=== PATIENT | male | born 1950 | race Caucasian/White ===

== ENCOUNTER 2016-07-25 12:24 | Emergency (ER) | payer BC, OTHER ==
[~2016-07-25] VITALS: Ht 170.2 cm; Wt 94.0 kg
[~2016-07-25 12:24] MED LIST: CINN1CAP2 PO; CYCL10TA6 PO; GLIM2TAB2 PO; HYDR-4383 PO; LOSA100T2 PO; METF1000 PO; MULTTAB58 PO; NAPR220T40 PO; PANT1TAB48 PO; PRAV40TA2 PO
[2016-07-25 12:38] VITALS: TEMP 36.8; Ht 170.2 cm; Wt 94.0 kg
[2016-07-25] MEDS ORDERED: ATOR-24 PO (12:56)
[2016-07-25] MEDS ORDERED: GLIM4TAB2 PO (12:56)
[2016-07-25] MEDS ORDERED: IBUP-1451 PO (12:56)
[2016-07-25] MEDS ORDERED: HYZ/10015 PO (12:56)
[2016-07-25] MEDS ORDERED: MELO7.5T5 PO (12:56)
[2016-07-25] MEDS ORDERED: BACL10TA PO (12:56)
[2016-07-25] MEDS ORDERED: AMLO-114 PO (12:56)
--- NOTE | 2016-07-25 13:53 | DIAGNOSTIC IMAGING REPORT ---
LEFT HIP UNILATERAL 2 VIEWS CLINICAL HISTORY: Left hip and groin pain COMPARISON: None. DISCUSSION: No fractures are visualized. The joint space appears well-preserved for age. There are no erosive or destructive changes. There is a small metallic density within the anterior soft tissues, of uncertain etiology. IMPRESSION: No fractures or destructive lesions identified. Small metallic density within the anterior soft tissues Electronically signed by: Omid Schneider M.D. 07/25/2016 1:52 PM Dictated Date/Time: 07/25/2016 1:51 PM
--- NOTE | 2016-07-25 13:55 | DIAGNOSTIC IMAGING REPORT ---
L-SPINE MIN 4 VIEWS ROUTINE CLINICAL HISTORY: Back pain with left leg radiculopathy COMPARISON STUDY: No previous studies for comparison. FINDINGS: No acute fractures or subluxations are visualized. There are degenerative changes with prominent osteophytes at the L2-3 level. IMPRESSION: 1. No acute fractures or subluxations 2. Degenerative changes most pronounced at the L2-3 level Electronically signed by: Omid Schneider M.D. 07/25/2016 1:53 PM Dictated Date/Time: 07/25/2016 1:52 PM
[2016-07-25] MEDS ORDERED: TRAM-10 PO (14:19)
[2016-07-25 14:30] VITALS: BP 169/91; PULSE 66; O2SAT 96
[2016-07-25] MEDS ORDERED: TRAMADOL HCL 50 MG TAB PO ONE (14:45)
--- NOTE | 2016-07-25 21:02 | EMERGENCY ROOM VISIT NOTE ---
History First contact with patient: 13:07 Chief Complaint: BACK PAIN Stated Complaint: BACK/SIDE PAIN History of Present Illness The patient is a 65 year old white male who presents to the Emergency Room with complaints of pain in his left low back that radiates around to his left groin. Patient states he carried and [place] fence [place] 2 [place]. He did not have any pain at that time. Over the next few days he developed increasing pain in his low back radiating around to the left hip and left groin. He has seen his chiropractor numerous times without improvement. He is also taking oral anti-inflammatories without improvement. No loss of bowel or bladder control. No symptoms on the right. Pain is worse with activity. He states he is just looking for something to relieve the pain so he can go back to work. No trauma to the back. His accompanies him today. Review of Systems REVIEW OF SYSTEM: HEENT: No dizziness, visual problems, hearing loss, or tinnitus. There is no difficulty swallowing and no oral lesions are present. PULMONARY: No cough, shortness of breath, sputum production or hemoptysis. CARDIOVASCULAR: No chest pain, palpitations, shortness of breath or peripheral edema. GASTROINTESTINAL: No diarrhea, constipation, nausea, vomiting, or abdominal pain. GENITOURINARY: No dysuria, frequency, urgency or nocturia. NEUROLOGIC: No weakness, muscle tenderness, epilepsy or history of neurological problems. MUSCULOSKELETAL: No history of joint tenderness/swelling. No history of arthritis or arthralgias. SKIN: No rashes or lesions. PSYCHIATRIC: No history of depression or mental illness. ENDOCRINE: No history of thyroid disorders, or abnormal hair growth. Past Medical/Surgical History Medical history: Significant for diabetes, hypertension, osteoarthritis, and GERD. Previous surgeries: Right shoulder rotator cuff repair Family History Significant for diabetes, heart disease, hypertension, and cancer. Parents are . Social History Smoking Status: Never Smoker Smokeless Tobacco Use: No Alcohol Use: occasionally Drug Use: none Marital Status: Housing Status: lives with family Occupation Status: employed Current/Historical Medications Scheduled Amlodipine (Norvasc), 10 MG PO DAILY Atorvastatin (Lipitor), 40 MG PO DAILY Baclofen (Lioresal), 10 MG PO TID Cinnamon (Cinnamon), 1,000 MG PO DAILY Glimepiride (Glimepiride), 1 TAB PO DAILY Hctz/Losartan (Hyzaar 25MG/100MG), 1 TAB PO DAILY Meloxicam (Mobic), 7.5 MG PO BID17 Metformin Hcl (Glucophage), 1,000 MG PO BID Multiple Vitamin (Multivitamin), 1 TAB PO DAILY Pantoprazole (Protonix), 40 MG PO DAILY Scheduled PRN Ibuprofen Tab (Motrin), 800 MG PO Q8H PRN for Pain Tramadol (Ultram), 1-2 TAB PO Q6H PRN for Pain Allergies Coded Allergies: No Known Allergies (Unverified , 07/25/16) Physical Exam Vital Signs Date Time Temp Pulse Resp B/P Pulse Ox O2 Delivery O2 Flow Rate FiO2 07/25/16 14:30 66 18 169/91 96 Room Air 07/25/16 14:08 63 186/95 97 Room Air 07/25/16 13:59 64 16 189/101 98 Room Air 07/25/16 12:38 36.8 72 18 171/100 97 Room Air Pain Rating (0-10): 8.0 Physical Exam Gen.: Well-developed, well-nourished, elderly white male, in no acute distress. Sitting on a bed. Alert and oriented. Obvious discomfort. Skin:Warm and dry with good turgor. No rashes or lesions. No ecchymosis or erythema. The patient is not diaphoretic. No abrasions. Musculoskeletal: Low back evaluation reveals no obvious asymmetry or deformity. He has focal pain with palpation over the lumbar vertebrae from L3 through S1. Pain extends into the left SI joint and wraps around to the left greater trochanter. He points to the L1-L2 dermatomes as his area of discomfort. I cannot reproduce it by palpating the groin. Supple motion of the left hip. It causes pain at his SI joint but not in the groin. Good internal and external rotation as well as hip flexion. Neurologic: Gross sensation is intact across the left leg by soft touch. DTRs are 2+ at the knee. Medical Decision & Procedures ER Provider Diagnostic Interpretation: Radiographic imaging obtained today of the left hip and lumbar spine was reviewed by me and read by radiology. No evidence of significant arthritic change in the left hip. Patient does have considerable arthritic change and spurring present at L2/L3. Mild foraminal narrowing at L4-L5 and L5-S1. Medications Administered Medications (Trade) Dose Ordered Sig/Adalberto Route Start Time Stop Time Status Last Admin Dose Admin Tramadol HCl (Ultram Tab) 100 mg NOW ONCE PO 07/25/16 14:45 07/25/16 14:46 DC 07/25/16 14:41 100 MG Ultram 2 tablets by mouth ED Course Patient and his were educated regarding today's findings. Conservative care measures were discussed. Radiographic imaging of the hip and lumbar spine were obtained. Patient does have considerable spurring at the L2-L3 level. This would correspond with his area of discomfort on the anterior left thigh. Symptoms also seem to involve the L1 dermatome though there is no significant bony impingement there. He was reassured that I do not think this is coming from his hip. [facility] to discuss any potential interventions. Call Tuesday for an appointment. He was given 2 tablets of Ultram 50 mg while in the ED. Additional prescription was provided. He may use Tylenol every 6 hours for breakthrough pain. Return to the ED for any loss of bowel or bladder control or uncontrolled pain. He was cautioned against any heavy lifting or excessive rotating of the trunk.\ Possibility of degenerative disc disease, nerve root impingement, compression fracture, muscle strain, and spurring were considered, lung others. Impression Primary Impression: Lumbar back pain with radiculopathy affecting left lower extre... Departure Information Dispostion Home / Self-Care Condition FAIR Prescriptions Tramadol (Ultram) 50 Mg Tab 1-2 TAB PO Q6H Y for Pain, #24 TAB For Initial Treatment Prov: Agus Castellanos,P.A. 07/25/16 Referrals Justin Uribe D.O. Forms HOME CARE DOCUMENTATION FORM, TYLENOL USE, IMPORTANT VISIT INFORMATION Patient Instructions My [facility] Additional Instructions [facility] this [facility] for further management and to discuss an MRI Ultram 1-2 tablets every 6 hours as needed for severe pain Add Tylenol 650 mg every 6 hours with food for breakthrough pain Gentle stretching daily Avoid heavy lifting Return to the ED for any acute changes or loss of bowel/bladder control
== END 2016-07-25 14:46 | disposition home or self-care (01) ==
LOC: C.EDB 12:27 → C.EDA 14:46
DX: M54.16 Radiculopathy, lumbar region (principal); E11.9 Type 2 diabetes mellitus without complications; I10 Essential (primary) hypertension; K21.9 Gastro-esophageal reflux disease without esophagitis; M19.90 Unspecified osteoarthritis, unspecified site; Z98.890 Other specified postprocedural states; Z79.899 Other long term (current) drug therapy; Z83.3 Family history of diabetes mellitus; Z82.49 Family history of ischemic heart disease and other diseases of the circulatory system; Z80.9 Family history of malignant neoplasm, unspecified

== ENCOUNTER 2017-01-14 02:04 | Emergency (ER) | payer OTHER ==
[~2017-01-14] VITALS: Ht 172.7 cm; Wt 93.3 kg
[~2017-01-14 02:04] MED LIST changes: +AMLO-114 PO; +ATOR-24 PO; +BACL10TA PO; -CYCL10TA6 PO; -GLIM2TAB2 PO; +GLIM4TAB2 PO; -HYDR-4383 PO; +HYZ/10015 PO; +IBUP-1451 PO; -LOSA100T2 PO; +MELO7.5T5 PO; -NAPR220T40 PO; -PRAV40TA2 PO; +TRAM-10 PO
[2017-01-14 02:10] VITALS: Ht 172.7 cm; Wt 93.3 kg
[2017-01-14] MEDS ORDERED: SODIUM CHLORIDE 0.9% 1000ML 1,000 ML IV STA (02:27)
--- NOTE | 2017-01-14 02:29 | EMERGENCY ROOM VISIT NOTE ---
History Report prepared by Deana: Estrella Moody Under the Supervision of: Dr. Denis Moya M.D. First contact with patient: 02:12 Chief Complaint: URINARY SYMPTOMS Stated Complaint: UTI SYMPTOMS History of Present Illness The patient is a 66 year old male who presents to the Emergency Room with complaints of persistent urinary symptoms that started a couple of days ago. The patient rates his pain a 7/10 in severity. The patient states that he hurt his back a week ago and ever since he has been having bowel and urinary problems. The patient notes that he has a history of back problems and the pain he is experiencing now is normal. He reports that since the back injury 1 week ago, he has not had many bowel movements. He states that his last bowel movement was 3 hours ago but "it was not very much". He notes that he experiences burning when urinating. The patient states that he feels pressure on his pelvis. The patient denies having a history of prostate problems. The patient notes that he typically gets up 2-3 times at night to urinate. He denies having a fever, nausea, vomiting, leg weakness, or chills. He also denies any loss of sensation around rectum. Source of History: patient Onset: 1 week ago Position: other (urinary/bowel symptoms) Symptom Intensity: 7/10 Quality: burning, other (constipation) Timing: other (persistent) Associated Symptoms: No fevers, No chills, No nausea, No vomiting Note: The patient denies leg weakness. Review of Systems See HPI for pertinent positives & negatives. A total of 10 systems reviewed and were otherwise negative. Past Medical & Surgical Past history of diabetes, high blood pressure, stomach problems, and ulcers. Family History Diabetes mellitus FHx: cancer FHx: heart disease Hypertension Social History Smoking Status: Never Smoker Alcohol Use: occasionally Drug Use: none Marital Status: Housing Status: lives with family Occupation Status: employed Current/Historical Medications Scheduled Amlodipine (Norvasc), 10 MG PO DAILY Atorvastatin (Lipitor), 40 MG PO DAILY Baclofen (Lioresal), 10 MG PO TID Cinnamon (Cinnamon), 1,000 MG PO DAILY Ciprofloxacin Hcl (Cipro), 500 MG PO BID Glimepiride (Glimepiride), 4 MG PO DAILY Hctz/Losartan (Hyzaar 25MG/100MG), 1 TAB PO DAILY Meloxicam (Mobic), 7.5 MG PO BID17 Metformin Hcl (Glucophage), 1,000 MG PO BID Multiple Vitamin (Multivitamin), 1 TAB PO DAILY Pantoprazole (Protonix), 40 MG PO DAILY Scheduled PRN Ibuprofen Tab (Motrin), 800 MG PO Q8H PRN for Pain Oxycodone Immediate Rel Tab (Roxicodone Ir), 1-2 TAB PO Q4H PRN for Severe Pain Allergies Coded Allergies: No Known Allergies (Unverified , 01/14/17) Physical Exam Vital Signs Date Time Temp Pulse Resp B/P (MAP) Pulse Ox O2 Delivery O2 Flow Rate FiO2 01/14/17 06:13 81 18 154/97 98 01/14/17 04:36 36.9 84 18 180/104 97 Room Air 01/14/17 03:32 77 18 165/92 99 Room Air 01/14/17 02:10 36.4 82 18 188/85 97 Room Air Physical Exam GENERAL: Patient is uncomfortable appearing and in mild distress. HEENT: No acute trauma, normocephalic atraumatic, mucous membranes moist, no nasal congestion, no scleral icterus. NECK: No stridor, no adenopathy, no meningismus, trachea is midline. LUNGS: No dyspnea. Clear to auscultation and equal bilaterally. No wheeze, no rhonchi. HEART: Regular rate and rhythm. No murmurs, rubs, gallops appreciated. ABDOMEN: Vague tenderness to suprapubic region. BACK: No midline tenderness, no CVA tenderness EXTREMITIES: Normal motion all extremities, no cyanosis, no edema. NEUROLOGIC: Alert and oriented, no acute motor or sensory deficits, no focal weakness, cranial nerves grossly intact. SKIN: No rash, no jaundice, no diaphoresis. Bedside Ultrasound: 50-100 cc of fluid within bladder. Questionable bladder wall thickening. Large mass of posterior bladder vs enlarged prostate. Medical Decision & Procedures ER Provider Diagnostic Interpretation: CT ABDOMEN & PELVIS With Contrast: Comparison: Noncontrast CT abdomen pelvis 07/19/2009 Diffusely enlarged prostate gland, invaginating into the base of the bladder. This is new from prior. Considerations include prostatitis and benign prostatic hypertrophy. Redemonstration of calcification of a tubular structure arising off what is presumed to be the gallbladder. This may represent dystrophic calcification inside an unusual phrygian cap. There is no pericholecystic inflammatory changes. The overall appearance is stable when compared to 07/19/2009. Normal appendix visualized. No bowel obstruction. Liver, spleen, pancreas, and kidneys are unremarkable. Mild atherosclerosis. Degenerative changes of spine. Laboratory Results 01/14/17 02:40 Red Blood Count 4.47, Mean Corpuscular Volume 90.2, Mean Corpuscular Hemoglobin 31.1, Mean Corpuscular Hemoglobin Concent 34.5, Mean Platelet Volume 10.3, Neutrophils (%) (Auto) 71.1, Lymphocytes (%) (Auto) 15.1, Monocytes (%) (Auto) 11.3, Eosinophils (%) (Auto) 1.8, Basophils (%) (Auto) 0.2, Neutrophils # (Auto ) 7.94, Lymphocytes # (Auto) 1.68, Monocytes # (Auto) 1.26, Eosinophils # (Auto ) 0.20, Basophils # (Auto) 0.02 01/14/17 02:40 Test 01/14/17 02:14 01/14/17 02:40 01/14/17 02:56 Urine Color YELLOW Urine Appearance CLEAR (CLEAR) Urine pH 7.0 (4.5-7.5) Urine Specific [place] 1.024 (1.000-1.030) Urine Protein NEG (NEG) Urine Glucose (UA) 3+ (NEG) Urine Ketones NEG (NEG) Urine Occult Blood NEG (NEG) Urine Nitrite NEG (NEG) Urine Bilirubin NEG (NEG) Urine Urobilinogen NEG (NEG) Urine Leukocyte Esterase NEG (NEG) Urine WBC (Auto) 10-30 /hpf (0-5) Urine RBC (Auto) 0-4 /hpf (0-4) Urine Hyaline Casts (Auto) 0 /lpf (0-5) Urine Epithelial Cells (Auto) 0-5 /lpf (0-5) Urine Bacteria (Auto) 2+ (NEG) White Blood Count 11.16 K/uL (4.8-10.8) Red Blood Count 4.47 M/uL (4.7-6.1) Hemoglobin 13.9 g/dL (14.0-18.0) Hematocrit 40.3 % (42-52) Mean Corpuscular Volume 90.2 fL (80-100) Mean Corpuscular Hemoglobin 31.1 pg (25-34) Mean Corpuscular Hemoglobin Concent 34.5 g/dl (32-36) Platelet Count 240 K/uL (130-400) Mean Platelet Volume 10.3 fL (7.4-10.4) Neutrophils (%) (Auto) 71.1 % Lymphocytes (%) (Auto) 15.1 % Monocytes (%) (Auto) 11.3 % Eosinophils (%) (Auto) 1.8 % Basophils (%) (Auto) 0.2 % Neutrophils # (Auto) 7.94 K/uL (1.4-6.5) Lymphocytes # (Auto) 1.68 K/uL (1.2-3.4) Monocytes # (Auto) 1.26 K/uL (0.11-0.59) Eosinophils # (Auto) 0.20 K/uL (0-0.5) Basophils # (Auto) 0.02 K/uL (0-0.2) RDW Standard Deviation 40.0 fL (36.4-46.3) RDW Coefficient of Variation 12.3 % (11.5-14.5) Immature Granulocyte % (Auto) 0.5 % Immature Granulocyte # (Auto) 0.06 K/uL (0.00-0.02) Est Creatinine Clear Calc Drug Dose 73.9 ml/min Estimated GFR () 83.2 Estimated GFR (Non- 71.8 BUN/Creatinine Ratio 17.2 (10-20) Calcium Level 9.3 mg/dl (8.5-10.1) C-Reactive Protein 7.08 mg/dl (0-0.29) Bedside Hemoglobin 12.9 g/dl (14.0-18.0) Bedside Hematocrit 38 % (42-52) Bedside Sodium 134 mEq/L (135-144) Bedside Potassium 3.4 mEq/L (3.3-5.0) Bedside Chloride 93 mEq/L (101-112) Bedside Total CO2 28 mEq/l (24-31) Anion Gap 18.0 mmol/L (16-25) Bedside Blood Urea Nitrogen 19 mg/dl (7-18) Bedside Creatinine 0.9 mg/dl (0.6-1.3) Bedside Glucose (other) 227 mg/dl (70-99) Bedside Ionized Calcium ([place]) 1.21 mmol/l (1.12-1.32) Laboratory results as reviewed by me. Medications Administered Medications (Trade) Dose Ordered Sig/Adalberto Route Start Time Stop Time Status Last Admin Dose Admin Sodium Chloride 1,000 ml @ 999 mls/hr Q1H1M STAT IV 01/14/17 02:27 01/14/17 03:27 DC 01/14/17 02:27 999 MLS/HR Hydromorphone HCl (Dilaudid Inj) 1 mg NOW STAT IV 01/14/17 03:48 01/14/17 03:49 DC 01/14/17 03:53 1 MG Ceftriaxone Sodium (Rocephin Inj) 1 gm NOW STAT IV 01/14/17 03:48 01/14/17 03:49 DC 01/14/17 03:54 1 GM Hydromorphone HCl (Dilaudid Inj) 1 mg NOW STAT IV 01/14/17 04:17 01/14/17 04:18 DC 01/14/17 04:35 1 MG Ciprofloxacin (Cipro Tab) 500 mg NOW STAT PO 01/14/17 05:36 01/14/17 05:38 DC 01/14/17 06:03 500 MG Oxycodone HCl (Roxicodone Immediate Rel 5MG Home Pack) 1 homepack UD ONCE PO 01/14/17 05:45 01/14/17 05:46 DC 01/14/17 06:03 1 HOMEPACK ED Course 0212: The patient was evaluated in room B10. A complete history and physical exam was performed. 0227: Sodium Chloride 1000 ml @ 999 mls/hr IV. 0348: Rocephin Inj 1 gm IV, Dilaudid Inj 1 mg IV. 0350: I reassessed the patient. He has acute urinary retention. He is unable to urinate. Increasing palpable mass suprapubic. He is agreeable to folly. 0417: Dilaudid Inj 1 mg IV. 0536: Cipro Tab 500 mg PO. 0545:Oxycodone HCI 1 homepack PO. 0546: Reevaluated the patient. Discussed results and discharge instructions: He verbalized understanding and agreement. The patient is ready for discharge. Medical Decision 66 yr old male with feeling of pelvic pressure, constipation and urinary hesitancy/burning over last few day. Essentially in retention though after significant forcing was able to urinate just prior to arrival. Vitals stable other than hypertension (advised follow up with PCP). With unusual symptoms, mass on US and urinary symptoms felt CT imaging reasonable. CT consistent with prostatitis. I did discuss evidence of gallbladder stones and cyst which he will discuss with his pcp and then possibly gen surg. For his prostatitis he is really just unable to urinate properly and I felt dixon indicated. Given IV Rocephin during this procedure. Will place on BID Cipro 500mg for 14 days with instructions that he may require 6 weeks of treatment which he should discuss with PCP/Urology. No evidence of sepsis and he is feeling much improved. Did require IV dilaudid for pain control and clearly uncomfortable. Long discussion on risks and restrictions narcotics. Advised Colace use. Reviewed at length symptoms requiring RTED for further evaluation. Stable at time of discharge. Medication Reconcilliation Current Medication List: was personally reviewed by me Blood Pressure Screening Patient's blood pressure: Elevated blood pressure Blood pressure disposition: Elevated BP felt to be situational, Referred to PCP Impression Primary Impression: Acute bacterial prostatitis Additional Impression: Acute urinary retention Scribe Attestation The scribe's documentation has been prepared under my direction and personally reviewed by me in its entirety. I confirm that the note above accurately reflects all work, treatment, procedures, and medical decision making performed by me. Departure Information Dispostion Home / Self-Care Prescriptions Oxycodone Immediate Rel Tab (ROXICODONE IR) 5 Mg Tab 1-2 TAB PO Q4H Y for Severe Pain, #15 TAB Prov: Denis Moya M.D. 01/14/17 Ciprofloxacin Hcl (CIPRO) 500 Mg Tab 500 MG PO BID for 14 Days, #28 TAB Prov: Denis Moya M.D. 01/14/17 Referrals Apolinar Wayne D.OMomo (PCP) Elizabeth Wilkerson MD Patient Instructions My [facility], Prostatitis Bacterial Additional Instructions We will initiate a 2 week course of Cipro to treat your infection. Often times a full 6 weeks of antibiotic therapy is indicated, thus you should discuss whether to do a full course with your primary care provider or Urologist. Please follow up with Urologist in 3-5 days for Dixon removal. If unable to do so you should be seen by your primary provider and if this is not possible return to ED for repeat evaluation. You should regardless be seen by a Urologist and Primary Provider in the near future. You have received a narcotic pain medication prescription. These medications may cause drowsiness and should not be used with other sedative medications. Do not drive, drink alcohol, perform dangerous activities, nor make important decisions after taking these medications. exterminator helper termite use or inappropriate use may lead to addiction. Use of a stool softener is advised. Problem Qualifiers
[2017-01-14] MEDS ORDERED: OPTIRAY 320 IV PRN (02:45)
[2017-01-14 02:55] LABS: BASO % 0.2 %; BASO ABS # 0.02 K/uL (0-0.2); COMPLETE YES; EOS % 1.8 %; HEMATOCRIT 40.3 % (42-52); IG% 0.5 %; LYMPH % 15.1 %; LYMPH ABS # 1.68 K/uL (1.2-3.4); MEAN CELL VOLUME 90.2 fL (80-100); MEAN CORPUSCULAR HEMOGLOBIN 31.1 pg (25-34); MEAN CORPUSCULAR HGB CONC 34.5 g/dl (32-36); MEAN PLATELET VOLUME 10.3 fL (7.4-10.4); MONO % 11.3 %; NEUT % 71.1 %; PLATELET COUNT 240 K/uL (130-400); RED BLOOD COUNT 4.47 M/uL (4.7-6.1); WHITE BLOOD COUNT 11.16 K/uL (4.8-10.8)
[2017-01-14 03:07] LABS: ISTAT CREATININE 0.9 mg/dl (0.6-1.3); ISTAT HEMOGLOBIN 12.9 g/dl (14.0-18.0); ISTAT IONIZED CALCIUM 1.21 mmol/l (1.12-1.32)
[2017-01-14 03:12] LABS: BUN/CREATININE RATIO 17.2 (10-20); C-REACTIVE PROTEIN 7.08 mg/dl (0-0.29); CALCIUM 9.3 mg/dl (8.5-10.1); CREATININE 1.06 mg/dl (0.60-1.40); POTASSIUM 3.4 mmol/L (3.5-5.1)
[2017-01-14 03:33] LABS: MANUAL MICROSCOPIC REQUIRED? NO; REVIEW REQ? NO; URINE APPEARANCE CLEAR (CLEAR); URINE BILIRUBIN NEG (NEG); URINE COLOR YELLOW; URINE EPITHELIAL CELL AUTO 0-5 /lpf (0-5); URINE NITRITE NEG (NEG); URINE SPECIFIC GRAVITY 1.024 (1.000-1.030); UROBILINOGEN NEG (NEG); ZZUR CULT IF INDIC CLEAN CATCH YES
[2017-01-14] MEDS ORDERED: CEFTRIAXONE SOD INJ 1 GM ADDVIAL IV STA (03:48)
[2017-01-14] MEDS ORDERED: HYDROmorphone INJ 1 MG/ML SYR IV STA ×2 (03:48→04:17)
[2017-01-14 04:36] VITALS: TEMP 36.9
[2017-01-14] MEDS ORDERED: CIPROFLOXACIN 500 MG TAB PO STA (05:36)
[2017-01-14] MEDS ORDERED: CIPR-255 PO (05:42)
[2017-01-14] MEDS ORDERED: OXYC1TAB3 PO (05:42)
[2017-01-14] MEDS ORDERED: OXYCODONE IR HOME PACK PO ONE (05:45)
[2017-01-14 06:13] VITALS: BP 154/97; PULSE 81; O2SAT 98
--- NOTE | 2017-01-14 07:44 | DIAGNOSTIC IMAGING REPORT ---
ABD/PELVIS IV CONTRAST ONLY HISTORY: 66 years-old Male pelvic discomfort, inability to urinate/bowel. ?Prostatitis acute pelvic pain with inability to urinate. Concern for prostatitis. Initial exam. COMPARISON: CT 07/19/2009 TECHNIQUE: Multiple axial CT images of the abdomen and pelvis were obtained following the intravenous administration of 93 mL Optiray 320. A dose lowering technique was used consistent with the principals of KATE. FINDINGS: Lung bases are generally clear with only minimal bibasilar atelectasis. There is no pneumoperitoneum. Imaged inferior cardiac chambers are mildly enlarged with coronary arterial calcifications. The liver, spleen, pancreas and adrenal glands are within normal limits. Cystic structure within the gallbladder fossa is again seen, 4.0 x 3.4 cm which appears similar to slightly decreased in size from comparison study. Gallstones are noted within the region of the collapsed gallbladder fundus and mid gallbladder lumen. These findings appear similar from study 07/19/2009. No intrahepatic biliary ductal dilation or inflammatory stranding to suggest acute cholecystitis. Kidneys and ureters are within normal limits. No renal calculi or hydronephrosis. Prostate is enlarged measuring up to 5.4 cm transversely with heterogeneous appearance of the parenchyma containing coarse central prosthetic calcifications extending superiorly into the base of the urinary bladder. Findings have progressed from prior study. Small fat filled left inguinal hernia. Moderate atherosclerosis of the abdominal aorta. No bulky adenopathy. Mildly prominent 9 mm right common iliac lymph node on image 277 series 3 is nonspecific and likely reactive. There is no bowel obstruction or focal bowel wall thickening. A few scattered diverticula are noted. No evidence of acute diverticulitis. Appendix is normal. Soft tissues are unremarkable. Bones appear intact. IMPRESSION: 1. Enlarged heterogeneous appearance of the prostate containing central coarse dystrophic calcifications suggests benign prostatic hyperplasia. Superimposed prostatitis would be difficult to exclude. Correlate with laboratory analysis. 2. Abnormal appearance of the gallbladder appears stable from 07/19/2009 with gallstones seen within an the collapsed portions of the gallbladder fundus and mid body suggesting a possible phrygian cap. No CT evidence of acute cholecystitis. 3. Normal CT appearance of the appendix. The above report was generated using voice recognition software. It may contain grammatical, syntax or spelling errors. Electronically signed by: Timbo Flores M.D. 01/14/2017 7:43 AM Dictated Date/Time: 01/14/2017 7:33 AM
== END 2017-01-14 06:15 | disposition home or self-care (01) ==
LOC: C.EDB 02:05
DX: N41.0 Acute prostatitis (principal); R33.9 Retention of urine, unspecified; E11.9 Type 2 diabetes mellitus without complications; I10 Essential (primary) hypertension; Z87.19 Personal history of other diseases of the digestive system; Z79.84 Long term (current) use of oral hypoglycemic drugs; Z79.899 Other long term (current) drug therapy; Z83.3 Family history of diabetes mellitus; Z80.9 Family history of malignant neoplasm, unspecified; Z82.49 Family history of ischemic heart disease and other diseases of the circulatory system

== ENCOUNTER 2017-07-01 12:09 | Emergency (ER) | payer OTHER ==
[~2017-07-01] VITALS: Ht 170.2 cm; Wt 93.6 kg
[~2017-07-01 12:09] MED LIST changes: +CIPR-255 PO; +OXYC1TAB3 PO; +PANT1TAB3 PO; -PANT1TAB48 PO; -TRAM-10 PO
[2017-07-01 12:17] VITALS: TEMP 36.3; Ht 170.2 cm; Wt 93.6 kg
[2017-07-01] MEDS ORDERED: KETOROLAC TROMETHAMINE 60 MG/2 ML VIAL IM STA (13:20)
[2017-07-01] MEDS ORDERED: OXYC-57 PO (13:27)
[2017-07-01] MEDS ORDERED: BACL1TAB PO (13:27)
[2017-07-01] MEDS ORDERED: MELO-84 PO (13:27)
[2017-07-01] MEDS ORDERED: METH4PAK PO (13:27)
--- NOTE | 2017-07-01 13:29 | EMERGENCY ROOM VISIT NOTE ---
ED Visit Note First contact with patient: 12:31 CHIEF COMPLAINT: Low back pain radiating into the right leg 1 day HISTORY OF PRESENT ILLNESS: Patient is a 66-year-old male who presents emergency department for evaluation of low back pain radiating into his right leg that started acutely yesterday. Patient does have a history of radicular low back pain, he states that he sees a chiropractor fairly regularly for back health maintenance. He admits that he has been ill with an upper respiratory illness, and was seen by his primary care doctor yesterday for this. He has been doing a lot of coughing, and is about finished with a prednisone taper. He was placed on doxycycline yesterday. He states that he was leaning over the sink washing his hands, when he felt a sharp pain in the midline of his low back , that spread across the low back. The pain has progressively begun to radiate into the right buttock, laterally over the right hip, into the right groin and down the right thigh. There is no numbness, tingling or weakness in the leg. He has begun walking with a cane due to his symptoms. He reports a similar episode of pain about a year ago when he was installing multiple fence posts on his property. Patient has tried ice, and a massage chair. He has not taken any medication for discomfort as of yet. He also has an [id number] stim machine but he has not used it. He denies any bowel or bladder incontinence. No falls or recent direct trauma. He rates his pain as 7/10. REVIEW OF SYSTEMS: Review of systems as per HPI. All other systems reviewed were negative. 10 systems reviewed. PMH: Electronic medical records are reviewed and summarized as above/below. See Problem List. SOCIAL HISTORY: Patient lives at home with his . Employed.. PHYSICAL EXAM: Vital Signs: Reviewed Nurse's notes. CONSTITUTIONAL: Patient is an uncomfortable appearing 66-year-old male who is awake and alert and sitting on the edge of the gurney in mild distress. There is significant discomfort with position changes. CARDIOVASCULAR: Regular rate and rhythm, with normal S1 and S2, no murmur or gallop or rub is heard. No carotid bruits auscultated. No JVD. Peripheral pulses easily palpable. RESPIRATORY: Breath sounds equal and clear to auscultation without wheezes, rales, or rhonchi heard. Full and equal chest expansion without accessory muscle use or retractions. ABDOMEN: Bowel sounds are present. Abdomen is soft, nontender and nondistended. INTEGUMENTARY: No lesions or rash, normal skin turgor. LYMPH: No lymphadenopathy. SPINE: Examination of the patient's back does not demonstrate any ecchymosis, abrasions or outward signs of trauma. No erythema, increased warmth or induration. Patient has very low midline discomfort to palpation over the low lumbar spine. There is no pain over the SI joint or the sciatic notch. He has increased pain with range of motion including rotation and flexion. EXTREMITIES: Leg lengths are symmetrical. Negative logroll bilaterally. Normal strength including dorsi-flexion and plantar flexion of the great toes and ankles and flexion and extension of the knees and flexion of the hips. Negative seated bilateral straight leg raise testing. Lower extremity DTRs are equal and symmetrical bilaterally. Distal pulses are easily palpable. Sensation light touch is intact over the lower extremities bilaterally. EMERGENCY DEPARTMENT COURSE: The patient was seen and assessed as above. His old records are reviewed. He does have a history of low back pain, with radiculopathy, he had x-rays here about a year ago which showed degenerative changes at the L2-L3 region. He has suffered an acute exacerbation of his pain. He does not have any physical exam findings are consistent with acute cord compression or cauda equina syndrome. He does not have any mechanism of injury consistent with trauma and therefore it was not felt that radiographs were indicated at this time. The patient was treated with IM Toradol and Decadron here. He will be placed on a course of prednisone, was given Percocet , baclofen, and Mobic to use for pain. He was advised that if his symptoms are not improving with this regimen he should follow-up with his primary care provider for further care and evaluation. He expressed understanding of this and was agreeable. The patient rated his pain an 8/10 at discharge. MEDICAL DECISION MAKING: I do not suspect acute compression syndrome, cauda equina, diskitis, epidural abscess, hematoma or neurovascular compromise. Medication reconciliation: I attest that I have personally reviewed the patient' s current medication list. Blood pressure screening: Patient was found to have a slightly elevated blood pressure due to circumstances. I do not believe that the patient requires hypertension monitoring. Patient was reviewed in the [facility] Prescription Drug Monitoring Program, and there were no red flags noted. Problem List Medical Problems: (1) Acute bacterial prostatitis Status: Resolved (2) Acute urinary retention Status: Resolved (3) Dyslipidemia Status: Chronic (4) Gastro-Esophageal Reflux Disease Without Esophagitis Status: Chronic (5) Hypertension Nos Status: Chronic (6) Lumbar back pain with radiculopathy affecting left lower extremity Status: Resolved (7) Lumbar back pain with radiculopathy affecting left lower extremity Status: Resolved (8) Type 2 Diabetes Mellitus Without Complications Status: Chronic Current/Historical Medications Scheduled Amlodipine (Norvasc), 10 MG PO DAILY Atorvastatin (Lipitor), 40 MG PO DAILY Baclofen (Lioresal), 10 MG PO TID Cinnamon (Cinnamon), 1,000 MG PO DAILY Ciprofloxacin Hcl (Cipro), 500 MG PO BID Glimepiride (Glimepiride), 4 MG PO DAILY Hctz/Losartan (Hyzaar 25MG/100MG), 1 TAB PO DAILY Meloxicam (Mobic), 7.5 MG PO BID17 Meloxicam (Mobic), 15 MG PO DAILY Metformin Hcl (Glucophage), 1,000 MG PO BID Methylprednisolone (Medrol Dosepak), 0 PO DAILY Multiple Vitamin (Multivitamin), 1 TAB PO DAILY Pantoprazole (Protonix), 40 MG PO DAILY Scheduled PRN Baclofen (Lioresal), 10 MG PO TID PRN for Muscle Spasms Ibuprofen Tab (Motrin), 800 MG PO Q8H PRN for Pain Oxycodone Immediate Rel Tab (Roxicodone Ir), 1-2 TAB PO Q4H PRN for Severe Pain Oxycodone/Acetaminophen 5MG/325MG (Percocet 5MG/325MG), 1-2 TABS PO Q4 PRN for Pain Allergies Coded Allergies: No Known Allergies (Unverified , 01/14/17) Vital Signs Date Time Temp Pulse Resp B/P (MAP) Pulse Ox O2 Delivery O2 Flow Rate FiO2 07/01/17 14:14 89 16 147/89 99 07/01/17 12:17 36.3 84 20 159/94 98 Room Air Medications Administered Medications (Trade) Dose Ordered Sig/Adalberto Route Start Time Stop Time Status Last Admin Dose Admin Ketorolac Tromethamine (Toradol Inj) 60 mg NOW STAT IM 07/01/17 13:20 07/01/17 13:21 DC 07/01/17 14:04 60 MG Dexamethasone Sodium Phosphate (Dexamethasone Inj Pf) 10 mg NOW ONCE IM 07/01/17 13:30 07/01/17 13:31 DC 07/01/17 14:04 10 MG Departure Information Impression Primary Impression: Low back pain Prescriptions Methylprednisolone (MEDROL DOSEPAK) 4 Mg Pepito 0 PO DAILY, #1 PKT Once daily as directed. Prov: Anna Valencia PA 07/01/17 Baclofen (LIORESAL) 10 Mg Tab 10 MG PO TID Y for Muscle Spasms, #30 TAB Prov: Anna Valencia PA 07/01/17 Meloxicam (MOBIC) 15 Mg Tab 15 MG PO DAILY, #30 TAB Prov: Anna Valencia PA 07/01/17 Oxycodone/Acetaminophen 5MG/325MG (PERCOCET 5MG/325MG) Tab 1-2 TABS PO Q4 Y for Pain, #30 TAB For Initial Treatment Prov: Anna Valencia PA 07/01/17 Referrals Apolinar Wayne D.OMomo (PCP) Patient Instructions [facility] Additional Instructions Stop the remainder of your Prednisone from your physician. Medrol Dosepak: Once daily until the prescription is finished. It is best to take this earlier in the day as some patients note occasional difficulty falling asleep when taken in the late evening. Baclofen 10 mg: Take 1 pills 3 times daily as needed for muscle spasms. Avoid alcohol, operating machinery or dangerous equipment, working on ladders or roofs , DRIVING, or situations where being under the influence may be dangerous. Oxycodone/Acetaminophen (Percocet) 5/325mg: Take 1-2 pills every four hours for breakthrough pain. Avoid alcohol, operating machinery or dangerous equipment, working on ladders or roofs, DRIVING, or situations where being under the influence may be dangerous. It is recommended to use an [id number] stool softener such as Colace, 100mg twice daily while taking this medication to avoid constipation. After you have completed the Medrol Dosepak start Mobic 15 mg 1 tablet daily with food, take this regularly for at least 2 weeks. Rest and avoid heavy lifting until your symptoms resolve and then gradually return to full activity. A good rule of thumb is if it hurts your back to perform a certain activity, then it should be avoided until you are healthy again. A heating pad, warm compresses, or a hot shower may help with tight muscles and can be done several times a day as needed. Continue current medications. Return to the ER immediately for any numbness, tingling, severe pain, loss of control of your bowels or bladder, inability to walk, or as needed. Follow up with your primary care physician within 3-5 days for a recheck of your current condition.
[2017-07-01] MEDS ORDERED: DEXAMETHASONE **PF** INJ 10 MG/ML VIAL IM ONE (13:30)
[2017-07-01 14:14] VITALS: BP 147/89; PULSE 89; O2SAT 99
== END 2017-07-01 14:12 | disposition home or self-care (01) ==
LOC: C.EDB 12:10 → C.EDD 14:12
DX: M54.5 Low back pain (principal); E78.5 Hyperlipidemia, unspecified; K21.9 Gastro-esophageal reflux disease without esophagitis; I10 Essential (primary) hypertension; E11.9 Type 2 diabetes mellitus without complications; Z79.84 Long term (current) use of oral hypoglycemic drugs; Z79.899 Other long term (current) drug therapy

== ENCOUNTER 2017-07-11 09:55 | Inpatient (IN) | payer OTHER ==
[~2017-07-11] VITALS: Ht 170.2 cm; Wt 92.2 kg
[~2017-07-11 09:55] MED LIST changes: +BACL1TAB PO; +MELO-84 PO; +METH4PAK PO; +OXYC-57 PO
[2017-07-11] MEDS ORDERED: TAMS0.4C38 PO (10:16)
[2017-07-11] MEDS ORDERED: FINA5TAB PO (10:16)
[2017-07-11] MEDS ORDERED: SODIUM CHLORIDE 0.9% 1000ML 500 ML IV STA (10:26)
[2017-07-11 10:42] LABS: BASO % 0.1 %; BASO ABS # 0.01 K/uL (0-0.2); EOS % 0.5 %; EOS ABS # 0.07 K/uL (0-0.5); HEMATOCRIT 43.7 % (42-52); HEMOGLOBIN 15.6 g/dL (14.0-18.0); IG# 0.11 K/uL (0.00-0.02); LYMPH % 10.6 %; LYMPH ABS # 1.41 K/uL (1.2-3.4); MEAN CELL VOLUME 89.4 fL (80-100); MEAN CORPUSCULAR HEMOGLOBIN 31.9 pg (25-34); MEAN CORPUSCULAR HGB CONC 35.7 g/dl (32-36); MEAN PLATELET VOLUME 11.5 fL (7.4-10.4); MONO % 7.4 %; MONO ABS # 0.98 K/uL (0.11-0.59); NEUT % 80.6 %; NEUT ABS # 10.75 K/uL (1.4-6.5); PLATELET COUNT 142 K/uL (130-400); RED CELL DISTRIBUTION WIDTH CV 12.6 % (11.5-14.5); RED CELL DISTRIBUTION WIDTH SD 40.9 fL (36.4-46.3); WHITE BLOOD COUNT 13.33 K/uL (4.8-10.8)
[2017-07-11] MEDS ORDERED: OPTIRAY 320 IV PRN (10:45)
[2017-07-11 10:46] LABS: INR 1.1 (0.9-1.1); PTT PATIENT 27.9 SECONDS (21.0-31.0)
[2017-07-11 10:56] LABS: ALBUMIN 3.1 gm/dl (3.4-5.0); ALT/SGPT 78 U/L (12-78); AST/SGOT 41 U/L (15-37); BLOOD UREA NITROGEN 24 mg/dl (7-18); CALCIUM 8.4 mg/dl (8.5-10.1); CARBON DIOXIDE 21 mmol/L (21-32); CREATININE 1.61 mg/dl (0.60-1.40); GLUCOSE 536 mg/dl (70-99); POTASSIUM 4.1 mmol/L (3.5-5.1); SODIUM 132 mmol/L (136-145); TOTAL PROTEIN 6.6 gm/dl (6.4-8.2)
[2017-07-11] MEDS ORDERED: NovoLIN-R INSULIN PER UNIT CHARGE IV STA (10:58)
--- NOTE | 2017-07-11 11:03 | DIAGNOSTIC IMAGING REPORT ---
SINGLE VIEW CHEST CLINICAL HISTORY: Dyspnea. FINDINGS: An AP, portable, upright chest radiograph is obtained. No prior studies are available for comparison at the time of dictation. The examination is degraded by portable technique and patient rotation. The cardiomediastinal silhouette is unremarkable. The lungs and pleural spaces are clear. No pneumothorax is seen. The bony thorax is grossly intact. IMPRESSION: No acute cardiopulmonary abnormality. Electronically signed by: Bradley Jensen M.D. 07/11/2017 11:02 AM Dictated Date/Time: 07/11/2017 11:01 AM
[2017-07-11 11:04] LABS: ALKALINE PHOSPHATASE 115 U/L (45-117)
[2017-07-11] MEDS ORDERED: SODIUM CHLORIDE 0.9% 500ML 500 ML IV STA (11:21)
[2017-07-11] MEDS ORDERED: PIPERACILLIN/TAZOBACTAM 4.5 GM/100ML D5W IV STA (11:46)
--- NOTE | 2017-07-11 12:08 | DIAGNOSTIC IMAGING REPORT ---
CT ANGIOGRAM OF THE CHEST CLINICAL HISTORY: Dyspnea. COMPARISON STUDY: Chest x-ray dated 07/11/2017. Abdominal CT dated 07/19/2009. TECHNIQUE: Following the IV administration of 107 cc of Optiray 320, CT angiogram of the chest was performed from the upper abdomen to the thoracic inlet utilizing the pulmonary embolus protocol. Images are reviewed in the axial, sagittal, and coronal planes. 3-D MIPS images are created and assessed. IV contrast was administered without complication. A dose lowering technique was utilized adhering to the principles of ALARA. CT DOSE: 563.59 mGy.cm FINDINGS: Thyroid: Imaged portions of the thyroid gland are normal in size and attenuation. Thoracic aorta: There is mild atherosclerotic calcification of the thoracic aorta, which is normal in caliber and demonstrates standard 3-vessel arch anatomy. No dissection is seen. Pulmonary vasculature: The pulmonary trunk is normal in caliber. There is a saddle pulmonary embolus with extensive bilateral pulmonary emboli. Thrombus is seen within the left main pulmonary artery extended into the left upper and left lower lobe pulmonary arteries into segmental and subsegmental branches. Thrombus is also seen extending into the right upper, right middle, and right lower lobe pulmonary arteries into segmental and subsegmental branches. Heart: The heart is top normal in size and there is trace pericardial effusion. Reflux of contrast into the IVC and hepatic veins is nonspecific and can be seen in the setting of cardiac dysfunction. Lungs and pleural spaces: Evaluation of the lung parenchyma is degraded by respiratory motion artifact. A fat-containing Bochdalek hernia is seen at the left lung base. No airspace consolidation or pleural effusion is identified. A 5 mm pulmonary nodule seen at the left lung base image #22. A 3 mm left lower lobe nodule is seen on image #28. These have been present dating back to 2009 and are of doubtful significance. The trachea and central airways are patent. Mediastinum: There is no mediastinal lymphadenopathy. Janell: Clear. Axillae: There is no axillary lymphadenopathy. Upper abdomen: There is a small hiatal hernia. The visualized upper abdominal viscera is otherwise within normal limits. Skeletal structures: No lytic or blastic bony lesions are seen. IMPRESSION: 1. Saddle pulmonary embolus with extensive bilateral pulmonary emboli as above. 2. There is no airspace consolidation or pleural effusion. 3. Reflux of contrast into the IVC and hepatic veins is nonspecific and can be seen in the setting of cardiac dysfunction. Electronically signed by: Bradley Jensen M.D. 07/11/2017 12:06 PM Dictated Date/Time: 07/11/2017 12:01 PM
[2017-07-11] MEDS ORDERED: HEPARIN SOD (PORCINE) 1000 UNIT/ML 10 ML VIAL IV STA (12:56)
[2017-07-11] MEDS ORDERED: ICU ELECTROLYTE REPLACEMENT PROTOCOL PRN (13:30)
[2017-07-11] MEDS ORDERED: ICU PROTOCOL FOR HYPERGLYCEMIA PRN (13:30)
[2017-07-11] MEDS ORDERED: ACETAMINOPHEN 325 MG TAB PO PRN (13:30)
[2017-07-11] MEDS: HEPARIN 25,000 UNIT/500ML D5W 500 ML IV SCH (13:38)
[2017-07-11 13:40] LABS: INFLUENZA A PCR Neg for Influ A (NEG); INFLUENZA B PCR Neg for Influ B (NEG)
[2017-07-11] MEDS ORDERED: INSULIN IV INFUSION PROTOCOL SCH (14:00)
[2017-07-11] MEDS ORDERED: ASPI-320 PO (14:14)
[2017-07-11 14:19] LABS: HEP C IGG 13 YRS+OLDER_RFLX NEG (NEG)
--- NOTE | 2017-07-11 14:43 | EMERGENCY ROOM VISIT NOTE ---
History Report prepared by Deana: Garth Mckeon Under the Supervision of: Dr. Bradley Chao M.D. First contact with patient: 10:16 Chief Complaint: SHORTNESS OF BREATH Stated Complaint: SHORTNESS OF BREATH History of Present Illness The patient is a 66 year old male who presents to the Emergency Room with complaints of constant shortness of breath beginning 10 days ago. He also complains of fatigue, generalized weakness, and non-productive cough. He states that he has been having muscle spasms in his back recently. The patient's symptoms are worsened with exertion. He notes that it takes him a long time to catch his breath. He is not on supplemental oxygen at home. The patient denies chest pain, chills or fevers. He has no pulmonary history. He was seen by his PCP for his symptoms four days ago, and has not heard anything about his results (discharged on Prednisone and an antibiotic). The patient notes that he already had some Prednisone from a previous visit to urgent care. He has used an inhaler at home, but states that nothing has improved his symptoms. He notes that he has not been sleeping well at night. The patient denies recent travel, or history of blood clots. He states that he has not been eating or drinking well recently. He feels dehydrated. Source of History: patient Onset: 10 days ago Quality: other (shortness of breath) Timing: constant Modifying Factors (Relieving): other (none) Associated Symptoms: + cough (non-productive), + fatigue, + weakness ( generalized), No fevers, No chills, No chest pain Review of Systems See HPI for pertinent positives & negatives. A total of 10 systems reviewed and were otherwise negative. Past Medical & Surgical Medical Problems: (1) Barretts esophagus (2) BPH (benign prostatic hyperplasia) (3) DM type 2 (diabetes mellitus, type 2) (4) Dyslipidemia (5) Hypertension Surgical Problems: (1) H/O shoulder surgery (2) History of appendectomy (3) History of tonsillectomy and adenoidectomy Family History Diabetes mellitus FHx: cancer FHx: heart disease Hypertension Social History Smoking Status: Former Smoker Alcohol Use: occasionally Drug Use: none Marital Status: Housing Status: lives with family Occupation Status: employed Current/Historical Medications Scheduled Amlodipine (Norvasc), 10 MG PO DAILY Aspirin (Aspirin EC Low Dose), 81 MG PO DAILY Atorvastatin (Lipitor), 40 MG PO DAILY Cinnamon (Cinnamon), 1,000 MG PO DAILY Finasteride (Proscar), 5 MG PO DAILY Glimepiride (Glimepiride), 4 MG PO DAILY Hctz/Losartan (Hyzaar 25MG/100MG), 1 TAB PO DAILY Metformin Hcl (Glucophage), 1,000 MG PO BID Multiple Vitamin (Multivitamin), 1 TAB PO DAILY Pantoprazole (Protonix), 40 MG PO DAILY Tamsulosin Hcl (Flomax), 0.4 MG PO DAILY Scheduled PRN Baclofen (Lioresal), 10 MG PO TID PRN for Muscle Spasms Allergies Coded Allergies: No Known Allergies (Unverified , 07/11/17) Physical Exam Vital Signs Date Time Temp Pulse Resp B/P (MAP) Pulse Ox O2 Delivery O2 Flow Rate FiO2 07/11/17 11:00 104 18 127/110 95 Nasal Cannula 2.0 07/11/17 10:38 90 Room Air 07/11/17 10:22 107 07/11/17 10:05 110 20 147/87 91 Room Air Physical Exam GENERAL: Patient is in no acute distress. HEENT: No acute trauma, normocephalic atraumatic, mucous membranes moist, no nasal congestion, no scleral icterus. NECK: No stridor, no adenopathy, no meningismus, trachea is midline. LUNGS: No respiratory distress. Equal breath sounds bilaterally. No crackles. Scant wheezing at both bases. HEART: Tachycardic with a regular rhythm. No murmurs. ABDOMEN: Soft, nontender, bowel sounds positive, no hernias, no peritonitis. EXTREMITIES: No cyanosis or edema, full range of motion of all the joints without pain or difficulty, no signs for acute trauma. NEUROLOGIC: Oriented x 3, no acute motor or sensory deficits, no focal weakness. SKIN: No rash, no jaundice, no diaphoresis. Medical Decision & Procedures ER Provider Diagnostic Interpretation: Radiology results as stated below per my review and radiologist interpretation: CT ANGIOGRAM OF THE CHEST FINDINGS: Thyroid: Imaged portions of the thyroid gland are normal in size and attenuation. Thoracic aorta: There is mild atherosclerotic calcification of the thoracic aorta, which is normal in caliber and demonstrates standard 3-vessel arch anatomy. No dissection is seen. Pulmonary vasculature: The pulmonary trunk is normal in caliber. There is a saddle pulmonary embolus with extensive bilateral pulmonary emboli. Thrombus is seen within the left main pulmonary artery extended into the left upper and left lower lobe pulmonary arteries into segmental and subsegmental branches. Thrombus is also seen extending into the right upper, right middle, and right lower lobe pulmonary arteries into segmental and subsegmental branches. Heart: The heart is top normal in size and there is trace pericardial effusion. Reflux of contrast into the IVC and hepatic veins is nonspecific and can be seen in the setting of cardiac dysfunction. Lungs and pleural spaces: Evaluation of the lung parenchyma is degraded by respiratory motion artifact. A fat-containing Bochdalek hernia is seen at the left lung base. No airspace consolidation or pleural effusion is identified. A 5 mm pulmonary nodule seen at the left lung base image #22. A 3 mm left lower lobe nodule is seen on image #28. These have been present dating back to 2009 and are of doubtful significance. The trachea and central airways are patent. Mediastinum: There is no mediastinal lymphadenopathy. Janell: Clear. Axillae: There is no axillary lymphadenopathy. Upper abdomen: There is a small hiatal hernia. The visualized upper abdominal viscera is otherwise within normal limits. Skeletal structures: No lytic or blastic bony lesions are seen. IMPRESSION: 1. Saddle pulmonary embolus with extensive bilateral pulmonary emboli as above. 2. There is no airspace consolidation or pleural effusion. 3. Reflux of contrast into the IVC and hepatic veins is nonspecific and can be seen in the setting of cardiac dysfunction. Electronically signed by: Bradley Jensen M.D. 07/11/2017 12:06 PM SINGLE VIEW CHEST FINDINGS: An AP, portable, upright chest radiograph is obtained. No prior studies are available for comparison at the time of dictation. The examination is degraded by portable technique and patient rotation. The cardiomediastinal silhouette is unremarkable. The lungs and pleural spaces are clear. No pneumothorax is seen. The bony thorax is grossly intact. IMPRESSION: No acute cardiopulmonary abnormality. Electronically signed by: Bradley Jensen M.D. 07/11/2017 11:02 AM Laboratory Results 07/11/17 10:25 Red Blood Count 4.89, Mean Corpuscular Volume 89.4, Mean Corpuscular Hemoglobin 31.9, Mean Corpuscular Hemoglobin Concent 35.7, Mean Platelet Volume 11.5, Neutrophils (%) (Auto) 80.6, Lymphocytes (%) (Auto) 10.6, Monocytes (%) (Auto) 7.4, Eosinophils (%) (Auto) 0.5, Basophils (%) (Auto) 0.1, Neutrophils # (Auto) 10.75, Lymphocytes # (Auto) 1.41, Monocytes # (Auto) 0.98, Eosinophils # (Auto) 0.07, Basophils # (Auto) 0.01 07/11/17 10:25 Test 07/11/17 10:25 07/11/17 10:36 07/11/17 11:01 White Blood Count 13.33 K/uL (4.8-10.8) Red Blood Count 4.89 M/uL (4.7-6.1) Hemoglobin 15.6 g/dL (14.0-18.0) Hematocrit 43.7 % (42-52) Mean Corpuscular Volume 89.4 fL (80-100) Mean Corpuscular Hemoglobin 31.9 pg (25-34) Mean Corpuscular Hemoglobin Concent 35.7 g/dl (32-36) Platelet Count 142 K/uL (130-400) Mean Platelet Volume 11.5 fL (7.4-10.4) Neutrophils (%) (Auto) 80.6 % Lymphocytes (%) (Auto) 10.6 % Monocytes (%) (Auto) 7.4 % Eosinophils (%) (Auto) 0.5 % Basophils (%) (Auto) 0.1 % Neutrophils # (Auto) 10.75 K/uL (1.4-6.5) Lymphocytes # (Auto) 1.41 K/uL (1.2-3.4) Monocytes # (Auto) 0.98 K/uL (0.11-0.59) Eosinophils # (Auto) 0.07 K/uL (0-0.5) Basophils # (Auto) 0.01 K/uL (0-0.2) RDW Standard Deviation 40.9 fL (36.4-46.3) RDW Coefficient of Variation 12.6 % (11.5-14.5) Immature Granulocyte % (Auto) 0.8 % Immature Granulocyte # (Auto) 0.11 K/uL (0.00-0.02) Prothrombin Time 11.1 SECONDS (9.0-12.0) Prothromb Time International Ratio 1.1 (0.9-1.1) Activated Partial Thromboplast Time 27.9 SECONDS (21.0-31.0) Partial Thromboplastin Ratio 1.1 Anion Gap 13.0 mmol/L (3-11) Estimated GFR () 50.2 Estimated GFR (Non- 43.3 BUN/Creatinine Ratio 15.2 (10-20) Calcium Level 8.4 mg/dl (8.5-10.1) Total Bilirubin 1.0 mg/dl (0.2-1) Aspartate Amino Transf (AST/SGOT) 41 U/L (15-37) Alanine Aminotransferase (ALT/SGPT) 78 U/L (12-78) Alkaline Phosphatase 115 U/L (45-117) Troponin I 0.071 ng/ml (0-0.045) Total Protein 6.6 gm/dl (6.4-8.2) Albumin 3.1 gm/dl (3.4-5.0) Globulin 3.5 gm/dl (2.5-4.0) Albumin/Globulin Ratio 0.9 (0.9-2) Beta-Hydroxybutyric Acid 4.69 mg/dL (0.2-2.81) Thyroid Stimulating Hormone (TSH) 2.020 uIu/ml (0.300-4.500) Hepatitis B Surface Antigen NEG (NEG) Hepatitis C Antibody NEG (NEG) Lactic Acid Level 2.6 mmol/L (0.4-2.0) Influenza Type A (RT-PCR) Neg for Influ A (NEG) Influenza Type B (RT-PCR) Neg for Influ B (NEG) Laboratory results reviewed by me. Medications Administered Medications (Trade) Dose Ordered Sig/Adalberto Route Start Time Stop Time Status Last Admin Dose Admin Sodium Chloride 500 ml @ 999 mls/hr Q31M STAT IV 07/11/17 10:26 07/11/17 10:56 DC 07/11/17 10:52 999 MLS/HR Insulin Human Regular (novoLIN-R U-100 PER UNIT) 10 units NOW STAT IV 07/11/17 10:58 07/11/17 10:59 DC 07/11/17 10:58 10 UNITS Sodium Chloride 500 ml @ 999 mls/hr Q31M STAT IV 07/11/17 11:21 07/11/17 11:51 DC 07/11/17 12:01 999 MLS/HR Piperacillin Sod/ Tazobactam Sod (Zosyn Iv) 4.5 gm NOW STAT IV 07/11/17 11:46 07/11/17 11:47 DC 07/11/17 11:46 4.5 GM Heparin Sodium/ Dextrose 500 ml @ 28 mls/hr [id number] IV 07/11/17 13:00 08/10/17 12:59 07/11/17 13:38 28 MLS/HR Heparin Sodium (Porcine) (Heparin Iv Bolus) 6,000 unit NOW STAT IV 07/11/17 12:56 07/11/17 12:57 DC 07/11/17 13:35 6,000 UNIT ECG Per My Interpretation Indication: SOB/dyspnea Rate (beats per minute): 110 Rhythm: sinus tachycardia Findings: T-wave inversion (Anterior), other (No ST elevations. No PVCs. ) Comparison ECG Date: June 26, 2013 Change: T-wave changes are new. ED Course 1020: The patient was evaluated in room C3. A complete history and physical exam was performed. 1026: Ordered Sodium Chloride 500 ml @ 999 mls/hr IV. 1058: Ordered Novolin-R U-100 per unit 10 units IV. 1100: I updated the patient on his test results. 1121: Ordered Sodium Chloride 500 ml @ 999 mls/hr IV. 1146: Ordered Zosyn 4.5 gm IV. 1235: Upon reexamination the patient is resting comfortably. I discussed results and treatment plan with the patient. He verbalizes agreement and understanding. I spoke with Radha ARGUETA of the [facility] Hospitalist Service. We discussed the patient's results and findings. The patient will be evaluated by [facility] for further management. 1300: Ordered Heparin Sodium/Dextrose IV. Medical Decision The patient is a 66 year old male who presents to the ED with complaints of shortness of breath. Differential diagnoses considered include pneumonia, bronchitis, CHF, PE, anemia, electrolyte imbalance, influenza, failed outpatient treatment, cardiac ischemia and NH. There is a mild leukocytosis at 13,000, this could be consistent with infection or his steroid use recently. No concerning anemia. Renal panel testing shows some renal insufficiency with a creatinine of 1.6. Glucose was quite high at over 500. No hepatitis or coagulopathy. Blood cultures are pending. Lactic acid level was slightly elevated, this could be consistent with sepsis or just dehydration. Chest x-ray showed no pneumonia, pneumothorax or CHF. EKG showed a sinus tachycardia with some anterior T-wave inversions-these T-wave findings were new. Troponin was slightly elevated consistent with cardiac injury or strain. Chest CT showed a saddle pulmonary embolus. The patient received IV saline, IV insulin. He received IV Zosyn and then was given a heparin bolus IV and placed on a heparin drip. The patient requires a hospital stay. I spoke with the application trainer on-call. I spoke with the on-call hospitalist. I talked to the patient and his significant other about the findings. Certainly, the pulmonary embolus finding explains the dyspnea, the troponin elevation, the EKG changes. I suspect the higher blood sugar was from his steroid use. Medication Reconcilliation Current Medication List: was personally reviewed by me Blood Pressure Screening Patient's blood pressure: Elevated blood pressure Blood pressure disposition: Elevated BP felt to be situational Consults Time Called: 1235 Consulting Physician: Dr. Reynolds - Critical Care Returned Call: [phone] Discussed the patient's case. The patient will be evaluated for further management in the ICU. Additional Consults: Time Called: 1328 Consulted Physician: Radha Peterson [facility] Hospitalist Returned Call: [phone] Additional Comments: Discussed the patient's case. The patient will be evaluated for further management. Impression Primary Impression: Saddle pulmonary embolus Additional Impressions: Acute electrocardiogram changes Hyperglycemia Critical Care I have personally spent greater than 40 minutes of critical care time in the direct management of this patient. This includes bedside care, interpretation of diagnostic studies, and testing, discussion with consultants, patient, and family members, and other required patient management activities. This 40 minutes is in excess of all separately billable procedures. Scribe Attestation The scribe's documentation has been prepared under my direction and personally reviewed by me in its entirety. I confirm that the note above accurately reflects all work, treatment, procedures, and medical decision making performed by me. Departure Information Dispostion Being Evaluated By Hospitalist Referrals Apolinar Wayne D.O. (PCP) Patient Instructions My [facility] Problem Qualifiers
[2017-07-11] MEDS ORDERED: AMLODIPINE BESYLATE 5 MG TAB PO ONE (15:15)
[2017-07-11] MEDS ORDERED: LOSARTAN/HCTZ 50-12.5 EA TAB PO ONE (15:15)
[2017-07-11 15:42] VITALS: BP 177/100; PULSE 91; TEMP 36.6; BMI 32.2
[2017-07-11 15:46] VITALS: BMI 32.2
[2017-07-11] MEDS ORDERED: MODERATE STRESS LEVEL ONE (15:50)
[2017-07-11] MEDS ORDERED: INSULIN PROTOCOL GOAL RANGE ONE (15:51)
[2017-07-11 16:00] VITALS: BP 180/114; PULSE 88; TEMP 36.8; O2SAT 96
--- NOTE | 2017-07-11 16:14 | History and Physical ---
History & Physical Date & Time of Service: Jul 11, 2017 ~ 13:45 Chief Complaint: Shortness of breath Primary Care Physician: Apolinar Wayne D.O. History of Present Illness 66-year-old male who presents the ED with shortness of breath. Patient reports his symptoms began about 3 weeks ago. He also has had a dry nonproductive cough. He has been evaluated as an outpatient as well as in the ED for this complaint. Patient has been on courses of antibiotics and steroids without any improvement in his symptoms. He also was started on nebulizer and inhaler which he used fairly frequently yesterday and reports no improvement in his symptoms. Patient reports shortness of breath with minimal exertion. He also has been easily fatigued recently. Patient remains very active and works full- time. He denies chest pain and palpitations. No lightheadedness, dizziness, diaphoresis, or syncopal events. He denies fever and chills. No abdominal pain , nausea, vomiting, diarrhea. He denies any urinary symptoms. Patient denies any recent long travel. In the ED, patient was found to have a saddle pulmonary embolus with extensive bilateral pulmonary emboli. On labs, he is found to be hyperglycemic, MARIA ALEJANDRA, and mildly elevated troponin. EKG shows T-wave inversions in anterior leads. Patient is saturating well on 2 L of oxygen, is mildly tachycardic in the 100s, BP is stable. Patient was started on IV heparin. Past Medical/Surgical History Medical Problems: (1) Barretts esophagus Status: Chronic (2) BPH (benign prostatic hyperplasia) Status: Chronic (3) DM type 2 (diabetes mellitus, type 2) Status: Chronic (4) Dyslipidemia Status: Chronic (5) Hypertension Status: Chronic Surgical Problems: (1) H/O shoulder surgery Status: Chronic (2) History of appendectomy Status: Chronic (3) History of tonsillectomy and adenoidectomy Status: Chronic Family History Diabetes mellitus FATHER FH: brain cancer SISTER Stroke FATHER No family history of clotting disorders Social History Smoking Status: Former Smoker Alcohol Use: occasionally Immunizations History of Influenza Vaccine: Yes Influenza Vaccine Date: Feb 01, 2017 History of Tetanus Vaccine?: Yes Tetanus Immunization Date: Apr 21, 2010 History of Pneumococcal: Yes Pneumococcal Date: Oct 23, 2015 Allergies Coded Allergies: No Known Allergies (Unverified , 07/11/17) Home Medications Scheduled Amlodipine (Norvasc), 10 MG PO DAILY Aspirin (Aspirin EC Low Dose), 81 MG PO DAILY Atorvastatin (Lipitor), 40 MG PO DAILY Cinnamon (Cinnamon), 1,000 MG PO DAILY Finasteride (Proscar), 5 MG PO DAILY Glimepiride (Glimepiride), 4 MG PO DAILY Hctz/Losartan (Hyzaar 25MG/100MG), 1 TAB PO DAILY Metformin Hcl (Glucophage), 1,000 MG PO BID Multiple Vitamin (Multivitamin), 1 TAB PO DAILY Pantoprazole (Protonix), 40 MG PO DAILY Tamsulosin Hcl (Flomax), 0.4 MG PO DAILY Scheduled PRN Baclofen (Lioresal), 10 MG PO TID PRN for Muscle Spasms Review of Systems ROS per HPI, all other systems reviewed and negative Physical Exam Vital Signs Date Time Temp Pulse Resp B/P (MAP) Pulse Ox O2 Delivery O2 Flow Rate FiO2 07/11/17 15:42 36.6 91 16 177/100 Room Air 07/11/17 15:13 92 16 97 07/11/17 14:18 36.5 07/11/17 13:44 93 07/11/17 11:00 104 18 127/110 95 Nasal Cannula 2.0 07/11/17 10:38 90 Room Air 07/11/17 10:22 107 07/11/17 10:05 110 20 147/87 91 Room Air General Appearance: WD/WN, no apparent distress Head: normocephalic, atraumatic Eyes: normal inspection, EOMI, sclerae normal ENT: hearing grossly normal, + pertinent finding (Mucous membranes moist) Neck: supple, no JVD, trachea midline Respiratory/Chest: lungs clear, normal breath sounds, no respiratory distress, + pertinent finding (Shortness of breath with minimal exertion) Cardiovascular: regular rate, rhythm, no edema, normal peripheral pulses Abdomen/GI: normal bowel sounds, non tender, soft, no organomegaly Extremities/Musculoskelatal: normal inspection, no calf tenderness, normal capillary refill Neurologic/Psych: no motor/sensory deficits, alert, normal mood/affect, oriented x 3 Skin: normal color, warm/dry Diagnostics Laboratory Results Results Past 24 Hours Test 07/11/17 10:25 07/11/17 10:36 07/11/17 11:01 07/11/17 14:02 Range/Units White Blood Count 13.33 4.8-10.8 K/uL Red Blood Count 4.89 4.7-6.1 M/uL Hemoglobin 15.6 14.0-18.0 g/dL Hematocrit 43.7 42-52 % Mean Corpuscular Volume 89.4 80-100 fL Mean Corpuscular Hemoglobin 31.9 25-34 pg Mean Corpuscular Hemoglobin Concent 35.7 32-36 g/dl Platelet Count 142 130-400 K/uL Mean Platelet Volume 11.5 7.4-10.4 fL Neutrophils (%) (Auto) 80.6 % Lymphocytes (%) (Auto) 10.6 % Monocytes (%) (Auto) 7.4 % Eosinophils (%) (Auto) 0.5 % Basophils (%) (Auto) 0.1 % Neutrophils # (Auto) 10.75 1.4-6.5 K/uL Lymphocytes # (Auto) 1.41 1.2-3.4 K/uL Monocytes # (Auto) 0.98 0.11-0.59 K/uL Eosinophils # (Auto) 0.07 0-0.5 K/uL Basophils # (Auto) 0.01 0-0.2 K/uL RDW Standard Deviation 40.9 36.4-46.3 fL RDW Coefficient of Variation 12.6 11.5-14.5 % Immature Granulocyte % (Auto) 0.8 % Immature Granulocyte # (Auto) 0.11 0.00-0.02 K/uL Prothrombin Time 11.1 9.0-12.0 SECONDS Prothromb Time International Ratio 1.1 0.9-1.1 Activated Partial Thromboplast Time 27.9 21.0-31.0 SECONDS Partial Thromboplastin Ratio 1.1 Sodium Level 132 136-145 mmol/L Potassium Level 4.1 3.5-5.1 mmol/L Chloride Level 98 98-107 mmol/L Carbon Dioxide Level 21 21-32 mmol/L Anion Gap 13.0 3-11 mmol/L Blood Urea Nitrogen 24 7-18 mg/dl Creatinine 1.61 0.60-1.40 mg/dl Estimated GFR () 50.2 Estimated GFR (Non- 43.3 BUN/Creatinine Ratio 15.2 10-20 Random Glucose 536 70-99 mg/dl Calcium Level 8.4 8.5-10.1 mg/dl Total Bilirubin 1.0 0.2-1 mg/dl Aspartate Amino Transf (AST/SGOT) 41 15-37 U/L Alanine Aminotransferase (ALT/SGPT) 78 12-78 U/L Alkaline Phosphatase 115 45-117 U/L Troponin I 0.071 0-0.045 ng/ml Total Protein 6.6 6.4-8.2 gm/dl Albumin 3.1 3.4-5.0 gm/dl Globulin 3.5 2.5-4.0 gm/dl Albumin/Globulin Ratio 0.9 0.9-2 Beta-Hydroxybutyric Acid 4.69 0.2-2.81 mg/dL Thyroid Stimulating Hormone (TSH) 2.020 0.300-4.500 uIu/ml Hepatitis B Surface Antigen NEG NEG Hepatitis C Antibody NEG NEG Lactic Acid Level 2.6 0.4-2.0 mmol/L Influenza Type A (RT-PCR) Neg for Influ A NEG Influenza Type B (RT-PCR) Neg for Influ B NEG Bedside Glucose 139 70-99 mg/dl Test 07/11/17 14:15 Range/Units Microbiology Results 07/11/17 Blood Culture, Received Pending 07/11/17 Blood Culture, Received Pending 07/11/17 MRSA DNA Surveillance Screen, Received Pending Diagnostic Radiology CTA CHEST IMPRESSION: 1. Saddle pulmonary embolus with extensive bilateral pulmonary emboli as above. 2. There is no airspace consolidation or pleural effusion. 3. Reflux of contrast into the IVC and hepatic veins is nonspecific and can be seen in the setting of cardiac dysfunction. CXR IMPRESSION: No acute cardiopulmonary abnormality. Impression Assessment and Plan SADDLE PULMONARY EMBOLUS, BILATERAL PULMONARY EMBOLI -Admit to ICU -Patient presenting with increasing shortness of breath 3 weeks; in the ED, CTA chest showing saddle pulmonary embolus with extensive bilateral pulmonary emboli -Saturating well on 2 L of oxygen, vital signs stable -Started on heparin drip in the ED, will continue with -No clear risk factors identified; no recent travel, current non-smoker, no family history of clotting disorders -Obtain hypercoagulable workup -Check echocardiogram to evaluate for right-sided heart strain -BL SANDRA Dopplers -Case discussed with Dr. Reynolds MARIA ALEJANDRA -Likely dehydration due to hyperglycemia in combination with ARB/HCTZ use -Will hold losartan and hydrochlorothiazide, start Normosol 100 cc/hour -Consider renal vascular studies to evaluate for clot ELEVATED TROPONIN -Likely demand ischemia from acute PE/saddle pulmonary embolus -EKG shows T-wave inversions anteriorly -No reports of chest pain -Initial troponin 0 0.071, will continue to trend -Resting echocardiogram HYPERTENSION -BPs elevated in ED -Likely due to anxiety/missing medications this morning -We will give home dose of amlodipine for now -Holding losartan and HCTZ as above -Discussed with Dr. Reynolds, would like to avoid aggressive BP lowering at this time DIABETES -Blood sugars recently elevated due to use of steroids -S/P 10 units regular insulin in ED, insulin drip ordered by ICU team -Hold oral agents -Hgb A1c 9.0 12/2016 DYSLIPIDEMIA -Continue statin BPH -Continue finasteride and tamsulosin DVT PROPHYLAXIS -On heparin drip DISPOSITION -In my clinical judgment this beneficiary meets acute admission criteria, established by [facility], that includes being hospitalized through two midnights. ADDENDUM: I have seen and examined the patient and agree with the assessment and plan above. Historically, the patient reports being sedentary 2/2 a back spasm that caused him to be bedbound for a couple of days and subsequently had a bout of bronchitis which caused him malaise. He has had a recent colonoscopy , is taking no meds that increase the risk for DVT/PE, denies any recent leg injury, and denies any known hypercoagulable disorder in his family. His clot burden is extensive with a saddle PE, mobile clot extending into the R atrium, and superficial femoral DVT. He currently denies pain in his chest or legs. Per ICU staff, they will be keeping him here for now after discussion with the specialists at [facility]. The patient and his are both comfortable with that. Physical exam is unremarkable including no respiratory distress or conversational dyspnea on 2L NC, no JVD, clear lungs, no heart murmurs, rubs or gallops, no swelling or pain in calves. He did have some enlarged superficial veins on the LLE which he says was normal for him. He is hypertensive, but otherwise hemodynamically stable at this time. He will remain on a heparin drip and IVF for now in the ICU. DO Venkat Advanced Directives Existing Living Will: No Existing Power of Transformer Coil Winder: No Resuscitation Status VTE Prophylaxis Will order VTE Prophylaxis: Yes
--- NOTE | 2017-07-11 16:40 | ECHOCARDIOGRAM REPORT ---
*NOTICE TO RECEIVING CONSTITUTION PARTY AGENCY This information is strictly Confidential and protected under [place] law. [place] law prohibits you from making any further disclosure of this information unless further disclosure is expressly permitted by the written consent of the person to whom it pertains or is authorized by law. A general authorization for the release of medical or other information is not sufficient for this purpose. Hospital accepts no responsibility if the information is made available to any other person, INCLUDING THE PATIENT. Interpretation Summary * Name: JADE VALENCIA Study Date: 07/11/2017 03:31 PM BP: 147/87 mmHg * Patient Location: [facility] HR: 93 * : 1950 (M/d/yyyy) Gender: Male Height: 67 in * Age: 66 yrs Ethnicity: [place] Weight: 200 lb * Ordering Physician: Silviano Reynolds * Referring Physician: Self, Referred * Performed By: Venus Patricia RDCS * * Reason For Study: Pulmonary Embolism * BSA: 2.0 m2 * The study was technically adequate. * There is no comparison study available. * -- Conclusions -- * The right ventricle is severely dilated. * The right ventricular systolic function is severely reduced. * The right atrium is moderately dilated. 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 * There is moderate tricuspid regurgitation. * The estimated systolic pulmonary arterial pressure is 73 mmHg. * Flattened septum is consistent with RV pressure/volume overload. * Dilated inferior vena cava with reduced collapsability with sniff indicates an elevated right atrial pressure of 15 mmHg * Ejection Fraction = 50-55%. Procedure Details * A complete two-dimensional transthoracic echocardiogram was performed (2D, M-mode, Doppler and color flow Doppler). Left Ventricle * The left ventricle is normal in size. * There is mild concentric left ventricular hypertrophy. * Ejection Fraction = 50-55%. * Left ventricular systolic function is normal. * Flattened septum is consistent with RV pressure/volume overload. Right Ventricle * The right ventricle is severely dilated. * The right ventricular systolic function is severely reduced. Atria * The left atrial size is normal. * A thrombus is seen in the right atrium. 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 * The right atrium is moderately dilated. * There is no evidence of atrial septal defect, but resolution does not allow assessment for a patent foramen ovale. Mitral Valve * The mitral valve is normal. * There is no mitral valve stenosis. * Significant mitral regurgitation is absent. Tricuspid Valve * The tricuspid valve is normal. * There is no tricuspid stenosis. * There is moderate tricuspid regurgitation. * The estimated systolic pulmonary arterial pressure is 73 mmHg. Aortic Valve * The aortic valve is trileaflet. * Aortic stenosis is absent. * There is no significant aortic regurgitation. Pulmonic Valve * The pulmonary valve is not well seen, but the Doppler examination is normal without significant regurgitation or stenosis. Great Vessels * The aortic root is normal size. Pericardium/Pleural * There is no pericardial effusion. Great Vessels * Dilated inferior vena cava with reduced collapsability with sniff indicates an elevated right atrial pressure of 15 mmHg Left Ventricular Diastolic Function * Pulse wave TDI of the anterior and posterior mitral annulas demonstrates abnormal LV relaxation MMode 2D Measurements and Calculations IVSd 1.3 cm IVSs 1.4 cm LVIDd 3.7 cm LVIDs 2.6 cm LVPWd 1.3 cm LVPWs 2.0 cm IVS/LVPW 0.99 FS 29.8 % EDV(Teich) 57.6 ml ESV(Teich) 24.4 ml EF(Teich) 57.7 % EDV(cubed) 50.1 ml ESV(cubed) 17.4 ml EF(cubed) 65.3 % % IVS thick 8.8 % % LVPW thick 53.4 % LV mass(C)d 159.6 grams LV mass(C)dI 78.9 grams/m\S\2 LV mass(C)s 158.9 grams LV mass(C)sI 78.6 grams/m\S\2 SV(Teich) 33.3 ml SI(Teich) 16.5 ml/m\S\2 SV(cubed) 32.8 ml SI(cubed) 16.2 ml/m\S\2 Ao root diam 3.4 cm Ao root area 9.3 cm\S\2 ACS 1.5 cm LVAd ap4 23.3 cm\S\2 LVLd ap4 7.9 cm EDV(MOD-sp4) 59.9 ml EDV(sp4-el) 58.5 ml LVAs ap4 15.0 cm\S\2 LVLs ap4 7.0 cm ESV(MOD-sp4) 30.3 ml ESV(sp4-el) 27.5 ml EF(MOD-sp4) 49.5 % EF(sp4-el) 52.9 % LVAd ap2 25.1 cm\S\2 LVLd ap2 8.3 cm EDV(MOD-sp2) 68.7 ml EDV(sp2-el) 64.6 ml LVAs ap2 16.6 cm\S\2 LVLs ap2 7.2 cm ESV(MOD-sp2) 33.9 ml ESV(sp2-el) 32.5 ml EF(MOD-sp2) 50.7 % EF(sp2-el) 49.6 % LVLd %diff 4.6 % EDV(MOD-bp) 63.6 ml LVLs %diff 3.3 % ESV(MOD-bp) 31.8 ml EF(MOD-bp) 50.1 % SV(MOD-sp4) 29.6 ml SI(MOD-sp4) 14.7 ml/m\S\2 SV(MOD-sp2) 34.8 ml SI(MOD-sp2) 17.2 ml/m\S\2 SV(MOD-bp) 31.9 ml SI(MOD-bp) 15.8 ml/m\S\2 SV(sp4-el) 31.0 ml SI(sp4-el) 15.3 ml/m\S\2 SV(sp2-el) 32.0 ml SI(sp2-el) 15.8 ml/m\S\2 Doppler Measurements and Calculations MV E max kendall 81.2 cm/sec MV A max kendall 35.9 cm/sec MV E/A 2.3 MV dec time 0.23 sec Ao V2 max 123.3 cm/sec Ao max PG 6.1 mmHg Ao max PG (full) 3.1 mmHg LV V1 max PG 3.0 mmHg LV V1 max 86.4 cm/sec PA V2 max 63.6 cm/sec PA max PG 1.6 mmHg TR max kendall 364.7 cm/sec
[2017-07-11] MEDS ORDERED: INSULIN ASPART 100 UNITS/ML 3 ML PEN SC SCH (17:15)
[2017-07-11] MEDS ORDERED: NURSING VERBAL MED ORDER ONE (17:15)
[2017-07-11] MEDS: NORMOSOL R 1,000 ML IV SCH (17:40)
--- NOTE | 2017-07-11 17:54 | DIAGNOSTIC IMAGING REPORT ---
VENOUS DOPPLER LWR EXT BILA HISTORY: Pain. Pulmonary emboli. known PE COMPARISON STUDY: None. FINDINGS: Right leg is negative for deep venous thrombosis. The left leg shows evidence for acute deep venous thrombosis within the mid to distal femoral vein. There is also involvement of the left posterior tibial veins. IMPRESSION: 1. Acute deep venous thrombosis of the left leg extending from the left mid femoral vein inferiorly to the left posterior tibial veins. 2. Normal venous evaluation right leg. The above report was generated using voice recognition software. It may contain grammatical, syntax or spelling errors. Electronically signed by: Allen Stoner M.D. 07/11/2017 5:53 PM Dictated Date/Time: 07/11/2017 5:52 PM
--- NOTE | 2017-07-11 17:56 | DIAGNOSTIC IMAGING REPORT ---
DUPLEX PORTAL HEPATIC VEINS CLINICAL HISTORY: r/o budd chiari thrombus thrombus TECHNIQUE: Venous and arterial Doppler COMPARISON STUDY: None FINDINGS: Normal vascular flow is seen in an antegrade fashion involving all hepatic and portal venous structures. Antegrade flow is present in the hepatic arterial vessels. IMPRESSION: Normal study. Blood flow is confirmed in all major vessels in a normal antegrade direction The above report was generated using voice recognition software. It may contain grammatical, syntax or spelling errors. Electronically signed by: Allen Stoner M.D. 07/11/2017 5:54 PM Dictated Date/Time: 07/11/2017 5:53 PM
[2017-07-11 18:00] VITALS: BP 177/100; PULSE 88; TEMP 36.8; O2SAT 97
--- NOTE | 2017-07-11 18:03 | Critical Care Consultation ---
Critical Care Consultation Date of Consultation: Jul 11, 2017. Attending Physician: Laurita Gunter M.D. Reason for Consultation: Saddle pulmonary emboli History of Present Illness 66-year-old male presents with his . He states that about 2-3 weeks ago he thought that he had a "cold" mostly consistent of a dry cough. He saw his primary care doctor for the same about 4 days ago and was placed on a combination of antibiotics, prednisone, and albuterol. None of this seemed to work. During the same 2-3 week time period he had an exacerbation of his chronic low back pain and muscle spasms. 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 Yesterday he attempted some yard work for about 10 minutes but became short of breath and too fatigued to continue. He denies any chest pain or pressure or other chest symptoms throughout this time. No known fevers, nausea vomiting diarrhea, abdominal pain, or other focal pains or concerns. He did not take any Tylenol, Motrin, or other antipyretics recently. He denies any leg swelling or known prior blood clots. His only other acute concerns some mild difficulty voiding and says that may be related to his ongoing prostate issues. No other acute patient or concerns. Past Medical/Surgical History PMH: Prostatitis, HLD, GERD, HTN, lumbar back pain, DM type 2 PSH: Shoulder surgery. Family History Diabetes mellitus FATHER FH: brain cancer SISTER Stroke FATHER Social History Smoking Status: Former Smoker Alcohol Use: occasionally Housing Status: lives with family Allergies Coded Allergies: No Known Allergies (Unverified , 07/11/17) Home Medications Scheduled Amlodipine (Norvasc), 10 MG PO DAILY Aspirin (Aspirin EC Low Dose), 81 MG PO DAILY Atorvastatin (Lipitor), 40 MG PO DAILY Cinnamon (Cinnamon), 1,000 MG PO DAILY Finasteride (Proscar), 5 MG PO DAILY Glimepiride (Glimepiride), 4 MG PO DAILY Hctz/Losartan (Hyzaar 25MG/100MG), 1 TAB PO DAILY Metformin Hcl (Glucophage), 1,000 MG PO BID Multiple Vitamin (Multivitamin), 1 TAB PO DAILY Pantoprazole (Protonix), 40 MG PO DAILY Tamsulosin Hcl (Flomax), 0.4 MG PO DAILY Scheduled PRN Baclofen (Lioresal), 10 MG PO TID PRN for Muscle Spasms Current Inpatient Medications Current Inpatient Medications Medications (Trade) Dose Ordered Sig/Adalberto Route Start Time Stop Time Status Last Admin Dose Admin Ioversol (Optiray 320) 125 ml UD PRN IV 07/11/17 10:45 07/15/17 10:44 Heparin Sodium/ Dextrose 500 ml @ 28 mls/hr [id number] IV 07/11/17 13:00 08/10/17 12:59 07/11/17 13:38 28 MLS/HR Acetaminophen (Tylenol Tab) 650 mg Q4H PRN PO 07/11/17 13:30 08/10/17 13:29 Miscellaneous Information ([facility] Protocol For Hyperglycemia) 1 ea PRN PRN N/A 07/11/17 13:30 07/13/17 13:29 Miscellaneous Information ( [facility] Electrolyte Replacement Protocol) 1 ea per protocol PRN N/A 07/11/17 13:30 07/18/17 13:29 Insulin Aspart (novoLOG ASPART) SLIDING SCALE PCHS SC 07/11/17 17:15 08/10/17 18:59 Amlodipine Besylate (Norvasc Tab) 10 mg DAILY PO 07/12/17 09:00 08/11/17 08:59 Atorvastatin Calcium (Lipitor Tab) 40 mg DAILY PO 07/12/17 09:00 08/11/17 08:59 Finasteride (Proscar Tab) 5 mg DAILY PO 07/12/17 09:00 08/11/17 08:59 Multivitamins (Multivitamin Tab) 1 tab DAILY PO 07/12/17 09:00 08/11/17 08:59 Pantoprazole Sodium (Protonix Tab) 40 mg DAILY PO 07/12/17 09:00 08/11/17 08:59 Tamsulosin HCl (Flomax Cap) 0.4 mg DAILY PO 07/12/17 09:00 08/11/17 08:59 Parenteral Electrolyte Solution 1,000 ml @ 100 mls/hr Q10H IV 07/11/17 14:45 08/10/17 14:44 07/11/17 17:40 100 MLS/HR Review of Systems Constitutional: No fever, No chills Respiratory: + cough, + shortness of breath, + dyspnea on exertion, No hemoptysis Cardiovascular: No chest pain, No orthopnea, No edema Abdomen: No pain, No nausea, No vomiting, No diarrhea Genitourinary - Male: No hematuria, No dysuria, No urinary frequency, No urinary urgency Neurologic: No weakness, No numbness/tingling Endocrine: + fatigue Physical Exam Date Time Temp Pulse Resp B/P (MAP) Pulse Ox O2 Delivery O2 Flow Rate FiO2 07/11/17 16:00 36.8 88 20 180/114 (136) 96 Nasal Cannula 2.0 07/11/17 16:00 96 Nasal Cannula 2.0 07/11/17 15:42 36.6 91 16 177/100 Room Air 07/11/17 15:13 92 16 97 07/11/17 14:18 36.5 07/11/17 13:44 93 07/11/17 11:00 104 18 127/110 95 Nasal Cannula 2.0 07/11/17 10:38 90 Room Air 07/11/17 10:22 107 07/11/17 10:05 110 20 147/87 91 Room Air General Appearance: Awake, alert & oriented, comfortable in general, NAD. CV: +S1S2 regular tachycardia, no murmur. Pulm: Clear to auscultation throughout. Abdomen: +BS, soft, non-tender, non-distended. Extremities: No pedal edema or calf tenderness. Moving all extremities naturally and easily. Neuro: No gross neuro deficits. Laboratory Results Last 24 Hours Test 07/11/17 10:25 07/11/17 10:36 07/11/17 11:01 07/11/17 14:02 White Blood Count 13.33 K/uL Red Blood Count 4.89 M/uL Hemoglobin 15.6 g/dL Hematocrit 43.7 % Mean Corpuscular Volume 89.4 fL Mean Corpuscular Hemoglobin 31.9 pg Mean Corpuscular Hemoglobin Concent 35.7 g/dl Platelet Count 142 K/uL Mean Platelet Volume 11.5 fL Neutrophils (%) (Auto) 80.6 % Lymphocytes (%) (Auto) 10.6 % Monocytes (%) (Auto) 7.4 % Eosinophils (%) (Auto) 0.5 % Basophils (%) (Auto) 0.1 % Neutrophils # (Auto) 10.75 K/uL Lymphocytes # (Auto) 1.41 K/uL Monocytes # (Auto) 0.98 K/uL Eosinophils # (Auto) 0.07 K/uL Basophils # (Auto) 0.01 K/uL RDW Standard Deviation 40.9 fL RDW Coefficient of Variation 12.6 % Immature Granulocyte % (Auto) 0.8 % Immature Granulocyte # (Auto) 0.11 K/uL Prothrombin Time 11.1 SECONDS Prothromb Time International Ratio 1.1 Activated Partial Thromboplast Time 27.9 SECONDS Partial Thromboplastin Ratio 1.1 Sodium Level 132 mmol/L Potassium Level 4.1 mmol/L Chloride Level 98 mmol/L Carbon Dioxide Level 21 mmol/L Anion Gap 13.0 mmol/L Blood Urea Nitrogen 24 mg/dl Creatinine 1.61 mg/dl Estimated GFR () 50.2 Estimated GFR (Non- 43.3 BUN/Creatinine Ratio 15.2 Random Glucose 536 mg/dl Calcium Level 8.4 mg/dl Total Bilirubin 1.0 mg/dl Aspartate Amino Transf (AST/SGOT) 41 U/L Alanine Aminotransferase (ALT/SGPT) 78 U/L Alkaline Phosphatase 115 U/L Troponin I 0.071 ng/ml Total Protein 6.6 gm/dl Albumin 3.1 gm/dl Globulin 3.5 gm/dl Albumin/Globulin Ratio 0.9 Beta-Hydroxybutyric Acid 4.69 mg/dL Thyroid Stimulating Hormone (TSH) 2.020 uIu/ml Hepatitis B Surface Antigen NEG Hepatitis C Antibody NEG Lactic Acid Level 2.6 mmol/L Influenza Type A (RT-PCR) Neg for Influ A Influenza Type B (RT-PCR) Neg for Influ B Bedside Glucose 139 mg/dl Test 07/11/17 14:15 07/11/17 15:59 Bedside Glucose 140 mg/dl Assessment & Plan 66 yo male admitted on [id number] for SOB and saddle embolus on CT chest. PMH: Prostatitis, HLD, GERD, HTN, lumbar back pain, DM type 2 PSH: Shoulder surgery. SHUTDOWN COORDINATOR: CAM-ICU negative. No acute issues. Pulm: Reported cold symptoms for 2-3 weeks, worsening dry cough, and relative immobility due to back pain. Some exertional SOB with attempted yard work yesterday, but denies chest pain/pressure. See "ID" discussion below. CTA chest noted saddle PE with extensive bilateral PE as well. No consolidation or effusion seen. Room SpO2 91%, then 95% on 2L NC. Given heparin 6000 unit bolus , then started on 1400 units/hr drip. Presently hemodynamically-stable, precluding need for emergent tPA. - Exact clot source unclear, pending u/s of heart + abdomen + legs. - Anticoagulation factors workup ordered, pending results. CVS: No known underlying cardiac disease, but PMH HTN + HLD + DM2. Denies any CP. EKG sinus tachy 110, T wave inversions V2-4. Has S1Q3 but not inverted T in V3. Troponin 0.071. Kept on home amlodipine, lipitor, hctz/losartan. Some initial HTN, monitoring. - Cardiac echo pending. ID: Recent 2-3 weeks of "cold" symptoms, mostly cough. Was seen by PCM on 19Apr , placed on prednisone, an "antibiotic", and albuterol without much relief. No known fevers. On admit, afebrile, WBC 13, tachycardic, not tachypneic (so technically SIRS). Lactate 2.6. CTA chest not suggestive of infiltrate. No other suspected current infectious issue. In ED given dose of zosyn 4.5 grams. - Here, influenza negative. 23Apr BCx x 2 pending. Endo: Admit glucose 536. Given novolin 10 units x 1 then started on sliding scale. Recheck glucose 139. TSH normal. - Beta-hydroxybutyric acid level pending. - HbA1c pending. Renal/Lytes: Admit MARIA ALEJANDRA with Cr 1.61. No known underlying renal disease, though PMH of BPH vs prostatitis. On home flomax. - Hyponatremia: Admit Na 132. Given NS bolus in ED. Monitoring. GI: No known baseline issues. Denies abdominal pain or recent N/V/D. - Hepatitis panel pending. Heme: Admit Hb 15, platelets 142, INR 1.1. No acute issues. Lines: Right arm PIV. Left arm PIV. Code status: Full code. DVT prophy: On heparin for PE as above. PT/OT: Deferred. Disposition: ICU care. Critically ill. Resident Physician Supervision Note: Dr. Farah was resident physician during care of patient. I separately evaluated patient and did history and exam. I discussed the case with the resident and generally agree with the findings and plan. Had extensive discussion with the patient regarding risks and benefits of heparin versus thrombolysis versus catheter directed thrombolysis. Patient has opted for medical management without thrombolytics with joint medical decision- making. I contacted [facility] and spoke with a of interventional radiology who was also the believe that while the patient met eligibility criteria for possible thrombolysis he also exhibited signs that are likely interpreted as evidence of hemodynamic stability and a significant chronicity of the embolism. I have personally spent 60 minutes of critical care time in the direct management of this patient. This is a life/limb threatening event. This includes time spent evaluating patient, direct bedside care, chart review, placing orders, interpretation of diagnostic studies, discussion with consultants, patient, and/or family members regarding treatment decisions, as well as other required patient management activities. This time is exclusive of all separately billable procedures, and teaching time and separate from and in addition to any other critical care service time. Documented By: Silviano Reynolds DO Resident Tracking Resident Involvement: Resident Care Provided Care Provided: Adult Hospital Medicine (ICU)
[2017-07-11 20:00] VITALS: BP 178/104; PULSE 95; TEMP 36.8; O2SAT 92
[2017-07-11] MEDS: INSULIN ASPART 100 UNITS/ML 3 ML PEN SC SCH (20:38)
[2017-07-11 20:56] LABS: PTT PATIENT 130.5 SECONDS (21.0-31.0)
[2017-07-11 22:00] VITALS: BP 147/106; PULSE 88; O2SAT 95
[2017-07-11 22:35] LABS: PTT PATIENT 60.1 SECONDS (21.0-31.0)
[2017-07-12] VITALS (17 sets, daily range): BP systolic 115–156; BP diastolic 81–102; PULSE 81–98; TEMP 36.5–36.9; O2SAT 93–99; BMI 31.1
[2017-07-12] MEDS: NORMOSOL R 1,000 ML IV SCH ×3 (03:11→20:40)
[2017-07-12 05:56] LABS: BASO % 0.3 %; BASO ABS # 0.03 K/uL (0-0.2); EOS % 1.8 %; EOS ABS # 0.17 K/uL (0-0.5); HEMATOCRIT 41.1 % (42-52); HEMOGLOBIN 13.9 g/dL (14.0-18.0); IG# 0.08 K/uL (0.00-0.02); LYMPH % 33.7 %; LYMPH ABS # 3.12 K/uL (1.2-3.4); MEAN CELL VOLUME 90.3 fL (80-100); MEAN CORPUSCULAR HEMOGLOBIN 30.5 pg (25-34); MEAN CORPUSCULAR HGB CONC 33.8 g/dl (32-36); MEAN PLATELET VOLUME 11.4 fL (7.4-10.4); MONO % 9.5 %; MONO ABS # 0.88 K/uL (0.11-0.59); NEUT % 53.8 %; NEUT ABS # 4.99 K/uL (1.4-6.5); PLATELET COUNT 136 K/uL (130-400); RED CELL DISTRIBUTION WIDTH CV 12.9 % (11.5-14.5); RED CELL DISTRIBUTION WIDTH SD 42.1 fL (36.4-46.3); WHITE BLOOD COUNT 9.27 K/uL (4.8-10.8)
[2017-07-12 06:18] LABS: CALCIUM 7.9 mg/dl (8.5-10.1); CREATININE 1.17 mg/dl (0.60-1.40); POTASSIUM 3.9 mmol/L (3.5-5.1)
[2017-07-12 06:26] LABS: PHOSPHORUS 2.9 mg/dl (2.5-4.9)
[2017-07-12 06:30] LABS: PTT PATIENT 54.2 SECONDS (21.0-31.0)
[2017-07-12] MEDS: HEPARIN 25,000 UNIT/500ML D5W 500 ML IV SCH (08:16)
[2017-07-12] MEDS: TAMSULOSIN HCL 0.4 MG CAP PO SCH (08:17)
[2017-07-12] MEDS: MULTIVITAMIN TAB PO SCH (08:17)
[2017-07-12] MEDS: ATORVASTATIN 40 MG TAB PO SCH (08:17)
[2017-07-12] MEDS: FINASTERIDE 5 MG TAB PO SCH (08:18)
[2017-07-12] MEDS: PANTOprazole SOD 40 MG TAB PO SCH (08:18)
[2017-07-12] MEDS: INSULIN ASPART 100 UNITS/ML 3 ML PEN SC SCH ×4 (08:22→20:42)
[2017-07-12] MEDS ORDERED: AMLODIPINE BESYLATE 5 MG TAB PO SCH (09:00)
[2017-07-12] MEDS ORDERED: LOSARTAN/HCTZ 50-12.5 EA TAB PO SCH (09:00)
[2017-07-12] MEDS ORDERED: INSULIN GLARGINE SOLOSTAR 100 UNITS/ML 3 ML PEN SC SCH (10:30)
[2017-07-12] MEDS ORDERED: METOPROLOL TARTRATE 25 MG TAB PO ONE (10:30)
--- NOTE | 2017-07-12 10:54 | Clinical Documentation Query ---
CLINICAL DOCUMENTATION QUERY 66 year old male who presents to the Emergency Room with complaints of constant shortness of breath beginning. He has been diagnosed with saddle PE. In your clinical opinion is this patient being managed for: ( x ) Saddle PE with "acute cor pulmonale" treated with anticoagulation and cardiopulmonary support. ( ) Not Agree ( ) Other explanation of clinical findings (Please Explain. If no explanation given, this would be considered a no response.) ( ) Unable to determine ( ) Need to Discuss (Please call CDS via extension or qliq. If no interaction occurs this is considered a no response.) The medical record reflects the following clinical findings, treatment, and risk factors. Clinical Indicators:Tachycardia 100's, SOB, Saddle PE per H&P. Echo showing a severely dilated RV with severe loss of systolic function. A large mobile serpentine right atrial thrombus which prolapses RV, and elevated right atrial pressure. Treatment: IV Heparin gtt, O2, ICU hemodynamic monitoring, Risk Factors: Saddle PE Please clarify and document your clinical opinion in the progress notes and discharge summary. Terms such as "probable", "suspected", "likely", "questionable", "possible", or "still to be ruled out" are acceptable. IF IN AGREEMENT, YOU MUST DOCUMENT ABOVE DIAGNOSTIC STATEMENT IN DAILY PROGRESS NOTES AND DISCHARGE SUMMARY. This document is not part of the patient's record. Thank You, Alexandre Escobar, RN [phone]
[2017-07-12 11:26] LABS: HEPATITIS A IGM TC 51813E NON-REACTIVE (NON-REACTIVE); HEPATITIS B CORE IGM TC51854R NON-REACTIVE (NON-REACTIVE)
--- NOTE | 2017-07-12 11:55 | Critical Care Progress Note ---
Critical Care Progress Note Date of Service Jul 12, 2017. Attending Dr. Reynolds Subjective Found patient resting very comfortably in the bed. Says that his breathing feels much better overall, even more so on oxygen. He continues to have shortness of breath with any exertion. He denies any chest pain, pressure, or other chest concerns. On review of systems, the patient said that the top of his left knee felt a little bit sore but not painful. He attributed this to his lying in bed all day long yesterday and not moving much. He says he feels a little stiff. He denies any other pain, numbness or tingling throughout his entire leg. He has no other acute concerns. Objective General Appearance: Awake, alert & oriented, comfortable in general (but still gets SOB with light exertion), NAD in bed or chair. CV: +S1S2 RRR, no murmur. Pulm: Clear to auscultation throughout. Abdomen: +BS, soft, non-tender, non-distended. Extremities: No pedal edema or calf tenderness. Moving all extremities naturally and easily. The left knee does not appear erythematous, edematous, and is completely nontender circumferentially. Normal range of motion. Normal distal sensation and cap refill. Neuro: No gross neuro deficits. Assessment & Plan 66 yo male admitted on [id number] for SOB and saddle embolus on CT chest. PMH: Prostatitis, HLD, GERD, HTN, lumbar back pain, DM type 2 PSH: Shoulder surgery. FAMILY PRACTITIONER: CAM-ICU negative. Did c/o some mild left knee pain, likely some stiffness , as no evidence of infectious vs traumatic local issue. Tylenol prn available. Pulm: CTA chest and cardiac echo noted significant saddle PE, extensive bilateral pulmonary PE's, and thrombus in right atrium/ventricle. Likely acute on chronic, former related to 2-3 weeks of relative immobility during (also) acute on chronic low back pain. U/s of legs noted DVT on left and u/s of liver vasculature was normal (see full reports). SOB with mild exertion continues, but resting SOB much improved on 3L NC (96% sat). Continuing heparin drip. Remains hemodynamically stable. - Calculations last night: PESI score 118 (Class IV). Discussed case with OSH, no clear benefit to attempted thrombolysis at that time, discussed same with patient, elected to monitor/treat here. - Holding transition to coumadin for now. Consider against NOAC due to fall/ bleed risk. - Anticoagulation factors workup ordered, pending results. CVS: No known underlying cardiac disease, but PMH HTN + HLD + DM2. Continues to deny chest pain/pressure. Initial EKG okay (see report). TnI trended no higher than 0.097, likely demand ischemia. Echo noted clot as above along with severe RV dilatation and estimated PAP 73. Started here on home amlodipine and lipitor. - Will hold amlodipine (afterload issues) and start metoprolol tartrate 12.5 mg PO BID. Consider diuretics next prn. ID: Reported recent "cold" symptoms may have just been cough + SOB due to PE's. Was seen by PCM on 19Apr, placed on prednisone, an "antibiotic", and albuterol without much relief. Technically SIRS on admit but no known (or suspected) source. Remains afebrile. WBC 9. Tachycardia resolved. Influenza negative. - 23Apr BCx x 2 pending. Endo: Admit glucose 536. Given novolin 10 units x 1 then started on sliding scale. Recheck glucose 139. HbA1c 11. TSH normal. - Starting lantus 10 mg BID. Monitoring glucose. Renal/Lytes: Admit MARIA ALEJANDRA with Cr 1.61, improved to 1.17. No known underlying renal disease, though PMH of BPH vs prostatitis. On home flomax. - Hyponatremia: Admit Na 132. Now resolved. Monitoring. GI: No known baseline issues. Denies abdominal pain or recent N/V/D. Did have a very minimal AST elevation. - Hepatitis panel pending. Heme: Hb 14, platelets 136, INR 1.1. No acute issues. DVT prophy: See "pulm" above. Lines: Right arm PIV. Left arm PIV. Code status: Full code. PT/OT: Deferred. Disposition: ICU care. Critically ill. Resident Physician Supervision Note: Dr. Farah was resident physician during care of patient. I separately evaluated patient and did history and exam. I discussed the case with the resident and generally agree with the findings and plan. Hemodynamics mildly improved today, still becomes very dyspneic with prolonged conversation and ambulation to commode. Started 12.5 mg metoprolol tolerated that well will increase to 25 tonight. Had extensive discussion regarding prognosis and dietary changes given the patient's A1c is greater than 11. Will have practice architect consult. Patient remains critically ill secondary to PE and cor pulmonale I have personally spent 50 minutes of critical care time in the direct management of this patient. This is a life/limb threatening event. This includes time spent evaluating patient, direct bedside care, chart review, placing orders, interpretation of diagnostic studies, discussion with consultants, patient, and/or family members regarding treatment decisions, as well as other required patient management activities. This time is exclusive of all separately billable procedures, and teaching time and separate from and in addition to any other critical care service time. Documented By: Silviano Reynolds DO Data Medications: Current Inpatient Medications Medications (Trade) Dose Ordered Sig/Adalberto Route Start Time Stop Time Status Last Admin Dose Admin Ioversol (Optiray 320) 125 ml UD PRN IV 07/11/17 10:45 07/15/17 10:44 Heparin Sodium/ Dextrose 500 ml @ 23 mls/hr [id number] IV 07/11/17 13:00 08/10/17 12:59 07/12/17 08:16 23 MLS/HR Acetaminophen (Tylenol Tab) 650 mg Q4H PRN PO 07/11/17 13:30 08/10/17 13:29 Miscellaneous Information ( Icu Electrolyte Replacement Protocol) 1 ea per protocol PRN N/A 07/11/17 13:30 07/18/17 13:29 Amlodipine Besylate (Norvasc Tab) 10 mg DAILY PO 07/12/17 09:00 08/11/17 08:59 Future Hold 07/12/17 08:18 10 MG Atorvastatin Calcium (Lipitor Tab) 40 mg DAILY PO 07/12/17 09:00 08/11/17 08:59 07/12/17 08:17 40 MG Finasteride (Proscar Tab) 5 mg DAILY PO 07/12/17 09:00 08/11/17 08:59 07/12/17 08:18 5 MG Multivitamins (Multivitamin Tab) 1 tab DAILY PO 07/12/17 09:00 08/11/17 08:59 07/12/17 08:17 1 TAB Pantoprazole Sodium (Protonix Tab) 40 mg DAILY PO 07/12/17 09:00 08/11/17 08:59 07/12/17 08:18 40 MG Tamsulosin HCl (Flomax Cap) 0.4 mg DAILY PO 07/12/17 09:00 08/11/17 08:59 07/12/17 08:17 0.4 MG Parenteral Electrolyte Solution 1,000 ml @ 100 mls/hr Q10H IV 07/11/17 14:45 08/10/17 14:44 07/12/17 08:16 100 MLS/HR Insulin Aspart (novoLOG ASPART) SLIDING SCALE G... ACHS SC 07/11/17 21:00 08/10/17 20:59 07/12/17 08:22 10 UNITS Metoprolol Tartrate (Lopressor Tab) 12.5 mg BID PO 07/12/17 21:00 08/11/17 20:59 Insulin Glargine (Lantus Solostar Pen) 10 units BID SC 07/12/17 10:30 08/11/17 10:29 07/12/17 10:59 10 UNITS Vital Signs: Date Time Temp Pulse Resp B/P (MAP) Pulse Ox O2 Delivery O2 Flow Rate FiO2 07/12/17 10:00 83 20 155/102 (119) 95 Room Air 07/12/17 08:00 36.6 91 20 135/92 (106) 96 Nasal Cannula 2.0 07/12/17 08:00 99 Nasal Cannula 2.0 07/12/17 06:05 36.8 83 19 144/102 (116) 96 Nasal Cannula 2.0 07/12/17 04:02 Nasal Cannula 2.0 07/12/17 04:01 36.5 81 20 145/95 (112) 93 Nasal Cannula 2.0 07/12/17 02:17 36.8 84 24 156/99 (118) 96 Nasal Cannula 2.0 07/12/17 00:02 Nasal Cannula 2.0 07/12/17 00:02 36.8 84 22 143/95 (111) 93 Nasal Cannula 2.0 07/11/17 22:00 88 16 147/106 (120) 95 Nasal Cannula 2.0 07/11/17 20:00 Nasal Cannula 2.0 07/11/17 20:00 36.8 95 20 178/104 (128) 92 Nasal Cannula 2.0 07/11/17 18:00 36.8 88 20 177/100 (125) 97 Nasal Cannula 2.0 07/11/17 16:00 36.8 88 20 180/114 (136) 96 Nasal Cannula 2.0 07/11/17 16:00 96 Nasal Cannula 2.0 07/11/17 15:42 36.6 91 16 177/100 Room Air 07/11/17 15:13 92 16 97 07/11/17 14:18 36.5 07/11/17 13:44 93 Laboratory Results: Last 24 Hours Test 07/11/17 14:02 07/11/17 14:15 07/11/17 15:59 07/11/17 19:50 Bedside Glucose 139 mg/dl 140 mg/dl Activated Partial Thromboplast Time 130.5 SECONDS Partial Thromboplastin Ratio 5.0 Test 07/11/17 20:07 07/11/17 22:06 07/12/17 05:11 07/12/17 05:21 Bedside Glucose 204 mg/dl 163 mg/dl Activated Partial Thromboplast Time 60.1 SECONDS 54.2 SECONDS Partial Thromboplastin Ratio 2.3 2.1 Troponin I 0.097 ng/ml 0.066 ng/ml White Blood Count 9.27 K/uL Red Blood Count 4.55 M/uL Hemoglobin 13.9 g/dL Hematocrit 41.1 % Mean Corpuscular Volume 90.3 fL Mean Corpuscular Hemoglobin 30.5 pg Mean Corpuscular Hemoglobin Concent 33.8 g/dl Platelet Count 136 K/uL Mean Platelet Volume 11.4 fL Neutrophils (%) (Auto) 53.8 % Lymphocytes (%) (Auto) 33.7 % Monocytes (%) (Auto) 9.5 % Eosinophils (%) (Auto) 1.8 % Basophils (%) (Auto) 0.3 % Neutrophils # (Auto) 4.99 K/uL Lymphocytes # (Auto) 3.12 K/uL Monocytes # (Auto) 0.88 K/uL Eosinophils # (Auto) 0.17 K/uL Basophils # (Auto) 0.03 K/uL RDW Standard Deviation 42.1 fL RDW Coefficient of Variation 12.9 % Immature Granulocyte % (Auto) 0.9 % Immature Granulocyte # (Auto) 0.08 K/uL Sodium Level 137 mmol/L Potassium Level 3.9 mmol/L Chloride Level 104 mmol/L Carbon Dioxide Level 28 mmol/L Anion Gap 5.0 mmol/L Blood Urea Nitrogen 19 mg/dl Creatinine 1.17 mg/dl Est Creatinine Clear Calc Drug Dose 64.7 ml/min Estimated GFR () 73.8 Estimated GFR (Non- 63.7 BUN/Creatinine Ratio 16.6 Random Glucose 165 mg/dl Estimated Average Glucose 269 mg/dl Hemoglobin A1c 11.0 % Calcium Level 7.9 mg/dl Phosphorus Level 2.9 mg/dl Magnesium Level 2.1 mg/dl Test 07/12/17 11:09 Bedside Glucose 156 mg/dl Resident Tracking Resident Involvement: Resident Care Provided Care Provided: Adult Hospital Medicine (ICU)
--- NOTE | 2017-07-12 17:41 | Progress Note ---
Medicine Progress Note Date & Time of Visit: Jul 12, 2017 at 17:29. Subjective Patient complains of coughing that has been ongoing for several weeks but is non -productive. No overnight events noted. Tolerating PO without difficulty. Has been ambulating in room to the bathroom or the chair with some SMITH but overall feels less SOB compared to yesterday. No other complaints noted. Objective Last 8 Hrs Date Time Temp Pulse Resp B/P (MAP) Pulse Ox O2 Delivery O2 Flow Rate FiO2 07/12/17 14:00 86 20 126/98 (107) 95 Nasal Cannula 2.0 07/12/17 12:00 89 18 115/82 (93) 95 Nasal Cannula 2.0 07/12/17 12:00 94 Room Air 07/12/17 10:00 83 20 155/102 (119) 95 Room Air Physical Exam: GENERAL: Patient is in no acute distress. Some dyspnea while speaking full sentences HEENT: No acute trauma, normocephalic, mucous membranes moist, no nasal congestion, no scleral icterus. NECK: No stridor, trachea is midline. LUNGS: Clear to auscultation bilaterally, no wheeze, no rhonchi, breath sounds equal. HEART: Without murmurs gallops or rubs, regular rate and rhythm. ABDOMEN: Soft, nontender, bowel sounds positive EXTREMITIES: No cyanosis or edema, full range of motion of all the joints without pain or difficulty, no signs for acute trauma. NEUROLOGIC: Oriented x 3, no acute motor or sensory deficits, no focal weakness. SKIN: No rash, no jaundice, no diaphoresis. Laboratory Results: Last 24 Hours Test 07/11/17 19:50 07/11/17 20:07 07/11/17 22:06 07/12/17 05:11 Activated Partial Thromboplast Time 130.5 SECONDS 60.1 SECONDS 54.2 SECONDS Partial Thromboplastin Ratio 5.0 2.3 2.1 Bedside Glucose 204 mg/dl Troponin I 0.097 ng/ml 0.066 ng/ml White Blood Count 9.27 K/uL Red Blood Count 4.55 M/uL Hemoglobin 13.9 g/dL Hematocrit 41.1 % Mean Corpuscular Volume 90.3 fL Mean Corpuscular Hemoglobin 30.5 pg Mean Corpuscular Hemoglobin Concent 33.8 g/dl Platelet Count 136 K/uL Mean Platelet Volume 11.4 fL Neutrophils (%) (Auto) 53.8 % Lymphocytes (%) (Auto) 33.7 % Monocytes (%) (Auto) 9.5 % Eosinophils (%) (Auto) 1.8 % Basophils (%) (Auto) 0.3 % Neutrophils # (Auto) 4.99 K/uL Lymphocytes # (Auto) 3.12 K/uL Monocytes # (Auto) 0.88 K/uL Eosinophils # (Auto) 0.17 K/uL Basophils # (Auto) 0.03 K/uL RDW Standard Deviation 42.1 fL RDW Coefficient of Variation 12.9 % Immature Granulocyte % (Auto) 0.9 % Immature Granulocyte # (Auto) 0.08 K/uL Sodium Level 137 mmol/L Potassium Level 3.9 mmol/L Chloride Level 104 mmol/L Carbon Dioxide Level 28 mmol/L Anion Gap 5.0 mmol/L Blood Urea Nitrogen 19 mg/dl Creatinine 1.17 mg/dl Est Creatinine Clear Calc Drug Dose 64.7 ml/min Estimated GFR () 73.8 Estimated GFR (Non- 63.7 BUN/Creatinine Ratio 16.6 Random Glucose 165 mg/dl Estimated Average Glucose 269 mg/dl Hemoglobin A1c 11.0 % Calcium Level 7.9 mg/dl Phosphorus Level 2.9 mg/dl Magnesium Level 2.1 mg/dl Test 07/12/17 05:21 07/12/17 11:09 Bedside Glucose 163 mg/dl 156 mg/dl Assessment & Plan SADDLE PULMONARY EMBOLUS: -extensive B/L PE with extension into right atrium and resultant cor pulmonale as evidenced by TTE -remains in ICU -presented with increasing shortness of breath 3 weeks; in the ED, CTA chest showing saddle pulmonary embolus with extensive bilateral pulmonary emboli -maintaining good O2 sat on RA and occasionally 2L of oxygen, remaining VSS -started on heparin drip in the ER -possible risk factors include relative immobility but otherwise no recent travel, current non-smoker, no family history of clotting disorders -hypercoagulable workup in progress -TTE report: * -- Conclusions -- * The right ventricle is severely dilated. * The right ventricular systolic function is severely reduced. * The right atrium is moderately dilated. 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 * There is moderate tricuspid regurgitation. * The estimated systolic pulmonary arterial pressure is 73 mmHg. * Flattened septum is consistent with RV pressure/volume overload. * Dilated inferior vena cava with reduced collapsability with sniff indicates an elevated right atrial pressure of 15 mmHg * Ejection Fraction = 50-55%. -BL LE Dopplers: LLE DVT present -Appreciate Applications Development Analyst management MARIA ALEJANDRA: -likely from hypovolemia from hyperglycemia in combination with ARB/HCTZ use -Will hold losartan and hydrochlorothiazide, receiving Normosol 100 cc/hour -improving ELEVATED TROPONIN: -likely secondary to demand ischemia from acute PE/saddle pulmonary embolus -EKG shows T-wave inversions anteriorly -No reports of chest pain -troponins did not trend up significantly peaked at 0.097 and trended down -echocardiogram report as above HTN: -BPs elevated in ED -Likely due to anxiety/missing medications this morning -We will give home dose of amlodipine for now -Holding losartan and HCTZ as above -Admitting providers discussed with Applications Development Analyst, would like to avoid aggressive BP lowering at this time DM TYPE II: -BSGs were recently elevated due to use of steroids -was on insulin drip initially, now on subcutaneous insulin -continue to hold oral agents -Hgb A1c 9.0% 12/2016, repeat this admission was 11% DYSLIPIDEMIA: -continue statin BPH: -continue finasteride and tamsulosin Current Inpatient Medications: Current Inpatient Medications Medications (Trade) Dose Ordered Sig/Adalberto Route Start Time Stop Time Status Last Admin Dose Admin Ioversol (Optiray 320) 125 ml UD PRN IV 07/11/17 10:45 07/15/17 10:44 Heparin Sodium/ Dextrose 500 ml @ 23 mls/hr [id number] IV 07/11/17 13:00 08/10/17 12:59 07/12/17 08:16 23 MLS/HR Acetaminophen (Tylenol Tab) 650 mg Q4H PRN PO 07/11/17 13:30 08/10/17 13:29 Miscellaneous Information ( Icu Electrolyte Replacement Protocol) 1 ea per protocol PRN N/A 07/11/17 13:30 07/18/17 13:29 Amlodipine Besylate (Norvasc Tab) 10 mg DAILY PO 07/12/17 09:00 08/11/17 08:59 Future Hold 07/12/17 08:18 10 MG Atorvastatin Calcium (Lipitor Tab) 40 mg DAILY PO 07/12/17 09:00 08/11/17 08:59 07/12/17 08:17 40 MG Finasteride (Proscar Tab) 5 mg DAILY PO 07/12/17 09:00 08/11/17 08:59 07/12/17 08:18 5 MG Multivitamins (Multivitamin Tab) 1 tab DAILY PO 07/12/17 09:00 08/11/17 08:59 07/12/17 08:17 1 TAB Pantoprazole Sodium (Protonix Tab) 40 mg DAILY PO 07/12/17 09:00 08/11/17 08:59 07/12/17 08:18 40 MG Tamsulosin HCl (Flomax Cap) 0.4 mg DAILY PO 07/12/17 09:00 08/11/17 08:59 07/12/17 08:17 0.4 MG Parenteral Electrolyte Solution 1,000 ml @ 100 mls/hr Q10H IV 07/11/17 14:45 08/10/17 14:44 07/12/17 08:16 100 MLS/HR Insulin Aspart (novoLOG ASPART) SLIDING SCALE G... ACHS SC 07/11/17 21:00 08/10/17 20:59 07/12/17 17:00 18 UNITS Metoprolol Tartrate (Lopressor Tab) 12.5 mg BID PO 07/12/17 21:00 08/11/17 20:59 Insulin Glargine (Lantus Solostar Pen) 10 units BID SC 07/12/17 10:30 08/11/17 10:29 07/12/17 10:59 10 UNITS
[2017-07-12] MEDS: INSULIN GLARGINE SOLOSTAR 100 UNITS/ML 3 ML PEN SC SCH (20:43)
[2017-07-12] MEDS ORDERED: METOPROLOL TARTRATE 25 MG TAB PO SCH ×2 (21:00)
[2017-07-12 21:19] LABS: PTT PATIENT 50.4 SECONDS (21.0-31.0)
[2017-07-13] VITALS (14 sets, daily range): BP systolic 121–171; BP diastolic 79–104; PULSE 69–85; TEMP 36.5–36.9; O2SAT 91–97; Ht 170.2 cm; Wt 92.2 kg
[2017-07-13 04:50] LABS: BASO % 0.1 %; BASO ABS # 0.01 K/uL (0-0.2); EOS % 2.2 %; EOS ABS # 0.16 K/uL (0-0.5); HEMATOCRIT 37.5 % (42-52); HEMOGLOBIN 12.6 g/dL (14.0-18.0); IG# 0.03 K/uL (0.00-0.02); LYMPH % 38.4 %; LYMPH ABS # 2.74 K/uL (1.2-3.4); MEAN CELL VOLUME 89.9 fL (80-100); MEAN CORPUSCULAR HEMOGLOBIN 30.2 pg (25-34); MEAN CORPUSCULAR HGB CONC 33.6 g/dl (32-36); MEAN PLATELET VOLUME 10.9 fL (7.4-10.4); MONO % 8.3 %; MONO ABS # 0.59 K/uL (0.11-0.59); NEUT % 50.6 %; PLATELET COUNT 125 K/uL (130-400); RED CELL DISTRIBUTION WIDTH CV 12.7 % (11.5-14.5); WHITE BLOOD COUNT 7.13 K/uL (4.8-10.8)
[2017-07-13 05:07] LABS: CREATININE 1.14 mg/dl (0.60-1.40); POTASSIUM 3.5 mmol/L (3.5-5.1)
[2017-07-13 05:15] LABS: PHOSPHORUS 3.5 mg/dl (2.5-4.9)
[2017-07-13 05:21] LABS: PTT PATIENT 56.2 SECONDS (21.0-31.0)
[2017-07-13] MEDS: HEPARIN 25,000 UNIT/500ML D5W 500 ML IV SCH (06:00)
[2017-07-13] MEDS: MULTIVITAMIN TAB PO SCH (08:30)
[2017-07-13] MEDS: FINASTERIDE 5 MG TAB PO SCH (08:30)
[2017-07-13] MEDS: PANTOprazole SOD 40 MG TAB PO SCH (08:30)
[2017-07-13] MEDS: TAMSULOSIN HCL 0.4 MG CAP PO SCH (08:31)
[2017-07-13] MEDS: ATORVASTATIN 40 MG TAB PO SCH (08:31)
[2017-07-13] MEDS: INSULIN GLARGINE SOLOSTAR 100 UNITS/ML 3 ML PEN SC SCH ×2 (08:35→21:26)
[2017-07-13] MEDS: INSULIN ASPART 100 UNITS/ML 3 ML PEN SC SCH ×4 (08:35→21:26)
[2017-07-13] MEDS: METOPROLOL TARTRATE 50 MG TAB PO SCH ×2 (09:11→21:22)
--- NOTE | 2017-07-13 11:22 | Critical Care Progress Note ---
Critical Care Progress Note Date of Service Jul 13, 2017. Attending Dr. Reynolds Subjective Found patient sitting up in bed this morning, eating his breakfast. Says overall he feels improved. He says he has improved shortness of breath when he is walking and very rare shortness of breath at rest. He continues to deny any chest pain or discomfort. No particular acute concerns expressed this morning. He says his prior left knee pain has resolved. He thinks it was due to his crossing his legs a bit yesterday. Objective General Appearance: Awake, alert & oriented, comfortable in general (but still gets SOB with light exertion), NAD in bed or chair. CV: +S1S2 RRR, no murmur. Pulm: Clear to auscultation throughout. Nasal cannula oxygen in place. Abdomen: +BS, soft, non-tender, non-distended. Extremities: No pedal edema or calf tenderness. Moving all extremities naturally and easily. Normal distal sensation and cap refill. Neuro: No gross neuro deficits. Assessment & Plan 66 yo male admitted on [id number] for SOB and saddle embolus on CT chest. PMH: Prostatitis, HLD, GERD, HTN, lumbar back pain, DM type 2 PSH: Shoulder surgery. 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 No longer complaining of any knee pain. No known acute issues. Pulm: CTA chest and cardiac echo noted significant saddle PE, extensive bilateral pulmonary PE's, and thrombus in right atrium/ventricle. U/s of legs noted DVT on left and u/s of liver vasculature was normal (see full reports). Improved but persistent exertional SOB, remains on NC oxygen. Ongoing heparin drip. Remains hemodynamically stable. - Begin Coumadin 10 mg daily. Plan for heparin bridge for a minimum of 5 days. - Wean oxygen as tolerated. - Anticoagulation factors workup ordered, pending results. CVS: No known underlying cardiac disease, but PMH HTN + HLD + DM2. Continues to deny chest pain/pressure. Initial EKG okay (see report). TnI trended no higher than 0.097, likely demand ischemia. Echo noted clot as above along with severe RV dilatation and estimated PAP 73. Held home amlodipine (afterload issues). On home Lipitor. - Stopping IV fluids. Will increase his metoprolol tartrate to 25 mg p.o. BID ( for cor pulmonale). Consider diuretics next prn. ID: Reported recent "cold" symptoms may have just been cough + SOB due to PE's. Was seen by PCM on 19Apr, placed on prednisone, an "antibiotic", and albuterol without much relief. Technically SIRS on admit but no known (or suspected) source. Remains afebrile. WBC 7. Tachycardia resolved. Influenza negative. 23Apr BCx x 2 no growth to date. Endo: Admit glucose 536. Given novolin 10 units x 1 then started on sliding scale. HbA1c 11. TSH normal. Started Lantus here. Diabetic education ordered. - Increase Lantus to 20 mg twice daily. Renal/Lytes: Admit MARIA ALEJANDRA with Cr 1.61, improved to 1.14. No known underlying renal disease, though PMH of BPH vs prostatitis. On home flomax and Proscar. - Hyponatremia: Admit Na 132. Now resolved. Monitoring. GI: No known baseline issues. Denies abdominal pain or recent N/V/D. Did have a very minimal AST elevation. Hepatitis A/B/C negative. Heme: Hb 12, platelets 125, INR 1.1. On heparin as above. No acute issues. DVT prophy: See "pulm" above. Lines: Right arm PIV. Left arm PIV. Code status: Full code. PT/OT: Deferred. Disposition: ICU care. Stable for downgrade to telemetry. Resident Physician Supervision Note: Dr. Farah was resident physician during care of patient. I separately evaluated patient and did history and exam. I discussed the case with the resident and generally agree with the findings and plan. Increased beta-maddy today, start Coumadin. Significant improvement in symptoms. Stable for downgrade out of the ICU to telemetry status. Patient was discussed on multidisciplinary rounds Documented By: Silviano Reynolds DO Consults & Procedures Procedures: 11 July CTA chest 11 July chest x-ray 11 July venous bilateral lower extremity ultrasound 11 July liver ultrasound Data Medications: Current Inpatient Medications Medications (Trade) Dose Ordered Sig/Adalberto Route Start Time Stop Time Status Last Admin Dose Admin Ioversol (Optiray 320) 125 ml UD PRN IV 07/11/17 10:45 07/15/17 10:44 Heparin Sodium/ Dextrose 500 ml @ 23 mls/hr [id number] IV 07/11/17 13:00 08/10/17 12:59 07/13/17 06:00 23 MLS/HR Acetaminophen (Tylenol Tab) 650 mg Q4H PRN PO 07/11/17 13:30 08/10/17 13:29 Miscellaneous Information ( Icu Electrolyte Replacement Protocol) 1 ea per protocol PRN N/A 07/11/17 13:30 07/18/17 13:29 Amlodipine Besylate (Norvasc Tab) 10 mg DAILY PO 07/12/17 09:00 08/11/17 08:59 Future Hold 07/12/17 08:18 10 MG Atorvastatin Calcium (Lipitor Tab) 40 mg DAILY PO 07/12/17 09:00 08/11/17 08:59 07/13/17 08:31 40 MG Finasteride (Proscar Tab) 5 mg DAILY PO 07/12/17 09:00 08/11/17 08:59 07/13/17 08:30 5 MG Multivitamins (Multivitamin Tab) 1 tab DAILY PO 07/12/17 09:00 08/11/17 08:59 07/13/17 08:30 1 TAB Pantoprazole Sodium (Protonix Tab) 40 mg DAILY PO 07/12/17 09:00 08/11/17 08:59 07/13/17 08:30 40 MG Tamsulosin HCl (Flomax Cap) 0.4 mg DAILY PO 07/12/17 09:00 08/11/17 08:59 07/13/17 08:31 0.4 MG Insulin Aspart (novoLOG ASPART) SLIDING SCALE G... ACHS SC 07/11/17 21:00 08/10/17 20:59 07/13/17 08:35 7 UNITS Insulin Glargine (Lantus Solostar Pen) 20 units BID SC 07/12/17 21:00 08/11/17 10:29 07/13/17 08:35 20 UNITS Metoprolol Tartrate (Lopressor Tab) 50 mg BID PO 07/13/17 09:00 08/12/17 08:59 07/13/17 09:11 50 MG Warfarin Sodium (Coumadin Tab) 10 mg TODAY@1600 ONCE PO 07/13/17 16:00 07/13/17 16:01 Vital Signs: Date Time Temp Pulse Resp B/P (MAP) Pulse Ox O2 Delivery O2 Flow Rate FiO2 07/13/17 08:00 Nasal Cannula 2.0 07/13/17 08:00 36.8 82 20 150/87 (108) 96 Nasal Cannula 2.0 07/13/17 06:01 144/85 (104) 95 Nasal Cannula 2.0 07/13/17 05:01 73 142/95 (111) 96 07/13/17 04:01 36.9 75 164/104 (124) 97 Nasal Cannula 2.0 07/13/17 04:00 Nasal Cannula 2.0 07/13/17 03:01 74 149/96 (113) 96 07/13/17 02:01 69 153/102 (119) 95 07/13/17 01:01 70 150/102 (118) 96 07/13/17 00:01 36.7 70 132/99 (110) 95 Nasal Cannula 2.0 07/12/17 23:59 Nasal Cannula 2.0 07/12/17 23:01 83 134/93 (107) 94 07/12/17 21:01 83 22 144/94 (111) 95 Nasal Cannula 2.0 07/12/17 20:01 36.8 86 20 141/81 (101) 96 Nasal Cannula 2.0 07/12/17 20:00 94 Nasal Cannula 2.0 07/12/17 19:01 88 20 139/87 (104) 97 Nasal Cannula 2.0 07/12/17 18:01 98 20 126/92 (103) 97 Nasal Cannula 2.0 07/12/17 17:03 90 20 132/82 (99) 97 Nasal Cannula 2.0 07/12/17 16:00 94 Nasal Cannula 2.0 07/12/17 15:01 36.9 84 18 126/98 (107) 94 Nasal Cannula 2.0 07/12/17 14:00 86 20 126/98 (107) 95 Nasal Cannula 2.0 07/12/17 12:00 89 18 115/82 (93) 95 Nasal Cannula 2.0 07/12/17 12:00 94 Room Air Laboratory Results: Last 24 Hours Test 07/12/17 11:09 07/12/17 16:03 07/12/17 19:55 07/12/17 20:31 Bedside Glucose 156 mg/dl 274 mg/dl 96 mg/dl Activated Partial Thromboplast Time 50.4 SECONDS Partial Thromboplastin Ratio 1.9 Test 07/13/17 04:33 White Blood Count 7.13 K/uL Red Blood Count 4.17 M/uL Hemoglobin 12.6 g/dL Hematocrit 37.5 % Mean Corpuscular Volume 89.9 fL Mean Corpuscular Hemoglobin 30.2 pg Mean Corpuscular Hemoglobin Concent 33.6 g/dl Platelet Count 125 K/uL Mean Platelet Volume 10.9 fL Neutrophils (%) (Auto) 50.6 % Lymphocytes (%) (Auto) 38.4 % Monocytes (%) (Auto) 8.3 % Eosinophils (%) (Auto) 2.2 % Basophils (%) (Auto) 0.1 % Neutrophils # (Auto) 3.60 K/uL Lymphocytes # (Auto) 2.74 K/uL Monocytes # (Auto) 0.59 K/uL Eosinophils # (Auto) 0.16 K/uL Basophils # (Auto) 0.01 K/uL RDW Standard Deviation 41.0 fL RDW Coefficient of Variation 12.7 % Immature Granulocyte % (Auto) 0.4 % Immature Granulocyte # (Auto) 0.03 K/uL Activated Partial Thromboplast Time 56.2 SECONDS Partial Thromboplastin Ratio 2.2 Sodium Level 137 mmol/L Potassium Level 3.5 mmol/L Chloride Level 104 mmol/L Carbon Dioxide Level 29 mmol/L Anion Gap 4.0 mmol/L Blood Urea Nitrogen 20 mg/dl Creatinine 1.14 mg/dl Est Creatinine Clear Calc Drug Dose 66.4 ml/min Estimated GFR () 76.2 Estimated GFR (Non- 65.7 BUN/Creatinine Ratio 17.5 Random Glucose 114 mg/dl Calcium Level 8.0 mg/dl Phosphorus Level 3.5 mg/dl Magnesium Level 2.3 mg/dl Resident Tracking Resident Involvement: Resident Care Provided Care Provided: Adult Hospital Medicine (ICU)
[2017-07-13] MEDS ORDERED: WARFARIN SOD 5 MG TAB PO ONE (16:00)
--- NOTE | 2017-07-13 17:23 | Progress Note ---
Medicine Progress Note Date & Time of Visit: Jul 13, 2017 at 17:23. Subjective Patient doing better, states his SOB is improving and he feels he is able to get a slightly deeper breath. Still has a nagging cough but thinks it is less frequent. No overnight events noted. Tolerating PO without difficulty. All questions were answered. Attempted to call patients 3x and left a voicemail. Occasional back pain with coughing which he states has been ongoing. Objective Last 8 Hrs Date Time Temp Pulse Resp B/P (MAP) Pulse Ox O2 Delivery O2 Flow Rate FiO2 07/13/17 15:13 36.8 76 20 93 07/13/17 12:00 Room Air 07/13/17 12:00 36.8 76 20 121/79 (93) 93 Room Air 07/13/17 10:00 77 20 94 Room Air Physical Exam: GENERAL: Patient is in no acute distress. No dyspnea while speaking full sentences HEENT: No acute trauma, normocephalic, mucous membranes moist, no nasal congestion, no scleral icterus. NECK: No stridor, trachea is midline. LUNGS: Clear to auscultation bilaterally, no wheeze, no rhonchi, breath sounds equal. HEART: Without murmurs gallops or rubs, regular rate and rhythm. ABDOMEN: Soft, nontender, bowel sounds positive EXTREMITIES: No cyanosis or edema, full range of motion of all the joints without pain or difficulty, no signs for acute trauma. NEUROLOGIC: Oriented x 3, no acute motor or sensory deficits, no focal weakness. SKIN: No rash, no jaundice, no diaphoresis. Laboratory Results: Last 24 Hours Test 07/12/17 19:55 07/12/17 20:31 07/13/17 04:33 07/13/17 16:18 Activated Partial Thromboplast Time 50.4 SECONDS 56.2 SECONDS Partial Thromboplastin Ratio 1.9 2.2 Bedside Glucose 96 mg/dl 102 mg/dl White Blood Count 7.13 K/uL Red Blood Count 4.17 M/uL Hemoglobin 12.6 g/dL Hematocrit 37.5 % Mean Corpuscular Volume 89.9 fL Mean Corpuscular Hemoglobin 30.2 pg Mean Corpuscular Hemoglobin Concent 33.6 g/dl Platelet Count 125 K/uL Mean Platelet Volume 10.9 fL Neutrophils (%) (Auto) 50.6 % Lymphocytes (%) (Auto) 38.4 % Monocytes (%) (Auto) 8.3 % Eosinophils (%) (Auto) 2.2 % Basophils (%) (Auto) 0.1 % Neutrophils # (Auto) 3.60 K/uL Lymphocytes # (Auto) 2.74 K/uL Monocytes # (Auto) 0.59 K/uL Eosinophils # (Auto) 0.16 K/uL Basophils # (Auto) 0.01 K/uL RDW Standard Deviation 41.0 fL RDW Coefficient of Variation 12.7 % Immature Granulocyte % (Auto) 0.4 % Immature Granulocyte # (Auto) 0.03 K/uL Sodium Level 137 mmol/L Potassium Level 3.5 mmol/L Chloride Level 104 mmol/L Carbon Dioxide Level 29 mmol/L Anion Gap 4.0 mmol/L Blood Urea Nitrogen 20 mg/dl Creatinine 1.14 mg/dl Est Creatinine Clear Calc Drug Dose 66.4 ml/min Estimated GFR () 76.2 Estimated GFR (Non- 65.7 BUN/Creatinine Ratio 17.5 Random Glucose 114 mg/dl Calcium Level 8.0 mg/dl Phosphorus Level 3.5 mg/dl Magnesium Level 2.3 mg/dl Assessment & Plan SADDLE PULMONARY EMBOLUS: -extensive B/L PE with extension into right atrium and resultant acute cor pulmonale as evidenced by TTE -was in ICU, transferred to [facility] -presented with increasing shortness of breath 3 weeks; in the ED, CTA chest showing saddle pulmonary embolus with extensive bilateral pulmonary emboli -maintaining good O2 sat on RA and occasionally 2L of oxygen, remaining VSS -on heparin drip; coumadin started today, discussed with the patient why choice of coumadin vs other oral anticoagulants -possible risk factors include relative immobility but otherwise no recent travel, current non-smoker, no family history of clotting disorders -hypercoagulable workup in progress -TTE report: * -- Conclusions -- * The right ventricle is severely dilated. * The right ventricular systolic function is severely reduced. * The right atrium is moderately dilated. 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 * There is moderate tricuspid regurgitation. * The estimated systolic pulmonary arterial pressure is 73 mmHg. * Flattened septum is consistent with RV pressure/volume overload. * Dilated inferior vena cava with reduced collapsability with sniff indicates an elevated right atrial pressure of 15 mmHg * Ejection Fraction = 50-55%. -BL LE Dopplers: LLE DVT present -Appreciate [employer] Consultant management MARIA ALEJANDRA: -likely from hypovolemia from hyperglycemia in combination with ARB/HCTZ use -Will hold losartan and hydrochlorothiazide, received Normosol 100 cc/hour, now off -resolved ELEVATED TROPONIN: -likely secondary to demand ischemia from acute PE/saddle pulmonary embolus -EKG shows T-wave inversions anteriorly -No reports of chest pain -troponins did not trend up significantly peaked at 0.097 and trended down -echocardiogram report as above HTN: -BPs elevated in ED -Likely due to anxiety/missing medications this morning -We will give home dose of amlodipine for now -Holding losartan and HCTZ as above -Admitting providers discussed with [employer] Consultant, would like to avoid aggressive BP lowering at this time DM TYPE II: -BSGs were recently elevated due to use of steroids -was on insulin drip initially, now on subcutaneous insulin -continue to hold oral agents -Hgb A1c 9.0% 12/2016, repeat this admission was 11% DYSLIPIDEMIA: -continue statin BPH: -continue finasteride and tamsulosin Current Inpatient Medications: Current Inpatient Medications Medications (Trade) Dose Ordered Sig/Adalberto Route Start Time Stop Time Status Last Admin Dose Admin Ioversol (Optiray 320) 125 ml UD PRN IV 07/11/17 10:45 07/15/17 10:44 Heparin Sodium/ Dextrose 500 ml @ 23 mls/hr [id number] IV 07/11/17 13:00 08/10/17 12:59 07/13/17 06:00 23 MLS/HR Acetaminophen (Tylenol Tab) 650 mg Q4H PRN PO 07/11/17 13:30 08/10/17 13:29 Miscellaneous Information ( Icu Electrolyte Replacement Protocol) 1 ea per protocol PRN N/A 07/11/17 13:30 07/18/17 13:29 Amlodipine Besylate (Norvasc Tab) 10 mg DAILY PO 07/12/17 09:00 08/11/17 08:59 Future Hold 07/12/17 08:18 10 MG Atorvastatin Calcium (Lipitor Tab) 40 mg DAILY PO 07/12/17 09:00 08/11/17 08:59 07/13/17 08:31 40 MG Finasteride (Proscar Tab) 5 mg DAILY PO 07/12/17 09:00 08/11/17 08:59 07/13/17 08:30 5 MG Multivitamins (Multivitamin Tab) 1 tab DAILY PO 07/12/17 09:00 08/11/17 08:59 07/13/17 08:30 1 TAB Pantoprazole Sodium (Protonix Tab) 40 mg DAILY PO 07/12/17 09:00 08/11/17 08:59 07/13/17 08:30 40 MG Tamsulosin HCl (Flomax Cap) 0.4 mg DAILY PO 07/12/17 09:00 08/11/17 08:59 07/13/17 08:31 0.4 MG Insulin Aspart (novoLOG ASPART) SLIDING SCALE G... ACHS SC 07/11/17 21:00 08/10/17 20:59 07/13/17 12:11 11 UNITS Insulin Glargine (Lantus Solostar Pen) 20 units BID SC 07/12/17 21:00 08/11/17 10:29 07/13/17 08:35 20 UNITS Metoprolol Tartrate (Lopressor Tab) 50 mg BID PO 07/13/17 09:00 08/12/17 08:59 07/13/17 09:11 50 MG
[2017-07-13] MEDS ORDERED: COUGH DROP (SUGAR FREE) LOZ 24 LOZ/1 BOX LOZ ONE (23:40)
[2017-07-14] VITALS (9 sets, daily range): BP systolic 124–159; BP diastolic 74–94; PULSE 68–79; TEMP 36.4–36.6; O2SAT 95–99
[2017-07-14] MEDS: HEPARIN 25,000 UNIT/500ML D5W 500 ML IV SCH ×2 (01:36→10:20)
[2017-07-14] MEDS: ATORVASTATIN 40 MG TAB PO SCH (07:41)
[2017-07-14] MEDS: PANTOprazole SOD 40 MG TAB PO SCH (07:41)
[2017-07-14] MEDS: MULTIVITAMIN TAB PO SCH (07:41)
[2017-07-14] MEDS: FINASTERIDE 5 MG TAB PO SCH (07:42)
[2017-07-14] MEDS: TAMSULOSIN HCL 0.4 MG CAP PO SCH (07:42)
[2017-07-14] MEDS: METOPROLOL TARTRATE 50 MG TAB PO SCH ×2 (07:42→20:13)
[2017-07-14] MEDS: INSULIN ASPART 100 UNITS/ML 3 ML PEN SC SCH ×4 (07:45→21:00)
[2017-07-14] MEDS: INSULIN GLARGINE SOLOSTAR 100 UNITS/ML 3 ML PEN SC SCH ×2 (07:46→21:09)
[2017-07-14 09:22] LABS: BASO % 0.3 %; BASO ABS # 0.02 K/uL (0-0.2); EOS % 2.3 %; EOS ABS # 0.17 K/uL (0-0.5); HEMATOCRIT 39.8 % (42-52); HEMOGLOBIN 13.5 g/dL (14.0-18.0); IG# 0.03 K/uL (0.00-0.02); LYMPH % 23.4 %; LYMPH ABS # 1.76 K/uL (1.2-3.4); MEAN CELL VOLUME 90.2 fL (80-100); MEAN CORPUSCULAR HEMOGLOBIN 30.6 pg (25-34); MEAN CORPUSCULAR HGB CONC 33.9 g/dl (32-36); MEAN PLATELET VOLUME 10.8 fL (7.4-10.4); MONO % 7.7 %; MONO ABS # 0.58 K/uL (0.11-0.59); NEUT % 65.9 %; NEUT ABS # 4.95 K/uL (1.4-6.5); PLATELET COUNT 152 K/uL (130-400); RED CELL DISTRIBUTION WIDTH CV 12.9 % (11.5-14.5); RED CELL DISTRIBUTION WIDTH SD 42.2 fL (36.4-46.3); WHITE BLOOD COUNT 7.51 K/uL (4.8-10.8)
[2017-07-14 09:32] LABS: INR 1.1 (0.9-1.1); PTT PATIENT 43.9 SECONDS (21.0-31.0)
[2017-07-14] MEDS ORDERED: HEPARIN IV BOLUS 3,000 UNIT in SYRINGE 0 ML IV ONE (10:00)
[2017-07-14 10:08] LABS: CREATININE 1.14 mg/dl (0.60-1.40); PHOSPHORUS 3.5 mg/dl (2.5-4.9); POTASSIUM 3.4 mmol/L (3.5-5.1)
[2017-07-14] MEDS ORDERED: POTASSIUM CHLORIDE 10 MEQ TABCR PO STA (10:35)
[2017-07-14] MEDS ORDERED: WARFARIN SOD 5 MG TAB PO ONE (16:00)
[2017-07-14] MEDS ORDERED: WARFARIN SOD 5 MG TAB PO SCH (16:00)
--- NOTE | 2017-07-14 16:30 | DIAGNOSTIC IMAGING REPORT ---
CHEST 2 VIEWS ROUTINE CLINICAL HISTORY: Worsening cough, eval for effusion/pneumonia cough. Dyspnea. COMPARISON STUDY: 07/11/2017 FINDINGS: The bones soft tissues and hemidiaphragms are normal. The cardiomediastinal silhouette is normal. The lungs are clear. The pulmonary vasculature is normal. IMPRESSION: Negative chest. The above report was generated using voice recognition software. It may contain grammatical, syntax or spelling errors. Electronically signed by: Allen Stoner M.D. 07/14/2017 4:29 PM Dictated Date/Time: 07/14/2017 4:28 PM
[2017-07-14 16:46] LABS: PTT PATIENT 56.6 SECONDS (21.0-31.0)
--- NOTE | 2017-07-14 17:42 | Progress Note ---
Medicine Progress Note Date & Time of Visit: Jul 14, 2017 at 17:42. Subjective Patient doing ok, states he had some acute SOB last night but thinks it was from the air being on and too cold. No other complaints at this time. Family at the bedside and were updated. SOB seems to be slowly improving, less dyspneic with speaking and small amounts of activity. Objective Last 8 Hrs Date Time Temp Pulse Resp B/P (MAP) Pulse Ox O2 Delivery O2 Flow Rate FiO2 07/14/17 16:07 36.5 75 20 138/76 (96) 95 Room Air 07/14/17 16:00 95 Room Air 07/14/17 12:00 Room Air 07/14/17 11:35 36.6 76 18 128/78 (95) 96 Room Air Physical Exam: GENERAL: Patient is in no acute distress. No dyspnea while speaking full sentences HEENT: No acute trauma, normocephalic, mucous membranes moist, no nasal congestion, no scleral icterus. NECK: No stridor, trachea is midline. LUNGS: Clear to auscultation bilaterally, no wheeze, no rhonchi, breath sounds equal. HEART: Without murmurs gallops or rubs, regular rate and rhythm. ABDOMEN: Soft, nontender, bowel sounds positive EXTREMITIES: No cyanosis or edema, full range of motion of all the joints without pain or difficulty, no signs for acute trauma. NEUROLOGIC: Oriented x 3, no acute motor or sensory deficits, no focal weakness. SKIN: No rash, no jaundice, no diaphoresis. Laboratory Results: Last 24 Hours Test 07/13/17 20:40 07/14/17 06:47 07/14/17 08:59 07/14/17 11:19 Bedside Glucose 97 mg/dl 85 mg/dl 86 mg/dl White Blood Count 7.51 K/uL Red Blood Count 4.41 M/uL Hemoglobin 13.5 g/dL Hematocrit 39.8 % Mean Corpuscular Volume 90.2 fL Mean Corpuscular Hemoglobin 30.6 pg Mean Corpuscular Hemoglobin Concent 33.9 g/dl Platelet Count 152 K/uL Mean Platelet Volume 10.8 fL Neutrophils (%) (Auto) 65.9 % Lymphocytes (%) (Auto) 23.4 % Monocytes (%) (Auto) 7.7 % Eosinophils (%) (Auto) 2.3 % Basophils (%) (Auto) 0.3 % Neutrophils # (Auto) 4.95 K/uL Lymphocytes # (Auto) 1.76 K/uL Monocytes # (Auto) 0.58 K/uL Eosinophils # (Auto) 0.17 K/uL Basophils # (Auto) 0.02 K/uL RDW Standard Deviation 42.2 fL RDW Coefficient of Variation 12.9 % Immature Granulocyte % (Auto) 0.4 % Immature Granulocyte # (Auto) 0.03 K/uL Prothrombin Time 11.8 SECONDS Prothromb Time International Ratio 1.1 Activated Partial Thromboplast Time 43.9 SECONDS Partial Thromboplastin Ratio 1.7 Sodium Level 138 mmol/L Potassium Level 3.4 mmol/L Chloride Level 106 mmol/L Carbon Dioxide Level 25 mmol/L Anion Gap 7.0 mmol/L Blood Urea Nitrogen 21 mg/dl Creatinine 1.14 mg/dl Est Creatinine Clear Calc Drug Dose 67.7 ml/min Estimated GFR () 76.2 Estimated GFR (Non- 65.7 BUN/Creatinine Ratio 18.1 Random Glucose 80 mg/dl Calcium Level 9.0 mg/dl Phosphorus Level 3.5 mg/dl Magnesium Level 2.4 mg/dl Test 07/14/17 16:15 07/14/17 16:37 Activated Partial Thromboplast Time 56.6 SECONDS Partial Thromboplastin Ratio 2.2 Bedside Glucose 119 mg/dl Assessment & Plan SADDLE PULMONARY EMBOLUS: -extensive B/L PE with extension into right atrium and resultant acute cor pulmonale as evidenced by TTE -was in ICU, transferred to [facility] -presented with increasing shortness of breath 3 weeks; in the ED, CTA chest showing saddle pulmonary embolus with extensive bilateral pulmonary emboli -maintaining good O2 sat on RA and occasionally 2L of oxygen, remaining VSS -on heparin drip; coumadin started yesterday, discussed with the patient why choice of coumadin vs other oral anticoagulants -INR 1.1 today, unchanged from yesterday, will give 10 mg again today as per standard warfarin nomogram -possible risk factors include relative immobility but otherwise no recent travel, current non-smoker, no family history of clotting disorders -hypercoagulable workup labs are pending -TTE report: * -- Conclusions -- * The right ventricle is severely dilated. * The right ventricular systolic function is severely reduced. * The right atrium is moderately dilated. 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 * There is moderate tricuspid regurgitation. * The estimated systolic pulmonary arterial pressure is 73 mmHg. * Flattened septum is consistent with RV pressure/volume overload. * Dilated inferior vena cava with reduced collapsability with sniff indicates an elevated right atrial pressure of 15 mmHg * Ejection Fraction = 50-55%. -BL LE Dopplers: LLE DVT present -Appreciate Embosser Operator management MARIA ALEJANDRA: -likely from hypovolemia from hyperglycemia in combination with ARB/HCTZ use -Will hold losartan and hydrochlorothiazide, received Normosol 100 cc/hour, now off -resolved ELEVATED TROPONIN: -likely secondary to demand ischemia from acute PE/saddle pulmonary embolus -EKG shows T-wave inversions anteriorly -No reports of chest pain -troponins did not trend up significantly peaked at 0.097 and trended down -echocardiogram report as above HTN: -BPs elevated in ED -Likely due to anxiety/missing medications this morning -We will give home dose of amlodipine for now -Holding losartan and HCTZ as above -Admitting providers discussed with Embosser Operator, would like to avoid aggressive BP lowering at this time DM TYPE II: -BSGs were recently elevated due to use of steroids -was on insulin drip initially, now on subcutaneous insulin -continue to hold oral agents -Hgb A1c 9.0% 12/2016, repeat this admission was 11% DYSLIPIDEMIA: -continue statin BPH: -continue finasteride and tamsulosin Current Inpatient Medications: Current Inpatient Medications Medications (Trade) Dose Ordered Sig/Adalberto Route Start Time Stop Time Status Last Admin Dose Admin Ioversol (Optiray 320) 125 ml UD PRN IV 07/11/17 10:45 07/15/17 10:44 Heparin Sodium/ Dextrose 500 ml @ 26 mls/hr [id number] IV 07/11/17 13:00 08/10/17 12:59 07/14/17 10:20 26 MLS/HR Acetaminophen (Tylenol Tab) 650 mg Q4H PRN PO 07/11/17 13:30 08/10/17 13:29 Amlodipine Besylate (Norvasc Tab) 10 mg DAILY PO 07/12/17 09:00 08/11/17 08:59 Future Hold 07/12/17 08:18 10 MG Atorvastatin Calcium (Lipitor Tab) 40 mg DAILY PO 07/12/17 09:00 08/11/17 08:59 07/14/17 07:41 40 MG Finasteride (Proscar Tab) 5 mg DAILY PO 07/12/17 09:00 08/11/17 08:59 07/14/17 07:42 5 MG Multivitamins (Multivitamin Tab) 1 tab DAILY PO 07/12/17 09:00 08/11/17 08:59 07/14/17 07:41 1 TAB Pantoprazole Sodium (Protonix Tab) 40 mg DAILY PO 07/12/17 09:00 08/11/17 08:59 07/14/17 07:41 40 MG Tamsulosin HCl (Flomax Cap) 0.4 mg DAILY PO 07/12/17 09:00 08/11/17 08:59 07/14/17 07:42 0.4 MG Insulin Aspart (novoLOG ASPART) SLIDING SCALE G... ACHS SC 07/11/17 21:00 08/10/17 20:59 07/14/17 12:06 8 UNITS Insulin Glargine (Lantus Solostar Pen) 20 units BID SC 07/12/17 21:00 08/11/17 10:29 07/14/17 07:46 20 UNITS Metoprolol Tartrate (Lopressor Tab) 50 mg BID PO 07/13/17 09:00 08/12/17 08:59 07/14/17 07:42 50 MG
--- NOTE | 2017-07-14 22:02 | Progress Note ---
Post ICU Progress Note Date & Time Jul 14, 2017 at 22:02 Vital Signs Vital Signs Past 12 Hours Date Time Temp Pulse Resp B/P (MAP) Pulse Ox O2 Delivery O2 Flow Rate FiO2 07/14/17 20:00 96 Room Air 07/14/17 19:55 36.5 79 20 159/94 (115) 95 Room Air 07/14/17 16:07 36.5 75 20 138/76 (96) 95 Room Air 07/14/17 16:00 95 Room Air 07/14/17 12:00 Room Air 07/14/17 11:35 36.6 76 18 128/78 (95) 96 Room Air Notes Mental Status: alert / awake, participated in evaluation Nausea / Vomiting: adequately controlled Pain: adequately controlled Airway Patency, RR, SpO2: stable & adequate BP & HR: stable & adequate Denis Lam is a 66-year-old gentleman who is admitted to the ICU on July [id number] secondary to saddle PE with extensive bilateral pulmonary embolism requiring heparin infusion. Patient remained stable while in the ICU and was downgraded to telemetry status the following day. Patient did not require intubation, central venous access or arterial lines. He does continue on heparin infusion at this time as well as Coumadin bridging. Patient states he feels much better and has been able to ambulate without needing to stop to take a break. No new findings on physical exam. Patient remains afebrile heart rate of 70 without hypertension or hypotension. Consider outpatient follow up in 1 to 2 weeks with: Dr. Apolinar Wayne Repeat imaging needed: Per Hospitalist team Follow up cultures: NA Reviewed progress notes, labs, and inpatient medication list Continue current management Additional recommendations: NONE Patient remains stable at this time thus critical care will sign off. Thank you for including us in the care of this patient; please feel free to reconsult as needed. CCT: 0 minutes; Level One inpatient billing not including any billable procedures. Thank you for including us in the care of this patient. Please review Dr. Silviano Reynolds's addendum for further recommendations. Consults & Procedures Procedures: 11 July CTA chest 11 July chest x-ray 11 July venous bilateral lower extremity ultrasound 11 July liver ultrasound
[2017-07-15] VITALS (10 sets, daily range): BP systolic 128–157; BP diastolic 77–91; PULSE 62–78; TEMP 36.4–36.7; O2SAT 95–98
[2017-07-15] MEDS: HEPARIN 25,000 UNIT/500ML D5W 500 ML IV SCH ×2 (02:20→09:57)
[2017-07-15 07:57] LABS: BASO % 0.4 %; BASO ABS # 0.02 K/uL (0-0.2); EOS % 3.2 %; EOS ABS # 0.18 K/uL (0-0.5); HEMATOCRIT 39.3 % (42-52); HEMOGLOBIN 13.3 g/dL (14.0-18.0); IG# 0.03 K/uL (0.00-0.02); LYMPH % 34.3 %; LYMPH ABS # 1.94 K/uL (1.2-3.4); MEAN CORPUSCULAR HEMOGLOBIN 30.8 pg (25-34); MEAN CORPUSCULAR HGB CONC 33.8 g/dl (32-36); MEAN PLATELET VOLUME 10.6 fL (7.4-10.4); MONO % 7.6 %; MONO ABS # 0.43 K/uL (0.11-0.59); NEUT ABS # 3.06 K/uL (1.4-6.5); PLATELET COUNT 137 K/uL (130-400); RED CELL DISTRIBUTION WIDTH CV 12.8 % (11.5-14.5); RED CELL DISTRIBUTION WIDTH SD 42.9 fL (36.4-46.3); WHITE BLOOD COUNT 5.66 K/uL (4.8-10.8)
[2017-07-15] MEDS: METOPROLOL TARTRATE 50 MG TAB PO SCH ×2 (08:00→21:19)
[2017-07-15] MEDS: TAMSULOSIN HCL 0.4 MG CAP PO SCH (08:00)
[2017-07-15] MEDS: FINASTERIDE 5 MG TAB PO SCH (08:01)
[2017-07-15] MEDS: ATORVASTATIN 40 MG TAB PO SCH (08:01)
[2017-07-15] MEDS: MULTIVITAMIN TAB PO SCH (08:01)
[2017-07-15] MEDS: PANTOprazole SOD 40 MG TAB PO SCH (08:01)
[2017-07-15] MEDS: INSULIN ASPART 100 UNITS/ML 3 ML PEN SC SCH ×4 (08:15→21:00)
[2017-07-15 08:16] LABS: INR 2.2 (0.9-1.1)
[2017-07-15] MEDS: INSULIN GLARGINE SOLOSTAR 100 UNITS/ML 3 ML PEN SC SCH ×2 (08:16→21:32)
[2017-07-15 08:24] LABS: PTT PATIENT 91.4 SECONDS (21.0-31.0)
[2017-07-15 08:30] LABS: CALCIUM 8.3 mg/dl (8.5-10.1); CREATININE 1.19 mg/dl (0.60-1.40); PHOSPHORUS 3.5 mg/dl (2.5-4.9); POTASSIUM 3.8 mmol/L (3.5-5.1)
[2017-07-15 15:50] LABS: PTT PATIENT 61.4 SECONDS (21.0-31.0)
[2017-07-15] MEDS ORDERED: WARFARIN SOD 5 MG TAB PO SCH (16:00)
--- NOTE | 2017-07-15 18:04 | Progress Note ---
Medicine Progress Note Date & Time of Visit: Jul 15, 2017 at 18:04. Subjective Patient doing better overall, states he has some occasional shortness of breath but feels the cough is better today. Seems to have more difficulty breathing at night which he feels is related to the cold air. No other overnight events noted. Tolerating PO. Walked with therapy and did fairly well. No other complaints. His was at the bedside and was updated. All questions were answered. Objective Last 8 Hrs Date Time Temp Pulse Resp B/P (MAP) Pulse Ox O2 Delivery O2 Flow Rate FiO2 07/15/17 16:30 36.5 73 20 142/78 (99) 95 Room Air 07/15/17 11:45 97 Room Air 07/15/17 11:34 36.7 66 18 128/83 (98) 97 Room Air Physical Exam: GENERAL: Patient is in no acute distress. No dyspnea while speaking full sentences HEENT: No acute trauma, normocephalic, mucous membranes moist, no nasal congestion, no scleral icterus. NECK: No stridor, trachea is midline. LUNGS: Clear to auscultation bilaterally, no wheeze, no rhonchi, breath sounds equal. HEART: Without murmurs gallops or rubs, regular rate and rhythm. ABDOMEN: Soft, nontender, bowel sounds positive EXTREMITIES: No cyanosis or edema, full range of motion of all the joints without pain or difficulty, no signs for acute trauma. NEUROLOGIC: Oriented x 3, no acute motor or sensory deficits, no focal weakness. SKIN: No rash, no jaundice, no diaphoresis. Laboratory Results: Last 24 Hours Test 07/14/17 20:32 07/15/17 07:11 07/15/17 07:21 07/15/17 07:47 Bedside Glucose 85 mg/dl 69 mg/dl 68 mg/dl White Blood Count 5.66 K/uL Red Blood Count 4.32 M/uL Hemoglobin 13.3 g/dL Hematocrit 39.3 % Mean Corpuscular Volume 91.0 fL Mean Corpuscular Hemoglobin 30.8 pg Mean Corpuscular Hemoglobin Concent 33.8 g/dl Platelet Count 137 K/uL Mean Platelet Volume 10.6 fL Neutrophils (%) (Auto) 54.0 % Lymphocytes (%) (Auto) 34.3 % Monocytes (%) (Auto) 7.6 % Eosinophils (%) (Auto) 3.2 % Basophils (%) (Auto) 0.4 % Neutrophils # (Auto) 3.06 K/uL Lymphocytes # (Auto) 1.94 K/uL Monocytes # (Auto) 0.43 K/uL Eosinophils # (Auto) 0.18 K/uL Basophils # (Auto) 0.02 K/uL RDW Standard Deviation 42.9 fL RDW Coefficient of Variation 12.8 % Immature Granulocyte % (Auto) 0.5 % Immature Granulocyte # (Auto) 0.03 K/uL Prothrombin Time 22.8 SECONDS Prothromb Time International Ratio 2.2 Activated Partial Thromboplast Time 91.4 SECONDS Partial Thromboplastin Ratio 3.5 Sodium Level 139 mmol/L Potassium Level 3.8 mmol/L Chloride Level 108 mmol/L Carbon Dioxide Level 27 mmol/L Anion Gap 5.0 mmol/L Blood Urea Nitrogen 19 mg/dl Creatinine 1.19 mg/dl Est Creatinine Clear Calc Drug Dose 65.1 ml/min Estimated GFR () 72.3 Estimated GFR (Non- 62.4 BUN/Creatinine Ratio 15.6 Random Glucose 78 mg/dl Calcium Level 8.3 mg/dl Phosphorus Level 3.5 mg/dl Magnesium Level 2.4 mg/dl Test 07/15/17 07:48 07/15/17 11:03 07/15/17 15:15 07/15/17 16:34 Bedside Glucose 92 mg/dl 141 mg/dl 89 mg/dl Activated Partial Thromboplast Time 61.4 SECONDS Partial Thromboplastin Ratio 2.4 Assessment & Plan SADDLE PULMONARY EMBOLUS: -extensive B/L PE with extension into right atrium and resultant acute cor pulmonale as evidenced by TTE -was in ICU, transferred to [facility] -presented with increasing shortness of breath 3 weeks; in the ED, CTA chest showing saddle pulmonary embolus with extensive bilateral pulmonary emboli -maintaining good O2 sat on RA and occasionally 2L of oxygen, remaining VSS -on heparin drip; coumadin started yesterday, discussed with the patient why choice of coumadin vs other oral anticoagulants -INR 2.2 today, will give 5 mg today as per standard warfarin nomogram and continue heparin drip for overlap until tomorrow -possible risk factors include relative immobility but otherwise no recent travel, current non-smoker, no family history of clotting disorders -hypercoagulable workup labs are pending -TTE report: * -- Conclusions -- * The right ventricle is severely dilated. * The right ventricular systolic function is severely reduced. * The right atrium is moderately dilated. 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 * There is moderate tricuspid regurgitation. * The estimated systolic pulmonary arterial pressure is 73 mmHg. * Flattened septum is consistent with RV pressure/volume overload. * Dilated inferior vena cava with reduced collapsability with sniff indicates an elevated right atrial pressure of 15 mmHg * Ejection Fraction = 50-55%. -B/L LE Dopplers: LLE DVT present -Appreciate Sausage Inspector management MARIA ALEJANDRA: -likely from hypovolemia from hyperglycemia in combination with ARB/HCTZ use -Will hold losartan and hydrochlorothiazide, received Normosol 100 cc/hour, now off -resolved ELEVATED TROPONIN: -likely secondary to demand ischemia from acute PE/saddle pulmonary embolus -EKG shows T-wave inversions anteriorly -No reports of chest pain -troponins did not trend up significantly peaked at 0.097 and trended down -echocardiogram report as above HTN: -BPs elevated in ED -Likely due to anxiety/missing medications this morning -continue amlodipine for now -Holding losartan and HCTZ as above -Admitting providers discussed with Sausage Inspector, would like to avoid aggressive BP lowering at this time -will restart losartan DM TYPE II: -BSGs were recently elevated due to use of steroids -was on insulin drip initially, now on subcutaneous insulin -continue to hold oral agents -Hgb A1c 9.0% 12/2016, repeat this admission was 11% DYSLIPIDEMIA: -continue statin BPH: -continue finasteride and tamsulosin Current Inpatient Medications: Current Inpatient Medications Medications (Trade) Dose Ordered Sig/Adalberto Route Start Time Stop Time Status Last Admin Dose Admin Heparin Sodium/ Dextrose 500 ml @ 23 mls/hr [id number] IV 07/11/17 13:00 08/10/17 12:59 07/15/17 09:57 23 MLS/HR Acetaminophen (Tylenol Tab) 650 mg Q4H PRN PO 07/11/17 13:30 08/10/17 13:29 Amlodipine Besylate (Norvasc Tab) 10 mg DAILY PO 07/12/17 09:00 08/11/17 08:59 Future Hold 07/12/17 08:18 10 MG Atorvastatin Calcium (Lipitor Tab) 40 mg DAILY PO 07/12/17 09:00 08/11/17 08:59 07/15/17 08:01 40 MG Finasteride (Proscar Tab) 5 mg DAILY PO 07/12/17 09:00 08/11/17 08:59 07/15/17 08:01 5 MG Multivitamins (Multivitamin Tab) 1 tab DAILY PO 07/12/17 09:00 08/11/17 08:59 07/15/17 08:01 1 TAB Pantoprazole Sodium (Protonix Tab) 40 mg DAILY PO 07/12/17 09:00 08/11/17 08:59 07/15/17 08:01 40 MG Tamsulosin HCl (Flomax Cap) 0.4 mg DAILY PO 07/12/17 09:00 08/11/17 08:59 07/15/17 08:00 0.4 MG Insulin Aspart (novoLOG ASPART) SLIDING SCALE G... ACHS SC 07/11/17 21:00 08/10/17 20:59 07/15/17 17:53 7 UNITS Metoprolol Tartrate (Lopressor Tab) 50 mg BID PO 07/13/17 09:00 08/12/17 08:59 07/15/17 08:00 50 MG Warfarin Sodium (Coumadin Tab) 5 mg DAILY@16 PO 07/15/17 16:00 08/14/17 15:59 07/15/17 15:53 5 MG Insulin Glargine (Lantus Solostar Pen) 18 units BID SC 07/15/17 21:00 08/11/17 10:29
[2017-07-16 03:50] VITALS: BP 148/84; PULSE 62; TEMP 36.5; O2SAT 96
[2017-07-16 06:56] LABS: BASO % 0.4 %; BASO ABS # 0.02 K/uL (0-0.2); EOS % 3.5 %; EOS ABS # 0.19 K/uL (0-0.5); HEMATOCRIT 37.3 % (42-52); HEMOGLOBIN 12.4 g/dL (14.0-18.0); IG# 0.02 K/uL (0.00-0.02); LYMPH % 36.9 %; LYMPH ABS # 1.99 K/uL (1.2-3.4); MEAN CORPUSCULAR HEMOGLOBIN 30.2 pg (25-34); MEAN CORPUSCULAR HGB CONC 33.2 g/dl (32-36); MEAN PLATELET VOLUME 10.2 fL (7.4-10.4); MONO % 9.6 %; MONO ABS # 0.52 K/uL (0.11-0.59); NEUT % 49.2 %; NEUT ABS # 2.65 K/uL (1.4-6.5); PLATELET COUNT 147 K/uL (130-400); RED CELL DISTRIBUTION WIDTH CV 13.1 % (11.5-14.5); RED CELL DISTRIBUTION WIDTH SD 42.7 fL (36.4-46.3); WHITE BLOOD COUNT 5.39 K/uL (4.8-10.8)
[2017-07-16 07:28] LABS: INR 4.4 (0.9-1.1)
[2017-07-16 07:30] LABS: CALCIUM 8.1 mg/dl (8.5-10.1); CREATININE 1.15 mg/dl (0.60-1.40); PHOSPHORUS 3.5 mg/dl (2.5-4.9); POTASSIUM 3.8 mmol/L (3.5-5.1)
[2017-07-16] MEDS: MULTIVITAMIN TAB PO SCH (08:12)
[2017-07-16] MEDS: ATORVASTATIN 40 MG TAB PO SCH (08:12)
[2017-07-16] MEDS: PANTOprazole SOD 40 MG TAB PO SCH (08:12)
[2017-07-16] MEDS: METOPROLOL TARTRATE 50 MG TAB PO SCH ×2 (08:13→20:16)
[2017-07-16] MEDS: TAMSULOSIN HCL 0.4 MG CAP PO SCH (08:13)
[2017-07-16] MEDS: FINASTERIDE 5 MG TAB PO SCH (08:13)
[2017-07-16 08:14] VITALS: BP 141/81; PULSE 66; TEMP 36.5; O2SAT 96
[2017-07-16] MEDS: INSULIN ASPART 100 UNITS/ML 3 ML PEN SC SCH ×4 (08:16→21:27)
[2017-07-16] MEDS: INSULIN GLARGINE SOLOSTAR 100 UNITS/ML 3 ML PEN SC SCH ×2 (08:16→21:28)
[2017-07-16] MEDS: LOSARTAN POTASSIUM 25 MG TAB PO SCH (09:38)
[2017-07-16 12:38] VITALS: BP 139/66; PULSE 68; TEMP 36.8; O2SAT 96
[2017-07-16 13:29] LABS: PTT PATIENT 33.9 SECONDS (21.0-31.0)
[2017-07-16 15:26] LABS: ANTICARDIOLIPID AB IGA <11 APL (< = 11)
[2017-07-16 17:04] VITALS: BP 161/79; PULSE 74; TEMP 37; O2SAT 97
--- NOTE | 2017-07-16 17:33 | Progress Note ---
Medicine Progress Note Date & Time of Visit: Jul 16, 2017 at 17:33. Subjective Patient doing well, denies any new complaints. States he occasionally has a cough and the SOB and cough get worse at night. Otherwise denies any complaints. No events noted on tele. Tolerating PO without difficulty. Has been trying to ambulate and notices some SMITH but not as severe as a few days ago. Objective Last 8 Hrs Date Time Temp Pulse Resp B/P (MAP) Pulse Ox O2 Delivery O2 Flow Rate FiO2 07/16/17 17:04 37.0 74 18 161/79 (106) 97 07/16/17 16:00 Room Air 07/16/17 12:38 36.8 68 18 139/66 (90) 96 07/16/17 12:00 Room Air Physical Exam: GENERAL: Patient is in no acute distress. No dyspnea while speaking full sentences HEENT: No acute trauma, normocephalic, mucous membranes moist, no nasal congestion, no scleral icterus. NECK: No stridor, trachea is midline. LUNGS: Clear to auscultation bilaterally, no wheeze, no rhonchi, breath sounds equal. HEART: Without murmurs gallops or rubs, regular rate and rhythm. ABDOMEN: Soft, nontender, bowel sounds positive EXTREMITIES: No cyanosis or edema, full range of motion of all the joints without pain or difficulty, no signs for acute trauma. NEUROLOGIC: Oriented x 3, no acute motor or sensory deficits, no focal weakness. SKIN: No rash, no jaundice, no diaphoresis. Laboratory Results: Last 24 Hours Test 07/15/17 20:53 07/16/17 06:47 07/16/17 07:26 07/16/17 11:27 Bedside Glucose 138 mg/dl 86 mg/dl 240 mg/dl White Blood Count 5.39 K/uL Red Blood Count 4.10 M/uL Hemoglobin 12.4 g/dL Hematocrit 37.3 % Mean Corpuscular Volume 91.0 fL Mean Corpuscular Hemoglobin 30.2 pg Mean Corpuscular Hemoglobin Concent 33.2 g/dl Platelet Count 147 K/uL Mean Platelet Volume 10.2 fL Neutrophils (%) (Auto) 49.2 % Lymphocytes (%) (Auto) 36.9 % Monocytes (%) (Auto) 9.6 % Eosinophils (%) (Auto) 3.5 % Basophils (%) (Auto) 0.4 % Neutrophils # (Auto) 2.65 K/uL Lymphocytes # (Auto) 1.99 K/uL Monocytes # (Auto) 0.52 K/uL Eosinophils # (Auto) 0.19 K/uL Basophils # (Auto) 0.02 K/uL RDW Standard Deviation 42.7 fL RDW Coefficient of Variation 13.1 % Immature Granulocyte % (Auto) 0.4 % Immature Granulocyte # (Auto) 0.02 K/uL Prothrombin Time 45.3 SECONDS Prothromb Time International Ratio 4.4 Activated Partial Thromboplast Time 97.0 SECONDS Partial Thromboplastin Ratio 3.7 Sodium Level 141 mmol/L Potassium Level 3.8 mmol/L Chloride Level 109 mmol/L Carbon Dioxide Level 29 mmol/L Anion Gap 4.0 mmol/L Blood Urea Nitrogen 16 mg/dl Creatinine 1.15 mg/dl Est Creatinine Clear Calc Drug Dose 67.1 ml/min Estimated GFR () 75.4 Estimated GFR (Non- 65.0 BUN/Creatinine Ratio 14.2 Random Glucose 76 mg/dl Calcium Level 8.1 mg/dl Phosphorus Level 3.5 mg/dl Magnesium Level 2.3 mg/dl Test 07/16/17 13:07 07/16/17 16:10 Activated Partial Thromboplast Time 33.9 SECONDS Partial Thromboplastin Ratio 1.3 Bedside Glucose 77 mg/dl Assessment & Plan SADDLE PULMONARY EMBOLUS: -extensive B/L PE with extension into right atrium and resultant acute cor pulmonale as evidenced by TTE -was in ICU, transferred to [facility] -presented with increasing shortness of breath 3 weeks; in the ED, CTA chest showing saddle pulmonary embolus with extensive bilateral pulmonary emboli -maintaining good O2 sat on RA and occasionally 2L of oxygen, remaining VSS -on heparin drip; coumadin started yesterday, discussed with the patient why choice of coumadin vs other oral anticoagulants -INR 4.4 today, will give hold coumadin today; stopped heparin drip as overlap complete -possible risk factors include relative immobility but otherwise no recent travel, current non-smoker, no family history of clotting disorders -hypercoagulable workup labs are pending -TTE report: * -- Conclusions -- * The right ventricle is severely dilated. * The right ventricular systolic function is severely reduced. * The right atrium is moderately dilated. 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 * There is moderate tricuspid regurgitation. * The estimated systolic pulmonary arterial pressure is 73 mmHg. * Flattened septum is consistent with RV pressure/volume overload. * Dilated inferior vena cava with reduced collapsability with sniff indicates an elevated right atrial pressure of 15 mmHg * Ejection Fraction = 50-55%. -B/L LE Dopplers: LLE DVT present -Appreciate Substation Mechanic management MARIA ALEJANDRA: -likely from hypovolemia from hyperglycemia in combination with ARB/HCTZ use -initially held losartan and hydrochlorothiazide, and received IV fluids, now off -resolved ELEVATED TROPONIN: -likely secondary to demand ischemia from acute PE/saddle pulmonary embolus -EKG shows T-wave inversions anteriorly -No reports of chest pain -troponins did not trend up significantly peaked at 0.097 and trended down -echocardiogram report as above HTN: -BPs elevated in ED -Likely due to anxiety/missing medications this morning -continue amlodipine for now -initially held losartan and HCTZ as above -restarted losartan, titrate up as needed DM TYPE II: -BSGs were recently elevated due to use of steroids -was on insulin drip initially, now on subcutaneous insulin -continue to hold oral agents -Hgb A1c 9.0% 12/2016, repeat this admission was 11% DYSLIPIDEMIA: -continue statin BPH: -continue finasteride and tamsulosin Current Inpatient Medications: Current Inpatient Medications Medications (Trade) Dose Ordered Sig/Adalberto Route Start Time Stop Time Status Last Admin Dose Admin Heparin Sodium/ Dextrose 500 ml @ 23 mls/hr [id number] IV 07/11/17 13:00 08/10/17 12:59 Future Hold 07/15/17 09:57 23 MLS/HR Acetaminophen (Tylenol Tab) 650 mg Q4H PRN PO 07/11/17 13:30 08/10/17 13:29 Amlodipine Besylate (Norvasc Tab) 10 mg DAILY PO 07/12/17 09:00 08/11/17 08:59 Future Hold 07/12/17 08:18 10 MG Atorvastatin Calcium (Lipitor Tab) 40 mg DAILY PO 07/12/17 09:00 08/11/17 08:59 07/16/17 08:12 40 MG Finasteride (Proscar Tab) 5 mg DAILY PO 07/12/17 09:00 5/24/18 08:59 07/16/17 08:13 5 MG Multivitamins (Multivitamin Tab) 1 tab DAILY PO 07/12/17 09:00 08/11/17 08:59 07/16/17 08:12 1 TAB Pantoprazole Sodium (Protonix Tab) 40 mg DAILY PO 07/12/17 09:00 08/11/17 08:59 07/16/17 08:12 40 MG Tamsulosin HCl (Flomax Cap) 0.4 mg DAILY PO 07/12/17 09:00 08/11/17 08:59 07/16/17 08:13 0.4 MG Insulin Aspart (novoLOG ASPART) SLIDING SCALE G... ACHS SC 07/11/17 21:00 08/10/17 20:59 07/16/17 12:42 11 UNITS Metoprolol Tartrate (Lopressor Tab) 50 mg BID PO 07/13/17 09:00 08/12/17 08:59 07/16/17 08:13 50 MG Warfarin Sodium (Coumadin Tab) 5 mg DAILY@16 PO 07/15/17 16:00 08/14/17 15:59 Future Hold 07/15/17 15:53 5 MG Insulin Glargine (Lantus Solostar Pen) 16 units BID SC 07/16/17 21:00 08/11/17 10:29 Losartan Potassium (coZAAR TAB) 25 mg QAM PO 07/16/17 09:00 08/15/17 08:59 07/16/17 09:38 25 MG
[2017-07-16 20:01] VITALS: BP 127/78; PULSE 69; TEMP 36.6; O2SAT 93
[2017-07-16 23:30] VITALS: BP 128/73; PULSE 66; TEMP 36.4; O2SAT 95
[2017-07-17 03:30] VITALS: BP 147/78; PULSE 66; TEMP 36.4; O2SAT 94
[2017-07-17 07:11] LABS: PTT PATIENT 36.9 SECONDS (21.0-31.0)
[2017-07-17 07:19] LABS: INR 4.6 (0.9-1.1)
[2017-07-17 07:51] VITALS: BP 154/69; PULSE 88; TEMP 37; O2SAT 99
[2017-07-17] MEDS: TAMSULOSIN HCL 0.4 MG CAP PO SCH (08:02)
[2017-07-17] MEDS: ATORVASTATIN 40 MG TAB PO SCH (08:02)
[2017-07-17] MEDS: LOSARTAN POTASSIUM 25 MG TAB PO SCH (08:02)
[2017-07-17] MEDS: MULTIVITAMIN TAB PO SCH (08:02)
[2017-07-17] MEDS: METOPROLOL TARTRATE 50 MG TAB PO SCH ×2 (08:02→21:22)
[2017-07-17] MEDS: PANTOprazole SOD 40 MG TAB PO SCH (08:03)
[2017-07-17] MEDS: FINASTERIDE 5 MG TAB PO SCH (08:03)
[2017-07-17] MEDS: INSULIN GLARGINE SOLOSTAR 100 UNITS/ML 3 ML PEN SC SCH ×2 (08:09→21:26)
[2017-07-17] MEDS: INSULIN ASPART 100 UNITS/ML 3 ML PEN SC SCH ×4 (08:09→21:00)
[2017-07-17 12:26] VITALS: BP 133/87; PULSE 67; TEMP 36.8; O2SAT 99
[2017-07-17 16:11] VITALS: BP 126/77; PULSE 68; TEMP 36.6; O2SAT 96
--- NOTE | 2017-07-17 18:00 | Progress Note ---
Medicine Progress Note Date & Time of Visit: Jul 17, 2017 at 18:00. Objective Last 8 Hrs Date Time Temp Pulse Resp B/P (MAP) Pulse Ox O2 Delivery O2 Flow Rate FiO2 07/17/17 16:11 36.6 68 18 126/77 (93) 96 Room Air 07/17/17 16:00 Room Air 07/17/17 12:26 36.8 67 18 133/87 (102) 99 07/17/17 12:00 Room Air Physical Exam: GENERAL: Patient is in no acute distress. No dyspnea while speaking full sentences HEENT: No acute trauma, normocephalic, mucous membranes moist, no nasal congestion, no scleral icterus. NECK: No stridor, trachea is midline. LUNGS: Clear to auscultation bilaterally, no wheeze, no rhonchi, breath sounds equal. HEART: Without murmurs gallops or rubs, regular rate and rhythm. ABDOMEN: Soft, nontender, bowel sounds positive EXTREMITIES: No cyanosis or edema, full range of motion of all the joints without pain or difficulty, no signs for acute trauma. NEUROLOGIC: Oriented x 3, no acute motor or sensory deficits, no focal weakness. SKIN: No rash, no jaundice, no diaphoresis. Laboratory Results: Last 24 Hours Test 07/16/17 21:17 07/17/17 06:25 07/17/17 06:41 07/17/17 11:18 Bedside Glucose 214 mg/dl 102 mg/dl 106 mg/dl Prothrombin Time 47.1 SECONDS Prothromb Time International Ratio 4.6 Activated Partial Thromboplast Time 36.9 SECONDS Partial Thromboplastin Ratio 1.4 Test 07/17/17 16:42 Bedside Glucose 168 mg/dl Assessment & Plan SADDLE PULMONARY EMBOLUS: -extensive B/L PE with extension into right atrium and resultant acute cor pulmonale as evidenced by TTE -was in ICU, transferred to [facility] -presented with increasing shortness of breath 3 weeks; in the ED, CTA chest showing saddle pulmonary embolus with extensive bilateral pulmonary emboli -maintaining good O2 sat on RA and occasionally 2L of oxygen, remaining VSS -on heparin drip; coumadin started yesterday, discussed with the patient why choice of coumadin vs other oral anticoagulants -INR 4.4 today, will give hold coumadin today; stopped heparin drip as overlap complete -possible risk factors include relative immobility but otherwise no recent travel, current non-smoker, no family history of clotting disorders -hypercoagulable workup labs are pending -TTE report: * -- Conclusions -- * The right ventricle is severely dilated. * The right ventricular systolic function is severely reduced. * The right atrium is moderately dilated. 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 * There is moderate tricuspid regurgitation. * The estimated systolic pulmonary arterial pressure is 73 mmHg. * Flattened septum is consistent with RV pressure/volume overload. * Dilated inferior vena cava with reduced collapsability with sniff indicates an elevated right atrial pressure of 15 mmHg * Ejection Fraction = 50-55%. -B/L LE Dopplers: LLE DVT present -Appreciate [employer] Executive management MARIA ALEJANDRA: -likely from hypovolemia from hyperglycemia in combination with ARB/HCTZ use -initially held losartan and hydrochlorothiazide, and received IV fluids, now off -resolved ELEVATED TROPONIN: -likely secondary to demand ischemia from acute PE/saddle pulmonary embolus -EKG shows T-wave inversions anteriorly -No reports of chest pain -troponins did not trend up significantly peaked at 0.097 and trended down -echocardiogram report as above HTN: -BPs elevated in ED -Likely due to anxiety/missing medications this morning -continue amlodipine for now -initially held losartan and HCTZ as above -restarted losartan, titrate up as needed DM TYPE II: -BSGs were recently elevated due to use of steroids -was on insulin drip initially, now on subcutaneous insulin -continue to hold oral agents -Hgb A1c 9.0% 12/2016, repeat this admission was 11% DYSLIPIDEMIA: -continue statin BPH: -continue finasteride and tamsulosin Current Inpatient Medications: Current Inpatient Medications Medications (Trade) Dose Ordered Sig/Adalberto Route Start Time Stop Time Status Last Admin Dose Admin Heparin Sodium/ Dextrose 500 ml @ 23 mls/hr [id number] IV 07/11/17 13:00 08/10/17 12:59 Future Hold 07/15/17 09:57 23 MLS/HR Acetaminophen (Tylenol Tab) 650 mg Q4H PRN PO 07/11/17 13:30 08/10/17 13:29 Amlodipine Besylate (Norvasc Tab) 10 mg DAILY PO 07/12/17 09:00 08/11/17 08:59 Future Hold 07/12/17 08:18 10 MG Atorvastatin Calcium (Lipitor Tab) 40 mg DAILY PO 07/12/17 09:00 08/11/17 08:59 07/17/17 08:02 40 MG Finasteride (Proscar Tab) 5 mg DAILY PO 07/12/17 09:00 08/11/17 08:59 07/17/17 08:03 5 MG Multivitamins (Multivitamin Tab) 1 tab DAILY PO 07/12/17 09:00 08/11/17 08:59 07/17/17 08:02 1 TAB Pantoprazole Sodium (Protonix Tab) 40 mg DAILY PO 07/12/17 09:00 08/11/17 08:59 07/17/17 08:03 40 MG Tamsulosin HCl (Flomax Cap) 0.4 mg DAILY PO 07/12/17 09:00 08/11/17 08:59 07/17/17 08:02 0.4 MG Insulin Aspart (novoLOG ASPART) SLIDING SCALE G... ACHS SC 07/11/17 21:00 08/10/17 20:59 07/17/17 17:29 7 UNITS Metoprolol Tartrate (Lopressor Tab) 50 mg BID PO 07/13/17 09:00 08/12/17 08:59 07/17/17 08:02 50 MG Warfarin Sodium (Coumadin Tab) 5 mg DAILY@16 PO 07/15/17 16:00 08/14/17 15:59 Future Hold 07/15/17 15:53 5 MG Insulin Glargine (Lantus Solostar Pen) 16 units BID SC 07/16/17 21:00 08/11/17 10:29 07/17/17 08:09 16 UNITS Losartan Potassium (coZAAR TAB) 25 mg QAM PO 07/16/17 09:00 08/15/17 08:59 07/17/17 08:02 25 MG
--- NOTE | 2017-07-17 20:17 | DIAGNOSTIC IMAGING REPORT ---
SACRUM AND COCCYX 3 VIEWS CLINICAL HISTORY: Pelvic pain. FINDINGS: 3 views of the sacrum and coccyx are correlated with pelvic CT dated 01/14/2017. The skeletal structures are osteopenic. There is no radiographic evidence of sacrococcygeal fracture. Minimal sclerotic degenerative change is noted in the sacroiliac joints. No erosive change is identified. The hip joints are normal as imaged. IMPRESSION: 1. No acute bony abnormality is identified. 2. Minimal sclerotic degenerative change is noted in the sacroiliac joints as above. Electronically signed by: Bradley Jensen M.D. 07/17/2017 8:15 PM Dictated Date/Time: 07/17/2017 8:14 PM
[2017-07-17 20:21] VITALS: BP 153/85; PULSE 71; TEMP 36.7; O2SAT 93
[2017-07-17 23:35] VITALS: BP 142/88; PULSE 67; TEMP 36.8; O2SAT 96
[2017-07-18 03:30] VITALS: BP 156/83; PULSE 59; TEMP 36.4; O2SAT 96
[2017-07-18 08:05] LABS: HEMATOCRIT 40.6 % (42-52); HEMOGLOBIN 13.4 g/dL (14.0-18.0); MEAN CELL VOLUME 91.6 fL (80-100); MEAN CORPUSCULAR HEMOGLOBIN 30.2 pg (25-34); PLATELET COUNT 182 K/uL (130-400); RED CELL DISTRIBUTION WIDTH CV 13.1 % (11.5-14.5); RED CELL DISTRIBUTION WIDTH SD 43.6 fL (36.4-46.3)
[2017-07-18] MEDS: PANTOprazole SOD 40 MG TAB PO SCH (08:29)
[2017-07-18] MEDS: ATORVASTATIN 40 MG TAB PO SCH (08:29)
[2017-07-18] MEDS: FINASTERIDE 5 MG TAB PO SCH (08:29)
[2017-07-18] MEDS: MULTIVITAMIN TAB PO SCH (08:29)
[2017-07-18] MEDS: LOSARTAN POTASSIUM 25 MG TAB PO SCH (08:29)
[2017-07-18] MEDS: TAMSULOSIN HCL 0.4 MG CAP PO SCH (08:29)
[2017-07-18] MEDS: METOPROLOL TARTRATE 50 MG TAB PO SCH (08:30)
[2017-07-18] MEDS: INSULIN ASPART 100 UNITS/ML 3 ML PEN SC SCH ×2 (08:32→12:45)
[2017-07-18] MEDS: INSULIN GLARGINE SOLOSTAR 100 UNITS/ML 3 ML PEN SC SCH (08:32)
[2017-07-18 08:34] LABS: INR 2.6 (0.9-1.1)
[2017-07-18 08:34] LABS: CALCIUM 8.9 mg/dl (8.5-10.1); CREATININE 1.14 mg/dl (0.60-1.40); POTASSIUM 4.2 mmol/L (3.5-5.1)
[2017-07-18 08:40] VITALS: BP 170/71; PULSE 70; TEMP 36.8; O2SAT 97
[2017-07-18 11:57] VITALS: BP 163/94; PULSE 60; TEMP 36.7; O2SAT 96
[2017-07-18] MEDS ORDERED: NVLGIPEN SC (12:48)
[2017-07-18] MEDS ORDERED: CZR50 PO (12:48)
[2017-07-18] MEDS ORDERED: CMD/25 PO (12:48)
[2017-07-18] MEDS ORDERED: INSDGIPEN SC (12:48)
--- NOTE | 2017-07-18 13:04 | Discharge Instructions ---
Discharge Instructions Date of Service Jul 18, 2017. Admission Reason for Admission: Saddle Pulmonary Embolus Discharge Discharge Diagnosis / Problem: Pulmonary embolism-saddle; MARIA ALEJANDRA; lactic acidosis Discharge Goals Goal(s): Diagnostic testing, Therapeutic intervention Activity Recommendations Activity Limitations: as noted below Lifting Limitations: gradually increase as tolerated Exercise/Sports Limitations: gradually increase as tolerated, until after follow-up appointment Driving or Machine Use: resume 1 day after discharge Please exercise extreme caution with your daily activities as you are taking coumadin; be cautious when using heavy equipment and sharp objects . Instructions / Follow-Up Instructions / Follow-Up Please see Dr. Wayne on July 25 at 2:45 PM for hospital discharge follow up Please have your labs drawn on July 20 and results will be sent to coag clinic and Dr. Wayne Please expect to receive a call from the Coagulation clinic for scheduling an appointment. Insulin instructions: 1.) Please check your blood glucose prior to taking insulin until your blood glucose remains stable. 2.) You will receive 2 types of insulin, Lantus (long acting) and Novolog ( short acting): A. Lantus is only taken at night and lasts for 24 hours, however, when you check your blood glucose at bedtime, if your glucose level is below 120, only take 20 units of lantus insulin. If glucose level is above 120, then take 30 units of lantus. If glucose level is above 200 then take 32 units of lantus that night. B. Novolog is taken with meals, if you skip a particular meal, you skip the dose of novolog. If you check your glucose before a meal and it is 80 or less, do not take any novolog insulin at that time. 3.) Be aware of symptoms of hypoglycemia (low blood glucose): shakiness, lightheadedness, sweats, nausea, headache, dizziness, lethargy, drowsy, palpitations Current Hospital Diet Patient's current hospital diet: Diabetes Type 2 Diet Discharge Diet Recommended Diet: Diabetes Type 2 Diet Pending Studies Studies pending at discharge: yes List of pending studies: Hypercoagulable workup labs pending Laboratory Results Hemoglobin A1c Test 07/12/17 05:11 Range/Units Estimated Average Glucose 269 mg/dl Hemoglobin A1c 11.0 H 4.5-5.6 % Medical Emergencies . Who to Call and When: Medical Emergencies: If at any time you feel your situation is an emergency, please call 911 immediately. . Non-Emergent Contact Non-Emergency issues call your: Primary Care Provider Call Non-Emergent contact if: you have a fever, your pain is worsening, you have any medication questions . . "Provider Documentation" section prepared by Yuliya Grady. .
[2017-07-18 14:47] VITALS: BP 163/94; PULSE 60; TEMP 36.7; O2SAT 96
[2017-07-18] MEDS ORDERED: Labs (15:55)
[2017-07-18] MEDS ORDERED: [UNRECOGNIZED DRUG - CODE] (15:55)
[2017-07-18] MEDS ORDERED: WARFARIN SOD 2.5 MG TAB PO SCH (16:00)
[2017-07-18] MEDS ORDERED: INSUMIS14 (16:06)
[2017-07-18] MEDS ORDERED: LANC-333 TOP (16:06)
[2017-07-18] MEDS ORDERED: test strips (16:06)
== END 2017-07-18 17:09 | disposition home or self-care (01) | DRG 175 ==
LOC: C.EDB 09:57 → C.MSICU 13:43 → ENRESERV 14:00 → CANRESERV 14:00 → ENRESERV 14:02 → C.2T 07-13 15:54
PROVIDERS: ADMIT Hospitalist; ATTEND Internal Medicine
DX: I26.02 Saddle embolus of pulmonary artery with acute cor pulmonale (principal); N17.9 Acute kidney failure, unspecified; E86.1 Hypovolemia; R73.9 Hyperglycemia, unspecified; T50.2X5A Adverse effect of carbonic-anhydrase inhibitors, benzothiadiazides and other diuretics, initial encounter; I10 Essential (primary) hypertension; E11.9 Type 2 diabetes mellitus without complications; E78.5 Hyperlipidemia, unspecified; N40.0 Benign prostatic hyperplasia without lower urinary tract symptoms; Z83.3 Family history of diabetes mellitus; Z82.49 Family history of ischemic heart disease and other diseases of the circulatory system; Z79.82 Long term (current) use of aspirin; Z87.891 Personal history of nicotine dependence

== ENCOUNTER 2017-08-06 16:01 | Emergency (ER) | payer OTHER ==
[~2017-08-06] VITALS: Ht 170.2 cm; Wt 86.2 kg
[~2017-08-06 16:01] MED LIST changes: +ASPI-320 PO; -BACL1TAB PO; -CIPR-255 PO; +CMD/25 PO; +CZR50 PO; +FINA5TAB PO; -GLIM4TAB2 PO; -HYZ/10015 PO; -IBUP-1451 PO; +INSDGIPEN SC; +INSUMIS14; +LANC-333 TOP; +Labs; -MELO-84 PO; -MELO7.5T5 PO; -METF1000 PO; -METH4PAK PO; +NVLGIPEN SC; -OXYC-57 PO; -OXYC1TAB3 PO; +TAMS0.4C38 PO; +[UNRECOGNIZED DRUG - CODE]; +test strips
[2017-08-06 16:04] VITALS: TEMP 36.6; Ht 170.2 cm; Wt 86.2 kg
[2017-08-06] MEDS ORDERED: ONDANSETRON INJ 2 MG/ML 2 ML VIAL IV STA (16:18)
[2017-08-06 16:30] VITALS: O2SAT 95
[2017-08-06] MEDS ORDERED: MoRPHine SULFATE 10 MG/ML CARP/VIAL IV PRN (16:30)
[2017-08-06] MEDS ORDERED: OPTIRAY 320 IV PRN (16:30)
[2017-08-06] MEDS ORDERED: CMD25 PO ×2 (16:34→16:36)
[2017-08-06 16:47] LABS: BASO % 0.3 %; BASO ABS # 0.03 K/uL (0-0.2); EOS % 1.4 %; EOS ABS # 0.14 K/uL (0-0.5); HEMATOCRIT 39.7 % (42-52); HEMOGLOBIN 13.4 g/dL (14.0-18.0); IG# 0.06 K/uL (0.00-0.02); LYMPH % 21.8 %; LYMPH ABS # 2.14 K/uL (1.2-3.4); MEAN CORPUSCULAR HGB CONC 33.8 g/dl (32-36); MEAN PLATELET VOLUME 9.7 fL (7.4-10.4); MONO ABS # 0.78 K/uL (0.11-0.59); NEUT % 67.9 %; NEUT ABS # 6.65 K/uL (1.4-6.5); PLATELET COUNT 268 K/uL (130-400); RED CELL DISTRIBUTION WIDTH CV 12.8 % (11.5-14.5); RED CELL DISTRIBUTION WIDTH SD 41.5 fL (36.4-46.3)
--- NOTE | 2017-08-06 16:53 | EMERGENCY ROOM VISIT NOTE ---
History Report prepared by Deana: Paola Martniez Under the Supervision of: Dr. Bradley Chao M.D. First contact with patient: 16:11 Chief Complaint: SHORTNESS OF BREATH Stated Complaint: CHEST PAIN;HX OF BLOOD CLOTS History of Present Illness The patient is a 66 year old male who presents to the Emergency Room with complaints of worsening right sided chest pain starting 8 hours ago. The patient notes that he had a blood clot that came from his left leg and ended up with a blood clot in each lung. The patient states that the pain radiates down his right arm and back. He reports that the pain is worse with movement of his right arm, coughing, and deep breathing. He currently rates his pain as a 10/10 in severity. The patient complains of weakness in his right arm. He states that he feels like he has no strength and believes it may be from pain. The patient denies headaches, numbness, tingling, and pain with any previous clots. The patient notes that he has been taking his Coumadin, regular medicine, and his Insulin shots. He notes that his sugar has been good. He notes his last INR check was last week at 2.7. Source of History: patient Onset: 8 hours ago Position: chest (right) Symptom Intensity: 10/10 Timing: worsening Modifying Factors (Worsening): breathing, movement, other (cough) Associated Symptoms: + back pain, + weakness, No headache, No numbness Note: The patient complains of the pain radiating down his arm. The patient denies any tingling. Review of Systems See HPI for pertinent positives & negatives. A total of 10 systems reviewed and were otherwise negative. Past Medical & Surgical Medical Problems: (1) Acute pulmonary embolism (2) Barretts esophagus (3) BPH (benign prostatic hyperplasia) (4) DM type 2 (diabetes mellitus, type 2) (5) Dyslipidemia (6) Elevated AST (SGOT) (7) Elevated beta-hydroxybutyrate (8) Hyperglycemia due to type 2 diabetes mellitus (9) Hypertension (10) Left femoral vein DVT Surgical Problems: (1) H/O shoulder surgery (2) History of appendectomy (3) History of tonsillectomy and adenoidectomy Family History Diabetes mellitus FATHER FH: brain cancer SISTER Stroke FATHER Social History Smoking Status: Former Smoker Alcohol Use: occasionally Marital Status: Housing Status: lives with family Current/Historical Medications Scheduled Amlodipine (Norvasc), 10 MG PO DAILY Aspirin (Aspirin EC Low Dose), 81 MG PO DAILY Atorvastatin (Lipitor), 40 MG PO DAILY Cinnamon (Cinnamon), 1,000 MG PO DAILY Finasteride (Proscar), 5 MG PO DAILY Insulin Aspart (Novolog Flexpen), 5 UNITS SQ TIDM Insulin Glargine (Lantus Solostar), 28 UNITS SQ QPM Losartan Potassium (Losartan Potassium), 100 MG PO DAILY Multiple Vitamin (Multivitamin), 1 TAB PO DAILY Pantoprazole (Protonix), 40 MG PO DAILY Tamsulosin Hcl (Flomax), 0.4 MG PO DAILY Warfarin Sod (Coumadin), 2.5 MG PO 5XWK Warfarin Sod (Coumadin), 5 MG PO 2XWK Scheduled PRN Baclofen (Lioresal), 10 MG PO TID PRN for Muscle Spasms Oxycodone Ir (Roxicodone Ir), 1-2 TAB PO Q4H PRN for Pain Allergies Coded Allergies: No Known Allergies (Unverified , 07/11/17) Physical Exam Vital Signs Date Time Temp Pulse Resp B/P (MAP) Pulse Ox O2 Delivery O2 Flow Rate FiO2 08/06/17 19:38 74 16 160/91 95 08/06/17 19:05 76 16 157/94 94 Room Air 08/06/17 18:00 78 18 158/89 96 08/06/17 16:49 77 08/06/17 16:30 95 Room Air 08/06/17 16:04 36.6 87 22 138/77 93 Room Air Physical Exam GENERAL: Patient is in no acute distress. HEENT: No acute trauma, normocephalic atraumatic, mucous membranes moist, no nasal congestion, no scleral icterus. NECK: No stridor, no adenopathy, no meningismus, trachea is midline. LUNGS: Clear to auscultation bilaterally, no wheeze, no rhonchi, breath sounds equal. HEART: Subtle systolic murmur. Regular rate and rhythm. CHEST: Tenderness to the right chest wall and the pain worsens with deep breathing and movement. ABDOMEN: Soft, nontender, bowel sounds positive, no hernias, no peritonitis. EXTREMITIES: Pedal edema--left leg more so than right. Pain with movement of the right shoulder. Strong right radial pulse. No right arm edema. NEUROLOGIC: Oriented x 3, no acute motor or sensory deficits, no focal weakness. No cerebellar dysfunction or pronator drift. No speech slur. SKIN: No rash, no jaundice, no diaphoresis. Medical Decision & Procedures ER Provider Diagnostic Interpretation: Radiology results as stated below per my review and radiologist interpretation: CHEST ONE VIEW PORTABLE CLINICAL HISTORY: Atypical chest pain COMPARISON STUDY: 07/14/2017 FINDINGS: The heart is at the upper limits of normal in size. There is no failure. There is no focal pulmonary consolidation. There are no pleural effusions.[ IMPRESSION: No active disease in the chest. Electronically signed by: Omid Schneider M.D. 08/06/2017 4:49 PM Dictated Date/Time: 08/06/2017 4:48 PM ULTRASOUND R VENOUS DOPPLER UPR EXT UNIL CLINICAL HISTORY: Right upper extremity pain and swelling. COMPARISON STUDY: No previous studies for comparison. FINDINGS: No intraluminal thrombus was visualized. The internal jugular, subclavian, axillary, cephalic, brachial, basilic, radial, and ulnar veins were patent. IMPRESSION: No evidence of right upper extremity DVT. Electronically signed by: Omid Schneider M.D. 08/06/2017 6:06 PM Dictated Date/Time: 08/06/2017 6:[address] HEAD WITHOUT CONTRAST (CT) CLINICAL HISTORY: Right arm weakness. Possible stroke. Patient on Coumadin. COMPARISON STUDY: No previous studies for comparison. TECHNIQUE: Axial CT of the brain is performed from the vertex to the skull base. IV contrast was not administered for this examination. A dose lowering technique was utilized adhering to the principles of ALARA. CT DOSE: 537.48 mGy.cm FINDINGS: No intra or extra-axial mass lesions are visualized. There is no CT evidence of acute cortical infarction. There is no evidence of midline shift. There is no acute hemorrhage. No calvarial fractures are visualized. There are patchy white matter hypodensities likely on a small vessel basis. There is no evidence of pathologic ventricular dilatation. There is no evidence of acute sinusitis IMPRESSION: No acute intracranial findings Electronically signed by: Omid Schneider M.D. 08/06/2017 6:53 PM Dictated Date/Time: 08/06/2017 6:[address] ANGIOGRAM OF THE CHEST CLINICAL HISTORY: Atypical chest pain. Possible pulmonary embolism. HISTORY OF PRIOR PULMONARY EMBOLISM COMPARISON STUDY: 07/11/2017 TECHNIQUE: Following the IV administration of 115 mL of Optiray-320, CT angiogram of the thorax was performed from the thoracic inlet to the lung bases utilizing the pulmonary embolus protocol. Images are reviewed in the axial, sagittal, and coronal planes. IV contrast was administered without complication. MIP imaging was performed. A dose lowering technique was utilized adhering to the principles of ALARA. CT DOSE: 614.50 mGy.cm FINDINGS: There are multiple gallstones. No pathologically enlarged axillary mediastinal or hilar lymph nodes were visualized. There was no evidence of thoracic aortic dilatation. There is been near complete interval resolution of the previously described multiple pulmonary emboli. Only a few residual tiny filling defects are present. No definite acute emboli are visualized. There is left upper lobe partial anomalous pulmonary venous return. No pleural effusions are visualized. There is respiratory motion artifact. There are dependent atelectatic changes. IMPRESSION: 1. Near complete resolution of the previously described extensive bilateral pulmonary emboli. Small residual pulmonary artery filling defects are likely chronic 2. 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 Cholelithiasis 4. No evidence of acute parenchymal consolidation Electronically signed by: Omid Schneider M.D. 08/06/2017 6:59 PM Dictated Date/Time: 08/06/2017 6:53 PM Laboratory Results 08/06/17 16:34 Red Blood Count 4.46, Mean Corpuscular Volume 89.0, Mean Corpuscular Hemoglobin 30.0, Mean Corpuscular Hemoglobin Concent 33.8, Mean Platelet Volume 9.7, Neutrophils (%) (Auto) 67.9, Lymphocytes (%) (Auto) 21.8, Monocytes (%) (Auto) 8.0, Eosinophils (%) (Auto) 1.4, Basophils (%) (Auto) 0.3, Neutrophils # (Auto) 6.65, Lymphocytes # (Auto) 2.14, Monocytes # (Auto) 0.78, Eosinophils # (Auto) 0.14, Basophils # (Auto) 0.03 08/06/17 16:34 Test 08/06/17 16:34 White Blood Count 9.80 K/uL (4.8-10.8) Red Blood Count 4.46 M/uL (4.7-6.1) Hemoglobin 13.4 g/dL (14.0-18.0) Hematocrit 39.7 % (42-52) Mean Corpuscular Volume 89.0 fL (80-100) Mean Corpuscular Hemoglobin 30.0 pg (25-34) Mean Corpuscular Hemoglobin Concent 33.8 g/dl (32-36) Platelet Count 268 K/uL (130-400) Mean Platelet Volume 9.7 fL (7.4-10.4) Neutrophils (%) (Auto) 67.9 % Lymphocytes (%) (Auto) 21.8 % Monocytes (%) (Auto) 8.0 % Eosinophils (%) (Auto) 1.4 % Basophils (%) (Auto) 0.3 % Neutrophils # (Auto) 6.65 K/uL (1.4-6.5) Lymphocytes # (Auto) 2.14 K/uL (1.2-3.4) Monocytes # (Auto) 0.78 K/uL (0.11-0.59) Eosinophils # (Auto) 0.14 K/uL (0-0.5) Basophils # (Auto) 0.03 K/uL (0-0.2) RDW Standard Deviation 41.5 fL (36.4-46.3) RDW Coefficient of Variation 12.8 % (11.5-14.5) Immature Granulocyte % (Auto) 0.6 % Immature Granulocyte # (Auto) 0.06 K/uL (0.00-0.02) Prothrombin Time 23.9 SECONDS (9.0-12.0) Prothromb Time International Ratio 2.3 (0.9-1.1) Activated Partial Thromboplast Time 36.2 SECONDS (21.0-31.0) Partial Thromboplastin Ratio 1.4 Anion Gap 6.0 mmol/L (3-11) Est Creatinine Clear Calc Drug Dose 52.6 ml/min Estimated GFR () 58.9 Estimated GFR (Non- 50.8 BUN/Creatinine Ratio 16.3 (10-20) Calcium Level 8.0 mg/dl (8.5-10.1) Total Bilirubin 0.6 mg/dl (0.2-1) Aspartate Amino Transf (AST/SGOT) 20 U/L (15-37) Alanine Aminotransferase (ALT/SGPT) 25 U/L (12-78) Alkaline Phosphatase 99 U/L (45-117) Troponin I < 0.015 ng/ml (0-0.045) Total Protein 6.9 gm/dl (6.4-8.2) Albumin 3.1 gm/dl (3.4-5.0) Globulin 3.8 gm/dl (2.5-4.0) Albumin/Globulin Ratio 0.8 (0.9-2) Lipase 148 U/L (73-393) Laboratory results reviewed by me. Medications Administered Medications (Trade) Dose Ordered Sig/Adalberto Route Start Time Stop Time Status Last Admin Dose Admin Morphine Sulfate (MoRPHine SULFATE INJ) 4 mg Q15M PRN IV 08/06/17 16:30 08/20/17 16:29 08/06/17 18:25 4 MG Sodium Chloride 500 ml @ 999 mls/hr Q31M STAT IV 08/06/17 17:30 08/06/17 18:00 DC 08/06/17 18:25 999 MLS/HR Oxycodone HCl (Roxicodone Immediate Rel 5MG Home Pack) 1 homepack UD ONCE PO 08/06/17 19:45 08/06/17 19:46 DC 08/06/17 19:52 1 HOMEPACK ECG Per My Interpretation Indication: chest pain Rate (beats per minute): 82 Rhythm: normal sinus Findings: T-wave inversion (Anterior), other (no ST elevation, no PVCs) Comparison ECG Date: July 11, 2017 Change: Inverted T waves seem improved compared to previous. ED Course 161: The patient was evaluated in room C3. A complete history and physical exam was performed. 1618: Ordered Zofran Inj 4 mg IV. 163: Ordered Morphine Sulfate 4 mg PRN IV pain. 1729: Ordered NSS 500 ml @ 999 mls/hr IV. 3: Reevaluated the patient and he is feeling better. We had a long talk about his results. Discussed results and discharge instructions: He verbalized understanding and agreement. The patient is ready for discharge. 1944: Ordered Oxycodone HCl 1 homepack PO. Medical Decision Differential diagnoses include recurrent PE, pleurisy, pneumonia, pneumothorax, pulmonary infarct, new right upper extremity DVT, intracranial bleeding, stroke , musculoskeletal pain, [place]. There is no leukocytosis or concerning anemia. No significant electrolyte abnormality, kidney failure, pancreatitis or hepatitis. INR is elevated and consistent with his Coumadin use. Chest film does not show pneumonia, mediastinal widening or pneumothorax. Right upper extremity ultrasound does not show evidence for DVT. Brain CT shows no acute bleed or mass-effect. EKG shows a normal sinus rhythm with some T-wave inversion in the anterior leads, this EKG is improved compared to previous. Cardiac enzyme testing 1 is not consistent with acute cardiac injury. CT of the chest demonstrates marked improvement of the previous pulmonary embolus. No pneumonia. Patient received IV morphine for pain, he received IV Zofran IV saline. He does seem more comfortable. The patient is likely having pleurisy from his previous pulmonary embolus. The right arm weakness is secondary to pain, I do not find evidence for stroke. The patient was reassured. He will be discharged with oxycodone. Some heat to the chest wall was suggested, Tylenol was also suggested. He will follow with his doctor's office this week and return here for any worsening symptoms. [place] Drug Monitoring Program Search Results: patient reviewed within database Drug Monitoring Findings: Last Oxycodone Prescription was on the 01 of July. Medication Reconcilliation Current Medication List: was personally reviewed by me Blood Pressure Screening Patient's blood pressure: Elevated blood pressure Blood pressure disposition: Referred to PCP Impression Primary Impression: Right-sided chest pain Additional Impression: History of pulmonary embolism Scribe Attestation The scribe's documentation has been prepared under my direction and personally reviewed by me in its entirety. I confirm that the note above accurately reflects all work, treatment, procedures, and medical decision making performed by me. Departure Information Dispostion Home / Self-Care Prescriptions Oxycodone Ir (Roxicodone Ir) 5 Mg Tab 1-2 TAB PO Q4H Y for Pain, #10 TAB Prov: Bradley Chao M.D. 08/06/17 Referrals Apolinar Wayne D.O. (PCP) Forms HOME CARE DOCUMENTATION FORM, IMPORTANT VISIT INFORMATION Patient Instructions My [facility] Additional Instructions tylenol for pain heat to the area may help oxy ir 1-2 tab every 4 hours for pain--use a stool softner when taking these pills see your fam md this week for a recheck return if feeling worse, have fever, or if feel more short of breath clot is markedly improved compared to before Problem Qualifiers
[2017-08-06] MEDS ORDERED: INSDGIPEN SQ (17:00)
[2017-08-06 17:04] LABS: INR 2.3 (0.9-1.1); PTT PATIENT 36.2 SECONDS (21.0-31.0)
[2017-08-06] MEDS ORDERED: CZR50 PO (17:04)
[2017-08-06] MEDS ORDERED: NVLGIPEN SQ (17:08)
[2017-08-06 17:13] LABS: ALBUMIN 3.1 gm/dl (3.4-5.0); ALKALINE PHOSPHATASE 99 U/L (45-117); ALT/SGPT 25 U/L (12-78); AST/SGOT 20 U/L (15-37); BLOOD UREA NITROGEN 23 mg/dl (7-18); CARBON DIOXIDE 27 mmol/L (21-32); CREATININE 1.41 mg/dl (0.60-1.40); GLUCOSE 176 mg/dl (70-99); LIPASE 148 U/L (73-393); POTASSIUM 3.8 mmol/L (3.5-5.1); SODIUM 139 mmol/L (136-145); TOTAL PROTEIN 6.9 gm/dl (6.4-8.2)
[2017-08-06] MEDS ORDERED: SODIUM CHLORIDE 0.9% 500ML 500 ML IV STA (17:30)
--- NOTE | 2017-08-06 18:07 | DIAGNOSTIC IMAGING REPORT ---
ULTRASOUND R VENOUS DOPPLER UPR EXT UNIL CLINICAL HISTORY: Right upper extremity pain and swelling. COMPARISON STUDY: No previous studies for comparison. FINDINGS: No intraluminal thrombus was visualized. The internal jugular, subclavian, axillary, cephalic, brachial, basilic, radial, and ulnar veins were patent. IMPRESSION: No evidence of right upper extremity DVT. Electronically signed by: Omid Schneider M.D. 08/06/2017 6:06 PM Dictated Date/Time: 08/06/2017 6:05 PM
[2017-08-06] MEDS ORDERED: MoRPHine SULFATE 4 MG/ML 1 ML CARP\\VIAL ONE (18:23)
--- NOTE | 2017-08-06 18:54 | DIAGNOSTIC IMAGING REPORT ---
CT HEAD WITHOUT CONTRAST (CT) CLINICAL HISTORY: Right arm weakness. Possible stroke. Patient on Coumadin. COMPARISON STUDY: No previous studies for comparison. TECHNIQUE: Axial CT of the brain is performed from the vertex to the skull base. IV contrast was not administered for this examination. A dose lowering technique was utilized adhering to the principles of ALARA. CT DOSE: 537.48 mGy.cm FINDINGS: No intra or extra-axial mass lesions are visualized. There is no CT evidence of acute cortical infarction. There is no evidence of midline shift. There is no acute hemorrhage. No calvarial fractures are visualized. There are patchy white matter hypodensities likely on a small vessel basis. There is no evidence of pathologic ventricular dilatation. There is no evidence of acute sinusitis IMPRESSION: No acute intracranial findings Electronically signed by: Omid Schneider M.D. 08/06/2017 6:53 PM Dictated Date/Time: 08/06/2017 6:52 PM
--- NOTE | 2017-08-06 19:00 | DIAGNOSTIC IMAGING REPORT ---
CT ANGIOGRAM OF THE CHEST CLINICAL HISTORY: Atypical chest pain. Possible pulmonary embolism. HISTORY OF PRIOR PULMONARY EMBOLISM COMPARISON STUDY: 07/11/2017 TECHNIQUE: Following the IV administration of 115 mL of Optiray-320, CT angiogram of the thorax was performed from the thoracic inlet to the lung bases utilizing the pulmonary embolus protocol. Images are reviewed in the axial, sagittal, and coronal planes. IV contrast was administered without complication. MIP imaging was performed. A dose lowering technique was utilized adhering to the principles of ALARA. CT DOSE: 614.50 mGy.cm FINDINGS: There are multiple gallstones. No pathologically enlarged axillary mediastinal or hilar lymph nodes were visualized. There was no evidence of thoracic aortic dilatation. There is been near complete interval resolution of the previously described multiple pulmonary emboli. Only a few residual tiny filling defects are present. No definite acute emboli are visualized. There is left upper lobe partial anomalous pulmonary venous return. No pleural effusions are visualized. There is respiratory motion artifact. There are dependent atelectatic changes. IMPRESSION: 1. Near complete resolution of the previously described extensive bilateral pulmonary emboli. Small residual pulmonary artery filling defects are likely chronic 2. 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 Cholelithiasis 4. No evidence of acute parenchymal consolidation Electronically signed by: Omid Schneider M.D. 08/06/2017 6:59 PM Dictated Date/Time: 08/06/2017 6:53 PM
[2017-08-06 19:38] VITALS: BP 160/91; PULSE 74; O2SAT 95
[2017-08-06] MEDS ORDERED: OXYCODONE IR HOME PACK PO ONE (19:45)
[2017-08-06] MEDS ORDERED: OXYC1TAB3 PO (19:47)
== END 2017-08-06 19:55 | disposition home or self-care (01) ==
LOC: C.EDB 16:03 → C.EDC 19:55
DX: R07.9 Chest pain, unspecified (principal); Z86.711 Personal history of pulmonary embolism; E11.9 Type 2 diabetes mellitus without complications; E78.5 Hyperlipidemia, unspecified; I10 Essential (primary) hypertension; Z87.891 Personal history of nicotine dependence; Z79.82 Long term (current) use of aspirin; Z79.01 Long term (current) use of anticoagulants; Z79.4 Long term (current) use of insulin; Z79.899 Other long term (current) drug therapy

== ENCOUNTER 2018-06-18 01:34 | Observation (INO) ==
[2018-06-18 02:13] LABS: Basophils # (auto) 0.01 K/uL (0-0.2); Basophils % (auto) 0.1 %; Eosinophils # (auto) 0.21 K/uL (0-0.5); Hematocrit (blood only) 39.3 % (42-52); Hemoglobin 13.5 g/dL (14.0-18.0); Immature Granulocytes # (auto) 0.01 K/uL (0.00-0.02); Immature Granulocytes % (auto) 0.1 %; Lymphocytes # (auto) 2.38 K/uL (1.2-3.4); Lymphocytes % (auto) 34.3 %; Mean Corpuscular Hgb Conc 34.4 g/dL (32-36); Mean Corpuscular Volume 89.7 fL (80-100); Mean Platelet Volume 10.3 fL (7.4-10.4); Monocytes # (auto) 0.62 K/uL (0.11-0.59); Monocytes % (auto) 8.9 %; Neutrophils # (auto) 3.71 K/uL (1.4-6.5); Neutrophils % (auto) 53.6 %; Platelet Count 205 K/uL (130-400); RDW Standard Deviation 42.1 fL (36.4-46.3); Red Blood Count 4.38 M/uL (4.7-6.1); White Blood Count 6.94 K/uL (4.8-10.8)
[2018-06-18 02:46] LABS: Alanine Aminotransferase 27 U/L (12-78); Albumin Globulin Ratio 1.1 (0.9-2); Albumin Level 3.3 gm/dl (3.4-5.0); Alkaline Phosphatase 75 U/L (45-117); Aspartate Aminotransferase 29 U/L (15-37); BUN Creatinine Ratio 21.3 (10-20); Bilirubin,Total 0.3 mg/dl (0.2-1); Blood Urea Nitrogen 25 mg/dl (7-18); Calcium 8.4 mg/dl (8.5-10.1); Carbon Dioxide 28 mmol/L (21-32); Chloride 105 mmol/L (98-107); Creatinine Clr Calc Pharmacy 64.5 ml/min; Est GFR (African American) 74.1; Est GFR (Non-African American) 63.9; Globulin 3.1 gm/dl (2.5-4.0); Glucose 171 mg/dl (70-99); Potassium 3.5 mmol/L (3.5-5.1); Sodium 138 mmol/L (136-145); Total Protein 6.4 gm/dl (6.4-8.2); Troponin I < 0.015 ng/ml (0-0.045)
[2018-06-18] MEDS ORDERED: OPTIRAY 320 125ml IV PRN (03:24)
--- NOTE | 2018-06-18 06:39 | Ultrasound Report ---
ADDENDUM The partially occlusive thrombus about the left lower extremity has improved from 09/06/2017 and is li taurus chronic. No acute deep venous thrombi identified. Electronically signed by: Timbo Flores M.D. 06/18/2018 9:11 AM ORIGINAL REPORT US venous doppler LE LT HISTORY: 67 years-old Male left inner thigh pain, history dvt acute pain and swelling of the left lo wer leg COMPARISON: Duplex venous Doppler study 09/06/2017 TECHNIQUE: Multiple real-time sonographic images of the left lower extremity venous structures were o btained assessing grayscale appearance, color and spectral flow FINDINGS: Partially occlusive thrombus involves the proximal left popliteal vein and one of the 2 posterior tib ial veins. The remaining deep venous structures of the left lower leg. Unremarkable with normal flow, compressibility and phasicity. IMPRESSION: Partially occlusive thrombus about the left popliteal and posterior tibial veins, age-ind eterminate however likely acute. The above report was generated using voice recognition software. It may contain grammatical, syntax o r spelling errors. Electronically signed by: Timbo Flores M.D. 06/18/2018 6:38 AM
--- NOTE | 2018-06-18 07:27 | Emergency Department Note ---
Entered by Shabnam Iraheta acting as a scribe for ED Provider Note Name: Denis Lam Age: 67 M Arrives Via: EMS Informant: The patient, Patient's CC: Syncope HPI: A 67 year old male arrives for evaluation of episode of syncope starting less than 1 hour [employer]. The patient reports that he was awaken from his sleep by a sharp pain in his calf. He states that it felt like a Mikie horse. He notes that after this sharp pain he was diaphoretic and lost consciousness. He adds that he has been feeling weak for the past week. The patients reports that the patient lost consciousness for about 10 minutes. She states that when the patient woke up his speech was slurred and that she was worried he had a stroke. She notes that the patient had PEs 1 year ago and has been taking Xarelto since. She adds that the patient did not receive any medications [employer]. The patient denies chest pain, shortness of breath and headache. He denies consuming alcohol or drugs [employer]. ROS: See above HPI for pertinent positives & negatives. A total of 10 systems reviewed and were otherwise negative. Past Medical History: HTN, DM, Dyslipidemia, Barretts esophagus, BPH. Past Surgical History: Appendectomy, Adenoidectomy, Tonsillectomy, Shoulder surgery. Family History: N/A Social History: Feels safe at home. Never a smoker. Home Medications: Amlodipine 10 mg PO, Aspirin 81 mg Po, Atorvastatin 40 mg PO, Jardiance 25 mg PO, Finasteride 5 mg PO, Gabapentin 300 mg PO, Lantus Solostar U-100 Insulin 28 units SUBCUT, Losartan 100 mg PO, Metformin 1000 mg PO, Pantoprozole 40 mg PO, Tamsulosin 0.4 mg PO. Allergies Erythromycin base Physical: Vitals: BP: 132/81, Pulse: 75, Resp: 18, Temp: 97.9F, O2 Sat: 95, Delivery: Room Air Exam: GENERAL: Patient is tired appearing and in minimal distress. EYES: No scleral icterus, unremarkable pupils. ENT: Mucous membranes moist, no nasal congestion. NECK: No masses appreciated, no meningismus, trachea is midline. RESPIRATORY: No dyspnea. Clear to auscultation and equal bilaterally. No wheeze, no rhonchi. CARDIOVASCULAR: Regular rate and rhythm. No murmurs, rubs, gallops appreciated. GASTROINTESTINAL: Abdomen soft, non-tender, no peritonitis. Bowel sounds positive. No masses appreciated. BACK: No midline tenderness, no CVA tenderness EXTREMITIES: Normal motion all extremities, no cyanosis, no edema. NEUROLOGIC: Alert and oriented, no acute motor or sensory deficits, no focal weakness, cranial nerves grossly intact. SKIN: No rash, no jaundice, no diaphoresis. ED Course: 0218: Prior Medical Record, Triage/Nursing Notes, Medications, Allergies reviewed by Me. Past medical records reviewed. The patient was evaluated in room C2A, and a complete history and physical examination were performed. 0357: I reevaluated the patient at this time who was sleeping. He had no further complaints. I plan to get an US. 0532: I reevaluated the patient at this time who is agreeable to a redraw of labs. 0719: I reviewed the patient's case with Dr. Card - [facility] hospitalist. He will evaluate the patient for further management. Vital Signs: reviewed and remarkable for mild hypoxia Labs: Reviewed and remarkable for normal trop x 2 Interventions: [facility] Imaging: [facility] Radiologist interpretation reviewed by me: CT head negative, ct pe with chronic PE, US lower left ext with new clot burden EKG: NSR no ectopy no ischemia Consults: DR Britton who accepts to his service Blood pressure: Normal. No Referral necessary Disposition: Hospitalization Differentials: Etiologies such as vasovagal event, infection, anemia, hypoglycemia, hypovolemia, electrolyte abnormalities, dysrhythmias, cardiac ischemia, cardiac tamponade, valvular heart disease, structural heart disease, seizure, vascular stenosis/dissection, pulmonary embolism, intracerebral event, toxicological process, neurologic event, as well as others were entertained. Medical Decision Making: Pleasant 67 yr old male on Xarelto following PE last year arrives following 10 min syncope preceeded by left this pain. Arrives without any current discomfort. CT head done given syncope on xarelto which is negative. CT PE without acute PE though chronic PE appreciated. US left lower leg with new left clot burden. Labs unremarkable. EKG OK. Trop x 2 negative. Unlikely this was cardiac syncope. PE syncope with PE not completely ruled out given CT issues. He does have clots left leg and with leg leg pain clearly concern for dislodged clot a concern. He is on Xarelto and theoretically should be anticoagulated, though obviously concern that worsening clot left leg. He has no current neuro deficits and looks well otherwise. No clear evidence stroke though may require further neuro imaging. Stable over several hours in ED. Hospitalist aware and will evaluate further. No neck pain nor headache nor indication for further trauma work-up at this time. Impression: Syncope and Collapse Acute DVT of left lower extremity Denis Moya MD The scribe's documentation has been prepared under my direction and personally reviewed by me in its entirety. I confirm that the note above accurately reflects all work, treatment, procedures, and medical decision making performed by me. Impression & Plan Syncope and collapse, Acute deep vein thrombosis (DVT) of left lower extremity Past Med/Surg History Medical History DM type 2 (diabetes mellitus, type 2) (Chronic) Dyslipidemia (Chronic) Barretts esophagus (Chronic) Hypertension (Chronic) BPH (benign prostatic hyperplasia) (Chronic) Surgical History H/O shoulder surgery (Chronic) History of appendectomy (Chronic) History of tonsillectomy and adenoidectomy (Chronic) Social History Feels Safe at Home: Yes Smoking Status: Never smoker Results & Data Vital Signs Vital Signs - 24 hr 06/18/18 01:41 06/18/18 01:42 06/18/18 01:44 Temperature Temperature Source Sepsis Recent Fever Within 48 Hours Sepsis Action Taken by Nursing Pulse Rate - Lying 72 Pulse Rate - Sitting 74 Pulse Rate - Standing 81 Pulse Rate 68 81 Pulse Rate [Bilateral] Pulse Rate from SpO2 Sensor 68 82 Pulse Rhythm Pulse Rhythm [Bilateral] Pulse Strength Pulse Strength [Bilateral] Respiratory Rate 17 23 Respiratory Effort / Characteristics Respiratory Depth Respiratory Pattern Blood Pressure - Lying 132/81 Blood Pressure - Sitting 138/82 Blood Pressure- Standing 138/77 Blood Pressure 138/82 138/77 Blood Pressure [Right Arm] Blood Pressure Mean 100 97 Blood Pressure Mean [Right Arm] Blood Pressure Position [Right Arm] Pulse Oximetry 94 95 Oxygen Delivery Method 06/18/18 01:46 06/18/18 01:47 06/18/18 02:00 Temperature 36.6 C Temperature Source Oral Sepsis Recent Fever Within 48 Hours No Sepsis Action Taken by Nursing No Action Required Pulse Rate - Lying Pulse Rate - Sitting Pulse Rate - Standing Pulse Rate 77 75 Pulse Rate [Bilateral] 74 Pulse Rate from SpO2 Sensor 77 Pulse Rhythm Regular Pulse Rhythm [Bilateral] Regular Pulse Strength Normal Pulse Strength [Bilateral] Normal Respiratory Rate 18 18 18 Respiratory Effort / Characteristics Non-Labored Spontaneous Non-Labored Spontaneous Respiratory Depth Normal Normal Respiratory Pattern Regular Regular Blood Pressure - Lying Blood Pressure - Sitting Blood Pressure- Standing Blood Pressure 132/81 Blood Pressure [Right Arm] 138/82 Blood Pressure Mean 98 Blood Pressure Mean [Right Arm] 100 Blood Pressure Position [Right Arm] Lying Pulse Oximetry 94 95 96 Oxygen Delivery Method Room Air Room Air 06/18/18 02:01 06/18/18 02:02 06/18/18 02:16 Temperature Temperature Source Sepsis Recent Fever Within 48 Hours Sepsis Action Taken by Nursing Pulse Rate - Lying Pulse Rate - Sitting Pulse Rate - Standing Pulse Rate 74 75 74 Pulse Rate [Bilateral] Pulse Rate from SpO2 Sensor Pulse Rhythm Pulse Rhythm [Bilateral] Pulse Strength Pulse Strength [Bilateral] Respiratory Rate 16 19 13 Respiratory Effort / Characteristics Respiratory Depth Respiratory Pattern Blood Pressure - Lying Blood Pressure - Sitting Blood Pressure- Standing Blood Pressure 138/82 Blood Pressure [Right Arm] Blood Pressure Mean 100 Blood Pressure Mean [Right Arm] Blood Pressure Position [Right Arm] Pulse Oximetry Oxygen Delivery Method 06/18/18 02:31 06/18/18 02:46 06/18/18 03:14 Temperature Temperature Source Sepsis Recent Fever Within 48 Hours Sepsis Action Taken by Nursing Pulse Rate - Lying Pulse Rate - Sitting Pulse Rate - Standing Pulse Rate 74 77 84 Pulse Rate [Bilateral] Pulse Rate from SpO2 Sensor 76 Pulse Rhythm Pulse Rhythm [Bilateral] Pulse Strength Pulse Strength [Bilateral] Respiratory Rate 16 18 23 Respiratory Effort / Characteristics Respiratory Depth Respiratory Pattern Blood Pressure - Lying Blood Pressure - Sitting Blood Pressure- Standing Blood Pressure Blood Pressure [Right Arm] Blood Pressure Mean Blood Pressure Mean [Right Arm] Blood Pressure Position [Right Arm] Pulse Oximetry 94 Oxygen Delivery Method 06/18/18 03:15 06/18/18 03:16 06/18/18 03:31 Temperature Temperature Source Sepsis Recent Fever Within 48 Hours Sepsis Action Taken by Nursing Pulse Rate - Lying Pulse Rate - Sitting Pulse Rate - Standing Pulse Rate 79 78 78 Pulse Rate [Bilateral] 83 Pulse Rate from SpO2 Sensor 82 79 78 Pulse Rhythm Pulse Rhythm [Bilateral] Regular Pulse Strength Pulse Strength [Bilateral] Normal Respiratory Rate 17 18 15 Respiratory Effort / Characteristics Non-Labored Spontaneous Respiratory Depth Normal Respiratory Pattern Regular Blood Pressure - Lying Blood Pressure - Sitting Blood Pressure- Standing Blood Pressure 161/79 H Blood Pressure [Right Arm] 161/79 H Blood Pressure Mean 106 Blood Pressure Mean [Right Arm] 106 Blood Pressure Position [Right Arm] Sitting Pulse Oximetry 96 96 92 Oxygen Delivery Method Room Air 06/18/18 03:46 06/18/18 04:00 06/18/18 04:01 Temperature Temperature Source Sepsis Recent Fever Within 48 Hours Sepsis Action Taken by Nursing Pulse Rate - Lying Pulse Rate - Sitting Pulse Rate - Standing Pulse Rate 76 80 78 Pulse Rate [Bilateral] Pulse Rate from SpO2 Sensor 76 78 79 Pulse Rhythm Pulse Rhythm [Bilateral] Pulse Strength Pulse Strength [Bilateral] Respiratory Rate 17 14 13 Respiratory Effort / Characteristics Respiratory Depth Respiratory Pattern Blood Pressure - Lying Blood Pressure - Sitting Blood Pressure- Standing Blood Pressure 123/71 Blood Pressure [Right Arm] Blood Pressure Mean 88 Blood Pressure Mean [Right Arm] Blood Pressure Position [Right Arm] Pulse Oximetry 93 92 92 Oxygen Delivery Method 06/18/18 04:15 06/18/18 04:50 06/18/18 05:00 Temperature Temperature Source Sepsis Recent Fever Within 48 Hours Sepsis Action Taken by Nursing Pulse Rate - Lying Pulse Rate - Sitting Pulse Rate - Standing Pulse Rate 77 78 76 Pulse Rate [Bilateral] Pulse Rate from SpO2 Sensor 77 76 Pulse Rhythm Pulse Rhythm [Bilateral] Pulse Strength Pulse Strength [Bilateral] Respiratory Rate 14 14 Respiratory Effort / Characteristics Respiratory Depth Respiratory Pattern Blood Pressure - Lying Blood Pressure - Sitting Blood Pressure- Standing Blood Pressure Blood Pressure [Right Arm] Blood Pressure Mean Blood Pressure Mean [Right Arm] Blood Pressure Position [Right Arm] Pulse Oximetry 92 93 Oxygen Delivery Method 06/18/18 05:01 06/18/18 05:08 06/18/18 05:15 Temperature Temperature Source Sepsis Recent Fever Within 48 Hours Sepsis Action Taken by Nursing Pulse Rate - Lying Pulse Rate - Sitting Pulse Rate - Standing Pulse Rate 74 75 Pulse Rate [Bilateral] 76 Pulse Rate from SpO2 Sensor 76 76 Pulse Rhythm Pulse Rhythm [Bilateral] Regular Pulse Strength Pulse Strength [Bilateral] Normal Respiratory Rate 17 18 21 Respiratory Effort / Characteristics Non-Labored Spontaneous Respiratory Depth Normal Respiratory Pattern Regular Blood Pressure - Lying Blood Pressure - Sitting Blood Pressure- Standing Blood Pressure 137/80 Blood Pressure [Right Arm] 137/80 Blood Pressure Mean 99 Blood Pressure Mean [Right Arm] 99 Blood Pressure Position [Right Arm] Sitting Pulse Oximetry 94 93 93 Oxygen Delivery Method Room Air 06/18/18 05:30 06/18/18 05:45 06/18/18 06:00 Temperature Temperature Source Sepsis Recent Fever Within 48 Hours Sepsis Action Taken by Nursing Pulse Rate - Lying Pulse Rate - Sitting Pulse Rate - Standing Pulse Rate 74 79 69 Pulse Rate [Bilateral] Pulse Rate from SpO2 Sensor 74 79 69 Pulse Rhythm Pulse Rhythm [Bilateral] Pulse Strength Pulse Strength [Bilateral] Respiratory Rate 20 14 14 Respiratory Effort / Characteristics Respiratory Depth Respiratory Pattern Blood Pressure - Lying Blood Pressure - Sitting Blood Pressure- Standing Blood Pressure 117/73 Blood Pressure [Right Arm] Blood Pressure Mean 87 Blood Pressure Mean [Right Arm] Blood Pressure Position [Right Arm] Pulse Oximetry 94 95 92 Oxygen Delivery Method 06/18/18 06:15 06/18/18 06:30 06/18/18 06:45 Temperature Temperature Source Sepsis Recent Fever Within 48 Hours Sepsis Action Taken by Nursing Pulse Rate - Lying Pulse Rate - Sitting Pulse Rate - Standing Pulse Rate 72 74 67 Pulse Rate [Bilateral] Pulse Rate from SpO2 Sensor 72 74 68 Pulse Rhythm Pulse Rhythm [Bilateral] Pulse Strength Pulse Strength [Bilateral] Respiratory Rate 19 12 16 Respiratory Effort / Characteristics Respiratory Depth Respiratory Pattern Blood Pressure - Lying Blood Pressure - Sitting Blood Pressure- Standing Blood Pressure Blood Pressure [Right Arm] Blood Pressure Mean Blood Pressure Mean [Right Arm] Blood Pressure Position [Right Arm] Pulse Oximetry 91 92 94 Oxygen Delivery Method 06/18/18 07:00 06/18/18 07:15 06/18/18 07:30 Temperature Temperature Source Sepsis Recent Fever Within 48 Hours Sepsis Action Taken by Nursing Pulse Rate - Lying Pulse Rate - Sitting Pulse Rate - Standing Pulse Rate 68 68 66 Pulse Rate [Bilateral] 68 Pulse Rate from SpO2 Sensor 69 69 66 Pulse Rhythm Pulse Rhythm [Bilateral] Regular Pulse Strength Pulse Strength [Bilateral] Normal Respiratory Rate 10 L 15 12 Respiratory Effort / Characteristics Non-Labored Spontaneous Respiratory Depth Normal Respiratory Pattern Regular Blood Pressure - Lying Blood Pressure - Sitting Blood Pressure- Standing Blood Pressure 141/80 H Blood Pressure [Right Arm] 141/80 H Blood Pressure Mean 100 Blood Pressure Mean [Right Arm] 100 Blood Pressure Position [Right Arm] Lying Pulse Oximetry 93 93 92 Oxygen Delivery Method Room Air Home Medications Current Medication List: was personally reviewed by me Laboratory Data Attestation: I reviewed the patient's lab results. Result diagrams: 06/18/18 02:04 06/18/18 02:04 Lab Results 06/18/18 06/18/18 06/18/18 Range/Units 02:04 02:04 02:04 WBC 6.94 (4.8-10.8) K/uL RBC 4.38 L (4.7-6.1) M/uL Hgb 13.5 L (14.0-18.0) g/dL Hct 39.3 L (42-52) % MCV 89.7 (80-100) fL MCH 30.8 (25-34) pg MCHC 34.4 (32-36) g/dL RDW Std Deviation 42.1 (36.4-46.3) fL RDW Coeff of Diandra 13.0 (11.5-14.5) % Plt Count 205 (130-400) K/uL MPV 10.3 (7.4-10.4) fL Immature Gran % (Auto) 0.1 % Neut % (Auto) 53.6 % Lymph % (Auto) 34.3 % Leake % (Auto) 8.9 % Eos % (Auto) 3.0 % Baso % (Auto) 0.1 % Immature Gran # (Auto) 0.01 (0.00-0.02) K/uL Neut # (Auto) 3.71 (1.4-6.5) K/uL Lymph # (Auto) 2.38 (1.2-3.4) K/uL Leake # (Auto) 0.62 H (0.11-0.59) K/uL Eos # (Auto) 0.21 (0-0.5) K/uL Baso # (Auto) 0.01 (0-0.2) K/uL PT Cancelled INR Cancelled APTT Cancelled PTT Ratio Cancelled Sodium 138 (136-145) mmol/L Potassium 3.5 (3.5-5.1) mmol/L Chloride 105 (98-107) mmol/L Carbon Dioxide 28 (21-32) mmol/L Anion Gap 5.0 (3-11) BUN 25 H (7-18) mg/dl Creatinine 1.16 (0.6-1.4) mg/dl Est Cr Clr Drug Dosing 64.5 ml/min Est GFR ( Amer) 74.1 Est GFR (Non-Af Amer) 63.9 BUN/Creatinine Ratio 21.3 H (10-20) Glucose 171 H (70-99) mg/dl Calcium 8.4 L (8.5-10.1) mg/dl Total Bilirubin 0.3 (0.2-1) mg/dl AST 29 (15-37) U/L ALT 27 (12-78) U/L Alkaline Phosphatase 75 (45-117) U/L Troponin I < 0.015 (0-0.045) ng/ml Total Protein 6.4 (6.4-8.2) gm/dl Albumin 3.3 L (3.4-5.0) gm/dl Globulin 3.1 (2.5-4.0) gm/dl Albumin/Globulin Ratio 1.1 (0.9-2) TSH 6.020 H (0.300-4.500) uIu/ml Specimen Hemolysis 06/18/18 Range/Units 05:44 WBC (4.8-10.8) K/uL RBC (4.7-6.1) M/uL Hgb (14.0-18.0) g/dL Hct (42-52) % MCV (80-100) fL MCH (25-34) pg MCHC (32-36) g/dL RDW Std Deviation (36.4-46.3) fL RDW Coeff of Diandra (11.5-14.5) % Plt Count (130-400) K/uL MPV (7.4-10.4) fL Immature Gran % (Auto) % Neut % (Auto) % Lymph % (Auto) % Leake % (Auto) % Eos % (Auto) % Baso % (Auto) % Immature Gran # (Auto) (0.00-0.02) K/uL Neut # (Auto) (1.4-6.5) K/uL Lymph # (Auto) (1.2-3.4) K/uL Leake # (Auto) (0.11-0.59) K/uL Eos # (Auto) (0-0.5) K/uL Baso # (Auto) (0-0.2) K/uL PT INR APTT PTT Ratio Sodium (136-145) mmol/L Potassium (3.5-5.1) mmol/L Chloride (98-107) mmol/L Carbon Dioxide (21-32) mmol/L Anion Gap (3-11) BUN (7-18) mg/dl Creatinine (0.6-1.4) mg/dl Est Cr Clr Drug Dosing ml/min Est GFR ( Amer) Est GFR (Non-Af Amer) BUN/Creatinine Ratio (10-20) Glucose (70-99) mg/dl Calcium (8.5-10.1) mg/dl Total Bilirubin (0.2-1) mg/dl AST (15-37) U/L ALT (12-78) U/L Alkaline Phosphatase (45-117) U/L Troponin I < 0.015 (0-0.045) ng/ml Total Protein (6.4-8.2) gm/dl Albumin (3.4-5.0) gm/dl Globulin (2.5-4.0) gm/dl Albumin/Globulin Ratio (0.9-2) TSH (0.300-4.500) uIu/ml Specimen Hemolysis Administered Medications Ioversol (Optiray 320 125ml) 118 ml IV ONCE PRN PRN Reason: Interaction Checking Stop: 06/22/18 03:23 Last Admin: 06/18/18 03:24 Dose: 1 ml Documented by: [id number] Imaging Data Attestation: I personally reviewed and interpreted this imaging study as follows: ECG Data Attestation: I personally reviewed and interpreted this ECG as follows: Blood Pressure Blood Pressure Findings: Normal blood pressure Blood Pressure Disposition: further management by hospitalist Discharge Plan Visit Data Chief Complaint: Syncope ED Provider: Denis Moya Discharge Problem: Syncope and collapse, Acute deep vein thrombosis (DVT) of left lower extremity Patient Disposition: Being Evaluated by Hospitalist Forms Stand Alone Forms: My [facility] Prescriptions Prescriptions: No Action amlodipine 10 mg Tablet 10 mg PO DAILY RF: 0 atorvastatin 40 mg Tablet 40 mg PO DAILY RF: 0 aspirin 81 mg Tablet,Delayed Release (Dr/Ec) 81 mg PO DAILY RF: 0 finasteride 5 mg Tablet 5 mg PO DAILY RF: 0 Jardiance 25 mg Tablet 25 mg PO DAILY RF: 0 pantoprazole 40 mg Tablet,Delayed Release (Dr/Ec) 40 mg PO DAILY RF: 0 losartan 100 mg Tablet 100 mg PO DAILY RF: 0 tamsulosin 0.4 mg Capsule 0.4 mg PO DAILY RF: 0 gabapentin 300 mg Tablet Extended Release 24 Hr 300 mg PO TID RF: 0 metformin 1,000 mg Tablet Extended Release 24hr 1,000 mg PO BID RF: 0 Lantus Solostar U-100 Insulin 100 unit/mL (3 mL) Insulin Pen 28 unit SUBCUT DAILY RF: 0 Referrals Referrals: Apolinar Wayne DO [Primary Care Provider] - Discharge Problem: Acute deep vein thrombosis (DVT) of left lower extremity Qualifiers: Affected thrombotic vein of extremity: popliteal Qualified Code(s): I82.432 - Acute embolism and thrombosis of left popliteal vein The scribe's documentation has been prepared under my direction and personally reviewed by me in its entirety. I confirm that the note above accurately reflects all work, treatment, procedures, and medical decision making performed by me.
--- NOTE | 2018-06-18 07:28 | XRay Report ---
XR chest 1V portable HISTORY: 67 years-old Male syncope acute syncope COMPARISON: Chest radiograph 09/06/2017 and CTA chest 06/18/2018 TECHNIQUE: Portable AP view of the chest FINDINGS: Cardiomediastinal and hilar silhouettes are unchanged. Calcification the thoracic aortic arch. No pne umothorax, pleural effusion, focal airspace consolidation or overt pulmonary edema. Mild right hemidi aphragmatic elevation. Degenerative changes of the shoulders and spine. IMPRESSION: No acute process. The above report was generated using voice recognition software. It may contain grammatical, syntax o r spelling errors. Electronically signed by: Timbo Flores M.D. 06/18/2018 7:27 AM
--- NOTE | 2018-06-18 07:40 | CT Scan Report ---
CT head/brain wo con CLINICAL HISTORY: 67 years-old Male with Syncope, on xarelto,. Acute syncope with head trauma TECHNIQUE: Multiple axial CT images of the head were obtained without contrast. A dose lowering tech nique was utilized adhering to the principles of ALARA. COMPARISON: CT head 08/06/2017. FINDINGS: No acute intracranial hemorrhage, midline shift, intracranial mass, hydrocephalus, territorial ischem ia or abnormal extra-axial collection. Minimal hypodensities about the white matter suggestive of chr onic microvascular ischemic changes. The calvarium is intact. The paranasal sinuses, mastoid air cells, and middle ear cavities are clear . IMPRESSION: No acute intracranial abnormality or calvarial fracture. The above report was generated using voice recognition software. It may contain grammatical, syntax o r spelling errors. Electronically signed by: Timbo Flores M.D. 06/18/2018 7:39 AM
--- NOTE | 2018-06-18 07:51 | History & Physical Report ---
Date of Service June 18, 2018 Assessment & Plan (1) Syncope and collapse: Syncope: Stroke Like Symptoms Likely Vasovagal due to pain CT head: No acute intracranial abnormality or calvarial fracture. Monitor in Telemetry for arrhythmia Check ECHO, Carotid Ultrasound, MRI Brain cardiac enzymes X 2: Negative ECG shows: NSR, 1st degree AV block Fall precautions Neuro Checks UA pending Neurology Consulted PT/OT DM II Last A1C:8.3 on 06/06/18 Hold PO meds Continue ISS, Lantus Monitor BGs H/O DVT/PE No acute change Continue Xarelto Dyslipidemia Continue Statin Hedrick's esophagus Continue PPI Hypertension Continue Losartan BPH Continue home meds Ascending thoracic aorta Anuerysm Incidental finding on CT Follow up as outpatient Elevated TSH: TSH:6.0 Plan to repeat TSH, Free T4 in AM DVT Px: On Xarelto Code Status Full Code Disposition: Expect to discharge home when stable History of Present Illness Chief Complaint: Syncope Primary Care Provider: Apolinar Wayne DO Patient is a 67-year-old male with history of DM II, DVT/PE on chronic anticoagulation, dyslipidemia, Hedrick's esophagus, hypertension, BPH, former smoker and other problems presents with history of syncopal episode. Patient states he had a bad leg cramp/pain in his calf which woke him up from sleep. Patient tried to walk to see if the pain will resolve but suddenly collapsed resulting in loss of consciousness. Patient was also noted to be diaphoretic at the time. As per the family patient lost consciousness for about 2 minutes and had slurred speech which lasted for about 30 seconds after the syncopal episode. He was also noted to have bladder incontinence. He states feeling weak, has generalized body ache in stiffness in his extremities after the episode. He reports having poor sleep since 2 months duration for which he had tried melatonin which did not help. Denies any previous episodes of syncope. Patient's family noted that he fell on his back resulting in hitting his head during the episode. Denies any history of chest pain, SOB, palpitations, dizziness, pedal edema, cough, wheezing, fever, chills, headache, weakness, numbness, change in vision, double/blurry vision, vertigo, facial deformity, bowel incontinence, nausea, vomiting, abdominal pain, diarrhea, dysuria. CT head showed no acute intracranial abnormality. Allergies Allergy/AdvReac Type Severity Reaction Status Date / Time erythromycin base Allergy Unknown Unknown Verified 06/18/18 02:37 Home Medications Home Medications Medication Instructions Recorded Confirmed Type amlodipine 10 mg PO DAILY 06/18/18 06/18/18 History aspirin 81 mg PO DAILY 06/18/18 06/18/18 History atorvastatin 40 mg PO DAILY 06/18/18 06/18/18 History empagliflozin [Jardiance] 25 mg PO DAILY 06/18/18 06/18/18 History finasteride 5 mg PO DAILY 06/18/18 06/18/18 History insulin glargine [Lantus Solostar 28 unit SUBCUT DAILY 06/18/18 06/18/18 History U-100 Insulin] losartan 100 mg PO DAILY 06/18/18 06/18/18 History metformin 1,000 mg PO BID 06/18/18 06/18/18 History pantoprazole 40 mg PO DAILY 06/18/18 06/18/18 History rivaroxaban [Xarelto] 20 mg PO HS 06/18/18 06/18/18 History tamsulosin 0.4 mg PO DAILY 06/18/18 06/18/18 History Past Med/Surg History Medical History DM type 2 (diabetes mellitus, type 2) (Chronic) Dyslipidemia (Chronic) Barretts esophagus (Chronic) Hypertension (Chronic) BPH (benign prostatic hyperplasia) (Chronic) Surgical History H/O shoulder surgery (Chronic) History of appendectomy (Chronic) History of tonsillectomy and adenoidectomy (Chronic) Social History Preferred Language: Bangladeshi Communication Ability: Effective Stone Rougher Required: No Beliefs That Will Affect Care: None Current Living Situation: Spouse Other Information That Helps Us Care for You: No Feels Safe at Home: Yes Safety Concerns: Feels Safe At This Time Smoking Status: Former smoker Hx Alcohol Use: Yes Hx Substance Use: No Review of Systems All systems reviewed & are unremarkable except as noted in HPI & below Physical Exam Vital Signs (Past 24 Hours): Last Vital Signs Temp 36.6 C 06/18/18 01:47 Pulse 66 06/18/18 07:30 Resp 12 06/18/18 07:30 BP 141/80 H 06/18/18 07:00 Pulse Ox 92 06/18/18 07:30 Physical Exam: Physical Exam: Vitals signs as noted above General Appearance:Moderately built and nourished, no apparent distress Head: normocephalic, Atraumatic Eyes: normal inspection, EOMI Neck: supple, Trachea midline Respiratory/Chest: Normal breath sounds, CTA Cardiovascular: S1, S2, No murmur Abdomen/GI:Soft, Non tender, Bowel sounds present Extremities/Musculoskelatal:normal inspection, no edema Neurologic/Psych:AAOX3, grossly no focal neurological deficits Skin: normal color, warm Results & Data Laboratory Results Short CBC 06/18/18 Range/Units 02:04 WBC 6.94 (4.8-10.8) K/uL Hgb 13.5 L (14.0-18.0) g/dL Hct 39.3 L (42-52) % Plt Count 205 (130-400) K/uL BMP 06/18/18 02:04 Sodium 138 Potassium 3.5 Chloride 105 Carbon Dioxide 28 BUN 25 H Creatinine 1.16 Glucose 171 H Calcium 8.4 L Cardiac Enzymes 06/18/18 06/18/18 Range/Units 02:04 05:44 Troponin I < 0.015 < 0.015 (0-0.045) ng/ml Liver Function 06/18/18 Range/Units 02:04 Total Bilirubin 0.3 (0.2-1) mg/dl AST 29 (15-37) U/L ALT 27 (12-78) U/L Alkaline Phosphatase 75 (45-117) U/L Albumin 3.3 L (3.4-5.0) gm/dl Diagnostic Findings CT head: No acute intracranial abnormality or calvarial fracture. Venous Doppler: The partially occlusive thrombus about the left lower extremity has improved from 09/06/2017 and is likely chronic. No acute deep venous thrombi identified. CTA: 1. No evidence of acute pulmonary emboli. Nonocclusive chronic segmental pulmonary emboli are again noted bilaterally which appear unchanged from 11/16/2017. 2. Mild fusiform dilation of the ascending thoracic aorta without dissection, 3.9 x 4.0 cm. 3. No focal airspace consolidation to suggest pneumonia. 4. Coronary arterial calcifications. CXR: No acute process. ECG Additional Comments: EKG: NSR, 1st degree AV block, QTC:475
[2018-06-18 07:58] LABS: INR 1.1 (0.9-1.1); Partial Thromboplastin Time 26.9 Seconds (21.0-31.0); Prothrombin Time 10.9 Seconds (9.0-12.0)
--- NOTE | 2018-06-18 08:33 | CT Scan Report ---
CT angio chest PE protocol CT DOSE: 1041.96 mGy.cm HISTORY: 67 years-old Male with PE. Acute shortness of breath with history of chronic pulmonary emb joe TECHNIQUE: Multiple CTA images of the chest were obtained after the intravenous administration of 119 ml Optiray 320. Coronal and sagittal MIPS were obtained from the axial data set and were submitted for review. All measurements were obtained according to NASCET criteria. A dose lowering technique w as utilized adhering to the principles of ALARA. COMPARISON: CTA chest 11/16/2017. FINDINGS: CTA: Mild multichamber cardiac enlargement without pericardial effusion. Coronary arterial calcifications are noted. Mild dilation of the ascending thoracic aorta, 4.0 x 3.9 cm. No dissection. Moderate mixed plaque formation of the aorta with patency of the imaged great vessels. Pulmonary arterial tree is o pacified to level the subsegmental branches. The inferior lung bases are excluded from the field-of-v iew. Linear chronic partially occlusive pulmonary emboli noted within segmental branches of the bilat eral upper and lower lobes which appear unchanged from comparison. No acute pulmonary emboli identifi ed. CT CHEST: No dominant thyroid nodule or new adenopathy. No pneumothorax or pleural effusion. Right apical pleur al parenchymal scarring, unchanged. No overt pulmonary edema. There are no suspicious pulmonary nodul es or masses identified. Central airways appear patent. Mild nonspecific wall thickening about the distal esophagus. Soft tissues are unremarkable. The image d bones appear to be intact. Degenerative changes of the shoulders and spine. IMPRESSION: 1. No evidence of acute pulmonary emboli. Nonocclusive chronic segmental pulmonary emboli are again n oted bilaterally which appear unchanged from 11/16/2017. 2. Mild fusiform dilation of the ascending thoracic aorta without dissection, 3.9 x 4.0 cm. 3. No focal airspace consolidation to suggest pneumonia. 4. Coronary arterial calcifications. The above report was generated using voice recognition software. It may contain grammatical, syntax o r spelling errors. Electronically signed by: Timbo Flores M.D. 06/18/2018 8:31 AM
[2018-06-18] MEDS ORDERED: POTASSIUM CHLORIDE 10 MEQ TABCR PO STA (13:57)
[2018-06-18] MEDS ORDERED: LORazepam 0.5 MG/1 ML VIAL IV PRN (13:57)
[2018-06-18] MEDS ORDERED: PHARMACIST DISCHARGE MED REC CONSULT PRN (13:57)
[2018-06-18] MEDS ORDERED: POLYETHYLENE (MIRALAX) 17 GM PACK PO PRN (13:57)
[2018-06-18] MEDS ORDERED: GLUCOSE 40% GEL 15 GM TUBE PO PRN (13:57)
[2018-06-18] MEDS ORDERED: ONDANSETRON INJ 2 MG/ML 2 ML VIAL IV PRN (13:57)
[2018-06-18] MEDS ORDERED: GLUCOSE 10 TABS/TUBE PO PRN (14:30)
[2018-06-18] MEDS ORDERED: GLUCAGON FOR INJ 1 MG VIAL IM PRN (14:30)
[2018-06-18] MEDS ORDERED: DEXTROSE 50% 50 ML SYRINGE IV PRN (14:30)
[2018-06-18] MEDS ORDERED: CARBOHYDRATES FOR HYPOGLYCEMIA PO PRN (14:30)
[2018-06-18] MEDS ORDERED: LORazepam 2 MG/4 ML VIAL ONE (14:34)
[2018-06-18] MEDS: FINASTERIDE 5 MG TAB PO SCH (16:41)
[2018-06-18] MEDS: AMLODIPINE BESYLATE 5 MG TAB PO SCH (16:41)
[2018-06-18] MEDS: LOSARTAN POTASSIUM 50 MG TAB PO SCH (16:42)
[2018-06-18] MEDS: ASPIRIN 81 MG ECTAB PO SCH (16:42)
[2018-06-18] MEDS: ATORVASTATIN 40 MG TAB PO SCH (16:43)
[2018-06-18] MEDS: PANTOprazole 40 MG TAB PO SCH (16:43)
[2018-06-18] MEDS: TAMSULOSIN HCL 0.4 MG CAP PO SCH (16:44)
[2018-06-18] MEDS ORDERED: GADOBUTROL 65ML VIAL IV PRN (16:47)
[2018-06-18] MEDS: INSULIN ASPART 100 UNITS/ML 3 ML PEN SC SCH ×3 (16:48→20:14)
--- NOTE | 2018-06-18 16:57 | Magnetic Resonance Report ---
MRI OF THE BRAIN WITHOUT AND WITH IV CONTRAST CLINICAL HISTORY: Stroke like symptoms. Syncope. Fall. COMPARISON STUDY: Head CT August 06, 2017 and June 18, 2018. TECHNIQUE: Utilizing a 1.5 Anum magnet and dedicated coil, multiplanar, multiecho imaging of the br ain was performed pre and postcontrast administration. IV administration of 8.5 mL of Gadavist contr ast was uneventful. FINDINGS: There are no foci of restricted diffusion. No acute intracranial hemorrhage, midline shift or mass effect is present. Brain volume is normal for age. Ventricular system is normal. The basilar cisterns are patent. There are no extra axial collections. Flow-voids for the major intracranial vess els are present. There is no intracranial mass or pathologic enhancement. Mild to moderate white henri er T2 hyperintense foci are noted. Calvarial signal is normal. Orbits are unremarkable. Sinuses are c lear. IMPRESSION: 1. No acute intracranial findings. 2. No intracranial mass or pathologic enhancement. 3. Mild to moderate small vessel disease. Electronically signed by: Edmundo Lara M.D. 06/18/2018 4:56 PM
[2018-06-18] MEDS ORDERED: NSS + 20MEQ KCL 20 MEQ/1,000 ML BAG IV ONE (18:45)
[2018-06-18 20:14] LABS: Lyme Ab IgM w/WB Rflx Negative (Negative)
[2018-06-18] MEDS: INSULIN GLARGINE SOLOSTAR 100 UNITS/ML 3 ML PEN SQ SCH (20:14)
[2018-06-18] MEDS: RIVAROXABAN 20 MG TAB PO SCH (20:14)
[2018-06-18 20:15] LABS: Lyme Ab IgG w/WB Rflx Negative (Negative)
[2018-06-18] MEDS: ACETAMINOPHEN 325 MG TAB PO PRN (20:21)
[2018-06-18] MEDS ORDERED: PNEUMOCOCCAL POLYSACCHARIDES 25 MCG/0.5 ML VIAL/SYR IM ONE (21:15)
[2018-06-18] MEDS ORDERED: PNEUMOCOCCAL ADMINISTRATION CHARGE ONE (21:15)
[2018-06-18 22:46] LABS: Appearance Urine Clear (Clear); Bilirubin Urine Negative (Negative); Blood Urine Negative (Negative); Color Urine Yellow; Glucose Urine UA 3+ (Negative); Ketones Urine Negative (Negative); Leukocyte Esterase Urine Negative (Negative); Nitrite Urine Negative (Negative); Protein Urine Negative (Negative); Specific Gravity Urine 1.033 (1.000-1.030); Urobilinogen Urine Negative (Negative); pH Urine 7.5 (4.5-7.5)
[2018-06-19 07:15] LABS: Hemoglobin 13.5 g/dL (14.0-18.0); Mean Corpuscular Hgb Conc 33.8 g/dL (32-36); Mean Corpuscular Volume 90.3 fL (80-100); Mean Platelet Volume 10.6 fL (7.4-10.4); Platelet Count 209 K/uL (130-400); RDW Coefficient of Variation 12.9 % (11.5-14.5); RDW Standard Deviation 42.7 fL (36.4-46.3); Red Blood Count 4.43 M/uL (4.7-6.1); White Blood Count 5.63 K/uL (4.8-10.8)
[2018-06-19 07:43] LABS: BUN Creatinine Ratio 18.1 (10-20); Calcium 7.9 mg/dl (8.5-10.1); Creatinine Clr Calc Pharmacy 71.9 ml/min; Est GFR (African American) 84.5; Est GFR (Non-African American) 72.9; Magnesium 2.3 mg/dl (1.8-2.4); Potassium 3.4 mmol/L (3.5-5.1)
[2018-06-19] MEDS ORDERED: POTASSIUM CHLORIDE 10 MEQ TABCR PO STA (08:35)
[2018-06-19] MEDS: INSULIN ASPART 100 UNITS/ML 3 ML PEN SC SCH ×4 (08:45→20:25)
[2018-06-19] MEDS: PANTOprazole 40 MG TAB PO SCH (08:46)
[2018-06-19] MEDS: TAMSULOSIN HCL 0.4 MG CAP PO SCH (08:46)
[2018-06-19] MEDS: AMLODIPINE BESYLATE 5 MG TAB PO SCH (08:46)
[2018-06-19] MEDS: ASPIRIN 81 MG ECTAB PO SCH (08:47)
[2018-06-19] MEDS: ATORVASTATIN 40 MG TAB PO SCH (08:47)
[2018-06-19] MEDS: LOSARTAN POTASSIUM 50 MG TAB PO SCH (08:47)
[2018-06-19] MEDS: FINASTERIDE 5 MG TAB PO SCH (08:47)
--- NOTE | 2018-06-19 09:13 | Ultrasound Report ---
BILATERAL CAROTID DOPPLER STUDY HISTORY: Syncope COMPARISON: None. TECHNIQUE: Real-time, grayscale, and color Doppler sonography of the carotid arteries was performed. Imaging reviewed in the transverse and longitudinal planes. All measurements were calculated based on NASCET criteria. FINDINGS: Antegrade flow is seen in the bilateral vertebral arteries. The brachial pressures were not obtained. Minimal calcified plaque within the bilateral carotid bifurcations. The peak systolic velocity within the right ICA is 52 cm/s. The right systolic ratio is 1.0. The peak systolic velocity within the left ICA is 65 cm/s. The left systolic ratio is 1.1. IMPRESSION: No hemodynamically significant stenosis seen within the carotid arteries. Electronically signed by: Jefferson Hernandez M.D. 06/19/2018 9:11 AM
--- NOTE | 2018-06-19 14:01 | Hospitalist Progress Note ---
Date of Service June 19, 2018 Assessment & Plan (1) Syncope and collapse: Syncope and Collapse: Stroke Like Symptoms Likely Vasovagal due to pain DD: Arrhythmias MRI Brain:No acute intracranial findings. No intracranial mass or pathologic enhancement. Mild to moderate small vessel disease. CT head: No acute intracranial abnormality or calvarial fracture. Carotid USD: No hemodynamically significant stenosis seen within the carotid arteries. ECHO:Grade I diastolic dysfunction, EF: 60-65% cardiac enzymes X 2: Negative ECG shows: NSR, 1st degree AV block Monitor on Tele -- R/O arrhythmia Fall precautions Neuro Checks Neurology Consulted PT/OT Check CK levels given muscle pain May need ZIO patch upon discharge DM II Last A1C:8.3 on 06/06/18 Hold PO meds Continue ISS, Lantus Monitor BGs H/O DVT/PE No acute change Continue Xarelto Dyslipidemia Continue Statin Hedrick's esophagus Continue PPI Hypertension Continue Losartan BPH Continue home meds Ascending thoracic aorta Aneurysm Incidental finding on CT Follow up as outpatient Elevated TSH: TSH:6.0 Plan to repeat TSH, Free T4 in AM DVT Px: On Xarelto Code Status Full Code Disposition: Expect to discharge home when stable Subjective Patient is seen and examined at bedside Reports mild B/L LE pain States feeling tired Denies any chest pain, SOB, dizziness No other complaints Tele-- Very transient bradycardia noted today while patient is asleep Physical Exam Vital Signs (Past 24 Hours): Last Vital Signs Temp 36.5 C 06/19/18 11:21 Pulse 73 06/19/18 11:21 Resp 16 06/19/18 11:21 BP 135/81 06/19/18 11:21 Pulse Ox 95 06/19/18 11:21 Physical Exam: Physical Exam: Vitals signs as noted above General Appearance:Moderately built and nourished, no apparent distress Head: normocephalic, Atraumatic Eyes: normal inspection, EOMI Neck: supple, Trachea midline Respiratory/Chest: Normal breath sounds, CTA Cardiovascular: S1, S2, No murmur Abdomen/GI:Soft, Non tender, Bowel sounds present Extremities/Musculoskelatal:normal inspection, no edema Neurologic/Psych:AAOX3, grossly no focal neurological deficits Skin: normal color, warm Results & Data Laboratory Results Short CBC 06/19/18 Range/Units 06:46 WBC 5.63 (4.8-10.8) K/uL Hgb 13.5 L (14.0-18.0) g/dL Hct 40.0 L (42-52) % Plt Count 209 (130-400) K/uL BMP 06/19/18 06:46 Sodium 141 Potassium 3.4 L Chloride 107 Carbon Dioxide 28 BUN 19 H Creatinine 1.04 Glucose 102 H Calcium 7.9 L Urine 06/18/18 Range/Units 22:15 Urine Color Yellow Urine Appearance Clear (Clear) Urine pH 7.5 (4.5-7.5) Ur Specific [place] 1.033 H (1.000-1.030) Urine Protein Negative (Negative) Urine Glucose (UA) 3+ H (Negative)
--- NOTE | 2018-06-19 14:05 | Neurology Consultation ---
Date of Consultation June 19, 2018 Assessment & Plan (1) Syncope and collapse: 1. MRI no acute findings 2. carotid - no significant stenosis 3. EEG- no seizure focus 4. continue Xarelto as ordered 5. follow with PCP for management of HTN, DM, HLD 6. likely vasovagal syncope 7. no follow up needed with neurology unless recurrence of episode. Supervising Physician Co-Signing Physician Notes I have seen and discussed above patient with Dr Adarsh Jackson, neurology I saw Mr. Lam today,, examined him, reviewed his EEG and outstanding laboratory studies and imaging studies and discussed his case with Lis pérez PA-C. History is certainly consistent with a vaguely mediated syncopal event initiated by the pain in extreme muscle cramp in the left calf There is no evidence that this man had a primary seizure and I doubt that there were any cardiac arrhythmia involved either other than vaguely mediated bradycardia . His EEG is normal. At this point I believe he can be discharged and followed up with his primary care physician need to see him on an outpatient basis unless he has recurrent events of this type or unless unequivocal seizure-like activity emerges Adarsh Jackson MD History of Present Illness Reason for Consultation: stroke like symptoms- syncope Requesting Physician: Bridger Card MD Attending Physician: Bridger Card MD History of Present Illness Denis is a 67 year old male with PMH DM II, DVT/PE on chronic anticoagulation, HLD, Hedrick's esophagus, HTN, BPH, former smoker who presents with a syncopal episode. He was woke from sleep with a bad leg cramp/pain in his calf which he tried to walk but then suddenly collapsed and had a LOC. he was also diaphoretic.. LOC lasted 2 minutes and had slurred speech which lasted for about 30 seconds after the syncopal episode. He was also noted to have bladder incontinence. When he woke he was not confused and didn't bite his tongue. Cherry is feeling weak, and has generalized body ache in stiffness in his extremities after the episode. He has had poor sleep x 2 months duration for which he had tried melatonin which did not help. He states the only medication that has changed is his insulin. denies CP ,SOB, abdominal pain, once sided weakness, numbness tingling, N, V, vision changes, headache. He is a and gets some of his medication from the [place]. Wants a detail list of what he is to take. Allergies Allergy/AdvReac Type Severity Reaction Status Date / Time erythromycin base Allergy Unknown Unknown Verified 06/18/18 02:37 Home Medications Home Medications Medication Instructions Recorded Confirmed Type amlodipine 10 mg PO DAILY 06/18/18 06/18/18 History aspirin 81 mg PO DAILY 06/18/18 06/18/18 History atorvastatin 40 mg PO DAILY 06/18/18 06/18/18 History empagliflozin [Jardiance] 25 mg PO DAILY 06/18/18 06/18/18 History finasteride 5 mg PO DAILY 06/18/18 06/18/18 History insulin glargine [Lantus Solostar 28 unit SUBCUT DAILY 06/18/18 06/18/18 History U-100 Insulin] losartan 100 mg PO DAILY 06/18/18 06/18/18 History metformin 1,000 mg PO BID 06/18/18 06/18/18 History pantoprazole 40 mg PO DAILY 06/18/18 06/18/18 History rivaroxaban [Xarelto] 20 mg PO HS 06/18/18 06/18/18 History tamsulosin 0.4 mg PO DAILY 06/18/18 06/18/18 History Patient History Medical History DM type 2 (diabetes mellitus, type 2) (Chronic) Dyslipidemia (Chronic) Barretts esophagus (Chronic) Hypertension (Chronic) BPH (benign prostatic hyperplasia) (Chronic) Surgical History H/O shoulder surgery (Chronic) History of appendectomy (Chronic) History of tonsillectomy and adenoidectomy (Chronic) Social History Communication Ability: Effective Beliefs That Will Affect Care: None marital status: Current Living Situation: Spouse Other Information That Helps Us Care for You: No Feels Safe at Home: Yes Safety Concerns: Feels Safe At This Time Smoking Status: Former smoker Hx Alcohol Use: Yes Hx Substance Use: No Physical Exam Vital Signs (Past 24 Hours): Last Vital Signs Temp 36.5 C 06/19/18 11:21 Pulse 73 06/19/18 11:21 Resp 16 04/01/19 11:21 BP 135/81 06/19/18 11:21 Pulse Ox 95 06/19/18 11:21 Physical Exam: Constitutional: appearance over nourished Ears, Nose, Mouth and Throat: mucous membranes moist, no injection and skin normal, eyes normal Cardiovascular: normal S-1 and S-2 and regular rate and rhythm Respiratory: clear to auscultation (CTA) and no rales, ronchi or wheeze Musculoskeletal: no peripheral edema and good distal pulses Skin: no stigmata of neurocutaneous disease noted and normal and intact Eyes: extraocular muscles intact (EOMI) and pupils equal, round and reactive to light (PERRL) NEUROLOGIC EXAMINATION: Mental status: Alert and interactive Oriented to full date and location Oriented to person Speech fluent with no evidence of aphasia Cranial Nerves smile eye brow raise symmetric Reflexes: Deep tendon reflexes were symmetrical and graded 2/5. Sensory: intact to vibration Coordination: finger to nose no bi pass Gait/Stance: Posture normal. move in bed without difficulty Motor: Negative for pronator drift of out stretched arms with eyes closed. Strength: Normal - 5/5 all extremities Results & Data Laboratory Results Abnormal lab results 06/18/18 06/18/18 06/18/18 Range/Units 16:42 19:59 22:15 RBC (4.7-6.1) M/uL Hgb (14.0-18.0) g/dL Hct (42-52) % MPV (7.4-10.4) fL Potassium (3.5-5.1) mmol/L BUN (7-18) mg/dl Glucose (70-99) mg/dl POC Glucose 122 H 128 H (70-99) Calcium (8.5-10.1) mg/dl Cholesterol (0-200) mg/dl Ur Specific [place] 1.033 H (1.000-1.030) Urine Glucose (UA) 3+ H (Negative) 06/19/18 06/19/18 06/19/18 Range/Units 06:46 06:46 07:23 RBC 4.43 L (4.7-6.1) M/uL Hgb 13.5 L (14.0-18.0) g/dL Hct 40.0 L (42-52) % MPV 10.6 H (7.4-10.4) fL Potassium 3.4 L (3.5-5.1) mmol/L BUN 19 H (7-18) mg/dl Glucose 102 H (70-99) mg/dl POC Glucose 104 H (70-99) Calcium 7.9 L (8.5-10.1) mg/dl Cholesterol 219 H (0-200) mg/dl Ur Specific [place] (1.000-1.030) Urine Glucose (UA) (Negative) 06/19/18 Range/Units 11:09 RBC (4.7-6.1) M/uL Hgb (14.0-18.0) g/dL Hct (42-52) % MPV (7.4-10.4) fL Potassium (3.5-5.1) mmol/L BUN (7-18) mg/dl Glucose (70-99) mg/dl POC Glucose 159 H (70-99) Calcium (8.5-10.1) mg/dl Cholesterol (0-200) mg/dl Ur Specific [place] (1.000-1.030) Urine Glucose (UA) (Negative) Diagnostic Findings CXR-No acute process Chest CTA- No evidence of acute pulmonary emboli. Nonocclusive chronic segmental pulmonary emboli are again noted bilaterally which appear unchanged from 11/16/2017. Mild fusiform dilation of the ascending thoracic aorta without dissection, 3.9 x 4.0 cm. No focal airspace consolidation to suggest pneumonia. Coronary arterial calcifications. Venous doppler- the partially occlusive thrombus about the left lower extremity has improved from 09/06/2017 and is likely chronic. No acute deep venous thrombi identified. MRI brain- No acute intracranial findings. No intracranial mass or pathologic enhancement. . Mild to moderate small vessel disease. carotid doppler- No acute intracranial findings. No intracranial mass or pathologic enhancement. Mild to moderate small vessel disease.
[2018-06-19] MEDS: RIVAROXABAN 20 MG TAB PO SCH (20:17)
[2018-06-19] MEDS: ACETAMINOPHEN 325 MG TAB PO PRN (20:17)
[2018-06-19] MEDS: INSULIN GLARGINE SOLOSTAR 100 UNITS/ML 3 ML PEN SQ SCH (20:25)
[2018-06-20 07:42] LABS: BUN Creatinine Ratio 18.5 (10-20); Calcium 8.2 mg/dl (8.5-10.1); Creatinine Clr Calc Pharmacy 71.3 ml/min; Est GFR (African American) 82.6; Est GFR (Non-African American) 71.3; Potassium 3.7 mmol/L (3.5-5.1)
[2018-06-20] MEDS: INSULIN ASPART 100 UNITS/ML 3 ML PEN SC SCH ×2 (08:11→12:24)
[2018-06-20] MEDS: ASPIRIN 81 MG ECTAB PO SCH (08:12)
[2018-06-20] MEDS: TAMSULOSIN HCL 0.4 MG CAP PO SCH (08:12)
[2018-06-20] MEDS: LOSARTAN POTASSIUM 50 MG TAB PO SCH (08:12)
[2018-06-20] MEDS: FINASTERIDE 5 MG TAB PO SCH (08:12)
[2018-06-20] MEDS: AMLODIPINE BESYLATE 5 MG TAB PO SCH (08:13)
[2018-06-20] MEDS: PANTOprazole 40 MG TAB PO SCH (08:13)
[2018-06-20] MEDS: ATORVASTATIN 40 MG TAB PO SCH (08:13)
--- NOTE | 2018-06-20 10:47 | Hospitalist Progress Note ---
Date of Service June 20, 2018 Assessment & Plan (1) Syncope and collapse: Syncope and Collapse: Stroke Like Symptoms-- Acute CVA ruled out Likely Vasovagal due to pain DD: Arrhythmias MRI Brain:No acute intracranial findings. No intracranial mass or pathologic enhancement. Mild to moderate small vessel disease. CT head: No acute intracranial abnormality or calvarial fracture. Carotid USD: No hemodynamically significant stenosis seen within the carotid arteries. ECHO:Grade I diastolic dysfunction, EF: 60-65% cardiac enzymes X 2: Negative ECG shows: NSR, 1st degree AV block Monitor on Tele -- Transient single episode of mild bradycardia--no recurrence Fall precautions Neuro Checks Appreciate Neurology Input PT/OT Advised patient regarding ZIO as outpatient DM II Last A1C:8.3 on 06/06/18 Hold PO meds Continue ISS, Lantus Monitor BGs H/O DVT/PE No acute change Continue Xarelto Dyslipidemia Continue Statin Hedrick's esophagus Continue PPI Hypertension Continue Losartan BPH Continue home meds Ascending thoracic aorta Aneurysm Incidental finding on CT Follow up as outpatient Elevated TSH: TSH:6.0 Plan to repeat TSH, Free T4 in AM Insomnia: Advised Sleep Hygiene Melatonin if needed DVT Px: On Xarelto Code Status Full Code Disposition: Plan to discharge home today Subjective Patient is seen and examined at bedside Doing well today Leg pain much improved No new complaints Denies any chest pain, SOB, dizziness Tele--No recurrence of Bradycardia Physical Exam Vital Signs (Past 24 Hours): Last Vital Signs Temp 36.8 C 06/20/18 07:09 Pulse 64 06/20/18 07:09 Resp 18 06/20/18 07:09 BP 154/88 H 06/20/18 07:09 Pulse Ox 97 06/20/18 07:09 Physical Exam: Physical Exam: Vitals signs as noted above General Appearance:Moderately built and nourished, no apparent distress Head: normocephalic, Atraumatic Eyes: normal inspection, EOMI Neck: supple, Trachea midline Respiratory/Chest: Normal breath sounds, CTA Cardiovascular: S1, S2, No murmur Abdomen/GI:Soft, Non tender, Bowel sounds present Extremities/Musculoskelatal:normal inspection, no edema Neurologic/Psych:AAOX3, grossly no focal neurological deficits Skin: normal color, warm Results & Data Laboratory Results [facility] 06/20/18 06:59 Sodium 140 Potassium 3.7 Chloride 106 Carbon Dioxide 29 BUN 20 H Creatinine 1.06 Glucose 107 H Calcium 8.2 L Cardiac Enzymes 06/19/18 Range/Units 14:06 Total Creatine Kinase 143 (39-308) U/L
--- NOTE | 2018-06-20 10:53 | Discharge Summary ---
Date of Service June 20, 2018 Admission HPI Per Admitting Provider Patient is a 67-year-old male with history of DM II, DVT/PE on chronic anticoagulation, dyslipidemia, Hedrick's esophagus, hypertension, BPH, former smoker and other problems presents with history of syncopal episode. Patient states he had a bad leg cramp/pain in his calf which woke him up from sleep. Patient tried to walk to see if the pain will resolve but suddenly collapsed resulting in loss of consciousness. Patient was also noted to be diaphoretic at the time. As per the family patient lost consciousness for about 2 minutes and had slurred speech which lasted for about 30 seconds after the syncopal episode. He was also noted to have bladder incontinence. He states feeling weak, has generalized body ache in stiffness in his extremities after the episode. He reports having poor sleep since 2 months duration for which he had tried melatonin which did not help. Denies any previous episodes of syncope. Patient's family noted that he fell on his back resulting in hitting his head during the episode. Denies any history of chest pain, SOB, palpitations, dizziness, pedal edema, cough, wheezing, fever, chills, headache, weakness, numbness, change in vision, double/blurry vision, vertigo, facial deformity, bowel incontinence, nausea, vomiting, abdominal pain, diarrhea, dysuria. CT head showed no acute intracranial abnormality. Admission Exam Per Admitting Provider Physical Exam: Vitals signs as noted above General Appearance:Moderately built and nourished, no apparent distress Head: normocephalic, Atraumatic Eyes: normal inspection, EOMI Neck: supple, Trachea midline Respiratory/Chest: Normal breath sounds, CTA Cardiovascular: S1, S2, No murmur Abdomen/GI:Soft, Non tender, Bowel sounds present Extremities/Musculoskelatal:normal inspection, no edema Neurologic/Psych:AAOX3, grossly no focal neurological deficits Skin: normal color, warm Principal Diagnosis Discharge Information Discharge Diagnosis Syncope and Collapse Discharge Goals Decrease discomfort,Improve disease control, Improve function Discharge Activity Limitations Resume your previous activity Discharge Data Allergies Allergy/AdvReac Type Severity Reaction Status Date / Time erythromycin base Allergy Unknown Unknown Verified 06/18/18 02:37 Consultations 06/18/18 07:21 ED Decision to Admit Stat 06/18/18 13:57 Consult Case Management - Discharge Planning Routine Consult Neurology Routine Procedures Performed MRI Brain: 1. No acute intracranial findings. 2. No intracranial mass or pathologic enhancement. 3. Mild to moderate small vessel disease. Carotid Doppler: No hemodynamically significant stenosis seen within the carotid arteries. Venous Doppler: Partially occlusive thrombus about the left popliteal and posterior tibial veins, age-indeterminate however likely acute. CT head: No acute intracranial abnormality or calvarial fracture. CTA: 1. No evidence of acute pulmonary emboli. Nonocclusive chronic segmental pulmonary emboli are again noted bilaterally which appear unchanged from 11/16/2017. 2. Mild fusiform dilation of the ascending thoracic aorta without dissection, 3.9 x 4.0 cm. 3. No focal airspace consolidation to suggest pneumonia. 4. Coronary arterial calcifications. ECHO: There is normal left ventricular wall thickness The left ventricular wall motion is normal Ejection fraction = 60-65% Aortic wall sclerosis mild, without significant aortic valvular stenosis Grade 1 diastolic dysfunction (abnormal relaxation pattern). Ordered Studies 06/18/18 02:23 CT angio chest PE protocol Urgent CT head/brain wo con Urgent 06/18/18 03:57 US venous doppler LE LT Urgent 06/18/18 13:57 MR brain wo/w con Routine 06/19/18 US carotid doppler BI Routine Hospital Course (1) Syncope and collapse: Syncope and Collapse: Stroke Like Symptoms-- Acute CVA ruled out Likely Vasovagal due to pain DD: Arrhythmias MRI Brain:No acute intracranial findings. No intracranial mass or pathologic enhancement. Mild to moderate small vessel disease. CT head: No acute intracranial abnormality or calvarial fracture. Carotid USD: No hemodynamically significant stenosis seen within the carotid arteries. ECHO:Grade I diastolic dysfunction, EF: 60-65% cardiac enzymes X 2: Negative ECG shows: NSR, 1st degree AV block Monitor on Tele -- Transient single episode of mild bradycardia--no recurrence Fall precautions Neuro Checks Appreciate Neurology Input PT/OT Advised patient regarding ZIO as outpatient DM II Last A1C:8.3 on 06/06/18 Hold PO meds Continue ISS, Lantus Monitor BGs H/O DVT/PE No acute change Continue Xarelto Dyslipidemia Continue Statin Hedrick's esophagus Continue PPI Hypertension Continue Losartan BPH Continue home meds Ascending thoracic aorta Aneurysm Incidental finding on CT Follow up as outpatient Elevated TSH: TSH:6.0 Plan to repeat TSH, Free T4 in AM Insomnia: Advised Sleep Hygiene Melatonin if needed DVT Px: On Xarelto Code Status Full Code Disposition: Plan to discharge home today Total Time Total Time Spent Total Time Spent (In Minutes): 37 minutes Total Time Includes: Examination of the Patient, Discharge Planning, Medication Reconciliation, Communication With Other Providers and Other Discharge Plan Discharge Items Patient Disposition: Home - Self-Care Reason For Visit: SYNCOPE Discharge Diagnosis: Syncope and Collapse Discharge Goals: Decrease discomfort, Improve disease control and Improve function Activity: Resume your previous activity Exercise/Sports: Gradually increase as tolerated Non-emergency contact: Primary Care Provider Call non-emergency contact if: you have any medication questions, your symptoms worsen, your pain is not controlled, your pain is worsening, your pain is unusual for you, your pain is concerning for you and you have a fever Follow-up/Referrals: Apolinar Wayne, [Primary Care Provider] - Diet: Carb Consistent or DM2 and Heart Healthy Addtl Provider Instructions: Follow up with your PCP on 06/27/18 at 2:45pm Discuss with your PCP regarding possible need for ZIO patch monitor Seek immediate medical attention if your symptoms reoccur or worsen Prescriptions: Continued amlodipine 10 mg Tablet 10 mg PO DAILY RF: 0 atorvastatin 40 mg Tablet 40 mg PO DAILY RF: 0 aspirin 81 mg Tablet,Delayed Release (Dr/Ec) 81 mg PO DAILY RF: 0 finasteride 5 mg Tablet 5 mg PO DAILY RF: 0 Jardiance 25 mg Tablet 25 mg PO DAILY RF: 0 pantoprazole 40 mg Tablet,Delayed Release (Dr/Ec) 40 mg PO DAILY RF: 0 losartan 100 mg Tablet 100 mg PO DAILY RF: 0 tamsulosin 0.4 mg Capsule 0.4 mg PO DAILY RF: 0 metformin 1,000 mg Tablet Extended Release 24hr 1,000 mg PO BID RF: 0 Lantus Solostar U-100 Insulin 100 unit/mL (3 mL) Insulin Pen 28 unit SUBCUT DAILY RF: 0 Xarelto 20 mg Tablet 20 mg PO HS RF: 0 Stand-Alone Forms: [facility] Discharge Orders: Discharge Order (Routine); Ordered 06/20/18 Ordered By: Bridger Card Admission Data Admit Date/Time: 06/18/18 08:42 Attending Provider: Bridger Card Admit Provider: Bridger Card Primary Care Provider: Apolinar Wayne Other Providers: Bridger Card ; Adarsh Jackson Service: Telemetry Other Interventions: Discharge Summary Assessment (RN) Last Done: 06/20/18 14:00 Pending Studies at Discharge: No DC Date/Time DO NOT enter until pt leaves facility: 06/20/18 14:23
== END 2018-06-20 14:23 | disposition home or self-care (01) ==
LOC: ED 01:34 → 2S 01:34

== ENCOUNTER 2020-06-08 22:59 | Inpatient (IN) ==
[2020-06-08] MEDS ORDERED: OPTIRAY 320 125ml IV ONE (23:40)
--- NOTE | 2020-06-09 00:03 | Emergency Department Note ---
History of Present Illness General Chief complaint: Seizure Stated complaint: POSSIBLE SEIURE Time Seen by Provider: 06/08/20 23:18 Source: patient Mode of arrival: ambulatory Limitations: no limitations History of Present Illness Provider complaint: seizure Onset (ago): hour(s) Exacerbated By: + none Associated symptoms: + denies other symptoms This is a 69-year-old male who presents emergency room via EMS following a seizure at home. Patient was seen and evaluated here earlier today for di zziness and possible adverse reaction to recent Covid vaccination. Patient had labs performed, negative orthostatics, was hydrated, and given meclizine. Patient was well-appearing at time of discharge and went home with . says they went home, and he walked into the kitchen and said to her that he did not feel well and she helped him to go lay down in the bed at which point she describes him having a tonic-clonic seizure in front of her. states it lasted approximately a minute. No trauma. She states that his breathing was irregular and eyes were closed. She states following that minute patient seemed to be asleep and was difficult to arouse. had already called 911 by that time. On arrival here patient would open eyes to voice and answer a few simple questions. He does not recall any of the events after getting home from his first ER visit. Patient does take Xarelto daily due to history of DVT/PE. No prior history of seizures in him or any family members. No other recent trauma. Pt seen during a time of high acuity and national emergency pandemic while wearing PPE. Home Medications Medication Instructions Recorded Confirmed Type Jardiance 25 mg PO QAM 06/18/18 06/09/20 History Lantus Solostar U-100 Insulin 28 unit SUBCUT QPM 06/18/18 06/09/20 History Xarelto 20 mg PO QAM 06/18/18 06/09/20 History amlodipine 10 mg PO QAM 06/18/18 06/09/20 History aspirin 81 mg PO QAM 06/18/18 06/09/20 History atorvastatin 40 mg PO QAM 06/18/18 06/09/20 History finasteride 5 mg PO QAM 06/18/18 06/09/20 History losartan 100 mg PO QAM 06/18/18 06/09/20 History pantoprazole 40 mg PO QAM 06/18/18 06/09/20 History tamsulosin 0.4 mg PO QAM 06/18/18 06/09/20 History multivitamin 1 tab PO DAILY 08/21/19 06/09/20 History carvedilol 3.125 mg PO BID 06/09/20 06/09/20 History gabapentin 300 mg PO TID 06/09/20 06/09/20 History magnesium 250 mg PO DAILY 06/09/20 06/09/20 History metformin 1,000 mg PO BID 06/09/20 06/09/20 History mirtazapine 30 mg PO HS PRN 06/09/20 06/09/20 History Allergies Allergy/AdvReac Type Severity Reaction Status Date / Time erythromycin base Allergy Unknown PT NOT SURE Verified 06/08/20 16:28 Past Med/Surg History Medical History (Updated 06/09/20 @ 12:12 by Jana Michaels MD) Anxiety Barretts esophagus BPH (benign prostatic hyperplasia) DM type 2 (diabetes mellitus, type 2) Dyslipidemia History of agent [place] exposure History of DVT (deep vein thrombosis) L LEG 1.5 YR AGO History of pulmonary embolism BILATERAL - 1.5 YR AGO Hypertension SOB (shortness of breath) on exertion Surgical History H/O shoulder surgery R X 2 - MOST RECENT: DEC 2018 History of anesthesia reaction REMOTE HX - WITH ONE SURGERY (PT UNSURE WHAT SURGERY) - SLEPT FOR 2 DAYS AFTER, NO -RE-OCCURENCE History of appendectomy History of cataract surgery LEFT History of colonoscopy History of endoscopy History of foot surgery L History of tonsillectomy and adenoidectomy Family History Father Diabetes Sister Cancer Social History Smoking Status: Never smoker Second Hand Exposure: No; Do You Dip or Chew Tobacco: No; Hx Alcohol Use: Yes Alcohol type: beer Hx Substance Use: No Preferred Language: Wolof Communication Ability: Effective Net Application Architect Required: No Beliefs That Will Affect Care: None marital status: Current Living Situation: Family Other Information That Helps Us Care for You: No Feels Safe at Home: Yes Safety Concerns: Feels Safe At This Time Assistive Devices: None Assistive Devices Comment: Hearing Aides at home as well as glasses Review of Systems See HPI for pertinent positives & negatives. All systems reviewed & are unremarkable except as noted in HPI & below Physical Exam Vital Signs Vital Signs - 24 hr 06/08/20 23:03 06/08/20 23:10 06/08/20 23:30 Temperature 37.0 C Temperature Source Oral Pulse Rate 101 H 107 H 98 H Pulse Rate [Apical] Pulse Rate from SpO2 Sensor 101 H 98 H Pulse Rhythm Regular Pulse Rhythm [Apical] Respiratory Rate 17 20 19 Respiratory Effort / Characteristics Non-Labored Respiratory Depth Normal Respiratory Pattern Regular Blood Pressure 177/88 H 177/88 H 158/81 H Blood Pressure [Right Arm] Blood Pressure Mean 117 117 106 Blood Pressure Mean [Right Arm] Blood Pressure Position Lying Pulse Oximetry 96 93 94 Oxygen Delivery Method Nasal Cannula Oxygen Flow Rate 4 Sepsis Recent Fever Within 48 Hours No Sepsis New/Unexplained Change in Mental Status N/A Sepsis Action Taken by Nursing No Action Required 06/09/20 00:00 06/09/20 00:30 06/09/20 01:26 Temperature Temperature Source Pulse Rate 93 H 92 H Pulse Rate [Apical] 90 Pulse Rate from SpO2 Sensor 93 H Pulse Rhythm Pulse Rhythm [Apical] Regular Respiratory Rate 13 12 17 Respiratory Effort / Characteristics Respiratory Depth Normal Respiratory Pattern Blood Pressure 159/85 H 148/77 H Blood Pressure [Right Arm] 143/78 H Blood Pressure Mean 109 100 Blood Pressure Mean [Right Arm] 99 Blood Pressure Position Pulse Oximetry 96 98 Oxygen Delivery Method Nasal Cannula Oxygen Flow Rate 2 Sepsis Recent Fever Within 48 Hours Sepsis New/Unexplained Change in Mental Status Sepsis Action Taken by Nursing GENERAL: alert, somnolent appearing, well nourished, no distress, non-toxic EYE EXAM: normal conjunctiva, PERRL and EOM's grossly intact OROPHARYNX: no exudate, no erythema, lips, buccal mucosa, and tongue normal and mucous membranes are moist with dried blood noted on tongue and b/l lips NECK: supple, no nuchal rigidity, no adenopathy, non-tender LUNGS: Clear to auscultation. Normal chest wall mechanics, no w/r/r HEART: no murmurs, S1 normal and S2 normal ABDOMEN: abdomen soft, non-tender, normo-active bowel sounds, no masses, no rebound or guarding. BACK: Back is symmetrical on inspection and there is no deformity, no midline tenderness, no CVA tenderness. SKIN: no rashes and no bruising UPPER EXTREMITIES: upper extremities are grossly normal. FROM, nml pulses b/l. LOWER EXTREMITIES: No pitting edema. FROM, nml pulses b/l. NEURO EXAM: Somnolent but arousable, answers yes/no questions, cannot recall recent events after getting home from the hospital earlier, cranial nerves II- XII grossly intact, no facial droop, normal speech, no gross weakness of arms, no gross weakness of legs. Gross sensation intact. Course Course 0030: Pt and updated on results and plan. 0050: Discussed with Dr. Franz. Administered Medications Amlodipine Besylate (Amlodipine Besylate 5 Mg Tab) 10 mg PO [facility] Stop: 07/09/20 08:59 Last Admin: 06/10/20 08:47 Dose: 10 mg Documented by: [id number] Admin: 06/09/20 08:26 Dose: 10 mg Documented by: [id number] Aspirin (Aspirin 81 Mg Ectab) 81 mg PO [facility] Stop: 07/09/20 08:59 Last Admin: 06/10/20 08:47 Dose: 81 mg Documented by: [id number] Admin: 06/09/20 08:25 Dose: 81 mg Documented by: [id number] Atorvastatin Calcium (Atorvastatin 40 Mg Tab) 40 mg PO [facility] Stop: 07/09/20 08:59 Last Admin: 06/10/20 08:46 Dose: 40 mg Documented by: [id number] Admin: 06/09/20 08:27 Dose: 40 mg Documented by: [id number] Carvedilol (Carvedilol 3.125 Mg Tab) 3.125 mg PO BID [facility] Stop: 07/09/20 08:59 Last Admin: 06/10/20 20:26 Dose: 3.125 mg Documented by: [id number] Admin: 06/10/20 08:45 Dose: 3.125 mg Documented by: [id number] Admin: 06/09/20 21:09 Dose: 3.125 mg Documented by: [id number] Admin: 06/09/20 08:27 Dose: 3.125 mg Documented by: [id number] [facility]asteride ([facility] 5 Mg Tab) [facility]: 07/09/20 08:59 Last Admin: 06/10/20 08:49 Dose: 5 mg Documented by: [id number] Admin: 06/09/20 08:29 Dose: 5 mg Documented by: [id number] Gabapentin (Gabapentin 300 Mg Cap) 300 mg PO TID [facility] Stop: 07/09/20 08:59 Last Admin: 06/10/20 20:26 Dose: 300 mg Documented by: [id number] Admin: 06/10/20 14:24 Dose: 300 mg Documented by: [id number] Admin: 06/10/20 08:46 Dose: 300 mg Documented by: [id number] Admin: 06/09/20 21:09 Dose: 300 mg Documented by: [id number] Admin: 06/09/20 17:14 Dose: 300 mg Documented by: [id number] Admin: 06/09/20 08:26 Dose: 300 mg Documented by: [id number] Insulin Aspart (Insulin Aspart 100 Units/Ml 3 Ml Pen) 0 units SC ACHS [facility] Stop: 07/09/20 07:29 Last Admin: 06/10/20 20:28 Dose: 2 units Documented by: [id number] Cosigned by: [id number] Admin: 06/10/20 16:53 Dose: 6 units Documented by: [id number] Cosigned by: [id number] Admin: 06/10/20 12:23 Dose: 2 units Documented by: [id number] Cosigned by: [id number] Admin: 06/10/20 08:51 Dose: 2 units Documented by: [id number] Cosigned by: [id number] Admin: 06/09/20 21:08 Dose: 1 units Documented by: [id number] Cosigned by: [id number] Admin: 06/09/20 17:17 Dose: 2 units Documented by: [id number] Cosigned by: [id number] Admin: 06/09/20 12:42 Dose: Not Given Documented by: [id number] Cosigned by: [id number] Admin: 06/09/20 09:01 Dose: Not Given Documented by: [id number] Cosigned by: [id number] Insulin Glargine (Insulin Glargine Solostar 100 Units/Ml 3 Ml Pen) 28 units SQ QPM [facility] Stop: 07/09/20 20:59 Last Admin: 06/10/20 20:26 Dose: 28 units Documented by: [id number] Cosigned by: [id number] Admin: 06/09/20 21:08 Dose: 28 units Documented by: [id number] Cosigned by: [id number] Losartan Potassium (Losartan Potassium 50 Mg Tab) [facility] Stop: 07/09/20 08:59 Last Admin: 06/10/20 08:47 Dose: 100 mg Documented by: [id number] Admin: 06/09/20 08:28 Dose: 100 mg Documented by: [id number] Magnesium Oxide (Magnesium Oxide 400 Mg Tab) 400 mg PO DAILY [facility] Stop: 07/09/20 08:59 Last Admin: 06/10/20 08:46 Dose: 400 mg Documented by: [id number] Admin: 06/09/20 08:29 Dose: 400 mg Documented by: [id number] Multivitamins (Multivitamin Tab) 1 tab PO DAILY [facility] Stop: 07/09/20 08:59 Last Admin: 06/10/20 08:48 Dose: 1 tab Documented by: [id number] Admin: 06/09/20 08:28 Dose: 1 tab Documented by: [id number] Pantoprazole Sodium (Pantoprazole 40 Mg Tab) 40 mg PO [facility] Stop: 07/09/20 08:59 Last Admin: 06/10/20 08:46 Dose: 40 mg Documented by: [id number] Admin: 06/09/20 08:29 Dose: 40 mg Documented by: [id number] Rivaroxaban (Rivaroxaban 20 Mg Tab) 20 mg PO [facility] Stop: 07/09/20 08:59 Last Admin: 06/10/20 08:47 Dose: 20 mg Documented by: [id number] Admin: 06/09/20 08:29 Dose: 20 mg Documented by: [id number] Tamsulosin HCl (Tamsulosin Hcl 0.4 Mg Cap) 0.4 mg PO [facility] Stop: 07/09/20 08:59 Last Admin: 06/10/20 08:46 Dose: 0.4 mg Documented by: [id number] Admin: 06/09/20 08:29 Dose: 0.4 mg Documented by: [id number] Discontinued Medications Gadobutrol (Gadobutrol 65ml Vial) 8.5 ml IV ONCE ONE Stop: 06/10/20 01:52 Last Admin: 06/09/20 07:02 Dose: 8.5 ml Documented by: [id number] Levetiracetam 1,000 mg/ Sodium (Chloride) 110 mls @ 440 mls/hr IV NOW STA Stop: 06/09/20 00:46 Last Infusion: 06/09/20 01:25 Dose: 0 mls/hr Documented by: [id number] Admin: 06/09/20 00:44 Dose: 440 mls/hr Documented by: [id number] Sodium Chloride (Nss 1000ml) 1,000 mls @ 80 mls/hr IV .[id number] [facility] Stop: 06/09/20 21:00 Last Admin: 06/10/20 10:09 Dose: Not Given Documented by: [id number] Infusion: 06/09/20 21:11 Dose: 0 mls/hr Documented by: [id number] Admin: 06/09/20 04:54 Dose: 80 mls/hr Documented by: [id number] Lorazepam (Ativan) 0.5 mg in 1 mls @ 1 mls/min IV NOW STA Stop: 06/09/20 05:39 Last Admin: 06/09/20 06:02 Dose: 1 mls/min Documented by: [id number] Ioversol (Optiray 320 125ml) 125 ml IV ONCE ONE Stop: 06/08/20 23:41 Last Admin: 06/08/20 23:40 Dose: 115 ml Documented by: [id number] Ioversol (Ioversol 100ml) 94 ml IV ONCE ONE Stop: 06/09/20 15:04 Last Admin: 06/09/20 15:04 Dose: 94 ml Documented by: [id number] Potassium Chloride (Potassium Chloride Pwd 20 Meq Pack) 40 meq PO 1530 ONE Stop: 06/10/20 15:31 Last Admin: 06/10/20 15:30 Dose: 40 meq Documented by: [id number] Medical Decision Making Differential Diagnosis Differential diagnosis includes etiologies such as infection, hypoglycemia, electrolyte abnormalities, cardiac sources, intracerebral event, trauma, toxicologic, neurologic, as well as others were entertained. Medical Records Attestation: I reviewed the patient's medical records. Home Medications Current Medication List: was personally reviewed by me Laboratory Data Attestation: I reviewed the patient's lab results. Result diagrams: 06/11/20 05:52 06/11/20 05:52 Lab Results 06/08/20 06/09/20 Range/Units 23:22 00:11 POC Hgb 13.9 L (14.0-18.0) g/dl POC Hct 41 L (42-52) % POC Sodium 134 L (135-144) mmol/L POC Potassium 4.0 (3.3-5.0) mmol/L POC Chloride 102 (101-112) mmol/L POC Total CO2 23 L (24-31) mmol/L POC Anion Gap 14.0 L (16-25) mmol/L POC BUN 25 H (7-18) mg/dl POC Creatinine 0.9 (0.6-1.3) mg/dl POC Glucose 259 H (70-99) mg/dl POC Glucose (other) 205 H (70-99) mg/dl POC Ioniz Calcium [place] 1.10 L (1.12-1.32) mmol/l Imaging Data Radiologist's Impression: CT head: Comparison June 18, 2018. There is a 1.4 cm rounded area of decreased density in the medial right temporal lobe, new since previous. No hemorrhage or mass-effect is seen. This most likely represents subacute infarct. Consider MRI for further characterization. Mild periventricular white matter low-density bilaterally consistent with chronic small vessel disease. The remaining oquendo-white matter differentiation is maintained. The paranasal sinuses and mastoid air cells are normal. There is no skull fracture or scalp hematoma. Radiologist: Madi Gross MD CTA head: Mild calcification of the cavernous portion of the distal internal carotid arteries bilaterally without significant stenosis. Normal variant of small right A1 segment with the anterior cerebral arteries filling mostly from the left side. The distal vertebral and basilar arteries are mildly tortuous but widely patent. Anterior, middle, and posterior cerebral arteries appear within normal limits. No aneurysm, vascular malformation, or arterial thrombus is seen. 1.4 cm hypodensity in the medial right temporal lobe. Consider MRI for further characterization. Radiologist: Madi Gross MD CTA neck: The thoracic aorta is mildly calcified but nondilated. There is no aneurysm or dissection. Trace amount of calcified plaque in the right carotid bifurcation with no significant stenosis of the right common or internal carotid arteries. Left carotid bifurcation is widely patent. Both vertebral arteries are widely patent. No stenosis or dissection. The neck soft tissues appear unremarkable. Radiologist: Madi Gross MD ECG Data Attestation: I personally reviewed and interpreted this ECG as follows: Indication: + altered mental status Rate (beats per minute): 103 Rhythm: + sinus tachycardia ECG Intervals/blocks: + First degree AV block, + Normal QRS and + Normal QT ECG [place]: + Normal ECG ST segments: + Normal ST segments Blood Pressure Blood Pressure Findings: Elevated blood pressure Blood Pressure Disposition: further management by hospitalist MDM Narrative This is a 69-year-old male who presents emergency department after initial evaluation earlier today for dizziness now having had a seizure as witnessed by the at home. Patient immediately sent for neuroimaging as this had not been done previously. All other labs, EKG, chest x-ray prior were well- appearing, patient was well-appearing at time of discharge. Patient afebrile here, still seemingly postictal as he does not recall events leading up to and after the seizure-like activity as described by the . CT read by overnight radiologist as a subacute infarct. Patient was given 1 g of Keppra as a precaution. Patient had no recurrent episodes of seizure-like activity while in the emergency room. Case discussed with hospitalist for additional evaluation and management. No intracranial hemorrhage noted. Vital signs stable. I do not suspect occult infectious etiology. No evidence of acute electrolyte abnormality. Patient's blood glucose mildly elevated. I do not suspect DKA. An order was placed for continuous cardiac monitoring. The monitor shows a rate of _90_ with _normal sinus_ rhythm. Impression & Plan Seizure, CVA (cerebral vascular accident) Discharge Plan Visit Data Chief Complaint: Seizure Stated Complaint: POSSIBLE SEIURE ED Provider: Ivonne Jon Discharge Problem: Seizure, CVA (cerebral vascular accident) Patient Disposition: Admitted As Inpatient Discharge Instructions Interventions: ED Discharge Assessment Last Done: 06/09/20 04:11 Discharge Problem: CVA (cerebral vascular accident) Qualifiers: CVA mechanism: unspecified Qualified Code(s): I63.9 - Cerebral infarction, unspecified
[2020-06-09] MEDS ORDERED: levETIRAcetam 1,000 MG in 0.9 % SODIUM CHLORIDE 100 ML IV STA (00:32)
[2020-06-09] MEDS ORDERED: POLYETHYLENE (MIRALAX) 17 GM PACK PO PRN (04:37)
[2020-06-09] MEDS ORDERED: PHARMACIST DISCHARGE MED REC CONSULT PRN (04:37)
[2020-06-09] MEDS ORDERED: NITROGLYCERIN SL 0.4 MG/TAB TAB SL PRN (04:37)
[2020-06-09] MEDS ORDERED: ACETAMINOPHEN 325 MG TAB PO PRN (04:37)
[2020-06-09] MEDS ORDERED: ONDANSETRON INJ 2 MG/ML 2 ML VIAL IV PRN (04:37)
[2020-06-09] MEDS ORDERED: MIRTAZAPINE TAB 15 MG TAB PO PRN (04:37)
[2020-06-09] MEDS ORDERED: LORazepam 1.5 MG/3 ML VIAL IV PRN (04:37)
[2020-06-09] MEDS ORDERED: CARBOHYDRATES FOR HYPOGLYCEMIA PO PRN (04:45)
[2020-06-09] MEDS ORDERED: GLUCAGON FOR INJ 1 MG VIAL SQ PRN (04:45)
[2020-06-09] MEDS ORDERED: GLUCOSE 10 TABS/TUBE PO PRN (04:45)
[2020-06-09] MEDS ORDERED: DEXTROSE 50% 50 ML SYRINGE IV PRN (04:45)
[2020-06-09] MEDS ORDERED: GLUCOSE 40% GEL 15 GM TUBE PO PRN (04:45)
[2020-06-09] MEDS: SODIUM CHLORIDE 0.9% 1000ML 1,000 ML IV SCH (04:54)
[2020-06-09] MEDS ORDERED: LORazepam 0.5 MG/1 ML VIAL IV STA (05:38)
--- NOTE | 2020-06-09 05:48 | History and Physical Report ---
DATE OF ADMISSION: 06/09/2020 CHIEF COMPLAINT: Seizures. HISTORY OF PRESENT ILLNESS: A 69-year-old male with past medical history significant for type 2 diabetes, hyperlipidemia, pulmonary hypertension, hypertension, BPH, lumbar degenerative disk disease, history of urinary retention, history of pulmonary embolism and deep venous thrombosis, on Xarelto, primary insomnia, lives with his , was brought in because of seizures. The patient received second dose of Pfizer COVID shot last Tuesday. On 06/08/2020 morning he came to the ER because of dizziness and weakness, thought to be from COVID vaccine reaction. He was feeling fine and discharged home. Apparently did fine. Around 9:30 p.m., he had a tonic clonic seizure witnessed by his for a full 1 minute and was unresponsive, had labored breathing. When EMS came and when they shouted at him, he could open his eyes and after a much longer time mental status is , almost back to baseline, but somewhat confused as per . Received a dose of Keppra in the ER and workup showed 1.4 cm density in the medial right temporal lobe thought to be possibly subacute infarct. Currently patient is sleeping, but arousable, and is at bedside. The patient denies any headache or blurred visions or double visions. He is feeling a little lightheaded. No earache, no runny nose, no sore throat, no cough. Appetite is okay. No chest pain or shortness of breath. No nausea, no vomiting, no abdominal pain, no diarrhea or constipation, no blood in stool or black stool. Normal bladder movements. No rash. ALLERGIES: ERYTHROMYCIN, GUAIFENESIN. PAST MEDICAL HISTORY: As mentioned above. PAST SURGICAL HISTORY: Right shoulder arthroscopy, biopsy of prostate, colonoscopy, EGDs, EGD with endoscopic ultrasound, EGD with biopsy, appendectomy, right and left cataract surgery, tonsillectomy, adenoidectomy, repair of ruptured rotator cuff. MEDICATIONS: The patient is on amlodipine 10 mg p.o. daily, aspirin 81 mg p.o. a.m., atorvastatin 40 mg p.o. p.m., atorvastatin 40 mg p.o. a.m., Coreg 3.125 mg p.o. b.i.d., finasteride 5 mg p.o. a.m., gabapentin 300 mg p.o. b.i.d., Jardiance 25 mg p.o. a.m., Lantus 28 units subcutaneous p.m., losartan 100 mg p.o. a.m., magnesium 250 mg p.o. daily, metformin 1000 mg p.o. b.i.d., mirtazapine 30 mg p.o. at bedtime p.r.n., multivitamin 1 tablet p.o. daily, Protonix 40 mg p.o. a.m., Flomax 0.4 mg p.o. a.m., Xarelto 20 mg p.o. a.m. FAMILY HISTORY: Significant for sister of brain cancer. Father had diabetes, elevated cholesterol, stroke. Mother had stroke and dementia. SOCIAL HISTORY: Lives with his . Former smoker, quit in 1969, smoked half pack a day for 5 years. Alcohol occasional. No drug use. REVIEW OF SYMPTOMS: As per HPI. Rest of review of systems negative. PHYSICAL EXAMINATION: GENERAL: The patient is moderate built, not in acute distress. VITAL SIGNS: Temperature 37, pulse 90, respiratory rate 20, blood pressure 161/90, oxygen 97% on 2 liters. HEENT: Pupils equal, round, and reactive to light. Oral mucosa moist. NECK: No JVD, no neck masses. CARDIOVASCULAR: S1, S2, regular rate and rhythm, no murmur, no gallop. RESPIRATORY SYSTEM: Normal AP diameter. No accessory muscle use. No wheezing, no crackles. ABDOMEN: Soft, bowel sounds present, nontender. No distention. CENTRAL NERVOUS SYSTEM: Alert and oriented x 3. Cranial nerves II-XII grossly intact. Speech is clear, no facial droop seen. Power 5/5 in all extremities. Sensation is intact. Coordination of movements normal. Position sense intact. EXTREMITIES: No edema, no erythema. LABORATORY DATA: WBC 9.9, hemoglobin 14.2, hematocrit 43.2, platelets 220. Sodium 137, potassium 3.9, chloride 105, bicarbonate 23, BUN 28, creatinine 1.1, serum glucose 259, calcium 8.9, total bilirubin 0.6, AST 19, ALT 26, alkaline phosphatase 88. Troponin I less than 0.015. IMAGING: CT of the head, 1.4 cm rounded area of decreased density in the medial right temporal lobe, possibly subacute infarct. CT of the head and neck, unremarkable. CTA of the neck, no acute findings. EKG: Sinus tachycardia, rate of 103, no significant change was found. ASSESSMENT AND PLAN: This is a 69-year-old male who presents with seizures and also found to have CVA. 1. Seizures mostly likely secondary to right temporal lobe CVA, initially came to the ER with dizziness and weakness, thought to be from COVID vaccine reaction. At home at night he had tonic clonic seizures.received a dose of Keppra. We will place him on IV Ativan p.r.n. for breakthrough seizures and closely monitor in the tele floor. Consult neurology in a.m. for further recommendations. We will order EEG. 2. CVA. CAT scan showing subacute right temporal lobe CVA, could be causing seizures. We will do full stroke workup with MRI, echo, PT, OT, speech evaluation, neurology evaluation in a.m. Closely monitor in tele floor. The patient already on Xarelto and aspirin and high-dose statin. We will allow for permissive hypertension. 3. Diabetes. Hold his Jardiance and metformin. Continue Lantus plus insulin sliding scale. Follow HbA1c. We will hold his metformin. Follow the blood sugars. 4. History of hypertension. Continue his Coreg, losartan, amlodipine. We will monitor the blood pressure and allow for permissive hypertension for now.I f needed will hold BP meds. 5. Hyperlipidemia. Continue statin. Follow lipid profile. 6. BPH. Continue finasteride and Flomax. 7. Gastroesophageal reflux disease. Continue Protonix. 8. History of deep venous thrombosis and pulmonary embolism. Continue Xarelto. 9. Deep venous thrombosis prophylaxis, on Xarelto. DISPOSITION: Closely monitor in tele floor. Level 1 full code. PT and OT prior to discharge. Social service to help with discharge planning. [facility]ERNapoleon
--- NOTE | 2020-06-09 07:20 | CT Scan Report ---
HEAD CT NONCONTRAST CT DOSE: HISTORY: seizure TECHNIQUE: Multiaxial CT images of the head were performed without the use of intravenous contrast. A utomated exposure control was utilized for this study. A dose lowering technique was utilized adheri ng to the principles of ALARA. Comparison: 06/18/2018. Findings: The paranasal sinuses and mastoid air cells are clear. The calvarium and skull base are int act. There is 1.4 cm round hypodense focus within the medial right temporal lobe on image 11. This is new from the prior study. Ventricles and sulci are within normal limits. Mild microvascular ischemic changes are again noted. Impression: There is a new 1.4 cm round hypodense focus within the medial right temporal lobe. This could represe nt a mass. Follow-up brain MRI recommended for further evaluation. ACT 112: Negative or not required by law. Electronically signed by: Jefferson Hernandez M.D. 06/09/2020 7:18 AM
--- NOTE | 2020-06-09 07:27 | CT Scan Report ---
CT ANGIOGRAPHY OF THE NECK WITH CONTRAST CLINICAL HISTORY: Seizure. COMPARISON STUDY: Carotid ultrasound June 19, 2018. Technique: CT angiography of the carotid and vertebral arteries was obtained using ZayoraAlfred 320 IV and 3D reconstruction on an independent workstation. NASCET criteria was utilized. Automated exposure c ontrol was utilized for the study. A dose lowering technique was utilized adhering to the principles of ALARA. CT DOSE: 1257.07 mGy.cm Findings: Lung apices are clear. There is no cervical lymphadenopathy. No acute fracture or suspiciou s lesion within the cervical spine is noted. There is no significant stenosis within the bilateral co mmon carotid, cervical internal carotid or vertebral arteries. There is moderate calcified plaque at the origin of the left vertebral artery without significant stenosis. There is no dissection within t he major vessels of the neck. There is mild atherosclerotic plaque within the proximal right internal carotid artery. CTA of the head will be reported separately. A 1.6 cm hypodense lesion within the me dial right temporal lobe is better depicted on that exam. IMPRESSION: 1. No stenosis or dissection within the major vessels of the neck. 2. 1.6 cm hypodense medial right temporal lobe lesion, better depicted on the head CT and CTA of the head. Please see those reports for further description. ACT 112: Negative or not required by law. Electronically signed by: Edmundo Lara M.D. 06/09/2020 7:26 AM
--- NOTE | 2020-06-09 07:32 | CT Scan Report ---
CTA ANGIOGRAPHY OF THE HEAD CLINICAL HISTORY: Seizure. COMPARISON STUDY: MRI of the brain June 18, 2018. TECHNIQUE: Helical axial images of the head were obtained following uneventful intravenous administr ation of 115 cc of Optiray 320. Sagittal and coronal reconstructions were viewed as well as maximal i ntensity projections on an independent 3-D workstation. Automated exposure control was utilized for the study. A dose lowering technique was utilized adhering to the principles of ALARA. FINDINGS: The bilateral M1, M2, A1 and A2 segments are patent. There is no central vessel occlusion. No intracranial aneurysm or dissection is noted. There is mild plaque within the bilateral cavernous carotids without stenosis. Note is made of a 1.6 cm hypodense medial right temporal lobe lesion with suspected ring enhancement. No additional intracranial lesions are present. Ventricular system is nor mal. Basilar cisterns are patent. There are no extra-axial collections. IMPRESSION: 1. No central vessel occlusion. No intracranial aneurysm. 2. 1.6 cm medial right temporal lobe lesion with suspected ring enhancement. This favors an mass. Fol low-up MRI with and without contrast is recommended. ACT 112: Negative or not required by law. Electronically signed by: Edmundo Lara M.D. 06/09/2020 7:30 AM
--- NOTE | 2020-06-09 07:54 | Magnetic Resonance Report ---
MRI OF THE BRAIN WITHOUT AND WITH IV CONTRAST CLINICAL HISTORY: Seizure. COMPARISON STUDY: MRI of the brain June 18, 2018. Head CT and CTA of the head June 08, 2020. TECHNIQUE: Utilizing a 1.5 Anum magnet and dedicated coil, multiplanar, multiecho imaging of the br ain was performed pre and postcontrast administration. IV administration of 8.5 mL of Gadavist contr ast was uneventful. Thin cut T1 post contrast imaging was performed. FINDINGS: There are no foci of restricted diffusion to suggest acute infarct. Note is made of a ring enhancing 1.6 x 1.4 cm medial right temporal lobe lesion. This has no significant mass effect. There is no significant associated vasogenic edema. No additional intracranial lesions are identified. The postcontrast images are moderately compromised by motion artifact. Ventricular system is normal. Basa l cisterns are patent. There are no extra axial collections. White matter T2 hyperintense foci sugges t moderate small vessel disease. Calvarial signal is normal. Orbits are unremarkable. Flow-voids for the major intracranial vessels are present. IMPRESSION: 1. 1.6 x 1.4 cm ring-enhancing medial right temporal lobe lesion. This is highly suggestive of a neop lastic process and may reflect a primary neoplasm such as glioma or a solitary metastasis. Neurosurgi stephen consultation is recommended. 2. No additional intracranial lesions identified although postcontrast images are compromised by laura on artifact. ACT 112: Positive. There are findings on this exam that require communication between the performing entity and the patient following Patient Test Result Information Act ([place] Act 112) guidelines. Electronically signed by: Edmundo Lara M.D. 06/09/2020 7:52 AM
[2020-06-09] MEDS: ASPIRIN 81 MG ECTAB PO SCH (08:25)
[2020-06-09] MEDS: GABAPENTIN 300 MG CAP PO SCH ×3 (08:26→21:09)
[2020-06-09] MEDS: amLODIPine BESYLATE 5 MG TAB PO SCH (08:26)
[2020-06-09] MEDS: carvediloL 3.125 MG TAB PO SCH ×2 (08:27→21:09)
[2020-06-09] MEDS: ATORVASTATIN 40 MG TAB PO SCH (08:27)
[2020-06-09] MEDS: LOSARTAN POTASSIUM 50 MG TAB PO SCH (08:28)
[2020-06-09] MEDS: MULTIVITAMIN TAB PO SCH (08:28)
[2020-06-09] MEDS: TAMSULOSIN HCL 0.4 MG CAP PO SCH (08:29)
[2020-06-09] MEDS: PANTOprazole 40 MG TAB PO SCH (08:29)
[2020-06-09] MEDS: MAGNESIUM OXIDE 400 MG TAB PO SCH (08:29)
[2020-06-09] MEDS: RIVAROXABAN 20 MG TAB PO SCH (08:29)
[2020-06-09] MEDS: FINASTERIDE 5 MG TAB PO SCH (08:29)
--- NOTE | 2020-06-09 08:55 | Emergency Department Note ---
Impression & Plan Seizure, CVA (cerebral vascular accident) ED Provider Note NAME: JADE VALENCIA AGE: 69 SEX: M ARRIVES VIA: Ambulance INFORMANT: [Patient][, ] ED PROVIDER(S): Ivonne Jon DO CHIEF COMPLAINT: [] PLAN: Disposition: [] Condition: [Good] Outpatient prescription management: [none] Referral: [] MEDICAL DECISION MAKING: [Provider summary] Triage Nursing notes reviewed and agree them. [Additional history obtained from] [] [Prior medical records reviewed] [] Vital Signs: reviewed and remarkable for [no significant abnormalities] Differential diagnosis: [] ER treatment provided: [] Diagnostics interpreted by me: ECG: [none] Cardiac Monitoring: [none] Laboratory studies: [See below] [] Imaging studies: [See below] [] Consultation(s): [none] HPI: 69/M arrives for evaluation of []. [] ROS: See above HPI for pertinent positives & negatives. A total of [10] systems reviewed and were otherwise negative. PAST MEDICAL HISTORY:[See Below] PAST SURGICAL HISTORY:[See Below] FAMILY HISTORY:[See Below] SOCIAL HISTORY:[See Below] HOME MEDICATIONS:[See Below] ALLERGIES:[See Below] VITALS:[See Below] PHYSICAL EXAMINATION: [] ED COURSE: Times/Reassessments: [] Procedures: [none] PDMP:[reviewed and no issues] [Critical Care:] [None] Ivonne Jon DO Past Med/Surg History Medical History (Updated 06/09/20 @ 00:58 by Ivonne Jon DO) Anxiety Barretts esophagus BPH (benign prostatic hyperplasia) DM type 2 (diabetes mellitus, type 2) Dyslipidemia History of agent [place] exposure History of DVT (deep vein thrombosis) L LEG 1.5 YR AGO History of pulmonary embolism BILATERAL - 1.5 YR AGO Hypertension SOB (shortness of breath) on exertion Surgical History H/O shoulder surgery R X 2 - MOST RECENT: DEC 2018 History of anesthesia reaction REMOTE HX - WITH ONE SURGERY (PT UNSURE WHAT SURGERY) - SLEPT FOR 2 DAYS AFTER, NO -RE-OCCURENCE History of appendectomy History of cataract surgery LEFT History of colonoscopy History of endoscopy History of foot surgery L History of tonsillectomy and adenoidectomy Family History Father Diabetes Sister Cancer Social History Smoking Status: Never smoker Second Hand Exposure: No; Do You Dip or Chew Tobacco: No; Hx Alcohol Use: Yes Alcohol type: beer Hx Substance Use: No Preferred Language: Barbadian Communication Ability: Effective Certifed Refrigeration Operator Required: No Beliefs That Will Affect Care: None marital status: Current Living Situation: Family Other Information That Helps Us Care for You: No Feels Safe at Home: Yes Safety Concerns: Feels Safe At This Time Assistive Devices: Glasses and Hearing Aid - Bilateral Assistive Devices Comment: Hearing Aides at home as well as glasses Allergies Allergies Allergy/AdvReac Type Severity Reaction Status Date / Time erythromycin base Allergy Unknown PT NOT SURE Verified 06/08/20 16:28 Home Meds Home Medications Medication Instructions Recorded Confirmed Jardiance 25 mg PO QAM 06/18/18 06/09/20 Lantus Solostar U-100 Insulin 28 unit SUBCUT QPM 06/18/18 06/09/20 Xarelto 20 mg PO QAM 06/18/18 06/09/20 amlodipine 10 mg PO QAM 06/18/18 06/09/20 aspirin 81 mg PO QAM 06/18/18 06/09/20 atorvastatin 40 mg PO QAM 06/18/18 06/09/20 finasteride 5 mg PO QAM 06/18/18 06/09/20 losartan 100 mg PO QAM 06/18/18 06/09/20 pantoprazole 40 mg PO QAM 06/18/18 06/09/20 tamsulosin 0.4 mg PO QAM 06/18/18 06/09/20 multivitamin 1 tab PO DAILY 08/21/19 06/09/20 carvedilol 3.125 mg PO BID 06/09/20 06/09/20 gabapentin 300 mg PO TID 06/09/20 06/09/20 magnesium 250 mg PO DAILY 06/09/20 06/09/20 metformin 1,000 mg PO BID 06/09/20 06/09/20 mirtazapine 30 mg PO HS PRN 06/09/20 06/09/20 Results & Data (ED) Vital Signs Vital Signs - 24 hr 06/08/20 23:03 06/08/20 23:10 06/08/20 23:30 Temperature 37.0 C Temperature Source Oral Pulse Rate 101 H 107 H 98 H Pulse Rate [Apical] Pulse Rate from SpO2 Sensor 101 H 98 H Pulse Rhythm Regular Pulse Rhythm [Apical] Respiratory Rate 17 20 19 Respiratory Effort / Characteristics Non-Labored Respiratory Depth Normal Respiratory Pattern Regular Blood Pressure 177/88 H 177/88 H 158/81 H Blood Pressure [Right Arm] Blood Pressure Mean 117 117 106 Blood Pressure Mean [Right Arm] Blood Pressure Position Lying Pulse Oximetry 96 93 94 Oxygen Delivery Method Nasal Cannula Oxygen Flow Rate 4 Sepsis Recent Fever Within 48 Hours No Sepsis New/Unexplained Change in Mental Status N/A Sepsis Action Taken by Nursing No Action Required 06/09/20 00:00 06/09/20 00:30 06/09/20 01:00 Temperature Temperature Source Pulse Rate 93 H 92 H 94 H Pulse Rate [Apical] Pulse Rate from SpO2 Sensor 93 H Pulse Rhythm Pulse Rhythm [Apical] Respiratory Rate 13 12 19 Respiratory Effort / Characteristics Respiratory Depth Respiratory Pattern Blood Pressure 159/85 H 148/77 H 143/78 H Blood Pressure [Right Arm] Blood Pressure Mean 109 100 99 Blood Pressure Mean [Right Arm] Blood Pressure Position Pulse Oximetry 96 Oxygen Delivery Method Oxygen Flow Rate Sepsis Recent Fever Within 48 Hours Sepsis New/Unexplained Change in Mental Status Sepsis Action Taken by Nursing 06/09/20 01:26 06/09/20 01:30 06/09/20 02:00 Temperature Temperature Source Pulse Rate 88 90 Pulse Rate [Apical] 90 Pulse Rate from SpO2 Sensor Pulse Rhythm Pulse Rhythm [Apical] Regular Respiratory Rate 17 19 13 Respiratory Effort / Characteristics Respiratory Depth Normal Respiratory Pattern Blood Pressure 126/67 110/57 L Blood Pressure [Right Arm] 143/78 H Blood Pressure Mean 86 74 Blood Pressure Mean [Right Arm] 99 Blood Pressure Position Pulse Oximetry 98 Oxygen Delivery Method Nasal Cannula Oxygen Flow Rate 2 Sepsis Recent Fever Within 48 Hours Sepsis New/Unexplained Change in Mental Status Sepsis Action Taken by Nursing 06/09/20 02:31 Temperature Temperature Source Pulse Rate 90 Pulse Rate [Apical] Pulse Rate from SpO2 Sensor Pulse Rhythm Pulse Rhythm [Apical] Respiratory Rate 20 Respiratory Effort / Characteristics Respiratory Depth Respiratory Pattern Blood Pressure 161/90 H Blood Pressure [Right Arm] Blood Pressure Mean 113 Blood Pressure Mean [Right Arm] Blood Pressure Position Pulse Oximetry 97 Oxygen Delivery Method Oxygen Flow Rate Sepsis Recent Fever Within 48 Hours Sepsis New/Unexplained Change in Mental Status Sepsis Action Taken by Nursing Laboratory Data Lab Results 06/08/20 Range/Units 23:22 POC Glucose 259 H (70-99) mg/dl Administered Medications Amlodipine Besylate (Amlodipine Besylate 5 Mg Tab) 10 mg PO QAM [facility] Stop: 07/09/20 08:59 Last Admin: 06/09/20 08:26 Dose: 10 mg Documented by: [id number] Aspirin (Aspirin 81 Mg Ectab) 81 mg PO QAM [facility] Stop: 07/09/20 08:59 Last Admin: 06/09/20 08:25 Dose: 81 mg Documented by: [id number] Atorvastatin Calcium (Atorvastatin 40 Mg Tab) 40 mg PO QAM [facility] Stop: 07/09/20 08:59 Last Admin: 06/09/20 08:27 Dose: 40 mg Documented by: [id number] Carvedilol (Carvedilol 3.125 Mg Tab) 3.125 mg PO BID [facility] Stop: 07/09/20 08:59 Last Admin: 06/09/20 08:27 Dose: 3.125 mg Documented by: [id number] Finasteride (Finasteride 5 Mg Tab) 5 mg PO QAM [facility] Stop: 07/09/20 08:59 Last Admin: 06/09/20 08:29 Dose: 5 mg Documented by: [id number] Gabapentin (Gabapentin 300 Mg Cap) 300 mg PO TID [facility] Stop: 07/09/20 08:59 Last Admin: 06/09/20 08:26 Dose: 300 mg Documented by: [id number] Sodium Chloride (Nss 1000ml) 1,000 mls @ 80 mls/hr IV .[id number] [facility] Stop: 06/09/20 21:00 Last Admin: 06/09/20 04:54 Dose: 80 mls/hr Documented by: [id number] Losartan Potassium (Losartan Potassium 50 Mg Tab) 100 mg PO QAM [facility] Stop: 07/09/20 08:59 Last Admin: 06/09/20 08:28 Dose: 100 mg Documented by: [id number] Magnesium Oxide (Magnesium Oxide 400 Mg Tab) 400 mg PO DAILY [facility] Stop: 07/09/20 08:59 Last Admin: 06/09/20 08:29 Dose: 400 mg Documented by: [id number] Multivitamins (Multivitamin Tab) 1 tab PO DAILY [facility] Stop: 07/09/20 08:59 Last Admin: 06/09/20 08:28 Dose: 1 tab Documented by: [id number] Pantoprazole Sodium (Pantoprazole 40 Mg Tab) 40 mg PO [facility] Stop: 07/09/20 08:59 Last Admin: 06/09/20 08:29 Dose: 40 mg Documented by: [id number] Rivaroxaban (Rivaroxaban 20 Mg Tab) 20 mg PO [facility] Stop: 07/09/20 08:59 Last Admin: 06/09/20 08:29 Dose: 20 mg Documented by: [id number] Tamsulosin HCl (Tamsulosin Hcl 0.4 Mg Cap) 0.4 mg PO [facility] Stop: 07/09/20 08:59 Last Admin: 06/09/20 08:29 Dose: 0.4 mg Documented by: [id number] Discontinued Medications Levetiracetam 1,000 mg/ Sodium (Chloride) 110 mls @ 440 mls/hr IV NOW STA Stop: 06/09/20 00:46 Last Infusion: 06/09/20 01:25 Dose: 0 mls/hr Documented by: [id number] Admin: 06/09/20 00:44 Dose: 440 mls/hr Documented by: [id number] Lorazepam (Ativan) 0.5 mg in 1 mls @ 1 mls/min IV NOW STA Stop: 06/09/20 05:39 Last Admin: 06/09/20 06:02 Dose: 1 mls/min Documented by: [id number] Ioversol (Optiray 320 125ml) 125 ml IV ONCE ONE Stop: 06/08/20 23:41 Last Admin: 06/08/20 23:40 Dose: 115 ml Documented by: [id number] Discharge Plan Visit Data Chief Complaint: Seizure Stated Complaint: POSSIBLE SEIURE ED Provider: Ivonne Jon Discharge Problem: Seizure, CVA (cerebral vascular accident) Patient Disposition: Admitted As Inpatient Discharge Instructions Interventions: ED Discharge Assessment Last Done: 06/09/20 04:11 Discharge Problem: CVA (cerebral vascular accident) Qualifiers: CVA mechanism: unspecified Qualified Code(s): I63.9 - Cerebral infarction, unspecified
[2020-06-09] MEDS: INSULIN ASPART 100 UNITS/ML 3 ML PEN SC SCH ×4 (09:01→21:08)
[2020-06-09 09:07] LABS: Hemoglobin 14.3 g/dL (14.0-18.0); Immature Granulocytes # (auto) 0.04 K/uL (0.00-0.02); Immature Granulocytes % (auto) 0.4 %; Lymphocytes # (auto) 1.39 K/uL (1.2-3.4); Lymphocytes % (auto) 13.2 %; Mean Corpuscular Hemoglobin 31.4 pg (25-34); Mean Corpuscular Hgb Conc 34.9 g/dL (32-36); Mean Corpuscular Volume 90.1 fL (80-100); Mean Platelet Volume 10.6 fL (7.4-10.4); Monocytes # (auto) 0.85 K/uL (0.11-0.59); Neutrophils # (auto) 8.29 K/uL (1.4-6.5); Neutrophils % (auto) 78.4 %; Platelet Count 230 K/uL (130-400); RDW Coefficient of Variation 13.5 % (11.5-14.5); RDW Standard Deviation 44.4 fL (36.4-46.3); Red Blood Count 4.55 M/uL (4.7-6.1); White Blood Count 10.57 K/uL (4.8-10.8)
[2020-06-09 09:32] LABS: BUN Creatinine Ratio 22.4 (10-20); Calcium 8.1 mg/dl (8.5-10.1); Creatinine Clr Calc Pharmacy 65.8 ml/min; Est GFR (African American) 79.6; Est GFR (Non-African American) 68.7; Potassium 3.8 mmol/L (3.5-5.1)
[2020-06-09 09:33] LABS: Estimated Average Glucose 206 mg/dl; Hemoglobin A1C 8.8 % (4.5-5.6)
--- NOTE | 2020-06-09 10:50 | Neurology Consultation ---
Date of Consultation June 09, 2020 Assessment & Plan (1) Seizure: 1. continue Keppra 500 mg q 12 hours 2. no driving for 6 months from last seizure date, no heights, no bathing or swimming alone (2) Brain lesion: 1. would order chest/abdomen/pelvis - appears to be a met 2. Supervising Physician Co-Signing Physician Notes I have seen and discussed above patient with Dr Joe Avila History of Present Illness Reason for Consultation: CVA /seizure Requesting Physician: Jana Michaels MD Attending Physician: Jana Michaels MD History of Present Illness Denis is a 69 year old male with PMH - DM2, HLD pulmonary hypertension, HTN, BPH, lumbar DDD, urinary retention, PE and DVT, on Xarelto, primary insomnia, lives with his , presented to [facility] ED for seizure. He received second dose of Pfizer COVID shot last Tuesday. On 06/08/2020 morning he came to the ER because of dizziness and weakness, thought to be from COVID vaccine reaction. He was feeling fine and discharged home. He then had a clonic seizure witnessed by his for a full 1 minute and was unresponsive, had labored breathing. When the EMS arrived he could open his eyes and after a much longer time mental status returned close to baseline but was still confused. He was loaded with Keppra in the ER and workup showed 1.4 cm density in the medial right temporal lobe thought to be possibly subacute infarct. Allergies Allergy/AdvReac Type Severity Reaction Status Date / Time erythromycin base Allergy Unknown PT NOT SURE Verified 06/08/20 16:28 Home Medications Medication Instructions Recorded Confirmed Type Jardiance 25 mg PO QAM 06/18/18 06/09/20 History Lantus Solostar U-100 Insulin 28 unit SUBCUT QPM 06/18/18 06/09/20 History Xarelto 20 mg PO QAM 06/18/18 06/09/20 History amlodipine 10 mg PO QAM 06/18/18 06/09/20 History aspirin 81 mg PO QAM 06/18/18 06/09/20 History atorvastatin 40 mg PO QAM 06/18/18 06/09/20 History finasteride 5 mg PO QAM 06/18/18 06/09/20 History losartan 100 mg PO QAM 06/18/18 06/09/20 History pantoprazole 40 mg PO QAM 06/18/18 06/09/20 History tamsulosin 0.4 mg PO QAM 06/18/18 06/09/20 History multivitamin 1 tab PO DAILY 08/21/19 06/09/20 History carvedilol 3.125 mg PO BID 06/09/20 06/09/20 History gabapentin 300 mg PO TID 06/09/20 06/09/20 History magnesium 250 mg PO DAILY 06/09/20 06/09/20 History metformin 1,000 mg PO BID 06/09/20 06/09/20 History mirtazapine 30 mg PO HS PRN 06/09/20 06/09/20 History Patient History Medical History (Updated 06/09/20 @ 12:12 by Jana Michaels MD) Anxiety Barretts esophagus BPH (benign prostatic hyperplasia) DM type 2 (diabetes mellitus, type 2) Dyslipidemia History of agent [place] exposure History of DVT (deep vein thrombosis) L LEG 1.5 YR AGO History of pulmonary embolism BILATERAL - 1.5 YR AGO Hypertension SOB (shortness of breath) on exertion Surgical History H/O shoulder surgery R X 2 - MOST RECENT: DEC 2018 History of anesthesia reaction REMOTE HX - WITH ONE SURGERY (PT UNSURE WHAT SURGERY) - SLEPT FOR 2 DAYS AFTER, NO -RE-OCCURENCE History of appendectomy History of cataract surgery LEFT History of colonoscopy History of endoscopy History of foot surgery L History of tonsillectomy and adenoidectomy Family History Father Diabetes Sister Cancer Social History Smoking Status: Never smoker Second Hand Exposure: No; Do You Dip or Chew Tobacco: No; Hx Alcohol Use: Yes Alcohol type: beer Hx Substance Use: No Preferred Language: Romansh Communication Ability: Effective Hydrographical Technical Officer Required: No Beliefs That Will Affect Care: None marital status: Current Living Situation: Family Other Information That Helps Us Care for You: No Feels Safe at Home: Yes Safety Concerns: Feels Safe At This Time Assistive Devices: None Assistive Devices Comment: Hearing Aides at home as well as glasses Results & Data ([facility]) Vital Signs (Past 12 Hours) Vital Signs Temp Pulse Pulse Resp BP BP Pulse Ox 06/09/20 09:48 83 06/09/20 09:43 36.6 C 83 18 161/83 H 94 06/09/20 09:42 06/09/20 08:00 36.6 C 83 18 161/85 H 94 06/09/20 04:47 36.7 C 94 H 18 141/69 H 94 06/09/20 03:55 92 H 19 136/79 96 06/09/20 02:31 90 20 161/90 H 97 06/09/20 02:00 90 13 110/57 L 06/09/20 01:30 88 19 126/67 06/09/20 01:26 90 17 143/78 H 98 06/09/20 01:00 94 H 19 143/78 H 06/09/20 00:30 92 H 12 148/77 H 06/09/20 00:00 93 H 13 159/85 H 96 06/08/20 23:30 98 H 19 158/81 H 94 06/08/20 23:10 37.0 C 107 H 20 177/88 H 93 06/08/20 23:03 101 H 17 177/88 H 96 Pulse Ox 06/09/20 09:48 06/09/20 09:43 06/09/20 09:42 93 06/09/20 08:00 06/09/20 04:47 06/09/20 03:55 06/09/20 02:31 06/09/20 02:00 06/09/20 01:30 06/09/20 01:26 06/09/20 01:00 06/09/20 00:30 06/09/20 00:00 06/08/20 23:30 06/08/20 23:10 06/08/20 23:03
--- NOTE | 2020-06-09 10:57 | Hospitalist Progress Note ---
Date of Service June 09, 2020 Assessment & Plan (1) Brain lesion: (2) Seizure: Seizure episode Reported to have been witnessed by Continue Robert CT brain showing right temporal lobe lesion MRI showing 1.6 x 1.4 ring-enhancing medial right temporal lobe lesion suggestive of a neoplastic process We will appreciate neurology evaluation and recommendations Get CT chest abdomen and pelvis with contrast for malignancy work-up to look for other mass/metastasis (3) DM type 2 (diabetes mellitus, type 2): Hemoglobin A1c is 8.8 Hold home oral antidiabetic's Manage with insulin per protocol while inpatient (4) Hypertension: Continue Coreg, losartan and amlodipine Monitor blood pressure (5) History of pulmonary embolism: History of DVT and PE Continue Xarelto BPH Continue finasteride and Flomax Admission and Anticipated Discharge Date Admission Date: June 09, 2020 Subjective Patient is seen and examined this morning Patient was slightly drowsy. Per RN, this is due to arousable patient was to to be able to get MRI this morning. Patient able to answer questions appropriately. Oriented to person place and time Denied any headache, dizziness, blurred vision Denies any focal weakness Denies dysphagia Denies abdominal pain, nausea, vomiting, diarrhea Denies dysuria, frequency, urgency No fevers or chills Physical Exam Constitutional: + well hydrated; no acute distress Eyes: PERRL, conjunctivae normal, anicteric sclerae ENMT: external ear and nose normal, oropharynx normal Respiratory: normal respiratory effort, lungs clear to auscultation Cardiovascular: Rate/Rhythm: regular rate and regular rhythm S1-S2 no pedal edema Gastrointestinal (Abdomen): normal bowel sounds, soft, nontender, no hepatosplenomegaly Musculoskeletal: no cyanosis or clubbing, extremities motor strength 5/5 Neurologic: PERRL, EOMI, accommodation nl, no face palsy, no dysarthria Slightly drowsy Power is normal in all extremities. No focal deficits noted Psychiatric: Slightly drowsy but answers questions appropriately Oriented to person, place and time Results & Data Results & Data ([facility]) Vital Signs (Past 12 Hours) Vital Signs Temp Pulse Pulse Resp BP BP Pulse Ox 06/09/20 09:48 83 06/09/20 09:43 36.6 C 83 18 161/83 H 94 06/09/20 09:42 06/09/20 08:00 36.6 C 83 18 161/85 H 94 06/09/20 04:47 36.7 C 94 H 18 141/69 H 94 06/09/20 03:55 92 H 19 136/79 96 06/09/20 02:31 90 20 161/90 H 97 06/09/20 02:00 90 13 110/57 L 06/09/20 01:30 88 19 126/67 06/09/20 01:26 90 17 143/78 H 98 06/09/20 01:00 94 H 19 143/78 H 06/09/20 00:30 92 H 12 148/77 H 06/09/20 00:00 93 H 13 159/85 H 96 06/08/20 23:30 98 H 19 158/81 H 94 06/08/20 23:10 37.0 C 107 H 20 177/88 H 93 06/08/20 23:03 101 H 17 177/88 H 96 Pulse Ox 06/09/20 09:48 06/09/20 09:43 06/09/20 09:42 93 06/09/20 08:00 06/09/20 04:47 06/09/20 03:55 06/09/20 02:31 06/09/20 02:00 06/09/20 01:30 06/09/20 01:26 06/09/20 01:00 06/09/20 00:30 06/09/20 00:00 06/08/20 23:30 06/08/20 23:10 06/08/20 23:03 Laboratory Results Laboratory Results - last 24 hr 06/08/20 06/09/20 06/09/20 23:22 00:11 08:20 WBC RBC Hgb POC Hgb 13.9 L Hct POC Hct 41 L MCV MCH MCHC RDW Std Deviation RDW Coeff of Diandra Plt Count MPV Immature Gran % (Auto) Neut % (Auto) Lymph % (Auto) Swisher % (Auto) Eos % (Auto) Baso % (Auto) Neut # (Auto) Lymph # (Auto) Swisher # (Auto) Eos # (Auto) Baso # (Auto) Immature Gran # (Auto) POC Sodium 134 L Sodium POC Potassium 4.0 Potassium POC Chloride 102 Chloride Carbon Dioxide POC Total CO2 23 L Anion Gap POC Anion Gap 14.0 L POC BUN 25 H BUN Creatinine POC Creatinine 0.9 Est Cr Clr Drug Dosing Est GFR ( Amer) Est GFR (Non-Af Amer) BUN/Creatinine Ratio Glucose POC Glucose 259 H 128 H POC Glucose (other) 205 H Estimat Average Glucose Hemoglobin A1c Calcium POC Ioniz Calcium Kolton 1.10 L Triglycerides Cholesterol LDL Cholesterol, Calc VLDL Cholesterol, Calc HDL Cholesterol Cholesterol/HDL Ratio 06/09/20 06/09/20 06/09/20 08:41 08:41 08:41 WBC 10.57 RBC 4.55 L Hgb 14.3 POC Hgb Hct 41.0 L POC Hct MCV 90.1 MCH 31.4 MCHC 34.9 RDW Std Deviation 44.4 RDW Coeff of Diandra 13.5 Plt Count 230 MPV 10.6 H Immature Gran % (Auto) 0.4 Neut % (Auto) 78.4 Lymph % (Auto) 13.2 Swisher % (Auto) 8.0 Eos % (Auto) 0.0 Baso % (Auto) 0.0 Neut # (Auto) 8.29 H Lymph # (Auto) 1.39 Swisher # (Auto) 0.85 H Eos # (Auto) 0.00 Baso # (Auto) 0.00 Immature Gran # (Auto) 0.04 H POC Sodium Sodium 138 POC Potassium Potassium 3.8 POC Chloride Chloride 105 Carbon Dioxide 26 POC Total CO2 Anion Gap 7.0 POC Anion Gap POC BUN BUN 24 H Creatinine 1.08 POC Creatinine Est Cr Clr Drug Dosing 65.8 Est GFR ( Amer) 79.6 Est GFR (Non-Af Amer) 68.7 BUN/Creatinine Ratio 22.4 H Glucose 141 H POC Glucose POC Glucose (other) Estimat Average Glucose 206 Hemoglobin A1c 8.8 H Calcium 8.1 L POC Ioniz Calcium Kolton Triglycerides 100 Cholesterol 197 LDL Cholesterol, Calc 109 VLDL Cholesterol, Calc 20 HDL Cholesterol 68 Cholesterol/HDL Ratio 3 06/09/20 11:16 WBC RBC Hgb POC Hgb Hct POC Hct MCV MCH MCHC RDW Std Deviation RDW Coeff of Diandra Plt Count MPV Immature Gran % (Auto) Neut % (Auto) Lymph % (Auto) Swisher % (Auto) Eos % (Auto) Baso % (Auto) Neut # (Auto) Lymph # (Auto) Swisher # (Auto) Eos # (Auto) Baso # (Auto) Immature Gran # (Auto) POC Sodium Sodium POC Potassium Potassium POC Chloride Chloride Carbon Dioxide POC Total CO2 Anion Gap POC Anion Gap POC BUN BUN Creatinine POC Creatinine Est Cr Clr Drug Dosing Est GFR ( Amer) Est GFR (Non-Af Amer) BUN/Creatinine Ratio Glucose POC Glucose 150 H POC Glucose (other) Estimat Average Glucose Hemoglobin A1c Calcium POC Ioniz Calcium Kolton Triglycerides Cholesterol LDL Cholesterol, Calc VLDL Cholesterol, Calc HDL Cholesterol Cholesterol/HDL Ratio Diagnostic Findings MRI brain There are no foci of restricted diffusion to suggest acute infarct. Note is made of a ring enhancing 1.6 x 1.4 cm medial right temporal lobe lesion. This has no significant mass effect. There is no significant associated vasogenic edema. No additional intracranial lesions are identified. The postcontrast images are moderately compromised by motion artifact. Ventricular system is normal. Basal cisterns are patent. There are no extra axial collections. White matter T2 hyperintense foci suggest moderate small vessel disease. Calvarial signal is normal. Orbits are unremarkable. Flow-voids for the major intracranial vessels are present. IMPRESSION: 1. 1.6 x 1.4 cm ring-enhancing medial right temporal lobe lesion. This is highly suggestive of a neoplastic process and may reflect a primary neoplasm such as glioma or a solitary metastasis. Neurosurgical consultation is recommended. 2. No additional intracranial lesions identified although postcontrast images are compromised by motion artifact.
[2020-06-09 11:23] LABS: iSTAT Creatinine 0.9 mg/dl (0.6-1.3); iSTAT Hemoglobin 13.9 g/dl (14.0-18.0); iSTAT Ionized Calcium 1.1 mmol/l (1.12-1.32)
--- NOTE | 2020-06-09 12:42 | Consultation Report ---
DATE OF CONSULTATION: 06/09/2020 NEUROLOGY CONSULTATION NOTE CHIEF COMPLAINT: New-onset seizure. HISTORY OF PRESENT ILLNESS: A 69-year-old male with multiple medical comorbidities including type 2 diabetes, pulmonary hypertension, hyperlipidemia, hypertension and history of pulmonary embolism, on Xarelto, admitted from the Emergency Department yesterday for new-onset witnessed generalized tonic-clonic seizure. The patient recently received a Pfizer COVID vaccine on Tuesday. Then on 06/08 in the morning, he came to the ER because of dizziness and weakness. This was thought to be an adverse side effect from the COVID vaccine. He was discharged to home. Then around 9:30 p.m. last night, he had a witnessed generalized tonic-clonic seizure. This was witnessed by his . It lasted about 1 minute in duration. The patient was unresponsive and had labored breathing. EMS arrived and the patient was agitated, although his mentation improved. He was given Keppra in the Emergency Department and underwent imaging. CTA head and neck imaging showed a density in the right temporal lobe concerning for a possible infarct. The patient was admitted from the Emergency Department yesterday for new-onset seizure evaluation. Neurology was consulted upon admission. ALLERGIES: ERYTHROMYCIN AND GUAIFENESIN. PAST MEDICAL HISTORY: Type 2 diabetes, hyperlipidemia, pulmonary hypertension, hypertension, pulmonary embolism, deep venous thrombosis, insomnia. PAST SURGICAL HISTORY: Right shoulder arthroscopy, biopsy of prostate, colonoscopy, EGD, cataract surgery, tonsillectomy, adenoidectomy, and rotator cuff repair. HOME MEDICATIONS: Norvasc 10 mg, aspirin 81 mg, Lipitor 40 mg, Coreg 3.125 mg twice daily, gabapentin 300 mg twice daily, Jardiance 25 mg in the morning, Lantus 28 units at night, losartan 100 mg in the morning, metformin 1000 mg twice a day, Remeron 30 mg nightly, Protonix 40 mg daily, Flomax, Xarelto 20 mg daily. FAMILY HISTORY: There is a positive family history of brain cancer. Sister from brain cancer. Father had diabetes, elevated cholesterol, and a stroke. His mother had a stroke and dementia. SOCIAL HISTORY: He lives with his . He is a former smoker, quit in 1969. He smoked half a pack per day for 5 years. Occasionally drinks alcohol. He denies any illicit drug use. REVIEW OF SYSTEMS: All other review of systems was negative except as noted above in the HPI. PHYSICAL EXAMINATION: VITAL SIGNS: Blood pressure 144/72, pulse is 83, respiratory rate 16, temperature 36.8 degrees Celsius, oxygen saturation is 99% on room air. GENERAL: The patient appears normally developed and appears stated age. HEENT: Head is normocephalic and atraumatic. Normal eyelids, normal conjunctivae. NECK: Supple. LUNGS: Normal respiratory effort. CARDIOVASCULAR: Normal cardiac pulses. ABDOMEN: Nondistended. SKIN: No skin rash. PSYCHIATRIC: Normal mood. NEUROLOGIC: He is awake, alert and oriented to person, place and time. His attention is normal. His knowledge is appropriate. Comprehension is intact. Speech is clear. No visual defect on confrontation. Pupils are symmetric. Facial sensation intact. Extraocular muscles are intact. Intact hearing. Palate is symmetric. Good shoulder shrug. Tongue is midline with abrasion on the left. Gait evaluation is deferred. No tremor or myoclonic jerks. No ataxia with [id number] testing. Sensation is intact to light touch. Muscle tone is normal. Muscle strength is 5/5 throughout. Reflexes, no ankle clonus and negative Ankit sign. DIAGNOSTIC TESTING AND LABORATORY VALUES: WBC 10.57, hemoglobin 14.3, platelet count 230. INR is 1.1. Sodium 138, potassium 3.8, chloride 105, carbon dioxide 26, BUN 24, creatinine 1.08. Hemoglobin A1c 8.8. Calcium is 8.1. LDL cholesterol is 109. MRI of the brain with and without contrast; a 1.6 x 1.4 cm ring enhancing medial right temporal lobe lesion. This finding is suggestive of a neoplastic process. There is no focus of restricted diffusion to suggest acute infarct. 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 Primary malignancy is unknown at this point. Recommend CT chest, abdomen and pelvis for further evaluation. The patient will require oncology referral and neurosurgery follow up as an outpatient.. Agree with starting Keppra 500 mg twice daily and continuing. Recommend STOPPING home Remeron. [place] State Law is that he cannot drive for 6 months after having a new-onset seizure. Neurology will continue to follow. [facility]ERN[facility]ole[facility]
[2020-06-09] MEDS ORDERED: OPTIRAY 320 100ml IV ONE (15:03)
--- NOTE | 2020-06-09 15:16 | CT Scan Report ---
CT abd pelvis oral and IV con CLINICAL HISTORY: Ring enhancing intracranial mass. Suspected glioma or metastatic disease. Evaluate for primary. COMPARISON STUDY: December 2016 TECHNIQUE: The patient was scanned following administration of dilute oral contrast, and in a dynamic helical fashion during intravenous administration of 94 cc of Optiray 320 A dose lowering technique was utilized adhering to the principles of ALARA. CT DOSE: FINDINGS: Lower chest: There is a 2.5 mm left lower lobe pulmonary nodule. There are left basilar atelectatic c hanges. Liver: The contrast-enhanced liver is normal in size, contour, and attenuation. There is no intrahepa tic biliary ductal dilatation. The hepatic veins and portal veins are patent. Gallbladder: Cholelithiasis. There is fundal gallbladder wall thickening. Spleen: Normal in size and attenuation. Pancreas: Unremarkable. Adrenal glands: Unremarkable. Kidneys: There is symmetric renal cortical enhancement. The kidneys are normal in size without hydron ephrosis. Bowel: There are no transition zones to indicate bowel obstruction. There is no evidence of acute div erticulitis. The appendix appears normal. Peritoneum: There is no intraperitoneal free air or abdominal ascites. There is a tiny fat-containing umbilical hernia. A small fat-containing left inguinal hernia. Vasculature: The abdominal aorta is normal in course and caliber. Adenopathy: None. Pelvic viscera: The prostate is enlarged. Skeletal structures: No destructive osseous lesions are seen. IMPRESSION: 1. 2.5 mm left lower lobe pulmonary nodule 2. No evidence of bowel obstruction. No evidence of free air 3. Normal appendix. No evidence of acute diverticulitis 4. Persistent cholelithiasis with persistent wall thickening involving the gallbladder fundus 5. Prostatomegaly 6. No evidence of intra-abdominal or pelvic metastatic disease ACT 112: Negative or not required by law. Electronically signed by: Omid Schneider M.D. 06/09/2020 3:15 PM
--- NOTE | 2020-06-09 15:21 | CT Scan Report ---
CHEST CT WITH CONTRAST CT DOSE: 1214.44 mGy.cm HISTORY: Malignancy work up. Has brain lesion TECHNIQUE: Multiaxial CT images of the chest were performed following the intravenous administration of contrast. A dose lowering technique was utilized adhering to the principles of ALARA. COMPARISON: Chest CTA 06/18/2018. FINDINGS: No pneumothorax. No pleural effusions. Small linear density at the base of the left lower l obe consistent with subsegmental atelectasis are scarring. The central airways are patent. No focal l tova consolidations to suggest pneumonia. There are two 4 mm nodules seen within the base of the left lower lobe on images 221 and 218. These demonstrate greater than 2 year stability and are therefore c onsidered to be benign. No new or suspicious pulmonary nodules/masses identified. No suspicious lytic or blastic osseous lesions. 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 No mediastinal or hilar lymphadenopathy. The h eart is normal in size. Please refer the same day abdomen and pelvis CT for further evaluation of the abdominal structures. Normal caliber esophagus. No evidence for an aortic dissection. No axillary ly mphadenopathy. The main pulmonary arteries are patent. IMPRESSION: 1. No evidence for neoplastic or metastatic disease within the chest. 2. Subcentimeter left lower lobe pulmonary nodules demonstrate greater than 2 year stability and are therefore considered to be benign. ACT 112: Negative or not required by law. Electronically signed by: Jefferson Hernandez M.D. 06/09/2020 3:20 PM
--- NOTE | 2020-06-09 16:10 | Electrocardiogram Report ---
Test Reason : Blood Pressure : / mmHG Vent. Rate : 103 BPM Atrial Rate : 103 BPM P-R Int : 202 ms QRS Dur : 096 ms QT Int : 356 ms P-R-T Axes : 069 067 030 degrees QTc Int : 466 ms Poor data quality, interpretation may be adversely affected Sinus tachycardia with 1st degree AV block Nonspecific ST abnormality Otherwise normal ECG When compared with ECG of 08-JUN-2020 14:44, (unconfirmed) No significant change was found Confirmed by Sae Tello ([id number]) on 06/09/2020 4:09:33 PM Referred By: REFERRED SELF Confirmed By:Epi Tello
--- NOTE | 2020-06-09 16:11 | Electroencephalogram ---
EEG Procedure Note Date of Service June 09, 2020 Start / End Times Start Time: 08:00 End Time: 08:[address] 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 EEG performed for evaluation of epileptiform activity. Home Medication List Medication Instructions Recorded Confirmed Type Jardiance 25 mg PO QAM 06/18/18 06/09/20 History Lantus Solostar U-100 Insulin 28 unit SUBCUT QPM 06/18/18 06/09/20 History Xarelto 20 mg PO QAM 06/18/18 06/09/20 History amlodipine 10 mg PO QAM 06/18/18 06/09/20 History aspirin 81 mg PO QAM 06/18/18 06/09/20 History atorvastatin 40 mg PO QAM 06/18/18 06/09/20 History finasteride 5 mg PO QAM 06/18/18 06/09/20 History losartan 100 mg PO QAM 06/18/18 06/09/20 History pantoprazole 40 mg PO QAM 06/18/18 06/09/20 History tamsulosin 0.4 mg PO QAM 06/18/18 06/09/20 History multivitamin 1 tab PO DAILY 08/21/19 06/09/20 History carvedilol 3.125 mg PO BID 06/09/20 06/09/20 History gabapentin 300 mg PO TID 06/09/20 06/09/20 History magnesium 250 mg PO DAILY 06/09/20 06/09/20 History metformin 1,000 mg PO BID 06/09/20 06/09/20 History mirtazapine 30 mg PO HS PRN 06/09/20 06/09/20 History Inpatient Medication List Amlodipine Besylate (A[facility]odipine Besylate 5 Mg Tab) [facility] [place] 07/09/20 08:59 Last Admin: 06/09/20 08:26 Dose: 10 mg Documented by: [id number] Aspirin (Aspirin 81 Mg Ectab) 81 mg PO QAM [facility] Stop: 07/09/20 08:59 Last Admin: 06/09/20 08:25 Dose: 81 mg Documented by: [id number] Atorvastatin Calcium (Atorvastatin 40 Mg Tab) 40 mg PO QAM [facility] Stop: 07/09/20 08:59 Last Admin: 06/09/20 08:27 Dose: 40 mg Documented by: [id number] Carvedilol (Carvedilol 3.125 Mg Tab) 3.125 mg PO BID [facility] Stop: 07/09/20 08:59 Last Admin: 06/09/20 08:27 Dose: 3.125 mg Documented by: [id number] Finasteride (Finasteride 5 Mg Tab) 5 mg PO QAM [facility] Stop: 07/09/20 08:59 Last Admin: 06/09/20 08:29 Dose: 5 mg Documented by: [id number] Gabapentin (Gabapentin 300 Mg Cap) 300 mg PO TID [place] Stop: 07/09/20 08:59 Last Admin: 06/09/20 08:26 Dose: 300 mg Documented by: [id number] Sodium Chloride (Nss 1000ml) 1,000 mls @ 80 mls/hr IV .[id number] [facility] Stop: 06/09/20 21:00 Last Admin: 06/09/20 04:54 Dose: 80 mls/hr Documented by: [id number] Insulin Aspart (Insulin Aspart 100 Units/Ml 3 Ml Pen) 0 units SC ACHS [place] Stop: 07/09/20 07:29 Last Admin: 06/09/20 12:42 Dose: Not Given Documented by: [id number] Cosigned by: [id number] Admin: 06/09/20 09:01 Dose: Not Given Documented by: [id number] Cosigned by: [id number] Losartan Potassium (Losartan Potassium 50 Mg Tab) 100 mg PO QAM [facility] Stop: 07/09/20 08:59 Last Admin: 06/09/20 08:28 Dose: 100 mg Documented by: [id number] Magnesium Oxide (Magnesium Oxide 400 Mg Tab) 400 mg PO DAILY [facility] Stop: 07/09/20 08:59 Last Admin: 06/09/20 08:29 Dose: 400 mg Documented by: [id number] Multivitamins (Multivitamin Tab) 1 tab PO DAILY [facility] Stop: 07/09/20 08:59 Last Admin: 06/09/20 08:28 Dose: 1 tab Documented by: [id number] Pantoprazole Sodium (Pantoprazole 40 Mg Tab) 40 mg PO QAM [facility] Stop: 07/09/20 08:59 Last Admin: 06/09/20 08:29 Dose: 40 mg Documented by: [id number] Rivaroxaban (Rivaroxaban 20 Mg Tab) 20 mg PO QAM [facility] Stop: 07/09/20 08:59 Last Admin: 06/09/20 08:29 Dose: 20 mg Documented by: [id number] Tamsulosin HCl (Tamsulosin Hcl 0.4 Mg Cap) 0.4 mg PO QAM [facility] Stop: 07/09/20 08:59 Last Admin: 06/09/20 08:29 Dose: 0.4 mg Documented by: [id number] Discontinued Medications Levetiracetam 1,000 mg/ Sodium (Chloride) 110 mls @ 440 mls/hr IV NOW STA Stop: 06/09/20 00:46 Last Infusion: 06/09/20 01:25 Dose: 0 mls/hr Documented by: [id number] Admin: 06/09/20 00:44 Dose: 440 mls/hr Documented by: [id number] Lorazepam (Ativan) 0.5 mg in 1 mls @ 1 mls/min IV NOW STA Stop: 06/09/20 05:39 Last Admin: 06/09/20 06:02 Dose: 1 mls/min Documented by: [id number] Ioversol (Optiray 320 125ml) 125 ml IV ONCE ONE Stop: 06/08/20 23:41 Last Admin: 06/08/20 23:40 Dose: 115 ml Documented by: [id number] Ioversol (Ioversol 100ml) 94 ml IV ONCE ONE Stop: 06/09/20 15:04 Last Admin: 06/09/20 15:04 Dose: 94 ml Documented by: [id number] Description This is a 21 electrode EEG with a single channel dedicated to limited EKG. The electrodes were placed in accordance with the International 10-20 system. REPORT: At the onset of the EEG the patient is awake. The posterior dominant rhythm is 9 Hz. There is low amplitude beta activity in the frontal head regions with a normal anterior to posterior gradient. There is intermittent increased 3- 5 Hz theta-delta activity in the right temporal head region. No stage II sleep transients are recorded. Photic stimulation does not induce any abnormalities. IMPRESSION: This is an abnormal awake and drowsy routine EEG due to mild intermittent focal slowing in the right temporal head region suggestive of an underlying structural abnormality or neuronal dysfunction. No epileptiform discharges are seen.
[2020-06-09] MEDS: INSULIN GLARGINE SOLOSTAR 100 UNITS/ML 3 ML PEN SQ SCH (21:08)
[2020-06-10] MEDS ORDERED: GADOBUTROL 65ML VIAL IV ONE (01:51)
[2020-06-10 08:05] LABS: Basophils # (auto) 0.02 K/uL (0-0.2); Basophils % (auto) 0.2 %; Eosinophils # (auto) 0.13 K/uL (0-0.5); Eosinophils % (auto) 1.4 %; Hematocrit (blood only) 40.5 % (42-52); Hemoglobin 14.2 g/dL (14.0-18.0); Immature Granulocytes # (auto) 0.02 K/uL (0.00-0.02); Immature Granulocytes % (auto) 0.2 %; Lymphocytes # (auto) 2.07 K/uL (1.2-3.4); Lymphocytes % (auto) 21.6 %; Mean Corpuscular Hemoglobin 31.6 pg (25-34); Mean Corpuscular Hgb Conc 35.1 g/dL (32-36); Mean Platelet Volume 10.6 fL (7.4-10.4); Monocytes # (auto) 1.05 K/uL (0.11-0.59); Neutrophils # (auto) 6.28 K/uL (1.4-6.5); Neutrophils % (auto) 65.6 %; Platelet Count 236 K/uL (130-400); RDW Coefficient of Variation 13.2 % (11.5-14.5); RDW Standard Deviation 43.5 fL (36.4-46.3); White Blood Count 9.57 K/uL (4.8-10.8)
[2020-06-10 08:41] LABS: BUN Creatinine Ratio 29.1 (10-20); Calcium 8.1 mg/dl (8.5-10.1); Creatinine Clr Calc Pharmacy 75.6 ml/min; Est GFR (African American) 94.2; Est GFR (Non-African American) 81.2; Potassium 3.2 mmol/L (3.5-5.1)
[2020-06-10] MEDS: carvediloL 3.125 MG TAB PO SCH ×2 (08:45→20:26)
[2020-06-10] MEDS: MAGNESIUM OXIDE 400 MG TAB PO SCH (08:46)
[2020-06-10] MEDS: GABAPENTIN 300 MG CAP PO SCH ×3 (08:46→20:26)
[2020-06-10] MEDS: PANTOprazole 40 MG TAB PO SCH (08:46)
[2020-06-10] MEDS: TAMSULOSIN HCL 0.4 MG CAP PO SCH (08:46)
[2020-06-10] MEDS: ATORVASTATIN 40 MG TAB PO SCH (08:46)
[2020-06-10] MEDS: RIVAROXABAN 20 MG TAB PO SCH (08:47)
[2020-06-10] MEDS: LOSARTAN POTASSIUM 50 MG TAB PO SCH (08:47)
[2020-06-10] MEDS: amLODIPine BESYLATE 5 MG TAB PO SCH (08:47)
[2020-06-10] MEDS: ASPIRIN 81 MG ECTAB PO SCH (08:47)
[2020-06-10] MEDS: MULTIVITAMIN TAB PO SCH (08:48)
[2020-06-10] MEDS: FINASTERIDE 5 MG TAB PO SCH (08:49)
[2020-06-10] MEDS: INSULIN ASPART 100 UNITS/ML 3 ML PEN SC SCH ×4 (08:51→20:28)
[2020-06-10] MEDS: SODIUM CHLORIDE 0.9% 1000ML 1,000 ML IV SCH (10:09)
--- NOTE | 2020-06-10 10:28 | Hospitalist Progress Note ---
Date of Service June 10, 2020 Assessment & Plan (1) Brain lesion: (2) Seizure: Seizure episode Reported to have been witnessed by Continue Keppra CT brain showing right temporal lobe lesion MRI showing 1.6 x 1.4 ring-enhancing medial right temporal lobe lesion suggestive of a neoplastic process CT chest abdomen and pelvis with contrast for malignancy work-up did not show any new mass/mets Neurologist recommendations appreciated Patient will need to follow-up with neurosurgery and oncology. Discussed with patient's about plan. She would like for us to help with the appointment prior to discharge. Coordinator Jose Cruz working on appointments Patient advised not to drive for the next 6months until cleared by PCP/Neuro. also updated about this (3) DM type 2 (diabetes mellitus, type 2): Hemoglobin A1c is 8.8 Hold home oral antidiabetic's mentioned that patient occasionally misses his home insulin. Diabetes education provided Manage with insulin per protocol while inpatient (4) Hypertension: Continue Coreg, losartan and amlodipine Monitor blood pressure (5) History of pulmonary embolism: History of DVT and PE Continue Xarelto BPH Continue finasteride and Flomax Plan for discharge tomorrow Admission and Anticipated Discharge Date Admission Date: June 09, 2020 Subjective Patient seen and examined. Reports feeling better today. Denies any headache, dizziness. No more episodes of seizures. Denies chest pain, shortness of breath, cough Denies abdominal pain, nausea, vomiting, diarrhea constipation Reports generalized weakness but feeling better No fevers, chills Denies dysuria, frequency, urgency, hematuria Physical Exam Constitutional: + well hydrated; no acute distress Eyes: PERRL, conjunctivae normal, anicteric sclerae ENMT: external ear and nose normal, oropharynx normal Respiratory: normal respiratory effort, lungs clear to auscultation Cardiovascular: Rate/Rhythm: regular rate and regular rhythm S1-S2, no pedal edema Gastrointestinal (Abdomen): normal bowel sounds, soft, nontender, no hepatosplenomegaly Musculoskeletal: no cyanosis or clubbing, extremities motor strength 5/5 Neurologic: PERRL, EOMI, accommodation nl, no face palsy, no dysarthria Psychiatric: A+Ox3, euthymic affect Results & Data Results & Data ([facility]) Vital Signs (Past 12 Hours) Vital Signs Temp Pulse Pulse Resp BP BP Pulse Ox 06/10/20 07:30 74 06/10/20 07:09 36.8 C 72 17 153/85 H 94 06/10/20 03:28 36.7 C 64 18 144/77 H 94 06/09/20 23:48 36.7 C 75 18 125/68 95 Laboratory Results Laboratory Results - last 24 hr 06/09/20 06/09/20 06/10/20 16:20 20:36 07:12 WBC RBC Hgb Hct MCV MCH MCHC RDW Std Deviation RDW Coeff of Diandra Plt Count MPV Immature Gran % (Auto) Neut % (Auto) Lymph % (Auto) Day % (Auto) Eos % (Auto) Baso % (Auto) Neut # (Auto) Lymph # (Auto) Day # (Auto) Eos # (Auto) Baso # (Auto) Immature Gran # (Auto) Sodium Potassium Chloride Carbon Dioxide Anion Gap BUN Creatinine Est Cr Clr Drug Dosing Est GFR ( Amer) Est GFR (Non-Af Amer) BUN/Creatinine Ratio Glucose POC Glucose 150 H 161 H 72 Calcium Hepatitis C Ab Screen 06/10/20 06/10/20 06/10/20 07:40 07:40 07:40 WBC 9.57 RBC 4.50 L Hgb 14.2 Hct 40.5 L MCV 90.0 MCH 31.6 MCHC 35.1 RDW Std Deviation 43.5 RDW Coeff of Diandra 13.2 Plt Count 236 MPV 10.6 H Immature Gran % (Auto) 0.2 Neut % (Auto) 65.6 Lymph % (Auto) 21.6 Day % (Auto) 11.0 Eos % (Auto) 1.4 Baso % (Auto) 0.2 Neut # (Auto) 6.28 Lymph # (Auto) 2.07 Day # (Auto) 1.05 H Eos # (Auto) 0.13 Baso # (Auto) 0.02 Immature Gran # (Auto) 0.02 Sodium 140 Potassium 3.2 L D Chloride 107 Carbon Dioxide 27 Anion Gap 6.0 BUN 27 H Creatinine 0.94 Est Cr Clr Drug Dosing 75.6 Est GFR ( Amer) 94.2 Est GFR (Non-Af Amer) 81.2 BUN/Creatinine Ratio 29.1 H Glucose 70 POC Glucose Calcium 8.1 L Hepatitis C Ab Screen Neg 06/10/20 11:37 WBC RBC Hgb Hct MCV MCH MCHC RDW Std Deviation RDW Coeff of Diandra Plt Count MPV Immature Gran % (Auto) Neut % (Auto) Lymph % (Auto) Day % (Auto) Eos % (Auto) Baso % (Auto) Neut # (Auto) Lymph # (Auto) Day # (Auto) Eos # (Auto) Baso # (Auto) Immature Gran # (Auto) Sodium Potassium Chloride Carbon Dioxide Anion Gap BUN Creatinine Est Cr Clr Drug Dosing Est GFR ( Amer) Est GFR (Non-Af Amer) BUN/Creatinine Ratio Glucose POC Glucose 102 H Calcium Hepatitis C Ab Screen
[2020-06-10] MEDS ORDERED: POTASSIUM CHLORIDE PWD 20 MEQ PACK PO ONE (15:30)
--- NOTE | 2020-06-10 17:43 | Progress Notes ---
DATE: 06/10/2020 NEUROLOGY PROGRESS NOTE A 69-year-old male. CHIEF COMPLAINT: Seizure. SUBJECTIVE: The patient was seen and examined at bedside. He denies any new complaints or concerns. He had no acute events overnight. He is tolerating Keppra 500 mg twice daily well. He did undergo a CT chest, abdomen and pelvis yesterday. Otherwise, he is anxious and looking forward to going home. He speaks of going home tomorrow. OBJECTIVE: VITAL SIGNS: Blood pressure 128/74, pulse is 73, respiratory rate 18, temperature is 37 degrees Celsius, oxygen saturation is 95% on room air. GENERAL: The patient appears normally developed. He is in no distress. HEENT: His head is normocephalic and atraumatic. Normal eyelids, normal conjunctivae. There is an abrasion on the left side of his tongue. NECK: Supple. LUNGS: Normal respiratory effort. CARDIOVASCULAR: Normal cardiac pulses. ABDOMEN: Nondistended. SKIN: There is no skin rash or abnormal moles or nevi seen. PSYCHIATRIC: He has a normal mood and affect. NEUROLOGIC: He is awake, alert, oriented to person, place and time. His speech is clear. His comprehension is intact. He can repeat. He blinks to threat. His pupils are symmetric. His face is symmetric. Tongue is midline with an abrasion on the left side. His hearing is intact. He has no tremor or myoclonic jerks. He has no ataxia with uaredu-ea-lbwg testing. Sensation is intact to light touch. He has no ankle clonus. There is no focal weakness on muscle strength testing. DIAGNOSTIC TESTING: Routine EEG was a normal awake and drowsy EEG. MRI of the brain showed a ring-enhancing medial right temporal lobe lesion. There was no restricted diffusion. CT of the chest showed no evidence of neoplastic or metastatic disease within the chest. No mediastinal or hilar lymphadenopathy. CT of the abdomen and pelvis showed a 2.5 mm left lower lobe pulmonary nodule. No evidence of bowel obstruction, no evidence of free-air. Normal appendix. There was an enlarged prostate. No evidence of intra-abdominal or pelvic metastatic disease. ASSESSMENT AND PLAN: A pleasant 69-year-old male admitted with new-onset symptomatic seizure due to a right temporal lobe lesion suspicious for a neoplasm. CT of the chest, abdomen and pelvis showed no evidence of a primary malignancy. The patient will require neurosurgical consultation as an outpatient for consideration of possible biopsy or resection. He will also need to follow up with oncology as well and may require a PET scan as an outpatient. Otherwise, in terms of seizure prophylaxis, he will need to continue Keppra 500 mg twice daily indefinitely for now. We will plan to see the patient back in followup in 4-6 weeks.
[2020-06-10] MEDS: INSULIN GLARGINE SOLOSTAR 100 UNITS/ML 3 ML PEN SQ SCH (20:26)
[2020-06-11 06:20] LABS: Basophils # (auto) 0.02 K/uL (0-0.2); Basophils % (auto) 0.3 %; Eosinophils # (auto) 0.12 K/uL (0-0.5); Eosinophils % (auto) 1.5 %; Hematocrit (blood only) 40.1 % (42-52); Hemoglobin 13.6 g/dL (14.0-18.0); Immature Granulocytes # (auto) 0.02 K/uL (0.00-0.02); Immature Granulocytes % (auto) 0.3 %; Lymphocytes # (auto) 1.46 K/uL (1.2-3.4); Lymphocytes % (auto) 18.3 %; Mean Corpuscular Hemoglobin 30.6 pg (25-34); Mean Corpuscular Hgb Conc 33.9 g/dL (32-36); Mean Corpuscular Volume 90.1 fL (80-100); Mean Platelet Volume 10.5 fL (7.4-10.4); Monocytes # (auto) 1.02 K/uL (0.11-0.59); Monocytes % (auto) 12.8 %; Neutrophils # (auto) 5.33 K/uL (1.4-6.5); Neutrophils % (auto) 66.8 %; Platelet Count 223 K/uL (130-400); RDW Coefficient of Variation 12.9 % (11.5-14.5); RDW Standard Deviation 42.9 fL (36.4-46.3); Red Blood Count 4.45 M/uL (4.7-6.1); White Blood Count 7.97 K/uL (4.8-10.8)
[2020-06-11 06:47] LABS: BUN Creatinine Ratio 22.3 (10-20); Calcium 7.9 mg/dl (8.5-10.1); Creatinine Clr Calc Pharmacy 72.9 ml/min; Est GFR (African American) 90.7; Est GFR (Non-African American) 78.2; Magnesium 2.4 mg/dl (1.8-2.4); Phosphorus 2.5 mg/dl (2.5-4.9); Potassium 3.1 mmol/L (3.5-5.1)
[2020-06-11] MEDS: carvediloL 3.125 MG TAB PO SCH (08:21)
[2020-06-11] MEDS: PANTOprazole 40 MG TAB PO SCH (08:22)
[2020-06-11] MEDS: TAMSULOSIN HCL 0.4 MG CAP PO SCH (08:22)
[2020-06-11] MEDS: ATORVASTATIN 40 MG TAB PO SCH (08:22)
[2020-06-11] MEDS: FINASTERIDE 5 MG TAB PO SCH (08:22)
[2020-06-11] MEDS: LOSARTAN POTASSIUM 50 MG TAB PO SCH (08:22)
[2020-06-11] MEDS: GABAPENTIN 300 MG CAP PO SCH ×2 (08:22→14:01)
[2020-06-11] MEDS: MULTIVITAMIN TAB PO SCH (08:22)
[2020-06-11] MEDS: ASPIRIN 81 MG ECTAB PO SCH (08:22)
[2020-06-11] MEDS: MAGNESIUM OXIDE 400 MG TAB PO SCH (08:22)
[2020-06-11] MEDS: RIVAROXABAN 20 MG TAB PO SCH (08:22)
[2020-06-11] MEDS: amLODIPine BESYLATE 5 MG TAB PO SCH (08:23)
[2020-06-11] MEDS: INSULIN ASPART 100 UNITS/ML 3 ML PEN SC SCH ×2 (08:23→11:53)
--- NOTE | 2020-06-11 11:48 | Discharge Summary ---
Date of Service June 11, 2020 Admission HPI Per Admitting Provider A 69-year-old male with past medical history significant for type 2 diabetes, hyperlipidemia, pulmonary hypertension, hypertension, BPH, lumbar degenerative disk disease, history of urinary retention, history of pulmonary embolism and deep venous thrombosis, on Xarelto, primary insomnia, lives with his , was brought in because of seizures. The patient received second dose of Pfizer COVID shot last Tuesday. On 06/08/2020 morning he came to the ER because of dizziness and weakness, thought to be from COVID vaccine reaction. He was feeling fine and discharged home. Apparently did fine. Around 9:30 p.m., he had a tonic clonic seizure witnessed by his for a full 1 minute and was unresponsive, had labored breathing. When EMS came and when they shouted at him, he could open his eyes and after a much longer time mental status is , almost back to baseline, but somewhat confused as per . Received a dose of Keppra in the ER and workup showed 1.4 cm density in the medial right temporal lobe thought to be possibly subacute infarct. Currently patient is sleeping, but arousable, and is at bedside. The patient denies any headache or blurred visions or double visions. He is feeling a little lightheaded. No earache, no runny nose, no sore throat, no cough. Appetite is okay. No chest pain or shortness of breath. No nausea, no vomiting, no abdominal pain, no diarrhea or constipation, no blood in stool or black stool. Normal bladder movements. No rash. Admission Exam Per Admitting Provider GENERAL: The patient is moderate built, not in acute distress. VITAL SIGNS: Temperature 37, pulse 90, respiratory rate 20, blood pressure 161/90, oxygen 97% on 2 liters. HEENT: Pupils equal, round, and reactive to light. Oral mucosa moist. NECK: No JVD, no neck masses. CARDIOVASCULAR: S1, S2, regular rate and rhythm, no murmur, no gallop. RESPIRATORY SYSTEM: Normal AP diameter. No accessory muscle use. No wheezing, no crackles. ABDOMEN: Soft, bowel sounds present, nontender. No distention. CENTRAL NERVOUS SYSTEM: Alert and oriented x 3. Cranial nerves II-XII grossly intact. Speech is clear, no facial droop seen. Power 5/5 in all extremities. Sensation is intact. Coordination of movements normal. Position sense intact. EXTREMITIES: No edema, no erythema. Principal Diagnosis brain lesion Discharge Exam General: A&Ox3 HENT: NCAT, MMM, EOMI Eyes: PERRLA Neck: Supple, normal range of motion CVS: normal rate and rhythm Resp: b/l good breath sounds Abdomen: Soft, ND/NT, +BS Extremities: No c/c/e Neuro: face symmetric, strength grossly equal, no focal deficit Skin: warm and dry, no rashes/lesions/errythema MSK: normal ROM, no joint swelling/erythema Discharge Data Allergies Allergy/AdvReac Type Severity Reaction Status Date / Time erythromycin base Allergy Unknown PT NOT SURE Verified 06/08/20 16:28 Consultations 06/09/20 00:52 ED Decision to Admit Stat 06/09/20 08:00 Consult Neurology Routine Ordered Studies 06/08/20 23:34 CT angio head w con Urgent CT angio neck with con Urgent CT head/brain wo con Urgent 06/09/20 04:37 MR brain wo/w con Urgent 06/09/20 12:20 CT abd pelvis oral and IV con Urgent 06/09/20 14:02 CT chest diagnostic w con Urgent Hospital Course (1) Brain lesion: (2) Seizure: Seizure episode Reported to have been witnessed by Continue Keppra CT brain showing right temporal lobe lesion MRI showing 1.6 x 1.4 ring-enhancing medial right temporal lobe lesion suggestive of a neoplastic process CT chest abdomen and pelvis with contrast for malignancy work-up did not show any new mass/mets Patient was evaluated by neurology. Recommended to start Keppra 500 mg twice daily. Patient will follow up with neurosurgery and oncology as an outpatient. Patient is not allowed to drive for the next 6 months. On the day of discharge patient was doing okay. He did not have any new concerns. Patient did not have new complaints. Patient was discharged in stable condition. (3) DM type 2 (diabetes mellitus, type 2): Hemoglobin A1c is 8.8 (4) Hypertension: Continue Coreg, losartan and amlodipine Monitor blood pressure (5) History of pulmonary embolism: Continue Xarelto BPH Continue finasteride and Flomax Total Time Total Time Spent Total Time Spent (In Minutes): 35 Discharge Plan Discharge Items Patient Disposition: Home - Self-Care Reason For Visit: SEIZURE Discharge Diagnosis: Brain lesion Activity: Resume your previous activity Non-emergency contact: Primary Care Provider Call non-emergency contact if: your symptoms worsen Follow-up/Referrals: Apolinar Wayne DO [Primary Care Provider] - (Date & Time 06/17/2020 11:20 AM Provider Apolinar Wayne DO Department General Internal Medicine [facility] ) Diet: Regular and Carb Consistent or DM2 Addtl Attending Provider Instructions: Follow-up with your primary care physician within 1 week. Follow-up with neurosurgery and oncology. Appointments have been requested. Follow-up with neurology in 2 to 4 weeks. Start taking Keppra 500 mg twice daily. Pending Studies at Discharge: No Stand-Alone Forms: My [facility] [employer], Smoking Cessation Medications and DC Order Prescriptions: New levetiracetam [Keppra] 500 mg tablet 500 mg PO BID 28 Days Qty: 56 RF: 0 Continued multivitamin Tablet 1 tab PO DAILY RF: 0 amlodipine 10 mg Tablet 10 mg PO QAM RF: 0 atorvastatin 40 mg Tablet 40 mg PO QAM RF: 0 aspirin 81 mg Tablet,Delayed Release (Dr/Ec) 81 mg PO QAM RF: 0 finasteride 5 mg Tablet 5 mg PO QAM RF: 0 Jardiance 25 mg Tablet 25 mg PO QAM RF: 0 pantoprazole 40 mg Tablet,Delayed Release (Dr/Ec) 40 mg PO QAM RF: 0 losartan 100 mg Tablet 100 mg PO QAM RF: 0 tamsulosin 0.4 mg Capsule 0.4 mg PO QAM RF: 0 Lantus Solostar U-100 Insulin 100 unit/mL (3 mL) Insulin Pen 28 unit SUBCUT QPM RF: 0 Xarelto 20 mg Tablet 20 mg PO QAM RF: 0 mirtazapine 30 mg tablet 30 mg PO HS PRN (Reason: Sleep) RF: 0 gabapentin 300 mg capsule 300 mg PO TID RF: 0 metformin 1,000 mg Tablet 1,000 mg PO BID RF: 0 carvedilol 3.125 mg tablet 3.125 mg PO BID RF: 0 magnesium 250 mg Tablet 250 mg PO DAILY RF: 0 Discharge Orders: Discharge Order (Routine); Ordered 06/11/20 Ordered By: Terra Quiroz/Other Patient Handouts: High Blood Sugar (Hyperglycemia), Hypoglycemia (Low Blood Sugar), Managing Type 2 Diabetes, Managing Diabetes: The A1C Test Admission Data Admit Date/Time: 06/09/20 03:33 Attending Provider: Terra Clinton Admit Provider: Matias Franz Primary Care Provider: Apolinar Wayne Other Providers: Lis Reynoso ; Adarsh Jackson ; Lis Martinez ; Chaka Avila ; Matias Franz
--- NOTE | 2020-06-17 07:35 | Coding Query ---
CODING QUERY To promote full compliance with coding requirements relating to patient care, provider participation is requested in all cases of wafer cleaner uncertainty. Please assist us with the question(s) below: Coding Question(s): Patient admitted with seizures due to temporal brain lesion. Neuro C/S stated possible metatastic lesion , unknown primary . Seeking to Clarify the Discharge Summary prin diagnosis of brain lesion. After discharge patient referred to neurosurgeon for consultation.Please check below the phrase that descrxibes the brain lesion. Thanks for your help. [place] [facility] Physician's Response(s): __ Brain lesion is a possible metastatic lesion, unknown primary Brain lesion, unknown etiology Other, Please document: Principal Diagnosis: "that condition established after study, to be chiefly responsible for occasioning the admission of the patient to the hospital for care." Co-Existing Principal Diagnosis: "when two or more diagnoses equally meet the criteria for principal diagnosis as determined by the circumstances of admission, diagnostic work up, and/or therapy provided, and the Alphabetic Index, Tabular List, or another coding guideline does not provide sequencing direction, any one of the diagnoses may be sequenced first." "When the physician has documented what appears to be a current diagnosis in the body of the record, but has not included the diagnosis in the final diagnostic statement, the physician should be asked whether the diagnosis should be added." ([facility] 2 QTR90. p3-4) DUARTED
== END 2020-06-11 15:16 | disposition home or self-care (01) | DRG 55 ==
LOC: ED 22:59 → 2S 06-09 03:33 → SUATTDRO 06-09 03:33 → 2S 06-09 04:11

== ENCOUNTER 2020-07-10 14:11 | Inpatient (IN) ==
[2020-07-10] MEDS ORDERED: SODIUM CHLORIDE 0.9% 1000ML 500 ML IV ONE (15:23)
[2020-07-10 15:44] LABS: Basophils # (auto) 0.01 K/uL (0-0.2); Basophils % (auto) 0.1 %; Eosinophils # (auto) 0.16 K/uL (0-0.5); Eosinophils % (auto) 2.1 %; Hematocrit (blood only) 43.6 % (42-52); Hemoglobin 14.8 g/dL (14.0-18.0); Immature Granulocytes # (auto) 0.09 K/uL (0.00-0.02); Immature Granulocytes % (auto) 1.2 %; Lymphocytes # (auto) 1.67 K/uL (1.2-3.4); Lymphocytes % (auto) 21.5 %; Mean Corpuscular Hemoglobin 31.3 pg (25-34); Mean Corpuscular Hgb Conc 33.9 g/dL (32-36); Mean Corpuscular Volume 92.2 fL (80-100); Monocytes # (auto) 1.13 K/uL (0.11-0.59); Monocytes % (auto) 14.6 %; Neutrophils % (auto) 60.5 %; Platelet Count 161 K/uL (130-400); RDW Coefficient of Variation 13.4 % (11.5-14.5); RDW Standard Deviation 45.5 fL (36.4-46.3); Red Blood Count 4.73 M/uL (4.7-6.1); White Blood Count 7.76 K/uL (4.8-10.8)
[2020-07-10 15:48] LABS: Base Excess VBG 5.5 mEq/L; HCO3 VBG 31 mmol/L; PCO2 VBG 48 mmHg (38-50); PO2 VBG 22 mmHg; pH VBG 7.43 (7.36-7.41)
[2020-07-10 15:49] LABS: Oxygen Saturation VBG < 60.0 %
[2020-07-10 16:01] LABS: BUN Creatinine Ratio 24.8 (10-20); Blood Urea Nitrogen 25 mg/dl (7-18); Calcium 8.7 mg/dl (8.5-10.1); Carbon Dioxide 32 mmol/L (21-32); Chloride 103 mmol/L (98-107); Creatinine Clr Calc Pharmacy 64.8 ml/min; Est GFR (African American) 86.3; Est GFR (Non-African American) 74.5; Glucose 77 mg/dl (70-99); Lipase 112 U/L (73-393); Magnesium 2.3 mg/dl (1.8-2.4); Potassium 4.1 mmol/L (3.5-5.1); Sodium 137 mmol/L (136-145)
[2020-07-10 16:02] LABS: INR 1.1 (0.9-1.1); Partial Thromboplastin Ratio 1.1; Partial Thromboplastin Time 28.4 Seconds (21.0-31.0); Prothrombin Time 11.1 Seconds (9.0-12.0)
--- NOTE | 2020-07-10 16:05 | CT Scan Report ---
CT head/brain wo con CLINICAL HISTORY: Arm weakness. Difficulty with speech. Recent brain surgery. COMPARISON STUDY: 06/28/2020 TECHNIQUE: Axial CT of the brain is performed from the vertex to the skull base. IV contrast was not administered for this examination. A dose lowering technique was utilized adhering to the principles of ALARA. CT DOSE: 1084.37 mGycm FINDINGS: There are postsurgical changes of a right frontotemporal craniotomy. There are overlying skin joan . There has been resolution of the previously identified pneumocephalus. There is persistent but decr easing extra-axial fluid. There is right temporal lobe encephalomalacia consistent with prior resecti on. There is no CT evidence of acute cortical infarction. There is no hydrocephalus. There is no sign ificant midline shift. There is no evidence of acute sinusitis IMPRESSION: 1. 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 Resolution of the previously identified pneumocephalus 3. Persistent but decreasing extra-axial fluid. 4. No acute findings. ACT 112: Negative or not required by law. Electronically signed by: Omid Schneider M.D. 07/10/2020 4:04 PM
[2020-07-10 16:06] LABS: Troponin I < 0.015 ng/ml (0-0.045)
[2020-07-10 16:21] LABS: Appearance Urine Clear (Clear); Bilirubin Urine Negative (Negative); Blood Urine Negative (Negative); Color Urine Yellow; Glucose Urine UA Negative (Negative); Ketones Urine 1+ (Negative); Leukocyte Esterase Urine Negative (Negative); Nitrite Urine Negative (Negative); Protein Urine Negative (Negative); Specific Gravity Urine 1.022 (1.000-1.030); Urobilinogen Urine Negative (Negative)
--- NOTE | 2020-07-10 17:01 | Emergency Department Note ---
History of Present Illness General Chief complaint: Weakness Time Seen by Provider: 07/10/20 15:09 Source: patient, EMS and RN notes reviewed Limitations: altered mental status History of Present Illness Provider complaint: Weakness altered mental status 69-year-old male presents emergency department for weakness and altered mental status. Per EMS and nursing spoke with EMS, the patient has not been able to take any of his home medications for last 2 days. Patient is disoriented not able to answer any questions at this time. Home Medications Medication Instructions Recorded Confirmed Type Lantus Solostar U-100 Insulin 20 unit SUBCUT HS 06/18/18 07/10/20 History amlodipine 10 mg PO DAILY 06/18/18 07/10/20 History finasteride 5 mg PO QAM 06/18/18 07/10/20 History pantoprazole 40 mg PO QAM 06/18/18 07/10/20 History tamsulosin 0.4 mg PO DAILY 06/18/18 07/10/20 History multivitamin 1 tab PO DAILY 08/21/19 07/10/20 History carvedilol 3.125 mg PO DAILY 06/09/20 07/10/20 History gabapentin 300 mg PO HS 06/09/20 07/10/20 History losartan 100 mg PO DAILY 06/28/20 07/10/20 History methocarbamol 500 mg PO BID 06/28/20 07/10/20 History divalproex 750 mg PO Q8H 07/10/20 07/10/20 History insulin aspart U-100 [Novolog 0 unit SUBCUT DIRECTED 07/10/20 07/10/20 History Flexpen U-100 Insulin] levetiracetam 2,000 mg PO BID 07/10/20 07/10/20 History rivaroxaban [Xarelto] 20 mg PO DAILY 07/10/20 07/10/20 History sennosides [Mitali-arnaud] 17.2 mg PO DAILY 07/10/20 07/10/20 History Allergies Allergy/AdvReac Type Severity Reaction Status Date / Time erythromycin base Allergy Unknown PT NOT SURE Verified 07/10/20 16:48 Past Med/Surg History Medical History (Updated 07/10/20 @ 17:24 by Tyron Mathur) Anxiety Barretts esophagus BPH (benign prostatic hyperplasia) DM type 2 (diabetes mellitus, type 2) Dyslipidemia History of agent [place] exposure History of DVT (deep vein thrombosis) L LEG 1.5 YR AGO History of pulmonary embolism BILATERAL - 1.5 YR AGO Hypertension SOB (shortness of breath) on exertion Surgical History H/O shoulder surgery R X 2 - MOST RECENT: DEC 2018 History of anesthesia reaction REMOTE HX - WITH ONE SURGERY (PT UNSURE WHAT SURGERY) - SLEPT FOR 2 DAYS AFTER, NO -RE-OCCURENCE History of appendectomy History of cataract surgery LEFT History of colonoscopy History of endoscopy History of foot surgery L History of tonsillectomy and adenoidectomy Family History Father Diabetes Sister Cancer Social History Smoking Status: Never smoker Tobacco Type: Cigarettes Second Hand Exposure: No; Hx Alcohol Use: Yes Alcohol type: beer Hx Substance Use: No Preferred Language: Uzbek Communication Ability: Effective 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 Required: No Beliefs That Will Affect Care: None marital status: Current Living Situation: Family Feels Safe at Home: Yes Assistive Devices: None Review of Systems Unable to obtain due to altered mental status Physical Exam Vital Signs Vital Signs - 24 hr 07/10/20 14:21 07/10/20 14:25 07/10/20 14:30 Temperature 36.8 C Temperature Source Oral Pulse Rate 72 73 70 Pulse Rate from SpO2 Sensor 72 70 Pulse Rhythm Regular Respiratory Rate 14 16 15 Respiratory Effort / Characteristics Non-Labored Respiratory Depth Normal Respiratory Pattern Regular Blood Pressure 157/91 H 157/89 H Blood Pressure Mean 113 111 Blood Pressure Position Lying Pulse Oximetry 97 97 97 Oxygen Delivery Method Room Air Sepsis Recent Fever Within 48 Hours No Sepsis New/Unexplained Change in Mental Status N/A Sepsis Action Taken by Nursing No Action Required 07/10/20 14:53 07/10/20 15:00 07/10/20 15:30 Temperature Temperature Source Pulse Rate 67 70 Pulse Rate from SpO2 Sensor 67 Pulse Rhythm Respiratory Rate 14 12 Respiratory Effort / Characteristics Respiratory Depth Respiratory Pattern Blood Pressure Blood Pressure Mean Blood Pressure Position Pulse Oximetry 98 Oxygen Delivery Method Room Air Sepsis Recent Fever Within 48 Hours Sepsis New/Unexplained Change in Mental Status Sepsis Action Taken by Nursing 07/10/20 16:52 Temperature Temperature Source Pulse Rate 63 Pulse Rate from SpO2 Sensor Pulse Rhythm Respiratory Rate 20 Respiratory Effort / Characteristics Respiratory Depth Respiratory Pattern Blood Pressure 156/85 H Blood Pressure Mean 108 Blood Pressure Position Pulse Oximetry 97 Oxygen Delivery Method Sepsis Recent Fever Within 48 Hours Sepsis New/Unexplained Change in Mental Status Sepsis Action Taken by Nursing Physical Exam HENT: Exam performed. - Head: [place] in place over the right frontotemporal area. No surrounding erythema or discharge. - Right Ear: External ear normal. No mastoid tenderness. - Left Ear: External ear normal. No mastoid tenderness. - Mouth/Throat: The oropharynx is clear and moist. No trismus in the jaw. No dental abscesses or uvula swelling. No oropharyngeal exudate or tonsillar abscesses. EYES: Pupils are equal, round, and reactive to light. Right eye exhibits no discharge. Left eye exhibits no discharge. No scleral icterus. NECK: Normal range of motion. Neck supple. No JVD present. No spinous process tenderness present. No carotid bruit present. No rigidity. No tracheal deviation and normal range of motion present. CV: Normal rate, regular rhythm, normal heart sounds and intact distal pulses. There is no peripheral edema. Palpable radial pulses bue. PULM/CHEST: Effort normal and breath sounds normal. No respiratory distress. No stridor. He has no wheezes. He has no rales. - Chest Wall: He exhibits no tenderness. ABD: The abdomen is soft. MUSC/SKEL: Normal range of motion. There is no peripheral edema, tenderness or deformity. LYMPH: No cervical adenopathy. NEURO: He is alert and but not oriented. He has normal strength. No cranial nerve deficit or sensory deficit. Course Course 1509: The patient was evaluated in room C6. A complete history and physical exam was performed Cardiac monitoring: An order was placed for continuous cardiac monitoring. The monitor shows a rate of 70 with sinus rhythm 1631: Records were obtained by Mona tidwell from the [facility] EMR. 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 Patient was admitted to the [facility] in [place] from June 29 July 04. Patient was transferred there on June 29 for possible hygromas and possible strokelike symptoms. The patient was evaluated by neurosurgery was felt that those were normal postoperative changes. Patient was transferred from neurosurgery to the medicine service. Discharge summary states that the patient was admitted and found to have seizure-like activity during LTM. He had antiepileptic medications were adjusted to the point where he was free of seizures for gram 24 hours prior to discharge. His mental status improved to baseline. Patient was also found to have steroid-induced hyperglycemia. Vital signs stable. Labs and imaging are within normal limits. Patient remains arousable but still disoriented. Spoke with neurology on-call for [facility] Dr. Valentine who recommends we obtain ammonia, procalcitonin, prolactin, lactic acid, blood cultures and valproic acid level. He also recommends the patient have a MRI of the brain with and without contrast as well as blood cultures. I stated I did not feel that the patient should be discharged home. He states patient can be admitted to have the MRI done non emergently and have an EEG done in the morning. Discussed this with the patient's at bedside who is in agreement. 1655: Spoke with hospitalist Radha ferguson RETIREMENT ASSISTANT who states her team feels uncomfortable admitting the patient and that the patient should be transferred to [facility] for continuity of care and possible continuous video EEG. She states that she spoke with the neurologist on-call also who I spoke with Dr. Valentine who agreed with her. We will attempt to contact [facility] neurology. 1712: Spoke with Dr. Leary [facility] neurology at [place] who knows the patient well and states that the patient could be having focal seizures. The transfer center and him both state that there is a low availability of beds at [facility]. Dr. Leary states that the patient needs a routine EEG. He states that is what they would do at [facility]. He states that if the routine EEG is abnormal then he would proceed with a continuous video EEG. Given the bed shortage at [facility], he feels that if the patient could be admitted to have a routine EEG done at this facility it would be beneficial for the patient as it will be the likely prolonged transfer and the patient might not need a continuous video EEG. He states that if the patient could be admitted here and the routine EEG shows any abnormalities then the patient can be transferred down to [place] for continuous video EEG. I did discuss this with Radha ferguson RETIREMENT ASSISTANT who states they can now accept the patient. Admit to Dr. Robledo Administered Medications Discontinued Medications Sodium Chloride (Nss 1000ml) 500 mls @ 999 mls/hr IV .Q31M ONE Stop: 07/10/20 15:53 Last Infusion: 07/10/20 17:01 Dose: 0 mls/hr Documented by: [id number] Admin: 07/10/20 15:49 Dose: 999 mls/hr Documented by: [id number] Medical Decision Making Laboratory Data Result diagrams: 07/10/20 15:29 07/10/20 15:29 Lab Results 07/10/20 07/10/20 07/10/20 Range/Units 15:06 15:29 15:29 WBC 7.76 (4.8-10.8) K/uL RBC 4.73 (4.7-6.1) M/uL Hgb 14.8 (14.0-18.0) g/dL Hct 43.6 (42-52) % MCV 92.2 (80-100) fL MCH 31.3 (25-34) pg MCHC 33.9 (32-36) g/dL RDW Std Deviation 45.5 (36.4-46.3) fL RDW Coeff of Diandra 13.4 (11.5-14.5) % Plt Count 161 (130-400) K/uL MPV 10.0 (7.4-10.4) fL Immature Gran % (Auto) 1.2 % Neut % (Auto) 60.5 % Lymph % (Auto) 21.5 % [place] % (Auto) 14.6 % Eos % (Auto) 2.1 % Baso % (Auto) 0.1 % Neut # (Auto) 4.70 (1.4-6.5) K/uL Lymph # (Auto) 1.67 (1.2-3.4) K/uL [place] # (Auto) 1.13 H (0.11-0.59) K/uL Eos # (Auto) 0.16 (0-0.5) K/uL Baso # (Auto) 0.01 (0-0.2) K/uL Immature Gran # (Auto) 0.09 H (0.00-0.02) K/uL PT 11.1 (9.0-12.0) Seconds INR 1.1 (0.9-1.1) APTT 28.4 (21.0-31.0) Seconds PTT Ratio 1.1 VBG pH (7.36-7.41) VBG pCO2 (38-50) mmHg VBG pO2 mmHg VBG HCO3 mmol/L VBG O2 Saturation % VBG Base Excess mEq/L Barometric Pressure mm/Hg Sodium (136-145) mmol/L Potassium (3.5-5.1) mmol/L Chloride (98-107) mmol/L Carbon Dioxide (21-32) mmol/L Anion Gap (3-11) BUN (7-18) mg/dl Creatinine (0.6-1.4) mg/dl Est Cr Clr Drug Dosing ml/min Est GFR ( Amer) Est GFR (Non-Af Amer) BUN/Creatinine Ratio (10-20) Glucose (70-99) mg/dl POC Glucose 71 (70-99) mg/dl Calcium (8.5-10.1) mg/dl Magnesium (1.8-2.4) mg/dl Troponin I (0-0.045) ng/ml Lipase (73-393) U/L Urine Color Urine Appearance (Clear) Urine pH (4.5-7.5) Ur Specific [place] (1.000-1.030) Urine Protein (Negative) Urine Glucose (UA) (Negative) Urine Ketones (Negative) Urine Blood (Negative) Urine Nitrite (Negative) Urine Bilirubin (Negative) Urine Urobilinogen (Negative) Ur Leukocyte Esterase (Negative) COVID-19 Eval Order 07/10/20 07/10/20 07/10/20 Range/Units 15:29 15:29 15:45 WBC (4.8-10.8) K/uL RBC (4.7-6.1) M/uL Hgb (14.0-18.0) g/dL Hct (42-52) % MCV (80-100) fL MCH (25-34) pg MCHC (32-36) g/dL RDW Std Deviation (36.4-46.3) fL RDW Coeff of Diandra (11.5-14.5) % Plt Count (130-400) K/uL MPV (7.4-10.4) fL Immature Gran % (Auto) % Neut % (Auto) % Lymph % (Auto) % [place] % (Auto) % Eos % (Auto) % Baso % (Auto) % Neut # (Auto) (1.4-6.5) K/uL Lymph # (Auto) (1.2-3.4) K/uL [place] # (Auto) (0.11-0.59) K/uL Eos # (Auto) (0-0.5) K/uL Baso # (Auto) (0-0.2) K/uL Immature Gran # (Auto) (0.00-0.02) K/uL PT (9.0-12.0) Seconds INR (0.9-1.1) APTT (21.0-31.0) Seconds PTT Ratio VBG pH 7.43 H (7.36-7.41) VBG pCO2 48 (38-50) mmHg VBG pO2 22 mmHg VBG HCO3 31 mmol/L VBG O2 Saturation < 60.0 % VBG Base Excess 5.5 mEq/L Barometric Pressure 731.2 mm/Hg Sodium 137 (136-145) mmol/L Potassium 4.1 (3.5-5.1) mmol/L Chloride 103 (98-107) mmol/L Carbon Dioxide 32 (21-32) mmol/L Anion Gap 2.0 L (3-11) BUN 25 H (7-18) mg/dl Creatinine 1.01 (0.6-1.4) mg/dl Est Cr Clr Drug Dosing 64.8 ml/min Est GFR ( Amer) 86.3 Est GFR (Non-Af Amer) 74.5 BUN/Creatinine Ratio 24.8 H (10-20) Glucose 77 (70-99) mg/dl POC Glucose (70-99) mg/dl Calcium 8.7 (8.5-10.1) mg/dl Magnesium 2.3 (1.8-2.4) mg/dl Troponin I < 0.015 (0-0.045) ng/ml Lipase 112 (73-393) U/L Urine Color Yellow Urine Appearance Clear (Clear) Urine pH 7.0 (4.5-7.5) Ur Specific [place] 1.022 (1.000-1.030) Urine Protein Negative (Negative) Urine Glucose (UA) Negative (Negative) Urine Ketones 1+ H (Negative) Urine Blood Negative (Negative) Urine Nitrite Negative (Negative) Urine Bilirubin Negative (Negative) Urine Urobilinogen Negative (Negative) Ur Leukocyte Esterase Negative (Negative) COVID-19 Eval Order 07/10/20 Range/Units 16:55 WBC (4.8-10.8) K/uL RBC (4.7-6.1) M/uL Hgb (14.0-18.0) g/dL Hct (42-52) % MCV (80-100) fL MCH (25-34) pg MCHC (32-36) g/dL RDW Std Deviation (36.4-46.3) fL RDW Coeff of Diandra (11.5-14.5) % Plt Count (130-400) K/uL MPV (7.4-10.4) fL Immature Gran % (Auto) % Neut % (Auto) % Lymph % (Auto) % [place] % (Auto) % Eos % (Auto) % Baso % (Auto) % Neut # (Auto) (1.4-6.5) K/uL Lymph # (Auto) (1.2-3.4) K/uL [place] # (Auto) (0.11-0.59) K/uL Eos # (Auto) (0-0.5) K/uL Baso # (Auto) (0-0.2) K/uL Immature Gran # (Auto) (0.00-0.02) K/uL PT (9.0-12.0) Seconds INR (0.9-1.1) APTT (21.0-31.0) Seconds PTT Ratio VBG pH (7.36-7.41) VBG pCO2 (38-50) mmHg VBG pO2 mmHg VBG HCO3 mmol/L VBG O2 Saturation % VBG Base Excess mEq/L Barometric Pressure mm/Hg Sodium (136-145) mmol/L Potassium (3.5-5.1) mmol/L Chloride (98-107) mmol/L Carbon Dioxide (21-32) mmol/L Anion Gap (3-11) BUN (7-18) mg/dl Creatinine (0.6-1.4) mg/dl Est Cr Clr Drug Dosing ml/min Est GFR ( Amer) Est GFR (Non-Af Amer) BUN/Creatinine Ratio (10-20) Glucose (70-99) mg/dl POC Glucose (70-99) mg/dl Calcium (8.5-10.1) mg/dl Magnesium (1.8-2.4) mg/dl Troponin I (0-0.045) ng/ml Lipase (73-393) U/L Urine Color Urine Appearance (Clear) Urine pH (4.5-7.5) Ur Specific [place] (1.000-1.030) Urine Protein (Negative) Urine Glucose (UA) (Negative) Urine Ketones (Negative) Urine Blood (Negative) Urine Nitrite (Negative) Urine Bilirubin (Negative) Urine Urobilinogen (Negative) Ur Leukocyte Esterase (Negative) COVID-19 Eval Order CovFluRsv at [facility] Imaging Data Radiologist's Impression: Head CT 07/10/20 15:15 CT head/brain wo con CLINICAL HISTORY: Arm weakness. Difficulty with speech. Recent brain surgery. COMPARISON STUDY: 06/28/2020 TECHNIQUE: Axial CT of the brain is performed from the vertex to the skull base. IV contrast was not administered for this examination. A dose lowering technique was utilized adhering to the principles of ALARA. CT DOSE: 1084.37 mGycm FINDINGS: There are postsurgical changes of a right frontotemporal craniotomy. There are overlying skin joan. There has been resolution of the previously identified pneumocephalus. There is persistent but decreasing extra-axial fluid. 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 There is no CT evidence of acute cortical infarction. There is no hydrocephalus. There is no significant midline shift. There is no evidence of acute sinusitis IMPRESSION: 1. 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 Resolution of the previously identified pneumocephalus 3. Persistent but decreasing extra-axial fluid. 4. No acute findings. ACT 112: Negative or not required by law. Electronically signed by: Omid Schneider M.D. 07/10/2020 4:04 PM ECG Data Indication: + altered mental status Rate (beats per minute): 66 Rhythm: + normal sinus ECG Intervals/blocks: + First degree AV block, + Normal QRS and + Normal QT-c ECG ST segments: + Normal ST segments [facility] Narrative 1509: The patient was evaluated in room C6. A complete history and physical exam was performed Cardiac monitoring: An order was placed for continuous cardiac monitoring. The monitor shows a rate of 70 with sinus rhythm 1631: Vital signs stable. Labs and imaging are within normal limits. Patient remains arousable but still disoriented. Spoke with neurology on-call for [facility] who recommends we obtain ammonia, procalcitonin, prolactin, lactic acid, blood cultures and valproic acid level. He also recommends the patient have a MRI of the brain with and without contrast as well as blood cultures. I stated I did not feel that the patient should be discharged home. He states patient can be admitted to have the MRI done non emergently and have an EEG done in the morning. Discussed this with the patient's at bedside who is in agreement. 1655: Spoke with hospitalist Radha ferguson RETIREMENT ASSISTANT who states her team feels uncomfortable admitting the patient and that the patient should be transferred to [facility] for continuity of care and possible continuous video EEG. She states that she spoke with the neurologist on-call also who I spoke with Dr. Valentine who agreed with her. We will attempt to contact [facility] neurology. 171: Spoke with Dr. Leary [facility] neurology at [place] who knows the patient well and states that the patient could be having focal seizures. The transfer center and him both state that there is a low availability of beds at [facility]. Dr. Leary states that the patient needs a routine EEG. He states that is what they would do at [facility]. He states that if the routine EEG is abnormal then he would proceed with a continuous video EEG. Given the bed shortage at [facility], he feels that if the patient could be admitted to have a routine EEG done at this facility it would be beneficial for the patient as it will be the likely prolonged transfer and the patient might not need a continuous video EEG. He states that if the patient could be admitted here and the routine EEG shows any abnormalities then the patient can be transferred down to [place] for continuous video EEG. I did discuss this with Radha ferguson RETIREMENT ASSISTANT who states they can now accept the patient. Admit to Dr. Robledo Impression & Plan Acute alteration in mental status Discharge Plan Visit Data Chief Complaint: Weakness ED Provider: Tyron Mathur Discharge Problem: Acute alteration in mental status Patient Disposition: Admitted As Inpatient Forms Stand Alone Forms: My [facility] Prescriptions Prescriptions: No Action multivitamin Tablet 1 tab PO DAILY RF: 0 amlodipine 10 mg Tablet 10 mg PO DAILY RF: 0 finasteride 5 mg Tablet 5 mg PO QAM RF: 0 pantoprazole 40 mg Tablet,Delayed Release (Dr/Ec) 40 mg PO QAM RF: 0 tamsulosin 0.4 mg Capsule 0.4 mg PO DAILY RF: 0 Lantus Solostar U-100 Insulin 100 unit/mL (3 mL) Insulin Pen 20 unit SUBCUT HS RF: 0 gabapentin 300 mg capsule 300 mg PO HS RF: 0 carvedilol 3.125 mg tablet 3.125 mg PO DAILY RF: 0 losartan 50 mg Tablet 100 mg PO DAILY RF: 0 methocarbamol 500 mg Tablet 500 mg PO BID RF: 0 sennosides [Mitali-arnaud] 8.6 mg Tablet 17.2 mg PO DAILY RF: 0 divalproex 250 mg tablet,delayed release (DR/EC) 750 mg PO Q8H RF: 0 insulin aspart U-100 [Novolog Flexpen U-100 Insulin] 100 unit/mL (3 mL) insulin pen 0 unit SUBCUT DIRECTED RF: 0 levetiracetam 1,000 mg tablet 2,000 mg PO BID RF: 0 Xarelto 20 mg tablet 20 mg PO DAILY RF: 0 Referrals Referrals: Apolinar Wayne DO [Primary Care Provider] -
--- NOTE | 2020-07-10 17:54 | History & Physical Report ---
Date of Service July 10, 2020 Assessment & Plan (1) Acute metabolic encephalopathy: Increased generalized weakness, fatigue and intermittent disorientation after recent discharge from the hospital. History of seizures recently placed on Keppra and Depakote. Patient has not been tolerating oral medications including AED medication in the last 48 hours. was able to get medications in him this morning, but he has not eaten much secondary to extreme fatigue. He is oriented at this time to date and person but not to location. Initial work- up including blood work and urine revealed no evidence of acute infection as a cause for symptoms. Initial head CT also shows improvement/stability from prior head CT with no evidence of acute stroke. No significant neurologic deficits on exam. Overwhelming fatigue present and patient requires significant prompting to perform certain tasks. states for example patient has trouble switching on a light. Suspect etiology may be related to pharmacologic side effect/questionable subclinical seizure activity/other intracranial event. Continue current AED regimen as tolerated. MRI brain with and without contrast overnight. EEG in a.m. Neuro consult. Of note, patient recently discharged from [facility], however, transfer declined at this time secondary to low bed availability. Advised by neurology at [facility] to obtain routine EEG and follow-up with results. We will also hold methocarbamol which was prescribed in post-ope rative setting. (2) Weakness: (3) Fatigue: (4) Seizure: History of seizures status post brain tumor removal. Continue Depakote and Keppra per home regimen. Valproic acid level within normal range. (5) History of pulmonary embolism: Patient on chronic Xarelto, recently restarted 4 days ago. (6) DM type 2 (diabetes mellitus, type 2): Continue basal/bolus insulin while hospitalized to maintain euglycemia. (7) BPH (benign prostatic hyperplasia): Continue tamsulosin per home regimen. (8) DVT prophylaxis: SCDs/Xarelto Full code as discussed with on admission Disposition-PCU Kendra Robledo DO [facility] Hospitalist History of Present Illness Chief Complaint: Altered mental status worsening fatigue Primary Care Provider: Apolinar Wayne DO The patient is a 69-year-old man with a recent history of glioblastoma multiform removal on 06/24/2020 at [facility] who presents with new onset altered mental status and worsening fatigue for the last 2 days. He was discharged from the hospital after his surgery, became altered and presented again to [facility] ER on 06/29 where he was transferred to [facility]. During this hospitalization continuous EEG monitoring revealed intermittent seizures. Antiepileptic medications were titrated and he was ultimately discharged on 07/04 to home. This was last Tuesday. reports over the weekend and especially Tuesday the patient looked good and was ambulating and mentating at his baseline. Tuesday night however, he became more fatigued and began to stare through her on occasion. He appeared to glaze over for several seconds at a time and then proceeded to say words that were clear but demonstrated disorientation. Questionable hallucination was present. Since Tuesday night he has remained very fatigued and has slept most of the day. He has been apathetic to food. The patient denies any pain, difficulty swallowing, headache, visual issues, or other concerns. He is oriented to person and time but thinks he is in [facility] [address]. He was able to swallow his morning pills this morning but otherwise has not tolerated anything by mouth for the last 48 hours including his medications. The patient denies any nausea or vomiting or upset stomach. His Xarelto was recently started around 4 to 5 days ago, with initial CT scan of the head revealing no evidence of ramandeep hemorrhage. 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 reports he is supposed to stay on lifelong anticoagulation. Keppra is a sedating medication which is new for him and there have been some other minor medication changes. He was also given methocarbamol by his surgeon for presumed neck spasms, which states he has not had. The dosage on this has been reduced, however we discussed holding this altogether. Urinalysis appears clear. There are no respiratory symptoms, no fevers or chills reported. Lab work is not supportive of infection as a cause for the change. Allergies Allergy/AdvReac Type Severity Reaction Status Date / Time erythromycin base AdvReac Unknown nausea/vomi Verified 07/10/20 18:25 ting Home Medications Medication Instructions Recorded Confirmed Type Lantus Solostar U-100 Insulin 20 unit SUBCUT HS 06/18/18 07/10/20 History amlodipine 10 mg PO DAILY 06/18/18 07/10/20 History finasteride 5 mg PO QAM 06/18/18 07/10/20 History pantoprazole 40 mg PO QAM 06/18/18 07/10/20 History tamsulosin 0.4 mg PO DAILY 06/18/18 07/10/20 History multivitamin 1 tab PO DAILY 08/21/19 07/10/20 History carvedilol 3.125 mg PO DAILY 06/09/20 07/10/20 History gabapentin 300 mg PO HS 06/09/20 07/10/20 History losartan 100 mg PO DAILY 06/28/20 07/10/20 History methocarbamol 500 mg PO BID 06/28/20 07/10/20 History divalproex 750 mg PO Q8H 07/10/20 07/10/20 History insulin aspart U-100 [Novolog 0 unit SUBCUT DIRECTED 07/10/20 07/10/20 History Flexpen U-100 Insulin] levetiracetam 2,000 mg PO BID 07/10/20 07/10/20 History rivaroxaban [Xarelto] 20 mg PO DAILY 07/10/20 07/10/20 History sennosides [Mitali-arnaud] 17.2 mg PO DAILY 07/10/20 07/10/20 History Past Med/Surg History Medical History Anxiety Barretts esophagus BPH (benign prostatic hyperplasia) DM type 2 (diabetes mellitus, type 2) Dyslipidemia History of agent [place] exposure History of DVT (deep vein thrombosis) L LEG 1.5 YR AGO History of pulmonary embolism BILATERAL - 1.5 YR AGO Hypertension SOB (shortness of breath) on exertion Surgical History H/O shoulder surgery R X 2 - MOST RECENT: DEC 2018 History of anesthesia reaction REMOTE HX - WITH ONE SURGERY (PT UNSURE WHAT SURGERY) - SLEPT FOR 2 DAYS AFTER, NO -RE-OCCURENCE History of appendectomy History of cataract surgery LEFT History of colonoscopy History of endoscopy History of foot surgery L History of tonsillectomy and adenoidectomy S/P brain surgery Family History Father Diabetes Sister Cancer Social History Smoking Status: Never smoker Tobacco Type: Cigarettes Second Hand Exposure: No; Hx Alcohol Use: Yes Alcohol type: beer Hx Substance Use: No Preferred Language: Ivorian Communication Ability: Effective Box Finisher Required: No Beliefs That Will Affect Care: None marital status: Current Living Situation: Family Feels Safe at Home: Yes Assistive Devices: None Review of Systems Review of Systems: All systems reviewed & are unremarkable except as noted in HPI & below Physical Exam Physical Exam: CONSTITUTIONAL: WNWD, vitals as above, generally appears fatigued but is following commands and is in NAD. EYES: EOMI bilaterally-although he could demonstrate this in all planes, he required significant prompting to perform each task, PERRL, normal conjunctivae, no scleral icterus, no fundoscopic abnormality ENT: external ear and nose normal, oropharynx clear NECK: trachea midline RESPIRATORY: clear to auscultation bilaterally, no crackles, rales or wheezes, normal respiratory effort CARDIOVASCULAR: regular rate and rhythm, S1 and 2 heard without murmurs, gallops or rubs, no JVD, no peripheral edema GASTROINTESTINAL: soft, nontender, nondistended, no guarding. MUSCULOSKELETAL: strength 5/5 throughout, able to move all extremities equally, head is normocephalic and atraumatic. Tried to sit him up on side of bed but he eased himself back down on his back. Did not pursue additional trial of this. Requires minimal assistance. SKIN: warm and dry NEUROLOGIC: patellar DTRs 2+ bilat. brachioradialis reflex was 2/4 bilat, PERRL, EOMI, no facial palsy, no dysarthria. CN 2-12 grossly intact, no sensory deficit, sleepy but easily arousable and following commands, normal speech, no tremor. Timmy performed well but slowly, finger to nose assessment performed accurately but with time. Heel to funes performed accurately bilaterally. PSYCHIATRIC: alert cooperative and oriented to person, place and time. Results & Data Results & Data ([facility]) Vital Signs (Past 12 Hours) Vital Signs Temp Pulse Resp BP Pulse Ox 07/10/20 16:52 63 20 156/85 H 97 07/10/20 15:30 70 12 07/10/20 15:00 67 14 98 07/10/20 14:30 70 15 97 07/10/20 14:25 36.8 C 73 16 157/89 H 97 07/10/20 14:21 72 14 157/91 H 97 Laboratory Results Short CBC 07/10/20 Range/Units 15:29 WBC 7.76 (4.8-10.8) K/uL Hgb 14.8 (14.0-18.0) g/dL Hct 43.6 (42-52) % Plt Count 161 (130-400) K/uL BMP 07/10/20 15:29 Sodium 137 Potassium 4.1 Chloride 103 Carbon Dioxide 32 BUN 25 H Creatinine 1.01 Glucose 77 Calcium 8.7 Cardiac Enzymes 07/10/20 Range/Units 15:29 Troponin I < 0.015 (0-0.045) ng/ml Urine 07/10/20 Range/Units 15:45 Urine Color Yellow Urine Appearance Clear (Clear) Urine pH 7.0 (4.5-7.5) Ur Specific [place] 1.022 (1.000-1.030) Urine Protein Negative (Negative) Urine Glucose (UA) Negative (Negative)
[2020-07-10 18:25] LABS: Influenza A virus by PCR Negative (Neg); Influenza B virus by PCR Negative (Neg); RSV by PCR Negative (Neg); SARS CoV2 RNA(COVID-19) InHosp NEGATIVE (Negative)
[2020-07-10] MEDS ORDERED: ACETAMINOPHEN 325 MG TAB PO PRN (20:21)
[2020-07-10] MEDS ORDERED: hydrALAZINE HCL 20 MG/ML VIAL IV STA (21:03)
[2020-07-10] MEDS: levETIRAcetam 500 MG TAB PO SCH (21:28)
[2020-07-10] MEDS: DIVALPROEX DELAY RELEASE 250 MG TABEC PO SCH (21:29)
[2020-07-11] MEDS: DIVALPROEX DELAY RELEASE 250 MG TABEC PO SCH ×3 (05:09→21:53)
[2020-07-11 07:11] LABS: Hematocrit (blood only) 42.9 % (42-52); Hemoglobin 14.7 g/dL (14.0-18.0); Mean Corpuscular Hemoglobin 31.4 pg (25-34); Mean Corpuscular Hgb Conc 34.3 g/dL (32-36); Mean Corpuscular Volume 91.7 fL (80-100); Mean Platelet Volume 10.4 fL (7.4-10.4); Platelet Count 160 K/uL (130-400); RDW Coefficient of Variation 13.5 % (11.5-14.5); RDW Standard Deviation 45.2 fL (36.4-46.3); Red Blood Count 4.68 M/uL (4.7-6.1); White Blood Count 8.89 K/uL (4.8-10.8)
[2020-07-11 07:44] LABS: BUN Creatinine Ratio 21.1 (10-20); Calcium 8.4 mg/dl (8.5-10.1); Creatinine Clr Calc Pharmacy 61.6 ml/min; Est GFR (African American) 91.8; Est GFR (Non-African American) 79.2; Magnesium 2.1 mg/dl (1.8-2.4); Phosphorus 2.8 mg/dl (2.5-4.9); Potassium 3.8 mmol/L (3.5-5.1)
[2020-07-11] MEDS: levETIRAcetam 500 MG TAB PO SCH ×2 (08:40→21:53)
[2020-07-11] MEDS: SENNA 8.6 MG TAB PO SCH (08:40)
[2020-07-11] MEDS: FINASTERIDE 5 MG TAB PO SCH (08:40)
[2020-07-11] MEDS: LOSARTAN POTASSIUM 50 MG TAB PO SCH (08:40)
[2020-07-11] MEDS: amLODIPine BESYLATE 5 MG TAB PO SCH (08:40)
[2020-07-11] MEDS: PANTOprazole 40 MG TAB PO SCH (08:40)
[2020-07-11] MEDS: TAMSULOSIN HCL 0.4 MG CAP PO SCH (08:40)
[2020-07-11] MEDS: carvediloL 3.125 MG TAB PO SCH (08:40)
[2020-07-11] MEDS: MULTIVITAMIN TAB PO SCH (08:40)
[2020-07-11] MEDS ORDERED: ALPRAZolam 0.5 MG TABLET PO PRN (11:04)
--- NOTE | 2020-07-11 12:58 | Electrocardiogram Report ---
Test Reason : Blood Pressure : / mmHG Vent. Rate : 066 BPM Atrial Rate : 066 BPM P-R Int : 214 ms QRS Dur : 088 ms QT Int : 394 ms P-R-T Axes : 045 041 053 degrees QTc Int : 413 ms Sinus rhythm with 1st degree A-V block Otherwise normal ECG When compared with ECG of 28-JUN-2020 23:35, No significant change was found Confirmed by Sae Tello ([id number]) on 07/11/2020 12:57:56 PM Referred By: REFERRED SELF Confirmed By:Epi Tello
--- NOTE | 2020-07-11 13:03 | Hospitalist Progress Note ---
Date of Service July 11, 2020 Assessment & Plan (1) Acute metabolic encephalopathy: Increased generalized weakness, fatigue and intermittent disorientation after recent discharge from the hospital. History of seizures recently placed on Keppra and Depakote. EEG revealed generalized slowing, and patient has not had any significant seizure activity that is clear this admission. Still with some fatigue that is more than his normal baseline. May be related to his surgery. Continue to monitor on telemetry per neurology recommendations. Continue current AED medications. brain MRI without contrast was compromised by motion artifact but there was no evidence of acute infarction. Stable postoperative findings in the right temporal lobe were seen and bilateral extra axial fluid collections right larger than left were seen with no evidence of hydrocephalus. (2) Weakness: Still present but patient working with PT and was able to ambulate in the hallways today. (3) Fatigue: Improved but still present. (4) Seizure: History of seizures status post brain tumor removal. No seizures this admission. Continue Depakote and Keppra per home regimen. Valproic acid level within normal range. (5) History of pulmonary embolism: Patient on chronic Xarelto, recently restarted this week with no overt bleeding. (6) DM type 2 (diabetes mellitus, type 2): Continue basal/bolus insulin while hospitalized to maintain euglycemia. (7) BPH (benign prostatic hyperplasia): Continue tamsulosin per home regimen. (8) DVT prophylaxis: SCDs/Xarelto Full code as discussed with on admission Disposition-PCU I was able to contact the by phone and updated her on the plan. All questions answered to her satisfaction. Kendra Robledo DO [facility] Hospitalist Admission and Anticipated Discharge Date Admission Date: July 10, 2020 Subjective 69-year-old man with a history of glioblastoma multiforme removed 06/24 at [facility] presents with new onset altered mental status and worsening fatigue for 2 days. He received Xanax as premedication for an MRI, and is delirious. He is currently on a one-to-one and review of systems is limited. Review of Systems Review of Systems: Unobtainable due to mental health condition Physical Exam Physical Exam: CONSTITUTIONAL: WNWD, vitals as above, generally appears more awake in no acute distress EYES: EOMI bilaterally-although he could demonstrate this in all planes, he required significant prompting to perform each task, pupils are equal and round bilaterally, normal conjunctivae, no scleral icterus ENT: external ear and nose normal, MMM NECK: trachea midline RESPIRATORY: clear to auscultation bilaterally, no crackles, rales or wheezes, normal respiratory effort CARDIOVASCULAR: regular rate and rhythm, S1 and 2 heard without murmurs, gallops or rubs, no JVD, no peripheral edema GASTROINTESTINAL: soft, nontender, nondistended, no guarding. MUSCULOSKELETAL: Generalized weakness, no gross focal deficits. Able to move all extremities equally, head is normocephalic and atraumatic. SKIN: warm and dry, right-sided cranial joan in place NEUROLOGIC: No facial palsy, no dysarthria. CN 2-12 grossly intact PSYCHIATRIC: alert cooperative, delirium present Results & Data Results & Data ([facility]) Vital Signs (Past 12 Hours) Vital Signs Temp Pulse Pulse Resp BP Pulse Ox 07/11/20 11:56 36.7 C 77 18 144/83 H 98 07/11/20 08:00 69 07/11/20 06:55 36.7 C 69 18 163/79 H 95 07/11/20 04:35 36.8 C 67 16 154/88 H 98 Laboratory Results Short CBC 07/10/20 07/11/20 Range/Units 15:29 06:37 WBC 7.76 8.89 (4.8-10.8) K/uL Hgb 14.8 14.7 (14.0-18.0) g/dL Hct 43.6 42.9 (42-52) % Plt Count 161 160 (130-400) K/uL BMP 07/10/20 07/11/20 15:29 06:37 Sodium 137 134 L Potassium 4.1 3.8 Chloride 103 102 Carbon Dioxide 32 29 BUN 25 H 20 H Creatinine 1.01 0.96 Glucose 77 83 Calcium 8.7 8.4 L Cardiac Enzymes 07/10/20 Range/Units 15:29 Troponin I < 0.015 (0-0.045) ng/ml Urine 07/10/20 Range/Units 15:45 Urine Color Yellow Urine Appearance Clear (Clear) Urine pH 7.0 (4.5-7.5) Ur Specific [place] 1.022 (1.000-1.030) Urine Protein Negative (Negative) Urine Glucose (UA) Negative (Negative) Medications Administered Current Inpatient Medications Acetaminophen (Acetaminophen 325 Mg Tab) 650 mg PO Q4H PRN PRN Reason: Pain or Fever Stop: 08/09/20 20:20 Last Admin: 07/10/20 22:03 Dose: 650 mg Documented by: Alprazolam (Alprazolam 0.5 Mg Tablet) 0.5 mg PO UD PRN PRN Reason: premedication for MRI if needed Stop: 08/10/20 11:03 Amlodipine Besylate (Amlodipine Besylate 5 Mg Tab) 10 mg PO DAILY [facility] Stop: 08/10/20 08:59 Last Admin: 07/11/20 08:40 Dose: 10 mg Documented by: Carvedilol (Carvedilol 3.125 Mg Tab) 3.125 mg PO DAILY [facility] Stop: 08/10/20 08:59 Last Admin: 07/11/20 08:40 Dose: 3.125 mg Documented by: Divalproex Sodium (Divalproex Delay Release 250 Mg Tabec) 750 mg PO Q8H [facility] Stop: 08/09/20 21:59 Last Admin: 07/11/20 05:09 Dose: 750 mg Documented by: Finasteride (Finasteride 5 Mg Tab) 5 mg PO QAM [facility] Stop: 08/10/20 08:59 Last Admin: 07/11/20 08:40 Dose: 5 mg Documented by: Gabapentin (Gabapentin 300 Mg Cap) 300 mg PO HS [facility] Stop: 08/10/20 20:59 Levetiracetam (Levetiracetam 500 Mg Tab) 2,000 mg PO BID [facility] Stop: 08/09/20 21:14 Last Admin: 07/11/20 08:40 Dose: 2,000 mg Documented by: Losartan Potassium (Losartan Potassium 50 Mg Tab) 100 mg PO DAILY [facility] Stop: 08/10/20 08:59 Last Admin: 07/11/20 08:40 Dose: 100 mg Documented by: Multivitamins (Multivitamin Tab) 1 tab PO DAILY [facility] Stop: 08/10/20 08:59 Last Admin: 07/11/20 08:40 Dose: 1 tab Documented by: Pantoprazole Sodium (Pantoprazole 40 Mg Tab) 40 mg PO QAM [facility] Stop: 08/10/20 08:59 Last Admin: 07/11/20 08:40 Dose: 40 mg Documented by: Rivaroxaban (Rivaroxaban 20 Mg Tab) 20 mg PO QDD [facility] Stop: 08/10/20 16:29 Sennosides (Senna 8.6 Mg Tab) 17.2 mg PO DAILY [facility] Stop: 08/10/20 08:59 Last Admin: 07/11/20 08:40 Dose: 17.2 mg Documented by: Tamsulosin HCl (Tamsulosin Hcl 0.4 Mg Cap) 0.4 mg PO DAILY [facility] Stop: 08/10/20 08:59 Last Admin: 07/11/20 08:40 Dose: 0.4 mg Documented by:
--- NOTE | 2020-07-11 13:42 | Electroencephalogram ---
EEG Procedure Note Date of Service July 11, 2020 Start / End Times Start Time: 0 720 End Time: 0 750 Referring Physician Kendra Robledo DO History Confusion lethargy possible breakthrough seizure recent bradycardia for glioblastoma deep right temporal lobe Home Medication List Medication Instructions Recorded Confirmed Type Lantus Solostar U-100 Insulin 20 unit SUBCUT HS 06/18/18 07/10/20 History amlodipine 10 mg PO DAILY 06/18/18 07/10/20 History finasteride 5 mg PO QAM 06/18/18 07/10/20 History pantoprazole 40 mg PO QAM 06/18/18 07/10/20 History tamsulosin 0.4 mg PO DAILY 06/18/18 07/10/20 History multivitamin 1 tab PO DAILY 08/21/19 07/10/20 History carvedilol 3.125 mg PO DAILY 06/09/20 07/10/20 History gabapentin 300 mg PO HS 06/09/20 07/10/20 History losartan 100 mg PO DAILY 06/28/20 07/10/20 History methocarbamol 500 mg PO BID 06/28/20 07/10/20 History divalproex 750 mg PO Q8H 07/10/20 07/10/20 History insulin aspart U-100 [Novolog 0 unit SUBCUT DIRECTED 07/10/20 07/10/20 History Flexpen U-100 Insulin] levetiracetam 2,000 mg PO BID 07/10/20 07/10/20 History rivaroxaban [Xarelto] 20 mg PO DAILY 07/10/20 07/10/20 History sennosides [Mitali-arnaud] 17.2 mg PO DAILY 07/10/20 07/10/20 History Inpatient Medication List Acetaminophen (Acetaminophen 325 Mg Tab) 650 mg PO Q4H PRN PRN Reason: Pain or Fever Stop: 08/09/20 20:20 Last Admin: 07/10/20 22:03 Dose: 650 mg Documented by: [id number] Amlodipine Besylate (Amlodipine Besylate 5 Mg Tab) 10 mg PO DAILY [facility] Stop: 08/10/20 08:59 Last Admin: 07/11/20 08:40 Dose: 10 mg Documented by: [id number] Carvedilol (Carvedilol 3.125 Mg Tab) 3.125 mg PO DAILY [facility] Stop: 08/10/20 08:59 Last Admin: 07/11/20 08:40 Dose: 3.125 mg Documented by: [id number] Divalproex Sodium (Divalproex Delay Release 250 Mg Tabec) 750 mg PO Q8H [facility] Stop: 08/09/20 21:59 Last Admin: 07/11/20 05:09 Dose: 750 mg Documented by: [id number] Admin: 07/10/20 21:29 Dose: 750 mg Documented by: [id number] Finasteride (Finasteride 5 Mg Tab) 5 mg PO QAM [facility] Stop: 08/10/20 08:59 Last Admin: 07/11/20 08:40 Dose: 5 mg Documented by: [id number] Levetiracetam (Levetiracetam 500 Mg Tab) 2,000 mg PO BID [facility] Stop: 08/09/20 21:14 Last Admin: 07/11/20 08:40 Dose: 2,000 mg Documented by: [id number] Admin: 07/10/20 21:28 Dose: 2,000 mg Documented by: [id number] Losartan Potassium (Losartan Potassium 50 Mg Tab) 100 mg PO DAILY [facility] Stop: 08/10/20 08:59 Last Admin: 07/11/20 08:40 Dose: 100 mg Documented by: [id number] Multivitamins (Multivitamin Tab) 1 tab PO DAILY [facility] Stop: 08/10/20 08:59 Last Admin: 07/11/20 08:40 Dose: 1 tab Documented by: [id number] Pantoprazole Sodium (Pantoprazole 40 Mg Tab) 40 mg PO QAM [facility] Stop: 08/10/20 08:59 Last Admin: 07/11/20 08:40 Dose: 40 mg Documented by: [id number] Sennosides (Senna 8.6 Mg Tab) 17.2 mg PO DAILY [facility] Stop: 08/10/20 08:59 Last Admin: 07/11/20 08:40 Dose: 17.2 mg Documented by: [id number] Tamsulosin HCl (Tamsulosin Hcl 0.4 Mg Cap) 0.4 mg PO DAILY [facility] Stop: 08/10/20 08:59 Last Admin: 07/11/20 08:40 Dose: 0.4 mg Documented by: [id number] Discontinued Medications Hydralazine HCl (Hydralazine Hcl 20 Mg/Ml Vial) 10 mg IV NOW STA Stop: 07/10/20 21:04 Last Admin: 07/10/20 21:27 Dose: 10 mg Documented by: [id number] Sodium Chloride (Nss 1000ml) 500 mls @ 999 mls/hr IV .Q31M ONE Stop: 07/10/20 15:53 Last Infusion: 07/10/20 17:01 Dose: 0 mls/hr Documented by: [id number] Admin: 07/10/20 15:49 Dose: 999 mls/hr Documented by: [id number] Description This is a 21 electrode EEG with a single channel dedicated to limited EKG. The electrodes were placed in accordance with the International 10-20 systemThis EEG was done as a bedside recording with simultaneous video analysis patient movement and behavior is good technical quality with few or no muscle movement artifacts. Patient appears to be quite sedated and very few spontaneous movements are noted. Photic stimulation is performed. Drowsiness light sleep not clearly recorded although the current clinical state might correlate with a drowsy condition Under these conditions there is no normal background rhythm in the alpha range but rather a moderate amplitude upper theta range pattern seen maximum posterior head regions and of up to 30 V maximum amplitude. Central lower frequency theta intermixed with some delta activity is seen also in a symmetrical fashion without any clear-cut focality over the right hemisphere or temporal lobe. Beta activity seen bifrontally. Stimulation provokes no significant abnormal responses and also does not induce much of a driving response There is no evidence of any time during the tracing for potential epileptogenic activity for polyspike and spike-wave burst, focal sharp waves or focal spikes Interpretation Mild to moderate diffuse generalized nonfocal and highly nonspecific abnormal tracing with no normal background rhythms and excessive amounts of theta delta activity but with no associated potentially epileptogenic features Clinical Correlation This EEG reveals evidence for a mild to moderate generalized nonfocal encephalopathy without epileptic activity and may reflect any 1 of a number of toxic or metabolic encephalopathy's, conceivably postictal state but is not consistent with a nonconvulsive status epilepticus picture and does not reveal ongoing potentially epileptogenic patterns Adarsh Jackson MD
--- NOTE | 2020-07-11 13:45 | Neurology Consultation ---
Date of Consultation July 11, 2020 Assessment & Plan (1) Acute metabolic encephalopathy: 1. EEG- generalize slowing 2. continue correct reversable causes Present on Admission?: Yes (2) S/P brain surgery: 1. would check with neurosurgery if stables need removed or when they would recommend Present on Admission?: Yes (3) Seizure: 1. continue Depakote 750 mg q 8 hours 2. continue Keppra 2g q12 hours- may need to reduce Keppra - would order level if not already done 3. depakote level 98 on admission 4. unable to due continuous monitoring here- may need to go back to [place] for further evaluation 5. 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 and to have an EEG that does not show any ongoing seizure activity but only a mild generalized slowing of all background rhythms Frankly I doubt that this is ongoing seizure activity but we have no message here at [facility] to do long-term monitoring and during his last admission in [place] his Keppra dose was increased based on the findings of of his continuous EEG There are other mitigating circumstances including hyperglycemia and I am simply going to observe him another day or so hoping that he will improve when his metabolic status improves but if he continues to have this waxing and waning encephalopathy not explicable on the basis of a high ammonia level, a toxic level of Depakote or toxic Keppra level and I am going to recommend he be transferred to [facility] for ongoing continuous EEG monitoring to be sure that some of this is not due to subclinical partial seizures I will be back to look and tomorrow afternoon Adarsh Jackson MD History of Present Illness Reason for Consultation: h/o seizures, s/p glioblastoma resection, AMS Requesting Physician: Kendra Robledo DO Attending Physician: Kendra Robledo DO History of Present Illness Denis is a 69 year old man with 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 He was discharged from the hospital after his surgery, became altered and presented again to [facility] ER on 06/29 where he was transferred to [facility]. During this hospitalization continuous EEG monitoring revealed intermittent seizures. Antiepileptic medications were titrated and he was ultimately discharged on 07/04 to home. Then over the weekend he was ambulating and mentating at his baseline. Then Tuesday he became more fatigued and began having staring episodes which would last several seconds at a time and then proceeded to say words that were clear but demonstrated disorientation. He has remained very fatigued and has slept most of the day. He has been apathetic to food and 48 hours of no intake. He is on Xarelto after having a PE and DVT approximately 1.5 to 2 years ago and is to stay on for a lifelong anticoagulation. He is awake and following commands but still some what confused. denies pain, SOB, abdominal pain, N, V. Allergies Allergy/AdvReac Type Severity Reaction Status Date / Time erythromycin base AdvReac Unknown nausea/vomi Verified 07/10/20 18:25 ting Home Medications Medication Instructions Recorded Confirmed Type Lantus Solostar U-100 Insulin 20 unit SUBCUT HS 06/18/18 07/10/20 History amlodipine 10 mg PO DAILY 06/18/18 07/10/20 History finasteride 5 mg PO QAM 06/18/18 07/10/20 History pantoprazole 40 mg PO QAM 06/18/18 07/10/20 History tamsulosin 0.4 mg PO DAILY 06/18/18 07/10/20 History multivitamin 1 tab PO DAILY 08/21/19 07/10/20 History carvedilol 3.125 mg PO DAILY 06/09/20 07/10/20 History gabapentin 300 mg PO HS 06/09/20 07/10/20 History losartan 100 mg PO DAILY 06/28/20 07/10/20 History methocarbamol 500 mg PO BID 06/28/20 07/10/20 History divalproex 750 mg PO Q8H 07/10/20 07/10/20 History insulin aspart U-100 [Novolog 0 unit SUBCUT DIRECTED 07/10/20 07/10/20 History Flexpen U-100 Insulin] levetiracetam 2,000 mg PO BID 07/10/20 07/10/20 History rivaroxaban [Xarelto] 20 mg PO DAILY 07/10/20 07/10/20 History sennosides [Mitali-arnaud] 17.2 mg PO DAILY 07/10/20 07/10/20 History Patient History Medical History (Updated 07/11/20 @ 13:02 by Kendra Robledo DO) Anxiety Barretts esophagus BPH (benign prostatic hyperplasia) DM type 2 (diabetes mellitus, type 2) Dyslipidemia History of agent [place] exposure History of DVT (deep vein thrombosis) L LEG 1.5 YR AGO History of pulmonary embolism BILATERAL - 1.5 YR AGO Hypertension SOB (shortness of breath) on exertion Surgical History (Updated 07/10/20 @ 19:16 by Kendra Robledo DO) H/O shoulder surgery R X 2 - MOST RECENT: DEC 2018 History of anesthesia reaction REMOTE HX - WITH ONE SURGERY (PT UNSURE WHAT SURGERY) - SLEPT FOR 2 DAYS AFTER, NO -RE-OCCURENCE History of appendectomy History of cataract surgery LEFT History of colonoscopy History of endoscopy History of foot surgery L History of tonsillectomy and adenoidectomy S/P brain surgery Family History Father Diabetes Sister Cancer Social History Smoking Status: Never smoker Tobacco Type: Cigarettes Second Hand Exposure: No; Hx Alcohol Use: No Hx Substance Use: No Preferred Language: Uzbek Communication Ability: Impaired Smearer Required: No Beliefs That Will Affect Care: None marital status: Current Living Situation: Family Other Information That Helps Us Care for You: No Feels Safe at Home: Yes Safety Concerns: Feels Safe At This Time Assistive Devices: Walker Review of Systems Review of Systems: All systems reviewed & are unremarkable except as noted in HPI & below Physical Exam Physical Exam: Physical Exam: Constitutional: appearance over nourished, healthy, joan in place no discharge or erythema. Ears, Nose, Mouth and Throat: mucous membranes moist, no injection and skin normal, eyes normal Cardiovascular: normal S-1 and S-2 and regular rate and rhythm Respiratory: clear to auscultation (CTA) and no rales, rhonchi or wheeze Musculoskeletal: no peripheral edema and good distal pulses Skin: no stigmata of neurocutaneous disease noted and normal and intact Eyes: difficulty with eye exam left eye esotropia to midline, unable to assess gross visual black NEUROLOGIC EXAMINATION: Mental status: Alert and interactive Oriented to [facility] thinks it is 2014, but does know Biden president Oriented to person Speech clear but somewhat slurred speech Cranial Nerves Normal findings for Cranial Nerves II - XII Reflexes: Deep tendon reflexes were symmetrical and graded 2/5. down going toes Sensory: unclear if sensation is intact as he is saying yes to all questions Coordination: move all extremities purposefully Gait/Stance: Posture lying in bed, gait not assess Strength: bilateral hand glazier structural glass biceps triceps 5/5, hip flex left LE 4/5, right 5/5, plantar flex ext 5/5 Results & Data ([facility]) Vital Signs (Past 12 Hours) Vital Signs Temp Pulse Pulse Resp BP Pulse Ox 07/11/20 11:56 36.7 C 77 18 144/83 H 98 07/11/20 08:00 69 07/11/20 06:55 36.7 C 69 18 163/79 H 95 07/11/20 04:35 36.8 C 67 16 154/88 H 98 Laboratory Results Abnormal lab results 07/10/20 07/10/20 07/10/20 Range/Units 15:29 15:29 15:29 RBC (4.7-6.1) M/uL Worth # (Auto) 1.13 H (0.11-0.59) K/uL Immature Gran # (Auto) 0.09 H (0.00-0.02) K/uL VBG pH 7.43 H (7.36-7.41) Sodium (136-145) mmol/L Anion Gap 2.0 L (3-11) BUN 25 H (7-18) mg/dl BUN/Creatinine Ratio 24.8 H (10-20) POC Glucose (70-99) mg/dl Calcium (8.5-10.1) mg/dl Ammonia (11-32) umol/L Urine Ketones (Negative) 07/10/20 07/10/20 07/11/20 Range/Units 15:45 16:58 06:37 RBC 4.68 L (4.7-6.1) M/uL Worth # (Auto) (0.11-0.59) K/uL Immature Gran # (Auto) (0.00-0.02) K/uL VBG pH (7.36-7.41) Sodium (136-145) mmol/L Anion Gap (3-11) BUN (7-18) mg/dl BUN/Creatinine Ratio (10-20) POC Glucose (70-99) mg/dl Calcium (8.5-10.1) mg/dl Ammonia < 10.0 L (11-32) umol/L Urine Ketones 1+ H (Negative) 07/11/20 07/11/20 Range/Units 06:37 11:38 RBC (4.7-6.1) M/uL Worth # (Auto) (0.11-0.59) K/uL Immature Gran # (Auto) (0.00-0.02) K/uL VBG pH (7.36-7.41) Sodium 134 L (136-145) mmol/L Anion Gap (3-11) BUN 20 H (7-18) mg/dl BUN/Creatinine Ratio 21.1 H (10-20) POC Glucose 143 H (70-99) mg/dl Calcium 8.4 L (8.5-10.1) mg/dl Ammonia (11-32) umol/L Urine Ketones (Negative) Diagnostic Findings EEG-This EEG reveals evidence for a mild to moderate generalized nonfocal encephalopathy without epileptic activity and may reflect any 1 of a number of toxic or metabolic encephalopathy's, conceivably postictal state but is not consistent with a nonconvulsive status epilepticus picture and does not reveal ongoing potentially epileptogenic patterns CTA head and neck-No significant stenosis, occlusion, or aneurysm within the kaibab of [place]. No significant stenosis, occlusion, or dissection identified within the carotid or vertebral arteries. Interval right-sided postoperative changes. This is better appreciated on the same day head CT. CT head- Postsurgical changes of a right temporal lobe mass resection with right frontotemporal craniotomy Resolution of the previously identified pneumocephalus Persistent but decreasing extra-axial fluid. No acute findings.
--- NOTE | 2020-07-11 16:19 | Electrocardiogram Report ---
Test Reason : Blood Pressure : / mmHG Vent. Rate : 066 BPM Atrial Rate : 066 BPM P-R Int : 208 ms QRS Dur : 086 ms QT Int : 424 ms P-R-T Axes : 044 039 037 degrees QTc Int : 444 ms Poor data quality, interpretation may be adversely affected Normal sinus rhythm Normal ECG When compared with ECG of 10-JUL-2020 15:00, (unconfirmed) No significant change was found Confirmed by Sae Tello ([id number]) on 07/11/2020 4:18:59 PM Referred By: REFERRED SELF Confirmed By:Epi Tello
[2020-07-11] MEDS: RIVAROXABAN 20 MG TAB PO SCH (17:09)
--- NOTE | 2020-07-11 17:38 | Magnetic Resonance Report ---
MRI OF THE BRAIN WITHOUT CONTRAST CLINICAL HISTORY: new AMS, h/o GBM removal 06/24, h/o seizure COMPARISON STUDY: MRI of the brain June 09, 2020. Head CT July 10, 2020. TECHNIQUE: Utilizing a 1.5 Anum magnet and dedicated coil, multiplanar, multiecho imaging of the bra in was performed without IV contrast. FINDINGS: This exam is significantly compromised by motion artifact. There are no foci of restricted diffusion to suggest acute infarct. Postoperative findings consistent with right frontotemporal crani otomy are noted. Right temporal lobe or second cavity measures 3.4 x 1.8 cm. Evaluation for residual tumor suboptimal given lack of postcontrast imaging but no definite residual tumor is identified on t his examination. Note is made of bilateral extra axial fluid collections, right larger than left. The right-sided collection measures 9 mm in thickness. The right-sided collection is either unchanged or slightly increased since head CT of July 10, 2020. Basal cisterns are patent. Ventricular system is stable. There is no evidence for hydrocephalus. Fluid within the right frontotemporal scalp is noted . This is probably postsurgical. IMPRESSION: 1. Exam significantly compromised by motion artifact. No acute intracranial findings. No evidence for acute infarction. 2. Stable postoperative findings within the right temporal lobe. 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 Bilateral extra-axial fluid collections, right larger than left. The right collection is eit her unchanged or slightly increased since prior head CT. 3. No evidence for hydrocephalus. ACT 112: Negative or not required by law. Electronically signed by: Edmundo Lara M.D. 07/11/2020 5:37 PM
[2020-07-11] MEDS: GABAPENTIN 300 MG CAP PO SCH (21:53)
[2020-07-12] MEDS: DIVALPROEX DELAY RELEASE 250 MG TABEC PO SCH ×3 (06:00→21:08)
[2020-07-12] MEDS: TAMSULOSIN HCL 0.4 MG CAP PO SCH (08:13)
[2020-07-12] MEDS: PANTOprazole 40 MG TAB PO SCH (08:13)
[2020-07-12] MEDS: LOSARTAN POTASSIUM 50 MG TAB PO SCH (08:13)
[2020-07-12] MEDS: FINASTERIDE 5 MG TAB PO SCH (08:13)
[2020-07-12] MEDS: amLODIPine BESYLATE 5 MG TAB PO SCH (08:13)
[2020-07-12] MEDS: levETIRAcetam 500 MG TAB PO SCH ×2 (08:14→21:08)
[2020-07-12] MEDS: SENNA 8.6 MG TAB PO SCH (08:14)
[2020-07-12] MEDS: MULTIVITAMIN TAB PO SCH (08:14)
[2020-07-12] MEDS: carvediloL 3.125 MG TAB PO SCH (08:14)
--- NOTE | 2020-07-12 10:24 | Communication Note ---
Date of Service: July 12, 2020 Denis looks much better today. He still mildly confused having trouble figuring out how to make a telephone call but knows he is in [facility] is a little vague about the date is marginal recall of what led up to this hospitalization but is cooperative to a large degree, moves all extremities fairly well including his left arm which she is using the technology trainer to our telephone although it is a little clumsy he still has a left sided mild hemiparesis that 1 was expected after his surgical procedure for the deep temporal lobe glioblastoma. No seizure activity has been seen clinically and EEG showed only mild to moderate generalized slowing with surprisingly no focal slowing over the right hemisphere and with no spike discharges or any other paroxysmal abnormalities At this point his metabolic studies seem to be coming back in line. His glucose in the normal range. Depakote level despite probable noncompliance for several days was 98 but his dose is pretty generous and I do not see evidence that he has had a Keppra level come back on the chart and is on a significant amount of this as well My suggestions would be to continue to observe him repeat the Keppra level and Depakote level tomorrow realizing for well that the Keppra level may be a week or 2 coming back and if he gets back to what the family feels this is baseline or close to it probably discharge him on Tuesday and have him follow-up in [place] where most of his neurosurgical care has been rendered. He probably is due for suture removal and I suspect he does have a neurosurgical return visit or some arrangements have been made locally to have the joan removed. At this point I will probably just take a look at him tomorrow but have nothing more to offer and certainly do not feel he needs transfer to [facility] now for continuous EEG monitoring as his status has improved with just reinstitution of his medications management of his metabolic issues etc. Adarsh Jackson MD
--- NOTE | 2020-07-12 15:10 | Hospitalist Progress Note ---
Date of Service July 12, 2020 Assessment & Plan (1) Acute metabolic encephalopathy: Appears resolved as he is now oriented to baseline. He has been working with physical and Occupational Therapy with recommendations for returning home when medically stable. His energy level has improved overall. No seizure activity has been seen clinically and EEG revealed generalized slowing. No recommendation at this time for any need to transfer to [facility] for continuous EEG monitoring as a status has improved with just reinstitution of his medications. Will repeat Keppra and valproic acid levels in a.m. per neuro recommendations. (2) Weakness: Improved and patient is ambulating at baseline. (3) Fatigue: Improved and he is more cognitively aware. Initial fatigue may have been related to his brain surgery (4) Seizure: History of seizures status post brain tumor removal. No seizures during this admission. Continue Depakote and Keppra per home regimen. Valproic acid level within normal range. Repeat in a.m. along with Keppra level. (5) History of pulmonary embolism: Patient on chronic Xarelto, recently restarted with no evidence of bleeding. (6) DM type 2 (diabetes mellitus, type 2): Continue basal/bolus insulin while hospitalized to maintain euglycemia. Current glucose levels are within normal limits. (7) BPH (benign prostatic hyperplasia): Continue tamsulosin per home regimen. (8) DVT prophylaxis: SCDs/Xarelto Full code as discussed with on admission Disposition-PCU [facility]ated Discharge Date Admission Date: July 10, 2020 Subjective 69-year-old man with a history of glioblastoma multiforme removed 06/24 at [facility] presents with new onset altered mental status and worsening fatigue for 2 days. He is alert and oriented to person place and time. He is more awake cognitively but still has some difficulty following instructions. For instance performing extraocular movements is difficult although he can do it with significant prompting. No cranial nerve deficit is seen. Additionally when I asked him to lift his arms or sit up he has difficulty completing the task even though he is agreeable to do so. He has been tolerating p.o. and ambulating at baseline. Discussed the case with neurology. Review of Systems Review of Systems: All systems reviewed & are unremarkable except as noted in Subjective Physical Exam Physical Exam: CONSTITUTIONAL: WNWD, vitals as above, generally appears more awake in no acute distress EYES: EOMI bilaterally-although he could demonstrate this in all planes, he required significant prompting to perform each task, pupils are equal and round bilaterally, normal conjunctivae, no scleral icterus ENT: external ear and nose normal, MMM NECK: trachea midline RESPIRATORY: clear to auscultation bilaterally, no crackles, rales or wheezes, normal respiratory effort CARDIOVASCULAR: regular rate and rhythm, S1 and 2 heard without murmurs, gallops or rubs, no JVD, no peripheral edema GASTROINTESTINAL: soft, nontender, nondistended, no guarding. MUSCULOSKELETAL: Generalized weakness, no gross focal deficits. Able to move all extremities equally, head is normocephalic and atraumatic. SKIN: warm and dry, right-sided cranial joan in place NEUROLOGIC: No facial palsy, no dysarthria. CN 2-12 grossly intact PSYCHIATRIC: alert cooperative and oriented to person, place and time. Results & Data Results & Data ([facility]) Vital Signs (Past 12 Hours) Vital Signs Temp Pulse Pulse Pulse Resp BP Pulse Ox 07/12/20 12:00 36.7 C 76 18 129/77 94 07/12/20 10:43 63 07/12/20 06:43 36.3 C L 66 17 133/71 96 07/12/20 03:45 36.5 C 63 17 132/73 96 Medications Administered Current Inpatient Medications Acetaminophen (Acetaminophen 325 Mg Tab) 650 mg PO Q4H PRN PRN Reason: Pain or Fever Stop: 08/09/20 20:20 Last Admin: 07/10/20 22:03 Dose: 650 mg Documented by: Alprazolam (Alprazolam 0.5 Mg Tablet) 0.5 mg PO UD PRN PRN Reason: premedication for MRI if needed Stop: 08/10/20 11:03 Last Admin: 07/11/20 15:49 Dose: 0.5 mg Documented by: Amlodipine Besylate (Amlodipine Besylate 5 Mg Tab) 10 mg PO DAILY [facility] Stop: 08/10/20 08:59 Last Admin: 07/12/20 08:13 Dose: 10 mg Documented by: Carvedilol (Carvedilol 3.125 Mg Tab) 3.125 mg PO DAILY [facility] Stop: 08/10/20 08:59 Last Admin: 07/12/20 08:14 Dose: 3.125 mg Documented by: Divalproex Sodium (Divalproex Delay Release 250 Mg Tabec) 750 mg PO Q8H [facility] Stop: 08/09/20 21:59 Last Admin: 07/12/20 06:00 Dose: 750 mg Documented by: Finasteride (Finasteride 5 Mg Tab) 5 mg PO QAM [facility] Stop: 08/10/20 08:59 Last Admin: 07/12/20 08:13 Dose: 5 mg Documented by: Gabapentin (Gabapentin 300 Mg Cap) 300 mg PO HS [facility] Stop: 08/10/20 20:59 Last Admin: 07/11/20 21:53 Dose: 300 mg Documented by: Levetiracetam (Levetiracetam 500 Mg Tab) 2,000 mg PO BID [facility] Stop: 08/09/20 21:14 Last Admin: 07/12/20 08:14 Dose: 2,000 mg Documented by: Losartan Potassium (Losartan Potassium 50 Mg Tab) 100 mg PO DAILY [facility] Stop: 08/10/20 08:59 Last Admin: 07/12/20 08:13 Dose: 100 mg Documented by: Multivitamins (Multivitamin Tab) 1 tab PO DAILY [facility] Stop: 08/10/20 08:59 Last Admin: 07/12/20 08:14 Dose: 1 tab Documented by: Pantoprazole Sodium (Pantoprazole 40 Mg Tab) 40 mg PO QAM [facility] Stop: 08/10/20 08:59 Last Admin: 07/12/20 08:13 Dose: 40 mg Documented by: Rivaroxaban (Rivaroxaban 20 Mg Tab) 20 mg PO QDD [facility] Stop: 08/10/20 16:29 Last Admin: 07/11/20 17:09 Dose: 20 mg Documented by: Sennosides (Senna 8.6 Mg Tab) 17.2 mg PO DAILY [facility] Stop: 08/10/20 08:59 Last Admin: 07/12/20 08:14 Dose: 17.2 mg Documented by: Tamsulosin HCl (Tamsulosin Hcl 0.4 Mg Cap) 0.4 mg PO DAILY [facility] Stop: 08/10/20 08:59 Last Admin: 07/12/20 08:13 Dose: 0.4 mg Documented by:
[2020-07-12] MEDS: RIVAROXABAN 20 MG TAB PO SCH (15:25)
[2020-07-12] MEDS: GABAPENTIN 300 MG CAP PO SCH (21:08)
[2020-07-12] MEDS ORDERED: GLUCAGON FOR INJ 1 MG VIAL SQ PRN (22:06)
[2020-07-12] MEDS ORDERED: GLUCOSE 40% GEL 15 GM TUBE PO PRN (22:06)
[2020-07-12] MEDS ORDERED: GLUCOSE 10 TABS/TUBE PO PRN (22:06)
[2020-07-12] MEDS ORDERED: CARBOHYDRATES FOR HYPOGLYCEMIA PO PRN (22:06)
[2020-07-12] MEDS ORDERED: DEXTROSE 50% 50 ML SYRINGE IV PRN (22:06)
[2020-07-12] MEDS ORDERED: INSULIN GLARGINE SOLOSTAR 100 UNITS/ML 3 ML PEN SC SCH (22:15)
[2020-07-12] MEDS: INSULIN GLARGINE SOLOSTAR 100 UNITS/ML 3 ML PEN SC SCH (23:28)
[2020-07-12] MEDS: INSULIN ASPART 100 UNITS/ML 3 ML PEN SC SCH (23:29)
[2020-07-13] MEDS: DIVALPROEX DELAY RELEASE 250 MG TABEC PO SCH ×3 (06:24→21:05)
[2020-07-13 07:25] LABS: Hematocrit (blood only) 41.9 % (42-52); Hemoglobin 14.1 g/dL (14.0-18.0); Mean Corpuscular Hemoglobin 30.6 pg (25-34); Mean Corpuscular Hgb Conc 33.7 g/dL (32-36); Mean Corpuscular Volume 90.9 fL (80-100); Mean Platelet Volume 10.2 fL (7.4-10.4); Platelet Count 145 K/uL (130-400); Red Blood Count 4.61 M/uL (4.7-6.1); White Blood Count 5.82 K/uL (4.8-10.8)
[2020-07-13 07:54] LABS: BUN Creatinine Ratio 28.6 (10-20); Calcium 8.1 mg/dl (8.5-10.1); Est GFR (Non-African American) 80.2; Magnesium 2.2 mg/dl (1.8-2.4); Phosphorus 3.1 mg/dl (2.5-4.9); Potassium 3.5 mmol/L (3.5-5.1)
[2020-07-13] MEDS: INSULIN ASPART 100 UNITS/ML 3 ML PEN SC SCH ×4 (08:22→20:20)
[2020-07-13] MEDS: MULTIVITAMIN TAB PO SCH (08:23)
[2020-07-13] MEDS: PANTOprazole 40 MG TAB PO SCH (08:23)
[2020-07-13] MEDS: TAMSULOSIN HCL 0.4 MG CAP PO SCH (08:25)
[2020-07-13] MEDS: amLODIPine BESYLATE 5 MG TAB PO SCH (08:25)
[2020-07-13] MEDS: FINASTERIDE 5 MG TAB PO SCH (08:25)
[2020-07-13] MEDS: carvediloL 3.125 MG TAB PO SCH (08:25)
[2020-07-13] MEDS: SENNA 8.6 MG TAB PO SCH (08:26)
[2020-07-13] MEDS: levETIRAcetam 500 MG TAB PO SCH ×2 (08:26→20:06)
[2020-07-13] MEDS: LOSARTAN POTASSIUM 50 MG TAB PO SCH (08:26)
--- NOTE | 2020-07-13 10:48 | Communication Note ---
Date of Service: July 13, 2020 Mr. Lam appears even better than he was yesterday. He is little more conversant still little confused and little disinhibited and have a minor left hemiparesis and a tendency to have some eye deviation of the right. His Depakote level is now 108 which is slightly elevated, Keppra level is pending as basic electrolytes have really improved now he is back on all his medications and his anticonvulsants nothing suggestive of nonconvulsive seizure activity has been reported I would just another Depakote level tomorrow just to be certain is not trending upwards and we may have to reduce the dose. The Keppra at 2000 mg twice a day to me is quite high but again we need to check the level and if in a toxic range could probably back down to 1750 twice a day and perhaps even 1500 twice a day but these are decisions that are generally made on an outpatient basis I am not sure what discharge plans include. Neurology will make at least a chart check tomorrow when we milligrams in the afternoon for now I do not think we are adding a whole lot of value to his inpatient assessment Adarsh Jackson MD
--- NOTE | 2020-07-13 14:35 | Hospitalist Progress Note ---
Date of Service July 13, 2020 Assessment & Plan (1) Acute metabolic encephalopathy: Increased generalized weakness, fatigue and intermittent disorientation after recent discharge from the hospital. History of seizures recently placed on Keppra and Depakote. EEG revealed generalized slowing, and patient has not had any significant seizure activity that is clear this admission. Still with some fatigue that is more than his normal baseline. May be related to his surgery. Fatigue level has improved, however patient continues to demonstrate difficulties with ADLs and IADLs. May benefit from a transitional rehab program to home. Continue to monitor on telemetry per neurology recommendations. Continue current AED medications with adjustments as needed based on levels. Brain MRI without contrast was compromised by motion artifact but there was no evidence of acute infarction. Stable postoperative findings in the right temporal lobe were seen and bilateral extra axial fluid collections right larger than left were seen with no evidence of hydrocephalus. (2) Weakness: Still present but patient working with PT/OT and was able to ambulate in the hallways (3) Fatigue: Improved but still present. Possibly related to recent brain surgery and or Keppra medication which is new for him. (4) Seizure: History of seizures status post brain tumor removal. No seizures this admission. Continue Depakote and Keppra per home regimen. Valproic acid level within normal range. (5) History of pulmonary embolism: Patient on chronic Xarelto, recently restarted this week with no overt bleeding. (6) DM type 2 (diabetes mellitus, type 2): Continue basal/bolus insulin while hospitalized to maintain euglycemia. Current glucose levels are within normal limits. (7) BPH (benign prostatic hyperplasia): Continue tamsulosin per home regimen. (8) DVT prophylaxis: SCDs/Xarelto Full code as discussed with on admission Disposition-PCU I was able to contact the by phone and updated her on the plan. All questions answered to her satisfaction. Multiple calls made to primary nurse, Clinical coordinator, Case mangagement and again to to coordinate his care. 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 Continues to appear clinically improved however, there are concerns about him going home and succeeding in the home environment with 1 training and development professional. He is requiring a significant amount of assistance with activities of daily living and IADLs. He is still a little confused and disinhibited with a minor left hemiparesis. The patient, however, is saying he is ready to go. He feels the date is the , he does not recognize the month, of 2020. He knows his name and where he is. He knows he has a follow-up appointment with Dr. Wayne and another appointment at [facility] tomorrow but he does not know for what. Additionally, I spoke with his on the phone this morning who is having emotional distress about his current state. Discussed the situation with his current primary nurse who feels he would be too much to handle at home for 1 person. Discussed the case with case management regarding options. Overall decided it would be in his best interest in the interest of his family if he were to go to a rehab program as a transition to home. I did try to contact the back but got no answer. Case management awaiting contact with . Review of Systems Review of Systems: All systems reviewed & are unremarkable except as noted in Subjective Physical Exam Physical Exam: CONSTITUTIONAL: WNWD, vitals as above, generally appears more awake in no acute distress. He was awoken from sleep when I entered the room. EYES: EOMI bilaterally-although he could demonstrate this in all planes, he required significant prompting to perform each task, pupils are equal and round bilaterally, normal conjunctivae, no scleral icterus ENT: external ear and nose normal, MMM NECK: trachea midline RESPIRATORY: clear to auscultation bilaterally, no crackles, rales or wheezes, normal respiratory effort CARDIOVASCULAR: regular rate and rhythm, S1 and 2 heard without murmurs, gallops or rubs, no JVD, no peripheral edema GASTROINTESTINAL: soft, nontender, nondistended, no guarding. MUSCULOSKELETAL: Generalized weakness, no gross focal deficits. Able to move all extremities equally, head is normocephalic and atraumatic. SKIN: warm and dry, right-sided cranial joan in place NEUROLOGIC: No facial palsy, no dysarthria. CN 2-12 grossly intact. He requires significant prompting to do certain tasks such as follow my finger with his eyes and/or even sitting up from a laying down position without significant assistance. PSYCHIATRIC: alert cooperative, delirium present Results & Data Results & Data ([facility]) Vital Signs (Past 12 Hours) Vital Signs Temp Pulse Pulse Resp BP Pulse Ox 07/13/20 12:02 36.4 C L 69 17 113/70 94 07/13/20 11:05 62 07/13/20 07:20 36.8 C 65 17 130/77 94 07/13/20 04:17 36.3 C L 58 L 16 158/64 H 97 Laboratory Results Short CBC 07/13/20 Range/Units 06:56 WBC 5.82 (4.8-10.8) K/uL Hgb 14.1 (14.0-18.0) g/dL Hct 41.9 L (42-52) % Plt Count 145 (130-400) K/uL BMP 07/13/20 06:56 Sodium 137 Potassium 3.5 Chloride 104 Carbon Dioxide 28 BUN 27 H Creatinine 0.95 Glucose 101 H Calcium 8.1 L Medications Administered Current Inpatient Medications Acetaminophen (Acetaminophen 325 Mg Tab) 650 mg PO Q4H PRN PRN Reason: Pain or Fever Stop: 08/09/20 20:20 Last Admin: 07/10/20 22:03 Dose: 650 mg Documented by: Alprazolam (Alprazolam 0.5 Mg Tablet) 0.5 mg PO UD PRN PRN Reason: premedication for MRI if needed Stop: 08/10/20 11:03 Last Admin: 07/11/20 15:49 Dose: 0.5 mg Documented by: Amlodipine Besylate (Amlodipine Besylate 5 Mg Tab) 10 mg PO DAILY [facility] Stop: 08/10/20 08:59 Last Admin: 07/13/20 08:25 Dose: 10 mg Documented by: Carvedilol (Carvedilol 3.125 Mg Tab) 3.125 mg PO DAILY ALLEY Stop: 08/10/20 08:59 Last Admin: 07/13/20 08:25 Dose: 3.125 mg Documented by: Dextrose (Dextrose 50% 50 Ml Syringe) 25 - 50 ml IV UD PRN; Protocol PRN Reason: Hypoglycemia Protocol Stop: 08/11/20 22:05 Divalproex Sodium (Divalproex Delay Release 250 Mg Tabec) 750 mg PO Q8H [facility] Stop: 08/09/20 21:59 Last Admin: 07/13/20 14:09 Dose: 750 mg Documented by: Finasteride (Finasteride 5 Mg Tab) 5 mg PO QAM [facility] Stop: 08/10/20 08:59 Last Admin: 07/13/20 08:25 Dose: 5 mg Documented by: Gabapentin (Gabapentin 300 Mg Cap) 300 mg PO HS [facility] Stop: 08/10/20 20:59 Last Admin: 07/12/20 21:08 Dose: 300 mg Documented by: Glucagon (Glucagon For Inj 1 Mg Vial) 1 mg SQ UD PRN; Protocol PRN Reason: Hypoglycemia Protocol Stop: 08/11/20 22:05 Glucose (Glucose 10 Tabs/Tube) 4 - 8 tabs PO UD PRN; Protocol PRN Reason: Hypoglycemia Protocol Stop: 08/11/20 22:05 Glucose (Glucose 40% Gel 15 Gm Tube) 15 - 30 gm PO UD PRN; Protocol PRN Reason: Hypoglycemia Protocol Stop: 08/11/20 22:05 Insulin Aspart (Insulin Aspart 100 Units/Ml 3 Ml Pen) 0 units SC ACHS ALLEY Stop: 08/11/20 22:09 Last Admin: 07/13/20 12:05 Dose: Not Given Documented by: Insulin Glargine (Insulin Glargine Solostar 100 Units/Ml 3 Ml Pen) 5 units SC [facility] Stop: 08/11/20 22:14 Last Admin: 07/12/20 23:28 Dose: 5 units Documented by: Levetiracetam (Levetiracetam 500 Mg Tab) 2,000 mg PO BID ALLEY Stop: 08/09/20 21:14 Last Admin: 07/13/20 08:26 Dose: 2,000 mg Documented by: Losartan Potassium (Losartan Potassium 50 Mg Tab) 100 mg PO DAILY [facility] Stop: 08/10/20 08:59 Last Admin: 07/13/20 08:26 Dose: 100 mg Documented by: Miscellaneous (Carbohydrates For Hypoglycemia ) 15 - 30 gm PO UD PRN PRN Reason: Hypoglycemia Protocol Stop: 08/11/20 22:05 Multivitamins (Multivitamin Tab) 1 tab PO DAILY AL[facility] Stop: 08/10/20 08:59 Last Admin: 07/13/20 08:23 Dose: 1 tab Documented by: Pantoprazole Sodium (Pantoprazole 40 Mg Tab) 40 mg PO QAM AL[facility] Stop: 08/10/20 08:59 Last Admin: 07/13/20 08:23 Dose: 40 mg Documented by: Rivaroxaban (Rivaroxaban 20 Mg Tab) 20 mg PO QDD ALLEY Stop: 08/10/20 16:29 Last Admin: 07/12/20 15:25 Dose: 20 mg Documented by: Sennosides (Senna 8.6 Mg Tab) 17.2 mg PO DAILY ALLEY Stop: 08/10/20 08:59 Last Admin: 07/13/20 08:26 Dose: 17.2 mg Documented by: Tamsulosin HCl (Tamsulosin Hcl 0.4 Mg Cap) 0.4 mg PO DAILY [facility] Stop: 08/10/20 08:59 Last Admin: 07/13/20 08:25 Dose: 0.4 mg Documented by:
[2020-07-13] MEDS: RIVAROXABAN 20 MG TAB PO SCH (17:22)
[2020-07-13] MEDS: GABAPENTIN 300 MG CAP PO SCH (20:06)
[2020-07-13] MEDS: INSULIN GLARGINE SOLOSTAR 100 UNITS/ML 3 ML PEN SC SCH (20:20)
[2020-07-14] MEDS: DIVALPROEX DELAY RELEASE 250 MG TABEC PO SCH ×3 (06:02→22:23)
[2020-07-14] MEDS: MULTIVITAMIN TAB PO SCH (08:42)
[2020-07-14] MEDS: TAMSULOSIN HCL 0.4 MG CAP PO SCH (08:42)
[2020-07-14] MEDS: levETIRAcetam 500 MG TAB PO SCH ×2 (08:42→22:23)
[2020-07-14] MEDS: LOSARTAN POTASSIUM 50 MG TAB PO SCH (08:43)
[2020-07-14] MEDS: SENNA 8.6 MG TAB PO SCH (08:43)
[2020-07-14] MEDS: FINASTERIDE 5 MG TAB PO SCH (08:43)
[2020-07-14] MEDS: PANTOprazole 40 MG TAB PO SCH (08:44)
[2020-07-14] MEDS: amLODIPine BESYLATE 5 MG TAB PO SCH (08:44)
[2020-07-14] MEDS: carvediloL 3.125 MG TAB PO SCH (08:46)
[2020-07-14] MEDS: INSULIN ASPART 100 UNITS/ML 3 ML PEN SC SCH ×4 (08:49→22:29)
[2020-07-14] MEDS: RIVAROXABAN 20 MG TAB PO SCH (17:54)
--- NOTE | 2020-07-14 18:34 | Hospitalist Progress Note ---
Date of Service July 14, 2020 Assessment & Plan (1) Acute metabolic encephalopathy: completely resolved-moreso fatigue was present with some confusion mixed in. It is most likely the etiology of this was a combination of drug therapy, i.e.-Keppra, and the fact that he had just come home from the hospital where he had spent one week going in and out of seizures. He was exhausted and likely crashed when he got into his home environment. Now that he is rested, he is looking much better. (2) Weakness: Still somewhat present but patient working with PT/OT and was able to ambulate in the hallways (3) Fatigue: resolved (4) Seizure: History of seizures status post brain tumor removal. No seizures this admission. Continue Depakote and Keppra per home regimen. Valproic acid level within normal range. (5) History of pulmonary embolism: Patient on chronic Xarelto, recently restarted this week with no overt ble eding. (6) DM type 2 (diabetes mellitus, type 2): Continue basal/bolus insulin while hospitalized to maintain euglycemia. Current glucose levels are within normal limits. (7) BPH (benign prostatic hyperplasia): Continue tamsulosin per home regimen. (8) DVT prophylaxis: Xarelto Full code as discussed with on admission Disposition-PCU Coordination of care was extensive today. I received a phone call from PCP who had received a staff message from Dr. Kaur in neurosurgery regarding patient's concerns. She had messaged him stating that her was sleeping nonstop. I reached out to Dr. Kaur who suggested inpatient transfer in order to safely titrate AED medication on continuous EEG monitoring, not available at this facility. I spoke with the Neurologist production broaching machine operator and described how the patient had improved clinically,and neither of us felt the transfer was justified at this point. I then spoke with his at bedside and she said she was confused and that the message she sent was from last week, and that she was more comfortable taking him home at this point. We agreed on dc plan to home with home health and additional family support in am. 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 Continues to appear clinically improved however, there are concerns about him going home and succeeding in the home environment with 1 classification and treatment director. He is requiring a significant amount of assistance with activities of daily living and IADLs. He can appear disoriented at times-for example he was stating there were alot of "hospital" in the room. Mostly he was himself and he and his were able to laugh and communicate together. He appears to be very close to his baseline mental status. Spoke with neurosurgeon who gave approval for his staple removal. Patient's doesn't have help for tonight but will tmrw for his transition to home. Discharge planned for tomorrow. Review of Systems Review of Systems: All systems reviewed & are unremarkable except as noted in Subjective Physical Exam Physical Exam: CONSTITUTIONAL: WNWD, vitals as above, NAD EYES: normal conjunctivae, no scleral icterus ENT: external ear and nose normal, MMM NECK: trachea midline RESPIRATORY: clear to auscultation bilaterally, no crackles, rales or wheezes, normal respiratory effort CARDIOVASCULAR: regular rate and rhythm, S1 and 2 heard without murmurs, gallops or rubs, no JVD, no peripheral edema GASTROINTESTINAL: soft, nontender, nondistended, no guarding. MUSCULOSKELETAL: Generalized weakness,moving around independently, no gross focal deficits. Able to move all extremities equally, head is normocephalic and atraumatic. SKIN: warm and dry, right-sided cranial joan in place NEUROLOGIC: No facial palsy, no dysarthria. CN 2-12 grossly intact. PSYCHIATRIC: alert cooperative, oriented to person place and time. He was saying 2020 was the answer to "where are you" until prompted for another answer and then he gave the correct one. Results & Data Results & Data ([facility]) Vital Signs (Past 12 Hours) Vital Signs Temp Pulse Pulse Resp BP Pulse Ox 07/14/20 17:17 36.6 C 73 16 129/75 96 07/14/20 08:47 77 133/77 07/14/20 07:05 36.5 C 57 L 18 98/60 L 97 Medications Administered Current Inpatient Medications Acetaminophen (Acetaminophen 325 Mg Tab) 650 mg PO Q4H PRN PRN Reason: Pain or Fever Stop: 08/09/20 20:20 Last Admin: 07/10/20 22:03 Dose: 650 mg Documented by: Alprazolam (Alprazolam 0.5 Mg Tablet) 0.5 mg PO UD PRN PRN Reason: premedication for MRI if needed Stop: 08/10/20 11:03 Last Admin: 07/11/20 15:49 Dose: 0.5 mg Documented by: Amlodipine Besylate (Amlodipine Besylate 5 Mg Tab) 10 mg PO DAILY [facility] Stop: 08/10/20 08:59 Last Admin: 07/14/20 08:44 Dose: 10 mg Documented by: Carvedilol (Carvedilol 3.125 Mg Tab) 3.125 mg PO DAILY [facility] Stop: 08/10/20 08:59 Last Admin: 07/14/20 08:46 Dose: 3.125 mg Documented by: Dextrose (Dextrose 50% 50 Ml Syringe) 25 - 50 ml IV UD PRN; Protocol PRN Reason: Hypoglycemia Protocol Stop: 08/11/20 22:05 Divalproex Sodium (Divalproex Delay Release 250 Mg Tabec) 750 mg PO Q8H AL[facility] Stop: 08/09/20 21:59 Last Admin: 07/14/20 12:57 Dose: 750 mg Documented by: Finasteride (Finasteride 5 Mg Tab) 5 mg PO QAM COUNT [facility] Stop: 08/10/20 08:59 Last Admin: 07/14/20 08:43 Dose: 5 mg Documented by: Gabapentin (Gabapentin 300 Mg Cap) 300 mg PO HS COUNT [facility] Stop: 08/10/20 20:59 Last Admin: 07/13/20 20:06 Dose: 300 mg Documented by: Glucagon (Glucagon For Inj 1 Mg Vial) 1 mg SQ UD PRN; Protocol PRN Reason: Hypoglycemia Protocol Stop: 08/11/20 22:05 Glucose (Glucose 10 Tabs/Tube) 4 - 8 tabs PO UD PRN; Protocol PRN Reason: Hypoglycemia Protocol Stop: 08/11/20 22:05 Glucose (Glucose 40% Gel 15 Gm Tube) 15 - 30 gm PO UD PRN; Protocol PRN Reason: Hypoglycemia Protocol Stop: 08/11/20 22:05 Insulin Aspart (Insulin Aspart 100 Units/Ml 3 Ml Pen) 0 units SC ACHS [facility] Stop: 08/11/20 22:09 Last Admin: 07/14/20 17:56 Dose: 1 units Documented by: Insulin Glargine (Insulin Glargine Solostar 100 Units/Ml 3 Ml Pen) 5 units SC HS [facility] Stop: 08/11/20 22:14 Last Admin: 07/13/20 20:20 Dose: 5 units Documented by: Levetiracetam (Levetiracetam 500 Mg Tab) 2,000 mg PO BID [facility] Stop: 08/09/20 21:14 Last Admin: 07/14/20 08:42 Dose: 2,000 mg Documented by: Losartan Potassium (Losartan Potassium 50 Mg Tab) 100 mg PO DAILY [facility] Stop: 08/10/20 08:59 Last Admin: 07/14/20 08:43 Dose: 100 mg Documented by: Miscellaneous (Carbohydrates For Hypoglycemia ) 15 - 30 gm PO UD PRN PRN Reason: Hypoglycemia Protocol Stop: 08/11/20 22:05 Multivitamins (Multivitamin Tab) 1 tab PO DAILY [facility] Stop: 08/10/20 08:59 Last Admin: 07/14/20 08:42 Dose: 1 tab Documented by: Pantoprazole Sodium (Pantoprazole 40 Mg Tab) 40 mg PO QAM [facility] Stop: 08/10/20 08:59 Last Admin: 07/14/20 08:44 Dose: 40 mg Documented by: Rivaroxaban (Rivaroxaban 20 Mg Tab) 20 mg PO QDD [facility] Stop: 08/10/20 16:29 Last Admin: 07/14/20 17:54 Dose: 20 mg Documented by: Sennosides (Senna 8.6 Mg Tab) 17.2 mg PO DAILY [facility] Stop: 08/10/20 08:59 Last Admin: 07/14/20 08:43 Dose: 17.2 mg Documented by: Tamsulosin HCl (Tamsulosin Hcl 0.4 Mg Cap) 0.4 mg PO DAILY [facility] Stop: 08/10/20 08:59 Last Admin: 07/14/20 08:42 Dose: 0.4 mg Documented by:
[2020-07-14] MEDS: GABAPENTIN 300 MG CAP PO SCH (22:22)
[2020-07-14] MEDS: INSULIN GLARGINE SOLOSTAR 100 UNITS/ML 3 ML PEN SC SCH (22:28)
[2020-07-15] MEDS: DIVALPROEX DELAY RELEASE 250 MG TABEC PO SCH ×2 (05:21→14:09)
[2020-07-15] MEDS: FINASTERIDE 5 MG TAB PO SCH (09:24)
[2020-07-15] MEDS: amLODIPine BESYLATE 5 MG TAB PO SCH (09:24)
[2020-07-15] MEDS: carvediloL 3.125 MG TAB PO SCH (09:24)
[2020-07-15] MEDS: MULTIVITAMIN TAB PO SCH (09:24)
[2020-07-15] MEDS: levETIRAcetam 500 MG TAB PO SCH (09:24)
[2020-07-15] MEDS: LOSARTAN POTASSIUM 50 MG TAB PO SCH (09:24)
[2020-07-15] MEDS: SENNA 8.6 MG TAB PO SCH (09:25)
[2020-07-15] MEDS: PANTOprazole 40 MG TAB PO SCH (09:25)
[2020-07-15] MEDS: TAMSULOSIN HCL 0.4 MG CAP PO SCH (09:25)
[2020-07-15] MEDS: INSULIN ASPART 100 UNITS/ML 3 ML PEN SC SCH ×3 (09:28→14:18)
--- NOTE | 2020-07-15 12:45 | Discharge Summary ---
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 He was discharged from the hospital after his surgery, became altered and presented again to [facility] ER on 06/29 where he was transferred to [facility]. During this hospitalization continuous EEG monitoring revealed intermittent seizures. Antiepileptic medications were titrated and he was ultimately discharged on 07/04 to home. This was last Tuesday. reports over the weekend and especially Tuesday the patient looked good and was ambulating and mentating at his baseline. Tuesday night however, he became more fatigued and began to stare through her on occasion. He appeared to glaze over for several seconds at a time and then proceeded to say words that were clear but demonstrated disorientation. Questionable hallucination was present. Since Tuesday night he has remained very fatigued and has slept most of the day. He has been apathetic to food. The patient denies any pain, difficulty swallowing, headache, visual issues, or other concerns. He is oriented to person and time but thinks he is in [facility]. He was able to swallow his morning pills this morning but otherwise has not tolerated anything by mouth for the last 48 hours including his medications. The patient denies any nausea or vomiting or upset stomach. His Xarelto was recently started around 4 to 5 days ago, with initial CT scan of the head revealing no evidence of ramandeep hemorrhage. 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 reports he is supposed to stay on lifelong anticoagulation. Keppra is a sedating medication which is new for him and there have been some other minor medication changes. He was also given methocarbamol by his surgeon for presumed neck spasms, which states he has not had. The dosage on this has been reduced, however we dis cussed holding this altogether. Urinalysis appears clear. There are no respiratory symptoms, no fevers or chills reported. Lab work is not supportive of infection as a cause for the change. Admission Exam Per Admitting Provider CONSTITUTIONAL: WNWD, vitals as above, generally appears fatigued but is following commands and is in NAD. EYES: EOMI bilaterally-although he could demonstrate this in all planes, he required significant prompting to perform each task, PERRL, normal conjunctivae, no scleral icterus, no fundoscopic abnormality ENT: external ear and nose normal, oropharynx clear NECK: trachea midline RESPIRATORY: clear to auscultation bilaterally, no crackles, rales or wheezes, normal respiratory effort CARDIOVASCULAR: regular rate and rhythm, S1 and 2 heard without murmurs, gallops or rubs, no JVD, no peripheral edema GASTROINTESTINAL: soft, nontender, nondistended, no guarding. MUSCULOSKELETAL: strength 5/5 throughout, able to move all extremities equally, head is normocephalic and atraumatic. Tried to sit him up on side of bed but he eased himself back down on his back. Did not pursue additional trial of this. Requires minimal assistance. SKIN: warm and dry NEUROLOGIC: patellar DTRs 2+ bilat. brachioradialis reflex was 2/4 bilat, PERRL, EOMI, no facial palsy, no dysarthria. CN 2-12 grossly intact, no sensory deficit, sleepy but easily arousable and following commands, normal speech, no tremor. Timmy performed well but slowly, finger to nose assessment performed accurately but with time. Heel to funes performed accurately bilaterally. PSYCHIATRIC: alert cooperative and oriented to person, place and time. Principal Diagnosis Acute metabolic encephalopathy Weakness Fatigue Seizure History of pulmonary embolism Discharge Exam CONSTITUTIONAL: WNWD, vitals as above, NAD EYES: normal conjunctivae, no scleral icterus ENT: external ear and nose normal, MMM NECK: trachea midline RESPIRATORY: clear to auscultation bilaterally, no crackles, rales or wheezes, normal respiratory effort CARDIOVASCULAR: regular rate and rhythm, S1 and 2 heard without murmurs, gallops or rubs, no JVD, no peripheral edema GASTROINTESTINAL: soft, nontender, nondistended, no guarding. MUSCULOSKELETAL: Generalized weakness,moving around independently, no gross focal deficits. Able to move all extremities equally, head is normocephalic and atraumatic. SKIN: warm and dry, cranial joan have been removed. NEUROLOGIC: No facial palsy, no dysarthria. CN 2-12 grossly intact. PSYCHIATRIC: alert cooperative, oriented to person place and time. Discharge Data Allergies Allergy/AdvReac Type Severity Reaction Status Date / Time erythromycin base AdvReac Unknown nausea/vomi Verified 07/10/20 18:25 ting Consultations 07/10/20 16:55 ED Decision to Admit Stat 07/10/20 20:21 Consult Neurology Routine Ordered Studies Laboratory Results WBC 5.82 K/uL (4.8-10.8) 07/13/20 06:56 RBC 4.61 M/uL (4.7-6.1) L 07/13/20 06:56 Hgb 14.1 g/dL (14.0-18.0) 07/13/20 06:56 Hct 41.9 % (42-52) L 07/13/20 06:56 MCV 90.9 fL (80-100) 07/13/20 06:56 MCH 30.6 pg (25-34) 07/13/20 06:56 MCHC 33.7 g/dL (32-36) 07/13/20 06:56 RDW Std Deviation 43.0 fL (36.4-46.3) 07/13/20 06:56 RDW Coeff of Diandra 13.0 % (11.5-14.5) 07/13/20 06:56 Plt Count 145 K/uL (130-400) 07/13/20 06:56 MPV 10.2 fL (7.4-10.4) 07/13/20 06:56 Immature Gran % (Auto) 1.2 % 07/10/20 15:29 Neut % (Auto) 60.5 % 07/10/20 15:29 Lymph % (Auto) 21.5 % 07/10/20 15:29 Guadalupe % (Auto) 14.6 % 07/10/20 15:29 Eos % (Auto) 2.1 % 07/10/20 15:29 Baso % (Auto) 0.1 % 07/10/20 15:29 Neut # (Auto) 4.70 K/uL (1.4-6.5) 07/10/20 15:29 Lymph # (Auto) 1.67 K/uL (1.2-3.4) 07/10/20 15:29 Guadalupe # (Auto) 1.13 K/uL (0.11-0.59) H 07/10/20 15:29 Eos # (Auto) 0.16 K/uL (0-0.5) 07/10/20 15: Baso # (Auto) 0.01 K/uL (0-0.2) 07/10/20 15: Immature Gran # (Auto) 0.09 K/uL (0.00-0.02) H 07/10/20 15: PT 11.1 Seconds (9.0-12.0) 07/10/20 15: INR 1.1 (0.9-1.1) 07/10/20: APTT 28.4 Seconds (21.0-31.0) 07/10/20 15: PTT Ratio 1.1 07/10/20 15: VBG pH 7.43 (7.36-7.41) H 07/10/20: VBG pCO2 48 mmHg (38-50) 07/10/20 15: VBG pO2 22 mmHg 07/10/20: VBG HCO3 31 mmol/L 07/10/20: VBG O2 Saturation < 60.0 % 07/10/20 15: VBG Base Excess 5.5 mEq/L 07/10/20 15: Barometric Pressure 731.2 mm/Hg 07/10/20 15: Sodium 137 mmol/L (136-145) 07/13/20 06:56 Potassium 3.5 mmol/L (3.5-5.1) 07/13/20 06:56 Chloride 104 mmol/L (98-107) 07/13/20 06:56 Carbon Dioxide 28 mmol/L (21-32) 07/13/20 06:56 Anion Gap 5.0 (3-11) 07/13/20 06:56 BUN 27 mg/dl (7-18) H 07/13/20 06:56 Creatinine 0.95 mg/dl (0.6-1.4) 07/13/20 06:56 Est Cr Clr Drug Dosing 74.0 ml/min 07/13/20 06:56 Est GFR ( Amer) 93.0 07/13/20 06:56 Est GFR (Non-Af Amer) 80.2 07/13/20 06:56 BUN/Creatinine Ratio 28.6 (10-20) H 07/13/20 06:56 Glucose 101 mg/dl (70-99) H 07/13/20 06:56 POC Glucose 161 mg/dl (70-99) H 07/15/20 12:04 Lactate 0.9 mmol/L (0.4-2.0) 07/10/20 16:58 Calcium 8.1 mg/dl (8.5-10.1) L 07/13/20 06:56 Phosphorus 3.1 mg/dl (2.5-4.9) 07/13/20 06:56 Magnesium 2.2 mg/dl (1.8-2.4) 07/13/20 06:56 Ammonia < 10.0 umol/L (11-32) L 07/10/20 16:58 Troponin I < 0.015 ng/ml (0-0.045) 07/10/20 15:29 Lipase 112 U/L (73-393) 07/10/20 15:29 Procalcitonin < 0.05 ng/ml (0-0.5) 07/10/20 16:58 Prolactin 8.75 ng/ml 07/10/20 16:58 Urine Color Yellow 07/10/20 15:45 Urine Appearance Clear (Clear) 07/10/20 15:45 Urine pH 7.0 (4.5-7.5) 07/10/20 15:45 Ur Specific [place] 1.022 (1.000-1.030) 07/10/20 15:45 Urine Protein Negative (Negative) 07/10/20 15:45 Urine Glucose (UA) Negative (Negative) 07/10/20 15:45 Urine Ketones 1+ (Negative) H 07/10/20 15:45 Urine Blood Negative (Negative) 07/10/20 15:45 Urine Nitrite Negative (Negative) 07/10/20 15:45 Urine Bilirubin Negative (Negative) 07/10/20 15:45 Urine Urobilinogen Negative (Negative) 07/10/20 15:45 Ur Leukocyte Esterase Negative (Negative) 07/10/20 15:45 Valproic Acid 108 mcg/ml (50-100) H 07/13/20 06:56 COVID-19 Eval Order CovFluRsv at [facility] 07/10/20 16:55 SARS-CoV-2 (PCR) NEGATIVE (Negative) 07/10/20 16:55 Influenza Type A (PCR) Negative (Neg) 07/10/20 16:55 Influenza Type B (PCR) Negative (Neg) 07/10/20 16:55 RSV (RT-PCR) Negative (Neg) 07/10/20 16:[address] 07/10/20 15:15 CT head/brain wo con CLINICAL HISTORY: Arm weakness. Difficulty with speech. Recent brain surgery. COMPARISON STUDY: 06/28/2020 TECHNIQUE: Axial CT of the brain is performed from the vertex to the skull base. IV contrast was not administered for this examination. A dose lowering technique was utilized adhering to the principles of ALARA. CT DOSE: 1084.37 mGycm FINDINGS: There are postsurgical changes of a right frontotemporal craniotomy. There are overlying skin joan. There has been resolution of the previously identified pneumocephalus. There is persistent but decreasing extra-axial fluid. 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 There is no CT evidence of acute cortical infarction. There is no hydrocephalus. There is no significant midline shift. There is no evidence of acute sinusitis IMPRESSION: 1. 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 Resolution of the previously identified pneumocephalus 3. Persistent but decreasing extra-axial fluid. 4. No acute findings. ACT 112: Negative or not required by law. Electronically signed by: Omid Schneider M.D. 07/10/2020 4:04 PM Brain MRI 07/11/20 10:26 MRI OF THE BRAIN WITHOUT CONTRAST CLINICAL HISTORY: new AMS, h/o GBM removal /, h/o seizure COMPARISON STUDY: MRI of the brain June 09, 2020. Head CT July 10, 2020. TECHNIQUE: Utilizing a 1.5 Anum magnet and dedicated coil, multiplanar, multiecho imaging of the brain was performed without IV contrast. FINDINGS: This exam is significantly compromised by motion artifact. There are no foci of restricted diffusion to suggest acute infarct. Postoperative findings consistent with right frontotemporal craniotomy are noted. Right temporal lobe or second cavity measures 3.4 x 1.8 cm. Evaluation for residual tumor suboptimal given lack of postcontrast imaging but no definite residual tumor is identified on this examination. Note is made of bilateral extra axial fluid collections, right larger than left. The right-sided collection measures 9 mm in thickness. The right-sided collection is either unchanged or slightly increased since head CT of July 10, 2020. Basal cisterns are patent. Ventricular system is stable. There is no evidence for hydrocephalus. Fluid within the right frontotemporal scalp is noted. This is probably postsurgical. IMPRESSION: 1. Exam significantly compromised by motion artifact. No acute intracranial findings. No evidence for acute infarction. 2. Stable postoperative findings within the right temporal lobe. Status post right frontotemporal craniotomy. Bilateral extra-axial fluid collections, right larger than left. The right collection is either unchanged or slightly increased since prior head CT. 3. No evidence for hydrocephalus. ACT 112: Negative or not required by law. Electronically signed by: Edmundo Lara M.D. 07/11/2020 5:37 PM Hospital Course (1) Acute metabolic encephalopathy: (2) Weakness: (3) Fatigue: (4) Seizure: The patient is a 69-year-old man with a recent resection of a glioblastoma multiforme on 06/24/2020 complicated by status epilepticus for which he spent 1 week at [facility]. He was home approximately 2 days and became extremely fatigued and generally weak prompting presentation to [facility] ER. He is overall oriented and following instructions with some residual deficits from the surgery, however he is too weak to go home at this point. Therefore he was admitted to the hospitalist service and neurology was consulted. Prior to the admission a questionable transfer to [facility] was considered given the level of lethargy and possibility of adjusting his AED medications. This however would only safely be done on continuous EEG monitoring, not available at this facility. However, the transfer was denied and he subsequently underwent a routine EEG the following morning. This revealed generalized slowing with no epileptiform activity. He remained on telemetry for several days and did not have any overt evidence of seizure activity. He overall continued to improve from a mental and physical standpoint and levels of valproic acid and Keppra were drawn and monitored. Of note Keppra level is a reference lab and this was not back prior to discharge. Physical and Occupational Therapy both worked with the patient and felt he was safe to discharge home with family support and home health. Patient's was notably distraught and had a difficult time deciding on the disposition. She ultimately opted to take him home with family support and home health after couple of days of consideration. At time of discharge she was hemodynamically stable and afebrile and tolerating p.o. He was mentating and ambulating at baseline and oxygenating well on room air. A brain MRI without contrast was performed during this hospital stay revealing no evidence of hydrocephalus and stable postoperative findings in the right temporal lobe. He is status post right frontotemporal craniotomy with bilateral extra-axial fluid collections right larger than left. There is no evidence of acute infarction or other acute intracranial findings. Close primary care follow-up was recommended to ensure he is still doing well after time at home. Additionally, the multidisciplinary appointment including neurosurgery and oncology to direct the patient and family on future care plans will need to be rescheduled. Total Time Total Time Spent Total Time Spent (In Minutes): 60 Total Time Includes: Examination of the Patient, Discharge Planning, Medication Reconciliation and Communication With Other Providers Discharge Plan Discharge Items Patient Disposition: Home - Home Health Services Reason For Visit: AMS S/P BRAIN SURGERY H/O SEIZURES Discharge Diagnosis: Acute metabolic encephalopathy Weakness Fatigue Seizure History of pulmonary embolism Follow-up/Referrals: Apolinar Wayne DO [Primary Care Provider] - Stand-Alone Forms: [facility], Smoking Cessation Medications and DC Order Prescriptions: No Action multivitamin Tablet 1 tab PO DAILY RF: 0 amlodipine 10 mg Tablet 10 mg PO DAILY RF: 0 finasteride 5 mg Tablet 5 mg PO QAM RF: 0 pantoprazole 40 mg Tablet,Delayed Release (Dr/Ec) 40 mg PO QAM RF: 0 tamsulosin 0.4 mg Capsule 0.4 mg PO DAILY RF: 0 Lantus Solostar U-100 Insulin 100 unit/mL (3 mL) Insulin Pen 20 unit SUBCUT HS RF: 0 gabapentin 300 mg capsule 300 mg PO HS RF: 0 carvedilol 3.125 mg tablet 3.125 mg PO DAILY RF: 0 losartan 50 mg Tablet 100 mg PO DAILY RF: 0 methocarbamol 500 mg Tablet 500 mg PO BID RF: 0 sennosides [Mitali-arnaud] 8.6 mg Tablet 17.2 mg PO DAILY RF: 0 divalproex 250 mg tablet,delayed release (DR/EC) 750 mg PO Q8H RF: 0 insulin aspart U-100 [Novolog Flexpen U-100 Insulin] 100 unit/mL (3 mL) insulin pen 0 unit SUBCUT DIRECTED RF: 0 levetiracetam 1,000 mg tablet 2,000 mg PO BID RF: 0 Xarelto 20 mg tablet 20 mg PO DAILY RF: 0 Admission Data Admit Date/Time: 07/10/20 17:57 Attending Provider: Kendra Robledo Admit Provider: Kendra Robledo Primary Care Provider: Apolinar Wayne Other Providers: Kendra Robledo ; Chaka Avila ; [facility],Home Healthcare ; [facility] Health Attestation I certify that this patient is under my care and that I, or a physicians administrative sales assistant working with me, had a face to-face encounter that meets the home health [id number] encounter requirements with this patient. The encounter with the patient was in whole, or in part, for the following medical condition, which is the primary reason for home health care (list medical condition): Seizures I certify that, based on my findings, the following services are medically necessary home health services: My clinical findings support the need for the above services because: Caregiver Instruct Med Mgmt, Safety, Disease Process, Signs to Report Skilled Nsg Assessment Further, I certify that my clinical findings support that this patient is homebound (i.e. absences from home require considerable and taxing effort and are for medical reasons or temple services or infrequently or of short duration when for other reasons) because: Transportation Assistance/Unable to Leave Home Unassisted Certification for Home Health Services: Based on the above findings, I certify that this patient is confined to the home and needs intermittent custodial care, physical therapy and/or speech therapy or continues to need occupational therapy. The patient is under my care, and I have initiated the establishment of the plan of care. This patient will be followed by a physician who will periodically review the plan of care.
== END 2020-07-15 14:49 | disposition home health service (06) | DRG 71 ==
LOC: ED 14:11 → 2S 17:57 → 3W 07-13 14:41

== ENCOUNTER 2024-03-02 17:05 | Inpatient (IN) ==
--- NOTE | 2024-03-02 17:25 | Emergency Department Note ---
Impression & Plan Weakness, Glioblastoma of temporal lobe, Recurrent brain tumor, Fall ED Provider Note NAME: JADE VALENCIA AGE: 73 SEX: M : 1950 ARRIVES VIA: Ambulance INFORMANT: Patient ED PROVIDER(S): Jaquan Ge DO CHIEF COMPLAINT: Fall HPI: Patient is a 73-year-old male with a past medical history of a GBM and resection on 30 January just discharged yesterday from [facility]. Since being at home he has had 2 falls in the past 24 hours. He can no longer walk. Patient denies any headache or change in vision. No chest pain or shortness of breath. No belly pain. No new weakness or numbness in the arms or legs. No dysuria, urgency, or frequency. No other exacerbating or remitting factors. ADDITIONAL HISTORY OBTAINED: Per HPI Chronic Medical/Social Conditions Affecting Care: Per HPI PAST MEDICAL HISTORY:See Below PAST SURGICAL HISTORY:See Below FAMILY HISTORY:See Below SOCIAL HISTORY:See Below HOME MEDICATIONS:See Below ALLERGIES:See Below VITALS:See Below PHYSICAL EXAMINATION: GENERAL: alert, well appearing, well nourished, no distress, non-toxic HEAD: normal cephalic, contusion over the left eyebrow EYE EXAM: normal conjunctiva, PERRL and EOM's grossly intact OROPHARYNX: no exudate, no erythema, lips, buccal mucosa, and tongue normal and mucous membranes are moist NECK: supple, no nuchal rigidity, no adenopathy, non-tender CHEST: stable to compression anteriorly and posteriorly LUNGS: clear to auscultation. Normal chest wall mechanics HEART: no murmurs, S1 normal and S2 normal ABDOMEN: abdomen soft, non-tender, normo-active bowel sounds, no masses, no rebound or guarding. PELVIS: stable to compression anteriorly and posteriorly BACK: Back is symmetrical on inspection and there is no deformity, no midline tenderness, no CVA tenderness. UPPER EXTREMITIES: full active and passive range of motion of all joints without tenderness to palpation LOWER EXTREMITIES: full active and passive range of motion of all joints without tenderness to palpation NEURO EXAM: Oriented to person, place and year, cranial nerves II-XII intact, normal speech, no weakness of arms, no weakness of legs. GCS: 15. MEDICAL DECISION MAKING: Patient is a 73-year-old male who presents ER for the above-stated complaint. IV was established and blood work was obtained. Labs show no significant leukocytosis. Mild anemia at 13. BMP along with LFTs and bilirubin was unremarkable. Troponin was negative. Lipase was normal. Chest x-ray and x-ray of the pelvis was unremarkable. CT head and cervical spine was negative. Patient was complete neurologically intact on my exam. Updated at bedside. With the recurrent falls, discussed case with the hospitalist for further evaluation, management, and treatment. Consults/Care Managements Discussions: Per [facility] Triage Nursing notes reviewed. Limited review of prior medical records performed Vital Signs: reviewed and remarkable for no significant abnormalities Differential diagnosis: Differential diagnoses include major intracranial, cervical, spinal, thoracic, abdominal, pelvic and neurologic injury. Fracture, contusion, sprain, strain, laceration, abrasions included as well. ER treatment provided: See below Diagnostics interpreted by me include EKG and cardiac monitoring as listed below: -Cardiac Monitoring: An order was placed for continuous cardiac monitoring. The monitor shows a rate of 90 with sinus rhythm. -ECG: Sinus rhythm rate of 92 Normal axis No PVCs QTc 445 -Laboratory studies:Interpreted by me as stated above in MDM and shown below. Imaging studies: Xrays: As interpreted by me: Portable AP upright 1 view of the chest shows no focal Lutrate CTs show: CTs of the head were negative per radiology Procedures: None Critical Care: None Past Med/Surg History Problem List (Updated 03/02/24 @ 22:23 by Jaquan Ge DO) Fall (Acute) Weakness (Acute) Frequent headaches (Acute) Vision changes (Acute) Recurrent brain tumor (Chronic 12/06/23) H/O craniotomy 06/24/20 for right temporal GBM 01/31/24 at [facility] 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) Medical History (Updated 03/02/24 @ 22:23 by Jaquan Ge DO) Diabetes Pulmonary hypertension Steroid-induced hyperglycemia Insomnia BPH (benign prostatic hyperplasia) Degenerative disc disease Severe protein-calorie malnutrition Fatigue Acute metabolic encephalopathy DVT prophylaxis Acute alteration in mental status History of pulmonary embolism Seizure History of agent [place] exposure Anxiety Acute deep vein thrombosis (DVT) of left lower extremity Elevated beta-hydroxybutyrate Elevated AST (SGOT) Hyperglycemia due to type 2 diabetes mellitus Acute pulmonary embolism BPH (benign prostatic hyperplasia) Hypertension Barretts esophagus Dyslipidemia DM type 2 (diabetes mellitus, type 2) Surgical History (Updated 03/02/24 @ 19:50 by Sarah Leon PA-C) H/O prostate biopsy S/P brain surgery History of cataract surgery LEFT History of anesthesia reaction REMOTE HX - WITH ONE SURGERY (PT UNSURE WHAT SURGERY) - SLEPT FOR 2 DAYS AFTER, NO -RE-OCCURENCE History of endoscopy History of colonoscopy History of foot surgery L History of tonsillectomy and adenoidectomy H/O shoulder surgery R X 2 - MOST RECENT: DEC 2018 Family History Father , 72yo Diabetes Hypertension Sister Cancer Brain tumor 42yo Mother , 80yo Myocardial infarction Son No problems noted. Son No problems noted. 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 Feels Safe at Home: Yes Diet: regular caffeine: Yes (2 cups/day) during the past year weight has: decreased > 10 lbs Assistive Devices: Walker Allergies Allergies Allergy/AdvReac Type Severity Reaction Status Date / Time erythromycin base AdvReac Unknown nausea/vomi Verified 12/11/21 09:20 ting Home Meds Home Medications Medication Instructions Recorded Confirmed amlodipine 10 mg tablet 10 mg PO DAILY 06/18/18 03/02/24 finasteride 5 mg tablet 5 mg PO QAM 06/18/18 03/02/24 pantoprazole 40 mg tablet,delayed 40 mg PO QAM 06/18/18 03/02/24 release tamsulosin 0.4 mg capsule 0.4 mg PO DAILY 06/18/18 03/02/24 multivitamin 1 tab PO DAILY 08/21/19 03/02/24 rivaroxaban 20 mg tablet (Xarelto) 20 mg PO DAILY 07/10/20 03/02/24 atorvastatin 40 mg tablet 40 mg PO DAILY 07/31/20 03/02/24 carvedilol 3.125 mg tablet 3.125 mg PO BID 07/31/20 03/02/24 diclofenac sodium 1 % topical gel 2 g topical QID PRN Pain 07/31/20 03/02/24 polyethylene glycol 3350 17 17 g PO DAILY PRN constipation 07/31/20 03/02/24 gram/dose oral powder (Miralax) insulin glargine 100 unit/mL (3 16 unit subcut DAILY 08/01/20 03/02/24 mL) subcutaneous pen (Lantus Solostar U-100 Insulin) clobetasol 0.05 % topical ointment 1 applic topical DAILY PRN Itching 07/10/21 03/02/24 docusate sodium 50 mg capsule 50 mg PO BID 07/10/21 03/02/24 ergocalciferol (vitamin D2) 10 mcg 10 mcg PO DAILY 07/10/21 03/02/24 (400 unit) tablet lorazepam 0.5 mg tablet 0.5 mg buccal TID PRN Anxiety 07/10/21 03/02/24 ondansetron HCl 8 mg tablet 8 mg PO Q8H PRN Nausea 07/10/21 03/02/24 sennosides 8.6 mg tablet (Mitali-arnaud) 17.2 mg PO DAILY 07/10/21 03/02/24 sertraline 100 mg tablet (Zoloft) 100 mg PO DAILY 12/27/23 03/02/24 clotrimazole 10 mg haroldo 10 mg PO UD 03/02/24 03/02/24 divalproex 250 mg tablet,delayed 500 mg PO BID 03/02/24 03/02/24 release empagliflozin 25 mg tablet 25 mg PO DAILY 03/02/24 03/02/24 (Jardiance) gabapentin 300 mg capsule 300 mg PO TID 03/02/24 03/02/24 levetiracetam 750 mg tablet 750 mg PO BID 03/02/24 03/02/24 losartan 100 mg tablet 100 mg PO DAILY 03/02/24 03/02/24 magnesium oxide 420 mg tablet 420 mg PO DAILY 03/02/24 03/02/24 Results & Data (ED) Vital Signs Vital Signs - 24 hr 03/02/24 17:07 03/02/24 17:07 03/02/24 17:07 Temperature 36.8 C 36.8 C 36.8 C Temperature Source Oral Oral Pulse Rate 89 89 Pulse Rate [Apical] 89 Respiratory Rate 12 12 12 Blood Pressure 109/77 109/77 Blood Pressure [Right Arm] 109/77 Blood Pressure Mean 87 Blood Pressure Mean [Right Arm] 87 Blood Pressure Position Semi-fowlers Blood Pressure Position [Right Arm] Semi-fowlers Pulse Oximetry 97 97 97 Oxygen Delivery Method Room Air Room Air Room Air Oxygen Flow Rate 0 Sepsis Recent Fever Within 48 Hours No Sepsis New/Unexplained Change in Mental Status Yes Sepsis Action Taken by Nursing No Action Required 03/02/24 17:21 03/02/24 17:44 03/02/24 17:49 Temperature Temperature Source Pulse Rate 90 93 H Pulse Rate [Apical] Respiratory Rate 12 Blood Pressure Blood Pressure [Right Arm] Blood Pressure Mean Blood Pressure Mean [Right Arm] Blood Pressure Position Blood Pressure Position [Right Arm] Pulse Oximetry 97 Oxygen Delivery Method Room Air Room Air Oxygen Flow Rate Sepsis Recent Fever Within 48 Hours Sepsis New/Unexplained Change in Mental Status Sepsis Action Taken by Nursing 03/02/24 18:34 Temperature Temperature Source Pulse Rate Pulse Rate [Apical] 86 Respiratory Rate 18 Blood Pressure Blood Pressure [Right Arm] 131/80 Blood Pressure Mean Blood Pressure Mean [Right Arm] 97 Blood Pressure Position Blood Pressure Position [Right Arm] Semi-fowlers Pulse Oximetry 94 Oxygen Delivery Method Room Air Oxygen Flow Rate Sepsis Recent Fever Within 48 Hours Sepsis New/Unexplained Change in Mental Status Sepsis Action Taken by Nursing Laboratory Data 03/02/24 17:21 03/02/24 17:21 Lab Results 03/02/24 03/02/24 03/02/24 Range/Units 17:21 17:26 17:28 WBC 5.08 (4.8-10.8) K/ul RBC 4.19 L (4.70-6.10) M/uL Hgb 13.6 L (14.0-18.0) g/dl POC Hgb 13.3 L (14.0-18.0) g/dl Hct 40.0 L (42.0-52.0) % POC Hct 39 L (42-52) % MCV 95.5 (80.0-100.0) fL MCH 32.5 (25.0-34.0) pg MCHC 34.0 (32.0-36.0) g/dL RDW Std Deviation 46.6 H (36.4-46.3) fL RDW Coeff of Diandra 13.4 (11.5-14.5) % Plt Count 221 (130-400) K/uL MPV 9.0 L (9.4-12.4) fL Immature Gran % (Auto) 3.5 % Neut % (Auto) 62.8 % Lymph % (Auto) 20.5 % [place] % (Auto) 10.8 % Eos % (Auto) 1.8 % Baso % (Auto) 0.6 % Neut # (Auto) 3.19 (1.40-6.50) K/uL Lymph # (Auto) 1.04 L (1.20-3.40) K/uL [place] # (Auto) 0.55 (0.11-0.59) K/uL Eos # (Auto) 0.09 (0.00-0.50) K/uL Baso # (Auto) 0.03 (0.00-0.20) K/uL Immature Gran # (Auto) 0.18 (0.01-0.20) K/uL POC Sodium 137 (135-144) mmol/L Sodium 138 (136-145) mmol/L POC Potassium 4.2 (3.3-5.0) mmol/L Potassium 4.2 (3.5-5.1) mmol/L POC Chloride 99 L (101-112) mmol/L Chloride 100 (98-107) mmol/L Carbon Dioxide 31 (21-32) mmol/L POC Total CO2 28 (24-31) mmol/L Anion Gap 7 (3-11) POC Anion Gap 15.0 L (16-25) mmol/L POC BUN 23 H (7-18) mg/dl BUN 24 H (6-23) mg/dl Creatinine 0.86 (0.6-1.4) mg/dl POC Creatinine 0.9 (0.6-1.3) mg/dl Est Cr Clr Drug Dosing 78.7 ml/min eGFR 90.30 BUN/Creatinine Ratio 27.9 H (10-20) Glucose 233 H (70-99(Fasting)) mg/dl POC Glucose (other) 231 H (70-99) mg/dl Calcium 9.2 (8.6-10.3) mg/dl POC Ioniz Calcium [place] 1.18 (1.12-1.32) mmol/l Total Bilirubin 0.4 (0.2-1.0) mg/dl AST 15 (13-39) U/L ALT 17 (7-52) U/L Alkaline Phosphatase 88 (34-104) U/L Troponin I High Sens 6.7 (0-20) pg/ml Total Protein 6.5 (6.0-8.3) gm/dl Albumin 3.3 L (3.4-5.0) gm/dl Globulin 3.2 (2.5-4.0) gm/dl Albumin/Globulin Ratio 1.0 (0.9-2) Lipase 20 (11-82) U/L Urine Color Yellow Urine Appearance Clear (Clear) Urine pH 7.0 (4.5-7.5) Ur Specific [place] 1.044 H (1.000-1.030) Urine Protein Negative (Negative) Urine Glucose (UA) 3+ H (Negative) Urine Ketones Negative (Negative) Urine Blood Negative (Negative) Urine Nitrite Negative (Negative) Urine Bilirubin Negative (Negative) Urine Urobilinogen Negative (Negative) Ur Leukocyte Esterase Negative (Negative) Administered Medications Carvedilol (Carvedilol 3.125 Mg Tab) 3.125 mg PO BID ALLEY Stop: 04/01/24 20:59 Last Admin: 03/02/24 21:52 Dose: 3.125 mg Documented By: GIACOMO Divalproex Sodium (Divalproex Delay Release 500 Mg Tab) 500 mg PO BID ALLEY Stop: 04/01/24 20:59 Last Admin: 03/02/24 21:52 Dose: 500 mg Documented By: GIACOMO Docusate Sodium (Docusate Sodium 100 Mg Cap) 100 mg PO BID ALLEY Stop: 04/01/24 20:59 Last Admin: 03/02/24 21:52 Dose: 100 mg Documented By: GIACOMO Gabapentin (Gabapentin 300 Mg Cap) 300 mg PO TID ALLEY Stop: 04/01/24 20:59 Last Admin: 03/02/24 21:52 Dose: 300 mg Documented By: GIACOMO Insulin Aspart (Insulin Aspart Per Unit Charge) 0 units SC ACHS ALLEY Stop: 04/01/24 20:59 Last Admin: 12/13/24 21:52 Dose: 1 units Documented By: GIACOMO Co-signed By: VENU Insulin Glargine (Lantus Per Unit Charge) 7 units SQ BID ALLEY Stop: 04/01/24 20:59 Last Admin: 03/02/24 21:52 Dose: 7 units Documented By: GIACOMO Co-signed By: VENU Levetiracetam (Levetiracetam 250 Mg Tab) 750 mg PO BID ALLEY Stop: 04/01/24 20:59 Last Admin: 03/02/24 21:52 Dose: 750 mg Documented By: GIACOMO Discontinued Medications Acetaminophen (Acetaminophen 325 Mg Tab) 650 mg PO NOW STA Stop: 03/02/24 18:56 Last Admin: 03/02/24 19:02 Dose: 650 mg Documented By: CEF Sodium Chloride (Nss) 1,000 mls @ 999 mls/hr IV .Q1H1M ONE Stop: 03/02/24 18:24 Last Infusion: 03/02/24 21:47 Dose: Infused Documented By: Admin: 03/02/24 18:57 Dose: 999 mls/hr Documented By: CEF Lorazepam (Lorazepam 2 Mg/1 Ml Vial) 0.5 mg IV NOW STA Stop: 03/02/24 21:34 Last Admin: 03/02/24 21:55 Dose: 0.5 mg Documented By: GIACOMO Imaging Data Radiologist's Impression: Cervical Spine CT 03/02/24 17:24 EXAM: CT Cervical Spine Without Intravenous Contrast INDICATION: Fall. Anticoagulated. TECHNIQUE: Axial computed tomography images of the cervical spine without intravenous contrast. Sagittal and coronal reformatted images were created and reviewed. This CT exam was performed using one or more of the following dose reduction techniques: automated exposure control, adjustment of the mA and/or kV according to patient size, and/or use of iterative reconstruction technique. COMPARISON: No relevant prior studies available. FINDINGS: Limitations: None. Vertebrae: Minimal diffuse facet hypertrophic change noted. Allowing for artifact from the shoulders, no fracture or subluxation noted. Discs/spinal canal/neural foramina: No significant disc space abnormality or stenosis. Soft tissues: No significant abnormality noted. Sinuses: There is trace chronic right sphenoid sinus mucosal thickening. Lung apices: No significant abnormality noted. Other findings: There is diffuse mild to space narrowing. No stenosis. IMPRESSION: No cervical fracture. ACT 112: Negative or not required by law. Electronically signed by Rashida Maynard 03-02-2024 6:29 PM Chest X-Ray 03/02/24 17:24 EXAM: Radiograph of the Chest 1 View INDICATION: Fall. TECHNIQUE: Frontal view of the chest. COMPARISON: 06/28/2020 FINDINGS: Lungs and pleural spaces: No consolidation or pulmonary edema. No pleural effusion or pneumothorax. Heart: Shape and configuration within normal limits allowing for technique. Mediastinum: Normal contour. Bones/joints: Degenerative changes noted throughout the spine and both shoulders. No lytic or blastic lesions noted. Soft tissues: No abnormality noted. No radiopaque foreign body noted. Upper abdomen: No abnormality noted. IMPRESSION: No acute cardiopulmonary disease. ACT 112: Negative or not required by law. Electronically signed by Rashida Maynard 03-02-2024 6:[address] 03/02/24 17:24 EXAM: CT Head Without Intravenous Contrast INDICATION: Fall today. Brain surgery last month. Anticoagulated. TECHNIQUE: Axial computed tomography images of the head/brain without intravenous contrast. Sagittal and/or coronal reformats are provided. Sagittal and coronal reformatted images were created and reviewed. This CT exam was performed using one or more of the following dose reduction techniques: automated exposure control, adjustment of the mA and/or kV according to patient size, and/or use of iterative reconstruction technique. COMPARISON: 02/29/2024 FINDINGS: Limitations: None. Brain and extra-axial spaces: There is encephalomalacia of the right temporal lobe in the middle cranial fossa. There is mild adjacent dural calcification and thickening. No hemorrhage or acute infarct. Bones/joints: Right temporal craniotomy changes. Chronic small vessel periventricular white matter hypodensity noted. Soft tissues: No significant abnormality noted. Vasculature: No acute abnormality noted. Sinuses: No layering fluid in the visualized portions of the paranasal sinuses. Mastoid air cells: No mastoid effusion. Orbits: No significant abnormality noted. IMPRESSION: Chronic changes. No acute disease. ACT 112: Negative or not required by law. Electronically signed by Rashida Maynard 03-02-2024 6:16 PM Pelvis X-Ray 03/02/24 17:25 EXAM: Radiographs of the Pelvis 1 View INDICATION: Fall. TECHNIQUE: Frontal view of the pelvis. COMPARISON: No relevant prior studies available. FINDINGS: Limitations: None. Bones/joints: No fracture, erosion or dislocation. Soft tissues: No abnormality noted. No radiopaque foreign body noted. IMPRESSION: No abnormality noted. ACT 112: Negative or not required by law. Electronically signed by Rashida Maynard 03-02-2024 6:53 PM Discharge Plan Visit Data Chief Complaint: Trauma Stated Complaint: WEAKNESS, AMS, FALL, ED Provider: Jaquan Ge Discharge Problem: Weakness, Glioblastoma of temporal lobe, Recurrent brain tumor, Fall Patient Disposition: Admitted As Inpatient Discharge Instructions Interventions: ED Discharge Assessment Last Done: 03/02/24 20:07 Discharge Problem: Fall Qualifiers: Encounter type: initial encounter Qualified Code(s): W19.XXXA - Unspecified fall, initial encounter
[2024-03-02 17:39] LABS: iSTAT Creatinine 0.9 mg/dl (0.6-1.3); iSTAT Hemoglobin 13.3 g/dl (14.0-18.0); iSTAT Ionized Calcium 1.18 mmol/l (1.12-1.32); iSTAT Potassium 4.2 mmol/L (3.3-5.0)
[2024-03-02 17:52] LABS: Appearance Urine Clear (Clear); Bilirubin Urine Negative (Negative); Blood Urine Negative (Negative); Color Urine Yellow; Glucose Urine UA 3+ (Negative); Ketones Urine Negative (Negative); Leukocyte Esterase Urine Negative (Negative); Nitrite Urine Negative (Negative); Protein Urine Negative (Negative); Specific Gravity Urine 1.044 (1.000-1.030); Urobilinogen Urine Negative (Negative)
[2024-03-02 17:53] LABS: Basophils # (auto) 0.03 K/uL (0.00-0.20); Basophils % (auto) 0.6 %; Eosinophils # (auto) 0.09 K/uL (0.00-0.50); Eosinophils % (auto) 1.8 %; Hemoglobin 13.6 g/dl (14.0-18.0); Immature Granulocytes # (auto) 0.18 K/uL (0.01-0.20); Immature Granulocytes % (auto) 3.5 %; Lymphocytes # (auto) 1.04 K/uL (1.20-3.40); Lymphocytes % (auto) 20.5 %; Mean Corpuscular Hemoglobin 32.5 pg (25.0-34.0); Mean Corpuscular Volume 95.5 fL (80.0-100.0); Monocytes # (auto) 0.55 K/uL (0.11-0.59); Monocytes % (auto) 10.8 %; Neutrophils # (auto) 3.19 K/uL (1.40-6.50); Neutrophils % (auto) 62.8 %; Platelet Count 221 K/uL (130-400); RDW Coefficient of Variation 13.4 % (11.5-14.5); RDW Standard Deviation 46.6 fL (36.4-46.3); Red Blood Count 4.19 M/uL (4.70-6.10); White Blood Count 5.08 K/ul (4.8-10.8)
[2024-03-02 18:07] LABS: Albumin Level 3.3 gm/dl (3.4-5.0); BUN Creatinine Ratio 27.9 (10-20); Bilirubin,Total 0.4 mg/dl (0.2-1.0); Calcium 9.2 mg/dl (8.6-10.3); Creatinine Clr Calc Pharmacy 78.7 ml/min; Globulin 3.2 gm/dl (2.5-4.0); Potassium 4.2 mmol/L (3.5-5.1); Total Protein 6.5 gm/dl (6.0-8.3)
[2024-03-02 18:12] LABS: Troponin I High Sensitivity 6.7 pg/ml (0-20)
--- NOTE | 2024-03-02 18:17 | CT Scan Report ---
EXAM: CT Head Without Intravenous Contrast INDICATION: Fall today. Brain surgery last month. Anticoagulated. TECHNIQUE: Axial computed tomography images of the head/brain without intravenous contrast. Sagittal and/or coronal reformats are provided. Sagittal and coronal reformatted images were created and reviewed. This CT exam was performed using one or more of the following dose reduction techniques: automated exposure control, adjustment of the mA and/or kV according to patient size, and/or use of iterative reconstruction technique. COMPARISON: 02/29/2024 FINDINGS: Limitations: None. Brain and extra-axial spaces: There is encephalomalacia of the right temporal lobe in the middle cranial fossa. There is mild adjacent dural calcification and thickening. No hemorrhage or acute infarct. Bones/joints: Right temporal craniotomy changes. Chronic small vessel periventricular white matter hypodensity noted. Soft tissues: No significant abnormality noted. Vasculature: No acute abnormality noted. Sinuses: No layering fluid in the visualized portions of the paranasal sinuses. Mastoid air cells: No mastoid effusion. Orbits: No significant abnormality noted. IMPRESSION: Chronic changes. No acute disease. ACT 112: Negative or not required by law. Electronically signed by Rashida Maynard 03-02-2024 6:16 PM
--- NOTE | 2024-03-02 18:29 | CT Scan Report ---
EXAM: CT Cervical Spine Without Intravenous Contrast INDICATION: Fall. Anticoagulated. TECHNIQUE: Axial computed tomography images of the cervical spine without intravenous contrast. Sagittal and coronal reformatted images were created and reviewed. This CT exam was performed using one or more of the following dose reduction techniques: automated exposure control, adjustment of the mA and/or kV according to patient size, and/or use of iterative reconstruction technique. COMPARISON: No relevant prior studies available. FINDINGS: Limitations: None. Vertebrae: Minimal diffuse facet hypertrophic change noted. Allowing for artifact from the shoulders, no fracture or subluxation noted. Discs/spinal canal/neural foramina: No significant disc space abnormality or stenosis. Soft tissues: No significant abnormality noted. Sinuses: There is trace chronic right sphenoid sinus mucosal thickening. Lung apices: No significant abnormality noted. Other findings: There is diffuse mild to space narrowing. No stenosis. IMPRESSION: No cervical fracture. ACT 112: Negative or not required by law. Electronically signed by Rashida Maynard 03-02-2024 6:29 PM
--- NOTE | 2024-03-02 18:53 | XRay Report ---
EXAM: Radiograph of the Chest 1 View INDICATION: Fall. TECHNIQUE: Frontal view of the chest. COMPARISON: 06/28/2020 FINDINGS: Lungs and pleural spaces: No consolidation or pulmonary edema. No pleural effusion or pneumothorax. Heart: Shape and configuration within normal limits allowing for technique. Mediastinum: Normal contour. Bones/joints: Degenerative changes noted throughout the spine and both shoulders. No lytic or blastic lesions noted. Soft tissues: No abnormality noted. No radiopaque foreign body noted. Upper abdomen: No abnormality noted. IMPRESSION: No acute cardiopulmonary disease. ACT 112: Negative or not required by law. Electronically signed by Rashida Maynard 03-02-2024 6:53 PM
--- NOTE | 2024-03-02 18:53 | XRay Report ---
EXAM: Radiographs of the Pelvis 1 View INDICATION: Fall. TECHNIQUE: Frontal view of the pelvis. COMPARISON: No relevant prior studies available. FINDINGS: Limitations: None. Bones/joints: No fracture, erosion or dislocation. Soft tissues: No abnormality noted. No radiopaque foreign body noted. IMPRESSION: No abnormality noted. ACT 112: Negative or not required by law. Electronically signed by Rashida Maynard 03-02-2024 6:53 PM
[2024-03-02] MEDS: SODIUM CHLORIDE 0.9% 1,000 ML IV ONE (18:57)
--- NOTE | 2024-03-02 19:01 | History & Physical Report ---
Date of Service March 02, 2024 Assessment & Plan (1) Weakness: (2) Glioblastoma: (3) H/O craniotomy: (4) Vision changes: (5) Frequent headaches: Plan: Patient is 73 year old male with PMH glioblastoma s/p surgical resection in 2020, with recurrence glioblastoma and s/p surgery 01/31/24 at [facility], history seizure with first glioblastoma without any recurrent seizures HTN, dyslipidemia, history DVT/PE, anticoagulated on Xarelto, DM II, pulmonary hypertension, PTSD, depression, GERD, BPH presented to ER with c/o increased weakness x 5 days. Was in [facility] and ambulating with walker upon discharge 6 days ago. Since home progressive bilateral leg weakness with two falls today. CT head: no acute intracranial findings CT c-spine: no acute cervical fracture Patient with postoperative headache, visual changes, BLE weakness, recurrent f alls S/P glioblastoma of temporal lobe surgery Obtain MRI brain Neuro checks Orthostatics Fall precautions PT/OT eval Neurology consult May need to consider discussion with [facility] neurosurgery tomorrow as able CBC, BMP in am (6) DM type 2 (diabetes mellitus, type 2): Plan: Insulin dependent A1c: 8.9 Continue home lantus Novolog sliding scale per protocol (7) Hypertension: Plan: SBP's low 100's Will hold home amlodipine. Continue home carvedilol Decrease home losartan from 100mg to 25mg daily and monitor BP's (8) Dyslipidemia: Plan: Continue atorvastatin (9) History of pulmonary embolism: Plan: History DVT/PE Anticoagulated on Xarelto Continue Xarelto (10) Seizure: Plan: History seizure after 1st glioblastoma in 2020. Denies recurrent seizures Continue levetiracetam, divalproex with drug levels pending (11) BPH (benign prostatic hyperplasia): Plan: Continue tamsulosin Bladder scan DVT Prophylaxis On Xarelto Admit med tele Full Code as per discussion with pt Follows with Dr Wayne for routine care Pt was seen and care coordinated with Dr Card. See addendum I spent a total of 61 minutes reviewing notes, outpatient records, labs, medication, coordinating, documenting and providing care for this patient excluding time spent in the performance of separately billed services. History of Present Illness Chief Complaint: weakness Primary Care Provider: Apolinar Wayne DO Patient is 73 year old male with PMH glioblastoma s/p surgical resection in 2020, with recurrence glioblastoma and s/p surgery 01/31/24 at [facility], history seizure with first glioblastoma without any recurrent seizures HTN, dyslipidemia, history DVT/PE, anticoagulated on Xarelto, DM II, pulmonary hypertension, PTSD, depression, GERD, BPH presented to ER with c/o increased weakness x 5 days. Reports prior to surgery using a cane. S/P surgery for glioblastoma on 01/31/24 at [facility]. States was in hospital for 2 weeks and was deconditioned and was transferred to [facility] for 4-5 days and was walking with walker upon discharge. Reports was discharged from [facility] 6 days ago. States after the surgery has lost peripheral vision intermittently and this has continued. Since surgery also reports OROPEZA front of head describes as throbbing pain that is intermittent. States OROPEZA gets better with Tylenol. Denies diplopia. Since being home has fallen twice. This morning fell in bedroom and this afternoon fell in kitchen. States bumped his head. Denies LOC or syncope. Denies any worsening OROPEZA or vision disturbance. Patient states sometimes feels lightheaded and states today felt lightheaded prior to fall. This lightheadedness seems to have started after surgery per patient. He feels he has become progressively weak with bilateral leg weakness over past 5 days. Denies any noted confusion or altered mental status. Reports urinary urgency and sensation of incomplete bladder emptying. Per outpatient note the tentative plan to start lomustine soon. reports no plans for additional radiation. Denies fever/chills, diaphoresis, N/V/D/C, OROPEZA, syncope, neck pain, CP, SOB, palpitations, cough, sore throat, otalgia, rhinorrhea, abdominal pain, paresthesias, extremity edema, rashes, dysuria, hematuria. Allergies Allergy/AdvReac Type Severity Reaction Status Date / Time erythromycin base AdvReac Unknown nausea/vomi Verified 12/11/21 09:20 ting Home Medications Medication Instructions Recorded Confirmed Type amlodipine 10 mg tablet 10 mg PO DAILY 06/18/18 03/02/24 History finasteride 5 mg tablet 5 mg PO QAM 06/18/18 03/02/24 History pantoprazole 40 mg tablet,delayed 40 mg PO QAM 06/18/18 03/02/24 History release tamsulosin 0.4 mg capsule 0.4 mg PO DAILY 06/18/18 03/02/24 History multivitamin 1 tab PO DAILY 08/21/19 03/02/24 History rivaroxaban 20 mg tablet (Xarelto) 20 mg PO DAILY 07/10/20 03/02/24 History atorvastatin 40 mg tablet 40 mg PO DAILY 07/31/20 03/02/24 History carvedilol 3.125 mg tablet 3.125 mg PO BID 07/31/20 03/02/24 History diclofenac sodium 1 % topical gel 2 g topical QID PRN Pain 07/31/20 03/02/24 History polyethylene glycol 3350 17 17 g PO DAILY PRN constipation 07/31/20 03/02/24 History gram/dose oral powder (Miralax) insulin glargine 100 unit/mL (3 16 unit subcut DAILY 08/01/20 03/02/24 History mL) subcutaneous pen (Lantus Solostar U-100 Insulin) clobetasol 0.05 % topical ointment 1 applic topical DAILY PRN Itching 07/10/21 03/02/24 History docusate sodium 50 mg capsule 50 mg PO BID 07/10/21 03/02/24 History ergocalciferol (vitamin D2) 10 mcg 10 mcg PO DAILY 07/10/21 03/02/24 History (400 unit) tablet lorazepam 0.5 mg tablet 0.5 mg buccal TID PRN Anxiety 07/10/21 03/02/24 History ondansetron HCl 8 mg tablet 8 mg PO Q8H PRN Nausea 07/10/21 03/02/24 History sennosides 8.6 mg tablet (Mitali-arnaud) 17.2 mg PO DAILY 07/10/21 03/02/24 History sertraline 100 mg tablet (Zoloft) 100 mg PO DAILY 12/27/23 03/02/24 History clotrimazole 10 mg haroldo 10 mg PO UD 03/02/24 03/02/24 History divalproex 250 mg tablet,delayed 500 mg PO BID 03/02/24 03/02/24 History release empagliflozin 25 mg tablet 25 mg PO DAILY 03/02/24 03/02/24 History (Jardiance) gabapentin 300 mg capsule 300 mg PO TID 03/02/24 03/02/24 History levetiracetam 750 mg tablet 750 mg PO BID 03/02/24 03/02/24 History losartan 100 mg tablet 100 mg PO DAILY 03/02/24 03/02/24 History magnesium oxide 420 mg tablet 420 mg PO DAILY 03/02/24 03/02/24 History Past Med/Surg History Problem List (Updated 03/02/24 @ 19:50 by Sarah Leon PA-C) Weakness Frequent headaches (Acute) Vision changes (Acute) Recurrent brain tumor (Chronic 12/06/23) H/O craniotomy 06/24/20 for right temporal GBM 01/31/24 at [facility] 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) Medical History (Updated 03/02/24 @ 19:50 by Sarah Leon PA-C) Diabetes Pulmonary hypertension Steroid-induced hyperglycemia Insomnia BPH (benign prostatic hyperplasia) Degenerative disc disease Severe protein-calorie malnutrition Fatigue Acute metabolic encephalopathy DVT prophylaxis Acute alteration in mental status History of pulmonary embolism Seizure History of agent [place] exposure Anxiety Acute deep vein thrombosis (DVT) of left lower extremity Elevated beta-hydroxybutyrate Elevated AST (SGOT) Hyperglycemia due to type 2 diabetes mellitus Acute pulmonary embolism BPH (benign prostatic hyperplasia) Hypertension Barretts esophagus Dyslipidemia DM type 2 (diabetes mellitus, type 2) Surgical History (Updated 03/02/24 @ 19:50 by Sarah Leon PA-C) H/O prostate biopsy S/P brain surgery History of cataract surgery LEFT History of anesthesia reaction REMOTE HX - WITH ONE SURGERY (PT UNSURE WHAT SURGERY) - SLEPT FOR 2 DAYS AFTER, NO -RE-OCCURENCE History of endoscopy History of colonoscopy History of foot surgery L History of tonsillectomy and adenoidectomy H/O shoulder surgery R X 2 - MOST RECENT: DEC 2018 Family History Father , 72yo Diabetes Hypertension Sister Cancer Brain tumor 42yo Mother , 80yo Myocardial infarction Son No problems noted. Son No problems noted. 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 Feels Safe at Home: Yes Diet: regular caffeine: Yes (2 cups/day) during the past year weight has: decreased > 10 lbs Assistive Devices: Walker Review of Systems Review of Systems: All systems reviewed & are unremarkable except as noted in HPI & below Physical Exam Physical Exam: PE per Dr Card Results & Data Results & Data Vital Signs (Past 12 Hours) Vital Signs Temp Pulse Pulse Resp BP BP Pulse Ox 03/02/24 17:49 93 H 12 97 03/02/24 17:44 03/02/24 17:21 90 03/02/24 17:07 36.8 C 89 12 109/77 97 03/02/24 17:07 36.8 C 89 12 109/77 97 03/02/24 17:07 36.8 C 89 12 109/77 97 O2 Del Method O2 Flow Rate 03/02/24 17:49 Room Air 03/02/24 17:44 Room Air 03/02/24 17:21 03/02/24 17:07 Room Air 03/02/24 17:07 Room Air 03/02/24 17:07 Room Air 0 Laboratory Results Short CBC 03/02/24 Range/Units 17:21 WBC 5.08 (4.8-10.8) K/ul Hgb 13.6 L (14.0-18.0) g/dl Hct 40.0 L (42.0-52.0) % Plt Count 221 (130-400) K/uL BMP 03/02/24 17:21 Sodium 138 Potassium 4.2 Chloride 100 Carbon Dioxide 31 BUN 24 H Creatinine 0.86 Glucose 233 H Calcium 9.2 Liver Function 03/02/24 Range/Units 17:21 Total Bilirubin 0.4 (0.2-1.0) mg/dl AST 15 (13-39) U/L ALT 17 (7-52) U/L Alkaline Phosphatase 88 (34-104) U/L Albumin 3.3 L (3.4-5.0) gm/dl Urine 03/02/24 Range/Units 17:28 Urine Color Yellow Urine Appearance Clear (Clear) Urine pH 7.0 (4.5-7.5) Ur Specific [place] 1.044 H (1.000-1.030) Urine Protein Negative (Negative) Urine Glucose (UA) 3+ H (Negative) Diagnostic Findings Cervical Spine CT 03/02/24 17:24 EXAM: CT Cervical Spine Without Intravenous Contrast INDICATION: Fall. Anticoagulated. TECHNIQUE: Axial computed tomography images of the cervical spine without intravenous contrast. Sagittal and coronal reformatted images were created and reviewed. This CT exam was performed using one or more of the following dose reduction techniques: automated exposure control, adjustment of the mA and/or kV according to patient size, and/or use of iterative reconstruction technique. COMPARISON: No relevant prior studies available. FINDINGS: Limitations: None. Vertebrae: Minimal diffuse facet hypertrophic change noted. Allowing for artifact from the shoulders, no fracture or subluxation noted. Discs/spinal canal/neural foramina: No significant disc space abnormality or stenosis. Soft tissues: No significant abnormality noted. Sinuses: There is trace chronic right sphenoid sinus mucosal thickening. Lung apices: No significant abnormality noted. Other findings: There is diffuse mild to space narrowing. No stenosis. IMPRESSION: No cervical fracture. ACT 112: Negative or not required by law. Electronically signed by Rashida Maynard 03-02-2024 6:29 PM Chest X-Ray 03/02/24 17:24 EXAM: Radiograph of the Chest 1 View INDICATION: Fall. TECHNIQUE: Frontal view of the chest. COMPARISON: 06/28/2020 FINDINGS: Lungs and pleural spaces: No consolidation or pulmonary edema. No pleural effusion or pneumothorax. Heart: Shape and configuration within normal limits allowing for technique. Mediastinum: Normal contour. Bones/joints: Degenerative changes noted throughout the spine and both shoulders. No lytic or blastic lesions noted. Soft tissues: No abnormality noted. No radiopaque foreign body noted. Upper abdomen: No abnormality noted. IMPRESSION: No acute cardiopulmonary disease. ACT 112: Negative or not required by law. Electronically signed by Rashida Maynard 03-02-2024 6:[address] 03/02/24 17:24 EXAM: CT Head Without Intravenous Contrast INDICATION: Fall today. Brain surgery last month. Anticoagulated. TECHNIQUE: Axial computed tomography images of the head/brain without intravenous contrast. Sagittal and/or coronal reformats are provided. Sagittal and coronal reformatted images were created and reviewed. This CT exam was performed using one or more of the following dose reduction techniques: automated exposure control, adjustment of the mA and/or kV according to patient size, and/or use of iterative reconstruction technique. COMPARISON: 02/29/2024 FINDINGS: Limitations: None. Brain and extra-axial spaces: There is encephalomalacia of the right temporal lobe in the middle cranial fossa. There is mild adjacent dural calcification and thickening. No hemorrhage or acute infarct. Bones/joints: Right temporal craniotomy changes. Chronic small vessel periventricular white matter hypodensity noted. Soft tissues: No significant abnormality noted. Vasculature: No acute abnormality noted. Sinuses: No layering fluid in the visualized portions of the paranasal sinuses. Mastoid air cells: No mastoid effusion. Orbits: No significant abnormality noted. IMPRESSION: Chronic changes. No acute disease. ACT 112: Negative or not required by law. Electronically signed by Rashida Maynard 03-02-2024 6:16 PM Pelvis X-Ray 03/02/24 17:25 EXAM: Radiographs of the Pelvis 1 View INDICATION: Fall. TECHNIQUE: Frontal view of the pelvis. COMPARISON: No relevant prior studies available. FINDINGS: Limitations: None. Bones/joints: No fracture, erosion or dislocation. Soft tissues: No abnormality noted. No radiopaque foreign body noted. IMPRESSION: No abnormality noted. ACT 112: Negative or not required by law. Electronically signed by Rashida Maynard 03-02-2024 6:53 PM Supervising Physician Co-Signing Physician Notes Patient is a 72-year-old male with history of recurrent glioblastoma S/P resection in 2020 and January 2024 at [facility], seizures, hypertension, hyperlipidemia, BPH, GERD, PTSD, history of DVT and PE on Xarelto and other medical problems who was recently discharged from [facility] after prolonged hospitalization at [facility] presents with history of worsening generalized weakness and falls today. Patient admits to hit his left frontal region secondary to fall but denies any loss of consciousness. He has been having intermittent headaches which improves with Tylenol. He also states having left eye visual changes intermittently with loss of left peripheral vision. He denies any focal weakness. Patient's also states that he has been having trouble urinating lately. He uses a walker for ambulation currently. He states having some dizziness intermittently prior to the fall. He denies any chest pain, shortness of breath, fever, chills, nausea, vomiting, abdominal pain, diarrhea. He is planned to be started on chemotherapy in coordination with [facility] and is local oncologist Dr. Fernando Solo. Please review HPI for complete details of present ation. CT head, CT neck showed no acute process. Urinalysis within normal limits. Chest x-ray on my interpretation within normal limits. Pelvic x-ray pending. I personally reviewed blood work and imaging studies. Glucose elevated at 233. Physical Exam: Vitals signs as noted above General Appearance:Obese, no apparent distress Head: normocephalic, traumatic,+ left frontal bruise Eyes: normal inspection, pupils equal and reactive to light, EOMI movements slow,? Decreased peripheral vision on the left Neck: supple, Trachea midline Respiratory/Chest: Decreased breath sounds, CTA, No accessory muscle use Cardiovascular: S1, S2, No murmur Abdomen/GI:Soft, Non tender, Bowel sounds present Extremities/Musculoskeletal:normal inspection, no edema Neurologic/Psych:AAOX3, grossly no focal neurological deficits Skin: normal color, warm Postoperative headache, visual changes S/P glioblastoma of temporal lobe surgery Recurrent falls Ambulatory dysfunction Urinary incontinence H/O BPH CT head showed no acute process Will get MRI brain, neurochecks Neurology evaluation PT OT, fall precautions Consider discussing with [facility] neurosurgery tomorrow as able Check Keppra, valproic acid levels Will also check B12, TSH levels Orthostatics Bladder scan as needed Seizure, fall precautions Blood pressure relatively low: Will hold amlodipine, decrease losartan to 25 mg daily, continue Coreg with holding parameters Also on tamsulosin Monitor and adjust blood pressure medications as needed I personally interviewed and examined at bedside. Patient's care is coordinated with Sarah Leon PA-C. I have reviewed the advanced practitioner's documentation, and I agree with plan of care. Please refer to the documentation above for details of patient's presentation and for discussion of other issues. I spent a total [id number] coordinating, documenting, and providing care for this patient excluding time spent in the performance of separately billed services.
[2024-03-02] MEDS: ACETAMINOPHEN 325 MG TAB PO STA (19:02)
[2024-03-02] MEDS ORDERED: GLUCOSE 10 TAB/TUBE PO PRN (20:44)
[2024-03-02] MEDS ORDERED: DEXTROSE 50% 50 ML SYRINGE IV PRN (20:44)
[2024-03-02] MEDS ORDERED: GLUCOSE 40% GEL 15 GM TUBE PO PRN (20:44)
[2024-03-02] MEDS ORDERED: GLUCAGON FOR INJ 1 MG VIAL SQ PRN (20:44)
[2024-03-02] MEDS ORDERED: LORazepam 0.5 MG TAB PO PRN (20:44)
[2024-03-02] MEDS ORDERED: POLYETHYLENE (MIRALAX) 17 GM PACK PO PRN (20:44)
[2024-03-02] MEDS ORDERED: ONDANSETRON INJ 2 MG/ML 2 ML VIAL IV PRN (20:44)
[2024-03-02] MEDS: GABAPENTIN 300 MG CAP PO SCH (21:52)
[2024-03-02] MEDS: DOCUSATE SODIUM 100 MG CAP PO SCH (21:52)
[2024-03-02] MEDS: levETIRAcetam 250 MG TAB PO SCH (21:52)
[2024-03-02] MEDS: INSULIN ASPART PER UNIT CHARGE SC SCH (21:52)
[2024-03-02] MEDS: carvediloL 3.125 MG TAB PO SCH (21:52)
[2024-03-02] MEDS: LANTUS PER UNIT CHARGE SQ SCH (21:52)
[2024-03-02] MEDS: DIVALPROEX DELAY RELEASE 500 MG TAB PO SCH (21:52)
[2024-03-02] MEDS: LORazepam 2 MG/1 ML VIAL IV STA (21:55)
[2024-03-02] MEDS: GADOBUTROL 65ML VIAL IV ONE (22:29)
--- NOTE | 2024-03-03 00:55 | Magnetic Resonance Report ---
Exam(s): MRI HEAD W/WO Contrast IV Amt: 9mL Gadavist given existing IV EXAM: MR Head Without and With Intravenous Contrast CLINICAL HISTORY: Reason for exam: Visual change, headache, Post GBM surgery. TECHNIQUE: Magnetic resonance images of the head/brain without and with intravenous contrast in multiple planes. CONTRAST: Patient received 9mL Gadavist given existing IV of IV contrast COMPARISON: Prior brain MRI from December 06, 2023. FINDINGS: Brain: Status post left anterior temporal lobe resection with heterogeneous enhancement of the medial and posterior margin. No mass. No hemorrhage. No acute infarct. The flow voids at the base the brain are intact. The dural venous sinuses are patent. Ventricles: Moderate ventriculomegaly. Bones/joints: Status post right pterional craniotomy. No acute fracture. Sinuses: Unremarkable as visualized. No acute sinusitis. Mastoid air cells: Unremarkable as visualized. No mastoid effusion. Orbits: Bilateral lens replacements. IMPRESSION: No evidence of acute intracranial pathology. Status post right anterior temporal lobe tumor resection with heterogeneous enhancement of the posterior and medial margins, which may represent posttreatment effect or residual/recurrent tumor. Recommend short-term interval follow-up to evaluate for stability. Electronically signed by: Lillie Jacobson MD 03/03/24 00:54 AM
[2024-03-03 07:11] LABS: Hemoglobin 12.9 g/dl (14.0-18.0); Mean Corpuscular Hgb Conc 33.1 g/dL (32.0-36.0); Mean Corpuscular Volume 96.8 fL (80.0-100.0); Mean Platelet Volume 8.9 fL (9.4-12.4); Platelet Count 199 K/uL (130-400); RDW Coefficient of Variation 13.4 % (11.5-14.5); RDW Standard Deviation 47.3 fL (36.4-46.3); Red Blood Count 4.03 M/uL (4.70-6.10); White Blood Count 4.64 K/ul (4.8-10.8)
[2024-03-03 07:34] LABS: BUN Creatinine Ratio 25.9 (10-20); Calcium 8.4 mg/dl (8.6-10.3); Magnesium 2.1 mg/dl (1.7-2.4); Potassium 3.6 mmol/L (3.5-5.1)
[2024-03-03 07:47] LABS: Thyroid Stimulating Hormone 2.256 uIu/ml (0.300-4.500)
[2024-03-03 07:48] LABS: Estimated Average Glucose 206 mg/dl; Hemoglobin A1C 8.8 % (4.5-5.6)
[2024-03-03] MEDS: CARBOHYDRATES FOR HYPOGLYCEMIA PO PRN (08:13)
[2024-03-03] MEDS: ATORVASTATIN 40 MG TAB PO SCH (09:17)
[2024-03-03] MEDS: FINASTERIDE 5 MG TAB PO SCH (09:18)
[2024-03-03] MEDS: MAGNESIUM OXIDE 400 MG TAB PO SCH (09:19)
[2024-03-03] MEDS: LOSARTAN POTASSIUM 25 MG TAB PO SCH (09:19)
[2024-03-03] MEDS: SERTRALINE HCL 100 MG TABLET PO SCH (09:19)
[2024-03-03] MEDS: SENNA 8.6 MG TAB PO SCH (09:19)
[2024-03-03] MEDS: RIVAROXABAN 20 MG TAB PO SCH (09:19)
[2024-03-03] MEDS: TAMSULOSIN HCL 0.4 MG CAP PO SCH (09:19)
[2024-03-03] MEDS: PANTOprazole 40 MG TAB PO SCH (09:19)
--- NOTE | 2024-03-03 12:18 | Neurology Consultation ---
Date of Consultation March 03, 2024 Assessment & Plan (1) Frequent headaches: Neurology consulted due to reported frequent headaches Continue to monitor/control pain Continue to monitor mentation Valproic acid serum level subtherapeutic -consider discontinuation Recommend checking ammonia level Await serum level of Keppra Provide seizure precautions Continue to monitor frequent neurological assessments Obtain stat CT brain without contrast for any acute neurological decline Continue to monitor/control blood pressure & blood glucose Agree with continued monitoring of orthostatic vitals signs Continue to monitor telemetry closely Continue to monitor renal and hepatic function, keep euvolemic Ok from neurology perspective for VTE prophylaxis PT/OT/SLT to eval and treat Telehealth Consultation Telehealth Information Telehealth Information: I performed this visit using a real-time telehealth connection between my location and the patients location ([facility]). After connecting through interactive tele-video, patient was identified by name and date of and/or wristband check.Patient (or authorized healthcare direct sales representative) was informed that this was a telemedicine visit and it was being conducted confidentially over secure lines. My office door was closed and no one else was present in the room with me.Patient (or authorized healthcare direct sales representative) provided consent to proceed with the visit, expressed an understanding of privacy and security of the telemedicine visit, and gave permission to have a hospital direct sales representative in the room in order to assist with the visit and to conduct portions of the visit, as needed. I informed the patient (or authorized healthcare direct sales representative) that I reviewed their record and presented the opportunity for them to ask any questions regarding the visit today. The patient agreed to participate. History of Present Illness Reason for Consultation: Headache Attending Physician: Mohsen Celestin DO History of Present Illness 73yo male with hx of GBM resected in 2020 and again last month January 2024 has ongoing weakness headache and reported vision changes. He is fully anticoagulated due to hx DVT/PE with known hx of seizure prior to first resection in 2020 remains on both Keppra and valproic acid. Serum levels pending of Keppra while valproic acid level appears subtherapeutic for seizure management/prophylaxis. He has not had reported clinical seizure like activity. Unfortunately has been suffering from reported BLE weakness and falls. He has undergone MRI brain with and without contrast reveals marginal enhancement at resection site right temporal lobe. I have performed televideo consultation. He is very lethargic but will awaken and answer 1-2 questions prior to falling back to sleep. He is alert & oriented; able to answer all questions correctly when he does so and able to name objects on televideo monitor, will follow simple commands without deficit. No apparent distress or discomfort. RN at bedside during examination. Allergies Allergy/AdvReac Type Severity Reaction Status Date / Time erythromycin base AdvReac Unknown nausea/vomi Verified 12/11/21 09:20 ting Home Medications Medication Instructions Recorded Confirmed Type amlodipine 10 mg tablet 10 mg PO DAILY 06/18/18 03/02/24 History finasteride 5 mg tablet 5 mg PO QAM 06/18/18 03/02/24 History pantoprazole 40 mg tablet,delayed 40 mg PO QAM 06/18/18 03/02/24 History release tamsulosin 0.4 mg capsule 0.4 mg PO DAILY 06/18/18 03/02/24 History multivitamin 1 tab PO DAILY 08/21/19 03/02/24 History rivaroxaban 20 mg tablet (Xarelto) 20 mg PO DAILY 07/10/20 03/02/24 History atorvastatin 40 mg tablet 40 mg PO DAILY 07/31/20 03/02/24 History carvedilol 3.125 mg tablet 3.125 mg PO BID 07/31/20 03/02/24 History diclofenac sodium 1 % topical gel 2 g topical QID PRN Pain 07/31/20 03/02/24 History polyethylene glycol 3350 17 17 g PO DAILY PRN constipation 07/31/20 03/02/24 History gram/dose oral powder (Miralax) insulin glargine 100 unit/mL (3 16 unit subcut DAILY 08/01/20 03/02/24 History mL) subcutaneous pen (Lantus Solostar U-100 Insulin) clobetasol 0.05 % topical ointment 1 applic topical DAILY PRN Itching 07/10/21 03/02/24 History docusate sodium 50 mg capsule 50 mg PO BID 07/10/21 03/02/24 History ergocalciferol (vitamin D2) 10 mcg 10 mcg PO DAILY 07/10/21 03/02/24 History (400 unit) tablet lorazepam 0.5 mg tablet 0.5 mg buccal TID PRN Anxiety 07/10/21 03/02/24 History ondansetron HCl 8 mg tablet 8 mg PO Q8H PRN Nausea 07/10/21 03/02/24 History sennosides 8.6 mg tablet (Mitali-arnaud) 17.2 mg PO DAILY 07/10/21 03/02/24 History sertraline 100 mg tablet (Zoloft) 100 mg PO DAILY 12/27/23 03/02/24 History clotrimazole 10 mg haroldo 10 mg PO UD 03/02/24 03/02/24 History divalproex 250 mg tablet,delayed 500 mg PO BID 03/02/24 03/02/24 History release empagliflozin 25 mg tablet 25 mg PO DAILY 03/02/24 03/02/24 History (Jardiance) gabapentin 300 mg capsule 300 mg PO TID 03/02/24 03/02/24 History levetiracetam 750 mg tablet 750 mg PO BID 03/02/24 03/02/24 History losartan 100 mg tablet 100 mg PO DAILY 03/02/24 03/02/24 History magnesium oxide 420 mg tablet 420 mg PO DAILY 03/02/24 03/02/24 History Patient History Medical History (Updated 03/02/24 @ 22:23 by Jaquan Ge DO) Diabetes Pulmonary hypertension Steroid-induced hyperglycemia Insomnia BPH (benign prostatic hyperplasia) Degenerative disc disease Severe protein-calorie malnutrition Fatigue Acute metabolic encephalopathy DVT prophylaxis Acute alteration in mental status History of pulmonary embolism Seizure History of agent Hand exposure Anxiety Acute deep vein thrombosis (DVT) of left lower extremity Elevated beta-hydroxybutyrate Elevated AST (SGOT) Hyperglycemia due to type 2 diabetes mellitus Acute pulmonary embolism BPH (benign prostatic hyperplasia) Hypertension Barretts esophagus Dyslipidemia DM type 2 (diabetes mellitus, type 2) Surgical History (Updated 03/02/24 @ 19:50 by Sarah Leon PA-C) H/O prostate biopsy S/P brain surgery History of cataract surgery LEFT History of anesthesia reaction REMOTE HX - WITH ONE SURGERY (PT UNSURE WHAT SURGERY) - SLEPT FOR 2 DAYS AFTER, NO -RE-OCCURENCE History of endoscopy History of colonoscopy History of foot surgery L History of tonsillectomy and adenoidectomy H/O shoulder surgery R X 2 - MOST RECENT: DEC 2018 Family History Father , 72yo Diabetes Hypertension Sister Cancer Brain tumor 42yo Mother , 80yo Myocardial infarction Son No problems noted. Son No problems noted. 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 [employer] Feels Safe at Home: Yes Safety Concerns: Feels Safe At This Time Diet: regular caffeine: Yes (2 cups/day) during the past year weight has: decreased > 10 lbs Assistive Devices: Walker Physical Exam Neurological Examination: Mental Status: Sleepy/somnolent but able to be awakened Will answer 1-2 questions correctly then fall back to sleep RN at bedside reports has not complained of headache CN testing: I: Unable to accurately assess II:Unable to accurately assess III/IV/: No evidence of gaze preference, hippus, nystagmus or roving eye movements V: Facial sensation Unable to accurately assess VII: Facial movements appear without evidence of asymmetry VIII: Hearing appears grossly intact to loud voice bilaterally IX/X: Palate Unable to accurately assess XI: Shoulder shrug Unable to accurately assess XII: Tongue protrudes midline Motor exam: Moves extremities spontaneously and antigravity Sensory: Sensation is difficult to reliably assess Coordination: Deferred Reflexes: Deferred Gait: Deferred Results & Data Vital Signs (Past 12 Hours) Vital Signs Temp Pulse Pulse Resp BP Pulse Ox O2 Del Method 03/03/24 11:16 36.7 C 79 16 101/66 95 Room Air 03/03/24 07:06 36.6 C 72 18 113/73 93 Room Air 03/03/24 05:12 69 03/03/24 03:31 36.6 C 66 16 138/88 94 Room Air Laboratory Results Abnormal lab results 03/02/24 03/02/24 03/02/24 Range/Units 17:21 17:26 17:28 WBC (4.8-10.8) K/ul RBC 4.19 L (4.70-6.10) M/uL Hgb 13.6 L (14.0-18.0) g/dl POC Hgb 13.3 L (14.0-18.0) g/dl Hct 40.0 L (42.0-52.0) % POC Hct 39 L (42-52) % RDW Std Deviation 46.6 H (36.4-46.3) fL MPV 9.0 L (9.4-12.4) fL Lymph # (Auto) 1.04 L (1.20-3.40) K/uL POC Chloride 99 L (101-112) mmol/L POC Anion Gap 15.0 L (16-25) mmol/L POC BUN 23 H (7-18) mg/dl BUN 24 H (6-23) mg/dl BUN/Creatinine Ratio 27.9 H (10-20) Glucose 233 H (70-99(Fasting)) mg/dl POC Glucose (70-99) mg/dl POC Glucose (other) 231 H (70-99) mg/dl Hemoglobin A1c (4.5-5.6) % Calcium (8.6-10.3) mg/dl Albumin 3.3 L (3.4-5.0) gm/dl Vitamin B12 (180-914) pg/ml Ur Specific [place] 1.044 H (1.000-1.030) Urine Glucose (UA) 3+ H (Negative) Valproic Acid (50-100) mcg/ml 03/02/24 03/03/24 03/03/24 Range/Units 20:51 06:30 08:07 WBC 4.64 L (4.8-10.8) K/ul RBC 4.03 L (4.70-6.10) M/uL Hgb 12.9 L (14.0-18.0) g/dl POC Hgb (14.0-18.0) g/dl Hct 39.0 L (42.0-52.0) % POC Hct (42-52) % RDW Std Deviation 47.3 H (36.4-46.3) fL MPV 8.9 L (9.4-12.4) fL Lymph # (Auto) (1.20-3.40) K/uL POC Chloride (101-112) mmol/L POC Anion Gap (16-25) mmol/L POC BUN (7-18) mg/dl BUN (6-23) mg/dl BUN/Creatinine Ratio 25.9 H (10-20) Glucose (70-99(Fasting)) mg/dl POC Glucose 162 H 62 L* (70-99) mg/dl POC Glucose (other) (70-99) mg/dl Hemoglobin A1c 8.8 H (4.5-5.6) % Calcium 8.4 L (8.6-10.3) mg/dl Albumin (3.4-5.0) gm/dl Vitamin B12 929 H (180-914) pg/ml Ur Specific [place] (1.000-1.030) Urine Glucose (UA) (Negative) Valproic Acid 37 L (50-100) mcg/ml 03/03/24 Range/Units 11:54 WBC (4.8-10.8) K/ul RBC (4.70-6.10) M/uL Hgb (14.0-18.0) g/dl POC Hgb (14.0-18.0) g/dl Hct (42.0-52.0) % POC Hct (42-52) % RDW Std Deviation (36.4-46.3) fL MPV (9.4-12.4) fL Lymph # (Auto) (1.20-3.40) K/uL POC Chloride (101-112) mmol/L POC Anion Gap (16-25) mmol/L POC BUN (7-18) mg/dl BUN (6-23) mg/dl BUN/Creatinine Ratio (10-20) Glucose (70-99(Fasting)) mg/dl POC Glucose 164 H (70-99) mg/dl POC Glucose (other) (70-99) mg/dl Hemoglobin A1c (4.5-5.6) % Calcium (8.6-10.3) mg/dl Albumin (3.4-5.0) gm/dl Vitamin B12 (180-914) pg/ml Ur Specific [place] (1.000-1.030) Urine Glucose (UA) (Negative) Valproic Acid (50-100) mcg/ml Diagnostic Findings Cervical Spine CT 03/02/24 17:24 EXAM: CT Cervical Spine Without Intravenous Contrast INDICATION: Fall. Anticoagulated. TECHNIQUE: Axial computed tomography images of the cervical spine without intravenous contrast. Sagittal and coronal reformatted images were created and reviewed. This CT exam was performed using one or more of the following dose reduction techniques: automated exposure control, adjustment of the mA and/or kV according to patient size, and/or use of iterative reconstruction technique. COMPARISON: No relevant prior studies available. FINDINGS: Limitations: None. Vertebrae: Minimal diffuse facet hypertrophic change noted. Allowing for artifact from the shoulders, no fracture or subluxation noted. Discs/spinal canal/neural foramina: No significant disc space abnormality or stenosis. Soft tissues: No significant abnormality noted. Sinuses: There is trace chronic right sphenoid sinus mucosal thickening. Lung apices: No significant abnormality noted. Other findings: There is diffuse mild to space narrowing. No stenosis. IMPRESSION: No cervical fracture. ACT 112: Negative or not required by law. Electronically signed by Rashida Maynard 03-02-2024 6:29 PM Chest X-Ray 03/02/24 17:24 EXAM: Radiograph of the Chest 1 View INDICATION: Fall. TECHNIQUE: Frontal view of the chest. COMPARISON: 06/28/2020 FINDINGS: Lungs and pleural spaces: No consolidation or pulmonary edema. No pleural effusion or pneumothorax. Heart: Shape and configuration within normal limits allowing for technique. Mediastinum: Normal contour. Bones/joints: Degenerative changes noted throughout the spine and both shoulders. No lytic or blastic lesions noted. Soft tissues: No abnormality noted. No radiopaque foreign body noted. Upper abdomen: No abnormality noted. IMPRESSION: No acute cardiopulmonary disease. ACT 112: Negative or not required by law. Electronically signed by Rashida Maynard 03-02-2024 6:[address] 03/02/24 17:24 EXAM: CT Head Without Intravenous Contrast INDICATION: Fall today. Brain surgery last month. Anticoagulated. TECHNIQUE: Axial computed tomography images of the head/brain without intravenous contrast. Sagittal and/or coronal reformats are provided. Sagittal and coronal reformatted images were created and reviewed. This CT exam was performed using one or more of the following dose reduction techniques: automated exposure control, adjustment of the mA and/or kV according to patient size, and/or use of iterative reconstruction technique. COMPARISON: 02/29/2024 FINDINGS: Limitations: None. Brain and extra-axial spaces: There is encephalomalacia of the right temporal lobe in the middle cranial fossa. There is mild adjacent dural calcification and thickening. No hemorrhage or acute infarct. Bones/joints: Right temporal craniotomy changes. Chronic small vessel periventricular white matter hypodensity noted. Soft tissues: No significant abnormality noted. Vasculature: No acute abnormality noted. Sinuses: No layering fluid in the visualized portions of the paranasal sinuses. Mastoid air cells: No mastoid effusion. Orbits: No significant abnormality noted. IMPRESSION: Chronic changes. No acute disease. ACT 112: Negative or not required by law. Electronically signed by Rashida Maynard 03-02-2024 6:16 PM Pelvis X-Ray 03/02/24 17:25 EXAM: Radiographs of the Pelvis 1 View INDICATION: Fall. TECHNIQUE: Frontal view of the pelvis. COMPARISON: No relevant prior studies available. FINDINGS: Limitations: None. Bones/joints: No fracture, erosion or dislocation. Soft tissues: No abnormality noted. No radiopaque foreign body noted. IMPRESSION: No abnormality noted. ACT 112: Negative or not required by law. Electronically signed by Rashida Maynard 03-02-2024 6:53 PM Brain MRI 03/02/24 20:44 Exam(s): MRI HEAD W/WO Contrast IV Amt: 9mL Gadavist given existing IV EXAM: MR Head Without and With Intravenous Contrast CLINICAL HISTORY: Reason for exam: Visual change, headache, Post GBM surgery. TECHNIQUE: Magnetic resonance images of the head/brain without and with intravenous contrast in multiple planes. CONTRAST: Patient received 9mL Gadavist given existing IV of IV contrast COMPARISON: Prior brain MRI from December 06, 2023. FINDINGS: Brain: Status post left anterior temporal lobe resection with heterogeneous enhancement of the medial and posterior margin. No mass. No hemorrhage. No acute infarct. The flow voids at the base the brain are intact. The dural venous sinuses are patent. Ventricles: Moderate ventriculomegaly. Bones/joints: Status post right pterional craniotomy. No acute fracture. Sinuses: Unremarkable as visualized. No acute sinusitis. Mastoid air cells: Unremarkable as visualized. No mastoid effusion. Orbits: Bilateral lens replacements. IMPRESSION: No evidence of acute intracranial pathology. Status post right anterior temporal lobe tumor resection with heterogeneous enhancement of the posterior and medial margins, which may represent posttreatment effect or residual/recurrent tumor. Recommend short-term interval follow-up to evaluate for stability. Electronically signed by: Lillie Jacobson MD 03/03/24 00:54 AM Medications Administered Home Medications Medication Instructions Recorded Confirmed Last Taken amlodipine 10 mg tablet 10 mg PO DAILY 06/18/18 03/02/24 06/08/20 finasteride 5 mg tablet 5 mg PO QAM 06/18/18 03/02/24 06/08/20 pantoprazole 40 mg tablet,delayed 40 mg PO QAM 06/18/18 03/02/24 07/10/20 release tamsulosin 0.4 mg capsule 0.4 mg PO DAILY 06/18/18 03/02/24 06/08/20 multivitamin 1 tab PO DAILY 08/21/19 03/02/24 06/08/20 rivaroxaban 20 mg tablet (Xarelto) 20 mg PO DAILY 07/10/20 03/02/24 Unknown atorvastatin 40 mg tablet 40 mg PO DAILY 07/31/20 03/02/24 Unknown carvedilol 3.125 mg tablet 3.125 mg PO BID 07/31/20 03/02/24 Unknown diclofenac sodium 1 % topical gel 2 g topical QID PRN Pain 07/31/20 03/02/24 Unknown polyethylene glycol 3350 17 17 g PO DAILY PRN constipation 07/31/20 03/02/24 Unknown gram/dose oral powder (Miralax) insulin glargine 100 unit/mL (3 16 unit subcut DAILY 08/01/20 03/02/24 Unknown mL) subcutaneous pen (Lantus Solostar U-100 Insulin) clobetasol 0.05 % topical ointment 1 applic topical DAILY PRN Itching 07/10/21 03/02/24 Unknown docusate sodium 50 mg capsule 50 mg PO BID 07/10/21 03/02/24 Unknown ergocalciferol (vitamin D2) 10 mcg 10 mcg PO DAILY 07/10/21 03/02/24 Unknown (400 unit) tablet lorazepam 0.5 mg tablet 0.5 mg buccal TID PRN Anxiety 07/10/21 03/02/24 Unknown ondansetron HCl 8 mg tablet 8 mg PO Q8H PRN Nausea 07/10/21 03/02/24 Unknown sennosides 8.6 mg tablet (Mitali-arnaud) 17.2 mg PO DAILY 07/10/21 03/02/24 Unknown sertraline 100 mg tablet (Zoloft) 100 mg PO DAILY 12/27/23 03/02/24 Unknown clotrimazole 10 mg haroldo 10 mg PO UD 03/02/24 03/02/24 Unknown divalproex 250 mg tablet,delayed 500 mg PO BID 03/02/24 03/02/24 Unknown release empagliflozin 25 mg tablet 25 mg PO DAILY 03/02/24 03/02/24 Unknown (Jardiance) gabapentin 300 mg capsule 300 mg PO TID 03/02/24 03/02/24 Unknown levetiracetam 750 mg tablet 750 mg PO BID 03/02/24 03/02/24 Unknown losartan 100 mg tablet 100 mg PO DAILY 03/02/24 03/02/24 Unknown magnesium oxide 420 mg tablet 420 mg PO DAILY 03/02/24 03/02/24 Unknown Active Medications Generic Name Dose Route Start Last Admin Trade Name Freq PRN Reason Stop Dose Admin Atorvastatin Calcium 40 mg 03/03/24 09:00 03/03/24 09:17 Atorvastatin 40 Mg Tab PO 04/02/24 08:59 40 mg DAILY ALLEY Administration Carvedilol 3.125 mg 03/02/24 21:00 03/03/24 09:18 Carvedilol 3.125 Mg Tab PO 04/01/24 20:59 3.125 mg BID ALLEY Administration Divalproex Sodium 500 mg 03/02/24 21:00 03/03/24 09:18 Divalproex Delay Release 500 Mg Tab PO 04/01/24 20:59 500 mg BID ALLEY Administration Docusate Sodium 100 mg 03/02/24 21:00 03/03/24 09:18 Docusate Sodium 100 Mg Cap PO 04/01/24 20:59 100 mg BID ALLEY Administration Finasteride 5 mg 03/03/24 09:00 03/03/24 09:18 Finasteride 5 Mg Tab PO 04/02/24 08:59 5 mg QAM ALLEY Administration Gabapentin 300 mg 03/02/24 21:00 03/03/24 09:18 Gabapentin 300 Mg Cap PO 04/01/24 20:59 300 mg TID ALLEY Administration Insulin Aspart 0 units 03/02/24 21:00 03/03/24 09:56 Insulin Aspart Per Unit Charge SC 04/01/24 20:59 Not Given ACHS ALLEY Levetiracetam 750 mg 03/02/24 21:00 03/03/24 09:18 Levetiracetam 250 Mg Tab PO 04/01/24 20:59 750 mg BID ALLEY Administration Losartan Potassium 25 mg 03/03/24 09:00 03/03/24 09:19 Losartan Potassium 25 Mg Tab PO 04/02/24 08:59 25 mg DAILY ALLEY Administration Magnesium Oxide 400 mg 03/03/24 09:00 03/03/24 09:19 Magnesium Oxide 400 Mg Tab PO 04/02/24 08:59 400 mg DAILY ALLEY Administration Miscellaneous 15 - 30 gm 03/02/24 20:44 03/03/24 08:13 Carbohydrates For Hypoglycemia PO 04/01/24 20:43 15 gm UD PRN Administration Hypoglycemia Protocol Pantoprazole Sodium 40 mg 03/03/24 09:00 03/03/24 09:19 Pantoprazole 40 Mg Tab PO 04/02/24 08:59 40 mg QAM ALLEY Administration Rivaroxaban 20 mg 03/03/24 09:00 03/03/24 09:19 Rivaroxaban 20 Mg Tab PO 04/02/24 08:59 20 mg DAILY ALLEY Administration Sennosides 17.2 mg 03/03/24 09:00 03/03/24 09:19 Senna 8.6 Mg Tab PO 04/02/24 08:59 17.2 mg DAILY ALLEY Administration Sertraline HCl 100 mg 03/03/24 09:00 03/03/24 09:19 Sertraline Hcl 100 Mg Tablet PO 04/02/24 08:59 100 mg DAILY ALLEY Administration Tamsulosin HCl 0.4 mg 03/03/24 09:00 03/03/24 09:19 Tamsulosin Hcl 0.4 Mg Cap PO 04/02/24 08:59 0.4 mg DAILY ALLEY Administration
--- NOTE | 2024-03-03 13:41 | Hospitalist Progress Note ---
Date of Service March 03, 2024 Assessment & Plan (1) Orthostatic hypotension: (2) Diabetes mellitus with hypoglycemia, with long-term current use of insulin: (3) Glioblastoma of temporal lobe: (4) H/O craniotomy: Plan: X 2, most recent January 2024 (5) Vision changes: (6) Frequent headaches: Plan Patient presents with progressive weakness since being discharged from rehab center. He is status post recent surgical intervention on glioblastoma in January 2024. Patient has had significant orthostatic vital signs. This may be the etiology of his weakness and symptoms. Patient also has been having some hypoglycemic events while here in the hospital and also may be occurring at home. Give a fluid bolus Stop losartan Parameters on Coreg May need midodrine trial Decrease long-acting insulin frequency Continue to cover with short acting insulin Continue therapies Communication with neurology. Recommends discontinuing the Depakote. Levels are low probably not adding any benefits to his medical regimen at this time. He is not having any type of seizure activity. May also be giving him some of his weakness symptoms. Phone conversation with patient's . She was able to provide additional history that can explain some of the patient's symptoms. She reports that he was never on Lantus twice a day and that the doses were significantly increased while he was at [facility]. She does not feel he needs that much insulin. I suspect she may be correct. Patient was on dexamethasone for swelling postoperatively. I suspect he was requiring increased insulin at that time when he was on the steroids but now that he is off the steroids does not need near as much insulin. At this time we will completely stop the Lantus at the 's request and continue short acting insulin as needed. She also reports that he was taking some Inderal the rehab center this was for tremor. She states he was not taking it at home, however this could also be contributing to some of his orthostasis. Additionally she states that she gives the finasteride and tamsulosin at bedtime additionally she states that she gives the finasteride and tamsulosin at bedtime. He received a here in the morning that could be explaining some of his orthostasis. Will switch those medicines to the bedtime. Will stop the Depakote as discussed with neurology the was agreeable to this plan will not continue to monitor his orthostatic vitals. also states that the only time he takes lorazepam is for the MRI so we will discontinue the lorazepam since he seems to be slight drowsy at this point. 60 minutes spent in coordination care, review of records, communication with family, evaluation the bedside, communication with medical specialty. Admission and Anticipated Discharge Date Admission Date: March 02, 2024 Subjective Patient states that his vision changes have been since his surgery. It did not just start since his discharge from rehab. Also having essentially ongoing daily headaches since his surgery. Denies any chest pain or shortness of breath. Patient with some episodes of borderline hypoglycemia today. Physical Exam Physical Exam: Constitutional: Alert, nontoxic HEENT: Mucous membranes moist. Lungs: Decreased no wheezes or rales CV: S1-S2, regular Abdomen: Soft, nontender, nondistended Extremities: No significant edema Neuro: No focal deficits, generalized weakness Psych: Cooperative, normal mood Results & Data Results & Data Vital Signs (Past 12 Hours) Vital Signs Temp Pulse Pulse Resp BP Pulse Ox O2 Del Method 03/03/24 11:16 36.7 C 79 16 101/66 95 Room Air 03/03/24 09:15 Room Air 03/03/24 07:06 36.6 C 72 18 113/73 93 Room Air 03/03/24 05:12 69 03/03/24 03:31 36.6 C 66 16 138/88 94 Room Air Diagnostic Findings Reviewed imaging, laboratory and diagnostic studies. Pertinent findings as below. Orthostatic vital signs significantly positive Hemoglobin 12.9 Creatinine 0.81 Glucoses reviewed Hemoglobin A1c 8.8% TSH 2.2 B12 929 Valproic acid 37 MRI brain shows expected postoperative changes, no acute findings
[2024-03-03] MEDS: SODIUM CHLORIDE 0.9% 1,000 ML IV ONE (14:11)
--- NOTE | 2024-03-04 06:39 | Electrocardiogram Report ---
Test Reason : Blood Pressure : */* mmHG Vent. Rate : 92 BPM Atrial Rate : 92 BPM P-R Int : 166 ms QRS Dur : 78 ms QT Int : 360 ms P-R-T Axes : 67 73 68 degrees QTcB Int : 445 ms Normal sinus rhythm Possible Inferior infarct When compared with ECG of 11-Jul-2020 04:59, No significant change was found Confirmed by Marco Valencia ([id number]) on 03/04/2024 6:39:23 AM Referred By: Confirmed By: Marco Valencia
--- OUTSIDE RECORDS SUMMARY | 2024-03-04 06:59 | External Medical Summary ---
Author Name Unknown Address Unknown Organization : Laboratory Report Ordering Provider Test Date Status NEREYDA GEORGES 03/02/2024 15:56:00 Final Observation Date Value Abnormality Reference (Units ) Status Color of Urine by Auto 03/02/2024 15:56:00 Other Abnormal Light Yellow, Yellow Final Clarity, Urine 03/02/2024 15:56:00 Cloudy Abnormal Clear Final Glucose [Mass/volume] in Urine by Automated test strip 03/02/2024 15:56:00 >=1000 Abnormal Negative (mg/dL) Final Bilirubin.total [Presence] in Urine by Automated test strip 03/02/2024 15:56:00 Negative Negative Final Ketones [Mass/volume] in Urine by Automated test strip 03/02/2024 15:56:00 Negative Negative (mg/dL) Final Specific gravity, Urine 03/02/2024 15:56:00 1.010 1.003-1.030 Final Hemoglobin [Presence] in Urine by Automated test strip 03/02/2024 15:56:00 Trace-intact Abnormal Negative Final pH, Urine 03/02/2024 15:56:00 6.0 5.0, 5.5, 6.0, 6.5, 7.0, 7.5 (units) Final Protein [Mass/volume] in Urine by Automated test strip 03/02/2024 15:56:00 Negative Negative (mg/dL) Final Urobilinogen, Urine 03/02/2024 15:56:00 0.2 0.2, 1.0 (mg/dL) Final Nitrite [Presence] in Urine by Automated test strip 03/02/2024 15:56:00 Negative Negative Final Leukocyte esterase [Presence] in Urine by Automated test strip 03/02/2024 15:56:00 Negative Negative Final Performing Location
--- OUTSIDE RECORDS SUMMARY | 2024-03-04 06:59 | External Medical Summary | Summary of Care ---
Author Name Unknown Organization [facility] Address [address] [place] [address] Phone [phone] Care Team Providers Care Information Director Name Role Phone Apolinar Wayne DO Primary Care Provider [phone] Reason for Visit * Reason Onset Date Comments Patient Assistance Program 02/29/2024 12 Giulia Roque Encounter Details Date Type Department Care Team (Late st Contact Info) Description 02/29/2024 Telephone Pharmacy Hematology Oncology [facility] [place] [address] [place] [address] Tiffanie Disla, [facility] [address] [place] [address] Patient Assistance Program (12 Krys Mike.. Allergies Active Allergy Reactions Criticality Noted Date Comments Erythromycin 07/02/1998 GI upset Guaifenesin & Derivatives 03/18/1997 nucofed documented as of this encounter (statuses as of 03/01/2024) Medications BD Pen Needle Altagracia U/F 32G X 4 MM (Insulin Pen Needle) Use to inject insulin 4 times a day 200 Each 3 07/05/19 21 Active SURGICAL COMPRESSION STOCKING 20 to 30mm knee high. 2 Each 6 11/05/19 21 Active B Complex (Folic Acid) Oral TabletIndications :general health Take 1 Tablet by mouth in the morning. 04/15/19 22 Active Rivaroxaban 20 MG Oral Tablet (Xarelto)Indicati ons:blood clot prevention Take 1 Tablet by mouth every afternoon. (get from the [place]) 04/15/19 22 Active Vitamin D3 25 MCG (1000 UT) Oral CapsuleIndication s:general health Take 1 Capsule by mouth. Active Centrum Adults Oral TabletIndications :general health Take 1 Tablet by mouth. Active FreeStyle Aarti 2 SensorIndications :Type 2 diabetes mellitus with hemoglobin A1c goal of less than 7.0% (HCC) Use as directed every 14 days . 1 Each 11/29/19 Active Magnesium Oxide 420 MG Oral TabletIndications :general health Take 1 Tablet by mouth in the morning. 12/05/19 Active Gabapentin 300 MG Oral Capsule (Neurontin) TAKE BY MOUTH ONE CAPSULE IN THE MORNING AND ONE CAPSULE AT NOON AND ONE CAPSULE BEFORE BEDTIME 300 Capsule 3 02/11/2024 8:14 AM EST 03/24/19 24 025 Active Sertraline HCl 100 MG Oral Tablet (Zoloft)Indicatio ns:Current moderate episode of major depressive disorder without prior episode (HCC),PTSD (post-traumatic stress disorder) Take 1 Tablet by mouth in the morning. 100 Tablet 3 02/04/2024 2:51 PM EST 04/15/19 24 Active Diclofenac Sodium 1 % External Gel (Voltaren) APPLY TOPICALLY TO AFFECTED AREA 3 TIMES A DAY -- TO HANDS, BILATERALLY FOR ARTHRITIC PAIN 200 g 5 10/26/2023 11:48 AM EDT 04/29/19 24 025 Active Empagliflozin 25 MG Oral Tablet (Jardiance)Indica tions:Type 2 diabetes mellitus with hemoglobin A1c goal of less than 7.0% (HCC) Take 1 Tablet by mouth in the morning. (From the [place]). 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) TAKE ONE TABLET BY MOUTH TWICE A DAY WITH MORNING AND EVENING MEALS 200 Tablet 3 12/01/2023 11:00 AM EDT 05/17/19 24 025 Active Pantoprazole Sodium 40 MG Oral Tablet Delayed Release (Protonix)Indicat ions:Heartburn TAKE ONE TABLET BY MOUTH EVERY DAY 100 Tablet 3 12/12/2023 11:42 AM EDT 05/29/19 24 025 Active Finasteride 5 MG Oral Tablet (Proscar) TAKE ONE TABLET BY MOUTH EVERY DAY IN THE MORNING 100 Tablet 1 12/19/2023 1:19 PM EDT 09/12/19 24 025 Active Divalproex Sodium 250 MG Oral Tablet Delayed Release (Depakote DR) TAKE TWO TABLETS BY MOUTH EVERY MORNING AND THREE TABLETS IN THE EVENING 450 Tablet 1 09/16/2023 5:19 PM EDT 09/14/19 24 025 Active levETIRAcetam 500 MG Oral Tablet (Keppra)Indicatio ns:Glioblastoma (HCC) Take 1 Tablet by mouth in the morning and 1 Tablet before bedtime. 200 Tablet 3 02/06/2024 1:01 PM EST 11/10/19 24 Active Additional Information Patient not taking.Reported on 02/21/2024 Tamsulosin HCl 0.4 MG Oral Capsule (Flomax) TAKE ONE CAPSULE BY MOUTH EVERY DAY 100 Capsule 3 12/22/2023 6:21 PM EDT 12/21/19 24 Active Valtoco 10 MG Dose 10 MG/0.1ML Nasal Liquid (diazePAM)Indicat ions:Localization -related epilepsy, intractable (HCC) Administer 10 mg into nostril as needed (seizures lasting longer than 3 minutes). 1 Each 1 12/30/2023 2:07 PM EDT 12/26/19 24 Active LORazepam 0.5 MG Oral Tablet (Ativan)Indicatio ns:Anxiety Take 1 Tablet by mouth 3 times a day as needed for Anxiety. 60 Tablet 01/06/2024 1:06 PM EDT 12/30/19 24 Active Losartan Potassium 100 MG Oral Tablet (Cozaar) TAKE ONE TABLET BY MOUTH EVERY MORNING 100 Tablet 3 01/04/2024 2:12 PM EDT 01/02/20 24 Active Docusate Sodium 50 MG Oral Capsule (Colace)Indicatio ns:Glioblastoma (HCC) Take 1 Capsule by mouth in the morning and 1 Capsule before bedtime. 60 Capsule 3 01/06/20 24 Active Ondansetron HCl 8 MG Oral Tablet (Zofran)Indicatio ns:Glioblastoma (HCC) Take 1 tablet by mouth 30 minutes prior to lomustine and every 8 hours as needed for nausea. Do not exceed 3 tablets per 24 hours. 60 Tablet 1 01/10/2024 2:49 PM EDT 01/06/20 24 Active Atorvastatin Calcium 80 MG Oral Tablet (Lipitor)Indicati ons:Dyslipidemia, goal LDL below 100 Take 1 Tablet by mouth daily. 100 Tablet 3 01/17/2024 9:59 AM EDT 01/16/20 24 Active amLODIPine Besylate 10 MG Oral Tablet (Norvasc)Indicati ons:HTN, goal below 140/90 TAKE ONE TABLET BY MOUTH EVERY DAY 90 Tablet 3 01/25/2024 12:59 PM EST 01/23/20 24 025 Active dexAMETHasone 1 MG Oral Tablet take 1 tablet by mouth every 12 hours 60 Tablet 02/20/2024 4:13 PM EST 02/19/20 24 Active levETIRAcetam 750 MG Oral Tablet take 1 tablet by mouth every 12 hours 60 Tablet 02/20/2024 4:13 PM EST 02/19/20 24 Active Melatonin 3 MG Oral Tablet (FT Melatonin) take 2 tablet by mouth at bedtime 60 Tablet 02/19/20 24 Active Additional Information Patient not taking.Reported on 02/21/2024 OLANZapine 10 MG Oral Tablet (zyPREXA) take 1 tablet by mouth at bedtime as needed for insomnia 15 Tablet 02/20/2024 4:13 PM EST 02/19/20 24 Active Propranolol HCl 10 MG Oral Tablet (Inderal) tkae 1/2 tablet by mouth 3 times daily 45 Tablet 02/20/2024 4:13 PM EST 02/19/20 24 Active Carboxymethylcell ulose Sodium 0.5 % Ophthalmic Solution (Refresh Tears) instill 1 drop into both eyes 4 times daily as needed for dry eyes 15 mL 02/19/20 24 Active Sennosides 8.6 MG Oral Tablet (SM Senna Laxative) take 2 tablets by mouth at bedtime 60 Tablet 02/19/20 24 Active Insulin Glargine 100 UNIT/ML Subcutaneous Solution (Lantus) inject 12 units Subcutaneous every 12 hours 10 mL 02/20/2024 4:13 PM EST 02/20/20 24 Active Additional Information Patient taking differently:SubcutaneousBID (.AM/PM), 14 units twice daily, Reported on 02/21/2024 Co Q 10 100 MG Oral Capsule Take by mouth. Ac tive Multiple Vitamins Oral Tablet Take by mouth. Act jessica Clotrimazole 10 MG Mouth/Throat Danette (Mycelex Danette)Indication s:Thrush dissolve 1 Lozenge by mouth 5 times a day for 14 days. Allow tablet to slowly dissolve in your mouth 70 Danette 02/21/2024 5:57 PM EST 02/21/20 024 Active documented as of this encounter (statuses as of 03/01/2024) Active Problems Problem Noted Date Diagnosed Date PTSD (post-traumatic stress disorder) 06/11/2022 Current moderate episode of major depressive disorder without prior episode 04/15/2021 Gastro-esophageal reflux disease without esophag itis 04/15/2021 Localization-related epilepsy 11/13/2020 Encounter for antineoplastic chemotherapy 2020 Claustrophobia 08/21/2020 Glioblastoma 06/29/2020 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 Pulmonary hypertension 10/10/2018 Diabetes 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 06/27/2018 penitentiary (current) use of insulin 10/27/2017 History of pulmonary embolism 07/25/2017 History of deep venous throm bosis (DVT) of distal vein of left lower extremity 07/25/2017 History of urinary retention 07/21/2017 BPH with obstruction/lower urinary tract symptom s 01/18/2017 Lumbar degenerative disc disease 08/10/2016 HTN, goal below 140/90 05/26/2015 Overview: Per HTN Protocol #27. Dyslipidemia, goal LDL below 100 03/04/2009 Overview (03/04/2009): Per Lipid Taxonomy. Type 2 diabetes mellitus wit h hemoglobin A1c goal of less than 7.0% 01/16/2009 Overview (07/15/2015): Per Diabetes Taxonomy. 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 HTN, GOAL BELOW 130/80 04/16/200911/10 Overview (04/16/2009): Per HTN Taxonomy. Benign neoplasm of colon 08/26/2006 Overview (09/08/2006): hyperplastic polyp-repeat colonoscopy in 10 years Type 2 diabetes mellitus wit h hemoglobin A1c goal of less than 7.0% 07/14/2004 01/16/2009 Overview (07/15/2015): Per Diabetes Taxonomy. ICD-10 update of inactive term HTN, goal below 140/90 07/13/200404/16 Overview (04/16/2009): Per HTN Taxonomy. FAM HX-ISCHEM HEART DIS 08/01/199809/2017 PURE HYPERCHOLESTEROLEM 08/01/199802/18 Overview (03/04/2009): Per Lipid Taxonomy. documented as of this encounter (statuses as of 03/01/2024) Immunizations Name Administration Dates Next Due COVID-19 mRNA, LNP-s, No Pre serve, 2-Dose Series ([employer]) 03/10/2021,06/07/2020,05/17/2020 COVID-19, LNP-s, No Preserve , Chandler-sucrose, Ages 12+ (Pfizer) 11/17/2021 COVID-19, MRNA-LNP, PF, 30 M CG/0.3 mL, 12 YRS AND ABOVE, IM ([facility]) 01/17/2024,03/08/2023 Covid-19, Mrna, Lnp-s, Pf, B ivalent, 30 Mcg, IM, 12 yrs and above (Pfizer) 04/13/2022 H1N1 2009 Influenza, IM 12/10/2019,04/01/2009 Pneumococcal Conjugate Vacc, 13 Valent (Prevnar) 10/23/2015 Pneumococcal Conjugate Vacci ne, 7 Valent 09/26/2013 Pneumococcal Polysaccharide PPV23 (Pneumovax) 06/20/2018,09/13/2017,09/26/2013,08/25 Season Influenza, Quad, PF, Adjuvanted, 65+ Yrs, IM (FLUAD) 12/07/2022 Seasonal Influenza Vac., MDV , IM, 0.5 mL (Fluzone) 12/11/2015,01/04/2015,03/09/2013,12/29,03/09/2011,01/20/2010,01/28/2009 ,01/16/2008,01/24/2007,02/08/2006,01/20,02/26/2003 Seasonal Influenza Virus Vac cine, Unspecified Formulation 11/19/2017,01/31/2017,01/04/2015,12/28,03/21/2011 Seasonal Influenza, High Dos e, Trivalent, PF, IM (Fluzone HD) 12/29/2023,01/04/2018 Seasonal Influenza, PF, 6 M & above, IM , (FluLaval or Fluzone) 12/12/2018,01/04/2018,02/01/2017 Seasonal Influenza, Quadriva lent Hd (Fluzone Hd) 12/10/2021,12/05/2020 TD - Tetanus/Diptheria (ADULT) 09/19/2003 TD, Preservative Free 09/26/2013,03/21/2007 TDAP (age 10 and older)(Boostrix) 05/01/2010 TDAP, Age 7 and older, IM (Adacel) 11/17/2023, Varicella Zoster Vaccine (Adult) 11/21/2013,07/0 03/2013 Zoster Vaccine Recombinant (Shingrix) 12/10/2019 ,03/04/2019 documented as of this encounter Social History Tobacco Use Types Packs/Day Years Used Date Smoking Tobacco: Former Cigarettes 0.5 5 0 03/21/1964 - 03/21/1969 Passive Smoke Exposure: Past Smokeless Tobacco: Former Chew Comments:Current occasional chew use - 1 pouch/month Alcohol Use Standard Drinks/Week Comments Not Currently 0 (1 standard drink = 0.6 oz pur e alcohol) Very occasional PHQ-2 Answer Date Recorded PHQ Adult Total Score 2 04/15/2023 Hunger Vital Sign Answer Date Recorded Within the past 12 months, y ou worried that your food would run out before you got the money to buy more. Never true 04/15/19 Within the past 12 months, t he food you bought just didn't last and you didn't have money to get more. Never true 04/15/2023 Childcare Answer Date Recorded Do you feel overwhelmed with taking care of a child, family member or friend? No 04/15/2023 Does your family need help f inding childcare? (Household - for ages 0-17 years) Not on file 04/15/2023 Clothing Answer Date Recorded Have you been unable to get clothing when it was really needed? No 04/15/2023 Is your family able to get c lothes or diapers when needed? (Household - for ages 0-17 years) Not on file 04/15/2023 Personal Safety Answer Date Recorded Do you feel unsafe or have concerns for your saf ety? No 04/15/2023 Do you have concerns for you r family's safety? (Household - for ages 0-17 years) Not on file 04/15/2023 Utilities Answer Date Recorded Do you have trouble paying y our heating, water, or electric bill? No 04/15/2023 Is your family able to pay t he heat, water, or electric bill? (Household - for ages 0-17 years) Not on file 04/15/2023 Does your family have access to good internet? (Household - for ages 0-17 years) Not on file 04/15/2023 Employment Status Answer Date Recorded Are you unemployed or without regular income? No 04/15/2023 Does the household have a re gular source of income? (Household - for ages 0-17 years) Not on file 04/15/2023 Social Connections Answer Date Recorded How often do you feel lonely or isolated from th ose around you? Never 04/15/2023 Financial Resource Strain Answer Date R ecorded Do you have any trouble payi ng for your medications, or do you think you might in the future? No 04/15/2023 Does your family have troubl e paying for medicine? (Household - for ages 0-17 years) Not on file 04/15/2023 Transportation Needs Answer Date Record ed READ ONLY Do you have troubl e getting a ride to medical visits or work? Never True 04/15/2023 Does your family have a hard time getting a ride to doctors visits? (Household - for ages 0-17 years) Not on file 04/15/2023 Has lack of transportation k ept you from medical appointments, meetings, work, or from getting things needed for daily living? Check all that apply. (Adult - for ages 18 years and over) Not on file 04/15/2023 Do you (or your family) have trouble finding or paying for a ride (transportation)? (Household - for ages 0-17 years) Not on file 04/15/2023 Housing Stability Answer Date Recorded Do you currently live in a s helter or have no steady place to sleep at night? No 04/15/2023 READ ONLY Do you think you a re at risk of becoming homeless? No 04/15/2023 Does your family worry about paying for your home or becoming homeless? (Household - for ages 0-17 years) Not on file 0 04/15/2023 Are you homeless or worried that you might be in the future? (Adult - for ages 18 years and over) Not on file Are you (or your family) alexi eless or worried that you might be in the future? (Household - for ages 0-17 years) Not on file Food Insecurity Answer Date Recorded Do you need food for this week? No 04/15/2023 Are you able to get enough f ood for your family? (Household - for ages 0-17 years) Not on file 04/15/2023 Does your family need food t his week? (Household - for ages 0-17 years) Not on file 04/15/2023 Do you always have enough fo od for your family? (Household - for ages 0-17 years) Not on file 04/15/2023 Sex and Gender Information Value Date Recorded Sex Assigned at Male 08/07/2018 11:32 AM EDT Legal Sex Male 5:04 AM EST Gender Identity Male 08/07/2018 11:32 AM EDT Sexual Orientation Straight 08/07/2018 11 :32 AM EDT documented as of this encounter Functional Status * Are you deaf or do you have serious difficulty hearing? Answer Date of Assessment Author No 06/29/2020 5:01 AM Sa valentine Morse RN * Are you blind or do you have serious difficulty seeing, even when wearing glasses? Answer Date of Assessment Author No 06/29/2020 5:01 AM Sa valentine Morse RN * Do you have serious difficulty walking or climbing stairs? (5 years old or older) Answer Date of Assessment Author No 06/29/2020 4:00 PM Padma Briggs RN * Do you have difficulty dressing or bathing? (5 years old or older) Answer Date of Assessment Author No 06/29/2020 5:01 AM Sa valentine Morse RN * Because of a physical, mental, or emotional condition, do you have difficulty doing errands alone such as visiting a doctors office or shopping? (15 years old or older) Answer Date of Assessment Author No 06/29/2020 5:01 AM Sa valentine Morse RN documented as of this encounter Mental Status * Because of a physical, mental, or emotional condition, do you have serious difficulty concentrating, remembering, or making decisions? (5 years old or older) Answer Entry Date Author No 06/29/2020 5:01 AM Sa valentine Morse RN documented in this encounter Miscellaneous Notes * Telephone Encounter - Krys Stalye, KODY - 03/01/2024 3:48 PM EST Patient Assistance Name of Medication: GLEOSTINE 100 MG CAPSULE Was patient spoken to: : YES Type of assistance: no foundations open at this time, called patient to access first for pharmacy [facility] patient has [facility] gold and the med is covered but just high copay so we are able to apply for pace / pharmacy [facility] if patient is over income for those we than can apply for [facility]. Either way we need copies of patient income docs to send to assistance programs called patient no answer , left message to return my call. Applications mailed: : No Follow up: 2-4 days Krys Staley Medication Trimmer Sorter 03/01/24.3:45 PM * Telephone Encounter - Tiffanie Disla RPh - 02/29/2024 10:22 AM EST Hello, Patient to see Dr Solo in 1-2 weeks with tentative plan to start lomustine after visit. I see prior to patient's surgery he was working with [facility] for assistance and was also willing to payout of pocket for first fill. Can we please re-visit assistance so we have in place prior to needing to start? Please have him apply to [facility] clinical practitioner assistance. Thanks! Tiffanie Disla, PharmD Ambulatory Clinical Pharmacist | Oral Chemotherapy Clinic [facility] 02/29/2024, 10:23 AM documented in this encounter Plan of Treatment Upcoming Encounters Date Type Department Care Team (Late st Contact Info) Description 03/02/2024 3:00 PM EST Office Visit Family Practice [address] [facility] [place] [address] [place] [address] Apolinar Wayne, [address] [facility] [place] [address] 03/05/2024 3:45 PM EST Pharmacy Pharmacy Hematology Oncology [facility] [address], [place] [id number] [facility] Hem/Onc [address] [place] [address] 03/15/2024 9:15 AM EST Office Visit [facility]emat[facility]On[facility] [address] [facility] [place] [id number] Fernando Solo MD [address] [facility] [place] [address] 03/27/2024 1:40 PM EST Office Visit Family Practice [address] [place] [address] [place] [address] Apolinar Wayne, [address] [place] [address] Scheduled Procedures Name Priority Associated Diagnoses Date/Ti me COLONOSCOPY FLEXIBLE PROXIMAL DIAGNOSTIC Recall History of colonic polyps ESOPHAGOGASTRODUODENOSCOPY ( EGD), FLEXIBLE, TRANSORAL, DIAGNOSTIC Recall Hedrick's esophagus Health Maintenance Due Date Last Done Comments Adult Wellness Visit 2014 Hedrick's Esophagus Surveilance 09/27/2021 09/27/2018, 09/27/2018, 06/06/2015, Additional history exists Depression Monitoring 04/15/2024 04/15/2023 Diabetic Eye Exam 05/17/2024 05/17/2023, , 03/15/2023, Additional history exists Diabetic Foot Exam 05/18/2024 05/18/2023, 0 06/11/2022, 08/12/2021, Additional history exists HbA1c 07/30/2024 01/31/2024, 10/20, 08/09/2023, Additional history exists Colonoscopy 11/01/2024 11/02/2019, 10/19, 09/30/2016, Additional history exists Albumin/Creatinine Ratio 11/16/2024 024, 12/14/2022, 02/17/2022, Additional history exists GFR 02/14/2025 02/15/2024, 01/20, 02/14/2024, Additional history exists DTap/Tdap Vaccines (5 - Td or Tdap) 11/16/2033 11/17/2023, 09/26/2013, 05/01/2010, Additional history exists Pneumococcal Vaccine: 65+ Years Completed 06/20/2018, 09/13/2017, 10/23/2015, Additional history exists RETIRED - COLONOSCOPY-EVERY 5 YRS AGES 18-100 Discontinued 11/02/2019, 11/02/2019, 09/30/2016, Additional history exists Zoster Vaccines Completed 12/10/2019, 02/18, 11/21/2013, Additional history exists Influenza Vaccine (FLU shot) Completed 12/29/2023, 12/07/2022, 12/10/2021, Additional history exists COVID-19 Vaccine Completed 01/17/2024, , 04/13/2022, Additional history exists HPV (Gardasil) Vaccine Aged Out No lo nger eligible based on patient's age to complete this topic Hepatitis B Vaccine Aged Out No longe r eligible based on patient's age to complete this topic MENINGOCOCCAL (MENACTRA/MENVEO) Aged Out No longer eligible based on patient's age to complete this topic documented as of this encounter Medical Devices Implanted Type Area Machines Technician Device Identifier Shelf Expiration Date Model / Serial / Lot Graft Lyoplant 5.0x5.0cm 2x2 - [id number] Implanted:Qty : 1 on 06/24/2020 by Madi Kaur MD at [place] [facility] [place] Right: Head B ALICEA : AESCULAP 11/18/2024 [id number] / / [id number] Graft Lyoplant 5.0x5.0cm 2x2 - [id number] Implanted:Qty : 1 on 06/24/2020 by Madi Kaur MD [place] [facility] [place] B ALICEA : AESCULAP [id number] 11/18/2024 [id number] / [id number] / [id number] Graft Lyoplant 5.0x5.0cm 2x2 - [id number] Implanted:Qty : 1 on 06/24/2020 by Madi Kaur MD at [place] [facility] [place] Right: Head B ALICEA : AESCULAP 06/24/2020 [id number] / / [id number] Graft Lyoplant 5.0x5.0cm 2x2 - [id number] Implanted:Qty : 1 on 06/24/2020 by Madi Kaur MD at [place] [facility] [place] B ALICEA : ARIAN [id number] 11/18/2024 [id number] / [id number] / [id number] Plate Ti Lo Pro Str 2h 421.502 - [id number] Implanted:Qty : 2 on 06/24/2020 by Madi Kaur MD at [place] [facility] [place] Right: Head SYNTHES MAXILLOFACIAL 421.502 / / Plate Bx Ti [id number] 4h 421.521 - [id number] Implanted:Qty : 1 on 06/24/2020 by Madi Kaur MD at [place] [facility] [place] Right: Head SYNTHES MAXILLOFACIAL 421.521 / / Screw Ti Lo Pro Sd 4mm 400.834 - [id number] Implanted:Qty : 7 on 06/24/2020 by Madi Kaur MD at [place] [facility] [place] Right: Head SYNTHES MAXILLOFACIAL 400.834 / / documented as of this encounter Advance Directives * Full Code (Latest Code Status on File) Date Activated Date Inactivated Comments 06/29/2020 5:34 AM 07/04/2020 9:44 PM This order r eflects the patients wishes and were consensually agreed upon. Question Answer Comments Discussion of Advance Directives occurred with: Patient Does the patient have a Living Will? No Does the patient have Health Care Power of Attor lovely? No * Full Code Date Activated Date Inactivated Comments 06/24/2020 2:41 PM 06/25/2020 5:17 PM This order ref lects the patients wishes and were consensually agreed upon. Question Answer Comments Discussion of Advance Directives occurred with: Not Discussed * Full Code Date Activated Date Inactivated Comments 06/24/2020 12:24 PM 06/24/2020 2:41 PM This order re flects the patients wishes and were consensually agreed upon. Healthcare Agents on File Name Relationship Healthcare Agent Gelacherelle marcos Lam Spouse Health Care Agent Care Teams Information Director Relationship Specialty Start Date End Date Apolinar Wayne DO [address] [facility] [place] [address] PCP - General Internal Medicine 11/15/23 documented as of this encounter"
--- OUTSIDE RECORDS SUMMARY | 2024-03-04 06:59 | External Medical Summary | Summary of Care ---
Author Name Unknown Organization [facility] Address [address] [place] [address] Phone [phone] Care Team Providers Care Fund Accountant Name Role Phone Apolinar Wayne DO Primary Care Provider [phone] Reason for Visit * Reason Onset Date Comments FYI 02/28/2024 Edil Encounter Details Date Type Department Care Team (Late st Contact Info) Description 02/28/2024 Telephone [facility] [place] [address] [facility] [place] [phone] Fernando Metz MD [address] [facility] [place] [address] FYI (Edil ) Allergies Active Allergy Reactions Criticality Noted Date Comments Erythromycin 07/02/1998 GI upset Guaifenesin & Derivatives 03/18/1997 nucofed documented as of this encounter (statuses as of 03/02/2024) Medications BD Pen Needle Altagracia U/F 32G [...] by mouth every afternoon. (get from the [place]) 04/15/19 Active Vitamin D3 25 MCG (1000 UT) [...] by mouth in the morning. (From the [place]). 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 Pulmonary hypertension 10/10/2018 Diabetes 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 06/27/2018 MCC (current) use of insulin 10/27/2017 History of [...] as of this encounter (statuses as of 03/02/2024) Resolved Problems Problem Noted Date Diagnosed Date [...] as of this encounter (statuses as of 03/02/2024) Immunizations Name Administration Dates Next Due COVID-19 mRNA, LNP-s, No Pre serve, 2-Dose Series ([employer]) 03/10/2021,06/07/2020,05/17/2020 COVID-19, LNP-s, No Preserve , Chandler-sucrose, Ages 12+ ([employer]im) 11/17/2021 COVID-19, MRNA-LNP, PF, 30 M CG/0.3 mL, 12 YRS AND ABOVE, IM (PFIZER-Comirnat) 01/17/2024,03/08/2023 Covid-19, Mrna, Lnp-s, Pf, B ivalent, [...] IM (Adacel) 11/17/2023, Varicella Zoster Vaccine (Adult) 11/21/2013,070 03/2013 Zoster Vaccine Recombinant (Shingrix) 12/10/2019 ,03/04/2019 [...] money to buy more. Never true 04/15/19 24 Within the past 12 months, t he [...] encounter Miscellaneous Notes * Telephone Encounter - Amber Noe OSA - 02/29/2024 11:20 AM EST Records came through now Gave to nursing to scan into pts chart. * Telephone Encounter - Amber Noe OSA - 02/29/2024 10:49 AM EST Pt is scheduled for 03/15 at 915 and is aware Pts asked me to send a message to regarding pts issue he has been having She stated that [facility] is aware and they said to contact us Headaches front of head " per them tention headache" Issues with sight out of left eye Headaches/ eye sight have been everyday and they have started since the surgery. Even in ICU per pt and They are unsure if they are to wait until apt on 03/15 or if they should do a " scan per [facility] before they are seen on the " * Telephone Encounter - Amber Noe OSA - 02/29/2024 9:45 AM EST Faxed another request Will call 1. Dr. Richards, Surgeon Alexandra, his nurse [phone] Attempted to call as I called the reg [facility] number and no one had info on this pt [facility] [place] [place] [address] phone: [phone] Called them They said Refaxed to their new direct number that they were able to provider so that pt can get results delia To get scheduled. Waiting on answer from SP par were to add pt for the 1 to 2 wk follow up * Telephone Encounter - Jefferson Alvarado, HECTOR - 02/29/2024 9:41 AM EST Scheduling- please call patients to schedule follow up with Dr. Metz in 1- 2 weeks. I know youpreviously had requested reports from [facility], I don't see records uploaded as of today. [facility] to see if we can get records of his surgery and the pathology report from this for his follow up. MTM- KANDICEI regarding Lomustine. * Telephone Encounter - Fernando Metz MD - 02/28/2024 4:36 PM EST I spoke with Dr. Mclain, reviewed his case, he had a resection of the recurrent GBM. He was at [facility], now he is at home. They are recommending lomustine which we planned earlier. I would like to see him in the clinic in the next 1 to 2 weeks. We have to get path records from [facility] * Telephone Encounter - Jefferson Alvarado, RN - 02/28/2024 3:[address] Metz- STEPHANIE * Telephone Encounter - Milena Whitfield OSA - 02/28/2024 2:17 PM EST Minda from [facility] calling regarding patient dr. Mclain asking to touch base with dr metz, please call dr mclain back at [phone] documented in this encounter Plan of Treatment Upcoming Encounters Date Type Department Care Team (Late st Contact Info) Description 03/02/2024 3:00 PM EST Office Visit Family [address] [place] [address] Apolinar Wayne, [address] [place] [address] 03/05/2024 3:45 PM EST Pharmacy Pharmacy Hematology Oncology [facility] [address] [place] [address] [facility], [facility] Hem/Onc [address] [place] [address] 03/15/2024 9:15 AM EST Office Visit Hematology/Oncology [facility] [address] [place], [place] [address] Fernando Metz MD [address] [place] [address] 03/27/2024 1:40 PM EST Office Visit Family Practice [address], [place] 293 [place] [phone] Apolinar Wayne DO 293 [place] [address] Scheduled Procedures Name Priority Associated Diagnoses Date/Ti [...] this encounter Medical Devices Implanted Type Area Press Puller Device Identifier Shelf Expiration Date Model / Serial / Lot Graft Lyoplant 5.0x5.0cm 2x2 - [id number] Implanted:Qty : 1 on 06/24/2020 by Madi Kaur MD at [place] [facility] [place]: Head B ALICEA : AUTUMNCULAP 11/18/2024 [id number] / / [id number] Graft Lyoplant 5.0x5.0cm 2x2 - [id number] Implanted:Qty : 1 on 06/24/2020 by Madi Kaur MD at [place] [facility] B ALICEA : AUTUMNCULAP [id number] 11/18/2024 [id number] / [id number] / [id number] Graft Lyoplant 5.0x5.0cm 2x2 - [id number] Implanted:Qty : 1 on 06/24/2020 by Madi Kaur MD at [place] [facility] Right: Head B ALICEA : AESCULAP 06/24/2020 [id number] / / [id number] Graft Lyoplant 5.0x5.0cm 2x2 - [id number] Implanted:Qty : 1 on 06/24/2020 by Madi Kaur MD at [place] [facility] B ALICEA : AESCULAP [id number] 11/18/2024 [id number] / [id number] / [id number] Plate Ti Lo Pro Str 2h 421.502 - [id number] Implanted:Qty : 2 on 06/24/2020 by Madi Kaur MD at [place] [facility] [place] Right: Head SYNTHES MAXILLOFACIAL 421.502 / / Plate Bx Ti [id number] 4h 421.521 - [id number] Implanted:Qty : 1 on 06/24/2020 by Madi Kaur MD at [place] [facility] Right: Head SYNTHES MAXILLOFACIAL 421.521 / / Screw Ti Lo Pro Sd 4mm 400.834 - [id number] Implanted:Qty : 7 on 06/24/2020 by Madi Kaur MD at [place] [facility] Right: Head SYNTHES MAXILLOFACIAL 400.834 / / [...] Agents on File Name Relationship Healthcare Agent Relationshi p Communication Aimee Lam Spouse Health Care Agent Care Teams Fund Accountant Relationship Specialty Start Date End Date Apolinar Wayne DO [address] [place] [address] PCP - General Internal Medicine 11/15/23 documented as of this encounter
--- OUTSIDE RECORDS SUMMARY | 2024-03-04 06:59 | External Medical Summary ---
Author Name Unknown Address Unknown Organization : Laboratory Report Ordering Provider Test Date Status NEREYDA GEORGES 03/02/2024 15:34:56 Final Observation Date Value Abnormality Reference (Units ) Status Glucose Point of Care 03/02/2024 15:34:56 201 Above high normal 70-120 (mg/dL) Final Performing Location
--- OUTSIDE RECORDS SUMMARY | 2024-03-04 07:00 | External Medical Summary | Summary of Care ---
Author Name Unknown Organization [facility] Address [address] [place] [address] Phone [phone] Care Team Providers Care Engraver Ornamental Design Name Role Phone Apolinar Wayne DO Primary Care Provider [phone] Encounter Details Date Type Department Care Team (Late st Contact Info) Description 02/29/2024 Telephone Pharmacy Hematology Oncology [facility] [place] [address] [place] [address] Tiffanie Disla, [facility] [address] [place] [facility] [place] [address] Allergies Active Allergy Reactions Criticality Noted Date [...] Tablet by mouth in the morning. 04/15/19 Active Rivaroxaban 20 MG Oral Tablet (Xarelto)Indicati ons:blood clot prevention Take 1 Tablet by mouth every afternoon. (get from the [place]) 04/15/19 Active Vitamin D3 25 MCG (1000 [...] by mouth in the morning. (From the [place]). 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 History of [...] mRNA, LNP-s, No Pre serve, 2-Dose Series (Not[employer]) 03/10/2021,06/07/2020,05/17/2020 COVID-19, LNP-s, No Preserve , Chandler-sucrose, Ages 12+ (Notifixious) 11/17/2021 COVID-19, MRNA-LNP, PF, 30 M CG/0.3 mL, 12 YRS AND ABOVE, IM (PFIZER-Comirnaty) 01/17/2024,03/08/2023 Covid-19, Mrna, Lnp-s, Pf, B ivalent, 30 Mcg, IM, 12 yrs and above (Pfizer) 04/13/2022 H1N1 2009 Influenza, IM 12/10/2019,04/01/2009 Pneumococcal Conjugate Vacc, 13 Valent (Prevnar) 10/23/2015 Pneumococcal Conjugate Vacci ne, 7 Valent 09/26/2013 Pneumococcal Polysaccharide PPV23 (Pneumovax) 06/20/2018,09/13/2017,09/26/2013,08/25 Season Influenza, Quad, PF, Adjuvanted, 65+ Yrs, IM (FLUAD) 12/07/2022 Seasonal Influenza Vac., MDV , IM, 0.5 mL (Fluzone) 12/11/2015,01/04/2015,03/09/2013,12/29,03/09/2011,01/20/2010,01/28/2009 ,01/16/2008,01/24/2007,02/08/2006 Seasonal Influenza Virus Vac cine, Unspecified Formulation 11/19/2017,01/31/2017,01/04/2015,12/28,03/21/2011 Seasonal Influenza, High Dos e, Trivalent, PF, IM (Fluzone HD) 12/29/2023,01/04/2018 Seasonal Influenza, PF, 6 M & above, IM , (FluLaval or Fluzone) 12/12/2018,01/04/2018,02/01/2017 Seasonal Influenza, Quadriva lent Hd (Fluzone Hd) 12/10/2021,12/05/2020 TD, Preservative Free 09/26/2013,03/21/2007 TDAP (age 10 [...] encounter Miscellaneous Notes * Telephone Encounter - Tiffanie Disla, [facility] - 02/29/2024 10:22 AM EST Viktor, Patient to see Dr Solo in 1-2 weeks with tentative plan to start lomustine after visit. I see prior to patient's surgery he was working with [facility] for assistance and was also willing to payout of pocket for first fill. Can we please re-visit assistance so we have in place prior to needing to start? Please have him apply to [employer] cares director public assistance. Thanks! Tiffanie Disla, PharmD Ambulatory Clinical Pharmacist | Oral Chemotherapy Clinic [facility] 02/29/2024, 10:23 AM documented in this encounter Plan of Treatment Upcoming Encounters Date Type Department Care Team (Late st Contact Info) Description 03/02/2024 3:00 PM EST Office Visit Family Practice [address] [place] [address] [address] [place] [address] Apolinar Wayne, [address] [place] [address] 03/05/2024 3:45 PM EST Pharmacy Pharmacy Hematology Oncology [place] [address] [place] [address] [facility], [facility] Hem/Onc [facility] [place] [address] 03/15/2024 9:15 AM EST Office [facility]ology[facility] [address] [place] [phone] Fernando Solo MD 200 [place] [address] 03/27/2024 1:40 PM EST Office Visit Family [address] [place] [address] Apolinar Wayne, 293 [place] [address] Scheduled Procedures Name Priority Associated Diagnoses Date/Ti [...] this encounter Medical Devices Implanted Type Area Negative Turner Apprentice Device Identifier Shelf Expiration Date Model / Serial / Lot Graft Lyoplant 5.0x5.0cm 2x2 - [id number] Implanted:Qty : 1 on 06/24/2020 by Madi Kaur MD at [place] [facility] Right: Head B ALICEA : AESCULAP 11/18/2024 [id number] / / [id number] Graft Lyoplant 5.0x5.0cm 2x2 - [id number] Implanted:Qty : 1 on 06/24/2020 by Madi Kaur MD at OR [facility] B ALICEA : AESCULAP [id number] 11/18/2024 [id number] / [id number] / [id number] Graft Lyoplant 5.0x5.0cm 2x2 - [id number] Implanted:Qty : 1 on 06/24/2020 by Madi Kaur MD at OR [facility] Right: Head B ALICEA : AESCULAP 06/24/2020 [id number] / / [id number] Graft Lyoplant 5.0x5.0cm 2x2 - [id number] Implanted:Qty : 1 on 06/24/2020 by Madi Kaur MD at OR [facility] B ALICEA : AESCULAP [id number] 11/18/2024 [id number] / [id number] / [id number] Plate Ti Lo Pro Str 2h 421.502 - [id number] Implanted:Qty : 2 on 06/24/2020 by Madi Kaur MD at OR [facility] Right: Head SYNTHES MAXILLOFACIAL 421.502 / / Plate Bx Ti [id number] 4h 421.521 - [id number] Implanted:Qty : 1 on 06/24/2020 by Madi Kaur MD at OR [facility] Right: Head SYNTHES MAXILLOFACIAL 421.521 / / Screw Ti Lo Pro Sd 4mm 400.834 - [id number] Implanted:Qty : 7 on 06/24/2020 by Madi Kaur MD at OR [facility] Right: Head SYNTHES MAXILLOFACIAL 400.834 / / [...] Agents on File Name Relationship Healthcare Agent [facility] p Communication Aimee Lam Spouse Health Care Agent Care Teams Engraver Ornamental Design Relationship Specialty Start Date End Date Apolinar Wayne DO [address] [place] [address] PCP - General Internal Medicine 11/15/23 documented as of this encounter"
--- OUTSIDE RECORDS SUMMARY | 2024-03-04 07:00 | External Medical Summary | Summary of Care ---
Author Name Unknown Organization [facility] Address [address] [place] [address] Phone [phone] Care Team Providers Care Escalator Installer Name Role Phone Apolinar Wayne DO Primary Care Provider [phone] Reason for Visit * Reason Onset Date Comments Advice 02/29/2024 Encounter Details Date Type Department Care Team (Late st Contact Info) Description 02/29/2024 Telephone Care Coordination and Integration [address] [place], [place] [phone] Rain Yañez, HECTOR [address] [place], [place] [phone] Advice Allergies Active Allergy Reactions Criticality Noted Date Comments Erythromycin 07/02/1998 GI upset Guaifenesin & Derivatives 03/18/1997 nucofed documented as of this encounter (statuses as of 02/29/2024) Medications BD Pen Needle Altagracia U/F 32G [...] by mouth every afternoon. (get from the [place]) 04/15/19 Active Vitamin D3 25 MCG (1000 [...] by mouth in the morning. (From the [place]). 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 Pulmonary hypertension 10/10/2018 Diabetes 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 06/27/2018 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 History of [...] as of this encounter (statuses as of 02/29/2024) Resolved Problems Problem Noted Date Diagnosed Date [...] as of this encounter (statuses as of 02/29/2024) Immunizations Name Administration Dates Next Due COVID-19 mRNA, LNP-s, No Pre serve, 2-Dose Series ([employer]) 03/10/2021,06/07/2020,05/17/2020 COVID-19, LNP-s, No Preserve , Chandler-sucrose, Ages 12+ ([employer]) 11/17/2021 COVID-19, MRNA-LNP, PF, 30 M CG/0.3 [...] IM (Adacel) 11/17/2023, Varicella Zoster Vaccine (Adult) 11/21/2013,03/2013 Zoster Vaccine Recombinant (Shingrix) 12/10/2019 ,03/04/2019 documented [...] encounter Miscellaneous Notes * Telephone Encounter - Apolinar Wayne DO - 02/29/2024 2:46 PM EST Port called to [facility] ED * Telephone Encounter - Jefferson Alvarado RN - 02/29/2024 2:[address] Vinay cochran, patient going to [facility] ER, will follow up on status tomorrow and imaging/labs. * Telephone Encounter - Rain Yañez RN - 02/29/2024 2:29 PM EST notified. They will be going to [facility] ER to follow up on symptoms. She said she will have reports sent to PCP and Dr. Simental. * Telephone Encounter - Apolinar Wayne DO - 02/29/2024 2:19 PM EST Patient will need to go to ED for emergent imaging for vision loss and difficulty with balance. Had recent resection of GBM. Agree with Neurosurgery recommendations. * Telephone Encounter - Rain Yañez RN - 02/29/2024 2:08 PM EST RE: patient myG message from 02/28: "Dr. Solo. Gilbert and I have been contacted by Dr. 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 I have sent Dr. Wayne a request.to order this scan. I realize having chosen [facility] in [place] has caused some confusion as to who should be responsible for tests/followup labwork. Anyway you can he " I called and spoke to Dr. Simental ad Dr. Borrego's offices. Both spoke with patient yesterday. Dr. Borrego is passing patient along to Dr. Solo as he no longer requires radiation. And that Dr. Solo's office will coordinate and order MRIs in the future. Spoke to Minda from Dr. Simental's office; said he was unaware of many of patient's symptoms (he knew about headache), but did not know about loss of left peripheral vision until the phone call yesterday (02/27) with patient and his . Minda at his office said he "advised him to go to the ER to get an MRI. If things are really bad, to go to the ER; if they are not that bad, OK to touch base with Dr. Solo's office first and go from there" Spoke to patient's . She is unsure of what scan the doctors at [facility] want. The [facility] doctors werejust made aware of patient's c/o headache and peripheral vision loss yesterday (02/28/24). Per , son said this has been happening since he was in ICU-- and was told "nothing to worry about." Per , [facility] doctors wants MRI ordered, and monthly there after "to keep an eye on everything." Reports phone call with Dr. Simental yesterday via video. Confused- as to what was discussed besides that pathology showed "typical glioblastoma" Patient states when headache happens, pain= 6/10. States headache has been resolved with PO Tylenol. Pain is "tension headache." Pain is across forehead. States headache is once a week, but they comeon all of sudden. Stitches are from bottom of right ear up to worship. States incision is clean, dry& intact. Denies fevers, SOB. Does have a dry cough (1-2x/day), and thrush- which is resolving f rom meds prescribed by Dr. Wayne. Vision: right eye is normal. Left eye- states he has full vision with left eye but states thatwhen he is walking with the walker, he veers to the left, and uses walker like a car that is out ofalignment. Patient states vision is better than when he was in the hospital. He will be seen at Dr. Wayne's office Tuesday, 03/02 @ 1500. Recommendations? documented in this encounter Plan of Treatment Upcoming Encounters Date Type Department Care Team (Late st Contact Info) Description 02/29/2024 3:30 PM EST Pharmacy Pharmacy Hematology Oncology [facility], [place] [address] [place] [address] [facility], [facility] Hem/Onc [address] [place] [address] Glioblastoma (HCC)* 03/02/2024 3:00 PM EST Office Visit Family [address] [place] [address] Apolinar Wayne, DO [address] [place] [address] 03/05/2024 3:45 PM EST Pharmacy Pharmacy Hematology Oncology [facility], [place] [address] [place] [address] [facility], [facility] Hem/Onc [address] [place] [address] 03/15/2024 9:15 AM EST Office [facility] [address] [facility] [place] [address] Fernando Solo MD 200 [place] [address] 03/27/2024 1:40 PM EST Office Visit Family [address] [place] [address] Apolinar Wayne, 293 [place] [address] Scheduled Procedures Name Priority Associated Diagnoses Date/Ti [...] this encounter Medical Devices Implanted Type Area Fur Grader Device Identifier Shelf Expiration Date Model / Serial / Lot Graft Lyoplant 5.0x5.0cm 2x2 - [id number] Implanted:Qty : 1 on 06/24/2020 [place] Madi Kaur MD [place] [facility] [place]: Head B ALICEA : AESCULAP 11/18/2024 [id number] / / [id number] Graft Lyoplant 5.0x5.0cm 2x2 - [id number] Implanted:Qty : 1 on 06/24/2020 by Madi Kaur MD [place] [facility] B ALICEA : AESCULAP [id number] 11/18/2024 [id number] / [id number] / [id number] Graft Lyoplant 5.0x5.0cm 2x2 - [id number] Implanted:Qty : 1 on 06/24/2020 by Madi Kaur MD [place] [facility] Right: Head B ALICEA : AESCULAP 06/24/2020 [id number] / / [id number] Graft Lyoplant 5.0x5.0cm 2x2 - [id number] Implanted:Qty : 1 on 06/24/2020 by Madi Kaur MD [place] [facility] B ALICEA : AESCULAP [id number] 11/18/2024 [id number] / [id number] / [id number] Plate Ti Lo Pro Str 2h 421.502 - [id number] Implanted:Qty : 2 on 06/24/2020 by Madi Kaur MD [place] [facility] Right: Head SYNTHES MAXILLOFACIAL 421.502 / / Plate Bx Ti [id number] 4h 421.521 - [id number] Implanted:Qty : 1 on 06/24/2020 by Madi Kaur MD [place] [facility] Right: Head SYNTHES MAXILLOFACIAL 421.521 / / Screw Ti Lo Pro Sd 4mm 400.834 - [id number] Implanted:Qty : 7 on 06/24/2020 by Madi Kaur MD [place] [facility] Right: Head SYNTHES MAXILLOFACIAL 400.834 / / [...] Agents on File Name Relationship Healthcare Agent [facility] Communication Aimee Lam Spouse Health Care Agent Care Teams Escalator Installer Relationship Specialty Start Date End Date Apolinar Wayne DO [address] [place] [address] PCP - General Internal Medicine 11/15/23 documented as of this encounter
--- OUTSIDE RECORDS SUMMARY | 2024-03-04 07:00 | External Medical Summary | Summary of Care ---
Author Name Unknown Organization [facility] Address [address] [place] [address] Phone [phone] Care Team Providers Care Commissioned Security Officer Name Role Phone Apolinar Wayne DO Primary Care Provider [phone] Encounter Details Date Type Department Care Team (Late st Contact Info) Description 02/28/2024 12:30 PM EST Home Visit [facility], [facility] [address] [facility] [place] [address] Betzy Vega, RN 132 [facility] [place] [address] Allergies Active Allergy Reactions Criticality Noted Date [...] by mouth every afternoon. (get from the [place]) 04/15/19 Active Vitamin D3 25 MCG (1000 [...] by mouth in the morning. (From the [place]). 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 Never 04/15/2023 Financial Resource [...] AM EDT documented as of this encounter Last Filed Vital Signs Vital Sign Reading Time Taken Comments Blood Pressure 110/60 02/28/2024 1:00 PM EST Pulse 84 02/28/2024 1:00 PM EST Temperature 36 C (96.8 F) 02/28/2024 1:00 PM EST Respiratory Rate 18 02/28/2024 1:00 PM EST Oxygen Saturation 95% 02/28/2024 1:00 PM EST Inhaled Oxygen Concentration - - Weight - - Height - - Body Mass Index - - documented in this encounter Functional Status * Are you [...] valentine Morse RN documented in this encounter Progress Notes * Betzy Vega RN - 02/28/2024 12:29 PM EST Current Concerns: Patient seen for JOSELIN#2- s/p [facility] stay on 01/31/2024 for resection of recurrent GBM.Discharged to [facility] 02/19. Discharge home 02/24. Medical history- DM Type II, Hyperlipidemia, BPH, Pulmonary HTN, Pulmonary Embolism, left leg DVT, Hedrick's Esophagus, Anxiety, Depression present for visit- reports patient is lacking peripheral vision in left eye. States this has been intermittent since recent surgery. Pupils equal and reactive. Right side of head- incision healing- sutures dissolving. No drainage. Bilateral hand grasps equal Gait steady with walker. Does complain of fatigue. Sat at table for approximately 25 minutes and requested to go sit in recliner. + weakness Denies pain at present time. VS wnl Lungs clear bilaterally Sob with moderate exertion No LE edema noted Voiding without difficulty Bowels wnl Appetite fair to good Taking fluids well does pill packs- Epic reflects current medication regimen. Continues with Clotrimazole lozenges- thrush resolving. Physical Exam: Physical Exam Constitutional: Appearance: Normal appearance. Cardiovascular: Rate and Rhythm: Normal rate and regular rhythm. Pulses: Normal pulses. Pulmonary: Effort: Pulmonary effort is normal. Breath sounds: Normal breath sounds. Abdominal: General: Bowel sounds are normal. Palpations: Abdomen is soft. Musculoskeletal: General: Normal range of motion. Skin: General: Skin is warm and dry. Capillary Refill: Capillary refill takes 2 to 3 seconds. Coloration: Skin is pale. Neurological: General: No focal deficit present. Mental Status: He is alert and oriented to person, place, and time. Psychiatric: Mood and Affect: Mood normal. Behavior: Behavior normal. Review of Systems: Review of Systems Constitutional: Positive for fatigue. Respiratory: Negative. Cardiovascular: Negative. Gastrointestinal: Negative. Genitourinary: Negative. Musculoskeletal: Positive for gait problem. Skin: Negative. Neurological: Positive for weakness. Hematological: Negative. Psychiatric/Behavioral: Negative. Care Plan Goal Progress: Patient will remain free of falls. (Progressing) Start: 02/29/24 Expected End: 06/28/24 GS - Patient/caregiver will verbalize ways to manage fatigue during cancer treatment. (Progressing) Start: 12/13/23 Patient will achieve & maintain fluid & electrolyte balance. (Progressing) Start: 12/13/23 Expected End: 03/12/24 Orders Placed: No orders of the defined types were placed in this encounter. Medications Given: Care Gaps: Care Gaps Care gaps closed this contact: Education (02/29/24 1720) Type of education: Clinical/disease (02/29/24 1720) documented in this encounter Plan of Treatment Upcoming Encounters Date Type Department Care Team (Late st Contact Info) Description 03/02/2024 3:00 PM EST Office Visit Family Practice 65 [facility] [address] [place] [phone] Apolinar Wayne, [address] [place] [address] 03/05/2024 3:45 PM EST Pharmacy Pharmacy Hematology Oncology [facility] [address] [place] [address] [facility], [facility] Hem/Onc [address] [place] [address] 03/15/2024 9:15 AM EST Office Visit Hematology/Oncology [facility] [address] [place] [address] Fernando Solo MD [address] [place] [address] 03/27/2024 1:40 PM EST Office Visit Family Practice 65 [facility] [address] [place] [phone] Apolinar Wayne DO [address] [place] [address] Scheduled Procedures Name Priority Associated Diagnoses Date/Ti [...] this encounter Medical Devices Implanted Type Area Rn Case Mgr Device Identifier Shelf Expiration Date Model / Serial / Lot Graft Lyoplant 5.0x5.0cm 2x2 - [id number] Implanted:Qty : 1 on 06/24/2020 by Madi Kaur MD at OR [facility] Right: Head B ALICEA : AESCULAP 11/18/2024 [id number] / / [id number] Graft Lyoplant 5.0x5.0cm 2x2 - [id number] Implanted:Qty : 1 on 06/24/2020 by Madi Kaur MD at OR [facility] B ALICEA : AESCULAP [id number] 11/18/2024 [id number] / [id number] / [id number] Graft Lyoplant 5.0x5.0cm 2x2 - [id number] Implanted:Qty : 1 on 06/24/2020 by Madi Kaur MD at OR [facility] Right: Head B ALICEA : AESCULAP 06/24/2020 [id number] / / [id number] Graft Lyoplant 5.0x5.0cm 2x2 - [id number] Implanted:Qty : 1 on 06/24/2020 by Madi Kaur MD at OR [facility] B ALICEA : AESCULAP [id number] 11/18/2024 [id number] / [id number] / [id number] Plate Ti Lo Pro Str 2h 421.502 - [id number] Implanted:Qty : 2 on 06/24/2020 by Madi Kaur MD at OR [facility] Right: Head SYNTHES MAXILLOFACIAL 421.502 / / Plate Bx Ti [id number] 4h 421.521 - [id number] Implanted:Qty : 1 on 06/24/2020 by Madi Kaur MD at OR [facility] Right: Head SYNTHES MAXILLOFACIAL 421.521 / / Screw Ti Lo Pro Sd 4mm 400.834 - [id number] Implanted:Qty : 7 on 06/24/2020 by Madi Kaur MD at OR [facility] Right: Head SYNTHES MAXILLOFACIAL 400.834 / / [...] Agents on File Name Relationship Healthcare Agent [facility] Communication Aimee Lam Spouse Health Care Agent Care Teams Commissioned Security Officer Relationship Specialty Start Date End Date Apolinar Wayne DO [address] [place] [address] PCP - General Internal Medicine 11/15/23 documented as of this encounter
--- OUTSIDE RECORDS SUMMARY | 2024-03-04 07:00 | External Medical Summary | Summary of Care ---
Author Name Unknown Organization [facility] Address [address] [place] [address] Phone [phone] Care Team Providers Care Petroleum Geology Faculty Member Name Role Phone Apolinar Wayne DO Primary Care Provider [phone] Reason for Visit * Reason Onset Date Comments Advice 02/29/2024 Encounter Details Date Type Department Care Team (Late st Contact Info) Description 02/29/2024 Telephone Care Coordination and Integration [address] [place], [place] [id number] Rain Yañez, HECTOR [address] [place], [place] [phone] Advice Allergies Active Allergy Reactions Criticality Noted [...] by mouth every afternoon. (get from the [place]) 04/15/19 Active Vitamin D3 25 MCG (1000 [...] by mouth in the morning. (From the [place]). 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 Simental's office called back; patient does not have follow up with Dr. Simental scheduled at this time. And that Dr. Simental also advised patient to got to ER. Told her patient was en route to ER at [facility] and that I told the patient to have images/report sent to his office as well as PCP. Minda's direct #: [phone]. * Telephone Encounter - Apolinar Wayne DO - 02/29/2024 2:46 PM EST Port called to [facility] ED * Telephone Encounter - Jefferson Alvarado RN - 02/29/2024 2:[address] Vinay cochran, patient going to [facility] ER, will follow up on status tomorrow and imaging/labs. * Telephone Encounter - Rain Yañez RN - 02/29/2024 2:29 PM EST notified. They will be going to [facility] ER to follow up on symptoms. [...] RE: patient myG message from 02/28: "Dr. Patel. Hunt and I have been contacted by Dr. 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 I have sent Dr. Wayne a request.to order this scan. I realize having chosen [facility] in [place] has caused some confusion as to who [...] unsure of what scan the doctors at [facility] want. The [facility] doctors werejust made aware of patient's c/o headache and peripheral vision loss yesterday (02/28/24). Per , son said this has been happening since he was in ICU-- and was told "nothing to worry about." Per , [facility] doctors wants MRI ordered, and monthly there [...] from bottom of right ear up to religion. States incision is clean, dry& intact. Denies [...] PM EST Office Visit Family Practice 65 [facility] [address] [place] [phone] Apolinar Wayne, [address] [place] [address] 03/05/2024 3:45 PM EST Pharmacy Pharmacy Hematology Oncology [facility] [address] [place] [address] [facility], [facility] Hem/Onc [address] [place] [address] 03/15/2024 9:15 AM EST Office Visit Hematology/Oncology [facility] [place] [address] [facility] [place] [phone] Fernando Solo MD 200 [facility] [place] [address] 03/27/2024 1:40 PM EST Office Visit Family [facility] [address] [facility] [address] [facility] [place] [phone] Apolinar Wayne, 293 [place] [address] Scheduled Procedures Name Priority Associated Diagnoses Date/Ti [...] this encounter Medical Devices Implanted Type Area Plywood Factory Worker Device Identifier Shelf Expiration Date Model / Serial / Lot Graft Lyoplant 5.0x5.0cm 2x2 - [id number] Implanted:Qty : 1 on 06/24/2020 by Madi Kaur MD at OR [facility] Right: Head B ALICEA : AESCULAP 11/18/2024 [id number] / / [id number] Graft Lyoplant 5.0x5.0cm 2x2 - [id number] Implanted:Qty : 1 on 06/24/2020 by Madi Kaur MD at OR [facility] B ALICEA : AESCULAP [id number] 11/18/2024 [id number] / [id number] / [id number] Graft Lyoplant 5.0x5.0cm 2x2 - [id number] Implanted:Qty : 1 on 06/24/2020 by Madi Kaur MD at OR [facility] Right: Head B ALCIEA : AESCULAP 06/24/2020 [id number] / / [id number] Graft Lyoplant 5.0x5.0cm 2x2 - [id number] Implanted:Qty : 1 on 06/24/2020 by Madi Kaur MD at OR [facility] B ALICEA : AESCULAP [id number] 11/18/2024 [id number] / [id number] / [id number] Plate Ti Lo Pro Str 2h 421.502 - [id number] Implanted:Qty : 2 on 06/24/2020 by Madi Kaur MD at OR [facility] Right: Head SYNTHES MAXILLOFACIAL 421.502 / / Plate Bx Ti [id number] 4h 421.521 - [id number] Implanted:Qty : 1 on 06/24/2020 by Madi Kaur MD at OR [facility] Right: Head SYNTHES MAXILLOFACIAL 421.521 / / Screw Ti Lo Pro Sd 4mm 400.834 - [id number] Implanted:Qty : 7 on 06/24/2020 by Madi Kaur MD at [facility] Right: Head SYNTHES MAXILLOFACIAL 400.834 / / [...] Agents on File Name Relationship Healthcare Agent [facility] Communication Aimee Lam Spouse Health Care Agent Care Teams Petroleum Geology Faculty Member Relationship Specialty Start Date End Date Apolinar Wayne DO [address] [place] [address] PCP - General Internal Medicine 11/15/23 documented as of this encounter
--- OUTSIDE RECORDS SUMMARY | 2024-03-04 07:00 | External Medical Summary | Summary of Care ---
Author Name Unknown Organization [facility] Address [address] [place] [address] Phone [phone] Care Team Providers Care Assistant Community Manager Name Role Phone Apolinar Wayne DO Primary Care Provider [phone] Encounter Details Date Type Department Care Team (Late st Contact Info) Description 02/29/2024 Telephone Pharmacy Hematology Oncology [facility] [place] [address] [place] [address] Tiffanie Disla, [facility] [address] [place] [facility] [place] [address] Allergies Active Allergy Reactions Criticality Noted [...] by mouth every afternoon. (get from the [place]) 04/15/19 Active Vitamin D3 25 MCG (1000 [...] by mouth in the morning. (From the [place]). 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 I see prior to patient's surgery he was working with [facility] for assistance and was also willing to payout of pocket for first fill. Can we please re-visit assistance so we have in place prior to needing to start? Please have him apply to [employer] search engine optimizer assistance. Thanks! Tiffanie Disla, PharmD Ambulatory Clinical Pharmacist | Oral Chemotherapy Clinic [facility] 02/29/2024, 10:23 AM documented in this encounter Plan of Treatment Upcoming Encounters Date Type Department Care Team (Late st Contact Info) Description 03/02/2024 3:00 PM EST Office Visit Family Practice [address] [place] [address] [address] [place] [address] Apolinar Wayne, [address] [place] [address] 03/05/2024 3:45 PM EST Pharmacy Pharmacy Hematology Oncology [place] [address] [place] [address] [facility], [facility] Hem/Onc [facility] [place] [address] 03/15/2024 9:15 AM EST Office Visit Hematology[facility]Oncology [facility] [address] [facility] [place] [address] Fernando Solo MD 200 [place] [address] 03/27/2024 1:40 PM EST Office Visit Family [address] [place] [address] Apolinar Wayne, 293 [place] [address] Scheduled Procedures Name Priority Associated Diagnoses Date/Ti [...] this encounter Medical Devices Implanted Type Area Nursing Informatics Clinical Analyst Device Identifier Shelf Expiration Date Model / Serial / Lot Graft Lyoplant 5.0x5.0cm 2x2 - [id number] Implanted:Qty : 1 on 06/24/2020 by Madi Kaur MD at OR [facility] Right: Head B ALICEA : AESCULAP 11/18/2024 [id number] / / [id number] Graft Lyoplant 5.0x5.0cm 2x2 - [id number] Implanted:Qty : 1 on 06/24/2020 by Madi Kaur MD at OR [facility] B ALICEA : AESCULAP [id number] 11/18/2024 [id number] / [id number] / [id number] Graft Lyoplant 5.0x5.0cm 2x2 - [id number] Implanted:Qty : 1 on 06/24/2020 by Madi Kaur MD at OR [facility] Right: Head B ALICEA : AESCULAP 06/24/2020 [id number] / / [id number] Graft Lyoplant 5.0x5.0cm 2x2 - [id number] Implanted:Qty : 1 on 06/24/2020 by Madi Kaur MD at OR [facility] B ALICEA : AESCULAP [id number] 11/18/2024 [id number] / [id number] / [id number] Plate Ti Lo Pro Str 2h 421.502 - [id number] Implanted:Qty : 2 on 06/24/2020 by Madi Kaur MD at OR [facility] Right: Head SYNTHES MAXILLOFACIAL 421.502 / / Plate Bx Ti [id number] 4h 421.521 - [id number] Implanted:Qty : 1 on 06/24/2020 by Madi Kaur MD at OR [facility] Right: Head SYNTHES MAXILLOFACIAL 421.521 / / Screw Ti Lo Pro Sd 4mm 400.834 - [id number] Implanted:Qty : 7 on 06/24/2020 by Madi Kaur MD at OR [facility] Right: Head SYNTHES MAXILLOFACIAL 400.834 / / [...] Agents on File Name Relationship Healthcare Agent [facility] p Communication Aimee Lam Spouse Health Care Agent Care Teams Assistant Community Manager Relationship Specialty Start Date End Date Apolinar Wanye DO [address] [place] [address] PCP - General Internal Medicine 11/15/23 documented as of this encounter"
--- OUTSIDE RECORDS SUMMARY | 2024-03-04 07:01 | External Medical Summary | Summary of Care ---
Author Name Unknown Organization [facility] Address [address] [place] [address] Phone [phone] Care Team Providers Care Auto Appraiser Name Role Phone Apolinar Wayne DO Primary Care Provider [phone] Reason for Visit * Reason Onset Date Comments Advice 02/29/2024 Encounter Details Date Type Department Care Team (Late st Contact Info) Description 02/29/2024 Telephone Care Coordination and Integration [address] [place], [place] [phone] Rain Yañez, HECTOR [address] [place], [place] [phone] Advice Allergies Active Allergy Reactions Criticality Noted [...] by mouth every afternoon. (get from the [place]) 04/15/19 Active Vitamin D3 25 MCG (1000 [...] by mouth in the morning. (From the [place]). 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 They will be going to [facility] ER to follow up on symptoms. She [...] been contacted by Dr. 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 I have sent Dr. Wayne a request.to order this scan. I realize having chosen [facility] in [place] has caused some confusion as to who [...] unsure of what scan the doctors at [facility] want. The [facility] doctors werejust made aware of patient's c/o headache and peripheral vision loss yesterday (02/28/24). Per , son said this has been happening since he was in ICU-- and was told "nothing to worry about." Per , [facility] doctors wants MRI ordered, and [...] from bottom of right ear up to alevism. States incision is clean, dry& intact. Denies [...] 3:30 PM EST Pharmacy Pharmacy Hematology Oncology [facility] [address] [place] [address] [facility], [facility] Hem/Onc [address] [place] [address] Glioblastoma (HCC)* 03/02/2024 3:00 PM EST Office Visit Family Practice 65 [facility] [place] [address] [place] [address] Apolinar Wayne, [address] [place] [address] 03/05/2024 3:45 PM EST Pharmacy Pharmacy Hematology Oncology [facility] [address] [place] [address] [facility], [facility] Hem[facility]Onc [address] [place] [address] 03/15/2024 9:15 AM EST Office Visit Hematology/Oncology [facility] [address] [place] [address] Fernando Solo MD [address] [place] [address] 03/27/2024 1:40 PM EST Office Visit Family Practice 65 [facility] [address] [place] [address] Apolinar Wayne DO [address] [place] [address] Scheduled Procedures Name Priority Associated Diagnoses Date/Ti [...] this encounter Medical Devices Implanted Type Area Guide Excursion Device Identifier Shelf Expiration Date Model / Serial / Lot Graft Lyoplant 5.0x5.0cm 2x2 - [id number] Implanted:Qty : 1 on 06/24/2020 by Madi Kaur MD at OR [facility] Right: Head B ALICEA : AESCULAP 11/18/2024 [id number] / / [id number] Graft Lyoplant 5.0x5.0cm 2x2 - [id number] Implanted:Qty : 1 on 06/24/2020 by Madi Kaur MD at OR [facility] B ALICEA : AESCULAP [id number] 11/18/2024 [id number] / [id number] / [id number] Graft Lyoplant 5.0x5.0cm 2x2 - [id number] Implanted:Qty : 1 on 06/24/2020 by Madi Kaur MD at OR [facility] Right: Head B [employer]ICEA : AESCULAP 06/24/2020 [id number] / / [id number] Graft Lyoplant 5.0x5.0cm 2x2 - [id number] Implanted:Qty : 1 on 06/24/2020 by Madi Kaur MD at OR [facility] B ALICEA : AESCULAP [id number] 11/18/2024 [id number] / [id number] / [id number] Plate Ti Lo Pro Str 2h 421.502 - [id number] Implanted:Qty : 2 on 06/24/2020 by Madi Kaur MD at OR [facility] Right: Head SYNTHES MAXILLOFACIAL 421.502 / / Plate Bx Ti [id number] 4h 421.521 - [id number] Implanted:Qty : 1 on 06/24/2020 by Madi Kaur MD at OR [facility] Right: Head SYNTHES MAXILLOFACIAL 421.521 / / Screw Ti Lo Pro Sd 4mm 400.834 - [id number] Implanted:Qty : 7 on 06/24/2020 by Madi Kaur MD at OR [facility] Right: Head SYNTHES MAXILLOFACIAL 400.834 [...] Lam Spouse Health Care Agent Care Teams Auto Appraiser Relationship Specialty Start Date End Date Apolinar Wayne DO [address] [place] [address] PCP - General Internal Medicine 11/15/23 documented as of this encounter
--- OUTSIDE RECORDS SUMMARY | 2024-03-04 07:01 | External Medical Summary | Summary of Care ---
Author Name Unknown Organization [facility] Address [address] [place] [address] Phone [phone] Care Team Providers Care Physicist Cryogenics Name Role Phone Apolinar Wayne DO Primary Care Provider Reason for Visit * Reason Onset Date Comments Advice 02/29/2024 Encounter Details Date Type Department Care Team (Late st Contact Info) Description 02/29/2024 Telephone Care Coordination and Integration [address] [place], [place] [phone] Rain Yañez, HECTOR [address] [place], [place] [phone] Advice Allergies Active Allergy Reactions Criticality Noted [...] by mouth every afternoon. (get from the [place]) 04/15/19 Active Vitamin D3 25 MCG (1000 UT) Oral CapsuleIndication s:general health Take 1 Capsule by mouth. Active Centrum Adults Oral TabletIndications :general health Take 1 Tablet by mouth. Active FreeStyle Aarit 2 SensorIndications :Type 2 diabetes mellitus with [...] by mouth in the morning. (From the [place]). 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 Vinay cochran, patient going to [facility] ER, will follow up on status tomorrow and imaging/labs. * Telephone Encounter - Rain Yañez RN - 02/29/2024 2:29 PM EST notified. They will be going to [facility] ER to follow up on symptoms. [...] been contacted by Dr. 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 I have sent Dr. Wayne a request.to order this scan. I realize having chosen [facility] in [place] has caused some confusion as to who [...] from bottom of right ear up to scientology. States incision is clean, dry& intact. Denies [...] 3:30 PM EST Pharmacy Pharmacy Hematology Oncology [facility] [address] [place] [address] [facility] [facility] Hem/Onc [address] [place] [address] Glioblastoma (HCC)* 03/02/2024 3:00 PM EST Office Visit Family Practice [address] [place] [address] [address] [place] [address] Apolinar Wayne, 293 [place] [address] 03/05/2024 3:45 PM EST Pharmacy Pharmacy Hematology Oncology [facility] [address] [place] [address] [facility] [address] [place] [address] 03/15/2024 9:15 AM EST Office Visit Hematology/Oncology [facility] [address] [facility] [place] [phone] Fernando Solo MD [address] [facility] [place] [address] 03/27/2024 1:40 PM EST Office Visit Family Practice [address] [place] [address] [address] [place] [address] Apolinar Wayne, 293 [place] [address] Scheduled Procedures Name Priority Associated Diagnoses Date/Ti la COLONOSCOPY FLEXIBLE PROXIMAL DIAGNOSTIC Recall History of [...] this encounter Medical Devices Implanted Type Area Oracle Webcenter Consultant Device Identifier Shelf Expiration Date Model / Serial / Lot Graft Lyoplant 5.0x5.0cm 2x2 - [id number] Implanted:Qty : 1 on 06/24/2020 by Madi Kaur MD at [place] [facility] Right: Head B ALICEA : AESCULAP 11/18/2024 [id number] / / [id number] Graft Lyoplant 5.0x5.0cm 2x2 - [id number] Implanted:Qty : 1 on 06/24/2020 by Madi Kaur MD at OR [facility] B ALICEA : AESCULAP [id number] 11/18/2024 [id number] / [id number] / [id number] Graft Lyoplant 5.0x5.0cm 2x2 - [id number] Implanted:Qty : 1 on 06/24/2020 by Madi Kaur MD at OR [facility] Right: Head B ALICEA : AESCULAP 06/24/2020 [id number] / / [id number] Graft Lyoplant 5.0x5.0cm 2x2 - [id number] Implanted:Qty : 1 on 06/24/2020 by Madi Kaur MD at OR [facility] B ALICEA : AESCULAP [id number] 11/18/2024 [id number] / [id number] / [id number] Plate Ti Lo Pro Str 2h 421.502 - [id number] Implanted:Qty : 2 on 06/24/2020 by Madi Kaur MD at OR [facility] Right: Head SYNTHES MAXILLOFACIAL 421.502 / / Plate Bx Ti [id number] 4h 421.521 - [id number] Implanted:Qty : 1 on 06/24/2020 by Madi Kaur MD at OR [facility] Right: Head SYNTHES MAXILLOFACIAL 421.521 / / Screw Ti Lo Pro Sd 4mm 400.834 - [id number] Implanted:Qty : 7 on 06/24/2020 by Madi Kaur MD at OR [facility] Right: Head SYNTHES MAXILLOFACIAL 400.834 / / [...] Agents on File Name Relationship Healthcare Agent [facility] Communication Aimee Lam Spouse Health Care Agent Care Teams Physicist Cryogenics Relationship Specialty Start Date End Date Apolinar Wayne DO [address] [place] [address] PCP - General Internal Medicine 11/15/23 documented as of this encounter
--- OUTSIDE RECORDS SUMMARY | 2024-03-04 07:01 | External Medical Summary | Summary of Care ---
Author Name Unknown Organization [facility] Address [address] [place] [address] Phone [phone] Care Team Providers Care Glass Ribbon Machine Operator Name Role Phone Apolinar Wayne DO Primary Care Provider [phone] Reason for Visit * Reason Onset Date Comments Advice 02/29/2024 Encounter Details Date Type Department Care Team (Late st Contact Info) Description 02/29/2024 Telephone Care Coordination and Integration [address], [place] [phone] Rain Yañez, HECTOR [address], [place] [phone] Advice Allergies Active Allergy Reactions Criticality Noted [...] by mouth every afternoon. (get from the [place]) 04/15/19 Active Vitamin D3 25 MCG (1000 [...] by mouth in the morning. (From the [place]). 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 * Telephone Encounter - Rain Yañezth, RN - 02/29/2024 2:08 PM EST RE: patient myG message from 02/28: "Dr. Solo. Gilbert and I have been contacted by Dr. 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 I have sent Dr. Wayne a request.to order this scan. I realize having chosen [facility] in [place] has caused some confusion as to who [...] unsure of what scan the doctors at [facility] want. The [facility] doctors werejust made aware of patient's c/o headache and peripheral vision loss yesterday (02/28/24). Per , son said this has been happening since he was in ICU-- and was told "nothing to worry about." Per , [facility] doctors wants MRI ordered, and monthly there [...] from bottom of right ear up to zoroastrianism. States incision is clean, dry& intact. Denies [...] 3:30 PM EST Pharmacy Pharmacy Hematology Oncology [facility], [address] [address] [facility], [facility] Hem/Onc [address] [place] [address] Glioblastoma (HCC)* 03/02/2024 3:00 PM EST Office Visit Family Practice [address] [place] [address] [address] [place] [address] Apolinar Wayne, 293 [place] [address] 03/05/2024 3:45 PM EST Pharmacy Pharmacy Hematology Oncology [address] [address] [facility], [facility] Hem/Onc [address] [place] [address] 03/15/2024 9:15 AM EST Office Visit Hematology/Oncology [facility] 200 [place] [address] Fernando Solo MD [address] [place] [facility] [place] [address] 03/27/2024 1:40 PM EST Office Visit Family Practice [address], [place] 293 [place] [phone] Apolinar Wayne, 293 [facility] [place] [address] Scheduled Procedures Name Priority Associated Diagnoses Date/Ti [...] this encounter Medical Devices Implanted Type Area Web User Experience Strategist Device Identifier Shelf Expiration Date Model / Serial / Lot Graft Lyoplant 5.0x5.0cm 2x2 - [id number] Implanted:Qty : 1 on 06/24/2020 by Madi Kaur MD at [place] [facility] [place] Right: Head B ALICEA : AESCULAP 11/18/2024 [id number] / / [id number] Graft Lyoplant 5.0x5.0cm 2x2 - [id number] Implanted:Qty : 1 on 06/24/2020 by Madi Kaur MD at OR [facility] [place] B ALICEA : AESCULAP [id number] 11/18/2024 [id number] / [id number] / [id number] Graft Lyoplant 5.0x5.0cm 2x2 - [id number] Implanted:Qty : 1 on 06/24/2020 by Mdai Kaur MD at OR [facility] [place] Right: Head B ALICEA : AESCULAP 06/24/2020 [id number] / / [id number] Graft Lyoplant 5.0x5.0cm 2x2 - [id number] Implanted:Qty : 1 on 06/24/2020 by Madi Kaur MD at OR [facility] [place] B ALICEA : AESCULAP [id number] 11/18/2024 [id number] / [id number] / [id number] Plate Ti Lo Pro Str 2h 421.502 - [id number] Implanted:Qty : 2 on 06/24/2020 by Madi Kaur MD at OR [facility] [place] Right: Head SYNTHES MAXILLOFACIAL 421.502 / / Plate Bx Ti [id number] 4h 421.521 - [id number] Implanted:Qty : 1 on 06/24/2020 by Madi Kaur MD at OR [facility] [place] Right: Head SYNTHES MAXILLOFACIAL 421.521 / / Screw Ti Lo Pro Sd 4mm 400.834 - [id number] Implanted:Qty : 7 on 06/24/2020 by Madi Kaur MD at OR [facility] [place] Right: Head SYNTHES MAXILLOFACIAL 400.834 / / [...] Agents on File Name Relationship Healthcare Agent [facility] Communication Aimee Lam Spouse Health Care Agent Care Teams Glass Ribbon Machine Operator Relationship Specialty Start Date End Date Apolinar Wayne DO [address] [place] [place] [address] PCP - General Internal Medicine 11/15/23 documented as of this encounter
--- OUTSIDE RECORDS SUMMARY | 2024-03-04 07:01 | External Medical Summary | Summary of Care ---
Author Name Unknown Organization [facility] Address [address] [place] [address] Phone [phone] Care Team Providers Care Senior It Architect Name Role Phone Apolinar Wayne DO Primary Care Provider [phone] Reason for Visit * Reason Onset Date Comments Advice 02/29/2024 Encounter Details Date Type Department Care Team (Late st Contact Info) Description 02/29/2024 Telephone Care Coordination and Integration [address] [place], [place] [phone] Rain Yañez, HECTOR [address] [place], [place] [phone] Advice Allergies Active Allergy Reactions Criticality Noted [...] with nephropathy 06/27/2018 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 06/27/2018 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 I have sent Dr. Wayne a request.to order this scan. I realize having chosen [facility] in [place] has caused some confusion as to who [...] from bottom of right ear up to baptist. States incision is clean, dry& intact. Denies [...] 3:30 PM EST Pharmacy Pharmacy Hematology Oncology [facility], [address] [address] [facility] Hem/Onc [address] [place] [address] Glioblastoma (HCC)* 03/02/2024 3:00 PM EST Office Visit Family Practice [address] [place] [address] [address] [place] [address] Apolinar Wayne, [address] [place] [address] 03/05/2024 3:45 PM EST Pharmacy Pharmacy Hematology Oncology [address] [address] [facility], [facility] Hem/Onc [address] [place] [address] 03/15/2024 9:15 AM EST Office Visit Hematology/Oncology [facility] 200 [place] [phone] Fernando Solo MD [address] [facility] [place] [address] 03/27/2024 1:40 PM EST Office Visit Family Practice [address], [place] 293 [facility] [place] [phone] Apolinar Wayne, 293 [place] [address] Scheduled Procedures Name Priority Associated Diagnoses Date/Ti [...] this encounter Medical Devices Implanted Type Area Grief Counselor Device Identifier Shelf Expiration Date Model / Serial / Lot Graft Lyoplant 5.0x5.0cm 2x2 - [id number] Implanted:Qty : 1 on 06/24/2020 by Madi Kaur MD at [place] [facility] [place] Right: Head B ALICEA : AESCULAP 11/18/2024 [id number] / / [id number] Graft Lyoplant 5.0x5.0cm 2x2 - [id number] Implanted:Qty : 1 on 06/24/2020 by Madi Kaur MD at OR [facility] [place] B ALICEA : AESCULAP [id number] 11/18/2024 [id number] / [id number] / [id number] Graft Lyoplant 5.0x5.0cm 2x2 - [id number] Implanted:Qty : 1 on 06/24/2020 by Madi Kaur MD at OR [facility] [place] Right: Head B ALICEA : AESCULAP 06/24/2020 [id number] / / [id number] Graft Lyoplant 5.0x5.0cm 2x2 - [id number] Implanted:Qty : 1 on 06/24/2020 by Madi Kaur MD at OR [facility] [place] [facility] B ALICEA : AESCULAP [id number] 11/18/2024 [id number] / [id number] / [id number] Plate Ti Lo Pro Str 2h 421.502 - [id number] Implanted:Qty : 2 on 06/24/2020 by Madi Kaur MD at OR [facility] [place] Right: Head SYNTHES MAXILLOFACIAL 421.502 / / Plate Bx Ti [id number] 4h 421.521 - [id number] Implanted:Qty : 1 on 06/24/2020 by Madi Kaur MD at OR [facility] [place] [facility] Right: Head SYNTHES MAXILLOFACIAL 421.521 / / Screw Ti Lo Pro Sd 4mm 400.834 - [id number] Implanted:Qty : 7 on 06/24/2020 by Madi Kaur MD at OR [facility] [place] Right: Head SYNTHES MAXILLOFACIAL 400.834 / / [...] Agents on File Name Relationship [facility] Aimee Lam Spouse Health Care Agent Care Teams Senior It Architect Relationship Specialty Start Date End Date Apolinar Wayne DO [address] [place] [address] PCP - General Internal Medicine 11/15/23 documented as of this encounter
--- OUTSIDE RECORDS SUMMARY | 2024-03-04 07:01 | External Medical Summary | Summary of Care ---
Author Name Unknown Organization [facility] Address [address] [place] [address] Phone [phone] Care Team Providers Care Manager Analysis Name Role Phone Apolinar Wayne DO Primary Care Provider [phone] Reason for Visit * Reason Onset Date Comments Advice 02/29/2024 Encounter Details Date Type Department Care Team (Late st Contact Info) Description 02/29/2024 Telephone Care Coordination and Integration [address] [place], [place] [phone] Rain Yañez, HECTOR [address] [place], [place] [phone] Advice Allergies Active Allergy Reactions Criticality Noted [...] by mouth every afternoon. (get from the [place]) 04/15/19 Active Vitamin D3 25 MCG (1000 [...] by mouth in the morning. (From the [place]). 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 I have sent Dr. Wayne a request.to order this scan. I realize having chosen [facility] in [place] has caused some confusion as to who [...] unsure of what scan the doctors at [facility] want. The [facility] doctors werejust made aware of patient's c/o headache and peripheral vision loss yesterday (02/28/24). Per , son said this has been happening since he was in ICU-- and was told "nothing to worry about." Per , [facility] doctors wants MRI ordered, and monthly [...] from bottom of right ear up to mormonism. States incision is clean, dry& intact. Denies [...] 3:30 PM EST Pharmacy Pharmacy Hematology Oncology [facility], [address] [address] [facility], [facility] Hem/Onc [address] [place] [address] Glioblastoma (HCC)* 03/02/2024 3:00 PM EST Office Visit Family Practice [address] [place] [address] 293 [place] [address] Apolinar Wayne, [address] [place] [address] 03/05/2024 3:45 PM EST Pharmacy Pharmacy Hematology Oncology [address] [address] [facility], [facility] Hem/Onc [address] [place] [address] 03/15/2024 9:15 AM EST Office Visit Hematology/Oncology [facility] 200 [place] [phone] Fernando Solo MD [address] [place] [facility] [place] [address] 03/27/2024 1:40 PM EST Office Visit Family Practice [address], [place] 293 [facility] [phone] Apolinar Wayne, 293 [facility] [place] [address] Scheduled Procedures Name Priority Associated Diagnoses Date/Ti [...] this encounter Medical Devices Implanted Type Area Senior Writer Device Identifier Shelf Expiration Date Model / Serial / Lot Graft Lyoplant 5.0x5.0cm 2x2 - [id number] Implanted:Qty : 1 on 06/24/2020 by Madi Kaur MD [place] [facility] [place] Head B ALICEA : AESCULAP 11/18/2024 [id number] / / [id number] Graft Lyoplant 5.0x5.0cm 2x2 - [id number] Implanted:Qty : 1 on 06/24/2020 by Madi Kaur MD at [place] [facility] [place] B ALICEA : AESCULAP [id number] 11/18/2024 [id number] / [id number] / [id number] Graft Lyoplant 5.0x5.0cm 2x2 - [id number] Implanted:Qty : 1 on 06/24/2020 by Madi Kaur MD at [place] [facility] [place] Right: Head B ALICEA : AESCULAP 06/24/2020 [id number] / / [id number] Graft Lyoplant 5.0x5.0cm 2x2 - [id number] Implanted:Qty : 1 on 06/24/2020 by Madi Kaur MD at [place] [facility] [place] B ALICEA : AESCULAP [id number] 11/18/2024 [id number] / [id number] / [id number] Plate Ti Lo Pro Str 2h 421.502 - [id number] Implanted:Qty : 2 on 06/24/2020 by Madi Kaur MD at [place] [facility] [place] Right: Head SYNTHES MAXILLOFACIAL 421.502 / / Plate Bx Ti [id number] 4h 421.521 - [id number] Implanted:Qty : 1 on 06/24/2020 by Madi Kaur MD at [place] [facility] [place] Right: Head SYNTHES MAXILLOFACIAL 421.521 / / Screw Ti Lo Pro Sd 4mm 400.834 - [id number] Implanted:Qty : 7 on 06/24/2020 by Madi [...] Agents on File Name [facility] Healthcare [facility] Aimee Lam Spouse Health Care Agent Care Teams Manager Analysis Relationship Specialty Start Date End Date Apolinar Wayne DO [address] [facility] [place] [address] PCP - General Internal Medicine 11/15/23 documented as of this encounter
--- OUTSIDE RECORDS SUMMARY | 2024-03-04 07:02 | External Medical Summary | Summary of Care ---
Author Name Unknown Organization [facility] Address [address] [place] [address] Phone [phone] Care Team Providers Care Herbologist Name Role Phone Apolinar Wayne DO Primary Care Provider Reason for Visit * Reason Onset Date Comments FYI 02/28/2024 Edil Encounter Details Date Type Department Care Team (Late st Contact Info) Description 02/28/2024 Telephone Hematology/Oncology [facility] [place] [address] [facility] [place] [phone] Fernando Metz MD [address] [facility] [place] [address] FYI (Edil ) Allergies Active Allergy Reactions [...] by mouth every afternoon. (get from the OR) 04/15/19 Active Vitamin D3 25 MCG (1000 [...] by mouth in the morning. (From the OR). 90 Tablet 3 05/05/19 24 Active Carvedilol [...] 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 06/27/2018 halfway (current) use of insulin 10/27/2017 History of [...] mRNA, LNP-s, No Pre serve, 2-Dose Series ([employer]) 03/10/2021,06/07/2020,05/17/2020 COVID-19, LNP-s, No Preserve , Chandler-sucrose, Ages 12+ ([employer]) 11/17/2021 COVID-19, MRNA-LNP, PF, 30 M CG/0.3 [...] he has been having She stated that [facility] is aware and they said to contact [...] they should do a " scan per [facility] before they are seen on the " * Telephone Encounter - Amber Noe OSA - 02/29/2024 9:45 AM EST Faxed another request Will call 1. Dr. Richards, Surgeon Alexandra, his nurse [phone] Attempted to call as I called the reg [facility] number and no one had info on this pt [facility] [place] [address] phone: [phone] Called them They said Refaxed to their [...] I know youpreviously had requested reports from [facility], I don't see records uploaded as of today. [facility] to see if we can [...] We have to get path records from [facility] * Telephone Encounter - Jefferson Alvarado, RN - 02/28/2024 3:[address] Metz- STEPHANIE * Telephone Encounter - Milena Whitfield OSA - 02/28/2024 2:17 PM EST Minda from [facility] calling regarding patient dr. Mclain asking to touch base with dr metz, please call dr mclain back at [phone] documented in this encounter Plan of Treatment Upcoming Encounters Date Type Department Care Team (Late st Contact Info) Description 02/29/2024 3:30 PM EST Pharmacy Pharmacy Hematology Oncology [facility] [address] [place] [address] [facility], [facility] Hem/Onc [address] [place] [address] Glioblastoma (HCC)* 03/02/2024 3:00 PM EST Office Visit Family Practice [address] [facility], [place] [address] [place] [phone] Apolinar Wayne, [address] [place] [address] 03/05/2024 3:45 PM EST Pharmacy Pharmacy Hematology Oncology [facility] [address] [place] [address] [facility], [facility] Hem/Onc [address] [place] [address] 03/15/2024 9:15 AM EST Office [facility] [address] [facility] [place] [phone] Fernando Metz MD [address] [facility] [place] [place] [address] 03/27/2024 1:40 PM EST Office Visit Family Practice [address] [facility], [place] [address] [place] [phone] Apolinar Wayne DO [address] [place] [address] Scheduled Procedures Name Priority Associated Diagnoses Date/Ti [...] this encounter Medical Devices Implanted Type Area Dielectric Machine Operator Device Identifier Shelf Expiration Date Model / Serial / Lot Graft Lyoplant 5.0x5.0cm 2x2 - [id number] Implanted:Qty : 1 on 06/24/2020 by Madi Kaur MD at [facility] Right: Head B ALICEA : ARIAN 11/18/2024 [id number] / / [id number] Graft Lyoplant 5.0x5.0cm 2x2 - [id number] Implanted:Qty : 1 on 06/24/2020 by Madi Kaur MD at [facility] Lara ALICEA : AUTUMNCULACleo [id number] 11/18/2024 [id number] / [id number] / [id number] Graft Lyoplant 5.0x5.0cm 2x2 - [id number] Implanted:Qty : 1 on 06/24/2020 by Madi Kaur MD at OR [facility] Right: Head B ALICEA : AESCULAP 06/24/2020 [id number] / / [id number] Graft Lyoplant 5.0x5.0cm 2x2 - [id number] Implanted:Qty : 1 on 06/24/2020 by Madi Kaur MD at [facility] B ALICEA : AESCULAP [id number] 11/18/2024 [id number] / [id number] / [id number] Plate Ti Lo Pro Str 2h 421.502 - [id number] Implanted:Qty : 2 on 06/24/2020 by Madi Kaur MD at OR [facility] Right: Head SYNTHES MAXILLOFACIAL 421.502 / / Plate Bx Ti [id number] 4h 421.521 - [id number] Implanted:Qty : 1 on 06/24/2020 by Madi Kaur MD at OR [facility] Right: Head SYNTHES MAXILLOFACIAL 421.521 / / Screw Ti Lo Pro Sd 4mm 400.834 - [id number] Implanted:Qty : 7 on 06/24/2020 by Madi Kaur MD at OR [facility] Right: Head SYNTHES MAXILLOFACIAL 400.834 / / [...] Agents on File Name Relationship Healthcare Agent [facility] Shira Lam Spouse Health Care Agent Care Teams Herbologist Relationship Specialty Start Date End Date Apolinar Wayne DO [address] [place] [place] [address] PCP - General Internal Medicine 11/15/23 documented as of this encounter
[2024-03-04] MEDS ORDERED: LANTUS PER UNIT CHARGE SQ SCH (09:00)
--- NOTE | 2024-03-04 12:52 | Hospitalist Progress Note ---
Date of Service March 04, 2024 Assessment & Plan (1) Orthostatic hypotension: (2) Diabetes mellitus with hypoglycemia, with long-term current use of insulin: (3) Glioblastoma of temporal lobe: (4) H/O craniotomy: Plan: X 2, most recent January 2024 (5) Vision changes: (6) Frequent headaches: Plan Patient presented with fall and weakness at home most likely due to orthostasis and hypoglycemia. Orthostatic vital signs have improved, continue to monitor on current antihypertensive medications Hypoglycemia has improved. Patient prior to his most recent surgery had been on 14 units of Lantus in the morning with breakfast. Will restart 8 units of Lantus tomorrow morning with breakfast and observe patient's response. Reviewed therapy notes, recommending home health Case management for home health Phone conversation with patient's . Updated her to the plan and anticipate discharge tomorrow. She is agreeable. Admission and Anticipated Discharge Date Admission Date: March 02, 2024 Subjective No acute events overnight. Patient denies any chest pain or shortness of breath. No lightheadedness or dizziness with getting up into the chair. Physical Exam Physical Exam: Constitutional: Alert, sitting in chair HEENT: Mucous membranes moist. Lungs: Clear to auscultation, decreased, no wheezes rales or rhonchi CV: S1-S2, regular Abdomen: Soft, nontender, nondistended Extremities: No significant edema Neuro: Some generalized weakness, some impaired cognition from his glioblastoma and surgeries Psych: Cooperative, normal mood Results & Data Results & Data Vital Signs (Past 12 Hours) Vital Signs Temp Pulse Resp BP Pulse Ox O2 Del Method 03/04/24 07:50 36.3 C L 75 18 167/78 H 95 Room Air Diagnostic Findings Glucoses reviewed, no recurrent hypoglycemia
[2024-03-04 14:44] VITALS: RESP 16
[2024-03-04] MEDS: TAMSULOSIN HCL 0.4 MG CAP PO SCH (20:57)
[2024-03-04] MEDS: FINASTERIDE 5 MG TAB PO SCH (20:59)
[2024-03-05 06:06] VITALS: BP 111/70; PULSE 65; TEMP 97.9; O2SAT 95
[2024-03-05] MEDS: LANTUS PER UNIT CHARGE SQ SCH (09:21)
--- NOTE | 2024-03-05 12:01 | Discharge Summary ---
Discharge Summary Date of Service March 05, 2024 Principal Dx & Hospital Course #1 = Principal Diagnosis (1) Orthostatic hypotension: (2) Diabetes mellitus with hypoglycemia, with long-term current use of insulin: (3) Glioblastoma of temporal lobe: (4) H/O craniotomy: X 2, most recent January 2024 (5) Vision changes: (6) Frequent headaches: Plan Patient is a 73-year-old gentleman with known glioblastoma. Had a second resection a couple weeks ago at [facility]. Subsequently he had a rehab stay at [facility] and just recently discharged to home. Presented to the emergency room after he had fallen a couple times and was weak and difficult to care for at home. Patient states he has been having some visual issues ever since his surgery. Also some headaches and dizziness. Evaluation in the emergency room Was negative for acute findings but was referred for further evaluation. Patient was observed in the hospital. He was evaluated by the neurology. His Depakote level was on the lower side and probably not providing him any therapeutic advantage. Neurology recommended discontinuing the Depakote and continuing the Keppra. No other neurological interventions recommended. There is no significant arrhythmias. Subsequent monitoring revealed some some hypotension and he was quite orthostatic upon testing. He was also having some episodes of hypoglycemia. These 2 things certainly can explain his weakness and falling at home. His losartan and amlodipine was discontinued. He was given some additional IV fluid resuscitation. His Jardiance was held as that can cause orthostatic hypotension and his Flomax and Proscar were transition to evening dosing. His Lantus was held and he was given only short acting insulin as needed based on his glucometer reading. With these interventions his blood pressure improved. And his hypoglycemia resolved. In further conversation with his she reported that during his postoperative stay and rehab stay his insulin dose had been significantly increased as well as some additional blood pressure medications were added to his regimen per her report. This certainly makes sense. Patient was also on dexamethasone and this would have caused him to have hyperglycemia and would have triggered an increase in his insulin. However it does not seem as though the insulin dose was decreased after the dexamethasone was discontinued. also reported that the neurosurgeon was considering discontinuing Depakote and continuing him on the Keppra at their next follow-up visit. Patient was started on a lower dose of Lantus. Sugars remained fairly well-controlled and he was certainly not having hypoglycemic events. His blood pressures had improved. His orthostatic vital signs had improved and and his standing systolic blood pressure remained greater than 100. He was asymptomatic with no lightheadedness or dizziness with changes in positions. He was evaluated by physical therapies they felt as though he could return home with home health care. Patient will be discharged with these changes in his medications with an improved blood pressures and glycemic control. He will follow-up with his outpatient providers as scheduled. Notes For Next Care Provider Continue to monitor glucose and make adjustments in diabetes management as needed Monitor blood pressure. As patient continues to recover may need some additional blood pressure medication. Continue with home health care Follow-up with his neurosurgeon/oncologist for his glioblastoma as scheduled Medication Changes From Visit Amlodipine, losartan discontinued Lantus dose decreased Proscar and Flomax changed to evening dosing Depakote discontinued Admission HPI Per Admitting Provider Patient is 73 year old male with PMH glioblastoma s/p surgical resection in 2020, with recurrence glioblastoma and s/p surgery 01/31/24 at 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 Reports prior to surgery using a cane. S/P surgery for glioblastoma on 01/31/24 at [facility]. States was in hospital for 2 weeks and was deconditioned and was transferred to [facility] for 4-5 days and was walking with walker upon discharge. Reports was discharged from [facility] 6 days ago. States after the surgery has lost peripheral vision intermittently and this has continued. Since surgery also reports OROPEZA front of head describes as throbbing pain that is intermittent. States OROPEZA gets better with Tylenol. Denies diplopia. Since being home has fallen twice. This morning fell in bedroom and this afternoon fell in kitchen. States bumped his head. Denies LOC or syncope. Denies any worsening OROPEZA or vision disturbance. Patient states sometimes feels lightheaded and states today felt lightheaded prior to fall. This lightheadedness seems to have started after surgery per patient. He feels he has become progressively weak with bilateral leg weakness over past 5 days. Denies any noted confusion or altered mental status. Reports urinary urgency and sensation of incomplete bladder emptying. Per outpatient note the tentative plan to start lomustine soon. reports no plans for additional radiation. Denies fever/chills, diaphoresis, N/V/D/C, OROPEZA, syncope, neck pain, CP, SOB, palpitat ions, cough, sore throat, otalgia, rhinorrhea, abdominal pain, paresthesias, extremity edema, rashes, dysuria, hematuria. Admission Exam Per Admitting Provider See H&P Discharge Exam Constitutional: Alert, nontoxic HEENT: Mucous membranes moist. Lungs: Clear to auscultation, decreased, no wheezes rales or rhonchi CV: S1-S2, regular Abdomen: Soft, nontender, nondistended Extremities: No significant edema Neuro: At his baseline functioning Psych: Cooperative, normal mood Updated Medication List Medication Instructions Recorded Confirmed Type amlodipine 10 mg tablet 10 mg PO DAILY 06/18/18 03/02/24 History finasteride 5 mg tablet 5 mg PO QAM 06/18/18 03/02/24 History pantoprazole 40 mg tablet,delayed 40 mg PO QAM 06/18/18 03/02/24 History release tamsulosin 0.4 mg capsule 0.4 mg PO DAILY 06/18/18 03/02/24 History multivitamin 1 tab PO DAILY 08/21/19 03/02/24 History rivaroxaban 20 mg tablet (Xarelto) 20 mg PO DAILY 07/10/20 03/02/24 History atorvastatin 40 mg tablet 40 mg PO DAILY 07/31/20 03/02/24 History carvedilol 3.125 mg tablet 3.125 mg PO BID 07/31/20 03/02/24 History diclofenac sodium 1 % topical gel 2 g topical QID PRN Pain 07/31/20 03/02/24 History polyethylene glycol 3350 17 17 g PO DAILY PRN constipation 07/31/20 03/02/24 History gram/dose oral powder (Miralax) clobetasol 0.05 % topical ointment 1 applic topical DAILY PRN Itching 07/10/21 03/02/24 History docusate sodium 50 mg capsule 50 mg PO BID 07/10/21 03/02/24 History ergocalciferol (vitamin D2) 10 mcg 10 mcg PO DAILY 07/10/21 03/02/24 History (400 unit) tablet lorazepam 0.5 mg tablet 0.5 mg buccal TID PRN Anxiety 07/10/21 03/02/24 History ondansetron HCl 8 mg tablet 8 mg PO Q8H PRN Nausea 07/10/21 03/02/24 History sennosides 8.6 mg tablet (Mitali-arnaud) 17.2 mg PO DAILY 07/10/21 03/02/24 History sertraline 100 mg tablet (Zoloft) 100 mg PO DAILY 12/27/23 03/02/24 History clotrimazole 10 mg haroldo 10 mg PO UD 03/02/24 03/02/24 History divalproex 250 mg tablet,delayed 500 mg PO BID 03/02/24 03/02/24 History release empagliflozin 25 mg tablet 25 mg PO DAILY 03/02/24 03/02/24 History (Jardiance) gabapentin 300 mg capsule 300 mg PO TID 03/02/24 03/02/24 History levetiracetam 750 mg tablet 750 mg PO BID 03/02/24 03/02/24 History losartan 100 mg tablet 100 mg PO DAILY 03/02/24 03/02/24 History magnesium oxide 420 mg tablet 420 mg PO DAILY 03/02/24 03/02/24 History insulin glargine 100 unit/mL (3 10 unit (0.1 mL) subcut DAILY #15 03/05/24 Rx mL) subcutaneous pen mL Hospital Stay Data Consultations 03/02/24 18:46 ED Decision to Admit Stat 03/02/24 20:44 Consult Neurology Routine Diagnostic Imagining Performed 03/02/24 17:24 CT cervical spine wo con Stat CT head/brain wo con Stat 03/02/24 20:44 MRI Brain [MR brain wo/w con] Routine Reviewed imaging, laboratory and diagnostic studies. Pertinent findings as below. MRI of the brain showed expected postoperative changes CBC stable Base metabolic profile stable Glucose ranging from 97-216 Ammonia level less than 10 Keppra level pending Valproic acid level 37 Pending Results Patient Have Any Pending Studies at Discharge: No Discharge Instructions Given to Patient (Per Discharging Provider) Follow-up with your neurosurgeon as previously arranged Continue with therapies at home Discuss with your PCP/application integration specialist management of your diabetes in addition to the long-acting insulin Home Health Attestation I certify that this patient is under my care and that I, or a physicians assistant child care teacher working with me, had a face to-face encounter that meets the home health [id number] encounter requirements with this patient. The encounter with the patient was in whole, or in part, for the following medical condition, which is the primary reason for home health care (list medical condition): I certify that, based on my findings, the following services are medically necessary home health services: My clinical findings support the need for the above services because: Further, I certify that my clinical findings support that this patient is homebound (i.e. absences from home require considerable and taxing effort and are for medical reasons or yazdanism services or infrequently or of short duration when for other reasons) because: Certification for Home Health Services: Based on the above findings, I certify that this patient is confined to the home and needs intermittent [facility] care, physical therapy and/or speech therapy or continues to need occupational therapy. The patient is under my care, and I have initiated the establishment of the plan of care. This patient will be followed by a physician who will periodically review the plan of care. Total Time Total Time Spent Total Time Spent (In Minutes): 38
[2024-03-05] MEDS: ACETAMINOPHEN 325 MG TAB PO PRN (13:42)
== END 2024-03-05 16:42 | disposition home health service (06) | DRG 312 ==
LOC: ED 17:05 → 2N 18:59 → SUATTDRO 18:59 → 2N 20:07 → 3N 03-03 15:12

== ENCOUNTER 2024-04-10 13:26 | Inpatient (IN) ==
--- NOTE | 2024-04-10 14:27 | XRay Report ---
XR pelvis 1-2V routine CLINICAL HISTORY: fall COMPARISON: Pelvis radiograph March 02, 2024. FINDINGS: Sacroiliac joints and symphysis pubis are intact. There are no fractures within the pelvis or hips. There is mild bilateral hip osteoarthritis. There are no osseous lesions. IMPRESSION: No fractures within the pelvis or hips. ACT 112: Negative or not required by law. Electronically signed by: Edmundo Lara M.D. 04/10/2024 2:26 PM
--- NOTE | 2024-04-10 14:27 | XRay Report ---
XR chest 1V portable CLINICAL HISTORY: trauma TECHNIQUE: Single frontal radiograph of the chest was obtained. Comparison: Comparison is made to chest radiograph 03/02/2024 FINDINGS: No lines and tubes are seen. Calcified aortic knob is seen. The lungs are clear. No evidence of pleur al effusion or pneumothorax. IMPRESSION: No acute chest disease. ACT 112: Negative or not required by law. Electronically signed by: Genaro Borjas M.D. 04/10/2024 2:26 PM
--- NOTE | 2024-04-10 14:42 | CT Scan Report ---
CT cervical spine wo con CLINICAL HISTORY: Fall, blood thinners, confusion. COMPARISON: 03/02/2024 TECHNIQUE: Multiple axial CT images of the cervical spine were obtained without contrast. A dose low ering technique was utilized adhering to the principles of ALARA. FINDINGS: There are mild diffuse degenerative changes. There is mild motion artifact. No fracture or subluxation. IMPRESSION: No cervical spine fracture seen. ACT 112: Negative or not required by law. The above report was generated using voice recognition software. It may contain grammatical, syntax o r spelling errors. Electronically signed by: Reji iDng M.D. 04/10/2024 2:41 PM
--- NOTE | 2024-04-10 14:47 | CT Scan Report ---
CT head/brain wo con CLINICAL HISTORY: Fall, blood thinners, confusion Technique: Contiguous axial CT images of the head were acquired from the base of the skull to the willard sadiq without intravenous contrast administration. Images were viewed in brain, [facility] and bone [facility]. Automated dose lowering techniques and/or adjustment according to patient size were utilized for this exam. Comparison: Comparison is made to CT head 03/02/2024 Findings: Areas of decreased attenuation are present in the periventricular and subcortical white matter bilate rally consistent with small vessel ischemic disease. Generalized cerebral volume loss with commensura te enlargement of the ventricles, sulci, and cisterns is also present. Right temporal encephalomalaci a is again seen. There is ex vacuo dilation of the right lateral ventricle. These are unchanged from prior exam. Imaged portions of the paranasal sinuses and mastoid air cells are clear. The orbits appear normal. Right craniotomy changes are seen. Impression: No acute abnormality and in particular no evidence of intracranial hemorrhage. Postcraniotomy changes are again seen as above. ACT 112: Negative or not required by law. Electronically signed by: Genaro Borjas M.D. 04/10/2024 2:46 PM
[2024-04-10 15:25] LABS: Basophils # (auto) 0.03 K/uL (0.00-0.20); Basophils % (auto) 0.5 %; Eosinophils # (auto) 0.25 K/uL (0.00-0.50); Eosinophils % (auto) 3.8 %; Hematocrit (blood only) 40.4 % (42.0-52.0); Hemoglobin 13.6 g/dl (14.0-18.0); Immature Granulocytes # (auto) 0.03 K/uL (0.01-0.20); Immature Granulocytes % (auto) 0.5 %; Lymphocytes # (auto) 1.38 K/uL (1.20-3.40); Lymphocytes % (auto) 20.8 %; Mean Corpuscular Hemoglobin 31.2 pg (25.0-34.0); Mean Corpuscular Hgb Conc 33.7 g/dL (32.0-36.0); Mean Corpuscular Volume 92.7 fL (80.0-100.0); Mean Platelet Volume 9.4 fL (9.4-12.4); Monocytes # (auto) 0.57 K/uL (0.11-0.59); Monocytes % (auto) 8.6 %; Neutrophils # (auto) 4.37 K/uL (1.40-6.50); Neutrophils % (auto) 65.8 %; Platelet Count 225 K/uL (130-400); RDW Coefficient of Variation 13.3 % (11.5-14.5); RDW Standard Deviation 45.4 fL (36.4-46.3); Red Blood Count 4.36 M/uL (4.70-6.10); White Blood Count 6.63 K/ul (4.8-10.8)
[2024-04-10 15:46] LABS: Albumin Level 3.8 gm/dl (3.4-5.0); BUN Creatinine Ratio 22.5 (10-20); Bilirubin Direct 0.1 mg/dl (0-0.2); Bilirubin,Total 0.7 mg/dl (0.2-1.0); Calcium 9.5 mg/dl (8.6-10.3); Creatinine Clr Calc Pharmacy 79.8 ml/min; Potassium 4.1 mmol/L (3.5-5.1); Total Protein 6.9 gm/dl (6.0-8.3)
--- NOTE | 2024-04-10 16:03 | History & Physical Report ---
Date of Service April 10, 2024 Assessment & Plan (1) Recurrent falls: (2) Recurrent brain tumor: (3) Weakness: (4) Diabetes mellitus with hypoglycemia, with long-term current use of insulin: (5) H/O craniotomy: (6) BPH (benign prostatic hyperplasia): Plan This is a 73yo M with a PMH of right temporal lobe GBM resection at [facility] [place] 07/14/2020, resection of recurrent GBM at [facility] on 01/31/2024, DM type II, Hyperlipidemia, BPH, Pulmonary HTN, history of PE, left leg DVT, Hedrick's Esophagus, anxiety and depression who presents with frequent falls. Frequent falls Weakness Ambulatory dysfunction Frequent falls since surgery for recurrent GBM in January 2024 Brain MRI from 03/02/24 - "no evidence of acute intracranial pathology. Status post right anterior temporal lobe tumor resection with heterogeneous enhancement of the posterior and medial margins, which may represent posttreatment effect or residual/recurrent tumor." CT head, cervical spine CT, CXR and pelvis XR without acute traumatic findings CT Lumbar spine ordered given recent fall with subsequent pain Routine neuro consult for further recs, ? repeat brain MRI Keppra level PT/OT eval, likely to need rehab DM type 2 (diabetes mellitus, type 2) A1c: 8.8 in Feb 2024 Insulin dependent Basal bolus insulin while in-patient per protocol BSG ACHS Hypertension BP elevated this evening Losartan and amlodipine were discontinued on previous admission due to + orthostatics and hypotension Consider resuming 1 agent if BP remains elevated Dyslipidemia Continue atorvastatin History of pulmonary embolism History DVT/PE Historically anticoagulated on Xarelto but held 04/03/24 by PCP due to recurrent falls Continue holding Seizure History seizure after 1st glioblastoma in 2020. Denies recurrent seizures Continue levetiracetam Levels pending BPH Continue tamsulosin DVT Ppx: SCDs Code status: FULL PCP: Tone Dispo: admitted to med/surg Patient seen in collaboration with Dr. Morgan. Please see addendum. I spent a total of 75 minutes coordinating, documenting, and providing care for this patient excluding time spent in the performance of separately billed services. History of Present Illness Chief Complaint: frequent falls Primary Care Provider: Apolinar Wayne, DO This is a 73yo M with a PMH of right temporal lobe GBM resection at [facility] on 07/14/2020, resection of recurrent GBM at [facility] on 01/31/2024, DM type II, Hyperlipidemia, BPH, Pulmonary HTN, history of PE, left leg DVT, Hedrick's Esophagus, anxiety and depression who presents with frequent falls. Since undergoing surgery for recurrent GBM in January and returning home from rehab, patient has had multiple falls. Was admitted to our service in February for multiple falls as well as visual changes and neuro recommended discontinuing Depakote. Brain MRI done on 03/02/24 revealed "no evidence of acute intracranial pathology. Status post right anterior temporal lobe tumor resection with heterogeneous enhancement of the posterior and medial margins, which may represent posttreatment effect or residual/recurrent tumor. Recommend short- term interval follow-up to evaluate for stability." Hypotension was noted during admission with + orthostatics and intermittent hypoglycemia, which were felt to be main contributors to weakness and falls. Losartan and amlodipine were discontinued and lantus dose was decreased. PT/OT evaluated and patient returned home with home health. Over the past week, patient has had 6-7 falls at home and ambulating with his walker. A few days ago, he fell shutting the door outside and fell onto his backside, hurting his right lower back. States he has had some intermittent radicular pain down each leg since then. Was trying to get out of bed today and required help due to this back pain and once standing, lost his balance with rolling walker and fell backwards, hitting the back of his head on the TV stand. No LOC. Was directed by Dr. Wayne to HOLD his Xarelto at 04/03/24 appointment due to weakness and recurrent falls, so has not taken since then. Endorsing intermittent weakness in legs that is no different than last hospitalization but feels like he can't get his strength back post surgery in January. Notes this intermittent weakness L>R, similar to before. No F/C, CP, SOB, N/V, abd pain, dysuria, diarrhea or constipation. Denies any other recent medication changes. ambulates with a cane and does not feel she can adequately care for him at home right now. Allergies Allergy/AdvReac Type Severity Reaction Status Date / Time erythromycin base AdvReac Unknown nausea/vomi Verified 12/11/21 09:20 ting Home Medications Medication Instructions Recorded Confirmed Type pantoprazole 40 mg tablet,delayed 40 mg PO QAM 06/18/18 04/10/24 History release multivitamin 1 tab PO DAILY 08/21/19 04/10/24 History carvedilol 3.125 mg tablet 3.125 mg PO BID 07/31/20 04/10/24 History diclofenac sodium 1 % topical gel 2 g topical QID PRN Pain 07/31/20 04/10/24 History polyethylene glycol 3350 17 17 g PO DAILY PRN constipation 07/31/20 04/10/24 History gram/dose oral powder (Miralax) ergocalciferol (vitamin D2) 10 mcg 10 mcg PO DAILY 07/10/21 04/10/24 History (400 unit) tablet sertraline 100 mg tablet (Zoloft) 100 mg PO DAILY 12/27/23 04/10/24 History gabapentin 300 mg capsule 300 mg PO TID 03/02/24 04/10/24 History levetiracetam 750 mg tablet 750 mg PO BID 03/02/24 04/10/24 History magnesium oxide 420 mg tablet 420 mg PO HS 03/02/24 04/10/24 History finasteride 5 mg tablet 5 mg PO HS #0 tabs 03/05/24 04/10/24 Rx tamsulosin 0.4 mg capsule 0.4 mg PO HS #0 caps 03/05/24 04/10/24 Rx atorvastatin 80 mg tablet 80 mg PO DAILY 04/10/24 04/10/24 History docusate sodium 100 mg tablet 100 mg PO BID PRN Constipation 04/10/24 04/10/24 History insulin glargine 100 unit/mL (3 12 unit subcut DAILY 04/10/24 04/10/24 History mL) subcutaneous pen lomustine 40 mg capsule See Rx Instructions .Route .COMPLEX 04/10/24 04/10/24 History lorazepam 0.5 mg tablet 0.5 mg PO TID PRN Anxiety 04/10/24 04/10/24 History 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 01/31/24 at [facility] 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) Medical History (Updated 04/10/24 @ 20:25 by Liliana Solo MD) Diabetes Pulmonary hypertension Steroid-induced hyperglycemia Insomnia BPH (benign prostatic hyperplasia) Degenerative disc disease Severe protein-calorie malnutrition Fatigue Acute metabolic encephalopathy DVT prophylaxis Acute alteration in mental status History of pulmonary embolism Seizure History of agent [place] exposure Anxiety Acute deep vein thrombosis (DVT) of left lower extremity Elevated beta-hydroxybutyrate Elevated AST (SGOT) Hyperglycemia due to type 2 diabetes mellitus Acute pulmonary embolism BPH (benign prostatic hyperplasia) Barretts esophagus DM type 2 (diabetes mellitus, type 2) Surgical History (Updated 04/01/24 @ 00:06 by Mercedes Wilkins) H/O prostate biopsy S/P brain surgery History of cataract surgery LEFT History of anesthesia reaction REMOTE HX - WITH ONE SURGERY (PT UNSURE WHAT SURGERY) - SLEPT FOR 2 DAYS AFTER, NO -RE-OCCURENCE History of endoscopy History of colonoscopy History of foot surgery L History of tonsillectomy and adenoidectomy H/O shoulder surgery R X 2 - MOST RECENT: DEC 2018 Family History Father , 72yo Diabetes Hypertension Sister Cancer Brain tumor 42yo Mother , 80yo Myocardial infarction Son No problems noted. Son No problems noted. 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 Physical Exam Physical Exam: General Appearance: WD/WN, vitals as above, NAD, sitting up in bed, pleasant, conversing easily, appears chronically ill Head: normocephalic, well-healed craniotomy scar Eyes: normal inspection, PERRL, conjunctivae normal, anicteric sclerae ENT: external ear and nose normal, oropharynx normal Neck: normal visual inspection, trachea midline, no thyromegaly Respiratory: normal respiratory effort, lungs clear to auscultation, no wheeze, rales, rhonchi. No accessory muscle use Cardiovascular: regular rate, rhythm, normal peripheral pulses, no BLE edema. Vessels: no JVD Chest: normal inspection of chest Abdomen/GI: normal bowel sounds, soft, nontender, no hepatosplenomegaly Extremities/Musculoskeletal: TTP R paraspinous lumbar region, no deformity. No cyanosis or clubbing, extremities motor strength 5/5 Neurologic: PERRL, EOMI, accommodation nl, no face palsy, no dysarthria, CN's II-XI intact bilaterally and moves all extremities Psychiatric: A+Ox3, euthymic affect Skin: no rashes, normal color, warm/dry Results & Data Results & Data Vital Signs (Past 12 Hours) Vital Signs Temp Pulse Resp BP Pulse Ox O2 Del Method 04/10/24 13:06 37 C 69 18 157/78 H 97 Room Air Laboratory Results Short CBC 04/10/24 Range/Units 15:15 WBC 6.63 (4.8-10.8) K/ul Hgb 13.6 L (14.0-18.0) g/dl Hct 40.4 L (42.0-52.0) % Plt Count 225 (130-400) K/uL BMP 04/10/24 15:15 Sodium 139 Potassium 4.1 Chloride 101 Carbon Dioxide 31 BUN 18 Creatinine 0.80 Glucose 162 H Calcium 9.5 Liver Function 04/10/24 Range/Units 15:15 Total Bilirubin 0.7 (0.2-1.0) mg/dl Direct Bilirubin 0.1 (0-0.2) mg/dl AST 18 (13-39) U/L ALT 12 (7-52) U/L Alkaline Phosphatase 120 H (34-104) U/L Albumin 3.8 (3.4-5.0) gm/dl Urine 04/10/24 Range/Units 19:25 Urine Color Yellow Urine Appearance Clear (Clear) Urine pH 6.0 (4.5-7.5) Ur Specific [place] 1.025 (1.000-1.030) Urine Protein Trace H (Negative) Urine Glucose (UA) Negative (Negative) Diagnostic Findings Cervical Spine CT 04/10/24 14:07 CT cervical spine wo con CLINICAL HISTORY: Fall, blood thinners, confusion. COMPARISON: 03/02/2024 TECHNIQUE: Multiple axial CT images of the cervical spine were obtained without contrast. A dose lowering technique was utilized adhering to the principles of ALARA. FINDINGS: There are mild diffuse degenerative changes. There is mild motion artifact. No fracture or subluxation. IMPRESSION: No cervical spine fracture seen. ACT 112: Negative or not required by law. The above report was generated using voice recognition software. It may contain grammatical, syntax or spelling errors. Electronically signed by: Reji Ding M.D. 04/10/2024 2:41 PM Chest X-Ray 04/10/24 14:07 XR chest 1V portable CLINICAL HISTORY: trauma TECHNIQUE: Single frontal radiograph of the chest was obtained. Comparison: Comparison is made to chest radiograph 03/02/2024 FINDINGS: No lines and tubes are seen. Calcified aortic knob is seen. The lungs are clear. No evidence of pleural effusion or pneumothorax. IMPRESSION: No acute chest disease. ACT 112: Negative or not required by law. Electronically signed by: Genaro Borjas M.D. 04/10/2024 2:[address] 04/10/24 14:07 CT head/brain wo con CLINICAL HISTORY: Fall, blood thinners, confusion Technique: Contiguous axial CT images of the head were acquired from the base of the skull to the vertex without intravenous contrast administration. Images were viewed in brain, subdural and bone windows. Automated dose lowering techniques and/or adjustment according to patient size were utilized for this exam. Comparison: Comparison is made to CT head 03/02/2024 Findings: Areas of decreased attenuation are present in the periventricular and subcortical white matter bilaterally consistent with small vessel ischemic disease. Generalized cerebral volume loss with commensurate enlargement of the ventricles, sulci, and cisterns is also present. Right temporal encephalomalacia is again seen. There is ex vacuo dilation of the right lateral ventricle. These are unchanged from prior exam. Imaged portions of the paranasal sinuses and mastoid air cells are clear. The orbits appear normal. Right craniotomy changes are seen. Impression: No acute abnormality and in particular no evidence of intracranial hemorrhage. Postcraniotomy changes are again seen as above. ACT 112: Negative or not required by law. Electronically signed by: Genaro Borjas M.D. 04/10/2024 2:46 PM Pelvis X-Ray 04/10/24 14:07 XR pelvis 1-2V routine CLINICAL HISTORY: fall COMPARISON: Pelvis radiograph March 02, 2024. FINDINGS: Sacroiliac joints and symphysis pubis are intact. There are no fractures within the pelvis or hips. There is mild bilateral hip osteoarthritis. There are no osseous lesions. IMPRESSION: No fractures within the pelvis or hips. ACT 112: Negative or not required by law. Electronically signed by: Edmudno Lara M.D. 04/10/2024 2:26 PM Code Status & VTE Plan VTE Prophylaxis Plan VTE Prophylaxis will be ordered: Yes Supervising Physician Co-Signing Physician Notes Pt seen and examined by me, care coordinated w/ Roxy Gross PA-C, pls refer to her note above for further detail 73 yo M with right temporal lobe GBM resection at [facility] [place] 07[place]14[place]2020, resection of recurrent GBM at [facility] on 01/31/2024, DM type II, Hyperlipidemia, BPH, Pulmonary HTN, history of PE, left leg DVT, Hedrick's Esophagus, anxiety and depression who presents with frequent falls. Since undergoing surgery for recurrent GBM in January and returning home from rehab, patient has had multiple falls. Was admitted to our service in February for multiple falls as well as visual changes and neuro recommended discontinuing Depakote. Brain MRI done on 03/02/24 revealed "no evidence of acute intracranial pathology. Over the past week, patient has had 6-7 falls at home and ambulating with his walker. Was directed by Dr. Wayne to HOLD his Xarelto at 04/03/24 appointment due to weakness and recurrent falls, so has not taken since then. Endorsing intermittent weakness in legs that is no different than last hospitalization but feels like he can't get his strength back post surgery in January. Currently laying in bed in NAD. He is awake, alert, able to provide hx, answers appropriately. Speech fluent. Lungs CTAB, heart sounds regular. Abdomen soft, nontender. Pt moves extremities. Will obtain UA. Will obtain CT lumbar spine. Neuro consult. PT/OT. MD Eddie
--- NOTE | 2024-04-10 16:36 | Emergency Department Note ---
Impression & Plan Concussion without loss of consciousness, Weakness, Recurrent falls, Adult failure to thrive ED Provider Note NAME: JADE VALENCIA AGE: 73 SEX: M : 1950 ARRIVES VIA: Ambulance INFORMANT: Patient, ED PROVIDER(S): Liliana Solo MD CHIEF COMPLAINT: [Falls HPI: This is a 73-year-old male presenting after a fall. Patient notes that today he was walking when he turned and lost control of his walker. He fell backwards hit the back of his head against a TV stand. He did not lose consciousness. Has not been on blood thinners for the past 10 days but he was on Xarelto previous to this. He has had approximately 9 falls in the past 8 days. He does have home occupational health was concerned about him and sent him here as well. No fevers, chills, nausea or vomiting. He reported one of the previous falls he had some right hip pain which is since resolving. ROS: See above HPI for pertinent positives & negatives. A total of 10 systems reviewed and were otherwise negative. PAST MEDICAL HISTORY: See Below PAST SURGICAL HISTORY: See Below FAMILY HISTORY: See Below SOCIAL HISTORY: See Below HOME MEDICATIONS: See Below ALLERGIES: See Below VITALS: See Below PHYSICAL EXAMINATION: General: resting comfortably in no acute distress Head: Normocephalic and atraumatic Eyes: Normal inspection, extraocular muscles intact Ear, nose, throat: Normal external exam Neck: Normal range of motion Respiratory: lungs clear to auscultation bilaterally Cardiovascular: Regular rate/rhythm, no murmur GI: soft, nontender, no guarding or rebound Extremities: nontender, moves all extremities Neuro: The patient awake and alert, appropriately conversive, no focal deficits, symmetric faces Skin: Warm, dry, and intact MEDICAL DECISION MAKING: This is a 73-year-old male presenting after a fall. Patient had numerous falls in the past few days. Concern patient safety at home. You likely require SNF or further rehab resources. Will do screening trauma workup including CT of the head, C-spine, chest x-ray and pelvic x-ray. He has no current pain in his chest or hip. He is able to move all extremities. -CT head and C-spine are currently negative. -Chest Xray independently interpreted by me showing no pneumothorax, focal opacity, or pleural effusions. -X-ray of the pelvis as Independently interpreted by me does not reveal osseous fracture or dislocation -I was advised by the ease business process manager that the patient's outpatient showcase trimmer was concerned about the patient and may be require SNF. In addition there is no safe discharge plan for the patient at this time to go home as he has been falling numerous times in the past few days. Will require admission for further PT and other inpatient assessment. Differential diagnosis: Intracranial hemorrhage, hip fracture, cervical spine fracture, deconditioning Diagnostics interpreted by me: ECG: None Cardiac Monitoring: An order was placed for continuous cardiac monitoring. The monitor shows a rate of 67 with sinus rhythm. 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) Medical History (Updated 04/10/24 @ 20:25 by Liliana Solo MD) Diabetes Pulmonary hypertension Steroid-induced hyperglycemia Insomnia BPH (benign prostatic hyperplasia) Degenerative disc disease Severe protein-calorie malnutrition Fatigue Acute metabolic encephalopathy DVT prophylaxis Acute alteration in mental status History of pulmonary embolism Seizure History of agent [place] exposure Anxiety Acute deep vein thrombosis (DVT) of left lower extremity Elevated beta-hydroxybutyrate Elevated AST (SGOT) Hyperglycemia due to type 2 diabetes mellitus Acute pulmonary embolism BPH (benign prostatic hyperplasia) Barretts esophagus DM type 2 (diabetes mellitus, type 2) Surgical History (Updated 04/01/24 @ 00:06 by Mercedes Wilkins) H/O prostate biopsy S/P brain surgery History of cataract surgery LEFT History of anesthesia reaction REMOTE HX - WITH ONE SURGERY (PT UNSURE WHAT SURGERY) - SLEPT FOR 2 DAYS AFTER, NO -RE-OCCURENCE History of endoscopy History of colonoscopy History of foot surgery L History of tonsillectomy and adenoidectomy H/O shoulder surgery R X 2 - MOST RECENT: DEC 2018 Family History Father , 72yo Diabetes Hypertension Sister Cancer Brain tumor 42yo Mother , 80yo Myocardial infarction Son No problems noted. Son No problems noted. 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125 mg tablet 3.125 mg PO BID 07/31/20 04/10/24 diclofenac sodium 1 % topical gel 2 g topical QID PRN Pain 07/31/20 04/10/24 polyethylene glycol 3350 17 17 g PO DAILY PRN constipation 07/31/20 04/10/24 gram/dose oral powder (Miralax) ergocalciferol (vitamin D2) 10 mcg 10 mcg PO DAILY 07/10/21 04/10/24 (400 unit) tablet sertraline 100 mg tablet (Zoloft) 100 mg PO DAILY 12/27/23 04/10/24 gabapentin 300 mg capsule 300 mg PO TID 03/02/24 04/10/24 levetiracetam 750 mg tablet 750 mg PO BID 03/02/24 04/10/24 magnesium oxide 420 mg tablet 420 mg PO HS 03/02/24 04/10/24 atorvastatin 80 mg tablet 80 mg PO DAILY 04/10/24 04/10/24 docusate sodium 100 mg tablet 100 mg PO BID PRN Constipation 04/10/24 04/10/24 insulin glargine 100 unit/mL (3 12 unit subcut DAILY 04/10/24 04/10/24 mL) subcutaneous pen lomustine 40 mg capsule See Rx Instructions .Route .COMPLEX 04/10/24 04/10/24 lorazepam 0.5 mg tablet 0.5 mg PO TID PRN Anxiety 04/10/24 04/10/24 Previous Rx's Medication Instructions Recorded finasteride 5 mg tablet 5 mg PO HS #0 tabs 03/05/24 tamsulosin 0.4 mg capsule 0.4 mg PO HS #0 caps 03/05/24 Results & Data (ED) Vital Signs Vital Signs - 24 hr 04/10/24 13:06 04/10/24 15:18 Temperature 37 C Temperature Source Oral Pulse Rate 69 Pulse Rate [Apical] 70 Respiratory Rate 18 18 Respiratory Effort / Characteristics Non-Labored Spontaneous Non-Labored Spontaneous Respiratory Depth Normal Respiratory Pattern Regular Blood Pressure 157/78 H Blood Pressure [Right Arm] 155/75 H Blood Pressure Mean 104 Blood Pressure Mean [Right Arm] 101 Blood Pressure Position Right Lateral Blood Pressure Position [Right Arm] Lying Pulse Oximetry 97 97 Oxygen Delivery Method Room Air Room Air Sepsis Recent Fever Within 48 Hours No Sepsis New/Unexplained Change in Mental Status N/A Sepsis Action Taken by Nursing No Action Required Laboratory Data 04/10/24 15:15 04/10/24 15:15 Lab Results 04/10/24 Range/Units 15:15 WBC 6.63 (4.8-10.8) K/ul RBC 4.36 L (4.70-6.10) M/uL Hgb 13.6 L (14.0-18.0) g/dl Hct 40.4 L (42.0-52.0) % MCV 92.7 (80.0-100.0) fL MCH 31.2 (25.0-34.0) pg MCHC 33.7 (32.0-36.0) g/dL RDW Std Deviation 45.4 (36.4-46.3) fL RDW Coeff of Diandra 13.3 (11.5-14.5) % Plt Count 225 (130-400) K/uL MPV 9.4 (9.4-12.4) fL Immature Gran % (Auto) 0.5 % Neut % (Auto) 65.8 % Lymph % (Auto) 20.8 % Rains % (Auto) 8.6 % Eos % (Auto) 3.8 % Baso % (Auto) 0.5 % Neut # (Auto) 4.37 (1.40-6.50) K/uL Lymph # (Auto) 1.38 (1.20-3.40) K/uL Rains # (Auto) 0.57 (0.11-0.59) K/uL Eos # (Auto) 0.25 (0.00-0.50) K/uL Baso # (Auto) 0.03 (0.00-0.20) K/uL Immature Gran # (Auto) 0.03 (0.01-0.20) K/uL Sodium 139 (136-145) mmol/L Potassium 4.1 (3.5-5.1) mmol/L Chloride 101 (98-107) mmol/L Carbon Dioxide 31 (21-32) mmol/L Anion Gap 7 (3-11) BUN 18 (6-23) mg/dl Creatinine 0.80 (0.6-1.4) mg/dl Est Cr Clr Drug Dosing 79.8 ml/min eGFR 92.29 BUN/Creatinine Ratio 22.5 H (10-20) Glucose 162 H (70-99(Fasting)) mg/dl Calcium 9.5 (8.6-10.3) mg/dl Total Bilirubin 0.7 (0.2-1.0) mg/dl Direct Bilirubin 0.1 (0-0.2) mg/dl AST 18 (13-39) U/L ALT 12 (7-52) U/L Alkaline Phosphatase 120 H (34-104) U/L Total Protein 6.9 (6.0-8.3) gm/dl Albumin 3.8 (3.4-5.0) gm/dl Lipase 19 (11-82) U/L Imaging Data Radiologist's Impression: Cervical Spine CT 04/10/24 14:07 CT cervical spine wo con CLINICAL HISTORY: Fall, blood thinners, confusion. COMPARISON: 03/02/2024 TECHNIQUE: Multiple axial CT images of the cervical spine were obtained without contrast. A dose lowering technique was utilized adhering to the principles of ALARA. FINDINGS: There are mild diffuse degenerative changes. There is mild motion artifact. No fracture or subluxation. IMPRESSION: No cervical spine fracture seen. ACT 112: Negative or not required by law. The above report was generated using voice recognition software. It may contain grammatical, syntax or spelling errors. Electronically signed by: Reji Ding M.D. 04/10/2024 2:41 PM Chest X-Ray 04/10/24 14:07 XR chest 1V portable CLINICAL HISTORY: trauma TECHNIQUE: Single frontal radiograph of the chest was obtained. Comparison: Comparison is made to chest radiograph 03/02/2024 FINDINGS: No lines and tubes are seen. Calcified aortic knob is seen. The lungs are clear. No evidence of pleural effusion or pneumothorax. IMPRESSION: No acute chest disease. ACT 112: Negative or not required by law. Electronically signed by: Genaro Borjas M.D. 04/10/2024 2:[address] 04/10/24 14:07 CT head/brain wo con CLINICAL HISTORY: Fall, blood thinners, confusion Technique: Contiguous axial CT images of the head were acquired from the base of the skull to the vertex without intravenous contrast administration. Images were viewed in brain, subdural and bone windows. Automated dose lowering techniques and/or adjustment according to patient size were utilized for this exam. Comparison: Comparison is made to CT head 03/02/2024 Findings: Areas of decreased attenuation are present in the periventricular and subcortical white matter bilaterally consistent with small vessel ischemic disease. Generalized cerebral volume loss with commensurate enlargement of the ventricles, sulci, and cisterns is also present. Right temporal encephalomalacia is again seen. There is ex vacuo dilation of the right lateral ventricle. These are unchanged from prior exam. Imaged portions of the paranasal sinuses and mastoid air cells are clear. The orbits appear normal. Right craniotomy changes are seen. Impression: No acute abnormality and in particular no evidence of intracranial hemorrhage. Postcraniotomy changes are again seen as above. ACT 112: Negative or not required by law. Electronically signed by: Genaro Borjas M.D. 04/10/2024 2:46 PM Pelvis X-Ray 04/10/24 14:07 XR pelvis 1-2V routine CLINICAL HISTORY: fall COMPARISON: Pelvis radiograph March 02, 2024. FINDINGS: Sacroiliac joints and symphysis pubis are intact. There are no fractures within the pelvis or hips. There is mild bilateral hip osteoarthritis. There are no osseous lesions. IMPRESSION: No fractures within the pelvis or hips. ACT 112: Negative or not required by law. Electronically signed by: Edmundo Lara M.D. 04/10/2024 2:26 PM Discharge Plan Visit Data Chief Complaint: Fall Stated Complaint: INJURY ALERT, FALL ED Provider: Liliana Solo Discharge Problem: Concussion without loss of consciousness, Weakness, Recurrent falls, Adult failure to thrive Patient Disposition: Admitted As Inpatient Discharge Instructions Interventions: ED Discharge Assessment Last Done: 04/10/24 17:38
[2024-04-10] MEDS ORDERED: ONDANSETRON INJ 2 MG/ML 2 ML VIAL IV PRN (18:11)
--- OUTSIDE RECORDS SUMMARY | 2024-04-10 19:06 | External Medical Summary | Summary of Care ---
Author Name Unknown Organization [facility] Address [address] [place] [address] Phone [phone] Care Team Providers Care Tooling Mechanic Name Role Phone Apolinar Wayne DO Primary Care Provider [phone] Reason for Visit * Reason Onset Date Comments Information 04/05/202404/05, 04/06 Encounter Details Date Type Department Care Team (Late st Contact Info) Description 04/05/2024 Telephone Family Practice [address], [place] [address] [place] [address] Apolinar Wayne DO [address] [place] [address] Information (04/05, 04/06 ) Allergies Active Allergy Reactions Criticality Noted Date Comments Erythromycin 07/02/1998 GI upset Guaifenesin & Derivatives 03/18/1997 nucofed documented as of this encounter (statuses as of 04/06/2024) Medications BD Pen Needle Altagracia U/F 32G X 4 MM (Insulin Pen Needle) Use to inject insulin 4 times a day 200 Each 3 07/05/19 21 Active SURGICAL COMPRESSION STOCKING 20 to 30mm knee high. 2 Each 6 11/05/19 21 Active B Complex (Folic Acid) Oral TabletIndications :general health Take 1 Tablet by mouth in the morning. 04/15/19 22 Active Vitamin D3 25 MCG (1000 UT) Oral CapsuleIndication s:general health Take 1 Capsule by mouth every evening. Active FreeStyle Aarti 2 SensorIndications :Type 2 diabetes mellitus with hemoglobin A1c goal of less than 7.0% ([facility]) Use as directed every 14 days . 1 Each 11/29/19 22 Active Magnesium Oxide 420 MG Oral TabletIndications :general health Take 1 Tablet by mouth every evening. 12/05/19 22 Active Gabapentin 300 MG Oral Capsule (Neurontin) TAKE BY MOUTH ONE CAPSULE IN THE MORNING AND ONE CAPSULE AT NOON AND ONE CAPSULE BEFORE BEDTIME 300 Capsule 3 4 8:14 AM EST 03/24/19 24 025 Active Sertraline HCl 100 MG Oral Tablet (Zoloft)Indicatio ns:Current moderate episode of major depressive disorder without prior episode ([facility]),PTSD (post-traumatic stress disorder) Take 1 Tablet by mouth in the morning. 100 Tablet 3 4 2:51 PM EST 04/15/19 24 Active Diclofenac Sodium 1 % External Gel (Voltaren) APPLY TOPICALLY TO AFFECTED AREA 3 TIMES A DAY -- TO HANDS, BILATERALLY FOR ARTHRITIC PAIN 200 g 5 4 11:48 AM EDT 04/29/19 24 025 Active Pantoprazole Sodium 40 MG Oral Tablet Delayed Release (Protonix)Indicat ions:Heartburn TAKE ONE TABLET BY MOUTH EVERY DAY 100 Tablet 3 5 9:33 AM EST 05/29/19 24 025 Active Valtoco 10 MG Dose 10 MG/0.1ML Nasal Liquid (diazePAM)Indicat ions:Localization -related epilepsy, intractable (HCC) Administer 10 mg into nostril as needed (seizures lasting longer than 3 minutes). 1 Each 1 4 2:07 PM EDT 12/26/19 24 Active Ondansetron HCl 8 MG Oral Tablet (Zofran)Indicatio ns:Glioblastoma (HCC) Take 1 tablet by mouth 30 minutes prior to lomustine and every 8 hours as needed for nausea. Do not exceed 3 tablets per 24 hours. 60 Tablet 1 4 2:49 PM EDT 01/06/20 24 Active Atorvastatin Calcium 80 MG Oral Tablet (Lipitor)Indicati ons:Dyslipidemia, goal LDL below 100 Take 1 Tablet by mouth daily. 100 Tablet 3 4 9:59 AM EDT 01/16/20 24 Active levETIRAcetam 750 MG Oral Tablet take 1 tablet by mouth every 12 hours 60 Tablet 4 4:13 PM EST 02/19/20 24 Active Insulin Glargine 100 UNIT/ML Subcutaneous Solution (Lantus) inject 12 units Subcutaneous every 12 hours 10 mL 4 4:13 PM EST 02/20/20 24 Active Multiple Vitamins Oral Tablet Take 1 Tablet by mouth in the morning. Active LORazepam 0.5 MG Oral Tablet (Ativan)Indicatio ns:Anxiety Take 1 Tablet by mouth 3 times a day as needed for Anxiety. 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 200 Tablet 3 04/02/19 25 Active Tamsulosin HCl 0.4 MG Oral Capsule (Flomax) Take 1 Capsule by mouth in the morning. 100 Capsule 3 04/02/19 25 Active Glucerna Shake Oral Liquid Take by mouth 2 times a day. Active Docusate Sodium 50 MG Oral Capsule (Colace)Indicatio ns:Glioblastoma (HCC) Take 1 Capsule by mouth in the morning and 1 Capsule before bedtime. 60 Capsule 3 04/04/19 25 Active Ondansetron HCl 8 MG Oral Tablet (Zofran)Indicatio ns:Glioblastoma (HCC) Take 1 tablet by mouth 30 minutes prior to lomustine and every 8 hours as needed for nausea. Do not exceed 3 tablets per 24 hours. 60 Tablet 1 04/04/19 25 Active Lomustine 40 MG Oral Capsule (Ceenu)Indication s:Glioblastoma (HCC) Take 4 Capsules by mouth every 6 weeks. Take on an empty stomach 4 Capsule 5 3:20 PM EST 04/04/19 Active Rivaroxaban 20 MG Oral Tablet (Xarelto)Indicati ons:blood clot prevention Take 1 Tablet by mouth every afternoon[facility] 04/15/19 22 025 Discontin ued(Medic ation/Dos e Changed) Rivaroxaban 20 MG Oral Tablet (Xarelto)Indicati ons:History of deep venous thrombosis (DVT) of distal vein of left lower extremity,History of pulmonary embolism Take 1 Tablet by mouth daily with dinner. 30 Tablet 04/02/19 25 025 Discontin ued(Medic ation/Dos e Changed) documented as of this encounter (statuses as of 04/06/2024) Active Problems Problem Noted Date Diagnosed Date Type 2 diabetes mellitus wit h hemoglobin A1c goal of less than 8.0% 03/27/2024 Tremor 03/27/2024 PTSD (post-traumatic stress disorder) 06/11/2022 Current moderate episode of major depressive disorder without prior episode 04/15/2021 Gastro-esophageal reflux disease without esophag itis 04/15/2021 Localization-related epilepsy 11/13/2020 Encounter for antineoplastic chemotherapy 2020 Claustrophobia 08/21/2020 Glioblastoma 06/29/2020 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 Pulmonary hypertension 10/10/2018 Diabetes 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 06/27/2018 assisted (current) use of insulin 10/27/2017 History of [...] 100 03/04/2009 Overview (03/04/2009): Per Lipid Taxonomy. documented as of this encounter (statuses as of 04/06/2024) Resolved Problems Problem Noted Date Diagnosed Date [...] 130/80 04/16/200911/10 Overview (04/16/2009): Per HTN Taxonomy. Type 2 diabetes mellitus wit h hemoglobin A1c goal of less than 7.0% 01/16/2009 03/27/2024 Overview (07/15/2015): Per Diabetes Taxonomy. ICD-10 update of inactive term Benign neoplasm of colon 08/26/2006 Overview (09/08/2006): [...] as of this encounter (statuses as of 04/06/2024) Immunizations Name Administration Dates Next Due COVID-19 mRNA, LNP-s, No Pre serve, 2-Dose Series ([facility]) 03/10/2021,06/07/2020,05/17/2020 COVID-19, LNP-s, No Preserve , Chandler-sucrose, [...] Valent 09/26/2013 Pneumococcal Polysaccharide PPV23 (Pneumovax) 06/20/2018,09/13/2017,09/26/2013,08/25 RSV Vac., Recomb, Adjuvant, PF,0.5 Ml (Arexvy) 03/27/2024 Season Influenza, Quad, PF, Adjuvanted, 65+ Yrs, [...] Answer Date Recorded PHQ Adult Total Score 12 03/06/2024 Hunger Vital Sign Answer Date Recorded Within the past 12 months, y ou worried that your food would run out before you got the money to buy more. Never true 03/06/20 24 Within the past 12 months, t he food you bought just didn't last and you didn't have money to get more. Never true 03/06/2024 Childcare Answer Date Recorded Do you feel overwhelmed with taking care of a child, family member or friend? No 03/06/2024 Does your family need help f inding childcare? (Household - for ages 0-17 years) Not on file 03/06/2024 Clothing Answer Date Recorded Have you been unable to get clothing when it was really needed? No 03/06/2024 Is your family able to get c lothes or diapers when needed? (Household - for ages 0-17 years) Not on file 03/06/2024 Personal Safety Answer Date Recorded Do you feel unsafe or have concerns for your saf ety? No 03/06/2024 Do you have concerns for you r family's safety? (Household - for ages 0-17 years) Not on file 03/06/2024 Utilities Answer Date Recorded Do you have trouble paying y our heating, water, or electric bill? No 03/06/2024 Is your family able to pay t he heat, water, or electric bill? (Household - for ages 0-17 years) Not on file 03/06/2024 Does your family have access to good internet? (Household - for ages 0-17 years) Not on file 03/06/2024 Employment Status Answer Date Recorded Are you unemployed or without regular income? No 03/06/2024 Does the household have a re lar source of income? (Household - for ages 0-17 years) Not on file 03/06/2024 Social Connections Answer Date Recorded How often do you feel lonely or isolated from th ose around you? Rarely 03/06/2024 Financial Resource Strain Answer Date R ecorded Do you have any trouble payi ng for your medications, or do you think you might in the future? No 03/06/2024 Does your family have troubl e paying for medicine? (Household - for ages 0-17 years) Not on file 03/06/2024 Transportation Needs Answer Date Record ed READ ONLY Do you have troubl e getting a ride to medical visits or work? Never True 03/06/2024 Does your family have a hard time getting a ride to doctors visits? (Household - for ages 0-17 years) Not on file 03/06/2024 Has lack of transportation k ept you from medical appointments, meetings, work, or from getting things needed for daily living? Check all that apply. No 03/06/2024 Do you (or your family) have trouble finding or paying for a ride (transportation)? (Household - for ages 0-17 years) Not on file 03/06/2024 Housing Stability Answer Date Recorded Do you currently live in a s helter or have no steady place to sleep at night? No 03/06/2024 READ ONLY Do you think you a re at risk of becoming homeless? No 03/06/2024 Does your family worry about paying for your home or becoming homeless? (Household - for ages 0-17 years) Not on file 1 05/07/2023 Are you homeless or worried that you might be in the future? No 03/06/2024 Are you (or your family) alexi eless or worried that you might be in the future? (Household - for ages 0-17 years) Not on file Food Insecurity Answer Date Recorded Do you need food for this week? No 03/06/2024 Are you able to get enough f ood for your family? (Household - for ages 0-17 years) Not on file 03/06/2024 Does your family need food t his week? (Household - for ages 0-17 years) Not on file 03/06/2024 Do you always have enough fo od for your family? (Household - for ages 0-17 years) Not on file 03/06/2024 Sex and Gender Information Value Date Recorded [...] Telephone Encounter - Rain Yañez RN - 04/06/2024 1:49 PM EST Left VM with medial records from [facility] to get recent PT, OT, ST records to submit to [facility] for short term inpatient rehab stay. Gave [address] [place] phone #. I know PT was just today at 11am. If they call back, please have the records faxed to [place] office and place a copy on my desk for me tosubmit on Tuesday. TY * Telephone Encounter - Rain Yañez RN - 04/05/2024 5:53 PM EST Also, said the three children have been talked to and have been asked to help more with caringfor Gilbert-- Aimee said "my heart is crushed with their responses they are not able to help more than they are." * Telephone Encounter - Rain Yañez RN - 04/05/2024 5:22 PM EST Spoke to and patient at length. Since [facility], [facility] will be best to start there. and patient are refusing to have him at the NH home a [place]-- had a friend who was there and did not get good care- per patient. PT from [facility] is going out to the home tomorrow at 11a told Aimee and Gilbert to be upfront and honest with the physical therapist that he wants to go back for an inpatient rehab stay, but not at [facility]. and patient do not want respite stay- they want inpatient rehab for more intensive PT/OT. Outpatient PT and OT are at the home for 30 mins 2 times a week. Gilbert is unsure if he can do 3 hours of PT/OT/ST every day, advised him that will be what is expected when/if he is admitted. When discussing insurance authorizations, and if it got denied- patient said that the [facility] should be picking up the tab of whatever [employer] does not cover. She said that happened for a long time, and then all of a sudden, nothing. She is going to contact the NH rep in [place] tomorrow to discuss this. She wanted advice on what facilities to look at- they are not interested in looking very far from their home. I told them both I would work on this tomorrow morning- to get recent PT/OT/ST evals from [facility] homehealth- as 1730 on a afternoon I cannot do much. I also discussed about bed availability and the upcoming holiday as limiting factors. They verbalized understanding. I will be following up tomorrow. Any other ideas/recs? * Telephone Encounter - Sadie Madera LPN - 04/05/2024 4:43 PM EST Dany with speech therapy calling, Dany is with Onur and spouse. warehouse worker consult has been placed. Family is [facility] at local [facility]. Patient has had physical therapy 1/3 cancellations from patient and spouse for following 3 appts. Only had one evaluation done. Can we work together to have patient placed for respite care? Willing to go some place for under < 30 days. Thank you * Telephone Encounter - Tamiko Santos RT (R) - 04/05/2024 4:39 PM EST Dany from [facility] Speech Therapy calling regarding Denis. documented in this encounter Plan of Treatment Upcoming Encounters Date Type Department Care Team (Late st Contact Info) Description 04/09/2024 12:30 PM EST Home Visit erwiner at [facility] [address] [place] [address] Betzy Vega, HECTOR [address] [place] [address] 04/11/2024 3:45 PM EST Pharmacy Pharmacy Hematology Oncology [facility] [address] [place] [address] [facility], [facility] Hem/Onc [address] [place] [address] 04/16/2024 7:10 AM EST Laboratory Lab Mobile Phlebotomy [facility] [address] [place] [address] M[facility], Gml Mobile Home Draw [address] [facility] [place] [address] 04/17/2024 2:20 PM EST Office Visit Family [address] 293 [facility], [place] [address] Apolinar Wayne, 293 [facility] [address] 04/19/2024 10:30 AM EST Imaging Radiology [address] [place] [address] 04/23/2024 7:10 AM EST Laboratory Lab Mobile Phlebotomy [facility] [address] [place] [address] Mvmg, Gml Mobile Home Draw [address] [place], [place] [address] 04/26/2024 9:00 AM EST Office Visit Hematology/Oncology [facility] [place] [address] [place] [id number] Fernando Solo MD [address] [place], [place] [address] 04/27/2024 3:00 PM EST Office Visit Family Practice [address] [place] [address] [place] [address] Apolinar Wayne, [address] [facility] [address] 04/30/2024 7:10 AM EST Laboratory Lab Mobile Phlebotomy [facility] [address] [place] [address] Mvmg, Gml Mobile Home Draw [address] [place] [address] 05/07/2024 7:10 AM EST Laboratory Lab Mobile Phlebotomy [facility] [address] [place] [address] Mvmg, Gml Mobile Home Draw [address] [place] [address] 05/14/2024 7:10 AM EST Laboratory Lab Mobile Phlebotomy [facility] [address] [place] [address] Mvmg, Gml Mobile Home Draw [address] [place] [address] 05/21/2024 7:10 AM EST Laboratory Lab Mobile Phlebotomy [facility] [address] [facility] [place] [address] Mvmg, Gml Mobile Home Draw [address] [place] [address] 05/21/2024 2:30 PM EST Office Visit Urology Garima Meyers [address] [facility] [address] [place] [address] Michelle Rodriguez PA-C [address] [place] [address] 05/28/2024 7:10 AM EDT Laboratory Lab Mobile Phlebotomy [facility] [address] [facility], [place] [address] Mvmg, Gml Mobile Home Draw [address] [place] [address] 06/04/2024 7:10 AM EDT Laboratory Lab Mobile Phlebotomy [facility] [address] [place] [address] Mvmg, Gml Mobile Home Draw [address] [place], [place] [address] 06/11/2024 7:10 AM EDT Laboratory Lab Mobile Phlebotomy [facility] [address] [place], [place] [address] Mvmg, Gml Mobile Home Draw [address] [place], [place] [address] 06/18/2024 7:10 AM EDT Laboratory Lab Mobile Phlebotomy [facility] [address] [place], [place] [address] Mvmg, Gml Mobile Home Draw [address] [place], [place] [address] Scheduled Procedures Name Priority Associated Diagnoses Date/Ti me COLONOSCOPY FLEXIBLE PROXIMAL DIAGNOSTIC Recall History of colonic polyps ESOPHAGOGASTRODUODENOSCOPY ( EGD), FLEXIBLE, TRANSORAL, DIAGNOSTIC Recall Hedrick's esophagus Health Maintenance Due Date Last Done Comments Adult Wellness Visit 2014 Hedrick's Esophagus Surveilance 09/27/2021 09/27/2018, 09/27/2018, 06/06/2015, Additional history exists Diabetic Eye Exam 05/17/2024 05/17/2023, , 03/15/2023, Additional history exists Diabetic Foot Exam 05/18/2024 05/18/2023, 0 06/11/2022, 08/12/2021, Additional history exists HbA1c 07/30/2024 01/31/2024, 10/20, 08/09/2023, Additional history exists Colonoscopy 11/01/2024 11/02/2019, 10/19, 09/30/2016, Additional history exists Albumin/Creatinine Ratio 11/16/2024 024, 12/14/2022, 02/17/2022, Additional history exists Depression Monitoring 03/06/2025 03/06/2024 GFR 03/20/2025 03/20/2024, 02/18, 02/15/2024, Additional history exists DTap/Tdap Vaccines (5 - Td or Tdap) 11/16/2033 11/17/2023, 09/26/2013, 05/01/2010, Additional history exists Pneumococcal Vaccine: 50+ Years Completed 06/20/2018, 09/13/2017, 10/23/2015, Additional history [...] this encounter Medical Devices Implanted Type Area Lap Winding Machine Operator Device Identifier Shelf Expiration Date Model / Serial / Lot Graft Lyoplant 5.0x5.0cm 2x2 - [id number] Implanted:Qty : 1 on 06/24/2020 by Madi Kaur MD at [facility] Right: Head B [employer]ICE[employer] : AESCULACleo 11/18/2024 [id number] / / [id number] Graft Lyoplant 5.0x5.0cm 2x2 - [id number] Implanted:Qty : 1 on 06/24/2020 by Madi Kaur MD at [facility] B [employer] : AESCULAP [id number] 11/18/2024 [id number] / [id number] / [id number] Graft Lyoplant 5.0x5.0cm 2x2 - [id number] Implanted:Qty : 1 on 06/24/2020 by Madi Kaur MD at [facility] Right: Head B [employer] : AESCULAP 06/24/2020 [id number] / / [id number] Graft Lyoplant 5.0x5.0cm 2x2 - [id number] Implanted:Qty : 1 on 06/24/2020 by Madi Kaur MD at [facility] B [employer] : KEESHIVANI [id number] 11/18/2024 [id number] / [id number] / [id number] Plate Ti Lo Pro Str 2h 421.502 - [id number] Implanted:Qty : 2 on 06/24/2020 by Madi Kaur MD at [facility] Right: Head SYNTHES MAXILLOFACIAL 421.502 / / Plate Bx Ti [id number] 4h 421.521 - [id number] Implanted:Qty : 1 on 06/24/2020 by Madi Kaur MD at [facility] Right: Head SY[employer]ES [employer]IAL 421.521 / / Screw Ti Lo Pro Sd 4mm 400.834 - [id number] Implanted:Qty : 7 on 06/24/2020 by Madi Kaur MD at [facility] Right: Head SY[employer]ES [employer] 400.834 / / [...] Agents on File Name Relationship Healthcare Agent [facility] cleo Shira Lam Spouse Health Care Agent Care Teams Tooling Mechanic Relationship Specialty Start Date End Date Apolinar Wayne DO [address] [facility] [place] [address] PCP - General Internal Medicine 11/15/23 documented as of this encounter
--- OUTSIDE RECORDS SUMMARY | 2024-04-10 19:06 | External Medical Summary | Summary of Care ---
Author Name Unknown Organization [facility] Address [address] [place] [address] Phone [phone] Care Team Providers Care Student Officer Name Role Phone Apolinar Wayne DO Primary Care Provider [phone] Reason for Visit * Reason Onset Date Comments Information 04/05/2024 Encounter Details Date Type Department Care Team (Late st Contact Info) Description 04/05/2024 Telephone Family Practice 65 [facility], [place] [address] [place] [address] Apolinar Wayne DO [address] [place] [address] Information Allergies Active Allergy Reactions Criticality Noted Date [...] hemoglobin A1c goal of less than 7.0% ([facility]) Use as directed every 14 [...] of major depressive disorder without prior episode ([facility]),PTSD (post-traumatic stress disorder) Take 1 [...] 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 06/27/2018 roasterman (current) use of insulin 10/27/2017 History of [...] mRNA, LNP-s, No Pre serve, 2-Dose Series (GPNX) 03/10/2021,06/07/2020,05/17/2020 COVID-19, LNP-s, No Preserve , Chandler-sucrose, Ages 12+ (Pfizer) 11/17/2021 COVID-19, MRNA-LNP, PF, 30 M CG/0.3 mL, 12 YRS AND ABOVE, IM ([facility]) 01/17/2024,03/08/2023 Covid-19, Mrna, Lnp-s, Pf, B ivalent, 30 Mcg, IM, 12 yrs and above (GPNX) 04/13/2022 H1N1 2009 Influenza, IM 12/10/2019,04/01/2009 Pneumococcal [...] 03/06/2024 Does the household have a re gular [...] are refusing to have him at the [place] home a [place]-- had a friend who was there and did not get good care- per patient. PT from [facility] home health is going out to the home tomorrow [...] be picking up the tab of whatever [facility] does not cover. She said that happened for a long time, and then all of a sudden, nothing. [facility] [place] [facility] to discuss this. She wanted advice on what facilities to look at- they are not interested in looking very far from their home. I told them both I would work on this tomorrow morning- to get recent PT/OT/ST evals from [facility]- as 1730 on a afternoon I cannot do much. I also discussed about bed availability and the upcoming [place] holiday as limiting factors. They verbalized understanding. I will be following up tomorrow. Any other ideas/recs? * Telephone Encounter - Sadie Madera LPN - 04/05/2024 4:43 PM EST Dany with speech therapy calling, Dany is with Onur and spouse. transportation maintenance worker consult has been placed. Family is requesting respite care at local half-way. Patient has had physical therapy 1/3 cancellations from patient and spouse for following 3 appts. Only had one evaluation done. Can we work together to have patient placed for respite care? Willing to go some place for under < 30 days. Thank you * Telephone Encounter - Tamiko Santos RT (R) - 04/05/2024 4:39 PM EST Dany from [facility] Speech Therapy calling regarding Denis. documented in this encounter Plan of Treatment Upcoming Encounters Date Type Department Care Team (Late st Contact Info) Description 04/09/2024 12:30 PM EST Home Visit [facility] at [facility] 132 [facility] [place] [address] Betzy Vega RN [address] [facility] [place] [address] 04/11/2024 3:45 PM EST Pharmacy Pharmacy Hematology Oncology [facility] [address] [place] [address] [facility], [facility] Hem/Onc [address] [place] [address] 04/16/2024 7:10 AM EST Laboratory Lab Mobile Phlebotomy [facility] [address] [facility] Danelle [address] [place], [place] [address] Mv, [facility] Mobile Home Draw [email or web address] [place], [place] [address] 04/17/2024 2:20 PM EST Office Visit Family Practice 65 [facility] 293 [place] [address] Apolinar Wayne, DO 293 [place] [address] 04/19/2024 10:30 AM EST Imaging Radiology [address], [place] [address] [place] [phone] 04/23/2024 7:10 AM EST Laboratory Lab Mobile Phlebotomy [facility] [address] [email or web address] [address] Mvmg, Gml Mobile Home Draw [email or web address] [place], [place] [address] 04/26/2024 9:00 AM EST Office Visit Hematology/Oncology [facility] [address] [facility], [place] [phone] Fernando Solo MD 200 [place] [address] 04/27/2024 3:00 PM EST Office Visit Family Practice 65 [facility] 293 [place] [address] Apolinar Wayne, DO 293 [place] [address] 04/30/2024 7:10 AM EST Laboratory Lab Mobile Phlebotomy [facility] [address] [email or web address] [address] Mvmg, Gml Mobile Home Draw [address] [email or web address] [address] 05/07/2024 7:10 AM EST Laboratory Lab Mobile Phlebotomy [facility] [address] [email or web address] [address] Mvmg, Gml Mobile Home Draw [address] [place] [address] 05/14/2024 7:10 AM EST Laboratory Lab Mobile Phlebotomy [facility] [email or web address] [place], [place] [address] Mvmg, Gml Mobile Home Draw [address] [facility] [place], [place] [address] 05/21/2024 7:10 AM EST Laboratory Lab Mobile Phlebotomy [facility] [email or web address] [place], [place] [address] Mvmg, Gml Mobile Home Draw [email or web address] [place], [place] [address] 05/21/2024 2:30 PM EST Office Visit Urology Garima Meyers [address] [place] [address] Michelle Rodriguez PA-C [address] [place] [address] 05/28/2024 7:10 AM EDT Laboratory Lab Mobile Phlebotomy [facility] [email or web address] [place], [place] [address] Mvmg, Gml Mobile Home Draw [address] [place], [place] [address] 06/04/2024 7:10 AM EDT Laboratory Lab Mobile Phlebotomy [facility] [email or web address] [place], [place] [address] Mvmg, Gml Mobile Home Draw [address] [facility] [place], [place] [address] 06/11/2024 7:10 AM EDT Laboratory Lab Mobile Phlebotomy [facility] [address] [email or web address] [address] Mvmg, Gml Mobile Home Draw [address] [place] [address] 06/18/2024 7:10 AM EDT Laboratory Lab Mobile Phlebotomy [facility] [email or web address] [place], [place] [address] Mvmg, Gml Mobile Home Draw [address] [place], [place] [address] Scheduled Procedures Name Priority Associated Diagnoses Date/Ti [...] this encounter Medical Devices Implanted Type Area Calender Feeder Device Identifier Shelf Expiration Date Model / Serial / Lot Graft Lyoplant 5.0x5.0cm 2x2 - [id number] Implanted:Qty : 1 on 06/24/2020 by Madi Kaur MD at [place] [facility] Right: Head B ALICEA : AESCULAP 11/18/2024 [id number] / / [id number] Graft Lyoplant 5.0x5.0cm 2x2 - [id number] Implanted:Qty : 1 on 06/24/2020 by Madi Kaur MD at OR [facility] B ALICEA : AESCULAP [id number] 11/18/2024 [id number] / [id number] / [id number] Graft Lyoplant 5.0x5.0cm 2x2 - [id number] Implanted:Qty : 1 on 06/24/2020 by Madi Kaur MD at OR [facility] Right: Head B ALICEA : AESCULAP 06/24/2020 [id number] / / [id number] Graft Lyoplant 5.0x5.0cm 2x2 - [id number] Implanted:Qty : 1 on 06/24/2020 by Madi Kaur MD at OR [facility] B ALICEA : AESCULAP [id number] 11/18/2024 [id number] / [id number] / [id number] Plate Ti Lo Pro Str 2h 421.502 - [id number] Implanted:Qty : 2 on 06/24/2020 by Madi Kaur MD at OR [facility] Right: Head SYNTHES MAXILLOFACIAL 421.502 / / Plate Bx Ti [id number] 4h 421.521 - [id number] Implanted:Qty : 1 on 06/24/2020 by Maid Kaur MD at OR [facility] Right: Head SYNTHES MAXILLOFACIAL 421.521 / / Screw Ti Lo Pro Sd 4mm 400.834 - [id number] Implanted:Qty : 7 on 06/24/2020 by Madi Kaur MD at [place] [facility] Right: Head SYNTHES MAXILLOFACIAL 400.834 / [...] Agents on File Name Relationship Healthcare Agent [facility] Communication Aimee Lam Spouse Health Care Agent Care Teams Student Officer Relationship Specialty Start Date End Date Apolinar Wayne DO [address] [place] [address] PCP - General Internal Medicine 11/15/23 documented as of this encounter
--- OUTSIDE RECORDS SUMMARY | 2024-04-10 19:06 | External Medical Summary | Summary of Care ---
Author Name Unknown Organization [facility] Address [address] [place] [address] Phone [phone] Care Team Providers Care Incident Analyst Name Role Phone Apolinar Wayne DO Primary Care Provider [phone] Reason for Visit * Reason Onset Date Comments Information 04/05/2024 Encounter Details Date Type Department Care Team (Late st Contact Info) Description 04/05/2024 Telephone Family Practice [address] [facility], [place] [address] [place] [address] Apolinar Wayne DO [address] [place] [address] Information Allergies Active Allergy Reactions Criticality Noted Date Comments Erythromycin 07/02/1998 GI upset Guaifenesin & Derivatives 03/18/1997 nucofed documented as of this encounter (statuses as of 04/05/2024) Medications BD Pen Needle Altagracia U/F 32G [...] every afternoon. (get from the [place]) 04/15/19 22 Active Vitamin D3 25 MCG (1000 UT) Oral CapsuleIndication s:general health Take 1 Capsule by mouth every evening. Active FreeStyle Aarti 2 SensorIndications :Type 2 diabetes mellitus with hemoglobin A1c goal of less than 7.0% ([facility]) Use as directed every 14 days . [...] Active Sertraline HCl 100 MG Oral Tablet (Zoloft)Garfieldo ns:Current moderate episode of major depressive disorder [...] BY MOUTH EVERY DAY 100 Tablet 3 03/22/2024 9:33 AM EST 05/29/19 24 025 Active Valtoco 10 MG Dose 10 MG/0.1ML Nasal Liquid (diazePAM)Indicat ions:Localization -related epilepsy, intractable (HCC) Administer 10 mg into nostril as needed (seizures lasting longer than 3 minutes). 1 Each 1 12/30/2023 2:07 PM EDT 12/26/19 24 Active Ondansetron HCl 8 MG Oral Tablet (Zofran)Garfieldo ns:Glioblastoma (HCC) Take 1 tablet by mouth [...] 01/17/2024 9:59 AM EDT 01/16/20 24 Active levETIRAcetam 750 MG Oral Tablet take 1 tablet by mouth every 12 hours 60 Tablet 02/20/2024 4:13 PM EST 02/19/20 24 Active Insulin Glargine 100 UNIT/ML Subcutaneous Solution (Lantus) inject 12 units Subcutaneous every 12 hours 10 mL 02/20/2024 4:13 PM EST 02/20/20 24 Active Multiple Vitamins Oral Tablet Take 1 Tablet by mouth in the morning. Active LORazepam 0.5 MG Oral Tablet (Ativan)Indicatio ns:Anxiety Take 1 Tablet by mouth 3 times a day as needed for Anxiety. 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 200 Tablet 3 04/02/19 25 Active Tamsulosin HCl 0.4 MG Oral Capsule (Flomax) Take 1 Capsule by mouth in the morning. 100 Capsule 3 04/02/19 25 Active Rivaroxaban 20 MG Oral Tablet (Xarelto)Indicati ons:History of deep venous thrombosis (DVT) of distal vein of left lower extremity,History of pulmonary embolism Take 1 Tablet by mouth daily with dinner. 30 Tablet 04/02/19 25 Active Glucerna Shake Oral Liquid [...] per 24 hours. 60 Tablet 1 04/04/19 Active Lomustine 40 MG Oral Capsule (Ceenu)Indication s:Glioblastoma (HCC) Take 4 Capsules by mouth every 6 weeks. 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 10/27/2017 History of [...] as of this encounter (statuses as of 04/05/2024) Resolved Problems Problem Noted Date Diagnosed Date [...] as of this encounter (statuses as of 04/05/2024) Immunizations Name Administration Dates Next Due COVID-19 mRNA, LNP-s, No Pre serve, 2-Dose Series (Ooolala) 03/10/2021,06/07/2020,05/17/2020 COVID-19, LNP-s, No Preserve , Chandler-sucrose, [...] of Assessment Author No 06/29/2020 4:00 PM EDPadma Delvalle RN * Do you have difficulty dressing [...] are refusing to have [place] at [place]-- had a friend who was there and did not get good care- per patient. PT from [facility] home health is going out to the [...] be picking up the tab of whatever [facility] does not cover. She said that happened for a long time, and then all of a sudden, nothing. She is going to contact the [place] rep in [place] tomorrow to discuss this. She wanted advice on what facilities to look at- they are not interested in looking very far from their home. I told them both I would work on this tomorrow morning- to get recent PT/OT/ST evals [facility] a afternoon I cannot do much. I also discussed about bed availability and the upcoming holiday as limiting factors. They verbalized understanding. I will be following up tomorrow. Any other ideas/recs? * Telephone Encounter - Sadie Madera LPN - 04/05/2024 4:43 PM EST Dany with speech therapy calling, Dany is with Onur and spouse. certified social workers in health care consult has been placed. [place] care [place] [facility]. Patient has had physical therapy 1/3 cancellations from patient and spouse for following 3 appts. Only had one evaluation done. Can we work together to have patient placed for respite care? Willing to go some place for under < 30 days. Thank you * Telephone Encounter - Tamiko Santos RT (R) - 04/05/2024 4:39 PM EST Dany from [facility] Speech Therapy calling regarding Denis. documented in this encounter Plan of Treatment Upcoming Encounters Date Type Department Care Team (Late st Contact Info) Description 04/09/2024 12:30 PM EST Home Visit [facility] at [facility] 132 [facility] [place] [address] Betzy Vega, HECTOR 132 [facility] [place] [address] 04/11/2024 3:45 PM EST Pharmacy Pharmacy Hematology Oncology [facility] [address] [place] [address] [facility], [facility] Hem/Onc [address] [place] [address] 04/16/2024 7:10 AM EST Laboratory Lab Mobile Phlebotomy [facility] [address] [facility] [place] [address] Mvmg, Gml Mobile Home Draw [address] [place] [address] 04/17/2024 2:20 PM EST Office Visit Family Practice 65 [facility], [place] [address] [place] [address] Apolinar Wayne, DO 293 [place] [address] 04/19/2024 10:30 AM EST Imaging Radiology [address] [place] [address] 04/23/2024 7:10 AM EST Laboratory Lab Mobile Phlebotomy [facility] [address] [place], [place] [address] Mvmg, Gml Mobile Home Draw [address] [facility] [place], [place] [address] 04/26/2024 9:00 AM EST Office Visit Hematology/Oncology [facility] 200 [facility], [place] [phone] Fernando Solo MD 200 [facility], [place] [address] 04/27/2024 3:00 PM EST Office Visit Family Practice [address] [place] [address] 293 [place] [address] Apolinar Wayne, DO 293 [place] [address] 04/30/2024 7:10 AM EST Laboratory Lab Mobile Phlebotomy [facility] [address] [facility] [place], [place] [address] Mvmg, Gml Mobile Home Draw [address] [facility] [place], [place] [address] 05/07/2024 7:10 AM EST Laboratory Lab Mobile Phlebotomy [facility] [address] [place], [place] [address] Mvmg, Gml Mobile Home Draw [address] [facility] [place], [place] [address] 05/14/2024 7:10 AM EST Laboratory Lab Mobile Phlebotomy [facility] [address] [place] [place], [place] [address] Mvmg, Gml Mobile Home Draw [address] [place], [place] [address] 05/21/2024 7:10 AM EST Laboratory Lab Mobile Phlebotomy [facility] [address] [place] [address] Mvmg, Gml Mobile Home Draw [address] [place] [address] 05/21/2024 2:30 PM EST Office Visit UrologGarima Garcia [address] [place] [address] Michelle Rodriguez PA-C [address] [place] [address] 05/28/2024 7:10 AM EDT Laboratory Lab Mobile Phlebotomy [facility] [address] [place], [place] [address] Mvmg, Gml Mobile Home Draw [address] [place], [place] [address] 06/04/2024 7:10 AM EDT Laboratory Lab Mobile Phlebotomy [facility] [address] [place], [place] [address] Mvmg, Gml Mobile Home Draw [address] [place] [address] 06/11/2024 7:10 AM EDT Laboratory Lab Mobile Phlebotomy [facility] [address] [place], [place] [address] Mvmg, Gml Mobile Home Draw [address] [place], [place] [address] 06/18/2024 7:10 AM EDT Laboratory Lab Mobile Phlebotomy [facility] [address] [place] [address] Mvmg, Gml Mobile Home Draw [address] [place] [address] Scheduled Procedures Name Priority Associated Diagnoses Date/Ti [...] this encounter Medical Devices Implanted Type Area Composing Room Machinist Device Identifier Shelf Expiration Date Model / Serial / Lot Graft Lyoplant 5.0x5.0cm 2x2 - [id number] Implanted:Qty : 1 on 06/24/2020 by Madi Kaur MD at [place] [facility] Right: Head B ALICEA : AESCULAP 11/18/2024 [id number] / / [id number] Graft Lyoplant 5.0x5.0cm 2x2 - [id number] Implanted:Qty : 1 on 06/24/2020 by Madi Kaur MD at [place] [facility] B ALICEA : AESCULAP [id number] 11/18/2024 [id number] / [id number] / [id number] Graft Lyoplant 5.0x5.0cm 2x2 - [id number] Implanted:Qty : 1 on 06/24/2020 by Madi Kaur MD at [place] [facility] Right: Head B ALICEA : AESCULAP 06/24/2020 [id number] / / [id number] Graft Lyoplant 5.0x5.0cm 2x2 - [id number] Implanted:Qty : 1 on 06/24/2020 by Madi Kaur MD at [place] [facility] B ALICEA : AESCULAP [id number] 11/18/2024 [id number] / [id number] / [id number] Plate Ti Lo Pro Str 2h 421.502 - [id number] Implanted:Qty : 2 on 06/24/2020 by Madi Kaur MD at [place] [facility] Right: Head SYNTHES MAXILLOFACIAL 421.502 / / Plate Bx Ti [id number] 4h 421.521 - [id number] Implanted:Qty : 1 on 06/24/2020 by Madi Kaur MD at [place] [facility] Right: Head SYNTHES MAXILLOFACIAL 421.521 / / Screw Ti Lo Pro Sd 4mm 400.834 - [id number] Implanted:Qty : 7 on 06/24/2020 by Madi Kaur MD at [place] [facility] Right: Head SYNTHES MAXILLOFACIAL [...] on File Name Relationship Healthcare Agent [facility] Communication Aimee Lam Spouse Health Care Agent [phone] (Home) Care Teams Incident Analyst Relationship Specialty Start Date End Date Apolinar Wayne DO [address] [place] [address] PCP - General Internal Medicine 11/15/23 documented as of this encounter
--- OUTSIDE RECORDS SUMMARY | 2024-04-10 19:06 | External Medical Summary | Summary of Care ---
Author Name Unknown Organization [facility] Address [address] [place] [address] Phone [phone] Care Team Providers Care Clinical Mental Health Counselor Name Role Phone Apolinar Wayne DO Primary Care Provider [phone] Reason for Visit * Reason Onset Date Comments Information 04/05/202404/05, 04/06 Encounter Details Date Type Department Care Team (Late st Contact Info) Description 04/05/2024 Telephone Family Practice [address], [place] [address] [place] [address] Apolinar Wayne DO [address] [place] [address] Information (04/05, 04/06 ) Allergies Active Allergy Reactions Criticality Noted Date Comments Erythromycin 07/02/1998 GI upset Guaifenesin & Derivatives 03/18/1997 nucofed documented as of this encounter (statuses as of 04/09/2024) Medications BD Pen Needle Altagracia U/F 32G [...] hemoglobin A1c goal of less than 7.0% ([facility]) Use as directed every 14 [...] of major depressive disorder without prior episode ([facility]),PTSD (post-traumatic stress disorder) Take 1 [...] as of this encounter (statuses as of 04/09/2024) Active Problems Problem Noted Date Diagnosed Date [...] 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 06/27/2018 alf (current) use of insulin 10/27/2017 History of [...] as of this encounter (statuses as of 04/09/2024) Resolved Problems Problem Noted Date Diagnosed Date [...] as of this encounter (statuses as of 04/09/2024) Immunizations Name Administration Dates Next Due COVID-19 mRNA, LNP-s, No Pre serve, 2-Dose Series ([facility]) 03/10/2021,06/07/2020,05/17/2020 COVID-19, LNP-s, No Preserve , Chandler-sucrose, [...] EST Left VM with medial records from [facility] to get recent PT, OT, ST records to submit to [facility] for short term inpatient rehab stay. Gave [address] [place] phone #. I know PT was just today at 11am. If they call back, please have the records faxed to [place] office and place a copy on my [...] are refusing to have him at the [place] home [place]-- had a friend who was there and did not get good care- per patient. PT from [facility] is going out to the home tomorrow [...] picking up the tab of whatever [facility] does not cover. She said that happened for a long time, and then all of a sudden, nothing. She is going to contact the [place] rep in [place] tomorrow to discuss this. She wanted advice on what facilities to look at- they are not interested in looking very far from their home. I told them both I would work on this tomorrow morning- to get recent PT/OT/ST evals from [facility] homehealth- as 1730 on a afternoon I cannot do much. I also discussed about bed availability and the upcoming holiday as limiting factors. They verbalized understanding. I will be following up tomorrow. Any other ideas/recs? * Telephone Encounter - Sadie Madera LPN - 04/05/2024 4:43 PM EST Dany with speech therapy calling, Dany is with [place] and spouse. rollway worker consult has been placed. Family is requesting respite care at local intermediate. Patient has had physical therapy 1/3 cancellations from patient and spouse for following 3 appts. Only had one evaluation done. Can we work together to have patient placed for respite care? Willing to go some place for under < 30 days. Thank you * Telephone Encounter - Tamiok Santos RT (R) - 04/05/2024 4:39 PM EST Dany from [facility] Speech Therapy calling regarding Denis. documented in this encounter Plan of Treatment Upcoming Encounters Date Type Department Care Team (Late st Contact Info) Description 04/11/2024 3:45 PM EST Pharmacy Pharmacy Hematology Oncology [address] [place] [address] [facility] Hem/Onc [address] [place] [place] [address] 04/16/2024 7:10 AM EST Laboratory Lab Mobile Phlebotomy [facility] [address] [employer] [place], [place] [address] Mvmg, Gml Mobile Home Draw [address] [facility] [place], [place] [address] 04/17/2024 2:20 PM EST Office Visit [address] 293 [facility], [place] [phone] Apolinar Wayne, 293 [facility], [place] [address] 04/19/2024 10:30 AM EST Imaging Radiology [address] [facility] [place] [address] 04/23/2024 7:10 AM EST Laboratory Lab Mobile Phlebotomy [facility] [address] [facility], [place] [address] Mvmg, Gml Mobile Home Draw 25[address] [facility], [place] [address] 04/26/2024 9:00 AM EST Office Visit Hematology/Oncology [facility] [address] [place], [place] [phone] Fernando Solo MD 200 [facility] [address] [address] [place], [place] [address] 04/27/2024 3:00 PM EST Office Visit [address] 293 [facility], [place] [phone] Apolinar Wayne, 293 [facility], [place] [address] 04/30/2024 7:10 AM EST Laboratory Lab Mobile Phlebotomy [facility] [address] [employer] [place] [address] Mvmg, Gml Mobile Home Draw [address] [place] [address] 05/07/2024 7:10 AM EST Laboratory Lab Mobile Phlebotomy [facility] [address] [place] [address] Mvmg, Gml Mobile Home Draw [address] [employer] [place] [address] 05/14/2024 7:10 AM EST Laboratory Lab Mobile Phlebotomy [facility] [address] [employer] [place] [address] Mvmg, Gml Mobile Home Draw [address] [place] [address] 05/21/2024 7:10 AM EST Laboratory Lab Mobile Phlebotomy [facility] [address] [place] [address] Mvmg, Gml Mobile Home Draw [address] [place] [address] 05/21/2024 2:30 PM EST Office Visit Urology Garima Meyers [address] [place] [address] Michelle Rodriguez PA-C [address] [place] [address] 05/28/2024 7:10 AM EDT Laboratory Lab Mobile Phlebotomy [facility] [address] [place] [address] Mvmg, Gml Mobile Home Draw [address] [place] [address] 06/04/2024 7:10 AM EDT Laboratory Lab Mobile Phlebotomy [facility] [address] [facility] [place] [address] Mvmg, Gml Mobile Home Draw [address] [facility] [place] [address] 06/11/2024 7:10 AM EDT Laboratory Lab Mobile Phlebotomy [facility] [address] [place] [address] Mvmg, Gml Mobile Home Draw [address] [facility] [place] [address] 06/18/2024 7:10 AM EDT Laboratory Lab Mobile Phlebotomy [facility] [address] [facility] [place] [address] Mvmg, Gml Mobile Home Draw [address] [facility] [place] [address] Scheduled Procedures Name Priority Associated Diagnoses Date/Ti [...] this encounter Medical Devices Implanted Type Area Scene And Lighting Design Lecturer Device Identifier Shelf Expiration Date Model / Serial / Lot Graft Lyoplant 5.0x5.0cm 2x2 - [id number] Implanted:Qty : 1 on 06/24/2020 by Madi Kaur MD at [place] [facility] Right: Head B ALICEA : AESCULAP 11/18/2024 [id number] / / [id number] Graft Lyoplant 5.0x5.0cm 2x2 - [id number] Implanted:Qty : 1 on 06/24/2020 by Madi Kaur MD at [place] [facility] B ALICEA : AESCULAP [id number] 11/18/2024 [id number] / [id number] / [id number] Graft Lyoplant 5.0x5.0cm 2x2 - [id number] Implanted:Qty : 1 on 06/24/2020 by Madi Kaur MD at [place] [facility] Right: Head B ALICEA : AESCULAP 06/24/2020 [id number] / / [id number] Graft Lyoplant 5.0x5.0cm 2x2 - [id number] Implanted:Qty : 1 on 06/24/2020 by Madi Kaur MD at [place] [facility] B ALICEA : AESCULAP [id number] 11/18/2024 [id number] / [id number] / [id number] Plate Ti Lo Pro Str 2h 421.502 - [id number] Implanted:Qty : 2 on 06/24/2020 by Madi Kaur MD at [place] [facility] Right: Head SYNTHES MAXILLOFACIAL 421.502 / / Plate Bx Ti [id number] 421.521 - [id number] Implanted:Qty : 1 on 06/24/2020 by Madi Kaur MD at [place] [facility] Right: Head SYNTHES MAXILLOFACIAL 421.521 / / Screw Ti Lo Pro Sd 4mm 400.834 - [id number] Implanted:Qty : 7 on 06/24/2020 by Madi Kaur MD at [place] [facility] Right: Head SYNTHES MAXILLOFACIAL [...] Agents on File Name Relationship Healthcare Agent [facility] Communication Aimee Lam Spouse Health Care Agent Care Teams Clinical Mental Health Counselor Relationship Specialty Start Date End Date Apolinar Wayne DO [address] [place] [address] PCP - General Internal Medicine 11/15/23 documented as of this encounter
--- OUTSIDE RECORDS SUMMARY | 2024-04-10 19:06 | External Medical Summary | Summary of Care ---
Author Name Unknown Organization [facility] Address [address] [place] [address] Phone [phone] Care Team Providers Care Brake Press Operator Name Role Phone Apolinar Wayne DO Primary Care Provider [phone] Encounter Details Date Type Department Care Team (Late st Contact Info) Description 04/02/2024 12:30 PM EST Home Visit [facility], [facility] 132 [facility] [place] [address] Betzy Vega, RN [address] [facility] [place] [address] Allergies Active Allergy Reactions Criticality Noted Date [...] by mouth every afternoon. (get from the PR) 04/15/19 Active Vitamin D3 25 MCG (1000 UT) Oral CapsuleIndication s:general health Take 1 Capsule by mouth every evening. Active FreeStyle Aarti 2 SensorIndications :Type 2 diabetes mellitus with hemoglobin A1c goal of less than 7.0% ([facility]) Use as directed every 14 days . 1 Each 11/29/19 Active Magnesium Oxide 420 MG Oral TabletIndications :general health Take 1 Tablet by mouth every evening. 12/05/19 Active Gabapentin 300 MG Oral Capsule (Neurontin) TAKE BY MOUTH ONE CAPSULE IN THE MORNING AND ONE CAPSULE AT NOON AND ONE CAPSULE BEFORE BEDTIME 300 Capsule 3 4 8:14 AM EST 03/24/19 24 025 Active Sertraline HCl 100 MG Oral Tablet (Zoloft)Dktio ns:Current moderate episode of major depressive disorder [...] MORNING AND EVENING MEALS 200 Tablet 3 4 11:53 AM EST 05/17/19 24 025 Discontin ued(Refil l) Tamsulosin HCl 0.4 MG Oral Capsule (Flomax) TAKE ONE CAPSULE BY MOUTH EVERY DAY 100 Capsule 3 5 3:36 PM EST 12/21/19 24 025 Discontin ued(Refil l) documented as of this encounter (statuses as [...] 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 06/27/2018 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 10/27/2017 History of [...] mRNA, LNP-s, No Pre serve, 2-Dose Series (Psydex) 03/10/2021,06/07/2020,05/17/2020 COVID-19, LNP-s, No Preserve , Chandler-sucrose, Ages 12+ (Pfizer) 11/17/2021 COVID-19, MRNA-LNP, PF, 30 M CG/0.3 mL, 12 YRS AND ABOVE, IM (Xcalia-Comirnaty) 01/17/2024,03/08/2023 Covid-19, Mrna, Lnp-s, Pf, B ivalent, 30 Mcg, IM, 12 yrs and above (Psydex) 04/13/2022 H1N1 2009 Influenza, IM 12/10/2019,04/01/2009 Pneumococcal [...] Sign Reading Time Taken Comments Blood Pressure 124/82 04/02/2024 11:34 AM EST Pulse 60 04/02/2024 11:34 AM EST Temperature 35.6 C (96.1 F) 04/02/2024 11:[address] Respiratory Rate 18 04/02/2024 11:34 AM EST Oxygen Saturation 96% 04/02/2024 11:34 AM EST Inhaled Oxygen Concentration - - Weight [...] in this encounter Progress Notes * Betzy eVga RN - 04/02/2024 11:19 AM EST Current Concerns: Patient seen for follow up- JOSELIN# 4 s/p [facility] 03/02/24- Orthostatic BP, hypoglycemia, Glioblastoma- status postresection([facility] ) BP cuff ordered. Not set up d/t [facility] unable to contact patient . Reached out to Lis Graham- made aware would like to get BP for monitoring. encouraged to answer phone in order to have delivered. reports 3 falls this past weekend. One of which patient hit head. Loss of balance while in shower. Encouraged to go to ER. Patient declined. Complaining of left shoulder discomfort. Raised area left shoulder. Dr. Wayne nurse made aware- Sadie Madera Likely will have imaging tomorrow versus time of day to get mobile xray today in home. Medication bottle review- refills sent to [facility]. Patient is alert and oriented. reports fatigue VS wnl Blood sugars ranging under 200- 7 day average-183 Lungs clear bilaterally Sob with moderate exertion No LE edema noted Voiding without difficulty Bowels wnl- needed PRN medication- effective Appetite good Taking fluids well. Physical Exam: Physical Exam Constitutional: Appearance: Normal appearance. Cardiovascular: Rate and Rhythm: Normal rate and regular rhythm. Pulses: Normal pulses. Pulmonary: Effort: Pulmonary effort is normal. Breath sounds: Normal breath sounds. Abdominal: General: Bowel sounds are normal. Palpations: Abdomen is soft. Musculoskeletal: General: Normal range of motion. Skin: General: Skin is warm and dry. Capillary Refill: Capillary refill takes 2 to 3 seconds. Neurological: General: No focal deficit present. Mental Status: He is alert and oriented to person, place, and time. Psychiatric: Mood and Affect: Mood normal. Behavior: Behavior normal. Review of Systems: Review of Systems Constitutional: Negative. HENT: Negative. Respiratory: Positive for shortness of breath. Cardiovascular: Negative. Gastrointestinal: Negative. Genitourinary: Negative. Musculoskeletal: Positive for gait problem. Skin: Negative. Hematological: Negative. Psychiatric/Behavioral: Negative. Care Plan Goal Progress: Patient will remain free of falls. (Progressing) Start: 02/29/24 Expected End: 06/28/24 Patient will achieve & maintain fluid & electrolyte balance. (Progressing) Start: 12/13/23 Expected End: 08/03/24 Orders Placed: No orders of the defined types were placed in this encounter. Medications Given: Care Gaps: Care Gaps Care gaps closed this contact: Education (04/02/24 585) Type of education: Clinical/disease (04/02/241705) documented in this encounter Plan of Treatment Upcoming Encounters Date Type Department Care Team (Late st Contact Info) Description 04/09/2024 12:30 PM EST Home Visit [facility] [address] [place] [address] Betzy Vega, HCETOR [address] [place] [address] 04/11/2024 3:45 PM EST Pharmacy Pharmacy Hematology [facility] [address] [place] [address] [facility] Hem/Onc [address] [place] [address] 04/16/2024 7:10 AM EST Laboratory Lab Mobile Phlebotomy [facility] [address] [place] [address] Mvmg, Gml Mobile Home Draw [address] [facility] [place] [address] 04/17/2024 2:20 PM EST Office Visit Family [address] 293 [facility], [place] [address] Apolinar Wayne, 293 [place] [address] 04/19/2024 10:30 AM EST Imaging Radiology [address] [place] [address] 04/23/2024 7:10 AM EST Laboratory Lab Mobile Phlebotomy [facility] [address] [place] [address] Mvmg, Gml Mobile Home Draw [address] [place], [place] [address] 04/26/2024 9:00 AM EST Office Visit Hematology/Oncology [facility] [place] [address] [place] [phone] Fernando Solo MD [address] [place], [place] [address] 04/27/2024 3:00 PM EST Office Visit Family Practice [address], [place] [address] [place] [address] Apolinar Wayne, 293 [place] [address] 04/30/2024 7:10 AM EST Laboratory Lab Mobile Phlebotomy [facility] [address] [place] [address] Mvmg, Gml Mobile Home Draw [address] [address] 05/07/2024 7:10 AM EST Laboratory Lab Mobile Phlebotomy [facility] [address] [place] [address] Mvmg, Gml Mobile Home Draw [address] [place] [address] 05/14/2024 7:10 AM EST Laboratory Lab Mobile Phlebotomy [facility] [address] [place] [address] Mvmg, Gml Mobile Home Draw [address] [place] [address] 05/21/2024 7:10 AM EST Laboratory Lab Mobile Phlebotomy [facility] [address] [facility] [place] [address] Mvmg, Gml Mobile Home Draw [address] [place] [address] 05/21/2024 2:30 PM EST Office Visit Urology Garima Meyers [address] [facility] [address] [place] [address] Michelle Rodriguez PA-C [address] [place] [address] 05/28/2024 7:10 AM EDT Laboratory Lab Mobile Phlebotomy [facility] [address] [facility], [place] [address] Mvmg, Gml Mobile Home Draw [address] [place] [address] 06/04/2024 7:10 AM EDT Laboratory Lab Mobile Phlebotomy [facility] [address] [place] [address] Mvmg, Gml Mobile Home Draw [address] [place], [place] [address] 06/11/2024 7:10 AM EDT Laboratory Lab Mobile Phlebotomy [facility] [address] [place], [place] [address] Mvmg, Gml Mobile Home Draw [address] [place], [place] [address] 06/18/2024 7:10 AM EDT Laboratory Lab Mobile Phlebotomy [facility] [address] [place], [place] [address] Mvmg, Gml Mobile Home Draw [address] [place], [place] [address] Scheduled Procedures Name Priority Associated Diagnoses Date/Ti [...] this encounter Medical Devices Implanted Type Area Tinsel Machine Operator Device Identifier Shelf Expiration Date Model / Serial / Lot Graft Lyoplant 5.0x5.0cm 2x2 - [id number] Implanted:Qty : 1 on 06/24/2020 by Madi Kaur MD at [place] [facility] Right: Head B ALICEA : AESCULACleo 11/18/2024 [id number] / / [id number] Graft Lyoplant 5.0x5.0cm 2x2 - [id number] Implanted:Qty : 1 on 06/24/2020 by Madi Kaur MD at [place] [facility] B ALICEA : AESCULAP [id number] 11/18/2024 [id number] / [id number] / [id number] Graft Lyoplant 5.0x5.0cm 2x2 - [id number] Implanted:Qty : 1 on 06/24/2020 by Madi Kaur MD at [place] [facility] Right: Head B ALICEA : AESCULAP 06/24/2020 [id number] / / [id number] Graft Lyoplant 5.0x5.0cm 2x2 - [id number] Implanted:Qty : 1 on 06/24/2020 by Madi Kaur MD at [place] [facility] B ALICEA : KEESHIVANI [id number] 11/18/2024 [id number] / [id number] / [id number] Plate Ti Lo Pro Str 2h 421.502 - [id number] Implanted:Qty : 2 on 06/24/2020 by Madi Kaur MD at [place] [facility] Right: Head SYNTHES MAXILLOFACIAL 421.502 / / Plate Bx Ti [id number] 4h 421.521 - [id number] Implanted:Qty : 1 on 06/24/2020 by Madi Kaur MD at [place] [facility] Right: Head SYNTHES MAXILLOFACIAL 421.521 / / Screw Ti Lo Pro Sd 4mm 400.834 - [id number] Implanted:Qty : 7 on 06/24/2020 by Madi Kaur MD at [place] [facility] Right: Head SYNTHES MAXILLOFACIAL 400.834 / / [...] File Name Relationship Healthcare Agent [facility] cleo Shira Lam Spouse Health Care Agent Care Teams Brake Press Operator Relationship Specialty Start Date End Date Apolinar Wayne DO [address] [place] [address] PCP - General Internal Medicine 11/15/23 documented as of this encounter
--- OUTSIDE RECORDS SUMMARY | 2024-04-10 19:06 | External Medical Summary | Summary of Care ---
Author Name Unknown Organization [facility] Address [address] [place] [address] Phone [phone] Care Team Providers Care Bull Wheel Worker Name Role Phone Apolinar Wayne DO Primary Care Provider [phone] Reason for Visit * Reason Onset Date Comments Information 04/05/202404/05, 04/06 Encounter Details Date Type Department Care Team (Late st Contact Info) Description 04/05/2024 Telephone Family Practice [address], [place] [address] [place] [address] Apolinar Wayne DO 293 [place] [address] Information (04/05, 04/06 ) Allergies [...] hemoglobin A1c goal of less than 7.0% ([facility]) Use as directed every 14 days . [...] of major depressive disorder without prior episode ([facility]),PTSD (post-traumatic stress disorder) Take 1 Tablet by [...] 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 06/27/2018 half-way (current) use of insulin 10/27/2017 History of [...] mRNA, LNP-s, No Pre serve, 2-Dose Series ([employer]) 03/10/2021,06/07/2020,05/17/2020 COVID-19, LNP-s, No Preserve , Chandler-sucrose, [...] EST Left VM with medial records from [facility] to get recent PT, OT, ST records to submit to [facility] for short term inpatient rehab stay. Gave [facility] [place] phone #. I know PT was just today at 11am. If they call back, please have the records faxed to [place] office and place a copy on my [...] are refusing to have him at the [place] home a [place]-- had a friend who was there and did not get good care- per patient. PT from [facility] is going out to the home tomorrow [...] be picking up the tab of whatever [facility] does not cover. She said that happened for a long time, and then all of a sudden, nothing. She is going to contact the [place] rep in [place] tomorrow to discuss this. She wanted advice on what facilities to look at- they are not interested in looking very far from their home. I told them both I would work on this tomorrow morning- to get recent PT/OT/ST evals from [facility] homehealth- as 1730 on a afternoon I cannot do much. I also discussed about bed availability and the upcoming holiday as limiting factors. They verbalized understanding. I will be following up tomorrow. Any other ideas/recs? * Telephone Encounter - Sadie Madera LPN - 04/05/2024 4:43 PM EST Dany with speech therapy calling, Dany is with Onur and spouse. 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 Family is requesting respite care at local detention. Patient has had physical therapy 1/3 cancellations from patient and spouse for following 3 appts. Only had one evaluation done. Can we work together to have patient placed for respite care? Willing to go some place for under < 30 days. Thank you * Telephone Encounter - Tamiko Santos RT (R) - 04/05/2024 4:39 PM EST Dany from [facility] Speech Therapy calling regarding Denis. documented in this encounter Plan of Treatment Upcoming Encounters Date Type Department Care Team (Late st Contact Info) Description 04/09/2024 12:30 PM EST Home Visit erwiner at [facility] [address] [place] [address] Betzy Vega, HECTOR [address] [place] [address] 04/11/2024 3:45 PM EST Pharmacy Pharmacy Hematology Oncology [facility] [address] [place] [address] [facility], [facility] Hem/Onc [address] [place] [address] 04/16/2024 7:10 AM EST Laboratory Lab Mobile Phlebotomy [facility] [address] [employer] [address] [place] [address] Mvmg, Gml Mobile Home Draw [address] [facility] [place] [address] 04/17/2024 2:20 PM EST Office Visit Family [address] 293 [facility], [place] [address] Apolinar Wayne, 293 [place] [address] 04/19/2024 10:30 AM EST Imaging Radiology [address] [place] [address] 04/23/2024 7:10 AM EST Laboratory Lab Mobile Phlebotomy [facility] [address] [employer] [place] [address] Mvmg, Gml Mobile Home Draw [address] [employer] [place], [place] [address] 04/26/2024 9:00 AM EST Office Visit Hematology/Oncology [facility] [place] [address] [place] [phone] Fernando Solo MD [address] [place], [place] [address] 04/27/2024 3:00 PM EST Office Visit Family Practice [address], [place] [address] [place] [address] Apolinar Wayne, 293 [place] [address] 04/30/2024 7:10 AM EST Laboratory Lab Mobile Phlebotomy [facility] [address] [employer] [place] [address] Mvmg, Gml Mobile Home Draw [address] [employer] [place] [address] 05/07/2024 7:10 AM EST Laboratory Lab Mobile Phlebotomy [facility] [address] [employer] [place] [address] Mvmg, Gml Mobile Home Draw [address] [employer] [employer] [place] [address] 05/14/2024 7:10 AM EST Laboratory Lab Mobile Phlebotomy M[facility] [address] [employer] [place] [address] Mvmg, Gml Mobile Home Draw [address]20 [facility] [place] [address] 05/21/2024 7:10 AM EST Laboratory Lab Mobile Phlebotomy M[facility] [address] [place] [address] Mvmg, Gml Mobile Home Draw [address] [facility] [place] [address] 05/21/2024 2:30 PM EST Office Visit Urology Garima Meyers [address] [facility] [address] [place] [address] Michelle Rodriguez PA-C 27 [place] [address] 05/28/2024 7:10 AM EDT Laboratory Lab Mobile Phlebotomy [facility] [address] [facility], [place] [address] Mvmg, Gml Mobile Home Draw [address]20 [facility] [place] [address] 06/04/2024 7:10 AM EDT Laboratory Lab Mobile Phlebotomy [facility] [address] [place] [address] Mvmg, Gml Mobile Home Draw [address] [place], [place] [address] 06/11/2024 7:10 AM EDT Laboratory Lab Mobile Phlebotomy [facility] [address] [place], [place] [address] Mvmg, Gml Mobile Home Draw [address] [place], [place] [address] 06/18/2024 7:10 AM EDT Laboratory Lab Mobile Phlebotomy [facility] [address] [place], [place] [address] Mvmg, Gml Mobile Home Draw [address] [place], [place] [address] Scheduled Procedures Name Priority Associated Diagnoses Date/Ti [...] this encounter Medical Devices Implanted Type Area Scheduler Device Identifier Shelf Expiration Date Model / Serial / Lot Graft Lyoplant 5.0x5.0cm 2x2 - [id number] Implanted:Qty : 1 on 06/24/2020 by Madi Kaur [place] [facility] [place]: Head B ALICEA : AESCULACleo 11/18/2024 [id number] / / [id number] Graft Lyoplant 5.0x5.0cm 2x2 - [id number] Implanted:Qty : 1 on 06/24/2020 by Madi Kaur MD at [place] [facility] B ALICEA : AESCULAP [id number] 11/18/2024 [id number] / [id number] / [id number] Graft Lyoplant 5.0x5.0cm 2x2 - [id number] Implanted:Qty : 1 on 06/24/2020 by Madi Kaur MD at [place] [facility] [place] Right: Head B ALICEA : AESCULAP 06/24/2020 [id number] / / [id number] Graft Lyoplant 5.0x5.0cm 2x2 - [id number] Implanted:Qty : 1 on 06/24/2020 by Madi Kaur MD at [place] [facility] [place] B ALICEA : KEESHIVANI [id number] 11/18/2024 [id number] / [id number] / [id number] Plate Ti Lo Pro Str 2h 421.502 - [id number] Implanted:Qty : 2 on 06/24/2020 by Madi Kaur MD at [place] [facility] Right: Head SYNTHES MAXILLOFACIAL 421.502 / / Plate Bx Ti [id number] 4h 421.521 - [id number] Implanted:Qty : 1 on 06/24/2020 by Madi Kaur MD at [place] [facility] [place] Right: Head SYNTHES MAXILLOFACIAL 421.521 / / Screw Ti Lo Pro Sd 4mm 400.834 - [id number] Implanted:Qty : 7 on 06/24/2020 by Madi Kaur MD at [place] [facility] Right: Head SYNTHES MAXILLOFACIAL [...] Agents on File Name Relationship Healthcare Agent [facility] cleo Shira Lam Spouse Health Care Agent Care Teams Bull Wheel Worker Relationship Specialty Start Date End Date Apolinra Wayne DO [address] [facility] [place] [address] PCP - General Internal Medicine 11/15/23 documented as of this encounter
--- OUTSIDE RECORDS SUMMARY | 2024-04-10 19:06 | External Medical Summary | Summary of Care ---
Author Name Unknown Organization [facility] Address [address] [place] [address] Phone [phone] Care Team Providers Care Condenser Tester Name Role Phone Apolinar Wayne DO Primary Care Provider [phone] Encounter Details Date Type Department Care Team (Late st Contact Info) Description 04/09/2024 Population Health External Data Unspecified Department Allergies Active Allergy Reactions Criticality Noted Date [...] hemoglobin A1c goal of less than 7.0% ([facility]) Use as directed every 14 days . [...] 4 Capsule 04/05/2024 3:20 PM EST 04/04/19 25 Active documented as of this encounter (statuses [...] 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 06/27/2018 [facility] (current) use of insulin 10/27/2017 History of [...] mRNA, LNP-s, No Pre serve, 2-Dose Series ([employer]) 03/10/2021,06/07/2020,05/17/2020 COVID-19, LNP-s, No Preserve , Chandler-sucrose, [...] of Assessment Author No 06/29/2020 5:01 AM EDT Sa valentine Onofre RN * Are you blind or do [...] valentine Morse RN documented in this encounter Plan of Treatment Upcoming Encounters Date Type Department Care Team (Late st Contact Info) Description 04/11/2024 3:45 PM EST Pharmacy Pharmacy Hematology Oncology [facility] [address] [place] [address] [facility], [facility] Hem/Onc [address] [place] [address] 04/16/2024 7:10 AM EST Laboratory Lab Mobile Phlebotomy [facility] [address] [place] [address] Mvmg, Gml Mobile Home Draw [address] [place] [address] 04/17/2024 2:20 PM EST Office Visit Family Practice [address], [place] [address] [place] [address] Apolinar Wayne, DO [address] [place] [address] 04/19/2024 10:30 AM EST Imaging Radiology [address] [place] [phone] 04/23/2024 7:10 AM EST Laboratory Lab Mobile Phlebotomy [facility] [address] [place], [place] [address] Mvmg, Gml Mobile Home Draw [address] [place], [place] [address] 04/26/2024 9:00 AM EST Office Visit Hematology/Oncology [facility] 200 [facility] [place], [place] [phone] Fernando Solo MD 200 [facility], [place] [address] 04/27/2024 3:00 PM EST Office Visit Family Practice [address] [place] [address] 293 [place] [address] Apolinar Wayne DO 293 [facility] [place], [place] [address] 04/30/2024 7:10 AM EST Laboratory Lab Mobile Phlebotomy [facility] [address] [place], [place] [address] Mvmg, Gml Mobile Home Draw [address] [place], [place] [address] 05/07/2024 7:10 AM EST Laboratory Lab Mobile Phlebotomy [facility] [address] [place], [place] [address] Mvmg, Gml Mobile Home Draw [address] [place], [place] [address] 05/14/2024 7:10 AM EST Laboratory Lab Mobile Phlebotomy [facility] [address] [place], [place] [address] Mvmg, Gml Mobile Home Draw [address] [place], [place] [address] 05/21/2024 7:10 AM EST Laboratory Lab Mobile Phlebotomy [facility] [address] [place], [place] [address] Mvmg, Gml Mobile Home Draw [address] [place], [place] [address] 05/21/2024 2:30 PM EST Office Visit Urology Garima Meyers [address] [place] [address] Michelle Rodriguez PA-C [address] [place] [address] 05/28/2024 7:10 AM EDT Laboratory Lab Mobile Phlebotomy [facility] [address] [place] [address] Mvmg, Gml Mobile Home Draw [address] [place], [place] [address] 06/04/2024 7:10 AM EDT Laboratory Lab Mobile Phlebotomy [facility] [address] [place] [address] Mvmg, Gml Mobile Home Draw [address] [place], [place] [address] 06/11/2024 7:10 AM EDT Laboratory Lab Mobile Phlebotomy [facility] [address] [place], [place] [address] Mvmg, Gml Mobile Home Draw [address] [place], [place] [address] 06/18/2024 7:10 AM EDT Laboratory Lab Mobile Phlebotomy [facility] [address] [place], [place] [address] Mvmg, Gml Mobile Home Draw [address] [place], [place] [address] Scheduled Procedures Name Priority Associated Diagnoses Date/Ti [...] this encounter Medical Devices Implanted Type Area Systems Testing Laboratory Technician Device Identifier Shelf Expiration Date Model / Serial / Lot Graft Lyoplant 5.0x5.0cm 2x2 - [id number] Implanted:Qty : 1 on 06/24/2020 [place] [facility] [place] Head B ALICEA : AESCULAP 11/18/2024 [id number] / / [id number] Graft Lyoplant 5.0x5.0cm 2x2 - [id number] Implanted:Qty : 1 on 06/24/2020 by Madi Kaur [place] [facility] ALICEA : AESCULAP [id number] 11/18/2024 [id number] / [id number] / [id number] Graft Lyoplant 5.0x5.0cm 2x2 - [id number] Implanted:Qty : 1 on 06/24/2020 by Madi Kaur [place] [facility]: Head B ALICEA : AESCULAP 06/24/2020 [id number] / / [id number] Graft Lyoplant 5.0x5.0cm 2x2 - [id number] Implanted:Qty : 1 on 06/24/2020 by Madi Kaur [place] [facility] ALICEA : AESCULAP [id number] 11/18/2024 [id number] / [id number] / [id number] Plate Ti Lo Pro Str 2h 421.502 - [id number] Implanted:Qty : 2 on 06/24/2020 by Madi Kaur [place] [facility] [place]: Head SYNTHES MAXILLOFACIAL 421.502 / / Plate Bx Ti [id number] 4h 421.521 - [id number] Implanted:Qty : 1 on 06/24/2020 by Madi Kaur [place] [facility] [place]: Head SYNTHES MAXILLOFACIAL 421.521 / / Screw Ti Lo Pro Sd 4mm 400.834 - [id number] Implanted:Qty : 7 on 06/24/2020 by Madi Kaur [place] [facility]: Head SYNTHES MAXILLOF[employer]IAL 400.834 / / [...] Lam Spouse Health Care Agent Care Teams Condenser Tester Relationship Specialty Start Date End Date Apolinar Wayne DO [address] [place] [address] PCP - General Internal Medicine 11/15/23 documented as of this encounter
--- OUTSIDE RECORDS SUMMARY | 2024-04-10 19:06 | External Medical Summary | Summary of Care ---
Author Name Unknown Organization [facility] Address [address] [place] [address] Phone [phone] Care Team Providers Care Water Filterer Helper Name Role Phone Apolinar Wayne DO Primary Care Provider [phone] Reason for Visit * Reason Onset Date Comments Information 04/05/2024 Encounter Details Date Type Department Care Team (Late st Contact Info) Description 04/05/2024 Telephone Family Practice 65 [facility] [place] [address] [place] [address] Apolinar Wayne DO 293 [place] [address] Information Allergies Active Allergy Reactions [...] hemoglobin A1c goal of less than 7.0% ([facility]) Use as directed every 14 days . 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 10/27/2017 History [...] mRNA, LNP-s, No Pre serve, 2-Dose Series ([employer]) 03/10/2021,06/07/2020,05/17/2020 COVID-19, LNP-s, No Preserve , Chandler-sucrose, Ages 12+ ([employer]) 11/17/2021 COVID-19, MRNA-LNP, PF, 30 M CG/0.3 mL, 12 YRS AND ABOVE, IM ([facility]) 01/17/2024,03/08/2023 Covid-19, Mrna, Lnp-s, Pf, B ivalent, 30 Mcg, IM, 12 yrs and above ([employer]) 04/13/2022 H1N1 2009 Influenza, IM 12/10/2019,04/01/2009 Pneumococcal [...] EST Left VM with medial records from [facility] to get recent PT, OT, ST records to submit to [facility] for short term inpatient rehab stay. Gave [facility] [place] phone #. I know PT was just today at 11am. If they call back, please have the records faxed to [place] office and place a copy on my [...] are refusing to have him at the [place] home a [place]-- had a friend who was there and did not get good care- per patient. PT from [facility] is going out to the home [...] picking up the tab of whatever [facility] does not cover. She said that happened for a long time, and then all of a sudden, nothing. She is going to contact the [place] rep in [place] tomorrow to discuss this. She wanted advice on what facilities to look at- they are not interested in looking very far from their home. I told them both I would work on this tomorrow morning- to get recent PT/OT/ST evals from [facility] homehealth- as 1730 on a afternoon I cannot do much. I also discussed about bed availability and the upcoming [facility] holiday as limiting factors. They verbalized understanding. I will be following up tomorrow. Any other ideas/recs? * Telephone Encounter - Sadie Madera LPN - 04/05/2024 4:43 PM EST Dany with speech therapy calling, Dany is with Onur and spouse. skip pit worker consult has been placed. Family is requesting respite care at local fpc. Patient has had physical therapy 1/3 cancellations [...] Description 04/09/2024 12:30 PM EST Home Visit [facility], [address] [place] [address] Betzy Vega RN [address] [place] [address] 04/11/2024 3:45 PM EST Pharmacy Pharmacy Hematology Oncology [facility] [address] [place] [address] [address] [facility] Hem/Onc [address] [place] [address] 04/16/2024 7:10 AM EST Laboratory Lab Mobile Phlebotomy [facility] [address] [employer] [place] [address] Mvmg, Gml Mobile Home Draw 2520 [facility] [place] [address] 04/17/2024 2:20 PM EST Office Visit Family Practice [address] [place] [address] [facility] [address] Apolinar [facility] DO 293 [facility] [address] 04/19/2024 10:30 AM EST Imaging Radiology [address] [place] [address] 04/23/2024 7:10 AM EST Laboratory Lab Mobile Phlebotomy M[facility] [address] [place] [address] Mvmg, Gml Mobile Home Draw 2520 [facility] [place], [place] [address] 04/26/2024 9:00 AM EST Office Visit Hematology/Oncology [facility] de[facility] [place] [address] [place] [phone] Fernando Sloo MD [address] [place] [address] 04/27/2024 3:00 PM EST Office Visit Family [address] 293 [facility], [place] [address] Apolinar Wayne, DO 293 [place] [address] 04/30/2024 7:10 AM EST Laboratory Lab Mobile Phlebotomy M[facility] [address] [place] [address] Mvmg, Gml Mobile Home Draw [address] [place] [address] 05/07/2024 7:10 AM EST Laboratory Lab Mobile Phlebotomy M[facility] [address] [place] [address] Mvmg, Gml Mobile Home Draw 2520 [place] [address] 05/14/2024 7:10 AM EST Laboratory Lab Mobile Phlebotomy M[facility] [address] [place] [address] Mvmg, Gml Mobile Home Draw [address] [place] [address] 05/21/2024 7:10 AM EST Laboratory Lab Mobile Phlebotomy MVM[facility] [address] [place] [address] Mvmg, Gml Mobile Home Draw 2520 [place] [address] 05/21/2024 2:30 PM EST Office Visit Urology Garima Meyers [address] [facility] [address] [place] [address] Michelle Rodriguez PA-C [address] [place] [address] 05/28/2024 7:10 AM EDT Laboratory Lab Mobile Phlebotomy M[facility] [address] [facility], [place] [address] Mvmg, Gml Mobile Home Draw 2520 [facility], [place] [address] 06/04/2024 7:10 AM EDT Laboratory Lab Mobile Phlebotomy M[facility] [address] [place] [address] Mvmg, Gml Mobile Home Draw [address] [place], [place] [address] 06/11/2024 7:10 AM EDT Laboratory Lab Mobile Phlebotomy M[facility] [address] [place], [place] [address] Mvmg, Gml Mobile Home Draw [address] [place], [place] [address] 06/18/2024 7:10 AM EDT Laboratory Lab Mobile Phlebotomy M[facility] [address] [place], [place] [address] Mvmg, Gml Mobile Home Draw [address] [facility] [address] [place], [place] [address] Scheduled Procedures Name Priority Associated Diagnoses Date/Ti [...] this encounter Medical Devices Implanted Type Area Ingot Header Device Identifier Shelf Expiration Date Model / Serial / Lot Graft Lyoplant 5.0x5.0cm 2x2 - [id number] Implanted:Qty : 1 on 06/24/2020 by Madi Kaur MD at [place] [facility] [place] Right: Head B ALICEA : AESCULAP 11/18/2024 [id number] / / [id number] Graft Lyoplant 5.0x5.0cm 2x2 - [id number] Implanted:Qty : 1 on 06/24/2020 by Madi Kaur MD at [place] [facility] [place] B ALICEA : AESCULAP [id number] 11/18/2024 [id number] / [id number] / [id number] Graft Lyoplant 5.0x5.0cm 2x2 - [id number] Implanted:Qty : 1 on 06/24/2020 by Madi Kaur MD at [place] [facility] [place] Right: Head B ALICEA : AESCULAP 06/24/2020 [id number] / / [id number] Graft Lyoplant 5.0x5.0cm 2x2 - [id number] Implanted:Qty : 1 on 06/24/2020 by Madi Kaur MD at [place] [facility] [place] B ALICEA : ARIAN [id number] 11/18/2024 [id number] / [id number] / [id number] Plate Ti Lo Pro Str 2h 421.502 - [id number] Implanted:Qty : 2 on 06/24/2020 by Madi Kaur MD at [place] [facility] [place] Right: Head SYNTHES MAXILLOFACIAL 421.502 / / Plate Bx Ti [id number] 4h 421.521 - [id number] Implanted:Qty : 1 on 06/24/2020 by Madi Kaur MD at [place] [facility] [place] Right: Head SYNTHES MAXILLOFACIAL 421.521 / / Screw Ti Lo Pro Sd 4mm 400.834 - [id number] Implanted:Qty : 7 on 06/24/2020 by Madi Kaur MD at [place] [facility] [place] Right: Head SYNTHES [...] Agents on File Name Relationship Healthcare Agent Branden marcos Lam Spouse Health Care Agent Care Teams Water Filterer Helper Relationship Specialty Start Date End Date Apolinar Wayne DO [address] [place] [address] PCP - General Internal Medicine 11/15/23 documented as of this encounter
--- OUTSIDE RECORDS SUMMARY | 2024-04-10 19:07 | External Medical Summary | Summary of Care ---
Author Name Unknown Organization [facility] Address [address] [place] [address] Phone [phone] Care Team Providers Care Varnish Supervisor Name Role Phone Apolinar Wayne DO Primary Care Provider [phone] Reason for Visit * Reason Comments Medication Management * Evaluate & Treat - Unlimited Visits (Within 3 days (urgent)) - Authorized Specialty Diagnoses / Procedures Referred By Andrez t Referred To Contact Pharmacist / Pharmacy Diagnoses Glioblastoma (HCC) Carli Tao, [facility] [address] [place] [address] Phone: tel: fax: Referral ID Status Reason Start Date Expiration Date Visits Requested Visits Authorized [id number] Authorized Specialty Services Required 04/04/2024 99 99 Encounter Details Date Type Department Care Team (Late st Contact Info) Description 04/04/2024 3:45 PM EST Pharmacy Pharmacy Hematology Oncology [facility] [address] [place] [address] [facility], [facility] Hem/Onc [address] [place], [place] [id number] Glioblastoma (HCC)* Allergies Active Allergy Reactions Criticality Noted Date Comments Erythromycin 07/02/1998 GI upset Guaifenesin & Derivatives 03/18/1997 nucofed documented as of this encounter (statuses as of 04/04/2024) Medications BD Pen Needle Altagracia U/F 32G [...] by mouth every afternoon. (get from the [place]) 04/15/19 22 Active Vitamin D3 25 MCG (1000 UT) Oral CapsuleIndication s:general health Take 1 Capsule by mouth every evening. Active FreeStyle Aarti 2 SensorIndications :Type 2 diabetes mellitus with hemoglobin A1c goal of less than 7.0% ([facility]) Use as directed every 14 days [...] of major depressive disorder without prior episode ([facility]),PTSD (post-traumatic stress disorder) Take 1 Tablet by [...] 02/20/20 24 Active Additional Information Patient taking differently:Subcutaneous,10 units daily, Reported on 04/03/2024 Multiple Vitamins Oral Tablet Take 1 Tablet [...] Take on an empty stomach 4 Capsule 04/04/19 25 Active documented as of this encounter (statuses as of 04/04/2024) Active Problems Problem Noted Date Diagnosed Date [...] 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 FAM HX-ISCHEM HEART DIS 08/01/1998 050 09/2017 PURE HYPERCHOLESTEROLEM 08/01/199802/18 Overview (03/04/2009): Per Lipid Taxonomy. documented as of this encounter (statuses as of 04/04/2024) Immunizations Name Administration Dates Next Due COVID-19 mRNA, LNP-s, No Pre serve, 2-Dose Series (Cyrba) 03/10/2021,06/07/2020,05/17/2020 COVID-19, LNP-s, No Preserve , Chandler-sucrose, [...] of Assessment Author No 06/29/2020 4:00 PM KEMART Padma Wilcox RN * Do you have [...] documented in this encounter Progress Notes * Sharon Perez, [facility] - 04/04/2024 8:02 AM EST MEDICATION THERAPY MANAGEMENT LOMUSTINE TREATMENT PROGRESS NOTE Denis Lam [id number] Patient Phone Numbers : Aimee Communication: Spoke to: Treatment: Medication: Lomustine (Gleostine, CCNU) Indication/Staging/Diagnosis Code: Glioblastoma, WHO Grade IV, IDH WT, MGMT methyldated, C71.9 Dose Basis: 90 mg/m2 - 90 mg/m2 * 2.01 m2 (04/03/24) = 180 mg Dose: 160 mg (capped) PO once every 6 weeks Administration: empty stomach at bedtime Start Date: TBD Primary Paint Formulator/Oncologist: Dr. Ashu Solo Supportive Care Meds: Ondansetron Docusate Prophylactic Meds: PJP ppx for ALC < 0.5 Relevant Chronic Medications: Category Medications Pertinent Notes Antihypertensives Amlodipine 10 mg PO daily Carvedilol 3.125 mg PO BID Losartan 100 mg PO daily Antidiabetic Empagliflozin 25 mg PO daily Anticoagulation Rivaroxaban 20 mg PO daily Cycle Dates C1 TBD C2 TBD Treatment History: Resection 06/24/20 TMZ+RT 08/21-10/02/20 Temodar x 33 cycles 11/17/20-11/30/23 Assessment and plan: Per review of notes, patient proceeding with surgery on 01/30 @ [facility] Lomustine start is on HOLD due to surgery 02/29/24: Per message received patient is now home. Plan to see Dr Solo in 1-2 weeks and tentativeplan to start lomustine. Per review of referral, [facility] was sending pharmacy sloan application to patient prior to his surgery. Noted patient was willing to pay out of pocket for first copay. Sent follow uptelephone encounter to start process of assistance, requested patient apply to [facility] adolescent coordinator free drug 03/07: spoke to Aimee about [facility] PAP. She will fill out patient portion and fax along with income documents directly to [facility]. Shad Staley will also call aimee to see if they would qualify for pharmacy sloan Confirmed with [facility] that rx sent on 01/05 was not dispensed since treatment was placed on hold till after surgery 03/15/24: Per discussion with Dr. Solo, continue to HOLD/delay CCNU start due to decline in performance status. Pt to have repeat brain scan in 1 month - if pt has disease progression will consider starting CCNU 03/19/24: received message from provider/nurse that patient wishes to start lomustine 03/30/23: pt approved for pharmacy sloan, and will have $185 copay after that which was agreeable to Baseline labs 03/20 within parameters to start treamtent TT-ed Dr. Solo to sign beacon plan. Orders released to pharmacy Spoke to , Aimee to provide education Antiemetics 30 - 60 min prior to lomustine Admin/dosing of lomustine Weekly labs -GML referral placed Plan for 04/09/24Tuesday start Aimee had additional questions regarding treatment efficacy and next line option. Advised to discuss at next OV with Dr. Solo Follow up: 1 week Sharon Perez, PharmD, BCOP Ambulatory Clinical Pharmacist | Oral Chemotherapy [facility] 04/04/2024, 11:12 AM Monitoring Parameters: Estimated CrCl Serum creatinine: 0.8 mg/dL 03/20/24 1614 Estimated creatinine clearance: 82.4 mL/min Hepatitis panel Complete 02/02/21 Not immune to hepatitis B virus Suggested lab monitoring CBCd weekly and CMP prior to each cycle Treatment Parameters Please refer to PI Pertinent Labs: documented in this encounter Plan of Treatment Upcoming Encounters Date Type Department Care Team (Late st Contact Info) Description 04/09/2024 12:30 PM EST Home Visit [facility] [address] [place] [address] Betzy Vega, HECTOR [address] [place] [address] 04/11/2024 3:45 PM EST Pharmacy Pharmacy Hematology Oncology [facility] [place] [address] [place] [address] [facility], [facility] Hem/Onc [address] [place] [address] 04/17/2024 2:20 PM EST Office Visit Family Practice [address] [place] [address] [address] [place] [address] Apolinar Wayne, DO [address] [place] [address] 04/19/2024 10:30 AM EST Imaging Radiology [address] [facility] [place] [address] 04/26/2024 9:00 AM EST Office Visit Hematology/Oncology [facility] [address] [place] [address] Fernando Solo MD [address] [place] [address] 04/27/2024 3:00 PM EST Office Visit [facility] [address] [place] [address] Apolinar Wayne, DO [address] [place] [address] 05/21/2024 2:30 PM EST Office Visit Urology Garima Meyers [address] [place] [address] Michelle Rodriguez PA-C [address] [place] [address] Scheduled Procedures Name Priority Associated Diagnoses Date/Ti me COLONOSCOPY FLEXIBLE PROXIMAL DIAGNOSTIC Recall History of colonic polyps ESOPHAGOGASTRODUODENOSCOPY ( EGD), FLEXIBLE, TRANSORAL, DIAGNOSTIC Recall Hedrick's esophagus Scheduled Referrals Name Type Priority Associated Diagnoses Orde r Schedule PHARMACIST MEDS THERAPY MGMT REFERRAL OP Referral Within 3 days (urgent) Glioblastoma (HCC) Ordered: 04/04/2024 Health Maintenance Due Date Last Done Comments [...] this encounter Medical Devices Implanted Type Area Corrugated Sheet Material Sheeter Device Identifier Shelf Expiration Date Model / Serial / Lot Graft Lyoplant 5.0x5.0cm 2x2 - [id number] Implanted:Qty : 1 on 06/24/2020 by Madi Kaur MD [place] [facility] Right: Head B ALICEA : AESCULAP 11/18/2024 [id number] / / [id number] Graft Lyoplant 5.0x5.0cm 2x2 - [id number] Implanted:Qty : 1 on 06/24/2020 by Madi Kaur MD [place] [facility] B ALICEA : AESCULAP [id number] 11/18/2024 [id number] / [id number] / [id number] Graft Lyoplant 5.0x5.0cm 2x2 - [id number] Implanted:Qty : 1 on 06/24/2020 by Madi Kaur MD [place] [facility] Right: Head B [employer]ICEA : AESCULAP 06/24/2020 [id number] / / [id number] Graft Lyoplant 5.0x5.0cm 2x2 - [id number] Implanted:Qty : 1 on 06/24/2020 by Madi Kaur MD [place] [facility] B ALICEA : AESCULAP [id number] 11/18/2024 [id number] / [id number] / [id number] Plate Ti Lo Pro Str 2h 421.502 - [id number] Implanted:Qty : 2 on 06/24/2020 by Madi Kaur MD at [place] [facility] Right: Head SYNTHES MAXILLOFACIAL 421.502 / / Plate Bx Ti [id number] 4h 421.521 - [id number] Implanted:Qty : 1 on 06/24/2020 by Madi Kaur MD at [place] [facility] Right: Head SYNTHES MAXILLOFACIAL 421.521 / / Screw Ti Lo Pro Sd 4mm 400.834 - [id number] Implanted:Qty : 7 on 06/24/2020 by Madi Kaur MD at [facility] Right: Head SYNTHES MAXILLOFACIAL 400.834 / / documented as of this encounter Visit Diagnoses Diagnosis Glioblastoma (HCC)- Primary Malignant neoplasm of brain, unspecified site documented in this encounter Advance Directives * Full Code [...] Lam Spouse Health Care Agent Care Teams Varnish Supervisor Relationship Specialty Start Date End Date Apolinar Wayne DO [address] [place] [address] PCP - General Internal Medicine 11/15/23 documented as of this encounter"
--- OUTSIDE RECORDS SUMMARY | 2024-04-10 19:07 | External Medical Summary | Summary of Care ---
Author Name Unknown Organization [facility] Address [address] [place] [address] Phone [phone] Care Team Providers Care Construction Millwright Name Role Phone Apolinar Wayne DO Primary Care Provider [phone] Reason for Visit * Reason Onset Date Comments Test Results 04/05/202404/05 Encounter Details Date Type Department Care Team (Late st Contact Info) Description 04/05/2024 Telephone Family Practice [address] [place] [address] [place] [address] Apolinar Wayne DO [address] [place] [address] Test Results (04/05) Allergies Active Allergy Reactions Criticality Noted Date [...] by mouth every afternoon. (get from the [place]) 04/15/19 Active Vitamin D3 25 MCG (1000 UT) Oral CapsuleIndication s:general health Take 1 Capsule by mouth every evening. Active FreeStyle Aarit 2 SensorIndications :Type 2 diabetes mellitus with hemoglobin A1c goal of less than 7.0% ([facility]) Use as directed every 14 days . 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 Wayne. Acknowledged understanding. States his pain is better. He is using heat with relief. * Telephone Encounter - Nelsy Almanzar LPN - 04/05/2024 2:18 PM EST ----- Message from Apolinar Wayne DO sent at 04/04/2024 8:12 PM EST ----- No fracture or dislocation on x-rays of shoulder. 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 [place] [address] 04/11/2024 3:45 PM EST Pharmacy Pharmacy Hematology Oncology [facility] [address] [place] [address] [facility] Hem/Onc [address] [place] [address] 04/16/2024 7:10 AM EST Laboratory Lab Mobile Phlebotomy [facility] [address] [facility] [place] [address] Mv, [facility] Mobile Home Draw [address] [place] [address] 04/17/2024 2:20 PM EST Office Visit Family Practice [address] [facility], [place] [address] [place] [facility] [place] [address] Apolinar Wayne, DO 293 [facility], [place] [address] 04/19/2024 10:30 AM EST Imaging Radiology [address] [place], [place] [address] 04/23/2024 7:10 AM EST Laboratory Lab Mobile Phlebotomy [facility] [address] [place], [place] [address] M[facility], Gml Mobile Home Draw [address] [facility] [place], [place] [address] 04/26/2024 9:00 AM EST Office Visit Hematology/Oncology [facility] [address] [facility], [place] [address] Fernando Solo MD [address] [facility], [place] [address] 04/27/2024 3:00 PM EST Office Visit Family Practice [address] [place] [address] [address] [place] [address] Apolinar Wayne, DO 293 [facility], [place] [address] 04/30/2024 7:10 AM EST Laboratory Lab Mobile Phlebotomy [facility] [address] [place], [place] [address] Mv[facility], Gml Mobile Home Draw [address] [place] [place] [address] 05/07/2024 7:10 AM EST Laboratory Lab Mobile Phlebotomy [facility] [address] [place], [place] [address] M[facility], Gml Mobile Home Draw [address] [place], [place] [address] 05/14/2024 7:10 AM EST Laboratory Lab Mobile Phlebotomy [facility] [address] [place], [place] [address] Mv[facility], Gml Mobile Home Draw [address] [place], [place] [address] 05/21/2024 7:10 AM EST Laboratory Lab Mobile Phlebotomy [facility] [address] [place], [place] [address] M[facility], Gml Mobile Home Draw [address] [place], [place] [address] 05/21/2024 2:30 PM EST Office Visit Urology Garima Meyers [address] [place] [address] Michelle Rodriguez PA-C [address] [place] [address] 05/28/2024 7:10 AM EDT Laboratory Lab Mobile Phlebotomy [facility] [address] [place], [place] [address] Mv[facility], Gml Mobile Home Draw [address] [place], [place] [address] 06/04/2024 7:10 AM EDT Laboratory Lab Mobile Phlebotomy [facility] [address] [place], [place] [address] Mvmg, Gml Mobile Home Draw [address] [place], [place] [address] 06/11/2024 7:10 AM EDT Laboratory Lab Mobile Phlebotomy [facility] [address] [place], [place] [address] Mvmg, Gml Mobile Home Draw [address] [place] [address] 06/18/2024 7:10 AM EDT Laboratory Lab Mobile Phlebotomy [facility] [address] [place], [place] [address] Mvmg, Gml Mobile Home Draw [address] [place], [place] [address] Scheduled Procedures Name Priority Associated Diagnoses Date/Ti [...] this encounter Medical Devices Implanted Type Area Pilot Control Operator Helper Device Identifier Shelf Expiration Date Model / Serial / Lot Graft Lyoplant 5.0x5.0cm 2x2 - [id number] Implanted:Qty : 1 on 06/24/2020 by Madi Kaur MD at OR [place] Right: Head B ALICEA : AESCULAP 11/18/2024 [id number] / / [id number] Graft Lyoplant 5.0x5.0cm 2x2 - [id number] Implanted:Qty : 1 on 06/24/2020 by Madi Kaur MD at OR [place] B ALICEA : AESCULAP [id number] 11/18/2024 [id number] / [id number] / [id number] Graft Lyoplant 5.0x5.0cm 2x2 - [id number] Implanted:Qty : 1 on 06/24/2020 by Madi Kaur MD at OR [place] Right: Head B ALICEA : AESCULAP 06/24/2020 [id number] / / [id number] Graft Lyoplant 5.0x5.0cm 2x2 - [id number] Implanted:Qty : 1 on 06/24/2020 by Madi Kaur MD at OR [place] B ALICEA : AESCULAP [id number] 11/18/2024 [id number] / [id number] / [id number] Plate Ti Lo Pro Str 2h 421.502 - [id number] Implanted:Qty : 2 on 06/24/2020 by Madi Kaur MD at OR [place] Right: Head SYNTHES MAXILLOFACIAL 421.502 / / Plate Bx Ti [id number] 4h 421.521 - [id number] Implanted:Qty : 1 on 06/24/2020 by Madi Kaur MD at OR [place] Right: Head SYNTHES MAXILLOFACIAL 421.521 / / Screw Ti Lo Pro Sd 4mm 400.834 - [id number] Implanted:Qty : 7 on 06/24/2020 by Madi [...] Agents on File Name Relationship Healthcare Agent [facility] Communication Aimee Lam Spouse Health Care Agent Care Teams Construction Millwright Relationship Specialty Start Date End Date Apolinar Wayne DO [address] [place] [address] PCP - General Internal Medicine 11/15/23 documented as of this encounter
--- OUTSIDE RECORDS SUMMARY | 2024-04-10 19:07 | External Medical Summary | Summary of Care ---
Author Name Unknown Organization [facility] Address [address] [place] [address] Phone [phone] Care Team Providers Care Raise Drill Operator Name Role Phone Apolinar Wayne DO Primary Care Provider [phone] Reason for Visit * Reason Comments Follow Up Encounter Details Date Type Department Care Team (Latest Contact Info) Description 04/03/2024 3:40 PM EST Office Visit Family Practice [address] [facility], [place] [address] [place] [id number] Apolinar Wayne DO [address] [place] [address] Glioblastoma (HCC)*; Gait abnormality; Falls frequently; Acute pain of left shoulder; Localization-related epilepsy (HCC); Type 2 diabetes mellitus with hemoglobin A1c goal of less than 8.0% (HCC); Dyslipidemia, goal LDL below 100; Gastro-esophageal reflux disease without esophagitis; BPH with obstruction/lower urinary tract symptoms; Current moderate episode of major depressive disorder without prior episode (HCC); History of pulmonary embolism; HTN, goal below 140/90; PTSD (post-traumatic stress disorder); Tremor; Degeneration of intervertebral disc of lumbar region with discogenic back pain Allergies Active Allergy Reactions Criticality Noted Date Comments Erythromycin 07/02/1998 GI upset Guaifenesin & Derivatives 03/18/1997 nucofed documented as of this encounter (statuses as of 04/03/2024) Medications BD Pen Needle Altagracia U/F 32G [...] by mouth every afternoon. (get from the [place]) 04/15/19 22 Active Vitamin D3 25 MCG (1000 UT) Oral CapsuleIndication s:general health Take 1 Capsule by mouth every evening. Active FreeStyle Aarti 2 SensorIndications :Type 2 diabetes mellitus with hemoglobin A1c goal of less than 7.0% ([facility]) Use as directed every 14 [...] of major depressive disorder without prior episode ([facility]),PTSD (post-traumatic stress disorder) Take 1 [...] 3 03/22/2024 9:33 AM EST 05/29/19 24 07/04/ 025 Active Valtoco 10 MG Dose 10 [...] by mouth 2 times a day. Active documented as of this encounter (statuses as of 04/03/2024) Active Problems Problem Noted Date Diagnosed Date [...] 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 06/27/2018 ferry terminal agent (current) use of insulin 10/27/2017 History of [...] as of this encounter (statuses as of 04/03/2024) Resolved Problems Problem Noted Date Diagnosed Date [...] as of this encounter (statuses as of 04/03/2024) Immunizations Name Administration Dates Next Due COVID-19 mRNA, LNP-s, No Pre serve, 2-Dose Series (Munchkin) 03/10/2021,06/07/2020,05/17/2020 COVID-19, LNP-s, No Preserve , Chandler-sucrose, Ages 12+ (Munchkin) 11/17/2021 COVID-19, MRNA-LNP, PF, 30 M CG/0.3 [...] Smoke Exposure: Past Smokeless Tobacco: Former Chew Tobacco Cessation:Counseling Given: Yes Comments:Current occasional chew use - 1 pouch/month [...] Sign Reading Time Taken Comments Blood Pressure 144/82 04/03/2024 4:14 PM EST Pulse 85 04/03/2024 4:14 PM EST Temperature 35.6 C (96 F) 04/03/2024 4:14 PM EST Respiratory Rate 14 04/03/2024 4:14 PM EST Oxygen Saturation 98% 04/03/2024 4:14 PM EST Inhaled Oxygen Concentration - - Weight 86.9 kg (191 lb 9.6 oz) 04/03/2024 4:14 P M EST Height 167.6 cm (5' 6") 04/03/2024 4:14 PM EST Body Mass Index 30.93 04/03/2024 4:14 PM EST documented in this encounter Functional Status * [...] documented in this encounter Progress Notes * CarlyleApolinar segovia Everardo, - 04/03/2024 4:30 PM EST SUBJECTIVE: Denis Lam is a 73 year old male. Chief Complaint Patient presents with Follow Up HPI: Patient is a 73 year old male with a history of right temporal lobe GBM resection at [facility] on 07/14/2020, resection of recurrent GBM at [facility] on 01/31/2024, DM type II, Hyperlipidemia,BPH, Pulmonary HTN, Pulmonary Embolism, left leg DVT, Hedrick's Esophagus, Anxiety, and Depression that is seen for left shoulder pain post fall. The patient fell 9 days ago off of shower chair 5 days ago. He struck his head and left shoulder. He cannot lift his left arm above his head. He has fallen 6 times since returning home post surgery in 01/2024. Balance is poor post surgery. No chest painor shortness of breath are present. Left eye vision loss is unchanged. He continues to follow with Medical Oncology and Neurosurgery. The patient hopes to start chemotherapy in the near future. MRI of the brain is scheduled on 04/19/2024 at [facility]. Patient is at the visit with his . Patient Active Problem List Diagnosis Dyslipidemia, goal LDL below 100 HTN, goal below 140/90 Lumbar degenerative disc disease BPH with obstruction/lower urinary tract symptoms History of urinary retention History of pulmonary embolism History of deep venous thrombosis (DVT) of distal vein of left lower extremity ferry terminal agent (current) use of insulin (HCC) Diabetes mellitus with nephropathy (HCC) 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 Pulmonary hypertension (HCC) DM type 2 causing eye disease (HCC) Glioblastoma (HCC) Claustrophobia Localization-related epilepsy (HCC) Encounter for antineoplastic chemotherapy Current moderate episode of major depressive disorder without prior episode (HCC) Gastro-esophageal reflux disease without esophagitis PTSD (post-traumatic stress disorder) Type 2 diabetes mellitus with hemoglobin A1c goal of less than 8.0% (HCC) Tremor Current Outpatient Medications Medication Sig Dispense Refill B Complex (Folic Acid) Oral Tablet Take 1 Tablet by mouth in the morning. Vitamin D3 25 MCG (1000 UT) Oral Capsule Take 1 Capsule by mouth every evening. FreeStyle Aarti 2 Sensor Use as directed every 14 days . 1 Each 0 Magnesium Oxide 420 MG Oral Tablet Take 1 Tablet by mouth every evening. Gabapentin 300 MG Oral Capsule (Neurontin) TAKE BY MOUTH ONE CAPSULE IN THE MORNING AND ONE CAPSULEAT NOON AND ONE CAPSULE BEFORE BEDTIME 300 Capsule 3 Sertraline HCl 100 MG Oral Tablet (Zoloft) Take 1 Tablet by mouth in the morning. 100 Tablet 3 Diclofenac Sodium 1 % External Gel (Voltaren) APPLY TOPICALLY TO AFFECTED AREA 3 TIMES A DAY -- TO HANDS, BILATERALLY FOR ARTHRITIC PAIN 200 g 5 Pantoprazole Sodium 40 MG Oral Tablet Delayed Release (Protonix) TAKE ONE TABLET BY MOUTH EVERY QOH780 Tablet 3 Valtoco 10 MG Dose 10 MG/0.1ML Nasal Liquid (diazePAM) Administer 10 mg into nostril as needed (seizures lasting longer than 3 minutes). 1 Each 1 Ondansetron HCl 8 MG Oral Tablet (Zofran) Take 1 tablet by mouth 30 minutes prior to lomustine and every 8 hours as needed for nausea. Do not exceed 3 tablets per 24 hours. 60 Tablet 1 Atorvastatin Calcium 80 MG Oral Tablet (Lipitor) Take 1 Tablet by mouth daily. 100 Tablet 3 levETIRAcetam 750 MG Oral Tablet take 1 tablet by mouth every 12 hours 60 Tablet 0 Insulin Glargine 100 UNIT/ML Subcutaneous Solution (Lantus) inject 12 units Subcutaneous every 12 hours (Patient taking differently: Inject under the skin. 10 units daily) 10 mL 0 Multiple Vitamins Oral Tablet Take 1 Tablet by mouth in the morning. LORazepam 0.5 MG Oral Tablet (Ativan) Take 1 Tablet by mouth 3 times a day as needed for Anxiety. 60 Tablet 0 Finasteride 5 MG Oral Tablet (Proscar) TAKE ONE TABLET BY MOUTH EVERY DAY IN THE MORNING 100 Tablet1 Carvedilol 3.125 MG Oral Tablet (Coreg) Take 1 Tablet by mouth 2 times a day with morning and evening meals. 200 Tablet 3 Tamsulosin HCl 0.4 MG Oral Capsule (Flomax) Take 1 Capsule by mouth in the morning. 100 Capsule 3 Rivaroxaban 20 MG Oral Tablet (Xarelto) Take 1 Tablet by mouth daily with dinner. 30 Tablet 0 Glucerna Shake Oral Liquid Take by mouth 2 times a day. BD Pen Needle Altagracia U/F 32G X 4 MM (Insulin Pen Needle) Use to inject insulin 4 times a day 200 Each3 SURGICAL COMPRESSION STOCKING 20 to 30mm knee high. 2 Each 6 Rivaroxaban 20 MG Oral Tablet (Xarelto) Take 1 Tablet by mouth every afternoon. (get from the [place]) No current facility-administered medications for this visit. The patient's medication list was reviewed and updated as needed. Past Medical History: Diagnosis Date Hedrick esophagus 12/13/2011 repeat EGD in 3 yrs/repeat EUS in 3-6 months Benign neoplasm of colon 08/26/2006 hyperplastic polyp-repeat colonoscopy in 10 years Dyslipidemia, goal LDL below 100 03/04/2009 HTN, goal below 140/90 05/26/2015 Per HTN Protocol #27. Lumbar degenerative disc disease 08/10/2016 Pulmonary hypertension (HCC) 10/10/2018 Shingles 09/2012 right T-8 Steroid-induced hyperglycemia Type 2 diabetes mellitus with hemoglobin A1c goal of less than 8.0% (HCC) 03/27/2024 Past Surgical History: Procedure Laterality Date ARTHROSCOPY SHOULDER,SURGICAL 11/2005 Dr. Bryant-right shoulder BIOPSY OF PROSTATE 12/2004 No malignancy COLONOSCOPY 08/26/2006 Single polyp hyperplastic-repeat in 10years COLONOSCOPY, DIAGNOSTIC (RECTUM) 09/30/2016 adenomatous polyp, repeat 3 yrs/COLONOSCOPY FLEXIBLE PROXIMAL DIAGNOSTIC performed by Luana Callahan DO at ENDOSCOPY [facility] COLONOSCOPY, DIAGNOSTIC (RECTUM) 11/02/2019 internal hemorrhoids/biopsies show adenomatous polyps/recall 5 years/COLONOSCOPY FLEXIBLE PROXIMAL DIAGNOSTIC performed by Luana Callahan DO at ENDOSCOPY [facility] EGD, FLEXIBLE, DIAGNOSTIC 12/13/2011 Hedrick's-repeat EGD 3 yrs/repeat EUS 3-6 monthsUPPER GI ENDOSCOPY DIAGNOSTIC performed by Luana Diaz DO at ENDOSCOPY [facility] EGD, FLEXIBLE, DIAGNOSTIC 06/06/2015 sm HH, Barretts, repeat 3 yrs/ESOPHAGOGASTRODUODENOSCOPY (EGD), FLEXIBLE, TRANSORAL, DIAGNOSTIC performed by Luana Callahan DO at ENDOSCOPY [facility] EGD, FLEXIBLE, DIAGNOSTIC 09/27/2018 mild inflammation on bx, repeat 3 yrs/ESOPHAGOGASTRODUODENOSCOPY (EGD), FLEXIBLE, TRANSORAL, DIAGNOSTIC performed by Luana Callahan DO at ENDOSCOPY [facility] EGD, FLEXIBLE, W/BIOPSY 12/11/2009 done bxs done barretts esophagus EGD, W/ENDOSCOPIC US 12/11/2009 done no cyst identified,multiple small stones and sludge in gallbladder pancreas without masses of ductal dilatation barretts esophagus with a small nodule bxs done EGD, W/ENDOSCOPIC US 04/03/2012 UPPER GI ENDOSCOPY ENDOSCOPIC ULTRASOUND performed by Luana Callahan DO at OR [facility] MICROSURGERY ADD-ON Right 06/24/2020 MICROSURGICAL SURGERY REQUIRING MICROSCOPE LISTED SEPARATELY performed by Madi Kaur, [facility] OR [facility] REMOVAL OF APPENDIX REMOVE CATARACT, INSERT LENS PROSTH Left 08/22/2019 REMOVE CATARACT, INSERT LENS PROSTH Right 09/05/2019 REMOVE SUPRATENTORIAL BRAIN TUMOR Right 06/24/2020 CRANIOTOMY BONE FLAP EXCISION BRAIN TUMOR SUPRATENTORIAL performed by Madi Kaur MD at OR [facility] REMOVE TONSILS & ADENOIDS, UNDER 12 T & A, age<12 REPAIR RUPTURED ROTATOR CUFF, CHRON 06/27/2013 right - Dr. Bryant STEREOTACTIC CRANIAL INTRADURAL NAVIGATION Right 06/24/2020 STEREOTACTIC CRANIAL INTRADURAL NAVIGATION performed by Madi Kaur MD at OR [facility] Review of patient's allergies indicates: Allergen Reactions Erythromycin GI upset Guaifenesin & Derivatives nucofed Review of Systems Constitutional: Positive for fatigue. Negative for appetite change, chills, fever and unexpected weight change. Eyes: Left eye vision loss post surgery is unchanged Respiratory: Negative for cough, shortness of breath and wheezing. Gastrointestinal: Negative for abdominal pain, blood in stool, constipation, diarrhea, nausea and vomiting. Genitourinary: Positive for frequency. Negative for dysuria and hematuria. Musculoskeletal: Positive for back pain and gait problem. Neurological: Positive for weakness. Negative for dizziness, syncope and headaches. Psychiatric/Behavioral: Negative for confusion, decreased concentration and sleep disturbance. OBJECTIVE: BP 144/82 (BP Site: Right Arm, BP Position: Sitting, BP Cuff Size: Large) | Pulse 85 | Temp 96 F (35.6 C) (Tympanic) | Resp 14 | Ht 5' 6" (1.676 m) | Wt 191 lb 9.6 oz (86.9 kg) | SpO2 98% | BMI 30.93 kg/m | BSA 2.01 m Physical Exam Vitals and nursing note reviewed. Constitutional: General: He is not in acute distress. Appearance: Normal appearance. He is not toxic-appearing. HENT: Head: Normocephalic and atraumatic. Cardiovascular: Rate and Rhythm: Normal rate and regular rhythm. Heart sounds: No murmur heard. No gallop. Pulmonary: Effort: Pulmonary effort is normal. Breath sounds: Normal breath sounds. No wheezing or rales. Abdominal: General: Bowel sounds are normal. There is no distension. Palpations: Abdomen is soft. Tenderness: There is no abdominal tenderness. Musculoskeletal: Right lower leg: No edema. Left lower leg: No edema. Neurological: Mental Status: He is alert. Motor: Weakness present. Gait: Gait abnormal. Psychiatric: Mood and Affect: Mood normal. Behavior: Behavior normal. PLAN AND ASSESSMENT: Glioblastoma (HCC) (Primary) Continue to follow with Medical Oncology Future Chemotherapy per Medical Oncology MRI scheduled 04/19/2024 Gait abnormality Stop Rivaroxaban due to gait abnormality and frequent falls. Falls frequently Continue PT Acute pain of left shoulder - XR SHOULDER, 2 OR MORE VIEWS No fracture present on x-rays Localization-related epilepsy (HCC) Continue Levetiracetam Type 2 diabetes mellitus with hemoglobin A1c goal of less than 8.0% (HCC) Continue Lantus per [facility] Dyslipidemia, goal LDL below 100 Continue Atorvastatin Gastro-esophageal reflux disease without esophagitis Continue Pantoprazole BPH with obstruction/lower urinary tract symptoms Continue Tamsulosin Current moderate episode of major depressive disorder without prior episode (HCC) Continue Sertraline History of pulmonary embolism Hold RIvaroxaban due to gait abnormality and falls. HTN, goal below 140/90 Continue Carvedilol PTSD (post-traumatic stress disorder) Tremor Degeneration of intervertebral disc of lumbar region with discogenic back pain Follow Up: Return in about 2 weeks (around 04/17/2024), or if symptoms worsen or fail to improve. Apolinar Wayne DO 4:31 PM 04/03/2024 documented in this encounter Nursing Notes * Nelsy Almanzar LPN - 04/03/2024 4:09 PM EST Patient here for routine follow up visit. Reports 3 falls since Tuesday. Fell out of tub/shower on Tuesday - now has pain in left shoulder. documented in this encounter Plan of Treatment Upcoming Encounters Date Type Department Care Team (Late st Contact Info) Description 04/04/2024 10:40 AM EST Office Visit Family Practice [address] [place] [address] [address] [place] [address] Apolinar Wayne, [address] [facility] [place] [address] 04/04/2024 3:45 PM EST Pharmacy Pharmacy Hematology Oncology [facility], [place] [address] [place] [address] [facility] Clinic Hem/Onc [facility] [place] [address] 04/09/2024 12:30 PM EST Home Visit [facility] [address] [place] [address] Betzy Vega RN [address] [place] [address] 04/13/2024 3:45 PM EST Pharmacy Pharmacy Hematology Oncology [facility], [place] [address] [place] [address] [facility] Clinic Hem/Onc [facility] [place] [address] 04/17/2024 2:20 PM EST Office Visit Family Practice [address] [place] [address] [address] [facility], [place] [address] Apolinar Wayne, 293 [facility], [place] [address] 04/19/2024 10:30 AM EST Imaging Radiology [address], [place] [address] [facility] [place] [address] 04/26/2024 9:00 AM EST Office Visit Hematology/Oncology Nasrin Mclaughlin [place] [address] [facility] [place], [place] [id number] Fernando Solo MD [address] [facility] [place] [address] 04/27/2024 3:00 PM EST Office Visit Family Practice [address], [place] [address] [place], [place] [address] Apolinar Wayne, 293 [facility], [place] [address] 05/21/2024 2:30 PM EST Office Visit Urology Garima Meyers [address] [place] [address] Michelle Rodriguez PA-C [address] [place] [address] Pending Results Name Type Priority Associated Diagnoses Date /Time XR SHOULDER, 2 OR MORE VIEWS Medical Imaging STAT Acute pain of left shoulder 04/03/2024 4:35 PM EST Scheduled Procedures Name Priority Associated Diagnoses Date/Ti [...] this encounter Medical Devices Implanted Type Area Die Maker Electronic Device Identifier Shelf Expiration Date Model / Serial / Lot Graft Lyoplant 5.0x5.0cm 2x2 - [id number] Implanted:Qty : 1 on 06/24/2020 by Madi Kaur MD at OR [facility] Right: Head B ALICEA : AESCULAP 11/18/2024 [id number] / / [id number] Graft Lyoplant 5.0x5.0cm 2x2 - [id number] Implanted:Qty : 1 on 06/24/2020 by Madi Kaur MD at OR [facility] B ALICEA : AESCULAP [id number] 11/18/2024 [id number] / [id number] / [id number] Graft Lyoplant 5.0x5.0cm 2x2 - [id number] Implanted:Qty : 1 on 06/24/2020 by Madi Kaur MD at OR [facility] Right: Head B ALICEA : AESCULAP 06/24/2020 [id number] / / [id number] Graft Lyoplant 5.0x5.0cm 2x2 - [id number] Implanted:Qty : 1 on 06/24/2020 by Madi Kaur MD at OR [facility] B ALICEA : AESCULAP [id number] 11/18/2024 [id number] / [id number] / [id number] Plate Ti Lo Pro Str 2h 421.502 - [id number] Implanted:Qty : 2 on 06/24/2020 by Madi Kaur MD at OR [facility] Right: Head SYNTHES MAXILLOFACIAL 421.502 / / Plate Bx Ti [id number] 4h 421.521 - [id number] Implanted:Qty : 1 on 06/24/2020 by Madi Kaur MD at OR [facility] Right: Head SYNTHES MAXILLOFACIAL 421.521 / / Screw Ti Lo Pro Sd 4mm 400.834 - [id number] Implanted:Qty : 7 on 06/24/2020 by Madi Kaur MD at OR [facility] Right: Head SYNTHES MAXILLOFACIAL 400.834 / / documented as of this encounter Visit Diagnoses Diagnosis Glioblastoma (HCC)- Primary Malignant neoplasm of brain, unspecified site Gait abnormality Abnormality of gait Falls frequently Personal history of fall Acute pain of left shoulder Localization-related epilepsy (HCC) Localization-related (focal) (partial) epilepsy and epileptic syndromes with simple partial seizures, without mention of intractable epilepsy Type 2 diabetes mellitus with hemoglobin A1c goal of less than 8.0% ([facility]) Dyslipidemia, goal LDL below 100 Other and unspecified hyperlipidemia Gastro-esophageal reflux disease without esophagitis Esophageal reflux BPH with obstruction/lower urinary tract symptoms Hypertrophy of prostate with urinary obstruction and other lower urinary tract symptoms ([facility]) Current moderate episode of major depressive disorder without prior episode ([facility]) History of pulmonary embolism Personal history of pulmonary embolism HTN, goal below 140/90 Unspecified essential hypertension PTSD (post-traumatic stress disorder) Posttraumatic stress disorder Tremor Abnormal involuntary movements Degeneration of intervertebral disc of lumbar region with discogenic back pain documented in this encounter Advance Directives * [...] Agents on File Name Relationship Healthcare Agent [facility] Communication Aimee Lam Spouse Health Care Agent Care Teams Raise Drill Operator Relationship Specialty Start Date End Date Apolinar Wayne DO [address] [place] [address] PCP - General Internal Medicine 11/15/23 documented as of this encounter
--- OUTSIDE RECORDS SUMMARY | 2024-04-10 19:07 | External Medical Summary | Summary of Care ---
Author Name Unknown Organization [facility] Address [address] [place] [address] Phone [phone] Care Team Providers Care Machine Set Up Name Role Phone Apolinar Wayne DO Primary Care Provider [phone] Encounter Details Date Type Department Care Team (Late st Contact Info) Description 04/03/2024 Population Health External Data Unspecified Department Allergies [...] [facility] 04/15/19 22 Active Vitamin D3 25 MCG (1000 UT) Oral CapsuleIndication s:general health Take 1 Capsule by mouth every evening. Active FreeStyle Aarti 2 SensorIndications :Type 2 diabetes mellitus with hemoglobin A1c goal of less than 7.0% ([facility]) Use as directed every 14 days . [...] 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 06/27/2018 residential (current) use of insulin 10/27/2017 History of [...] mRNA, LNP-s, No Pre serve, 2-Dose Series ([facility]) 03/10/2021,06/07/2020,05/17/2020 COVID-19, LNP-s, No Preserve , Chandler-sucrose, Ages 12+ (Pfizer) 11/17/2021 COVID-19, MRNA-LNP, PF, 30 M CG/0.3 mL, 12 YRS AND ABOVE, IM (PFIZER-Comirnaty) 01/17/2024,03/08/2023 Covid-19, Mrna, Lnp-s, Pf, B ivalent, 30 Mcg, IM, 12 yrs and above ([facility]) 04/13/2022 H1N1 2009 Influenza, IM 12/10/2019,04/01/2009 Pneumococcal [...] Answer Date Recorded PHQ Adult Total Score 03/06/2024 Hunger Vital Sign Answer Date Recorded [...] 3:45 PM EST Pharmacy Pharmacy Hematology Oncology [address] [address] [facility], [facility] Hem/Onc [address] [place] [id number] Glioblastoma (HCC)* 04/09/2024 12:30 PM EST Home Visit [facility] [address] [place] [address] Betzy Vega, HECTOR [address] [place] [address] 04/13/2024 3:45 PM EST Pharmacy Pharmacy Hematology Oncology [address] [address] [facility], [facility] Hem/Onc [address] [place] [address] 04/17/2024 2:20 PM EST Office Visit Family Practice [facility] 293 [facility], [place] [address] Apolinar Wayne, DO [address] [place] [address] 04/19/2024 10:30 AM EST Imaging Radiology [address] [place] [phone] 04/26/2024 9:00 AM EST Office Visit Hematology/Oncology [facility] [address] [facility] [place], [place] [phone] Fernando Solo MD [address] [facility] [place] [address] 04/27/2024 3:00 PM EST Office Visit Family Practice [address] [place] [address] 293 [facility], [place] [address] Apolinar Wayne, DO [address] [place], [place] [address] 05/21/2024 2:30 PM EST Office Visit Urology Garima Meyers [address] [place] [address] Michelle Rodriguez PA-C [address] [place] [address] Scheduled Procedures Name Priority Associated Diagnoses Date/Ti [...] this encounter Medical Devices Implanted Type Area Concrete Mixer Operator Device Identifier Shelf Expiration Date Model / Serial / Lot Graft Lyoplant 5.0x5.0cm 2x2 - [id number] Implanted:Qty : 1 on 06/24/2020 by Madi Kaur MD at OR [facility] [place] Right: Head B ALICEA : AESCULAP 11/18/2024 [id number] / / [id number] Graft Lyoplant 5.0x5.0cm 2x2 - [id number] Implanted:Qty : 1 on 06/24/2020 by Madi Kaur MD at OR [facility] [place] B ALICEA : AESCULAP [id number] 11/18/2024 [id number] / [id number] / [id number] Graft Lyoplant 5.0x5.0cm 2x2 - [id number] Implanted:Qty : 1 on 06/24/2020 by Madi Kaur MD at OR [facility] [place] Right: Head B ALICEA : AESCULAP 06/24/2020 [id number] / / [id number] Graft Lyoplant 5.0x5.0cm 2x2 - [id number] Implanted:Qty : 1 on 06/24/2020 by Madi Kaur MD at OR [facility] [place] B ALICEA : AESCULAP [id number] 11/18/2024 [id number] / [id number] / [id number] Plate Ti Lo Pro Str 2h 421.502 - [id number] Implanted:Qty : 2 on 06/24/2020 by Madi Kaur MD at OR [facility] [place] Right: Head SYNTHES MAXILLOFACIAL 421.502 / / Plate Bx Ti [id number] 4h 421.521 - [id number] Implanted:Qty : 1 on 06/24/2020 by Madi Kaur MD at OR [facility] [place] Right: Head SYNTHES MAXILLOFACIAL 421.521 / / Screw Ti Lo Pro Sd 4mm 400.834 - [id number] Implanted:Qty : 7 on 06/24/2020 by Madi Kaur MD at OR [facility] [place] Right: Head SYNTHES [...] Agents on File Name Relationship Healthcare Agent [employer] Communication Aimee Lam Spouse Health Care Agent Care Teams Machine Set Up Relationship Specialty Start Date End Date Apolinar Wayne DO [address] [place] [address] PCP - General Internal Medicine 11/15/23 documented as of this encounter
--- OUTSIDE RECORDS SUMMARY | 2024-04-10 19:07 | External Medical Summary | Summary of Care ---
Author Name Unknown Organization [facility] Address [address] [place] [address] Phone [phone] Care Team Providers Care Radio Equipment Installer Name Role Phone Apolinar Wayne DO Primary Care Provider [phone] Reason for Referral * Ancillary Services (Within 10 days (routine)) - Authorized Specialty Diagnoses / Procedures Referred By Andrez nicolas Referred To Contact Immunopathologist Diagnoses Glioblastoma (HCC) Gait abnormality Falls frequently Localization-related epilepsy (HCC) Apolinar Wayne DO [address] [place] [address] Phone: tel: fax: Referral ID Status Reason Start Date Expiration Date Visits Requested Visits Authorized [id number] Authorized Ancillary Services Required 04/05/2024 999 999 Question Answer Referral Priority Within 10 days (routine) Where should this appointment be scheduled? [facility] Reason for Visit * Reason Onset Date Comments Other 04/05/2024 Home Health upda te/ Social work request Encounter Details Date Type Department Care Team (Late st Contact Info) Description 04/05/2024 Telephone Family Practice [address] [facility] [place] [address] [place] [address] Apolinar Wayne DO [address] [place] [address] Other (Home Health update/ Social work req... Allergies Active Allergy Reactions Criticality Noted Date [...] 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 06/27/2018 retirement (current) use of insulin 10/27/2017 History of [...] mRNA, LNP-s, No Pre serve, 2-Dose Series ([place]) 03/10/2021,06/07/2020,05/17/2020 COVID-19, LNP-s, No Preserve , Chandler-sucrose, Ages 12+ (Pfizer) 11/17/2021 COVID-19, MRNA-LNP, PF, 30 M CG/0.3 mL, 12 YRS AND ABOVE, IM (PFIZER-Comirnaty) 01/17/2024,03/08/2023 Covid-19, Mrna, Lnp-s, Pf, B ivalent, 30 Mcg, IM, 12 yrs and above (Pfizer) 04/13/2022 H1N1 2008 Influenza, IM 12/10/2019,04/01/2009 Pneumococcal Conjugate Vacc, 13 [...] No 03/06/2024 Does the household have a [facility] source of income? (Household - for ages [...] Encounter - Apolinar Wayne DO - 04/05/2024 1:22 PM EST Social Service referral placed * Telephone Encounter - Sadie Madera LPN - 04/05/2024 12:34 PM EST Advised ok to move forward with social services. Thank you * Telephone Encounter - Crissy Alvarez OSA - 04/05/2024 11:03 AM EST Dany, a speech therapist with [facility] is calling with an update on Denis. She states that the patient's spouse has cancelled several visits across all disciplines and he has had several falls. Home Health is requesting a referral/order for a social work consult for more assistance. Dany can be reached at [phone] or . documented in this encounter Plan of Treatment Upcoming Encounters Date Type Department Care Team (Late st Contact Info) Description 04/09/2024 12:30 PM EST Home Visit [facility] at [address] [place] [address] Betzy Vega RN [address] [place] [address] 04/11/2024 3:45 PM EST Pharmacy Pharmacy Hematology Oncology [facility] [address] [place] [address] [facility] Hem[facility]c [address] [place] [address] 04/16/2024 7:10 AM EST Laboratory Lab Mobile Phlebotomy [facility] [address] [facility] [place] [address] [facility] [facility] [place] [address] 04/17/2024 2:20 PM EST Office Visit Family [address] [facility] [address] [facility]olinar [facility] 293 [facility] [address] 04/19/2024 10:30 AM EST Imaging Radiology [address] [phone] 04/23/2024 7:10 AM EST Laboratory Lab [facility] [address] [facility] [place] [address] [facility], [facility] [address] [facility] [place] [address] 04/26/2024 9:00 AM EST Office Visit Hematology/Oncology [facility] [place] [address] [place] [phone] Fernando Solo MD [address] [place] [address] 04/27/2024 3:00 PM EST Office Visit [address] [facility] [phone] Apolinar Wayne, DO [address] [place] [address] 04/30/2024 7:10 AM EST Laboratory Lab Mobile Phlebotomy [facility] [address] [employer] [place] [address] M[facility], [facility] Home Draw [address] [place] [address] 05/07/2024 7:10 AM EST Laboratory Lab Mobile Phlebotomy [facility] [address] [employer] [place] [address] Mv[facility], G[facility] Home Draw [address] [place] [address] 05/14/2024 7:10 AM EST Laboratory Lab Mobile Phlebotomy [facility] [address] [employer] [place] [address] Mv[facility], Gml Mobile Home Draw [address] [place] [address] 05/21/2024 7:10 AM EST Laboratory Lab Mobile Phlebotomy [facility] [address] [employer] [facility] [address] M[facility], [facility] Draw [address] [place] [address] 05/21/2024 2:30 PM EST Office Visit Urology Garima Meyers [address] [place] [address] Michelle Rodriguez PA-C [address] [place] [address] 05/28/2024 7:10 AM EDT Laboratory Lab Mobile Phlebotomy [facility] [address] [employer] [facility] [address] Mv[facility], Gml Mobile Home Draw [address] [facility], [place] [address] 06/04/2024 7:10 AM EDT Laboratory Lab Mobile Phlebotomy [facility] [address] [employer] [place] [address] Mv[facility], Gml [facility] Home Draw [address] [place] [address] 06/11/2024 7:10 AM EDT Laboratory Lab Mobile Phlebotomy [facility] [address], [place] [address] Mv[facility], Gml [facility] Home Draw [address], [place] [address] 06/18/2024 7:10 AM EDT Laboratory Lab Mobile Phlebotomy [facility] [address] [place] [address] Mv[facility], Gml Mobile Home Draw [address] [facility] [place] [address] Scheduled Procedures Name Priority Associated Diagnoses Date/Ti me COLONOSCOPY FLEXIBLE PROXIMAL DIAGNOSTIC Recall History of colonic polyps ESOPHAGOGASTRODUODENOSCOPY ( EGD), FLEXIBLE, TRANSORAL, DIAGNOSTIC Recall Hedrick's esophagus Scheduled Referrals Name Type Priority Associated Diagnoses Orde r Schedule SOCIAL SERVICE REFERRAL OP Referral Within 10 days (routine) Glioblastoma (HCC) Gait abnormality Falls frequently Localization-related epilepsy (HCC) Ordered: 04/05/2024 Health Maintenance Due Date Last Done Comments [...] this encounter Medical Devices Implanted Type Area Sandwich Peddler Device Identifier Shelf Expiration Date Model / Serial / Lot Graft Lyoplant 5.0x5.0cm 2x2 - [id number] Implanted:Qty : 1 on 06/24/2020 by Madi Kaur [place] [facility] [place] Head B ALICEA : ARIAN 11/18/2024 [id number] / / [id number] Graft Lyoplant 5.0x5.0cm 2x2 - [id number] Implanted:Qty : 1 on 06/24/2020 by Madi Kaur MD [place] [facility] [place] Lara ALICEA : ARIAN [id number] 11/18/2024 [id number] / [id number] / [id number] Graft Lyoplant 5.0x5.0cm 2x2 - [id number] Implanted:Qty : 1 on 06/24/2020 by Madi Kaur MD [place] [facility] [place]: Head B ALICEA : AUTUMNCULACleo 06/24/2020 [id number] / / [id number] Graft Lyoplant 5.0x5.0cm 2x2 - [id number] Implanted:Qty : 1 on 06/24/2020 by Madi Kaur MD [place] [facility] [place] B ALICEA : KEESHIVANI [id number] 11/18/2024 [id number] / [id number] / [id number] Plate Ti Lo Pro Str 2h 421.502 - [id number] Implanted:Qty : 2 on 06/24/2020 by Madi Kaur MD [place] [facility] [place]: Head SYNTHES MAXILLOFACIAL 421.502 / / Plate Bx Ti [id number] 4h 421.521 - [id number] Implanted:Qty : 1 on 06/24/2020 by Madi Kaur MD [place] [facility] [place]: Head SYNTHES MAXILLOFACIAL 421.521 / / Screw Ti Lo Pro Sd 4mm 400.834 - [id number] Implanted:Qty : 7 on 06/24/2020 by Madi Kaur MD [place] [facility] [place]: Head SYNTHES MAXILLOFACIAL 400.834 / / documented as of this encounter Visit Diagnoses Diagnosis Glioblastoma (HCC)- Primary Malignant neoplasm of brain, unspecified site Gait abnormality Abnormality of gait Falls frequently Personal history of fall Localization-related epilepsy (HCC) Localization-related (focal) (partial) epilepsy and epileptic syndromes with simple partial seizures, without mention of intractable epilepsy documented in this encounter Advance Directives * [...] Lam Spouse Health Care Agent Care Teams Radio Equipment Installer Relationship Specialty Start Date End Date Apolinar Wayne DO [address] [place] [address] PCP - General Internal Medicine 11/15/23 documented as of this encounter
--- OUTSIDE RECORDS SUMMARY | 2024-04-10 19:07 | External Medical Summary | Summary of Care ---
Author Name Unknown Organization [facility] Address [address] [place] [address] Phone [phone] Care Team Providers Care Cement Paver Name Role Phone Apolinar Wayne DO Primary Care Provider [phone] Reason for Visit * Reason Onset Date Comments Patient Assistance Program 01/03/2024 17 Giulia Roque Encounter Details Date Type Department Care Team (Late st Contact Info) Description 01/03/2024 Telephone Hematology/Oncology Nasrin c[place] [address] [place] [address] Fernando Solo MD [address] [place] [address] Patient Assistance Program (17 Krys Bermudez... Allergies Active Allergy Reactions Criticality Noted Date Comments Erythromycin 07/02/1998 GI upset Guaifenesin & Derivatives 03/18/1997 nucofed documented as of this encounter (statuses as of 04/03/2024) Medications BD Pen Needle Altagracia U/F 32G X 4 MM (Insulin Pen Needle) Use to inject insulin 4 times a day 200 Each 3 021 Active SURGICAL COMPRESSION STOCKING 20 to 30mm knee high. 2 Each 6 Active B Complex (Folic Acid) Oral TabletIndication s:general health Take 1 Tablet by mouth in the morning. Active Rivaroxaban 20 MG Oral Tablet (Xarelto)Indicat ions:blood clot prevention Take 1 Tablet by mouth every afternoon[facility] Active Vitamin D3 25 MCG (1000 UT) Oral CapsuleIndicatio ns:general health Take 1 Capsule by mouth every evening. Active FreeStyle Aarti 2 SensorIndication s:Type 2 diabetes mellitus with hemoglobin A1c goal of less than 7.0% ([facility]) Use as directed every 14 days . 1 Each Active Magnesium Oxide 420 MG Oral TabletIndication s:general health Take 1 Tablet by mouth every evening. Active Gabapentin 300 MG Oral Capsule (Neurontin) TAKE BY MOUTH ONE CAPSULE IN THE MORNING AND ONE CAPSULE AT NOON AND ONE CAPSULE BEFORE BEDTIME 300 Capsule 3 02/11/20 24 8:14 AM EST 024 2024 Active Sertraline HCl 100 MG Oral Tablet (Zoloft)Indicati ons:Current moderate episode of major depressive disorder without prior episode (HCC),PTSD (post-traumatic stress disorder) Take 1 Tablet by mouth in the morning. 100 Tablet 3 02/04/20 24 2:51 PM EST Active Diclofenac Sodium 1 % External Gel (Voltaren) APPLY TOPICALLY TO AFFECTED AREA 3 TIMES A DAY -- TO HANDS, BILATERALLY FOR ARTHRITIC PAIN 200 g 5 10/26/19 24 11:48 AM EDT 024 2024 Active Pantoprazole Sodium 40 MG Oral Tablet Delayed Release (Protonix)Indica tions:Heartburn TAKE ONE TABLET BY MOUTH EVERY DAY 100 Tablet 3 03/22/19 25 9:33 AM EST 024 2024 Active Valtoco 10 MG Dose 10 MG/0.1ML Nasal Liquid (diazePAM)Indica tions: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 1 Each 1 12/30/19 24 2:07 PM EDT 10/07/2 024 Active Centrum Adults Oral TabletIndication s:general health Take 1 Tablet by mouth. 2023 Discontinued(M edication List Clean Up) Insulin Glargine Solostar 100 UNIT/ML Subcutaneous Solution Pen-injectorIndi cations:Type 2 diabetes mellitus with hemoglobin A1c goal of less than 7.0% (HCC) Inject 13 Units under the skin in the morning. 15 mL 3 023 2023 Discontinued Atorvastatin Calcium 80 MG Oral Tablet (Lipitor)Indicat ions:Dyslipidemi a, goal LDL below 100 Take 1 Tablet by mouth daily. 100 Tablet 3 10/14/19 24 7:43 AM EDT 023 2023 Discontinued(R efill) amLODIPine Besylate 10 MG Oral Tablet (Norvasc)Indicat ions:HTN, goal below 140/90 TAKE ONE TABLET BY MOUTH EVERY DAY 90 Tablet 3 10/31/19 24 9:16 AM EDT 023 2023 Discontinued(R efill) Empagliflozin 25 MG Oral Tablet (Jardiance)Indic ations:Type 2 diabetes mellitus with hemoglobin A1c goal of less than 7.0% (HCC) Take 1 Tablet by mouth in the morning. (From the SD). 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) TAKE ONE TABLET BY MOUTH TWICE A DAY WITH MORNING AND EVENING MEALS 200 Tablet 3 03/10/20 24 11:53 AM EST 024 2024 Discontinued(R efill) Finasteride 5 MG Oral Tablet (Proscar) TAKE ONE TABLET BY MOUTH EVERY DAY IN THE MORNING 100 Tablet 1 12/19/19 24 1:19 PM EDT 024 2024 Discontinued(R efill) Divalproex Sodium 250 MG Oral Tablet Delayed Release (Depakote DR) TAKE TWO TABLETS BY MOUTH EVERY MORNING AND THREE TABLETS IN THE EVENING 450 Tablet 1 09/16/19 24 5:19 PM EDT 024 2023 Discontinued(M edication List Clean Up) levETIRAcetam 500 MG Oral Tablet (Keppra)Indicati ons:Glioblastoma (HCC) Take 1 Tablet by mouth in the morning and 1 Tablet before bedtime. 200 Tablet 3 02/06/20 24 1:01 PM EST 024 2023 Discontinued(M edication List Clean Up) Adacel 5-2-15.5 LF-MCG/0.5 Intramuscular Suspension (Tetanus-Diphth- Acell Pertussis)Indica tions:Need for tetanus, diphtheria, and acellular pertussis (Tdap) vaccine Inject 0.5 mL into a large muscle once for 1 dose. 0.5 mL 11/17/19 12:44 PM EDT 024 2023 Discontinued Tamsulosin HCl 0.4 MG Oral Capsule (Flomax) TAKE ONE CAPSULE BY MOUTH EVERY DAY 100 Capsule 3 03/31/19 25 3:36 PM EST 024 2024 Discontinued(R efill) Ondansetron HCl 8 MG Oral Tablet (Zofran)Indicati ons:Glioblastoma (HCC) TAKE ONE TABLET BY MOUTH 30 MINUTES PRIOR TO TEMOZOLOMIDE AND EVERY 8 HOURS NEEDED FOR NAUSEA DO NOT EXCEED 3 TABLETS IN 24 HOURS 60 Tablet 3 12/24/19 24 2:19 PM EDT 024 2023 Discontinued(R efill) LORazepam 0.5 MG Oral Tablet (Ativan)Indicati ons:Anxiety Take 1 Tablet by mouth 3 times a day as needed for Anxiety. 60 Tablet 01/06/20 24 1:06 PM EDT 024 2023 Discontinued(R efill) Losartan Potassium 100 MG Oral Tablet (Cozaar) TAKE ONE TABLET BY MOUTH EVERY MORNING 100 Tablet 3 01/04/20 24 2:12 PM EDT 024 2023 Discontinued(M edication List Clean Up) documented as of this encounter (statuses as [...] 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 06/27/2018 supervisor intermediates (current) use of insulin 10/27/2017 History of [...] mRNA, LNP-s, No Pre serve, 2-Dose Series (Digital Royalty) 03/10/2021,06/07/2020,05/17/2020 COVID-19, LNP-s, No Preserve , Chandler-sucrose, Ages 12+ (Pfizer) 11/17/2021 COVID-19, MRNA-LNP, PF, 30 M CG/0.3 mL, 12 YRS AND ABOVE, IM (PFIZER-Comirnaty) 03/08/2023 Covid-19, Mrna, Lnp-s, Pf, B ivalent, 30 Mcg, IM, 12 yrs and above (Digital Royalty) 04/13/2022 H1N1 2009 Influenza, IM 12/10/2019,04/01/2009 Pneumococcal [...] Miscellaneous Notes * Telephone Encounter - Krys Staley OSA - 01/23/2024 9:30 AM EST Patient Assistance Name of Medication: Mya Was patient spoken to: : YES Type of assistance: spoke with patients stated to hold off he is not taking medication has surgery January 30 at [facility]. She will call if they need assistance for medication. No follow up needed from [facility] at this time. Applications mailed: : YES 01/05/2024 Follow up: none Krys Staley Medication Freelance Art Director 01/23/2024.9:31 AM' * Telephone Encounter - Krys Staley OSA - 01/05/2024 1:39 PM EDT Patient Assistance Name of Medication: Mya Was patient spoken to: : YES Type of assistance: no grants open at this time, [facility] does not cover medication, patient might be within the income for pharmacy [facility] but they want patient to start medication right away and will pay copay. I will mail pharmacy [facility] application and they will send in for next fill. Patient will pay copay please contact patient for medication to be filled. Applications mailed: : YES 01/05/2024 Follow up: 1 month Krys Staley Medication Freelance Art Director 01/05/2024.1:39 PM * Telephone Encounter - Veronika Rudd OSA - 01/03/2024 6:49 AM EDT Images from the original note were not included. GSP Patient Assistance Request: Medication name: Gleostine Insurance? medicare d Co-pay amount: [phone] Action needed: new funding inquiry Target ship date (if applicable): New start IF HEM/ONC: Confirm this encounter is routed to [facility]: Yes All other department requests should be flagged in referral. Confirm encounter department selected is for prescribing physician: Yes If URGENT: Send TEAMS message to appropriate math and sciences department chair (see "Patient Assistance Guide" - ROUTING POOLS:GS on shared drive): [ ] Urgent message sent to: N/A Thank you, KODY Flores [facility] 01/03/2024,6:49 AM documented in this encounter Plan of Treatment Upcoming Encounters Date Type Department Care Team (Late st Contact Info) Description 04/04/2024 10:40 AM EST Office Visit Family Practice [facility] [address] [place] [address] Apolinar Wayne, [address] [place] [address] 04/04/2024 3:45 PM EST Pharmacy Pharmacy Hematology Oncology [facility] [address] [place] [address] [facility] Hem/Onc [address] [place] [address] 04/09/2024 12:30 PM EST Home Visit Barbara at [address] [place] [address] Betzy Vega RN [address] [place] [address] 04/13/2024 3:45 PM EST Pharmacy Pharmacy Hematology Oncology [facility] [address] [place] [address] [facility], [facility] Hem/Onc [address] [place] [address] 04/17/2024 2:20 PM EST Office Visit Family Practice [address] [place] [address] [address] [place] [address] Apolinar Wayne, DO [address] [place] [address] 04/19/2024 10:30 AM EST Imaging Radiology [address] [place] [address] 04/26/2024 9:00 AM EST Office Visit Hematology/Oncology [facility] [address] [place] [phone] Fernando Solo MD [address] [place] [address] 04/27/2024 3:00 PM EST Office Visit Family Practice [facility] [address] [place] [address] Apolinar Wayne, DO 293 [place] [address] 05/21/2024 2:30 PM EST Office Visit Urology Garima Meyers [address] [place] [address] Michelle Rodriguez PA-C [address] [place] [address] Scheduled Procedures Name Priority Associated Diagnoses Date/Ti [...] this encounter Medical Devices Implanted Type Area Noodle Press Operator Device Identifier Shelf Expiration Date Model / Serial / Lot Graft Lyoplant 5.0x5.0cm 2x2 - [id number] Implanted:Qty : 1 on 06/24/2020 by Madi Kaur MD at OR [facility] Right: Head B ALICEA : AESCULAP 11/18/2024 [id number] / / [id number] Graft Lyoplant 5.0x5.0cm 2x2 - [id number] Implanted:Qty : 1 on 06/24/2020 by Madi Kaur MD at OR [facility] B ALICEA : AESCULAP [id number] 11/18/2024 [id number] / [id number] / [id number] Graft Lyoplant 5.0x5.0cm 2x2 - [id number] Implanted:Qty : 1 on 06/24/2020 by Madi Kaur MD at OR [facility] Right: Head B ALICEA : AESCULAP 06/24/2020 [id number] / / [id number] Graft Lyoplant 5.0x5.0cm 2x2 - [id number] Implanted:Qty : 1 on 06/24/2020 by Madi Kaur MD at OR [facility] B ALICEA : AESCULAP [id number] 11/18/2024 [id number] / [id number] / [id number] Plate Ti Lo Pro Str 2h 421.502 - [id number] Implanted:Qty : 2 on 06/24/2020 by Madi Kaur MD at OR [facility] Right: Head SYNTHES MAXILLOFACIAL 421.502 / / Plate Bx Ti [id number] 421.521 - [id number] Implanted:Qty : 1 on 06/24/2020 by Madi Kaur MD at OR [facility] Right: Head SYNTHES MAXILLOFACIAL 421.521 / / Screw Ti Lo Pro Sd 4mm 400.834 - [id number] Implanted:Qty : 7 on 06/24/2020 by Madi Kaur MD at [facility] Right: Head SYNTHES MAXILLOFACIAL 400.834 / / documented as of this encounter Additional Health Concerns Infection Onset Date Last Indicated Resolved Time Respiratory Rule-Out 02/21/2024 02/21/2024 024 1:31 AM EST documented as of this encounter Advance Directives [...] Agents on File Name Relationship Healthcare Agent [facility] Communication Aimee Lam Spouse Health Care Agent Care Teams Cement Paver Relationship Specialty Start Date End Date Apolinar Wayne DO [address] [place] [address] PCP - General Internal Medicine 11/15/23 documented as of this encounter
--- OUTSIDE RECORDS SUMMARY | 2024-04-10 19:07 | External Medical Summary | Summary of Care ---
Author Name Unknown Organization [facility] Address [address] [place] [address] Phone [phone] Care Team Providers Care Service Tech Name Role Phone Apolinar Wayne DO Primary Care Provider [phone] Reason for Referral * Evaluate & Treat - Unlimited Visits (Within 3 days (urgent)) - Authorized Specialty Diagnoses / Procedures Referred By Andrez nicolas Referred To Contact Pharmacist / Pharmacy Diagnoses Glioblastoma (HCC) Carli Tao, [facility] [address] [place] [address] Phone: tel: fax: Referral ID Status Reason Start Date Expiration Date Visits Requested Visits Authorized [id number] Authorized Specialty Services Required 04/04/2024 99 99 Question Answer Referral Priority Within 3 days (urgent) Where should this appointment be scheduled? [facility] Referring Provider Role: Specialist Specialty: Heme/Onc Reason for Referral: Oral Chemo Has consent been obtained for new oral chemo agent(s)? Yes Comments ORAL CHEMOTHERAPY MTDM MONITORING REFERRAL This patient is being referred to the Oral Chemotherapy Clinic for medication co-management. The planned duration of treatment is: Until disease progression/toxicity Please start oral chemotherapy: Once therapy has arrived from specialty pharmacy Oral Chemotherapy Monitoring will continue until one of the following discharge criteria has been met. The provider will be informed if any of these occur. 1. Disease progression. 2. Patient non-compliance 3. Compliance and tolerating treatment well without major toxicities with routine provider follow up. 4. Completion of therapy. Additional Comments: n/a By my signature, I understand that my patient will have their medication therapy managed by the [facility] Medication Therapy Disease Management Clinic ([facility]) per established policies, procedures, and protocols. I also certify that this referral may serve as an initiation of service for the management of drug therapy in the above noted patient. [facility] providers will be responsible for scheduling patient visits, obtaining appropriate laboratory studies, and adjusting medication management therapy per patient's need, in addition to those roles spelled out in the clinic policy, procedures, and drug management protocols. I understand that the service provided by the [facility] Clinic is voluntary and have informed patient that they can refuse the service at their discretion. I am aware that the [facility] Clinic will provide me with a copy of the patient encounter via my [facility] Recordset. I authorize the [facility] Clinic to carry out these activities on my behalf. I consider this program to be a necessary part of the patient's medical care. Encounter Details Date Type Department Care Team (Late st Contact Info) Description 04/04/2024 Orders Only Hematology/Oncology Nasrin Mcl[place] [address] [place] [address] Fernando Solo MD [address] [place] [address] Glioblastoma (HCC)* Allergies Active Allergy Reactions Criticality [...] by mouth every afternoon. (get from the [facility]) 04/15/19 Active Vitamin D3 25 MCG (1000 UT) Oral CapsuleIndication s:general health Take 1 Capsule by mouth every evening. Active FreeStyle Aarti 2 SensorIndications :Type 2 diabetes mellitus with hemoglobin A1c goal of less than 7.0% ([facility]) Use as directed every 14 days [...] 10 mL 02/20/2024 4:13 PM EST 02/20/20 Active Additional Information Patient taking differently:Subcutaneous,10 units [...] 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 06/27/2018 longterm (current) use of insulin 10/27/2017 History of [...] mRNA, LNP-s, No Pre serve, 2-Dose Series (Hit the Mark) 03/10/2021,06/07/2020,05/17/2020 COVID-19, LNP-s, No Preserve , Chandler-sucrose, [...] 3:45 PM EST Pharmacy Pharmacy Hematology Oncology [address] [address] [facility] Hem/Onc [facility] [place] [address] Glioblastoma (HCC)* 04/09/2024 12:30 PM EST [facility] [address] [facility] [place] [address] Betzy Vega, HECTOR [address] [facility] [place] [address] 04/13/2024 3:45 PM EST Pharmacy Pharmacy Hematology Oncology [facility] [address] [place] [address] [facility] Hem/Onc [address] [place] [address] 04/17/2024 2:20 PM EST Office Visit Family Practice [facility] 293 [place] [phone] Apolinar Wayne, [address] [place] [address] 04/19/2024 10:30 AM EST Imaging Radiology [address], [place] [address] [facility] [address] 04/26/2024 9:00 AM EST [facility] [address] [place], [place] [phone] Fernando Solo MD [address] [place], [place] [address] 04/27/2024 3:00 PM EST Office Visit Family Practice [facility] [address] [place] [phone] Apolinar Wayne, DO [address] [place] [address] 05/21/2024 2:30 PM EST Office Visit Urology Garima Meyers [address] [place] [address] Michelle Rodriguez PA-C [address] [place] [address] Scheduled Orders Name Type Priority Associated Diagnoses Orde r Schedule CBC WITH WBC DIFFERENTIAL Lab STAT Glioblastoma (HCC) Other, Please specify in Comments field for 12 Occurrences starting 04/04/2024 until 04/04/2025 COMPREHENSIVE METABOLIC PANEL Lab STAT Glioblastoma (HCC) Every Month for 12 Occurrences starting 04/04/2024 until 04/04/2025 Scheduled Procedures Name Priority Associated Diagnoses Date/Ti [...] this encounter Medical Devices Implanted Type Area Inclusion Special Educator Device Identifier Shelf Expiration Date Model / Serial / Lot Graft Lyoplant 5.0x5.0cm 2x2 - [id number] Implanted:Qty : 1 on 06/24/2020 by Madi Kaur MD at OR [facility] Right: Head B ALICEA : AESCULAP 11/18/2024 [id number] / / [id number] Graft Lyoplant 5.0x5.0cm 2x2 - [id number] Implanted:Qty : 1 on 06/24/2020 by Madi Kaur MD at OR [facility] B ALICEA : AESCULAP [id number] 11/18/2024 [id number] / [id number] / [id number] Graft Lyoplant 5.0x5.0cm 2x2 - [id number] Implanted:Qty : 1 on 06/24/2020 by Madi Kaur MD at OR [facility] Right: Head B ALICEA : AESCULAP 06/24/2020 [id number] / / [id number] Graft Lyoplant 5.0x5.0cm 2x2 - [id number] Implanted:Qty : 1 on 06/24/2020 by Madi Kaur MD at OR [facility] B ALICEA : ARIAN [id number] 11/18/2024 [id number] / [id number] / [id number] Plate Ti Lo Pro Str 2h 421.502 - [id number] Implanted:Qty : 2 on 06/24/2020 by Madi Kaur MD at OR [facility] Right: Head SYNTHES MAXILLOFACIAL 421.502 / / Plate Bx Ti [id number] 421.521 - [id number] Implanted:Qty : 1 on 06/24/2020 by Madi Kaur MD at OR [facility] Right: Head SYNTHES MAXILLOFACIAL 421.521 / / Screw Ti Lo Pro Sd 4mm 400.834 - [id number] Implanted:Qty : 7 on 06/24/2020 by Madi Kaur MD at OR [facility] Right: Head SYNTHES MAXILLOFACIAL 400.834 / / documented as of this encounter Visit Diagnoses Diagnosis Glioblastoma (HCC)- Primary Malignant neoplasm of brain, unspecified site Glioblastoma (HCC)- Primary Malignant neoplasm of brain, [...] Agents on File Name Relationship [facility] Communication Aimee Lam Spouse Health Care Agent Care Teams Service Tech Relationship Specialty Start Date End Date Apolinar Wayne DO [address] [place] [address] PCP - General Internal Medicine 11/15/23 documented as of this encounter
--- OUTSIDE RECORDS SUMMARY | 2024-04-10 19:07 | External Medical Summary | Summary of Care ---
Author Name Unknown Organization [facility] Address [address] [place] [address] Phone [phone] Care Team Providers Care Director Credit Risk Name Role Phone Apolinar Wayne DO Primary Care Provider [phone] Reason for Referral * Ancillary Services (Within 10 days (routine)) - Authorized Specialty Diagnoses / Procedures Referred By Contac t Referred To Contact Billboard Mechanic Diagnoses Glioblastoma (HCC) Fernando Solo MD [address] [place] [address] Phone: tel: fax: Referral ID Status Reason Start Date Expiration Date Visits Requested Visits Authorized [id number] Authorized Ancillary Services Required 04/04/2024 999 999 Question Answer Referral Priority Within 10 days (routine) Where should this appointment be scheduled? Barbara Comments Is Patient homebound? Yes All sections of this form must be filled out completely. Forms with missing or illegible information will be returned for completion. This form should not be modified in any way. Forms that have been modified will be returned. This form may not be submitted by a home health agency. It must be complete and submitted by the ordering provider. One full business day lead time is required and service will be scheduled based on the next service day for the [facility] Home Phlebotomy does not service every geographical location on a daily basis. Contact [facility] Client Services at to find out service days for a specific location. Medical Laboratory [address] [place] [id number] Henry Mendiola M.D. Director and Cop Winder Patient Name: Denis Lam : 1950 Sex: male Address [address] [facility] [place] [address] Provider: @REF@? Apolinar Wayne, DO? Diagnosis: No diagnosis found. Tests Requested CBCd - weekly starting April 16, 2024 CMP - weekly starting April 16, 2024 Encounter Details Date Type Department Care Team (Late st Contact Info) Description 04/04/2024 Orders Only Hematology/Oncology [facility] [place] [address] [place] [phone] Fernando Solo MD [address] [place] [address] Glioblastoma (HCC)* Allergies Active Allergy Reactions Criticality [...] hemoglobin A1c goal of less than 7.0% ([facility]) Use as directed every 14 days [...] 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 06/27/2018 rn long term care (current) use of insulin 10/27/2017 History of [...] mRNA, LNP-s, No Pre serve, 2-Dose Series (Torqeedo) 03/10/2021,06/07/2020,05/17/2020 COVID-19, LNP-s, No Preserve , Chandler-sucrose, Ages 12+ (Pfizer) 11/17/2021 COVID-19, MRNA-LNP, PF, 30 M CG/0.3 mL, 12 YRS AND ABOVE, IM ([facility]) 01/17/2024,03/08/2023 Covid-19, Mrna, Lnp-s, Pf, B ivalent, [...] 3:45 PM EST Pharmacy Pharmacy Hematology Oncology [place] [address] [place] [address] [facility] Hem/Onc [address] [place] [address] Glioblastoma (HCC)* 04/09/2024 12:30 PM EST Home Visit [facility] [place] [address] Betzy Vega RN [address] [place] [address] 04/11/2024 3:45 PM EST Pharmacy Pharmacy Hematology Oncology [facility] [address] [place] [address] [facility], [facility] Hem/Onc [address] [place] [address] 04/17/2024 2:20 PM EST Office Visit Family Practice [address] [place] [address] [address] [place] [address] Apolinar Wayne, DO [address] [place] [address] 04/19/2024 10:30 AM EST Imaging Radiology [address] [place] [phone] 04/26/2024 9:00 AM EST Office Visit Hematology/Oncology [facility] [address] [facility] [place] [address] Fernando Solo MD [address] [place] [address] 04/27/2024 3:00 PM EST Office Visit [address] [place] [address] Apolinar Wayne, DO [address] [place] [address] 05/21/2024 2:30 PM EST Office Visit Urology Garima Meyers [address] [place] [address] Michelle Rodriguez PA-C [address] [place] [address] Scheduled Procedures Name Priority Associated Diagnoses Date/Ti me COLONOSCOPY FLEXIBLE PROXIMAL DIAGNOSTIC Recall History of colonic polyps ESOPHAGOGASTRODUODENOSCOPY ( EGD), FLEXIBLE, TRANSORAL, DIAGNOSTIC Recall Hedrick's esophagus Scheduled Referrals Name Type Priority Associated Diagnoses Orde r Schedule HOME PHLEBOTOMY REFERRAL OP Referral Within 10 days (routine) Glioblastoma ([facility]) Ordered: 04/04/2024 Health Maintenance Due Date Last [...] this encounter Medical Devices Implanted Type Area Healthcare Customer Service Device Identifier Shelf Expiration Date Model / Serial / Lot Graft Lyoplant 5.0x5.0cm 2x2 - [id number] Implanted:Qty : 1 on 06/24/2020 by Madi Kaur MD at [place] [facility] Right: Head B ALICEA : AESCULAP 11/18/2024 [id number] / / [id number] Graft Lyoplant 5.0x5.0cm 2x2 - [id number] Implanted:Qty : 1 on 06/24/2020 by Madi Kaur MD at [place] [facility] B ALICEA : AESCULAP [id number] 11/18/2024 [id number] / [id number] / [id number] Graft Lyoplant 5.0x5.0cm 2x2 - [id number] Implanted:Qty : 1 on 06/24/2020 by Madi Kaur MD at [place] [facility] Right: Head B ALICEA : AESCULAP 06/24/2020 [id number] / / [id number] Graft Lyoplant 5.0x5.0cm 2x2 - [id number] Implanted:Qty : 1 on 06/24/2020 by Madi Kaur MD at [place] [facility] B ALICEA : AESCULAP [id number] 11/18/2024 [id number] / [id number] / [id number] Plate Ti Lo Pro Str 2h 421.502 - [id number] Implanted:Qty : 2 on 06/24/2020 by Madi Kaur MD at OR [facility] Right: Head SYNTHES MAXILLOFACIAL 421.502 / / Plate Bx Ti [id number] 4h 421.521 - [id number] Implanted:Qty : 1 on 06/24/2020 by Madi Kaur MD at OR [facility] Right: Head SYNTHES MAXILLOFACIAL 421.521 / / Screw Ti Lo Pro Sd 4mm 400.834 - [id number] Implanted:Qty : 7 on 06/24/2020 by Madi Kaur MD at [facility] Right: Head SYNTHES MAXILLOFACIAL 400.834 [...] Healthcare Agent [facility] Shira Lam Spouse Health Care Agent Care Teams Director Credit Risk Relationship Specialty Start Date End Date Apolinar Wayne DO [address] [place] [address] PCP - General Internal Medicine 11/15/23 documented as of this encounter
--- OUTSIDE RECORDS SUMMARY | 2024-04-10 19:08 | External Medical Summary | Summary of Care ---
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 04/15/19 Active Vitamin D3 25 MCG (1000 UT) Oral CapsuleIndication s:general health Take 1 Capsule by mouth every evening. Active FreeStyle Aarti 2 SensorIndications :Type 2 diabetes mellitus with hemoglobin A1c goal of less than 7.0% ([facility]) Use as directed every 14 days . [...] 4 4:13 PM EST 02/20/20 24 Active Additional Information Patient taking differently:Subcutaneous,10 units daily, Reported on 04/02/2024 Multiple Vitamins Oral Tablet Take 1 Tablet [...] morning. 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 insulin 10/27/2017 History [...] as of this encounter (statuses as of 04/02/2024) Resolved Problems Problem Noted Date Diagnosed Date [...] as of this encounter (statuses as of 04/02/2024) Immunizations Name Administration Dates Next Due COVID-19 mRNA, LNP-s, No Pre serve, 2-Dose Series (Keduo) 03/10/2021,06/07/2020,05/17/2020 COVID-19, LNP-s, No Preserve , Chandler-sucrose, Ages 12+ (Keduo) 11/17/2021 COVID-19, MRNA-LNP, PF, 30 M CG/0.3 mL, 12 YRS AND ABOVE, IM (AmideBio-Comirnat) 01/17/2024,03/08/2023 Covid-19, Mrna, Lnp-s, Pf, B ivalent, [...] IM (Adacel) 11/17/2023, Varicella Zoster Vaccine (Adult) 11/21/2013,07/03/2013 Zoster Vaccine Recombinant (Shingrix) 12/10/2019 ,03/04/2019 documented [...] lonely or isolated from ose around you? Rarely 03/06/2024 Financial Resource [...] encounter Miscellaneous Notes * Telephone Encounter - José Manuel aWyne DO - 04/02/2024 2:03 PM ESTSigned Prescriptions: Disp Refills Carvedilol 3.125 MG Oral Tablet (Coreg) 200 Ta*3 Sig: Take 1 Tablet by mouth 2 times a day with morning and evening meals.Authorizing Provider: JOSÉ MANUEL WAYNE Tamsulosin HCl 0.4 MG Oral Capsule (Flomax)100 Ca*3 Sig: Take 1 Capsule by mouth in the morning.Authorizing Provider: JOSÉ MANUEL WAYNE * Telephone Encounter - Betzy Vega RN - 04/02/2024 12:[address] Wayne- Medication bottle review- Two scripts pended. Also,needs Xarelto filled but is listed as historical.Will need added. Is out of all three meds after today. Please approve. Pharmacy selected. Thanks! Radha documented in this encounter Plan of Treatment Upcoming Encounters Date Type Department Care Team (Late st Contact Info) Description 04/03/2024 9:30 AM EST Scheduled Telephone Care Coordination and Integration [address] [place] [address] Mary Jane Valdez, Community Health Fast Food Restaurant Manager [address] [place] [address] 04/03/2024 3:40 PM EST Office Visit Family Practice [address] [place] [phone] José Manuel Wayne DO [address] [place] [address] 04/04/2024 10:40 AM EST Office Visit Family Practice [address] [place] [address] [address] [place] [phone] José Manuel Wayne, [address] [place] [address] 04/04/2024 3:45 PM EST Pharmacy Pharmacy Hematology Oncology [facility] [address] [place] [address] [facility] Hem/Onc [address] [place] [address] 04/09/2024 12:30 PM EST [facility] Visit [facility] [address] [place] [address] Betzy Vega, RN [address] [place] [address] 04/13/2024 3:45 PM EST Pharmacy Pharmacy Hematology Oncology [facility] [address] [place] [address] [facility] Hem/Onc [address] [place] [address] 04/19/2024 10:30 AM EST Imaging Radiology [address] [place] [phone] 04/26/2024 9:00 AM EST Office Visit Hematology/Oncology [facility] 200 [facility] [place] [phone] Fernando Solo MD [address] [place] [address] 04/27/2024 3:00 PM EST Office Visit Family Practice [address] [facility] [address] [place] [address] José Manuel Wayne, [address] [place] [address] 05/21/2024 2:30 PM EST Office Visit Urology Garima Meyers [address] [place] [address] Michelle Rodriguez PA-C [address] [place] [address] Scheduled Procedures Name Priority Associated Diagnoses Date/Ti [...] this encounter Medical Devices Implanted Type Area Supervisor Pipe Manufacture Device Identifier Shelf Expiration Date Model / Serial / Lot Graft Lyoplant 5.0x5.0cm 2x2 - [id number] Implanted:Qty : 1 on 06/24/2020 by Madi Kaur MD at [place] [facility] Right: Head B ALICEA : AESCULAP 11/18/2024 [id number] / / [id number] Graft Lyoplant 5.0x5.0cm 2x2 - [id number] Implanted:Qty : 1 on 06/24/2020 by Madi Kaur MD at OR [facility] B ALICEA : AESCULAP [id number] 11/18/2024 [id number] / [id number] / [id number] Graft Lyoplant 5.0x5.0cm 2x2 - [id number] Implanted:Qty : 1 on 06/24/2020 by Madi Kaur MD at OR [facility] Right: Head B ALICEA : AESCULAP 06/24/2020 [id number] / / [id number] Graft Lyoplant 5.0x5.0cm 2x2 - [id number] Implanted:Qty : 1 on 06/24/2020 by Madi Kaur MD at OR [facility] B ALICEA : AESCULAP [id number] 11/18/2024 [id number] / [id number] / [id number] Plate Ti Lo Pro Str 2h 421.502 - [id number] Implanted:Qty : 2 on 06/24/2020 by Madi Kaur MD at OR [facility] Right: Head SYNTHES MAXILLOFACIAL 421.502 / / Plate Bx Ti [id number] 4h 421.521 - [id number] Implanted:Qty : 1 on 06/24/2020 by Madi Kaur MD at OR [facility] Right: Head SYNTHES MAXILLOFACIAL 421.521 / / Screw Ti Lo Pro Sd 4mm 400.834 - [id number] Implanted:Qty : 7 on 06/24/2020 by Madi Kaur MD at OR [facility] Right: Head SYNTHES MAXILLOFACIAL 400.834 / / documented as of this encounter Visit Diagnoses Diagnosis 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 [address] PCP - General Internal Medicine 11/15/23 documented as of this encounter
--- OUTSIDE RECORDS SUMMARY | 2024-04-10 19:08 | External Medical Summary | Summary of Care ---
Author Name Unknown Organization [facility] Address [address] [place] [address] Phone [phone] Care Team Providers Care Counseling Specialist Name Role Phone Apolinar Wayne DO Primary Care Provider [phone] Reason for Visit * Reason Onset Date Comments Information 04/02/2024 Encounter Details Date Type Department Care Team (Late st Contact Info) Description 04/02/2024 Telephone Family Practice 65 [facility] [place] [address] [place] [address] Apolinar Wayne DO [address] [place] [address] Information (/) Allergies Active Allergy Reactions Criticality Noted Date [...] goal of less than 7.0% ([facility]) Use as directed every 14 days . 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/27/2017 History of [...] mRNA, LNP-s, No Pre serve, 2-Dose Series ([employer]) 03/10/2021,06/07/2020,05/17/2020 COVID-19, LNP-s, No Preserve , Chandler-sucrose, Ages 12+ (Pfizer) 11/17/2021 COVID-19, MRNA-LNP, PF, 30 M CG/0.3 mL, 12 YRS AND ABOVE, IM ([employer]-Comirnaty) 01/17/2024,03/08/2023 Covid-19, Mrna, Lnp-s, Pf, B ivalent, 30 Mcg, IM, 12 yrs and above ([employer]) 04/13/2022 H1N1 2009 Influenza, IM 12/10/2019,04/01/2009 Pneumococcal [...] encounter Miscellaneous Notes * Telephone Encounter - Sadie Madera LPN - 04/02/2024 1:48 PM EST See my g, patient is scheduled tomorrow with Dr Wayne. * Telephone Encounter - Sadie Madera LPN - 04/02/2024 9:54 AM EST Called home number, not able to leave a message. Called cell phone and left message. Sent my [employer] message. Patient had a fall, called the office and was advised to go to ER. Patient did not go to er. Would patient like to be seen here at office? If so, please schedule. Thank you documented in this encounter Plan of Treatment Upcoming Encounters Date Type Department Care Team (Late st Contact Info) Description 04/03/2024 9:30 AM EST Scheduled Telephone Care Coordination and Integration [address] [place] [address] Mary Jane Valdez, Community Health Video Game Programmer [address] [place] [address] 04/03/2024 3:40 PM EST Office Visit [address] [place] [phone] Apolinar Wayne, DO [address] [place] [address] 04/04/2024 10:40 AM EST Office Visit [address] [place] [phone] Apolinar Wayne, DO [address] [place] [address] 04/04/2024 3:45 PM EST Pharmacy Pharmacy Hematology Oncology [address] [address] [facility] Hem[facility]Onc [facility] [place][note 2] [place] [address] 04/09/2024 12:30 PM EST Home Visit [facility] 132 [facility] [place] [address] Betzy Vega RN 132 [facility] [address] 04/13/2024 3:45 PM EST Pharmacy Pharmacy Hematology Oncology [place] [address] [place] [address] [facility] Hem/Onc [address] [place] [address] 04/19/2024 10:30 AM EST Imaging Radiology [address], [place] [address] [phone] 04/26/2024 9:00 AM EST Office Visit Hematology/Oncology [facility] [place] [facility] [place] [phone] Fernando Solo MD [address] [facility] [place] [address] 04/27/2024 3:00 PM EST Office Visit Family Practice 65 [facility] [place] 293 Fifi Zamora [place] [address] Apolinar Wayne, [address] [facility] [address] 05/21/2024 2:30 PM EST Office Visit Urology Garima Meyers [address] [place] [address] Michelle Rodriguez PA-C [address] [place] [address] Scheduled Procedures Name Priority Associated Diagnoses Date/Ti [...] this encounter Medical Devices Implanted Type Area Square Shear Operator Device Identifier Shelf Expiration Date Model / Serial / Lot Graft Lyoplant 5.0x5.0cm 2x2 - [id number] Implanted:Qty : 1 on 06/24/2020 by Madi Kaur MD at OR [facility] Right: Head B ALICEA : AESCULAP 11/18/2024 [id number] / / [id number] Graft Lyoplant 5.0x5.0cm 2x2 - [id number] Implanted:Qty : 1 on 06/24/2020 by Madi Kaur MD at OR [facility] B ALICEA : AESCULAP [id number] 11/18/2024 [id number] / [id number] / [id number] Graft Lyoplant 5.0x5.0cm 2x2 - [id number] Implanted:Qty : 1 on 06/24/2020 by Madi Kaur MD at OR [facility] Right: Head B ALICEA : AESCULAP 06/24/2020 [id number] / / [id number] Graft Lyoplant 5.0x5.0cm 2x2 - [id number] Implanted:Qty : 1 on 06/24/2020 by Madi Kaur MD at OR [facility] B ALICEA : AESCULAP [id number] 11/18/2024 [id number] / [id number] / [id number] Plate Ti Lo Pro Str 2h 421.502 - [id number] Implanted:Qty : 2 on 06/24/2020 by Madi Kaur MD at OR [facility] Right: Head SYNTHES MAXILLOFACIAL 421.502 / / Plate Bx Ti [id number] 4h 421.521 - [id number] Implanted:Qty : 1 on 06/24/2020 by Madi Kaur MD at OR [facility] Right: Head SYNTHES MAXILLOFACIAL 421.521 / / Screw Ti Lo Pro Sd 4mm 400.834 - [id number] Implanted:Qty : 7 on 06/24/2020 by Madi Kaur MD at OR [facility] Right: Head SYNTHES MAXILLOFACIAL 400.834 / / [...] Agents on File Name Relationship [facility] Communication Aimee Lam Spouse Health Care Agent Care Teams Counseling Specialist Relationship Specialty Start Date End Date Apolinar Wayne DO [address] [place] [address] PCP - General Internal Medicine 11/15/23 documented as of this encounter
--- OUTSIDE RECORDS SUMMARY | 2024-04-10 19:08 | External Medical Summary | Summary of Care ---
Author Name Unknown Organization [facility] Address [address] [place] [address] Phone [phone] Care Team Providers Care Admitting Clerk Name Role Phone Apolinar Wayne DO Primary Care Provider [phone] Reason for Visit * Reason Onset Date Comments Information 04/02/2024 Encounter Details Date Type Department Care Team (Late st Contact Info) Description 04/02/2024 Telephone Family Practice 65 [facility], [place] [address] [place] [address] Apolinar Wayne DO [address] [place] [address] Information (/) Allergies Active Allergy [...] by mouth every afternoon. (get from the [place]) 04/15/19 Active Vitamin D3 25 MCG (1000 UT) Oral CapsuleIndication s:general health Take 1 Capsule by mouth every evening. 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/2017 History of [...] mRNA, LNP-s, No Pre serve, 2-Dose Series (Leadformance) 03/10/2021,06/07/2020,05/17/2020 COVID-19, LNP-s, No Preserve , Chandler-sucrose, Ages 12+ (Pfizer) 11/17/2021 COVID-19, MRNA-LNP, PF, 30 M CG/0.3 mL, 12 YRS AND ABOVE, IM ([employer]-Comirnaty) 01/17/2024,03/08/2023 Covid-19, Mrna, Lnp-s, Pf, B ivalent, 30 Mcg, IM, 12 yrs and above (Leadformance) 04/13/2022 H1N1 2009 Influenza, IM 12/10/2019,04/01/2009 Pneumococcal [...] Author No 06/29/2020 5:01 AM Sa valentine oMrse RN documented in this encounter Miscellaneous Notes * Telephone Encounter - Sadie Madera LPN - 04/02/2024 1:48 PM EST See my g, patient is scheduled tomorrow with Dr Wayne. * Telephone Encounter - Sadie Madera LPN - 04/02/2024 9:54 AM EST Called home number, not able to leave a message. Called cell phone and left message. Sent my [employer] message. Patient had a fall, called the [...] Telephone Care Coordination and Integration [address] [place] [address] Mary Jane Valdez, Community Health Machine Zipper Trimmer [address] [place] [address] 04/03/2024 3:40 PM EST Office Visit [address] [place] [phone] Apolinar Wayne, DO [address] [place] [address] 04/04/2024 10:40 AM EST Office Visit [address] [place] [phone] Apolinar Wayne, DO [address] [place] [address] 04/04/2024 3:45 PM EST Pharmacy Pharmacy Hematology Oncology [address] [address] [facility], [facility] Hem/Onc [facility] [place] [address] 04/09/2024 12:30 PM EST Home Visit [facility] 132 [facility] [place] [address] Betzy Vega RN 132 [facility] [address] 04/13/2024 3:45 PM EST Pharmacy Pharmacy Hematology Oncology [place] [address] [place] [address] [facility], [facility] Hem/Onc [address] [place] [address] 04/19/2024 10:30 AM EST Imaging Radiology [address], [place] [address] [place] [phone] 04/26/2024 9:00 AM EST Office Visit Hematology/Oncology Nasrin Mclaughlin [place] 200 [facility] [place] [phone] Fernando Solo MD 200 [facility] [place] [address] 04/27/2024 3:00 PM EST Office Visit Family Practice 65 [facility] [place] 293 Fifi Zamora [place] [phone] Apolinar Wayne, 293 [facility] [address] 05/21/2024 2:30 PM EST Office Visit Urology Garima Meyers [address] [place] [address] Michelle Rodriguez PA-C 27 [place] [address] Scheduled Procedures Name Priority Associated Diagnoses Date/Ti [...] this encounter Medical Devices Implanted Type Area Medtronics Technician Device Identifier Shelf Expiration Date Model / Serial / Lot Graft Lyoplant 5.0x5.0cm 2x2 - [id number] Implanted:Qty : 1 on 06/24/2020 by Madi Kaur [place] [facility] [place] [facility] [place] Head B ALICEA : AESCULAP 11/18/2024 [id number] / / [id number] Graft Lyoplant 5.0x5.0cm 2x2 - [id number] Implanted:Qty : 1 on 06/24/2020 by Madi Kaur [place] [facility] [place] [facility] [place] ALICEA : AESCULAP [id number] 11/18/2024 [id number] / [id number] / [id number] Graft Lyoplant 5.0x5.0cm 2x2 - [id number] Implanted:Qty : 1 on 06/24/2020 by Madi Kaur MD [place] [facility] [place] [facility] [place] Head B ALICEA : AESCULAP 06/24/2020 [id number] / / [id number] Graft Lyoplant 5.0x5.0cm 2x2 - [id number] Implanted:Qty : 1 on 06/24/2020 by Madi Kaur MD [place] [facility] [place] [facility] [place] B ALICEA : AESCULAP [id number] 11/18/2024 [id number] / [id number] / [id number] Plate Ti Lo Pro Str 2h 421.502 - [id number] Implanted:Qty : 2 on 06/24/2020 by Madi Kaur [place] [facility] [place] [facility] [place] Head SYNTHES MAXILLOFACIAL 421.502 / / Plate Bx Ti [id number] 4h 421.521 - [id number] Implanted:Qty : 1 on 06/24/2020 by Madi Kaur [place] [facility] [place] Head SYNTHES MAXILLOFACIAL 421.521 / / Screw Ti Lo Pro Sd 4mm 400.834 - [id number] Implanted:Qty : 7 on 06/24/2020 by Madi Kaur MD [place] [facility] [place] [facility] [place] Head SYNTHES MAXILLOFACIAL [...] Agents on File Name Relationship [facility] Communication Aimee Lam Spouse Health Care Agent Care Teams Admitting Clerk Relationship Specialty Start Date End Date Apolinar Wayne DO [address] [place] [address] PCP - General Internal Medicine 11/15/23 documented as of this encounter
--- OUTSIDE RECORDS SUMMARY | 2024-04-10 19:08 | External Medical Summary | Summary of Care ---
Author Name Unknown Organization [facility] Address [address] [place] [address] Phone [phone] Care Team Providers Care Ekg Tech Name Role Phone Apolinar Wayne DO Primary Care Provider [phone] Reason for Visit * Reason Onset Date Comments Home Health 03/30/2024 Encounter Details Date Type Department Care Team (Late st Contact Info) Description 03/30/2024 Telephone Family Practice [address], [place] [address] [place] [address] Apolinar Wayne DO [address] [place] [address] Home Health Allergies Active Allergy Reactions Criticality Noted Date Comments Erythromycin 07/02/1998 GI upset Guaifenesin & Derivatives 03/18/1997 nucofed documented as of this encounter (statuses as of 03/30/2024) Medications BD Pen Needle Altagracia U/F 32G [...] A1c goal of less than 7.0% ([facility]) Use as directed every 14 days . 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) TAKE ONE TABLET BY MOUTH TWICE A DAY WITH MORNING AND EVENING MEALS 200 Tablet 3 03/10/2024 11:53 AM EST 05/17/19 24 025 Active Pantoprazole Sodium 40 MG Oral Tablet Delayed Release (Protonix)Indicat ions:Heartburn TAKE ONE TABLET BY MOUTH EVERY DAY 100 Tablet 3 03/22/2024 9:33 AM EST 05/29/19 24 025 Active Tamsulosin HCl 0.4 MG Oral Capsule (Flomax) TAKE ONE CAPSULE BY MOUTH EVERY DAY 100 Capsule 3 12/22/2023 6:21 PM EDT 10/02/20 24 Active Valtoco 10 MG Dose 10 [...] 03/27/2024 2:09 PM EST 03/26/19 25 Active documented as of this encounter (statuses as of 03/30/2024) Active Problems Problem Noted Date Diagnosed Date [...] 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 06/27/2018 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 History of [...] as of this encounter (statuses as of 03/30/2024) Resolved Problems Problem Noted Date Diagnosed Date [...] as of this encounter (statuses as of 03/30/2024) Immunizations Name Administration Dates Next Due COVID-19 mRNA, LNP-s, No Pre serve, 2-Dose Series (mBlox) 03/10/2021,06/07/2020,05/17/2020 COVID-19, LNP-s, No Preserve , Chandler-sucrose, Ages 12+ (Pfizer) 11/17/2021 COVID-19, MRNA-LNP, PF, 30 M CG/0.3 mL, 12 YRS AND ABOVE, IM (PFIZER-Comirnaty) 01/17/2024,03/08/2023 Covid-19, Mrna, Lnp-s, Pf, B ivalent, 30 Mcg, IM, 12 yrs and above (mBlox) 04/13/2022 H1N1 2009 Influenza, IM 12/10/2019,04/01/2009 Pneumococcal [...] Assessment Author No 06/29/2020 5:01 AM EDT Onofre, Sa rah J, RN * Do you have serious difficulty [...] Telephone Encounter - Sadie Madera LPN - 03/30/2024 10:48 AM EST See prior note, patient did have a fall last night and is being sent to ER currently * Telephone Encounter - Crissy Lassiter OSA - 03/30/2024 10:40 AM EST Dany luna speech therapist from [facility] home health called. She wanted to report that patient had a fall.Patient couldn't remember the date. Patient did state he made his pcp aware. Dany will continue with speech therapy one time a week for the next three weeks focusing on Executive functioning. While speaking with Dany she was looking in patient's notes and saw that a METAL DRILLING MACHINE OPERATOR had contacted the clinic about patient having a fall on 03/22/24. documented in this encounter Plan of Treatment Upcoming Encounters Date Type Department Care Team (Late st Contact Info) Description 04/02/2024 12:30 PM EST Home Visit [facility], [facility] 132 [facility] [place] [address] Betzy Vega, HECTOR 132 [facility] [place] [address] 04/03/2024 9:30 AM EST Scheduled Telephone Care Coordination and Integration [address] [place] [address] Mary Jane Valdez, Community Health Linderman Operator [address] [place] [address] 04/03/2024 3:40 PM EST Office Visit Family Practice [address] [place] [address] [address] [place] [address] Apolinar Wayne, 293 [place] [address] 04/04/2024 3:45 PM EST Pharmacy Pharmacy Hematology Oncology [facility] [address] [place] [address] [facility], [facility] Hem/Onc [address] [place] [address] 04/13/2024 3:45 PM EST Pharmacy Pharmacy Hematology Oncology [facility] [address] [place] [address] [facility], [facility] Hem/Onc [address] [place] [address] 04/19/2024 10:30 AM EST Imaging Radiology [address] 132 [facility] [place] [address] 04/26/2024 9:00 AM EST Office Visit Hematology/Oncology [facility] 200 [address] [place] [phone] Fernando Solo MD [address] [place] [address] 04/27/2024 3:00 PM EST Office Visit Family Practice [address], [place] 293 [facility] [place] [address] Apolinar Wayne DO 293 [facility] [address] 05/21/2024 2:30 PM EST Office Visit Urology Garima Meyers [address] [place] [address] Michelle Rodriguez PA-C [address] [place] [address] Scheduled Procedures Name Priority Associated Diagnoses Date/Ti [...] this encounter Medical Devices Implanted Type Area Pressroom Foreman Device Identifier Shelf Expiration Date Model / Serial / Lot Graft Lyoplant 5.0x5.0cm 2x2 - [id number] Implanted:Qty : 1 on 06/24/2020 by Madi Kuar MD at [place] [facility] [place] Right: Head B ALICEA : AESCULAP 11/18/2024 [id number] / / [id number] Graft Lyoplant 5.0x5.0cm 2x2 - [id number] Implanted:Qty : 1 on 06/24/2020 by Madi Kaur MD at [place] [facility] [place] B ALICEA : AESCULAP [id number] 11/18/2024 [id number] / [id number] / [id number] Graft Lyoplant 5.0x5.0cm 2x2 - [id number] Implanted:Qty : 1 on 06/24/2020 by Madi Kaur MD at [place] [facility] [place] Right: Head B ALICEA : AESCULAP 06/24/2020 [id number] / / [id number] Graft Lyoplant 5.0x5.0cm 2x2 - [id number] Implanted:Qty : 1 on 06/24/2020 by Madi Kaur MD at [place] [facility] [place] B ALICEA : ARIAN [id number] 11/18/2024 [id number] / [id number] / [id number] Plate Ti Lo Pro Str 2h 421.502 - [id number] Implanted:Qty : 2 on 06/24/2020 by Madi Kaur MD at [place] [facility] [place] Right: Head SYNTHES MAXILLOFACIAL 421.502 / / Plate Bx Ti [id number] 4h 421.521 - [id number] Implanted:Qty : 1 on 06/24/2020 by Madi Kaur MD at [place] [facility] [place] Right: Head SYNTHES MAXILLOFACIAL 421.521 / / Screw Ti Lo Pro Sd 4mm 400.834 - [id number] Implanted:Qty : 7 on 06/24/2020 by Madi Kaur MD at [place] [facility] [place] Right: Head SYNTHES MAXILLOFACIAL [...] Lam Spouse Health Care Agent Care Teams Ekg Tech Relationship Specialty Start Date End Date Apolinar Wayne DO [address] [place] [address] PCP - General Internal Medicine 11/15/23 documented as of this encounter
--- OUTSIDE RECORDS SUMMARY | 2024-04-10 19:08 | External Medical Summary | Summary of Care ---
Author Name Unknown Organization [facility] Address [address] [place] [address] Phone [phone] Care Team Providers Care Band Lining Bander Name Role Phone Apolinar Wayne DO Primary Care Provider [phone] Reason for Visit * Reason Onset Date Comments Medication Refill 04/02/2024 Encounter Details Date Type Department Care Team (Late st Contact Info) Description 04/02/2024 Refill Family Practice [address], [place] [address] [place] [phone] Apolinar Wayne DO [address] [place] [address] History of deep venous thrombosis (DVT) of distal vein of left lower extremity*; Current moderate episode of major depressive disorder without prior episode (HCC); PTSD (post-traumatic stress disorder); 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 [...] of major depressive disorder without prior episode ([facility]),PTSD (post-traumatic stress disorder) Take 1 Tablet by [...] Nasal Liquid (diazePAM)Indicat ions:Localization -related epilepsy, intractable ([facility]) Administer 10 mg into nostril as needed [...] with dinner. 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/2017 History [...] mRNA, LNP-s, No Pre serve, 2-Dose Series ([employer]) 03/10/2021,06/07/2020,05/17/2020 COVID-19, LNP-s, No Preserve , Chandler-sucrose, Ages 12+ (Pfizer) 11/17/2021 COVID-19, MRNA-LNP, PF, 30 M CG/0.3 mL, 12 YRS AND ABOVE, IM ([facility]) 01/17/2024,03/08/2023 Covid-19, Mrna, Lnp-s, Pf, B ivalent, [...] of Assessment Author No 06/29/2020 4:00 PM Giulia Briggs RN * Do you have difficulty [...] encounter Miscellaneous Notes * Telephone Encounter - Adilia Akbar RPh - 04/02/2024 2:44 PM ESTPending Prescriptions: Disp Refills Rivaroxaban 20 MG Oral Tablet (Xarelto) 30 Tab*0 Sig: Take 1 Tablet by mouth every evening. * Telephone Encounter - Adilia Akbar [facility] - 04/02/2024 2:33 PM EST Patient Phone Numbers Email requested refills of sertraline and carvedilol to [facility], however patient should currently have plenty at home from mail order. Called patient and spoke to . She reports she cannot find the carvedilol or xarelto bottles anywhere. Did find the sertraline. Carvedilol already sent by pcp to [facility]. Also pended Xarelto [facility]. [facility]. Pended to PCP Adilia Ventura, Pharm D, BCACP Clinical Pharmacist [address] [place] [address] - Medication Therapy [facility] 04/02/2024, 2:43 PM Ph. [phone] documented in this encounter Plan of Treatment Upcoming Encounters Date Type Department Care Team (Late st Contact Info) Description 04/03/2024 9:30 AM EST Scheduled Telephone Care Coordination and Integration [address] [place] [address] Mary Jane Valdez, Community Health Drawbench Operator [address] [place] [address] 04/03/2024 3:40 PM EST Office Visit Family Practice [address] [place] [phone] Apolinar Wayne, [address] [place] [address] 04/04/2024 10:40 AM EST Office Visit Family Practice [address] [place] [address] [address] [place] [phone] Apolinar Wayne, [address] [place] [address] 04/04/2024 3:45 PM EST Pharmacy Pharmacy Hematology Oncology [facility], [place] [address] [place] [address] [facility], [facility] Hem/Onc [address] [place] [address] 04/09/2024 12:30 PM EST Home Visit [facility] 132 [place] [address] Betzy Vega, HECTOR 132 [facility] [place] [address] 04/13/2024 3:45 PM EST Pharmacy Pharmacy Hematology Oncology [facility], [place] [address] [place] [address] [facility], [facility] Hem/Onc [address] [place] [address] 04/19/2024 10:30 AM EST Imaging Radiology [address] 132 [place] [phone] 04/26/2024 9:00 AM EST Office Visit Hematology/Oncology [facility] 200 [facility] [place] [phone] Fernando Solo MD 200 [place] [address] 04/27/2024 3:00 PM EST Office Visit Family Practice 65 [facility], [place] 293 [place] [phone] Apolinar Wayne DO 293 [facility] [place] [place] [address] 05/21/2024 2:30 PM EST Office Visit Urology Garima Meyers [address] [facility] [address] [place] [address] Michelle Rodriguez PA-C [address] [place] [address] Scheduled Procedures Name Priority Associated Diagnoses Date/Ti [...] 08/12/2021, Additional history exists HbA1c 07/30/2024 01/31/2024, 0811/2023, 08/09/2023, Additional history exists Colonoscopy 11/01/2024 11/02/2019, [...] this encounter Medical Devices Implanted Type Area Oil Well Driller Device Identifier Shelf Expiration Date Model / Serial / Lot Graft Lyoplant 5.0x5.0cm 2x2 - [id number] Implanted:Qty : 1 on 06/24/2020 by Madi Kaur MD [place] [facility] [place]: Head B ALICEA : AESCULAP 11/18/2024 [id number] / / [id number] Graft Lyoplant 5.0x5.0cm 2x2 - [id number] Implanted:Qty : 1 on 06/24/2020 by Madi Kaur MD [place] [facility] [place] B ALICEA : AESCULAP [id number] 11/18/2024 [id number] / [id number] / [id number] Graft Lyoplant 5.0x5.0cm 2x2 - [id number] Implanted:Qty : 1 on 06/24/2020 by Madi Kaur MD [place] [facility] [place]: Head B ALICEA : AESCULAP 06/24/2020 [id number] / / [id number] Graft Lyoplant 5.0x5.0cm 2x2 - [id number] Implanted:Qty : 1 on 06/24/2020 by Madi Kaur MD [place] [facility] [place] B ALICEA : AESCULAP [id number] 11/18/2024 [id number] / [id number] / [id number] Plate Ti Lo Pro Str 2h 421.502 - [id number] Implanted:Qty : 2 on 06/24/2020 by Madi Kaur MD at [place] [facility] [place]: Head SYNTHES MAXILLOFACIAL 421.502 / / Plate Bx Ti [id number] 4h 421.521 - [id number] Implanted:Qty : 1 on 06/24/2020 by Madi Kaur MD at [place] [facility] [place]: Head SYNTHES MAXILLOFACIAL 421.521 / / Screw Ti Lo Pro Sd 4mm 400.834 - [id number] Implanted:Qty : 7 on 06/24/2020 by Madi Kaur MD at [place] [facility] [place]: Head SYNTHES MAXILLOFACIAL 400.834 / / documented as of this encounter Visit Diagnoses Diagnosis History of deep venous thrombosis (DVT) of distal vein of left lower extremity- Primary Current moderate episode of major depressive disorder without prior episode (HCC) PTSD (post-traumatic stress disorder) Posttraumatic stress disorder 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
--- OUTSIDE RECORDS SUMMARY | 2024-04-10 19:08 | External Medical Summary | Summary of Care ---
Author Name Unknown Organization [facility] Address [address] [place] [address] Phone [phone] Care Team Providers Care Dtp Operator Name Role Phone Apolinar Wayne DO Primary Care Provider [phone] Encounter Details Date Type Department Care Team (Late st Contact Info) Description 04/03/2024 9:30 AM EST Scheduled Telephone Care Coordination and Integration [address] [place] [address] Mary Jane Valdez, [facility] Portable Sawyer [address], [place] [id number] Allergies Active Allergy Reactions Criticality Noted Date [...] by mouth every afternoon. (get from the [place]) 04/15/19 Active Vitamin D3 25 MCG (1000 [...] 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 06/27/2018 prison (current) use of insulin 10/27/2017 History of [...] mRNA, LNP-s, No Pre serve, 2-Dose Series ([employer]) 03/10/2021,06/07/2020,05/17/2020 COVID-19, LNP-s, No Preserve , Chandler-sucrose, [...] documented in this encounter Progress Notes * Mary Jane Valdez, [facility]yer - 04/03/2024 10:41 AM EST Telemedicine visit: No [facility] (PADMA) document ation: CHW outbound call to patient per Rain Borges RNCM O documented in this encounter Plan of Treatment Upcoming Encounters Date Type Department Care Team (Late st Contact Info) Description 04/03/2024 3:40 PM EST Office Visit Family Practice 65 [facility] 293 [facility] [place] [address] Apolinar Wayne DO 293 [facility], [place] [address] 04/04/2024 10:40 AM EST Office Visit Family Practice 65 [facility] 293 [facility] [place] [address] Apolinar Wayne, DO 293 [place] [address] 04/04/2024 3:45 PM EST Pharmacy Pharmacy Hematology Oncology [facility], [place] [address] [place] [address] [facility], [facility] Hem/Onc [address] [place] [address] 04/09/2024 12:30 PM EST Home Visit [facility] at [facility] 132 [place] [address] Betzy Vega RN 132 [facility] [address] 04/13/2024 3:45 PM EST Pharmacy Pharmacy Hematology Oncology [place] [address] [place] [address] [facility], [facility] Hem/Onc [address] [place] [address] 04/19/2024 10:30 AM EST Imaging Radiology [address] 132 [facility] [address] 04/26/2024 9:00 AM EST Office Visit Hematology/Oncology [facility] [address] [facility] [place] [phone] Fernando Solo MD 200 [facility] [place], [place] [address] 04/27/2024 3:00 PM EST Office Visit Family Practice [address] [place] [address] 293 [facility] [place] [address] Apolinar Wayne, 293 [place] [address] 05/21/2024 2:30 PM EST Office Visit Urology Garima Meyers [address] [place] [address] Michelle Rodriguez PA-C [address] [place] [address] Scheduled Procedures Name Priority Associated Diagnoses Date/Ti [...] this encounter Medical Devices Implanted Type Area Handbag Framer Device Identifier Shelf Expiration Date Model / Serial / Lot Graft Lyoplant 5.0x5.0cm 2x2 - [id number] Implanted:Qty : 1 on 06/24/2020 [place]da[place] [facility] [place] Head B ALICEA : AESCULAP 11/18/2024 [id number] / / [id number] Graft Lyoplant 5.0x5.0cm 2x2 - [id number] Implanted:Qty : 1 on 06/24/2020 by Madi Kaur [place] [facility] [place] ALICEA : AESCULAP [id number] 11/18/2024 [id number] / [id number] / [id number] Graft Lyoplant 5.0x5.0cm 2x2 - [id number] Implanted:Qty : 1 on 06/24/2020 by Madi Kaur [place] [facility] [place] Head B ALICEA : AESCULAP 06/24/2020 [id number] / / [id number] Graft Lyoplant 5.0x5.0cm 2x2 - [id number] Implanted:Qty : 1 on 06/24/2020 by Madi Kaur [place] [facility] [place] B ALICEA : AESCULAP [id number] 11/18/2024 [id number] / [id number] / [id number] Plate Ti Lo Pro Str 2h 421.502 - [id number] Implanted:Qty : 2 on 06/24/2020 by Madi [place]aur [place] [facility] [place]: Head SY[employer]ES MAXILLOF[employer]IAL 421.502 / / Plate Bx Ti [id number] 4h 421.521 - [id number] Implanted:Qty : 1 on 06/24/2020 by Madi Kaur [place] [facility] [place] Head [employer]ES MAXILL[employer]IAL 421.521 / / Screw Ti Lo Pro Sd 4mm 400.834 - [id number] Implanted:Qty : 7 on 06/24/2020 by Madi [place] [facility] [place] Head [employer] MAXILL[employer]IAL 400.834 / / [...] Agents on File Name Relationship [facility] Communication Aimee Lam Spouse Health Care Agent Care Teams Dtp Operator Relationship Specialty Start Date End Date Apolinar Wayne DO 293 [place] [address] PCP - General Internal Medicine 11/15/23 documented as of this encounter
--- OUTSIDE RECORDS SUMMARY | 2024-04-10 19:08 | External Medical Summary | Summary of Care ---
Author Name Unknown Organization [facility] Address [address] [place] [address] Phone [phone] Care Team Providers Care Metal Numerical Control Programmer Name Role Phone Apolinar Wayne DO Primary Care Provider [phone] Reason for Visit * Reason Onset Date Comments Advice 03/29/2024 Dr Fernando Solo Encounter Details Date Type Department Care Team (Late st Contact Info) Description 03/29/2024 Telephone Hematology/Oncology [facility] [place] [address] [place] [address] Fernando Solo MD [address] [place] [address] Advice (Dr Fernando Solo) Allergies Active Allergy Reactions Criticality Noted Date [...] goal of less than 7.0% ([facility]) Use as directed every 14 days [...] 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 06/27/2018 snf (current) use of insulin 10/27/2017 History of [...] mRNA, LNP-s, No Pre serve, 2-Dose Series ([employer]) 03/10/2021,06/07/2020,05/17/2020 COVID-19, LNP-s, No Preserve , Chandler-sucrose, Ages 12+ (Pfizer) 11/17/2021 COVID-19, MRNA-LNP, PF, 30 M CG/0.3 mL, 12 YRS AND ABOVE, IM (PFIZER-Comirnaty) 01/17/2024,03/08/2023 Covid-19, Mrna, Lnp-s, Pf, B ivalent, 30 Mcg, IM, 12 yrs and above ([employer]) 04/13/2022 H1N1 2009 Influenza, IM 12/10/2019,04/01/2009 Pneumococcal [...] Telephone Encounter - Jefferson Alvarado RN - 03/30/2024 9:17 AM EST Pt approved for assistance. Specialty pharmacy to follow up and contact patient/. * Telephone Encounter - Jefferson Alvarado RN - 03/29/2024 3:40 PM EST Per patient , she completed the assistance forms today and was to fax them back to KODY Hamm who spoke with her. * Telephone Encounter - Jefferson Alvarado RN - 03/29/2024 9:56 AM EST Called Minda back, no answer, LMOM with return # to discuss. I did advise in my return call thatwe are currently waiting for patients to complete assistance forms for Lomustine and our assistance team is working with her currently to having these submitted. MTM- It looks like per the referral patient was ok with paying the co-payment for the medication per note from 01/05/24 "Patient will pay copay please contact patient for medication to be filled. " Can this medication be released to pharmacy and filled/coordinated? * Telephone Encounter - Abimael Austin OSA - 03/29/2024 9:09 AM EST Incoming call from [facility]; Dr Hi Simental calling in to speak to the provider about the Plan of Care for patient. HECTOR Perla mentioned the patient's has been calling in for updates. Please Advise documented in this encounter Plan of Treatment Upcoming Encounters Date Type Department Care Team (Late st Contact Info) Description 04/02/2024 12:30 PM EST Home Visit [facility] [address] Betzy Vega RN 132 [place] [address] 04/03/2024 9:30 AM EST Scheduled Telephone Care Coordination and Integration [address] [place] [address] Mary Jane Valdez, Community Health Manifest/Order Organizer Print Orders [address] [place] [address] 04/03/2024 3:40 PM EST Office Visit Family Practice 65 [facility] [place] [address] [place] [address] Apolinar Wayne, [address] [place] [address] 04/04/2024 3:45 PM EST Pharmacy Pharmacy Hematology Oncology [facility] [address] [place] [address] [facility], [facility] Hem/Onc [address] [place] [address] 04/13/2024 3:45 PM EST Pharmacy Pharmacy Hematology Oncology [facility] [address] [place] [address] [facility], [facility] Hem/Onc [address] [place] [address] 04/19/2024 10:30 AM EST Imaging Radiology [address] 132 [place] [address] 04/26/2024 9:00 AM EST Office Visit Hematology/Oncology [facility] 200 [facility] [place] [address] Fernando Solo MD 200 [place] [address] 04/27/2024 3:00 PM EST Office Visit Family Practice 65 [facility] [address] [place] [address] Apolinar Wayne, [address] [place] [address] 05/21/2024 2:30 PM EST Office Visit Urology Garima Meyers [address] [place] [address] Michelle Rodriguez PA-C [address] [place] [address] Scheduled Procedures Name Priority Associated Diagnoses Date/Ti [...] 08/12/2021, Additional history exists HbA1c 07/30/2024 01/31/2024, 08/11/2023, 08/09/2023, Additional history exists Colonoscopy 11/01/2024 11/02/2019, [...] this encounter Medical Devices Implanted Type Area Straightener Hand Device Identifier Shelf Expiration Date Model / Serial / Lot Graft Lyoplant 5.0x5.0cm 2x2 - [id number] Implanted:Qty : 1 on 06/24/2020 by Madi Kaur MD [place] [facility] [place] Head B ALICEA : AESCULAP 11/18/2024 [id number] / / [id number] Graft Lyoplant 5.0x5.0cm 2x2 - [id number] Implanted:Qty : 1 on 06/24/2020 by Madi Kaur MD [place] [facility] [place] B ALICEA : AESCULAP [id number] 11/18/2024 [id number] / [id number] / [id number] Graft Lyoplant 5.0x5.0cm 2x2 - [id number] Implanted:Qty : 1 on 06/24/2020 by Madi Kaur MD [place] [facility] [place]: Head B ALICEA : AESCULAP 06/24/2020 [id number] / / [id number] Graft Lyoplant 5.0x5.0cm 2x2 - [id number] Implanted:Qty : 1 on 06/24/2020 by Madi Kaur MD [place] [facility] [place] B ALICEA : AESCULAP [id number] 11/18/2024 [id number] / [id number] / [id number] Plate Ti Lo Pro Str 2h 421.502 - [id number] Implanted:Qty : 2 on 06/24/2020 by Madi Kaur MD [place] [facility] [place] Right: Head [employer]ES MAXILLOFACIAL 421.502 / / Plate Bx Ti [id number] 4h 421.521 - [id number] Implanted:Qty : 1 on 06/24/2020 by Madi Kaur MD [place] [facility] [place] Right: Head [employer]ES MAXILLOF[employer]IAL 421.521 / / Screw Ti Lo Pro Sd 4mm 400.834 - [id number] Implanted:Qty : 7 on 06/24/2020 by Madi [...] Agents on File Name Relationship Healthcare Agent [facility] Communication Aimee Lam Spouse Health Care Agent Care Teams Metal Numerical Control Programmer Relationship Specialty Start Date End Date Apolinar Wayne DO [address] [place] [address] PCP - General Internal Medicine 11/15/23 documented as of this encounter
--- OUTSIDE RECORDS SUMMARY | 2024-04-10 19:08 | External Medical Summary | Summary of Care ---
Author Name Unknown Organization [facility] Address [address] [place] [address] Phone [phone] Care Team Providers Care Marketing Technologist Name Role Phone Apolinar Wayne DO Primary Care Provider [phone] Reason for Visit * Reason Onset Date Comments [facility]: Maintenance 03/22/2024 Encounter Details Date Type Department Care Team (Late st Contact Info) Description 03/22/2024 Telephone [facility], [facility] [address] [facility] [place] [id number] Lis Graham, CUSTOMER SUPPORT ANALYST [address] [facility] [place] [address] [facility]: Maintenance Allergies Active Allergy Reactions Criticality Noted Date [...] hemoglobin A1c goal of less than 7.0% ([facility]) Use as directed every 14 [...] Each 1 12/30/19 24 2:07 PM EDT Active Ondansetron HCl 8 MG Oral Tablet (Zofran)Indicati ons:Glioblastoma (HCC) Take 1 tablet by mouth 30 minutes prior to lomustine and every 8 hours as needed for nausea. Do not exceed 3 tablets per 24 hours. 60 Tablet 1 01/10/20 24 2:49 PM EDT 024 Active Atorvastatin Calcium 80 MG Oral Tablet (Lipitor)Indicat ions:Dyslipidemi a, goal LDL below 100 Take 1 Tablet by mouth daily. 100 Tablet 3 01/17/20 24 9:59 AM EDT 024 Active levETIRAcetam 750 MG Oral Tablet take 1 tablet by mouth every 12 hours 60 Tablet 02/20/20 24 4:13 PM EST 024 Active Insulin Glargine 100 UNIT/ML Subcutaneous Solution (Lantus) inject 12 units Subcutaneous every 12 hours 10 mL 02/20/20 4:13 PM EST Active Additional Information Patient taking differently:Subcutaneous,10 units daily, Reported on 04/03/2024 Multiple Vitamins Oral Tablet Take 1 Tablet by mouth in the morning. Active LORazepam 0.5 MG Oral Tablet (Ativan)Indicati ons:Anxiety Take 1 Tablet by mouth 3 times a day as needed for Anxiety. 60 Tablet 03/22/19 25 2:47 PM EST 024 Active Carvedilol 3.125 MG Oral Tablet (Coreg)Indicatio ns:Type [...] 1:19 PM EDT 024 2024 Discontinued(R efill) Tamsulosin HCl 0.4 MG Oral Capsule (Flomax) TAKE ONE CAPSULE BY MOUTH EVERY DAY 100 Capsule 3 03/31/19 25 3:36 PM EST 024 2024 Discontinued(R efill) Co Q 10 100 MG Oral Capsule Take 1 Capsule by mouth every evening. 2024 Discontinued documented as of this encounter (statuses as [...] mRNA, LNP-s, No Pre serve, 2-Dose Series ([employer]) 03/10/2021,06/07/2020,05/17/2020 COVID-19, LNP-s, No Preserve , Chandler-sucrose, Ages 12+ (Pfizer) 11/17/2021 COVID-19, MRNA-LNP, PF, 30 M CG/0.3 mL, 12 YRS AND ABOVE, IM (PFIZER-Comirnaty) 01/17/2024,03/08/2023 Covid-19, Mrna, Lnp-s, Pf, B ivalent, 30 Mcg, IM, 12 yrs and above ([employer]) 04/13/2022 H1N1 2009 Influenza, IM 12/10/2019,04/01/2009 Pneumococcal [...] encounter Miscellaneous Notes * Telephone Encounter - Lis Graham LPN - 04/03/2024 5:32 PM EST TT from [facility], pt rteaffirmed he is still interested in [facility]. In appt text to [facility] team to re try set up. * Telephone Encounter - Lis Graham LPN - 03/22/2024 6:09 PM EST Received update from all contacts have been UTC a min of 3 times and have not reached pt LM requesting return call documented in this encounter Plan of Treatment Upcoming Encounters Date Type Department Care Team (Late st Contact Info) Description 04/04/2024 10:40 AM EST Office Visit Family Practice [address] [place] [address] 293 [place] [address] Apolinar Wayne, 293 [place] [address] 04/04/2024 3:45 PM EST Pharmacy Pharmacy Hematology Oncology [facility], [place] [address] [place] [address] [facility], [facility] Hem/Onc [facility] [place] [address] 04/09/2024 12:30 PM EST Home Visit [facility] [address] [facility] [place] [address] Betzy Vega, HECTOR [facility] [place] [address] 04/13/2024 3:45 PM EST Pharmacy Pharmacy Hematology Oncology [facility], [place] [address] [place] [address] [facility], [facility] Hem/Onc [facility] [place] [address] 04/17/2024 2:20 PM EST Office Visit Family Practice [address] [place] [address] 293 [facility], [place] [address] Apolinar Wayne, 293 [facility], [place] [address] 04/19/2024 10:30 AM EST Imaging Radiology [address], [place] [address] [place] [address] 04/26/2024 9:00 AM EST Office Visit Hematology/Oncology [facility] [place] [address] [place], [place] [phone] Fernando Solo MD 200 [facility] [place] [address] 04/27/2024 3:00 PM EST Office Visit Family Practice 65 [facility] [place] [address] [place], [place] [address] Apolinar Wayne, 293 [facility], [place] [address] 05/21/2024 2:30 PM EST Office Visit Urology Garima Meyers [address] [place] [address] Michelle Rodriguez PA-C [address] [place] [address] Scheduled Procedures Name Priority Associated Diagnoses Date/Ti [...] this encounter Medical Devices Implanted Type Area Seal Extrusion Operator Device Identifier Shelf Expiration Date Model / Serial / Lot Graft Lyoplant 5.0x5.0cm 2x2 - [id number] Implanted:Qty : 1 on 06/24/2020 [place] [facility] [place] Head B [employer]ICEA : AESCULAP 11/18/2024 [id number] / / [id number] Graft Lyoplant 5.0x5.0cm 2x2 - [id number] Implanted:Qty : 1 on 06/24/2020 by Madi Kaur [place] [facility] [place] [employer]ICE[employer] : AESCULAP [id number] 11/18/2024 [id number] / [id number] / [id number] Graft Lyoplant 5.0x5.0cm 2x2 - [id number] Implanted:Qty : 1 on 06/24/2020 by Madi Kaur [place] [facility] [place] Head B [employer] : AESCULAP 06/24/2020 [id number] / / [id number] Graft Lyoplant 5.0x5.0cm 2x2 - [id number] Implanted:Qty : 1 on 06/24/2020 by Madi Kaur [place] [facility] [place] [employer]ICE[employer] : AESCULAP [id number] 11/18/2024 [id number] / [id number] / [id number] Plate Ti Lo Pro Str 2h 421.502 - [id number] Implanted:Qty : 2 on 06/24/2020 by Madi Kaur [place] [facility] [place]: Head [employer] 421.502 / / Plate Bx Ti [id number] 4h 421.521 - [id number] Implanted:Qty : 1 on 06/24/2020 by Madi Kaur [place] [facility] [place] Head [employer] 421.521 / / Screw Ti Lo Pro Sd 4mm 400.834 - [id number] Implanted:Qty : 7 on 06/24/2020 by Madi Kaur [place] [facility] [place] Head [employer] 400.834 [...] Lam Spouse Health Care Agent Care Teams Marketing Technologist Relationship Specialty Start Date End Date Apolinar Wayne DO 293 [place] [address] PCP - General Internal Medicine 11/15/23 documented as of this encounter
--- OUTSIDE RECORDS SUMMARY | 2024-04-10 19:09 | External Medical Summary | Summary of Care ---
Author Name Unknown Organization [facility] Address [address] [place] [address] Phone [phone] Care Team Providers Care Health Sciences Program Coordinator Name Role Phone Apolinar Wayne DO Primary Care Provider [phone] Reason for Visit * Reason Onset Date Comments Patient Assistance Program 02/29/2024 8 Chr istine B [facility] Encounter Details Date Type Department Care Team (Late st Contact Info) Description 02/29/2024 Telephone Pharmacy Hematology Oncology [facility] [address] [place] [address] Tiffanie Disla, [facility] [address] [place] [address] Patient Assistance Program (8 Krys B ... 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) TAKE ONE TABLET BY MOUTH TWICE A DAY WITH MORNING AND EVENING MEALS 200 Tablet 3 03/10/20 24 11:53 AM EST 024 2024 Active Pantoprazole Sodium 40 MG Oral Tablet Delayed Release (Protonix)Indica tions:Heartburn TAKE ONE TABLET BY MOUTH EVERY DAY 100 Tablet 3 03/22/19 25 9:33 AM EST 024 2024 Active Tamsulosin HCl 0.4 MG Oral Capsule (Flomax) TAKE ONE CAPSULE BY MOUTH EVERY DAY 100 Capsule 3 12/22/19 24 6:21 PM EDT 024 Active Valtoco 10 MG Dose 10 MG/0.1ML Nasal Liquid (diazePAM)Indica tions: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 1 Each 1 12/30/19 24 2:07 PM EDT 024 Active Ondansetron HCl 8 MG Oral Tablet [...] 60 Tablet 02/20/20 24 4:13 PM EST Active Insulin Glargine 100 UNIT/ML Subcutaneous Solution (Lantus) inject 12 units Subcutaneous every 12 hours 10 mL 02/20/20 24 4:13 PM EST 024 Active Multiple Vitamins Oral Tablet Take 1 Tablet by mouth in the morning. Active Centrum Adults Oral TabletIndication s:general health Take 1 Tablet by mouth. 2023 Discontinued(M edication List Clean Up) Empagliflozin 25 MG Oral Tablet (Jardiance)Indic ations:Type 2 diabetes mellitus with hemoglobin A1c goal of less than 7.0% ([facility]) Take 1 Tablet by mouth in the morning. (From the MD). 90 Tablet 3 024 2023 Discontinued(M edication List Clean Up) Finasteride 5 MG Oral Tablet (Proscar) TAKE ONE TABLET BY MOUTH EVERY DAY IN THE MORNING 100 Tablet 1 12/19/19 24 1:19 PM EDT 2 024 2024 Discontinued(R efill) Divalproex Sodium 250 MG Oral Tablet Delayed Release (Depakote DR) TAKE TWO TABLETS BY MOUTH EVERY MORNING AND THREE TABLETS IN THE EVENING 450 Tablet 1 09/16/19 24 5:19 PM EDT 2023 Discontinued(M edication List Clean Up) levETIRAcetam 500 MG Oral Tablet (Keppra)Indicati ons:Glioblastoma (HCC) Take 1 Tablet by mouth in the morning and 1 Tablet before bedtime. 200 Tablet 3 02/06/20 24 1:01 PM EST 2023 Discontinued(M edication List Clean Up) LORazepam 0.5 MG Oral Tablet (Ativan)Indicati ons:Anxiety Take 1 Tablet by mouth 3 times a day as needed for Anxiety. 60 Tablet 01/06/20 1:06 PM EDT 024 2023 Discontinued(R efill) Losartan Potassium 100 MG Oral Tablet (Cozaar) TAKE ONE TABLET BY MOUTH EVERY MORNING 100 Tablet 3 01/04/20 24 2:12 PM EDT 2023 Discontinued(M edication List Clean Up) Docusate Sodium 50 MG Oral Capsule (Colace)Indicati ons:Glioblastoma (HCC) Take 1 Capsule by mouth in the morning and 1 Capsule before bedtime. 60 Capsule 3 024 2023 Discontinued(M edication List Clean Up) amLODIPine Besylate 10 MG Oral Tablet (Norvasc)Indicat ions:HTN, goal below 140/90 TAKE ONE TABLET BY MOUTH EVERY DAY 90 Tablet 3 01/25/20 24 12:59 PM EST 2023 Discontinued(M edication List Clean Up) dexAMETHasone 1 MG Oral Tablet take 1 tablet by mouth every 12 hours 60 Tablet 02/20/20 24 4:13 PM EST 2023 Discontinued(M edication List Clean Up) Melatonin 3 MG Oral Tablet (FT Melatonin) take 2 tablet by mouth at bedtime 60 Tablet 024 2023 Discontinued(M edication List Clean Up) OLANZapine 10 MG Oral Tablet (zyPREXA) take 1 tablet by mouth at bedtime as needed for insomnia 15 Tablet 02/20/20 24 4:13 PM EST 20/ 2024 Discontinued(M edication List Clean Up) Propranolol HCl 10 MG Oral Tablet (Inderal) tkae 1/2 tablet by mouth 3 times daily 45 Tablet 02/20/20 24 4:13 PM EST 2023 Discontinued(M edication List Clean Up) Carboxymethylcel lulose Sodium 0.5 % Ophthalmic Solution (Refresh Tears) instill 1 drop into both eyes 4 times daily as needed for dry eyes 15 mL 2023 Discontinued(M edication List Clean Up) Sennosides 8.6 MG Oral Tablet (SM Senna Laxative) take 2 tablets by mouth at bedtime 60 Tablet 2023 Discontinued(M edication List Clean Up) Co Q 10 100 MG Oral Capsule Take 1 Capsule by mouth every evening. 2024 Discontinued Clotrimazole 10 MG Mouth/Throat Danette (Mycelex Danette)Indicatio ns:Thrush dissolve 1 Lozenge by mouth 5 times a day for 14 days. 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 (Household - for ages [...] Telephone Encounter - Krys Staley OSA - 03/28/2024 1:36 PM EST Received another message asking to reach out to patients called # [phone] spoke with patients she stated that she received application and will complete and send back with documents once received I will send for review. Krys Staley Medication Referral Rn 03/28/2024.1:37 PM * Telephone Encounter - Krys Staley OSA - 03/28/2024 12:03 PM EST Patient Assistance Name of Medication: GLEOSTINE 100 MG CAPSULE Was patient spoken to: : YES Type of assistance: NO FOUNDATIONS OPEN AT THIS TIME , RECEIVED MESSAGE THAT PATIENT IS UNABLE TO FIND APPLICATION THAT WAS EMAILED TO HER TWICE - also mailed application again today. Called patient and no answer unable to leave message. Unable to apply for any assistance unless I have patients income documents. Applications mailed: : YES Follow up: 2-4 days .Krys Staley Medication Referral Rn 03/28/2024.12:09 PM * Telephone Encounter - Krys Staley OSA - 03/20/2024 10:54 AM EST Patient Assistance Name of Medication: GLEOSTINE 100 MG CAPSULE Was patient spoken to: : YES Type of assistance: no foundations open at this time , spoke with patient and emailed her pharmacy [facility] application again she will email back with income documents. Applications mailed: : YES Follow up: 2-4 days Krys Staley Medication Referral Rn 03/20/24.10:50 AM * Telephone Encounter - Krys Staley OSA - 03/13/2024 1:36 PM EST Patient Assistance Name of Medication: GLEOSTINE 100 MG CAPSULE Was patient spoken to: : NO Type of assistance: received information from [facility] that patient would be taking gleostine, called patients to advise and follow up on pharmacy [facility] shwetha and income docs no answer left message. Applications mailed: : No Follow up: 1 week Krys Staley Medication Referral Rn 03/13/2024.1:36 PM * Telephone Encounter - Krys Stalye OSA - 03/09/2024 2:34 PM EST Patient Assistance Name of Medication: GLEOSTINE 100 MG CAPSULE Was patient spoken to: : NO Type of assistance: called patient to follow up on pharmacy assistance shwetha and income docs. She stated she has not had the time and wanted to confirm patient would be starting this drug because she was not sure. Sent message to confirm once I hear back I will call patient and let her know. Unable to go forward with assistance without income docs. Applications mailed: : No Follow up: 2-4 days Krys Staley Medication Referral Rn 03/09/2024.2:38 PM * Telephone Encounter - Krys Staley OSA - 03/07/2024 11:08 AM EST Patient Assistance Name of Medication: GLEOSTINE 100 MG CAPSULE Was patient spoken to: : NO Type of assistance: no foundations open at this time,pace does not cover drug, spoke with patients she stated they should be within the income for Pharmacy [facility], emailed application to [email or web address] she will send back with income documents once received will send for review. Applications mailed: : No Follow up: 2-4 days Krys Staley Medication Referral Rn 03/07/2024.11:09 AM * Telephone Encounter - Krys Staley OSA - 03/05/2024 8:32 AM EST Patient Assistance Name of Medication: GLEOSTINE 100 MG CAPSULE Was patient spoken to: : NO Type of assistance: no foundations open at this time,pace does not cover drug, can apply for [facility] if patient is within income due to was not denied or excluded patienthas Medicare. - Called second attempt need patients income documents no answer unable to leave a message. call. Applications mailed: : No Follow up: 2-4 days Krys Staley Medication Referral Rn 03/05/24.8:32 AM * Telephone Encounter - Krys Staley OSA - 03/01/2024 3:48 PM EST Patient Assistance [...] for those we than can apply for [employer]. Either way we need copies of patient income docs to send to assistance programs called patient no answer , left message to return my call. Applications mailed: : No Follow up: 2-4 days Krys Staley Medication Referral Rn 03/01/24.3:45 PM * Telephone Encounter - Tiffanie Disla [facility] - 02/29/2024 10:22 AM EST Hello, Patient to see Dr Solo in 1-2 weeks with tentative plan to start lomustine after visit. I see prior to patient's surgery he was working with [facility] for assistance and was also willing to payout of pocket for first fill. Can we please re-visit assistance so we have in place prior to needing to start? Please have him apply to [employer] [facility] cyber intel planner assistance. Thanks! Tiffanie Disla, PharmD Ambulatory Clinical Pharmacist | Oral Chemotherapy Clinic [facility] 02/29/2024, 10:23 AM documented in this encounter Plan of Treatment Upcoming Encounters Date Type Department Care Team (Late st Contact Info) Description 04/02/2024 12:30 PM EST Home Visit [facility] 132 [facility] [place] [address] Betzy Vega, RN 132 [facility] [place] [address] 04/03/2024 9:30 AM EST Scheduled Telephone Care Coordination and Integration [address] [facility] [id number] Mary Jane Valdez, Community Health Efficiency Analyst [address] [facility] [address] 04/03/2024 3:40 PM EST Office Visit Family Practice 65 [facility] [place] [address] [place] [phone] Apolinar Wayne, 293 [place] [address] 04/13/2024 3:45 PM EST Pharmacy Pharmacy Hematology Oncology [facility] [employer] [address] [place] [address] [facility] Hem/Onc [address] [place] [address] 04/19/2024 10:30 AM EST Imaging Radiology [address] 132 [facility] [place] [address] 04/26/2024 9:00 AM EST Office Visit Hematology/Oncology [facility] 200 [place] [phone] Fernando Solo MD 200 [facility] [address] 04/27/2024 3:00 PM EST Office Visit Family Practice 65 [facility] [address] [place] [address] Apolinar Wayne, [address] [place] [address] 05/21/2024 2:30 PM EST Office Visit Urology Garima Meyers [address] [place] [address] Michelle Rodriguez PA-C [address] [place] [address] Scheduled Procedures Name Priority Associated Diagnoses Date/Ti [...] this encounter Medical Devices Implanted Type Area Mechanic Welder Device Identifier Shelf Expiration Date Model / Serial / Lot Graft Lyoplant 5.0x5.0cm 2x2 - [id number] Implanted:Qty : 1 on 06/24/2020 by Madi Kaur MD at OR [facility] Right: Head B ALICEA : AESCULAP 11/18/2024 [id number] / / [id number] Graft Lyoplant 5.0x5.0cm 2x2 - [id number] Implanted:Qty : 1 on 06/24/2020 by Madi Kaur MD at OR [facility] B ALICEA : AESCULAP [id number] 11/18/2024 [id number] / [id number] / [id number] Graft Lyoplant 5.0x5.0cm 2x2 - [id number] Implanted:Qty : 1 on 06/24/2020 by Madi Kaur MD at OR [facility] Right: Head B ALICEA : AESCULAP 06/24/2020 [id number] / / [id number] Graft Lyoplant 5.0x5.0cm 2x2 - [id number] Implanted:Qty : 1 on 06/24/2020 by Madi Kaur MD at OR [facility] B ALICEA : AESCULAP [id number] 11/18/2024 [id number] / [id number] / [id number] Plate Ti Lo Pro Str 2h 421.502 - [id number] Implanted:Qty : 2 on 06/24/2020 by Madi Kaur MD at OR [facility] Right: Head SYNTHES MAXILLOFACIAL 421.502 / / Plate Bx Ti [id number] 4h 421.521 - [id number] Implanted:Qty : 1 on 06/24/2020 by Madi Kaur MD at OR [facility] Right: Head SYNTHES MAXILLOFACIAL 421.521 / / Screw Ti Lo Pro Sd 4mm 400.834 - [id number] Implanted:Qty : 7 on 06/24/2020 by Madi Kaur MD at OR [facility] Right: Head SYNTHES MAXILLOFACIAL 400.834 / / [...] Lam Spouse Health Care Agent Care Teams Health Sciences Program Coordinator Relationship Specialty Start Date End Date Apolinar Wayne DO [address] [place] [address] PCP - General Internal Medicine 11/15/23 documented as of this encounter"
--- OUTSIDE RECORDS SUMMARY | 2024-04-10 19:09 | External Medical Summary | Summary of Care ---
Author Name Unknown Organization [facility] Address [address] [place] [address] Phone [phone] Care Team Providers Care Lure Maker Name Role Phone Apolinar Wayne DO Primary Care Provider [phone] Reason for Visit * Reason Onset Date Comments Fall 03/29/2024 Encounter Details Date Type Department Care Team (Late st Contact Info) Description 03/29/2024 Telephone Family Practice [address], [place] [address] [place] [address] Apolinar Wayne DO [address] [place], [place] [phone] Fall Allergies Active Allergy Reactions Criticality Noted Date Comments Erythromycin 07/02/1998 GI upset Guaifenesin & Derivatives 03/18/1997 nucofed documented as of this encounter (statuses as of 03/29/2024) Medications BD Pen Needle Altagracia U/F 32G [...] by mouth every afternoon. (get from the [place]) 04/15/19 22 Active Vitamin D3 25 MCG (1000 UT) Oral CapsuleIndication s:general health Take 1 Capsule by mouth every evening. Active FreeStyle Aarti 2 SensorIndications :Type 2 diabetes mellitus with hemoglobin A1c goal of less than 7.0% ([facility]) Use as directed every 14 days . 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 06/27/2018 senior care (current) use of insulin 10/27/2017 History [...] as of this encounter (statuses as of 03/29/2024) Resolved Problems Problem Noted Date Diagnosed Date [...] as of this encounter (statuses as of 03/29/2024) Immunizations Name Administration Dates Next Due COVID-19 mRNA, LNP-s, No Pre serve, 2-Dose Series ([employer]) 03/10/2021,06/07/2020,05/17/2020 COVID-19, LNP-s, No Preserve , Chandler-sucrose, Ages 12+ (Pfizer) 11/17/2021 COVID-19, MRNA-LNP, PF, 30 M CG/0.3 mL, 12 YRS AND ABOVE, IM (PFIZER-Comirnaty) 01/17/2024,03/08/2023 Covid-19, Mrna, Lnp-s, Pf, B ivalent, 30 Mcg, IM, 12 yrs and above ([employer]) 04/13/2022 H1N1 2009 Influenza, IM 12/10/2019,04/01/2009 Pneumococcal [...] Telephone Encounter - Apolinar Wayne DO - 03/29/2024 4:03 PM EST Agree with ED evaluation to assess for head trauma since patient is on Rivarixaban * Telephone Encounter - Sadie Madera LPN - 03/29/2024 3:50 PM EST Called , states when getting a bath sitting on seat. Was in bath due to incontinence of bm. States fell off chair, states is painful. Advised spouse he needs to go to ER. EMS called. Thank you * Telephone Encounter - Peggy Bynum OSA - 03/29/2024 3:15 PM EST Patient fell last evening and in can't use his left shoulder. Patient given appt 03/30/2024 See call details documented in this encounter Plan of Treatment Upcoming Encounters Date Type Department Care Team (Late st Contact Info) Description 04/02/2024 12:30 PM EST [facility] Visit [facility] 132 [facility] [place] [address] Betzy Vega, RN 132 [facility] [place] [address] 04/03/2024 9:30 AM EST Scheduled Telephone Care Coordination and Integration [address] [place] [address] Mary Jane Valdez, Community Health Adult Family Home Program Manager [address] [place] [address] 04/03/2024 3:40 PM EST Office Visit Family Practice 65 [facility] [address] [place] [address] Apolinar Wayne, [address] [place] [address] 04/04/2024 3:45 PM EST Pharmacy Pharmacy Hematology Oncology [facility] [address] [place] [address] [facility] Hem/Onc [address] [place] [address] 04/13/2024 3:45 PM EST Pharmacy Pharmacy Hematology Oncology [facility] [address] [place] [address] [facility], [facility] Hem/Onc [address] [place] [address] 04/19/2024 10:30 AM EST Imaging Radiology [address], [place] [address] [place] [address] 04/26/2024 9:00 AM EST Office Visit Hematology/Oncology [facility] [place] 200 [facility] [place] [phone] Fernando Solo MD [address] [place] [address] 04/27/2024 3:00 PM EST Office Visit Family Practice [address], [place] [address] [place] [address] Apolinar Wayne DO 293 [facility] [address] 05/21/2024 2:30 PM EST Office Visit Urology Garima Meyers [address] [place] [address] Michelle Rodriguez PA-C [address] [place] [address] Scheduled Procedures Name Priority Associated Diagnoses [...] this encounter Medical Devices Implanted Type Area Alum Plant Operator Device Identifier Shelf Expiration Date Model / Serial / Lot Graft Lyoplant 5.0x5.0cm 2x2 - [id number] Implanted:Qty : 1 on 06/24/2020 by Madi Kaur [place] [facility] [place] Head B ALICEA : ARIAN 11/18/2024 [id number] / / [id number] Graft Lyoplant 5.0x5.0cm 2x2 - [id number] Implanted:Qty : 1 on 06/24/2020 by Madi Kaur MD [place] [facility] Lara ALICEA : AUTUMNCUSHIVANI [id number] 11/18/2024 [id number] / [id number] / [id number] Graft Lyoplant 5.0x5.0cm 2x2 - [id number] Implanted:Qty : 1 on 06/24/2020 by Madi Kaur MD [place] [facility] [place]: Head B ALICEA : AUTUMNCULACleo 06/24/2020 [id number] / / [id number] Graft Lyoplant 5.0x5.0cm 2x2 - [id number] Implanted:Qty : 1 on 06/24/2020 by Madi Kaur MD [place] [facility] B ALICEA : ARIAN [id number] 11/18/2024 [id number] / [id number] / [id number] Plate Ti Lo Pro Str 2h 421.502 - [id number] Implanted:Qty : 2 on 06/24/2020 by Madi Kaur MD [place] [facility] [place]: Head SYNTHES MAXILLOFACIAL 421.502 / / Plate Bx Ti [id number] 4h 421.521 - [id number] Implanted:Qty : 1 on 06/24/2020 by Madi Kaur MD [place] [facility] [place]: Head SYNTHES MAXILLOFACIAL 421.521 / / Screw Ti Lo Pro Sd 4mm 400.834 - [id number] Implanted:Qty : 7 on 06/24/2020 by Madi Kaur MD [place] [facility] [place]: Head SYNTHES MAXILLOFACIAL 400.834 / / [...] Agents on File Name Relationship Healthcare Agent [facility] Communication Aimee Lam Spouse Health Care Agent Care Teams Lure Maker Relationship Specialty Start Date End Date Apolinar Wayne DO [address] [place] [address] PCP - General Internal Medicine 11/15/23 documented as of this encounter
--- OUTSIDE RECORDS SUMMARY | 2024-04-10 19:09 | External Medical Summary | Summary of Care ---
Author Name Unknown Organization [facility] Address [address] [place] [address] Phone [phone] Care Team Providers Care Stone Paver Name Role Phone Apolinar Wayne DO Primary Care Provider [phone] Reason for Visit * Reason Onset Date Comments Patient Assistance Program 02/29/2024 8 Chr istine B Mya [facility] Encounter Details Date Type Department Care Team (Late st Contact Info) Description 02/29/2024 Telephone Pharmacy Hematology Oncology [facility] [address] [place] [address] Tiffanie Disla, [facility] [address] [place] [address] Patient Assistance Program (8 Krys Bermudez ... Allergies Active Allergy Reactions Criticality Noted [...] than 7.0% (FORMERLY [facility]) Use as directed every 14 days [...] than 7.0% ([facility]ERLY [facility]) Take 1 Tablet by mouth in the morning. (From the OR). 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 (Household - for [...] to reach out to patients called # [phone] spoke with patients she stated that she received application and will complete and send back with documents once received I will send for review. Krys Staley Medication Pr Specialist 03/28/2024.1:37 PM * Telephone Encounter - Krys [...] Follow up: 2-4 days .Krys Staley Medication Pr Specialist 03/28/2024.12:09 PM * Telephone Encounter - Krys [...] Follow up: 2-4 days Krys Staley Medication Pr Specialist 03/20/24.10:50 AM * Telephone Encounter - Krys Staley OSA - 03/13/2024 1:36 PM EST Patient Assistance Name of Medication: GLEOSTINE 100 MG CAPSULE Was patient spoken to: : NO Type of assistance: received information from [facility] that patient would be taking gleostine, called patients to advise and follow up on pharmacy sloan shwetha and income docs no answer left message. Applications mailed: : No Follow up: 1 week Krys Staley Medication Pr Specialist 03/13/2024.1:36 PM * Telephone Encounter - Krys Staley OSA - 03/09/2024 2:34 PM EST Patient [...] Follow up: 2-4 days Krys Staley Medication Pr Specialist 03/09/2024.2:38 PM * Telephone Encounter - Krys Staley OSA - 03/07/2024 11:08 AM EST Patient Assistance Name of Medication: GLEOSTINE 100 MG CAPSULE Was patient spoken to: : NO Type of assistance: no foundations open at this time,pace does not cover drug, spoke with patients she stated they should be within the income for Pharmacy sloan, emailed application to [email or web address] she will send back with income documents once received will send for review. Applications mailed: : No Follow up: 2-4 days Krys Staley Medication Pr Specialist 03/07/2024.11:09 AM * Telephone Encounter - Krys [...] Follow up: 2-4 days Krys Staley Medication Pr Specialist 03/05/24.8:32 AM * Telephone Encounter - Krys [...] Follow up: 2-4 days Krys Staley Medication Pr Specialist 03/01/24.3:45 PM * Telephone Encounter - Tiffanie Disla [facility] - 02/29/2024 10:22 AM EST Hello, Patient to see Dr Solo in 1-2 weeks with tentative plan to start lomustine after visit. I see prior to patient's surgery he was working with [facility] for assistance and was also willing to payout of pocket for first fill. Can we please re-visit assistance so we have in place prior to needing to start? Please have him apply to [employer] quality assurance technician assistance. Thanks! Tiffanie Disla, PharmD Ambulatory Clinical Pharmacist | Oral Chemotherapy Clinic [facility] 02/29/2024, 10:23 AM documented in this encounter Plan of Treatment Upcoming Encounters Date Type Department Care Team (Late st Contact Info) Description 04/02/2024 12:30 PM EST [facility] Visit [facility] [address] [facility] [place] [address] Betzy Vega, RN 132 [facility] [place] [address] 04/03/2024 9:30 AM EST Scheduled Telephone Care Coordination and Integration [address] [facility] [place] [address] Mary Jane Valdez, Community Health Technology Sales Representative [address] [facility] [address] 04/03/2024 3:40 PM EST Office Visit Family Practice 65 [facility], [place] [address] [facility] [place] [address] Apolinar Wayne, 293 [place] [address] 04/04/2024 3:45 PM EST Pharmacy Pharmacy Hematology Oncology [facility], [place] [address] [facility] [place] [address] [facility], [facility] Hem/Onc [address] [place] [facility] [place] [address] 04/13/2024 3:45 PM EST Pharmacy Pharmacy Hematology Oncology [facility], [place] [address] [place] [address] [facility], [facility] Hem/Onc [address] [place] [address] 04/19/2024 10:30 AM EST Imaging Radiology [address] 132 [facility] [place] [address] 04/26/2024 9:00 AM EST Office Visit Hematology/Oncology [facility] [address] [facility] [place] [address] Fernando Solo MD [address] [facility] [place] [address] 04/27/2024 3:00 PM EST Office Visit Family Practice 65 [facility] [address] [place] [address] Apolinar Wayne, 293 [place] [address] 05/21/2024 2:30 PM EST Office Visit Urology Garima Meyers [address] [place] [address] Michelle Rodriguez PA-C [address] [place] [address] [...] this encounter Medical Devices Implanted Type Area Electrogalvanizing Machine Operator Device Identifier Shelf Expiration Date Model / Serial / Lot Graft Lyoplant 5.0x5.0cm 2x2 - [id number] Implanted:Qty : 1 on 06/24/2020 by Madi Kaur MD at [place] [facility] Right: Head B ALICEA : AESCULAP 11/18/2024 [id number] / / [id number] Graft Lyoplant 5.0x5.0cm 2x2 - [id number] Implanted:Qty : 1 on 06/24/2020 by Madi Kaur MD at [place] [facility] B ALICEA : AESCULAP [id number] 11/18/2024 [id number] / [id number] / [id number] Graft Lyoplant 5.0x5.0cm 2x2 - [id number] Implanted:Qty : 1 on 06/24/2020 by Madi Kaur MD at [place] [facility] Right: Head B ALICEA : AESCULAP 06/24/2020 [id number] / / [id number] Graft Lyoplant 5.0x5.0cm 2x2 - [id number] Implanted:Qty : 1 on 06/24/2020 by Madi Kaur MD at [place] [facility] B ALICEA : AESCULAP [id number] 11/18/2024 [id number] / [id number] / [id number] Plate Ti Lo Pro Str 2h 421.502 - [id number] Implanted:Qty : 2 on 06/24/2020 by Madi Kaur MD at [place] [facility] Right: Head SYNTHES MAXILLOFACIAL 421.502 / / Plate Bx Ti [id number] 4h 421.521 - [id number] Implanted:Qty : 1 on 06/24/2020 by Madi Kaur MD at [place] [facility] Right: Head SYNTHES MAXILLOFACIAL 421.521 / / Screw Ti Lo Pro Sd 4mm 400.834 - [id number] Implanted:Qty : 7 on 06/24/2020 by Madi Kaur MD at [facility] Right: Head SYNTHES MAXILLOFACIAL 400.834 / [...] Agents on File Name Relationship Healthcare Agent [facility] Shira Lam Spouse Health Care Agent Care Teams Stone Paver Relationship Specialty Start Date End Date Apolinar Wayne DO [address] [place] [address] PCP - General Internal Medicine 11/15/23 documented as of this encounter"
--- OUTSIDE RECORDS SUMMARY | 2024-04-10 19:09 | External Medical Summary | Summary of Care ---
Author Name Unknown Organization [facility] Address [address] [place] [address] Phone [phone] Care Team Providers Care Buttonhole Facer Name Role Phone Apolinar Wayne DO Primary Care Provider [phone] Reason for Visit * Reason Onset Date Comments Patient Assistance Program 02/29/2024 8 Chr istine B Mya [facility] Encounter Details Date Type Department Care Team (Late st Contact Info) Description 02/29/2024 Telephone Pharmacy Hematology Oncology [facility] [address] [place] [address] Tiffanie Disla, [facility] [address] [place] [address] Patient Assistance Program (8 Krys [...] A1c goal of less than 7.0% ([facility]) Use as directed every [...] A1c goal of less than 7.0% ([facility]) Take 1 Tablet by mouth in the morning. (From the [place]). 90 Tablet 3 024 2023 Discontinued(M edication [...] mRNA, LNP-s, No Pre serve, 2-Dose Series ([email or web address]) 03/10/2021,06/07/2020,05/17/2020 COVID-19, LNP-s, No Preserve , Chandler-sucrose, [...] No 03/06/2024 Does the household have a [facility] source of income? (Household - for ages [...] Author No 06/29/2020 5:01 AM Sa valentine Mosre RN * Because of a physical, mental, [...] Telephone Encounter - Krys Staley OSA - 03/30/2024 6:57 AM EST Patient Assistance Name of Medication: GLEOSTINE 100 MG CAPSULE Was patient spoken to: : YES Type of assistance: [employer] Card ID:[id number] Group: [id number] BIN: [id number] PCN: [id number] Name of [facility] Received patients income docs and pharmacy sloan shwetha patient is over the income - dany became open in [place] and gave patient $1800- patient copay is $1985.00 for the year - patient would owe $185.00for fill. Spoke with patients she agreed that they can afford the remaining copay of $185 please send prescription and fill medication. Applications mailed: : NO Follow up: MAR 2025 Krys Staley Medication Sound Effects Technician 03/30/24.6:52 AM * Telephone Encounter - Krys Staley OSA - 03/28/2024 1:36 PM EST Received another message asking to reach out to patients called # [phone] spoke with patients she stated that she received application and will complete and send back with documents once received I will send for review. Krys Staley Medication Sound Effects Technician 03/28/2024.1:37 PM * Telephone Encounter - Krys [...] Follow up: 2-4 days .Krys Staley Medication Sound Effects Technician 03/28/2024.12:09 PM * Telephone Encounter - Krys [...] Follow up: 2-4 days Krys Staley Medication Sound Effects Technician 03/20/24.10:50 AM * Telephone Encounter - Krys Staley OSA - 03/13/2024 1:36 PM EST Patient Assistance Name of Medication: GLEOSTINE 100 MG CAPSULE Was patient spoken to: : NO Type of assistance: received information from [facility] that patient would be taking gleostine, called patients to advise and follow up on pharmacy sloan shwetha and income docs no answer left message. Applications mailed: : No Follow up: 1 week Krys Staley Medication Sound Effects Technician 03/13/2024.1:36 PM * Telephone Encounter - Krys [...] Follow up: 2-4 days Krys Staley Medication Sound Effects Technician 03/09/2024.2:38 PM * Telephone Encounter - Krys Staley OSA - 03/07/2024 11:08 AM EST Patient Assistance Name of Medication: GLEOSTINE 100 MG CAPSULE Was patient spoken to: : NO Type of assistance: no foundations open at this time,pace does not cover drug, spoke with patients she stated they should be within the income for Pharmacy sloan, emailed application to [email or web address] she will send back with income documents once received will send for review. Applications mailed: : No Follow up: 2-4 days Krys Staley Medication Sound Effects Technician 03/07/2024.11:09 AM * Telephone Encounter - Krys Staley OSA - 03/05/2024 8:32 AM EST Patient Assistance Name of Medication: GLEOSTINE 100 MG CAPSULE Was patient spoken to: : NO Type of assistance: no foundations open at this time,pace does not cover drug, can apply for pharmacy sloan or [facility] if patient is within income due to was not denied or excluded patienthas Medicare. - Called second attempt need patients income documents no answer unable to leave a message. call. Applications mailed: : No Follow up: 2-4 days Krys Staley Medication Sound Effects Technician 03/05/24.8:32 AM * Telephone Encounter - Krys [...] for those we than can apply for [facility]. Either way we need copies of patient income docs to send to assistance programs called patient no answer , left message to return my call. Applications mailed: : No Follow up: 2-4 days Krys Staley Medication Sound Effects Technician 03/01/24.3:45 PM * Telephone Encounter - Tiffanie Disla RPh - 02/29/2024 10:22 AM EST Deelo, Patient to see Dr Sool in 1-2 weeks with tentative plan to start lomustine after visit. I see prior to patient's surgery he was working with [facility] for assistance and was also willing to payout of pocket for first fill. Can we please re-visit assistance so we have in place prior to needing to start? Please have him apply to [employer] [facility] training associate assistance. Thanks! Tiffanie Disla, PharmD Ambulatory Clinical Pharmacist | Oral Chemotherapy Clinic [facility] 02/29/2024, 10:23 AM documented in this encounter Plan of Treatment Upcoming Encounters Date Type Department Care Team (Late st Contact Info) Description 04/02/2024 12:30 PM EST [facility] Visit [facility] 132 [facility] [place] [address] Betzy Vega, RN [address] [place] [address] 04/03/2024 9:30 AM EST Scheduled Telephone Care Coordination and Integration [address] [place] [address] Mary Jane Valdez, Community Health Hopper Operator [address] [place] [address] 04/03/2024 3:40 PM EST Office Visit Family Practice 65 [facility] [address] [place] [address] Apolinar Wayne, [address] [place] [address] 04/04/2024 3:45 PM EST Pharmacy Pharmacy Hematology Oncology [facility] [address] [place] [address] [facility], [facility] Hem/Onc [address] [place] [address] 04/13/2024 3:45 PM EST Pharmacy Pharmacy Hematology Oncology [facility] [address] [place] [address] [facility], [facility] Hem/Onc [address] [place] [address] 04/19/2024 10:30 AM EST Imaging Radiology [address], [place] [address] [place] [address] 04/26/2024 9:00 AM EST Office Visit Hematology/Oncology [facility] [address] [place] [address] Fernando Solo MD 200 [facility] [place] [address] 04/27/2024 3:00 PM EST Office Visit Family Practice [address], [place] [address] [place] [address] Apolinar Wayne DO 293 [place] [address] 05/21/2024 2:30 PM EST Office Visit Urology Garima Meyers [address] [place] [address] Michelle Rodriguez [...] this encounter Medical Devices Implanted Type Area Accounting Bookkeeper Device Identifier Shelf Expiration Date Model / Serial / Lot Graft Lyoplant 5.0x5.0cm 2x2 - [id number] Implanted:Qty : 1 on 06/24/2020 by Madi Kaur MD at [place] [facility] Right: Head B ALICEA : AUTUMNCULACleo 11/18/2024 [id number] / / [id number] Graft Lyoplant 5.0x5.0cm 2x2 - [id number] Implanted:Qty : 1 on 06/24/2020 by Madi Kaur MD at OR [facility] B ALICEA : AESCULACleo [id number] 11/18/2024 [id number] / [id number] / [id number] Graft Lyoplant 5.0x5.0cm 2x2 - [id number] Implanted:Qty : 1 on 06/24/2020 by Madi Kaur MD at [place] [facility] Right: Head B ALICEA : AESCULAP 06/24/2020 [id number] / / [id number] Graft Lyoplant 5.0x5.0cm 2x2 - [id number] Implanted:Qty : 1 on 06/24/2020 by Madi Kaur MD at OR [facility] B ALICEA : ARIAN [id number] 11/18/2024 [id number] / [id number] / [id number] Plate Ti Lo Pro Str 2h 421.502 - [id number] Implanted:Qty : 2 on 06/24/2020 by Madi Kaur MD at [place] [facility] Right: Head SYNTHES MAXILLOFACIAL 421.502 / / Plate Bx Ti [id number] 4h 421.521 - [id number] Implanted:Qty : 1 on 06/24/2020 by Madi Kaur MD at [place] [facility] Right: Head SYNTHES MAXILLOFACIAL 421.521 / / Screw Ti Lo Pro Sd 4mm 400.834 - [id number] Implanted:Qty : 7 on 06/24/2020 by Madi Kaur MD at [place] [facility] Right: Head SYNTHES MAXILLOFACIAL 400.834 / / [...] Agents on File Name Relationship Healthcare Agent [facility] Communication Aimee Lam Spouse Health Care Agent Care Teams Buttonhole Facer Relationship Specialty Start Date End Date Apolinar Wayne DO [address] [place] [address] PCP - General Internal Medicine 11/15/23 documented as of this encounter"
--- OUTSIDE RECORDS SUMMARY | 2024-04-10 19:09 | External Medical Summary | Summary of Care ---
Author Name Unknown Organization [facility] Address [address] [place] [address] Phone [phone] Care Team Providers Care Battery Charger Tester Name Role Phone Apolinar Wayne DO Primary Care Provider [phone] Reason for Visit * Reason Onset Date Comments Advice 03/29/2024 Dr Fernando Solo Encounter Details Date Type Department Care Team (Late st Contact Info) Description 03/29/2024 Telephone Hematology/Oncology [facility] [place] [address] [place] [address] Feranndo Solo MD [address] [place] [address] Advice (Dr Fernando Solo) Allergies Active Allergy [...] by mouth every afternoon. (get from the [place]) 04/15/19 Active Vitamin D3 25 MCG (1000 UT) Oral CapsuleIndication s:general health Take 1 Capsule by mouth every evening. Active FreeStyle Aarti 2 SensorIndications :Type 2 diabetes mellitus with hemoglobin A1c goal of less than 7.0% ([facility]) Use as directed every 14 [...] mRNA, LNP-s, No Pre serve, 2-Dose Series (TapMe) 03/10/2021,06/07/2020,05/17/2020 COVID-19, LNP-s, No Preserve , Chandler-sucrose, Ages 12+ (Pfizer) 11/17/2021 COVID-19, MRNA-LNP, PF, 30 M CG/0.3 mL, 12 YRS AND ABOVE, IM (PFIZER-Comirnaty) 01/17/2024,03/08/2023 Covid-19, Mrna, Lnp-s, Pf, B ivalent, 30 Mcg, IM, 12 yrs and above (TapMe) 04/13/2022 H1N1 2009 Influenza, IM 12/10/2019,04/01/2009 Pneumococcal [...] 9:09 AM EST Incoming call from [facility]; Dr Hi Simental calling in to speak to the provider about the Plan of Care for patient. HECTOR Perla mentioned the patient's has been calling in for updates. Please Advise documented in this encounter Plan of Treatment Upcoming Encounters Date Type Department Care Team (Late st Contact Info) Description 04/02/2024 12:30 PM EST Home Visit [facility] [place], [facility] [address] [facility] [address] Betzy Vega RN 132 [facility] [address] 04/03/2024 9:30 AM EST Scheduled Telephone Care Coordination and Integration [address] [place] [address] Mary Jane Valdez, Community Health Slabbing Machine Operator [address] [place] [address] 04/03/2024 3:40 PM EST Office Visit Family Practice [address] [place] [address] [address] [place] [address] Apolinar Wayne, [address] [place] [address] 04/04/2024 3:45 PM EST Pharmacy Pharmacy Hematology Oncology [facility] [address] [place] [address] [facility], [facility] Hem/Onc [address] [place] [address] 04/13/2024 3:45 PM EST Pharmacy Pharmacy Hematology Oncology [facility] [address] [place] [address] [facility], [facility] Hem/Onc [address] [place] [address] 04/19/2024 10:30 AM EST Imaging Radiology [address] [place] [address] 04/26/2024 9:00 AM EST Office Visit Hematology/Oncology [facility] 200 [facility] [place] [address] Fernando Solo MD [address] [place] [address] 04/27/2024 3:00 PM EST Office Visit Family Practice [address] [place] [address] 293 [facility] [place] [address] Apolinar Wayne DO [address] [place] [address] 05/21/2024 2:30 PM EST Office Visit Urology Garima Meyers [address] [place] [address] Michelle Rodriguez PA-C [address] [place] [address] Scheduled Procedures Name Priority Associated Diagnoses Date/Ti [...] this encounter Medical Devices Implanted Type Area Client Portfolio Manager Device Identifier Shelf Expiration Date Model / Serial / Lot Graft Lyoplant 5.0x5.0cm 2x2 - [id number] Implanted:Qty : 1 on 06/24/2020 by Madi Kaur MD at [facility] Right: Head B ALICEA : AESCULAP 11/18/2024 [id number] / / [id number] Graft Lyoplant 5.0x5.0cm 2x2 - [id number] Implanted:Qty : 1 on 06/24/2020 by Madi Kaur MD [place] [facility] B ALICEA : AESCULAP [id number] 11/18/2024 [id number] / [id number] / [id number] Graft Lyoplant 5.0x5.0cm 2x2 - [id number] Implanted:Qty : 1 on 06/24/2020 by Madi Kaur MD [place] [facility] [place]: Head B ALICEA : AESCULAP 06/24/2020 [id number] / / [id number] Graft Lyoplant 5.0x5.0cm 2x2 - [id number] Implanted:Qty : 1 on 06/24/2020 by Madi Kaur MD at [place] [facility] B ALICEA : AESCULAP [id number] 11/18/2024 [id number] / [id number] / [id number] Plate Ti Lo Pro Str 2h 421.502 - [id number] Implanted:Qty : 2 on 06/24/2020 by Madi Kaur MD at [place] [facility] Right: Head SYNTHES MAXILLOFACIAL 421.502 / / Plate Bx Ti [id number] 4h 421.521 - [id number] Implanted:Qty : 1 on 06/24/2020 by Madi Kaur MD at [place] [facility] Right: Head SYNTHES MAXILLOFACIAL 421.521 / / Screw Ti Lo Pro Sd 4mm 400.834 - [id number] Implanted:Qty : 7 on 06/24/2020 by Madi Kaur MD at [place] [facility] Right: Head SYNTHES MAXILLOFACIAL 400.834 / / [...] Agents on File Name Relationship Healthcare Agent [facility] Communication Aimee Lam Spouse Health Care Agent Care Teams Battery Charger Tester Relationship Specialty Start Date End Date Apolinar Wayne DO 293 [place] [address] PCP - General Internal Medicine 11/15/23 documented as of this encounter
--- OUTSIDE RECORDS SUMMARY | 2024-04-10 19:09 | External Medical Summary | Summary of Care ---
Author Name Unknown Organization [facility] Address [address] [place] [address] Phone [phone] Care Team Providers Care Engineer Operations And Maintenance Name Role Phone Apolinar Wayne DO Primary Care Provider [phone] Reason for Visit * Reason Onset Date Comments [facility]: Engagement 03/29/2024 Encounter Details Date Type Department Care Team (Late st Contact Info) Description 03/29/2024 Telephone [facility], [facility] [address] [facility] [place] [phone] Lis Graham, MILL STENCILER [address] [facility] [phone] [facility]: Engagement Allergies Active Allergy Reactions Criticality Noted Date [...] 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 06/27/2018 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 10/27/2017 History [...] mRNA, LNP-s, No Pre serve, 2-Dose Series ([email or web address]) 03/10/2021,06/07/2020,05/17/2020 COVID-19, LNP-s, No Preserve , Chandler-sucrose, Ages 12+ ([email or web address]) 11/17/2021 COVID-19, MRNA-LNP, PF, 30 M CG/0.3 mL, 12 YRS AND ABOVE, IM (PFIZER-Comirnaty) 01/17/2024,03/08/2023 Covid-19, Mrna, Lnp-s, Pf, B ivalent, 30 Mcg, IM, 12 yrs and above ([email or web address]) 04/13/2022 H1N1 2009 Influenza, IM 12/10/2019,04/01/2009 Pneumococcal [...] Telephone Encounter - Lis Graham LPN - 03/29/2024 1:47 PM EST Npoted pt [facility] for CH, CHM not set up, Next HV flagged to asses documented in this encounter Plan of Treatment Upcoming Encounters Date Type Department Care Team (Late st Contact Info) Description 04/02/2024 12:30 PM EST Home Visit [facility] [address] [place] [address] Betzy Vega, HECTOR [address] [place] [address] 04/03/2024 9:30 AM EST Scheduled Telephone Care Coordination and Integration [address] [place] [address] Mary Jane Valdez, Community Health Underwriting Assistant [address] [place] [address] 04/03/2024 3:40 PM EST Office Visit Family Practice 65 [facility] 293 [place] [address] Apolinar Wayne, 293 [facility] [address] 04/04/2024 3:45 PM EST Pharmacy Pharmacy Hematology Oncology [facility], [place] [address] [place] [address] [facility] Hem[facility]Onc [address] [place] [address] 04/13/2024 3:45 PM EST Pharmacy Pharmacy Hematology Oncology [place] [address] [place] [address] [facility] Hem[facility]Onc [facility] [place] [address] 04/19/2024 10:30 AM EST Imaging Radiology [address] 132 [place] [address] 04/26/2024 9:00 AM EST Office Visit Hematology/Oncology [facility] 200 [place] [address] Fernando Solo MD 200 [place] [address] 04/27/2024 3:00 PM EST Office Visit Family Practice 65 [facility] 293 [facility], [place] [address] Apolinar Wayne DO 293 [facility] [address] 05/21/2024 2:30 PM EST Office Visit Urology Garima Meyers [address] [facility] 270 [place] [address] Michelle Rodriguez PA-C [address] [place] [address] Scheduled Procedures Name Priority Associated Diagnoses Date/Ti [...] this encounter Medical Devices Implanted Type Area Salt Manager Device Identifier Shelf Expiration Date Model / Serial / Lot Graft Lyoplant 5.0x5.0cm 2x2 - [id number] Implanted:Qty : 1 on 06/24/2020 by Madi Kaur MD at [place] [facility] [place] Right: Head B ALICEA : AESCULAP 11/18/2024 [id number] / / [id number] Graft Lyoplant 5.0x5.0cm 2x2 - [id number] Implanted:Qty : 1 on 06/24/2020 by Madi Kaur MD at [place] [facility] [place] B ALICEA : AESCULAP [id number] 11/18/2024 [id number] / [id number] / [id number] Graft Lyoplant 5.0x5.0cm 2x2 - [id number] Implanted:Qty : 1 on 06/24/2020 by Madi Kaur MD at [place] [facility] [place] Right: Head B ALICEA : AESCULAP 06/24/2020 [id number] / / [id number] Graft Lyoplant 5.0x5.0cm 2x2 - [id number] Implanted:Qty : 1 on 06/24/2020 by Madi Kaur MD at [place] [facility] [place] B ALICEA : AESCULAP [id number] 11/18/2024 [id number] / [id number] / [id number] Plate Ti Lo Pro Str 2h 421.502 - [id number] Implanted:Qty : 2 on 06/24/2020 by Madi Kaur MD at [place] [facility] [place] Right: Head SYNTHES MAXILLOFACIAL 421.502 / / Plate Bx Ti [id number] 4h 421.521 - [id number] Implanted:Qty : 1 on 06/24/2020 by Madi Kaur MD at [place] [facility] [place] Right: Head SYNTHES MAXILLOFACIAL 421.521 / / Screw Ti Lo Pro Sd 4mm 400.834 - [id number] Implanted:Qty : 7 on 06/24/2020 by Madi [...] Agents on File Name Relationship Healthcare Agent Gelamo marcos Lam Spouse Health Care Agent Care Teams Engineer Operations And Maintenance Relationship Specialty Start Date End Date Apolinar Wayne DO [address] [place] [address] PCP - General Internal Medicine 11/15/23 documented as of this encounter
--- OUTSIDE RECORDS SUMMARY | 2024-04-10 19:09 | External Medical Summary | Summary of Care ---
Author Name Unknown Organization [facility] Address [address] [place] [address] Phone [phone] Care Team Providers Care Human Service Technician Name Role Phone Apolinar Wayne DO Primary Care Provider [phone] Encounter Details Date Type Department Care Team (Late st Contact Info) Description 03/23/2024 Telephone Family Practice [address], [place] [address] [place] [address] Apolinar Wayne DO [address] [place] [address] Allergies Active Allergy Reactions Criticality Noted Date [...] by mouth every afternoon. (get from the [place]) 04/15/19 Active Vitamin D3 25 MCG (1000 UT) Oral CapsuleIndication s:general health Take 1 Capsule by mouth every evening. Active FreeStyle Aarti 2 SensorIndications :Type 2 diabetes mellitus with hemoglobin A1c goal of less than 7.0% ([facility]) Use as directed every 14 days [...] depressive disorder without prior episode ([facility]),PTSD (post-traumatic stress disorder) Take 1 Tablet [...] 03/22/2024 2:47 PM EST 03/12/20 24 Active documented as of this encounter (statuses [...] mRNA, LNP-s, No Pre serve, 2-Dose Series (Cavium) 03/10/2021,06/07/2020,05/17/2020 COVID-19, LNP-s, No Preserve , Chandler-sucrose, Ages 12+ (Pfizer) 11/17/2021 COVID-19, MRNA-LNP, PF, 30 M CG/0.3 mL, 12 YRS AND ABOVE, IM ([employer]-Comirnat) 01/17/2024,03/08/2023 Covid-19, Mrna, Lnp-s, Pf, B ivalent, 30 Mcg, IM, 12 yrs and above (Cavium) 04/13/2022 H1N1 2009 Influenza, IM 12/10/2019,04/01/2009 Pneumococcal [...] No 03/06/2024 Does the household have a [facility] source of income? (Household - for [...] Encounter - Apolinar Wayne DO - 03/29/2024 2:39 PM EST Noted * Telephone Encounter - Sharonda Noe OSA - 03/23/2024 1:39 PM EST Called pt back, Let his and him know that there were sooner appts available in [place] if they were willing to travel. Denis said he was not will to go to [place]. I did let them know that he was placed into fast pass for [facility] and [facility] and they will receive a text if a sooner appt becomes avail. * Telephone Encounter - Sadie Madera LPN - 03/23/2024 1:22 PM EST Please call and offer [place] for sooner appt. Thank you * Telephone Encounter - Sharonda Noe OSA - 03/23/2024 1:19 PM EST Called Urology scheduling services to see if his appt could be moved up. Spoke to Yamilet. She stated that there is no sooner appts at [facility] or [facility]. If the patient would be willing to travel to [place], she would be able to get him seen sooner. * Telephone Encounter - Sadie Madera LPN - 03/23/2024 12:58 PM EST Spoke to Aimee, please move up urology appt. Thank you * Telephone Encounter - Sadie Madera LPN - 03/23/2024 12:57 PM EST ----- Message from Apolinar Wayne DO sent at 03/23/2024 12:04 PM EST ----- No urinary retention, and no hydronephrosis. See if urology appointment can be moved up. documented in this encounter Plan of Treatment Upcoming Encounters Date Type Department Care Team (Late st Contact Info) Description 04/02/2024 12:30 PM EST Home Visit [facility] 132 [facility] [place] [address] Betzy Vega, HECTOR 132 [facility] [place] [address] 04/03/2024 9:30 AM EST Scheduled Telephone Care Coordination and Integration [address] [place] [address] Mary Jane Valdez, Community Health Iap Displays Analyst [address] [place] [address] 04/03/2024 3:40 PM EST Office Visit Family Practice [address] [place] [address] 293 [place] [address] Apolinar Wayne DO [address] [place] [address] 04/04/2024 3:45 PM EST Pharmacy Pharmacy Hematology Oncology [facility], [place] [address] [place] [address] [facility] Hem/Onc [address] [place] [address] 04/13/2024 3:45 PM EST Pharmacy Pharmacy Hematology Oncology [facility], [place] [address] [place] [address] [facility] Hem/Onc [address] [place] [address] 04/19/2024 10:30 AM EST Imaging Radiology [address], [place] 132 [facility] [place] [address] 04/26/2024 9:00 AM EST Office Visit Hematology/Oncology [facility] 200 [facility] [place] [address] Fernando Solo MD 200 [facility] [place] [address] 04/27/2024 3:00 PM EST Office Visit Family Practice 65 [facility] 293 [place] [address] Apolinar Wayne DO [address] [place] [address] 05/21/2024 2:30 PM EST Office Visit Urology Garima Meyers [address] 270 [place] [address] Michelle Rodriguez PA-C 27 [place] [address] [...] this encounter Medical Devices Implanted Type Area Glove Machine Operator Device Identifier Shelf Expiration Date Model / Serial / Lot Graft Lyoplant 5.0x5.0cm 2x2 - [id number] Implanted:Qty : 1 on 06/24/2020 by Madi Kaur MD [place] [facility] [place]: Head B ALICEA : AESCULAP 11/18/2024 [id number] / / [id number] Graft Lyoplant 5.0x5.0cm 2x2 - [id number] Implanted:Qty : 1 on 06/24/2020 by Madi Kaur MD [place] [facility] [place] B ALICEA : AESCULAP [id number] 11/18/2024 [id number] / [id number] / [id number] Graft Lyoplant 5.0x5.0cm 2x2 - [id number] Implanted:Qty : 1 on 06/24/2020 by Madi Kuar MD [place] [facility] [place]: Head B ALICEA : AESCULAP 06/24/2020 [id number] / / [id number] Graft Lyoplant 5.0x5.0cm 2x2 - [id number] Implanted:Qty : 1 on 06/24/2020 by aMdi Kaur MD [place] [facility] [place] B ALICEA : AESCULAP [id number] 11/18/2024 [id number] / [id number] / [id number] Plate Ti Lo Pro Str 2h 421.502 - [id number] Implanted:Qty : 2 on 06/24/2020 by Madi Kaur MD [place] [facility] [place]: Head SYNTHES MAXILLOFACIAL 421.502 / / Plate Bx Ti [id number] 4h 421.521 - [id number] Implanted:Qty : 1 on 06/24/2020 by Madi Kaur MD [place] [facility] [place]: Head SYNTHES MAXILLOFACIAL 421.521 / / Screw Ti Lo Pro Sd 4mm 400.834 - [id number] Implanted:Qty : 7 on 06/24/2020 by Madi Kaur MD [place] [facility] [place]: Head SYNTHES MAXILLOFACIAL 400.834 / / [...] Agents on File Name Relationship Healthcare Agent [facility] Communication Aimee Lam Spouse Health Care Agent Care Teams Human Service Technician Relationship Specialty Start Date End Date Apolinar Wayne DO [address] [place] [address] PCP - General Internal Medicine 11/15/23 documented as of this encounter
--- OUTSIDE RECORDS SUMMARY | 2024-04-10 19:09 | External Medical Summary | Summary of Care ---
Author Name Unknown Organization [facility] Address [address] [place] [address] Phone [phone] Care Team Providers Care State Federal Relations Deputy Director Name Role Phone Apolinar Wayne DO Primary Care Provider [phone] Reason for Visit * Reason Comments Dosage Adjustment In Person (Anticoag Cl inic) Diabetes Follow-Up Encounter Details Date Type Department Care Team (Late st Contact Info) Description 03/27/2024 2:20 PM EST Office Visit Family Practice 65 [facility] 293 [place] [phone] College, Pharmacist [address] [address] Diabetes mellitus with nephropathy (HCC)* Allergies Active Allergy Reactions Criticality Noted [...] nephropathy 06/27/2018 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 06/27/2018 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 Never true 12/17/20 24 Within the past 12 months, t [...] of Assessment Author No 06/29/2020 5:01 AM KEMART Sa valentine Onofre RN * Are you [...] documented in this encounter Progress Notes * Adilia Akbar, [facility] - 03/27/2024 3:33 PM EST Medication Therapy Disease Management Clinic - Diabetes Management Progress Note Denis Lam, identified by name and date of , is a 73 year old male being seen for diabetes management/education. Patient presents for return diabetic visit. DIABETES: Current diabetic medications: Lantus 10 units daily (decreased in hospital) HOLD Jardiance 25 mg daily Medication Injection Site: Abdomen Lifestyle: Diet: variable Glucose Review/SMBG: Readings obtained from patient device Hypoglycemia: Does your blood sugar go below 70 mg/dL? No Hyperglycemia symptoms present: none Recent Labs Units 01/31/24 0745 11/17/23 1315 08/09/23 1214 HEMOGLOBIN A1C - [facility] % -- 8.4* 8.2* HEMOGLOBIN, [facility] % 8.9* -- -- Recent Labs Units 03/20/24 1614 02/29/24 0000 02/15/24 0613 ESTIMATED GLOMERULAR FILTRATION RATE - [facility] mL/min >90 91.61 89 CREATININE - [facility] mg/dL 0.8 0.82 0.9 HYPERTENSION: Patient on ACEi/ARB: no, losartan stopped on last hospitalization due to hypotension BP Readings from Last 3 Encounters: 03/27/24 118/74 03/20/24 120/84 03/09/24 90/50 Blood pressure at goal: yes HYPERLIPIDEMIA: Recent Labs Units 11/17/23 1315 12/14/22 1509 LDL CHOLESTEROL (CALCULATED) - [facility] mg/dL 99 113 Does patient have clinical ASCVD? No, is patient LDL less than 70mg/dL? No: deferred per PCP HEALTH MAINTENANCE REVIEW: Health Maintenance Due Topic Date Due Adult Wellness Visit Never done Hedrick's Esophagus Surveilance 09/27/2021 ASSESSMENT & PLAN: ICD-10-CM 1. Diabetes mellitus with nephropathy (HCC) E11.21 BG Readings - Blood sugars controlled. Patient only has 1 day of sensor readings. Advised that I'llfollow up again in 1-2 weeks Medications - Reviewed current regimen, patient is adherent to regimen. Continue holding jardiance per PCP, will continue Lantus at current dose for now as well. Diet, Exercise, Lifestyle - No significant lifestyle changes since last visit. Discussed with patient maintaining protein intake especially. Patient is agreeable to SMBG with Libre2 CGM. Patient aware to contact clinic if any hypoglycemia before next visit. MEDICATION CHANGES: yes, see below; preferred pharmacy: [facility] ([facility]) Diabetic Medications: Increase Lantus 12 units daily Continue to HOLD jardiance pending start of chemo HEALTH MAINTENANCE INTERVENTIONS: Labs: Ordered & Scheduled: BMP/CMP Immunizations: Up to Date Foot Exam: Up to Date Eye Exam: Up to Date Annual Wellness Visit: N/A FOLLOW UP: 03/29/2024 I spent a total of 20-29 minutes (exact time 25 mins) on the date of service in preparation, delivery, and documentation of the care provided to Denis Lam excluding any time spent in the performance of separately billed services. Adilia Ventura, Pharm D, BCACP Clinical Pharmacist [address] - Medication Therapy [facility] 03/27/2024, 3:33 PM Ph. [phone] documented in this encounter Plan of Treatment Upcoming Encounters Date Type Department Care Team (Late st Contact Info) Description 04/02/2024 12:30 PM EST [facility] Visit [facility], [facility] 132 [facility] [place] [address] Betzy Vega, RN 132 [facility] [place] [address] 04/03/2024 9:30 AM EST Scheduled Telephone Care Coordination and Integration [address] [place] [address] Mary Jane Valdez, Community Health Carriage Feeder [address] [place] [address] 04/03/2024 3:40 PM EST Office Visit Family Practice 65 [facility] 293 [place] [address] Apolinar Wayne, 293 [place] [address] 04/04/2024 3:45 PM EST Pharmacy Pharmacy Hematology Oncology [facility] [address] [place] [address] [facility] Hem[facility]Onc [address] [place] [address] 04/13/2024 3:45 PM EST Pharmacy Pharmacy Hematology Oncology [facility] [address] [place] [address] [facility] Hem/Onc [address] [place] [address] 04/19/2024 10:30 AM EST Imaging Radiology [address], [place] [address] [place] [address] 04/26/2024 9:00 AM EST Office Visit Hematology/Oncology [facility] [place] [address] [facility] [place] [address] Fernando Solo MD 200 [facility] [place] [address] 04/27/2024 3:00 PM EST Office Visit Family Practice [address], [place] [address] [place] [address] Apolinar Wayne DO 293 [facility] [place] [address] 05/21/2024 2:30 PM EST Office Visit Urology [...] this encounter Medical Devices Implanted Type Area Prevention Coordinator Device Identifier Shelf Expiration Date Model / Serial / Lot Graft Lyoplant 5.0x5.0cm 2x2 - [id number] Implanted:Qty : 1 on 06/24/2020 by Madi Kaur MD at [place] [facility] [place] Right: Head B ALICEA : AUTUMNCULACleo 11/18/2024 [id number] / / [id number] Graft Lyoplant 5.0x5.0cm 2x2 - [id number] Implanted:Qty : 1 on 06/24/2020 by Madi Kaur MD at [place] [facility] [place] B ALICEA : AESCULACleo [id number] 11/18/2024 [id number] / [id number] / [id number] Graft Lyoplant 5.0x5.0cm 2x2 - [id number] Implanted:Qty : 1 on 06/24/2020 by Madi Kaur MD at [place] [facility] [place] Right: Head B ALICEA : AESCULAP 06/24/2020 [id number] / / [id number] Graft Lyoplant 5.0x5.0cm 2x2 - [id number] Implanted:Qty : 1 on 06/24/2020 by Madi Kaur MD at [place] [facility] [place] B ALICEA : KEELAP [id number] 11/18/2024 [id number] / [id number] / [id number] Plate Ti Lo Pro Str 2h 421.502 - [id number] Implanted:Qty : 2 on 06/24/2020 by Madi Kaur MD at [place] [facility] [place] Right: Head SYNTHES MAXILLOFACIAL 421.502 / / Plate Bx Ti [id number] 4h 421.521 - [id number] Implanted:Qty : 1 on 06/24/2020 by Madi Kaur MD at [place] [facility] [place] Right: Head SYNTHES MAXILLOFACIAL 421.521 / / Screw Ti Lo Pro Sd 4mm 400.834 - [id number] Implanted:Qty : 7 on 06/24/2020 by Madi Kaur MD at [place] [facility] [place] Right: Head SYNTHES MAXILLOFACIAL 400.834 / / documented as of this encounter Visit Diagnoses Diagnosis Diabetes mellitus with nephropathy (HCC)- Primary Type II or unspecified type diabetes mellitus with renal manifestations, not stated as uncontrolled documented in this encounter Advance Directives * [...] Agents on File Name Relationship Healthcare Agent [facility] p Communication Aimee Lam Spouse Health Care Agent Care Teams State Federal Relations Deputy Director Relationship Specialty Start Date End Date Apolinar Wayne DO [address] [place] [address] PCP - General Internal Medicine 11/15/23 documented as of this encounter
--- OUTSIDE RECORDS SUMMARY | 2024-04-10 19:10 | External Medical Summary | Summary of Care ---
Author Name Unknown Organization [facility] Address [address] [place] [address] Phone [phone] Care Team Providers Care Voice Studies Director Name Role Phone Apolinar Wayne DO Primary Care Provider [phone] Reason for Visit * Reason Onset Date Comments Patient Assistance Program 02/29/2024 8 Chr istine B Mya [facility] Encounter Details Date Type Department Care Team (Late st Contact Info) Description 02/29/2024 Telephone Pharmacy Hematology Oncology [facility] [address] [place] [address] Tiffanie Disla, [facility] [address] [place] [address] Patient Assistance Program (8 Krys [...] A1c goal of less than 7.0% ([facility]) Use as directed every 14 [...] A1c goal of less than 7.0% ([facility]) Take 1 Tablet by mouth in the morning. (From the [place]). 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 (Household - for [...] Follow up: 2-4 days .Krys Staley Medication Fire Patrol 03/28/2024.12:09 PM * Telephone Encounter - Krys [...] Follow up: 2-4 days Krys Staley Medication [employer] [facility] 03/20/24.10:50 AM * Telephone Encounter - Krys Staley OSA - 03/13/2024 1:36 PM EST Patient Assistance Name of Medication: GLEOSTINE 100 MG CAPSULE Was patient spoken to: : NO Type of assistance: received information from [facility] that patient would be taking gleostine, called patients to advise and follow up on pharmacy [facility] shwetha and income docs no answer left message. Applications mailed: : No Follow up: 1 week Krys Staley Medication Fire [employer] 03/13/2024.1:36 PM * Telephone Encounter - Krys [...] Follow up: 2-4 days Krys Staley Medication Fire [employer] 03/09/2024.2:38 PM * Telephone Encounter - Krys Staley OSA - 03/07/2024 11:08 AM EST Patient Assistance Name of Medication: GLEOSTINE 100 MG CAPSULE Was patient spoken to: : NO Type of assistance: no foundations open at this time,pace does not cover drug, spoke with patients she stated they should be within the income for Pharmacy sloan, emailed application to [email or web address] she will send back with income documents once received will send for review. Applications mailed: : No Follow up: 2-4 days Krys Staley Medication Fire [employer] 03/07/2024.11:09 AM * Telephone Encounter - Krys Staley OSA - 03/05/2024 8:32 AM EST Patient Assistance Name of Medication: GLEOSTINE 100 MG CAPSULE Was patient spoken to: : NO Type of assistance: no foundations open at this time,pace does not cover drug, can apply for pharmacy [facility] or [facility] if patient is within income due to was not denied or excluded patienthas Medicare. - Called second attempt need patients income documents no answer unable to leave a message. call. Applications mailed: : No Follow up: 2-4 days Krys Staley Medication Fire [employer] 03/05/24.8:32 AM * Telephone Encounter - Krys [...] : No Follow up: 2-4 days Krys Staely Medication Fire [facility] 03/01/24.3:45 PM * Telephone Encounter - Tiffanie Disla [facility] - 02/29/2024 10:22 AM EST Deelo, Patient to see Dr Solo in 1-2 weeks with tentative plan to start lomustine after visit. I see prior to patient's surgery he was working with [facility] for assistance and was also willing to payout of pocket for first fill. Can we please re-visit assistance so we have in place prior to needing to start? Please have him apply to [facility] infectious diseases physician assistance. Thanks! Tiffanie Disla, PharmD Ambulatory Clinical Pharmacist | Oral Chemotherapy [facility] 02/29/2024, 10:23 AM documented in this encounter Plan of Treatment Upcoming Encounters Date Type Department Care Team (Late st Contact Info) Description 04/02/2024 12:30 PM EST Home Visit [facility] [address] [place] [address] Betzy Vega, HECTOR [address] [place] [address] 04/03/2024 9:30 AM EST Scheduled Telephone Care Coordination and Integration [address] [place] [address] Mary Jane Valdez, Community Health Registered Nurse Obstetrics [address] [place] [address] 04/03/2024 3:40 PM EST Office Visit Family Practice [address], [place] [address] [place] [address] Apolinar Wayne, [address] [place] [address] 04/13/2024 3:45 PM EST Pharmacy Pharmacy Hematology Oncology [facility] [address] [place] [address] [facility] Hem/Onc [address] [place] [address] 04/19/2024 10:30 AM EST Imaging Radiology [address], [place] [address] [facility] [place] [address] 04/26/2024 9:00 AM EST Office Visit Hematology/Oncology Nasrin Mclaughlin [place] 200 [facility] [address] [place], [place] [phone] Fernando Solo MD 200 [facility] [place] [address] 04/27/2024 3:00 PM EST Office Visit Family Practice [address], [place] [address] [place], [place] [address] Apolinar Wayne, [address] [place], [place] [address] 05/21/2024 2:30 PM EST Office Visit Urology Garima Meyers [address] [place] [address] Michelle Rodriguez PA-C [address] [place] [address] Scheduled Procedures Name Priority Associated Diagnoses Date/Ti [...] this encounter Medical Devices Implanted Type Area Monumental Stonemason Device Identifier Shelf Expiration Date Model / Serial / Lot Graft Lyoplant 5.0x5.0cm 2x2 - [id number] Implanted:Qty : 1 on 06/24/2020 [place] [facility] [place] Head B ALICEA : AESCULAP 11/18/2024 [id number] / / [id number] Graft Lyoplant 5.0x5.0cm 2x2 - [id number] Implanted:Qty : 1 on 06/24/2020 by Madi Kaur [place] [facility] [place] B ALICEA : AESCULAP [id number] 11/18/2024 [id number] / [id number] / [id number] Graft Lyoplant 5.0x5.0cm 2x2 - [id number] Implanted:Qty : 1 on 06/24/2020 by Madi [place]aur [place] [facility] [place]: Head B ALICEA : AESCULAP 06/24/2020 [id number] / / [id number] Graft Lyoplant 5.0x5.0cm 2x2 - [id number] Implanted:Qty : 1 on 06/24/2020 by Madi Kaur [place] [facility] [place] B ALICEA : AESCULAP [id number] 11/18/2024 [id number] / [id number] / [id number] Plate Ti Lo Pro Str 2h 421.502 - [id number] Implanted:Qty : 2 on 06/24/2020 by Madi [place]aur [place] [facility] [place]: Head SYNTHES MAXILLOFACIAL 421.502 / / Plate Bx Ti [id number] 4h 421.521 - [id number] Implanted:Qty : 1 on 06/24/2020 by Madi Kaur [place] [facility] [place]: Head SYNTHES MAXILLOFACIAL 421.521 / / Screw Ti Lo Pro Sd 4mm 400.834 - [id number] Implanted:Qty : 7 on 06/24/2020 by Madi Kaur [place] [facility] [place]: Head SYNTHES MAXILLOFACIAL 400.834 / / [...] Lam Spouse Health Care Agent Care Teams Voice Studies Director Relationship Specialty Start Date End Date Apolinar Wayne DO [address] [facility] [place] [address] PCP - General Internal Medicine 11/15/23 documented as of this encounter"
--- OUTSIDE RECORDS SUMMARY | 2024-04-10 19:10 | External Medical Summary | Summary of Care ---
Author Name Unknown Organization [facility] Address [address] [place] [address] Phone [phone] Care Team Providers Care Risk Assessment Analyst Name Role Phone Apolinar Wayne DO Primary Care Provider [phone] Reason for Visit * Reason Onset Date Comments FYI 03/23/2024 Encounter Details Date Type Department Care Team (Late st Contact Info) Description 03/23/2024 Telephone Family Practice [address] [place] [address] [place] [address] Apolinar Wayne DO [address] [place], [place] [phone] FYI Allergies Active Allergy Reactions Criticality Noted Date Comments Erythromycin 07/02/1998 GI upset Guaifenesin & Derivatives 03/18/1997 nucofed documented as of this encounter (statuses as of 03/23/2024) Medications BD Pen Needle Altagracia U/F 32G [...] hemoglobin A1c goal of less than 7.0% ([facility]) Use as directed every [...] 9:33 AM EST 05/29/19 24 025 Active Finasteride 5 MG Oral Tablet (Proscar) TAKE ONE TABLET BY MOUTH EVERY DAY IN THE MORNING 100 Tablet 1 12/19/2023 1:19 PM EDT 06/24/20 24 025 Active Additional Information Patient taking differently: QHS, Reported on 03/20/2024 Tamsulosin HCl 0.4 MG Oral Capsule (Flomax) [...] EST 02/20/20 Active Additional Information Patient taking differently:SubcutaneousDaily(AM), 10 units daily, Reported on 03/20/2024 Co Q 10 100 MG Oral Capsule Take 1 Capsule by mouth every evening. Active Multiple Vitamins Oral Tablet Take 1 Tablet by mouth in the morning. Active LORazepam 0.5 MG Oral Tablet (Ativan)Indicatio ns:Anxiety Take 1 Tablet by mouth 3 times a day as needed for Anxiety. 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 Pulmonary hypertension 10/10/2018 Diabetes 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 06/27/2018 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 * Telephone Encounter - Jewell Locke LPN - 03/23/2024 12:11 PM EST Bre from [facility] calling in reporting a fall. States pt fell last evening when trying to clean up spilled milk. Denies any pain/injury. Did not hit his head. FYI. documented in this encounter Plan of Treatment Upcoming Encounters Date Type Department Care Team (Late st Contact Info) Description 03/27/2024 12:00 PM EST Scheduled Telephone Care Coordination and Integration [address] [place] [address] Mary Jane Valdez, Community Health Manager [place] [address] [place] [address] 03/27/2024 1:40 PM EST Office Visit Family Practice [address] [place] [address] [address] [place] [address] Apolinar Wayne, [address] [place] [address] 04/02/2024 12:30 PM EST [facility] Visit [facility], [facility] [place] [address] Betzy Vega, HECTOR 132 [place] [address] 04/03/2024 9:30 AM EST Scheduled Telephone Care Coordination and Integration [address] [place] [address] Mary Jane Valdez, Community Health Manager [place] [address] [place] [address] 04/03/2024 3:40 PM EST Office Visit Family Practice [address] [place] [address] [address] [place] [address] Apolinar Wayne, [address] [place] [address] 04/13/2024 3:45 PM EST Pharmacy Pharmacy Hematology Oncology [facility] [address] [place] [address] [facility] Hem/Onc [address] [place] [address] 04/19/2024 10:30 AM EST Imaging Radiology [address] 132 [facility] [place] [address] 04/26/2024 9:00 AM EST Office Visit [facility]ematology/[facility] [address] [place] [phone] Fernando Solo MD [address] [place] [address] 05/21/2024 2:30 PM EST Office Visit Urology Garima Meyers [address] [place] [address] Michelle Rodriguez PA-C [address] [place] [address] Scheduled Procedures Name Priority Associated Diagnoses Date/Ti [...] this encounter Medical Devices Implanted Type Area Packer And Carry Out Device Identifier Shelf Expiration Date Model / Serial / Lot Graft Lyoplant 5.0x5.0cm 2x2 - [id number] Implanted:Qty : 1 on 06/24/2020 by Madi Kaur MD [place] [facility] [place] Right: Head B ALICEA : AESCULAP 11/18/2024 [id number] / / [id number] Graft Lyoplant 5.0x5.0cm 2x2 - [id number] Implanted:Qty : 1 on 06/24/2020 by Madi Kaur MD at [place] [facility] [place] B ALICEA : AESCULAP [id number] 11/18/2024 [id number] / [id number] / [id number] Graft Lyoplant 5.0x5.0cm 2x2 - [id number] Implanted:Qty : 1 on 06/24/2020 by Madi Kaur MD [place] [facility] [place] Right: Head B ALICEA : AESCULAP 06/24/2020 [id number] / / [id number] Graft Lyoplant 5.0x5.0cm 2x2 - [id number] Implanted:Qty : 1 on 06/24/2020 by Madi Kaur MD at [place] [facility] [place] B ALICEA : AESCULAP [id number] 11/18/2024 [id number] / [id number] / [id number] Plate Ti Lo Pro Str 2h 421.502 - [id number] Implanted:Qty : 2 on 06/24/2020 by Madi Kaur MD at [place] [facility] [place] Right: Head SYNTHES MAXILLOFACIAL 421.502 / / Plate Bx Ti [id number] 4h 421.521 - [id number] Implanted:Qty : 1 on 06/24/2020 by Madi Kaur MD at [place] [facility] [place] Right: Head SYNTHES MAXILLOFACIAL 421.521 / / Screw Ti Lo Pro Sd 4mm 400.834 - [id number] Implanted:Qty : 7 on 06/24/2020 by Madi Kaur MD at [place] [facility] [place] Right: Head SYNTHES [...] Agents on File Name Relationship Healthcare Agent [facility] Communication Aimee Lam Spouse Health Care Agent Care Teams Risk Assessment Analyst Relationship Specialty Start Date End Date Apolinar Wayne DO [address] [place] [address] PCP - General Internal Medicine 11/15/23 documented as of this encounter
--- OUTSIDE RECORDS SUMMARY | 2024-04-10 19:10 | External Medical Summary | Summary of Care ---
Author Name Unknown Organization [facility] Address [address] [place] [address] Phone [phone] Care Team Providers Care Brake Repairer Bus Name Role Phone Apolinar Wayne DO Primary Care Provider [phone] Reason for Visit * Reason Onset Date Comments [facility]: Maintenance 03/26/2024 Encounter Details Date Type Department Care Team (Late st Contact Info) Description 03/26/2024 Telephone [facility], [address] [address] [facility], Nurse [address] [address] [facility]: Maintenance Allergies Active Allergy Reactions Criticality Noted Date Comments Erythromycin 07/02/1998 GI upset Guaifenesin & Derivatives 03/18/1997 nucofed documented as of this encounter (statuses as of 03/26/2024) Medications BD Pen Needle Altagracia U/F 32G [...] by mouth every afternoon. (get from the [place]) 04/15/19 Active Vitamin D3 25 MCG (1000 [...] 02/20/20 24 Active Additional Information Patient taking differently:SubcutaneousDaily(AM), 10 [...] DAY IN THE MORNING 100 Tablet 1 03/26/19 25 026 Active documented as of this encounter (statuses as of 03/26/2024) Active Problems Problem Noted Date Diagnosed Date PTSD (post-traumatic stress disorder) 06/11/2022 Current moderate episode of major depressive disorder without prior episode 04/15/2021 Gastro-esophageal reflux disease without esophag itis 04/15/2021 Localization-related epilepsy 11/13/2020 Encounter for antineoplastic chemotherapy 2020 Claustrophobia 08/21/2020 Glioblastoma 06/29/2020 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 Pulmonary hypertension 10/10/2018 Diabetes 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 06/27/2018 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 10/27/2017 History of [...] as of this encounter (statuses as of 03/26/2024) Resolved Problems Problem Noted Date Diagnosed Date [...] as of this encounter (statuses as of 03/26/2024) Immunizations Name Administration Dates Next Due COVID-19 mRNA, LNP-s, No Pre serve, 2-Dose Series ([facility]) 03/10/2021,06/07/2020,05/17/2020 COVID-19, LNP-s, No Preserve , Chandler-sucrose, Ages 12+ ([facility]) 11/17/2021 COVID-19, MRNA-LNP, PF, 30 M CG/0.3 mL, 12 YRS AND ABOVE, IM (PFIZER-Comirnaty) 01/17/2024,03/08/2023 Covid-19, Mrna, Lnp-s, Pf, B ivalent, 30 Mcg, IM, 12 yrs and above ([facility]) 04/13/2022 H1N1 2009 Influenza, IM 12/10/2019,04/01/2009 Pneumococcal [...] Assessment Author No 06/29/2020 5:01 AM Sa valnetine Morse RN documented as of this encounter Mental Status * Because of a physical, mental, or emotional condition, do you have serious difficulty concentrating, remembering, or making decisions? (5 years old or older) Answer Entry Date Author No 06/29/2020 5:01 AM Sa valentine Morse RN documented in this encounter Miscellaneous Notes * Telephone Encounter - Kay Hood RN - 03/26/2024 3:36 PM EST Phone call from patients / Aimee stating her has a HV tomorrow with Betzy and he is scheduled for a office visit with his PCP. Informed HV with Betzy RNCM is next Sunday 04/02 at 12:30PM. Kay Hood RN [facility] Registered Nurse Navigator Triage documented in this encounter Plan of Treatment Upcoming Encounters Date Type Department Care Team (Late st Contact Info) Description 03/27/2024 12:00 PM EST Scheduled Telephone Care Coordination and Integration [address] [place] [address] Mary Jane Valdez, Community Health Procedures Rn [address] [place] [address] 03/27/2024 1:40 PM EST Office Visit Family Practice [address], [place] [address] [place] [address] Apolinar Wayne, DO [address] [place] [address] 04/02/2024 12:30 PM EST Home Visit [facility], [facility] [address] [facility] [place] [address] Betzy Vega, RN 132 [place] [address] 04/03/2024 9:30 AM EST Scheduled Telephone Care Coordination and Integration [address] [place] [address] Mary Jane Valdez, Community Health Procedures Rn [address] [place] [address] 04/03/2024 3:40 PM EST Office Visit Family Practice [address] [place] [address] [address] [place] [address] Apolinar Wayne, [address] [place] [address] 04/13/2024 3:45 PM EST Pharmacy Pharmacy Hematology Oncology [facility] [address] [place] [address] [facility] Hem/Onc [address] [place] [address] 04/19/2024 10:30 AM EST Imaging Radiology [address] [facility] [place] [address] 04/26/2024 9:00 AM EST Office Visit Hematology/Oncology [facility] [address] [place] [phone] Fernando Solo MD 200 [facility] [place], [place] [address] 05/21/2024 2:30 PM EST Office Visit Urology Garima Meyers [address] [place] [address] Michelle Rodriguez PA-C [address] [place] [address] Scheduled Procedures Name Priority Associated Diagnoses Date/Ti [...] encounter Medical Devices Implanted Type Area Supervisor Painting Department Device Identifier Shelf Expiration Date Model / Serial / Lot Graft Lyoplant 5.0x5.0cm 2x2 - [id number] Implanted:Qty : 1 on 06/24/2020 by Madi Kaur MD at [place] [facility] [place] Right: Head B ALICEA : AESCULAP 11/18/2024 [id number] / / [id number] Graft Lyoplant 5.0x5.0cm 2x2 - [id number] Implanted:Qty : 1 on 06/24/2020 by Madi Kaur MD at [place] [facility] [place] B ALICEA : AESCULAP [id number] 11/18/2024 [id number] / [id number] / [id number] Graft Lyoplant 5.0x5.0cm 2x2 - [id number] Implanted:Qty : 1 on 06/24/2020 by Madi Kaur MD at [place] [facility] [place] Right: Head B ALICEA : AESCULAP 06/24/2020 [id number] / / [id number] Graft Lyoplant 5.0x5.0cm 2x2 - [id number] Implanted:Qty : 1 on 06/24/2020 by Madi Kaur MD at [place] [facility] [place] B ALICEA : AESCULAP [id number] 11/18/2024 [id number] / [id number] / [id number] Plate Ti Lo Pro Str 2h 421.502 - [id number] Implanted:Qty : 2 on 06/24/2020 by Madi Kaur MD at [place] [facility] [place] Right: Head SYNTHES MAXILLOFACIAL 421.502 / / Plate Bx Ti [id number] 4h 421.521 - [id number] Implanted:Qty : 1 on 06/24/2020 by Madi Kaur MD at [place] [facility] [place] Right: Head SYNTHES MAXILLOFACIAL 421.521 / / Screw Ti Lo Pro Sd 4mm 400.834 - [id number] Implanted:Qty : 7 on 06/24/2020 by Madi [...] Communication Aimee Lam Spouse Health Care Agent [phone] (Home) Care Teams Brake Repairer Bus Relationship Specialty Start Date End Date Apolinar Wayne DO [address] [place] [address] PCP - General Internal Medicine 11/15/23 documented as of this encounter
--- OUTSIDE RECORDS SUMMARY | 2024-04-10 19:10 | External Medical Summary | Summary of Care ---
Author Name Unknown Organization [facility] Address [address] [place] [address] Phone [phone] Care Team Providers Care Medical Intern Name Role Phone José Manuel Wayne DO Primary Care Provider [phone] Reason for Visit * Reason Comments Medication Refill Encounter Details Date Type Department Care Team (Late st Contact Info) Description 03/24/2024 Refill Family Practice [address], [place] [address] [place] [address] José Manuel Wayne DO [address] [place], [place] [id number] Allergies Active Allergy Reactions Criticality Noted Date [...] 4 11:53 AM EST 05/17/19 24 025 Active Pantoprazole Sodium 40 MG Oral Tablet Delayed Release (Protonix)Indicat ions:Heartburn TAKE ONE TABLET BY MOUTH EVERY DAY 100 Tablet 3 5 9:33 AM EST 05/29/19 24 025 Active Tamsulosin HCl 0.4 MG Oral Capsule (Flomax) TAKE ONE CAPSULE BY MOUTH EVERY DAY 100 Capsule 3 4 6:21 PM EDT 12/21/19 24 Active Valtoco [...] 100 Tablet 1 03/26/19 25 026 Active Finasteride 5 MG Oral Tablet (Proscar) TAKE ONE TABLET BY MOUTH EVERY DAY IN THE MORNING 100 Tablet 1 4 1:19 PM EDT 09/12/19 24 025 Discontin ued(Refil l) documented as [...] 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 06/27/2018 FPC (current) use of insulin 10/27/2017 History of [...] mRNA, LNP-s, No Pre serve, 2-Dose Series (Zostel) 03/10/2021,06/07/2020,05/17/2020 COVID-19, LNP-s, No Preserve , Chadnler-sucrose, Ages 12+ (Pfizer) 11/17/2021 COVID-19, MRNA-LNP, PF, 30 M CG/0.3 mL, 12 YRS AND ABOVE, IM (PFIZER-Comirnaty) 01/17/2024,03/08/2023 Covid-19, Mrna, Lnp-s, Pf, B ivalent, 30 Mcg, IM, 12 yrs and above (Zostel) 04/13/2022 H1N1 2009 Influenza, IM 12/10/2019,04/01/2009 Pneumococcal [...] encounter Miscellaneous Notes * Telephone Encounter - Kimber Mcneill RPh - 03/26/2024 11:01 AM ESTSigned Prescriptions: Disp Refills Finasteride 5 MG Oral Tablet (Proscar) 100 Ta*1 Sig: TAKE ONE TABLET BY MOUTH EVERY DAY IN THE MORNINGAuthorizing Provider: JOSÉ MANUEL WAYNE User: KIMBER MCNEILL documented in this encounter Plan of Treatment Upcoming Encounters Date Type Department Care Team (Late st Contact Info) Description 03/27/2024 12:00 PM EST Scheduled Telephone Care Coordination and Integration [address] [place] [address] Mary Jane Valdez, Community Health Log Check Scaler [address] [place] [address] 03/27/2024 1:40 PM EST Office Visit Family Practice [facility] 293 [place] [address] José Manuel Wayne, DO [address] [place] [address] 04/02/2024 12:30 PM EST [facility] [address] Betzy Vega, HECTOR [address] [place] [address] 04/03/2024 9:30 AM EST Scheduled Telephone Care Coordination and Integration [address] [place] [address] Mary Jane Valdez, Community Health Log Check Scaler [address] [place] [address] 04/03/2024 3:40 PM EST Office Visit Family Practice [address] [place] [address] 293 [place] [address] José Manuel Wayne, DO [address] [place] [address] 04/13/2024 3:45 PM EST Pharmacy Pharmacy Hematology Oncology [facility] [address] [place] [address] [facility], [facility] Hem/Onc [address] [place] [address] 04/19/2024 10:30 AM EST Imaging Radiology [address] 132 [facility] [address] 04/26/2024 9:00 AM EST Office Visit Hematology/Oncology [facility] 200 [place] [address] Fernando Solo MD [address] [place] [address] 05/21/2024 2:30 PM EST Office Visit Urology [facility] Urias [address] [place] [address] [place] [address] Michelle Rodriguez PA-C [address] [place] [address] Scheduled Procedures Name Priority Associated Diagnoses [...] this encounter Medical Devices Implanted Type Area Bike Assembler Device Identifier Shelf Expiration Date Model / Serial / Lot Graft Lyoplant 5.0x5.0cm 2x2 - [id number] Implanted:Qty : 1 on 06/24/2020 [place] [facility] [place] B ALICEA : AUTUMNCULAP 11/18/2024 [id number] / / [id number] Graft Lyoplant 5.0x5.0cm 2x2 - [id number] Implanted:Qty : 1 on 06/24/2020 by Madi Kaur [place] [facility] [place] ALICEA : AUTUMNCULAP [id number] 11/18/2024 [id number] / [id number] / [id number] Graft Lyoplant 5.0x5.0cm 2x2 - [id number] Implanted:Qty : 1 on 06/24/2020 by Madi [place]aur [place] [facility] [place] Head B ALICEA : AESCULAP 06/24/2020 [id number] / / [id number] Graft Lyoplant 5.0x5.0cm 2x2 - [id number] Implanted:Qty : 1 on 06/24/2020 by Madi Kaur [place] [facility] [place] B ALICEA : AESCULAP [id number] 11/18/2024 [id number] / [id number] / [id number] Plate Ti Lo Pro Str 2h 421.502 - [id number] Implanted:Qty : 2 on 06/24/2020 by Madi [place]aur [place] [facility] [place]: Head SYNTHES MAXILLOFACIAL 421.502 / / Plate Bx Ti [id number] 4h 421.521 - [id number] Implanted:Qty : 1 on 06/24/2020 by Madi Kaur [place] [facility] [place] Head SYNTHES MAXILLOFACIAL 421.521 / / Screw Ti Lo Pro Sd 4mm 400.834 - [id number] Implanted:Qty : 7 on 06/24/2020 by Madi [place]aur [place] [facility] [place] Head SYNTHES MAXILLOFACIAL 400.834 / / [...] Lam Spouse Health Care Agent Care Teams Medical Intern Relationship Specialty Start Date End Date José Manuel Wayne DO [address] [place] [address] PCP - General Internal Medicine 11/15/23 documented as of this encounter
--- OUTSIDE RECORDS SUMMARY | 2024-04-10 19:10 | External Medical Summary | Summary of Care ---
Author Name Unknown Organization [facility] Address [address] [place] [address] Phone [phone] Care Team Providers Care Drawing Press Operator Name Role Phone Apolinar Wayne DO Primary Care Provider [phone] Encounter Details Date Type Department Care Team (Late st Contact Info) Description 03/22/2024 Population Health External Data Unspecified Department Allergies Active Allergy Reactions Criticality Noted Date Comments Erythromycin 07/02/1998 GI upset Guaifenesin & Derivatives 03/18/1997 nucofed documented as of this encounter (statuses as of 03/27/2024) Medications BD Pen Needle Altagracia U/F 32G [...] 60 Tablet 02/20/2024 4:13 PM EST 02/19/20 Active Insulin Glargine 100 UNIT/ML Subcutaneous Solution [...] 60 Tablet 03/22/2024 2:47 PM EST 03/12/20 Active documented as of this encounter (statuses as of 03/27/2024) Active Problems Problem Noted Date Diagnosed Date [...] as of this encounter (statuses as of 03/27/2024) Resolved Problems Problem Noted Date Diagnosed Date [...] as of this encounter (statuses as of 03/27/2024) Immunizations Name Administration Dates Next Due COVID-19 mRNA, LNP-s, No Pre serve, 2-Dose Series (Graphenea) 03/10/2021,06/07/2020,05/17/2020 COVID-19, LNP-s, No Preserve , Chandler-sucrose, Ages 12+ (Pfizer) 11/17/2021 COVID-19, MRNA-LNP, PF, 30 M CG/0.3 mL, 12 YRS AND ABOVE, IM (PFIZER-Comirnaty) 01/17/2024,03/08/2023 Covid-19, Mrna, Lnp-s, Pf, B ivalent, 30 Mcg, IM, 12 yrs and above (Graphenea) 04/13/2022 H1N1 2009 Influenza, IM 12/10/2019,04/01/2009 Pneumococcal [...] Telephone Care Coordination and Integration [address] [place] [address] Mary Jane Valdez, Community Health Sr. Merchandise Planner [address] [place] [address] 03/27/2024 1:40 PM EST Office Visit Family Practice [address] [place] [phone] Apolinar Wayne DO [address] [place] [address] 03/27/2024 2:20 PM EST Office Visit Family Practice [address] [place] [address] 293 [place] [address] College, Pharmacist [address] [place] [address] 04/02/2024 12:30 PM EST Home Visit [facility] 132 [facility] [place] [address] Betzy Vega, HECTOR [address] [facility] [place] [address] 04/03/2024 9:30 AM EST Scheduled Telephone Care Coordination and Integration [address] [place] [address] Mary Jane Valdez, Community Health Sr. Merchandise Planner [address] [place] [address] 04/03/2024 3:40 PM EST Office Visit Family Practice [address], [place] [address] [place] [address] Apolinar Wayne DO [address] [place] [address] 04/13/2024 3:45 PM EST Pharmacy Pharmacy Hematology Oncology [facility] [address] [place] [address] [facility], [facility] Hem/Onc [address] [place] [address] 04/19/2024 10:30 AM EST Imaging Radiology [address] 132 [facility] [place] [address] 04/26/2024 9:00 AM EST Office Visit Hematology/Oncology [facility] 200 [facility] [address] Fernando Solo MD [address] [place] [address] 05/21/2024 2:30 PM EST Office Visit Urology Garima Meyers [address] [place] [address] [place] [address] Michelle Rodriguez PA-C [address] [place] [address] Scheduled Procedures Name Priority Associated Diagnoses Date/Ti ak COLONOSCOPY FLEXIBLE PROXIMAL DIAGNOSTIC Recall History of [...] encounter Medical Devices Implanted Type Area Salt Refiner Device Identifier Shelf Expiration Date Model / Serial / Lot Graft Lyoplant 5.0x5.0cm 2x2 - [id number] Implanted:Qty : 1 on 06/24/2020 by Madi Kaur MD at OR [facility] [place] Right: Head B ALICEA : AESCULAP 11/18/2024 [id number] / / [id number] Graft Lyoplant 5.0x5.0cm 2x2 - [id number] Implanted:Qty : 1 on 06/24/2020 by Madi Kaur MD at OR [facility] [place] [place] B ALICEA : AESCULAP [id number] 11/18/2024 [id number] / [id number] / [id number] Graft Lyoplant 5.0x5.0cm 2x2 - [id number] Implanted:Qty : 1 on 06/24/2020 by Madi Kaur MD at OR [facility] [place] [place] Right: Head B ALICEA : AESCULAP 06/24/2020 [id number] / / [id number] Graft Lyoplant 5.0x5.0cm 2x2 - [id number] Implanted:Qty : 1 on 06/24/2020 by Madi Kaur MD at OR [facility] [place] [place] B ALICEA : AESCULAP [id number] 11/18/2024 [id number] / [id number] / [id number] Plate Ti Lo Pro Str 2h 421.502 - [id number] Implanted:Qty : 2 on 06/24/2020 by Madi Kaur MD at OR [facility] [place] [place] Right: Head SYNTHES MAXILLOFACIAL 421.502 / / Plate Bx Ti [id number] 4h 421.521 - [id number] Implanted:Qty : 1 on 06/24/2020 by Madi Kaur MD at OR [facility] [place] [place] Right: Head SYNTHES MAXILLOFACIAL 421.521 / / Screw Ti Lo Pro Sd 4mm 400.834 - [id number] Implanted:Qty : 7 on 06/24/2020 by Madi Kaur MD at OR [facility] [place] [place] Right: Head SYNTHES MAXILLOFACIAL 400.834 / [...] Agents on File Name Relationship Healthcare Agent [facility] Communication Aimee Lam Spouse Health Care Agent [phone] (Home) Care Teams Drawing Press Operator Relationship Specialty Start Date End Date Apolinar Wayne DO 293 [place] [address] PCP - General Internal Medicine 11/15/23 documented as of this encounter
--- OUTSIDE RECORDS SUMMARY | 2024-04-10 19:10 | External Medical Summary | Summary of Care ---
Author Name Unknown Organization [facility] Address [address] [place] [address] Phone [phone] Care Team Providers Care Food Safety Field Specialist Name Role Phone Apolinar Wayne DO Primary Care Provider [phone] Reason for Visit * Reason Onset Date Comments Patient Assistance Program 02/29/2024 31 Giulia Roque Encounter Details Date Type Department Care Team (Late st Contact Info) Description 02/29/2024 Telephone Pharmacy Hematology Oncology [facility], [place] [address] [place] [address] Tiffanie Disla, [facility] [address] [place] [address] Patient Assistance Program (31 Krys Bermudez... Allergies Active Allergy Reactions Criticality [...] taking differently:SubcutaneousDaily(AM), 10 units daily, Reported on 03/09/2024 Co Q 10 100 MG Oral Capsule Take 1 Capsule by mouth every evening. Active Multiple Vitamins Oral Tablet Take 1 Tablet by mouth in the morning. Active Centrum Adults Oral TabletIndications :general health Take 1 Tablet by mouth. 024 Discontinu ed(Medicat ion List Clean Up) Empagliflozin 25 MG Oral Tablet (Jardiance)Indica tions:Type 2 diabetes mellitus with hemoglobin A1c goal of less than 7.0% ([facility]) Take 1 Tablet by mouth in the morning. (From the [place]). 90 Tablet 3 05/05/19 24 024 Discontinu ed(Medicat ion List Clean Up) Finasteride 5 MG Oral Tablet (Proscar) TAKE ONE TABLET BY MOUTH EVERY DAY IN THE MORNING 100 Tablet 1 4 1:19 PM EDT 09/12/19 24 025 Discontinu ed(Refill) Divalproex Sodium 250 MG Oral Tablet Delayed Release (Depakote DR) TAKE TWO TABLETS BY MOUTH EVERY MORNING AND THREE TABLETS IN THE EVENING 450 Tablet 1 4 5:19 PM EDT 09/14/19 24 024 Discontinu ed(Medicat ion List Clean Up) levETIRAcetam 500 MG Oral Tablet (Keppra)Indicatio ns:Glioblastoma (HCC) Take 1 Tablet by mouth in the morning and 1 Tablet before bedtime. 200 Tablet 3 4 1:01 PM EST 11/10/19 24 024 Discontinu ed(Medicat ion List Clean Up) LORazepam 0.5 MG Oral Tablet (Ativan)Dktio ns:Anxiety Take 1 Tablet by mouth 3 times a day as needed for Anxiety. 60 Tablet 4 1:06 PM EDT 12/30/19 24 024 Discontinu ed(Refill) Losartan Potassium 100 MG Oral Tablet (Cozaar) TAKE ONE TABLET BY MOUTH EVERY MORNING 100 Tablet 3 4 2:12 PM EDT 01/02/20 24 024 Discontinu ed(Medicat ion List Clean Up) Docusate Sodium 50 MG Oral Capsule (Colace)Dktio ns:Glioblastoma (HCC) Take 1 Capsule by mouth in the morning and 1 Capsule before bedtime. 60 Capsule 3 01/06/20 24 024 Discontinu ed(Medicat ion List Clean Up) amLODIPine Besylate 10 MG Oral Tablet (Norvasc)Indicati ons:HTN, goal below 140/90 TAKE ONE TABLET BY MOUTH EVERY DAY 90 Tablet 3 4 12:59 PM EST 01/23/20 24 024 Discontinu ed(Medicat ion List Clean Up) dexAMETHasone 1 MG Oral Tablet take 1 tablet by mouth every 12 hours 60 Tablet 4 4:13 PM EST 02/19/20 24 024 Discontinu ed(Medicat ion List Clean Up) Melatonin 3 MG Oral Tablet (FT Melatonin) take 2 tablet by mouth at bedtime 60 Tablet 02/19/20 24 024 Discontinu ed(Medicat ion List Clean Up) OLANZapine 10 MG Oral Tablet (zyPREXA) take 1 tablet by mouth at bedtime as needed for insomnia 15 Tablet 4 4:13 PM EST 02/19/20 24 024 Discontinu ed(Medicat ion List Clean Up) Propranolol HCl 10 MG Oral Tablet (Inderal) tkae 1/2 tablet by mouth 3 times daily 45 Tablet 4 4:13 PM EST 02/19/20 24 024 Discontinu ed(Medicat ion List Clean Up) Carboxymethylcell ulose Sodium 0.5 % Ophthalmic Solution (Refresh Tears) instill 1 drop into both eyes 4 times daily as needed for dry eyes 15 mL 02/19/20 24 024 Discontinu ed(Medicat ion List Clean Up) Sennosides 8.6 MG Oral Tablet (SM Senna Laxative) take 2 tablets by mouth at bedtime 60 Tablet 02/19/20 24 024 Discontinu ed(Medicat ion List Clean Up) Clotrimazole 10 MG Mouth/Throat Danette (Mycelex Danette)Indication s:Thrush dissolve 1 Lozenge by mouth 5 times a day for 14 days. Allow tablet to slowly dissolve in your mouth 70 Danette 4 5:57 PM EST 02/21/20 24 024 documented as of this encounter (statuses as [...] mRNA, LNP-s, No Pre serve, 2-Dose Series ([employer]) 03/10/2021,06/07/2020,05/17/2020 COVID-19, LNP-s, No Preserve , Chandler-sucrose, [...] Follow up: 2-4 days Krys Staley Medication Library Circulation Department Chief 03/20/24.10:50 AM * Telephone Encounter - Krys Staley OSA - 03/13/2024 1:36 PM EST Patient Assistance Name of Medication: GLEOSTINE 100 MG CAPSULE Was patient spoken to: : NO Type of assistance: received information from [facility] that patient would be taking gleostine, called patients to advise and follow up on pharmacy [facility] shwetha and income docs no answer left message. Applications mailed: : No Follow up: 1 week Krys Staley Medication Library Circulation Department Chief 03/13/2024.1:36 PM * Telephone Encounter - Krys [...] Follow up: 2-4 days Krys Staley Medication Library Circulation Department Chief 03/09/2024.2:38 PM * Telephone Encounter - Krys Staley OSA - 03/07/2024 11:08 AM EST Patient Assistance Name of Medication: GLEOSTINE 100 MG CAPSULE Was patient spoken to: : NO Type of assistance: no foundations open at this time,pace does not cover drug, spoke with patients she stated they should be within the income for Pharmacy [facility], emailed application to [email or web address] she will send back with income documents once received will send for review. Applications mailed: : No Follow up: 2-4 days Krys Staley Medication Library Circulation Department Chief 03/07/2024.11:09 AM * Telephone Encounter - Krys Staley OSA - 03/05/2024 8:32 AM EST Patient Assistance Name of Medication: GLEOSTINE 100 MG CAPSULE Was patient spoken to: : NO Type of assistance: no foundations open at this time,pace does not cover drug, can apply for pharmacy [facility] or [facility] if patient is within income due to was not denied or excluded patienthas Medicare. - Called second attempt need patients income documents no answer unable to leave a message. call. Applications mailed: : No Follow up: 2-4 days Krys Staley Medication Library Circulation Department Chief 03/05/24.8:32 AM * Telephone Encounter - Krys [...] for those we than can apply for [facility]. Either way we need copies of patient income docs to send to assistance programs called patient no answer , left message to return my call. Applications mailed: : No Follow up: 2-4 days Krys Staley Medication Library Circulation Department Chief 03/01/24.3:45 PM * Telephone Encounter - Tiffanie Disla RPh - 02/29/2024 10:22 AM EST Deelo, Patient to see Dr Solo in 1-2 weeks with tentative plan to start lomustine after visit. I see prior to patient's surgery he was working with [facility] for assistance and was also willing to payout of pocket for first fill. Can we please re-visit assistance so we have in place prior to needing to start? 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 Thanks! Tiffanie Disla, PharmD Ambulatory Clinical Pharmacist | Oral Chemotherapy Clinic [facility] 02/29/2024, 10:23 AM documented in this encounter Plan of Treatment Upcoming Encounters Date Type Department Care Team (Late st Contact Info) Description 03/27/2024 1:40 PM EST Office Visit Family Practice [address] [place] [address] [place] [address] Apolinar Wayne, 293 [facility] [address] 03/27/2024 2:20 PM EST Office Visit Family Practice 65 [facility] 293 [place] [address] College, Pharmacist [address] [place] [address] 293 [place] [address] 04/02/2024 12:30 PM EST [facility] 132 [facility] [place] [address] Betzy Vega, HECTOR 132 [place] [address] 04/03/2024 9:30 AM EST Scheduled Telephone Care Coordination and Integration [address] [place] [address] Mary Jane Valdez, Community Health Roving Marker [address] [place] [address] 04/03/2024 3:40 PM EST Office Visit Family Practice 65 [facility] [address] [place] [address] Apolinar Wayne, 293 [place] [address] 04/13/2024 3:45 PM EST Pharmacy Pharmacy Hematology Oncology [facility] [address] [place] [address] [facility], [facility] Hem/Onc [address] [place] [address] 04/19/2024 10:30 AM EST Imaging Radiology [address] 132 [facility] [place] [address] 04/26/2024 9:00 AM EST Office Visit Hematology/Oncology [facility] [address] [place] [address] Fernando Solo MD 200 [facility] [place] [address] 05/21/2024 2:30 PM EST Office Visit Urology Garima Meyers [address] [place] [address] Michelle Rodriguez PA-C [address] [place] [phone] Scheduled Procedures Name Priority Associated Diagnoses Date/Ti [...] this encounter Medical Devices Implanted Type Area Book Jacket Cover Machine Operator Device Identifier Shelf Expiration Date Model / Serial / Lot Graft Lyoplant 5.0x5.0cm 2x2 - [id number] Implanted:Qty : 1 on 06/24/2020 [place] Madi Kaur [place] [facility] [place] Head B ALICEA : AESCULAP 11/18/2024 [id number] / / [id number] Graft Lyoplant 5.0x5.0cm 2x2 - [id number] Implanted:Qty : 1 on 06/24/2020 by Madi Kaur MD [place] [facility] [place] B ALICEA : AESCULAP [id number] 11/18/2024 [id number] / [id number] / [id number] Graft Lyoplant 5.0x5.0cm 2x2 - [id number] Implanted:Qty : 1 on 06/24/2020 by Madi Kaur MD [place] [facility] [place]: Head B ALICEA : AESCULAP 06/24/2020 [id number] / / [id number] Graft Lyoplant 5.0x5.0cm 2x2 - [id number] Implanted:Qty : 1 on 06/24/2020 by Madi Kaur MD [place] [facility] [place] B ALICEA : AESCULAP [id number] 11/18/2024 [id number] / [id number] / [id number] Plate Ti Lo Pro Str 2h 421.502 - [id number] Implanted:Qty : 2 on 06/24/2020 by Madi Kaur MD [place] [facility] [place]: Head SYNTHES MAXILLOFACIAL 421.502 / / Plate Bx Ti [id number] 4h 421.521 - [id number] Implanted:Qty : 1 on 06/24/2020 by Madi Kaur MD [place] [facility] [place]: Head SYNTHES MAXILLOFACIAL 421.521 / / Screw Ti Lo Pro Sd 4mm 400.834 - [id number] Implanted:Qty : 7 on 06/24/2020 by Madi Kaur MD [place] [facility] [place]: Head SYNTHES MAXILLOFACIAL 400.834 [...] Agents on File Name Relationship Healthcare Agent [facility] Communication Aimee Lam Spouse Health Care Agent Care Teams Food Safety Field Specialist Relationship Specialty Start Date End Date Apolinar Wayne DO [address] [place] [address] PCP - General Internal Medicine 11/15/23 documented as of this encounter"
--- OUTSIDE RECORDS SUMMARY | 2024-04-10 19:10 | External Medical Summary | Summary of Care ---
Author Name Unknown Organization [facility] Address [address] [place] [address] Phone [phone] Care Team Providers Care Family Support Worker Name Role Phone Apolinar Wayne DO Primary Care Provider [phone] Reason for Visit * Reason Onset Date Comments Follow Up Immunization RSV Vaccine 03/27/2024 Encounter Details Date Type Department Care Team (Latest Contact Info) Description 03/27/2024 1:40 PM EST Office Visit Family Practice [address] [facility] [address] [place] [address] Apolinar Wayne DO [address] [place] [address] Glioblastoma (HCC)*; Localization-related epilepsy (HCC); Diabetes mellitus with nephropathy (HCC); Pulmonary hypertension (HCC); Current moderate episode of major depressive disorder without prior episode (HCC); PTSD (post-traumatic stress disorder); HTN, goal below 140/90; Dyslipidemia, goal LDL below 100; BPH with obstruction/lower urinary tract symptoms; Gastro-esophageal reflux disease without esophagitis; History of deep venous thrombosis (DVT) of distal vein of left lower extremity; History of pulmonary embolism; Degeneration of intervertebral disc of lumbar region with discogenic back pain; 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; Type 2 diabetes mellitus with hemoglobin A1c goal of less than 8.0% (HCC); Urinary frequency; Tremor; Need for RSV vaccination Allergies Active Allergy Reactions Criticality Noted Date Comments Erythromycin 07/02/1998 GI upset Guaifenesin & Derivatives 03/18/1997 nucofed documented as of this encounter (statuses as of 03/28/2024) Medications BD Pen Needle Altagracia U/F 32G X 4 MM (Insulin Pen Needle) Use to inject insulin 4 times a day 200 Each 3 Active SURGICAL COMPRESSION STOCKING 20 to 30mm [...] 300 Capsule 3 4 8:14 AM EST 024 2024 Active Sertraline HCl 100 MG Oral Tablet (Zoloft)Indicati ons:Current moderate episode of major depressive disorder without prior episode ([facility]),PTSD (post-traumatic stress disorder) Take 1 Tablet by mouth in the morning. 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 1 Each 1 4 2:07 PM EDT 024 Active Ondansetron HCl 8 MG Oral Tablet (Zofran)Indicati ons:Glioblastoma (HCC) Take 1 tablet by mouth 30 minutes prior to lomustine and every 8 hours as needed for nausea. Do not exceed 3 tablets per 24 hours. 60 Tablet 1 4 2:49 PM EDT 024 Active Atorvastatin Calcium 80 MG Oral Tablet (Lipitor)Indicat ions:Dyslipidemi a, goal LDL below 100 Take 1 Tablet by mouth daily. 100 Tablet 3 4 9:59 AM EDT Active levETIRAcetam 750 MG Oral Tablet take 1 tablet by mouth every 12 hours 60 Tablet 4 4:13 PM EST Active Insulin Glargine 100 UNIT/ML Subcutaneous Solution (Lantus) inject 12 units Subcutaneous every 12 hours 10 mL 4 4:13 PM EST Active Multiple Vitamins Oral Tablet Take 1 Tablet by mouth in the morning. Active LORazepam 0.5 MG Oral Tablet (Ativan)Indicati ons:Anxiety Take 1 Tablet by mouth 3 times a day as needed for Anxiety. 60 Tablet 5 2:47 PM EST 024 Active Finasteride 5 MG Oral Tablet (Proscar) TAKE ONE TABLET BY MOUTH EVERY DAY IN THE MORNING 100 Tablet 1 5 2:09 PM EST 025 Active Arexvy 120 MCG/0.5ML Intramuscular Suspension Reconstituted (RSV PreF3 Vac Recomb Adjuvanted)Indic ations:Need for RSV vaccination Inject 0.5 mL into a large muscle once for 1 dose. 1 Each 5 4:20 PM EST 025 2024 Active Co Q 10 100 MG Oral Capsule [...] with nephropathy 06/27/2018 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 06/27/2018 intermediate (current) use of insulin 10/27/2017 History of [...] mRNA, LNP-s, No Pre serve, 2-Dose Series (Rifiniti) 03/10/2021,06/07/2020,05/17/2020 COVID-19, LNP-s, No Preserve , Chandler-sucrose, Ages 12+ (Pfizer) 11/17/2021 COVID-19, MRNA-LNP, PF, 30 M CG/0.3 mL, 12 YRS AND ABOVE, IM ([employer]-Comirnat) 01/17/2024,03/08/2023 Covid-19, Mrna, Lnp-s, Pf, B ivalent, 30 Mcg, IM, 12 yrs and above (Rifiniti) 04/13/2022 H1N1 2009 Influenza, IM 12/10/2019,04/01/2009 Pneumococcal [...] Sign Reading Time Taken Comments Blood Pressure 118/74 03/27/2024 2:42 PM EST Pulse 74 03/27/2024 2:42 PM EST Temperature 36.4 C (97.6 F) 03/27/2024 2:42 PM ES T Respiratory Rate - - Oxygen Saturation 99% 03/27/2024 2:42 PM EST Inhaled Oxygen Concentration - - Weight 88.5 kg (195 lb) 03/27/2024 2:42 PM EST Height 167.6 cm (5' 6") 03/27/2024 2:42 PM EST Body Mass Index 31.47 03/27/2024 2:42 PM EST documented in this encounter Functional [...] valentine Morse RN documented in this encounter Patient Instructions * Patient Instructions* Sadie Madera LPN - 03/27/2024 3:00 PM EST Possible side effects of RSV vaccine, (Respiratory Syncytial Virus), are usually mild and can include: Soreness, swelling or redness at injection site Low grade fever Body aches or joint pain Headache Nausea or diarrhea You may use a fever/pain reducing medication for these symptoms. LET YOUR DOCTOR KNOW IMMEDIATELY IF YOU HAVE DIFFICULTY BREATHING OR SWALLOWING, EXPERIENCE ITCHINGOF FEET OR HANDS, HAVE SWELLING OF EYES, FACE OR INSIDE OF NOSE. documented in this encounter Progress Notes * Apolinar Wayne DO - 03/28/2024 7:52 AM EST SUBJECTIVE: Denis Lam is a 73 year old male. Chief Complaint Patient presents with Follow Up Immunization RSV Vaccine HPI: Patient is a 73 year old male with a history of right temporal lobe GBM [place] [facility] [place], resection of recurrent GBM at [facility] on 01/31/2024, DM type II, Hyperlipidemia,BPH, Pulmonary HTN, Pulmonary Embolism, left leg DVT, Hedrick's Esophagus, Anxiety, and Depression that is seen for follow up. No chest pain or shortness of breath are present. Left eye vision loss is unchanged. Urinary frequency is improving. No urinary retention present on Zulma; US. He ambulates with a cane. He continues to follow with Medical Oncology and Neurosurgery. The patient hopes to start chemotherapy in the near future. MRI of the brain is scheduled on 04/19/2024 at [facility]. Patient is at the visit with his . Patient Active Problem List Diagnosis Dyslipidemia, goal LDL below 100 HTN, goal below 140/90 Lumbar degenerative disc disease BPH with obstruction/lower urinary tract symptoms History of urinary retention History of pulmonary embolism History of deep venous thrombosis (DVT) of distal vein of left lower extremity intermediate (current) use of insulin (HCC) Diabetes mellitus [...] 1 Tablet by mouth in the morning. Rivaroxaban 20 MG Oral Tablet (Xarelto) Take 1 Tablet by mouth every afternoon. (get from the NH) Vitamin D3 25 MCG (1000 UT) Oral Capsule Take 1 Capsule by mouth every evening. Magnesium Oxide 420 MG Oral Tablet Take 1 Tablet by mouth every evening. Gabapentin 300 MG Oral Capsule (Neurontin) TAKE BY MOUTH ONE CAPSULE IN THE MORNING AND ONE CAPSULEAT NOON AND ONE CAPSULE BEFORE BEDTIME 300 Capsule 3 Sertraline HCl 100 MG Oral Tablet (Zoloft) Take 1 Tablet by mouth in the morning. 100 Tablet 3 Carvedilol 3.125 MG Oral Tablet (Coreg) TAKE ONE TABLET BY MOUTH TWICE A DAY WITH MORNING AND EVENING MEALS 200 Tablet 3 Pantoprazole Sodium 40 MG Oral Tablet Delayed Release (Protonix) TAKE ONE TABLET BY MOUTH EVERY GUX369 Tablet 3 Tamsulosin HCl 0.4 MG Oral Capsule (Flomax) TAKE ONE CAPSULE BY MOUTH EVERY DAY 100 Capsule 3 Ondansetron HCl 8 MG Oral Tablet (Zofran) [...] units Subcutaneous every 12 hours 10 mL 0 Multiple Vitamins Oral Tablet Take 1 Tablet by mouth in the morning. LORazepam 0.5 MG Oral Tablet (Ativan) Take 1 Tablet by mouth 3 times a day as needed for Anxiety. 60 Tablet 0 Finasteride 5 MG Oral Tablet (Proscar) TAKE ONE TABLET BY MOUTH EVERY DAY IN THE MORNING 100 Tablet1 Arexvy 120 MCG/0.5ML Intramuscular Suspension Reconstituted (RSV PreF3 Vac Recomb Adjuvanted) Inject 0.5 mL into a large muscle once for 1 dose. 1 Each 0 BD Pen Needle Altagracia U/F 32G X 4 MM (Insulin Pen Needle) Use to inject insulin 4 times a day 200 Each3 SURGICAL COMPRESSION STOCKING 20 to 30mm knee high. 2 Each 6 FreeStyle Aarti 2 Sensor Use as directed every 14 days . 1 Each 0 Diclofenac Sodium 1 % External Gel (Voltaren) APPLY TOPICALLY TO AFFECTED AREA 3 TIMES A DAY -- TO HANDS, BILATERALLY FOR ARTHRITIC PAIN 200 g 5 Valtoco 10 MG Dose 10 MG/0.1ML Nasal Liquid (diazePAM) Administer 10 mg into nostril as needed (seizures lasting longer than 3 minutes). 1 Each 1 No current facility-administered medications for this visit. [...] performed by Luana Callahan DO at ENDOSCOPY [facility] COLONOSCOPY, DIAGNOSTIC (RECTUM) 11/02/2019 internal hemorrhoids/biopsies show adenomatous polyps/recall 5 years/COLONOSCOPY FLEXIBLE PROXIMAL DIAGNOSTIC performed by Luana Callahan DO at ENDOSCOPY [facility] EGD, FLEXIBLE, DIAGNOSTIC 12/13/2011 Hedrick's-repeat EGD 3 yrs/repeat EUS 3-6 monthsUPPER GI ENDOSCOPY DIAGNOSTIC performed by Luana Diaz DO at ENDOSCOPY [facility] EGD, FLEXIBLE, DIAGNOSTIC 06/06/2015 sm HH, Barretts, repeat 3 yrs/ESOPHAGOGASTRODUODENOSCOPY (EGD), FLEXIBLE, TRANSORAL, DIAGNOSTIC performed by Luana Callahan DO at ENDOSCOPY [facility] EGD, FLEXIBLE, DIAGNOSTIC 09/27/2018 mild inflammation on bx, repeat 3 yrs/ESOPHAGOGASTRODUODENOSCOPY (EGD), FLEXIBLE, TRANSORAL, DIAGNOSTIC performed by Luana Callahan DO at ENDOSCOPY [facility] EGD, FLEXIBLE, W/BIOPSY 12/11/2009 done bxs done barretts esophagus EGD, W/ENDOSCOPIC US 12/11/2009 done no cyst identified,multiple small stones and sludge in gallbladder pancreas without masses of ductal dilatation barretts esophagus with a small nodule bxs done EGD, W/ENDOSCOPIC US 04/03/2012 UPPER GI ENDOSCOPY ENDOSCOPIC ULTRASOUND performed by Luana Callahan DO at OR [facility] MICROSURGERY ADD-ON Right 06/24/2020 MICROSURGICAL SURGERY REQUIRING MICROSCOPE LISTED SEPARATELY performed by Inés [employer] [place] [facility] REMOVAL OF APPENDIX REMOVE CATARACT, INSERT LENS PROSTH Left 08/22/2019 REMOVE CATARACT, INSERT LENS PROSTH Right 09/05/2019 REMOVE SUPRATENTORIAL BRAIN TUMOR Right 06/24/2020 CRANIOTOMY BONE FLAP EXCISION BRAIN TUMOR SUPRATENTORIAL performed by Madi Kaur MD at [place] [facility] REMOVE TONSILS & ADENOIDS, UNDER 12 T & A, age<12 REPAIR RUPTURED ROTATOR CUFF, CHRON 06/27/2013 right - Dr. Bryant STEREOTACTIC CRANIAL INTRADURAL NAVIGATION Right 06/24/2020 STEREOTACTIC CRANIAL INTRADURAL NAVIGATION performed by Madi Kaur MD at [place] [facility] Review of patient's allergies indicates: Allergen Reactions Erythromycin GI upset Guaifenesin & Derivatives nucofed Review of Systems Constitutional: Positive for fatigue. Negative for appetite change, chills, fever and unexpected weight change. HENT: Negative for congestion, sore throat and trouble swallowing. Respiratory: Negative for cough, shortness of breath and wheezing. Cardiovascular: Negative for chest pain, palpitations and leg swelling. Gastrointestinal: Negative for abdominal pain, blood in stool, constipation, diarrhea, nausea and vomiting. Genitourinary: Positive for difficulty urinating and frequency. Negative for hematuria. Musculoskeletal: Positive for back pain and gait problem. Neurological: Negative for dizziness, syncope and headaches. Psychiatric/Behavioral: Negative for confusion, decreased concentration and sleep disturbance. OBJECTIVE: BP 118/74 | Pulse 74 | Temp 97.6 F (36.4 C) | Ht 5' 6" (1.676 m) | Wt 195 lb (88.5 kg) | SpO2 99% | BMI 31.47 kg/m | BSA 2.03 m Physical Exam Vitals and nursing note reviewed. Constitutional: General: He is not in acute distress. Appearance: Normal appearance. He is not toxic-appearing. HENT: Head: Normocephalic and atraumatic. Cardiovascular: Rate and Rhythm: Normal rate and regular rhythm. Heart sounds: Normal heart sounds. No murmur heard. No gallop. Pulmonary: Effort: Pulmonary effort is normal. Breath sounds: Normal breath sounds. No wheezing, rhonchi or rales. Abdominal: General: Bowel sounds are normal. There is no distension. Palpations: Abdomen is soft. Tenderness: There is no abdominal tenderness. Musculoskeletal: Right lower leg: No edema. Left lower leg: No edema. Neurological: Mental Status: He is alert. Motor: Weakness present. Gait: Gait abnormal. Psychiatric: Mood and Affect: Mood normal. Behavior: Behavior normal. Thought Content: Thought content normal. PLAN AND ASSESSMENT: Glioblastoma (HCC) (Primary) Continue to follow with Medical Oncology MRI scheduled 04/19/2024 Localization-related epilepsy (HCC) Continue Levetiracetam Diabetes mellitus with nephropathy (HCC) Continue Gabapentin Pulmonary hypertension (HCC) Current moderate episode of major depressive disorder without prior episode (HCC) Continue Sertraline PTSD (post-traumatic stress disorder) Continue Sertraline HTN, goal below 140/90 Continue Carvedilol Dyslipidemia, goal LDL below 100 Continue Atorvastatin BPH with obstruction/lower urinary tract symptoms Continue Tamsulosin Gastro-esophageal reflux disease without esophagitis Continue Pantoprazole History of deep venous thrombosis (DVT) of distal vein of left lower extremity Continue Rivaroxaban History of pulmonary embolism Degeneration of intervertebral disc of lumbar region with discogenic back pain 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 Continue Lorazepam as needed Type 2 diabetes mellitus with hemoglobin A1c goal of less than 8.0% (HCC) Continue Lantis per MTM Urinary frequency Improving Tremor Bilateral upper extremity Need for RSV vaccination - RSV VAC., RECOMB, ADJUVANT, PF,0.5 ML (AREXVY) - Arexvy 120 MCG/0.5ML Intramuscular Suspension Reconstituted (RSV PreF3 Vac Recomb Adjuvanted); Inject 0.5 mL into a large muscle once for 1 dose. Follow Up: Return in about 1 month (around 04/27/2024), or if symptoms worsen or fail to improve. Apolinar Wayne DO 7:53 AM 03/28/2024 documented in this encounter Nursing Notes * Sadie Madera LPN - 03/27/2024 2:42 PM EST Patient presents for follow up, voices no complaints. Little depressed today. Had visit with [facility]. documented in this encounter Plan of Treatment Upcoming Encounters Date Type Department Care Team (Late st Contact Info) Description 04/02/2024 12:30 PM EST Home Visit [facility] [address] [facility] [place] [address] Betzy Vega RN [address] [facility] [place] [address] 04/03/2024 9:30 AM EST Scheduled Telephone Care Coordination and Integration [address] [place] [address] Mary Jane Valdez, [facility] [employer] [address] [place] [address] 04/03/2024 3:40 PM EST Office Visit Family Practice [address] [place] [address], [place] [address] [place] [address] Apolinar Wayne DO [address] [place] [address] 04/13/2024 3:45 PM EST Pharmacy Pharmacy Hematology Oncology [facility] [address] [place] [address] [facility] Hem[facility]Onc [address] [place] [address] 04/19/2024 10:30 AM EST Imaging Radiology [address] [facility] [place] [address] 04/26/2024 9:00 AM EST Office Visit Hematology/Oncology [facility] [address] [place] [phone] Fernando Solo MD [address] [place] [address] 04/27/2024 3:00 PM EST Office Visit Family Practice [address] [facility] [address] [place] [address] Apolinar Wayne, [address] [place] [address] 05/21/2024 2:30 PM EST Office Visit Urology Gariam Meyers [address] [facility] [address] [place] [address] [address] Michelle Rodriguez PA-C [address] [place] [address] Scheduled Procedures Name Priority Associated Diagnoses Date/Ti [...] this encounter Medical Devices Implanted Type Area Fitting Room Maintenance Mechanic Device Identifier Shelf Expiration Date Model / Serial / Lot Graft Lyoplant 5.0x5.0cm 2x2 - [id number] Implanted:Qty : 1 on 06/24/2020 by Madi Kaur MD [place] [facility] Right: Head B ALICEA : AESCULAP 11/18/2024 [id number] / / [id number] Graft Lyoplant 5.0x5.0cm 2x2 - [id number] Implanted:Qty : 1 on 06/24/2020 by Madi Kaur MD at [place] [facility] B ALICEA : AESCULAP [id number] 11/18/2024 [id number] / [id number] / [id number] Graft Lyoplant 5.0x5.0cm 2x2 - [id number] Implanted:Qty : 1 on 06/24/2020 by Madi Kaur MD at [place] [facility] Right: Head B [employer]ICEA : AESCULAP 06/24/2020 [id number] / / [id number] Graft Lyoplant 5.0x5.0cm 2x2 - [id number] Implanted:Qty : 1 on 06/24/2020 by Madi Kaur MD at [place] [facility] B [employer]ICEA : AESCULAP [id number] 11/18/2024 [id number] / [id number] / [id number] Plate Ti Lo Pro Str 2h 421.502 - [id number] Implanted:Qty : 2 on 06/24/2020 by Madi Kaur MD at [place] [facility] Right: Head SYNTHES MAXILLOFACIAL 421.502 / / Plate Bx Ti [id number] 4h 421.521 - [id number] Implanted:Qty : 1 on 06/24/2020 by Madi Kaur MD at [place] [facility] Right: Head SYNTHES MAXILLOFACIAL 421.521 / / Screw Ti Lo Pro Sd 4mm 400.834 - [id number] Implanted:Qty : 7 on 06/24/2020 by Madi Kaur MD at [place] [facility] Right: Head SYNTHES MAXILLOFACIAL 400.834 / / documented as of this encounter Visit Diagnoses Diagnosis Glioblastoma (HCC)- Primary Malignant neoplasm of brain, unspecified site Localization-related epilepsy (HCC) Localization-related (focal) (partial) epilepsy and epileptic syndromes with simple partial seizures, without mention of intractable epilepsy Diabetes mellitus with nephropathy (HCC) Type II or unspecified type diabetes mellitus with renal manifestations, not stated as uncontrolled Pulmonary hypertension (HCC) Other chronic pulmonary heart diseases Current moderate episode of major depressive disorder without prior episode (HCC) PTSD (post-traumatic stress disorder) Posttraumatic stress disorder HTN, goal below 140/90 Unspecified essential hypertension Dyslipidemia, goal LDL below 100 Other and unspecified hyperlipidemia BPH with obstruction/lower urinary tract symptoms Hypertrophy of prostate with urinary obstruction and other lower urinary tract symptoms (LUTS) Gastro-esophageal reflux disease without esophagitis Esophageal reflux History of deep venous thrombosis (DVT) of distal vein of left lower extremity History of pulmonary embolism Personal history of pulmonary embolism Degeneration of intervertebral disc of lumbar region with discogenic back pain 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 Persistent disorder of initiating or maintaining sleep Type 2 diabetes mellitus with hemoglobin A1c goal of less than 8.0% (HCC) Urinary frequency Tremor Abnormal involuntary movements Need for RSV vaccination Need for prophylactic vaccination and inoculation against respiratory syncytial virus documented in this encounter Advance Directives * [...] Agents on File Name Relationship Healthcare Agent [facility] p Communication Aimee Lam Spouse Health Care Agent Care Teams Family Support Worker Relationship Specialty Start Date End Date Apolinar Wayne DO [address] [place] [address] PCP - General Internal Medicine 11/15/23 documented as of this encounter
--- OUTSIDE RECORDS SUMMARY | 2024-04-10 19:10 | External Medical Summary | Summary of Care ---
Author Name Unknown Organization [facility] Address [address] [place] [address] Phone [phone] Care Team Providers Care Shipfitter Helper Name Role Phone Apolinar Wayne DO Primary Care Provider [phone] Reason for Visit * Reason Onset Date Comments Appointment 03/26/2024 Encounter Details Date Type Department Care Team (Late st Contact Info) Description 03/26/2024 Telephone Family Practice [address] [facility], [place] [address] [place] [address] Apolinar Wayne DO [address] [place], [place] [id number] Appointment Allergies Active Allergy Reactions Criticality Noted Date [...] by mouth every afternoon. (get from the [place]) 04/15/19 22 Active Vitamin D3 25 MCG (1000 UT) Oral CapsuleIndication s:general health Take 1 Capsule by mouth every evening. Active FreeStyle Aarti 2 SensorIndications :Type 2 diabetes mellitus with hemoglobin A1c goal of less than 7.0% ([facility]) Use as directed every 14 [...] mRNA, LNP-s, No Pre serve, 2-Dose Series (Stylenda) 03/10/2021,06/07/2020,05/17/2020 COVID-19, LNP-s, No Preserve , Chandler-sucrose, Ages 12+ (Pfizer) 11/17/2021 COVID-19, MRNA-LNP, PF, 30 M CG/0.3 mL, 12 YRS AND ABOVE, IM (PFIZER-Comirnaty) 01/17/2024,03/08/2023 Covid-19, Mrna, Lnp-s, Pf, B ivalent, 30 Mcg, IM, 12 yrs and above (Stylenda) 04/13/2022 H1N1 2009 Influenza, IM 12/10/2019,04/01/2009 Pneumococcal [...] Telephone Encounter - Apolinar Wayne DO - 03/26/2024 11:48 AM EST Noted. * Telephone Encounter - Jewell Locke LPN - 03/26/2024 11:47 AM EST STEPHANIE * Telephone Encounter - Sharonda Noe OSA - 03/26/2024 9:02 AM EST Amie from [facility] Home Health calling to let Dr. Wayne that she was finally able to confirm a visit for this week with the patient. She stated she was having trouble for varius reasons to actually get in to evaluate. documented in this encounter Plan of Treatment Upcoming Encounters Date Type Department Care Team (Late st Contact Info) Description 03/27/2024 12:00 PM EST Scheduled Telephone Care Coordination and Integration [address] [place] [address] Mary Jane Valdez, Community Health Attendance Secretary [address] [place] [address] 03/27/2024 1:40 PM EST Office Visit Family [address] [place] [address] Apolinar Wayne, DO [address] [place] [address] 04/02/2024 12:30 PM EST Home Visit [facility], [facility] [address] [place] [address] Betzy Vega RN 132 [facility] [place] [address] 04/03/2024 9:30 AM EST Scheduled Telephone Care Coordination and Integration [address] [place] [address] Mary Jane Valdez, Community Health Attendance Secretary [address] [place] [address] 04/03/2024 3:40 PM EST Office Visit Family Practice [address] [place] [address] [address] [place] [address] Apolinar Wayne, DO [address] [place] [address] 04/13/2024 3:45 PM EST Pharmacy Pharmacy Hematology Oncology [facility] [address] [place] [address] [facility], [facility] Hem/Onc [address] [place] [address] 04/19/2024 10:30 AM EST Imaging Radiology [address] [place] [address] 04/26/2024 9:00 AM EST Office Visit Hematology/Oncology [facility] [address] [facility] [place] [phone] Fernadno Solo MD 200 [facility] [place] [address] 05/21/2024 2:30 PM EST Office Visit Urology Garima Meyers [address] [place] [address] Michelle Rodriguez PA-C [address] [place] [address] Scheduled Procedures Name Priority Associated Diagnoses Date/Ti [...] this encounter Medical Devices Implanted Type Area Satellite Tv Technician Device Identifier Shelf Expiration Date Model / Serial / Lot Graft Lyoplant 5.0x5.0cm 2x2 - [id number] Implanted:Qty : 1 on 06/24/2020 by Madi Kaur MD at OR [facility] Right: Head B ALICEA : AUTUMNCULACleo 11/18/2024 [id number] / / [id number] Graft Lyoplant 5.0x5.0cm 2x2 - [id number] Implanted:Qty : 1 on 06/24/2020 by Madi Kaur MD at OR [facility] B ALICEA : ARIAN [id number] 11/18/2024 [id number] / [id number] / [id number] Graft Lyoplant 5.0x5.0cm 2x2 - [id number] Implanted:Qty : 1 on 06/24/2020 by Madi Kaur MD at OR [facility] Right: Head B ALICEA : AESCULAP 06/24/2020 [id number] / / [id number] Graft Lyoplant 5.0x5.0cm 2x2 - [id number] Implanted:Qty : 1 on 06/24/2020 by Madi Kaur MD at OR [facility] B ALICEA : ARIAN [id number] 11/18/2024 [id number] / [id number] / [id number] Plate Ti Lo Pro Str 2h 421.502 - [id number] Implanted:Qty : 2 on 06/24/2020 by Madi Kaur MD at OR [facility] Right: Head SYNTHES MAXILLOFACIAL 421.502 / / Plate Bx Ti [id number] 4h 421.521 - [id number] Implanted:Qty : 1 on 06/24/2020 by Madi Kaur MD at OR [facility] Right: Head SYNTHES MAXILLOFACIAL 421.521 / / Screw Ti Lo Pro Sd 4mm 400.834 - [id number] Implanted:Qty : 7 on 06/24/2020 by Madi Kaur MD at OR [facility] Right: Head SYNTHES MAXILLOFACIAL 400.834 / / [...] Lam Spouse Health Care Agent Care Teams Shipfitter Helper Relationship Specialty Start Date End Date Apolinar Wayne DO [address] [place] [address] PCP - General Internal Medicine 11/15/23 documented as of this encounter
--- OUTSIDE RECORDS SUMMARY | 2024-04-10 19:11 | External Medical Summary | Summary of Care ---
Author Name Unknown Organization [facility] Address [address] [place] [address] Phone [phone] Care Team Providers Care Powdered Sugar Supervisor Name Role Phone Apolinar Wayne DO Primary Care Provider [phone] Reason for Visit * Reason Onset Date Comments [facility]: Maintenance 03/22/2024 Encounter Details Date Type Department Care Team (Late st Contact Info) Description 03/22/2024 Telephone [facility], [facility] [address] [facility] [place] [phone] Lis Graham, HAIR WORKER [address] [facility] [place] [phone] [facility]: Maintenance Allergies Active Allergy Reactions Criticality Noted Date Comments Erythromycin 07/02/1998 GI upset Guaifenesin & Derivatives 03/18/1997 nucofed documented as of this encounter (statuses as of 03/22/2024) Medications BD Pen Needle Altagracia U/F 32G [...] A1c goal of less than 7.0% ([facility]) Use as directed every 14 days [...] 1:19 PM EDT 09/12/19 24 025 Active Additional Information Patient taking [...] as of this encounter (statuses as of 03/22/2024) Active Problems Problem Noted Date Diagnosed Date [...] as of this encounter (statuses as of 03/22/2024) Resolved Problems Problem Noted Date Diagnosed Date [...] as of this encounter (statuses as of 03/22/2024) Immunizations Name Administration Dates Next Due COVID-19 mRNA, LNP-s, No Pre serve, 2-Dose Series ([employer] 03/10/2021,06/07/2020,05/17/2020 COVID-19, LNP-s, No Preserve , Chandler-sucrose, [...] Telephone Care Coordination and Integration [address] [place] [address] Mary Jane Valdez, Community Health Fixture Relamper [address] [place] [address] 03/27/2024 1:40 PM EST Office Visit Family Practice [address], [place] [address] [place] [address] Apolinar Wayne, DO [address] [place] [address] 04/02/2024 12:30 PM EST Home Visit [facility], [facility] [address] [facility] [place] [address] Betzy Vega, RN 132 [facility] [place] [address] 04/03/2024 9:30 AM EST Scheduled Telephone Care Coordination and Integration [address] [place] [address] Mary Jane Valdez, Community Health Fixture Relamper [address] [place] [address] 04/03/2024 3:40 PM EST Office Visit Family Practice [address] [place] [address] [address] [place] [address] Apolinar Wayne, [address] [place] [address] 04/13/2024 3:45 PM EST Pharmacy Pharmacy Hematology Oncology [facility] [address] [place] [address] [facility], [facility] Hem/Onc [address] [place] [address] 04/19/2024 10:30 AM EST Imaging Radiology [address] [facility] Noah [facility] [place] [address] 04/26/2024 9:00 AM EST Office Visit Hematology/Oncology [facility] 200 [facility] [place] [address] Fernando Solo MD [address] [facility] [place] [address] 05/21/2024 2:30 PM EST Office Visit Urology Garima Meyers [address] [facility] [address] [place] [address] Michelle Rodriguez PA-C [address] [place] [address] Scheduled Procedures Name Priority Associated Diagnoses Date/Ti [...] this encounter Medical Devices Implanted Type Area Executive Communications Manager Device Identifier Shelf Expiration Date Model / Serial / Lot Graft Lyoplant 5.0x5.0cm 2x2 - [id number] Implanted:Qty : 1 on 06/24/2020 by Madi Kaur MD at OR [facility] Right: Head B ALICEA : AESCULAP 11/18/2024 [id number] / / [id number] Graft Lyoplant 5.0x5.0cm 2x2 - [id number] Implanted:Qty : 1 on 06/24/2020 by Madi Kaur MD at OR [facility] B ALICEA : AESCULAP [id number] 11/18/2024 [id number] / [id number] / [id number] Graft Lyoplant 5.0x5.0cm 2x2 - [id number] Implanted:Qty : 1 on 06/24/2020 by Madi Kaur MD at OR [facility] Right: Head B ALICEA : AESCULAP 06/24/2020 [id number] / / [id number] Graft Lyoplant 5.0x5.0cm 2x2 - [id number] Implanted:Qty : 1 on 06/24/2020 by Madi Kaur MD at OR [facility] B ALICEA : AESCULAP [id number] 11/18/2024 [id number] / [id number] / [id number] Plate Ti Lo Pro Str 2h 421.502 - [id number] Implanted:Qty : 2 on 06/24/2020 by Madi Kaur MD at OR [facility] Right: Head SYNTHES MAXILLOFACIAL 421.502 / / Plate Bx Ti [id number] 4h 421.521 - [id number] Implanted:Qty : 1 on 06/24/2020 by Madi Kaur MD at OR [facility] Right: Head SYNTHES MAXILLOFACIAL 421.521 / / Screw Ti Lo Pro Sd 4mm 400.834 - [id number] Implanted:Qty : 7 on 06/24/2020 by Madi Kaur MD at OR [facility] Right: Head SYNTHES MAXILLOFACIAL 400.834 [...] Agents on File Name Relationship Healthcare Agent [facility] Shira Lam Spouse Health Care Agent Care Teams Powdered Sugar Supervisor Relationship Specialty Start Date End Date Apolinar Wayne DO [address] [place] [address] PCP - General Internal Medicine 11/15/23 documented as of this encounter
--- OUTSIDE RECORDS SUMMARY | 2024-04-10 19:11 | External Medical Summary ---
Author Name Unknown Address Unknown Organization [id number]:[facility] - [address] [facility] [address] Laboratory Report Ordering Provider Test Date Status NEREYDA GEORGES 03/20/2024 16:11:12 Final Observation Date Value Abnormality Reference (Units) Status Bacteria identified in Specimen by Culture 03/20/2024 16:11:12 No significant growth Final Test: Culture, Urine, Quanti tative
Specimen Source: Urine, Clean Catch
Specimen Type: Urine
Specimen Date: 03/20/2024 1611
Result Date: 03/21/2024 1907
Result Status: Final result
Resulting Lab: [facility]
[address]
[facility] [address]

CULTURE

No significant growth

null Performing Location [facility] - [address] [facility] [address]
--- OUTSIDE RECORDS SUMMARY | 2024-04-10 19:11 | External Medical Summary ---
Author Name Unknown Address Unknown Organization [id number]:[facility] - [address] [facility] [place] [address] Laboratory Report Ordering Provider Test Date Status NEERYDA GEORGES 03/20/2024 16:14:29 Final Observation Date Value Abnormality Reference (Units ) Status SYNC LEUKOCYTES IN BLOOD BY AUTOMATED COUNT 03/20/2024 16:14:29 7.38 4.00-10.80 (K/uL) Final Segs 03/20/2024 16:14:29 65.6 40.0-75.0 (%) Final Lymphs % 03/20/2024 16:14:29 20.1 18.0-42.0 (%) Final Monos 03/20/2024 16:14:29 10.7 1.0-11.0 (%) Final Eosinophils 03/20/2024 16:14:29 2.6 0.0-6.0 (%) Final Basos 03/20/2024 16:14:29 0.5 0.0-2.0 (%) Final Immature Granulocyte, Percent 03/20/2024 16:14:29 0.5 0.0-2.0 (%) Final Absolute Segs 03/20/2024 16:14:29 4.84 1.80-7.70 (K/uL) Final Lymphs, absolute 03/20/2024 16:14:29 1.48 1.00-4.80 (K/ul) Final Monos, Abs 03/20/2024 16:14:29 0.79 0.00-1.10 (K/uL) Final Eos, Abs 03/20/2024 16:14:29 0.19 0.00-0.70 (K/uL) Final Basos, Abs 03/20/2024 16:14:29 0.04 0.00-0.20 (K/uL) Final Immature Granulocytes, Number 03/20/2024 16:14:29 0.04 0.00-0.20 (K/uL) Final Performing Location [facility] - [address] [facility] [address]
--- OUTSIDE RECORDS SUMMARY | 2024-04-10 19:11 | External Medical Summary | Summary of Care ---
Author Name Unknown Organization [facility] Address [address] [place] [address] Phone [phone] Care Team Providers Care Box Loader Name Role Phone Apolinar Wayne DO Primary Care Provider [phone] Reason for Visit * Reason Comments Hospital Follow-Up Pt was admitted to he hospital - states that he is doing better, is walking. Memory is coming back slowly. Does have some questions or concerns. Encounter Details Date Type Department Care Team (Latest Contact Info) Description 03/20/2024 2:20 PM EST Office Visit Family Practice [address] [facility], [place] [address] [place] [address] Apolinar Wayne DO [address] [place] [address] Glioblastoma (HCC)*; Type 2 diabetes mellitus with hemoglobin A1c goal of less than 7.0% ([facility]); HTN, goal below 140/90; Dyslipidemia, goal LDL below 100; Localization-related epilepsy (HCC); Degeneration of intervertebral disc of lumbar region with discogenic back pain; BPH with obstruction/lower urinary tract symptoms; History of deep venous thrombosis (DVT) of distal vein of left lower extremity; 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 ([facility]); 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; History of urinary retention; Decreased urine output; Current moderate episode of major depressive disorder without prior episode (HCC); Gastro-esophageal reflux disease without esophagitis; Tremor; Urinary frequency Allergies Active Allergy Reactions Criticality Noted Date [...] hemoglobin A1c goal of less than 7.0% ([facility]) Use as directed every 14 [...] 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 06/27/2018 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 10/27/2017 History [...] mRNA, LNP-s, No Pre serve, 2-Dose Series ([employer]) 03/10/2021,06/07/2020,05/17/2020 COVID-19, LNP-s, No Preserve , Chandler-sucrose, [...] Sign Reading Time Taken Comments Blood Pressure 120/84 03/20/2024 2:52 PM EST Pulse 89 03/20/2024 2:52 PM EST Temperature 36.4 C (97.6 F) 03/20/2024 2:52 PM ES T Respiratory Rate 14 03/20/2024 2:52 PM EST Oxygen Saturation 97% 03/20/2024 2:52 PM EST Inhaled Oxygen Concentration - - Weight 87.9 kg (193 lb 12.8 oz) 03/20/2024 2:52 PM EST Height 167.6 cm (5' 6") 03/20/2024 2:52 PM EST Body Mass Index 31.28 03/20/2024 2:52 PM EST documented in this encounter Functional [...] in this encounter Progress Notes * Apolinar Wayne, DO - 03/22/2024 2:48 PM EST SUBJECTIVE: Denis Lam is a 73 year old male. Chief Complaint Patient presents with Hospital Follow-Up Pt was admitted to the hospital - states that he is doing better, is walking. Memory is coming backslowly. Does have some questions or concerns. HPI: Patient is a 73 year old male with a history of right temporal lobe GBM resection at [facility] on 07/14/2020, resection of recurrent GBM at [facility] on 01/31/2024, DM Type II, Hyperlipidemia,BPH. Pulmonary HTN, Pulmonary Embolism, left leg DVT, Hedrick's Esophagus, Anxiety, and Depression that is seen for hospital follow up. The patient was admitted to [facility] 03/02/2024- 03/05/2024 due to multiple falls due to Orthostatic Hypotension and Hypoglycemia. Medications were adjusted. Amlodipine, and Losartan were stopped. Lantus dose was decreased. Dizziness has resolved. No chest pain or shortness of breath are present. Patient is having difficulty emptying his bladder and is urinating frequently since hospitalization at [facility]. He continues to follow with Medical Oncology and Neurosurgery. The patient is at the visit with his . 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 2 Each 6 B Complex (Folic Acid) Oral Tablet Take 1 Tablet by mouth in the morning. Rivaroxaban 20 MG Oral Tablet (Xarelto) Take 1 Tablet by mouth every afternoon[facility] Vitamin D3 25 MCG (1000 UT) Oral [...] BILATERALLY FOR ARTHRITIC PAIN 200 g 5 Carvedilol 3.125 MG Oral Tablet (Coreg) TAKE ONE TABLET BY MOUTH TWICE A DAY WITH MORNING AND EVENING MEALS 200 Tablet 3 Pantoprazole Sodium 40 MG Oral Tablet Delayed Release (Protonix) TAKE ONE TABLET BY MOUTH EVERY [id number] Tablet 3 Finasteride 5 MG Oral Tablet (Proscar) TAKE ONE TABLET BY MOUTH EVERY DAY IN THE MORNING (Patient taking differently: every night at bedtime.) 100 Tablet 1 Tamsulosin HCl 0.4 MG Oral Capsule (Flomax) TAKE ONE CAPSULE BY MOUTH EVERY DAY 100 Capsule 3 Valtoco 10 MG Dose 10 MG/0.1ML [...] hours (Patient taking differently: Inject under the skin daily. 10 units daily) 10 mL 0 Co Q 10 100 MG Oral Capsule Take 1 Capsule by mouth every evening. Multiple Vitamins Oral Tablet Take 1 Tablet by mouth in the morning. LORazepam 0.5 MG Oral Tablet (Ativan) Take 1 Tablet by mouth 3 times a day as needed for Anxiety. 60 Tablet 0 No current facility-administered medications for this visit. The patient's medication list was reviewed and updated as needed. Past Medical History: Diagnosis Date Hedrick esophagus 12/13/2011 repeat EGD in 3 yrs/repeat EUS in 3-6 months Benign neoplasm of colon 08/26/2006 hyperplastic polyp-repeat colonoscopy in 10 years DM type 2, goal A1c below 7 01/16/2009 Dyslipidemia, goal LDL below 100 03/04/2009 HTN, goal below 130/80 04/16/2009 Lumbar degenerative disc disease 08/10/2016 Pulmonary hypertension (HCC) 10/10/2018 Shingles 09/2012 right T-8 Steroid-induced hyperglycemia Past Surgical History: Procedure Laterality Date ARTHROSCOPY SHOULDER,SURGICAL 11/2005 Dr. Bryant-right shoulder BIOPSY OF PROSTATE 12/2004 No malignancy COLONOSCOPY 08/26/2006 Single polyp hyperplastic-repeat in 10years COLONOSCOPY, DIAGNOSTIC (RECTUM) 09/30/2016 adenomatous polyp, repeat 3 yrs/COLONOSCOPY FLEXIBLE PROXIMAL DIAGNOSTIC performed by Luana Callahan DO at ENDOSCOPY [facility] COLONOSCOPY, DIAGNOSTIC (RECTUM) 11/02/2019 internal hemorrhoids/biopsies show adenomatous polyps/recall 5 years/COLONOSCOPY FLEXIBLE PROXIMAL DIAGNOSTIC performed by Luana Callahan DO at ENDOSCOPY [facility] EGD, FLEXIBLE, DIAGNOSTIC 12/13/2011 Hedrick's-repeat EGD 3 yrs/repeat EUS 3-6 monthsUPPER GI ENDOSCOPY DIAGNOSTIC performed by Luana Diaz DO at ENDOSCOPY [facility] EGD, FLEXIBLE, DIAGNOSTIC 06/06/2015 sm HH, Barretts, repeat 3 yrs/ESOPHAGOGASTRODUODENOSCOPY (EGD), FLEXIBLE, TRANSORAL, DIAGNOSTIC performed by Luana Callahan DO at ENDOSCOPY [facility] EGD, FLEXIBLE, DIAGNOSTIC 09/27/2018 mild inflammation on bx, repeat 3 yrs/ESOPHAGOGASTRODUODENOSCOPY (EGD), FLEXIBLE, TRANSORAL, DIAGNOSTIC performed by Luana Callahan DO at ENDOSCOPY [facility] EGD, FLEXIBLE, W/BIOPSY 12/11/2009 done bxs done barretts esophagus EGD, W/ENDOSCOPIC US 12/11/2009 done no cyst identified,multiple small stones and sludge in gallbladder pancreas without masses of ductal dilatation barretts esophagus with a small nodule bxs done EGD, W/ENDOSCOPIC US 04/03/2012 UPPER GI ENDOSCOPY ENDOSCOPIC ULTRASOUND performed by Luana Callahan DO at OR [facility] MICROSURGERY ADD-ON Right 06/24/2020 MICROSURGICAL SURGERY REQUIRING MICROSCOPE LISTED SEPARATELY performed by Madi Kaur, [facility] OR [facility] REMOVAL OF APPENDIX REMOVE CATARACT, INSERT LENS PROSTH Left 08/22/2019 REMOVE CATARACT, INSERT LENS PROSTH Right 09/05/2019 REMOVE SUPRATENTORIAL BRAIN TUMOR Right 06/24/2020 CRANIOTOMY BONE FLAP EXCISION BRAIN TUMOR SUPRATENTORIAL performed by Madi Kaur MD at OR [facility] REMOVE TONSILS & ADENOIDS, UNDER 12 T & A, age<12 REPAIR RUPTURED ROTATOR CUFF, CHRON 06/27/2013 right - Dr. Bryant STEREOTACTIC CRANIAL INTRADURAL NAVIGATION Right 06/24/2020 STEREOTACTIC CRANIAL INTRADURAL NAVIGATION performed by Madi Kaur MD at OR [facility] Review of patient's allergies indicates: Allergen Reactions Erythromycin GI upset Guaifenesin & Derivatives nucofed Review of Systems Constitutional: Positive for fatigue. Negative for appetite change and unexpected weight change. HENT: Negative for congestion, sore throat and trouble swallowing. Respiratory: Negative for cough, shortness of breath and wheezing. Cardiovascular: Negative for chest pain, palpitations and leg swelling. Gastrointestinal: Negative for abdominal pain, blood in stool, constipation, diarrhea, nausea and vomiting. Genitourinary: Positive for difficulty urinating and frequency. Negative for dysuria and hematuria. Musculoskeletal: Positive for back pain and gait problem. Neurological: Negative for dizziness, syncope and headaches. Psychiatric/Behavioral: Negative for confusion, decreased concentration and sleep disturbance. OBJECTIVE: BP 120/84 (BP Site: Left Arm, BP Position: Sitting, BP Cuff Size: Regular) | Pulse 89 | Temp 97.6 F (36.4 C) | Resp 14 | Ht 5' 6" (1.676 m) | Wt 193 lb 12.8 oz (87.9 kg) | SpO2 97% | BMI 31.28 kg/m | BSA 2.02 m Physical Exam Vitals and nursing note reviewed. Constitutional: General: He is not in acute distress. Appearance: He is not toxic-appearing. HENT: Head: Normocephalic [...] edema. Neurological: Mental Status: He is alert. Mental status is at baseline. Motor: Weakness present. Gait: Gait abnormal. Psychiatric: Mood and Affect: Mood normal. Behavior: Behavior normal. Results for orders placed or performed in visit on 03/20/24 CULTURE, URINE, QUANTITATIVE Specimen: Urine, Clean Catch Result Value Ref Range Culture Growth No significant growth URINALYSIS, REFLEX TO CULTURE (CUP ONLY) Result Value Ref Range Urinalysis, Reflex to Culture Specimen Specimen collected and received URINALYSIS, REFLEX TO CULTURE Result Value Ref Range Color, Urine Dark Yellow Colorless, Light Yellow, Yellow, Dark Yellow Clarity, Urine Cloudy (A) Clear Glucose, Urine 50 (A) Negative mg/dL Bilirubin, Urine Negative Negative Ketone, Urine Negative Negative mg/dL Specific [place], Urine 1.028 1.003 - 1.030 Blood, Urine Large (A) Negative pH, Urine 7.0 5.0 - 7.5 Units Protein, Urine >300 (A) Negative mg/dL Urobilinogen, Urine 2.0 (A) Normal mg/dL Nitrite, Urine Negative Negative Esterase, Urine Large (A) Negative RBC, Urine 50+ (A) 0 - 2 /HPF WBC, Urine 50+ (A) 0 - 2 /HPF Bacteria, Urine 0-25 0 - 25 /HPF Calcium Oxalate Crystal, Urine 10-19 (A) None /HPF Renal Epithelial Cells, Urine 5-9 (A) None /HPF WBC Clumps, Urine Present (A) None /HPF Culture, Urine COMPREHENSIVE METABOLIC PANEL Result Value Ref Range BUN 19 6 - 20 mg/dL CREATININE 0.8 0.6 - 1.2 mg/dL EGFR >90 >=60 mL/min SODIUM 137 135 - 146 mmol/L POTASSIUM 4.2 3.5 - 5.1 mmol/L CHLORIDE 101 98 - 107 mmol/L CO2 24 22 - 32 mmol/L ANION GAP 12 7 - 15 mmol/L GLUCOSE 198 (H) 70 - 120 mg/dL Albumin 3.6 (L) 3.8 - 5.0 g/dL AST 16 10 - 50 U/L Alkaline Phosphatase 142 (H) 35 - 130 U/L Bilirubin, Total 0.5 <=1.2 mg/dL CALCIUM 8.9 8.4 - 10.2 mg/dL Protein 6.0 6.0 - 8.3 g/dL ALT 15 10 - 50 U/L TSH WITH FREE T4 IF INDICATED Result Value Ref Range TSH 1.37 0.27 - 4.20 uIU/mL CBC Result Value Ref Range WBC 7.38 4.00 - 10.80 K/uL RBC 4.08 4.50 - 5.25 M/uL HGB 12.9 (L) 14.0 - 16.8 g/dL HCT 39.1 (L) 40.0 - 48.4 % MCV 95.8 82.0 - 99.5 fL MCH 31.6 27.0 - 34.0 pg MCHC 33.0 32.0 - 36.0 g/dL RDW 13.3 11.5 - 15.5 % PLT 225 140 - 400 K/uL MPV 10.8 6.6 - 11.1 fL nRBCs 0 <=0 /100 WBCs DIFFERENTIAL, AUTOMATED Result Value Ref Range WBC 7.38 4.00 - 10.80 K/uL Neutrophils % 65.6 40.0 - 75.0 % Lymphocytes % 20.1 18.0 - 42.0 % Monocytes % 10.7 1.0 - 11.0 % Eosinophils % 2.6 0.0 - 6.0 % Basophils % 0.5 0.0 - 2.0 % Immature Granulocytes % 0.5 0.0 - 2.0 % Absolute Neutrophils 4.84 1.80 - 7.70 K/uL Absolute Lymphocytes 1.48 1.00 - 4.80 K/ul Absolute Monocytes 0.79 0.00 - 1.10 K/uL Absolute Eosinophils 0.19 0.00 - 0.70 K/uL Absolute Basophils 0.04 0.00 - 0.20 K/uL Absolute Immature Granulocytes 0.04 0.00 - 0.20 K/uL *Note: Due to a large number of results and/or encounters for the requested time period, some results have not been displayed. A complete set of results can be found in Results Review. PLAN AND ASSESSMENT: Glioblastoma (HCC) (Primary) Continue to follow with medical Oncology for possible start of Chemotherapy Type 2 diabetes mellitus with hemoglobin A1c goal of less than 7.0% (HCC) Continue Lantus HTN, goal below 140/90 - COMPREHENSIVE METABOLIC PANEL; Future; Expected date: 03/20/2024 - TSH WITH FREE T4 IF INDICATED; Future; Expected date: 03/20/2024 - CBC WITH WBC DIFFERENTIAL; Future; Expected date: 03/20/2024 - COMPREHENSIVE METABOLIC PANEL - TSH WITH FREE T4 IF INDICATED - CBC WITH WBC DIFFERENTIAL Continue Carvedilol Dyslipidemia, goal LDL below 100 Continue Atorvastatin Localization-related epilepsy (HCC) Continue Levetiracetam 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 Continue FInasteride and Tamsulosin History of deep venous thrombosis (DVT) of distal vein of left lower extremity Continue Rivaroxaban [facility] (current) use of insulin (HCC) 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 History of urinary retention - URINALYSIS, REFLEX TO CULTURE (NOT FOR NEUTROPENIC PATIENTS); Future; Expected date: 03/20/2024 - URINALYSIS, REFLEX TO CULTURE (NOT FOR NEUTROPENIC PATIENTS) Decreased urine output - US RENAL; Future; Expected date: 03/20/2024 - URINALYSIS, REFLEX TO CULTURE (NOT FOR NEUTROPENIC PATIENTS); Future; Expected date: 03/20/2024 - URINALYSIS, REFLEX TO CULTURE (NOT FOR NEUTROPENIC PATIENTS) Current moderate episode of major depressive disorder without prior episode (HCC) Continue Sertraline Gastro-esophageal reflux disease without esophagitis Continue Pantoprazole Tremor Urinary frequency - CULTURE, URINE, QUANTITATIVE Follow Up: Return in about 2 weeks (around 04/03/2024), or if symptoms worsen or fail to improve. Apolinra Wayne DO 2:53 PM 03/22/2024 * Sadie Madera LPN - 03/20/2024 4:13 PM EST LAB DRAWN AND SENT TO [facility]. documented in this encounter Nursing Notes * Linda Castellanos CCMA - 03/20/2024 2:51 PM EST Chief Complaint Patient presents with Hospital Follow-Up Pt was admitted to the hospital - states that he is doing better, is walking. Memory is coming backslowly. Does have some questions or concerns. documented in this encounter Miscellaneous Notes * Result Encounter Note - Nelsy Almanzar LPN - 03/22/2024 8:29 AM EST MyG sent to patient. documented in this encounter Plan of Treatment Upcoming Encounters Date Type Department Care Team (Late st Contact Info) Description 03/27/2024 12:00 PM EST Scheduled Telephone Care Coordination and Integration [address] [facility] [place] [address] Mary Jane Valdez, [facility] [employer] [address] [place] [address] 03/27/2024 1:40 PM EST Office Visit Family Practice [address] [place] [address] [address] [place] [address] Apolianr Wayne, [address] [place] [address] 04/02/2024 12:30 PM EST Home Visit [facility] [address] [facility] [place] [address] Betzy Vega, HECTOR [address] [facility] [place] [address] 04/03/2024 9:30 AM EST Scheduled Telephone Care Coordination and Integration [address] [place] [address] Mary Jane Valdez, [facility] [employer] [address] [place] [address] 04/03/2024 3:40 PM EST Office Visit Family Practice [address] [place] [address], [place] [address] [place] [address] Apolinar Wayne DO [address] [place] [address] 04/13/2024 3:45 PM EST Pharmacy Pharmacy Hematology Oncology [facility] [address] [place] [address] [facility], [facility] Hem/Onc [address] [place] [address] 04/19/2024 10:30 AM EST Imaging Radiology [address] [facility] [place] [address] 04/26/2024 9:00 AM EST Office Visit Hematology/Oncology [facility] [address] [facility] [place] [id number] Fernando Solo MD [address] [facility] [place] [address] 05/21/2024 2:30 PM EST Office Visit Urology Garima Meyers [address] [place] [address] Michelle Rodriguez PA-C [address] [place] [address] Scheduled Procedures Name Priority Associated Diagnoses Date/Ti [...] this encounter Medical Devices Implanted Type Area Behavioral [employer] Instructor Device Identifier Shelf Expiration Date Model / Serial / Lot Graft Lyoplant 5.0x5.0cm 2x2 - [id number] Implanted:Qty : 1 on 06/24/2020 by Madi Kaur MD at OR [facility] Right: Head B ALICEA : AESCULAP 11/18/2024 [id number] / / [id number] Graft Lyoplant 5.0x5.0cm 2x2 - [id number] Implanted:Qty : 1 on 06/24/2020 by Madi Kaur MD at OR [facility] B ALICEA : AESCULAP [id number] 11/18/2024 [id number] / [id number] / [id number] Graft Lyoplant 5.0x5.0cm 2x2 - [id number] Implanted:Qty : 1 on 06/24/2020 by Madi Kaur MD at OR [facility] Right: Head B [employer]ICEA : AESCULAP 06/24/2020 [id number] / / [id number] Graft Lyoplant 5.0x5.0cm 2x2 - [id number] Implanted:Qty : 1 on 06/24/2020 by Madi Kaur MD at OR [facility] B ALICEA : AESCULAP [id number] 11/18/2024 [id number] / [id number] / [id number] Plate Ti Lo Pro Str 2h 421.502 - [id number] Implanted:Qty : 2 on 06/24/2020 by Madi Kaur MD at OR [facility] Right: Head SYNTHES MAXILLOFACIAL 421.502 / / Plate Bx Ti [id number] 4h 421.521 - [id number] Implanted:Qty : 1 on 06/24/2020 by Madi Kaur MD at OR [facility] Right: Head [employer]ES MAXILLOF[employer]IAL 421.521 / / Screw Ti Lo Pro Sd 4mm 400.834 - [id number] Implanted:Qty : 7 on 06/24/2020 by Madi Kaur MD at OR [facility] Right: Head [employer]ES [employer]ILL[employer] 400.834 / / documented as of this encounter Procedures Procedure Name Priority Date/Time Associated Diagnosis Comments DIFFERENTIAL, AUTOMATED Routine 03/20/2024 4:14 PM EST HTN, goal below 140/90 TSH WITH FREE T4 IF INDICATED Routine 03/20/2024 4:14 PM EST HTN, goal below 140/90 COMPREHENSIVE METABOLIC PANEL Routine 03/20/2024 4:14 PM EST HTN, goal below 140/90 CBC Routine 03/20/2024 4:14 PM EST HTN, goal below 140/90 CBC Routine 03/20/2024 4:14 PM EST HTN, goal below 140/90 URINALYSIS, REFLEX TO CULTURE Routine 03/20/2024 4:11 PM EST History of urinary retention Decreased urine output URINALYSIS, REFLEX TO CULTURE (CUP ONLY) Routine 03/20/2024 4:11 PM EST History of urinary retention Decreased urine output URINALYSIS, REFLEX TO CULTURE (NOT FOR NEUTROPENIC PATIENTS) Routine 03/20/2024 4:11 PM EST History of urinary retention Decreased urine output CULTURE, URINE, QUANTITATIVE Routine 03/20/2024 4:11 PM EST Urinary frequency documented in this encounter Results * US RENAL (03/22/2024 2:42 PM EST) Anatomical Region Laterality Modality Abdomen, Body Ultrasound 03/22/2024 3:12 PM EST Impressions 03/22/2024 3:10 PM EST IMPRESSION 1. No hydronephrosis. 2. Postvoid residual urinary bladder volume of 20.4 cc. (Please note that prevoid urinary bladder volume was only minimally greater at 20.9 cc). Narrative 03/22/2024 3:10 PM EST EXAM US RENAL-03/22/2024 2:42 pm HISTORY urinary retention TECHNIQUE Real time sonographic imaging. COMPARISON CT abdomen pelvis 06/09/2020. FINDINGS RIGHT KIDNEY: 10.8 cm x 4.1 cm x 4.9 cm. Normal size and echogenicity. No mass, shadowing calculi, or hydronephrosis. LEFT KIDNEY: 11.0 cm x 4.3 cm x 4.0 cm. Normal size and echogenicity. No mass, shadowing calculi, or hydronephrosis. BLADDER: Prevoid urinary bladder volume of 20.9 cc. Postvoid residual urinary bladder volume of 20.4 cc. No focal urinary bladder lesion is identified. AORTA: Visualized portions are normal in caliber. Procedure Note Celestino Riley MD - 03/22/2024 EXAM US RENAL-03/22/2024 2:42 pm HISTORY urinary retention TECHNIQUE Real time sonographic imaging. COMPARISON CT abdomen pelvis 06/09/2020. FINDINGS RIGHT KIDNEY: 10.8 cm x 4.1 cm x 4.9 cm. Normal size and echogenicity.No mass, shadowing calculi, or hydronephrosis. LEFT KIDNEY: 11.0 cm x 4.3 cm x 4.0 cm. Normal size and echogenicity. [place], shadowing calculi, or hydronephrosis. BLADDER: Prevoid urinary bladder volume of 20.9 cc. Postvoid residualurinary bladder volume of 20.4 cc. No focal urinary bladder lesion isidentified. AORTA: Visualized portions are normal in caliber. IMPRESSION IMPRESSION 1. No hydronephrosis. 2. Postvoid residual urinary bladder volume of 20.4 cc. (Please note thatprevoid urinary bladder volume was only minimally greater at 20.9 cc). Apolinar Wayne [facility] ULTRASOUND Final Result * DIFFERENTIAL, AUTOMATED (03/20/2024 4:14 PM EST) WBC 7.38 4.00 - 10.80 K/uL 03/20/2024 10:58 PM EST [facility] Neutrophils % 65.6 40.0 - 75.0 % 03/20/2024 10:58 PM EST [facility] Lymphocytes % 20.1 18.0 - 42.0 % 03/20/2024 10:58 PM EST [facility] Monocytes % 10.7 1.0 - 11.0 % 03/20/2024 10:58 PM EST [facility] Eosinophils % 2.6 0.0 - 6.0 % 03/20/2024 10:58 PM EST [facility] Basophils % 0.5 0.0 - 2.0 % 03/20/2024 10:58 PM EST [facility] Immature Granulocytes % 0.5 0.0 - 2.0 % 03/20/2024 10:58 PM EST [facility] Absolute Neutrophils 4.84 1.80 - 7.70 K/uL 03/20/2024 10:58 PM EST [facility] Absolute Lymphocytes 1.48 1.00 - 4.80 K/ul 03/20/2024 10:58 PM EST [facility] Absolute Monocytes 0.79 0.00 - 1.10 K/uL 03/20/2024 10:58 PM EST [facility] Absolute Eosinophils 0.19 0.00 - 0.70 K/uL 03/20/2024 10:58 PM EST [facility] Absolute Basophils 0.04 0.00 - 0.20 K/uL 03/20/2024 10:58 PM EST [facility] Absolute Immature Granulocytes 0.04 0.00 - 0.20 K/uL 03/20/2024 10:58 PM EST [facility] Blood Venous blood specimen / Unknown Venipuncture / Unknown 03/20/2024 4:14 PM EST 03/20/2024 4:14 PM EST us Apolinar Wayne DO LAB BLOOD ORDERABLES Final Res ult Performing Organization Address City/State/[facility] Co de Phone Number [facility] [address] [place] [address] * (ABNORMAL) CBC (03/20/2024 4:14 PM EST) WBC 7.38 4.00 - 10.80 K/uL 03/20/2024 10:58 PM EST [facility] RBC 4.08 4.50 - 5.25 M/uL 03/20/2024 10:58 PM EST [facility] HGB 12.9(L) 14.0 - 16.8 g/dL 03/20/2024 10:58 PM EST [facility] HCT 39.1(L) 40.0 - 48.4 % 03/20/2024 10:58 PM EST [facility] MCV 95.8 82.0 - 99.5 fL 03/20/2024 10:58 PM EST [facility] MCH 31.6 27.0 - 34.0 pg 03/20/2024 10:58 PM EST LABORATORY GM MCHC 33.0 32.0 - 36.0 g/dL 03/20/2024 10:58 PM EST [facility] RDW 13.3 11.5 - 15.5 % 03/20/2024 10:58 PM EST LABORATORY [facility] PLT 225 140 - 400 K/uL 03/20/2024 10:58 PM EST LABORATORY [facility] MPV 10.8 6.6 - 11.1 fL 03/20/2024 10:58 PM EST LABORATORY [facility] nRBCs 0 <=0 /100 WBCs 03/20/2024 10:58 PM EST LABORATORY [facility] Blood Venous blood specimen / Unknown Venipuncture / Unknown 03/20/2024 4:14 PM EST 03/20/2024 4:14 PM EST Apolinar Wayne DO LAB BLOOD ORDERABLES Final Res ult Performing Organization Address City/[facility] Co de Phone Number [facility] [address] [place] [address] * TSH WITH FREE T4 IF INDICATED (03/20/2024 4:14 PM EST) TSH 1.37 0.27 - 4.20 uIU/mL 03/20/2024 11:30 PM EST LAB[facility]ATORY [facility] Blood Venous blood specimen / Unknown Venipuncture / Unknown 03/20/2024 4:14 PM EST 03/20/2024 4:14 PM EST Apolinar Wayne DO LAB BLOOD ORDERABLES Final Res ult LABORATORY [facility] [address] [place] [address] * (ABNORMAL) COMPREHENSIVE METABOLIC PANEL (03/20/2024 4:14 PM EST) BUN 19 6 - 20 mg/dL 03/20/2024 11:00 PM EST LAB[facility]ATORY [facility] CREATININE 0.8 0.6 - 1.2 mg/dL 03/20/2024 11:00 PM EST LABORATORY GM EGFR >90 >=60 mL/min 03/20/2024 11:00 PM EST LAB[facility]ATORY [facility] Comment:eGFR is calculated b ased on the CKD-EPI 2020 equation. SODIUM 137 135 - 146 mmol/L 03/20/2024 11:00 PM EST LAB[facility]ORY [facility] POTASSIUM 4.2 3.5 - 5.1 mmol/L 03/20/2024 11:00 PM EST LAB[facility] CHLORIDE 101 98 - 107 mmol/L 03/20/2024 11:00 PM EST LAB[facility] CO2 24 22 - 32 mmol/L 03/20/2024 11:00 PM EST [facility] ANION GAP 12 7 - 15 mmol/L 03/20/2024 11:00 PM EST LAB[facility] GLUCOSE 198(H) 70 - 120 mg/dL 03/20/2024 11:00 PM EST LAB[facility]ORY [facility] Albumin 3.6(L) 3.8 - 5.0 g/dL 03/20/2024 11:00 PM EST LAB[facility]ORY [facility] AST 16 10 - 50 U/L 03/20/2024 11:00 PM EST LAB[facility]ORY [facility] Alkaline Phosphatase 142(H) 35 - 130 U/L 03/20/2024 11:00 PM EST LAB[facility] Bilirubin, Total 0.5 <=1.2 mg/dL 03/20/2024 11:00 PM EST [facility] CALCIUM 8.9 8.4 - 10.2 mg/dL 03/20/2024 11:00 PM EST [facility] Protein 6.0 6.0 - 8.3 g/dL 03/20/2024 11:00 PM EST [facility] ALT 15 10 - 50 U/L 03/20/2024 11:00 PM EST [facility] Blood Venous blood specimen / Unknown Venipuncture / Unknown 03/20/2024 4:14 PM EST 03/20/2024 4:14 PM EST us Apolinar Wayne DO LAB BLOOD ORDERABLES Final Res ult LAB[facility]ORY [facility] [address] [place] [address] * (ABNORMAL) URINALYSIS, REFLEX TO CULTURE (03/20/2024 4:11 PM EST) Color, Urine Dark Yellow Colorless, Light Yellow, Yellow, Dark Yellow 03/20/2024 11:50 PM EST [facility] Clarity, Urine Cloudy(A) Clear 03/20/2024 11:50 PM EST [facility] Glucose, Urine 50(A) Negative mg/dL 03/20/2024 11:50 PM EST LAB[facility] Bilirubin, Urine Negative Negative 03/20/2024 11:50 PM EST [facility] Ketone, Urine Negative Negative mg/dL 03/20/2024 11:50 PM EST LAB[facility]ORY [facility] Specific [place], Urine 1.028 1.003 - 1.030 03/20/2024 11:50 PM EST LAB[facility] Blood, Urine Large(A) Negative 03/20/2024 11:50 PM EST LAB[facility] pH, Urine 7.0 5.0 - 7.5 Units 03/20/2024 11:50 PM EST [facility] Protein, Urine >300(A) Negative mg/dL 03/20/2024 11:50 PM EST LABORATORY [facility] Urobilinogen, Urine 2.0(A) Normal mg/dL 03/20/2024 11:50 PM EST [facility] Nitrite, Urine Negative Negative 03/20/2024 11:50 PM EST [facility] Esterase, Urine Large(A) Negative 03/20/2024 11:50 PM EST LABORATORY GM RBC, Urine 50+(A) 0 - 2 /HPF 03/20/2024 11:50 PM EST [facility] WBC, Urine 50+(A) 0 - 2 /HPF 03/20/2024 11:50 PM EST LAB[facility] Bacteria, Urine 0-25 0 - 25 /HPF 03/20/2024 11:50 PM EST [facility] Calcium Oxalate Crystal, Urine 10-19(A) None /HPF 03/20/2024 11:50 PM EST LAB[facility] Renal Epithelial Cells, Urine 5-9(A) None /HPF 03/20/2024 11:50 PM EST LAB[facility] WBC Clumps, Urine Present(A) None /HPF 03/20/2024 11:50 PM EST [facility] Culture, Urine 03/20/2024 11:50 PM EST LAB[facility]ORY [facility] Comment:Quantitative urine c ulture to be performed Urine Urine specimen obtained by clean catch procedure / Unknown Non-blood Collection / Unknown 03/20/2024 4:11 PM EST 03/20/2024 4:11 PM EST Apolinar Wayne DO LAB URINE ORDERABLES Final Res ult Performing Organization Address City/[facility]/ZIP Co de Phone Number LABORATORY [facility] [address] [place] [address] * URINALYSIS, REFLEX TO CULTURE (CUP ONLY) (03/20/2024 4:11 PM EST) Urinalysis, Reflex to Culture Specimen Specimen collected and received 03/20/2024 6:01 PM EST LABORATORY [facility] Urine Urine specimen obtained by clean catch procedure / Unknown Non-blood Collection / Unknown 03/20/2024 4:11 PM EST 03/20/2024 4:11 PM EST Apolinar Wayne DO LAB URINE ORDERABLES Final Res ult Performing Organization Address [facility] Co de Phone Number LABORATORY [facility] [address] [place] [address] * CULTURE, URINE, QUANTITATIVE (03/20/2024 4:11 PM EST) Culture Growth No significant growth 03/21/2024 7:07 PM EST LABORATORY [facility] Urine Urine specimen obtained by clean catch procedure / Unknown Non-blood Collection / Unknown 03/20/2024 4:11 PM EST 03/20/2024 4:11 PM EST Apolinar Wayne DO LAB MICRO - GENERAL ORDERABLES Final Result Performing Organization Address [facility] Co de Phone Number LABORATORY [facility] [address] [place] [address] documented in this encounter Visit Diagnoses Diagnosis Glioblastoma (HCC)- Primary Malignant neoplasm of brain, unspecified site Type 2 diabetes mellitus with hemoglobin A1c goal of less than 7.0% (HCC) HTN, goal below 140/90 Unspecified essential hypertension Dyslipidemia, goal LDL below 100 Other and unspecified hyperlipidemia Localization-related epilepsy (HCC) Localization-related (focal) (partial) epilepsy and epileptic syndromes with simple partial seizures, without mention of intractable epilepsy 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 Hypertrophy of prostate with urinary obstruction and other lower urinary tract symptoms (LUTS) History of deep venous thrombosis (DVT) of distal vein of left lower extremity 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) 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 Persistent disorder of initiating or maintaining sleep History of urinary retention Personal history of other disorder of urinary system Decreased urine output Current moderate episode of major depressive disorder without prior episode (HCC) Gastro-esophageal reflux disease without esophagitis Esophageal reflux Tremor Abnormal involuntary movements Urinary frequency Decreased urine output documented in this encounter Advance Directives * [...] Agents on File Name Relationship Healthcare Agent [facility] Communication Aimee Lam Spouse Health Care Agent Care Teams Box Loader Relationship Specialty Start Date End Date Apolinar Wayne DO [address] [place] [address] PCP - General Internal Medicine 11/15/23 documented as of this encounter
--- OUTSIDE RECORDS SUMMARY | 2024-04-10 19:11 | External Medical Summary | Summary of Care ---
Author Name Unknown Organization [facility] Address [address] [place] [address] Phone [phone] Care Team Providers Care Special Events Driver Name Role Phone Apolinar Wayne DO Primary Care Provider [phone] Reason for Visit * Reason Onset Date Comments Patient Assistance Program 02/29/2024 31 Giulia Roque Encounter Details Date Type Department Care Team (Late st Contact Info) Description 02/29/2024 Telephone Pharmacy Hematology Oncology [facility] [place] [address] [place] [address] Tiffanie Disla, [facility] [address] [place] [address] Patient Assistance Program (31 Krys Bermudez... Allergies Active Allergy Reactions Criticality Noted Date Comments Erythromycin 07/02/1998 GI upset Guaifenesin & Derivatives 03/18/1997 nucofed documented as of this encounter (statuses as of 03/20/2024) Medications BD Pen Needle Altagracia U/F 32G X 4 MM (Insulin Pen Needle) Use to inject insulin 4 times a day 200 Each 3 07/05/19 21 Active SURGICAL COMPRESSION STOCKING 20 to 30mm knee high. 2 Each 6 11/05/19 Active B Complex (Folic Acid) Oral TabletIndications [...] of less than 7.0% ([facility]) Use as directed every 14 days . [...] BY MOUTH EVERY DAY 100 Tablet 3 4 11:42 AM EDT 05/29/19 24 025 Active Finasteride 5 MG Oral Tablet (Proscar) TAKE ONE TABLET BY MOUTH EVERY DAY IN THE MORNING 100 Tablet 1 4 1:19 PM EDT 09/12/19 24 025 Active Additional Information Patient taking differently: QHS, Reported on 03/09/2024 Tamsulosin HCl 0.4 MG Oral Capsule (Flomax) [...] Oral Tablet Take by mouth. Act jessica Empagliflozin 25 MG Oral Tablet (Jardiance)Indica tions:Type 2 diabetes mellitus with hemoglobin A1c goal of less than 7.0% ([facility]) Take 1 Tablet by mouth in the morning. (From the AR). 90 Tablet 3 05/05/19 24 024 Discontinu ed(Medicat ion List Clean Up) Divalproex Sodium 250 MG Oral Tablet Delayed [...] Clean Up) LORazepam 0.5 MG Oral Tablet (Ativan)Indicatio ns:Anxiety [...] Up) Docusate Sodium 50 MG Oral Capsule (Colace)Indicatio [...] as of this encounter (statuses as of 03/20/2024) Active Problems Problem Noted Date Diagnosed Date PTSD (post-traumatic stress disorder) 06/11/2022 Current moderate episode of major depressive disorder without prior episode 04/15/2021 Gastro-esophageal reflux disease without esophag itis 04/15/2021 Localization-related epilepsy 11/13/2020 Encounter for antineoplastic chemotherapy 2020 Claustrophobia 08/21/2020 Glioblastoma 06/29/2020 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 Pulmonary hypertension 10/10/2018 Diabetes 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 06/27/2018 terminal 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 insulin 10/27/2017 History of [...] as of this encounter (statuses as of 03/20/2024) Resolved Problems Problem Noted Date Diagnosed Date [...] as of this encounter (statuses as of 03/20/2024) Immunizations Name Administration Dates Next Due COVID-19 mRNA, LNP-s, No Pre serve, 2-Dose Series ([employer]) 03/10/2021,06/07/2020,05/17/2020 COVID-19, LNP-s, No Preserve , Chandler-sucrose, Ages 12+ (Pfizer) 11/17/2021 COVID-19, MRNA-LNP, PF, 30 M CG/0.3 mL, 12 YRS AND ABOVE, IM (MediBeacon-Comirnaty) 01/17/2024,03/08/2023 Covid-19, Mrna, Lnp-s, Pf, B ivalent, 30 Mcg, IM, 12 yrs and above ([employer]Web) 04/13/2022 H1N1 2009 Influenza, IM 12/10/2019,04/01/2009 Pneumococcal [...] again she will email back with income [employer]. Applications mailed: : YES Follow up: 2-4 days Krys Staley Medication Youth Development Specialist 03/20/24.10:50 AM * Telephone Encounter - Krys Staley OSA - 03/13/2024 1:36 PM EST Patient Assistance Name of Medication: GLEOSTINE 100 MG CAPSULE Was patient spoken to: : NO Type of assistance: received information from [facility] that patient would be taking gleostine, called patients to advise and follow up on pharmacy [facility] shwetha and income docs no answer left message. Applications mailed: : No Follow up: 1 week Krys Staley Medication Youth Development Specialist 03/13/2024.1:36 PM * Telephone Encounter - [...] Follow up: 2-4 days Krys Staley Medication Youth Development Specialist 03/09/2024.2:38 PM * Telephone Encounter - Krys Staley OSA - 03/07/2024 11:08 AM EST Patient Assistance Name of Medication: GLEOSTINE 100 MG CAPSULE Was patient spoken to: : NO Type of assistance: no foundations open at this time,pace does not cover drug, spoke with patients she stated they should be within the income for Pharmacy [facility], emailed application to [email or web address] she will send back with income documents once received will send for review. Applications mailed: : No Follow up: 2-4 days Krys Staley Medication Youth Development Specialist 03/07/2024.11:09 AM * Telephone Encounter - Krys Staley OSA - 03/05/2024 8:32 AM EST Patient Assistance Name of Medication: GLEOSTINE 100 MG CAPSULE Was patient spoken to: : NO Type of assistance: no foundations open at this time,pace does not cover drug, can apply for pharmacy [facility] or [facility] if patient is within income due to was not denied or excluded patienthas Medicare. - Called second attempt need patients income documents no answer unable to leave a message. call. Applications mailed: : No Follow up: 2-4 days Krys Staley Medication Youth Development Specialist 03/05/24.8:32 AM * Telephone Encounter - [...] for those we than can apply for [facility]. Either way we need copies of patient income docs to send to assistance programs called patient no answer , left message to return my call. Applications mailed: : No Follow up: 2-4 days Krys Staley Medication Youth Development Specialist 03/01/24.3:45 PM * Telephone Encounter - Tiffanie Disla RPh - 02/29/2024 10:22 AM EST Hello, Patient to see Dr Solo in 1-2 weeks with tentative plan to start lomustine after visit. I see prior to patient's surgery he was working with [facility] for assistance and was also willing to payout of pocket for first fill. Can we please re-visit assistance so we have in place prior to needing to start? Please have him apply to [employer] [facility] assistance. Thanks! Celina MatiasD Ambulatory Clinical Pharmacist | Oral Chemotherapy Clinic [facility] [address] 02/29/2024, 10:23 AM documented in this encounter Plan of Treatment Upcoming Encounters Date Type Department Care Team (Late st Contact Info) Description 03/20/2024 2:00 PM EST Pharmacy Family Practice [address] [facility] [address] [facility] [address] [facility], Pharmacist [address] [address] 03/20/2024 2:15 PM EST Scheduled Telephone Care Coordination and Integration [address] [place] [address] Mary Jane Valdez, Community Health Application Support Administrator [address] [place] [address] 03/20/2024 2:20 PM EST Office Visit Family Practice [address] [place] [address] [address] [place] [address] Apolinar Wayne, DO [address] [place] [address] 03/27/2024 12:00 PM EST Scheduled Telephone Care Coordination and Integration [address] [place] [address] Mary Jane Valdez, Community Health Application Support Administrator [address] [place] [address] 03/27/2024 1:40 PM EST Office Visit Family Practice [address] [place] [address] [address] [place] [address] Apolinar Wayne, DO [address] [place] [address] 04/02/2024 12:30 PM EST [facility] [address] [place] [address] Betzy Vega RN [address] [place] [address] 04/03/2024 9:30 AM EST Scheduled Telephone Care Coordination and Integration [address] [place] [address] Mary Jane Valdez, Community Health Application Support Administrator [address] [place] [address] 04/13/2024 3:45 PM EST Pharmacy Pharmacy Hematology Oncology [facility] [address] [place] [address] [facility] Hem/Onc [address] [place] [address] 05/21/2024 2:30 PM EST Office Visit Urology Garima Meyers [address] [place] [address] [place] [address] Michelle Rodriguez PA-C [address] [place] [address] Scheduled Procedures Name Priority Associated Diagnoses Date/Ti [...] 024, 12/14/2022, 02/17/2022, Additional history exists GFR 02/28/2025 02/29/2024, 01/20, 02/14/2024, Additional history exists Depression Monitoring 03/06/2025 03/06/2024 DTap/Tdap Vaccines (5 - Td or Tdap) [...] this encounter Medical Devices Implanted Type Area Fashion Editor Device Identifier Shelf Expiration Date Model / Serial / Lot Graft Lyoplant 5.0x5.0cm 2x2 - [id number] Implanted:Qty : 1 on 06/24/2020 by Madi Kaur MD at OR [facility] Right: Head B ALICEA : AUTUMNCULAP 11/18/2024 [id number] / / [id number] Graft Lyoplant 5.0x5.0cm 2x2 - [id number] Implanted:Qty : 1 on 06/24/2020 by Madi Kaur MD at OR [facility] B ALICEA : AUTUMNCULAP [id number] 11/18/2024 [id number] / [id number] / [id number] Graft Lyoplant 5.0x5.0cm 2x2 - [id number] Implanted:Qty : 1 on 06/24/2020 by Madi Kaur MD at OR [facility] Right: Head B ALICEA : AESCULAP 06/24/2020 [id number] / / [id number] Graft Lyoplant 5.0x5.0cm 2x2 - [id number] Implanted:Qty : 1 on 06/24/2020 by Madi Kaur MD at OR [facility] B ALICEA : AESCULAP [id number] 11/18/2024 [id number] / [id number] / [id number] Plate Ti Lo Pro Str 2h 421.502 - [id number] Implanted:Qty : 2 on 06/24/2020 by Madi Kaur MD at OR [facility] Right: Head SYNTHES MAXILLOFACIAL 421.502 / / Plate Bx Ti [id number] 4h 421.521 - [id number] Implanted:Qty : 1 on 06/24/2020 by Madi Kaur MD at OR [facility] Right: Head SYNTHES MAXILLOFACIAL 421.521 / / Screw Ti Lo Pro Sd 4mm 400.834 - [id number] Implanted:Qty : 7 on 06/24/2020 by Madi [...] Lam Spouse Health Care Agent Care Teams Special Events Driver Relationship Specialty Start Date End Date Apolinar Wayne DO [address] [facility] [place] [address] PCP - General Internal Medicine 11/15/23 documented as of this encounter"
--- OUTSIDE RECORDS SUMMARY | 2024-04-10 19:11 | External Medical Summary ---
Author Name Unknown Address Unknown Organization K01:LABORATORY [facility] [place] - [address] [facility] [place] [address] Laboratory Report Ordering Provider Test Date Status NEREYDA GEORGES 03/20/2024 16:14:29 Final Observation Date Value Abnormality Reference (Units ) Status BUN 03/20/2024 16:14:29 19 6-20 (mg/dL) Final Creatinine 03/20/2024 16:14:29 0.8 0.6-1.2 (mg/dL) Final Glomerular filtration rate/1.73 sq M.predicted [Volume Rate/Area] in Serum, Plasma or Blood by Creatinine-based formula (CKD-EPI) 03/20/2024 16:14:29 >90 >=60 (mL/min) Final eGFR is calculated based on the CKD-EPI 2020 equation. Sodium 03/20/2024 16:14:29 137 135-146 (m mol/L) Final Potassium 03/20/2024 16:14:29 4.2 3.5-5.1 (m mol/L) Final Cl 03/20/2024 16:14:29 101 98-107 (mm ol/L) Final CO2 03/20/2024 16:14:29 24 22-32 (mmo l/L) Final Anion gap 03/20/2024 16:14:29 12 7-15 (mmol /L) Final Glucose 03/20/2024 16:14:29 198 Above high normal 70 -120 (mg/dL) Final Albumin 03/20/2024 16:14:29 3.6 Below low normal 3.8 -5.0 (g/dL) Final AST (Aspartate aminotransferase) 03/20/2024 16:14:29 16 10-50 (U/L) Fin al Alk Phos 03/20/2024 16:14:29 142 Above high normal 35 -130 (U/L) Final Bilirubin, Total 03/20/2024 16:14:29 0.5 <=1 .2 (mg/dL) Final Calcium 03/20/2024 16:14:29 8.9 8.4-10.2 ( mg/dL) Final Protein 03/20/2024 16:14:29 6.0 6.0-8.3 (g /dL) Final ALT (Alanine aminotransferase) 03/20/2024 16:14:29 15 10-50 (U/L) Sami ugalde Performing Location LABORATORY [facility] - [address] [facility] [address]
--- OUTSIDE RECORDS SUMMARY | 2024-04-10 19:11 | External Medical Summary ---
Author Name Unknown Address Unknown Organization K01:LABORATORY [facility] [place] - [address] [place] [address] Laboratory Report Ordering Provider Test Date Status NEREYDA GEORGES 03/20/2024 16:14:29 Final Observation Date Value Abnormality Reference (Units ) Status WBC, Total 03/20/2024 16:14:29 7.38 4.00-10.80 (K/uL) Final RBC 03/20/2024 16:14:29 4.08 4.50-5.25 (M/uL) Final Hemoglobin 03/20/2024 16:14:29 12.9 Below low normal 14.0-16.8 (g/dL) Final HCT 03/20/2024 16:14:29 39.1 Below low normal 40.0-48.4 (%) Final MCV 03/20/2024 16:14:29 95.8 82.0-99.5 (fL) Final MCH 03/20/2024 16:14:29 31.6 27.0-34.0 (pg) Final MCHC 03/20/2024 16:14:29 33.0 32.0-36.0 (g/dL) Final RDW 03/20/2024 16:14:29 13.3 11.5-15.5 (%) Final Platelets 03/20/2024 16:14:29 225 140-400 (K/uL) Final MPV 03/20/2024 16:14:29 10.8 6.6-11.1 (fL) Final Nucleated erythrocytes/100 leukocytes [Ratio] in Blood by Automated count 03/20/2024 16:14:29 0 <=0 (/100 WBCs) Final Performing Location LABORATORY [facility] - [address] [place] [address]
--- OUTSIDE RECORDS SUMMARY | 2024-04-10 19:11 | External Medical Summary | Summary of Care ---
Author Name Unknown Organization [facility] Address [address] [place] [address] Phone [phone] Care Team Providers Care Dip Stand Loader Name Role Phone Apolinar Wayne DO Primary Care Provider [phone] Encounter Details Date Type Department Care Team (Late st Contact Info) Description 03/19/2024 Telephone Pharmacy Hematology Oncology [facility], [place] [address] [place] [address] Tiffanie Disla, [facility] [address] [place] [facility] [place] [address] Allergies Active Allergy Reactions Criticality Noted Date Comments Erythromycin 07/02/1998 GI upset Guaifenesin & Derivatives 03/18/1997 nucofed documented as of this encounter (statuses as of 03/19/2024) Medications BD Pen Needle Altagracia U/F 32G [...] A1c goal of less than 7.0% ([facility]) Use as directed every 14 days . [...] Tablet 3 01/17/2024 9:59 AM EDT 01/16/20 Active levETIRAcetam 750 MG Oral Tablet take [...] Oral Tablet Take by mouth. Act jessica LORazepam 0.5 MG Oral Tablet (Ativan)Indicatio ns:Anxiety Take 1 Tablet by mouth 3 times a day as needed for Anxiety. 60 Tablet 03/12/20 24 Active documented as of this encounter (statuses as of 03/19/2024) Active Problems Problem Noted Date Diagnosed Date [...] as of this encounter (statuses as of 03/19/2024) Resolved Problems Problem Noted Date Diagnosed Date [...] as of this encounter (statuses as of 03/19/2024) Immunizations Name Administration Dates Next Due COVID-19 mRNA, LNP-s, No Pre serve, 2-Dose Series ([employer]) 03/10/2021,06/07/2020,05/17/2020 COVID-19, LNP-s, No Preserve , Chandler-sucrose, Ages 12+ (Pfizer) 11/17/2021 COVID-19, MRNA-LNP, PF, 30 M CG/0.3 mL, 12 YRS AND ABOVE, IM (CELtrak-Comirnaty) 01/17/2024,03/08/2023 Covid-19, Mrna, Lnp-s, Pf, B ivalent, 30 Mcg, IM, 12 yrs and above ([employer]) 04/13/2022 H1N1 2009 Influenza, IM 12/10/2019,04/01/2009 Pneumococcal [...] Author No 06/29/2020 5:01 AM Sa valentine Mores RN documented in this encounter Miscellaneous Notes * Telephone Encounter - Krys Staley OSA - 03/19/2024 10:38 AM EST Patient Assistance Name of Medication: GLEOSTINE 100 MG CAPSULE Was patient spoken to: : NO Type of assistance: received information from [facility] that patient would be taking gleostine, called patients to advise and follow up on pharmacy sloan shwetha and income docs no answer left message. Applications mailed: : No Follow up: 1 week Krys Staley Medication Upkeep Worker 03/13/2024.1:36 PM Close * Telephone Encounter - Tiffanie Disla RPh - 03/19/2024 10:00 AM EST Message received from provider/nurse that patient wishes to start lomustine. Please follow up with patient and regarding assistance Tiffanie Disla PharmD Ambulatory Clinical Pharmacist | Oral Chemotherapy Clinic [facility] 03/19/2024, 10:03 AM documented in this encounter Plan of Treatment Upcoming Encounters Date Type Department Care Team (Late st Contact Info) Description 03/19/2024 3:40 PM EST Pharmacy Family Practice [address] [facility] [address] [place] [address] College, Pharmacist [address] [place] [address] 03/19/2024 4:00 PM EST Office Visit Family Practice [address] [facility] [address] [place] [address] Apolinar Wayne, [address] [place] [address] 03/20/2024 2:15 PM EST Scheduled Telephone Care Coordination and Integration [address] [place] [address] Mary Jane Valdez, Community Health Race Relations Professor [address] [place] [address] 03/27/2024 12:00 PM EST Scheduled Telephone Care Coordination and Integration [address] [place] [address] Mary Jane Valdez, Community Health Race Relations Professor [address] [place] [address] 03/27/2024 1:40 PM EST Office Visit Family Practice 65 [facility] [address] [place] [address] Apolinar Wayne, 293 [facility] [place] [address] 04/02/2024 12:30 PM EST Home Visit [facility], [facility] [address] [facility] [place] [address] Betzy Vega, RN [address] [place] [address] 04/03/2024 9:30 AM EST Scheduled Telephone Care Coordination and Integration [address] [place] [address] Mary Jane Valdez, Community Health Race Relations Professor [address] [place] [address] 04/13/2024 3:45 PM EST Pharmacy Pharmacy Hematology Oncology [facility] [address] [place] [address] [facility], [facility] Hem/Onc [address] [place] [address] 05/21/2024 2:30 PM EST Office Visit Urology Garima Meyers [address] [place] [address] Michelle Rodriguez PA-C [address] [place] [address] Scheduled Procedures Name Priority Associated Diagnoses Date/Ti [...] this encounter Medical Devices Implanted Type Area Director Channel Device Identifier Shelf Expiration Date Model / Serial / Lot Graft Lyoplant 5.0x5.0cm 2x2 - [id number] Implanted:Qty : 1 on 06/24/2020 by Madi Kaur MD at OR [facility] Right: Head B ALICEA : AESCULAP 11/18/2024 [id number] / / [id number] Graft Lyoplant 5.0x5.0cm 2x2 - [id number] Implanted:Qty : 1 on 06/24/2020 by Madi Kaur MD at OR [facility] B ALICEA : AESCULAP [id number] 11/18/2024 [id number] / [id number] / [id number] Graft Lyoplant 5.0x5.0cm 2x2 - [id number] Implanted:Qty : 1 on 06/24/2020 by Madi Kaur MD at OR [facility] Right: Head B ALICEA : AESCULAP 06/24/2020 [id number] / / [id number] Graft Lyoplant 5.0x5.0cm 2x2 - [id number] Implanted:Qty : 1 on 06/24/2020 by Madi Kaur MD at OR [facility] B ALICEA : AESCULAP [id number] 11/18/2024 [id number] / [id number] / [id number] Plate Ti Lo Pro Str 2h 421.502 - [id number] Implanted:Qty : 2 on 06/24/2020 by Madi Kaur MD at OR [facility] Right: Head SYNTHES MAXILLOFACIAL 421.502 / / Plate Bx Ti [id number] 4h 421.521 - [id number] Implanted:Qty : 1 on 06/24/2020 by Madi Kaur MD at OR [facility] Right: Head SYNTHES MAXILLOFACIAL 421.521 / / Screw Ti Lo Pro Sd 4mm 400.834 - [id number] Implanted:Qty : 7 on 06/24/2020 by Madi Kaur MD at OR [facility] Right: Head SYNTHES MAXILLOFACIAL 400.834 [...] Lam Spouse Health Care Agent Care Teams Dip Stand Loader Relationship Specialty Start Date End Date Apolinar Wayne DO [address] [place] [address] PCP - General Internal Medicine 11/15/23 documented as of this encounter"
--- OUTSIDE RECORDS SUMMARY | 2024-04-10 19:11 | External Medical Summary | Summary of Care ---
Author Name Unknown Organization [facility] Address [address] [place] [address] Phone [phone] Care Team Providers Care Composition Floor Setter Name Role Phone Apolinar Wayne DO Primary Care Provider [phone] Reason for Visit * Reason Onset Date Comments FYI 03/20/2024 Encounter Details Date Type Department Care Team (Late st Contact Info) Description 03/20/2024 Telephone Family Practice [address], [place] [address] [place] [address] Apolinar Wayne DO [address] [place], [place] [id number] FYI Allergies Active Allergy Reactions Criticality Noted [...] hemoglobin A1c goal of less than 7.0% ([facility]) Use as directed every 14 [...] 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 06/27/2018 long-term (current) use of insulin 10/27/2017 History of [...] mRNA, LNP-s, No Pre serve, 2-Dose Series ([employer]) 03/10/2021,06/07/2020,05/17/2020 COVID-19, LNP-s, No Preserve , Chandler-sucrose, Ages 12+ (Pfizer) 11/17/2021 COVID-19, MRNA-LNP, PF, 30 M CG/0.3 mL, 12 YRS AND ABOVE, IM (PFIZER-Comirnaty) 01/17/2024,03/08/2023 Covid-19, Mrna, Lnp-s, Pf, B ivalent, 30 Mcg, IM, 12 yrs and above ([employer]) 04/13/2022 H1N1 2009 Influenza, IM 12/10/2019,04/01/2009 Pneumococcal [...] Telephone Encounter - Apolinar Wayne DO - 03/20/2024 4:24 PM EST Patient can have PT evaluation next week. * Telephone Encounter - Sadie Madera LPN - 03/20/2024 4:21 PM EST Fyi, acceptable? * Telephone Encounter - Kendra Kramer OSA - 03/20/2024 3:43 PM EST Enrico SALINAS from [facility] called He states he went to patient house to do evaluation and refused it for today She asked if he can come out next week. He will call and set up appt for early next week Any questions Enrico [phone] documented in this encounter Plan of Treatment Upcoming Encounters Date Type Department Care Team (Late st Contact Info) Description 03/22/2024 2:00 PM EST Imaging Radiology [facility] [place] [address] [place] [address] 03/27/2024 12:00 PM EST Scheduled Telephone Care Coordination and Integration [address] [place] [address] Mary Jane Valdez, Community Health Daily Sales Audit Clerk [address] [place] [address] 03/27/2024 1:40 PM EST Office Visit Family Practice [address] [place] [address] [address] [place] [address] Apolinar Wayne, [address] [place] [address] 04/02/2024 12:30 PM EST Home Visit [facility] [address] [place] [address] Betzy Vega RN [address] [place] [address] 04/03/2024 9:30 AM EST Scheduled Telephone Care Coordination and Integration [address] [place] [address] Mary Jane Valdez, Community Health Daily Sales Audit Clerk [address] [place] [address] 04/03/2024 3:40 PM EST Office Visit Family Practice [address] [place] [address] [address] [place] [address] Apolinar Wayne, [address] [place] [address] 04/13/2024 3:45 PM EST Pharmacy Pharmacy Hematology Oncology [facility] [address] [place] [address] [facility] Hem/Onc [address] [place] [address] 04/19/2024 10:30 AM EST Imaging Radiology [facility]st [facility] [address] [place] [address] 04/26/2024 9:00 AM EST Office Visit Hematology/Oncology [facility] [address] [place] [address] Fernando Solo MD [address] [place] [address] 05/21/2024 2:30 PM EST Office Visit Urology Garima Meyers [address] [place] [address] Michelle Rodriguez PA-C [address] [place] [address] Scheduled Procedures Name Priority Associated Diagnoses Date/Ti [...] this encounter Medical Devices Implanted Type Area Casting And Pasting Supervisor Device Identifier Shelf Expiration Date Model / Serial / Lot Graft Lyoplant 5.0x5.0cm 2x2 - [id number] Implanted:Qty : 1 on 06/24/2020 by Madi Kaur MD at OR [facility] Right: Head Lara ALICEA : ARIAN 11/18/2024 [id number] / / [id number] Graft Lyoplant 5.0x5.0cm 2x2 - [id number] Implanted:Qty : 1 on 06/24/2020 by Madi Kaur MD at OR [facility] Lara ALICEA : ARIAN [id number] 11/18/2024 [id number] / [id number] / [id number] Graft Lyoplant 5.0x5.0cm 2x2 - [id number] Implanted:Qty : 1 on 06/24/2020 by Madi Kaur MD at OR [facility] Right: Head B ALICEA : AESCULAP 06/24/2020 [id number] / / [id number] Graft Lyoplant 5.0x5.0cm 2x2 - [id number] Implanted:Qty : 1 on 06/24/2020 by Madi Kaur MD at OR [facility] [place] B ALICEA : AESCULAP [id number] 11/18/2024 [id number] / [id number] / [id number] Plate Ti Lo Pro Str 2h 421.502 - [id number] Implanted:Qty : 2 on 06/24/2020 by Madi Kaur MD at OR [facility] Right: Head SYNTHES MAXILLOFACIAL 421.502 / / Plate Bx Ti [id number] 4h 421.521 - [id number] Implanted:Qty : 1 on 06/24/2020 by Madi Kaur MD at OR [facility] [place] Right: Head SYNTHES MAXILLOFACIAL 421.521 / / Screw Ti Lo Pro Sd 4mm 400.834 - [id number] Implanted:Qty : 7 on 06/24/2020 by Madi Kaur MD at OR [facility] Right: Head SYNTHES MAXILLOFACIAL [...] Agents on File Name Relationship Healthcare Agent Gelaga marcos Communication Aimee Lam Spouse Health Care Agent Care Teams Composition Floor Setter Relationship Specialty Start Date End Date Apolinar Wayne DO [address] [facility] [place] [address] PCP - General Internal Medicine 11/15/23 documented as of this encounter
--- OUTSIDE RECORDS SUMMARY | 2024-04-10 19:11 | External Medical Summary ---
Author Name Unknown Address Unknown Organization K01:LABORATORY [facility] [place] - [address] [place] [address] Laboratory Report Ordering Provider Test Date Status NEREYDA GEORGES 03/20/2024 16:14:29 Final Observation Date Value Abnormality Reference (Units ) Status TSH 03/20/2024 16:14:29 1.37 0.27-4.20 (uIU/mL) Final Performing Location LABORATORY C - [address] [place] [address]
--- OUTSIDE RECORDS SUMMARY | 2024-04-10 19:11 | External Medical Summary ---
Author Name Unknown Address Unknown Organization K01:LABORATORY [facility] - [address] [facility] [place] [address] Laboratory Report Ordering Provider Test Date Status NEREYDA GEORGES 03/20/2024 16:11:12 Final Observation Date Value Abnormality Reference (Units ) Status Color of Urine by Auto 03/20/2024 16:11:12 Dark Yellow Colorless, Light Yellow, Yellow, Dark Yellow Final Clarity, Urine 03/20/2024 16:11:12 Cloudy Abnormal Clear Final Glucose [Mass/volume] in Urine by Automated test strip 03/20/2024 16:11:12 50 Abnormal Negative (mg/dL) Final Bilirubin.total [Presence] in Urine by Automated test strip 03/20/2024 16:11:12 Negative Negative Final Ketones [Mass/volume] in Urine by Automated test strip 03/20/2024 16:11:12 Negative Negative (mg/dL) Final Specific gravity, Urine 03/20/2024 16:11:12 1.028 1.003-1.030 Final Hemoglobin [Presence] in Urine by Automated test strip 03/20/2024 16:11:12 Large Abnormal Negative Final pH, Urine 03/20/2024 16:11:12 7.0 5.0-7.5 (Units) Final Protein [Mass/volume] in Urine by Automated test strip 03/20/2024 16:11:12 >300 Abnormal Negative (mg/dL) Final Urobilinogen [Mass/volume] in Urine by Automated test strip 03/20/2024 16:11:12 2.0 Abnormal Normal (mg/dL) Final Nitrite [Presence] in Urine by Automated test strip 03/20/2024 16:11:12 Negative Negative Final Leukocyte esterase [Presence] in Urine by Automated test strip 03/20/2024 16:11:12 Large Abnormal Negative Final RBC, Urine 03/20/2024 16:11:12 50+ Abnormal 0-2 (/HPF) Final WBC, Urine 03/20/2024 16:11:12 50+ Abnormal 0-2 (/HPF) Final Bacteria [#/area] in Urine sediment by Microscopy high power field 03/20/2024 16:11:12 0-25 0-25 (/HPF) Final Calcium oxalate crystals [#/area] in Urine sediment by Microscopy high power field 03/20/2024 16:11:12 10-19 Abnormal None (/HPF) Final Epithelial cells.renal [#/area] in Urine sediment by Microscopy high power field 03/20/2024 16:11:12 5-9 Abnormal None (/HPF) Final Leukocyte clumps [#/area] in Urine sediment by Microscopy high power field 03/20/2024 16:11:12 Present Abnormal None (/HPF) Final [facility] 03/20/2024 16:11:12 Final Quantitative urine culture t o be performed Performing Location LABORATORY [facility] - [address] [facility] [address]
--- OUTSIDE RECORDS SUMMARY | 2024-04-10 19:11 | External Medical Summary | Summary of Care ---
Author Name Unknown Organization [facility] Address [address] [place] [address] Phone [phone] Care Team Providers Care Clinical Ob Name Role Phone Apolinar Wayne DO Primary Care Provider [phone] Reason for Visit * Reason Comments Dosage Adjustment In Person (Anticoag Cl inic) Diabetes Follow-Up Encounter Details Date Type Department Care Team (Late st Contact Info) Description 03/20/2024 3:00 PM EST Office Visit Family Practice [address] [phone] College, Pharmacist [address] [address] Type 2 diabetes mellitus with hemoglobin A1c goal of less than 7.0% ([facility])*; DM type 2 causing eye disease ([facility]) Allergies Active Allergy Reactions Criticality Noted Date [...] 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 06/27/2018 [facility] (current) use of insulin 10/27/2017 History of [...] mRNA, LNP-s, No Pre serve, 2-Dose Series ([employer]) 03/10/2021,06/07/2020,05/17/2020 COVID-19, LNP-s, No Preserve , Chandler-sucrose, [...] this encounter Progress Notes * Adilia Akbar, [facility] - 03/22/2024 7:55 AM EST Medication Therapy Disease Management Clinic - Diabetes Management Progress Note Denis Lam, identified by name and date of , is a 73 year old male being seen for diabetes management/education. Patient presents for return diabetic visit. DIABETES: Current diabetic medications: Lantus 10 units daily (decreased in hospital) HOLD Jardiance 25 mg daily Medication Injection Site: Abdomen Lifestyle: Diet: patient and report it is increasing since 2nd hospitalization. Patient is having 1 protein shake daily Glucose Review/SMBG: Readings obtained from patient device Hypoglycemia: Does your blood sugar go below 70 mg/dL? No Hyperglycemia symptoms present: none Recent Labs Units 01/31/24 0745 11/17/23 1315 08/09/23 1214 HEMOGLOBIN A1C - [facility] % -- 8.4* 8.2* HEMOGLOBIN, [id number] % 8.9* -- -- Recent Labs Units 03/20/24 1614 02/29/24 0000 02/15/24 0613 ESTIMATED GLOMERULAR FILTRATION RATE - [facility] mL/min >90 91.61 89 CREATININE - [facility] mg/dL 0.8 0.82 0.9 HYPERTENSION: Patient on ACEi/ARB: no, losartan stopped on last hospitalization due to hypotension BP Readings from Last 3 Encounters: 03/20/24 120/84 03/09/24 90/50 03/02/24 104/64 Blood pressure at goal: yes HYPERLIPIDEMIA: Recent Labs Units 11/17/23 1315 12/14/22 1509 LDL CHOLESTEROL (CALCULATED) - [facility] mg/dL 99 113 Does patient have clinical ASCVD? No, is patient LDL less than 70mg/dL? No: deferred per PCP HEALTH MAINTENANCE REVIEW: Health Maintenance Due Topic Date Due Adult Wellness Visit Never done Hedrick's Esophagus Surveilance 09/27/2021 ASSESSMENT & PLAN: ICD-10-CM 1. Type 2 diabetes mellitus with hemoglobin A1c goal of less than 7.0% ([facility]) E11.9 2. DM type 2 causing eye disease ([facility]) E11.39 BG Readings - Blood sugars controlled. Patient [...] any hypoglycemia before next visit. MEDICATION CHANGES: no change Diabetic Medications: Lantus 10 units daily HEALTH MAINTENANCE INTERVENTIONS: Labs: Ordered & Scheduled: BMP/CMP Immunizations: Up to Date Foot Exam: Up to Date Eye Exam: Up to Date Annual Wellness Visit: N/A FOLLOW UP: 03/27/2024 I spent a total of 20-29 minutes (exact time 25 mins) on the date of service in preparation, delivery, and documentation of the care provided to Denis Lam excluding any time spent in the performance of separately billed services. Adilia Shirley RP Clinical Pharmacist - Lang Path Therapist Medication Therapy Management Clinic 03/20/2025, 3:55 PM documented in this encounter Plan of Treatment Upcoming Encounters Date Type Department Care Team (Late st Contact Info) Description 03/22/2024 2:00 PM EST Imaging Radiology [facility] [address] [facility] [place] [address] 03/27/2024 12:00 PM EST Scheduled Telephone Care Coordination and Integration [address] [place] [address] Mary Jane Valdez, Community Health Confidential Investigator [address] [place] [address] 03/27/2024 1:40 PM EST Office Visit Family Practice [address] [place] [address] [address] [place] [address] Apolinar Wayne, [address] [place] [address] 04/02/2024 12:30 PM EST Home Visit [facility] [address] [facility] [place] [address] Betzy Vega RN [address] [place] [address] 04/03/2024 9:30 AM EST Scheduled Telephone Care Coordination and Integration [address] [place] [address] Mary Jane Valdez, Community Health Confidential Investigator [address] [place] [address] 04/03/2024 3:40 PM EST Office Visit Family Practice [address] [place] [address] [address] [place] [address] Apolinar Wayne, [address] [place] [address] 04/13/2024 3:45 PM EST Pharmacy Pharmacy Hematology Oncology [facility] [address] [place] [address] [facility] Hem/Onc [address] [place] [address] 04/19/2024 10:30 AM EST Imaging Radiology [address] [place] [address] 04/26/2024 9:00 AM EST Office Visit Hematology/Oncology [facility] [address] [place] [phone] Fernando Solo MD [address] [place] [address] 05/21/2024 2:30 PM EST Office Visit Urology Garima Meyers [address] [place] [address] Michelle Rodriguez PA-C [address] [place] [address] Scheduled Procedures Name Priority Associated Diagnoses Date/Ti [...] this encounter Medical Devices Implanted Type Area Algorithm Developer Device Identifier Shelf Expiration Date Model / Serial / Lot Graft Lyoplant 5.0x5.0cm 2x2 - [id number] Implanted:Qty : 1 on 06/24/2020 by Madi Kaur MD at OR [facility] Right: Head B ALICEA : AESCULAP 11/18/2024 [id number] / / [id number] Graft Lyoplant 5.0x5.0cm 2x2 - [id number] Implanted:Qty : 1 on 06/24/2020 by Madi Kaur MD at OR [facility] B ALICEA : AESCULAP [id number] 11/18/2024 [id number] / [id number] / [id number] Graft Lyoplant 5.0x5.0cm 2x2 - [id number] Implanted:Qty : 1 on 06/24/2020 by Madi Kaur MD at OR [facility] Right: Head B ALICEA : AESCULAP 06/24/2020 [id number] / / [id number] Graft Lyoplant 5.0x5.0cm 2x2 - [id number] Implanted:Qty : 1 on 06/24/2020 by Madi Kaur MD at OR [facility] B ALICEA : AESCULAP [id number] 11/18/2024 [id number] / [id number] / [id number] Plate Ti Lo Pro Str 2h 421.502 - [id number] Implanted:Qty : 2 on 06/24/2020 by Madi Kaur MD at OR [facility] Right: Head SYNTHES MAXILLOFACIAL 421.502 / / Plate Bx Ti [id number] 4h 421.521 - [id number] Implanted:Qty : 1 on 06/24/2020 by Madi Kaur MD at OR [facility] Right: Head SYNTHES MAXILLOFACIAL 421.521 / / Screw Ti Lo Pro Sd 4mm 400.834 - [id number] Implanted:Qty : 7 on 06/24/2020 by Madi Kaur MD at OR [facility] Right: Head SYNTHES MAXILLOFACIAL 400.834 / / documented as of this encounter Visit Diagnoses Diagnosis Type 2 diabetes mellitus with hemoglobin A1c goal of less than 7.0% (H[facility])- Primary DM type 2 causing eye disease ([facility]) Type II or unspecified type diabetes mellitus with ophthalmic manifestations, not stated as uncontrolled documented in [...] on File Name Relationship Healthcare Agent [employer] p Communication Aimee Lam Spouse Health Care Agent Care Teams Clinical Ob Relationship Specialty Start Date End Date Apolinar Wayne DO [address] [place] [address] PCP - General Internal Medicine 11/15/23 documented as of this encounter
--- OUTSIDE RECORDS SUMMARY | 2024-04-10 19:11 | External Medical Summary | Summary of Care ---
Author Name Unknown Organization [facility] Address [address] [place] [address] Phone [phone] Care Team Providers Care Equal Opportunity Specialist Name Role Phone Apolinar Wayne DO Primary Care Provider [phone] Reason for Visit * Reason Comments Dosage Adjustment In Person (Anticoag Cl inic) Follow Up Encounter Details Date Type Department Care Team (Late st Contact Info) Description 03/20/2024 2:00 PM [facility] Pharmacy Family Practice 65 [facility] [address] [place] [phone] College, Pharmacist [address] [address] Medication management* Allergies Active Allergy Reactions Criticality Noted Date [...] goal of less than 7.0% ([facility]) Use as directed every 14 days . [...] for Anxiety. 60 Tablet 03/12/20 24 Active Centrum Adults Oral TabletIndications :general health Take 1 Tablet by mouth. 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 - 03/20/2024 2:43 PM EST Medication Therapy Disease Management Clinic - Medication Reconciliation Encounter Type: discussed with patient and spouse Med Bottles Available for Review: yes Med Rec Reason: Transition of Care Date of Admission: 03/02/24 Date of Discharge: 03/05/24 Reason for Admission: fall/orthostatic hypotension Medication changes during admission/on discharge: Added: none Modified: tamsulosin and finasterde to bedtime, levetiracetam (500mg to 750mg), lantus from 16 to 10 units Discontinued: amlodipine, losartan, and jardiance (hypotension), divalproex (level subtherapeutic) Does the patient currently have all of their medications in their home? Yes Enrolled in Medicare Prescription Payment Plan for current year? Unsure [x] Preferred pharmacy reviewed/updated [x] Problem list reviewed [x] Allergies reviewed and updated if needed [x] Drug interaction check completed [x] HEDIS list addressed Immunizations indicated: Up to date Medication Organization/Adherence: Has home care nurse or caregiver: No, but assisting Patient uses a pill box/blister packs? Yes, refill(s) completed by self and spouse When you are at home, how often do you miss doses of medications? Never How difficult is it for you to pay for your medications? Not difficult at all How often do you experience adverse effects from your medications? Less than once a week Labs/Vitals/Risk Scores: The 10-year ASCVD risk score (Nely ROBLERO, et al., 2019) is: 28.9% Values used to calculate the score: Age: 73 years Sex: Male Is Non- : No Diabetic: Yes Tobacco smoker: No Systolic Blood Pressure: 90 mmHg Is BP treated: Yes HDL Cholesterol: 46 mg/dL Total Cholesterol: 183 mg/dL BP Readings from Last 3 Encounters: 03/09/24 90/50 03/02/24 104/64 02/28/24 110/60 Recent Labs Units 01/31/24 0745 11/17/23 1315 08/09/23 1214 H[facility] -- 8.4* 8.2* HEMOGLOBIN, D4S-NFEYMLQ LAB % 8.9* -- -- Recent Labs Units 02/29/24 0000 02/15/24 0613 01/23/24 1637 ESTIMATED GLOMERULAR FILTRATION RATE - IRINAER 91.61 89 88 Serum creatinine: 0.82 mg/dL 02/29/24 0000 Estimated creatinine clearance: 80.7 mL/min Assessment: Medication discrepancies identified: none - patient's meds match what was prescribed on discharge. Does have significant back stock of a number of medications. - Still has all the bottles from RENAL NURSE, however has them from current meds. Advised tokeep them separate and NOT restart them. They acknowledged. - OTC meds not with bottles brought in Dose/frequency of medications appropriate for current renal function? yes Other medication problems identified: none Plan: Immunizations facilitated: None Patient education provided: - reason why he doesn't need addition hypertension meds at the moment - lack of likely benefit a coq10, can stop to get rid of another pill. Referral pended for follow up management of: N/A Medication recommendations: - continue current prescribed meds, BP and sugar currently at goal. - stop CoQ10, lack of likely benefit I spent a total of 30-39 minutes (exact time 30 mins) on the date of service in preparation, delivery, and documentation of the care provided to Denis Lam excluding any time spent in the performance of separately billed services or time spent by another provider/QHP. Adilia Shirley [facility] Clinical Pharmacist - Hadoop Administrator Medication Therapy Management Clinic 03/20/2024, 2:43 PM documented in this encounter Plan of Treatment Upcoming Encounters Date Type Department Care Team (Late st Contact Info) Description 03/22/2024 2:00 PM EST Imaging Radiology [facility] [address] [place] [address] 03/27/2024 12:00 PM EST Scheduled Telephone Care Coordination and Integration [address] [place] [address] Mary Jane Valdez, Community Health Buyer Intern [address] [place] [address] 03/27/2024 1:40 PM EST Office Visit Family Practice [address] [place] [address] [address] [place] [address] Apolinar Wayne, [address] [place] [address] 04/02/2024 12:30 PM EST Home Visit isinger at [facility] 132 [facility] [place] [address] Betzy Vega, HECTOR 132 [place] [address] 04/03/2024 9:30 AM EST Scheduled Telephone Care Coordination and Integration [address] [facility] [place] [address] Mary Jane Valdez, Community Health Buyer Intern [address] [place] [address] 04/03/2024 3:40 PM EST Office Visit Family Practice [address] [place] [address] [place], [place] [address] Apolinar Wayne DO 293 [place] [address] 04/13/2024 3:45 PM EST Pharmacy Pharmacy Hematology Oncology [facility] [address] [place] [address] [facility] Hem/Onc [address] [place] [address] 04/19/2024 10:30 AM EST Imaging Radiology [address] 132 [facility] [place] [address] 04/26/2024 9:00 AM EST Office Visit Hematology/Oncology [facility] [address] [place], [place] [phone] Fernando Solo MD [address] [place] [address] 05/21/2024 2:30 PM EST Office Visit Urology Garima Meyers [address] [place] [address] Michelle Rodriguez PA-C [address] [place] [address] Scheduled Procedures Name Priority Associated Diagnoses Date/Ti [...] this encounter Medical Devices Implanted Type Area Cartography Professor Device Identifier Shelf Expiration Date Model / Serial / Lot Graft Lyoplant 5.0x5.0cm 2x2 - [id number] Implanted:Qty : 1 on 06/24/2020 by Madi Kaur MD at OR [facility] Right: Head B ALICEA : AESCULAP 11/18/2024 [id number] / / [id number] Graft Lyoplant 5.0x5.0cm 2x2 - [id number] Implanted:Qty : 1 on 06/24/2020 by Madi Kaur MD at OR [facility] B ALICEA : AESCULAP [id number] 11/18/2024 [id number] / [id number] / [id number] Graft Lyoplant 5.0x5.0cm 2x2 - [id number] Implanted:Qty : 1 on 06/24/2020 by Madi Kaur MD at OR [facility] Right: Head B ALICEA : AESCULAP 06/24/2020 [id number] / / [id number] Graft Lyoplant 5.0x5.0cm 2x2 - [id number] Implanted:Qty : 1 on 06/24/2020 by Madi Kaur MD at OR [facility] B ALICEA : AESCULAP [id number] 11/18/2024 [id number] / [id number] / [id number] Plate Ti Lo Pro Str 2h 421.502 - [id number] Implanted:Qty : 2 on 06/24/2020 by Madi Kaur MD at OR [facility] Right: Head SYNTHES MAXILLOFACIAL 421.502 / / Plate Bx Ti [id number] 4h 421.521 - [id number] Implanted:Qty : 1 on 06/24/2020 by Madi Kaur MD at OR [facility] Right: Head SYNTHES MAXILLOFACIAL 421.521 / / Screw Ti Lo Pro Sd 4mm 400.834 - [id number] Implanted:Qty : 7 on 06/24/2020 by Madi Kaur MD at OR [facility] Right: Head SYNTHES MAXILLOFACIAL 400.834 / / documented as of this encounter Visit Diagnoses Diagnosis Medication management- Primary Encounter for long-term (current) use of other medications documented in this encounter Advance Directives * [...] Lam Spouse Health Care Agent Care Teams Equal Opportunity Specialist Relationship Specialty Start Date End Date Apolinar Wayne DO [address] [place] [address] PCP - General Internal Medicine 11/15/23 documented as of this encounter
--- OUTSIDE RECORDS SUMMARY | 2024-04-10 19:12 | External Medical Summary | Summary of Care ---
Author Name Unknown Organization [facility] Address [address] [place] [address] Phone [phone] Care Team Providers Care Dry House Operator Name Role Phone Apolinar Wayne DO Primary Care Provider [phone] Reason for Visit * Reason Onset Date Comments Appointment 03/19/2024 Encounter Details Date Type Department Care Team (Late st Contact Info) Description 03/19/2024 Telephone [facility] [place] [address] [place] [address] Osmani Onofre, KODY [address] [place] [address] Appointment Allergies Active Allergy Reactions Criticality Noted [...] Tablet by mouth in the morning. 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 ADMISSIONS RECRUITER explained pt does not have any [facility] appts this date. Aimee explained she must have been confused with. documented in this encounter Plan of Treatment Upcoming Encounters Date Type Department Care Team (Late st Contact Info) Description 03/19/2024 3:40 PM EST Pharmacy Family Practice 65 [facility] 293 [place] [address] College, Pharmacist [address] [place] [address] 03/19/2024 4:00 PM EST Office Visit Family Practice 65 [facility] 293 [place] [address] Apolinar Wayne, DO 293 [place] [address] 03/20/2024 2:15 PM EST Scheduled Telephone Care Coordination and Integration [address] [place] [address] Mary Jane Valdez, Community Health Sand Analyst [facility] [place] [address] 03/27/2024 12:00 PM EST Scheduled Telephone Care Coordination and Integration [address] [place] [address] Mary Jane Valdez, Community Health Sand Analyst [address] [place] [address] 03/27/2024 1:40 PM EST Office Visit Family Practice [address] [place] [address] [address] [place] [address] Apolinar Wayne, [address] [place] [address] 04/02/2024 12:30 PM EST [facility] 132 [place] [address] Betzy Vega, HECTOR 132 [place] [address] 04/03/2024 9:30 AM EST Scheduled Telephone Care Coordination and Integration [address] [place] [address] Mary Jane Valdez, Community Health Sand Analyst [address] [place] [address] 04/13/2024 3:45 PM EST Pharmacy Pharmacy Hematology Oncology [facility] [address] [place] [address] [facility], [facility] Hem/Onc [address] [place] [address] 05/21/2024 2:30 PM EST Office Visit Urology Garima Meyers [address] [place] [address] Michelle Rodriguez PA-C [address] [place] [address] Scheduled Procedures Name Priority Associated Diagnoses Date/Ti [...] this encounter Medical Devices Implanted Type Area Swinging Cut Off Saw Operator Device Identifier Shelf Expiration Date Model / Serial / Lot Graft Lyoplant 5.0x5.0cm 2x2 - [id number] Implanted:Qty : 1 on 06/24/2020 by Madi Kaur MD at OR [facility] Right: Head B ALICEA : AESCULAP 11/18/2024 [id number] / / [id number] Graft Lyoplant 5.0x5.0cm 2x2 - [id number] Implanted:Qty : 1 on 06/24/2020 by Madi Kaur MD at OR [facility] B ALICEA : AESCULAP [id number] 11/18/2024 [id number] / [id number] / [id number] Graft Lyoplant 5.0x5.0cm 2x2 - [id number] Implanted:Qty : 1 on 06/24/2020 by Madi Kaur MD at OR [facility] Right: Head B ALICEA : AESCULAP 06/24/2020 [id number] / / [id number] Graft Lyoplant 5.0x5.0cm 2x2 - [id number] Implanted:Qty : 1 on 06/24/2020 by Madi Kaur MD at OR [facility] B ALICEA : AESCULAP [id number] 11/18/2024 [id number] / [id number] / [id number] Plate Ti Lo Pro Str 2h 421.502 - [id number] Implanted:Qty : 2 on 06/24/2020 by Madi Kaur MD at OR [facility] Right: Head SYNTHES MAXILLOFACIAL 421.502 / / Plate Bx Ti [id number] 4h 421.521 - [id number] Implanted:Qty : 1 on 06/24/2020 by Madi Kaur MD at OR [facility] Right: Head SYNTHES MAXILLOFACIAL 421.521 / / Screw Ti Lo Pro Sd 4mm 400.834 - [id number] Implanted:Qty : 7 on 06/24/2020 by Madi [...] Agents on File Name Relationship Healthcare Agent [facility] p Communication Aimee Lam Spouse Health Care Agent Care Teams Dry House Operator Relationship Specialty Start Date End Date Apolinar Wayne DO [address] [place] [address] PCP - General Internal Medicine 11/15/23 documented as of this encounter
--- OUTSIDE RECORDS SUMMARY | 2024-04-10 19:12 | External Medical Summary | Summary of Care ---
Author Name Unknown Organization [facility] Address [address] [place] [address] Phone [phone] Care Team Providers Care Shuttle Fitting Supervisor Name Role Phone Apolinar Wayne DO Primary Care Provider [phone] Reason for Visit * Reason Comments Medication Management Encounter Details Date Type Department Care Team (Late st Contact Info) Description 03/16/2024 3:45 PM [facility] Pharmacy Pharmacy Hematology Oncology [facility] [address] [place], [place] [id number] [facility] Hem/Onc [address] [place], [place] [id number] Glioblastoma (HCC)* Allergies Active Allergy Reactions Criticality Noted Date Comments Erythromycin 07/02/1998 GI upset Guaifenesin & Derivatives 03/18/1997 nucofed documented as of this encounter (statuses as of 03/15/2024) Medications BD Pen Needle Altagracia U/F 32G [...] goal of less than 7.0% ([facility]) Use as directed every 14 days . [...] as of this encounter (statuses as of 03/15/2024) Active Problems Problem Noted Date Diagnosed Date [...] as of this encounter (statuses as of 03/15/2024) Resolved Problems Problem Noted Date Diagnosed Date [...] as of this encounter (statuses as of 03/15/2024) Immunizations Name Administration Dates Next Due COVID-19 mRNA, LNP-s, No Pre serve, 2-Dose Series (Book[employer]) 03/10/2021,06/07/2020,05/17/2020 COVID-19, LNP-s, No Preserve , Chandler-sucrose, [...] documented in this encounter Progress Notes * Zarina Arita, [facility] - 03/15/2024 12:47 PM EST MEDICATION THERAPY MANAGEMENT LOMUSTINE TREATMENT PROGRESS NOTE Denis Ana Lam [id number] Patient Phone Numbers : Aimee Communication: Spoke to MD/PA/STENCIL MAKER Treatment: Medication: Lomustine (Gleostine, CCNU) Indication/Staging/Diagnosis Code: Glioblastoma, WHO Grade IV, IDH WT, MGMT methyldated, C71.9 Dose Basis: 90 mg/m2 - 90 mg/m2 * 2.12 m2 (12/19/23) = 190.8 mg (rounded to 190 mg) Dose: 160 mg (capped) PO once every 6 weeks Administration: empty stomach at bedtime Start Date: TBD Primary Sausage Canner/Oncologist: Dr. Ashu Solo Supportive Care Meds: Ondansetron [...] patient proceeding with surgery on 01/30 @ [facility] Lomustine start is on HOLD due to [...] requested patient apply to [employer] enterprise software developer free drug 03/07: spoke to Aimee about [employer] PAP. She will fill out patient portion and fax along with income documents directly to next source caresMomo Staley will also call aimee to see [...] has disease progression will consider starting CCNU Follow up: 1 month Zarina Arita, PharmD, BCOP Clinical Pharmacist, [facility] Oral Chemotherapy [facility] 03/15/2024, 12:50 PM Monitoring Parameters: Estimated CrCl Serum creatinine: 0.82 mg/dL 02/29/24 0000 Estimated creatinine clearance: 80.7 mL/min Hepatitis panel Complete 02/02/21 Not immune to hepatitis B virus Suggested lab monitoring CBCd weekly and CMP prior to each cycle Treatment Parameters Please refer to PI Pertinent Labs: Time Spent on Encounter: 6 - 10 minutes Encounter Group: Neuro-Oncology Encounter Interventions Item Category: Oral Chemotherapy Lomustine Problem/Rationale: Indication: Needs additional medication therapy - Untreated condition Pharmacist Intervention(s): Clarification with Provider and Medication held Magnitude of Intervention: Monitoring with no interventions (Level 0) documented in this encounter Plan of Treatment Upcoming Encounters Date Type Department Care Team (Late st Contact Info) Description 03/16/2024 3:40 PM EST Office Visit Family Practice [address] [place] [address] [address] [place] [address] Apolinar Wayne, DO [address] [place] [address] 03/20/2024 2:15 PM EST Scheduled Telephone Care Coordination and Integration [address] [place] [address] Mary Jane Valdez, Community Health Funeral Director/Embalmer [address] [place] [address] 03/27/2024 12:00 PM EST Scheduled Telephone Care Coordination and Integration [address] [place] [address] Mary Jane Valdez, Community Health Funeral Director/Embalmer [address] [place] [address] 03/27/2024 1:40 PM EST Office Visit Family Practice [address] [place] [address] [address] [place] [address] Apolinar Wayne, DO [address] [place] [address] 04/02/2024 12:30 PM EST Home Visit [facility] 132 [facility] [place] [address] Betzy Vega RN 132 [facility] [place] [address] 04/03/2024 9:30 AM EST Scheduled Telephone Care Coordination and Integration [address] [place] [address] Mary Jane Valdez, Community Health Funeral Director/Embalmer [address] [place] [address] 04/13/2024 3:45 PM EST Pharmacy Pharmacy Hematology Oncology [facility] [place] [address] [place] [address] [facility] Hem/Onc [address] [facility] [place] [address] 05/21/2024 2:30 PM EST Office Visit Urology Garima Meyers [address] [place] [address] Michelle Rodriguez PA-C [address] [place] [address] Scheduled Procedures Name Priority Associated Diagnoses Date/Ti [...] this encounter Medical Devices Implanted Type Area Bakery Clerk Device Identifier Shelf Expiration Date Model / Serial / Lot Graft Lyoplant 5.0x5.0cm 2x2 - [id number] Implanted:Qty : 1 on 06/24/2020 by Madi Kaur MD [place] [facility] Right: Head B ALICEA : AUTUMNCULACleo 11/18/2024 [id number] / / [id number] Graft Lyoplant 5.0x5.0cm 2x2 - [id number] Implanted:Qty : 1 on 06/24/2020 by Madi Kaur MD [place] [facility] B ALICEA : AESCULAP [id number] 11/18/2024 [id number] / [id number] / [id number] Graft Lyoplant 5.0x5.0cm 2x2 - [id number] Implanted:Qty : 1 on 06/24/2020 by Madi Kaur MD at [place] [facility] Right: Head B ALICEA : AESCULAP 06/24/2020 [id number] / / [id number] Graft Lyoplant 5.0x5.0cm 2x2 - [id number] Implanted:Qty : 1 on 06/24/2020 by Madi Kaur MD at [place] [facility] B ALICEA : ARIAN [id number] 11/18/2024 [id number] / [id number] / [id number] Plate Ti Lo Pro Str 2h 421.502 - [id number] Implanted:Qty : 2 on 06/24/2020 by Madi Kaur MD [place] [facility] Right: Head SYNTHES MAXILLOFACIAL 421.502 / / Plate Bx Ti [id number] 4h 421.521 - [id number] Implanted:Qty : 1 on 06/24/2020 by Madi Kaur MD [place] [facility] Right: Head SYNTHES MAXILLOFACIAL 421.521 / / Screw Ti Lo Pro Sd 4mm 400.834 - [id number] Implanted:Qty : 7 on 06/24/2020 by Madi Kaur MD at [place] [facility] Right: Head SYNTHES MAXILLOFACIAL 400.834 / / [...] on File Name Relationship Healthcare Agent Branden cleo Lam Spouse Health Care Agent Care Teams Shuttle Fitting Supervisor Relationship Specialty Start Date End Date Apolinar Wayne DO [address] [place] [address] PCP - General Internal Medicine 11/15/23 documented as of this encounter
--- OUTSIDE RECORDS SUMMARY | 2024-04-10 19:12 | External Medical Summary | Summary of Care ---
Author Name Unknown Organization [facility] Address [address] [place] [address] Phone [phone] Care Team Providers Care Warehouse Laborer Name Role Phone Apolinar Wayne DO Primary Care Provider [phone] Encounter Details Date Type Department Care Team (Late st Contact Info) Description 03/15/2024 1:55 PM EST Scheduled Telephone Care Coordination and Integration [address] [place] [address] Mary Jane Valdez, Community Health Assembly Room Supervisor [address], [place] [id number] Allergies Active Allergy Reactions Criticality Noted Date [...] hemoglobin A1c goal of less than 7.0% ([facility]) Use as directed every 14 [...] Each 1 12/30/2023 2:07 PM EDT 12/26/19 Active Ondansetron HCl 8 MG Oral Tablet [...] as needed for Anxiety. 60 Tablet 03/12/20 Active documented as of this encounter [...] 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 06/27/2018 [facility]DC (current) use of insulin 10/27/2017 History of [...] mRNA, LNP-s, No Pre serve, 2-Dose Series (StartSpanish) 03/10/2021,06/07/2020,05/17/2020 COVID-19, LNP-s, No Preserve , Chandler-sucrose, Ages 12+ (Pfizer) 11/17/2021 COVID-19, MRNA-LNP, PF, 30 M CG/0.3 mL, 12 YRS AND ABOVE, IM ([employer]-Comirnaty) 01/17/2024,03/08/2023 Covid-19, Mrna, Lnp-s, Pf, B ivalent, 30 Mcg, IM, 12 yrs and above (StartSpanish) 04/13/2022 H1N1 2009 Influenza, IM 12/10/2019,04/01/2009 Pneumococcal [...] Notes * Mary Jane Valdez, Community Health Assembly Room Supervisor - 03/15/2024 2:08 PM EST Telemedicine visit: No Community Health Assembly Room Supervisor (PADMA) documentation: CHW outbound call per Rain GRADY Unable to leave a message Phone rang then rang busy Mary Jane Valdez [facility] Community Health Worker Call or Text- [phone] documented in this encounter Plan of Treatment Upcoming Encounters Date Type Department Care Team (Late st Contact Info) Description 03/16/2024 3:40 PM EST Office Visit Family Practice [address] [place] [address] [place] [address] Apolinar Wayne, DO [address] [place] [address] 03/16/2024 3:45 PM EST Pharmacy Pharmacy Hematology Oncology [facility] [address] [place] [address] [facility] Hem/Onc [address] [place] [address] Glioblastoma (HCC)* 03/20/2024 2:15 PM EST Scheduled Telephone Care Coordination and Integration [address] [place] [address] Mary Jane Valdez, Community Health Assembly Room Supervisor [address] [place] [address] 03/27/2024 12:00 PM EST Scheduled Telephone Care Coordination and Integration [address] [place] [address] Mary Jane Valdez, Community Health Assembly Room Supervisor [address] [place] [address] 03/27/2024 1:40 PM EST Office Visit Family Practice [address] [place] [address] [address] [place] [address] Apolinar Wayne DO [address] [place] [address] 04/02/2024 12:30 PM EST Home Visit [facility] [address] [place] [address] Betzy Vega, HECTOR [address] [place] [address] 04/03/2024 9:30 AM EST Scheduled Telephone Care Coordination and Integration [address] [place] [address] Mary Jane Valdez, Community Health Assembly Room Supervisor [address] [place] [address] 04/13/2024 3:45 PM EST Pharmacy Pharmacy Hematology Oncology [facility] [address] [place] [address] [facility] Hem/Onc [address] [place] [address] 05/21/2024 2:30 PM EST Office Visit Urology Garima Meyers [address] [place] [address] [place] [address] Michelle Rodriguez PA-C [address] [place] [address] Scheduled Procedures Name Priority Associated Diagnoses Date/Ti [...] this encounter Medical Devices Implanted Type Area Cellophane Wrapping Examiner Device Identifier Shelf Expiration Date Model / Serial / Lot Graft Lyoplant 5.0x5.0cm 2x2 - [id number] Implanted:Qty : 1 on 06/24/2020 by Madi Kaur MD at OR [facility] Right: Head B ALICEA : AESCULAP 11/18/2024 [id number] / / [id number] Graft Lyoplant 5.0x5.0cm 2x2 - [id number] Implanted:Qty : 1 on 06/24/2020 by Madi Kaur MD at OR [facility] B ALICEA : AESCULAP [id number] 11/18/2024 [id number] / [id number] / [id number] Graft Lyoplant 5.0x5.0cm 2x2 - [id number] Implanted:Qty : 1 on 06/24/2020 by Madi Kaur MD at OR [facility] Right: Head B [employer]ICEA : AESCULAP 06/24/2020 [id number] / / [id number] Graft Lyoplant 5.0x5.0cm 2x2 - [id number] Implanted:Qty : 1 on 06/24/2020 by Madi Kaur MD at OR [facility] B ALICEA : AESCULAP [id number] 11/18/2024 [id number] / [id number] / [id number] Plate Ti Lo Pro Str 2h 421.502 - [id number] Implanted:Qty : 2 on 06/24/2020 by Madi Kaur MD at OR [facility] Right: Head [employer] 421.502 / / Plate Bx Ti [id number] 4h 421.521 - [id number] Implanted:Qty : 1 on 06/24/2020 by Madi Kaur MD at OR [facility] Right: Head [employer] 421.521 / / Screw Ti Lo Pro Sd 4mm 400.834 - [id number] Implanted:Qty : 7 on 06/24/2020 by Madi [...] Agents on File Name Relationship Healthcare Agent [facility] p Communication Aimee Lam Spouse Health Care Agent Care Teams Warehouse Laborer Relationship Specialty Start Date End Date Apolinar Wayne DO [address] [place] [address] PCP - General Internal Medicine 11/15/23 documented as of this encounter
--- OUTSIDE RECORDS SUMMARY | 2024-04-10 19:12 | External Medical Summary | Summary of Care ---
Author Name Unknown Organization [facility] Address [address] [place] [address] Phone [phone] Care Team Providers Care Training Coordinator Name Role Phone Apolinar Wayne DO Primary Care Provider [phone] Reason for Referral * Precert (Within 10 days (routine)) - Authorized Specialty Diagnoses / Procedures Referred By Contac t Referred To Contact Radiology Diagnoses Glioblastoma (HCC) Procedures MRI BRAIN W WO CONTRAST Fernando Solo MD [address] [facility] [place] [address] Phone: tel: fax: Referral ID Status Reason Start Date Expiration Date V isits Requested Visits Authorized [id number] Authorized 03/15/2024 999 999 Reason for Visit * Reason Comments Follow Up Encounter Details Date Type Department Care Team (Late st Contact Info) Description 03/15/2024 9:15 AM EST Telemedicine Hematology/Oncology [facility] [address] [place] [phone] Fernando Solo MD [address] [facility] [place] [address] Glioblastoma (HCC)* Allergies Active Allergy Reactions Criticality [...] goal of less than 7.0% ([facility]) Use as directed every 14 days . 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 I was in a hospital or clinic location. After connecting through televideo,patient was verified with two unique identifiers. Patient (or authorized legal digital media representative) was then informed that this was a Telemedicine visit and being conducted confidentially over secure lines. Methods to assure confidentiality were taken. Patient acknowledged consent and understanding of pr ivacy and security of the Telemedicine visit. The patient agreed to participate. === Hematology/Oncology Outpatient Clinic note [facility] [address] [place] [address] Name: Denis Lam Date: 02/02/2021 CHIEF COMPLAINT: Denis Lam is a 73 year old male patient here today for f/u visit. Date of consultation with me :08/08/2020 DIAGNOSIS: -glioblastoma multiforme involving the right temporal lesion. S/P resection -seizure disorder - , IDH wt, MGMT minimally methylated, EGFR neg, He was managed by neuro-oncologist Dr. Love at [facility], now she is living, he would like to transfer the care with us. Earlier I saw him in 2020. BRAIN, RIGHT TEMPORAL LESION, EXCISION at [facility]: ( 01/31/2024 ) BIPHASIC POORLY DIFFERENTIATED MALIGNANT NEOPLASM, FAVOR RECURRENT GLIOBLASTOMA WITH GLIOSARCOMATOUS DIFFERENTIATION ( - NEGATIVE for MGMT promoter methylation by PCR - IDH-WILDTYPE Next-Generation Sequencing (GlioSeq panel) TERT promoter mutation C228T PTEN mutation p.G132D and copy number LOSS NF1 mutation p.W426* TP53 mutation p.G279E at low allelic frequency 1p region (partial deletion), 6q region, and RB1 copy number LOSSES CDKN2A/CDKN2B homozygous copy number LOSS CURRENT TREATMENT: We talked about treatment options that can be considered in the form of starting lomustine versus observation and focusing on the quality of the life. Overall declining performed status noted, could not come to the office for the visit and so this was a video visit. - planning for lomustine at 90 mg/m every 6 weekly. He would like to continue that treatment PREVIOUS TREATMENT: 08/21/2020-10/02/2020 -Combined the temozolomide (75 mg/m daily for 6 weeks) and radiation treatment ([facility]). He completed TMZ and XRT 10/02/2020. -temozolomide maintenance ( 5 days every 4 weekly) started on 11/17/2020, it was stopped in November 2023 when noticed to have disease progression. SRS at [facility] in July 2021, - no additional radiation treatment is recommended at this time. He is wearing Optune device since mid-November 2020. DIAGNOSTIC WORKUP: He had seizure episode for the 1st time in his life, he was seen at [facility] in05/2020, further workup showed a right temporal lobe mass, S/P resection at [facility]. Workup as follows: Brain MRI (06/09/2020: -1.6 x 1.4 cm ring enhancing right temporal lobe lesion. No significant the mass effect. No significant when seen in neck edema. CT chest, abdomen and pelvis (06/09/2020) 1. 2.5 mm left lower lobe pulmonary nodule 2. No evidence of bowel obstruction. No evidence of free air 3. Normal appendix. No evidence of acute diverticulitis 4. Persistent cholelithiasis with persistent wall thickening involving the gallbladder fundus 5. Prostatomegaly 6. No evidence of intra-abdominal or pelvic metastatic disease S/P resection of the right temporal mass (06/24/2020: -glioblastoma, IDH wild-type, WHO grade 4. -EGFR amplification --> not detected. - MGMT gene promoter methylation --> detected. (3.33 %) Brain MRI done on 07/08/2020: -no acute findings, no infarction, stable postoperative findings in the right temporal lobe noted. OTHER IMPORTANT HISTORY: -seizure disorder, he presented with a seizure at the time of the diagnosis with GBM. He is on Keppra and Depakote. -anxiety/depression, he is on Zoloft -BPH, on finasteride -Hyperlipidemia -GERD. -history of DVT and pulmonary embolism about 2 years back, he is on Xarelto. MRI 01/05/2021 IMPRESSION: Post treatment changes in the right temporal lobe associated with the patient's right sided temporal glioblastoma. FLAIR hyperintensity and enhancement about the margins of the treatment site appearssimilar, with a small progressive focus of enhancement at the anterior and medial edge of the temporal lobe adjacent to the surgical tract. This may reflect progressive post treatment changes, but rhonda se follow-up is suggested to exclude a small focus of progressive tumor. HISTORY OF PRESENT ILLNESS: I spoke with him via video visit, his was also there with him. He was sitting comfortably, he says that he gets headache perhaps once a day mainly in the frontal region, he takes Tylenol for the symptomatic treatment. Currently he is not on steroid therapy. No fever. No definite weakness of the extremities, ambulating slowly with the help of the walker and sometimes with a cane. He needs significant assistance of coming to the clinic and that is why we made it to the video visit. No nausea no vomiting, eating well, no new CBCD, no new abdominal symptoms. Recently he had a resection of the right temporal mass in mid- January 2024, final pathology showed recurrent GBM. On 03/02/2024, he was seen at [facility] ER for orthostatic hypotension, he had afall, reviewed blood workup during that time, it was unremarkable, He was discharged on 03/05/2024. 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 repeat EGD in 3 yrs/repeat EUS in 3-6 months Benign neoplasm of colon 08/26/06 hyperplastic polyp-repeat colonoscopy in 10 years DM type 2, goal A1c below 7 01/16/2009 Dyslipidemia, goal LDL below 100 03/04/2009 HTN, goal below 130/80 04/16/2009 Lumbar degenerative disc disease 08/10/2016 Pulmonary hypertension (HCC) 10/10/2018 Shingles 09/2012 right T-8 Social History Socioeconomic History Marital status: Spouse name: Not on file Number of children: Not on file Years of education: Not on file Highest education level: Not on file Occupational History Not on file Tobacco Use Smoking status: Former Current packs/day: 0.00 Average packs/day: 0.5 packs/day for 5.0 years (2.5 ttl pk-yrs) Types: Cigarettes Start date: 03/21/1964 Quit date: 03/21/1969 Years since quittin.0 Passive exposure: Past Smokeless tobacco: Former Types: Chew Tobacco comments: Current occasional chew use - 1 pouch/month Vaping Use Vaping status: Never Used Substance and Sexual Activity Alcohol use: Not Currently Comment: Very occasional Drug use: No Sexual activity: Yes Partners: Female Other Topics Concern Not on file Social History Narrative Not on file Social Needs Financial Resource Strain: Low Risk (03/06/2024) Financial Resource Strain Do you have any trouble paying for your medications, or do you think you might in the future? (Adult - for ages 18 years and over): No Does your family have trouble paying for medicine? (Household - for ages 0-17 years): Not on file Food Insecurity: No Food Insecurity (03/06/2024) Food Insecurity Do you need food for this week? (Adult - for ages 18 years and over): No Are you able to get enough food for your family? (Household - for ages 0-17 years): Not on file Does your family need food this week? (Household - for ages 0-17 years): Not on file Do you always have enough food for your family? (Household - for ages 0-17 years): Not on file Transportation Needs: No Transportation Needs (03/06/2024) Transportation Needs Do you have trouble getting a ride to medical visits or work? (Adult - for ages 18 years and over):Never True Does your family have a hard time getting a ride to doctors visits? (Household - for ages 0-17 years): Not on file Has lack of transportation kept you from medical appointments, meetings, work, or from getting things needed for daily living? Check all that apply. (Adult - for ages 18 years and over): No Do you (or your family) have trouble finding or paying for a ride (transportation)? (Household - for ages 0-17 years): Not on file Social Connections: Socially Integrated (03/06/2024) Social Connections How often do you feel lonely or isolated from those around you? (Adult - for ages 18 years and over): Rarely Housing Stability: Low Risk (03/06/2024) Housing Stability Do you currently live in a intermediate or have no steady place to sleep at night? (Adult - for ages 18 years and over): No Do you think you are at risk of becoming homeless? (Adult - for ages 18 years and over): No Does your family worry about paying for your home or becoming homeless? (Household - for ages 0-17 years): Not on file Are you homeless or worried that you might be in the future? (Adult - for ages 18 years and over): No Are you (or your family) homeless or worried that you might be in the future? (Household - for ages0-17 years): Not on file Past Surgical History: Procedure Laterality Date ARTHROSCOPY SHOULDER,SURGICAL 11/2005 Dr. Bryant-right shoulder BIOPSY OF PROSTATE 12/2004 No malignancy COLONOSCOPY 08/26/2006 Single polyp hyperplastic-repeat in 10years COLONOSCOPY, DIAGNOSTIC (RECTUM) 09/30/2016 adenomatous polyp, repeat 3 yrs/COLONOSCOPY FLEXIBLE PROXIMAL DIAGNOSTIC performed by Luana Callahan DO at ENDOSCOPY [facility] COLONOSCOPY, DIAGNOSTIC (RECTUM) 11/02/2019 internal hemorrhoids/biopsies show adenomatous polyps/recall 5 years/COLONOSCOPY FLEXIBLE PROXIMAL DIAGNOSTIC performed by Luana Callahan DO at ENDOSCOPY [facility] EGD, FLEXIBLE, DIAGNOSTIC 12/13/2011 Hedrick's-repeat EGD 3 yrs/repeat EUS 3-6 monthsUPPER GI ENDOSCOPY DIAGNOSTIC performed by Luana Diaz DO at ENDOSCOPY [facility] EGD, FLEXIBLE, DIAGNOSTIC 06/06/2015 sm HH, Barretts, repeat 3 yrs/ESOPHAGOGASTRODUODENOSCOPY (EGD), FLEXIBLE, TRANSORAL, DIAGNOSTIC performed by Luana Callahan DO at ENDOSCOPY [facility] EGD, FLEXIBLE, DIAGNOSTIC 09/27/2018 mild inflammation on bx, repeat 3 yrs/ESOPHAGOGASTRODUODENOSCOPY (EGD), FLEXIBLE, TRANSORAL, DIAGNOSTIC performed by Luana Callahan DO at ENDOSCOPY [facility] EGD, FLEXIBLE, W/BIOPSY 12/11/2009 done bxs done barretts esophagus EGD, W/ENDOSCOPIC US 12/11/2009 done no cyst identified,multiple small stones and sludge in gallbladder pancreas without masses of ductal dilatation barretts esophagus with a small nodule bxs done EGD, W/ENDOSCOPIC US 04/03/2012 UPPER GI ENDOSCOPY ENDOSCOPIC ULTRASOUND performed by Luana Callahan DO at OR [facility] MICROSURGERY ADD-ON Right 06/24/2020 MICROSURGICAL SURGERY REQUIRING MICROSCOPE LISTED SEPARATELY performed by Madi Kaur, [facility] OR [facility] REMOVAL OF APPENDIX REMOVE CATARACT, INSERT LENS PROSTH Left 08/22/2019 REMOVE CATARACT, INSERT LENS PROSTH Right 09/05/2019 REMOVE SUPRATENTORIAL BRAIN TUMOR Right 06/24/2020 CRANIOTOMY BONE FLAP EXCISION BRAIN TUMOR SUPRATENTORIAL performed by Madi Kaur MD at OR [facility] REMOVE TONSILS & ADENOIDS, UNDER 12 T & A, age<12 REPAIR RUPTURED ROTATOR CUFF, CHRON 06/27/2013 right - Dr. Bryant STEREOTACTIC CRANIAL INTRADURAL NAVIGATION Right 06/24/2020 STEREOTACTIC CRANIAL INTRADURAL NAVIGATION performed by Madi Kaur MD at OR [facility] Family History Problem Relation Name Age of Onset Diabetes Father s/p leg amputation due to complications diabetes- Cancer Sister age 43 brain cancer Endocrine Disorder Father elevated chol Stroke Father due to prolonged complications post CVA Stroke Mother Neurological Disorder Mother dementia Review of patient's allergies indicates: Allergen Reactions Erythromycin GI upset Guaifenesin & Derivatives nucofed Current Outpatient Medications Medication Sig Dispense Refill [...] UT) Oral Capsule Take 1 Capsule by mouth. Centrum Adults Oral Tablet Take 1 Tablet by mouth. FreeStyle Aarti 2 Sensor Use as directed every 14 days . 1 Each 0 Magnesium Oxide 420 MG Oral Tablet Take 1 Tablet by mouth in the morning. Gabapentin 300 MG Oral Capsule (Neurontin) TAKE [...] (Protonix) TAKE ONE TABLET BY MOUTH EVERY [id number] Tablet 3 Finasteride 5 MG Oral Tablet [...] 100 MG Oral Capsule Take by mouth. Multiple Vitamins Oral Tablet Take by mouth. LORazepam 0.5 MG Oral Tablet (Ativan) Take 1 Tablet by mouth 3 times a day as needed for Anxiety. 60 Tablet 0 No current facility-administered medications for this visit. REVIEW OF SYSTEMS: Performance Status: Normal - ECOG 1 See HPI, otherwise negative. OBJECTIVE: There were no vitals taken for this visit. LABS: Blood workup done on 12/20/2023: -BUN/Creat: 20/0.9, Calcium 9.5, normal LFT -WBC 5500, Hemoglobin and hematocrit -15/46, Platelet count 398125. I reviewed blood workup done at [facility] when he was admitted in mid-February 2024 Blood workup done on 03/03/2024: -WBC 4060, Hemoglobin and hematocrit -12.9/39, Platelet count [id number] -BUN/Creat: 21/0.81. Normal LFT. Brain MRI done on 05/31/2023: -overall stable postoperative and posttreatment changes in the right temporal lobe. Mild irregular enhancement which is unchanged compared to the February 2023 MRI. Brain MRI 09/05/2023: -stable postsurgical changes in the right jain, no evidence of recurrent disease noted Brain MRI on 12/06/2023: Postsurgical changes of right craniotomy for resection of a right temporal lobe tumor. Increased enhancement involving the right temporal lobe, measuring up to 3.5 cm, with increased adjacent T2/FLAIR hyperintense signal. Findings are concerning for tumor recurrence. Brain MRI with and without contrast on 03/02/2024 at [facility]: - No evidence of acute intracranial pathology. - Status post right anterior temporal lobe tumor resection with heterogeneous enhancement of the posterior and medial margins, which may represent posttreatment effect or residual/recurrent tumor IMPRESSION: Glioblastoma, recurrent. 73-year-old male, A case of GBM, S/P resection of the right temporal mass on 06/24/2020, - EGFR amplification --> not detected -MGMT gene promoter methylation --> detected (3.33%). -he presented with new episode of seizure at that time the diagnosis. Recovered well from recent surgery, no focal neurological symptoms. Earlier received combined chemotherapy temozolomide and radiation treatment and then received everymonthly temozolomid since 2020, recent the imaging studies done in November 2023 showed progression of the decision the left temporal region and so temozolomide has been discontinued Earlier he was followed by Dr. Love at [facility], now she is living so hewould like to transfer the care with the, before that his case was discussed over there, they have suggested lomustine treatment. He was then seen at [facility] Neurosurgery Department, he had a resection of the right temporal mass earlier in July and January 2024, I reviewed the histopathological findings. About months later, he had an accidental fall, he was seen at [facility] ER, he was admitted over there, he had a brain MRI which was not showing any new increasing sites of disease, there was no vasogenic edema, not on steroid therapy. He was there for few days and then he was discharged. At present he has tough time coming to the clinic so this was a video visit. He is ambulating with the help of the walker but otherwise mild headache, responds well with the steroid therapy, not on steroid therapy, no seizure, no infections, no trouble swallowing, no focal weakness. No speech disturbances, he is having speech therapy as well as physical therapy at home. Reviewed brain MRI findings to them. We talked about treatment options that can be considered in the form of considering for lomustine versus observation. Once again talked to them about treatment with lomustine, side effect profile, mainly bone marrow suppression which could be prolonged. We also talked about starting at a lower dose. At the end of the video visit, his and I asked him specifically what he would like to do and he suggested not to start lomustine at this time and have another brain MRI in about 1 month from now. I am planning for brain MRI at [facility]. I am planning to see him after the brain MRI is done in last week of March 2024. Dr. Fernando Solo Hem/Onc (This note was completed using the dictation program Fluency Direct. As such, there may be misspellings word substitutions, or other variations that should not change the essence of the clinical content of this encounter note. If there is need for further clarification, please direct questions to the provider listed above.) documented in this encounter Plan of Treatment Upcoming Encounters Date Type Department Care Team (Late st Contact Info) Description 03/16/2024 3:40 PM EST Office Visit Family Practice [address] [facility] [address] [place] [address] Apolinar Wayne, [address] [place] [address] 03/16/2024 3:45 PM EST Pharmacy Pharmacy Hematology Oncology [facility] [address] [place] [address] [facility], [facility] Hem/Onc [address] [place] [address] Glioblastoma (HCC)* 03/20/2024 2:15 PM EST Scheduled Telephone Care Coordination and Integration [address] [place] [address] Mary Jane Valdez, Community Health Analysis Director [address] [place] [address] 03/27/2024 12:00 PM EST Scheduled Telephone Care Coordination and Integration [address] [place] [address] Mary Jane Valdez, Community Health Analysis Director [address] [place] [address] 03/27/2024 1:40 PM EST Office Visit Family Practice [address] [place] [address] [place] [address] Apolinar Wayne, [address] [place] [address] 04/02/2024 12:30 PM EST Home Visit [facility] at [facility] [address] [place] [address] Betzy Vega, HECTOR [address] [place] [address] 04/03/2024 9:30 AM EST Scheduled Telephone Care Coordination and Integration [address] [place] [address] Mary Jane Valdez, Community Health Analysis Director [address] [place] [address] 04/13/2024 3:45 PM EST Pharmacy Pharmacy Hematology Oncology [facility] [address] [place] [address] [facility], [facility] Hem/Onc [address] [place] [address] 05/21/2024 2:30 PM EST Office Visit Urology Garima Meyers [address] [place] [address] Michelle Rodriguez PA-C [address] [place] [address] Scheduled Orders Name Type Priority Associated Diagnoses Orde r Schedule MRI BRAIN W WO CONTRAST Medical Imaging Routine Glioblastoma (HCC) Ordered: 03/15/2024 Scheduled Procedures Name Priority Associated Diagnoses Date/Ti [...] this encounter Medical Devices Implanted Type Area Warehouse Guard Device Identifier Shelf Expiration Date Model / Serial / Lot Graft Lyoplant 5.0x5.0cm 2x2 - [id number] Implanted:Qty : 1 on 06/24/2020 by Madi Kaur MD at OR [facility] Right: Head B ALICEA : AESCULAP 11/18/2024 [id number] / / [id number] Graft Lyoplant 5.0x5.0cm 2x2 - [id number] Implanted:Qty : 1 on 06/24/2020 by Madi Kaur MD at OR [facility] B ALICEA : AESCULAP [id number] 11/18/2024 [id number] / [id number] / [id number] Graft Lyoplant 5.0x5.0cm 2x2 - [id number] Implanted:Qty : 1 on 06/24/2020 by Madi Kaur MD at OR [facility] Right: Head B [employer]ICE[employer] : AESC[employer]AP 06/24/2020 [id number] / / [id number] Graft Lyoplant 5.0x5.0cm 2x2 - [id number] Implanted:Qty : 1 on 06/24/2020 by Madi Kaur MD at OR [facility] B ALICEA : AESCULAP [id number] 11/18/2024 [id number] / [id number] / [id number] Plate Ti Lo Pro Str 2h 421.502 - [id number] Implanted:Qty : 2 on 06/24/2020 by Madi Kaur MD at OR [facility] Right: Head SYNTHES MAXILLOFACIAL 421.502 / / Plate Bx Ti [id number] 4h 421.521 - [id number] Implanted:Qty : 1 on 06/24/2020 by Madi Kaur MD at OR [facility] Right: Head SYNTHES MAXILLOFACIAL 421.521 / / Screw Ti Lo Pro Sd 4mm 400.834 - [id number] Implanted:Qty : 7 on 06/24/2020 by Madi Kaur MD at OR [facility] Right: Head SYN[employer]ES MAXILLOF[employer]IAL 400.834 / / [...] Name Relationship Healthcare Agent [facility] Shira Lam Spouse Health Care Agent Care Teams Training Coordinator Relationship Specialty Start Date End Date Apolinar Wayne DO [address] [place] [address] PCP - General Internal Medicine 11/15/23 documented as of this encounter
--- OUTSIDE RECORDS SUMMARY | 2024-04-10 19:12 | External Medical Summary | Summary of Care ---
Author Name Unknown Organization [facility] Address [address] [place] [address] Phone [phone] Care Team Providers Care Steward/Stewardess Third Name Role Phone Apolinar Wayne DO Primary Care Provider [phone] Encounter Details Date Type Department Care Team (Late st Contact Info) Description 03/19/2024 Telephone Pharmacy Hematology Oncology [facility] [place] [address] [place] [address] Tiffanie Disla, [facility] [address] [place] [facility] [place] [address] Allergies Active Allergy Reactions Criticality Noted [...] mRNA, LNP-s, No Pre serve, 2-Dose Series (MySQUAR) 03/10/2021,06/07/2020,05/17/2020 COVID-19, LNP-s, No Preserve , Chandler-sucrose, Ages 12+ (Pfizer) 11/17/2021 COVID-19, MRNA-LNP, PF, 30 M CG/0.3 mL, 12 YRS AND ABOVE, IM (Cantimer-Comirnaty) 01/17/2024,03/08/2023 Covid-19, Mrna, Lnp-s, Pf, B ivalent, 30 Mcg, IM, 12 yrs and above (MySQUAR) 04/13/2022 H1N1 2009 Influenza, IM 12/10/2019,04/01/2009 Pneumococcal [...] Miscellaneous Notes * Telephone Encounter - Tiffanie Disla RPh - 03/19/2024 10:00 AM EST Message received from provider/nurse that patient wishes to start lomustine. Please follow up with patient and regarding assistance Tiffanie Disla PharmD Ambulatory Clinical Pharmacist | Oral Chemotherapy Clinic [facility] [address] 03/19/2024, 10:03 AM documented in this encounter Plan of Treatment Upcoming Encounters Date Type Department Care Team (Late st Contact Info) Description 03/19/2024 3:40 PM EST Pharmacy Family Practice 65 [facility] 293 [place] [address] College, Pharmacist [address], [place] [address] 03/19/2024 4:00 PM EST Office Visit Family Practice [facility] 293 [place] [address] Apolinar Wayne, DO 293 [facility], [place] [address] 03/20/2024 2:15 PM EST Scheduled Telephone Care Coordination and Integration [address] [place] [address] Mary Jane Valdez, Community Health Visual Manager [address] [place] [address] 03/27/2024 12:00 PM EST Scheduled Telephone Care Coordination and Integration [address] [place] [address] Mary Jane Valdez, Community Health Visual Manager [address] [place] [address] 03/27/2024 1:40 PM EST Office Visit Family Practice [address] [place] [address] 293 [place] [address] Apolinar Wayne, 293 [place] [address] 04/02/2024 12:30 PM EST Home Visit [facility] 132 [place] [place] [address] Betzy Vega, HECTOR 132 [facility] [place] [address] 04/03/2024 9:30 AM EST Scheduled Telephone Care Coordination and Integration [address] [place] [address] Mary Jane Valdez, Community Health Visual Manager [address] [place] [address] 04/13/2024 3:45 PM EST Pharmacy Pharmacy Hematology Oncology [facility] [address] [place] [address] [facility] Clinic Hem/Onc [address] [place] [address] 05/21/2024 2:30 PM EST Office Visit Urology Garima Meyers [address] [place] [address] Michelle Rodriguez PA-C [address] [place] [address] Scheduled Procedures Name Priority Associated Diagnoses Date/Ti [...] this encounter Medical Devices Implanted Type Area Cook Frozen Dessert Device Identifier Shelf Expiration Date Model / Serial / Lot Graft Lyoplant 5.0x5.0cm 2x2 - [id number] Implanted:Qty : 1 on 06/24/2020 by Madi Kaur MD at OR [facility] Right: Head B ALICEA : AESCULAP 11/18/2024 [id number] / / [id number] Graft Lyoplant 5.0x5.0cm 2x2 - [id number] Implanted:Qty : 1 on 06/24/2020 by Madi Kaur MD at OR [facility] B ALICEA : AESCULAP [id number] 11/18/2024 [id number] / [id number] / [id number] Graft Lyoplant 5.0x5.0cm 2x2 - [id number] Implanted:Qty : 1 on 06/24/2020 by Madi Kaur MD at OR [facility] Right: Head B ALICEA : AESCULAP 06/24/2020 [id number] / / [id number] Graft Lyoplant 5.0x5.0cm 2x2 - [id number] Implanted:Qty : 1 on 06/24/2020 by Madi Kaur MD at OR [facility] B ALICEA : AESCULAP [id number] 11/18/2024 [id number] / [id number] / [id number] Plate Ti Lo Pro Str 2h 421.502 - [id number] Implanted:Qty : 2 on 06/24/2020 by Madi Kaur MD at OR [facility] Right: Head SYNTHES MAXILLOFACIAL 421.502 / / Plate Bx Ti [id number] 4h 421.521 - [id number] Implanted:Qty : 1 on 06/24/2020 by Madi Kaur MD at OR [facility] Right: Head SYNTHES MAXILLOFACIAL 421.521 / / Screw Ti Lo Pro Sd 4mm 400.834 - [id number] Implanted:Qty : 7 on 06/24/2020 by Madi Kaur MD at OR [facility] Right: Head SYNTHES MAXILLOFACIAL [...] File Name Relationship Healthcare Agent [facility] p Communication Aimee Lam Spouse Health Care Agent Care Teams Steward/Stewardess Third Relationship Specialty Start Date End Date Apolinar Wayne DO [address] [place] [address] PCP - General Internal Medicine 11/15/23 documented as of this encounter"
--- OUTSIDE RECORDS SUMMARY | 2024-04-10 19:12 | External Medical Summary | Summary of Care ---
Author Name Unknown Organization [facility] Address [address] [place] [address] Phone [phone] Care Team Providers Care Naphthalene Operator Helper Name Role Phone Apolinar Wayne DO Primary Care Provider [phone] Reason for Visit * Reason Onset Date Comments Advice 03/15/2024 Encounter Details Date Type Department Care Team (Late st Contact Info) Description 03/15/2024 Telephone [facility] [place] [address] [place] [phone] Fernando Solo MD [address] [facility] [place] [address] Advice Allergies Active Allergy Reactions Criticality Noted [...] with nephropathy 06/27/2018 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 06/27/2018 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 * Telephone Encounter - Jewell Flores OSA - 03/15/2024 11:39 AM EST Minda from Dr. Simental Oral Oncology Office calling to speak with either the nurses or Dr. Solo regarding patients appt today. Patient had contacted them and stated Dr. Solo was refusing to prescribe chemo medication and since Dr. Solo and Dr. Simental have been in contact about this, they would like to get more info on this. If the office note is available, that could be faxed over as well. . Please advise. Thank you documented in this encounter Plan of Treatment Upcoming Encounters Date Type Department Care Team (Late st Contact Info) Description 03/16/2024 3:40 PM EST Office Visit Family [facility] 65 [facility] 293 [place] [address] Apolinar Wayne, DO 293 [place] [address] 03/16/2024 3:45 PM EST Pharmacy Pharmacy Hematology Oncology [facility] [address] [place] [address] [facility] [place] Hem/Onc [address] [place] [address] Glioblastoma (HCC)* 03/20/2024 2:15 PM EST Scheduled Telephone Care Coordination and Integration [address] [place] [address] Mary Jane Valdez, Community Health Gymnastics Coach Or Instructor [address] [place] [address] 03/27/2024 12:00 PM EST Scheduled Telephone Care Coordination and Integration [address] [place] [address] Mary Jane Valdez, Community Health Gymnastics Coach Or Instructor [address] [place] [address] 03/27/2024 1:40 PM EST Office Visit Family Practice 65 [facility] [address] [place] [address] Apolinar Wayne, [address] [place] [address] 04/02/2024 12:30 PM EST Home Visit [facility], [facility] [address] [place] [address] Betzy Vega, HECTOR [address] [place] [address] 04/03/2024 9:30 AM EST Scheduled Telephone Care Coordination and Integration [address] [place] [address] Mary Jane Valdez, Community Health Gymnastics Coach Or Instructor [address] [place] [address] 04/13/2024 3:45 PM EST Pharmacy Pharmacy Hematology Oncology [facility] [address] [place] [address] [facility] [place], [facility] Hem/Onc [address] [place] [address] 05/21/2024 2:30 PM EST Office Visit Urology Garima Meyers [address] [place] [address] Michelle Rodriguez PA-C [address] [place] [address] Scheduled Procedures Name Priority Associated Diagnoses Date/Ti [...] this encounter Medical Devices Implanted Type Area Pit Inspector Device Identifier Shelf Expiration Date Model / Serial / Lot Graft Lyoplant 5.0x5.0cm 2x2 - [id number] Implanted:Qty : 1 on 06/24/2020 [place] Mad[place] [facility] [place]: Head B ALICEA : AUTUMNCULACleo 11/18/2024 [id number] / / [id number] Graft Lyoplant 5.0x5.0cm 2x2 - [id number] Implanted:Qty : 1 on 06/24/2020 by Madi Kaur [place] [facility] B ALICEA : AESCULACleo [id number] 11/18/2024 [id number] / [id number] / [id number] Graft Lyoplant 5.0x5.0cm 2x2 - [id number] Implanted:Qty : 1 on 06/24/2020 by Madi Kaur [place] [facility] Right: Head B ALICEA : AESCULAP 06/24/2020 [id number] / / [id number] Graft Lyoplant 5.0x5.0cm 2x2 - [id number] Implanted:Qty : 1 on 06/24/2020 by Madi Kaur MD [place] [facility] B ALICEA : AUTUMNCULAP [id number] 11/18/2024 [id number] / [id number] / [id number] Plate Ti Lo Pro Str 2h 421.502 - [id number] Implanted:Qty : 2 on 06/24/2020 by Madi Kaur MD [place] [facility] Right: Head SYNTHES MAXILLOFACIAL 421.502 / / Plate Bx Ti [id number] 4h 421.521 - [id number] Implanted:Qty : 1 on 06/24/2020 by Madi Kaur MD [place] [facility] Right: Head SYNTHES MAXILLOFACIAL 421.521 / / Screw Ti Lo Pro Sd 4mm 400.834 - [id number] Implanted:Qty : 7 on 06/24/2020 by Madi Kaur MD [place] [facility] Right: Head SYNTHES MAXILLOFACIAL 400.834 / / [...] Agents on File Name Relationship Healthcare Agent [facility] cleo Communication Aimee Lam Spouse Health Care Agent Care Teams Naphthalene Operator Helper Relationship Specialty Start Date End Date Apolinar Wayne DO [address] [place] [address] PCP - General Internal Medicine 11/15/23 documented as of this encounter
--- OUTSIDE RECORDS SUMMARY | 2024-04-10 19:12 | External Medical Summary | Summary of Care ---
Author Name Unknown Organization [facility] Address [address] [place] [address] Phone [phone] Care Team Providers Care Adding Machine Servicer Name Role Phone Apolinar Wayne DO Primary Care Provider [phone] Encounter Details Date Type Department Care Team (Late st Contact Info) Description 03/15/2024 1:55 PM EST Scheduled Telephone Care Coordination and Integration [address] [place] [address] Mary Jane Valdez, Community Health Accounting Machine Servicer [address] [place], [place] [address] Allergies Active Allergy Reactions Criticality Noted Date [...] mRNA, LNP-s, No Pre serve, 2-Dose Series (Forsitec) 03/10/2021,06/07/2020,05/17/2020 COVID-19, LNP-s, No Preserve , Chandler-sucrose, Ages 12+ (Pfizer) 11/17/2021 COVID-19, MRNA-LNP, PF, 30 M CG/0.3 mL, 12 YRS AND ABOVE, IM (COTA-Comirnaty) 01/17/2024,03/08/2023 Covid-19, Mrna, Lnp-s, Pf, B ivalent, 30 Mcg, IM, 12 yrs and above (Forsitec) 04/13/2022 H1N1 2009 Influenza, IM 12/10/2019,04/01/2009 Pneumococcal [...] Assessment Author No 06/29/2020 5:01 AM Sa valenitne Morse RN * Are you blind or [...] Notes * Mary Jane Valdez, Community Health Accounting Machine Servicer - 03/15/2024 2:08 PM EST Telemedicine visit: No Community Health Accounting Machine Servicer (PADMA) documentation: CH[facility] outbound call per Rain GRADY Unable to leave a message Phone rang then rang busy Mary Jane Valdez [facility] Community Health Worker Call or Text- [phone] Electronically signed by Mary Jane Valdez, Community Health Accounting Machine Servicer at 03/15/2024 2:14 PM EST documented in this encounter Plan of Treatment Upcoming Encounters Date Type Department Care Team (Late st Contact Info) Description 03/16/2024 3:40 PM EST Office Visit Family Practice [address] [place] [address] [place] [address] Apolinar Wayne, DO [address] [place] [address] 03/16/2024 3:45 PM EST Pharmacy Pharmacy Hematology Oncology [facility] [address] [place] [address] [facility], [facility] Hem/Onc [address] [place] [address] Glioblastoma (HCC)* 03/20/2024 2:15 PM EST Scheduled Telephone Care Coordination and Integration [address] [place] [address] Mary Jane Valdez, Community Health Accounting Machine Servicer [address] [place] [address] 03/27/2024 12:00 PM EST Scheduled Telephone Care Coordination and Integration [address] [place] [address] Mary Jane Valdez, Community Health Accounting Machine Servicer [address] [place] [address] 03/27/2024 1:40 PM EST Office Visit Family Practice [address] [place] [address] [address] [place] [address] Apolinar Wayne DO 293 [place] [address] 04/02/2024 12:30 PM EST Home Visit [facility] [address] [place] [address] Betzy Vega, HECTOR 132 [place] [address] 04/03/2024 9:30 AM EST Scheduled Telephone Care Coordination and Integration [address] [place] [address] Mary Jane Valdez, Community Health Accounting Machine Servicer [address] [place] [address] 04/13/2024 3:45 PM EST Pharmacy Pharmacy Hematology Oncology [facility] [address] [place] [address] [facility], [facility] Hem/Onc [address] [place] [address] 05/21/2024 2:30 PM EST Office Visit Urology Garima Meyers [address] [place] [address] Michelle Rodriguez PA-C [address] [place] [address] Scheduled Procedures Name Priority Associated Diagnoses Date/Ti [...] this encounter Medical Devices Implanted Type Area Inside Sales Administrator Device Identifier Shelf Expiration Date Model / Serial / Lot Graft Lyoplant 5.0x5.0cm 2x2 - [id number] Implanted:Qty : 1 on 06/24/2020 by Madi Kaur MD at OR [facility] [place] Right: Head B ALICEA : AESCULAP 11/18/2024 [id number] / / [id number] Graft Lyoplant 5.0x5.0cm 2x2 - [id number] Implanted:Qty : 1 on 06/24/2020 by Madi Kaur MD at OR [facility] [place] B ALICEA : AESCULAP [id number] 11/18/2024 [id number] / [id number] / [id number] Graft Lyoplant 5.0x5.0cm 2x2 - [id number] Implanted:Qty : 1 on 06/24/2020 by Madi Kaur MD at OR [facility] [place] Right: Head B ALICEA : AESCULAP 06/24/2020 [id number] / / [id number] Graft Lyoplant 5.0x5.0cm 2x2 - [id number] Implanted:Qty : 1 on 06/24/2020 by Madi Kaur MD at OR [facility] [place] B ALICEA : AESCULAP [id number] 11/18/2024 [id number] / [id number] / [id number] Plate Ti Lo Pro Str 2h 421.502 - [id number] Implanted:Qty : 2 on 06/24/2020 by Madi Kaur MD at OR [facility] [place] Right: Head SYNTHES MAXILLOFACIAL 421.502 / / Plate Bx Ti [id number] 4h 421.521 - [id number] Implanted:Qty : 1 on 06/24/2020 by Madi Kaur MD at OR [facility] [place] Right: Head SYNTHES MAXILLOFACIAL 421.521 / / Screw Ti Lo Pro Sd 4mm 400.834 - [id number] Implanted:Qty : 7 on 06/24/2020 by Madi [...] Agents on File Name Relationship Healthcare Agent [facility] p Communication Aimee Lam Spouse Health Care Agent Care Teams Adding Machine Servicer Relationship Specialty Start Date End Date Apolinar Wayne DO [address] [place] [address] PCP - General Internal Medicine 11/15/23 documented as of this encounter
--- OUTSIDE RECORDS SUMMARY | 2024-04-10 19:12 | External Medical Summary | Summary of Care ---
Author Name Unknown Organization [facility] Address [address] [place] [address] Phone [phone] Care Team Providers Care Drywall Installer Name Role Phone Apolinar Wayne DO Primary Care Provider [phone] Reason for Visit * Reason Onset Date Comments Advice 03/15/2024 Encounter Details Date Type Department Care Team (Late st Contact Info) Description 03/15/2024 Telephone Hematology/Oncology [facility] [place] [address] [place] [phone] Fernando Solo MD 200 [facility] [place] [address] Advice Allergies Active Allergy Reactions Criticality Noted [...] 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 06/27/2018 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 Simental office @ [phone] * Telephone Encounter - Jefferson Alvarado RN [...] 3:40 PM EST Office Visit Family Practice [address] [place] [address] 293 [place] [address] Apolinar Wayne, [address] [place] [address] 03/16/2024 3:45 PM EST Pharmacy Pharmacy Hematology Oncology [facility] [address] [place] [address] [facility] [place], [facility] Hem/Onc [address] [place] [address] Glioblastoma (HCC)* 03/20/2024 2:15 PM EST Scheduled Telephone Care Coordination and Integration [address] [place] [address] Mary Jane Valdez, Community Health Control System Manager [facility] [place] [address] 03/27/2024 12:00 PM EST Scheduled Telephone Care Coordination and Integration [address] [place] [address] Mary Jane Valdez, Community Health Control System Manager [address] [place] [address] 03/27/2024 1:40 PM EST Office Visit Family Practice [address] [place] [address] 293 [place] [address] Apolinar Wayne, [address] [place] [address] 04/02/2024 12:30 PM EST Home Visit [facility] [address] [place] [address] Betzy Vega, RN [address] [place] [address] 04/03/2024 9:30 AM EST Scheduled Telephone Care Coordination and Integration [address] [place] [address] Mary Jane Valdez, Community Health Control System Manager [address] [place] [address] 04/13/2024 3:45 PM EST Pharmacy Pharmacy Hematology Oncology [facility] [address] [place] [address] [facility] [place], [facility] Hem/Onc [address] [place] [address] 05/21/2024 2:30 PM EST Office Visit Urology Garima Meyers [address] [place] [address] Michelle Rodriguez PA-C [address] [place] [address] Scheduled Procedures Name Priority Associated Diagnoses Date/Ti [...] 08/12/2021, Additional history exists HbA1c 07/30/2024 01/31/2024, 08/2 11/2023, 08/09/2023, Additional history exists Colonoscopy 11/01/2024 11/02/2019, [...] this encounter Medical Devices Implanted Type Area Centrifugal Casting Machine Tender Device Identifier Shelf Expiration Date Model / Serial / Lot Graft Lyoplant 5.0x5.0cm 2x2 - [id number] Implanted:Qty : 1 on 06/24/2020 by Madi Kaur MD at [facility] Right: Head B ALICEA : AESCULAP 11/18/2024 [id number] / / [id number] Graft Lyoplant 5.0x5.0cm 2x2 - [id number] Implanted:Qty : 1 on 06/24/2020 by Madi Kaur MD at [place] [facility] B ALICEA : AESCULAP [id number] 11/18/2024 [id number] / [id number] / [id number] Graft Lyoplant 5.0x5.0cm 2x2 - [id number] Implanted:Qty : 1 on 06/24/2020 by Madi Kaur MD at OR [facility] Right: Head B ALICEA : AESCULAP 06/24/2020 [id number] / / [id number] Graft Lyoplant 5.0x5.0cm 2x2 - [id number] Implanted:Qty : 1 on 06/24/2020 by Madi Kaur MD at OR [facility] B ALICEA : AESCULAP [id number] 11/18/2024 [id number] / [id number] / [id number] Plate Ti Lo Pro Str 2h 421.502 - [id number] Implanted:Qty : 2 on 06/24/2020 by Madi Kaur MD at OR [facility] Right: Head SYNTHES MAXILLOFACIAL 421.502 / / Plate Bx Ti [id number] 4h 421.521 - [id number] Implanted:Qty : 1 on 06/24/2020 by Madi Kaur MD at OR [facility] Right: Head SYNTHES MAXILLOFACIAL 421.521 / / Screw Ti Lo Pro Sd 4mm 400.834 - [id number] Implanted:Qty : 7 on 06/24/2020 by Madi Kaur MD at OR [facility] Right: Head SYNTHES MAXILLOFACIAL 400.834 / / [...] Care Agent [phone] [id number] (Home) Care Teams Drywall Installer Relationship Specialty Start Date End Date Apolinar Wayne DO [address] [place] [address] PCP - General Internal Medicine 11/15/23 documented as of this encounter
--- OUTSIDE RECORDS SUMMARY | 2024-04-10 19:13 | External Medical Summary | Summary of Care ---
Author Name Unknown Organization [facility] Address [address] [place] [address] Phone [phone] Care Team Providers Care Associate Dean Of Women Name Role Phone Apolinar Wayne DO Primary Care Provider [phone] Reason for Visit * Reason Onset Date Comments Patient Assistance Program 02/29/2024 24 Giulia Roque Encounter Details Date Type Department Care Team (Late st Contact Info) Description 02/29/2024 Telephone Pharmacy Hematology Oncology [facility] [place], [place] [address] [place] [address] Tiffanie Disla, [facility] [address] [place] [address] Patient Assistance Program (24 Krys Bermudez... Allergies Active Allergy Reactions Criticality Noted Date Comments Erythromycin 07/02/1998 GI upset Guaifenesin & Derivatives 03/18/1997 nucofed documented as of this encounter (statuses as of 03/13/2024) Medications BD Pen Needle Altagracia U/F 32G [...] the [place]). 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 Pulmonary hypertension 10/10/2018 Diabetes 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 06/27/2018 senior living (current) use of insulin 10/27/2017 History of [...] as of this encounter (statuses as of 03/13/2024) Resolved Problems Problem Noted Date Diagnosed Date [...] as of this encounter (statuses as of 03/13/2024) Immunizations Name Administration Dates Next Due COVID-19 mRNA, LNP-s, No Pre serve, 2-Dose Series (Gameyola) 03/10/2021,06/07/2020,05/17/2020 COVID-19, LNP-s, No Preserve , Chandler-sucrose, Ages 12+ (Pfizer) 11/17/2021 COVID-19, MRNA-LNP, PF, 30 M CG/0.3 mL, 12 YRS AND ABOVE, IM ([email or web address]) 01/17/2024,03/08/2023 Covid-19, Mrna, Lnp-s, Pf, B ivalent, 30 Mcg, IM, 12 yrs and above (Gameyola) 04/13/2022 H1N1 2009 Influenza, IM 12/10/2019,04/01/2009 Pneumococcal [...] Follow up: 1 week Krys Staley Medication Medical Coding Instructor 03/13/2024.1:36 PM * Telephone Encounter - Krys [...] Follow up: 2-4 days Krys Staley Medication Medical Coding Instructor 03/09/2024.2:38 PM * Telephone Encounter - Krys Staley OSA - 03/07/2024 11:08 AM EST Patient Assistance Name of Medication: GLEOSTINE 100 MG CAPSULE Was patient spoken to: : NO Type of assistance: no foundations open at this time,pace does not cover drug, spoke with patients she stated they should be within the income for Pharmacy sloan, emailed application to [email or web address] she will send back with income documents once received will send for review. Applications mailed: : No Follow up: 2-4 days Krys Staley Medication Medical Coding Instructor 03/07/2024.11:09 AM * Telephone Encounter - Krys [...] Follow up: 2-4 days Krys Staley Medication Medical Coding Instructor 03/05/24.8:32 AM * Telephone Encounter - Krys [...] Follow up: 2-4 days Krys Staley Medication Medical Coding Instructor 03/01/24.3:45 PM * Telephone Encounter - Tiffanie Disla [facility] - 02/29/2024 10:22 AM EST Hello, Patient to see Dr Solo in 1-2 weeks with tentative plan to start lomustine after visit. I see prior to patient's surgery he was working with [facility] for assistance and was also willing to payout of pocket for first fill. Can we please re-visit assistance so we have in place prior to needing to start? 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 Thanks! Tiffanie Disla, PharmD Ambulatory Clinical Pharmacist | Oral Chemotherapy Clinic [facility] 02/29/2024, 10:23 AM Electronically signed by Tiffanie Disla [facility] at 02/29/2024 10:24 AM EST documented in this encounter Plan of Treatment Upcoming Encounters Date Type Department Care Team (Late st Contact Info) Description 03/13/2024 3:30 PM EST Scheduled Telephone Care Coordination and Integration [address] [place] [address] Mary Jane Valdez, Community Health Registered Nurse [address] [place] [address] 03/15/2024 9:15 AM EST Office Visit Hematology/Oncology [facility] [address] [facility] [place] [phone] Fernando Solo MD 200 [facility] [place] [address] 03/16/2024 3:40 PM EST Office Visit Family Practice [address] [place] [address] [address] [place] [address] Apolinar Wayne DO 293 [facility] [place] [address] 03/16/2024 3:45 PM EST Pharmacy Pharmacy Hematology Oncology [facility] [address] [place] [address] [facility] Hem/Onc [address] [place] [address] 03/20/2024 2:15 PM EST Scheduled Telephone Care Coordination and Integration [address] [place] [address] Mary Jane Valdez, Community Health Registered Nurse [address] [place] [address] 03/27/2024 12:00 PM EST Scheduled Telephone Care Coordination and Integration [address] [place] [address] Mary Jane Valdez, Pending Sale To [facility] Registered Nurse [address] [place] [address] 03/27/2024 1:40 PM EST Office Visit Family Practice [address] [place] [address] [address] [place] [address] Apolinar Wayne, [address] [place] [address] 04/03/2024 9:30 AM EST Scheduled Telephone Care Coordination and Integration [address] [place] [address] Mary Jane Valdez, Pending Sale To [facility] Registered Nurse [address] [place] [address] 05/21/2024 2:30 PM EST Office Visit Urology Garima Meyers [address] [place] [address] Michelle Rodriguez PA-C [address] [place] [address] Scheduled Procedures Name Priority Associated Diagnoses Date/Ti [...] this encounter Medical Devices Implanted Type Area Gasoline Tractor Operator Device Identifier Shelf Expiration Date Model / Serial / Lot Graft Lyoplant 5.0x5.0cm 2x2 - [id number] Implanted:Qty : 1 on 06/24/2020 by Madi Kaur MD at [place] [facility] Right: Head B ALICEA : AESCULAP 11/18/2024 [id number] / / [id number] Graft Lyoplant 5.0x5.0cm 2x2 - [id number] Implanted:Qty : 1 on 06/24/2020 by Madi Kaur MD at [place] [facility] B ALICEA : AESCULAP [id number] 11/18/2024 [id number] / [id number] / [id number] Graft Lyoplant 5.0x5.0cm 2x2 - [id number] Implanted:Qty : 1 on 06/24/2020 by Madi Kaur MD at [place] [facility] Right: Head B ALICEA : AESCULAP 06/24/2020 [id number] / / [id number] Graft Lyoplant 5.0x5.0cm 2x2 - [id number] Implanted:Qty : 1 on 06/24/2020 by Madi Kaur MD at [place] [facility] [place] B ALICEA : AESCULAP [id number] 11/18/2024 [id number] / [id number] / [id number] Plate Ti Lo Pro Str 2h 421.502 - [id number] Implanted:Qty : 2 on 06/24/2020 by Madi Kaur MD at [place] [facility] Right: Head SYNTHES MAXILLOFACIAL 421.502 / / Plate Bx Ti [id number] 4h 421.521 - [id number] Implanted:Qty : 1 on 06/24/2020 by Madi Kaur MD at [place] [facility] Right: Head SYNTHES MAXILLOFACIAL 421.521 / / Screw Ti Lo Pro Sd 4mm 400.834 - [id number] Implanted:Qty : 7 on 06/24/2020 by Madi [...] Agents on File Name Relationship Healthcare Agent [facility] Communication Aimee Lam Spouse Health Care Agent Care Teams Associate Dean Of Women Relationship Specialty Start Date End Date Apolinar Wayne DO [address] [place] [address] PCP - General Internal Medicine 11/15/23 documented as of this encounter"
--- OUTSIDE RECORDS SUMMARY | 2024-04-10 19:13 | External Medical Summary | Summary of Care ---
Author Name Unknown Organization [facility] Address [address] [place] [address] Phone [phone] Care Team Providers Care Thread Clipper Name Role Phone Apolinar Wayne DO Primary Care Provider [phone] Reason for Visit * Reason Onset Date Comments Advice 03/06/2024 Encounter Details Date Type Department Care Team (Late st Contact Info) Description 03/06/2024 Telephone Family Practice [address] [facility] [place] [address] [place] [address] Apolinar Wayne DO [address] [place], [place] [id number] Advice Allergies Active Allergy Reactions Criticality Noted Date Comments Erythromycin 07/02/1998 GI upset Guaifenesin & Derivatives 03/18/1997 nucofed documented as of this encounter (statuses as of 03/12/2024) Medications BD Pen Needle Altagracia U/F 32G [...] by mouth every afternoon. (get from the [facility]) 04/15/19 22 Active Vitamin D3 25 MCG [...] Capsule 3 4 6:21 PM EDT 12/21/19 Active Valtoco 10 MG Dose 10 MG/0.1ML Nasal Liquid (diazePAM)Indicat ions:Localization -related epilepsy, intractable (HCC) Administer 10 mg into nostril as needed (seizures lasting longer than 3 minutes). 1 Each 1 4 2:07 PM EDT 12/26/19 Active LORazepam 0.5 MG Oral Tablet (Ativan)Indicatio ns:Anxiety Take 1 Tablet by mouth 3 times a day as needed for Anxiety. 60 Tablet 4 1:06 PM EDT 12/30/19 Active Additional Information Patient taking differently:0.5 mg Oral TID PRN, Anxiety,JUST FOR MRI, Reported on 03/09/2024 Ondansetron HCl 8 MG Oral Tablet (Zofran)Indicatio [...] 60 Tablet 4 4:13 PM EST 02/19/20 Active Insulin Glargine [...] by mouth in the morning. (From the [place]). 90 Tablet 3 05/05/19 24 024 Discontin ued(Medic ation List Clean Up) Divalproex Sodium 250 MG Oral Tablet Delayed Release (Depakote DR) TAKE TWO TABLETS BY MOUTH EVERY MORNING AND THREE TABLETS IN THE EVENING 450 Tablet 1 4 5:19 PM EDT 09/14/19 24 024 Discontin ued(Medic ation List Clean Up) levETIRAcetam 500 MG Oral Tablet (Keppra)Indicatio ns:Glioblastoma (HCC) Take 1 Tablet by mouth in the morning and 1 Tablet before bedtime. 200 Tablet 3 4 1:01 PM EST 11/10/19 24 024 Discontin ued(Medic ation List Clean Up) Losartan Potassium 100 MG Oral Tablet (Cozaar) TAKE ONE TABLET BY MOUTH EVERY MORNING 100 Tablet 3 4 2:12 PM EDT 01/02/20 24 024 Discontin ued(Medic ation List Clean Up) Docusate Sodium 50 MG Oral Capsule (Colace)Indicatio ns:Glioblastoma (HCC) Take 1 Capsule by mouth in the morning and 1 Capsule before bedtime. 60 Capsule 3 01/06/20 24 024 Discontin ued(Medic ation List Clean Up) amLODIPine Besylate 10 MG Oral Tablet (Norvasc)Indicati ons:HTN, goal below 140/90 TAKE ONE TABLET BY MOUTH EVERY DAY 90 Tablet 3 4 12:59 PM EST 01/23/20 24 024 Discontin ued(Medic ation List Clean Up) dexAMETHasone 1 MG Oral Tablet take 1 tablet by mouth every 12 hours 60 Tablet 4 4:13 PM EST 02/19/20 24 024 Discontin ued(Medic ation List Clean Up) Melatonin 3 MG Oral Tablet (FT Melatonin) take 2 tablet by mouth at bedtime 60 Tablet 02/19/20 24 024 Discontin ued(Medic ation List Clean Up) OLANZapine 10 MG Oral Tablet (zyPREXA) take 1 tablet by mouth at bedtime as needed for insomnia 15 Tablet 4 4:13 PM EST 02/19/20 24 024 Discontin ued(Medic ation List Clean Up) Propranolol HCl 10 MG Oral Tablet (Inderal) tkae 1/2 tablet by mouth 3 times daily 45 Tablet 4 4:13 PM EST 02/19/20 24 024 Discontin ued(Medic ation List Clean Up) Carboxymethylcell ulose Sodium 0.5 % Ophthalmic Solution (Refresh Tears) instill 1 drop into both eyes 4 times daily as needed for dry eyes 15 mL 02/19/20 24 024 Discontin ued(Medic ation List Clean Up) Sennosides 8.6 MG Oral Tablet (SM Senna Laxative) take 2 tablets by mouth at bedtime 60 Tablet 02/19/20 24 024 Discontin ued(Medic ation List Clean Up) documented as of this encounter (statuses as of 03/12/2024) Active Problems Problem Noted Date Diagnosed Date PTSD (post-traumatic stress disorder) 06/11/2022 Current moderate episode of major depressive disorder without prior episode 04/15/2021 Gastro-esophageal reflux disease without esophag itis 04/15/2021 Localization-related epilepsy 11/13/2020 Encounter for antineoplastic chemotherapy 2020 Claustrophobia 08/21/2020 Glioblastoma 06/29/2020 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 Pulmonary hypertension 10/10/2018 Diabetes 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 06/27/2018 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 01/17/2024,03/08/2023 Covid-19, Mrna, Lnp-s, Pf, B ivalent, 30 Mcg, IM, 12 yrs and above (Augment) 04/13/2022 H1N1 2009 Influenza, IM 12/10/2019,04/01/2009 Pneumococcal [...] Miscellaneous Notes * Telephone Encounter - Adilia Akbar, [facility] - 03/08/2024 10:00 AM EST I reached out to patient's on 03/06, but no answer. Will try again today. * Telephone Encounter - Apolinar Wayne DO - 03/06/2024 7:32 PM EST No UTI on urine testing at the office and while hospitalized. Need to see if glucose is up. May need to decrease Empagliflozin. Need med rec done to see what he is currently taking post hospitalization. Recommend pads for urinary frequency. * Telephone Encounter - Rain Yañez RN - 03/06/2024 12:40 PM EST Completed JOSELIN call/ hospital discharge follow up. Secured JOSELIN appt on 03/16. Patient was unable to come any sooner (first available was 03/13) and the also only wants to see Dr. Wayne. Concerns of urinary frequency and urgency and multiple incontinent episodes, even using briefs and pads. states when he does go, it is very small amounts. Denies fevers and hematuria. UA from [facility] on 03/02: [facility] home health has been referred by [facility] -- I spoke with them and they will fast track the referral as the is extremely overwhelmed with caring for the patient. Also encouraged her [facility]. Adilia, pharm D will be completing the med rec later this afternoon as there have been multiple changes from [facility] and [facility] [I.e. increasing lantus, and adding multiple sleep aids] States Ga came on 02/27- but has no follow up scheduled? Also, neurosurgery follow up had to be rescheduled due to patient being hospitalized. is working on getting that coordinated. Dr. Wayne- additional recommendations? Send [facility] for urine sample? [facility]- please update me with the schedule of visits and call the , as she is confused to your level of involvement. Thank you. documented in this encounter Plan of Treatment Upcoming Encounters Date Type Department Care Team (Late st Contact Info) Description 03/12/2024 3:45 PM EST Pharmacy Pharmacy Hematology Oncology [facility] [address] [place] [address] [facility] Hem/Onc [address] [place] [address] 03/13/2024 3:30 PM EST Scheduled Telephone Care Coordination and Integration [address] [place] [address] Mary Jane Valdez, Community Health Press Operator Printing [address] [place] [address] 03/15/2024 9:15 AM EST Office Visit Hematology/Oncology [facility] [address] [place] [phone] Fernando Solo MD [address] [place] [address] 03/16/2024 3:40 PM EST Office Visit Family Practice [address] [place] [address] [address] [place] [address] Apolinar Wayne, [address] [place] [address] 03/20/2024 2:15 PM EST Scheduled Telephone Care Coordination and Integration [address] [place] [address] Mary Jane Valdez, Community Health [employer] [address] [place] [address] 03/27/2024 12:00 PM EST Scheduled Telephone Care Coordination and Integration [address] [place] [address] Mary Jane Valdez, Community Health Press Operator Printing [address] [place] [address] 03/27/2024 1:40 PM EST Office Visit Family Practice [address], [place] [address] [place] [phone] Apolinar Wayne, 293 [facility] [address] 04/03/2024 9:30 AM EST Scheduled Telephone Care Coordination and Integration [address] [place] [address] Mary Jane Valdez, Community Health Press Operator Printing [address] [place] [address] Scheduled Procedures Name Priority Associated Diagnoses Date/Ti [...] this encounter Medical Devices Implanted Type Area [employer] Device Identifier Shelf Expiration Date Model / Serial / Lot Graft Lyoplant 5.0x5.0cm 2x2 - [id number] Implanted:Qty : 1 on 06/24/2020 [place] [facility] [place] Head B ALICEA : AESCULAP 11/18/2024 [id number] / / [id number] Graft Lyoplant 5.0x5.0cm 2x2 - [id number] Implanted:Qty : 1 on 06/24/2020 by Madi Kaur MD [place] [facility] B ALICEA : AESCULAP [id number] 11/18/2024 [id number] / [id number] / [id number] Graft Lyoplant 5.0x5.0cm 2x2 - [id number] Implanted:Qty : 1 on 06/24/2020 by Madi Kaur [place] [facility] [place]: Head B ALICEA : AESCULAP 06/24/2020 [id number] / / [id number] Graft Lyoplant 5.0x5.0cm 2x2 - [id number] Implanted:Qty : 1 on 06/24/2020 by Madi Kaur MD [place] [facility] B ALICEA : ARIAN [id number] 11/18/2024 [id number] / [id number] / [id number] Plate Ti Lo Pro Str 2h 421.502 - [id number] Implanted:Qty : 2 on 06/24/2020 by Madi Kaur MD [place] [facility] [place]: Head SYNTHES MAXILLOFACIAL 421.502 / / Plate Bx Ti [id number] 4h 421.521 - [id number] Implanted:Qty : 1 on 06/24/2020 by Madi Kaur MD [place] [facility] [place]: Head SYNTHES MAXILLOFACIAL 421.521 / / Screw Ti Lo Pro Sd 4mm 400.834 - [id number] Implanted:Qty : 7 on 06/24/2020 by Madi [...] Lam Spouse Health Care Agent Care Teams Thread Clipper Relationship Specialty Start Date End Date Apolinar Wayne DO [address] [place] [address] PCP - General Internal Medicine 11/15/23 documented as of this encounter
--- OUTSIDE RECORDS SUMMARY | 2024-04-10 19:13 | External Medical Summary | Summary of Care ---
Author Name Unknown Organization [facility] Address [address] [place] [address] Phone [phone] Care Team Providers Care Banquet Pilot Name Role Phone Apolinar Wayne DO Primary Care Provider [phone] Reason for Visit * Reason Comments Dosage Adjustment Via Phone (anticoag Cl inic) Encounter Details Date Type Department Care Team (Late st Contact Info) Description 03/08/2024 10:40 AM EST Telemedicine Family Practice 65 [facility] [address] [place] [phone] College, Pharmacist [address] [id number] Glioblastoma ([facility])* Allergies Active Allergy Reactions Criticality Noted Date Comments Erythromycin 07/02/1998 GI upset Guaifenesin & Derivatives 03/18/1997 nucofed documented as of this encounter (statuses as of 03/11/2024) Medications BD Pen Needle Altagracia U/F 32G [...] goal of less than 7.0% ([facility]) Use as directed every 14 [...] 01/06/2024 1:06 PM EDT 12/30/19 24 Active Additional Information Patient taking differently:0.5 mg [...] Oral Tablet Take by mouth. 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 Pulmonary hypertension 10/10/2018 Diabetes 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 06/27/2018 skilled nursing (current) use of insulin 10/27/2017 History of [...] as of this encounter (statuses as of 03/11/2024) Resolved Problems Problem Noted Date Diagnosed Date [...] as of this encounter (statuses as of 03/11/2024) Immunizations Name Administration Dates Next Due COVID-19 mRNA, LNP-s, No Pre serve, 2-Dose Series ([employer]) 03/10/2021,06/07/2020,05/17/2020 COVID-19, LNP-s, No Preserve , Chandler-sucrose, Ages 12+ (Pfizer) 11/17/2021 COVID-19, MRNA-LNP, PF, 30 M CG/0.3 mL, 12 YRS AND ABOVE, IM (PFIZER-Comirnaty) 01/17/2024,03/08/2023 Covid-19, Mrna, Lnp-s, Pf, B ivalent, 30 Mcg, IM, 12 yrs and above ([employer]) 04/13/2022 H1N1 2009 Influenza, IM 12/10/2019,04/01/2009 Pneumococcal [...] in this encounter Progress Notes * Adilia Akbar RPh - 03/08/2024 10:47 AM EST 10:00 am - Called patient - Aimee asked to call back at 12:30. 12:32 pm - called, busy signal. Called again at 1 pm and sent Bloodhound message. Will try again tomorrow Adilia Shirley RPh Clinical Pharmacist - Electrician Apprentice [facility] 03/08/2024, 10:47 AM documented in this encounter Plan of Treatment Upcoming Encounters Date Type Department Care Team (Late st Contact Info) Description 03/12/2024 3:45 PM EST Pharmacy Pharmacy Hematology Oncology [facility] [address] [place] [address] [facility], [facility] Hem/Onc [address] [place] [address] 03/13/2024 3:30 PM EST Scheduled Telephone Care Coordination and Integration [address] [place] [address] Mary Jane Valdez, Community Health Beauty Sales Consultant [address] [place] [address] 03/15/2024 9:15 AM EST Office Visit Hematology/Oncology [facility] 200 [facility] [place] [address] Fernando Solo MD 200 [place] [address] 03/16/2024 3:40 PM EST Office Visit Family Practice [address] [place] [address] [address] [place] [address] Apolinar Wayne, [address] [place] [address] 03/20/2024 2:15 PM EST Scheduled Telephone Care Coordination and Integration [address] [place] [address] Mary Jane Valdez, Community Health Beauty Sales Consultant [address] [place] [address] 03/27/2024 12:00 PM EST Scheduled Telephone Care Coordination and Integration [address] [place] [address] Mary Jane Valdez, Community Health Beauty Sales Consultant [address] [place] [address] 03/27/2024 1:40 PM EST Office Visit Family Practice [address] [place] [address] [address] [place] [address] Apolinar Wayne, [address] [place] [address] 04/03/2024 9:30 AM EST Scheduled Telephone Care Coordination and Integration [address] [place] [address] Mary Jane Valdez, Community Health Beauty Sales Consultant [address] [place] [address] Scheduled Procedures Name Priority Associated Diagnoses Date/Ti [...] this encounter Medical Devices Implanted Type Area National Flatbed Truck Driver Device Identifier Shelf Expiration Date Model / Serial / Lot Graft Lyoplant 5.0x5.0cm 2x2 - [id number] Implanted:Qty : 1 on 06/24/2020 by Madi Kaur MD at OR [facility] Right: Head B ALICEA : AESCULAP 11/18/2024 [id number] / / [id number] Graft Lyoplant 5.0x5.0cm 2x2 - [id number] Implanted:Qty : 1 on 06/24/2020 by Madi Kaur MD at OR [facility] B ALICEA : AESCULAP [id number] 11/18/2024 [id number] / [id number] / [id number] Graft Lyoplant 5.0x5.0cm 2x2 - [id number] Implanted:Qty : 1 on 06/24/2020 by Madi Kaur MD at OR [facility] Right: Head B ALICEA : AESCULAP 06/24/2020 [id number] / / [id number] Graft Lyoplant 5.0x5.0cm 2x2 - [id number] Implanted:Qty : 1 on 06/24/2020 by Madi Kaur MD at OR [facility] B ALICEA : AESCULAP [id number] 11/18/2024 [id number] / [id number] / [id number] Plate Ti Lo Pro Str 2h 421.502 - [id number] Implanted:Qty : 2 on 06/24/2020 by Madi Kaur MD at OR [facility] Right: Head SYNTHES MAXILLOFACIAL 421.502 / / Plate Bx Ti [id number] 4h 421.521 - [id number] Implanted:Qty : 1 on 06/24/2020 by Madi Kaur MD at OR [facility] Right: Head SYNTHES MAXILLOFACIAL 421.521 / / Screw Ti Lo Pro Sd 4mm 400.834 - [id number] Implanted:Qty : 7 on 06/24/2020 by Madi Kaur MD at OR [facility] Right: Head SYNTHES MAXILLOFACIAL 400.834 / / [...] Agents on File Name Relationship Healthcare Agent [facility] Communication Aimee Lam Spouse Health Care Agent Care Teams Banquet Pilot Relationship Specialty Start Date End Date Apolinar Wayne DO [address] [place] [address] PCP - General Internal Medicine 11/15/23 documented as of this encounter
--- OUTSIDE RECORDS SUMMARY | 2024-04-10 19:13 | External Medical Summary | Summary of Care ---
Author Name Unknown Organization [facility] Address [address] [place] [address] Phone [phone] Care Team Providers Care Charge Account Identification Clerk Name Role Phone José Manuel Wayne DO Primary Care Provider [phone] Reason for Visit * Reason Comments Medication Refill Encounter Details Date Type Department Care Team (Late st Contact Info) Description 03/09/2024 Refill Family Practice [address] [place] [address] [place] [address] José Manuel Wayne DO [address] [place], [place] [phone] Anxiety Allergies Active Allergy Reactions Criticality Noted Date [...] by mouth every afternoon. (get from the [place]) 04/15/19 Active Vitamin D3 25 MCG (1000 [...] for Anxiety. 60 Tablet 03/12/20 24 Active LORazepam 0.5 MG Oral Tablet (Ativan)Indicatio ns:Anxiety Take 1 Tablet by mouth 3 times a day as needed for Anxiety. 60 Tablet 4 1:06 PM EDT 12/30/19 024 Discontin ued(Refil l) documented as of this [...] mRNA, LNP-s, No Pre serve, 2-Dose Series ([employer]) 03/10/2021,06/07/2020,05/17/2020 COVID-19, LNP-s, No Preserve , Chandler-sucrose, Ages 12+ (Pfizer) 11/17/2021 COVID-19, MRNA-LNP, PF, 30 M CG/0.3 mL, 12 YRS AND ABOVE, IM ([employer]-Comirnaty) 01/17/2024,03/08/2023 Covid-19, Mrna, Lnp-s, Pf, B ivalent, 30 Mcg, IM, 12 yrs and above ([employer]) 04/13/2022 H1N1 2009 Influenza, IM 12/10/2019,04/01/2009 Pneumococcal [...] documented in this encounter Miscellaneous Notes * Addendum Note - José Manuel Wayne DO - 03/12/2024 5:14 PM ESTAddended by: JOSÉ MANUEL WAYNE on: 03/12/2024 05:14 PM Modules accepted: Orders * Telephone Encounter - José Manuel Wayne DO - 03/12/2024 5:12 PM EST I have reviewed the patients controlled substance dispensing history in the Prescription Drug Monitoring Program in compliance with the [facility] regulations before prescribing a controlled substance. Last Tox Screen Results: No results found. However, due to the size of the patient record, not all encounters were searched.Please check Results Review for a complete set of results. Due 02/03 * Telephone Encounter - Johanne Collier, [facility] - 03/12/2024 5:10 PM EST No prescriptions requested or ordered in this encounter * Telephone Encounter - Sia Ambrocio [facility] - 03/10/2024 10:23 PM EST Pending Prescriptions: Disp Refills LORazepam 0.5 MG Oral Tablet (Ativan) 60 Tab*0 Sig: Take 1 Tablet by mouth 3 times a day as needed for Anxiety. * Telephone Encounter - Sia Ambrocio [facility] - 03/10/2024 10:22 PM EST I have reviewed the patients controlled substance dispensing history in the Prescription Drug Monitoring Program in compliance with the [facility] regulations before prescribing a controlled substance. PDMP checked on 03/10/2024. Pending Prescriptions: Disp Refills LORazepam 0.5 MG Oral Tablet (Ativan) 60 Tab*0 Sig: Take 1 Tablet by mouth 3 times a day as needed for Anxiety. Last Visit: 03/02/2024 (in office), 03/08/2024 (telemedicine) Next Visit: 03/16/2024 Date medication was last filled: 01/05 Date medication is due for refill: 02/05 Pharmacy: [facility] Is this request for a controlled substance? Yes and Urine Drug Screen Not completed Toxicology results: No results found. However, due to the size of the patient record, not all encounters were searched.Please check Results Review for a complete set of results. Please approve if appropriate. Thanks, Sia Ambrocio, PharmD Clinical Pharmacist [facility] [phone] 03/10/2024,10:22 PM documented in this encounter Plan of Treatment Upcoming Encounters Date Type Department Care Team (Late st Contact Info) Description 03/13/2024 3:30 PM EST Scheduled Telephone Care Coordination and Integration [address] [place] [address] Mary Jane Valdez, Community Health Petal Cutter [facility] [place] [address] 03/15/2024 9:15 AM EST Office Visit Hematology/Oncology [facility] [address] [place] [phone] Fernando Solo MD [address] [place] [address] 03/16/2024 3:40 PM EST Office Visit Family Practice [address] [place] [address] [address] [place] [address] José Manuel Wayne DO [address] [place] [address] 03/16/2024 3:45 PM EST Pharmacy Pharmacy Hematology Oncology [facility] [address] [place] [address] [facility], [facility] Hem/Onc [address] [place] [address] 03/20/2024 2:15 PM EST Scheduled Telephone Care Coordination and Integration [address] [place] [address] Mary Jane Valdez, Community Health Petal Cutter [address] [place] [address] 03/27/2024 12:00 PM EST Scheduled Telephone Care Coordination and Integration [address] [place] [address] Mary Jane Valdez, Community Health Petal Cutter [address] [place] [address] 03/27/2024 1:40 PM EST Office Visit Family Practice 65 [facility] [place] [address] [place] [address] José Manuel Wayne, [address] [place] [address] 04/03/2024 9:30 AM EST Scheduled Telephone Care Coordination and Integration [address] [place] [address] Mary Jane Valdez, Community Health Petal Cutter [address] [place] [address] 05/21/2024 2:30 PM EST Office Visit Urology Garima Meyers [address] [place] [address] Michelle Rodriguez PA-C [address] [place] [address] Scheduled Procedures Name Priority Associated Diagnoses Date/Ti [...] this encounter Medical Devices Implanted Type Area Inserting Press Operator Device Identifier Shelf Expiration Date Model / Serial / Lot Graft Lyoplant 5.0x5.0cm 2x2 - [id number] Implanted:Qty : 1 on 06/24/2020 by Madi Kaur MD at [place] [facility] [place] Right: Head B ALICEA : AESCULAP 11/18/2024 [id number] / / [id number] Graft Lyoplant 5.0x5.0cm 2x2 - [id number] Implanted:Qty : 1 on 06/24/2020 by Madi Kaur MD at OR [facility] [facility] B ALICEA : AESCULAP [id number] 11/18/2024 [id number] / [id number] / [id number] Graft Lyoplant 5.0x5.0cm 2x2 - [id number] Implanted:Qty : 1 on 06/24/2020 by Madi Kaur MD at OR [facility] Right: Head B ALICEA : AESCULAP 06/24/2020 [id number] / / [id number] Graft Lyoplant 5.0x5.0cm 2x2 - [id number] Implanted:Qty : 1 on 06/24/2020 by Madi Kaur MD at OR [facility] [place] B ALICEA : AESCULAP [id number] 11/18/2024 [id number] / [id number] / [id number] Plate Ti Lo Pro Str 2h 421.502 - [id number] Implanted:Qty : 2 on 06/24/2020 by Madi Kaur MD at OR [facility] [place] [place] Right: Head SYNTHES MAXILLOFACIAL 421.502 / / Plate Bx Ti [id number] 4h 421.521 - [id number] Implanted:Qty : 1 on 06/24/2020 by Madi Kaur MD at OR [facility] [place] Right: Head SYNTHES MAXILLOFACIAL 421.521 / / Screw Ti Lo Pro Sd 4mm 400.834 - [id number] Implanted:Qty : 7 on 06/24/2020 by Madi Kaur MD at OR [facility] Right: Head SYNTHES MAXILLOFACIAL 400.834 / / documented as of this encounter Visit Diagnoses Diagnosis Anxiety Anxiety state, unspecified documented in this encounter Advance Directives * [...] Lam Spouse Health Care Agent Care Teams Charge Account Identification Clerk Relationship Specialty Start Date End Date José Manuel Wayne DO [address] [place] [address] PCP - General Internal Medicine 11/15/23 documented as of this encounter
--- OUTSIDE RECORDS SUMMARY | 2024-04-10 19:13 | External Medical Summary | Summary of Care ---
Author Name Unknown Organization [facility] Address [address] [place] [address] Phone [phone] Care Team Providers Care Health Care Administrator Name Role Phone Apolinar Wayne DO Primary Care Provider [phone] Reason for Referral * Evaluate & Treat - Unlimited Visits (Within 10 days (routine)) - Authorized Specialty Diagnoses / Procedures Referred By Andrez nicolas Referred To Contact Pole Classifier Diagnoses HTN, goal below 140/90 Betzy Vega, HECTOR [address] [place] [address] Phone: tel: fax: Referral ID Status Reason Start Date Expiration Date Visits Requested Visits Authorized [id number] Authorized Specialty Services Required 4 [phone] Question Answer Referral Priority Within 10 days (routine) Where should this appointment be scheduled? External Program Type [facility] Current Health Device(s) Requested Pulse Ox, BP Cuff Alarm Settings Standard per protocol Comments Current Health Monitor Ordering Form: Method of Delivery: Vendor Supplied Enrollment Diagnosis: Primary Cardiac Condition (Non-CHF) Patient Requires Use of Felix: Yes Encounter Details Date Type Department Care Team (Late st Contact Info) Description 03/09/2024 2:30 PM EST Home Visit [facility], [facility] [address] [place] [address] Betzy Vega, HECTOR [address] [place] [address] HTN, goal below 140/90* Allergies Active Allergy Reactions Criticality Noted Date Comments Erythromycin 07/02/1998 GI upset Guaifenesin & Derivatives 03/18/1997 nucofed documented as of this encounter (statuses as of 03/09/2024) Medications BD Pen Needle Altagracia U/F 32G [...] goal of less than 7.0% ([facility]) Use as directed every 14 days . [...] AND EVENING MEALS 200 Tablet 3 4 11:00 AM EDT 05/17/19 24 025 Active [...] 4 2:07 PM EDT 12/26/19 24 Active LORazepam 0.5 MG Oral Tablet (Ativan)Indicatio ns:Anxiety Take 1 Tablet by mouth 3 times a day as needed for Anxiety. 60 Tablet 4 1:06 PM EDT 12/30/19 24 Active Additional [...] 10 mL 4 4:13 PM EST 02/20/20 Active Additional Information [...] morning. (From the [place]). 90 Tablet 3 05/05/19 24 024 Discontin [...] as of this encounter (statuses as of 03/09/2024) Active Problems Problem Noted Date Diagnosed Date [...] as of this encounter (statuses as of 03/09/2024) Resolved Problems Problem Noted Date Diagnosed Date [...] as of this encounter (statuses as of 03/09/2024) Immunizations Name Administration Dates Next Due COVID-19 mRNA, LNP-s, No Pre serve, 2-Dose Series ([employer]) 03/10/2021,06/07/2020,05/17/2020 COVID-19, LNP-s, No Preserve , Chandler-sucrose, [...] Sign Reading Time Taken Comments Blood Pressure 90/50 03/09/2024 1:17 PM EST Pulse - - Temperature 35.7 C (96.3 F) 03/09/2024 1:17 PM ES T Respiratory Rate - - Oxygen Saturation - - Inhaled Oxygen Concentration - - Weight - [...] Progress Notes * Betzy Vega RN - 03/09/2024 12:47 PM EST Current Concerns: Patient seen for JOSELIN#1- s/p [facility] 03/02/24- Orthostatic BP, hypoglycemia, Glioblastoma- status postresection([facility] ) Discharged home- 03/05/24 Has not been checking blood sugars regularly- reports the blood sugars have been sporadic. Encouraged to routinely take blood sugars with Aarti- new sensor placed last evening Medication review- bottle out Medications stopped Amlodipine, Clobetasol, Docusate sodium, Divalproex, Clotrimazole, Jardiance, Losartan. Medication changes- Zofran(only to be used during chemo)- Lorazepam- only to be used with MRI Not taking previous- Propanolol, Zyprexa- stopped. Discussion with - BP meds added back to patient on discharge per d/t PCP wanting patient to have. BP today- 90/54- Medications discontinued- All discontinued meds placed in box to be stored in a different place from current medications. Current Health BP cuff and spo2 monitor order placed. Epic reflects current medication regimen. TT to Dr. Wayne to make aware. is overwhelmed- currently has [facility] HH services PT/OT.ST- CARDIOVASCULAR PHYSICIAN ASSISTANT to be added to assist with bathing patient. Encouraged to contact [facility] to inquire about getting help in the home. Voices understanding. VS wnl Lungs clear bilaterally No sob noted but patient reports he intermittently gets short of breath when sitting in recliner. Spo2-98% RA No LE edema noted Voiding without difficulty- incontinence noted- wears briefs(new since surgery) Bowels wnl Appetite varies- does drink glucerna( reports [facility] more) Taking fluids Physical Exam: Physical Exam Constitutional: Appearance: Normal [...] of Systems: Review of Systems Constitutional: Negative. Respiratory: Positive for shortness of breath. Cardiovascular: Negative. Gastrointestinal: Negative. Genitourinary: Urinary incontinence noted Musculoskeletal: Positive for gait problem. Skin: Negative. Hematological: Negative. Psychiatric/Behavioral: Negative. Care Plan Goal Progress: Patient will remain free of falls. (Not Progressing) Start: 02/29/24 Expected End: 06/28/24 Goal Note Fall precipitated last utilization- BP discontinued at [facility]- added back to medications. Hypotensive 03/09- to discontinue meds. Educated with hypotension adds to risk of falls. Voices understanding. Patient will achieve & maintain fluid & electrolyte balance. (Progressing) Start: 12/13/23 Expected End: 12/23/24 Orders Placed: Plan Remote Patient Monitoring Referral Medications Given: Care Gaps: Care Gaps Care gaps closed this contact: Education (03/09/241725) Type of education: Clinical/disease (03/09/241725) documented in this encounter Plan of Treatment Upcoming Encounters Date Type Department Care Team (Late st Contact Info) Description 03/12/2024 3:45 PM EST Pharmacy Pharmacy Hematology Oncology [facility] [address] [place] [address] [facility], [facility] Hem/Onc [address] [place] [address] 03/13/2024 3:30 PM EST Scheduled Telephone Care Coordination and Integration [address] [place] [address] Mary Jane Valdez, Community Health Meal Cooker [address] [place] [address] 03/15/2024 9:15 AM EST Office Visit Hematology/Oncology [facility] [address] [place] [phone] Fernando Solo MD [address] [place] [address] 03/16/2024 3:40 PM EST Office Visit Family Practice [address] [place] [address] [address] [place] [address] Apolinar Wayne DO [address] [place] [address] 03/20/2024 2:15 PM EST Scheduled Telephone Care Coordination and Integration [facility] [place] [address] Mary Jane Valdze, Community Health Meal Cooker [address] [place] [address] 03/27/2024 12:00 PM EST Scheduled Telephone Care Coordination and Integration [address] [place] [address] Mary Jane Valdez, Community Health Meal Cooker [address] [place] [address] 03/27/2024 1:40 PM EST Office Visit Family Practice [address] [place] [address] [place] [address] Apolinar Wayne, [address] [place] [address] 04/03/2024 9:30 AM EST Scheduled Telephone Care Coordination and Integration [address] [place] [address] Mary Jane Valdez, Community Health Meal Cooker [address] [place] [address] Scheduled Procedures Name Priority Associated Diagnoses Date/Ti me COLONOSCOPY FLEXIBLE PROXIMAL DIAGNOSTIC Recall History of colonic polyps ESOPHAGOGASTRODUODENOSCOPY ( EGD), FLEXIBLE, TRANSORAL, DIAGNOSTIC Recall Hedrick's esophagus Scheduled Referrals Name Type Priority Associated Diagnoses Orde r Schedule REMOTE PATIENT MONITORING REFERRAL Referral Within 10 days (routine) HTN, goal below 140/90 Ordered: 03/09/2024 Health Maintenance Due Date Last Done Comments [...] this encounter Medical Devices Implanted Type Area Gin Operator Device Identifier Shelf Expiration Date Model / Serial / Lot Graft Lyoplant 5.0x5.0cm 2x2 - [id number] Implanted:Qty : 1 on 06/24/2020 [place] Madi [place] [facility] [place]: Head B [employer]ICE[employer] : AESCULAP 11/18/2024 [id number] / / [id number] Graft Lyoplant 5.0x5.0cm 2x2 - [id number] Implanted:Qty : 1 on 06/24/2020 by Madi Kaur MD [place] [facility] [place] B [employer]ICE[employer] : AESCULAP [id number] 11/18/2024 [id number] / [id number] / [id number] Graft Lyoplant 5.0x5.0cm 2x2 - [id number] Implanted:Qty : 1 on 06/24/2020 by Madi Kaur MD [place] [facility] [place]: Head B [employer] : AESCULAP 06/24/2020 [id number] / / [id number] Graft Lyoplant 5.0x5.0cm 2x2 - [id number] Implanted:Qty : 1 on 06/24/2020 by Madi Kaur MD [place] [facility] [place] B [employer]ICE[employer] : AESCULAP [id number] 11/18/2024 [id number] / [id number] / [id number] Plate Ti Lo Pro Str 2h 421.502 - [id number] Implanted:Qty : 2 on 06/24/2020 by Madi Kaur [place] [facility] [place]: Head SYNTHES MAXILLOFACIAL 421.502 / / Plate Bx Ti [id number] 4h 421.521 - [id number] Implanted:Qty : 1 on 06/24/2020 by Madi Kaur MD [place] [facility] [place]: Head SYNTHES MAXILLOFACIAL 421.521 / / Screw Ti Lo Pro Sd 4mm 400.834 - [id number] Implanted:Qty : 7 on 06/24/2020 by Madi Kaur MD [place] [facility] [place]: Head SYNTHES MAXILLOFACIAL 400.834 / / documented as of this encounter Visit Diagnoses Diagnosis HTN, goal below 140/90- Primary Unspecified essential hypertension documented in this encounter Advance Directives * [...] Spouse Health Care Agent Care Teams Health Care Administrator Relationship Specialty Start Date End Date Apolinar Wayne DO [address] [place] [address] PCP - General Internal Medicine 11/15/23 documented as of this encounter
--- OUTSIDE RECORDS SUMMARY | 2024-04-10 19:13 | External Medical Summary | Summary of Care ---
Author Name Unknown Organization [facility] Address [address] [place] [address] Phone [phone] Care Team Providers Care Gunite Mixer Name Role Phone Apolinar Wayne DO Primary Care Provider [phone] Reason for Visit * Reason Onset Date Comments Advice 03/15/2024 Encounter Details Date Type Department Care Team (Late st Contact Info) Description 03/15/2024 Telephone Hematology/Oncology [facility] [place] Mather [place] [address] [place] [phone] Fernando Solo MD 200 [facility] [place] [place] [address] Advice Allergies Active Allergy Reactions Criticality Noted [...] A1c goal of less than 7.0% ([facility]) Use as directed every 14 [...] nephropathy 06/27/2018 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 06/27/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 10/27/2017 History of [...] mRNA, LNP-s, No Pre serve, 2-Dose Series ([employer]) 03/10/2021,06/07/2020,05/17/2020 COVID-19, LNP-s, No Preserve , [...] 03/16/2024 3:40 PM EST Office Visit Family [facility] 65 [facility] [address] [place] [address] Apolinar Wayne, DO [address] [place] [address] 03/16/2024 3:45 PM EST Pharmacy Pharmacy Hematology Oncology [facility] [address] [place] [address] [facility] [place] Hem/Onc [address] [place] [address] 03/20/2024 2:15 PM EST Scheduled Telephone Care Coordination and Integration [address] [place] [address] Mary Jane Valdez, Community Health Dress Operator [address] [place] [address] 03/27/2024 12:00 PM EST Scheduled Telephone Care Coordination and Integration [address] [place] [address] Mary Jane Valdez, Community Health Dress Operator [address] [place] [address] 03/27/2024 1:40 PM EST Office Visit Family Practice 65 [facility] [address] [place] [address] Apolinar Wayne, DO [address] [place] [address] 04/02/2024 12:30 PM EST Home Visit [facility], [facility] 132 [facility] [place] [address] Betzy Vega, HECTOR 132 [facility] [place] [address] 04/03/2024 9:30 AM EST Scheduled Telephone Care Coordination and Integration [facility] [place] [address] Mary Jane Valdez, Community Health Dress Operator [address] [place] [address] 05/21/2024 2:30 PM EST Office Visit Urology Garima Meyers [address] [place] [address] Michelle Rodriguez PA-C [address] [place] [address] Scheduled Procedures Name Priority Associated Diagnoses Date/Ti [...] this encounter Medical Devices Implanted Type Area Fisher Quahog Device Identifier Shelf Expiration Date Model / Serial / Lot Graft Lyoplant 5.0x5.0cm 2x2 - [id number] Implanted:Qty : 1 on 06/24/2020 by Madi Kaur MD at [place] [facility] [place] Right: Head B ALICEA : AESCULAP 11/18/2024 [id number] / / [id number] Graft Lyoplant 5.0x5.0cm 2x2 - [id number] Implanted:Qty : 1 on 06/24/2020 by Madi Kaur MD at OR [facility] B ALICEA : AESCULAP [id number] 11/18/2024 [id number] / [id number] / [id number] Graft Lyoplant 5.0x5.0cm 2x2 - [id number] Implanted:Qty : 1 on 06/24/2020 by Madi Kaur MD at OR [facility] Right: Head B ALICEA : AESCULAP 06/24/2020 [id number] / / [id number] Graft Lyoplant 5.0x5.0cm 2x2 - [id number] Implanted:Qty : 1 on 06/24/2020 by Madi Kaur MD at OR [facility] B ALICEA : AESCULAP [id number] 11/18/2024 [id number] / [id number] / [id number] Plate Ti Lo Pro Str 2h 421.502 - [id number] Implanted:Qty : 2 on 06/24/2020 by Madi Kaur MD at OR [facility] Right: Head SYNTHES MAXILLOFACIAL 421.502 / / Plate Bx Ti [id number] 4h 421.521 - [id number] Implanted:Qty : 1 on 06/24/2020 by Madi Kaur MD at OR [facility] Right: Head SYNTHES MAXILLOFACIAL 421.521 / / Screw Ti Lo Pro Sd 4mm 400.834 - [id number] Implanted:Qty : 7 on 06/24/2020 by Madi [...] Lam Spouse Health Care Agent Care Teams Gunite Mixer Relationship Specialty Start Date End Date Apolinar Wayne DO 293 [place] [address] PCP - General Internal Medicine 11/15/23 documented as of this encounter
--- OUTSIDE RECORDS SUMMARY | 2024-04-10 19:13 | External Medical Summary | Summary of Care ---
Author Name Unknown Organization [facility] Address [address] [place] [address] Phone [phone] Care Team Providers Care Monotype Mechanic Name Role Phone Apolinar Wayne DO Primary Care Provider [phone] Reason for Visit * Reason Comments Dosage Adjustment Via Phone (anticoag Cl inic) Follow Up Encounter Details Date Type Department Care Team (Late st Contact Info) Description 03/09/2024 1:00 PM EST Telemedicine Family Practice 65 [facility] [address] [place] [phone] College, Pharmacist [address] [address] Medication management* Allergies Active Allergy Reactions Criticality [...] by mouth every afternoon. (get from the CT) 04/15/19 Active Vitamin D3 25 MCG (1000 UT) Oral CapsuleIndication s:general health Take 1 Capsule by mouth. Active Centrum Adults Oral TabletIndications :general health Take 1 Tablet by mouth. Active FreeStyle Aarti 2 SensorIndications :Type 2 diabetes mellitus with hemoglobin A1c goal of less than 7.0% ([facility]) Use as directed every 14 days . [...] 4 1:06 PM EDT 12/30/19 24 024 Discontin ued(Refil l) documented as of [...] mRNA, LNP-s, No Pre serve, 2-Dose Series ([employer]P) 03/10/2021,06/07/2020,05/17/2020 COVID-19, LNP-s, No Preserve , Chandler-sucrose, Ages 12+ (Pfizer) 11/17/2021 COVID-19, MRNA-LNP, PF, 30 M CG/0.3 mL, 12 YRS AND ABOVE, IM ([employer]-Comirnaty) 01/17/2024,03/08/2023 Covid-19, Mrna, Lnp-s, Pf, B ivalent, 30 Mcg, IM, 12 yrs and above (AG&P) 04/13/2022 H1N1 2009 Influenza, IM 12/10/2019,04/01/2009 Pneumococcal [...] Akbar, [facility] - 03/09/2024 1:09 PM EST Medication Therapy Disease Management Clinic - Medication Reconciliation Encounter Type: discussed with patient's and [facility] Betzy yousif Med Bottles Available for Review: no - however G@H reviewed in the home Med Rec Reason: Fall Patient reports a recent fall. Fell at home in kitchen. Patient is taking medications in the following classes which could increase patient's risk of falls: Alpha blockers - tamsulosin Antiepileptics - levetiracetam, depakote Benzodiazepines - lorazepam Antihypertensives (only if hypotensive) - carvedilol, amlodipine, losartan Antihyperglycemics (only if hypoglycemic) - lantus, jardiance Other sedating medication - gabapentin Is vitamin D level within goal: unknown Has patient reported hypotension? yes Has patient reported hypoglycemia? no Did patient hit head? yes Is patient on any anticoagulant or antiplatelet medications?yes Has the patient used marijuana recently? no What other interventions for fall prevention are being utilized? none Transition of Care Date of Admission: 03/02/24 Date of Discharge: 03/05/24 Reason for Admission: fall/orthostatic hypotension Medication changes during admission/on discharge: Added: none Modified: tamsulosin and finasterde to bedtime, levetiracetam (500mg to 750mg), lantus from 16 to 10 units Discontinued: amlodipine, losartan, and jardiance (hypotension), divalproex (level subtherapeutic) Does the patient currently have all of their medications in their home? Yes [x] Preferred pharmacy reviewed/updated [x] Problem list reviewed [x] Allergies reviewed and updated if needed [x] Drug interaction check completed [x] HEDIS list addressed Immunizations indicated: Up to date Medication Organization/Adherence: Has home care nurse or caregiver: Yes Patient uses a pill box/blister packs? Yes, refill(s) completed by spouse When you are at home, how often do you miss doses of medications? Less than once a week How difficult is it for you to pay for your medications? Somewhat difficult How often do you experience adverse effects from your medications? Less than once a week Adverse Effect: hypotension Possible Med(s): amlodipine, carvedilol, losartan, jardiance Labs/Vitals/Risk Scores: The 10-year ASCVD risk score [...] - [facility] % -- 8.4* 8.2* HEMOGLOBIN, F5B-EOBNCJY LAB % 8.9* -- -- Recent Labs Units 02/29/24 0000 02/15/24 0613 01/23/24 1637 ESTIMATED GLOMERULAR FILTRATION RATE - [facility] 91.61 89 88 Serum creatinine: 0.82 mg/dL 02/29/24 0000 Estimated creatinine clearance: 80.7 mL/min Assessment: Medication discrepancies identified: - upon speaking with patient's , she restarted his losartan, amlodipine, jardiance, and divalproex because she was concerned with him being off of them as PCP had started them. - hadn't stopped divalproex due to concern for seizure or increased KEppra to 750mg yet Dose/frequency of medications appropriate for current renal function? yes Other medication problems identified: continued hypotension, elevated A1c at hospital Plan: Immunizations facilitated: None Patient education provided: to follow hospital discharge orders to prevent falls. Referral pended for follow up management of: N/A Medication recommendations: stop jardiance (having urinary frequency), amlodipine and losartan (to prevent hypotension), and stop divalproex per hospital I spent a total of 30-39 minutes (exact time 35 mins) on the date of service in preparation, delivery, and documentation of the care provided to Denis Lam excluding any time spent in the performance of separately billed services or time spent by another provider/QHP. Adilia Shirley [facility] Clinical Pharmacist - Line Crewman Medication Therapy Management Clinic 03/12/2024, 9:21 PM documented in this encounter Plan of Treatment Upcoming Encounters Date Type Department Care Team (Late st Contact Info) Description 03/13/2024 3:30 PM EST Scheduled Telephone Care Coordination and Integration [address] [place] [address] Mary Jane Valdez, Community Health [employer] [address] [place] [address] 03/15/2024 9:15 AM EST Office [facility] [address] [place] [phone] Fernando Solo MD 200 [place] [address] 03/16/2024 3:40 PM EST Office Visit Family Practice [address] [place] [address] 293 [facility] [phone] Apolinar Wayne, DO [address] [place] [address] 03/16/2024 3:45 PM EST Pharmacy Pharmacy Hematology Oncology [facility] [address] [place] [address] [facility] Hem/Onc [address] [place] [address] 03/20/2024 2:15 PM EST Scheduled Telephone Care Coordination and Integration [address] [place] [address] Mary Jane Valdez, Community Health [employer] [facility] [place] [address] 03/27/2024 12:00 PM EST Scheduled Telephone Care Coordination and Integration [address] [place] [address] Mary Jane Valdez, Community Health [employer] [facility] [place] [address] 03/27/2024 1:40 PM EST Office Visit Family Practice [address] [place] [address] [address] [place] [address] Apolinar Wayne, DO [address] [place] [address] 04/03/2024 9:30 AM EST Scheduled Telephone Care Coordination and Integration [address] [place] [address] Mary Jane Valdez, Community Health [employer] [address] [place] [address] 05/21/2024 2:30 PM EST Office Visit Urology Garima Meyers [address] [place] [address] Michelle Rodriguez PA-C [address] [place] [address] Scheduled Procedures Name Priority Associated Diagnoses Date/Ti [...] this encounter Medical Devices Implanted Type Area Silo Operator Device Identifier Shelf Expiration Date Model / Serial / Lot Graft Lyoplant 5.0x5.0cm 2x2 - [id number] Implanted:Qty : 1 on 06/24/2020 [place] [facility] [place]: Head B ALICEA : AESCULAP 11/18/2024 [id number] / / [id number] Graft Lyoplant 5.0x5.0cm 2x2 - [id number] Implanted:Qty : 1 on 06/24/2020 by Madi Kaur MD [place] [facility] B ALICEA : AESCULAP [id number] 11/18/2024 [id number] / [id number] / [id number] Graft Lyoplant 5.0x5.0cm 2x2 - [id number] Implanted:Qty : 1 on 06/24/2020 by Madi Kaur MD [place] [facility] Right: Head B ALICEA : AESCULAP 06/24/2020 [id number] / / [id number] Graft Lyoplant 5.0x5.0cm 2x2 - [id number] Implanted:Qty : 1 on 06/24/2020 by Madi Kaur MD [place] [facility] B ALICEA : AESCULAP [id number] 11/18/2024 [id number] / [id number] / [id number] Plate Ti Lo Pro Str 2h 421.502 - [id number] Implanted:Qty : 2 on 06/24/2020 by Madi Kaur MD [place] [facility] Right: Head SYNTHES MAXILLOFACIAL 421.502 / / Plate Bx Ti [id number] 4h 421.521 - [id number] Implanted:Qty : 1 on 06/24/2020 by Madi Kaur MD [place] [facility] Right: Head SYNTHES MAXILLOFACIAL 421.521 / / Screw Ti Lo Pro Sd 4mm 400.834 - [id number] Implanted:Qty : 7 on 06/24/2020 by Madi Kuar MD at [facility] [...] Agents on File Name Relationship Healthcare Agent [facility] Shira Lam Spouse Health Care Agent Care Teams Monotype Mechanic Relationship Specialty Start Date End Date Apolinar Wayne DO [address] [place] [address] PCP - General Internal Medicine 11/15/23 documented as of this encounter
--- OUTSIDE RECORDS SUMMARY | 2024-04-10 19:13 | External Medical Summary | Summary of Care ---
Author Name Unknown Organization [facility] Address [address] [place] [address] Phone [phone] Care Team Providers Care Ceramics Instructor Name Role Phone José Manuel Wayne DO Primary Care Provider [phone] Reason for Visit * Reason Comments Medication Refill Encounter Details Date Type Department Care Team (Late st Contact Info) Description 03/09/2024 Refill Family Practice [address] [place] [address] [place] [address] José Manuel Wayne DO [address] [place], [place] [phone] Anxiety Allergies Active Allergy Reactions Criticality Noted [...] by mouth every afternoon. (get from the [place]) 04/15/19 Active Vitamin D3 25 MCG (1000 [...] 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 06/27/2018 intermission coordinator (current) use of insulin 10/27/2017 History of [...] mRNA, LNP-s, No Pre serve, 2-Dose Series ([employer]) 03/10/2021,06/07/2020,05/17/2020 COVID-19, LNP-s, No Preserve , Chandler-sucrose, Ages 12+ (Pfizer) 11/17/2021 COVID-19, MRNA-LNP, PF, 30 M CG/0.3 mL, 12 YRS AND ABOVE, IM ([employer]-Comirnaty) 01/17/2024,03/08/2023 Covid-19, Mrna, Lnp-s, Pf, B ivalent, 30 Mcg, IM, 12 yrs and above ([employer]) 04/13/2022 H1N1 2009 Influenza, IM 12/10/2019,04/01/2009 Pneumococcal [...] Drug Monitoring Program in compliance with the [facility] regulations before prescribing a controlled substance. Last Tox Screen Results: No results found. However, due to the size of the patient record, not all encounters were searched.Please check Results Review for a complete set of results. Due 02/03 * Telephone Encounter - Johanne Collier, [facility] - 03/12/2024 5:10 PM EST No prescriptions requested or ordered in this encounter * Telephone Encounter - Sia Ambrocio [facility] - 03/10/2024 10:23 PM EST Pending Prescriptions: Disp Refills LORazepam 0.5 MG Oral Tablet (Ativan) 60 Tab*0 Sig: Take 1 Tablet by mouth 3 times a day as needed for Anxiety. * Telephone Encounter - Sia Ambrocio [facility] - 03/10/2024 10:22 PM EST I have reviewed the patients controlled substance dispensing history in the Prescription Drug Monitoring Program in compliance with the [facility] regulations before prescribing a controlled substance. PDMP checked on 03/10/2024. Pending Prescriptions: Disp Refills LORazepam 0.5 MG Oral Tablet (Ativan) 60 Tab*0 Sig: Take 1 Tablet by mouth 3 times a day as needed for Anxiety. Last Visit: 03/02/2024 (in office), 03/08/2024 (telemedicine) Next Visit: 03/16/2024 Date medication was last filled: 01/05 Date medication is due for refill: 02/05 Pharmacy: [facility] Is this request for a controlled substance? Yes and Urine Drug Screen Not completed Toxicology results: No results found. However, due to the size of the patient record, not all encounters were searched.Please check Results Review for a complete set of results. Please approve if appropriate. Thanks, Sia Ambrocio, PharmD Clinical Pharmacist [facility] ([facility]) [phone] 03/10/2024,10:22 PM documented in this encounter Plan of Treatment Upcoming Encounters Date Type Department Care Team (Late st Contact Info) Description 03/13/2024 3:30 PM EST Scheduled Telephone Care Coordination and Integration [address] [place] [address] Mary Jane Valdez, Community Health Pillowcase Turner [facility] [place] [address] 03/15/2024 9:15 AM EST Office Visit Hematology/Oncology [facility] [address] [place] [phone] Fernando Solo MD [address] [place] [address] 03/16/2024 3:40 PM EST Office Visit Family Practice [address] [place] [address] [address] [place] [address] José Manuel Wayne DO [address] [place] [address] 03/16/2024 3:45 PM EST Pharmacy Pharmacy Hematology Oncology [facility] [address] [place] [address] [facility], [facility] Hem/Onc [address] [place] [address] 03/20/2024 2:15 PM EST Scheduled Telephone Care Coordination and Integration [address] [place] [address] Mary Jane Valdez, Community Health Pillowcase Turner [address] [place] [address] 03/27/2024 12:00 PM EST Scheduled Telephone Care Coordination and Integration [address] [place] [address] Mary Jane Valdez, Community Health [employer] Turner [address] [place] [address] 03/27/2024 1:40 PM EST Office Visit Family Practice 65 [facility] [place] [address] [place] [address] José Manuel Wayne, [address] [place] [address] 04/03/2024 9:30 AM EST Scheduled Telephone Care Coordination and Integration [address] [place] [address] Mary Jane Valdez, Community Health [employer] [address] [place] [address] 05/21/2024 2:30 PM EST Office Visit Urology Garima Meyers [address] [place] [address] Michelle Rodriguez PA-C [address] [place] [address] Scheduled Procedures Name Priority Associated Diagnoses Date/Ti [...] this encounter Medical Devices Implanted Type Area Sales Review Clerk Device Identifier Shelf Expiration Date Model / Serial / Lot Graft Lyoplant 5.0x5.0cm 2x2 - [id number] Implanted:Qty : 1 on 06/24/2020 by Madi Kaur MD [place] [facility] Right: Head B ALICEA : AESCULAP 11/18/2024 [id number] / / [id number] Graft Lyoplant 5.0x5.0cm 2x2 - [id number] Implanted:Qty : 1 on 06/24/2020 by Madi Kaur MD at [place] [facility] B ALICEA : AESCULAP [id number] 11/18/2024 [id number] / [id number] / [id number] Graft Lyoplant 5.0x5.0cm 2x2 - [id number] Implanted:Qty : 1 on 06/24/2020 by Madi Kaur MD at [place] [facility] Right: Head B ALICEA : AESCULAP 06/24/2020 [id number] / / [id number] Graft Lyoplant 5.0x5.0cm 2x2 - [id number] Implanted:Qty : 1 on 06/24/2020 by Madi Kaur MD at [place] [facility] B ALICEA : AESCULAP [id number] 11/18/2024 [id number] / [id number] / [id number] Plate Ti Lo Pro Str 2h 421.502 - [id number] Implanted:Qty : 2 on 06/24/2020 by Madi Kaur MD at [place] [facility] Right: Head SYNTHES MAXILLOFACIAL 421.502 / / Plate Bx Ti [id number] 4h 421.521 - [id number] Implanted:Qty : 1 on 06/24/2020 by Madi Kaur MD at [place] [facility] Right: Head SYNTHES MAXILLOFACIAL 421.521 / / Screw Ti Lo Pro Sd 4mm 400.834 - [id number] Implanted:Qty : 7 on 06/24/2020 by Madi [...] Lam Spouse Health Care Agent Care Teams Ceramics Instructor Relationship Specialty Start Date End Date José Manuel Wayne DO [address] [place] [address] PCP - General Internal Medicine 11/15/23 documented as of this encounter
--- OUTSIDE RECORDS SUMMARY | 2024-04-10 19:14 | External Medical Summary | Summary of Care ---
Author Name Unknown Organization [facility] Address [address] [place] [address] Phone [phone] Care Team Providers Care Claim Clerk Name Role Phone Apolinar Wayne DO Primary Care Provider [phone] Reason for Visit * Reason Onset Date Comments Order Request 03/07/2024 Home Health Encounter Details Date Type Department Care Team (Late st Contact Info) Description 03/07/2024 Telephone Family Practice [address], [place] [address] [place] [phone] Apolinar Wayne DO [address] [place], [place] [id number] Order Request (Home Health) Allergies Active Allergy Reactions Criticality Noted Date Comments Erythromycin 07/02/1998 GI upset Guaifenesin & Derivatives 03/18/1997 nucofed documented as of this encounter (statuses as of 03/07/2024) Medications BD Pen Needle Altagracia U/F 32G [...] every afternoon. (get from the [place]) 04/15/19 22 Active Vitamin D3 25 MCG [...] by mouth in the morning. (From the [place]). 90 Tablet 3 05/05/19 24 Active Carvedilol [...] Active Additional Information Patient not taking.Reported on 03/02/2024 Tamsulosin HCl 0.4 MG Oral Capsule (Flomax) [...] 02/20/2024 4:13 PM EST 02/19/20 24 Active Additional Information Patient not taking.Reported on 03/02/2024 Propranolol HCl 10 MG Oral Tablet (Inderal) tkae 1/2 tablet by mouth 3 times daily 45 Tablet 02/20/2024 4:13 PM EST 02/19/20 24 Active Additional Information Patient not taking.Reported on 03/02/2024 Carboxymethylcell ulose Sodium 0.5 % Ophthalmic Solution [...] EST 02/20/20 Active Additional Information Patient taking differently:SubcutaneousBID (.AM/PM), 14 units twice daily, Reported on 03/02/2024 Co Q 10 100 MG Oral Capsule Take by mouth. Ac tive Multiple Vitamins Oral Tablet Take by mouth. Act jessica documented as of this encounter (statuses as of 03/07/2024) Active Problems Problem Noted Date Diagnosed Date [...] as of this encounter (statuses as of 03/07/2024) Resolved Problems Problem Noted Date Diagnosed Date [...] as of this encounter (statuses as of 03/07/2024) Immunizations Name Administration Dates Next Due COVID-19 mRNA, LNP-s, No Pre serve, 2-Dose Series (Downtyme) 03/10/2021,06/07/2020,05/17/2020 COVID-19, LNP-s, No Preserve , Chandler-sucrose, Ages 12+ (Pfizer) 11/17/2021 COVID-19, MRNA-LNP, PF, 30 M CG/0.3 mL, 12 YRS AND ABOVE, IM ([employer]) 01/17/2024,03/08/2023 Covid-19, Mrna, Lnp-s, Pf, B ivalent, [...] Telephone Encounter - Sadie Madera LPN - 03/07/2024 2:57 PM EST Called [facility] agency that Dr Wayne will sign start of care for tomorrow. Thank you * Telephone Encounter - Cheyenne Coleman OSA - 03/07/2024 9:36 AM EST [facility] has been trying to see for past two days They havent been able to do because of appointments Wants order for plan of care to start tomorrow 03/08/2024 Questions documented in this encounter Plan of Treatment Upcoming Encounters Date Type Department Care Team (Late st Contact Info) Description 03/07/2024 3:30 PM EST Pharmacy Pharmacy Hematology Oncology [facility], [place] [address] [place] [address] [facility], [facility] Hem/Onc [address] [place] [id number] Glioblastoma (HCC)* 03/12/2024 3:45 PM EST Pharmacy Pharmacy Hematology Oncology [facility], [address] [address] [facility], [facility] Hem/Onc [address] [place] [address] 03/15/2024 9:15 AM EST Office Visit Hematology/Oncology [facility] [address] [place] [phone] Fernando Solo MD [address] [place] [address] 03/16/2024 3:40 PM EST Office Visit Family Practice [address] [place] [address] [address] [place] [phone] Apolinar Wayne, [address] [place] [address] 03/27/2024 1:40 PM EST Office Visit Family Practice [address] [place] [address] [address] [place] [phone] Apolinar Wayne, [address] [place] [address] Scheduled Procedures Name Priority Associated Diagnoses Date/Ti [...] this encounter Medical Devices Implanted Type Area Motor Tester Device Identifier Shelf Expiration Date Model / Serial / Lot Graft Lyoplant 5.0x5.0cm 2x2 - [id number] Implanted:Qty : 1 on 06/24/2020 by Madi Kaur MD at OR [facility] Right: Head B ALICEA : AESCULAP 11/18/2024 [id number] / / [id number] Graft Lyoplant 5.0x5.0cm 2x2 - [id number] Implanted:Qty : 1 on 06/24/2020 by Madi Kaur MD at OR [facility] B ALICEA : AESCULAP [id number] 11/18/2024 [id number] / [id number] / [id number] Graft Lyoplant 5.0x5.0cm 2x2 - [id number] Implanted:Qty : 1 on 06/24/2020 by Madi Kaur MD at OR [facility] Right: Head B ALICEA : AESCULAP 06/24/2020 [id number] / / [id number] Graft Lyoplant 5.0x5.0cm 2x2 - [id number] Implanted:Qty : 1 on 06/24/2020 by Madi Kaur MD at OR [facility] B ALICEA : AESCULAP [id number] 11/18/2024 [id number] / [id number] / [id number] Plate Ti Lo Pro Str 2h 421.502 - [id number] Implanted:Qty : 2 on 06/24/2020 by Madi Kaur MD at OR [facility] Right: Head SYNTHES MAXILLOFACIAL 421.502 / / Plate Bx Ti [id number] 4h 421.521 - [id number] Implanted:Qty : 1 on 06/24/2020 by Madi Kaur MD at OR [facility] Right: Head SYNTHES MAXILLOFACIAL 421.521 / / Screw Ti Lo Pro Sd 4mm 400.834 - [id number] Implanted:Qty : 7 on 06/24/2020 by Madi Kaur MD at OR [facility] Right: Head SYNTHES MAXILLOFACIAL 400.834 [...] File Name Relationship Healthcare Agent [facility] Communication Aimee Lam Spouse Health Care Agent Care Teams Claim Clerk Relationship Specialty Start Date End Date Apolinar Wayne DO [address] [place] [address] PCP - General Internal Medicine 11/15/23 documented as of this encounter
--- OUTSIDE RECORDS SUMMARY | 2024-04-10 19:14 | External Medical Summary | Summary of Care ---
Author Name Unknown Organization [facility] Address [address] [place] [address] Phone [phone] Care Team Providers Care Bowstring Maker Name Role Phone Apolinar Wayne DO Primary Care Provider [phone] Reason for Visit * Reason Onset Date Comments Patient Assistance Program 02/29/2024 17 Giulia Roque Encounter Details Date Type Department Care Team (Late st Contact Info) Description 02/29/2024 Telephone Pharmacy Hematology Oncology [facility] [place] [address] [place] [address] Tiffanie Disla, [facility] [address] [place] [address] Patient Assistance Program (17 Krys Mike.. Allergies Active Allergy Reactions Criticality [...] goal of less than 7.0% ([facility]) Use as directed every 14 [...] 1:19 PM EDT 09/12/19 24 025 Active levETIRAcetam 500 MG Oral Tablet (Keppra)Indicatio ns:Glioblastoma (HCC) Take 1 Tablet by mouth in the morning and 1 Tablet before bedtime. 200 Tablet 3 4 1:01 PM EST 11/10/19 24 Active Additional [...] 4 1:06 PM EDT 12/30/19 24 Active Losartan Potassium 100 MG Oral Tablet (Cozaar) TAKE ONE TABLET BY MOUTH EVERY MORNING 100 Tablet 3 4 2:12 PM EDT 01/02/20 24 Active Ondansetron HCl 8 MG Oral [...] 4 9:59 AM EDT 01/16/20 24 Active dexAMETHasone 1 MG Oral Tablet take 1 tablet by mouth every 12 hours 60 Tablet 4 4:13 PM EST 02/19/20 24 Active levETIRAcetam 750 MG Oral Tablet take 1 tablet by mouth every 12 hours 60 Tablet 4 4:13 PM EST 02/19/20 Active Melatonin 3 MG Oral Tablet (FT Melatonin) take 2 tablet by mouth at bedtime 60 Tablet 02/19/20 Active Additional Information Patient not taking.Reported on 02/21/2024 Sennosides 8.6 MG Oral Tablet (SM Senna Laxative) take 2 tablets by mouth at bedtime 60 Tablet 02/19/20 Active Insulin Glargine 100 UNIT/ML Subcutaneous [...] [facility] 90 Tablet 3 05/05/19 24 024 Discontinu [...] mRNA, LNP-s, No Pre serve, 2-Dose Series (flaveit) 03/10/2021,06/07/2020,05/17/2020 COVID-19, LNP-s, No Preserve , Chandler-sucrose, Ages 12+ (Pfizer) 11/17/2021 COVID-19, MRNA-LNP, PF, 30 M CG/0.3 mL, 12 YRS AND ABOVE, IM ([employer]) 01/17/2024,03/08/2023 Covid-19, Mrna, Lnp-s, Pf, B ivalent, 30 Mcg, IM, 12 yrs and above (flaveit) 04/13/2022 H1N1 2009 Influenza, IM 12/10/2019,04/01/2009 Pneumococcal [...] income for Pharmacy sloan, emailed application to [email or web address] she will send back with income documents once received will send for review. Applications mailed: : No Follow up: 2-4 days Krys Staley [employer]ication [employer] 03/07/2024.11:09 AM * Telephone Encounter - Krys Staley OSA - 03/05/2024 8:32 AM EST Patient Assistance Name of Medication: GLEOSTINE 100 MG CAPSULE Was patient spoken to: : NO Type of assistance: no foundations open at this time,pace does not cover drug, can apply for pharmacy [facility] or [facility] if patient is within income due to was not denied or excluded patienthas Medicare. - Called second attempt need patients income documents no answer unable to leave a message. call. Applications mailed: : No Follow up: 2-4 days Krys Staley [employer]ication [employer] 03/05/24.8:32 AM * Telephone Encounter - Krys [...] for those we than can apply for [facility]. Either way we need copies of patient income docs to send to assistance programs called patient no answer , left message to return my call. Applications mailed: : No Follow up: 2-4 days Krys Staley [employer] 03/01/24.3:45 PM * Telephone Encounter - Tiffanie Disla RPh - 02/29/2024 10:22 AM EST Hello, Patient to see Dr Solo in 1-2 weeks with tentative plan to start lomustine after visit. I see prior to patient's surgery he was working with [facility] for assistance and was also willing to payout of pocket for first fill. Can we please re-visit assistance so we have in place prior to needing to start? Please have him apply to [facility] [employer] rehabilitation program coordinator assistance. Thanks! Tiffanie Disla, PharmD Ambulatory Clinical Pharmacist | Oral Chemotherapy Clinic [facility] 02/29/2024, 10:23 AM documented in this encounter Plan of Treatment Upcoming Encounters Date Type Department Care Team (Late st Contact Info) Description 03/09/2024 2:30 PM EST Home Visit [facility] [address] [facility] [place] [address] Betzy Vega, RN [address] [place] [address] Arrived 03/12/2024 3:45 PM EST Pharmacy Pharmacy Hematology Oncology [facility] [address] [place] [address] [facility], [facility] Hem/Onc [address] [place] [address] 03/15/2024 9:15 AM EST Office Visit Hematology/Oncology [facility] [address] [facility] [place] [address] Fernando Solo MD [address] [facility] [place] [address] 03/16/2024 3:40 PM EST Office Visit [facility] [address] [facility] [address] [place] [phone] Apolinar Wayne, DO 293 [place] [address] 03/27/2024 1:40 PM EST Office Visit [facility] [address] [facility] [address] [place] [phone] Apolinar Wayne, DO [address] [place] [address] Scheduled Procedures Name Priority Associated Diagnoses Date/Ti [...] this encounter Medical Devices Implanted Type Area Gallery Manager Device Identifier Shelf Expiration Date Model / Serial / Lot Graft Lyoplant 5.0x5.0cm 2x2 - [id number] Implanted:Qty : 1 on 06/24/2020 by Madi [place] [facility] [place]: Head B ALICEA : AUTUMNCULACleo 11/18/2024 [id number] / / [id number] Graft Lyoplant 5.0x5.0cm 2x2 - [id number] Implanted:Qty : 1 on 06/24/2020 by Madi Kaur MD [place] [facility] B ALICEA : AESCULAP [id number] 11/18/2024 [id number] / [id number] / [id number] Graft Lyoplant 5.0x5.0cm 2x2 - [id number] Implanted:Qty : 1 on 06/24/2020 by Madi Kaur MD [place] [facility] [place]: Head B ALICEA : AESCULAP 06/24/2020 [id number] / / [id number] Graft Lyoplant 5.0x5.0cm 2x2 - [id number] Implanted:Qty : 1 on 06/24/2020 by Madi Kaur MD [place] [facility] B ALICEA : AESCULAP [id number] 11/18/2024 [id number] / [id number] / [id number] Plate Ti Lo Pro Str 2h 421.502 - [id number] Implanted:Qty : 2 on 06/24/2020 by Madi Kaur MD [place] [facility] Right: Head SYNTHES MAXILLOFACIAL 421.502 / / Plate Bx Ti [id number] 4h 421.521 - [id number] Implanted:Qty : 1 on 06/24/2020 by Madi Kaur MD [place] [facility] [place]: Head SYNTHES MAXILLOFACIAL 421.521 / / Screw Ti Lo Pro Sd 4mm 400.834 - [id number] Implanted:Qty : 7 on 06/24/2020 by Madi [...] Agents on File Name Relationship Healthcare Agent [facility] Shira Lam Spouse Health Care Agent Care Teams Bowstring Maker Relationship Specialty Start Date End Date Apolinar Wayne DO [address] [place] [address] PCP - General Internal Medicine 11/15/23 documented as of this encounter"
--- OUTSIDE RECORDS SUMMARY | 2024-04-10 19:14 | External Medical Summary | Summary of Care ---
Author Name Unknown Organization [facility] Address [address] [place] [address] Phone [phone] Care Team Providers Care Attendant Arcade Name Role Phone Apolinar Wayne DO Primary Care Provider [phone] Reason for Visit * Reason Onset Date Comments Patient Assistance Program 02/29/2024 17 Giulia Roque Encounter Details Date Type Department Care Team (Late st Contact Info) Description 02/29/2024 Telephone Pharmacy Hematology Oncology [facility] [place] [address] [place] [address] Tiffanie Disla, [facility] [address] [place] [address] Patient Assistance Program (17 Krys Mike.. Allergies [...] by mouth every afternoon. (get from the [place]) 04/15/19 22 Active Vitamin D3 25 MCG [...] by mouth in the morning. (From the [place]). 90 Tablet 3 05/05/19 24 Active Carvedilol [...] 1 4 5:19 PM EDT 09/14/19 24 025 Active [...] 4 2:12 PM EDT 01/02/20 24 Active Docusate [...] 4 9:59 AM EDT 01/16/20 24 Active amLODIPine Besylate 10 MG Oral Tablet (Norvasc)Indicati ons:HTN, goal below 140/90 TAKE ONE TABLET BY MOUTH EVERY DAY 90 Tablet 3 4 12:59 PM EST 01/23/20 24 025 Active dexAMETHasone 1 MG Oral Tablet take 1 tablet by mouth every 12 hours 60 Tablet 4 4:13 PM EST 02/19/20 24 Active levETIRAcetam 750 MG Oral Tablet take 1 tablet by mouth every 12 hours 60 Tablet 4 4:13 PM EST 02/19/20 24 Active Melatonin 3 MG Oral Tablet (FT Melatonin) take 2 tablet by mouth at bedtime 60 Tablet 02/19/20 24 Active Additional Information Patient not taking.Reported on 02/21/2024 OLANZapine 10 MG Oral Tablet (zyPREXA) take 1 tablet by mouth at bedtime as needed for insomnia 15 Tablet 4 4:13 PM EST 02/19/20 24 Active Additional Information Patient not taking.Reported on 03/02/2024 Propranolol HCl 10 MG Oral Tablet (Inderal) tkae 1/2 tablet by mouth 3 times daily 45 Tablet 4 4:13 PM EST 02/19/20 24 Active Additional [...] 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 06/27/2018 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 10/27/2017 History [...] mRNA, LNP-s, No Pre serve, 2-Dose Series (lifeIO) 03/10/2021,06/07/2020,05/17/2020 COVID-19, LNP-s, No Preserve , Chandler-sucrose, Ages 12+ (Pfizer) 11/17/2021 COVID-19, MRNA-LNP, PF, 30 M CG/0.3 mL, 12 YRS AND ABOVE, IM ([facility] 01/17/2024,03/08/2023 Covid-19, Mrna, Lnp-s, Pf, B ivalent, 30 Mcg, IM, 12 yrs and above (lifeIO) 04/13/2022 H1N1 2009 Influenza, IM 12/10/2019,04/01/2009 Pneumococcal [...] income for Pharmacy sloan, emailed application to [email or web address] she will send back with income documents once received will send for review. Applications mailed: : No Follow up: 2-4 days Krys Staley Medication [place] [facility]ister 03/07/2024.11:09 AM * Telephone Encounter - Krys [...] Follow up: 2-4 days Krys Staley Medication [place] 03/05/24.8:32 AM * Telephone Encounter - Krys [...] Follow up: 2-4 days Krys Staley Medication [place] 03/01/24.3:45 PM * Telephone Encounter - Tiffanie Disla RPh - 02/29/2024 10:22 AM EST Hello, Patient to see Dr Solo in 1-2 weeks with tentative plan to start lomustine after visit. I see prior to patient's surgery he was working with [facility] for assistance and was also willing to payout of pocket for first fill. Can we please re-visit assistance so we have in place prior to needing to start? Please have him apply to [employer] anthropologist physical assistance. Thanks! Tiffanie Disla, PharmD Ambulatory Clinical Pharmacist | Oral Chemotherapy Clinic [facility] 02/29/2024, 10:23 AM documented in this encounter Plan of Treatment Upcoming Encounters Date Type Department Care Team (Late st Contact Info) Description 03/07/2024 3:30 PM EST Pharmacy Pharmacy Hematology Oncology [place] [address] [place] [address] [facility], [facility] Hem/Onc [address] [place] [address] Glioblastoma (HCC)* 03/12/2024 3:45 PM EST Pharmacy Pharmacy Hematology Oncology [place] [address] [place] [address] [facility], [facility] Hem/Onc [address] [place] [address] 03/15/2024 9:15 AM EST Office Visit Hematology/Oncology [facility] [address] [place] [phone] Fernando Solo MD [address] [place] [address] 03/16/2024 3:40 PM EST Office Visit [facility] [address] [facility] [address] [place] [address] Apolinar Wayne, DO [address] [place] [address] 03/27/2024 1:40 PM EST Office Visit [facility] [address] [facility] [address] [place] [place] [phone] Apolinar Wayne, [address] [place] [address] Scheduled Procedures Name Priority Associated Diagnoses Date/Ti [...] this encounter Medical Devices Implanted Type Area Machine Shop Lead Man Device Identifier Shelf Expiration Date Model / Serial / Lot Graft Lyoplant 5.0x5.0cm 2x2 - [id number] Implanted:Qty : 1 on 06/24/2020 by Madi Kaur MD at [place] [facility] Right: Head B ALICEA : KEELACleo 11/18/2024 [id number] / / [id number] Graft Lyoplant 5.0x5.0cm 2x2 - [id number] Implanted:Qty : 1 on 06/24/2020 by Madi Kaur MD at [place] [facility] B ALICEA : ARIAN [id number] 11/18/2024 [id number] / [id number] / [id number] Graft Lyoplant 5.0x5.0cm 2x2 - [id number] Implanted:Qty : 1 on 06/24/2020 by Madi Kaur MD at OR [facility] Right: Head B ALICEA : AESCULAP 06/24/2020 [id number] / / [id number] Graft Lyoplant 5.0x5.0cm 2x2 - [id number] Implanted:Qty : 1 on 06/24/2020 by Madi Kaur MD at [place] [facility] B ALICEA : ARIAN [id number] 11/18/2024 [id number] / [id number] / [id number] Plate Ti Lo Pro Str 2h 421.502 - [id number] Implanted:Qty : 2 on 06/24/2020 by Madi Kaur MD at [place] [facility] Right: Head SYNTHES MAXILLOFACIAL 421.502 / / Plate Bx Ti [id number] 4h 421.521 - [id number] Implanted:Qty : 1 on 06/24/2020 by Madi Kaur MD at [place] [facility] Right: Head SYNTHES MAXILLOFACIAL 421.521 / / Screw Ti Lo Pro Sd 4mm 400.834 - [id number] Implanted:Qty : 7 on 06/24/2020 by Madi Kaur MD at [place] [facility] Right: Head SYNTHES MAXILLOFACIAL 400.834 / / [...] Lam Spouse Health Care Agent Care Teams Attendant Arcade Relationship Specialty Start Date End Date Apolinar Wayne DO [address] [place] [address] PCP - General Internal Medicine 11/15/23 documented as of this encounter"
--- OUTSIDE RECORDS SUMMARY | 2024-04-10 19:14 | External Medical Summary | Summary of Care ---
Author Name Unknown Organization [facility] Address [address] [place] [address] Phone [phone] Care Team Providers Care Claims Assistant Name Role Phone Apolinar Wayne DO Primary Care Provider [phone] Reason for Visit * Reason Onset Date Comments Home Monitoring Orders Only 03/09/2024 Encounter Details Date Type Department Care Team (Late st Contact Info) Description 03/09/2024 Home Monitoring Family Practice [address], [place] [address] [place] [phone] Apolinar Wayne DO [address] [place], [place] [phone] Pulmonary hypertension (HCC)* Allergies Active Allergy Reactions Criticality Noted [...] 01/17/2024 9:59 AM EDT 01/16/20 24 Active dexAMETHasone [...] mRNA, LNP-s, No Pre serve, 2-Dose Series ([employer]) 03/10/2021,06/07/2020,05/17/2020 COVID-19, LNP-s, No Preserve , Chandler-sucrose, Ages 12+ (Pfizer) 11/17/2021 COVID-19, MRNA-LNP, PF, 30 M CG/0.3 mL, 12 YRS AND ABOVE, IM ([facility] 01/17/2024,03/08/2023 Covid-19, Mrna, Lnp-s, Pf, B ivalent, [...] documented in this encounter Progress Notes * Teetee Poe OSA - 03/09/2024 2:48 PM EST Patient has been successfully enrolled to the [id number] at [employer] program and will be provided with the [employer] Wearable device to facilitate their participation in remote monitoring: BP O2 Patient has been oriented to remote patient monitoring by their Head Neck Surgeon. The case making machine operator has also provided the patient with instruction and education regarding the program. Current health to assist with initial device set-up. Delivery Method: Vendor supplied Patient understands that this monitoring should not be used as a replacement for emergency and/or urgent care. If patient experiences any urgent symptoms, they are aware to call their digital program manager for additional instructions. In emergency situations, they will either call 911 or report directly to the ED for further evaluation. documented in this encounter Plan of Treatment Upcoming Encounters Date Type Department Care Team (Late st Contact Info) Description 03/12/2024 3:45 PM EST Pharmacy Pharmacy Hematology Oncology [facility] [address] [place] [address] [facility], [facility] Hem/Onc [address] [place] [address] 03/15/2024 9:15 AM EST Office Visit Hematology/Oncology [facility] [address] [facility] [place] [address] Fernando Solo MD 200 [place] [address] 03/16/2024 3:40 PM EST Office Visit Family Practice [address] [place] [address] [address] [place] [phone] Apolinar Wayne, DO [address] [place] [address] 03/27/2024 1:40 PM EST Office Visit Family Practice [address] [place] [address] [address] [place] [phone] Apolinar Wayne, DO [address] [place] [address] Scheduled Procedures Name Priority Associated Diagnoses Date/Ti [...] this encounter Medical Devices Implanted Type Area Studio Assistant Device Identifier Shelf Expiration Date Model / Serial / Lot Graft Lyoplant 5.0x5.0cm 2x2 - [id number] Implanted:Qty : 1 on 06/24/2020 by Madi Kaur MD [place] [facility] [place]: Head B ALICEA : AESCULAP 11/18/2024 [id number] / / [id number] Graft Lyoplant 5.0x5.0cm 2x2 - [id number] Implanted:Qty : 1 on 06/24/2020 by Madi Kaur MD [place] [facility] B ALICEA : AESCULAP [id number] 11/18/2024 [id number] / [id number] / [id number] Graft Lyoplant 5.0x5.0cm 2x2 - [id number] Implanted:Qty : 1 on 06/24/2020 by Madi Kaur MD [place] [facility] Right: Head B ALICEA : AESCULAP 06/24/2020 [id number] / / [id number] Graft Lyoplant 5.0x5.0cm 2x2 - [id number] Implanted:Qty : 1 on 06/24/2020 by Madi Kaur MD [place] [facility] B ALICEA : AESCULAP [id number] 11/18/2024 [id number] / [id number] / [id number] Plate Ti Lo Pro Str 2h 421.502 - [id number] Implanted:Qty : 2 on 06/24/2020 by Madi Kaur MD at [place] [facility] Right: Head SYNTHES MAXILLOFACIAL 421.502 / / Plate Bx Ti [id number] 4h 421.521 - [id number] Implanted:Qty : 1 on 06/24/2020 by Madi Kaur MD [place] [facility] [place] Right: Head SYNTHES MAXILLOFACIAL 421.521 / / Screw Ti Lo Pro Sd 4mm 400.834 - [id number] Implanted:Qty : 7 on 06/24/2020 by Madi Kaur MD at [place] [facility] Right: Head SYNTHES MAXILLOFACIAL 400.834 / / documented as of this encounter Visit Diagnoses Diagnosis Pulmonary hypertension (HCC)- Primary Other chronic pulmonary heart diseases documented in this encounter Advance Directives * [...] Relationship Healthcare Agent [facility] Communication Aimee Lam Spouse Health Care Agent [phone] (Home) Care Teams Claims Assistant Relationship Specialty Start Date End Date Apolinar Wayne DO [address] [place] [address] PCP - General Internal Medicine 11/15/23 documented as of this encounter
--- OUTSIDE RECORDS SUMMARY | 2024-04-10 19:14 | External Medical Summary | Summary of Care ---
Author Name Unknown Organization [facility] Address [address] [place] [address] Phone [phone] Care Team Providers Care Trimming Assembler Name Role Phone Apolinar Wayen DO Primary Care Provider [phone] Reason for Visit * Reason Onset Date Comments Patient Assistance Program 02/29/2024 20 Giulia Roque Encounter Details Date Type Department Care Team (Late st Contact Info) Description 02/29/2024 Telephone Pharmacy Hematology Oncology [facility] [place] [address] [place] [address] Tiffanie Disla, [facility] [address] [place] [address] Patient Assistance Program (20 Krys B... Allergies Active Allergy Reactions Criticality Noted Date [...] goal of less than 7.0% ([facility]) Use as directed every 14 days . 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 10/27/2017 History of [...] mRNA, LNP-s, No Pre serve, 2-Dose Series (NoWait) 03/10/2021,06/07/2020,05/17/2020 COVID-19, LNP-s, No Preserve , Chandler-sucrose, Ages 12+ (Pfizer) 11/17/2021 COVID-19, MRNA-LNP, PF, 30 M CG/0.3 mL, 12 YRS AND ABOVE, IM ([employer]xOne-Comirnaty) 01/17/2024,03/08/2023 Covid-19, Mrna, Lnp-s, Pf, B ivalent, 30 Mcg, IM, 12 yrs and above (NoWait) 04/13/2022 H1N1 2009 Influenza, IM 12/10/2019,04/01/2009 Pneumococcal [...] Follow up: 2-4 days Krys Staley Medication Staff Command And Control Officer 03/09/2024.2:38 PM * Telephone Encounter - Krys Staley OSA - 03/07/2024 11:08 AM EST Patient Assistance Name of Medication: GLEOSTINE 100 MG CAPSULE Was patient spoken to: : NO Type of assistance: no foundations open at this time,pace does not cover drug, spoke with patients she stated they should be within the [email or web address] for Pharmacy sloan, emailed application to [email or web address] she will send back with income documents once received will send for review. Applications mailed: : No Follow up: 2-4 days Krys Staley Medication Staff Command And Control Officer 03/07/2024.11:09 AM * Telephone Encounter - Krys [...] Follow up: 2-4 days Krys Staley Medication Staff Command And Control Officer 03/05/24.8:32 AM * Telephone Encounter - Krys [...] Follow up: 2-4 days Krys Staley Medication Staff Command And Control Officer 03/01/24.3:45 PM * Telephone Encounter - Tiffanie Disla [facility] - 02/29/2024 10:22 AM EST Viktor, Patient to see Dr Solo in 1-2 weeks with tentative plan to start lomustine after visit. I see prior to patient's surgery he was working with [facility] for assistance and was also willing to payout of pocket for first fill. Can we please re-visit assistance so we have in place prior to needing to start? Please have him apply to [employer] barrel charrer assistance. Thanks! Tiffanie Disla, PharmD Ambulatory Clinical Pharmacist | Oral Chemotherapy Clinic [facility] 02/29/2024, 10:23 AM documented in this encounter Plan of Treatment Upcoming Encounters Date Type Department Care Team (Late st Contact Info) Description 03/12/2024 3:45 PM EST Pharmacy Pharmacy Hematology Oncology [facility] [address] [place] [address] [facility], [facility] Hem/Onc [address] [place] [address] 03/15/2024 9:15 AM EST Office Visit Hematology/Oncology [facility] [address] [place] [phone] Fernando Solo MD 200 [facility] [place] [address] 03/16/2024 3:40 PM EST Office Visit Family Practice [address] [place] [address] [address] [place] [phone] Apolinar Wayne, [address] [place] [address] 03/27/2024 1:40 PM EST Office Visit Family Practice [address] [facility] [address] [place] [address] Apolinar Wayne, [address] [place] [address] Scheduled Procedures Name Priority Associated Diagnoses Date/Ti [...] encounter Medical Devices Implanted Type Area Supervisor Wrapping Room Device Identifier Shelf Expiration Date Model / Serial / Lot Graft Lyoplant 5.0x5.0cm 2x2 - [id number] Implanted:Qty : 1 on 06/24/2020 by Madi Kaur MD at OR [facility] Right: Head B ALICEA : AESCULAP 11/18/2024 [id number] / / [id number] Graft Lyoplant 5.0x5.0cm 2x2 - [id number] Implanted:Qty : 1 on 06/24/2020 by Madi Kaur MD at OR [facility] B ALICEA : AESCULAP [id number] 11/18/2024 [id number] / [id number] / [id number] Graft Lyoplant 5.0x5.0cm 2x2 - [id number] Implanted:Qty : 1 on 06/24/2020 by Madi Kaur MD at OR [facility] Right: Head B ALICEA : AESCULAP 06/24/2020 [id number] / / [id number] Graft Lyoplant 5.0x5.0cm 2x2 - [id number] Implanted:Qty : 1 on 06/24/2020 by Madi Kaur MD at OR [facility] B ALICEA : AESCULAP [id number] 11/18/2024 [id number] / [id number] / [id number] Plate Ti Lo Pro Str 2h 421.502 - [id number] Implanted:Qty : 2 on 06/24/2020 by Madi Kaur MD at OR [facility] Right: Head SYNTHES MAXILLOFACIAL 421.502 / / Plate Bx Ti [id number] 4h 421.521 - [id number] Implanted:Qty : 1 on 06/24/2020 by Madi Kaur MD at OR [facility] Right: Head SYNTHES MAXILLOFACIAL 421.521 / / Screw Ti Lo Pro Sd 4mm 400.834 - [id number] Implanted:Qty : 7 on 06/24/2020 by Madi [...] Agents on File Name Relationship Healthcare Agent [facility] Communication Aimee Lam Spouse Health Care Agent Care Teams Trimming Assembler Relationship Specialty Start Date End Date Apolinar Wayne DO [address] [place] [address] PCP - General Internal Medicine 11/15/23 documented as of this encounter"
--- OUTSIDE RECORDS SUMMARY | 2024-04-10 19:14 | External Medical Summary | Summary of Care ---
Author Name Unknown Organization [facility] Address [address] [place] [address] Phone [phone] Care Team Providers Care Cash Checker Name Role Phone Apolinar Wayne DO Primary Care Provider [phone] Reason for Visit * Reason Onset Date Comments Follow Up 03/07/2024 Encounter Details Date Type Department Care Team (Late st Contact Info) Description 03/07/2024 Telephone [facility], [facility] [address] [facility] [place] [address] Betzy Vega, RN 132 [facility] [place] [address] Follow Up Allergies Active Allergy Reactions Criticality Noted Date [...] with nephropathy 06/27/2018 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 06/27/2018 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 No answer. Call just ended. Unable to leave message. Will send to scheduling to arrange for JOSELIN. documented in this encounter Plan of Treatment Upcoming Encounters Date Type Department Care Team (Late st Contact Info) Description 03/07/2024 3:30 PM EST Pharmacy Pharmacy Hematology Oncology [place] [address] [place] [address] [facility] Hem[facility]Onc [address] [place] [address] Glioblastoma (HCC)* 03/12/2024 3:45 PM EST Pharmacy Pharmacy Hematology Oncology [facility] [address] [place] [address] [facility], [facility] Hem[facility]Onc [address] [place] [address] 03/15/2024 9:15 AM EST Office Visit Hematology/Oncology [facility] [address] [facility] [place] [phone] Fernando Solo MD 200 [place] [address] 03/16/2024 3:40 PM EST Office Visit Family Practice [address] [place] [address] [address] [place] [phone] Apolinar Wayne, DO [address] [place] [address] 03/27/2024 1:40 PM EST Office Visit Family Practice [address] [place] [address] [address] [place] [phone] Apolinar Wayne, DO [address] [place] [address] Scheduled Procedures Name Priority Associated Diagnoses Date/Ti al COLONOSCOPY FLEXIBLE PROXIMAL DIAGNOSTIC Recall History of [...] this encounter Medical Devices Implanted Type Area Suction Plate Roller Hand Device Identifier Shelf Expiration Date Model / Serial / Lot Graft Lyoplant 5.0x5.0cm 2x2 - [id number] Implanted:Qty : 1 on 06/24/2020 by Madi Kaur MD at OR [facility] Right: Head B ALICEA : AESCULAP 11/18/2024 [id number] / / [id number] Graft Lyoplant 5.0x5.0cm 2x2 - [id number] Implanted:Qty : 1 on 06/24/2020 by Madi Kaur MD at OR [facility] B ALICEA : AESCULAP [id number] 11/18/2024 [id number] / [id number] / [id number] Graft Lyoplant 5.0x5.0cm 2x2 - [id number] Implanted:Qty : 1 on 06/24/2020 by Madi Kaur MD at OR [facility] Right: Head B ALICEA : AESCULAP 06/24/2020 [id number] / / [id number] Graft Lyoplant 5.0x5.0cm 2x2 - [id number] Implanted:Qty : 1 on 06/24/2020 by Madi Kaur MD at OR [facility] B ALICEA : AESCULAP [id number] 11/18/2024 [id number] / [id number] / [id number] Plate Ti Lo Pro Str 2h 421.502 - [id number] Implanted:Qty : 2 on 06/24/2020 by Madi Kaur MD at OR [facility] Right: Head SYNTHES MAXILLOFACIAL 421.502 / / Plate Bx Ti [id number] 4h 421.521 - [id number] Implanted:Qty : 1 on 06/24/2020 by Madi Kaur MD at OR [facility] Right: Head SYNTHES MAXILLOFACIAL 421.521 / / Screw Ti Lo Pro Sd 4mm 400.834 - [id number] Implanted:Qty : 7 on 06/24/2020 by Madi Kaur MD at OR [facility] Right: Head SYNTHES MAXILLOFACIAL [...] Agents on File Name Relationship Healthcare Agent [facility] p Communication Aimee Lam Spouse Health Care Agent [phone] (Home) Care Teams Cash Checker Relationship Specialty Start Date End Date Apolinar Wayne DO 293 [facility] [place] [address] PCP - General Internal Medicine 11/15/23 documented as of this encounter
--- OUTSIDE RECORDS SUMMARY | 2024-04-10 19:14 | External Medical Summary | Summary of Care ---
Author Name Unknown Organization [facility] Address [address] [place] [address] Phone [phone] Care Team Providers Care Master Coastal Waters Name Role Phone Apolinar Wayne DO Primary Care Provider [phone] Encounter Details Date Type Department Care Team (Late st Contact Info) Description 03/06/2024 Telephone Family Practice [address], [place] [address] [place] [address] Apolinar Wayne DO [address] [place], [place] [phone] Allergies Active Allergy Reactions Criticality Noted Date Comments Erythromycin 07/02/1998 GI upset Guaifenesin & Derivatives 03/18/1997 nucofed documented as of this encounter (statuses as of 03/08/2024) Medications BD Pen Needle Altagracia U/F 32G [...] as of this encounter (statuses as of 03/08/2024) Active Problems Problem Noted Date Diagnosed Date PTSD (post-traumatic stress disorder) 06/11/2022 Current moderate episode of major depressive disorder without prior episode 04/15/2021 Gastro-esophageal reflux disease without esophag itis 04/15/2021 Localization-related epilepsy 11/13/2020 Encounter for antineoplastic chemotherapy 2020 Claustrophobia 08/21/2020 Glioblastoma 06/29/2020 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 Pulmonary hypertension 10/10/2018 Diabetes 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 06/27/2018 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 10/27/2017 History of [...] as of this encounter (statuses as of 03/08/2024) Resolved Problems Problem Noted Date Diagnosed Date [...] as of this encounter (statuses as of 03/08/2024) Immunizations Name Administration Dates Next Due COVID-19 mRNA, LNP-s, No Pre serve, 2-Dose Series ([employer]) 03/10/2021,06/07/2020,05/17/2020 COVID-19, LNP-s, No Preserve , Chandler-sucrose, Ages 12+ (Pfizer) 11/17/2021 COVID-19, MRNA-LNP, PF, 30 M CG/0.3 mL, 12 YRS AND ABOVE, IM ([facility]) 01/17/2024,03/08/2023 Covid-19, Mrna, Lnp-s, Pf, B ivalent, [...] Miscellaneous Notes * Telephone Encounter - Sadie Leroy RN - 03/06/2024 10:52 AM EST Yamilet from [facility] stopped in office-states when discharged from [facility] they didn't ordered for [facility]. If still interested in [facility] a new referral would need to be placed. documented in this encounter Plan of Treatment Upcoming Encounters Date Type Department Care Team (Late st Contact Info) Description 03/09/2024 2:30 PM EST Home Visit Barbara at [facility] [address] [place] [address] Betzy Vega RN [address] [place] [address] 03/12/2024 3:45 PM EST Pharmacy Pharmacy Hematology Oncology [facility] [address] [place] [address] [facility], [facility] Hem/Onc [address] [place] [address] 03/15/2024 9:15 AM EST Office Visit Hematology/Oncology [facility] 200 [facility] [place] [address] Fernando Solo MD 200 [facility] [place] [address] 03/16/2024 3:40 PM EST Office Visit Family Practice [address] [place] [address] [address] [place] [phone] Apolinar Wayne, DO [address] [place] [address] 03/27/2024 1:40 PM EST Office Visit Family Practice [address] [place] [address] [address] [place] [phone] Apolinar Wayne, [address] [place] [address] Scheduled Procedures Name Priority Associated Diagnoses Date/Ti [...] encounter Medical Devices Implanted Type Area Director Biologics Device Identifier Shelf Expiration Date Model / Serial / Lot Graft Lyoplant 5.0x5.0cm 2x2 - [id number] Implanted:Qty : 1 on 06/24/2020 by Madi Kaur MD at OR [facility] [place] [place] Right: Head B ALICEA : AESCULAP 11/18/2024 [id number] / / [id number] Graft Lyoplant 5.0x5.0cm 2x2 - [id number] Implanted:Qty : 1 on 06/24/2020 by Madi Kaur MD at OR [facility] [place] B ALICEA : AESCULAP [id number] 11/18/2024 [id number] / [id number] / [id number] Graft Lyoplant 5.0x5.0cm 2x2 - [id number] Implanted:Qty : 1 on 06/24/2020 by Madi Kaur MD at OR [facility] [place] Right: Head B ALICEA : AESCULAP 06/24/2020 [id number] / / [id number] Graft Lyoplant 5.0x5.0cm 2x2 - [id number] Implanted:Qty : 1 on 06/24/2020 by Madi Kaur MD at OR [facility] [place] B ALICEA : AESCULAP [id number] 11/18/2024 [id number] / [id number] / [id number] Plate Ti Lo Pro Str 2h 421.502 - [id number] Implanted:Qty : 2 on 06/24/2020 by Madi Kaur MD at OR [facility] [place] Right: Head SYNTHES MAXILLOFACIAL 421.502 / / Plate Bx Ti [id number] 4h 421.521 - [id number] Implanted:Qty : 1 on 06/24/2020 by Madi Kaur MD at OR [facility] [place] Right: Head SYNTHES MAXILLOFACIAL 421.521 / / Screw Ti Lo Pro Sd 4mm 400.834 - [id number] Implanted:Qty : 7 on 06/24/2020 by Madi [...] Lam Spouse Health Care Agent Care Teams Master [place] Relationship Specialty Start Date End Date Apolinar Wayne DO [address] [place] [address] PCP - General Internal Medicine 11/15/23 documented as of this encounter
--- OUTSIDE RECORDS SUMMARY | 2024-04-10 19:14 | External Medical Summary | Summary of Care ---
Author Name Unknown Organization [facility] Address [address] [place] [address] Phone [phone] Care Team Providers Care Instrumentation And Control Technician Name Role Phone Apolinar Wayne DO Primary Care Provider Reason for Visit * Reason Onset Date Comments [facility]: Maintenance 03/08/2024 Encounter Details Date Type Department Care Team (Late st Contact Info) Description 03/08/2024 Telephone [facility], [place] [address] [place] [address] [phone] Niecy Ramirezrie, KODY [address] [place] [address] [facility]: Maintenance Allergies Active Allergy [...] by mouth in the morning. (From the [place]). 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 Called and spoke to pt. Confirmed tomorrow 03/09 works for the pt. documented in this encounter Plan of Treatment Upcoming Encounters Date Type Department Care Team (Late st Contact Info) Description 03/08/2024 10:40 AM EST Telemedicine Family Practice 65 [facility] 293 [place] [address] College, Pharmacist [address] [place] [address] 03/09/2024 2:30 PM EST Home Visit [facility], [facility] [address] [place] [address] Betzy Vega, RN 132 [facility] [place] [address] 03/12/2024 3:45 PM EST Pharmacy Pharmacy Hematology Oncology [facility] [address] [place] [address] [facility], [facility] Hem/Onc [address] [place] [address] 03/15/2024 9:15 AM EST Office Visit Hematology[facility]On[facility] 200 [facility] [place] [address] Fernando Solo MD 200 [facility] [place] [address] 03/16/2024 3:40 PM EST Office Visit Family Practice [address] [place] [address] 293 [place] [address] Apolinar Wayne, DO 293 [facility] [place] [address] 03/27/2024 1:40 PM EST Office Visit Family Practice [address] [place] [address] 293 [place] [address] Apolinar Wayne, DO 293 [facility] [place] [address] Scheduled Procedures Name Priority Associated Diagnoses Date/Ti [...] this encounter Medical Devices Implanted Type Area Granulator Machine Operator Device Identifier Shelf Expiration Date Model / Serial / Lot Graft Lyoplant 5.0x5.0cm 2x2 - [id number] Implanted:Qty : 1 on 06/24/2020 by Madi Kaur MD [place] [facility] [place]: Head B ALICEA : AESCULAP 11/18/2024 [id number] / / [id number] Graft Lyoplant 5.0x5.0cm 2x2 - [id number] Implanted:Qty : 1 on 06/24/2020 by Madi Kaur MD [place] [facility] [place] B ALICEA : AESCULAP [id number] 11/18/2024 [id number] / [id number] / [id number] Graft Lyoplant 5.0x5.0cm 2x2 - [id number] Implanted:Qty : 1 on 06/24/2020 by Madi Kaur MD [place] [facility] [place]: Head B ALICEA : AESCULAP 06/24/2020 [id number] / / [id number] Graft Lyoplant 5.0x5.0cm 2x2 - [id number] Implanted:Qty : 1 on 06/24/2020 by Madi Kaur MD [place] [facility] [place] B ALICEA : AESCULAP [id number] 11/18/2024 [id number] / [id number] / [id number] Plate Ti Lo Pro Str 2h 421.502 - [id number] Implanted:Qty : 2 on 06/24/2020 by Madi Kaur MD [place] [facility] [place] Right: Head SYNTHES MAXILLOFACIAL 421.502 / / Plate Bx Ti [id number] 4h 421.521 - [id number] Implanted:Qty : 1 on 06/24/2020 by Madi Kaur MD at [place] [facility] [place] Right: Head SYNTHES MAXILLOFACIAL 421.521 / / Screw Ti Lo Pro Sd 4mm 400.834 - [id number] Implanted:Qty : 7 on 06/24/2020 by Madi [...] Lam Spouse Health Care Agent Care Teams Instrumentation And Control Technician Relationship Specialty Start Date End Date Apolinar Wayne DO [address] [place] [address] PCP - General Internal Medicine 11/15/23 documented as of this encounter
[2024-04-10] MEDS ORDERED: GLUCAGON FOR INJ 1 MG VIAL SQ PRN (19:15)
[2024-04-10] MEDS ORDERED: CARBOHYDRATES FOR HYPOGLYCEMIA PO PRN (19:15)
[2024-04-10] MEDS ORDERED: DEXTROSE 50% 50 ML SYRINGE IV PRN (19:15)
[2024-04-10] MEDS ORDERED: GLUCOSE 40% GEL 15 GM TUBE PO PRN (19:15)
[2024-04-10] MEDS ORDERED: GLUCOSE 10 TAB/TUBE PO PRN (19:15)
--- OUTSIDE RECORDS SUMMARY | 2024-04-10 19:15 | External Medical Summary | Summary of Care ---
Author Name Unknown Organization [facility] Address [address] [place] [address] Phone [phone] Care Team Providers Care Steam Brush Operator Name Role Phone Apolinar Wayne DO Primary Care Provider [phone] Reason for Visit * Reason Onset Date Comments Emergency Department Follow-Up 03/01/2024 1 05/02 Encounter Details Date Type Department Care Team (Late st Contact Info) Description 03/01/2024 Telephone Family Practice [address] [place] [address] [place] [address] Apolinar Wayne DO [address] [place], [place] [phone] Emergency Department Follow-Up (03/01) Allergies Active Allergy Reactions Criticality Noted Date [...] by mouth every afternoon. (get from the [place]) 04/15/19 22 Active Vitamin D3 25 MCG [...] by mouth in the morning. (From the [place]). 90 Tablet 3 05/05/19 24 Active Carvedilol [...] mRNA, LNP-s, No Pre serve, 2-Dose Series (Yakimbi) 03/10/2021,06/07/2020,05/17/2020 COVID-19, LNP-s, No Preserve , Chandler-sucrose, [...] Telephone Encounter - Apolinar Wayne DO - 03/02/2024 4:49 PM EST See visit notes * Telephone Encounter - Nelsy Almanzar LPN - 03/01/2024 2:26 PM EST The patient was contacted in regards to their recent: Emergency Department visit Did patient call the office before going to ER: Yes When was patient seen: 02/29/24 Which ED: [facility] What were they seen for: vision changes, headaches, difficulty walking What did ED think was wrong (dx): vision changes, frequent headaches What testing did they have done: lab work and MRI Any new medications prescribed: no When did the ED recommend they follow up: nothing specified in notes Is Ed record available: Yes How is patient feeling today: tired - did not get home from ED until late Patient concerns today: reports he has been more incontinent of bladder at night. Has urgency to go during the day, voiding small amounts. Scheduled to see Dr. Wayne tomorrow at 3:00 p.m. documented in this encounter Plan of Treatment Upcoming Encounters Date Type Department Care Team (Late st Contact Info) Description 03/05/2024 3:45 PM EST Pharmacy Pharmacy Hematology Oncology [facility] [address] [place] [address] [facility] Clinic Hem/Onc [address] [place] [address] 03/15/2024 9:15 AM EST Office Visit Hematology/Oncology [facility] [place] [address] [place] [phone] Fernando Solo MD 200 [facility] [place] [address] 03/27/2024 1:40 PM EST Office Visit Family Practice [address] [place] [address] [address] [place] [address] Apolinar Wayne DO [address] [place] [address] Scheduled Procedures Name Priority Associated Diagnoses Date/Ti [...] 02/28/2025 02/29/2024, 01/20, 02/14/2024, Additional history exists DTap/Tdap Vaccines [...] this encounter Medical Devices Implanted Type Area Purchaser [employer]otive Parts Device Identifier Shelf Expiration Date Model / Serial / Lot Graft Lyoplant 5.0x5.0cm 2x2 - [id number] Implanted:Qty : 1 on 06/24/2020 by Madi Kaur MD at [place] [facility] Right: Head B ALICEA : AESCULAP 11/18/2024 [id number] / / [id number] Graft Lyoplant 5.0x5.0cm 2x2 - [id number] Implanted:Qty : 1 on 06/24/2020 by Madi Kaur MD at OR [facility] B ALICEA : AESCULAP [id number] 11/18/2024 [id number] / [id number] / [id number] Graft Lyoplant 5.0x5.0cm 2x2 - [id number] Implanted:Qty : 1 on 06/24/2020 by Madi Kaur MD at OR [facility] Right: Head B ALICEA : AESCULAP 06/24/2020 [id number] / / [id number] Graft Lyoplant 5.0x5.0cm 2x2 - [id number] Implanted:Qty : 1 on 06/24/2020 by Madi Kaur MD at OR [facility] B ALICEA : AESCULAP [id number] 11/18/2024 [id number] / [id number] / [id number] Plate Ti Lo Pro Str 2h 421.502 - [id number] Implanted:Qty : 2 on 06/24/2020 by Madi Kaur MD at OR [facility] Right: Head SYNTHES MAXILLOFACIAL 421.502 / / Plate Bx Ti [id number] 4h 421.521 - [id number] Implanted:Qty : 1 on 06/24/2020 by Madi Kaur MD at OR [facility] Right: Head SYNTHES MAXILLOFACIAL 421.521 / / Screw Ti Lo Pro Sd 4mm 400.834 - [id number] Implanted:Qty : 7 on 06/24/2020 by Madi Kaur MD at [facility] Right: Head SYNTHES MAXILLOFACIAL 400.834 / / [...] Name Relationship Healthcare Agent [facility] Communication Aimee Lam Spouse Health Care Agent Care Teams Steam Brush Operator Relationship Specialty Start Date End Date Apolinar Wayne DO [address] [place] [address] PCP - General Internal Medicine 11/15/23 documented as of this encounter
--- OUTSIDE RECORDS SUMMARY | 2024-04-10 19:15 | External Medical Summary | Summary of Care ---
Author Name Unknown Organization [facility] Address [address] [place] [address] Phone [phone] Care Team Providers Care Emt/Dispatcher Name Role Phone Apolinar Wayne DO Primary Care Provider [phone] Reason for Visit * Reason Onset Date Comments Patient Assistance Program 02/29/2024 16 Giulia Roque Encounter Details Date Type Department Care Team (Late st Contact Info) Description 02/29/2024 Telephone Pharmacy Hematology Oncology [facility], [place] [address] [place] [address] Tiffanie Disla, [facility] [address] [place] [address] Patient Assistance Program (16 Krys Mike.. Allergies Active Allergy Reactions Criticality Noted Date Comments Erythromycin 07/02/1998 GI upset Guaifenesin & Derivatives 03/18/1997 nucofed documented as of this encounter (statuses as of 03/05/2024) Medications BD Pen Needle Altagracia U/F 32G [...] by mouth every afternoon. (get from the [place]) 04/15/19 22 Active Vitamin D3 25 MCG [...] morning. (From the [place]). 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 Pulmonary hypertension 10/10/2018 Diabetes 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 06/27/2018 [facility] (current) use of insulin 10/27/2017 History of [...] as of this encounter (statuses as of 03/05/2024) Resolved Problems Problem Noted Date Diagnosed Date [...] as of this encounter (statuses as of 03/05/2024) Immunizations Name Administration Dates Next Due COVID-19 mRNA, LNP-s, No Pre serve, 2-Dose Series ([employer]SiFlow [employer]) 03/10/2021,06/07/2020,05/17/2020 COVID-19, LNP-s, No Preserve , Chandler-sucrose, Ages 12+ (Pfizer) 11/17/2021 COVID-19, MRNA-LNP, PF, 30 M CG/0.3 mL, 12 YRS AND ABOVE, IM ([facility]) 01/17/2024,03/08/2023 Covid-19, Mrna, Lnp-s, Pf, B ivalent, 30 Mcg, IM, 12 yrs and above ([employer]SiFlow [employer]) 04/13/2022 H1N1 2009 Influenza, IM 12/10/2019,04/01/2009 Pneumococcal [...] drug, can apply for pharmacy [facility] or [facility] cares if patient is within income due to was not denied or excluded patienthas Medicare. - Called second attempt need patients income documents no answer unable to leave a message. call. Applications mailed: : No Follow up: 2-4 days Krys Staley Medication Watch Adjuster 03/05/24.8:32 AM * Telephone Encounter - Krys [...] for those we than can apply for [facility] Either way we need copies of patient income docs to send to assistance programs called patient no answer , left message to return my call. Applications mailed: : No Follow up: 2-4 days Krys Staley Medication Watch Adjuster 03/01/24.3:45 PM * Telephone Encounter - Tiffanie Disla [facility] - 02/29/2024 10:22 AM EST Viktor, Patient to see Dr Solo in 1-2 weeks with tentative plan to start lomustine after visit. I see prior to patient's surgery he was working with [facility] for assistance and was also willing to payout of pocket for first fill. Can we please re-visit assistance so we have in place prior to needing to start? Please have him apply to [facility] gate attendant assistance. Thanks! Tiffanie Disla, PharmD Ambulatory Clinical Pharmacist | Oral Chemotherapy Clinic [facility] 02/29/2024, 10:23 AM documented in this encounter Plan of Treatment Upcoming Encounters Date Type Department Care Team (Late st Contact Info) Description 03/05/2024 3:45 PM EST Pharmacy Pharmacy Hematology Oncology [facility] [address] [place] [address] [facility], [facility] Clinic Hem/Onc [address] [place] [address] 03/15/2024 9:15 AM EST Office Visit Hematology/Oncology [facility] 200 [facility] [address] Fernando Solo MD 200 [place] [address] 03/27/2024 1:40 PM EST Office Visit Family Practice 65 [facility] [address] [place] [address] Apolinar Wayne DO 293 [place] [address] Scheduled Procedures Name Priority Associated Diagnoses Date/Ti [...] this encounter Medical Devices Implanted Type Area Travel Administrator Device Identifier Shelf Expiration Date Model / Serial / Lot Graft Lyoplant 5.0x5.0cm 2x2 - [id number] Implanted:Qty : 1 on 06/24/2020 by Madi Kaur MD at [facility] Right: Head B ALICEA : AESCULAP 11/18/2024 [id number] / / [id number] Graft Lyoplant 5.0x5.0cm 2x2 - [id number] Implanted:Qty : 1 on 06/24/2020 by Madi Kaur MD [place] [facility] B ALICEA : AESCULAP [id number] 11/18/2024 [id number] / [id number] / [id number] Graft Lyoplant 5.0x5.0cm 2x2 - [id number] Implanted:Qty : 1 on 06/24/2020 by Madi Kaur MD [place] [facility] [place]: Head B ALICEA : AESCULAP 06/24/2020 [id number] / / [id number] Graft Lyoplant 5.0x5.0cm 2x2 - [id number] Implanted:Qty : 1 on 06/24/2020 by Madi Kaur MD [place] [facility] B ALICEA : AESCULAP [id number] 11/18/2024 [id number] / [id number] / [id number] Plate Ti Lo Pro Str 2h 421.502 - [id number] Implanted:Qty : 2 on 06/24/2020 by Madi Kaur MD at [place] [facility] Right: Head SYNTHES MAXILLOFACIAL 421.502 / / Plate Bx Ti [id number] 4h 421.521 - [id number] Implanted:Qty : 1 on 06/24/2020 by Madi Kaur MD [place] [facility] Right: Head SYNTHES MAXILLOFACIAL 421.521 / / Screw Ti Lo Pro Sd 4mm 400.834 - [id number] Implanted:Qty : 7 on 06/24/2020 by Madi Kaur MD at [place] [facility] Right: Head SYNTHES MAXILLOFACIAL 400.834 / / [...] Agents on File Name Relationship Healthcare Agent [facility] Communication Aimee Lam Spouse Health Care Agent Care Teams Emt/Dispatcher Relationship Specialty Start Date End Date Apolinar Wayne DO [address] [facility] [place] [address] PCP - General Internal Medicine 11/15/23 documented as of this encounter"
--- OUTSIDE RECORDS SUMMARY | 2024-04-10 19:15 | External Medical Summary | Summary of Care ---
Author Name Unknown Organization [facility] Address [address] [place] [address] Phone [phone] Care Team Providers Care Stock Sorter Name Role Phone Apolinar Wayne DO Primary Care Provider [phone] Encounter Details Date Type Department Care Team (Late st Contact Info) Description 02/29/2024 Result Scan Unspecified Department <No scans attached> Allergies Active Allergy Reactions Criticality Noted Date [...] by mouth in the morning. (From the [place]). 90 Tablet 3 05/05/19 24 Active Carvedilol [...] 1:19 PM EDT 06/24/20 24 025 Active Divalproex Sodium 250 MG [...] mRNA, LNP-s, No Pre serve, 2-Dose Series (picsell) 03/10/2021,06/07/2020,05/17/2020 COVID-19, LNP-s, No Preserve , Chandler-sucrose, Ages 12+ (Pfizer) 11/17/2021 COVID-19, MRNA-LNP, PF, 30 M CG/0.3 mL, 12 YRS AND ABOVE, IM ([facility] 01/17/2024,03/08/2023 Covid-19, Mrna, Lnp-s, Pf, [...] 3:45 PM EST Pharmacy Pharmacy Hematology Oncology [place] [address] [place] [address] [facility], [facility] Clinic Hem/Onc [address] [place] [address] 03/15/2024 9:15 AM EST Office Visit Hematology/Oncology [employer] [address] [place] [address] Fernando Solo MD [address] [place] [address] 03/27/2024 1:40 PM EST Office Visit Family Practice [address] [place] 293 [place] [address] Apolinar Wayne DO 293 [facility], [place] [address] Scheduled Procedures Name Priority Associated Diagnoses Date/Ti [...] this encounter Medical Devices Implanted Type Area Data Entry Associate Device Identifier Shelf Expiration Date Model / Serial / Lot Graft Lyoplant 5.0x5.0cm 2x2 - [id number] Implanted:Qty : 1 on 06/24/2020 by Madi Kaur [place] [facility] [place]: Head B ALICEA : AUTUMNCULAP 11/18/2024 [id number] / / [id number] Graft Lyoplant 5.0x5.0cm 2x2 - [id number] Implanted:Qty : 1 on 06/24/2020 by Maid Kaur MD [place] [facility] B ALICEA : AESCULAP [id number] 11/18/2024 [id number] / [id number] / [id number] Graft Lyoplant 5.0x5.0cm 2x2 - [id number] Implanted:Qty : 1 on 06/24/2020 by Madi Kaur MD [place] [facility] [place]: Head B ALICEA : AESCULAP 06/24/2020 [id number] / / [id number] Graft Lyoplant 5.0x5.0cm 2x2 - [id number] Implanted:Qty : 1 on 06/24/2020 by Madi Kaur MD [place] [facility] B ALICEA : AESCULAP [id number] 11/18/2024 [id number] / [id number] / [id number] Plate Ti Lo Pro Str 2h 421.502 - [id number] Implanted:Qty : 2 on 06/24/2020 by Madi Kaur MD [place] [facility] Right: Head SYNTHES MAXILLOFACIAL 421.502 / / Plate Bx Ti [id number] 4h 421.521 - [id number] Implanted:Qty : 1 on 06/24/2020 by Madi Kaur MD [place] [facility] Right: Head SYNTHES MAXILLOFACIAL 421.521 / / Screw Ti Lo Pro Sd 4mm 400.834 - [id number] Implanted:Qty : 7 on 06/24/2020 by Madi Kuar MD [place] [facility] Right: Head SYNTHES MAXILLOFACIAL 400.834 / / documented as of this encounter Procedures Procedure Name Priority Date/Time Associated Diagnosis Comments RADIOLOGY SCANNED RESULT 02/29/2024 documented in this encounter Results * RADIOLOGY SCANNED RESULT (02/29/2024) 02/29/2024 us No Physician Data Unknown DIAGNOSTIC RADIOLOGY S ERVICES Final Result documented in this encounter Advance Directives * [...] File Name Relationship Healthcare Agent [facility] Communication Aimee Lam Spouse Health Care Agent [phone] (Home) Care Teams Stock Sorter Relationship Specialty Start Date End Date Apolinar Wayne DO [address] [place] [address] PCP - General Internal Medicine 11/15/23 documented as of this encounter
--- OUTSIDE RECORDS SUMMARY | 2024-04-10 19:15 | External Medical Summary | Summary of Care ---
Author Name Unknown Organization [facility] Address [address] [place] [address] Phone [phone] Care Team Providers Care Car Repairman Name Role Phone Apolinar Wayne DO Primary Care Provider [phone] Encounter Details Date Type Department Care Team (Late st Contact Info) Description 03/06/2024 Population Health External Data Unspecified Department Allergies Active Allergy Reactions Criticality Noted Date Comments Erythromycin 07/02/1998 GI upset Guaifenesin & Derivatives 03/18/1997 nucofed documented as of this encounter (statuses as of 03/06/2024) Medications BD Pen Needle Altagracia U/F 32G [...] as of this encounter (statuses as of 03/06/2024) Active Problems Problem Noted Date Diagnosed Date [...] as of this encounter (statuses as of 03/06/2024) Resolved Problems Problem Noted Date Diagnosed Date [...] as of this encounter (statuses as of 03/06/2024) Immunizations Name Administration Dates Next Due COVID-19 mRNA, LNP-s, No Pre serve, 2-Dose Series ([email or web address]) 03/10/2021,06/07/2020,05/17/2020 COVID-19, LNP-s, No Preserve , Chandler-sucrose, Ages 12+ (Pfizer) 11/17/2021 COVID-19, MRNA-LNP, PF, 30 M CG/0.3 mL, 12 YRS AND ABOVE, IM ([facility]) 01/17/2024,03/08/2023 Covid-19, Mrna, Lnp-s, Pf, [...] 3:30 PM EST Pharmacy Pharmacy Hematology Oncology [address] [address] [facility], [facility] Hem/Onc [address] [place] [address] 03/15/2024 9:15 AM EST Office Visit Hematology/Oncology [facility] [place] [address] [place] [address] Fernando Solo MD 200 [place] [address] 03/27/2024 1:40 PM EST Office Visit Family Practice [address] [place] [address] [place] [address] Apolinar Wayne DO [address] [place] [address] Scheduled Procedures Name Priority Associated Diagnoses Date/Ti [...] this encounter Medical Devices Implanted Type Area Heel Shaver Device Identifier Shelf Expiration Date Model / Serial / Lot Graft Lyoplant 5.0x5.0cm 2x2 - [id number] Implanted:Qty : 1 on 06/24/2020 by Madi Kaur MD at [place] [facility] Right: Head B ALICEA : AESCULAP 11/18/2024 [id number] / / [id number] Graft Lyoplant 5.0x5.0cm 2x2 - [id number] Implanted:Qty : 1 on 06/24/2020 by Madi Kaur MD at OR [facility] B ALICEA : AESCULAP [id number] 11/18/2024 [id number] / [id number] / [id number] Graft Lyoplant 5.0x5.0cm 2x2 - [id number] Implanted:Qty : 1 on 06/24/2020 by Madi Kaur MD at OR [facility] Right: Head B ALICEA : AESCULAP 06/24/2020 [id number] / / [id number] Graft Lyoplant 5.0x5.0cm 2x2 - [id number] Implanted:Qty : 1 on 06/24/2020 by Madi Kaur MD at OR [facility] B ALICEA : AESCULAP [id number] 11/18/2024 [id number] / [id number] / [id number] Plate Ti Lo Pro Str 2h 421.502 - [id number] Implanted:Qty : 2 on 06/24/2020 by Madi Kaur MD at OR [facility] Right: Head SYNTHES MAXILLOFACIAL 421.502 / / Plate Bx Ti [id number] 4h 421.521 - [id number] Implanted:Qty : 1 on 06/24/2020 by Madi Kaur MD at OR [facility] Right: Head SYNTHES MAXILLOFACIAL 421.521 / / Screw Ti Lo Pro Sd 4mm 400.834 - [id number] Implanted:Qty : 7 on 06/24/2020 by Madi Kaur MD at [place] [facility] Right: Head SYNTHES MAXILLOFACIAL 400.834 / / [...] Agents on File Name Relationship Healthcare Agent [facility] Communication Aimee Lam Spouse Health Care Agent Care Teams Car Repairman Relationship Specialty Start Date End Date Apolinar Wayne DO [address] [place] [address] PCP - General Internal Medicine 11/15/23 documented as of this encounter
--- OUTSIDE RECORDS SUMMARY | 2024-04-10 19:15 | External Medical Summary | Summary of Care ---
Author Name Unknown Organization [facility] Address [address] [place] [address] Phone [phone] Care Team Providers Care Director Of Housing Name Role Phone Apolinar Wayne DO Primary Care Provider [phone] Reason for Visit * Reason Comments Medication Management Encounter Details Date Type Department Care Team (Late st Contact Info) Description 03/07/2024 3:30 PM [facility] Pharmacy Pharmacy Hematology Oncology [facility] [address], [place] [id number] [facility], [facility] Hem/Onc [address] [place], [place] [id number] Glioblastoma (HCC)* Allergies Active Allergy Reactions Criticality [...] hours 10 mL 02/20/2024 4:13 PM EST 12/02/20 24 Active Additional Information Patient taking differently:SubcutaneousBID [...] mRNA, LNP-s, No Pre serve, 2-Dose Series ([employer]) 03/10/2021,06/07/2020,05/17/2020 COVID-19, LNP-s, No Preserve , Chandler-sucrose, Ages 12+ (Pfizer) 11/17/2021 COVID-19, MRNA-LNP, PF, 30 M CG/0.3 mL, 12 YRS AND ABOVE, IM ([facility]) 01/17/2024,03/08/2023 Covid-19, Mrna, Lnp-s, Pf, B ivalent, [...] documented in this encounter Progress Notes * Ana Sharontalia Weinberg, [facility] - 03/07/2024 8:28 AM EST MEDICATION THERAPY MANAGEMENT LOMUSTINE TREATMENT PROGRESS NOTE Denis Lam [id number] Patient Phone Numbers : Aimee Communication: Spoke to: Treatment: Medication: Lomustine (Gleostine, CCNU) Indication/Staging/Diagnosis Code: Glioblastoma, WHO Grade IV, IDH WT, MGMT methyldated, C71.9 Dose Basis: 90 mg/m2 - 90 mg/m2 * 2.12 m2 (12/19/23) = 190.8 mg (rounded to 190 mg) Dose: 160 mg (capped) PO once every 6 weeks Administration: empty stomach at bedtime Start Date: TBD Primary Hand Riveter/Oncologist: Dr. Ashu Solo Supportive Care Meds: Ondansetron [...] patient proceeding with surgery on 01/30 @ [facility] Lomustine start is on HOLD due [...] requested patient apply to [facility] process design engineer free drug 03/07: spoke to Aimee about [facility] PAP. She will fill out patient portion and fax along with income documents directly to [facility] caresMomo Staley will also call aimee to see if they would qualify for pharmacy sloan Confirmed with P that rx sent on 01/05 was not dispensed since treatment was placed on hold till after surgery Follow up: 03/12 Sharon Perez, PharmD, BCOP Ambulatory Clinical Pharmacist | Oral Chemotherapy Clinic [facility] 03/07/2024, 9:18 AM Monitoring Parameters: Estimated CrCl Serum creatinine: 0.82 [...] 3:45 PM EST Pharmacy Pharmacy Hematology Oncology [facility] [place] [address] [place] [address] [facility], [facility] Hem/Onc [address] [place] [address] 03/15/2024 9:15 AM EST [facility] [address] [facility] [place] [place] [address] Fernando Solo MD [address] [facility] [place] [address] 03/16/2024 3:40 PM EST Office Visit Family Practice [address] [place] [address] [address] [place] [address] Apolinar Wayne, [address] [place] [address] 03/27/2024 1:40 PM EST Office Visit Family Practice [address] [place] [address] [address] [place] [address] Apolinar Wayne, [address] [place] [address] Scheduled Procedures Name Priority Associated Diagnoses Date/Ti ma COLONOSCOPY FLEXIBLE PROXIMAL DIAGNOSTIC Recall History of [...] this encounter Medical Devices Implanted Type Area Chair Inspector And Leveler Device Identifier Shelf Expiration Date Model / Serial / Lot Graft Lyoplant 5.0x5.0cm 2x2 - [id number] Implanted:Qty : 1 on 06/24/2020 by Madi Kaur MD at [facility] Right: Head B ALICEA : AESCULAP 11/18/2024 [id number] / / [id number] Graft Lyoplant 5.0x5.0cm 2x2 - [id number] Implanted:Qty : 1 on 06/24/2020 by Madi Kaur MD at [facility] B ALICEA : AESCULAP [id number] 11/18/2024 [id number] / [id number] / [id number] Graft Lyoplant 5.0x5.0cm 2x2 - [id number] Implanted:Qty : 1 on 06/24/2020 by Madi Kaur MD at [facility] Right: Head B ALICEA : AESCULAP 06/24/2020 [id number] / / [id number] Graft Lyoplant 5.0x5.0cm 2x2 - [id number] Implanted:Qty : 1 on 06/24/2020 by Madi Kaur MD at [facility] B ALICEA : AESCULAP [id number] 11/18/2024 [id number] / [id number] / [id number] Plate Ti Lo Pro Str 2h 421.502 - [id number] Implanted:Qty : 2 on 06/24/2020 by Madi Kaur MD at [facility] Right: Head SYNTHES MAXILLOFACIAL 421.502 / / Plate Bx Ti [id number] 4h 421.521 - [id number] Implanted:Qty : 1 on 06/24/2020 by Madi Kaur MD at [facility] Right: Head SYNTHES MAXILLOFACIAL 421.521 / / Screw Ti Lo Pro Sd 4mm 400.834 - [id number] Implanted:Qty : 7 on 06/24/2020 by Madi [...] Spouse Health Care Agent Care Teams Director Of Housing Relationship Specialty Start Date End Date Apolinar Wayne DO [address] [place] [address] PCP - General Internal Medicine 11/15/23 documented as of this encounter"
--- OUTSIDE RECORDS SUMMARY | 2024-04-10 19:15 | External Medical Summary | Summary of Care ---
Author Name Unknown Organization [facility] Address [address] [place] [address] Phone [phone] Care Team Providers Care Tank Carpenter Name Role Phone Apolinar Wayne DO Primary Care Provider [phone] Reason for Visit * Reason Onset Date Comments FYI 02/28/2024 Edil Encounter Details Date Type Department Care Team (Late st Contact Info) Description 02/28/2024 Telephone [facility] [place] [address] [facility] [place] [phone] Fernando Metz MD [address] [facility] [place] [address] FYI (Edil ) Allergies Active Allergy Reactions Criticality Noted Date Comments Erythromycin 07/02/1998 GI upset Guaifenesin & Derivatives 03/18/1997 nucofed documented as of this encounter (statuses as of 03/04/2024) Medications BD Pen Needle Altagracia U/F 32G [...] by mouth in the morning. (From the MS). 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 Pulmonary hypertension 10/10/2018 Diabetes 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 06/27/2018 USP (current) use of insulin 10/27/2017 History of [...] as of this encounter (statuses as of 03/04/2024) Resolved Problems Problem Noted Date Diagnosed Date [...] as of this encounter (statuses as of 03/04/2024) Immunizations Name Administration Dates Next Due COVID-19 mRNA, LNP-s, No Pre serve, 2-Dose Series ([employer]) 03/10/2021,06/07/2020,05/17/2020 COVID-19, LNP-s, No Preserve , [...] encounter Miscellaneous Notes * Telephone Encounter - Fernando Metz MD - 03/04/2024 6:22 PM EST Currently admitted at [facility] for orthostatic hypotension, hypoglycemia. (admitted on 03/02/2024). Likely to go home soon. Will keep appointment with me on 03/15/2024. * Telephone Encounter - Amber Noe OSA [...] he has been having She stated that [facility] is aware and they said [...] they should do a " scan per [facility] before they are seen on the " * Telephone Encounter - Amber Noe OSA - 02/29/2024 9:45 AM EST Faxed another request Will call 1. Dr. Richards, Surgeon Alexandra, his nurse [phone] Attempted to call as I called the reg [facility] number and no one had info on this pt [facility] Neurosurgery [facility] [address], [place] [address] phone: [phone] Called them They said Refaxed to their new direct number that they were able to provider so that pt can get results delia To get scheduled. Waiting on answer from SP par were to add pt for the 1 to 2 wk follow up * Telephone Encounter - Jefferson Alvarado RN - 02/29/2024 9:41 AM EST Scheduling- please call patients to schedule follow up with Dr. Metz in 1- 2 weeks. I know youpreviously had requested reports from [facility], I don't see records uploaded as of today. Can we [facility] to see if we can get records of his surgery and the pathology report from this for his follow up. ANDREW BROWN regarding Lomustine. * Telephone Encounter - Fernando [...] We have to get path records from [facility] * Telephone Encounter - Jefferson Alvarado RN - 02/28/2024 3:[address] Vinay BROWN * Telephone Encounter - Milena Whitfield OSA - 02/28/2024 2:17 PM EST Minda from [facility] calling regarding patient dr. Mclain asking to touch base with dr metz, please call dr mclain back at [phone] documented in this encounter Plan of Treatment Upcoming Encounters Date Type Department Care Team (Late st Contact Info) Description 03/05/2024 3:45 PM EST Pharmacy Pharmacy Hematology Oncology [address] [address] [facility], [facility] Hem/Onc [address] [place] [address] 03/15/2024 9:15 AM EST Office Visit Hematology/On[facility] [address] [facility] [place] [address] Fernando Metz MD [address] [facility] [place] [address] 03/27/2024 1:40 PM EST Office Visit Family Practice [address] [facility] [place] [address] [place] [address] Apolinar Wayne, [address] [place] [address] Scheduled Procedures Name Priority Associated Diagnoses Date/Ti [...] this encounter Medical Devices Implanted Type Area Forest Nursery Supervisor Device Identifier Shelf Expiration Date Model / Serial / Lot Graft Lyoplant 5.0x5.0cm 2x2 - [id number] Implanted:Qty : 1 on 06/24/2020 by Madi Kaur MD at [place] [facility] Right: Head B ALICEA : AESCULACleo 11/18/2024 [id number] / / [id number] Graft Lyoplant 5.0x5.0cm 2x2 - [id number] Implanted:Qty : 1 on 06/24/2020 by Madi Kaur MD at [facility] B ALICEA : AESCULAP [id number] 11/18/2024 [id number] / [id number] / [id number] Graft Lyoplant 5.0x5.0cm 2x2 - [id number] Implanted:Qty : 1 on 06/24/2020 by Madi Kaur MD at [facility] Right: Head B ALICEA : AESCULAP 06/24/2020 [id number] / / [id number] Graft Lyoplant 5.0x5.0cm 2x2 - [id number] Implanted:Qty : 1 on 06/24/2020 by Madi Kaur MD at [facility] B ALICEA : KEESHIVANI [id number] 11/18/2024 [id number] / [id number] / [id number] Plate Ti Lo Pro Str 2h 421.502 - [id number] Implanted:Qty : 2 on 06/24/2020 by Madi Kaur MD at [facility] Right: Head SYNTHES MAXILLOFACIAL 421.502 / / Plate Bx Ti [id number] 421.521 - [id number] Implanted:Qty : 1 on 06/24/2020 by Madi Kaur MD at [facility] Right: Head SYNTHES MAXILLOFACIAL 421.521 / / Screw Ti Lo Pro Sd 4mm 400.834 - [id number] Implanted:Qty : 7 on 06/24/2020 by Madi [...] Name Relationship Healthcare Agent [facility] cleo Shira Lam Spouse Health Care Agent Care Teams Tank Carpenter Relationship Specialty Start Date End Date Apolinar Wayne DO [address] [facility] [place] [address] PCP - General Internal Medicine 11/15/23 documented as of this encounter
--- OUTSIDE RECORDS SUMMARY | 2024-04-10 19:15 | External Medical Summary | Summary of Care ---
Author Name Unknown Organization [facility] Address [address] [place] [address] Phone [phone] Care Team Providers Care Knitted Cloth Examiner Name Role Phone Apolinar Wayne DO Primary Care Provider [phone] Reason for Visit * Reason Comments Acute Encounter Details Date Type Department Care Team (Late st Contact Info) Description 03/02/2024 3:00 PM EST Office Visit Family Practice [address] [facility], [place] [address] [place] [phone] Apolinar Wayne DO [address] [place] [address] Weakness of both lower extremities*; Fall, initial encounter; Glioblastoma (HCC); Lethargy; Type 2 diabetes mellitus with hemoglobin A1c goal of less than 7.0% (HCC); Localization-related epilepsy (HCC); HTN, goal below 140/90; BPH with obstruction/lower urinary tract symptoms; History of pulmonary embolism; Diabetes mellitus with nephropathy (HCC); Current moderate episode of major depressive disorder without prior episode (HCC); Gastro-esophageal reflux disease without esophagitis Allergies Active Allergy Reactions Criticality Noted Date [...] every afternoon. (get from the [place]) 04/15/19 22 Active Vitamin D3 25 MCG (1000 UT) Oral CapsuleIndication s:general health Take 1 Capsule by mouth. Active Centrum Adults Oral TabletIndications :general health Take 1 Tablet by mouth. Active FreeStyle Aarti 2 SensorIndications :Type 2 diabetes mellitus with hemoglobin A1c goal of less than 7.0% ([facility]) Use as directed every [...] by mouth in the morning. (From the [place]). 90 Tablet 3 05/05/19 24 Active Carvedilol [...] mRNA, LNP-s, No Pre serve, 2-Dose Series (Popbasic) 03/10/2021,06/07/2020,05/17/2020 COVID-19, LNP-s, No Preserve , Chandler-sucrose, Ages 12+ (Pfizer) 11/17/2021 COVID-19, MRNA-LNP, PF, 30 M CG/0.3 mL, 12 YRS AND ABOVE, IM (DaisyBill-Comirnat) 01/17/2024,03/08/2023 Covid-19, Mrna, Lnp-s, Pf, B ivalent, 30 Mcg, IM, 12 yrs and above (Popbasic) 04/13/2022 H1N1 2009 Influenza, IM 12/10/2019,04/01/2009 Pneumococcal [...] Sign Reading Time Taken Comments Blood Pressure 104/64 03/02/2024 3:12 PM EST Pulse 95 03/02/2024 3:12 PM EST Temperature 36.1 C (97 F) 03/02/2024 3:12 PM EST Respiratory Rate 14 03/02/2024 3:12 PM EST Oxygen Saturation 98% 03/02/2024 3:12 PM EST Inhaled Oxygen Concentration - - Weight 87.5 kg (193 lb) 03/02/2024 3:12 PM EST Height - - Body Mass Index 31.15 02/21/2024 3:00 PM EST documented in this encounter Functional [...] this encounter Progress Notes * Apolinar Wayne, - 03/04/2024 11:42 AM EST SUBJECTIVE: eDnis Lam is a 73 year old male. Chief Complaint Patient presents with Acute HPI: Patient is a 73 year old male with a history of right temporal lobe GBM resection at [facility] on 07/14/2020, DM Type II, Hyperlipidemia, BPH, Pulmonary HTN, Pulmonary Embolism, left leg DVT, Hedrick's Esophagus, Anxiety, and Depression that seen for weakness. The patient has weakness lethargy, and multiple falls today. The patient's was unable to get the patient off of the floor without assistancetoday. He is somnolent at visit. No chest pain or shortness of breath. The patient was admitted to [facility] on 01/31/2024 for resection of recurrent GBM. 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 (get from the [place]) Vitamin D3 25 MCG (1000 UT) Oral Capsule Take 1 Capsule by mouth. Centrum Adults Oral Tablet Take 1 Tablet by mouth. Gabapentin 300 MG Oral Capsule (Neurontin) TAKE BY MOUTH ONE CAPSULE IN THE MORNING AND ONE CAPSULEAT NOON AND ONE CAPSULE BEFORE BEDTIME 300 Capsule 3 Sertraline HCl 100 MG Oral Tablet (Zoloft) Take 1 Tablet by mouth in the morning. 100 Tablet 3 Empagliflozin 25 MG Oral Tablet (Jardiance) Take 1 Tablet by mouth in the morning. (From the [place]). 90 Tablet 3 Carvedilol 3.125 MG Oral Tablet (Coreg) TAKE ONE TABLET BY MOUTH TWICE A DAY WITH MORNING AND EVENING MEALS 200 Tablet 3 Pantoprazole Sodium 40 MG Oral Tablet Delayed Release (Protonix) TAKE ONE TABLET BY MOUTH EVERY VHE643 Tablet 3 Finasteride 5 MG Oral Tablet (Proscar) TAKE ONE TABLET BY MOUTH EVERY DAY IN THE MORNING 100 Tablet1 Divalproex Sodium 250 MG Oral Tablet Delayed Release (Depakote DR) TAKE TWO TABLETS BY MOUTH EVERY MORNING AND THREE TABLETS IN THE EVENING 450 Tablet 1 Tamsulosin HCl 0.4 MG Oral Capsule (Flomax) TAKE ONE CAPSULE BY MOUTH EVERY DAY 100 Capsule 3 Valtoco 10 MG Dose 10 MG/0.1ML Nasal Liquid (diazePAM) Administer 10 mg into nostril as needed (seizures lasting longer than 3 minutes). 1 Each 1 LORazepam 0.5 MG Oral Tablet (Ativan) Take 1 Tablet by mouth 3 times a day as needed for Anxiety. 60 Tablet 0 Losartan Potassium 100 MG Oral Tablet (Cozaar) TAKE ONE TABLET BY MOUTH EVERY MORNING 100 Tablet 3 Docusate Sodium 50 MG Oral Capsule (Colace) Take 1 Capsule by mouth in the morning and 1 Capsule before bedtime. 60 Capsule 3 Atorvastatin Calcium 80 MG Oral Tablet (Lipitor) Take 1 Tablet by mouth daily. 100 Tablet 3 amLODIPine Besylate 10 MG Oral Tablet (Norvasc) TAKE ONE TABLET BY MOUTH EVERY DAY 90 Tablet 3 dexAMETHasone 1 MG Oral Tablet take 1 tablet by mouth every 12 hours 60 Tablet 0 levETIRAcetam 750 MG Oral Tablet take 1 tablet by mouth every 12 hours 60 Tablet 0 Sennosides 8.6 MG Oral Tablet (SM Senna Laxative) take 2 tablets by mouth at bedtime 60 Tablet 0 Insulin Glargine 100 UNIT/ML Subcutaneous Solution (Lantus) inject 12 units Subcutaneous every 12 hours (Patient taking differently: Inject under the skin 2 times a day. 14 units twice daily) 10 mL 0 BD Pen Needle Altagracia U/F 32G X 4 MM (Insulin Pen Needle) Use to inject insulin 4 times a day 200 Each3 SURGICAL COMPRESSION STOCKING 20 to 30mm knee high. 2 Each 6 FreeStyle Aarti 2 Sensor Use as directed every 14 days . 1 Each 0 Magnesium Oxide 420 MG Oral Tablet Take 1 Tablet by mouth in the morning. Diclofenac Sodium 1 % External Gel (Voltaren) APPLY TOPICALLY TO AFFECTED AREA 3 TIMES A DAY -- TO HANDS, BILATERALLY FOR ARTHRITIC PAIN 200 g 5 levETIRAcetam 500 MG Oral Tablet (Keppra) Take 1 Tablet by mouth in the morning and 1 Tablet beforebedtime. (Patient not taking: Reported on 03/02/2024) 200 Tablet 3 Ondansetron HCl 8 MG Oral Tablet (Zofran) Take 1 tablet by mouth 30 minutes prior to lomustine and every 8 hours as needed for nausea. Do not exceed 3 tablets per 24 hours. 60 Tablet 1 Melatonin 3 MG Oral Tablet (FT Melatonin) take 2 tablet by mouth at bedtime (Patient not taking: Reported on 02/21/2024) 60 Tablet 0 OLANZapine 10 MG Oral Tablet (zyPREXA) take 1 tablet by mouth at bedtime as needed for insomnia (Patient not taking: Reported on 03/02/2024) 15 Tablet 0 Propranolol HCl 10 MG Oral Tablet (Inderal) tkae 1/2 tablet by mouth 3 times daily (Patient not taking: Reported on 03/02/2024) 45 Tablet 0 Carboxymethylcellulose Sodium 0.5 % Ophthalmic Solution (Refresh Tears) instill 1 drop into both eyes 4 times daily as needed for dry eyes 15 mL 0 Co Q 10 100 MG Oral Capsule Take by mouth. Multiple Vitamins Oral Tablet Take by mouth. Clotrimazole 10 MG Mouth/Throat Danette (Mycelex Danette) dissolve 1 Lozenge by mouth 5 times a day for 14 days. Allow tablet to slowly dissolve in your mouth 70 Danette 0 No current facility-administered medications for this [...] performed by Luana Callahan DO at ENDOSCOPY [facility] COLONOSCOPY, DIAGNOSTIC (RECTUM) 11/02/2019 internal hemorrhoids/biopsies show adenomatous polyps/recall 5 years/COLONOSCOPY FLEXIBLE PROXIMAL DIAGNOSTIC performed by Luana Callahan DO at ENDOSCOPY [facility] EGD, FLEXIBLE, DIAGNOSTIC 12/13/2011 Hedrick's-repeat EGD 3 yrs/repeat EUS 3-6 monthsUPPER GI ENDOSCOPY DIAGNOSTIC performed by Luana Diaz DO at ENDOSCOPY [facility] EGD, FLEXIBLE, DIAGNOSTIC 06/06/2015 sm HH, Barretts, repeat 3 yrs/ESOPHAGOGASTRODUODENOSCOPY (EGD), FLEXIBLE, TRANSORAL, DIAGNOSTIC performed by Luana Callahan DO at ENDOSCOPY [facility] EGD, FLEXIBLE, DIAGNOSTIC 09/27/2018 mild inflammation on bx, repeat 3 yrs/ESOPHAGOGASTRODUODENOSCOPY (EGD), FLEXIBLE, TRANSORAL, DIAGNOSTIC performed by Luana Callahan DO at ENDOSCOPY [facility] EGD, FLEXIBLE, W/BIOPSY 12/11/2009 done bxs done barretts esophagus EGD, W/ENDOSCOPIC US 12/11/2009 done no cyst identified,multiple small stones and sludge in gallbladder pancreas without masses of ductal dilatation barretts esophagus with a small nodule bxs done EGD, W/ENDOSCOPIC US 04/03/2012 UPPER GI ENDOSCOPY ENDOSCOPIC ULTRASOUND performed by Luana Callahan DO at OR [facility] MICROSURGERY ADD-ON Right 06/24/2020 MICROSURGICAL SURGERY REQUIRING MICROSCOPE LISTED SEPARATELY performed by Inés Cummins OR [facility] REMOVAL OF APPENDIX REMOVE CATARACT, INSERT LENS PROSTH Left 08/22/2019 REMOVE CATARACT, INSERT LENS PROSTH Right 09/05/2019 REMOVE SUPRATENTORIAL BRAIN TUMOR Right 06/24/2020 CRANIOTOMY BONE FLAP EXCISION BRAIN TUMOR SUPRATENTORIAL performed by Madi Kaur MD at OR [facility] REMOVE TONSILS & ADENOIDS, UNDER 12 T & A, age<12 REPAIR RUPTURED ROTATOR CUFF, CHRON 06/27/2013 right - Dr. Bryant STEREOTACTIC CRANIAL INTRADURAL NAVIGATION Right 06/24/2020 STEREOTACTIC CRANIAL INTRADURAL NAVIGATION performed by Madi Kaur MD at OR [facility] Review of patient's allergies indicates: Allergen Reactions Erythromycin GI upset Guaifenesin & Derivatives nucofed Review of Systems Constitutional: Positive for activity change and fatigue. Negative for chills and fever. HENT: Negative for congestion, sore throat and trouble swallowing. Respiratory: Negative for cough, shortness of breath and wheezing. Cardiovascular: Negative for chest pain, palpitations and leg swelling. Gastrointestinal: Negative for abdominal pain, blood in stool, constipation, diarrhea, nausea and vomiting. Genitourinary: Negative for dysuria, frequency and hematuria. Musculoskeletal: Positive for back pain and gait problem. Neurological: Positive for dizziness, weakness and light-headedness. Negative for syncope and headaches. Psychiatric/Behavioral: Positive for decreased concentration. Negative for confusion and sleep disturbance. OBJECTIVE: BP 104/64 | Pulse 95 | Temp 97 F (36.1 C) | Resp 14 | Wt 193 lb (87.5 kg) | SpO2 98% | BMI 31.15 kg/m | BSA 2.02 m Physical Exam Vitals and nursing note reviewed. Constitutional: General: He is not in acute distress. Appearance: He is ill-appearing. HENT: Head: Normocephalic and atraumatic. Cardiovascular: Rate and Rhythm: Regular rhythm. Tachycardia present. Heart sounds: Normal heart sounds. No murmur heard. No gallop. Pulmonary: Effort: Pulmonary effort is normal. Breath sounds: Normal breath sounds. No wheezing, rhonchi or rales. Abdominal: General: Bowel sounds are normal. There is no distension. Palpations: Abdomen is soft. Tenderness: There is no abdominal tenderness. Musculoskeletal: Right lower leg: No edema. Left lower leg: No edema. Neurological: Mental Status: He is lethargic. Motor: Weakness present. Gait: Gait abnormal. PLAN AND ASSESSMENT: Weakness of both lower extremities (Primary) Patient is unable to walk and weight bear. Change in Mentation Patient sent to [facility] emergently by ambulance Report called to ED Fall, initial encounter Glioblastoma (HCC) Lethargy - URINALYSIS, POINT OF CARE (ENTER/EDIT) Type 2 diabetes mellitus with hemoglobin A1c goal of less than 7.0% ([facility]) - GLUCOSE METER, POINT OF CARE Localization-related epilepsy (HCC) HTN, goal below 140/90 - EKG; Future; Expected date: 03/02/2024 - EKG BPH with obstruction/lower urinary tract symptoms History of pulmonary embolism Diabetes mellitus with nephropathy (HCC) Current moderate episode of major depressive disorder without prior episode (HCC) Gastro-esophageal reflux disease without esophagitis Other orders - URINALYSIS, POINT OF CARE Apolinar Wayne DO 11:47 AM 03/04/2024 documented in this encounter Plan of Treatment Upcoming Encounters Date Type Department Care Team (Late st Contact Info) Description 03/05/2024 3:45 PM EST Pharmacy Pharmacy Hematology Oncology [facility] [address] [place] [address] [facility] Hem/Onc [address] [place] [address] 03/15/2024 9:15 AM EST Office Visit Hematology/Oncology [facility] [address] [facility] [place] [phone] Fernando Solo MD [address] [facility] [place] [address] 03/27/2024 1:40 PM EST Office Visit Family Practice [address] [place] [address] [address] [place] [address] Apolinar Wayne DO 293 [place] [address] Scheduled Orders Name Type Priority Associated Diagnoses Orde r Schedule URINALYSIS, POINT OF CARE (ENTER/EDIT) Point of Care Testing Routine Lethargy Ordered: 03/02/2024 EKG EKG Routine HTN, goal below 140/90 Expected: 03/02/2024 (Approximate), Expires: 04/02/2025 Scheduled Procedures Name Priority Associated Diagnoses Date/Ti [...] this encounter Medical Devices Implanted Type Area Pharmacy Technician Inpatient Device Identifier Shelf Expiration Date Model / Serial / Lot Graft Lyoplant 5.0x5.0cm 2x2 - [id number] Implanted:Qty : 1 on 06/24/2020 by Madi Kaur MD at OR [facility] Right: Head B ALICEA : AUTUMNCULAP 11/18/2024 [id number] / / [id number] Graft Lyoplant 5.0x5.0cm 2x2 - [id number] Implanted:Qty : 1 on 06/24/2020 by Madi Kaur MD at OR [facility] B ALICEA : AESCULAP [id number] 11/18/2024 [id number] / [id number] / [id number] Graft Lyoplant 5.0x5.0cm 2x2 - [id number] Implanted:Qty : 1 on 06/24/2020 by Madi Kaur MD at OR [facility] Right: Head B ALICEA : AESCULAP 06/24/2020 [id number] / / [id number] Graft Lyoplant 5.0x5.0cm 2x2 - [id number] Implanted:Qty : 1 on 06/24/2020 by Madi Kaur MD at OR [facility] B ALICEA : AESCULAP [id number] 11/18/2024 [id number] / [id number] / [id number] Plate Ti Lo Pro Str 2h 421.502 - [id number] Implanted:Qty : 2 on 06/24/2020 by Madi Kaur MD at OR [facility] Right: Head SYNTHES MAXILLOFACIAL 421.502 / / Plate Bx Ti [id number] 4h 421.521 - [id number] Implanted:Qty : 1 on 06/24/2020 by Madi Kaur MD at OR [facility] Right: Head SYNTHES MAXILLOFACIAL 421.521 / / Screw Ti Lo Pro Sd 4mm 400.834 - [id number] Implanted:Qty : 7 on 06/24/2020 by Madi Kaur MD at OR [facility] Right: Head SYNTHES MAXILLOFACIAL 400.834 / / documented as of this encounter Procedures Procedure Name Priority Date/Time Associated Diagnosis Comments URINALYSIS, POINT OF CARE BRUNO 03/02/2024 3:56 PM EST GLUCOSE METER, POINT OF CARE Routine 03/02/2024 3:34 PM EST Type 2 diabetes mellitus with hemoglobin A1c goal of less than 7.0% (HCC) documented in this encounter Results * (ABNORMAL) URINALYSIS, POINT OF CARE (03/02/2024 3:56 PM EST) Color, Urine Other(A) Light Yellow, Yellow 03/02/2024 3:59 PM EST [place] [address] Clarity, Urine Cloudy(A) Clear 03/02/2024 3:59 PM EST [place] [address] Glucose, Urine >=1000(A) Negative mg/dL 03/02/2024 3:59 PM EST [place] [address] Bilirubin, Urine Negative Negative 03/02/2024 3:59 PM EST [address] Ketone, Urine Negative Negative mg/dL 03/02/2024 3:59 PM EST [address] [address] Specific [place], Urine 1.010 1.003 - 1.030 03/02/2024 3:59 PM EST [facility] Blood, Urine Trace-intact (A) Negative 03/02/2024 3:59 PM EST [place] [address] pH, Urine 6.0 5.0, 5.5, 6.0, 6.5, 7.0, 7.5 units 03/02/2024 3:59 PM EST [place] [address] Protein, Urine Negative Negative mg/dL 03/02/2024 3:59 PM EST [place] [address] Urobilinogen, Urine 0.2 0.2, 1.0 mg/dL 03/02/2024 3:59 PM EST [place] [address] Nitrite, Urine Negative Negative 03/02/2024 3:59 PM EST [place] [address] Esterase, Urine Negative Negative 03/02/2024 3:59 PM EST [place] [address] Urine 03/02/2024 3:56 PM EST 03/02/2024 3:59 PM EST Apolinar Wayne DO LAB POINT OF CARE TE ST DOCKED DEVICE UNSOLICITED RESULTS Final Result [place] [address] [address] [place] [address], [facility] * (ABNORMAL) GLUCOSE METER, POINT OF CARE (03/02/2024 3:34 PM EST) [facility] GLUCOSE - POCT 201(H) 70 - 120 mg/dL 03/02/2024 3:37 PM EST [place] [address] Blood 03/02/2024 3:34 PM EST 03/02/2024 3:37 PM EST Apolinar Wayne DO LAB POINT OF CARE TE ST DOCKED DEVICE UNSOLICITED RESULTS Final Result Performing Organization Address City/[facility]/ZIP Co de Phone Number [place] [address] [address] [place] [address] documented in this encounter Visit Diagnoses Diagnosis Weakness of both lower extremities- Primary Fall, initial encounter Glioblastoma (HCC) Malignant neoplasm of brain, unspecified site Lethargy Other malaise and fatigue Type 2 diabetes mellitus with hemoglobin A1c goal of less than 7.0% (HCC) Localization-related epilepsy (HCC) Localization-related (focal) (partial) epilepsy and epileptic syndromes with simple partial seizures, without mention of intractable epilepsy HTN, goal below 140/90 Unspecified essential hypertension BPH with obstruction/lower urinary tract symptoms Hypertrophy of prostate with urinary obstruction and other lower urinary tract symptoms (LUTS) History of pulmonary embolism Personal history of pulmonary embolism Diabetes mellitus with nephropathy (HCC) Type II or unspecified type diabetes mellitus with renal manifestations, not stated as uncontrolled Current moderate episode of major depressive disorder without prior episode (HCC) Gastro-esophageal reflux disease without esophagitis Esophageal reflux documented in this encounter Advance Directives * [...] Communication Aimee Lam Spouse Health Care Agent [phone] (Home) Care Teams Knitted Cloth Examiner Relationship Specialty Start Date End Date Apolinar Wayne DO [address] [place] [address] PCP - General Internal Medicine 11/15/23 documented as of this encounter"
[2024-04-10] MEDS ORDERED: POLYETHYLENE (MIRALAX) 17 GM PACK PO PRN (19:16)
[2024-04-10] MEDS ORDERED: LORazepam 0.5 MG TAB PO PRN (19:16)
[2024-04-10] MEDS ORDERED: DICLOFENAC SOD 1% GEL 100 GM TUBE EXT PRN (19:16)
--- OUTSIDE RECORDS SUMMARY | 2024-04-10 19:16 | External Medical Summary | Summary of Care ---
Author Name Unknown Organization [facility] Address [address] [place] [address] Phone [phone] Care Team Providers Care Air Analysis Technician Name Role Phone Apolinar Wayne DO Primary Care Provider Encounter Details Date Type Department Care Team (Late st Contact Info) Description 03/02/2024 Orders Only Family Practice [address] [place] [address] [place] [address] Apolinar Wayne DO [address] [place], [place] [phone] Allergies Active Allergy Reactions Criticality Noted Date [...] 1 Tablet by mouth in the morning. 01/26/20 22 Active Rivaroxaban 20 MG Oral Tablet (Xarelto)Indicati ons:blood clot prevention Take 1 Tablet by mouth every afternoon. 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 [place] [address] 03/15/2024 9:15 AM EST Office Visit Hematology/Oncology [facility] [place] [address] [place], [place] [phone] Fernando Solo MD 200 [facility] [address] [place] [address] 03/27/2024 1:40 PM EST Office Visit Family Practice [address] [place] [address] [place] [address] Apolinar Wayne DO 293 [facility], [place] [address] Scheduled Procedures Name Priority Associated Diagnoses Date/Ti [...] this encounter Medical Devices Implanted Type Area Pouncing Machine Operator Device Identifier Shelf Expiration Date Model / Serial / Lot Graft Lyoplant 5.0x5.0cm 2x2 - [id number] Implanted:Qty : 1 on 06/24/2020 by Madi Kaur MD at OR [facility] Right: Head B ALICEA : ARIAN 11/18/2024 [id number] / / [id number] Graft Lyoplant 5.0x5.0cm 2x2 - [id number] Implanted:Qty : 1 on 06/24/2020 by aMdi Kaur MD at OR [facility] B ALICEA : ARIAN [id number] 11/18/2024 [id number] / [id number] / [id number] Graft Lyoplant 5.0x5.0cm 2x2 - [id number] Implanted:Qty : 1 on 06/24/2020 by Madi Kaur MD at OR [facility] [place] Right: Head B ALICEA : [id number] 06/24/2020 [id number] / / [id number] Graft Lyoplant 5.0x5.0cm 2x2 - [id number] Implanted:Qty : 1 on 06/24/2020 by Madi Kaur MD at OR [facility] [place] B ALICEA : WILFREDOCleo [id number] 11/18/2024 [id number] / [id number] / [id number] Plate Ti Lo Pro Str 2h 421.502 - [id number] Implanted:Qty : 2 on 06/24/2020 by Madi Kaur MD at OR [facility] [place] Right: Head SYNTHES MAXILLOFACIAL 421.502 / / Plate Bx Ti [id number] 421.521 - [id number] Implanted:Qty : 1 on 06/24/2020 by Madi Kaur MD at OR [facility] Right: Head SYNTHES MAXILLOFACIAL 421.521 / / Screw Ti Lo Pro Sd 4mm 400.834 - [id number] Implanted:Qty : 7 on 06/24/2020 by Madi Kaur MD at OR [facility] Right: Head SYNTHES MAXILLOFACIAL 400.834 / / documented as of this encounter Procedures Procedure Name Priority Date/Time Associated Diagnosis Comments CHEMISTRY-OUTSIDE Routine 02/29/2024 documented in this encounter Results * (ABNORMAL) CHEMISTRY-OUTSIDE (02/29/2024) Not all results display below - see scan for full detail OUTSIDE LAB (SEE SCANNED REPORT) Comment:"SCAN INCLUDES [facility] ED LABS" - CBC/DIFF, PLT, CMP CREATININE 0.82 0.6 - 1.4 MG/DL OUTSIDE LAB (SEE SCANNED REPORT) EGFR 91.61 NO RANGE OUTSIDE LA B (SEE SCANNED REPORT) POTASSIUM 3.9 3.5 - 5.1 MMOL/L OUTSIDE LAB (SEE SCANNED REPORT) GLUCOSE 124(A) 70 - 99 MG/DL OUTSIDE LAB (SEE SCANNED REPORT) HOURS FASTING OUTSID E LAB (SEE SCANNED REPORT) TRIGLYCERIDES-OUT SIDE LAB OUTSIDE LAB (SEE SCANNED REPORT) CHOLESTEROL-OUTSI DE LAB OUTSIDE LAB (SEE SCANNED REPORT) HDL-OUTSIDE LAB OUTS SILVERIO LAB (SEE SCANNED REPORT) CHOL/HDL RATIO-OUTSIDE LAB OUTSIDE LA B (SEE SCANNED REPORT) LDL (CALCULATED)-OUTS SILVERIO LAB OUTSIDE LAB (SEE SCANNED REPORT) LDL (DIRECT MEASURE)-OUTSIDE LAB OUTSIDE LAB (SEE SCANNED REPORT) HEMOGLOBIN, [id number] LAB OUTSIDE LAB (SEE SCANNED REPORT) PHOSPHORUS-OUTSID E LAB OUTSIDE LAB (SEE SCANNED REPORT) PTH-OUTSIDE LAB OUTS SILVERIO LAB (SEE SCANNED REPORT) MICROALBUMIN RATIO-OUTSIDE LAB OUTSIDE LA B (SEE SCANNED REPORT) PROTEIN, UA-OUTSIDE LAB OUTSIDE LAB (SEE SCANNED REPORT) HGB 12.7(A) 14.0 - 18.0 G/DL OUTSIDE LAB (SEE SCANNED REPORT) 02/29/2024 us History Per Patient LABORATORY Final Result OUTSIDE LAB (SEE SCANNED REPORT) documented in this encounter Advance Directives * [...] Care Agent [phone] (Home) Care Teams Air Analysis Technician Relationship Specialty Start Date End Date Apolinar Wayne DO [address] [facility] [place] [address] PCP - General Internal Medicine 11/15/23 documented as of this encounter
--- OUTSIDE RECORDS SUMMARY | 2024-04-10 19:16 | External Medical Summary | Summary of Care ---
Author Name Unknown Organization [facility] Address [address] [place] [address] Phone [phone] Care Team Providers Care Drapery Inspector Name Role Phone Apolinar Wayne DO Primary Care Provider [phone] Reason for Visit * Reason Onset Date Comments Patient Assistance Program 02/29/2024 12 Giulia Roque Encounter Details Date Type Department Care Team (Late st Contact Info) Description 02/29/2024 Telephone Pharmacy Hematology Oncology [facility], [place] [address] [place] [address] Tiffanie Disla, [facility] [address] [place] [address] Patient Assistance Program (12 Krys Mike.. Allergies [...] mRNA, LNP-s, No Pre serve, 2-Dose Series (EcoStart) 03/10/2021,06/07/2020,05/17/2020 COVID-19, LNP-s, No Preserve , Chandler-sucrose, Ages 12+ (Pfizer) 11/17/2021 COVID-19, MRNA-LNP, PF, 30 M CG/0.3 mL, 12 YRS AND ABOVE, IM ([facility]) 01/17/2024,03/08/2023 Covid-19, Mrna, Lnp-s, Pf, B ivalent, [...] Miscellaneous Notes * Telephone Encounter - Krys Staley, KODY - 03/01/2024 3:48 PM EST Patient [...] for those we than can [facility] Either way we need copies of patient income docs to send to assistance programs called patient no answer , left message to return my call. Applications mailed: : No Follow up: 2-4 days Krys Staley Medication Fiberglass Fabricator 03/01/24.3:45 PM * Telephone Encounter - Tiffanie Disla RPh - 02/29/2024 10:22 AM EST Hello, Patient to see Dr Solo in 1-2 weeks with tentative plan to start lomustine after visit. I see prior to patient's surgery he was working with [facility] for assistance and was also willing to payout of pocket for first fill. Can we please re-visit assistance so we have in place prior to needing to start? Please have him apply to [facility] wealth management manager assistance. Thanks! Tiffanie Disla, PharmD Ambulatory Clinical Pharmacist | Oral Chemotherapy Clinic [facility] 02/29/2024, 10:23 AM documented in this encounter Plan of Treatment Upcoming Encounters Date Type Department Care Team (Late st Contact Info) Description 03/05/2024 3:45 PM EST Pharmacy Pharmacy Hematology Oncology [facility], [place] [address] [place] [address] [facility] Hem/Onc [address] [place] [facility] [place] [address] 03/15/2024 9:15 AM EST Office Visit Hematology/Oncology [facility] [address] [place] [phone] Fernando Solo MD [address] [place] [address] 03/27/2024 1:40 PM EST Office Visit Family Practice [address], [place] [address] [place] [phone] Apolinar Wayne, [address] [place] [address] Scheduled Procedures Name Priority Associated Diagnoses Date/Ti [...] this encounter Medical Devices Implanted Type Area Lead Cytogenetic Technologist Device Identifier Shelf Expiration Date Model / Serial / Lot Graft Lyoplant 5.0x5.0cm 2x2 - [id number] Implanted:Qty : 1 on 06/24/2020 by Madi Kaur MD at [place] [facility] [place] Right: Head B ALICEA : AESCULAP 11/18/2024 [id number] / / [id number] Graft Lyoplant 5.0x5.0cm 2x2 - [id number] Implanted:Qty : 1 on 06/24/2020 by Madi Kaur MD at [place] [facility] [place] B ALICEA : AESCULAP [id number] 11/18/2024 [id number] / [id number] / [id number] Graft Lyoplant 5.0x5.0cm 2x2 - [id number] Implanted:Qty : 1 on 06/24/2020 by Madi Kaur MD at [place] [facility] [place] Right: Head B ALICEA : AESCULAP 06/24/2020 [id number] / / [id number] Graft Lyoplant 5.0x5.0cm 2x2 - [id number] Implanted:Qty : 1 on 06/24/2020 by Madi Kaur MD at [place] [facility] [place] B ALICEA : AESCULAP [id number] 11/18/2024 [id number] / [id number] / [id number] Plate Ti Lo Pro Str 2h 421.502 - [id number] Implanted:Qty : 2 on 06/24/2020 by Madi Kaur MD at [place] [facility] [place] Right: Head SYNTHES MAXILLOFACIAL 421.502 / / Plate Bx Ti [id number] 4h 421.521 - [id number] Implanted:Qty : 1 on 06/24/2020 by Madi Kaur MD at [place] [facility] [place] Right: Head SYNTHES MAXILLOFACIAL 421.521 / / Screw Ti Lo Pro Sd 4mm 400.834 - [id number] Implanted:Qty : 7 on 06/24/2020 by Madi Kaur MD at [place] [facility] [place] Right: Head SYNTHES [...] Agents on File Name Relationship Healthcare Agent [facility] Communication Aimee Lam Spouse Health Care Agent Care Teams Drapery Inspector Relationship Specialty Start Date End Date Apolinar Wayne DO [address] [facility] [place] [address] PCP - General Internal Medicine 11/15/23 documented as of this encounter"
[2024-04-10] MEDS ORDERED: DOCUSATE SODIUM 100 MG CAP PO PRN (19:31)
[2024-04-10 19:39] LABS: Appearance Urine Clear (Clear); Bacteria Urine Automated None Seen (None Seen); Bilirubin Urine Negative (Negative); Blood Urine Negative (Negative); Cast Urine Automated 0-2 /lpf (0-2); Color Urine Yellow; Epithelial Cell Urine Auto 0-2 /hpf (0-2); Glucose Urine UA Negative (Negative); Ketones Urine Trace (Negative); Leukocyte Esterase Urine 3+ (Negative); Nitrite Urine Negative (Negative); Protein Urine Trace (Negative); RBC Urine Automated 0-2 /hpf (0-2); Specific Gravity Urine 1.025 (1.000-1.030); Urobilinogen Urine Negative (Negative); WBC Urine Automated >50 /hpf (0-5)
[2024-04-10] MEDS ORDERED: LANTUS PER UNIT CHARGE SQ SCH (21:00)
--- NOTE | 2024-04-10 21:30 | CT Scan Report ---
Exam(s): CT L SPINE EXAM: CT Lumbar Spine Without Intravenous Contrast CLINICAL HISTORY: Reason for exam: lower back pain, R sided. TECHNIQUE: Axial computed tomography images of the lumbar spine without intravenous contrast. CTDI is 39.4 mGy and DLP is 1209.99 mGy-cm. Automated exposure control was utilized for the study. A dose lowering technique was utilized adhering to the principles of ALARA. COMPARISON: No relevant prior studies available. FINDINGS: Vertebrae: There is generalized decreased bony mineralization suggestive of underlying osteopenia/osteoporosis. There are scattered marginal osteophytes throughout the lumbar spine. No fracture or destructive osseous abnormalities are noted. Discs/spinal canal/neural foramina: There is a central L4-5 disc protrusion and mild to moderate associated spinal stenosis. There is a left paracentral disc bulge/protrusion at L5-S1. There is mild L4-5 and L5-S1 degenerative disc space narrowing. Intervertebral disc spaces are otherwise preserved. Soft tissues: There are scattered aortoiliac atherosclerotic calcifications. No retroperitoneal or paravertebral inflammatory changes are noted. IMPRESSION: 1. No acute osseous abnormalities are noted. 2. L4-5 posterior disc protrusion and mild to moderate spinal stenosis. 3. L5-S1 left paracentral disc bulge/protrusion. 4. Mild multilevel degenerative changes as described. Electronically signed by: Chava Philippe MD 04/10/24 21:29 PM
[2024-04-10] MEDS: FINASTERIDE 5 MG TAB PO SCH (21:31)
[2024-04-10] MEDS: LANTUS PER UNIT CHARGE SQ SCH (21:31)
[2024-04-10] MEDS: INSULIN ASPART PER UNIT CHARGE SC SCH (21:31)
[2024-04-10] MEDS: GABAPENTIN 300 MG CAP PO SCH (21:31)
[2024-04-10] MEDS: carvediloL 3.125 MG TAB PO SCH (21:31)
[2024-04-10] MEDS: TAMSULOSIN HCL 0.4 MG CAP PO SCH (21:32)
[2024-04-10] MEDS: levETIRAcetam 250 MG TAB PO SCH (21:38)
[2024-04-11 08:37] LABS: Hemoglobin 12.4 g/dl (14.0-18.0); Mean Corpuscular Hemoglobin 30.3 pg (25.0-34.0); Mean Corpuscular Hgb Conc 33.5 g/dL (32.0-36.0); Mean Corpuscular Volume 90.5 fL (80.0-100.0); Mean Platelet Volume 9.7 fL (9.4-12.4); Platelet Count 200 K/uL (130-400); RDW Coefficient of Variation 13.2 % (11.5-14.5); RDW Standard Deviation 44.2 fL (36.4-46.3); Red Blood Count 4.09 M/uL (4.70-6.10)
[2024-04-11] MEDS: CHOLECALCIFEROL 10 MCG (400 UNITS) TAB PO SCH (08:40)
[2024-04-11] MEDS: PANTOprazole 40 MG TAB PO SCH (08:40)
[2024-04-11] MEDS: MULTIVITAMIN TAB PO SCH (08:40)
[2024-04-11] MEDS: SERTRALINE HCL 100 MG TABLET PO SCH (08:40)
[2024-04-11] MEDS: ATORVASTATIN 40 MG TAB PO SCH (08:40)
[2024-04-11 08:58] LABS: BUN Creatinine Ratio 27.5 (10-20); Calcium 9.1 mg/dl (8.6-10.3); Creatinine Clr Calc Pharmacy 92.5 ml/min; Potassium 3.6 mmol/L (3.5-5.1)
--- NOTE | 2024-04-11 13:53 | Neurology Consultation ---
Date of Consultation April 11, 2024 Assessment & Plan (1) Adult failure to thrive: Recommend MRI brain with and without contrast Continue frequent neurological assessments Obtain stat CT brain without contrast for any acute neurological decline Continue to monitor orthostatic vital signs Continue to monitor/control blood pressure & blood glucose Continue to monitor telemetry closely Continue to monitor renal and hepatic function, keep euvolemic Ok from neurology perspective for VTE prophylaxis PT/OT/SLT to eval and treat Telehealth Consultation Telehealth Information Telehealth Information: I performed this visit using a real-time telehealth connection between my location and the patients location ([facility]). After connecting through interactive tele-video, patient was identified by name and date of and/or wristband check.Patient (or authorized healthcare media sales representative) was informed that this was a telemedicine visit and it was being conducted confidentially over secure lines. My office door was closed and no one else was present in the room with me.Patient (or authorized healthcare media sales representative) provided consent to proceed with the visit, expressed an un derstanding of privacy and security of the telemedicine visit, and gave permission to have a hospital media sales representative in the room in order to assist with the visit and to conduct portions of the visit, as needed. I informed the patient (or authorized healthcare media sales representative) that I reviewed their record and presented the opportunity for them to ask any questions regarding the visit today. The patient agreed to participate. History of Present Illness Reason for Consultation: Recurrent GBM, weakness & falls Requesting Physician: Dr. Spain Attending Physician: Zenobia Spain MD History of Present Illness 73yo male with hx of GBM underwent resection in 2020 and again recently in January 2024. Unfortunately having ongoing weakness and recurrent falls admitted again following another fall. He states he uses a walker at home and the walker went to the right and he went to the left. No report of head trauma or seizure. He was previously anticoagulated but has been on hold due to recurrent falls. He has suffered hypotension and orthostatic hypotension in the past. He has undergone CT brain without contrast revealed no overt evidence of acute hemorrhage. He reports he has started PO chemo again yesterday. unfortunately reports multiple falls this week. Unfortunately it appears utilizes cane and is having difficulty providing adequate care for him. He states his Son and Grandson help out as well. I have performed televideo consultation. He is alert & oriented; able to answer all questions appropriately, name objects on televideo monitor, repeat phrases and perform complex/embedded commands without deficit. Neurological exam is non lateralizing/nonfocal in terms of motor strength and coordination in BUE but notable weakness in BLE. Unable to accurately assess coordination in BLE. Allergies Allergy/AdvReac Type Severity Reaction Status Date / Time erythromycin base AdvReac Unknown nausea/vomi Verified 12/11/21 09:20 ting Home Medications Medication Instructions Recorded Confirmed Type pantoprazole 40 mg tablet,delayed 40 mg PO QAM 06/18/18 04/10/24 History release multivitamin 1 tab PO DAILY 08/21/19 04/10/24 History carvedilol 3.125 mg tablet 3.125 mg PO BID 07/31/20 04/10/24 History diclofenac sodium 1 % topical gel 2 g topical QID PRN Pain 07/31/20 04/10/24 History polyethylene glycol 3350 17 17 g PO DAILY PRN constipation 07/31/20 04/10/24 History gram/dose oral powder (Miralax) ergocalciferol (vitamin D2) 10 mcg 10 mcg PO DAILY 07/10/21 04/10/24 History (400 unit) tablet sertraline 100 mg tablet (Zoloft) 100 mg PO DAILY 12/27/23 04/10/24 History gabapentin 300 mg capsule 300 mg PO TID 03/02/24 04/10/24 History levetiracetam 750 mg tablet 750 mg PO BID 03/02/24 04/10/24 History magnesium oxide 420 mg tablet 420 mg PO HS 03/02/24 04/10/24 History finasteride 5 mg tablet 5 mg PO HS #0 tabs 03/05/24 04/10/24 Rx tamsulosin 0.4 mg capsule 0.4 mg PO HS #0 caps 03/05/24 04/10/24 Rx atorvastatin 80 mg tablet 80 mg PO DAILY 04/10/24 04/10/24 History docusate sodium 100 mg tablet 100 mg PO BID PRN Constipation 04/10/24 04/10/24 History insulin glargine 100 unit/mL (3 12 unit subcut DAILY 04/10/24 04/10/24 History mL) subcutaneous pen lomustine 40 mg capsule See Rx Instructions .Route .COMPLEX 04/10/24 04/10/24 History lorazepam 0.5 mg tablet 0.5 mg PO TID PRN Anxiety 04/10/24 04/10/24 History Patient History Medical History (Updated 04/10/24 @ 20:25 by Liliana Solo MD) Diabetes Pulmonary hypertension Steroid-induced hyperglycemia Insomnia BPH (benign prostatic hyperplasia) Degenerative disc disease Severe protein-calorie malnutrition Fatigue Acute metabolic encephalopathy DVT prophylaxis Acute alteration in mental status History of pulmonary embolism Seizure History of agent [place] exposure Anxiety Acute deep vein thrombosis (DVT) of left lower extremity Elevated beta-hydroxybutyrate Elevated AST (SGOT) Hyperglycemia due to type 2 diabetes mellitus Acute pulmonary embolism BPH (benign prostatic hyperplasia) Barretts esophagus DM type 2 (diabetes mellitus, type 2) Surgical History (Updated 04/01/24 @ 00:06 by Mercedes Wilkins) H/O prostate biopsy S/P brain surgery History of cataract surgery LEFT History of anesthesia reaction REMOTE HX - WITH ONE SURGERY (PT UNSURE WHAT SURGERY) - SLEPT FOR 2 DAYS AFTER, NO -RE-OCCURENCE History of endoscopy History of colonoscopy History of foot surgery L History of tonsillectomy and adenoidectomy H/O shoulder surgery R X 2 - MOST RECENT: DEC 2018 Family History Father , 72yo Diabetes Hypertension Sister Cancer Brain tumor 42yo Mother , 80yo Myocardial infarction Son No problems noted. Son No problems noted. 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 Oriented to person, place, and time. Fluency naming repetition and comprehension appear grossly intact. Affect remains appropriate. CN testing: I: Deferred II:Reports no changes in visual acuity III/IV/: No evidence of gaze preference, hippus, nystagmus or roving eye movements V: Facial sensation reportedly grossly intact to light touch bilaterally VII: Facial movements appear without evidence of asymmetry VIII: Hearing appears grossly intact to loud voice bilaterally IX/X: Palate is unable to be accurately visualized XI: Shoulder shrug appears symmetric/ grossly intact bilaterally XII: Tongue protrudes midline without evidence of biting Motor exam: Strength appears grossly intact/symmetric in all extremities There appears to be decreased motor strength BLE Sensory: Sensation is reportedly grossly intact throughout Coordination: Finger to nose testing appears grossly intact. Coordination testing deferred BLE Reflexes: Deferred Gait: Deferred Results & Data Vital Signs (Past 12 Hours) Vital Signs Temp Pulse Resp BP O2 Del Method 04/11/24 08:21 36.5 C 66 15 125/77 Room Air Laboratory Results Abnormal lab results 04/10/24 04/10/24 04/10/24 Range/Units 15:15 19:25 21:04 RBC 4.36 L (4.70-6.10) M/uL Hgb 13.6 L (14.0-18.0) g/dl Hct 40.4 L (42.0-52.0) % BUN/Creatinine Ratio 22.5 H (10-20) Glucose 162 H (70-99(Fasting)) mg/dl POC Glucose 145 H (70-99) mg/dl Alkaline Phosphatase 120 H (34-104) U/L Urine Protein Trace H (Negative) Urine Ketones Trace H (Negative) Ur Leukocyte Esterase 3+ H (Negative) Urine WBC (Auto) >50 H (0-5) /hpf 04/11/24 04/11/24 04/11/24 Range/Units 07:40 08:00 11:36 RBC 4.09 L (4.70-6.10) M/uL Hgb 12.4 L (14.0-18.0) g/dl Hct 37.0 L (42.0-52.0) % BUN/Creatinine Ratio 27.5 H (10-20) Glucose 123 H (70-99(Fasting)) mg/dl POC Glucose 128 H 149 H (70-99) mg/dl Alkaline Phosphatase (34-104) U/L Urine Protein (Negative) Urine Ketones (Negative) Ur Leukocyte Esterase (Negative) Urine WBC (Auto) (0-5) /hpf Diagnostic Findings Cervical Spine CT 04/10/24 14:07 CT cervical spine wo con CLINICAL HISTORY: Fall, blood thinners, confusion. COMPARISON: 03/02/2024 TECHNIQUE: Multiple axial CT images of the cervical spine were obtained without contrast. A dose lowering technique was utilized adhering to the principles of ALARA. FINDINGS: There are mild diffuse degenerative changes. There is mild motion artifact. No fracture or subluxation. IMPRESSION: No cervical spine fracture seen. ACT 112: Negative or not required by law. The above report was generated using voice recognition software. It may contain grammatical, syntax or spelling errors. Electronically signed by: Reji Ding M.D. 04/10/2024 2:41 PM Chest X-Ray 04/10/24 14:07 XR chest 1V portable CLINICAL HISTORY: trauma TECHNIQUE: Single frontal radiograph of the chest was obtained. Comparison: Comparison is made to chest radiograph 03/02/2024 FINDINGS: No lines and tubes are seen. Calcified aortic knob is seen. The lungs are clear. No evidence of pleural effusion or pneumothorax. IMPRESSION: No acute chest disease. ACT 112: Negative or not required by law. Electronically signed by: Genaro Borjas M.D. 04/10/2024 2:[address] 04/10/24 14:07 CT head/brain wo con CLINICAL HISTORY: Fall, blood thinners, confusion Technique: Contiguous axial CT images of the head were acquired from the base of the skull to the vertex without intravenous contrast administration. Images were viewed in brain, subdural and bone windows. Automated dose lowering techniques and/or adjustment according to patient size were utilized for this exam. Comparison: Comparison is made to CT head 03/02/2024 Findings: Areas of decreased attenuation are present in the periventricular and subcortical white matter bilaterally consistent with small vessel ischemic disease. Generalized cerebral volume loss with commensurate enlargement of the ventricles, sulci, and cisterns is also present. Right temporal encephalomalacia is again seen. There is ex vacuo dilation of the right lateral ventricle. These are unchanged from prior exam. Imaged portions of the paranasal sinuses and mastoid air cells are clear. The orbits appear normal. Right craniotomy changes are seen. Impression: No acute abnormality and in particular no evidence of intracranial hemorrhage. Postcraniotomy changes are again seen as above. ACT 112: Negative or not required by law. Electronically signed by: Genaro Borjas M.D. 04/10/2024 2:46 PM Pelvis X-Ray 04/10/24 14:07 XR pelvis 1-2V routine CLINICAL HISTORY: fall COMPARISON: Pelvis radiograph March 02, 2024. FINDINGS: Sacroiliac joints and symphysis pubis are intact. There are no fractures within the pelvis or hips. There is mild bilateral hip osteoarthritis. There are no osseous lesions. IMPRESSION: No fractures within the pelvis or hips. ACT 112: Negative or not required by law. Electronically signed by: Edmundo Lara M.D. 04/10/2024 2:[address] 04/10/24 17:27 Exam(s): CT L SPINE EXAM: CT Lumbar Spine Without Intravenous Contrast CLINICAL HISTORY: Reason for exam: lower back pain, R sided. TECHNIQUE: Axial computed tomography images of the lumbar spine without intravenous contrast. CTDI is 39.4 mGy and DLP is 1209.99 mGy-cm. Automated exposure control was utilized for the study. A dose lowering technique was utilized adhering to the principles of ALARA. COMPARISON: No relevant prior studies available. FINDINGS: Vertebrae: There is generalized decreased bony mineralization suggestive of underlying osteopenia/osteoporosis. There are scattered marginal osteophytes throughout the lumbar spine. No fracture or destructive osseous abnormalities are noted. Discs/spinal canal/neural foramina: There is a central L4-5 disc protrusion and mild to moderate associated spinal stenosis. There is a left paracentral disc bulge/protrusion at L5-S1. There is mild L4-5 and L5-S1 degenerative disc space narrowing. Intervertebral disc spaces are otherwise preserved. Soft tissues: There are scattered aortoiliac atherosclerotic calcifications. No retroperitoneal or paravertebral inflammatory changes are noted. IMPRESSION: 1. No acute osseous abnormalities are noted. 2. L4-5 posterior disc protrusion and mild to moderate spinal stenosis. 3. L5-S1 left paracentral disc bulge/protrusion. 4. Mild multilevel degenerative changes as described. Electronically signed by: Chava Philippe MD 04/10/24 21:29 PM Medications Administered Home Medications Medication Instructions Recorded Confirmed Last Taken pantoprazole 40 mg tablet,delayed 40 mg PO QAM 06/18/18 04/10/24 07/10/20 release multivitamin 1 tab PO DAILY 08/21/19 04/10/24 06/08/20 carvedilol 3.125 mg tablet 3.125 mg PO BID 07/31/20 04/10/24 Unknown diclofenac sodium 1 % topical gel 2 g topical QID PRN Pain 07/31/20 04/10/24 Unknown polyethylene glycol 3350 17 17 g PO DAILY PRN constipation 07/31/20 04/10/24 Unknown gram/dose oral powder (Miralax) ergocalciferol (vitamin D2) 10 mcg 10 mcg PO DAILY 07/10/21 04/10/24 Unknown (400 unit) tablet sertraline 100 mg tablet (Zoloft) 100 mg PO DAILY 12/27/23 04/10/24 Unknown gabapentin 300 mg capsule 300 mg PO TID 03/02/24 04/10/24 Unknown levetiracetam 750 mg tablet 750 mg PO BID 03/02/24 04/10/24 Unknown magnesium oxide 420 mg tablet 420 mg PO HS 03/02/24 04/10/24 Unknown finasteride 5 mg tablet 5 mg PO HS #0 tabs 03/05/24 04/10/24 06/08/20 tamsulosin 0.4 mg capsule 0.4 mg PO HS #0 caps 03/05/24 04/10/24 06/08/20 atorvastatin 80 mg tablet 80 mg PO DAILY 04/10/24 04/10/24 Unknown docusate sodium 100 mg tablet 100 mg PO BID PRN Constipation 04/10/24 04/10/24 Unknown insulin glargine 100 unit/mL (3 12 unit subcut DAILY 04/10/24 04/10/24 Unknown mL) subcutaneous pen lomustine 40 mg capsule See Rx Instructions .Route .COMPLEX 04/10/24 04/10/24 Unknown lorazepam 0.5 mg tablet 0.5 mg PO TID PRN Anxiety 04/10/24 04/10/24 Unknown Active Medications Generic Name Dose Route Start Last Admin Trade Name Freq PRN Reason Stop Dose Admin Atorvastatin Calcium 80 mg 04/11/24 09:00 04/11/24 08:40 Atorvastatin 40 Mg Tab PO 05/11/24 08:59 80 mg DAILY ALLEY Administration Carvedilol 3.125 mg 04/10/24 21:00 04/11/24 08:41 Carvedilol 3.125 Mg Tab PO 05/10/24 20:59 3.125 mg BID ALLEY Administration Finasteride 5 mg 04/10/24 21:00 04/10/24 21:31 Finasteride 5 Mg Tab PO 05/10/24 20:59 5 mg HS ALLEY Administration Gabapentin 300 mg 04/10/24 21:00 04/11/24 12:55 Gabapentin 300 Mg Cap PO 05/10/24 20:59 300 mg TID ALLEY Administration Insulin Aspart 0 units 04/10/24 21:00 04/11/24 12:54 Insulin Aspart Per Unit Charge SC 05/10/24 20:59 4 units ACHS ALLEY Administration Insulin Glargine 5 units 04/10/24 21:00 04/11/24 08:38 Lantus Per Unit Charge SQ 05/10/24 20:59 5 units BID ALLEY Administration Levetiracetam 750 mg 04/10/24 21:00 04/11/24 08:39 Levetiracetam 250 Mg Tab PO 05/10/24 20:59 750 mg BID ALLEY Administration Multivitamins 1 tab 04/11/24 09:00 04/11/24 08:40 Multivitamin Tab PO 05/11/24 08:59 1 tab DAILY ALLEY Administration Pantoprazole Sodium 40 mg 04/11/24 09:00 04/11/24 08:40 Pantoprazole 40 Mg Tab PO 05/11/24 08:59 40 mg QAM ALLEY Administration Sertraline HCl 100 mg 04/11/24 09:00 04/11/24 08:40 Sertraline Hcl 100 Mg Tablet PO 05/11/24 08:59 100 mg DAILY ALLEY Administration Tamsulosin HCl 0.4 mg 04/10/24 21:00 04/10/24 21:32 Tamsulosin Hcl 0.4 Mg Cap PO 05/10/24 20:59 0.4 mg HS ALLEY Administration Vitamin D 10 mcg 04/11/24 09:00 04/11/24 08:40 Cholecalciferol 10 Mcg (400 Units) Tab PO 05/11/24 08:59 10 mcg DAILY ALLEY Administration
--- NOTE | 2024-04-11 17:27 | Hospitalist Progress Note ---
Date of Service April 11, 2024 Assessment & Plan (1) Recurrent falls: (2) Recurrent brain tumor: (3) Weakness: (4) Diabetes mellitus with hypoglycemia, with long-term current use of insulin: (5) H/O craniotomy: (6) BPH (benign prostatic hyperplasia): Plan 73yo M with a PMH of right temporal lobe GBM resection at [facility] on 07/14/2020, resection of recurrent GBM at [facility] on 01/31/2024, DM type II, Hyperlipidemia, BPH, Pulmonary HTN, history of PE, left leg DVT, Hedrick's Esophagus, anxiety and depression who presents with frequent falls. He is being managed for the following: Frequent falls Weakness Ambulatory dysfunction Recurrent GBM, ho Frequent falls since surgery for recurrent GBM in January 2024 Brain MRI from 03/02/24 - "no evidence of acute intracranial pathology. Status post right anterior temporal lobe tumor resection with heterogeneous enhancement of the posterior and medial margins, which may represent posttreatment effect or residual/recurrent tumor." CT head, cervical spine CT, CXR and pelvis XR without acute traumatic findings CT L spine w/ L4-5 and L5-S1 dis protrusion w/ mild to mod spinal stenosis. Neuro evaled, recs is mri brain w/wo con Keppra level pending PT/OT eval, likely to need rehab f/u mri brain Palliative care consult. DM type 2 (diabetes mellitus, type 2) A1c: 8.8 in Feb 2024 Insulin dependent Basal bolus insulin while in-patient per protocol BSG ACHS Hypertension BP elevated this evening Losartan and amlodipine were discontinued on previous admission due to + orthostatics and hypotension Consider resuming 1 agent if BP remains elevated BP now better Dyslipidemia: Continue atorvastatin History of pulmonary embolism History DVT/PE Historically anticoagulated on Xarelto but held 04/03/24 by PCP due to recurrent falls . Continue holding Seizure History seizure after 1st glioblastoma in 2020. Denies recurrent seizures Continue levetiracetam Levels pending BPH Continue tamsulosin DVT Ppx: SCDs Code status: FULL PCP: Tone Dispo: admitted to med/surg Admission and Anticipated Discharge Date Admission Date: April 10, 2024 Subjective patient was seen and examined at bedside. patient was lying in bed, on room air, NAD, resting comfortably. Patient denies headache, nausea, vomiting. Patient reports eating okay and moving bowels okay. Physical Exam Physical Exam: General Appearance: WD/WN, vitals as above, NAD, pleasant, conversing easily, appears chronically ill Head: normocephalic, well-healed craniotomy scar Eyes: normal inspection, PERRL, conjunctivae normal, anicteric sclerae ENT: external ear and nose normal, oropharynx normal Neck: normal visual inspection, trachea midline, no thyromegaly Respiratory: normal respiratory effort, lungs clear to auscultation, no wheeze, rales, rhonchi. No accessory muscle use Cardiovascular: regular rate, rhythm, normal peripheral pulses, no BLE edema. Vessels: no JVD Chest: normal inspection of chest Abdomen/GI: normal bowel sounds, soft, nontender, no hepatosplenomegaly Extremities/Musculoskeletal: TTP R paraspinous lumbar region, no deformity. No cyanosis or clubbing, extremities motor strength 5/5 Neurologic: PERRL, EOMI, accommodation nl, no face palsy, no dysarthria, CN's II-XI intact bilaterally and moves all extremities Psychiatric: A+Ox3, euthymic affect Skin: no rashes, normal color, warm/dry Results & Data Results & Data Vital Signs (Past 12 Hours) Vital Signs Temp Pulse Resp BP Pulse Ox O2 Del Method 04/11/24 15:24 36.7 C 73 16 113/75 96 Room Air 04/11/24 08:21 36.5 C 66 15 125/77 Room Air
--- NOTE | 2024-04-11 19:14 | Palliative Care Consultation ---
Date of Consultation April 11, 2024 Assessment & Plan (1) Recurrent falls: (2) Adult failure to thrive: (3) Weakness generalized: (4) Palliative care by specialist: Introduced Palliative Medicine and explained our role in patient's care. Patient and/or family were receptive to palliative services for goals of care discussions. Reviewed we are different from hospice, a home health nurse visiting service. (5) Discussion about advance care planning held with family member: I had a 30min telephonic ACP with Mrs Lam, she told me she is going to speak with her sons about a time for meeting on Tuesday in person at [facility]. She is leaning towards hospice but admits sons may have some worries. Pt is more than she can manage at home and she cannot physically meet his care needs. She feels Onur s dealing with denial and not accepting his decline. She feels rehab is not likely to help and he generally refuses PT/OT and has also refused the home therapy in a fairly consistent way. He has not made signif recovery and has in general been in a state of decline. She ask if we can find out the overall prognosis of his cancer and we agreed I would reach out to Dr Solo to ask what he feels overall prognosis is, but feels overall Onur does not have a lot of time. When he falls at home, she has to call their sons to come pick him up etc. We had a brief discussion about hospice. She is unsure if they can manage Onur at home, sons would need to part of it. (6) Glioblastoma of temporal lobe: (7) H/O craniotomy: (8) Recurrent brain tumor: Plan As above. Thank you for allowing us to participate in the ongoing care of this patient. Please page with any additional concerns. Hever Avila DNP Director, Palliative Medicine History of Present Illness Reason for Consultation: [facility],?hospice Attending Physician: Zenobia Spain MD History of Present Illness [facility] to see pt due to 6 missed appt with them inc falls at home, about 9 in the past 10 days Allergies Allergy/AdvReac Type Severity Reaction Status Date / Time erythromycin base AdvReac Unknown nausea/vomi Verified 12/11/21 09:20 ting Home Medications Medication Instructions Recorded Confirmed Type pantoprazole 40 mg tablet,delayed 40 mg PO QAM 06/18/18 04/10/24 History release multivitamin 1 tab PO DAILY 08/21/19 04/10/24 History carvedilol 3.125 mg tablet 3.125 mg PO BID 07/31/20 04/10/24 History diclofenac sodium 1 % topical gel 2 g topical QID PRN Pain 07/31/20 04/10/24 History polyethylene glycol 3350 17 17 g PO DAILY PRN constipation 07/31/20 04/10/24 History gram/dose oral powder (Miralax) ergocalciferol (vitamin D2) 10 mcg 10 mcg PO DAILY 07/10/21 04/10/24 History (400 unit) tablet sertraline 100 mg tablet (Zoloft) 100 mg PO DAILY 12/27/23 04/10/24 History gabapentin 300 mg capsule 300 mg PO TID 03/02/24 04/10/24 History levetiracetam 750 mg tablet 750 mg PO BID 03/02/24 04/10/24 History magnesium oxide 420 mg tablet 420 mg PO HS 03/02/24 04/10/24 History finasteride 5 mg tablet 5 mg PO HS #0 tabs 03/05/24 04/10/24 Rx tamsulosin 0.4 mg capsule 0.4 mg PO HS #0 caps 03/05/24 04/10/24 Rx atorvastatin 80 mg tablet 80 mg PO DAILY 04/10/24 04/10/24 History docusate sodium 100 mg tablet 100 mg PO BID PRN Constipation 04/10/24 04/10/24 History insulin glargine 100 unit/mL (3 12 unit subcut DAILY 04/10/24 04/10/24 History mL) subcutaneous pen lomustine 40 mg capsule See Rx Instructions .Route .COMPLEX 04/10/24 04/10/24 History lorazepam 0.5 mg tablet 0.5 mg PO TID PRN Anxiety 04/10/24 04/10/24 History Patient History Medical History (Updated 04/11/24 @ 19:18 by Kay Avila DNP) Diabetes Pulmonary hypertension Steroid-induced hyperglycemia Insomnia BPH (benign prostatic hyperplasia) Degenerative disc disease Severe protein-calorie malnutrition Fatigue Acute metabolic encephalopathy DVT prophylaxis Acute alteration in mental status History of pulmonary embolism Seizure History of agent Power exposure Anxiety Acute deep vein thrombosis (DVT) of left lower extremity Elevated beta-hydroxybutyrate Elevated AST (SGOT) Hyperglycemia due to type 2 diabetes mellitus Acute pulmonary embolism BPH (benign prostatic hyperplasia) Barretts esophagus DM type 2 (diabetes mellitus, type 2) Surgical History (Updated 04/01/24 @ 00:06 by Mercedes Wilkins) H/O prostate biopsy S/P brain surgery History of cataract surgery LEFT History of anesthesia reaction REMOTE HX - WITH ONE SURGERY (PT UNSURE WHAT SURGERY) - SLEPT FOR 2 DAYS AFTER, NO -RE-OCCURENCE History of endoscopy History of colonoscopy History of foot surgery L History of tonsillectomy and adenoidectomy H/O shoulder surgery R X 2 - MOST RECENT: DEC 2018 Family History Father , 72yo Diabetes Hypertension Sister Cancer Brain tumor 42yo Mother , 80yo Myocardial infarction Son No problems noted. Son No problems noted. 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 Feels Safe at Home: Yes Safety Concerns: Feels Safe At This Time Diet: regular caffeine: Yes (2 cups/day) during the past year weight has: decreased > 10 lbs Assistive Devices: Cane, Mechanical Lift, Scooter/Electric Scooter, Walker and Wheelchair Physical Exam Physical Exam: chronically ill male fatigued, lethargic, intermittently falls asleep cannot focus to sustain prolonged discussion alert to self, place, year resp effort WAL, no use of accessory muscles S1S2 abd softly distended gen weakness unable to follow commands or focus consistently skin pale, sl diaphoretic Results & Data Vital Signs (Past 12 Hours) Vital Signs Temp Pulse Resp BP Pulse Ox O2 Del Method 04/11/24 15:24 36.7 C 73 16 113/75 96 Room Air 04/11/24 08:21 36.5 C 66 15 125/77 Room Air Laboratory Results 04/11/24 04/11/24 04/11/24 Range/Units 16:46 11:36 08:00 WBC 5.10 (4.8-10.8) K/ul RBC 4.09 L (4.70-6.10) M/uL Hgb 12.4 L (14.0-18.0) g/dl Hct 37.0 L (42.0-52.0) % MCV 90.5 (80.0-100.0) fL MCH 30.3 (25.0-34.0) pg MCHC 33.5 (32.0-36.0) g/dL RDW Std Deviation 44.2 (36.4-46.3) fL RDW Coeff of Diandra 13.2 (11.5-14.5) % Plt Count 200 (130-400) K/uL MPV 9.7 (9.4-12.4) fL Immature Gran % (Auto) % Neut % (Auto) % Lymph % (Auto) % Falls % (Auto) % Eos % (Auto) % Baso % (Auto) % Neut # (Auto) (1.40-6.50) K/uL Lymph # (Auto) (1.20-3.40) K/uL Falls # (Auto) (0.11-0.59) K/uL Eos # (Auto) (0.00-0.50) K/uL Baso # (Auto) (0.00-0.20) K/uL Immature Gran # (Auto) (0.01-0.20) K/uL Sodium 137 (136-145) mmol/L Potassium 3.6 (3.5-5.1) mmol/L Chloride 102 (98-107) mmol/L Carbon Dioxide 29 (21-32) mmol/L Anion Gap 6 (3-11) BUN 19 (6-23) mg/dl Creatinine 0.69 (0.6-1.4) mg/dl Est Cr Clr Drug Dosing 92.5 ml/min eGFR 96.51 BUN/Creatinine Ratio 27.5 H (10-20) Glucose 123 H (70-99(Fasting)) mg/dl POC Glucose 133 H 149 H (70-99) mg/dl Calcium 9.1 (8.6-10.3) mg/dl Total Bilirubin (0.2-1.0) mg/dl Direct Bilirubin (0-0.2) mg/dl AST (13-39) U/L ALT (7-52) U/L Alkaline Phosphatase (34-104) U/L Total Protein (6.0-8.3) gm/dl Albumin (3.4-5.0) gm/dl Lipase (11-82) U/L Urine Color Urine Appearance (Clear) Urine pH (4.5-7.5) Ur Specific Sturgeon (1.000-1.030) Urine Protein (Negative) Urine Glucose (UA) (Negative) Urine Ketones (Negative) Urine Blood (Negative) Urine Nitrite (Negative) Urine Bilirubin (Negative) Urine Urobilinogen (Negative) Ur Leukocyte Esterase (Negative) Urine WBC (Auto) (0-5) /hpf Urine RBC (Auto) (0-2) /hpf U Hyaline Cast (Auto) (0-2) /lpf U Epithel Cells (Auto) (0-2) /hpf Urine Bacteria (Auto) (None Seen) Levetiracetam 04/11/24 04/10/24 04/10/24 Range/Units 07:40 21:05 21:04 WBC (4.8-10.8) K/ul RBC (4.70-6.10) M/uL Hgb (14.0-18.0) g/dl Hct (42.0-52.0) % MCV (80.0-100.0) fL MCH (25.0-34.0) pg MCHC (32.0-36.0) g/dL RDW Std Deviation (36.4-46.3) fL RDW Coeff of Diandra (11.5-14.5) % Plt Count (130-400) K/uL MPV (9.4-12.4) fL Immature Gran % (Auto) % Neut % (Auto) % Lymph % (Auto) % Falls % (Auto) % Eos % (Auto) % Baso % (Auto) % Neut # (Auto) (1.40-6.50) K/uL Lymph # (Auto) (1.20-3.40) K/uL Falls # (Auto) (0.11-0.59) K/uL Eos # (Auto) (0.00-0.50) K/uL Baso # (Auto) (0.00-0.20) K/uL Immature Gran # (Auto) (0.01-0.20) K/uL Sodium (136-145) mmol/L Potassium (3.5-5.1) mmol/L Chloride (98-107) mmol/L Carbon Dioxide (21-32) mmol/L Anion Gap (3-11) BUN (6-23) mg/dl Creatinine (0.6-1.4) mg/dl Est Cr Clr Drug Dosing ml/min eGFR BUN/Creatinine Ratio (10-20) Glucose (70-99(Fasting)) mg/dl POC Glucose 128 H 145 H (70-99) mg/dl Calcium (8.6-10.3) mg/dl Total Bilirubin (0.2-1.0) mg/dl Direct Bilirubin (0-0.2) mg/dl AST (13-39) U/L ALT (7-52) U/L Alkaline Phosphatase (34-104) U/L Total Protein (6.0-8.3) gm/dl Albumin (3.4-5.0) gm/dl Lipase (11-82) U/L Urine Color Urine Appearance (Clear) Urine pH (4.5-7.5) Ur Specific Sturgeon (1.000-1.030) Urine Protein (Negative) Urine Glucose (UA) (Negative) Urine Ketones (Negative) Urine Blood (Negative) Urine Nitrite (Negative) Urine Bilirubin (Negative) Urine Urobilinogen (Negative) Ur Leukocyte Esterase (Negative) Urine WBC (Auto) (0-5) /hpf Urine RBC (Auto) (0-2) /hpf U Hyaline Cast (Auto) (0-2) /lpf U Epithel Cells (Auto) (0-2) /hpf Urine Bacteria (Auto) (None Seen) Levetiracetam Pending 04/10/24 04/10/24 Range/Units 19:25 15:15 WBC 6.63 (4.8-10.8) K/ul RBC 4.36 L (4.70-6.10) M/uL Hgb 13.6 L (14.0-18.0) g/dl Hct 40.4 L (42.0-52.0) % MCV 92.7 (80.0-100.0) fL MCH 31.2 (25.0-34.0) pg MCHC 33.7 (32.0-36.0) g/dL RDW Std Deviation 45.4 (36.4-46.3) fL RDW Coeff of Diandra 13.3 (11.5-14.5) % Plt Count 225 (130-400) K/uL MPV 9.4 (9.4-12.4) fL Immature Gran % (Auto) 0.5 % Neut % (Auto) 65.8 % Lymph % (Auto) 20.8 % Falls % (Auto) 8.6 % Eos % (Auto) 3.8 % Baso % (Auto) 0.5 % Neut # (Auto) 4.37 (1.40-6.50) K/uL Lymph # (Auto) 1.38 (1.20-3.40) K/uL Falls # (Auto) 0.57 (0.11-0.59) K/uL Eos # (Auto) 0.25 (0.00-0.50) K/uL Baso # (Auto) 0.03 (0.00-0.20) K/uL Immature Gran # (Auto) 0.03 (0.01-0.20) K/uL Sodium 139 (136-145) mmol/L Potassium 4.1 (3.5-5.1) mmol/L Chloride 101 (98-107) mmol/L Carbon Dioxide 31 (21-32) mmol/L Anion Gap 7 (3-11) BUN 18 (6-23) mg/dl Creatinine 0.80 (0.6-1.4) mg/dl Est Cr Clr Drug Dosing 79.8 ml/min eGFR 92.29 BUN/Creatinine Ratio 22.5 H (10-20) Glucose 162 H (70-99(Fasting)) mg/dl POC Glucose (70-99) mg/dl Calcium 9.5 (8.6-10.3) mg/dl Total Bilirubin 0.7 (0.2-1.0) mg/dl Direct Bilirubin 0.1 (0-0.2) mg/dl AST 18 (13-39) U/L ALT 12 (7-52) U/L Alkaline Phosphatase 120 H (34-104) U/L Total Protein 6.9 (6.0-8.3) gm/dl Albumin 3.8 (3.4-5.0) gm/dl Lipase 19 (11-82) U/L Urine Color Yellow Urine Appearance Clear (Clear) Urine pH 6.0 (4.5-7.5) Ur Specific Sturgeon 1.025 (1.000-1.030) Urine Protein Trace H (Negative) Urine Glucose (UA) Negative (Negative) Urine Ketones Trace H (Negative) Urine Blood Negative (Negative) Urine Nitrite Negative (Negative) Urine Bilirubin Negative (Negative) Urine Urobilinogen Negative (Negative) Ur Leukocyte Esterase 3+ H (Negative) Urine WBC (Auto) >50 H (0-5) /hpf Urine RBC (Auto) 0-2 (0-2) /hpf U Hyaline Cast (Auto) 0-2 (0-2) /lpf U Epithel Cells (Auto) 0-2 (0-2) /hpf Urine Bacteria (Auto) None Seen (None Seen) Levetiracetam Diagnostic Findings Cervical Spine CT 04/10/24 14:07 CT cervical spine wo con CLINICAL HISTORY: Fall, blood thinners, confusion. COMPARISON: 03/02/2024 TECHNIQUE: Multiple axial CT images of the cervical spine were obtained without contrast. A dose lowering technique was utilized adhering to the principles of ALARA. FINDINGS: There are mild diffuse degenerative changes. There is mild motion artifact. No fracture or subluxation. IMPRESSION: No cervical spine fracture seen. ACT 112: Negative or not required by law. The above report was generated using voice recognition software. It may contain grammatical, syntax or spelling errors. Electronically signed by: Reji Ding M.D. 04/10/2024 2:41 PM Chest X-Ray 04/10/24 14:07 XR chest 1V portable CLINICAL HISTORY: trauma TECHNIQUE: Single frontal radiograph of the chest was obtained. Comparison: Comparison is made to chest radiograph 03/02/2024 FINDINGS: No lines and tubes are seen. Calcified aortic knob is seen. The lungs are clear. No evidence of pleural effusion or pneumothorax. IMPRESSION: No acute chest disease. ACT 112: Negative or not required by law. Electronically signed by: Genaro Borjas M.D. 04/10/2024 2:[address] 04/10/24 14:07 CT head/brain wo con CLINICAL HISTORY: Fall, blood thinners, confusion Technique: Contiguous axial CT images of the head were acquired from the base of the skull to the vertex without intravenous contrast administration. Images were viewed in brain, subdural and bone windows. Automated dose lowering techniques and/or adjustment according to patient size were utilized for this exam. Comparison: Comparison is made to CT head 03/02/2024 Findings: Areas of decreased attenuation are present in the periventricular and s ubcortical white matter bilaterally consistent with small vessel ischemic disease. Generalized cerebral volume loss with commensurate enlargement of the ventricles, sulci, and cisterns is also present. Right temporal encephalomalacia is again seen. There is ex vacuo dilation of the right lateral ventricle. These are unchanged from prior exam. Imaged portions of the paranasal sinuses and mastoid air cells are clear. The orbits appear normal. Right craniotomy changes are seen. Impression: No acute abnormality and in particular no evidence of intracranial hemorrhage. Postcraniotomy changes are again seen as above. ACT 112: Negative or not required by law. Electronically signed by: Genaro Borjas M.D. 04/10/2024 2:46 PM Pelvis X-Ray 04/10/24 14:07 XR pelvis 1-2V routine CLINICAL HISTORY: fall COMPARISON: Pelvis radiograph March 02, 2024. FINDINGS: Sacroiliac joints and symphysis pubis are intact. There are no fractures within the pelvis or hips. There is mild bilateral hip osteoarthritis. There are no osseous lesions. IMPRESSION: No fractures within the pelvis or hips. ACT 112: Negative or not required by law. Electronically signed by: Edmundo Lara M.D. 04/10/2024 2:[address] 04/10/24 17:27 Exam(s): CT L SPINE EXAM: CT Lumbar Spine Without Intravenous Contrast CLINICAL HISTORY: Reason for exam: lower back pain, R sided. TECHNIQUE: Axial computed tomography images of the lumbar spine without intravenous contrast. CTDI is 39.4 mGy and DLP is 1209.99 mGy-cm. Automated exposure control was utilized for the study. A dose lowering technique was utilized adhering to the principles of ALARA. COMPARISON: No relevant prior studies available. FINDINGS: Vertebrae: There is generalized decreased bony mineralization suggestive of underlying osteopenia/osteoporosis. There are scattered marginal osteophytes throughout the lumbar spine. No fracture or destructive osseous abnormalities are noted. Discs/spinal canal/neural foramina: There is a central L4-5 disc protrusion and mild to moderate associated spinal stenosis. There is a left paracentral disc bulge/protrusion at L5-S1. There is mild L4-5 and L5-S1 degenerative disc space narrowing. Intervertebral disc spaces are otherwise preserved. Soft tissues: There are scattered aortoiliac atherosclerotic calcifications. No retroperitoneal or paravertebral inflammatory changes are noted. IMPRESSION: 1. No acute osseous abnormalities are noted. 2. L4-5 posterior disc protrusion and mild to moderate spinal stenosis. 3. L5-S1 left paracentral disc bulge/protrusion. 4. Mild multilevel degenerative changes as described. Electronically signed by: Chava Philippe MD 04/10/24 21:29 PM PG Care Time/CCT Total # of Minutes Spent Total Time Spent with Patient: Total time spent is greater than 50% in coordination of care (as documented) at patient's floor/unit and/or counseling patient: I spent 100 minutes overall addressing this case: 20 min in medical data review/discussion with referring provider(s) and/or preparation for the visit 20 min in direct interaction with the patient/exam 30 min in Advance Care Planning/Goals of Care discussions as detailed above in note (must be >16min) 10 min in subsequent review and synthesis of assessment and plan 20 min communicating with other providers regarding the patient's case: primary tea, OSH onc, nursing [place] [address] IN/OBS CONSULT LVL 5,80M (25 - SIGNIFICANT, SEPARATELY IDENTIFIABLE ) Patient Type New Diagnoses Recurrent falls R29.6 Adult failure to thrive R62.7 Weakness generalized R53.1 Palliative care by specialist Z51.5 Discussion about advance care planning held with family member Z71.0 Glioblastoma of temporal lobe C71.2 H/O craniotomy Z98.890 Recurrent brain tumor D49.6
[2024-04-11] MEDS: LORazepam 1 MG TAB PO ONE (20:01)
[2024-04-11] MEDS: GADOBUTROL 65ML VIAL IV ONE (21:57)
--- NOTE | 2024-04-11 23:33 | Magnetic Resonance Report ---
Exam(s): MRI HEAD W/WO Contrast IV Amt: 8.3mL Gadavist given existing IV EXAM: MR Head Without and With Intravenous Contrast CLINICAL HISTORY: Reason for exam: recurrent gbm. TECHNIQUE: Magnetic resonance images of the head/brain without and with intravenous contrast in multiple planes. CONTRAST: Patient received 8.3mL Gadavist given existing IV of IV contrast COMPARISON: Prior brain MRI from March 02, 2024. FINDINGS: Brain: Status post resection of the anterior right temporal lobe. There is enhancing soft tissue at the posterior medial margin of the right temporal lobe measuring 33.0 x 16.3 x 10.7 mm concerning for residual or recurrent tumor. No hemorrhage. No acute infarct. The flow voids at the base the brain are intact. The dural venous sinuses are patent. Ventricles: Mild to moderate ventriculomegaly. Bones/joints: Status post right craniotomy. No acute fracture. Sinuses: Chronic right sphenoid sinusitis. No acute sinusitis. Mastoid air cells: Unremarkable as visualized. No mastoid effusion. Orbits: Bilateral lens replacements. IMPRESSION: Interval increase of enhancing soft tissue in the medial right temporal lobe concerning for residual/recurrent tumor. Electronically signed by: Lillie Jacobson MD 04/11/24 23:32 PM
[2024-04-12 08:22] LABS: Hematocrit (blood only) 37.4 % (42.0-52.0); Hemoglobin 12.7 g/dl (14.0-18.0); Mean Corpuscular Hemoglobin 30.9 pg (25.0-34.0); Mean Platelet Volume 9.3 fL (9.4-12.4); Platelet Count 184 K/uL (130-400); RDW Coefficient of Variation 13.2 % (11.5-14.5); RDW Standard Deviation 43.6 fL (36.4-46.3); Red Blood Count 4.11 M/uL (4.70-6.10); White Blood Count 4.79 K/ul (4.8-10.8)
[2024-04-12 08:41] LABS: BUN Creatinine Ratio 26.2 (10-20); Calcium 9.3 mg/dl (8.6-10.3); Creatinine Clr Calc Pharmacy 98.2 ml/min; Potassium 3.7 mmol/L (3.5-5.1)
[2024-04-12] MEDS: ADVANCED PROBIOTIC 625 MG CAPSULE PO SCH (10:09)
[2024-04-12] MEDS: AMPICILLIN 2,000 MG in SODIUM CHLOR 0.9% MINI-B 100 ML IV SCH (11:11)
--- NOTE | 2024-04-12 15:52 | Hospitalist Progress Note ---
Date of Service April 12, 2024 Assessment & Plan (1) Recurrent falls: (2) Recurrent brain tumor: (3) Weakness: (4) Diabetes mellitus with hypoglycemia, with long-term current use of insulin: (5) H/O craniotomy: (6) BPH (benign prostatic hyperplasia): Plan 73yo M with a PMH of right temporal lobe GBM resection at [facility] on 07/14/2020, resection of recurrent GBM at [facility] on 01/31/2024, DM type II, Hyperlipidemia, BPH, Pulmonary HTN, history of PE, left leg DVT, Hedrick's Esophagus, anxiety and depression who presents with frequent falls. He is being managed for the following: Frequent falls Weakness Ambulatory dysfunction Recurrent GBM, ho Frequent falls since surgery for recurrent GBM in January 2024 Brain MRI from 03/02/24 - "no evidence of acute intracranial pathology. Status post right anterior temporal lobe tumor resection with heterogeneous enhancement of the posterior and medial margins, which may represent posttreatment effect or residual/recurrent tumor." CT head, cervical spine CT, CXR and pelvis XR without acute traumatic findings CT L spine w/ L4-5 and L5-S1 dis protrusion w/ mild to mod spinal stenosis. Neuro evaled, recs is mri brain w/wo con MRI brain with interval increase of enhancing soft tissue in the medial right temporal lobe concerning for residual/recurrent tumor. Discussed with Dr. Solo 04/12, preferably stop lomustine but if family insists can continue once acute infection resolved with close f/u w/ OP oncology. Keppra level pending PT/OT eval, likely to need rehab Palliative care consult, family wants to take him to rehab, continue current mx. UTI: Ucx reviewed, c/w ampicillin 04/12. DM type 2 (diabetes mellitus, type 2) A1c: 8.8 in Feb 2024 Insulin dependent Basal bolus insulin while in-patient per protocol BSG ACHS Hypertension BP elevated this evening Losartan and amlodipine were discontinued on previous admission due to + orthostatics and hypotension Consider resuming 1 agent if BP remains elevated BP now better Dyslipidemia: Continue atorvastatin History of pulmonary embolism History DVT/PE Historically anticoagulated on Xarelto but held 04/03/24 by PCP due to recurrent falls . Continue holding Seizure History seizure after 1st glioblastoma in 2020. Denies recurrent seizures Continue levetiracetam Levels pending BPH Continue tamsulosin DVT Ppx: SCDs Code status: FULL PCP: Tone Dispo: admitted to med/surg Admission and Anticipated Discharge Date Admission Date: April 10, 2024 Subjective Patient was seen and examined at bedside. patient was lying in bed, on room air, NAD, resting comfortably. Sleeping, woke up to exam. Patient denies headache, nausea, vomiting. Patient reports eating okay and moving bowels 2-3 d ago, will add bowel regimen Physical Exam Physical Exam: General Appearance: WD/WN, vitals as above, NAD, pleasant, conversing easily, appears chronically ill Head: normocephalic, well-healed craniotomy scar Eyes: normal inspection, PERRL, conjunctivae normal, anicteric sclerae ENT: external ear and nose normal, oropharynx normal Neck: normal visual inspection, trachea midline, no thyromegaly Respiratory: normal respiratory effort, lungs clear to auscultation, no wheeze, rales, rhonchi. No accessory muscle use Cardiovascular: regular rate, rhythm, normal peripheral pulses, no BLE edema. Vessels: no JVD Chest: normal inspection of chest Abdomen/GI: normal bowel sounds, soft, nontender, no hepatosplenomegaly Extremities/Musculoskeletal: TTP R paraspinous lumbar region, no deformity. No cyanosis or clubbing, extremities motor strength 5/5 Neurologic: PERRL, EOMI, accommodation nl, no face palsy, no dysarthria, CN's II-XI intact bilaterally and moves all extremities Psychiatric: A+Ox3, euthymic affect Skin: no rashes, normal color, warm/dry Results & Data Results & Data Vital Signs (Past 12 Hours) Vital Signs Temp Pulse Resp BP Pulse Ox O2 Del Method 04/12/24 08:08 36.2 C L 66 17 173/94 H 95 Room Air
[2024-04-12] MEDS: POLYETHYLENE (MIRALAX) 17 GM PACK PO ONE (16:37)
[2024-04-12] MEDS: DOCUSATE SODIUM 100 MG CAP PO SCH (16:37)
--- NOTE | 2024-04-12 18:03 | Palliative Care Progress Note ---
Date of Service April 12, 2024 Assessment & Plan (1) Weakness generalized: (2) Recurrent falls: (3) Discussion about advance care planning held with family member: Plan: An 80min face to face ACP meeting was held with pt, , son and dtr in law from 1pm to 220pm in his room, at his bedside. Clinical events to date discussed. Family members shared their perspectives. Son notes specifically that pt has looked this ill before and bounced back, 3 years ago, and he believes pt can do it again with the help of acute rehab at [facility], and [facility] only. They do not want SNF in any capacity and son notes that cannot care or meet pt needs at home anymore, physically is limited and ultimately this adds to pt not having the right support and care. 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 He feels pt has a lot of resilience to be tapped into that can help him get better. Son is not prepared to discuss any other options or outcomes. I specifically advised them about the [facility]'s Concurrent Care benefit and encouraged they reach out to the VA team to determine if Concurrent Care is available to them in this region, as [place]. was not as vocal today as she had been with me last night during our phone call and today she states "I agree, I think you need to give him more rehab and get him stronger, he can get better, he just needs the right help." We agreed to a PT eval and will send referral to [facility]. I reached out to Dr Kat at [facility] and provided a brief update, we will send over records once a PT eval is on the record. I reviewed the 04/11/24 MRI with son - advised of progression, discussed with Dr Solo/onc who does not feel this is residual disease kaia since it has increased since brain MRI of Feb 2024. Measurements of the area of concern in right temp lobe have increased substantially. Son was thankful and appreciative to review these results but asked that for now, this is not discussed with pt as his mental status has only started to improve today and he feels news this heavy needs more emotional preparation. (4) Palliative care by specialist: Plan: Introduced Palliative Medicine and explained our role in patient's care. Patient and/or family were receptive to palliative services for goals of care discussions. Reviewed we are different from hospice, a home health nurse visiting service. (5) Glioblastoma of temporal lobe: (6) H/O craniotomy: (7) Recurrent brain tumor: (8) Vision loss, left eye: Plan: This may be surgery residual as it began post op and has not improved. The visual discrepancy and depth perception alter his ability to function in that he cannot sense if he grasping/holding things right, did he reach for it/is the size it appears to be accurate etc. This leads to confusion and frustration, along with headaches and fatigue worsening. Discussed this can be from the neuro deficit post op and how the nerves of the eye may have been impacted by surgery and tumor. Suggest we patch left eye and allow him use of dominant right eye which is not having issues. They are in agreement. Nursing notified and order written. Plan Patch the left eye and consider an opth eval while inpatient if possible. Family dynamics noted, son and do not have identical perceptions of the issues and their goals seem different when they are not together in same meeting. Patient has not been able to say much of what he wants other than he does not want a senior living, is willing to try rehab and wants t make his f amily happy. They have not been able to contemplate his mortality though son is now aware of the MRI showing progression and may be better able to face a discussion about mortality and shifting goals after some time to process emotionally. ACP meeting in details as documented above Patient will need ongoing Pall med follow up in OP clinic, we will schedule this closer to in. I updated Dr Kat at [facility]. Thank you for allowing us to participate in the ongoing care of this patient. Please page with any additional concerns. Hever Avila DNP Director, Palliative Medicine Admission and Anticipated Discharge Date Admission Date: April 10, 2024 Subjective Onur is more awake and alert this morning. Reclining in bed, ate nearly 100% of lunch but only about 25% breakfast Family coming this afternoon for a meeting Onur remains firm he does not want to go to a senior living He shares he was a [place] Vent with 3 active tours of duty and active Agent [place] exposure, he is 100% service [facility] with the [facility] He would prefer a VA facility over SNF but top of preference list is [facility] where he has had rehab and done well before. He denies any acute pain Still has issues with left eye - this is unchanged since surgery - everything thru left eye seems larger and interferes with motor function like grasping etc - has depth perception trouble. when left eye is closed and he uses only the right eye, things are fine, motor function is fine Review of Systems Review of Systems: All systems reviewed & are unremarkable except as noted in Subjective Physical Exam Physical Exam: chronically ill male fatigued, but more alert today bitemp wasting, healed surgical scars resp effort WAL, no use of accessory muscles S1S2 abd softly distended gen weakness, leans to the left even after repositioning able to follow commands consistently skin pale, sl diaphoretic AAOx3 Results & Data Vital Signs (Past 12 Hours) Vital Signs Temp Pulse Resp BP Pulse Ox O2 Del Method 04/12/24 15:55 36.6 C 70 17 149/81 H 95 Room Air 04/12/24 08:08 36.2 C L 66 17 173/94 H 95 Room Air Laboratory Results 04/12/24 04/12/24 04/12/24 Range/Units 16:56 11:41 08:03 WBC 4.79 L (4.8-10.8) K/ul RBC 4.11 L (4.70-6.10) M/uL Hgb 12.7 L (14.0-18.0) g/dl Hct 37.4 L (42.0-52.0) % MCV 91.0 (80.0-100.0) fL MCH 30.9 (25.0-34.0) pg MCHC 34.0 (32.0-36.0) g/dL RDW Std Deviation 43.6 (36.4-46.3) fL RDW Coeff of Diandra 13.2 (11.5-14.5) % Plt Count 184 (130-400) K/uL MPV 9.3 L (9.4-12.4) fL Immature Gran % (Auto) % Neut % (Auto) % Lymph % (Auto) % [place] % (Auto) % Eos % (Auto) % Baso % (Auto) % Neut # (Auto) (1.40-6.50) K/uL Lymph # (Auto) (1.20-3.40) K/uL [place] # (Auto) (0.11-0.59) K/uL Eos # (Auto) (0.00-0.50) K/uL Baso # (Auto) (0.00-0.20) K/uL Immature Gran # (Auto) (0.01-0.20) K/uL Sodium 139 (136-145) mmol/L Potassium 3.7 (3.5-5.1) mmol/L Chloride 105 (98-107) mmol/L Carbon Dioxide 29 (21-32) mmol/L Anion Gap 5 (3-11) BUN 17 (6-23) mg/dl Creatinine 0.65 (0.6-1.4) mg/dl Est Cr Clr Drug Dosing 98.2 ml/min eGFR 98.26 BUN/Creatinine Ratio 26.2 H (10-20) Glucose 141 H (70-99(Fasting)) mg/dl POC Glucose 139 H 139 H (70-99) mg/dl Calcium 9.3 (8.6-10.3) mg/dl Total Bilirubin (0.2-1.0) mg/dl Direct Bilirubin (0-0.2) mg/dl AST (13-39) U/L ALT (7-52) U/L Alkaline Phosphatase (34-104) U/L Total Protein (6.0-8.3) gm/dl Albumin (3.4-5.0) gm/dl Lipase (11-82) U/L Urine Color Urine Appearance (Clear) Urine pH (4.5-7.5) Ur Specific [place] (1.000-1.030) Urine Protein (Negative) Urine Glucose (UA) (Negative) Urine Ketones (Negative) Urine Blood (Negative) Urine Nitrite (Negative) Urine Bilirubin (Negative) Urine Urobilinogen (Negative) Ur Leukocyte Esterase (Negative) Urine WBC (Auto) (0-5) /hpf Urine RBC (Auto) (0-2) /hpf U Hyaline Cast (Auto) (0-2) /lpf U Epithel Cells (Auto) (0-2) /hpf Urine Bacteria (Auto) (None Seen) Levetiracetam 04/12/24 04/11/24 04/11/24 Range/Units 07:48 22:02 16:46 WBC (4.8-10.8) K/ul RBC (4.70-6.10) M/uL Hgb (14.0-18.0) g/dl Hct (42.0-52.0) % MCV (80.0-100.0) fL MCH (25.0-34.0) pg MCHC (32.0-36.0) g/dL RDW Std Deviation (36.4-46.3) fL RDW Coeff of Diandra (11.5-14.5) % Plt Count (130-400) K/uL MPV (9.4-12.4) fL Immature Gran % (Auto) % Neut % (Auto) % Lymph % (Auto) % [place] % (Auto) % Eos % (Auto) % Baso % (Auto) % Neut # (Auto) (1.40-6.50) K/uL Lymph # (Auto) (1.20-3.40) K/uL [place] # (Auto) (0.11-0.59) K/uL Eos # (Auto) (0.00-0.50) K/uL Baso # (Auto) (0.00-0.20) K/uL Immature Gran # (Auto) (0.01-0.20) K/uL Sodium (136-145) mmol/L Potassium (3.5-5.1) mmol/L Chloride (98-107) mmol/L Carbon Dioxide (21-32) mmol/L Anion Gap (3-11) BUN (6-23) mg/dl Creatinine (0.6-1.4) mg/dl Est Cr Clr Drug Dosing ml/min eGFR BUN/Creatinine Ratio (10-20) Glucose (70-99(Fasting)) mg/dl POC Glucose 159 H 118 H 133 H (70-99) mg/dl Calcium (8.6-10.3) mg/dl Total Bilirubin (0.2-1.0) mg/dl Direct Bilirubin (0-0.2) mg/dl AST (13-39) U/L ALT (7-52) U/L Alkaline Phosphatase (34-104) U/L Total Protein (6.0-8.3) gm/dl Albumin (3.4-5.0) gm/dl Lipase (11-82) U/L Urine Color Urine Appearance (Clear) Urine pH (4.5-7.5) Ur Specific [place] (1.000-1.030) Urine Protein (Negative) Urine Glucose (UA) (Negative) Urine Ketones (Negative) Urine Blood (Negative) Urine Nitrite (Negative) Urine Bilirubin (Negative) Urine Urobilinogen (Negative) Ur Leukocyte Esterase (Negative) Urine WBC (Auto) (0-5) /hpf Urine RBC (Auto) (0-2) /hpf U Hyaline Cast (Auto) (0-2) /lpf U Epithel Cells (Auto) (0-2) /hpf Urine Bacteria (Auto) (None Seen) Levetiracetam 04/11/24 04/11/24 04/11/24 Range/Units 11:36 08:00 07:40 WBC 5.10 (4.8-10.8) K/ul RBC 4.09 L (4.70-6.10) M/uL Hgb 12.4 L (14.0-18.0) g/dl Hct 37.0 L (42.0-52.0) % MCV 90.5 (80.0-100.0) fL MCH 30.3 (25.0-34.0) pg MCHC 33.5 (32.0-36.0) g/dL RDW Std Deviation 44.2 (36.4-46.3) fL RDW Coeff of Diandra 13.2 (11.5-14.5) % Plt Count 200 (130-400) K/uL MPV 9.7 (9.4-12.4) fL Immature Gran % (Auto) % Neut % (Auto) % Lymph % (Auto) % [place] % (Auto) % Eos % (Auto) % Baso % (Auto) % Neut # (Auto) (1.40-6.50) K/uL Lymph # (Auto) (1.20-3.40) K/uL [place] # (Auto) (0.11-0.59) K/uL Eos # (Auto) (0.00-0.50) K/uL Baso # (Auto) (0.00-0.20) K/uL Immature Gran # (Auto) (0.01-0.20) K/uL Sodium 137 (136-145) mmol/L Potassium 3.6 (3.5-5.1) mmol/L Chloride 102 (98-107) mmol/L Carbon Dioxide 29 (21-32) mmol/L Anion Gap 6 (3-11) BUN 19 (6-23) mg/dl Creatinine 0.69 (0.6-1.4) mg/dl Est Cr Clr Drug Dosing 92.5 ml/min eGFR 96.51 BUN/Creatinine Ratio 27.5 H (10-20) Glucose 123 H (70-99(Fasting)) mg/dl POC Glucose 149 H 128 H (70-99) mg/dl Calcium 9.1 (8.6-10.3) mg/dl Total Bilirubin (0.2-1.0) mg/dl Direct Bilirubin (0-0.2) mg/dl AST (13-39) U/L ALT (7-52) U/L Alkaline Phosphatase (34-104) U/L Total Protein (6.0-8.3) gm/dl Albumin (3.4-5.0) gm/dl Lipase (11-82) U/L Urine Color Urine Appearance (Clear) Urine pH (4.5-7.5) Ur Specific [place] (1.000-1.030) Urine Protein (Negative) Urine Glucose (UA) (Negative) Urine Ketones (Negative) Urine Blood (Negative) Urine Nitrite (Negative) Urine Bilirubin (Negative) Urine Urobilinogen (Negative) Ur Leukocyte Esterase (Negative) Urine WBC (Auto) (0-5) /hpf Urine RBC (Auto) (0-2) /hpf U Hyaline Cast (Auto) (0-2) /lpf U Epithel Cells (Auto) (0-2) /hpf Urine Bacteria (Auto) (None Seen) Levetiracetam 04/10/24 04/10/24 04/10/24 Range/Units 21:05 21:04 19:25 WBC (4.8-10.8) K/ul RBC (4.70-6.10) M/uL Hgb (14.0-18.0) g/dl Hct (42.0-52.0) % MCV (80.0-100.0) fL MCH (25.0-34.0) pg MCHC (32.0-36.0) g/dL RDW Std Deviation (36.4-46.3) fL RDW Coeff of Diandra (11.5-14.5) % Plt Count (130-400) K/uL MPV (9.4-12.4) fL Immature Gran % (Auto) % Neut % (Auto) % Lymph % (Auto) % [place] % (Auto) % Eos % (Auto) % Baso % (Auto) % Neut # (Auto) (1.40-6.50) K/uL Lymph # (Auto) (1.20-3.40) K/uL [place] # (Auto) (0.11-0.59) K/uL Eos # (Auto) (0.00-0.50) K/uL Baso # (Auto) (0.00-0.20) K/uL Immature Gran # (Auto) (0.01-0.20) K/uL Sodium (136-145) mmol/L Potassium (3.5-5.1) mmol/L Chloride (98-107) mmol/L Carbon Dioxide (21-32) mmol/L Anion Gap (3-11) BUN (6-23) mg/dl Creatinine (0.6-1.4) mg/dl Est Cr Clr Drug Dosing ml/min eGFR BUN/Creatinine Ratio (10-20) Glucose (70-99(Fasting)) mg/dl POC Glucose 145 H (70-99) mg/dl Calcium (8.6-10.3) mg/dl Total Bilirubin (0.2-1.0) mg/dl Direct Bilirubin (0-0.2) mg/dl AST (13-39) U/L ALT (7-52) U/L Alkaline Phosphatase (34-104) U/L Total Protein (6.0-8.3) gm/dl Albumin (3.4-5.0) gm/dl Lipase (11-82) U/L Urine Color Yellow Urine Appearance Clear (Clear) Urine pH 6.0 (4.5-7.5) Ur Specific [place] 1.025 (1.000-1.030) Urine Protein Trace H (Negative) Urine Glucose (UA) Negative (Negative) Urine Ketones Trace H (Negative) Urine Blood Negative (Negative) Urine Nitrite Negative (Negative) Urine Bilirubin Negative (Negative) Urine Urobilinogen Negative (Negative) Ur Leukocyte Esterase 3+ H (Negative) Urine WBC (Auto) >50 H (0-5) /hpf Urine RBC (Auto) 0-2 (0-2) /hpf U Hyaline Cast (Auto) 0-2 (0-2) /lpf U Epithel Cells (Auto) 0-2 (0-2) /hpf Urine Bacteria (Auto) None Seen (None Seen) Levetiracetam Pending 04/10/24 Range/Units 15:15 WBC 6.63 (4.8-10.8) K/ul RBC 4.36 L (4.70-6.10) M/uL Hgb 13.6 L (14.0-18.0) g/dl Hct 40.4 L (42.0-52.0) % MCV 92.7 (80.0-100.0) fL MCH 31.2 (25.0-34.0) pg MCHC 33.7 (32.0-36.0) g/dL RDW Std Deviation 45.4 (36.4-46.3) fL RDW Coeff of Diandra 13.3 (11.5-14.5) % Plt Count 225 (130-400) K/uL MPV 9.4 (9.4-12.4) fL Immature Gran % (Auto) 0.5 % Neut % (Auto) 65.8 % Lymph % (Auto) 20.8 % [place] % (Auto) 8.6 % Eos % (Auto) 3.8 % Baso % (Auto) 0.5 % Neut # (Auto) 4.37 (1.40-6.50) K/uL Lymph # (Auto) 1.38 (1.20-3.40) K/uL [place] # (Auto) 0.57 (0.11-0.59) K/uL Eos # (Auto) 0.25 (0.00-0.50) K/uL Baso # (Auto) 0.03 (0.00-0.20) K/uL Immature Gran # (Auto) 0.03 (0.01-0.20) K/uL Sodium 139 (136-145) mmol/L Potassium 4.1 (3.5-5.1) mmol/L Chloride 101 (98-107) mmol/L Carbon Dioxide 31 (21-32) mmol/L Anion Gap 7 (3-11) BUN 18 (6-23) mg/dl Creatinine 0.80 (0.6-1.4) mg/dl Est Cr Clr Drug Dosing 79.8 ml/min eGFR 92.29 BUN/Creatinine Ratio 22.5 H (10-20) Glucose 162 H (70-99(Fasting)) mg/dl POC Glucose (70-99) mg/dl Calcium 9.5 (8.6-10.3) mg/dl Total Bilirubin 0.7 (0.2-1.0) mg/dl Direct Bilirubin 0.1 (0-0.2) mg/dl AST 18 (13-39) U/L ALT 12 (7-52) U/L Alkaline Phosphatase 120 H (34-104) U/L Total Protein 6.9 (6.0-8.3) gm/dl Albumin 3.8 (3.4-5.0) gm/dl Lipase 19 (11-82) U/L Urine Color Urine Appearance (Clear) Urine pH (4.5-7.5) Ur Specific [place] (1.000-1.030) Urine Protein (Negative) Urine Glucose (UA) (Negative) Urine Ketones (Negative) Urine Blood (Negative) Urine Nitrite (Negative) Urine Bilirubin (Negative) Urine Urobilinogen (Negative) Ur Leukocyte Esterase (Negative) Urine WBC (Auto) (0-5) /hpf Urine RBC (Auto) (0-2) /hpf U Hyaline Cast (Auto) (0-2) /lpf U Epithel Cells (Auto) (0-2) /hpf Urine Bacteria (Auto) (None Seen) Levetiracetam Diagnostic Findings Cervical Spine CT 04/10/24 14:07 CT cervical spine wo con CLINICAL HISTORY: Fall, blood thinners, confusion. COMPARISON: 03/02/2024 TECHNIQUE: Multiple axial CT images of the cervical spine were obtained without contrast. A dose lowering technique was utilized adhering to the principles of ALARA. FINDINGS: There are mild diffuse degenerative changes. There is mild motion artifact. No fracture or subluxation. IMPRESSION: No cervical spine fracture seen. ACT 112: Negative or not required by law. The above report was generated using voice recognition software. It may contain grammatical, syntax or spelling errors. Electronically signed by: Reji Ding M.D. 04/10/2024 2:41 PM Chest X-Ray 04/10/24 14:07 XR chest 1V portable CLINICAL HISTORY: trauma TECHNIQUE: Single frontal radiograph of the chest was obtained. Comparison: Comparison is made to chest radiograph 03/02/2024 FINDINGS: No lines and tubes are seen. Calcified aortic knob is seen. The lungs are clear. No evidence of pleural effusion or pneumothorax. IMPRESSION: No acute chest disease. ACT 112: Negative or not required by law. Electronically signed by: Genaro Borjas M.D. 04/10/2024 2:[address] 04/10/24 14:07 CT head/brain wo con CLINICAL HISTORY: Fall, blood thinners, confusion Technique: Contiguous axial CT images of the head were acquired from the base of the skull to the vertex without intravenous contrast administration. Images were viewed in brain, subdural and bone windows. Automated dose lowering techniques and/or adjustment according to patient size were utilized for this exam. Comparison: Comparison is made to CT head 03/02/2024 Findings: Areas of decreased attenuation are present in the periventricular and subcortical white matter bilaterally consistent with small vessel ischemic disease. Generalized cerebral volume loss with commensurate enlargement of the ventricles, sulci, and cisterns is also present. Right temporal encephalomalacia is again seen. There is ex vacuo dilation of the right lateral ventricle. These are unchanged from prior exam. Imaged portions of the paranasal sinuses and mastoid air cells are clear. The orbits appear normal. Right craniotomy changes are seen. Impression: No acute abnormality and in particular no evidence of intracranial hemorrhage. Postcraniotomy changes are again seen as above. ACT 112: Negative or not required by law. Electronically signed by: Genaro Borjas M.D. 04/10/2024 2:46 PM Pelvis X-Ray 04/10/24 14:07 XR pelvis 1-2V routine CLINICAL HISTORY: fall COMPARISON: Pelvis radiograph March 02, 2024. FINDINGS: Sacroiliac joints and symphysis pubis are intact. There are no fractures within the pelvis or hips. There is mild bilateral hip osteoarthritis. There are no osseous lesions. IMPRESSION: No fractures within the pelvis or hips. ACT 112: Negative or not required by law. Electronically signed by: Edmundo Lara M.D. 04/10/2024 2:[address] 04/10/24 17:27 Exam(s): CT L SPINE EXAM: CT Lumbar Spine Without Intravenous Contrast CLINICAL HISTORY: Reason for exam: lower back pain, R sided. TECHNIQUE: Axial computed tomography images of the lumbar spine without intravenous contrast. CTDI is 39.4 mGy and DLP is 1209.99 mGy-cm. Automated exposure control was utilized for the study. A dose lowering technique was utilized adhering to the principles of ALARA. COMPARISON: No relevant prior studies available. FINDINGS: Vertebrae: There is generalized decreased bony mineralization suggestive of underlying osteopenia/osteoporosis. There are scattered marginal osteophytes throughout the lumbar spine. No fracture or destructive osseous abnormalities are noted. Discs/spinal canal/neural foramina: There is a central L4-5 disc protrusion and mild to moderate associated spinal stenosis. There is a left paracentral disc bulge/protrusion at L5-S1. There is mild L4-5 and L5-S1 degenerative disc space narrowing. Intervertebral disc spaces are otherwise preserved. Soft tissues: There are scattered aortoiliac atherosclerotic calcifications. No retroperitoneal or paravertebral inflammatory changes are noted. IMPRESSION: 1. No acute osseous abnormalities are noted. 2. L4-5 posterior disc protrusion and mild to moderate spinal stenosis. 3. L5-S1 left paracentral disc bulge/protrusion. 4. Mild multilevel degenerative changes as described. Electronically signed by: Chava Philippe MD 04/10/24 21:29 PM Brain MRI 04/11/24 17:24 Exam(s): MRI HEAD W/WO Contrast IV Amt: 8.3mL Gadavist given existing IV EXAM: MR Head Without and With Intravenous Contrast CLINICAL HISTORY: Reason for exam: recurrent gbm. TECHNIQUE: Magnetic resonance images of the head/brain without and with intravenous contrast in multiple planes. CONTRAST: Patient received 8.3mL Gadavist given existing IV of IV contrast COMPARISON: Prior brain MRI from March 02, 2024. FINDINGS: Brain: Status post resection of the anterior right temporal lobe. There is enhancing soft tissue at the posterior medial margin of the right temporal lobe measuring 33.0 x 16.3 x 10.7 mm concerning for residual or recurrent tumor. No hemorrhage. No acute infarct. The flow voids at the base the brain are intact. The dural venous sinuses are patent. Ventricles: Mild to moderate ventriculomegaly. Bones/joints: Status post right craniotomy. No acute fracture. Sinuses: Chronic right sphenoid sinusitis. No acute sinusitis. Mastoid air cells: Unremarkable as visualized. No mastoid effusion. Orbits: Bilateral lens replacements. IMPRESSION: Interval increase of enhancing soft tissue in the medial right temporal lobe concerning for residual/recurrent tumor. Electronically signed by: Lillie Jacobson MD 04/11/24 23:32 PM PG Care Time/CCT Total # of Minutes Spent Total Time Spent with Patient: Total time spent is greater than 50% in coordination of care (as documented) at patient's floor/unit and/or counseling patient: I spent 150 minutes overall addressing this case: 15 min in medical data review/discussion with referring provider(s) and/or preparation for the visit incl review of MRI with OSH onc 15 min in direct interaction with the patient/exam 80 min in Advance Care Planning/Goals of Care discussions as detailed above in note (must be >16min) 15 min in subsequent review and synthesis of assessment and plan 25 min communicating with other providers regarding the patient's case: OSH onc, primary team, nursing, care mgt, [facility]/Dr. Kat. Advanced Care Planning 53291 Advanced Care Planning 30 Min 29481 Advanced Care Planning Additional 30 Min [place] [address] SUB INP/OBS CARE 3/50MIN (25 - SIGNIFICANT, SEPARATELY IDENTIFIABLE ) Patient Type Established Medical Decision Making High Complexity Diagnoses Weakness generalized R53.1 Recurrent falls R29.6 Discussion about advance care planning held with family member Z71.0 Palliative care by specialist Z51.5 Glioblastoma of temporal lobe C71.2 H/O craniotomy Z98.890 Recurrent brain tumor D49.6 Vision loss, left eye H54.62 Additional Codes Advanced Care Planning - 99252 Advanced Care Planning 30 Min: 25276 Advanced Care Planning 30 Min ([id number]) Advanced Care Planning - 96096 Advanced Care Planning Additional 30 Min: 33659 Advanced Care Planning Additional 30 Min ([id number])
[2024-04-13 08:47] LABS: Hemoglobin 12.1 g/dl (14.0-18.0); Mean Corpuscular Hemoglobin 31.3 pg (25.0-34.0); Mean Corpuscular Hgb Conc 34.6 g/dL (32.0-36.0); Mean Corpuscular Volume 90.4 fL (80.0-100.0); Mean Platelet Volume 10.2 fL (9.4-12.4); Platelet Count 183 K/uL (130-400); RDW Coefficient of Variation 13.2 % (11.5-14.5); RDW Standard Deviation 42.9 fL (36.4-46.3); Red Blood Count 3.87 M/uL (4.70-6.10)
[2024-04-13 09:13] LABS: BUN Creatinine Ratio 30.3 (10-20); Calcium 8.8 mg/dl (8.6-10.3); Creatinine Clr Calc Pharmacy 96.7 ml/min; Potassium 3.5 mmol/L (3.5-5.1)
--- NOTE | 2024-04-13 14:43 | Hospitalist Progress Note ---
Date of Service April 13, 2024 Assessment & Plan (1) Recurrent falls: (2) Recurrent brain tumor: (3) Weakness: (4) Diabetes mellitus with hypoglycemia, with long-term current use of insulin: (5) H/O craniotomy: (6) BPH (benign prostatic hyperplasia): Plan 73yo M with a PMH of right temporal lobe GBM resection at [facility] on 07/14/2020, resection of recurrent GBM at [facility] on 01/31/2024, DM type II, Hyperlipidemia, BPH, Pulmonary HTN, history of PE, left leg DVT, Hedrick's Esophagus, anxiety and depression who presents with frequent falls. He is being managed for the following: Frequent falls Weakness Ambulatory dysfunction Recurrent GBM, ho Frequent falls since surgery for recurrent GBM in January 2024 Brain MRI from 03/02/24 - "no evidence of acute intracranial pathology. Status post right anterior temporal lobe tumor resection with heterogeneous enhancement of the posterior and medial margins, which may represent posttreatment effect or residual/recurrent tumor." CT head, cervical spine CT, CXR and pelvis XR without acute traumatic findings CT L spine w/ L4-5 and L5-S1 dis protrusion w/ mild to mod spinal stenosis. Neuro evaled, recs is mri brain w/wo con MRI brain with interval increase of enhancing soft tissue in the medial right temporal lobe concerning for residual/recurrent tumor. Discussed with Dr. Solo 04/12, preferably stop lomustine but if family insists can continue once acute infection resolved with close f/u w/ OP oncology. Keppra level pending PT/OT eval, likely to need rehab Palliative care consult, family wants to take him to rehab, continue current mx. UTI: Ucx reviewed, c/w ampicillin 04/12. DM type 2 (diabetes mellitus, type 2) A1c: 8.8 in Feb 2024 Insulin dependent Basal bolus insulin while in-patient per protocol [facility] Hypertension BP elevated this evening Losartan and amlodipine were discontinued on previous admission due to + orthostatics and hypotension Consider resuming 1 agent if BP remains elevated BP now better Dyslipidemia: Continue atorvastatin History of pulmonary embolism History DVT/PE Historically anticoagulated on Xarelto but held 04/03/24 by PCP due to recurrent falls . Continue holding Seizure History seizure after 1st glioblastoma in 2020. Denies recurrent seizures Continue levetiracetam Levels pending Diminished vision left eye: It has been there since GBM resection in Jan 2024 per pt, no increase in vision loss, non painful eye. f/u w/ ophthalmology upon dc. BPH Continue tamsulosin DVT Ppx: SCDs Code status: FULL PCP: Tone Dispo: admitted to med/surg Pt's Aimee was given a phone call, updated on MRI finding, poor prognosis, UTI and its treatment, possibly holding lomustine on dc until she f/u oncology as OP. She voiced understanding and is aware of the poor prognosis. Admission and Anticipated Discharge Date Admission Date: April 10, 2024 Subjective Patient was seen and examined at bedside. patient was lying in bed, on room air, NAD, resting comfortably. Sleeping, woke up to exam. Patient denies headache, nausea, vomiting. Patient reports eating okay and m oving bowels today Pt denies lt eye pain, reports similar/stable level of diminished vision x left eye since his GBM resection in Jan 2024. Physical Exam Physical Exam: General Appearance: WD/WN, vitals as above, NAD, pleasant, conversing easily, appears chronically ill Head: normocephalic, well-healed craniotomy scar Eyes: normal inspection, PERRL, conjunctivae normal, anicteric sclerae . diminished vision left eye, no ophthalmoplegia. ENT: external ear and nose normal, oropharynx normal Neck: normal visual inspection, trachea midline, no thyromegaly Respiratory: normal respiratory effort, lungs clear to auscultation, no wheeze, rales, rhonchi. No accessory muscle use Cardiovascular: regular rate, rhythm, normal peripheral pulses, no BLE edema. Vessels: no JVD Chest: normal inspection of chest Abdomen/GI: normal bowel sounds, soft, nontender, no hepatosplenomegaly Extremities/Musculoskeletal: TTP R paraspinous lumbar region, no deformity. No cyanosis or clubbing, extremities motor strength 5/5 Neurologic: PERRL, EOMI, accommodation nl, no face palsy, no dysarthria, CN's II-XI intact bilaterally and moves all extremities Psychiatric: A+Ox3, euthymic affect Skin: no rashes, normal color, warm/dry Results & Data Results & Data Vital Signs (Past 12 Hours) Vital Signs Temp Pulse Resp BP Pulse Ox O2 Del Method 04/13/24 09:01 36.5 C 76 18 167/92 H 92 Room Air 04/13/24 08:00 37.0 C 75 16 168/107 H 94 Room Air
[2024-04-14 06:57] LABS: BUN Creatinine Ratio 32.3 (10-20); Calcium 8.8 mg/dl (8.6-10.3); Creatinine Clr Calc Pharmacy 98.2 ml/min; Magnesium 1.8 mg/dl (1.7-2.4); Potassium 3.7 mmol/L (3.5-5.1)
[2024-04-14] MEDS: POLYETHYLENE (MIRALAX) 17 GM PACK PO PRN (09:19)
[2024-04-14] MEDS: ACETAMINOPHEN 325 MG TAB PO PRN (09:19)
[2024-04-14] MEDS: SOD PHOSPHATE/SOD BIPHOSPHATE ENEMA 132 ML BTL PR PRN (12:56)
--- NOTE | 2024-04-14 16:31 | Hospitalist Progress Note ---
Date of Service April 14, 2024 Assessment & Plan (1) Recurrent falls: (2) Recurrent brain tumor: (3) Weakness: (4) Diabetes mellitus with hypoglycemia, with long-term current use of insulin: (5) H/O craniotomy: (6) BPH (benign prostatic hyperplasia): Plan 73yo M with a PMH of right temporal lobe GBM resection at [facility] on 07/14/2020, resection of recurrent GBM at [facility] on 01/31/2024, DM type II, Hyperlipidemia, BPH, Pulmonary HTN, history of PE, left leg DVT, Hedrick's Esophagus, anxiety and depression who presents with frequent falls. He is being managed for the following: Frequent falls Weakness Ambulatory dysfunction Recurrent GBM, ho Frequent falls since surgery for recurrent GBM in January 2024 Brain MRI from 03/02/24 - "no evidence of acute intracranial pathology. Status post right anterior temporal lobe tumor resection with heterogeneous enhancement of the posterior and medial margins, which may represent posttreatment effect or residual/recurrent tumor." CT head, cervical spine CT, CXR and pelvis XR without acute traumatic findings CT L spine w/ L4-5 and L5-S1 dis protrusion w/ mild to mod spinal stenosis. Neuro evaled, recs is mri brain w/wo con MRI brain with interval increase of enhancing soft tissue in the medial right temporal lobe concerning for residual/recurrent tumor. Discussed with Dr. Solo 04/12, preferably stop lomustine but if family insists can continue once acute infection resolved with close f/u w/ OP oncology. Keppra level wnl PT/OT eval, likely to need rehab Palliative care consult, wants to take him to home w/ hospice, continue current mx. wants full code until pt is discharged on hospice. UTI: Ucx reviewed, c/w ampicillin 04/12. DM type 2 (diabetes mellitus, type 2) A1c: 8.8 in Feb 2024 Insulin dependent Basal bolus insulin while in-patient per protocol [facility] Hypertension BP elevated this evening Losartan and amlodipine were discontinued on previous admission due to + orthostatics and hypotension Consider resuming 1 agent if BP remains elevated --- resume amlod at 5 mg daily. BP now better Dyslipidemia: Continue atorvastatin History of pulmonary embolism History DVT/PE Historically anticoagulated on Xarelto but held 04/03/24 by PCP due to recurrent falls . Continue holding Seizure History seizure after 1st glioblastoma in 2020. Denies recurrent seizures Continue levetiracetam Levels pending Diminished vision left eye: It has been there since GBM resection in Jan 2024 per pt, no increase in vision loss, non painful eye. f/u w/ ophthalmology upon dc. BPH Continue tamsulosin DVT Ppx: SCDs Code status: FULL PCP: Tone Dispo: admitted to med/surg Pt's Giorgi was given a phone call 04/13, updated on MRI finding, poor prognosis, UTI and its treatment, possibly holding lomustine on dc until she f/u oncology as OP. She voiced understanding and is aware of the poor prognosis. Pt's Giorgi was reached out via phone 04/14, she states they have decided to take him home w/ hospice. CM consulted to help w/ dc plan. Admission and Anticipated Discharge Date Admission Date: April 10, 2024 Subjective Patient was seen and examined at bedside. Patient was lying in bed, on room air, NAD, resting comfortably. Patient denies headache, nausea, vomiting. Patient reports eating okay and moving bowels today Pt denies lt eye pain, reports similar/stable level of diminished vision x left eye since his GBM resection in Jan 2024. D/w patient regarding his MRI brain finding and my d/w w/ his OP oncologist. He is aware of recurrent GBM and poor prognosis. Pt stated he will discuss hospice w/ his . f/u with his giorgi over the phone later in the day, she states they have discussed and they both are agreeable to home w/hospice. She wants to take him to home w/ hospice tomorrow if possible, i consulted case management to help with this. We discussed about his code status which is full code now, and explained to her what hospice entails. She stated she would like to keep it full code until pt is discharged on hospice. Physical Exam Physical Exam: General Appearance: WD/WN, vitals as above, NAD, pleasant, conversing easily, appears chronically ill Head: normocephalic, well-healed craniotomy scar Eyes: normal inspection, PERRL, conjunctivae normal, anicteric sclerae . diminished vision left eye, no ophthalmoplegia. ENT: external ear and nose normal, oropharynx normal Neck: normal visual inspection, trachea midline, no thyromegaly Respiratory: normal respiratory effort, lungs clear to auscultation, no wheeze, rales, rhonchi. No accessory muscle use Cardiovascular: regular rate, rhythm, normal peripheral pulses, no BLE edema. Vessels: no JVD Chest: normal inspection of chest Abdomen/GI: normal bowel sounds, soft, nontender, no hepatosplenomegaly Extremities/Musculoskeletal: TTP R paraspinous lumbar region, no deformity. No cyanosis or clubbing, extremities motor strength 5/5 Neurologic: PERRL, EOMI, accommodation nl, no face palsy, no dysarthria, CN's II-XI intact bilaterally and moves all extremities Psychiatric: A+Ox3, euthymic affect Skin: no rashes, normal color, warm/dry Results & Data Results & Data Vital Signs (Past 12 Hours) Vital Signs Temp Pulse Resp BP Pulse Ox O2 Del Method 04/14/24 10:00 Room Air 04/14/24 08:14 36.7 C 74 18 174/82 H 94 Room Air 04/14/24 06:31 162/91 H
[2024-04-14] MEDS: amLODIPine BESYLATE 5 MG TAB PO ONE (17:39)
[2024-04-15 08:14] LABS: BUN Creatinine Ratio 29.2 (10-20); Creatinine Clr Calc Pharmacy 98.2 ml/min; Magnesium 1.9 mg/dl (1.7-2.4); Potassium 3.5 mmol/L (3.5-5.1)
[2024-04-15] MEDS: amLODIPine BESYLATE 5 MG TAB PO SCH (08:46)
--- NOTE | 2024-04-15 16:24 | Hospitalist Progress Note ---
Date of Service April 15, 2024 Assessment & Plan (1) Recurrent falls: (2) Recurrent brain tumor: (3) Weakness: (4) Diabetes mellitus with hypoglycemia, with long-term current use of insulin: (5) H/O craniotomy: (6) BPH (benign prostatic hyperplasia): Plan 73yo M with a PMH of right temporal lobe GBM resection at [facility] on 07/14/2020, resection of recurrent GBM at [facility] on 01/31/2024, DM type II, Hyperlipidemia, BPH, Pulmonary HTN, history of PE, left leg DVT, Hedrick's Esophagus, anxiety and depression who presents with frequent falls. He is being managed for the following: Frequent falls Weakness Ambulatory dysfunction Recurrent GBM, ho Frequent falls since surgery for recurrent GBM in January 2024 Brain MRI from 03/02/24 - "no evidence of acute intracranial pathology. Status post right anterior temporal lobe tumor resection with heterogeneous enhancement of the posterior and medial margins, which may represent posttreatment effect or residual/recurrent tumor." CT head, cervical spine CT, CXR and pelvis XR without acute traumatic findings CT L spine w/ L4-5 and L5-S1 dis protrusion w/ mild to mod spinal stenosis. Neuro evaled, recs is mri brain w/wo con MRI brain with interval increase of enhancing soft tissue in the medial right temporal lobe concerning for residual/recurrent tumor. Discussed with Dr. Solo 04/12, preferably stop lomustine but if family insists can continue once acute infection resolved with close f/u w/ OP oncology. Keppra level wnl PT/OT eval, likely to need rehab Palliative care consult, wants to take him to home w/ hospice, continue current mx. wants full code until pt is discharged on hospice. UTI: Ucx reviewed, c/w ampicillin 04/12. DM type 2 (diabetes mellitus, type 2) A1c: 8.8 in Feb 2024 Insulin dependent Basal bolus insulin while in-patient per protocol [facility] Hypertension BP elevated this evening Losartan and amlodipine were discontinued on previous admission due to + orthostatics and hypotension Consider resuming 1 agent if BP remains elevated --- resumed amlod at 5 mg daily 04/14, continue. BP now better Dyslipidemia: Continue atorvastatin History of pulmonary embolism History DVT/PE Historically anticoagulated on Xarelto but held 04/03/24 by PCP due to recurrent falls . Continue holding Seizure History seizure after 1st glioblastoma in 2020. Denies recurrent seizures Continue levetiracetam Levels pending Diminished vision left eye: It has been there since GBM resection in Jan 2024 per pt, no increase in vision loss, non painful eye. f/u w/ ophthalmology upon dc. BPH Continue tamsulosin DVT Ppx: SCDs Code status: FULL PCP: Tone Dispo: admitted to med/surg Pt's Aimee was given a phone call 04/13, updated on MRI finding, poor prognosis, UTI and its treatment, possibly holding lomustine on dc until she f/u oncology as OP. She voiced understanding and is aware of the poor prognosis. Pt's Aimee was reached out via phone 04/14, she states they have decided to take him home w/ hospice. CM consulted to help w/ dc plan. Admission and Anticipated Discharge Date Admission Date: April 10, 2024 Subjective Patient was seen and examined at bedside. Patient was lying in bed, on room air, NAD, resting comfortably. Is wide awake today. Patient denies headache, nausea, vomiting. Patient reports eating okay and moving bowels today Of note, Pt denies lt eye pain, reports similar/stable level of diminished vision x left eye since his GBM resection in Jan 2024. Pt states he had chat w/ his regarding discharge on hospice, he is open to the plan and is planning to further discuss with her later today. Physical Exam Physical Exam: General Appearance: WD/WN, vitals as above, NAD, pleasant, conversing easily, appears chronically ill Head: normocephalic, well-healed craniotomy scar Eyes: normal inspection, PERRL, conjunctivae normal, anicteric sclerae . diminished vision left eye, no ophthalmoplegia. ENT: external ear and nose normal, oropharynx normal Neck: normal visual inspection, trachea midline, no thyromegaly Respiratory: normal respiratory effort, lungs clear to auscultation, no wheeze, rales, rhonchi. No accessory muscle use Cardiovascular: regular rate, rhythm, normal peripheral pulses, no BLE edema. Vessels: no JVD Chest: normal inspection of chest Abdomen/GI: normal bowel sounds, soft, nontender, no hepatosplenomegaly Extremities/Musculoskeletal: TTP R paraspinous lumbar region, no deformity. No cyanosis or clubbing, extremities motor strength 5/5 Neurologic: PERRL, EOMI, accommodation nl, no face palsy, no dysarthria, CN's II-XI intact bilaterally and moves all extremities Psychiatric: A+Ox3, euthymic affect Skin: no rashes, normal color, warm/dry Results & Data Results & Data Vital Signs (Past 12 Hours) Vital Signs Temp Pulse Resp BP Pulse Ox O2 Del Method 04/15/24 15:23 36.3 C L 73 14 153/84 H 94 Room Air 04/15/24 08:45 Room Air 04/15/24 07:42 36.3 C L 69 18 163/75 H 96 Room Air
[2024-04-16 07:31] LABS: BUN Creatinine Ratio 18.9 (10-20); Calcium 8.8 mg/dl (8.6-10.3); Creatinine Clr Calc Pharmacy 86.3 ml/min; Magnesium 1.9 mg/dl (1.7-2.4); Potassium 3.4 mmol/L (3.5-5.1)
[2024-04-16] MEDS: POTASSIUM CHLORIDE CRTAB 20 MEQ TABCR PO STA (10:03)
--- NOTE | 2024-04-16 16:37 | Hospitalist Progress Note ---
Date of Service April 16, 2024 Assessment & Plan (1) Recurrent falls: (2) Recurrent brain tumor: (3) Weakness: (4) Diabetes mellitus with hypoglycemia, with long-term current use of insulin: (5) H/O craniotomy: (6) BPH (benign prostatic hyperplasia): Plan 73yo M with a PMH of right temporal lobe GBM resection [place] [facility] [place], resection of recurrent GBM at [facility] on 01/31/2024, DM type II, Hyperlipidemia, BPH, Pulmonary HTN, history of PE, left leg DVT, Hedrick's Esophagus, anxiety and depression who presents with frequent falls. He is being managed for the following: Frequent falls Weakness Ambulatory dysfunction Recurrent GBM, ho Frequent falls since surgery for recurrent GBM in January 2024 Brain MRI from 03/02/24 - "no evidence of acute intracranial pathology. Status post right anterior temporal lobe tumor resection with heterogeneous enhancement of the posterior and medial margins, which may represent posttreatment effect or residual/recurrent tumor." CT head, cervical spine CT, CXR and pelvis XR without acute traumatic findings CT L spine w/ L4-5 and L5-S1 dis protrusion w/ mild to mod spinal stenosis. Neuro evaled, recs is mri brain w/wo con MRI brain with interval increase of enhancing soft tissue in the medial right temporal lobe concerning for residual/recurrent tumor. Discussed with Dr. Solo 04/12, preferably stop lomustine but if family insists can continue once acute infection resolved with close f/u w/ OP oncology. Keppra level wnl PT/OT eval, likely to need rehab Palliative care consult, wants to take him to home w/ hospice, continue current mx. wants full code until pt is discharged on hospice. UTI: Ucx reviewed, c/w ampicillin 04/12. DM type 2 (diabetes mellitus, type 2) A1c: 8.8 in Feb 2024 Insulin dependent Basal bolus insulin while in-patient per protocol [facility] Hypertension BP elevated this evening Losartan and amlodipine were discontinued on previous admission due to + orthostatics and hypotension Consider resuming 1 agent if BP remains elevated --- resumed amlod at 5 mg daily 04/14, continue. BP now better Dyslipidemia: Continue atorvastatin History of pulmonary embolism History DVT/PE Historically anticoagulated on Xarelto but held 04/03/24 by PCP due to recurrent falls . Continue holding Seizure History seizure after 1st glioblastoma in 2020. Denies recurrent seizures Continue levetiracetam Levels pending Diminished vision left eye: It has been there since GBM resection in Jan 2024 per pt, no increase in vision loss, non painful eye. f/u w/ ophthalmology upon dc. BPH Continue tamsulosin DVT Ppx: SCDs Code status: FULL PCP: Tone Dispo: admitted to med/surg , CM assisting w/ dc plan , home w/ hospice. Pt's Aimee was given a phone call 04/13, updated on MRI finding, poor prognosis, UTI and its treatment, possibly holding lomustine on dc until she f/u oncology as OP. She voiced understanding and is aware of the poor prognosis. Pt's Aimee was reached out via phone 04/14, she states they have decided to take him home w/ hospice. CM consulted to help w/ dc plan. Admission and Anticipated Discharge Date Admission Date: April 10, 2024 Subjective Patient was seen and examined at bedside. Patient was lying in bed, on room air, NAD, resting comfortably. is more sleepy today. Patient denies headache, nausea, vomiting. Of note, Pt denies lt eye pain, reports similar/stable level of diminished vision x left eye since his GBM resection in Jan 2024. Physical Exam Physical Exam: General Appearance: WD/WN, vitals as above, NAD, pleasant, conversing easily, appears chronically ill Head: normocephalic, well-healed craniotomy scar Eyes: normal inspection, PERRL, conjunctivae normal, anicteric sclerae . diminished vision left eye, no ophthalmoplegia. ENT: external ear and nose normal, oropharynx normal Neck: normal visual inspection, trachea midline, no thyromegaly Respiratory: normal respiratory effort, lungs clear to auscultation, no wheeze, rales, rhonchi. No accessory muscle use Cardiovascular: regular rate, rhythm, normal peripheral pulses, no BLE edema. Vessels: no JVD Chest: normal inspection of chest Abdomen/GI: normal bowel sounds, soft, nontender, no hepatosplenomegaly Extremities/Musculoskeletal: TTP R paraspinous lumbar region, no deformity. No cyanosis or clubbing, extremities motor strength 5/5 Neurologic: PERRL, EOMI, accommodation nl, no face palsy, no dysarthria, CN's II-XI intact bilaterally and moves all extremities Psychiatric: A+Ox3, euthymic affect Skin: no rashes, normal color, warm/dry Results & Data Results & Data Vital Signs (Past 12 Hours) Vital Signs Temp Pulse Resp BP Pulse Ox O2 Del Method 04/16/24 16:06 36.3 C L 74 18 143/73 H 96 Room Air 04/16/24 07:21 36.4 C L 69 18 176/74 H 96 Room Air 04/16/24 07:10 Room Air
[2024-04-17 07:10] VITALS: RESP 16
[2024-04-17 07:58] LABS: BUN Creatinine Ratio 20.5 (10-20); Calcium 9.1 mg/dl (8.6-10.3); Creatinine Clr Calc Pharmacy 87.4 ml/min; Potassium 3.6 mmol/L (3.5-5.1)
--- NOTE | 2024-04-17 12:14 | Discharge Summary ---
Date of Service April 17, 2024 Admission HPI Per Admitting Provider This is a 73yo M with a PMH of right temporal lobe GBM resection at [facility] on 07/14/2020, resection of recurrent GBM at [facility] on 01/31/2024, DM type II, Hyperlipidemia, BPH, Pulmonary HTN, history of PE, left leg DVT, Hedrick's Esophagus, anxiety and depression who presents with frequent falls. Since undergoing surgery for recurrent GBM in January and returning home from rehab, patient has had multiple falls. Was admitted to our service in February for multiple falls as well as visual changes and neuro recommended discontinuing Depakote. Brain MRI done on 03/02/24 revealed "no evidence of acute intracranial pathology. Status post right anterior temporal lobe tumor resection with heterogeneous enhancement of the posterior and medial margins, which may represent posttreatment effect or residual/recurrent tumor. Recommend short- term interval follow-up to evaluate for stability." Hypotension was noted during admission with + orthostatics and intermittent hypoglycemia, which were felt to be main contributors to weakness and falls. Losartan and amlodipine were discontinued and lantus dose was decreased. PT/OT evaluated and patient returned home with home health. Over the past week, patient has had 6-7 falls at home and ambulating with his walker. A few days ago, he fell shutting the door outside and fell onto his backside, hurting his right lower back. States he has had some intermittent radicular pain down each leg since then. Was trying to get out of bed today and required help due to this back pain and once standing, lost his balance with rolling walker and fell backwards, hitting the back of his head on the TV stand. No LOC. Was directed by Dr. Wayne to HOLD his Xarelto at 04/03/24 appointment due to weakness and recurrent falls, so has not taken since then. Endorsing intermittent weakness in legs that is no different than last hospitalization but feels like he can't get his strength back post surgery in January. Notes this intermittent weakness L>R, similar to before. No F/C, CP, SOB, N/V, abd pain, dysuria, diarrhea or constipation. Denies any other recent medication changes. ambulates with a cane and does not feel she can adequately care for him at home right now. Admission Exam Per Admitting Provider General Appearance: WD/WN, vitals as above, NAD, sitting up in bed, pleasant, conversing easily, appears chronically ill Head: normocephalic, well-healed craniotomy scar Eyes: normal inspection, PERRL, conjunctivae normal, anicteric sclerae ENT: external ear and nose normal, oropharynx normal Neck: normal visual inspection, trachea midline, no thyromegaly Respiratory: normal respiratory effort, lungs clear to auscultation, no wheeze, rales, rhonchi. No accessory muscle use Cardiovascular: regular rate, rhythm, normal peripheral pulses, no BLE edema. Vessels: no JVD Chest: normal inspection of chest Abdomen/GI: normal bowel sounds, soft, nontender, no hepatosplenomegaly Extremities/Musculoskeletal: TTP R paraspinous lumbar region, no deformity. No cyanosis or clubbing, extremities motor strength 5/5 Neurologic: PERRL, EOMI, accommodation nl, no face palsy, no dysarthria, CN's II-XI intact bilaterally and moves all extremities Psychiatric: A+Ox3, euthymic affect Skin: no rashes, normal color, warm/dry Principal Diagnosis Frequent falls Weakness Ambulatory dysfunction Recurrent GBM, ho UTI, completed atb rx Discharge Exam General Appearance: WD/WN, vitals as above, NAD, pleasant, conversing easily, appears chronically ill Head: normocephalic, well-healed craniotomy scar Eyes: normal inspection, PERRL, conjunctivae normal, anicteric sclerae . diminished vision left eye, no ophthalmoplegia. ENT: external ear and nose normal, oropharynx normal Neck: normal visual inspection, trachea midline, no thyromegaly Respiratory: normal respiratory effort, lungs clear to auscultation, no wheeze, rales, rhonchi. No accessory muscle use Cardiovascular: regular rate, rhythm, normal peripheral pulses, no BLE edema. Vessels: no JVD Chest: normal inspection of chest Abdomen/GI: normal bowel sounds, soft, nontender, no hepatosplenomegaly Extremities/Musculoskeletal: TTP R paraspinous lumbar region, no deformity. No cyanosis or clubbing, extremities motor strength 5/5 Neurologic: PERRL, EOMI, accommodation nl, no face palsy, no dysarthria, CN's II-XI intact bilaterally and moves all extremities Psychiatric: A+Ox3, euthymic affect Skin: no rashes, normal color, warm/dry Discharge Data Allergies Allergy/AdvReac Type Severity Reaction Status Date / Time erythromycin base AdvReac Unknown nausea/vomi Verified 12/11/21 09:20 ting Consultations 04/10/24 20:32 Consult Neurology Routine 04/11/24 09:54 Consult Palliative Care Routine Ordered Studies 04/10/24 14:07 CT cervical spine wo con Stat CT head/brain wo con Stat 04/10/24 17:27 CT lumbar spine wo con Routine 04/11/24 17:24 MRI Brain [MR brain wo/w con] Routine Hospital Course (1) Recurrent falls: (2) Recurrent brain tumor: (3) Weakness: (4) Diabetes mellitus with hypoglycemia, with long-term current use of insulin: (5) H/O craniotomy: (6) BPH (benign prostatic hyperplasia): Plan 73yo M with a PMH of right temporal lobe GBM resection at [facility] on 07/14/2020, resection of recurrent GBM at [facility] on 01/31/2024, DM type II, Hyperlipidemia, BPH, Pulmonary HTN, history of PE, left leg DVT, Hedrick's Esophagus, anxiety and depression who presents with frequent falls. He was managed for the following: Frequent falls Weakness Ambulatory dysfunction Recurrent GBM, ho Frequent falls since surgery for recurrent GBM in January 2024 Brain MRI from 03/02/24 - "no evidence of acute intracranial pathology. Status post right anterior temporal lobe tumor resection with heterogeneous enhancement of the posterior and medial margins, which may represent posttreatment effect or residual/recurrent tumor." CT head, cervical spine CT, CXR and pelvis XR without acute traumatic findings CT L spine w/ L4-5 and L5-S1 dis protrusion w/ mild to mod spinal stenosis. Neuro evaled, recs is mri brain w/wo con MRI brain with interval increase of enhancing soft tissue in the medial right temporal lobe concerning for residual/recurrent tumor. Discussed with Dr. Solo 04/12, preferably stop lomustine but if family insists can continue once acute infection resolved with close f/u w/ OP oncology. Keppra level wnl Palliative care consult, wants to take him to home w/ hospice, continue current mx. wants full code until pt is discharged on hospice. Pt and his were made aware to hold lomustine until they hold further discussion with their cancer doctor as outpatient. UTI: Ucx reviewed, c/w ampicillin 04/12. completed Rx. DM type 2 (diabetes mellitus, type 2) A1c: 8.8 in Feb 2024 Insulin dependent Basal bolus insulin while in-patient per protocol [facility] Hypertension BP elevated this evening Losartan and amlodipine were discontinued on previous admission due to + orthostatics and hypotension Consider resuming 1 agent if BP remains elevated --- resumed amlod at 5 mg daily 04/14, continue. BP now better Dyslipidemia: Continue atorvastatin History of pulmonary embolism History DVT/PE Historically anticoagulated on Xarelto but held 04/03/24 by PCP due to recurrent falls . Continue holding Seizure History seizure after 1st glioblastoma in 2020. Denies recurrent seizures Continue levetiracetam Diminished vision left eye: It has been there since GBM resection in Jan 2024 per pt, no increase in vision loss, non painful eye. f/u w/ ophthalmology upon dc. BPH Continue tamsulosin DVT Ppx: SCDs Code status: FULL PCP: Tone Dispo: admitted to med/surg , CM assisting w/ dc plan , home w/ hospice. Pt's Aimee was given a phone call 04/13, updated on MRI finding, poor prognosis, UTI and its treatment, possibly holding lomustine on dc until she f/u oncology as OP. She voiced understanding and is aware of the poor prognosis. Pt's Aimee was reached out via phone 04/14, she states they have decided to take him home w/ hospice. CM consulted to help w/ dc plan. Patient is being discharged home with hospice, amlodipine has been added, patient completed course for UTI. Home Health Attestation I certify that this patient is under my care and that I, or a physicians child life assistant working with me, had a face to-face encounter that meets the home health [id number] encounter requirements with this patient. The encounter with the patient was in whole, or in part, for the following medical condition, which is the primary reason for home health care (list medical condition): I certify that, based on my findings, the following services are medically necessary home health services: My clinical findings support the need for the above services because: Further, I certify that my clinical findings support that this patient is homebound (i.e. absences from home require considerable and taxing effort and are for medical reasons or scientologist services or infrequently or of short duration when for other reasons) because: Certification for Home Health Services: Based on the above findings, I certify that this patient is confined to the home and needs intermittent [facility] care, physical therapy and/or speech therapy or continues to need occupational therapy. The patient is under my care, and I have initiated the establishment of the plan of care. This patient will be followed by a physician who will periodically review the plan of care. Total Time Total Time Spent Total Time Spent (In Minutes): 35 Discharge Plan Discharge Items Patient Disposition: Hospice - Home Reason For Visit: FREQUENT FALLS Discharge Diagnosis: Frequent falls Weakness Ambulatory dysfunction Recurrent GBM, ho UTI, completed atb rx Activity: Resume your previous activity Non-emergency contact: Primary Care Provider Call non-emergency contact if: you have any medication questions and your symptoms worsen Follow-up/Referrals: Apolinar Wayne DO [Primary Care Provider] - (Date & Time 04/17/2024 2:20 PM Provider: Apolinar Wayne DO [facility] [address], [place] ) Diet: Carb Consistent or DM2 Addtl Attending Provider Instructions: You are being discharged to home with hospice. Hospice providers will take over care of your medications and overall health once you are discharged. You completed the course of antibiotic treatment for UTI while in hospital. Since your blood pressure were on the higher side, amlodipine has been restarted. Pending Studies at Discharge: No Stand-Alone Forms: My [facility] Medications and DC Order Prescriptions: New amlodipine [Norvasc] 5 mg Tablet 5 mg PO QAM Qty: 30 0RF Continued diclofenac sodium 1 % gel 2 g topical QID PRN (Reason: Pain) Rx Instructions: apply to single elbow, wrist or hand; for hand includes palm/fingers/back of hand polyethylene glycol 3350 [Miralax] 17 gram/dose powder 17 g PO DAILY PRN (Reason: constipation ) sertraline [Zoloft] 100 mg tablet 100 mg PO DAILY ergocalciferol (vitamin D2) 10 mcg (400 unit) tablet 10 mcg PO DAILY multivitamin Tablet 1 tab PO DAILY pantoprazole 40 mg Tablet,Delayed Release (Dr/Ec) 40 mg PO QAM carvedilol 3.125 mg tablet 3.125 mg PO BID atorvastatin 80 mg tablet 80 mg PO DAILY lorazepam 0.5 mg tablet 0.5 mg PO TID PRN (Reason: Anxiety) docusate sodium 100 mg Tablet 100 mg PO BID PRN (Reason: Constipation) insulin glargine 100 unit/mL (3 mL) insulin pen 12 unit SUBCUT DAILY magnesium oxide 420 mg Tablet 420 mg PO HS gabapentin 300 mg capsule 300 mg PO TID levetiracetam 750 mg tablet 750 mg PO BID tamsulosin 0.4 mg Capsule 0.4 mg PO HS Qty: 0 0RF finasteride 5 mg Tablet 5 mg PO HS Qty: 0 0RF Held lomustine 40 mg Capsule See Rx Instructions .ROUTE .COMPLEX Hold Instructions: Resume on 04/26/24. Hold until further discussion with your cancer doctor as outpatient. Rx Instructions: Take 4 Capsules by mouth every 6 weeks. Take on an empty stomach Discharge Orders: Discharge Order (Routine); Ordered 04/17/24 Ordered By: Zenobia Spain Admission Data Admit Date/Time: 04/10/24 16:03 Attending Provider: Zenobia Spain Admit Provider: Nazario Morgan Primary Care Provider: Apolinar Wayne Other Providers: Inocencio Miller; Nupur Echeverria; Kay Avila; [facility]
[2024-04-17 14:29] VITALS: BP 141/87; TEMP 97.5; O2SAT 95
[2024-04-17 14:33] VITALS: PULSE 77
--- NOTE | 2024-04-18 09:45 | Coding Query ---
CODING QUERY To promote full compliance with coding requirements relating to patient care, provider participation is requested in all cases of optical instrument repairer uncertainty. Please assist us with the question(s) below: Coding Question(s): Pt admitted with repeat falls; history of Glioblastoma- last resected 02/11. Pt went home with hospice. Please document, if known or suspected, the cause of the repeat falls. Thank you! [place] [facility] Physician's Response(s): fall likely iso advancing recurrent glioblastoma Principal Diagnosis: "that condition established after study, to be chiefly responsible for occasioning the admission of the patient to the hospital for care." Co-Existing Principal Diagnosis: "when two or more diagnoses equally meet the criteria for principal diagnosis as determined by the circumstances of admission, diagnostic work up, and/or therapy provided, and the Alphabetic Index, Tabular List, or another coding guideline does not provide sequencing direction, any one of the diagnoses may be sequenced first." "When the physician has documented what appears to be a current diagnosis in the body of the record, but has not included the diagnosis in the final diagnostic statement, the physician should be asked whether the diagnosis should be added." (Source Coding Clinic 2 QTR90. p3-4) ANT
== END 2024-04-17 16:15 | disposition hospice, home (50) | DRG 55 ==
LOC: ED 13:26 → 3W 16:03 → SUATTDRO 16:03 → 3W 17:38

== ENCOUNTER 2024-04-27 16:09 | Inpatient (IN) ==
--- NOTE | 2024-04-27 16:28 | Emergency Department Note ---
Impression & Plan Generalized weakness, Ambulatory dysfunction, Thrombocytopenia ED Provider Note HISTORY OF PRESENT ILLNESS: Patient is a 73-year-old male presenting with concern for dehydration. Patient reports that he had friends and family visiting today and they were concerned that he might be dehydrated. Patient reports he has not been eating well since his discharge from the hospital 7 days ago. However, he states that he has been drinking lots of fluids. He denies any abdominal pain, nausea or vomiting. Denies any recent fevers. Denies any chest pain or shortness of breath. Reports feeling slightly weak over the last 24 hours. Denies any known sick contact exposures. Patient's presents later and reports that the patient has had significant deconditioning recently and she is unable to care for him at home. They are interested in getting him placed at a skilled nursing. ROS: as above PHYSICAL EXAM: Constitutional: Patient appears in no acute distress. HENT: Head: Normocephalic and atraumatic. Eyes: EOMI, PERRL Mouth/Throat: Mucous membranes dry. Neck: Trachea midline. Neck supple. Cardiovascular: Tachycardic with regular rhythm. No murmurs, rubs or gallops. Intact distal pulses. Pulmonary/Chest: No respiratory distress. Breath sounds clear and equal bilaterally. No wheezes or rales. Abdominal: Abdomen soft, no tenderness, rebound or guarding. Musculoskeletal: No edema, tenderness or deformity noted. Skin: Warm and dry. No rash, erythema, pallor or cyanosis Psychiatric: Appropriate mood and affect for situation. Neurological: Alert and keenly responsive. CN II-XII grossly intact, moving all extremities equally and fully. MDM: - Vitals signs showed hypertension - History obtained via patient. History as above. - Chronic conditions affecting care: right temporal lobe GBM; DM-2; HLD; BPH; HTN; DVT/PE hx; Hedrick's esophagus; anxiety/depression - Differential diagnoses include, but are not limited to: CVA; intracranial hemorrhage; ACS; pneumonia; UTI; electrolyte abnormality; dehydration; viral syndrome - Order placed for continuous cardiac monitoring. At this time, monitor showed rate of 80 bpm with normal sinus rhythm, per my interpretation. - External medical records reviewed. Discharge summary dated 04/17/2024 was reviewed. Patient was admitted at that time for frequent falls and weakness. Per the documentation, palliative care was consulted and wanted him to be at home with hospice. - EKG interpreted by myself showed normal sinus rhythm. Rate 78 bpm. QT 424. No acute ischemic changes. - Laboratory workup interpreted by myself showed normal WBC; thrombocytopenia (plt 128); normal PT/INR; stable electrolytes; normal troponin; normal TSH; normal lactate - Viral respiratory panel negative - CXR negative for pneumonia, per my interpretation - CT head wo contrast negative for acute pathology. - UA ordered - Given that is primary retail delivery driver and she is unable to care for the patient at home, will admit for placement and further evaluation. - Discussion was had with caser about patient's case and need for admission - Hospitalist, Dr. Luke, consulted for admission - [facility] ASSESSMENT AND PLAN: Diagnosis: generalized weakness; ambulatory dysfunction; thrombocytopenia Plan: admit Past Med/Surg History Problem List (Updated 04/27/24 @ 21:05 by Barbara Ruiz MD) Thrombocytopenia (Acute) Ambulatory dysfunction (Acute) Generalized weakness (Acute) Vision loss, left eye Discussion about advance care planning held with family member Palliative care by specialist Weakness generalized Adult failure to thrive (Acute) Recurrent falls (Acute) Concussion without loss of consciousness (Acute) Diabetes mellitus with hypoglycemia, with long-term current use of insulin Orthostatic hypotension Fall (Acute) Weakness (Acute) Recurrent brain tumor (Chronic 12/06/23) H/O craniotomy 06/24/20 for right temporal GBM 01/31/24 at [facility] 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) Medical History (Updated 04/27/24 @ 21:05 by Barbara Ruiz MD) Diabetes Pulmonary hypertension Steroid-induced hyperglycemia Insomnia BPH (benign prostatic hyperplasia) Degenerative disc disease Severe protein-calorie malnutrition Fatigue Acute metabolic encephalopathy DVT prophylaxis Acute alteration in mental status History of pulmonary embolism Seizure 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 Anxiety Acute deep vein thrombosis (DVT) of left lower extremity Elevated beta-hydroxybutyrate Elevated AST (SGOT) Hyperglycemia due to type 2 diabetes mellitus Acute pulmonary embolism BPH (benign prostatic hyperplasia) Barretts esophagus DM type 2 (diabetes mellitus, type 2) Surgical History (Updated 04/01/24 @ 00:06 by Mercedes Wilkins) H/O prostate biopsy S/P brain surgery History of cataract surgery LEFT History of anesthesia reaction REMOTE HX - WITH ONE SURGERY (PT UNSURE WHAT SURGERY) - SLEPT FOR 2 DAYS AFTER, NO -RE-OCCURENCE History of endoscopy History of colonoscopy History of foot surgery L History of tonsillectomy and adenoidectomy H/O shoulder surgery R X 2 - MOST RECENT: DEC 2018 Family History Father , 72yo Diabetes Hypertension Sister Cancer Brain tumor 42yo Mother , 80yo Myocardial infarction Son No problems noted. Son No problems noted. 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 [employer] Feels Safe at Home: Yes Diet: regular caffeine: Yes (2 cups/day) during the past year weight has: decreased > 10 lbs Assistive Devices: Cane, Mechanical Lift, Scooter/Electric Scooter, Walker and Wheelchair Allergies Allergies Allergy/AdvReac Type Severity Reaction Status Date / Time erythromycin base AdvReac Unknown nausea/vomi Verified 12/11/21 09:20 ting Home Meds Home Medications Medication Instructions Recorded Confirmed pantoprazole 40 mg tablet,delayed 40 mg PO QAM 06/18/18 04/10/24 release multivitamin 1 tab PO DAILY 08/21/19 04/10/24 carvedilol 3.125 mg tablet 3.125 mg PO BID 07/31/20 04/10/24 diclofenac sodium 1 % topical gel 2 g topical QID PRN Pain 07/31/20 04/10/24 polyethylene glycol 3350 17 17 g PO DAILY PRN constipation 07/31/20 04/10/24 gram/dose oral powder (Miralax) ergocalciferol (vitamin D2) 10 mcg 10 mcg PO DAILY 07/10/21 04/10/24 (400 unit) tablet sertraline 100 mg tablet (Zoloft) 100 mg PO DAILY 12/27/23 04/10/24 gabapentin 300 mg capsule 300 mg PO TID 03/02/24 04/10/24 levetiracetam 750 mg tablet 750 mg PO BID 03/02/24 04/10/24 magnesium oxide 420 mg tablet 420 mg PO HS 03/02/24 04/10/24 atorvastatin 80 mg tablet 80 mg PO DAILY 04/10/24 04/10/24 docusate sodium 100 mg tablet 100 mg PO BID PRN Constipation 04/10/24 04/10/24 insulin glargine 100 unit/mL (3 12 unit subcut DAILY 04/10/24 04/10/24 mL) subcutaneous pen lomustine 40 mg capsule See Rx Instructions .Route .COMPLEX 04/10/24 04/10/24 lorazepam 0.5 mg tablet 0.5 mg PO TID PRN Anxiety 04/10/24 04/10/24 Previous Rx's Medication Instructions Recorded finasteride 5 mg tablet 5 mg PO HS #0 tabs 03/05/24 tamsulosin 0.4 mg capsule 0.4 mg PO HS #0 caps 03/05/24 amlodipine 5 mg tablet (Norvasc) 5 mg PO QAM #30 tabs 04/17/24 Results & Data (ED) Vital Signs Vital Signs - 24 hr 04/27/24 15:54 04/27/24 15:54 04/27/24 15:54 Temperature 36.7 C Temperature Source Oral Pulse Rate 87 Pulse Rate [Right Brachial] 87 Pulse Rhythm Regular Pulse Rhythm [Right Brachial] Regular Pulse Strength Normal Pulse Strength [Right Brachial] Normal Respiratory Rate 20 20 Respiratory Effort / Characteristics Non-Labored Non-Labored Respiratory Depth Normal Normal Respiratory Pattern Regular Regular Blood Pressure 140/91 Blood Pressure [Right Arm] 140/91 Blood Pressure Mean 107 Blood Pressure Mean [Right Arm] 107 Blood Pressure Position Lying Blood Pressure Position [Right Arm] Lying Pulse Oximetry 94 94 94 Oxygen Delivery Method Room Air Room Air Room Air Sepsis Recent Fever Within 48 Hours No Sepsis New/Unexplained Change in Mental Status N/A Sepsis Action Taken by Nursing No Action Required 04/27/24 16:00 04/27/24 16:26 04/27/24 18:00 Temperature Temperature Source Pulse Rate Pulse Rate [Right Brachial] 87 72 Pulse Rhythm Pulse Rhythm [Right Brachial] Regular Regular Pulse Strength Pulse Strength [Right Brachial] Normal Normal Respiratory Rate 20 18 Respiratory Effort / Characteristics Non-Labored Non-Labored Respiratory Depth Normal Normal Respiratory Pattern Regular Blood Pressure Blood Pressure [Right Arm] 140/91 162/95 H Blood Pressure Mean Blood Pressure Mean [Right Arm] 107 117 Blood Pressure Position Blood Pressure Position [Right Arm] Lying Lying Pulse Oximetry 94 94 98 Oxygen Delivery Method Room Air Room Air Room Air Sepsis Recent Fever Within 48 Hours Sepsis New/Unexplained Change in Mental Status Sepsis Action Taken by Nursing 04/27/24 20:00 04/27/24 20:32 Temperature Temperature Source Pulse Rate 79 Pulse Rate [Right Brachial] 80 Pulse Rhythm Pulse Rhythm [Right Brachial] Pulse Strength Pulse Strength [Right Brachial] Respiratory Rate 16 Respiratory Effort / Characteristics Non-Labored Spontaneous Respiratory Depth Normal Respiratory Pattern Blood Pressure Blood Pressure [Right Arm] 155/91 H Blood Pressure Mean Blood Pressure Mean [Right Arm] 112 Blood Pressure Position Blood Pressure Position [Right Arm] Pulse Oximetry 96 Oxygen Delivery Method Room Air Sepsis Recent Fever Within 48 Hours Sepsis New/Unexplained Change in Mental Status Sepsis Action Taken by Nursing Laboratory Data 04/27/24 18:33 04/27/24 16:30 Lab Results 04/27/24 04/27/24 Range/Units 16:30 18:33 WBC Cancelled 6.21 RBC Cancelled 4.52 L Hgb Cancelled 14.0 Hct Cancelled 41.3 L MCV Cancelled 91.4 MCH Cancelled 31.0 MCHC Cancelled 33.9 RDW Std Deviation Cancelled 45.9 RDW Coeff of Diandra Cancelled 13.9 Plt Count Cancelled 128 L MPV Cancelled 9.9 Immature Gran % (Auto) Cancelled 0.5 Neut % (Auto) Cancelled 65.3 Lymph % (Auto) Cancelled 19.3 Rooks % (Auto) Cancelled 11.9 Eos % (Auto) Cancelled 2.7 Baso % (Auto) Cancelled 0.3 Neut # (Auto) Cancelled 4.05 Lymph # (Auto) Cancelled 1.20 Rooks # (Auto) Cancelled 0.74 H Eos # (Auto) Cancelled 0.17 Baso # (Auto) Cancelled 0.02 Immature Gran # (Auto) Cancelled 0.03 Absolute Nucleated RBC Cancelled Nucleated RBC % (auto) Cancelled Neutrophils % (Manual) Cancelled Band Neutrophils % Cancelled Lymphocytes % (Manual) Cancelled Prolymphocyte % Cancelled Reactive Lymphs % (Man) Cancelled Monocytes % (Manual) Cancelled Eosinophils % (Manual) Cancelled Basophils % (Manual) Cancelled Metamyelocytes % (Man) Cancelled Myelocytes % (Man) Cancelled Promyelocytes % (Man) Cancelled Blast Cells % (Manual) Cancelled Plasma Cell % (Manual) Cancelled Other Cells % Cancelled Nucleated RBC % Cancelled Neutrophils # (Manual) Cancelled Band Neutrophils # Cancelled Total Absolute Neuts Cancelled Lymphocytes # (Manual) Cancelled Prolymphocyte # Cancelled Reactive Lymphs # Cancelled Total Abs Lymphocytes Cancelled Monocytes # (Manual) Cancelled Eosinophils # (Manual) Cancelled Basophils # (Manual) Cancelled Metamyelocytes # (Man) Cancelled Myelocytes # (Manual) Cancelled Promyelocytes # (Man) Cancelled Blast Cells # (Man) Cancelled Plasma Cell # (Manual) Cancelled Other Cells # Cancelled Nucleated RBCs # (Man) Cancelled Hypersegmented Neuts Cancelled Hyposegmented Neuts Cancelled Hypogranular Neuts Cancelled Large Granular Lymphs Cancelled # Lrg Granular Lymphs Cancelled Hairy Cells Cancelled Smudge Cells Cancelled Toxic Granulation Cancelled Toxic Vacuolation Cancelled Dohle Bodies Cancelled Kiera Rods Cancelled Platelet Estimate Cancelled Hypogranular Platelets Cancelled Giant Platelets Cancelled Platelet Satelliting Cancelled RBC Morphology Cancelled Polychromasia Cancelled Hypochromasia Cancelled Poikilocytosis Cancelled Basophilic Stippling Cancelled Anisocytosis Cancelled Microcytosis Cancelled Macrocytosis Cancelled Spherocytes Cancelled Pappenheimer Bodies Cancelled Sickle Cells Cancelled Target Cells Cancelled Tear Drop Cells Cancelled Ovalocytes Cancelled Stomatocytes Cancelled [place] Bodies Cancelled Echinocytes Cancelled Acanthocytes (Spur) Cancelled Rouleaux Cancelled RBC Agglutinates Cancelled Schistocytes Cancelled Sezary Cell Cancelled PT Cancelled 11.9 INR Cancelled 1.1 Sodium 143 (136-145) mmol/L Potassium 3.8 (3.5-5.1) mmol/L Chloride 106 (98-107) mmol/L Carbon Dioxide 26 (21-32) mmol/L Anion Gap 11 (3-11) BUN 28 H (6-23) mg/dl Creatinine 0.67 (0.6-1.4) mg/dl Est Cr Clr Drug Dosing 105.0 ml/min eGFR 97.37 BUN/Creatinine Ratio 41.8 H (10-20) Glucose 141 H (70-99(Fasting)) mg/dl Lactate 1.2 (0.4-2.0) mmol/L Calcium 9.5 (8.6-10.3) mg/dl Magnesium 2.0 (1.7-2.4) mg/dl Total Bilirubin 0.7 (0.2-1.0) mg/dl AST 20 (13-39) U/L ALT 10 (7-52) U/L Alkaline Phosphatase 111 H (34-104) U/L Troponin I High Sens 8.3 (0-20) pg/ml Total Protein 7.2 (6.0-8.3) gm/dl Albumin 3.7 (3.4-5.0) gm/dl Globulin 3.5 (2.5-4.0) gm/dl Albumin/Globulin Ratio 1.1 (0.9-2) TSH 0.916 (0.300-4.500) uIu/ml Adenovirus (PCR) Not Detected (NotDetected) B. pertussis DNA (PCR) Not Detected (NotDetected) B.parapertussis DNA PCR Not Detected (NotDetected) C. pneumoniae DNA (PCR) Not Detected (NotDetected) Coronavirus OC43 (PCR) Not Detected (NotDetected) Coronavirus HKU1 (PCR) Not Detected (NotDetected) Coronavirus 229E (PCR) Not Detected (NotDetected) SARS-CoV-2 (PCR) Not Detected (NotDetected) Coronavirus NL63 (PCR) Not Detected (NotDetected) Human Metapneumovir PCR Not Detected (NotDetected) Influenza Type A (PCR) Not Detected (NotDetected) Influenza Type B (PCR) Not Detected (NotDetected) M. pneumoniae (PCR) Not Detected (NotDetected) Parainfluenza 1 (PCR) Not Detected (NotDetected) Parainfluenza 2 (PCR) Not Detected (NotDetected) Parainfluenza 3 (PCR) Not Detected (NotDetected) Parainfluenza 4 (PCR) Not Detected (NotDetected) RSV (PCR) Not Detected (NotDetected) Entero/Rhino (PCR) Not Detected (NotDetected) Blood Parasites ID Cancelled Administered Medications Discontinued Medications Sodium Chloride (Nss) 1,000 mls @ 999 mls/hr IV .[id number] ONE Stop: 04/27/24 17:26 Last Infusion: 04/27/24 17:58 Dose: Infused Documented By: Admin: 04/27/24 16:47 Dose: 999 mls/hr Documented By: TOMI Imaging Data Radiologist's Impression: Chest X-Ray 04/27/24 16:26 EXAM: X-ray chest one-view portable CLINICAL HISTORY: Weakness PRIORS: 04/10/2024 TECHNIQUE: Upright AP portable chest FINDINGS: The chest is well-expanded. No airspace consolidation, effusion or congestive changes. Heart size is normal. No pneumothorax. Trachea is patent. Osseous structures demonstrate no acute abnormality. No radiopaque foreign body. IMPRESSION: No plain film evidence of an acute cardiopulmonary process. Electronically signed by Denia Dick 04-27-2024 5:[address] 04/27/24 18:19 EXAMINATION: Head CT without CLINICAL HISTORY: Weakness PRIORS: Head CT 04/10/2024 TECHNIQUE: Contiguous axial images were obtained through the head without the use of intravenous contrast. Sagittal and coronal reformations are supplied. FINDINGS: Moderate parenchymal volume loss noted. Postsurgical change of the right temporal lobe and bone, unchanged. Mckeon-white differentiation is preserved. No edema or midline shift. Small vessel occlusive disease noted. No intra-axial or extra-axial hemorrhage. Ventricles are normal in size and configuration. Brainstem and cerebellum have a normal appearance. Calvarium unremarkable. Paranasal sinuses and mastoid air cells are well-pneumatized. Globes are intact. No retrobulbar abnormality. IMPRESSION: No CT evidence of an acute intracranial abnormality. Electronically signed by Denia Dick 04-27-2024 7:46 PM Discharge Plan Visit Data Chief Complaint: Dehydration Stated Complaint: DEHYDRATION ED Provider: Barbara Ruiz Discharge Problem: Generalized weakness, Ambulatory dysfunction, Thrombocytopenia Forms Stand Alone Forms: [facility] Prescriptions Prescriptions: No Action diclofenac sodium 1 % gel 2 g topical QID PRN (Reason: Pain) Rx Instructions: apply to single elbow, wrist or hand; for hand includes palm/fingers/back of hand polyethylene glycol 3350 [Miralax] 17 gram/dose powder 17 g PO DAILY PRN (Reason: constipation ) sertraline [Zoloft] 100 mg tablet 100 mg PO DAILY ergocalciferol (vitamin D2) 10 mcg (400 unit) tablet 10 mcg PO DAILY multivitamin Tablet 1 tab PO DAILY pantoprazole 40 mg Tablet,Delayed Release (Dr/Ec) 40 mg PO QAM carvedilol 3.125 mg tablet 3.125 mg PO BID atorvastatin 80 mg tablet 80 mg PO DAILY lomustine 40 mg Capsule See Rx Instructions .ROUTE .COMPLEX Hold Instructions: Resume on 04/26/24. Hold until further discussion with your cancer doctor as outpatient. Rx Instructions: Take 4 Capsules by mouth every 6 weeks. Take on an empty stomach lorazepam 0.5 mg tablet 0.5 mg PO TID PRN (Reason: Anxiety) docusate sodium 100 mg Tablet 100 mg PO BID PRN (Reason: Constipation) insulin glargine 100 unit/mL (3 mL) insulin pen 12 unit SUBCUT DAILY amlodipine [Norvasc] 5 mg Tablet 5 mg PO QAM Qty: 30 0RF magnesium oxide 420 mg Tablet 420 mg PO HS gabapentin 300 mg capsule 300 mg PO TID levetiracetam 750 mg tablet 750 mg PO BID tamsulosin 0.4 mg Capsule 0.4 mg PO HS Qty: 0 0RF finasteride 5 mg Tablet 5 mg PO HS Qty: 0 0RF Referrals Referrals: Apolinar Wayne DO [Primary Care Provider] -
[2024-04-27] MEDS: SODIUM CHLORIDE 0.9% 1,000 ML IV ONE (16:47)
[2024-04-27 17:10] LABS: Albumin Globulin Ratio 1.1 (0.9-2); Albumin Level 3.7 gm/dl (3.4-5.0); BUN Creatinine Ratio 41.8 (10-20); Bilirubin,Total 0.7 mg/dl (0.2-1.0); Calcium 9.5 mg/dl (8.6-10.3); Globulin 3.5 gm/dl (2.5-4.0); Potassium 3.8 mmol/L (3.5-5.1); Total Protein 7.2 gm/dl (6.0-8.3)
[2024-04-27 17:16] LABS: Troponin I High Sensitivity 8.3 pg/ml (0-20)
[2024-04-27 17:25] LABS: Thyroid Stimulating Hormone 0.916 uIu/ml (0.300-4.500)
--- NOTE | 2024-04-27 17:36 | XRay Report ---
EXAM: X-ray chest one-view portable CLINICAL HISTORY: Weakness PRIORS: 04/10/2024 TECHNIQUE: Upright AP portable chest FINDINGS: The chest is well-expanded. No airspace consolidation, effusion or congestive changes. Heart size is normal. No pneumothorax. Trachea is patent. Osseous structures demonstrate no acute abnormality. No radiopaque foreign body. IMPRESSION: No plain film evidence of an acute cardiopulmonary process. Electronically signed by Denia Dick 04-27-2024 5:36 PM
[2024-04-27 18:06] LABS: Adenovirus PCR Not Detected (NotDetected); Bordetella parapertussis PCR Not Detected (NotDetected); Bordetella pertussis PCR Not Detected (NotDetected); Chlamydia pneumoniae PCR Not Detected (NotDetected); Coronavirus 229E PCR Not Detected (NotDetected); Coronavirus CoV-2 (COVID19)PCR Not Detected (NotDetected); Coronavirus HKU1 PCR Not Detected (NotDetected); Coronavirus NL63 PCR Not Detected (NotDetected); Coronavirus OC43PCR Not Detected (NotDetected); Human Metapneumovirus PCR Not Detected (NotDetected); Influenza A PCR Not Detected (NotDetected); Influenza B PCR Not Detected (NotDetected); Mycoplasma pneumoniae PCR Not Detected (NotDetected); Parainfluenza Virus 1 PCR Not Detected (NotDetected); Parainfluenza Virus 2 PCR Not Detected (NotDetected); Parainfluenza Virus 3 PCR Not Detected (NotDetected); Parainfluenza Virus 4 PCR Not Detected (NotDetected); Respiratory Syncytial VirusPCR Not Detected (NotDetected); Rhinovirus/Enterovirus PCR Not Detected (NotDetected)
[2024-04-27 18:55] LABS: Basophils # (auto) 0.02 K/uL (0.00-0.20); Basophils % (auto) 0.3 %; Eosinophils # (auto) 0.17 K/uL (0.00-0.50); Eosinophils % (auto) 2.7 %; Hematocrit (blood only) 41.3 % (42.0-52.0); Immature Granulocytes # (auto) 0.03 K/uL (0.01-0.20); Immature Granulocytes % (auto) 0.5 %; Lymphocytes % (auto) 19.3 %; Mean Corpuscular Hgb Conc 33.9 g/dL (32.0-36.0); Mean Corpuscular Volume 91.4 fL (80.0-100.0); Mean Platelet Volume 9.9 fL (9.4-12.4); Monocytes # (auto) 0.74 K/uL (0.11-0.59); Monocytes % (auto) 11.9 %; Neutrophils # (auto) 4.05 K/uL (1.40-6.50); Neutrophils % (auto) 65.3 %; Platelet Count 128 K/uL (130-400); RDW Coefficient of Variation 13.9 % (11.5-14.5); RDW Standard Deviation 45.9 fL (36.4-46.3); Red Blood Count 4.52 M/uL (4.70-6.10); White Blood Count 6.21 K/ul (4.8-10.8)
[2024-04-27 19:17] LABS: INR 1.1 (0.9-1.1); Prothrombin Time 11.9 Seconds (9.0-12.0)
--- NOTE | 2024-04-27 19:47 | CT Scan Report ---
EXAMINATION: Head CT without CLINICAL HISTORY: Weakness PRIORS: Head CT 04/10/2024 TECHNIQUE: Contiguous axial images were obtained through the head without the use of intravenous contrast. Sagittal and coronal reformations are supplied. FINDINGS: Moderate parenchymal volume loss noted. Postsurgical change of the right temporal lobe and bone, unchanged. Mckeon-white differentiation is preserved. No edema or midline shift. Small vessel occlusive disease noted. No intra-axial or extra-axial hemorrhage. Ventricles are normal in size and configuration. Brainstem and cerebellum have a normal appearance. Calvarium unremarkable. Paranasal sinuses and mastoid air cells are well-pneumatized. Globes are intact. No retrobulbar abnormality. IMPRESSION: No CT evidence of an acute intracranial abnormality. Electronically signed by Denia Dick 04-27-2024 7:46 PM
--- NOTE | 2024-04-27 21:45 | History & Physical Report ---
Date of Service April 27, 2024 Assessment & Plan (1) Generalized weakness: (2) Ambulatory dysfunction: (3) Glioblastoma of temporal lobe: (4) H/O craniotomy: (5) DM type 2 (diabetes mellitus, type 2): (6) History of pulmonary embolism: (7) History of seizure: Plan: Assessment and Plan per Dr Luke. See addendum. History of Present Illness Chief Complaint: weakness Primary Care Provider: Apolinar Wayne DO Patient is 73-year-old male with PMH glioblastoma s/p surgical resection in 2020, with recurrence glioblastoma and s/p surgery 01/31/24 at [facility], history seizure with first glioblastoma without any recurrent seizures, HTN, dyslipidemia, history DVT/PE, anticoagulated on Xarelto, DM II, pulmonary hypertension, PTSD, depression, GERD, BPH presented to ER with weakness. Per inpatient chart review history of [facility] hospitalization 03/02/2024-03/05/2024 for weakness, OROPEZA and recurrent [facility] hospitalization 04/11/24-04/17/24 for weakness and frequent falls and there was initial consideration about trying rehab. Discussion with palliative services took place. Ultimately decision was made for patient to go home with hospice services. Patient states since being home he has had continued weakness and is not able to get out of bed. He states he continues with daily OROPEZA's and takes Tylenol with moderate relief. Patient reports not eating and is attempting fluids through a straw but reports choking and coughs and sometimes near vomiting. Denies diarrhea, abdominal pain, CP, SOB, fever/chills, urinary symptoms. Per review of outpatient case monitor note from 04/27/24 it seems there has been some varying opinions between patient, patient's and patient's son about patients prognosis and goals. Per outpatient CM note today patient's wants PT to come to the house, however PT is not covered by [facility]. has attempted reaching out to [facility] or possible alternative therapies and states hospice services did not know about this. Family has decided today they want to see if patient can have PT and rehab so brought patient to the hospital. When I evaluated patient in the ER his and son were not at bedside as they had just stepped out. Patient states that his goal is to be able to walk. He states that his family have stated that they want more aggressive treatments for him and he reports they have made statements that they are not ready for him to . Patient reports that he is aware his family are trying to get him to be evaluated at [facility]. He states he told his today that he does not want any more procedures or surgeries. He does state that he is trying to do what his family wishes. I had discussion with him that he is in charge of his body and his medical decision making as well and he voices understanding but states it is hard to see his family like this and he is trying to do things to make them happy. He states he has enjoyed that his family has been visiting him at home this past week. Patient states that he has not been on prior prescribed medications since being on hospice. Allergies Allergy/AdvReac Type Severity Reaction Status Date / Time erythromycin base AdvReac Unknown nausea/vomi Verified 12/11/21 09:20 ting Home Medications Medication Instructions Recorded Confirmed Type pantoprazole 40 mg tablet,delayed 40 mg PO QAM 06/18/18 04/27/24 History release multivitamin 1 tab PO DAILY 08/21/19 04/27/24 History carvedilol 3.125 mg tablet 3.125 mg PO BID 07/31/20 04/27/24 History diclofenac sodium 1 % topical gel 2 g topical QID PRN Pain 07/31/20 04/27/24 History polyethylene glycol 3350 17 17 g PO DAILY PRN constipation 07/31/20 04/27/24 History gram/dose oral powder (Miralax) ergocalciferol (vitamin D2) 10 mcg 10 mcg PO DAILY 07/10/21 04/27/24 History (400 unit) tablet sertraline 100 mg tablet (Zoloft) 100 mg PO DAILY 12/27/23 04/27/24 History gabapentin 300 mg capsule 300 mg PO TID 03/02/24 04/27/24 History levetiracetam 750 mg tablet 750 mg PO BID 03/02/24 04/27/24 History magnesium oxide 420 mg tablet 420 mg PO HS 03/02/24 04/27/24 History finasteride 5 mg tablet 5 mg PO HS #0 tabs 03/05/24 04/27/24 Rx tamsulosin 0.4 mg capsule 0.4 mg PO HS #0 caps 03/05/24 04/27/24 Rx atorvastatin 80 mg tablet 80 mg PO DAILY 04/10/24 04/27/24 History docusate sodium 100 mg tablet 100 mg PO BID PRN Constipation 04/10/24 04/27/24 History insulin glargine 100 unit/mL (3 12 unit subcut DAILY 04/10/24 04/27/24 History mL) subcutaneous pen lomustine 40 mg capsule See Rx Instructions .Route .COMPLEX 04/10/24 04/10/24 History lorazepam 0.5 mg tablet 0.5 mg PO TID PRN Anxiety 04/10/24 04/27/24 History amlodipine 5 mg tablet (Norvasc) 5 mg PO QAM #30 tabs 04/17/24 04/27/24 Rx Past Med/Surg History Problem List (Updated 04/27/24 @ 22:29 by Sarah Leon PA-C) History of seizure Thrombocytopenia (Acute) Ambulatory dysfunction (Acute) Generalized weakness (Acute) Vision loss, left eye Discussion about advance care planning held with family member Palliative care by specialist Weakness generalized Adult failure to thrive (Acute) Recurrent falls (Acute) Concussion without loss of consciousness (Acute) Diabetes mellitus with hypoglycemia, with long-term current use of insulin Orthostatic hypotension Fall (Acute) Weakness (Acute) Recurrent brain tumor (Chronic 12/06/23) H/O craniotomy 06/24/20 for right temporal GBM 01/31/24 at [facility] 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) Medical History Diabetes Pulmonary hypertension Steroid-induced hyperglycemia Insomnia BPH (benign prostatic hyperplasia) Degenerative disc disease Severe protein-calorie malnutrition Fatigue Acute metabolic encephalopathy DVT prophylaxis Acute alteration in mental status History of pulmonary embolism Seizure History of agent [place] exposure Anxiety Acute deep vein thrombosis (DVT) of left lower extremity Elevated beta-hydroxybutyrate Elevated AST (SGOT) Hyperglycemia due to type 2 diabetes mellitus Acute pulmonary embolism BPH (benign prostatic hyperplasia) Barretts esophagus DM type 2 (diabetes mellitus, type 2) Surgical History H/O prostate biopsy S/P brain surgery History of cataract surgery LEFT History of anesthesia reaction REMOTE HX - WITH ONE SURGERY (PT UNSURE WHAT SURGERY) - SLEPT FOR 2 DAYS AFTER, NO -RE-OCCURENCE History of endoscopy History of colonoscopy History of foot surgery L History of tonsillectomy and adenoidectomy H/O shoulder surgery R X 2 - MOST RECENT: DEC 2018 Family History Father , 72yo Diabetes Hypertension Sister Cancer Brain tumor 42yo Mother , 80yo Myocardial infarction Son No problems noted. Son No problems noted. 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 [email or web address] Feels Safe at Home: Yes Safety Concerns: Feels Safe At This Time Diet: regular caffeine: Yes (2 cups/day) during the past year weight has: decreased > 10 lbs Assistive Devices: Scooter/Electric Scooter and Walker Review of Systems Review of Systems: All systems reviewed & are unremarkable except as noted in HPI & below Physical Exam Physical Exam: General: no acute distress, +chronic ill appearing, WDWN Head: normocephalic, atraumatic Eyes: conjunctiva non-injected, anicteric ENT: normal inspection external ears, nose, mucous membranes moist Neck: supple, trachea midline Lungs: clear, no respiratory distress, no wheezing/rhonchi/rales noted CV: RRR, no murmur, no pretibial edema Abd: normal BS, soft, non-tender Ext: no cyanosis, no calf tenderness Neuro: A&O x 3, normal affect, +diffuse weakness. able to actively raise bilateral arms to approximately 90 degrees and hold for 8 seconds. able to actively flex and extend hips and knees but unable to keep legs raised off bed Skin: warm, dry Results & Data Results & Data Vital Signs (Past 12 Hours) Vital Signs Temp Pulse Pulse Resp BP BP Pulse Ox 04/27/24 20:32 79 04/27/24 20:00 80 16 155/91 H 96 04/27/24 18:00 72 18 162/95 H 98 04/27/24 16:26 94 04/27/24 16:00 87 20 140/91 94 04/27/24 15:54 94 04/27/24 15:54 87 20 140/91 94 04/27/24 15:54 36.7 C 87 20 140/91 94 O2 Del Method 04/27/24 20:32 04/27/24 20:00 Room Air 04/27/24 18:00 Room Air 04/27/24 16:26 Room Air 04/27/24 16:00 Room Air 04/27/24 15:54 Room Air 04/27/24 15:54 Room Air 04/27/24 15:54 Room Air Laboratory Results Short CBC 04/27/24 04/27/24 Range/Units 16:30 18:33 WBC Cancelled 6.21 Hgb Cancelled 14.0 Hct Cancelled 41.3 L Plt Count Cancelled 128 L BMP 04/27/24 16:30 Sodium 143 Potassium 3.8 Chloride 106 Carbon Dioxide 26 BUN 28 H Creatinine 0.67 Glucose 141 H Calcium 9.5 Liver Function 04/27/24 Range/Units 16:30 Total Bilirubin 0.7 (0.2-1.0) mg/dl AST 20 (13-39) U/L ALT 10 (7-52) U/L Alkaline Phosphatase 111 H (34-104) U/L Albumin 3.7 (3.4-5.0) gm/dl Diagnostic Findings Chest X-Ray 04/27/24 16:26 EXAM: X-ray chest one-view portable CLINICAL HISTORY: Weakness PRIORS: 04/10/2024 TECHNIQUE: Upright AP portable chest FINDINGS: The chest is well-expanded. No airspace consolidation, effusion or congestive changes. Heart size is normal. No pneumothorax. Trachea is patent. Osseous structures demonstrate no acute abnormality. No radiopaque foreign body. IMPRESSION: No plain film evidence of an acute cardiopulmonary process. Electronically signed by Denia Dick 04-27-2024 5:[address] 04/27/24 18:19 EXAMINATION: Head CT without CLINICAL HISTORY: Weakness PRIORS: Head CT 04/10/2024 TECHNIQUE: Contiguous axial images were obtained through the head without the use of intravenous contrast. Sagittal and coronal reformations are supplied. FINDINGS: Moderate parenchymal volume loss noted. Postsurgical change of the right temporal lobe and bone, unchanged. Mckeon-white differentiation is preserved. No edema or midline shift. Small vessel occlusive disease noted. No intra-axial or extra-axial hemorrhage. Ventricles are normal in size and configuration. Brainstem and cerebellum have a normal appearance. Calvarium unremarkable. Paranasal sinuses and mastoid air cells are well-pneumatized. Globes are intact. No retrobulbar abnormality. IMPRESSION: No CT evidence of an acute intracranial abnormality. Electronically signed by Denia Dick 04-27-2024 7:46 PM Supervising Physician Co-Signing Physician Notes IM ATTENDING : Patient seen and examined. History obtained from patient, family, and records. Concur with salient points upon review of preceding documentation by Ms. Sarah Leon PA-C. In addition, patient and family unclear about goals of home hospice upon enrollment following discharge from hospital. Patient and family not ready for hospice at this time. Patient would like to get stronger to be able to make a trip to [facility] next week to seek opinion of another neuro-oncologist. I take responsibility for plan of care below. FINAL ASSESSMENT AND PLAN as follows : Weakness, deconditioning History recurrent glioblastoma status post surgery/chemoradiation, progressive disease Clinical dehydration contributory Aspiration concerns Seizure disorder secondary to brain tumor, stable on regimen Hypertension, slightly elevated Hyperlipidemia on statin Rx Pulmonary hypertension as per records GERD on PPI DM2, insulin requiring, suboptimal control as of recent hemoglobin A1c of 8.8 last February 2024 Chronic anemia, hemoglobin better than baseline likely secondary to hemoconcentration BPH status post surgery History of PE/DVT, off Xarelto due to fall risk. New onset thrombocytopenia Past tobacco abuse OBS Admit to medical IVF Aspiration precautions, STATEMENT DISTRIBUTION CLERK evaluation PT OT eval DVT prophylaxis. SCDs re: thrombocytopenia Full code Patient requesting updates providers. Ms. Aimee Lam, contact #[phone]. I spent a total of 30 minutes coordinating, documenting, and providing care for this patientexcludingtime spent by another provider/QHP. Text document was generated using [employer] voice recognition software. It may contain grammatical or spelling errors. Kindly contact undersigned for clarification of any documentation item in question.
[2024-04-27] MEDS ORDERED: POLYETHYLENE (MIRALAX) 17 GM PACK PO PRN (23:00)
[2024-04-27] MEDS ORDERED: DICLOFENAC SOD 1% GEL 100 GM TUBE EXT PRN (23:00)
[2024-04-27] MEDS ORDERED: oxyCODONE HCL IR 5 MG TAB (IMMEDIATE RELEASE) PO PRN (23:00)
[2024-04-27] MEDS ORDERED: PROMETHAZINE 6.25 MG/50.25 ML BAG IV PRN (23:00)
[2024-04-27] MEDS ORDERED: LORazepam 0.5 MG TAB PO PRN (23:00)
--- OUTSIDE RECORDS SUMMARY | 2024-04-27 23:13 | External Medical Summary | Summary of Care ---
Author Name Unknown Organization [facility] Address [address] [place] [address] Phone [phone] Care Team Providers Care Supervisor Plating And Point Assembly Name Role Phone Apolinar Wayne DO Primary Care Provider [phone] Reason for Visit * Reason Onset Date Comments Other 04/19/202404/19 Encounter Details Date Type Department Care Team (Late st Contact Info) Description 04/19/2024 Telephone Family Practice [address] [place] [address] Apolinar Wayne DO [address] [place] [address] Other (04/19) Allergies Active Allergy Reactions Criticality Noted Date Comments Erythromycin 07/02/1998 GI upset Guaifenesin & Derivatives 03/18/1997 nucofed documented as of this encounter (statuses as of 04/19/2024) Medications BD Pen Needle Altagracia U/F 32G [...] of major depressive disorder without prior episode ([facility]),PTSD (post-traumatic stress disorder) Take 1 Tablet [...] 12/30/2023 2:07 PM EDT 12/26/19 24 Active Atorvastatin Calcium 80 MG Oral [...] as of this encounter (statuses as of 04/19/2024) Active Problems Problem Noted Date Diagnosed Date [...] nephropathy 06/27/2018 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 06/27/2018 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 (Household - for ages [...] 03/06/2024 Transportation Needs Answer Date Record ed Do you have trouble getting a ride to medical visits or work? (Adult - for ages 18 years and over) Not on file 03/06/2024 Does your family have a hard [...] place to sleep at night? No 03/06/2024 Do you think you are at risk of becoming homeless? (Adult - for ages 18 years and over) Not on file 03/06/2024 Does your family worry about paying [...] Telephone Encounter - Rain Yañez RN - 04/19/2024 1:05 PM EST Follow up with [facility] regarding son, Ulysses's, request for PT for patient while he is on hospice. CM called [facility] and spoke to loss prevention manager-- per their records: torpedo worker was there today. RN and aide were at the home yesterday; care program resident to be at house later today. PT is not covered by [facility] per management there; if they want to pursue that via another home health agency, it would be all out of pocket. In addition, it would border along the lines of seeking aggressive therapy and would potentially get patient let go from hospice services. Called Ulysses--advised what [facility] said; stated out of pocket expenses are not a concern. He said "I think my dad would do better with outside motivation than with family." He said his dad does seem to want to get out of bed. Discussed increased risk of falls, especially with most recent history prior to hospital admission. In addition, we know now that it is the tumor that could/is causing more of the balance issues. Ulysses verbalized understanding. Seems defeated, and frustrated, but said he will be contacting [facility] and get an idea of what next steps will be. Advised him to notify us if plan of care changes. I told Ulysses as much as he and I think physical therapy a little bit every day is not an aggressive therapy, but in the world of hospice it is. He said they felt like they were not made fully aware that hospice was withdrawing all of this type of support. He said his dad does not like the word hospice. Ulysses said he does not expect his dad to get up and run circles, but that he is wasting away justlaying in the bed. I told Ulysses that if his dad is changing his mind and does not want hospice anymore, he can call and speak to Demian and even if he does not want to do chemo, but just wants to be athome- that is OK too- we just need to know what his choices are. Ulysses verbalized understanding and will update our office if/when POC changes. * Telephone Encounter - Sadie Madera LPN - 04/19/2024 12:04 PM EST Rain. Can you call son Ulysses regarding PT and hospice. Thank you * Telephone Encounter - Sadie Madera LPN - 04/19/2024 12:00 PM EST Called, left message for Ulysses to return call. Thank you * Telephone Encounter - Rabia Cole OSA - 04/19/2024 11:48 AM EST Patient's son, Ulysses,called asking to speak to sadie regarding pt,and physical therapy. He can be reached @ [phone]. documented in this encounter Plan of Treatment Upcoming Encounters Date Type Department Care Team (Late st Contact Info) Description 04/26/2024 9:00 AM EST Office Visit Hematology/Oncology [facility] [address] [place] [phone] Fernando Solo MD [address] [address] 04/27/2024 2:30 PM EST Office Visit Family Practice [address] [place] [address] [facility] [id number] College, Pharmacist [address] [facility] [address] [place] [address] 04/27/2024 3:00 PM EST [facility] [address] [facility] [phone] Apolinar Wayne, [address] [place] [address] 05/21/2024 2:30 PM EST Office Visit Urology Garima Meyers [address] [address] Michelle Rodriguez PA-C [address] [address] Scheduled Procedures Name Priority Associated Diagnoses Date/Ti [...] this encounter Medical Devices Implanted Type Area Housing Manager Device Identifier Shelf Expiration Date Model / Serial / Lot Graft Lyoplant 5.0x5.0cm 2x2 - [id number] Implanted:Qty : 1 on 06/24/2020 by Madi Kaur MD at [place] [facility] [place] Right: Head B [employer]ICEA : AESCULAP 11/18/2024 [id number] / / [id number] Graft Lyoplant 5.0x5.0cm 2x2 - [id number] Implanted:Qty : 1 on 06/24/2020 by Madi Kaur MD at OR [facility] [place] B ALICEA : AESCULAP [id number] 11/18/2024 [id number] / [id number] / [id number] Graft Lyoplant 5.0x5.0cm 2x2 - [id number] Implanted:Qty : 1 on 06/24/2020 by Madi Kaur MD at OR [facility] [place] Right: Head B [employer]ICE[employer] : AESCULAP 06/24/2020 [id number] / / [id number] Graft Lyoplant 5.0x5.0cm 2x2 - [id number] Implanted:Qty : 1 on 06/24/2020 by Madi Kaur MD at OR [facility] [place] B [employer]ICEA : AESCULAP [id number] 11/18/2024 [id number] / [id number] / [id number] Plate Ti Lo Pro Str 2h 421.502 - [id number] Implanted:Qty : 2 on 06/24/2020 by Madi Kaur MD at OR [facility] [place] Right: Head SYNTHES MAXILLOFACIAL 421.502 / / Plate Bx Ti [id number] 4h 421.521 - [id number] Implanted:Qty : 1 on 06/24/2020 by Madi Kaur MD at OR [facility] [place] Right: Head SYNTHES MAXILLOFACIAL 421.521 / / Screw Ti Lo Pro Sd 4mm 400.834 - [id number] Implanted:Qty : 7 on 06/24/2020 by Madi Kaur MD at OR [facility] [place] Right: Head SYNTHES [...] Lam Spouse Health Care Agent Care Teams Supervisor Plating And Point Assembly Relationship Specialty Start Date End Date Apolinar Wayne DO [address] [place] [place] [address] PCP - General Internal Medicine 11/15/23 documented as of this encounter
--- OUTSIDE RECORDS SUMMARY | 2024-04-27 23:13 | External Medical Summary | Summary of Care ---
Author Name Unknown Organization [facility] Address [address] [place] [address] Phone [phone] Care Team Providers Care Acute Care Assistant Name Role Phone Apolinar Wayne DO Primary Care Provider [phone] Encounter Details Date Type Department Care Team (Late st Contact Info) Description 04/20/2024 Population Health External Data Unspecified Department Allergies Active Allergy Reactions Criticality Noted Date Comments Erythromycin 07/02/1998 GI upset Guaifenesin & Derivatives 03/18/1997 nucofed documented as of this encounter (statuses as of 04/20/2024) Medications BD Pen Needle Altagracia U/F 32G [...] goal of less than 7.0% ([facility]) Use as directed every 14 [...] as of this encounter (statuses as of 04/20/2024) Active Problems Problem Noted Date Diagnosed Date [...] 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 06/27/2018 custodial (current) use of insulin 10/27/2017 History of [...] as of this encounter (statuses as of 04/20/2024) Resolved Problems Problem Noted Date Diagnosed Date [...] HTN Taxonomy. FAM HX-ISCHEM HEART DIS 08/01/1998 0509/2017 PURE HYPERCHOLESTEROLEM 08/01/199802/18 Overview (03/04/2009): Per Lipid Taxonomy. documented as of this encounter (statuses as of 04/20/2024) Immunizations Name Administration Dates Next Due COVID-19 mRNA, LNP-s, No Pre serve, 2-Dose Series (Site Lock) 03/10/2021,06/07/2020,05/17/2020 COVID-19, LNP-s, No Preserve , Chandler-sucrose, Ages 12+ (Pfizer) 11/17/2021 COVID-19, MRNA-LNP, PF, 30 M CG/0.3 mL, 12 YRS AND ABOVE, IM (PFIZER-Comirnat) 01/17/2024,03/08/2023 Covid-19, Mrna, Lnp-s, Pf, B ivalent, 30 Mcg, IM, 12 yrs and above (Site Lock) 04/13/2022 H1N1 2009 Influenza, IM 12/10/2019,04/01/2009 Pneumococcal [...] 04/26/2024 9:00 AM EST Office Visit Hematology/Oncology [facility] 200 [facility] [place] [phone] Fernando Solo MD 200 [place] [address] 04/27/2024 2:30 PM EST Office Visit Family Practice [address] [facility] 293 [place] [phone] College, Pharmacist [address] [address] 04/27/2024 3:00 PM EST Office Visit Family Practice [facility] [address] [facility] [place] [phone] Apolinar Wayne, 293 [place] [address] 05/21/2024 2:30 PM EST Office Visit Urology Garima Meyers [address] [address] Michelle Rodriguez PA-C [address] [address] Scheduled Procedures Name Priority Associated Diagnoses Date/Ti [...] this encounter Medical Devices Implanted Type Area Able Seaman Device Identifier Shelf Expiration Date Model / Serial / Lot Graft Lyoplant 5.0x5.0cm 2x2 - [id number] Implanted:Qty : 1 on 06/24/2020 by Madi Kaur MD [place] [facility] [place]: Head B ALICEA : AESCULAP 11/18/2024 [id number] / / [id number] Graft Lyoplant 5.0x5.0cm 2x2 - [id number] Implanted:Qty : 1 on 06/24/2020 by Madi Kaur MD at [place] [facility] [place] B ALICEA : AESCULAP [id number] 11/18/2024 [id number] / [id number] / [id number] Graft Lyoplant 5.0x5.0cm 2x2 - [id number] Implanted:Qty : 1 on 06/24/2020 by Madi Kaur MD at [place] [facility] [place]: Head B ALICEA : AESCULAP 06/24/2020 [id number] / / [id number] Graft Lyoplant 5.0x5.0cm 2x2 - [id number] Implanted:Qty : 1 on 06/24/2020 by Madi Kaur MD at [place] [facility] [place] B ALICEA : AESCULAP [id number] 11/18/2024 [id number] / [id number] / [id number] Plate Ti Lo Pro Str 2h 421.502 - [id number] Implanted:Qty : 2 on 06/24/2020 by Madi Kaur MD at [place] [facility] [place]: Head SYNTHES MAXILLOFACIAL 421.502 / / Plate Bx Ti [id number] 4h 421.521 - [id number] Implanted:Qty : 1 on 06/24/2020 by Madi Kaur MD at [place] [facility] [place] Right: Head SYNTHES MAXILLOFACIAL 421.521 / / Screw Ti Lo Pro Sd 4mm 400.834 - [id number] Implanted:Qty : 7 on 06/24/2020 by Madi Kaur MD at [place] [facility] [place] Right: Head SYNTHES MAXILLOFACIAL [...] Agents on File Name Relationship Healthcare Agent [facility] p Communication Aimee Lam Spouse Health Care Agent Care Teams Acute Care Assistant Relationship Specialty Start Date End Date Apolinar Wayne DO [address] [place] [facility] [place] [address] PCP - General Internal Medicine 11/15/23 documented as of this encounter
--- OUTSIDE RECORDS SUMMARY | 2024-04-27 23:13 | External Medical Summary | Summary of Care ---
Author Name Unknown Organization [facility] Address [address] [place] [address] Phone [phone] Care Team Providers Care Sports Bookmaker Name Role Phone Apolinar Wayne DO Primary Care Provider [phone] Reason for Visit * Reason Onset Date Comments Other 04/19/202404/19 Encounter Details Date Type Department Care Team (Late st Contact Info) Description 04/19/2024 Telephone Family Practice [address], [place] [address] [place] [address] Apolinar Wayne DO 293 [place] [address] Other (04/19) Allergies Active Allergy [...] of major depressive disorder without prior episode ([facility]),PTSD (post-traumatic stress disorder) Take 1 Tablet [...] 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 06/27/2018 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 (Household - for ages [...] 04/19/2024 1:05 PM EST Follow up with [facility] regarding son, Ulysses's, request for PT for patient while he is on hospice. CM called [facility] and spoke to facility maintenance manager-- per their records: wind up worker was there today. RN and aide were at the home yesterday; home inspector to be at house later today. PT is not covered by [facility] per management there; if they want to pursue that via another home health agency, it would be all out of pocket. In addition, it would border along the lines of seeking aggressive therapy and would potentially get patient let go from hospice services. Called Ulysses--advised what [facility] said; stated out of pocket expenses are [...] frustrated, but said he will be contacting [facility] and get an idea of what next [...] physical therapy. He can be reached @ [phone]. documented in this encounter Plan of Treatment Upcoming Encounters Date Type Department Care Team (Late st Contact Info) Description 04/26/2024 9:00 AM EST Office Visit Hematology/Oncology [facility] [address] [place] [address] [phone] Fernando Solo MD [address] [address] 04/27/2024 2:30 PM EST Office Visit Family Practice [address], [place] 293 [place] [phone] College, Pharmacist [address] [facility] 293 [facility] [address] 04/27/2024 3:00 PM EST Office Visit [facility] [address] [place] [phone] Apolinar Wayne, 293 [facility] [place] [address] 05/21/2024 2:30 PM EST Office Visit Urology Garima Meyers [address] [address] Michelle Rodriguez PA-C [address] [address] Scheduled Procedures Name Priority Associated Diagnoses Date/Ti [...] this encounter Medical Devices Implanted Type Area Cell Tender Helper Device Identifier Shelf Expiration Date Model / Serial / Lot Graft Lyoplant 5.0x5.0cm 2x2 - [id number] Implanted:Qty : 1 on 06/24/2020 by Madi Kaur MD at OR [facility] [place] Right: Head B ALICEA : AESCULAP 11/18/2024 [id number] / / [id number] Graft Lyoplant 5.0x5.0cm 2x2 - [id number] Implanted:Qty : 1 on 06/24/2020 by Madi Kaur MD at OR [facility] [place] B ALICEA : AESCULAP [id number] 11/18/2024 [id number] / [id number] / [id number] Graft Lyoplant 5.0x5.0cm 2x2 - [id number] Implanted:Qty : 1 on 06/24/2020 by Madi Kaur MD at OR [facility] [place] Right: Head B ALICEA : AESCULAP 06/24/2020 [id number] / / [id number] Graft Lyoplant 5.0x5.0cm 2x2 - [id number] Implanted:Qty : 1 on 06/24/2020 by Madi Kaur MD at OR [facility] [place] B ALICEA : AESCULAP [id number] 11/18/2024 [id number] / [id number] / [id number] Plate Ti Lo Pro Str 2h 421.502 - [id number] Implanted:Qty : 2 on 06/24/2020 by Madi Kaur MD at OR [facility] [place] Right: Head SYNTHES MAXILLOFACIAL 421.502 / / Plate Bx Ti [id number] 4h 421.521 - [id number] Implanted:Qty : 1 on 06/24/2020 by Madi Kaur MD at OR [facility] [place] Right: Head SYNTHES MAXILLOFACIAL 421.521 / / Screw Ti Lo Pro Sd 4mm 400.834 - [id number] Implanted:Qty : 7 on 06/24/2020 by Madi [...] Agents on File Name Relationship Healthcare Agent [facility] Communication Aimee Lam Spouse Health Care Agent Care Teams Sports Bookmaker Relationship Specialty Start Date End Date Apolinar Wayne DO [address] [place] [address] PCP - General Internal Medicine 11/15/23 documented as of this encounter
--- OUTSIDE RECORDS SUMMARY | 2024-04-27 23:13 | External Medical Summary | Summary of Care ---
Author Name Unknown Organization [facility] Address [address] [place] [address] Phone [phone] Care Team Providers Care Crew Lead Name Role Phone Apolinar Wayne DO Primary Care Provider [phone] Reason for Visit * Reason Onset Date Comments Other 04/19/202404/19 Encounter Details Date Type Department Care Team (Late st Contact Info) Description 04/19/2024 Telephone Family Practice [address], [place] [address] [place] [address] Apolinar Wayne DO [address] [place] [address] Other (04/19) Allergies Active Allergy [...] goal of less than 7.0% ([facility]) Use as directed every 14 days [...] depressive disorder without prior episode ([facility]),PTSD (post-traumatic stress disorder) Take 1 Tablet [...] 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 06/27/2018 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 (Household - for [...] 04/19/2024 1:05 PM EST Follow up with [facility] regarding son, Ulysses's, request for PT for patient while he is on hospice. CM called [facility] and spoke to store deli manager-- per their records: marriage and family social worker was there today. RN and aide were at the home yesterday; field assistant to be at house later today. PT is not covered by [facility] per management there; if they want to pursue that via another home health agency, it would be all out of pocket. In addition, it would border along the lines of seeking aggressive therapy and would potentially get patient let go from hospice services. Called Ulysses--advised what [facility] said; stated out of pocket expenses [...] frustrated, but said he will be contacting [facility] and get an idea of what [...] physical therapy. He can be reached @ [phone]. documented in this encounter Plan of Treatment Upcoming Encounters Date Type Department Care Team (Late st Contact Info) Description 04/26/2024 9:00 AM EST Office Visit Hematology/Oncology [facility] [address] [place] [phone] Fernando Solo MD [address] [address] 04/27/2024 2:30 PM EST Office Visit Family Practice [address], [place] 293 [place] [address] College, Pharmacist [address] [facility] 293 [place] [address] 04/27/2024 3:00 PM EST [facility] [address] [place] [phone] Apolinar Wayne, 293 [place] [address] 05/21/2024 2:30 PM EST Office Visit Urology Garima Meyers [address] [address] Michelle Rodriguez PA-C [address] [address] Scheduled Procedures Name Priority Associated Diagnoses Date/Ti [...] this encounter Medical Devices Implanted Type Area Clinical Research Manager Device Identifier Shelf Expiration Date Model / Serial / Lot Graft Lyoplant 5.0x5.0cm 2x2 - [id number] Implanted:Qty : 1 on 06/24/2020 by Madi Kaur MD at [place] [facility] [place] Right: Head B ALICEA : AESCULAP 11/18/2024 [id number] / / [id number] Graft Lyoplant 5.0x5.0cm 2x2 - [id number] Implanted:Qty : 1 on 06/24/2020 by Madi Kaur MD at [place] [facility] [place] B ALICEA : AESCULAP [id number] 11/18/2024 [id number] / [id number] / [id number] Graft Lyoplant 5.0x5.0cm 2x2 - [id number] Implanted:Qty : 1 on 06/24/2020 by Madi Kaur MD at [place] [facility] [place] Right: Head B ALICEA : AESCULAP 06/24/2020 [id number] / / [id number] Graft Lyoplant 5.0x5.0cm 2x2 - [id number] Implanted:Qty : 1 on 06/24/2020 by Madi Kaur MD at [place] [facility] [place] B ALICEA : AESCULAP [id number] 11/18/2024 [id number] / [id number] / [id number] Plate Ti Lo Pro Str 2h 421.502 - [id number] Implanted:Qty : 2 on 06/24/2020 by Madi Kaur MD at [place] [facility] [place] Right: Head SYNTHES MAXILLOFACIAL 421.502 / / Plate Bx Ti [id number] 4h 421.521 - [id number] Implanted:Qty : 1 on 06/24/2020 by Madi Kaur MD at [place] [facility] [place] Right: Head SYNTHES MAXILLOFACIAL 421.521 / / Screw Ti Lo Pro Sd 4mm 400.834 - [id number] Implanted:Qty : 7 on 06/24/2020 by Madi Kaur MD at [place] [facility] [place] Right: Head SYNTHES [...] Agents on File Name Relationship Healthcare Agent [facility] Communication Aimee Lam Spouse Health Care Agent Care Teams Crew Lead Relationship Specialty Start Date End Date Apolinar Wayne DO [address] [place] [place] [address] PCP - General Internal Medicine 11/15/23 documented as of this encounter
--- OUTSIDE RECORDS SUMMARY | 2024-04-27 23:13 | External Medical Summary | Summary of Care ---
Author Name Unknown Organization [facility] Address [address] [place] [address] Phone [phone] Care Team Providers Care Heating Mechanic Name Role Phone Apolinar Wayne DO Primary Care Provider [phone] Reason for Visit * Reason Onset Date Comments Other 04/19/202404/19 Encounter Details Date Type Department Care Team (Late st Contact Info) Description 04/19/2024 Telephone Family Practice [address], [place] [address] [place] [address] Apolinar Wayne DO [address] [place] [address] Other (04/19) Allergies Active Allergy [...] goal of less than 7.0% ([facility]) Use as directed every 14 [...] depressive disorder without prior episode ([facility]),PTSD (post-traumatic stress disorder) Take 1 Tablet [...] 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 06/27/2018 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 (Household - for [...] 04/19/2024 1:05 PM EST Follow up with [facility] regarding son, Ulysses's, request for PT for patient while he is on hospice. CM called [facility] and spoke to personalized living manager-- per their records: scrap yard worker was there today. RN and aide were at the home yesterday; surgery attendant to be at house later today. PT is not covered by [facility] per management there; if they want to pursue that via another home health agency, it would be all out of pocket. In addition, it would border along the lines of seeking aggressive therapy and would potentially get patient let go from hospice services. Called Ulysses--advised what [facility] said; stated out of pocket expenses [...] frustrated, but said he will be contacting [facility] and get an idea of what [...] physical therapy. He can be reached @ [phone]. documented in this encounter Plan of Treatment Upcoming Encounters Date Type Department Care Team (Late st Contact Info) Description 04/26/2024 9:00 AM EST Office Visit Hematology/Oncology [facility] [address] [place] [address] [address] [phone] Fernando Solo MD [address] [address] 04/27/2024 2:30 PM EST Office Visit Family Practice [address] [place] 293 [place] [address] College, Pharmacist [address] [facility] 293 [facility] [place] [place] [address] 04/27/2024 3:00 PM EST [facility] [address] [place] [phone] Apolinar Wayne, 293 [facility] [place] [address] 05/21/2024 2:30 PM EST Office Visit Urology Garima Meyers [address] [address] Michelle Rodriguez PA-C [address] [address] Scheduled Procedures Name Priority Associated Diagnoses Date/Ti [...] this encounter Medical Devices Implanted Type Area Latex Ribbon Machine Operator Device Identifier Shelf Expiration Date Model / Serial / Lot Graft Lyoplant 5.0x5.0cm 2x2 - [id number] Implanted:Qty : 1 on 06/24/2020 by Madi Kaur MD [place] [facility] [place]: Head B ALICEA : AESCULAP 11/18/2024 [id number] / / [id number] Graft Lyoplant 5.0x5.0cm 2x2 - [id number] Implanted:Qty : 1 on 06/24/2020 by Madi Kaur MD [place] [facility] [place] B ALICEA : AESCULAP [id number] 11/18/2024 [id number] / [id number] / [id number] Graft Lyoplant 5.0x5.0cm 2x2 - [id number] Implanted:Qty : 1 on 06/24/2020 by Madi Kaur MD [place] [facility] [place]: Head B ALICEA : AESCULAP 06/24/2020 [id number] / / [id number] Graft Lyoplant 5.0x5.0cm 2x2 - [id number] Implanted:Qty : 1 on 06/24/2020 by Madi Kaur MD [place] [facility] [place] B ALICEA : AESCULAP [id number] 11/18/2024 [id number] / [id number] / [id number] Plate Ti Lo Pro Str 2h 421.502 - [id number] Implanted:Qty : 2 on 06/24/2020 by Madi Kaur MD [place] [facility] [place]: Head SYNTHES MAXILLOFACIAL 421.502 / / Plate Bx Ti [id number] 4h 421.521 - [id number] Implanted:Qty : 1 on 06/24/2020 by Madi Kaur MD [place] [facility] [place]: Head SYNTHES MAXILLOFACIAL 421.521 / / Screw Ti Lo Pro Sd 4mm 400.834 - [id number] Implanted:Qty : 7 on 06/24/2020 by Madi Kaur MD [place] [facility] [place]: Head SYNTHES MAXILLOFACIAL 400.834 / / [...] Agents on File Name Relationship Healthcare Agent [facility] Communication Aimee Lam Spouse Health Care Agent Care Teams Heating Mechanic Relationship Specialty Start Date End Date Apolinar Wayne DO [address] [place] [facility] [place] [address] PCP - General Internal Medicine 11/15/23 documented as of this encounter
--- OUTSIDE RECORDS SUMMARY | 2024-04-27 23:13 | External Medical Summary | Summary of Care ---
Author Name Unknown Organization [facility] Address [address] [place] [address] Phone [phone] Care Team Providers Care Cook Pie Name Role Phone Apolinar Wayne DO Primary Care Provider [phone] Reason for Visit * Reason Onset Date Comments FYI 04/23/2024 Encounter Details Date Type Department Care Team (Late st Contact Info) Description 04/23/2024 Telephone Family Practice [address] [place] [address] [place] [address] Apolinar Wayne DO [address] [place], [place] [id number] FYI Allergies Active Allergy Reactions Criticality Noted Date Comments Erythromycin 07/02/1998 GI upset Guaifenesin & Derivatives 03/18/1997 nucofed documented as of this encounter (statuses as of 04/26/2024) Medications BD Pen Needle Altagracia U/F 32G X 4 MM (Insulin Pen Needle) Use to inject insulin 4 times a day 200 Each 3 021 Active SURGICAL COMPRESSION STOCKING 20 to 30mm knee high. 2 Each 6 021 Active B Complex (Folic Acid) Oral TabletIndications :general health Take 1 Tablet by mouth in the morning. Active Vitamin D3 25 MCG (1000 UT) Oral CapsuleIndication s:general health Take 1 Capsule by mouth every evening. Active FreeStyle Aarti 2 SensorIndications :Type 2 diabetes mellitus with hemoglobin A1c goal of less than 7.0% ([facility]) Use as directed every 14 days . 1 Each Active Magnesium Oxide 420 MG Oral TabletIndications :general health Take 1 Tablet by mouth every evening. Active Gabapentin 300 MG Oral Capsule (Neurontin) TAKE BY MOUTH ONE CAPSULE IN THE MORNING AND ONE CAPSULE AT NOON AND ONE CAPSULE BEFORE BEDTIME 300 Capsule 3 02/11/20 24 8:14 AM EST 2024 Active Sertraline HCl 100 MG Oral Tablet (Zoloft)Indicatio ns:Current moderate episode of major depressive disorder without prior episode ([facility]),PTSD (post-traumatic stress disorder) Take 1 [...] 1 12/30/19 24 2:07 PM EDT Active Atorvastatin Calcium 80 MG Oral Tablet [...] 03/22/19 25 2:47 PM EST 024 Active Finasteride 5 MG Oral Tablet (Proscar) TAKE ONE TABLET BY MOUTH EVERY DAY IN THE MORNING 100 Tablet 1 03/27/19 25 2:09 PM EST 025 Active Carvedilol 3.125 MG Oral Tablet (Coreg)Indication s: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 200 Tablet 3 025 Active Tamsulosin HCl 0.4 MG Oral Capsule (Flomax) Take 1 Capsule by mouth in the morning. 100 Capsule 3 025 Active Glucerna Shake Oral Liquid Take by mouth 2 times a day. Active Ondansetron 4 MG Oral Tablet Disintegrating (Zofran) Place 1 Tablet on tongue every 8 hours as needed for Nausea. dissolve on tongue. 20 Tablet 025 2024 Discontinued documented as of this encounter (statuses as of 04/26/2024) Active Problems Problem Noted Date Diagnosed Date [...] as of this encounter (statuses as of 04/26/2024) Resolved Problems Problem Noted Date Diagnosed Date [...] as of this encounter (statuses as of 04/26/2024) Immunizations Name Administration Dates Next Due COVID-19 mRNA, LNP-s, No Pre serve, 2-Dose Series ([facility]) 03/10/2021,06/07/2020,05/17/2020 COVID-19, LNP-s, No Preserve , Chandler-sucrose, Ages 12+ (Pfizer) 11/17/2021 COVID-19, MRNA-LNP, PF, 30 M CG/0.3 mL, 12 YRS AND ABOVE, IM (PFIZER-Comirnaty) 01/17/2024,03/08/2023 Covid-19, Mrna, Lnp-s, Pf, B ivalent, 30 Mcg, IM, 12 yrs and above ([facility]) 04/13/2022 H1N1 2009 Influenza, IM 12/10/2019,04/01/2009 Pneumococcal [...] No 03/06/2024 Does the household have a [facility] source of income? (Household - for [...] ages 0-17 years) Not on file 03/06/2024 Food Insecurity Answer Date Recorded Within the past 12 months, y ou worried that your food would run out before you got the money to buy more. Never true 03/06/20 24 Within the past 12 months, t he food you bought just didn't last and you didn't have money to get more. Never true 03/06/2024 Do you need food for this week? No 03/06/2024 Sex and Gender Information Value Date [...] Telephone Encounter - Sadie Madera LPN - 04/26/2024 1:19 PM EST Called son and Aimee, Please sign will send email * Telephone Encounter - Rain Yañez RN - 04/23/2024 3:11 PM EST [facility] Aimee; left voicemail. * Telephone Encounter - Apolinar Wayne DO - 04/23/2024 3:05 PM EST Start Zofran ODT 4 mg three times a day as needed for Nausea * Telephone Encounter - Rain Yañez RN - 04/23/2024 2:46 PM EST CM call to Ulysses, son. [facility] will be coming to house on . Looking for more personal home care aides. Gilbert is vomiting x 24 hours. Hospice nurse concerned it may be GI bug. Drinking water this morning; and some pudding. Ulysses states hospice nurse cannot do IV fluids in the outpatient setting. No plans at this time to pursue physical therapy. documented in this encounter Plan of Treatment Scheduled Procedures Name Priority Associated Diagnoses Date/Ti [...] this encounter Medical Devices Implanted Type Area Certified Flex Endoscope Reprocessor Device Identifier Shelf Expiration Date Model / Serial / Lot Graft Lyoplant 5.0x5.0cm 2x2 - [id number] Implanted:Qty : 1 on 06/24/2020 by Madi Kaur MD [place] [facility] [place]: Head B ALICEA : AUTUMNCULAP 11/18/2024 [id number] / / [id number] Graft Lyoplant 5.0x5.0cm 2x2 - [id number] Implanted:Qty : 1 on 06/24/2020 by Madi Kaur MD [place] [facility] [place] B ALICEA : AUTUMNCULAP [id number] 11/18/2024 [id number] / [id number] / [id number] Graft Lyoplant 5.0x5.0cm 2x2 - [id number] Implanted:Qty : 1 on 06/24/2020 by Madi Kaur MD at [place] [facility] [place] Right: Head B ALICEA : AESCULAP 06/24/2020 [id number] / / [id number] Graft Lyoplant 5.0x5.0cm 2x2 - [id number] Implanted:Qty : 1 on 06/24/2020 by Madi Kaur MD at [place] [facility] [place] B ALICEA : AESCULAP [id number] 11/18/2024 [id number] / [id number] / [id number] Plate Ti Lo Pro Str 2h 421.502 - [id number] Implanted:Qty : 2 on 06/24/2020 by Madi Kaur MD at [place] [facility] [place] Right: Head SYNTHES MAXILLOFACIAL 421.502 / / Plate Bx Ti [id number] 4h 421.521 - [id number] Implanted:Qty : 1 on 06/24/2020 by Madi Kaur MD at [place] [facility] [place] Right: Head SYNTHES MAXILLOFACIAL 421.521 / / Screw Ti Lo Pro Sd 4mm 400.834 - [id number] Implanted:Qty : 7 on 06/24/2020 by Madi [...] Name Relationship Healthcare Agent [facility] p Communication Aimee Lam Spouse Health Care Agent Care Teams Cook Pie Relationship Specialty Start Date End Date Apolinar Wayne DO [address] [place] [address] PCP - General Internal Medicine 11/15/23 documented as of this encounter
--- OUTSIDE RECORDS SUMMARY | 2024-04-27 23:13 | External Medical Summary | Summary of Care ---
Author Name Unknown Organization [facility] Address [address] [place] [address] Phone [phone] Care Team Providers Care Production Supv Name Role Phone Apolinar Wayne DO Primary Care Provider [phone] Reason for Visit * Reason Onset Date Comments FYI 04/23/2024 Encounter Details Date Type Department Care Team (Late st Contact Info) Description 04/23/2024 Telephone Family Practice [address], [place] [address] [place] [address] Apolinar Wayne DO [address] [place], [place] [id number] FYI Allergies Active Allergy Reactions Criticality Noted [...] hemoglobin A1c goal of less than 7.0% ([facility]) Use as directed every 14 [...] of major depressive disorder without prior episode ([facility]),PTSD (post-traumatic stress disorder) Take 1 [...] mRNA, LNP-s, No Pre serve, 2-Dose Series ([email or web address]) 03/10/2021,06/07/2020,05/17/2020 COVID-19, LNP-s, No Preserve , Chandler-sucrose, Ages 12+ (Pfizer) 11/17/2021 COVID-19, MRNA-LNP, PF, 30 M CG/0.3 mL, 12 YRS AND ABOVE, IM (PFIZER-Comirnaty) 01/17/2024,03/08/2023 Covid-19, Mrna, Lnp-s, Pf, B ivalent, 30 Mcg, IM, 12 yrs and above ([email or web address]) 04/13/2022 H1N1 2009 Influenza, IM 12/10/2019,04/01/2009 Pneumococcal [...] Does the household have a [facility] source of income? (Household - for [...] Yañez RN - 04/23/2024 3:11 PM EST [facility] Aimee; left voicemail. * Telephone Encounter - Apolinar Wayne DO - 04/23/2024 3:05 PM EST Start Zofran ODT 4 mg three times a day as needed for Nausea * Telephone Encounter - Rain Yañez RN - 04/23/2024 2:46 PM EST CM call to Ulysses, son. [facility] will be coming [...] this encounter Medical Devices Implanted Type Area Rope Laying Machine Operator Device Identifier Shelf Expiration Date Model / Serial / Lot Graft Lyoplant 5.0x5.0cm 2x2 - [id number] Implanted:Qty : 1 on 06/24/2020 by Madi Kaur MD at [place] [facility] [place] Right: Head B ALICEA : AUTUMNCULAP 11/18/2024 [id number] / / [id number] Graft Lyoplant 5.0x5.0cm 2x2 - [id number] Implanted:Qty : 1 on 06/24/2020 by Madi Kaur MD at [place] [facility] [place] B ALICEA : AUTUMNCULAP [id number] 11/18/2024 [id number] / [id number] / [id number] Graft Lyoplant 5.0x5.0cm 2x2 - [id number] Implanted:Qty : 1 on 06/24/2020 by Madi Kaur MD at OR [facility] [place] Right: Head B ALICEA : AESCULAP 06/24/2020 [id number] / / [id number] Graft Lyoplant 5.0x5.0cm 2x2 - [id number] Implanted:Qty : 1 on 06/24/2020 by Madi Kaur MD at OR [facility] [place] B ALICEA : AESCULAP [id number] 11/18/2024 [id number] / [id number] / [id number] Plate Ti Lo Pro Str 2h 421.502 - [id number] Implanted:Qty : 2 on 06/24/2020 by Madi Kaur MD at [place] [facility] [place] Right: Head SYNTHES MAXILLOFACIAL 421.502 / / Plate Bx Ti [id number] 4h 421.521 - [id number] Implanted:Qty : 1 on 06/24/2020 by Madi Kuar MD at [place] [facility] [place] Right: Head SYNTHES MAXILLOFACIAL 421.521 / / Screw Ti Lo Pro Sd 4mm 400.834 - [id number] Implanted:Qty : 7 on 06/24/2020 by Madi [...] Agents on File Name Relationship Healthcare Agent [facility] p Communication Aimee Lam Spouse Health Care Agent Care Teams Production Supv Relationship Specialty Start Date End Date Apolinar Wayne DO [address] [place] [address] PCP - General Internal Medicine 11/15/23 documented as of this encounter
--- OUTSIDE RECORDS SUMMARY | 2024-04-27 23:14 | External Medical Summary | Summary of Care ---
Author Name Unknown Organization [facility] Address [address] [place] [address] Phone [phone] Care Team Providers Care Core Maker Helper Name Role Phone Apolinar Wayne DO Primary Care Provider [phone] Reason for Visit * Reason Onset Date Comments Advice 04/11/2024 Order Request 04/11/2024 Encounter Details Date Type Department Care Team (Late st Contact Info) Description 04/11/2024 Telephone [facility] [place] [address] [place] [address] Services, [facility] [address] [place] [address] Advice; Order Request Allergies Active Allergy Reactions Criticality Noted Date Comments Erythromycin 07/02/1998 GI upset Guaifenesin & Derivatives 03/18/1997 nucofed documented as of this encounter (statuses as of 04/12/2024) Medications BD Pen Needle Altagracia U/F 32G X 4 MM (Insulin Pen Needle) Use to inject insulin 4 times a day 200 Each 3 07/05/19 21 Active SURGICAL COMPRESSION STOCKING 20 to 30mm knee high. 2 Each 6 11/05/19 21 Active B Complex (Folic Acid) Oral TabletIndications :general health Take 1 Tablet by mouth in the morning. 04/15/19 Active Vitamin D3 25 MCG (1000 UT) Oral CapsuleIndication s:general health Take 1 Capsule by mouth every evening. 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 10/27/2017 History of [...] as of this encounter (statuses as of 04/12/2024) Resolved Problems Problem Noted Date Diagnosed Date [...] as of this encounter (statuses as of 04/12/2024) Immunizations Name Administration Dates Next Due COVID-19 mRNA, LNP-s, No Pre serve, 2-Dose Series (Strap) 03/10/2021,06/07/2020,05/17/2020 COVID-19, LNP-s, No Preserve , Chandler-sucrose, Ages 12+ (Pfizer) 11/17/2021 COVID-19, MRNA-LNP, PF, 30 M CG/0.3 mL, 12 YRS AND ABOVE, IM (PFIZER-Comirnaty) 01/17/2024,03/08/2023 Covid-19, Mrna, Lnp-s, Pf, B ivalent, 30 Mcg, IM, 12 yrs and above (Strap) 04/13/2022 H1N1 2009 Influenza, IM 12/10/2019,04/01/2009 Pneumococcal [...] encounter Miscellaneous Notes * Telephone Encounter - [place] PA-C - 04/12/2024 9:08 AM EST This should go through oncology. It appears he is scheduled with Dr. Solo in the future. I am surethey are having someone manage Dr. Love's previous established patients. * Telephone Encounter - Ofe Thomas OSA - 04/11/2024 10:54 AM EST [facility] Phone Call Form- Requested Information from caller: Who is calling (not pt) name: Aimee relationship: Provider patient is established with: [facility] What is the concern or issue they are having: pt needs someone to call her - he wears an optune and needs a new prescription before the end of month so they can continue to cover this device- inthe past it was Dr. Oleary that did it Any additional details to add: no Phone number for nurse to call back: [phone] Are forms needed? no Medication Refill? no Verify Pharmacy information is correct. documented in this encounter Plan of Treatment Upcoming Encounters Date Type Department Care Team (Late st Contact Info) Description 04/16/2024 7:10 AM EST Laboratory Lab Mobile Phlebotomy [facility] [address] [facility] [place] [address] [facility], [facility] Draw [address] [facility] [place] [address] 04/17/2024 2:20 PM EST Office Visit Family Practice [address] [place] [address] [address] [place] [address] Apolinar Wayne, [address] [place] [address] 04/17/2024 3:30 PM EST Pharmacy Pharmacy Hematology Oncology [facility] [address] [place] [address] [facility], [facility] Clinic Hem/Onc [facility] [place] [address] 04/19/2024 10:30 AM EST Imaging Radiology [address] [facility] [place] [address] 04/23/2024 7:10 AM EST Laboratory Lab Mobile Phlebotomy [facility] [address] [facility] [place] [address] M[facility], Gml [facility] Home Draw [address] [facility] [place] [address] 04/26/2024 9:00 AM EST Office Visit Hematology/Oncology [facility] [address] [facility] [place] [address] Fernando Solo MD [address] [facility] [place] [address] 04/27/2024 3:00 PM EST Office Visit Family Practice [address] [facility], [place] [address] [facility] [place] [address] Apolinar Wayne DO [address] [place] [address] 04/30/2024 7:10 AM EST Laboratory Lab Mobile Phlebotomy [facility] [address] [place], [place] [address] Mv[facility], Gml Mobile Home Draw [address] [place] [address] 05/07/2024 7:10 AM EST Laboratory Lab Mobile Phlebotomy [facility] [address] [place] [address] M[facility], Gml Mobile Home Draw [address] [place] [address] 05/14/2024 7:10 AM EST Laboratory Lab Mobile Phlebotomy [facility] [address] [place] [address] M[facility], Gml Mobile Home Draw [address] [facility] [place] [address] 05/21/2024 7:10 AM EST Laboratory Lab Mobile Phlebotomy [facility] [address] [place] [address] Mv[facility], Gml Mobile Home Draw [address] [place] [address] 05/21/2024 2:30 PM EST Office Visit Urology Garima Meyers [address] [place] [address] Michelle Rodriguez PA-C [address] [place] [address] 05/28/2024 7:10 AM EDT Laboratory Lab Mobile Phlebotomy [facility] [address] [place] [address] Mv[facility], Gml Mobile Home Draw [address] [place] [address] 06/04/2024 7:10 AM EDT Laboratory Lab Mobile Phlebotomy [facility] [address] [facility] [place] [address] Mvmg, Gml Mobile Home Draw [address] [place] [address] 06/11/2024 7:10 AM EDT Laboratory Lab Mobile Phlebotomy [facility] [address] [place] [address] Mvmg, Gml [facility] Home Draw [address] [place] [address] 06/18/2024 7:10 AM EDT Laboratory Lab Mobile Phlebotomy [facility] [address] [facility] [place] [address] Mvmg, Gml Mobile Home Draw [address] [facility] [place] [address] Scheduled Procedures Name Priority Associated Diagnoses Date/Ti [...] this encounter Medical Devices Implanted Type Area Operations Specialist Device Identifier Shelf Expiration Date Model / Serial / Lot Graft Lyoplant 5.0x5.0cm 2x2 - [id number] Implanted:Qty : 1 on 06/24/2020 [place] Mad[place] Kaur [place] [facility] [place] Head B ALICEA : AESCULAP 11/18/2024 [id number] / / [id number] Graft Lyoplant 5.0x5.0cm 2x2 - [id number] Implanted:Qty : 1 on 06/24/2020 by Madi Kaur MD [place] [facility] [place] [facility] [place] ALICEA : AESCULAP [id number] 11/18/2024 [id number] / [id number] / [id number] Graft Lyoplant 5.0x5.0cm 2x2 - [id number] Implanted:Qty : 1 on 06/24/2020 by Madi Kaur [place] [facility] [place] [facility] [place]: Head B ALICEA : AESCULAP 06/24/2020 [id number] / / [id number] Graft Lyoplant 5.0x5.0cm 2x2 - [id number] Implanted:Qty : 1 on 06/24/2020 by Madi Kaur MD [place] [facility] [place] [facility] [place] ALICEA : AESCULAP [id number] 11/18/2024 [id number] / [id number] / [id number] Plate Ti Lo Pro Str 2h 421.502 - [id number] Implanted:Qty : 2 on 06/24/2020 by Madi Kaur [place] [facility] [facility] [place]: Head SYNTHES MAXILLOFACIAL 421.502 / / Plate Bx Ti [id number] 4h 421.521 - [id number] Implanted:Qty : 1 on 06/24/2020 by Madi Kaur [place] [facility] [place]: Head SYNTHES MAXILLOFACIAL 421.521 / / Screw Ti Lo Pro Sd 4mm 400.834 - [id number] Implanted:Qty : 7 on 06/24/2020 by Madi Kaur [place] [facility] [place]: Head [...] on File Name Relationship Healthcare Agent [facility] p Communication Aimee Lam Spouse Health Care Agent Care Teams Core Maker Helper Relationship Specialty Start Date End Date Apolinar Wayne DO [address] [place] [address] PCP - General Internal Medicine 11/15/23 documented as of this encounter
--- OUTSIDE RECORDS SUMMARY | 2024-04-27 23:14 | External Medical Summary | Summary of Care ---
Author Name Unknown Organization [facility] Address [address] [place] [address] Phone [phone] Care Team Providers Care Terminal Gauger Supervisor Name Role Phone Apolinar Wayne DO Primary Care Provider [phone] Reason for Visit * Reason Onset Date Comments FYI 04/10/2024 Encounter Details Date Type Department Care Team (Late st Contact Info) Description 04/10/2024 Telephone Family Practice [address] [place] [address] [place] [address] Apolinar Wayne DO [address] [place], [place] [phone] FYI Allergies Active Allergy Reactions Criticality Noted Date Comments Erythromycin 07/02/1998 GI upset Guaifenesin & Derivatives 03/18/1997 nucofed documented as of this encounter (statuses as of 04/13/2024) Medications BD Pen Needle Altagracia U/F 32G [...] depressive disorder without prior episode ([facility]),PTSD (post-traumatic stress disorder) Take 1 Tablet by [...] as of this encounter (statuses as of 04/13/2024) Active Problems Problem Noted Date Diagnosed Date [...] as of this encounter (statuses as of 04/13/2024) Resolved Problems Problem Noted Date Diagnosed Date [...] as of this encounter (statuses as of 04/13/2024) Immunizations Name Administration Dates Next Due COVID-19 mRNA, LNP-s, No Pre serve, 2-Dose Series ([employer]) 03/10/2021,06/07/2020,05/17/2020 COVID-19, LNP-s, No Preserve , Chandler-sucrose, Ages 12+ (Pfizer) 11/17/2021 COVID-19, MRNA-LNP, PF, 30 M CG/0.3 mL, 12 YRS AND ABOVE, IM ([facility]) 01/17/2024,03/08/2023 Covid-19, Mrna, Lnp-s, Pf, B ivalent, [...] Telephone Encounter - Rain Yañez RN - 04/13/2024 5:05 PM EST Spoke to Aimee, patient's at length. Dr. 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 She is very upset, and did notify her sons. She was unable to tell me if Gilbert is fully aware of the MRI report and ultimately poor prognosis. Aimee wanted to go and corn picker Gilbert right away at the hospital. I advised against this and said itwould only lead to more falls and potential worsening his condition. Stated he will most likely remain admitted through the weekend at the very least. I asked Aimee if she is open to hospice at home, she said she was. She gave me permission to call IP CM at [facility] and update them. CM did this and Salina at [facility] states she will pass it along to weekend CM, as it is end of day on Tuesday. Dr. Spain called and spoke with me. He said he has not directly told patient about the MRI report and poor prognosis, and said joel was there yesterday and he is aware. I said per the notes, it is clear that the and son are aware, but not the patient. Discussed with PCP, and agree that Dr. Spain needs to document that patient is fully aware of his diagnosis, prognosis, and test results to make a fully informed decision about next steps in plan of care. Dr. Spain made aware of our request and said "he would try" on round tomorrow. I then spoke to Ulysses, Denis's son, at request of his . He said his mom texted and said "tumor is back I am going to corn picker dad." He then called her and said she was very emotional and ask what has changed with being able to care for him at home? I told Ulysses I advised she not go and corn picker patient at the hospital, and he was appreciative. I explained that it is important that Gilbert make hisfully informed decision and that he needs to know the MRI results and updated poorer prognosis. Ulysses was not sure if his father was fully aware of everything. He said he will contact his dad and let know of all the findings and poor prognosis and give him the options of 1. Continue to fight and continue chemo and go to OP rehab, 2. Home on hospice, 3. Just go home. Encouraged that hospice is the most comfortable way for Denis to be at home and it aligns with what Denis wants-- to be at home. Per Ulysses, his dad has said from the beginning, he wants to at home. I gave Ulysses my direct phone # so he could call with questions. I do believe that Ulysses will be straight forward and practical to get Denis set up with hospice at home. Ulysses was concerned about next phone calls to make, etc. And I said as soon as Denis says hospice at home is what he wants, let the inpatient telehealth case manager do the hard work of figuring out what company to use, availability, insurance authorizations, etc. And advised to keep Denis at [facility] as he is safe and cared for- with a lot less risk of falls, accidents, additional injuries. He verbalized understanding. PCP and clinic staff updated. CM to follow up on Tuesday. * Telephone Encounter - Rain Yañez RN - 04/11/2024 10:41 AM EST Patient is currently admitted; DUSTIN Duval CM left me a VM yesterday and said (ER MD) Dr. Solo was made aware of all the concerns with patient staying at home that were from [facility]. This CM will continue to follow. Not many notes available this AM on plan of care in [facility]. * Telephone Encounter - Fernando Solo MD - 04/11/2024 8:59 AM EST This is for ER physician Dr. Liliana Solo. He is admitted at [facility]. * Telephone Encounter - Jefferson Alvarado RN - 04/11/2024 8:[address] Solo- did you receive a call from [facility]? Pt is admitted. MTM- fyi patient currently admitted. * Telephone Encounter - Rain Yañez RN - 04/10/2024 3:11 PM EST I spoke to Zelalem Nichols, OT and clinical harvesting supervisor at [facility] Direct phone #: [phone] He remains concerned pt is at increased risk for falls if he continues to be care for at home by the ; I updated Zelalem that patient is currently at [facility] ER due to a fall and hitting his head. Zelalem states a couple of his employees mentioned Aimee not being able to care for patient properlyat home. This CM called and spoke to VITA Duval at [facility] ER again. Updated her with OT's concerns and that hehas been in the home and his staff who has been in the home has concerns. Told her I have been working in the OP setting to try and get him placed, but if we can get him placed while he is at [facility], it would be best and potentially prevent further falls and pt decline. She asked if hospice had been broached, advised her he took his first dose of oral chemo last night, so he is actively still in treatment. Mukund states his imaging from the ER today looks good, and will relay additional information to Dr. Solo in the ER and see if he wants to admit patient for placement. * Telephone Encounter - Rain Yañez RN - 04/10/2024 2:48 PM EST Zelalem unavailable when I called back; I left my direct line when I left a message for him. * Telephone Encounter - Peggy Bynum OSA - 04/10/2024 2:35 PM EST Zeallem from would like to speak to nurse about recent fall. documented in this encounter Plan of Treatment Upcoming Encounters Date Type Department Care Team (Late st Contact Info) Description 04/16/2024 7:10 AM EST Laboratory Lab Mobile Phlebotomy [facility] [address] [place] [address] M[facility], Gml Mobile Home Draw [address] [facility] [place] [address] 04/17/2024 2:20 PM EST Office Visit Family Practice 65 [facility] 293 [facility], [place] [phone] Apolinar Wayne DO 293 [facility], [place] [address] 04/17/2024 3:30 PM EST Pharmacy Pharmacy Hematology Oncology [facility] [address] [place] [address] [facility] Hem/Onc [address] [place] [address] 04/19/2024 10:30 AM EST Imaging Radiology [facility]st [facility] [address] [place] [phone] 04/23/2024 7:10 AM EST Laboratory Lab Mobile Phlebotomy [facility] [address] [place] [address] Mv[facility], Gml Mobile Home Draw [address] [facility] [place], [place] [address] 04/26/2024 9:00 AM EST Office Visit Hematology/Oncology [facility] [place] [address] [place] [phone] Fernando Solo MD [address] [place] [address] 04/27/2024 2:30 PM EST Office Visit Family Practice 65 [facility] 293 [facility], [place] [phone] College, Pharmacist [address] [place] [address], [place] [address] 04/27/2024 3:00 PM EST Office Visit Family Practice [address] [place] [address] [place] [address] Apolinar Wayne, [address] [place] [address] 04/30/2024 7:10 AM EST Laboratory Lab Mobile Phlebotomy [facility] [address] [facility] [place] [address] Mvmg, Gml Mobile Home Draw [address] [facility] [place] [address] 05/07/2024 7:10 AM EST Laboratory Lab Mobile Phlebotomy [facility] [address] [facility] [place] [address] Mvmg, Gml Mobile Home Draw [address] [place] [address] 05/14/2024 7:10 AM EST Laboratory Lab Mobile Phlebotomy [facility] [address] [facility] [place] [address] Mvmg, Gml Mobile Home Draw [address] [place] [address] 05/21/2024 7:10 AM EST Laboratory Lab Mobile Phlebotomy [facility] [address] [facility] [place] [address] Mvmg, Gml Mobile Home Draw [address] [place] [address] 05/21/2024 2:30 PM EST Office Visit Urology Garima Meyers [address] [place] [address] Michelle Rodriguez PA-C [address] [place] [address] 05/28/2024 7:10 AM EDT Laboratory Lab Mobile Phlebotomy [facility] [address] [facility] [place] [address] Mvmg, Gml Mobile Home Draw [address] [place] [address] 06/04/2024 7:10 AM EDT Laboratory Lab Mobile Phlebotomy [facility] [address] [place], [place] [address] Mvmg, Gml Mobile Home Draw [address] [place] [address] 06/11/2024 7:10 AM EDT Laboratory Lab Mobile Phlebotomy [facility] [address] [place] [address] Mvmg, Gml Mobile Home Draw [address] [place] [address] 06/18/2024 7:10 AM EDT Laboratory Lab Mobile Phlebotomy [facility] [address] [place] [address] Mvmg, Gml Mobile Home Draw [address] [place], [place] [address] Scheduled Procedures Name Priority Associated Diagnoses Date/Ti [...] this encounter Medical Devices Implanted Type Area Fire Lieutenant Marine Device Identifier Shelf Expiration Date Model / Serial / Lot Graft Lyoplant 5.0x5.0cm 2x2 - [id number] Implanted:Qty : 1 on 06/24/2020 by Madi Kaur MD at [place] [facility] [place] Right: Head B ALICEA : ARIAN 11/18/2024 [id number] / / [id number] Graft Lyoplant 5.0x5.0cm 2x2 - [id number] Implanted:Qty : 1 on 06/24/2020 by Madi Kaur MD at [place] [facility] [place] B ALICEA : AUTUMNCUSHIVANI [id number] 11/18/2024 [id number] / [id number] / [id number] Graft Lyoplant 5.0x5.0cm 2x2 - [id number] Implanted:Qty : 1 on 06/24/2020 by Madi Kaur MD at [place] [facility] [place] Right: Head B ALICEA : AUTUMNCULACleo 06/24/2020 [id number] / / [id number] Graft Lyoplant 5.0x5.0cm 2x2 - [id number] Implanted:Qty : 1 on 06/24/2020 by Madi Kaur MD at OR [facility] B ALICEA : AESCULAP [id number] 11/18/2024 [id number] / [id number] / [id number] Plate Ti Lo Pro Str 2h 421.502 - [id number] Implanted:Qty : 2 on 06/24/2020 by Madi Kaur MD at [place] [facility] [place] Right: Head SYNTHES MAXILLOFACIAL 421.502 / / Plate Bx Ti [id number] 4h 421.521 - [id number] Implanted:Qty : 1 on 06/24/2020 by Madi Kaur MD at [place] [facility] [place] Right: Head SYNTHES MAXILLOFACIAL 421.521 / / Screw Ti Lo Pro Sd 4mm 400.834 - [id number] Implanted:Qty : 7 on 06/24/2020 by Madi [...] Lam Spouse Health Care Agent Care Teams Terminal Gauger Supervisor Relationship Specialty Start Date End Date Apolinar Wayne DO [address] [place] [address] PCP - General Internal Medicine 11/15/23 documented as of this encounter
--- OUTSIDE RECORDS SUMMARY | 2024-04-27 23:14 | External Medical Summary | Summary of Care ---
Author Name Unknown Organization [facility] Address [address] [place] [address] Phone [phone] Care Team Providers Care Metal Sprayer Protective Coating Name Role Phone Apolinar Wayne DO Primary Care Provider [phone] Encounter Details Date Type Department Care Team (Late st Contact Info) Description 04/13/2024 Population Health External Data Unspecified Department Allergies [...] goal of less than 7.0% ([facility]) Use as directed every 14 [...] mRNA, LNP-s, No Pre serve, 2-Dose Series ([employer]) 03/10/2021,06/07/2020,05/17/2020 COVID-19, LNP-s, No Preserve , Chandler-sucrose, [...] AM EST Laboratory Lab Mobile Phlebotomy [facility] [address] [place] [address] Mvmg, [facility] Mobile Home Draw [address] [place] [address] 04/17/2024 2:20 PM EST Office Visit Family Practice [address], [place] [address] [place] [address] Apolinar Wayne, [address] [place] [address] 04/17/2024 3:30 PM EST Pharmacy Pharmacy Hematology Oncology [address] [address] [facility] Hem/Onc [facility] [place] [address] 04/19/2024 10:30 AM EST Imaging Radiology [address] [place] [phone] 04/23/2024 7:10 AM EST Laboratory Lab Mobile Phlebotomy [facility] [address] [employer] [place], [place] [address] Mvmg, Gml Mobile Home Draw 2520 [facility] [place], [place] [address] 04/26/2024 9:00 AM EST Office Visit Hematology/Oncology [facility] 200 [facility] [place], [place] [phone] Fernando Solo MD 200 [place] [address] 04/27/2024 2:30 PM EST Office Visit Family Practice 65 [facility] 293 [place] [address] College, Pharmacist [address] [place] [address], [place] [address] 04/27/2024 3:00 PM EST Office Visit Family Practice [address] [place] [address] 293 [place] [address] Apolinar Wayne, DO 293 [place] [address] 04/30/2024 7:10 AM EST Laboratory Lab Mobile Phlebotomy [facility] [address] [facility] [place], [place] [address] Mvmg, Gml Mobile Home Draw 2520 [facility] [place], [place] [address] 05/07/2024 7:10 AM EST Laboratory Lab Mobile Phlebotomy [facility] [address] [facility] [place], [place] [address] Mvmg, Gml Mobile Home Draw [address] [employer] [place], [place] [address] 05/14/2024 7:10 AM EST Laboratory Lab Mobile Phlebotomy [facility] [address] [employer] [place], [place] [address] Mvmg, Gml Mobile Home Draw [address] [employer] [place], [place] [address] 05/21/2024 7:10 AM EST Laboratory Lab Mobile Phlebotomy [facility] [address] [employer] [place], [place] [address] Mvmg, Gml Mobile Home Draw [address] [employer] [place], [place] [address] 05/21/2024 2:30 PM EST Office Visit Urology Garima Meyers [address] [place] [address] Michelle Rodriguez PA-C [address] [place] [address] 05/28/2024 7:10 AM EDT Laboratory Lab Mobile Phlebotomy [facility] [address] [employer] [place], [place] [address] Mvmg, Gml Mobile Home Draw [address] [employer] [place], [place] [address] 06/04/2024 7:10 AM EDT Laboratory Lab Mobile Phlebotomy [facility] [address] [employer] [place], [place] [address] Mvmg, Gml Mobile Home Draw [address] [employer] [place], [place] [address] 06/11/2024 7:10 AM EDT Laboratory Lab Mobile Phlebotomy [facility] [address] [employer] [place], [place] [address] Mvmg, Gml Mobile Home Draw [address] [place] [address] 06/18/2024 7:10 AM EDT Laboratory Lab Mobile Phlebotomy [facility] [address] [employer] [place], [place] [address] Mvmg, Gml Mobile Home Draw [address] [employer] [place], [place] [address] Scheduled Procedures Name Priority Associated Diagnoses Date/Ti [...] this encounter Medical Devices Implanted Type Area [employer] French Teacher Device Identifier Shelf Expiration Date Model / Serial / Lot Graft Lyoplant 5.0x5.0cm 2x2 - [id number] Implanted:Qty : 1 on 06/24/2020 by Madi Kaur MD at OR [facility] Right: Head B ALICEA : AESCULAP 11/18/2024 [id number] / / [id number] Graft Lyoplant 5.0x5.0cm 2x2 - [id number] Implanted:Qty : 1 on 06/24/2020 by Madi Kaur MD at OR [facility] B ALICEA : AESCULAP [id number] 11/18/2024 [id number] / [id number] / [id number] Graft Lyoplant 5.0x5.0cm 2x2 - [id number] Implanted:Qty : 1 on 06/24/2020 by Madi Kaur MD at OR [facility] Right: Head B ALICEA : AESCULAP 06/24/2020 [id number] / / [id number] Graft Lyoplant 5.0x5.0cm 2x2 - [id number] Implanted:Qty : 1 on 06/24/2020 by Madi Kaur MD at OR [facility] B ALICEA : AESCULAP [id number] 11/18/2024 [id number] / [id number] / [id number] Plate Ti Lo Pro Str 2h 421.502 - [id number] Implanted:Qty : 2 on 06/24/2020 by Madi Kaur MD at OR [facility] [place] Right: Head SYNTHES MAXILLOFACIAL 421.502 / / Plate Bx Ti [id number] 4h 421.521 - [id number] Implanted:Qty : 1 on 06/24/2020 by Madi Kaur MD at OR [facility] Right: Head SYNTHES MAXILLOFACIAL 421.521 / / Screw Ti Lo Pro Sd 4mm 400.834 - [id number] Implanted:Qty : 7 on 06/24/2020 by Madi Kaur MD at [facility] Right: Head SYNTHES MAXILLOFACIAL 400.834 [...] Agents on File Name Relationship Healthcare Agent [facility] Communication Aimee Lam Spouse Health Care Agent Care Teams Metal Sprayer Protective Coating Relationship Specialty Start Date End Date Apolinar Wayne DO [address] [place] [address] PCP - General Internal Medicine 11/15/23 documented as of this encounter
--- OUTSIDE RECORDS SUMMARY | 2024-04-27 23:14 | External Medical Summary | Summary of Care ---
Author Name Unknown Organization [facility] Address [address] [place] [address] Phone [phone] Care Team Providers Care Vp Clinical Name Role Phone Apolinar Wayne DO Primary Care Provider Reason for Visit * Reason Onset Date Comments [facility]: Maintenance 04/17/2024 Encounter Details Date Type Department Care Team (Late st Contact Info) Description 04/17/2024 Telephone [facility], [facility] [address] [facility] [address] Aimee James, LIMITED RADIOLOGY TECHNICIAN [address] [place] [address] [facility]: Maintenance Allergies Active Allergy [...] mouth every evening. Active FreeStyle Aarit 2 SensorIndication s:Type 2 diabetes mellitus with hemoglobin A1c goal of less than 7.0% ([facility]) Use as directed every 14 days . 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 1 Each 1 4 2:07 PM EDT 024 Active Atorvastatin Calcium 80 [...] hours 10 mL 4 4:13 PM EST 024 Active Multiple Vitamins [...] 1 5 2:09 PM EST 025 Active Carvedilol 3.125 MG Oral Tablet (Coreg)Indicatio [...] mouth 2 times a day. Active Ondansetron HCl 8 MG Oral Tablet (Zofran)Indicati ons:Glioblastoma (HCC) Take 1 tablet by mouth 30 minutes prior to lomustine and every 8 hours as needed for nausea. Do not exceed 3 tablets per 24 hours. 60 Tablet 1 4 2:49 PM EDT 024 2024 Discontinued Docusate Sodium 50 MG Oral Capsule (Colace)Indicati ons:Glioblastoma (HCC) Take 1 Capsule by mouth in the morning and 1 Capsule before bedtime. 60 Capsule 3 025 2024 Discontinued Ondansetron HCl 8 MG Oral Tablet (Zofran)Indicati ons:Glioblastoma (HCC) Take 1 tablet by mouth 30 minutes prior to lomustine and every 8 hours as needed for nausea. Do not exceed 3 tablets per 24 hours. 60 Tablet 1 025 2024 Discontinued Lomustine 40 MG Oral Capsule (Ceenu)Indicatio ns:Glioblastoma (HCC) Take 4 Capsules by mouth every 6 weeks. Take on an empty stomach 4 Capsule 3:20 PM EST 025 2024 Discontinued documented as of this [...] mRNA, LNP-s, No Pre serve, 2-Dose Series ([employer]) 03/10/2021,06/07/2020,05/17/2020 COVID-19, LNP-s, No Preserve , Chandler-sucrose, Ages 12+ ([employer]) 11/17/2021 COVID-19, MRNA-LNP, PF, 30 M CG/0.3 [...] 5:01 AM Sa valentine Mosre RN * Do you have serious difficulty [...] Telephone Encounter - Lis Graham LPN - 04/19/2024 10:52 AM EST RPM DC task sent * Telephone Encounter - Aimee James LPN - 04/17/2024 1:02 PM EST Patient was discharged from [facility] today with [facility] Will forward to care team as FYI in regards to closing EOC documented in this encounter Plan of Treatment Upcoming Encounters Date Type Department Care Team (Late st Contact Info) Description 04/26/2024 9:00 AM EST Office Visit Hematology/Oncology [facility] 200 [facility] [place] [phone] Fernando [facility] MD 200 [facility] [address] 04/27/2024 2:30 PM EST Office Visit Family Practice 65 [facility] 293 [place] [phone] College, Pharmacist [address] [address] 04/27/2024 3:00 PM EST Office Visit Family Practice 65 [facility] 293 [place] [phone] Apolinar Wayne, 293 [place] [address] 05/21/2024 2:30 PM EST Office Visit Urology Garima Meyers [address] [place] [address] Michelle Rodriguez PA-C [address] [place] [address] [...] this encounter Medical Devices Implanted Type Area Spike Maker Device Identifier Shelf Expiration Date Model / Serial / Lot Graft Lyoplant 5.0x5.0cm 2x2 - [id number] Implanted:Qty : 1 on 06/24/2020 by Madi Kaur MD at [place] [facility] [place] Right: Head B ALICEA : AESCULAP 11/18/2024 [id number] / / [id number] Graft Lyoplant 5.0x5.0cm 2x2 - [id number] Implanted:Qty : 1 on 06/24/2020 by Madi Kaur MD at OR [facility] [place] B ALICEA : AESCULAP [id number] 11/18/2024 [id number] / [id number] / [id number] Graft Lyoplant 5.0x5.0cm 2x2 - [id number] Implanted:Qty : 1 on 06/24/2020 by Madi Kaur MD at [place] [facility] [place] Right: Head B ALICEA : AESCULAP 06/24/2020 [id number] / / [id number] Graft Lyoplant 5.0x5.0cm 2x2 - [id number] Implanted:Qty : 1 on 06/24/2020 by Madi Kaur MD at OR [facility] [place] B ALICEA : AESCULAP [id number] 11/18/2024 [id number] / [id number] / [id number] Plate Ti Lo Pro Str 2h 421.502 - [id number] Implanted:Qty : 2 on 06/24/2020 by Madi Kaur MD at OR [facility] [place] Right: Head SYNTHES MAXILLOFACIAL 421.502 / / Plate Bx Ti [id number] 4h 421.521 - [id number] Implanted:Qty : 1 on 06/24/2020 by Madi Kaur MD at OR [facility] [place] Right: Head SYNTHES MAXILLOFACIAL 421.521 / / Screw Ti Lo Pro Sd 4mm 400.834 - [id number] Implanted:Qty : 7 on 06/24/2020 by Madi Kaur MD at OR [facility] [place] Right: Head SYNTHES MAXILLOFACIAL [...] Lam Spouse Health Care Agent Care Teams Vp Clinical Relationship Specialty Start Date End Date Apolinar Wayne DO [address] [facility] [place] [address] PCP - General Internal Medicine 11/15/23 documented as of this encounter
--- OUTSIDE RECORDS SUMMARY | 2024-04-27 23:14 | External Medical Summary | Summary of Care ---
Author Name Unknown Organization [facility] Address [address] [place] [address] Phone [phone] Care Team Providers Care Integration Software Developer Name Role Phone Apolinar Wayne DO Primary Care Provider [phone] Reason for Visit * Reason Onset Date Comments Information 04/05/202404/05, 04/06 Encounter Details Date Type Department Care Team (Late st Contact Info) Description 04/05/2024 Telephone Family Practice [address], [place] [address] [place] [address] Apolinar Wayne DO [address] [place] [address] Information (04/05, 04/06 ) Allergies [...] depressive disorder without prior episode ([facility]),PTSD (post-traumatic stress disorder) Take 1 Tablet by [...] mRNA, LNP-s, No Pre serve, 2-Dose Series ([employer]) 03/10/2021,06/07/2020,05/17/2020 COVID-19, LNP-s, No Preserve , Chandler-sucrose, [...] encounter Miscellaneous Notes * Telephone Encounter - Crissy Lassiter OSA - 04/13/2024 3:18 PM EST Unsure if records were received and if this was addressed this past Tuesday? It's still in the front office basket. * Telephone Encounter - Rain Yañez RN - 04/09/2024 3:19 PM EST Spoke to today; patient has had 6 falls in the last 8 days- but has not hit his head. She saidit is usually he is walking with his walker, and "his legs just give out." Aimee is very back and forth, between inpatient rehab, respite stay, and in home care givers. I am awaiting the PT/OT records before I can submit to [facility] for approvals. * Telephone Encounter - Rain Yañez RN - 04/06/2024 1:49 PM EST Left with medial records from [facility] to get recent PT, OT, ST records to submit to [facility] for short term inpatient rehab stay. Gave [address] [place] phone #. I know PT was just today at 11am. If they call back, please have the records faxed to [place] office and place a copy on my [...] are refusing to have him at the [place]-- had a friend who was there and did not get good care- per patient. PT from [facility] home health is going out to the [...] it got denied- patient said that the PR should be picking up the tab of whatever [facility] does not cover. She said that happened for a long time, and then all of a sudden, nothing. She is going to contact the PR rep in [place] tomorrow to discuss this. She wanted advice on what facilities to look at- they are not interested in looking very far from their home. I told them both I would work on this tomorrow morning- to get recent PT/OT/ST evals [facility] on a afternoon I cannot do much. I also discussed about bed availability and the upcoming holiday as limiting factors. They verbalized understanding. I will be following up tomorrow. Any other ideas/recs? * Telephone Encounter - Sadie Madera LPN - 04/05/2024 4:43 PM EST Dany with speech therapy calling, Dany is with Onur and spouse. photofinishing laboratory worker consult has been placed. Family is requesting resp[facility] care at local [facility]. Patient has had physical therapy 1/3 cancellations from patient and spouse for following 3 appts. Only had one evaluation done. Can we work together to have patient placed for respite care? Willing to go some place for under < 30 days. Thank you * Telephone Encounter - Tamiko Santos, RT (R) - 04/05/2024 4:39 PM EST Dany from [facility] Speech Therapy calling regarding Denis. documented in this encounter Plan of Treatment Upcoming Encounters Date Type Department Care Team (Late st Contact Info) Description 04/16/2024 7:10 AM EST Laboratory Lab Mobile Phlebotomy [facility] [address] [facility] [place] [address] Mvmg, Gml Mobile Home Draw [address] [place] [address] 04/17/2024 2:20 PM EST Office Visit Family Practice [address], [place] [address] [place] [address] Apolinar Wayne, [address] [place] [address] 04/17/2024 3:30 PM EST Pharmacy Pharmacy Hematology Oncology [facility] [place] [address] [place] [address] [facility] Hem/Onc [address] [place] [address] 04/19/2024 10:30 AM EST Imaging Radiology [address] [place] [phone] 04/23/2024 7:10 AM EST Laboratory Lab Mobile Phlebotomy [facility] [address] [facility] [place], [place] [address] Mvmg, Gml Mobile Home Draw 2520 [facility], [place] [address] 04/26/2024 9:00 AM EST Office Visit Hematology/Oncology [facility] 200 [facility] [place], [place] [phone] Fernando Solo MD 200 [place] [address] 04/27/2024 2:30 PM EST Office Visit Family Practice [address] [place] [address] 293 [place] [phone] [place], Pharmacist [address] [place] [address] 04/27/2024 3:00 PM EST Office Visit Family Practice [address] [place] [address] 293 [place] [address] Apolinar Wayne, 293 [place] [address] 04/30/2024 7:10 AM EST Laboratory Lab Mobile Phlebotomy [facility] [address] [place] [address] Mvmg, Gml Mobile Home Draw [address] [place] [address] 05/07/2024 7:10 AM EST Laboratory Lab Mobile Phlebotomy [facility] [address] [place] [address] Mvmg, Gml Mobile Home Draw [address] [place] [address] 05/14/2024 7:10 AM EST Laboratory Lab Mobile Phlebotomy [facility] [address] [facility] [place], [place] [address] Mvmg, Gml Mobile Home Draw [address] [facility] [place], [place] [address] 05/21/2024 7:10 AM EST Laboratory Lab Mobile Phlebotomy [facility] [address] [place], [place] [address] Mvmg, Gml Mobile Home Draw [address] [place], [place] [address] 05/21/2024 2:30 PM EST Office Visit Garima Crum [address] [place] [address] [place] [address] Michelle Rodriguez PA-C [address] [place] [address] 05/28/2024 7:10 AM EDT Laboratory Lab Mobile Phlebotomy [facility] [address] [place], [place] [address] Mvmg, Gml Mobile Home Draw [address] [place], [place] [address] 06/04/2024 7:10 AM EDT Laboratory Lab Mobile Phlebotomy [facility] [address] [place] [address] Mvmg, Gml Mobile Home Draw [address] [place] [address] 06/11/2024 7:10 AM EDT Laboratory Lab Mobile Phlebotomy [facility] [address] [place] [address] Mvmg, Gml Mobile Home Draw [address] [address] 06/18/2024 7:10 AM EDT Laboratory Lab Mobile Phlebotomy [facility] [address] [address] Mvmg, Gml Mobile Home Draw [address] [place] [address] Scheduled Procedures Name Priority Associated Diagnoses Date/Ti [...] this encounter Medical Devices Implanted Type Area Collection Clerk Device Identifier Shelf Expiration Date Model / Serial / Lot Graft Lyoplant 5.0x5.0cm 2x2 - [id number] Implanted:Qty : 1 on 06/24/2020 by Madi Kaur [place] [facility] [place]: Head B ALICEA : AESCULAP 11/18/2024 [id number] / / [id number] Graft Lyoplant 5.0x5.0cm 2x2 - [id number] Implanted:Qty : 1 on 06/24/2020 by Madi Kaur MD [place] [facility] B ALICEA : AESCULAP [id number] 11/18/2024 [id number] / [id number] / [id number] Graft Lyoplant 5.0x5.0cm 2x2 - [id number] Implanted:Qty : 1 on 06/24/2020 by Madi Kaur MD [place] [facility] [place]: Head B ALICEA : AESCULAP 06/24/2020 [id number] / / [id number] Graft Lyoplant 5.0x5.0cm 2x2 - [id number] Implanted:Qty : 1 on 06/24/2020 by Madi Kaur MD [place] [facility] B ALICEA : AESCULAP [id number] 11/18/2024 [id number] / [id number] / [id number] Plate Ti Lo Pro Str 2h 421.502 - [id number] Implanted:Qty : 2 on 06/24/2020 by Madi Kaur MD [place] [facility] [place]: Head SYNTHES MAXILLOFACIAL 421.502 / / Plate Bx Ti [id number] 4h 421.521 - [id number] Implanted:Qty : 1 on 06/24/2020 by Madi Kaur MD [place] [facility] [place]: Head SYNTHES MAXILLOFACIAL 421.521 / / Screw Ti Lo Pro Sd 4mm 400.834 - [id number] Implanted:Qty : 7 on 06/24/2020 by Madi Kaur MD [place] [facility] [place]: Head SYNTHES MAXILLOFACIAL 400.834 / / [...] Lam Spouse Health Care Agent Care Teams Integration Software Developer Relationship Specialty Start Date End Date Apolinar Wayne DO [address] [place] [address] PCP - General Internal Medicine 11/15/23 documented as of this encounter
--- OUTSIDE RECORDS SUMMARY | 2024-04-27 23:14 | External Medical Summary | Summary of Care ---
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 Pt currently admitted. * Telephone Encounter - Crissy Lassiter OSA [...] PT/OT records before I can submit to [facility] for approvals. * Telephone Encounter - Rain Yañez RN - 04/06/2024 1:49 PM EST Left with [facility] records from [facility] to get recent PT, OT, ST records to submit to [facility] for short term inpatient rehab stay. Gave [address] [place] phone #. I know PT was just today at 11am. If they call back, please have the records faxed to [place] office and place a copy on my [...] are refusing to have him at the [place] home [place]-- had a friend who was there and [...] be picking up the tab of whatever [facility] does not cover. She said that happened for a long time, and then all of a sudden, nothing. She is going to contact the [facility] rep in [place] tomorrow to discuss this. She wanted advice on what facilities to look at- they are not interested in looking very far from their home. I told them both I would work on this tomorrow morning- to get recent PT/OT/ST evals from [facility]- as 1730 on a afternoon I cannot do much. I also discussed about bed availability and the upcoming holiday as limiting factors. They verbalized understanding. I will be following up tomorrow. Any other ideas/recs? * Telephone Encounter - Sadie Madera LPN - 04/05/2024 4:43 PM EST Dany with speech therapy calling, Dany is with Onur and spouse. livestock farmworker consult has been placed. [facility]. Patient has had physical therapy 1/3 cancellations [...] EST Laboratory Lab Mobile Phlebotomy [facility] 2520 [place] [address] Mvmg, Gml Mobile Home Draw [address] [employer] [place] [address] 04/17/2024 2:20 PM EST Office Visit Family Practice 65 [facility] [place] [address] [place] [address] Apolinar Wayne, [address] [place] [address] 04/17/2024 3:30 PM EST Pharmacy Pharmacy Hematology Oncology [facility] [address] [place] [address] [facility] Hem/Onc [address] [place] [address] 04/19/2024 10:30 AM EST Imaging Radiology [facility] 1st [facility] [place] [address] [place] [phone] 04/23/2024 7:10 AM EST Laboratory Lab Mobile Phlebotomy [facility] [address] [place] [address] Mvmg, Gml Mobile Home Draw 2520 [facility] [place] [address] 04/26/2024 9:00 AM EST Office Visit Hematology/Oncology [facility] 200 [facility] [place] [phone] Fernando Solo MD 200 [facility] [address] 04/27/2024 2:30 PM EST Office Visit Family Practice [address] [place] [address] 293 [place] [address] College, Pharmacist [address] [place] [address] 04/27/2024 3:00 PM EST Office Visit Family Practice [address] [place] [address], [place] [address] Apolinar Wayne, 293 [place] [address] 04/30/2024 7:10 AM EST Laboratory Lab Mobile Phlebotomy [facility] [address] [place] [address] Mvmg, Gml Mobile Home Draw 2520 [facility] [place] [address] 05/07/2024 7:10 AM EST Laboratory Lab Mobile Phlebotomy [facility] [address] [place] [address] Mvmg, Gml Mobile Home Draw 25[address] [facility] [place] [address] 05/14/2024 7:10 AM EST Laboratory Lab Mobile Phlebotomy [facility] [address] [facility] [place], [place] [address] Mvmg, Gml Mobile Home Draw [address] [facility] [place], [place] [address] 05/21/2024 7:10 AM EST Laboratory Lab Mobile Phlebotomy [facility] [address] [facility] [place], [place] [address] Mvmg, Gml Mobile Home Draw 25[address] [facility] [place], [place] [address] 05/21/2024 2:30 PM EST Office Visit UrologGarima Garcia [address] [facility] [address] [place] [address] Michelle Rodriguez PA-C [address] [place] [address] 05/28/2024 7:10 AM EDT Laboratory Lab Mobile Phlebotomy [facility] [address] [place], [place] [address] Mvmg, Gml Mobile Home Draw 2520 [facility] [place], [place] [address] 06/04/2024 7:10 AM EDT Laboratory Lab Mobile Phlebotomy [facility] [address] [facility] [place], [place] [address] Mvmg, Gml Mobile Home Draw [address] [employer] [place], [place] [address] 06/11/2024 7:10 AM EDT Laboratory Lab Mobile Phlebotomy [facility] [address] [facility] [place], [place] [address] Mvmg, Gml Mobile Home Draw 25[address] [facility] [place], [place] [address] 06/18/2024 7:10 AM EDT Laboratory Lab Mobile Phlebotomy [facility] [address] [facility] [place], [place] [address] Mvmg, Gml Mobile Home Draw 25[address] [facility] [place], [place] [address] Scheduled Procedures Name Priority Associated Diagnoses Date/Ti [...] this encounter Medical Devices Implanted Type Area Barrel Planer Device Identifier Shelf Expiration Date Model / Serial / Lot Graft Lyoplant 5.0x5.0cm 2x2 - [id number] Implanted:Qty : 1 on 06/24/2020 by Madi Kaur MD at [place] [facility] Right: Head B ALICEA : AESCULAP 11/18/2024 [id number] / / [id number] Graft Lyoplant 5.0x5.0cm 2x2 - [id number] Implanted:Qty : 1 on 06/24/2020 by Madi Kaur MD at OR [facility] B ALICEA : AESCULAP [id number] 11/18/2024 [id number] / [id number] / [id number] Graft Lyoplant 5.0x5.0cm 2x2 - [id number] Implanted:Qty : 1 on 06/24/2020 by Madi Kaur MD at [place] [facility] Right: Head B ALICEA : AESCULAP 06/24/2020 [id number] / / [id number] Graft Lyoplant 5.0x5.0cm 2x2 - [id number] Implanted:Qty : 1 on 06/24/2020 by Madi Kaur MD at OR [facility] B ALICEA : AESCULAP [id number] 11/18/2024 [id number] / [id number] / [id number] Plate Ti Lo Pro Str 2h 421.502 - [id number] Implanted:Qty : 2 on 06/24/2020 by Madi Kaur MD at [place] [facility] Right: Head SYNTHES MAXILLOFACIAL 421.502 / / Plate Bx Ti [id number] 4h 421.521 - [id number] Implanted:Qty : 1 on 06/24/2020 by Madi Kaur MD at [place] [facility] Right: Head SYNTHES MAXILLOFACIAL 421.521 / / Screw Ti Lo Pro Sd 4mm 400.834 - [id number] Implanted:Qty : 7 on 06/24/2020 by Madi Kaur MD at [place] [facility] Right: Head SYNTHES MAXILLOFACIAL 400.834 [...] on File Name Relationship Healthcare Agent [facility] Communication Aimee Lam Spouse Health Care Agent Care Teams Joinery Factory Worker Relationship Specialty Start Date End Date Apolinar Wayne DO 293 [place] [address] PCP - General Internal Medicine 11/15/23 documented as of this encounter
--- OUTSIDE RECORDS SUMMARY | 2024-04-27 23:14 | External Medical Summary | Summary of Care ---
Author Name Unknown Organization [facility] Address [address] [place] [address] Phone [phone] Care Team Providers Care Newspaper Delivery Driver Name Role Phone Apolinar Wayne DO Primary Care Provider [phone] Reason for Visit * Reason Onset Date Comments Other 04/19/202404/19 Encounter Details Date Type Department Care Team (Late st Contact Info) Description 04/19/2024 Telephone Family Practice [address], [place] [address] [place] [address] Apolinar Wayne DO [address] [place] [address] Other (04/19) Allergies Active Allergy [...] major depressive disorder without prior episode (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 (Household - for ages [...] 04/19/2024 1:05 PM EST Follow up with [facility] regarding son, Ulysses's, request for PT for patient while he is on hospice. CM called [facility] and spoke to consulting solution manager-- per their records: furnace worker was there today. RN and aide were at the home yesterday; power line installer to be at house later today. PT is not covered by [facility] per management there; if they want to pursue that via another home health agency, it would be all out of pocket. In addition, it would border along the lines of seeking aggressive therapy and would potentially get patient let go from hospice services. Called Ulysses--advised what [facility] said; stated out of pocket expenses are [...] frustrated, but said he will be contacting [facility] and get an idea of what next [...] physical therapy. He can be reached @ [phone]. documented in this encounter Plan of Treatment Upcoming Encounters Date Type Department Care Team (Late st Contact Info) Description 04/26/2024 9:00 AM EST Office Visit Hematology/Oncology [facility] [address] [place] [phone] Fernando Solo MD [address] [place] [address] 04/27/2024 2:30 PM EST Office Visit Family Practice [address], [place] 293 [place] [address] College, Pharmacist [address] [facility] 293 [place] [address] 04/27/2024 3:00 PM EST [facility] 293 [place] [address] Apolinar Wayne, 293 [place] [address] 05/21/2024 2:30 PM EST Office Visit Urology Garima Meyers [address] [place] [address] [place] [address] Michelle Rodriguez PA-C [address] [place] [address] Scheduled Procedures Name Priority Associated Diagnoses Date/Ti [...] this encounter Medical Devices Implanted Type Area Microbiology Coordinator Device Identifier Shelf Expiration Date Model / Serial / Lot Graft Lyoplant 5.0x5.0cm 2x2 - [id number] Implanted:Qty : 1 on 06/24/2020 by Madi Kaur MD [place] [facility] [place]: Head B ALICEA : AESCULAP 11/18/2024 [id number] / / [id number] Graft Lyoplant 5.0x5.0cm 2x2 - [id number] Implanted:Qty : 1 on 06/24/2020 by Madi Kaur MD [place] [facility] B ALICEA : AESCULAP [id number] 11/18/2024 [id number] / [id number] / [id number] Graft Lyoplant 5.0x5.0cm 2x2 - [id number] Implanted:Qty : 1 on 06/24/2020 by Madi Kaur MD [place] [facility] [place]: Head B ALICEA : AESCULAP 06/24/2020 [id number] / / [id number] Graft Lyoplant 5.0x5.0cm 2x2 - [id number] Implanted:Qty : 1 on 06/24/2020 by Madi Kaur MD [place] [facility] B ALICEA : AESCULAP [id number] 11/18/2024 [id number] / [id number] / [id number] Plate Ti Lo Pro Str 2h 421.502 - [id number] Implanted:Qty : 2 on 06/24/2020 by Madi Kaur MD [place] [facility] Right: Head SYNTHES MAXILLOFACIAL 421.502 / / Plate Bx Ti [id number] 4h 421.521 - [id number] Implanted:Qty : 1 on 06/24/2020 by Madi Kaur MD [place] [facility] Right: Head SYNTHES MAXILLOFACIAL 421.521 / / Screw Ti Lo Pro Sd 4mm 400.834 - [id number] Implanted:Qty : 7 on 06/24/2020 by Madi Kaur MD at [place] [facility] Right: Head SYNTHES MAXILLOFACIAL 400.834 / / [...] Agents on File Name Relationship Healthcare Agent [facility] Communication Aimee Lam Spouse Health Care Agent Care Teams Newspaper Delivery Driver Relationship Specialty Start Date End Date Apolinar Wayne DO [address] [place] [place] [address] PCP - General Internal Medicine 11/15/23 documented as of this encounter
--- OUTSIDE RECORDS SUMMARY | 2024-04-27 23:14 | External Medical Summary | Summary of Care ---
Author Name Unknown Organization [facility] Address [address] [place] [address] Phone [phone] Care Team Providers Care Psych Np Name Role Phone Apolinar Wayne DO Primary Care Provider [phone] Reason for Visit * Reason Onset Date Comments FYI 04/10/2024 Encounter Details Date Type Department Care Team (Late st Contact Info) Description 04/10/2024 Telephone Family Practice [address], [place] [address] [place] [address] Apolinar Wayne DO [address] [place], [place] [id number] FYI Allergies Active Allergy Reactions Criticality Noted [...] goal of less than 7.0% ([facility]) Use as directed every 14 days [...] depressive disorder without prior episode ([facility]),PTSD (post-traumatic stress disorder) Take 1 Tablet [...] mRNA, LNP-s, No Pre serve, 2-Dose Series (ProNerve) 03/10/2021,06/07/2020,05/17/2020 COVID-19, LNP-s, No Preserve , Chandler-sucrose, Ages 12+ (Pfizer) 11/17/2021 COVID-19, MRNA-LNP, PF, 30 M CG/0.3 mL, 12 YRS AND ABOVE, IM ([facility]) 01/17/2024,03/08/2023 Covid-19, Mrna, Lnp-s, Pf, B ivalent, [...] 10:41 AM EST Patient is currently admitted; Mukund, DUSTIN CM left me a VM yesterday and said (ER ) Dr. Solo was made aware of all the concerns with patient staying at home that were from [facility]. This CM will continue to follow. Not many notes available this AM on plan of care in [facility]. * Telephone Encounter - Fernando Solo MD - 04/11/2024 8:59 AM EST This is for ER physician Dr. Liliana Solo. He is admitted at [facility]. * Telephone Encounter - Jefferson Alvarado RN - 04/11/2024 8:[address] Solo- did you receive a call from [facility]? Pt is admitted. MTM- fyi patient currently admitted. * Telephone Encounter - Rain Yañez RN - 04/10/2024 3:11 PM EST I spoke to Zelalem Nichols, OT and clinical supervisor steno pool at [facility] Direct phone #: [phone] He remains concerned pt is at increased risk for falls if he continues to be care for at home by the ; I updated Zelalem that patient is currently at [facility] ER due to a fall and hitting his head. Zelalem states a couple of his employees mentioned Aimee not being able to care for patient properlyat home. This CM called and spoke to VITA Duval at [facility] ER again. Updated her with OT's concerns and that hehas been in the home and his staff who has been in the home has concerns. Told her I have been working in the OP setting to try and get him placed, but if we can get him placed while he is at [facility], it would be best and potentially prevent [...] Bynum OSA - 04/10/2024 2:35 PM EST Zelalem from would like to speak to nurse about recent fall. documented in this encounter Plan of Treatment Upcoming Encounters Date Type Department Care Team (Late st Contact Info) Description 04/16/2024 7:10 AM EST Laboratory Lab Mobile Phlebotomy [facility] [address] [place] [address] Mvmg, l Mobile Home Draw [address] [employer] [facility], [place] [address] 04/17/2024 2:20 PM EST Office Visit Family Practice [address], [place] [address] [place] [address] Apolinar Wayne, 293 [place] [address] 04/17/2024 3:30 PM EST Pharmacy Pharmacy Hematology Oncology [place] [address] [place] [address] [facility] Hem/Onc [address] [place] [address] 04/19/2024 10:30 AM EST Imaging Radiology [address], [place] [address] [place] [phone] 04/23/2024 7:10 AM EST Laboratory Lab Mobile Phlebotomy [facility] [address] [place], [place] [address] Mvmg, Gml Mobile Home Draw [address] [place], [place] [address] 04/26/2024 9:00 AM EST Office Visit Hematology/Oncology [facility] [address] [facility] [address] [place], [place] [address] Fernando Solo MD 200 [facility] [place], [place] [address] 04/27/2024 3:00 PM EST Office Visit Family Practice [address] [place] [address] 293 [facility] [place] [address] Apolinar Wayne DO 293 [facility], [place] [address] 04/30/2024 7:10 AM EST Laboratory Lab Mobile Phlebotomy [facility] [address] [place], [place] [address] Mvmg, Gml Mobile Home Draw [address] [facility] [place], [place] [address] 05/07/2024 7:10 AM EST Laboratory Lab Mobile Phlebotomy [facility] [address] [place], [place] [address] Mvmg, Gml Mobile Home Draw [address] [facility] [place], [place] [address] 05/14/2024 7:10 AM EST Laboratory Lab Mobile Phlebotomy [facility] [address] [place], [place] [address] Mvmg, Gml Mobile Home Draw [address] [facility] [place], [place] [address] 05/21/2024 7:10 AM EST Laboratory Lab Mobile Phlebotomy [facility] [address] [place], [place] [address] Mvmg, Gml Mobile Home Draw [address] [place] [place] [address] 05/21/2024 2:30 PM EST Office Visit Urology Gar[place] Meyers [address] [place] [address] Michelle Rodriguez PA-C [address] [place] [address] 05/28/2024 7:10 AM EDT Laboratory Lab Mobile Phlebotomy [facility] [address] [place], [place] [address] Mvmg, Gml Mobile Home Draw [address] [place], [place] [address] 06/04/2024 7:10 AM EDT Laboratory Lab Mobile Phlebotomy [facility] [address] [place], [place] [address] Mvmg, Gml Mobile Home Draw [address] [place], [place] [address] 06/11/2024 7:10 AM EDT Laboratory Lab Mobile Phlebotomy [facility] [address] [place] [place] [address] Mvmg, Gml Mobile Home Draw [address] [place] [address] 06/18/2024 7:10 AM EDT Laboratory Lab Mobile Phlebotomy [facility] [address] [place], [place] [address] Mvmg, Gml Mobile Home Draw [address] [place], [place] [address] Scheduled Procedures Name Priority Associated Diagnoses Date/Ti [...] this encounter Medical Devices Implanted Type Area Psychiatric Lpn Device Identifier Shelf Expiration Date Model / Serial / Lot Graft Lyoplant 5.0x5.0cm 2x2 - [id number] Implanted:Qty : 1 [place] 06/24/2020 [place] [facility] [place] Head B ALICEA : AESCULAP 11/18/2024 [id number] / / [id number] Graft Lyoplant 5.0x5.0cm 2x2 - [id number] Implanted:Qty : 1 on 06/24/2020 [place] Mad[place]aur [place] [facility] [place] ALICEA : AESCULAP [id number] 11/18/2024 [id number] / [id number] / [id number] Graft Lyoplant 5.0x5.0cm 2x2 - [id number] Implanted:Qty : 1 on 06/24/2020 [place] Mad[place] [facility] [place] Head B ALICEA : AESCULAP 06/24/2020 [id number] / / [id number] Graft Lyoplant 5.0x5.0cm 2x2 - [id number] Implanted:Qty : 1 on 06/24/2020 [place] Mad[place]aur [place] [facility] [place] B ALICEA : AESCULAP [id number] 11/18/2024 [id number] / [id number] / [id number] Plate Ti Lo Pro Str 2h 421.502 - [id number] Implanted:Qty : 2 on 06/24/2020 [place] Mad[place] [facility] [place]: Head [employer] 421.502 / / Plate Bx Ti [id number] 4h 421.521 - [id number] Implanted:Qty : 1 on 06/24/2020 [place] Mad[place] [facility] [place] Head [employer] 421.521 / / Screw Ti Lo Pro Sd 4mm 400.834 - [id number] Implanted:Qty : 7 on 06/24/2020 by Madi [...] Agents on File Name Relationship Healthcare Agent [facility] Communication Aimee Lam Spouse Health Care Agent Care Teams Psych Np Relationship Specialty Start Date End Date Apolinar Wayne DO 293 [place] [address] PCP - General Internal Medicine 11/15/23 documented as of this encounter
[2024-04-27] MEDS ORDERED: DOCUSATE SODIUM 100 MG CAP PO PRN (23:15)
--- OUTSIDE RECORDS SUMMARY | 2024-04-27 23:15 | External Medical Summary | Summary of Care ---
Author Name Unknown Organization [facility] Address [address] [place] [address] Phone [phone] Care Team Providers Care Stretcher Leveler Operator Name Role Phone Apolinar Wayne DO Primary Care Provider [phone] Reason for Visit * Reason Onset Date Comments FYI 04/10/2024 Encounter Details Date Type Department Care Team (Late st Contact Info) Description 04/10/2024 Telephone Family Practice [address], [place] [address] [place] [address] Apolinar Wayne DO [address] [place], [place] [phone] FYI Allergies Active Allergy Reactions Criticality Noted Date Comments Erythromycin 07/02/1998 GI upset Guaifenesin & Derivatives 03/18/1997 nucofed documented as of this encounter (statuses as of 04/11/2024) Medications BD Pen Needle Altagracia U/F 32G [...] A1c goal of less than 7.0% ([facility]) Use as directed every 14 days [...] major depressive disorder without prior episode ([facility]),PTSD (post-traumatic stress disorder) Take 1 Tablet [...] as of this encounter (statuses as of 04/11/2024) Active Problems Problem Noted Date Diagnosed Date [...] 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 06/27/2018 [facility] (current) use of insulin 10/27/2017 History of [...] as of this encounter (statuses as of 04/11/2024) Resolved Problems Problem Noted Date Diagnosed Date [...] as of this encounter (statuses as of 04/11/2024) Immunizations Name Administration Dates Next Due COVID-19 mRNA, LNP-s, No Pre serve, 2-Dose Series (Figma) 03/10/2021,06/07/2020,05/17/2020 COVID-19, LNP-s, No Preserve , Chandler-sucrose, Ages 12+ (Pfizer) 11/17/2021 COVID-19, MRNA-LNP, PF, 30 M CG/0.3 mL, 12 YRS AND ABOVE, IM ([facility]) 01/17/2024,03/08/2023 Covid-19, Mrna, Lnp-s, Pf, B [...] patient staying at home that were from [facility]. This CM will continue to follow. Not many notes available this AM on plan of care in [facility]. * Telephone Encounter - Fernando Solo MD - 04/11/2024 8:59 AM EST This is for ER physician Dr. Liliana Solo. He is admitted at [facility]. * Telephone Encounter - Jefferson Alvarado RN - 04/11/2024 8:[address] Solo- did you receive a call from [facility]? Pt is admitted. MTM- fyi patient currently admitted. * Telephone Encounter - Rain Yañez RN - 04/10/2024 3:11 PM EST I spoke to Zelalem Nichols, OT and clinical slitting and shipping supervisor at [facility] Direct phone #: [phone] He remains concerned pt is at increased risk for falls if he continues to be care for at home by the ; I updated Zelalem that patient is currently at [facility] ER due to a fall and hitting his head. Zelalem states a couple of his employees mentioned Aimee not being able to care for patient properlyat home. This CM called and spoke to VITA Duval at [facility] ER again. Updated her with OT's concerns and that hehas been in the home and his staff who has been in the home has concerns. Told her I have been working in the OP setting to try and get him placed, but if we can get him placed while he is at [facility], it would be best and potentially prevent [...] [facility] [address] [place] [address] [facility] Hem/Onc [address] [place] [address] Glioblastoma (HCC)* 04/16/2024 7:10 AM EST Laboratory Lab Mobile Phlebotomy [facility] [address] [employer] [place], [place] [address] Mvmg, l Mobile Home Draw [address] [employer] [place], [place] [address] 04/17/2024 2:20 PM EST Office Visit Family Practice [address] [facility], [place] 293 [facility] [place] [address] Apolinar Wayne DO 293 [facility] [place] [address] 04/17/2024 3:30 PM EST Pharmacy Pharmacy Hematology Oncology [facility] [address] [facility], [place] [address] [facility] Hem/Onc [address] [facility], [place] [address] 04/19/2024 10:30 AM EST Imaging Radiology [address] [place] [phone] 04/23/2024 7:10 AM EST Laboratory Lab Mobile Phlebotomy [facility] [address] [place] [address] Mvmg, Gml Mobile Home Draw [address] [place] [address] 04/26/2024 9:00 AM EST Office Visit Hematology/Oncology [facility] [place] 200 [facility] [place] [phone] Fernando Solo MD 200 [facility] [address] 04/27/2024 3:00 PM EST Office Visit Family Practice [address] [place] [address] 293 [facility], [place] [address] Apolinar Wayne DO 293 [facility], [place] [address] 04/30/2024 7:10 AM EST Laboratory Lab Mobile Phlebotomy [facility] [address] [place] [address] Mvmg, Gml Mobile Home Draw [address] [place], [place] [address] 05/07/2024 7:10 AM EST Laboratory Lab Mobile Phlebotomy [facility] [address] [place] [address] Mvmg, Gml Mobile Home Draw [address] [place] [address] 05/14/2024 7:10 AM EST Laboratory Lab Mobile Phlebotomy [facility] [address] [place], [place] [address] Mvmg, Gml Mobile Home Draw [address] [employer] [place], [place] [address] 05/21/2024 7:10 AM EST Laboratory Lab Mobile Phlebotomy [facility] [address] [place], [place] [address] Mvmg, Gml Mobile Home Draw [address] [employer] [place], [place] [address] 05/21/2024 2:30 PM EST Office Visit Urology Garima Meyers [address] [place] [address] Michelle Rodriguez PA-C [address] [place] [address] 05/28/2024 7:10 AM EDT Laboratory Lab Mobile Phlebotomy [facility] [address] [place], [place] [address] Mvmg, Gml Mobile Home Draw [address] [employer] [place], [place] [address] 06/04/2024 7:10 AM EDT Laboratory Lab Mobile Phlebotomy [facility] [address] [employer] [place], [place] [address] Mvmg, Gml Mobile Home Draw [address] [employer] [place], [place] [address] 06/11/2024 7:10 AM EDT Laboratory Lab Mobile Phlebotomy [facility] [address] [place], [place] [address] Mvmg, Gml Mobile Home Draw [address] [place] [address] 06/18/2024 7:10 AM EDT Laboratory Lab Mobile Phlebotomy [facility] [address] [place], [place] [address] Mvmg, Gml Mobile Home Draw [address] [employer] [place], [place] [address] Scheduled Procedures Name Priority Associated Diagnoses Date/Ti [...] this encounter Medical Devices Implanted Type Area Physician Assistant Primary Care Device Identifier Shelf Expiration Date Model / Serial / Lot Graft Lyoplant 5.0x5.0cm 2x2 - [id number] Implanted:Qty : 1 on 06/24/2020 [place] [facility] [place] B ALICEA : AESCULAP 11/18/2024 [id number] / / [id number] Graft Lyoplant 5.0x5.0cm 2x2 - [id number] Implanted:Qty : 1 on 06/24/2020 by Madi Kaur [place] [facility] [place] ALICEA : AESCULAP [id number] 11/18/2024 [id number] / [id number] / [id number] Graft Lyoplant 5.0x5.0cm 2x2 - [id number] Implanted:Qty : 1 on 06/24/2020 by Madi [place] [facility] [place] Head B ALICEA : AESCULAP 06/24/2020 [id number] / / [id number] Graft Lyoplant 5.0x5.0cm 2x2 - [id number] Implanted:Qty : 1 on 06/24/2020 by Madi Kaur [place] [facility] [place] B ALICEA : AESCULAP [id number] 11/18/2024 [id number] / [id number] / [id number] Plate Ti Lo Pro Str 2h 421.502 - [id number] Implanted:Qty : 2 on 06/24/2020 by Madi [place] [facility] [place] Head [employer]ES [employer] 421.502 / / Plate Bx Ti [id number] 4h 421.521 - [id number] Implanted:Qty : 1 on 06/24/2020 by Madi [place] [facility] [place] Head [employer] 421.521 / / Screw Ti Lo Pro Sd 4mm 400.834 - [id number] Implanted:Qty : 7 on 06/24/2020 by Madi Kaur MD at OR [facility] Right: Head [employer] 400.834 / / [...] Agents on File Name Relationship Healthcare Agent [facility] Communication Aimee Lam Spouse Health Care Agent Care Teams Stretcher Leveler Operator Relationship Specialty Start Date End Date Apolinar Wayne DO 293 [facility] [place] [address] PCP - General Internal Medicine 11/15/23 documented as of this encounter
--- OUTSIDE RECORDS SUMMARY | 2024-04-27 23:15 | External Medical Summary | Summary of Care ---
Author Name Unknown Organization [facility] Address [address] [place] [address] Phone [phone] Care Team Providers Care Conveyor System Operator Name Role Phone Apolinar Wayne DO Primary Care Provider [phone] Encounter Details Date Type Department Care Team (Late st Contact Info) Description 04/10/2024 Telephone Family Practice [address], [place] [address] [place] [address] Apolinar Wayne DO 293 [place] [address] Allergies Active Allergy Reactions Criticality [...] A1c goal of less than 7.0% ([facility]) Use as directed every 14 days [...] major depressive disorder without prior episode ([facility]),PTSD (post-traumatic stress disorder) Take 1 Tablet [...] mRNA, LNP-s, No Pre serve, 2-Dose Series (Get Together) 03/10/2021,06/07/2020,05/17/2020 COVID-19, LNP-s, No Preserve , Chandler-sucrose, [...] Telephone Encounter - Apolinar Wayne DO - 04/11/2024 3:40 PM EST Agree with ED evaluation Patient admitted to [facility] * Telephone Encounter - Sadie Madera LPN - 04/10/2024 12:18 PM EST Patient fell, unsure what caused fall. Did hit back of his head pretty hard per . Called ems. Patient is able to talk and did not loose consciousness documented in this encounter Plan of Treatment Upcoming Encounters Date Type Department Care Team (Late st Contact Info) Description 04/11/2024 3:45 PM EST Pharmacy Pharmacy Hematology Oncology [facility], [place] [address] [place] [address] [facility] [place] Hem/Onc [facility] [place] [address] Glioblastoma (HCC)* 04/16/2024 7:10 AM EST Laboratory Lab Mobile Phlebotomy [facility] [address] [place] [address] Mvmg, Gml Mobile Home Draw [address] [place] [address] 04/17/2024 2:20 PM EST Office Visit Family Practice 65 [facility] 293 [place] [address] Apolinar Wayne, 293 [facility], [place] [address] 04/17/2024 3:30 PM EST Pharmacy Pharmacy Hematology Oncology [place] [address] [place] [address] [facility] Hem/Onc [facility] [place] [address] 04/19/2024 10:30 AM EST Imaging Radiology [address] [place] [phone] 04/23/2024 7:10 AM EST Laboratory Lab Mobile Phlebotomy M[facility] [address] [place] [address] Mvmg, Gml Mobile Home Draw [address] [place] [address] 04/26/2024 9:00 AM EST Office Visit Hematology/Oncology [facility] [place] [address] [place] [phone] Fernando Solo MD 200 [place] [address] 04/27/2024 3:00 PM EST Office Visit Family Practice 65 [facility], [place] 293 [place] [address] Apolinar Wayne, 293 [place] [address] 04/30/2024 7:10 AM EST Laboratory Lab Mobile Phlebotomy M[facility] [address] [place] [address] Mvmg, Gml Mobile Home Draw [address] [place] [address] 05/07/2024 7:10 AM EST Laboratory Lab Mobile Phlebotomy MVM[facility] [address] [place] [address] Mvmg, Gml Mobile Home Draw [email or web address] [address] 05/14/2024 7:10 AM EST Laboratory Lab Mobile Phlebotomy M[facility] [address] [place] [address] Mvmg, Gml Mobile Home Draw [email or web address] [address] 05/21/2024 7:10 AM EST Laboratory Lab Mobile Phlebotomy M[facility] [address] [place] [address] Mvmg, Gml Mobile Home Draw [email or web address] [address] 05/21/2024 2:30 PM EST Office Visit Urology Garima Meyers [address] [place] [address] Michelle Rodriguez PA-C [address] [place] [address] 05/28/2024 7:10 AM EDT Laboratory Lab Mobile Phlebotomy M[facility] [address] [place] [address] Mvmg, Gml Mobile Home Draw [address] [place] [address] 06/04/2024 7:10 AM EDT Laboratory Lab Mobile Phlebotomy M[facility] [address] [place] [address] Mvmg, Gml Mobile Home Draw [address] [place] [address] 06/11/2024 7:10 AM EDT Laboratory Lab Mobile Phlebotomy MVM[facility] [address] [place] [address] Mvmg, Gml Mobile Home Draw [address] [place] [address] 06/18/2024 7:10 AM EDT Laboratory Lab Mobile Phlebotomy M[facility] [address] [place] [address] Mvmg, Gml Mobile Home Draw [address] [place] [address] Scheduled Procedures Name Priority Associated Diagnoses Date/Ti [...] this encounter Medical Devices Implanted Type Area Visual Education Director Device Identifier Shelf Expiration Date Model / Serial / Lot Graft Lyoplant 5.0x5.0cm 2x2 - [id number] Implanted:Qty : 1 on 06/24/2020 by Madi Kaur MD at [place] [facility] [place] Right: Head B ALICEA : AESCULAP 11/18/2024 [id number] / / [id number] Graft Lyoplant 5.0x5.0cm 2x2 - [id number] Implanted:Qty : 1 on 06/24/2020 by Madi Kaur MD at [place] [facility] [place] B ALICEA : AESCULAP [id number] 11/18/2024 [id number] / [id number] / [id number] Graft Lyoplant 5.0x5.0cm 2x2 - [id number] Implanted:Qty : 1 on 06/24/2020 by Madi Kaur MD at [place] [facility] [place] Right: Head B ALICEA : AESCULAP 06/24/2020 [id number] / / [id number] Graft Lyoplant 5.0x5.0cm 2x2 - [id number] Implanted:Qty : 1 on 06/24/2020 by Madi Kaur MD at [place] [facility] [place] B ALICEA : AESCULAP [id number] 11/18/2024 [id number] / [id number] / [id number] Plate Ti Lo Pro Str 2h 421.502 - [id number] Implanted:Qty : 2 on 06/24/2020 by Madi Kaur MD at [place] [facility] [place] Right: Head SYNTHES MAXILLOF[employer]IAL 421.502 / / Plate Bx Ti [id number] 4h 421.521 - [id number] Implanted:Qty : 1 on 06/24/2020 by Madi Kaur MD at [place] [facility] [place] Right: Head SYNTHES MAXILLOFACIAL 421.521 / / Screw Ti Lo Pro Sd 4mm 400.834 - [id number] Implanted:Qty : 7 on 06/24/2020 by Madi Kaur MD at [place] [facility] [place] Right: Head SYNTHES [...] Lam Spouse Health Care Agent Care Teams Conveyor System Operator Relationship Specialty Start Date End Date Apolinar Wayne DO [address] [place] [place] [address] PCP - General Internal Medicine 11/15/23 documented as of this encounter
--- OUTSIDE RECORDS SUMMARY | 2024-04-27 23:15 | External Medical Summary | Summary of Care ---
Author Name Unknown Organization [facility] Address [address] [place] [address] Phone [phone] Care Team Providers Care Armature Connector Name Role Phone Apolinar Wayne DO Primary Care Provider [phone] Reason for Visit * Reason Comments Medication Management Encounter Details Date Type Department Care Team (Late st Contact Info) Description 04/11/2024 3:45 PM [facility] Pharmacy Pharmacy Hematology Oncology [facility] [address], [place] [id number] [facility], [facility] Hem/Onc [address], [place] [phone] Glioblastoma (HCC)* Allergies Active Allergy Reactions Criticality [...] mRNA, LNP-s, No Pre serve, 2-Dose Series (nanoMR) 03/10/2021,06/07/2020,05/17/2020 COVID-19, LNP-s, No Preserve , Chandler-sucrose, Ages 12+ (Pfizer) 11/17/2021 COVID-19, MRNA-LNP, PF, 30 M CG/0.3 mL, 12 YRS AND ABOVE, IM ([facility]) 01/17/2024,03/08/2023 Covid-19, Mrna, Lnp-s, Pf, B ivalent, [...] this encounter Progress Notes * Sharon Perez, [facility] - 04/11/2024 9:59 AM EST MEDICATION THERAPY MANAGEMENT LOMUSTINE TREATMENT PROGRESS NOTE Denis Lam [id number] Patient Phone Numbers : Aimee Communication: Chart review Treatment: Medication: Lomustine (Gleostine, CCNU) Indication/Staging/Diagnosis Code: Glioblastoma, WHO Grade IV, IDH WT, MGMT methyldated, C71.9 Dose Basis: 90 mg/m2 - 90 mg/m2 * 2.01 m2 (04/03/24) = 180 mg Dose: 160 mg (capped) PO once every 6 weeks Administration: empty stomach at bedtime Start Date: TBD Primary Content Publisher/Oncologist: Dr. Ashu Solo Supportive Care Meds: Ondansetron Docusate Prophylactic Meds: PJP ppx for ALC < 0.5 Relevant Chronic Medications: Category Medications Pertinent Notes Antihypertensives Amlodipine 10 mg PO daily Carvedilol 3.125 mg PO BID Losartan 100 mg PO daily Antidiabetic Empagliflozin 25 mg PO daily Anticoagulation Rivaroxaban 20 mg PO daily Cycle Dates C1 04/09 C2 TBD Treatment History: Resection 06/24/20 TMZ+RT 08/21-10/02/20 Temodar x 33 cycles 11/17/20-11/30/23 Assessment and plan: Per 04/10 TE, Pt took first dose of lomustine on 04/09. Now admitted at [facility] after fall Will f/u after discharge Follow up: 04/16 GML; 04/17 MT Sharon Perez, PharmD, BCOP Ambulatory Clinical Pharmacist | Oral Chemotherapy Clinic [facility] 04/11/2024, 10:01 AM Monitoring Parameters: Estimated CrCl Serum creatinine: [...] EST Laboratory Lab Mobile Phlebotomy [facility] [address] [place] [address] Mvmg, Gml Mobile Home Draw [address] [place] [address] 04/17/2024 2:20 PM EST Office Visit Family Practice [address], [place] 293 [facility] [place] [phone] Apolinar Wayne DO 293 [facility], [place] [address] 04/17/2024 3:30 PM EST Pharmacy Pharmacy Hematology Oncology [facility] [place] [address] [facility], [place] [address] [facility], [facility] Hem/Onc [address] [place] [address] 04/19/2024 10:30 AM EST Imaging Radiology [address] [place] [phone] 04/23/2024 7:10 AM EST Laboratory Lab Mobile Phlebotomy [facility] [address] [place] [address] Mvmg, Gml Mobile Home Draw [address] [place] [address] 04/26/2024 9:00 AM EST Office Visit Hematology/Oncology [facility] 200 [facility] [place] [address] Fernando Solo MD 200 [facility] [place], [place] [address] 04/27/2024 3:00 PM EST Office Visit Family Practice [address] [place] [address] 293 [facility] [place] [address] Apolinar Wayne DO 293 [place] [address] 04/30/2024 7:10 AM EST Laboratory Lab Mobile Phlebotomy [facility] [address] [place], [place] [address] Mvmg, Gml Mobile Home Draw [address] [place] [address] 05/07/2024 7:10 AM EST Laboratory Lab Mobile Phlebotomy [facility] [address] [place] [address] Mvmg, Gml Mobile Home Draw [address] [place] [address] 05/14/2024 7:10 AM EST Laboratory Lab Mobile Phlebotomy [facility] [address] [employer] [place], [place] [address] Mvmg, Gml Mobile Home Draw [address] [place], [place] [address] 05/21/2024 7:10 AM EST Laboratory Lab Mobile Phlebotomy [facility] [address] [place], [place] [address] Mvmg, Gml Mobile Home Draw [address] [place], [place] [address] 05/21/2024 2:30 PM EST Office Visit Urology Garima Meyers [address] [place] [address] Michelle Rodriguez PA-C [address] [place] [address] 05/28/2024 7:10 AM EDT Laboratory Lab Mobile Phlebotomy [facility] [address] [place], [place] [address] Mvmg, Gml Mobile Home Draw [address] [place], [place] [address] 06/04/2024 7:10 AM EDT Laboratory Lab Mobile Phlebotomy [facility] [address] [place], [place] [address] Mvmg, Gml Mobile Home Draw [address] [place], [place] [address] 06/11/2024 7:10 AM EDT Laboratory Lab Mobile Phlebotomy [facility] [address] [place] [address] Mvmg, Gml Mobile Home Draw [address] [place] [address] 06/18/2024 7:10 AM EDT Laboratory Lab Mobile Phlebotomy [facility] [address] [place], [place] [address] Mvmg, Gml Mobile Home Draw [address] [place] [address] Scheduled Procedures Name Priority Associated Diagnoses Date/Ti [...] this encounter Medical Devices Implanted Type Area Posting Clerk Device Identifier Shelf Expiration Date Model / Serial / Lot Graft Lyoplant 5.0x5.0cm 2x2 - [id number] Implanted:Qty : 1 on 06/24/2020 by Madi Kaur MD at [place] [facility] Right: Head B ALICEA : AESCULAP 11/18/2024 [id number] / / [id number] Graft Lyoplant 5.0x5.0cm 2x2 - [id number] Implanted:Qty : 1 on 06/24/2020 by Madi Kaur MD at OR [facility] B ALICEA : AESCULAP [id number] 11/18/2024 [id number] / [id number] / [id number] Graft Lyoplant 5.0x5.0cm 2x2 - [id number] Implanted:Qty : 1 on 06/24/2020 by Madi Kaur MD at OR [facility] Right: Head B ALICEA : AESCULAP 06/24/2020 [id number] / / [id number] Graft Lyoplant 5.0x5.0cm 2x2 - [id number] Implanted:Qty : 1 on 06/24/2020 by Madi Kaur MD at OR [facility] B ALICEA : AESCULAP [id number] 11/18/2024 [id number] / [id number] / [id number] Plate Ti Lo Pro Str 2h 421.502 - [id number] Implanted:Qty : 2 on 06/24/2020 by Madi Kaur MD at OR [facility] Right: Head SYNTHES MAXILLOFACIAL 421.502 / / Plate Bx Ti [id number] 4h 421.521 - [id number] Implanted:Qty : 1 on 06/24/2020 by Madi Kaur MD at OR [facility] Right: Head SYNTHES MAXILLOFACIAL 421.521 / / Screw Ti Lo Pro Sd 4mm 400.834 - [id number] Implanted:Qty : 7 on 06/24/2020 by Madi [...] Agents on File Name Relationship [facility] Aimee Lam Spouse Health Care Agent Care Teams Armature Connector Relationship Specialty Start Date End Date Apolinar Wayne DO 293 [place] [address] PCP - General Internal Medicine 11/15/23 documented as of this encounter"
--- OUTSIDE RECORDS SUMMARY | 2024-04-27 23:15 | External Medical Summary | Summary of Care ---
Author Name Unknown Organization [facility] Address [address] [place] [address] Phone [phone] Care Team Providers Care Conservation Specialist Name Role Phone Apolinar Wayne DO Primary Care Provider [phone] Encounter Details Date Type Department Care Team (Late st Contact Info) Description 04/10/2024 Telephone Family Practice [address], [place] [address] [place] [address] Apolinar Wayne DO [address] [place] [address] Allergies Active Allergy Reactions Criticality [...] of less than 7.0% ([facility]) Use as directed every 14 days [...] disorder without prior episode ([facility]),PTSD (post-traumatic stress disorder) Take 1 Tablet [...] 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 06/27/2018 nursing home (current) use of insulin 10/27/2017 History of [...] mRNA, LNP-s, No Pre serve, 2-Dose Series (SentiOne) 03/10/2021,06/07/2020,05/17/2020 COVID-19, LNP-s, No Preserve , Chandler-sucrose, [...] Hematology Oncology [facility] [address] [place] [address] [facility], [facility] Hem/Onc [address] [place] [address] Glioblastoma (HCC)* 04/16/2024 7:10 AM EST Laboratory Lab Mobile Phlebotomy [facility] [address] [facility] [place], [place] [address] Mvmg, Gml Mobile Home Draw [address] [facility] [place] [address] 04/17/2024 2:20 PM EST Office Visit Family Practice 65 [facility] 293 [facility], [place] [phone] Apolinar Wayne, DO 293 [facility] [place] [address] 04/17/2024 3:30 PM EST Pharmacy Pharmacy Hematology Oncology [facility] [address] [place] [address] [facility] Hem/Onc [facility] [place] [address] 04/19/2024 10:30 AM EST Imaging Radiology [facility] 1st [facility] [address] [place] [phone] 04/23/2024 7:10 AM EST Laboratory Lab Mobile Phlebotomy [facility] [address] [place], [place] [address] Mvmg, Gml Mobile Home Draw 25[address] [facility] [place], [place] [address] 04/26/2024 9:00 AM EST Office Visit Hematology/Oncology [facility] [address] [place] [address] [place], [place] [phone] Fernando Solo MD [address] [place], [place] [address] 04/27/2024 3:00 PM EST Office Visit Family Practice 65 [facility] 293 [facility], [place] [phone] Apolinar Wayne, DO 293 [facility], [place] [address] 04/30/2024 7:10 AM EST Laboratory Lab Mobile Phlebotomy [facility] [address] [employer] [place], [place] [address] Mvmg, Gml Mobile Home Draw [address] [employer] [place], [place] [address] 05/07/2024 7:10 AM EST Laboratory Lab Mobile Phlebotomy [facility] [address] [employer] [place], [place] [address] Mvmg, Gml Mobile Home Draw [address] [place] [address] 05/14/2024 7:10 AM EST Laboratory Lab Mobile Phlebotomy [facility] [address] [place], [place] [address] Mvmg, Gml Mobile Home Draw [address] [employer] [place], [place] [address] 05/21/2024 7:10 AM EST Laboratory Lab Mobile Phlebotomy [facility] [address] [employer] [place], [place] [address] Mvmg, Gml Mobile Home Draw [address] [employer] [facility], [place] [address] 05/21/2024 2:30 PM EST Office Visit UrologGarima Garcia [address] [place] [address] [place] [address] Michelle Rodriguez PA-C 27 [place] [address] 05/28/2024 7:10 AM EDT Laboratory Lab Mobile Phlebotomy [facility] [address] [employer] [place], [place] [address] Mvmg, Gml Mobile Home Draw [address] [employer] [facility], [place] [address] 06/04/2024 7:10 AM EDT Laboratory Lab Mobile Phlebotomy [facility] [address] [employer] [place], [place] [address] Mvmg, Gml Mobile Home Draw [address] [employer] [place] [address] 06/11/2024 7:10 AM EDT Laboratory Lab Mobile Phlebotomy [facility] [address] [employer] [place] [address] Mvmg, Gml Mobile Home Draw [address] [employer] [place] [address] 06/18/2024 7:10 AM EDT Laboratory Lab Mobile Phlebotomy [facility] [address] [place] [address] Mvmg, Gml Mobile Home Draw [address] [employer] [place] [address] Scheduled Procedures Name Priority Associated Diagnoses Date/Ti [...] encounter Medical Devices Implanted Type Area Director Of Strategic Sourcing Device Identifier Shelf Expiration Date Model / Serial / Lot Graft Lyoplant 5.0x5.0cm 2x2 - [id number] Implanted:Qty : 1 on 06/24/2020 [place] [facility] [place]: Head B ALICEA : AUTUMNCULACleo 11/18/2024 [id number] / / [id number] Graft Lyoplant 5.0x5.0cm 2x2 - [id number] Implanted:Qty : 1 on 06/24/2020 by Madi Kaur [place] [facility] [place] ALICEA : ARIAN [id number] 11/18/2024 [id number] / [id number] / [id number] Graft Lyoplant 5.0x5.0cm 2x2 - [id number] Implanted:Qty : 1 on 06/24/2020 by Madi Kaur [place] [facility] [place]: Head B ALICEA : AESCULAP 06/24/2020 [id number] / / [id number] Graft Lyoplant 5.0x5.0cm 2x2 - [id number] Implanted:Qty : 1 on 06/24/2020 by Madi Kaur [place] [facility] B ALICEA : AUTUMNCUSHIVANI [id number] 11/18/2024 [id number] / [id number] / [id number] Plate Ti Lo Pro Str 2h 421.502 - [id number] Implanted:Qty : 2 on 06/24/2020 by Madi [place]aur [place] [facility] [place]: Head SYNTHES MAXILLOFACIAL 421.502 / / Plate Bx Ti [id number] 4h 421.521 - [id number] Implanted:Qty : 1 on 06/24/2020 by Mad[place] [facility] [place]: Head SYNTHES MAXILLOFACIAL 421.521 / / Screw Ti Lo Pro Sd 4mm 400.834 - [id number] Implanted:Qty : 7 on 06/24/2020 by Madi [...] Lam Spouse Health Care Agent Care Teams Conservation Specialist Relationship Specialty Start Date End Date Apolinar Wayne DO [address] [place] [address] PCP - General Internal Medicine 11/15/23 documented as of this encounter
--- OUTSIDE RECORDS SUMMARY | 2024-04-27 23:15 | External Medical Summary | Summary of Care ---
Author Name Unknown Organization [facility] Address [address] [place] [address] Phone [phone] Care Team Providers Care Senior Benefits Analyst Name Role Phone Apolinar Wayne DO Primary Care Provider [phone] Reason for Visit * Reason Onset Date Comments Information 04/05/202404/05, 04/06 Encounter Details Date Type Department Care Team (Late st Contact Info) Description 04/05/2024 Telephone Family Practice [address], [place] 293 [place] [address] Apolinar Wayne DO 293 [place] [address] Information (04/05, 04/06 ) Allergies [...] A1c goal of less than 7.0% ([facility]) Use as directed every 14 [...] major depressive disorder without prior episode ([facility]),PTSD (post-traumatic stress disorder) Take 1 [...] mRNA, LNP-s, No Pre serve, 2-Dose Series (Squee) 03/10/2021,06/07/2020,05/17/2020 COVID-19, LNP-s, No Preserve , Chandler-sucrose, [...] PT/OT records before I can submit to [facility] for approvals. * Telephone Encounter - Rain Yañez RN - 04/06/2024 1:49 PM EST Left with medial records from [facility] to get recent PT, OT, ST records to submit to [facility] for short term inpatient rehab stay. Gave [address] [place] phone #. I know PT was just today at 11am. If they call back, please have the records faxed to [place] office and place a copy on my [...] [facility] [place]-- had a friend who was there and did not get good care- per patient. PT from [facility] home health is going out to [...] it got denied- patient said that the [facility] should be picking up the tab of whatever [facility] does not cover. She said that happened for a long time, and then all of a sudden, nothing. She is going to contact the [facility] rep in [place] tomorrow to discuss this. She wanted advice on what facilities to look at- they are not interested in looking very far from their home. I told them both I would work on this tomorrow morning- to get recent PT/OT/ST evals from [facility] homehealth- as 1730 on a afternoon I cannot do much. I also discussed about bed availability and the upcoming hol as limiting factors. They verbalized understanding. I will be following up tomorrow. Any other ideas/recs? * Telephone Encounter - Sadie Madera LPN - 04/05/2024 4:43 PM EST Dany with speech therapy calling, Dany is with On[facility] and spouse. tare worker consult has been placed. Family is requesting respite care at local halfway. Patient has had physical therapy 1/3 cancellations from patient and spouse for following 3 appts. Only had one evaluation done. Can we work together to have patient placed for respite care? Willing to go some place for under < 30 days. Thank you * Telephone Encounter - Tamiko Santos RT (R) - 04/05/2024 4:39 PM EST Dany from [facility] Speech Therapy calling regarding Denis. documented in this encounter Plan of Treatment Upcoming Encounters Date Type Department Care Team (Late st Contact Info) Description 04/11/2024 3:45 PM EST Pharmacy Pharmacy Hematology Oncology [facility] [address] [place] [address] [facility]Onc [address] [place] [address] 04/16/2024 7:10 AM EST Laboratory Lab Mobile Phlebotomy [facility] [address] [place] [address] Mvmg, Gml Mobile Home Draw [address] [place] [address] 04/17/2024 2:20 PM EST Office Visit Family Practice [address] [place] [address] 293 [facility] [place] [address] Apolinar Wayne, 293 [place] [address] 04/19/2024 10:30 AM EST Imaging Radiology [address] [place] [address] 04/23/2024 7:10 AM EST Laboratory Lab Mobile Phlebotomy [facility] [address] [place] [address] Mvmg, Gml Mobile Home Draw [address] [employer] [place] [address] 04/26/2024 9:00 AM EST Office Visit Hematology/Oncology [facility] [address] [place], [place] [address] Fernando Solo MD 200 [place] [address] 04/27/2024 3:00 PM EST Office Visit Family Practice [address], [place] 293 [facility] [place] [address] Apolinar Wayne DO 293 [place] [address] 04/30/2024 7:10 AM EST Laboratory Lab Mobile Phlebotomy [facility] [address] [facility], [place] [address] Mvmg, Gml Mobile Home Draw [address] [facility] [place], [place] [address] 05/07/2024 7:10 AM EST Laboratory Lab Mobile Phlebotomy M[facility] [address] [facility], [place] [address] Mvmg, Gml Mobile Home Draw [address]20 [facility] [place] [address] 05/14/2024 7:10 AM EST Laboratory Lab Mobile Phlebotomy M[facility] [address] [facility], [place] [address] Mvmg, Gml Mobile Home Draw [address] [facility] [place], [place] [address] 05/21/2024 7:10 AM EST Laboratory Lab Mobile Phlebotomy M[facility] [address] [facility], [place] [address] Mvmg, Gml Mobile Home Draw 2520 [facility] [place] [address] 05/21/2024 2:30 PM EST Office Visit Urology Garima Meyers [address] [place] [address] Michelle Rodriguez PA-C 27 [place] [address] 05/28/2024 7:10 AM EDT Laboratory Lab Mobile Phlebotomy [facility] [address] [place] [address] Mvmg, Gml Mobile Home Draw [address] [place] [place] [address] 06/04/2024 7:10 AM EDT Laboratory Lab Mobile Phlebotomy [facility] [address] [place] [place] [address] Mvmg, Gml Mobile Home Draw [address] [employer] [place] [address] 06/11/2024 7:10 AM EDT Laboratory Lab Mobile Phlebotomy [facility] [address] [place] [address] Mvmg, Gml Mobile Home Draw [address] [place] [address] 06/18/2024 7:10 AM EDT Laboratory Lab Mobile Phlebotomy [facility] [address] [place] [place] [address] Mvmg, Gml Mobile Home Draw [address] [employer] [place] [address] Scheduled Procedures Name Priority Associated Diagnoses Date/Ti [...] this encounter Medical Devices Implanted Type Area Swine Nutritionist Device Identifier Shelf Expiration Date Model / Serial / Lot Graft Lyoplant 5.0x5.0cm 2x2 - [id number] Implanted:Qty : 1 on 06/24/2020 by Madi Kaur MD [place] [facility]: Head B ALICEA : AESCULAP 11/18/2024 [id number] / / [id number] Graft Lyoplant 5.0x5.0cm 2x2 - [id number] Implanted:Qty : 1 on 06/24/2020 by Madi Kaur MD [place] [facility] [place] ALICEA : AESCULAP [id number] 11/18/2024 [id number] / [id number] / [id number] Graft Lyoplant 5.0x5.0cm 2x2 - [id number] Implanted:Qty : 1 on 06/24/2020 by Madi Kaur MD [place] [facility]: Head B ALICEA : AESCULAP 06/24/2020 [id number] / / [id number] Graft Lyoplant 5.0x5.0cm 2x2 - [id number] Implanted:Qty : 1 on 06/24/2020 by Madi Kaur MD [place] [facility] [place] B ALICEA : AESCULAP [id number] 11/18/2024 [id number] / [id number] / [id number] Plate Ti Lo Pro Str 2h 421.502 - [id number] Implanted:Qty : 2 on 06/24/2020 by Madi Kaur MD [place] [facility] [place]: Head SYNTHES MAXILLOFACIAL 421.502 / / Plate Bx Ti [id number] 4h 421.521 - [id number] Implanted:Qty : 1 on 06/24/2020 by Madi Kaur MD [place] [facility] [place]: Head SYNTHES MAXILLOFACIAL 421.521 / / Screw Ti Lo Pro Sd 4mm 400.834 - [id number] Implanted:Qty : 7 on 06/24/2020 by Madi [...] Spouse Health Care Agent Care Teams Senior Benefits Analyst Relationship Specialty Start Date End Date Apolinar Wayne DO [address] [facility] [place] [address] PCP - General Internal Medicine 11/15/23 documented as of this encounter
--- OUTSIDE RECORDS SUMMARY | 2024-04-27 23:15 | External Medical Summary | Summary of Care ---
Author Name Unknown Organization [facility] Address [address] [place] [address] Phone [phone] Care Team Providers Care Grinder Machine Setter Name Role Phone Apolinar Wayne DO Primary Care Provider [phone] Reason for Visit * Reason Onset Date Comments FYI 04/10/2024 Encounter Details Date Type Department Care Team (Late st Contact Info) Description 04/10/2024 Telephone Family Practice [address] [place] [address] [place] [address] Apolinar Wayne DO [address] [place], [place] [phone] FYI Allergies Active Allergy Reactions Criticality Noted [...] hemoglobin A1c goal of less than 7.0% ([facility]) Use as directed every 14 days [...] of major depressive disorder without prior episode ([facility]),PTSD (post-traumatic stress disorder) Take 1 Tablet by [...] 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 06/27/2018 care home (current) use of insulin 10/27/2017 History [...] mRNA, LNP-s, No Pre serve, 2-Dose Series ([email or web address]) 03/10/2021,06/07/2020,05/17/2020 COVID-19, LNP-s, No Preserve , Chandler-sucrose, Ages 12+ (Pfizer) 11/17/2021 COVID-19, MRNA-LNP, PF, 30 M CG/0.3 mL, 12 YRS AND ABOVE, IM ([facility]) 01/17/2024,03/08/2023 Covid-19, Mrna, Lnp-s, Pf, B [...] patient staying at home that were from [facility]. This CM will continue to follow. Not many notes available this AM on plan of care in [facility]. * Telephone Encounter - Fernando Solo MD - 04/11/2024 8:59 AM EST This is for ER physician Dr. Liliana Solo. He is admitted at [facility]. * Telephone Encounter - Jefferson Alvarado RN - 04/11/2024 8:[address] Solo- did you receive a call from [facility]? Pt is admitted. MTM- fyi patient currently admitted. * Telephone Encounter - Rain Yañez RN - 04/10/2024 3:11 PM EST I spoke to Zelalem Nichols, OT and clinical bridges and buildings supervisor at [facility] Direct phone #: [phone] He remains concerned pt is at increased risk for falls if he continues to be care for at home by the ; I updated Zelalem that patient is currently at [facility] ER due to a fall and hitting his head. Zelalem states a couple of his employees mentioned Aimee not being able to care for patient properlyat home. This CM called and spoke to VITA Duval at [facility] ER again. Updated her with OT's concerns and that hehas been in the home and his staff who has been in the home has concerns. Told her I have been working in the OP setting to try and get him placed, but if we can get him placed while he is at [facility], it would be best and potentially prevent [...] PM EST Pharmacy Pharmacy Hematology Oncology [facility] [address] [place] [address] [facility] Hem/Onc [address] [place] [address] Glioblastoma (HCC)* 04/16/2024 7:10 AM EST Laboratory Lab Mobile Phlebotomy [facility] [address] [place], [place] [address] Mvmg, l Mobile Home Draw [address] [place], [place] [address] 04/17/2024 2:20 PM EST Office Visit Family Practice [address] [facility], [place] [address] [place] [phone] Apolinar Wayne DO 293 [place] [address] 04/17/2024 3:30 PM EST Pharmacy Pharmacy Hematology Oncology [facility] [address] [facility], [place] [address] [facility], [facility] Hem/Onc [address] [facility], [place] [address] 04/19/2024 10:30 AM EST Imaging Radiology [address] [place] [phone] 04/23/2024 7:10 AM EST Laboratory Lab Mobile Phlebotomy [facility] [address] [place] [address] Mvmg, Gml Mobile Home Draw [address] [place] [address] 04/26/2024 9:00 AM EST Office Visit Hematology/Oncology [facility] [place] [address] [facility] [place] [phone] Fernando Solo MD 200 [facility] [address] 04/27/2024 3:00 PM EST Office Visit Family Practice [address] [place] [address] 293 [facility], [place] [address] Apolinar Wayne DO 293 [facility], [place] [address] 04/30/2024 7:10 AM EST Laboratory Lab Mobile Phlebotomy [facility] [address] [place] [address] Mvmg, Gml Mobile Home Draw [address] [place], [place] [address] 05/07/2024 7:10 AM EST Laboratory Lab Mobile Phlebotomy [facility] [address] [place] [address] Mvmg, Gml Mobile Home Draw [address] [place] [address] 05/14/2024 7:10 AM EST Laboratory Lab Mobile Phlebotomy [facility] [address] [place], [place] [address] Mvmg, Gml Mobile Home Draw [address] [place], [place] [address] 05/21/2024 7:10 AM EST Laboratory Lab Mobile Phlebotomy [facility] [address] [place], [place] [address] Mvmg, Gml Mobile Home Draw [address] [place], [place] [address] 05/21/2024 2:30 PM EST Office Visit Urology Garima Meyers Ashley Pepe Der[address] [place] [address] Michelle Rodriguez PA-C 27 [place] [address] 05/28/2024 7:10 AM EDT Laboratory Lab Mobile Phlebotomy [facility] [address] [place], [place] [address] Mvmg, Gml Mobile Home Draw [address] [place], [place] [address] 06/04/2024 7:10 AM EDT Laboratory Lab Mobile Phlebotomy [facility] [address] [place], [place] [address] Mvmg, Gml Mobile Home Draw [address] [place], [place] [address] 06/11/2024 7:10 AM EDT Laboratory Lab Mobile Phlebotomy [facility] [address] [place], [place] [address] Mvmg, Gml Mobile Home Draw [address] [place] [address] 06/18/2024 7:10 AM EDT Laboratory Lab Mobile Phlebotomy [facility] [address] [place], [place] [address] Mvmg, Gml Mobile Home Draw [address] [place], [place] [address] Scheduled Procedures Name Priority Associated Diagnoses Date/Ti [...] this encounter Medical Devices Implanted Type Area Cable Maintainer Device Identifier Shelf Expiration Date Model / Serial / Lot Graft Lyoplant 5.0x5.0cm 2x2 - [id number] Implanted:Qty : 1 on 06/24/2020 by Madi Kaur MD at OR [facility] Right: Head B ALICAE : AESCULAP 11/18/2024 [id number] / / [id number] Graft Lyoplant 5.0x5.0cm 2x2 - [id number] Implanted:Qty : 1 on 06/24/2020 by Madi Kaur MD at OR [facility] B ALICEA : AESCULAP [id number] 11/18/2024 [id number] / [id number] / [id number] Graft Lyoplant 5.0x5.0cm 2x2 - [id number] Implanted:Qty : 1 on 06/24/2020 by Madi Kaur MD at OR [facility] Right: Head B ALICEA : AESCULAP 06/24/2020 [id number] / / [id number] Graft Lyoplant 5.0x5.0cm 2x2 - [id number] Implanted:Qty : 1 on 06/24/2020 by Madi Kaur MD at OR [facility] B ALICEA : AESCULAP [id number] 11/18/2024 [id number] / [id number] / [id number] Plate Ti Lo Pro Str 2h 421.502 - [id number] Implanted:Qty : 2 on 06/24/2020 by Madi Kaur MD at OR [facility] [employer] Right: Head SYNTHES MAXILLOFACIAL 421.502 / / Plate Bx Ti [id number] 4h 421.521 - [id number] Implanted:Qty : 1 on 06/24/2020 by Madi Kaur MD at OR [facility] Right: Head SYNTHES MAXILLOFACIAL 421.521 / / Screw Ti Lo Pro Sd 4mm 400.834 - [id number] Implanted:Qty : 7 on 06/24/2020 by Madi [...] Healthcare Agent [facility] Communication Aimee Lam Spouse Health Care Agent Care Teams Grinder Machine Setter Relationship Specialty Start Date End Date Apolinar Wayne DO 293 [place] [address] PCP - General Internal Medicine 11/15/23 documented as of this encounter
--- OUTSIDE RECORDS SUMMARY | 2024-04-27 23:15 | External Medical Summary | Summary of Care ---
Author Name Unknown Organization [facility] Address [address] [place] [address] Phone [phone] Care Team Providers Care Cafeteria Monitor Name Role Phone Apolinar Wayne DO Primary Care Provider [phone] Encounter Details Date Type Department Care Team (Late st Contact Info) Description 04/10/2024 Telephone Family Practice [address], [place] [address] [place] [address] Apolinar Wayne DO 293 [place] [address] Allergies Active Allergy Reactions Criticality [...] mRNA, LNP-s, No Pre serve, 2-Dose Series ([employer]) 03/10/2021,06/07/2020,05/17/2020 COVID-19, LNP-s, No Preserve , Chandler-sucrose, [...] Miscellaneous Notes * Telephone Encounter - Fernando Solo MD - 04/11/2024 8:59 AM EST This is for ER physician Dr. Liliana Solo. He is admitted at [facility]. * Telephone Encounter - Jefferson Alvarado RN - 04/11/2024 8:[address] Solo- did you receive a call from [facility]? Pt is admitted. MTM- fyi patient currently admitted. * Telephone Encounter - Rain Yañez RN - 04/10/2024 3:11 PM EST I spoke to Zelalem Nichols, OT and clinical doping supervisor at [facility] Direct phone #: [phone] He remains concerned pt is at increased risk for falls if he continues to be care for at home by the ; I updated Zelalem that patient is currently at [facility] ER due to a fall and hitting his head. Zelalem states a couple of his employees mentioned Aimee not being able to care for patient properlyat home. This CM called and spoke to VITA Duval at [facility] ER again. Updated her with OT's concerns and that hehas been in the home and his staff who has been in the home has concerns. Told her I have been working in the OP setting to try and get him placed, but if we can get him placed while he is at [facility], it would be best and potentially prevent [...] PM EST Pharmacy Pharmacy Hematology Oncology [facility] [address] [place] [address] [facility]Onc [address] [place] [address] 04/16/2024 7:10 AM EST Laboratory Lab Mobile Phlebotomy [facility] [address] [place] [address] Mvmg, Gml Mobile Home Draw [address] [place] [address] 04/17/2024 2:20 PM EST Office Visit Family Practice [address] [place] [address] 293 [place] [address] Apolinar Wayne, 293 [place] [address] 04/19/2024 10:30 AM EST Imaging Radiology [address] [place] [phone] 04/23/2024 7:10 AM EST Laboratory Lab Mobile Phlebotomy [facility] 2520 [facility] [place], [place] [address] Mvmg, Gml Mobile Home Draw 2520 [facility] [place], [place] [address] 04/26/2024 9:00 AM EST Office Visit Hematology/Oncology Nasrin Mclaughlin [place] [address] [place], [place] [address] Fernando Solo MD [address] [place] [address] 04/27/2024 3:00 PM EST Office Visit Family Practice [address] [place] [address] 293 [place] [address] Apolinar Wayne, 293 [place] [address] 04/30/2024 7:10 AM EST Laboratory Lab Mobile Phlebotomy [facility] [address] [facility], [place] [address] Mvmg, Gml Mobile Home Draw 2520 [facility], [place] [address] 05/07/2024 7:10 AM EST Laboratory Lab Mobile Phlebotomy [facility] [address] [facility], [place] [address] Mvmg, Gml Mobile Home Draw [address] [facility] [address] 05/14/2024 7:10 AM EST Laboratory Lab Mobile Phlebotomy [facility] [address] [facility], [place] [address] Mvmg, Gml Mobile Home Draw 25[address] [facility], [place] [address] 05/21/2024 7:10 AM EST Laboratory Lab Mobile Phlebotomy [facility] [address] [facility], [place] [address] Mvmg, Gml Mobile Home Draw [address] [facility] [place] [address] 05/21/2024 2:30 PM EST Office Visit Urology Garima Meyers [address] [place] [address] Michelle Rodriguez PA-C 27 [place] [address] 05/28/2024 7:10 AM EDT Laboratory Lab Mobile Phlebotomy [facility] [address] [facility] [place] [address] Mvmg, Gml Mobile Home Draw [address] [facility] [place] [address] 06/04/2024 7:10 AM EDT Laboratory Lab Mobile Phlebotomy [facility] [address] [facility], [place] [address] Mvmg, Gml Mobile Home Draw [address] [facility], [place] [address] 06/11/2024 7:10 AM EDT Laboratory Lab Mobile Phlebotomy [facility] 25[address] [facility] [place], [place] [address] Mvmg, Gml Mobile Home Draw [address] [facility] [place] [address] 06/18/2024 7:10 AM EDT Laboratory Lab Mobile Phlebotomy [facility] [address] [facility] [place] [address] Mvmg, Gml Mobile Home Draw [address] [facility] [address] [place], [place] [address] Scheduled Procedures Name Priority Associated Diagnoses Date/Ti [...] this encounter Medical Devices Implanted Type Area Underground Bolting Machine Operator Device Identifier Shelf Expiration Date Model / Serial / Lot Graft Lyoplant 5.0x5.0cm 2x2 - [id number] Implanted:Qty : 1 on 06/24/2020 by Madi Kaur MD [place] [facility] [place]: Head B ALICEA : AUTUMNCULACleo 11/18/2024 [id number] / / [id number] Graft Lyoplant 5.0x5.0cm 2x2 - [id number] Implanted:Qty : 1 on 06/24/2020 by Madi Kaur MD [place] [facility] B ALICEA : AUTUMNCULACleo [id number] 11/18/2024 [id number] / [id number] / [id number] Graft Lyoplant 5.0x5.0cm 2x2 - [id number] Implanted:Qty : 1 on 06/24/2020 by Madi Kaur MD [place] [facility] Right: Head B ALICEA : AESCULAP 06/24/2020 [id number] / / [id number] Graft Lyoplant 5.0x5.0cm 2x2 - [id number] Implanted:Qty : 1 on 06/24/2020 by Madi Kaur MD at [place] [facility] B ALICEA : AUTUMNCULAP [id number] 11/18/2024 [id number] / [id number] / [id number] Plate Ti Lo Pro Str 2h 421.502 - [id number] Implanted:Qty : 2 on 06/24/2020 by Madi Kaur MD [place] [facility] Right: Head SYNTHES MAXILLOFACIAL 421.502 / / Plate Bx Ti [id number] 4h 421.521 - [id number] Implanted:Qty : 1 on 06/24/2020 by Madi Kaur MD [place] [facility] Right: Head SYNTHES MAXILLOFACIAL 421.521 / / Screw Ti Lo Pro Sd 4mm 400.834 - [id number] Implanted:Qty : 7 on 06/24/2020 by Madi Kaur MD [place] [facility] Right: Head SYNTHES MAXILLOFACIAL 400.834 / / [...] on File Name Relationship Healthcare Agent [facility] p Shira Lam Spouse Health Care Agent Care Teams Cafeteria Monitor Relationship Specialty Start Date End Date Apolinar Wayne DO [address] [place] [address] PCP - General Internal Medicine 11/15/23 documented as of this encounter
--- OUTSIDE RECORDS SUMMARY | 2024-04-27 23:15 | External Medical Summary | Summary of Care ---
Author Name Unknown Organization [facility] Address [address] [place] [address] Phone [phone] Care Team Providers Care Wool Fleece Sorter Name Role Phone Apolinar Wayne DO Primary Care Provider [phone] Reason for Visit * Reason Onset Date Comments Information 04/05/202404/05, 04/06 Encounter Details Date Type Department Care Team (Late st Contact Info) Description 04/05/2024 Telephone Family Practice [address], [place] [address] [place] [address] Apolinar Wayne DO 293 [place] [address] Information (04/05, 04/06 ) Allergies [...] goal of less than 7.0% ([facility]) Use as directed every 14 [...] of major depressive disorder without prior episode ([facility]),PTSD (post-traumatic stress disorder) Take 1 [...] mRNA, LNP-s, No Pre serve, 2-Dose Series ([employer]) 03/10/2021,06/07/2020,05/17/2020 COVID-19, LNP-s, No Preserve , Chandler-sucrose, [...] PT/OT records before I can submit to [facility] for approvals. * Telephone Encounter - Rain Yañez RN - 04/06/2024 1:49 PM EST Left with medial records from [facility] to get recent PT, OT, ST records to submit to [facility] for short term inpatient rehab stay. Gave [address] [place] phone #. I know PT was just today at 11am. If they call back, please have the records faxed to [place] office and place a copy on my [...] [facility] [place]-- had a friend who was there and [...] it got denied- patient said that the [place] should be picking up the tab of whatever [facility] does not cover. She said that happened for a long time, and then all of a sudden, nothing. She is going to contact the [place] rep in [place] tomorrow to discuss this. She wanted advice [...] calling, Dany is with [facility] and spouse. granite worker consult has been placed. Family is requesting respite care at local custodial. Patient has had physical therapy 1/3 cancellations [...] Oncology [facility] [place] [address] [place] [address] [facility], [facility] Hem/Onc [address] [place] [address] Glioblastoma (HCC)* 04/16/2024 7:10 AM EST Laboratory Lab Mobile Phlebotomy [facility] [address] [place] [address] Mvmg, Gml Mobile Home Draw [address] [place] [address] 04/17/2024 2:20 PM EST Office Visit Family Practice 65 [facility], [place] [address] [place] [address] Apolinar Wayne, 293 [place] [address] 04/17/2024 3:30 PM EST Pharmacy Pharmacy Hematology Oncology [facility], [address] [address] [facility], [facility] Hem/Onc [address] [place] [address] 04/19/2024 10:30 AM EST Imaging Radiology [address] [place] [phone] 04/23/2024 7:10 AM EST Laboratory Lab Mobile Phlebotomy [facility] [address] [place] [address] Mvmg, Gml Mobile Home Draw [address] [place] [address] 04/26/2024 9:00 AM EST Office Visit Hematology/Oncology [facility] [place] 200 [facility] [place] [address] Fernando Solo MD 200 [place] [address] 04/27/2024 3:00 PM EST Office Visit Family Practice [address] [place] [address] 293 [place] [phone] Apolinar Wayne DO 293 [place] [address] 04/30/2024 7:10 AM EST Laboratory Lab Mobile Phlebotomy [facility] [address] [place] [address] Mvmg, Gml Mobile Home Draw [address] [facility] [place] [address] 05/07/2024 7:10 AM EST Laboratory Lab Mobile Phlebotomy [facility] [address] [place] [address] Mvmg, Gml Mobile Home Draw [address] [facility] [place] [address] 05/14/2024 7:10 AM EST Laboratory Lab Mobile Phlebotomy [facility] [address] [place] [place] [address] Mvmg, Gml Mobile Home Draw [address] [place] [address] 05/21/2024 7:10 AM EST Laboratory Lab Mobile Phlebotomy [facility] [address] [place] [address] Mvmg, Gml Mobile Home Draw [address] [facility] [place] [address] 05/21/2024 2:30 PM EST Office Visit Urology Garima Meyers [address] [place] [address] Michelle Rodriguez PA-C [address] [place] [address] 05/28/2024 7:10 AM EDT Laboratory Lab Mobile Phlebotomy [facility] [address] [place] [address] Mvmg, Gml Mobile Home Draw [address] [place] [address] 06/04/2024 7:10 AM EDT Laboratory Lab Mobile Phlebotomy [facility] [address] [place], [place] [address] Mvmg, Gml Mobile Home Draw [address] [place], [place] [address] 06/11/2024 7:10 AM EDT Laboratory Lab Mobile Phlebotomy [facility] [address] [place], [place] [address] Mvmg, Gml Mobile Home Draw [address] [place] [address] 06/18/2024 7:10 AM EDT Laboratory Lab Mobile Phlebotomy M[facility] [address] [place], [place] [address] Mvmg, Gml Mobile Home Draw [address] [place], [place] [address] Scheduled Procedures Name Priority Associated Diagnoses Date/Ti [...] this encounter Medical Devices Implanted Type Area Radiology Resident Device Identifier Shelf Expiration Date Model / Serial / Lot Graft Lyoplant 5.0x5.0cm 2x2 - [id number] Implanted:Qty : 1 on 06/24/2020 by Mad[place]aur [place] [facility] [place]: Head B ALICEA : AESCULAP 11/18/2024 [id number] / / [id number] Graft Lyoplant 5.0x5.0cm 2x2 - [id number] Implanted:Qty : 1 on 06/24/2020 by Madi Kaur MD [place] [facility] B ALICEA : AESCULAP [id number] 11/18/2024 [id number] / [id number] / [id number] Graft Lyoplant 5.0x5.0cm 2x2 - [id number] Implanted:Qty : 1 on 06/24/2020 by Madi Kaur MD [place] [facility] [place]: Head B ALICEA : AESCULAP 06/24/2020 [id number] / / [id number] Graft Lyoplant 5.0x5.0cm 2x2 - [id number] Implanted:Qty : 1 on 06/24/2020 by Madi Kaur MD [place] [facility] B ALICEA : AESCULAP [id number] 11/18/2024 [id number] / [id number] / [id number] Plate Ti Lo Pro Str 2h 421.502 - [id number] Implanted:Qty : 2 on 06/24/2020 by Madi Kaur MD [place] [facility] Right: Head SYNTHES MAXILLOFACIAL 421.502 / / Plate Bx Ti [id number] 4h 421.521 - [id number] Implanted:Qty : 1 on 06/24/2020 by Madi Kaur MD [place] [facility] [place]: Head SYNTHES MAXILLOFACIAL 421.521 / / Screw Ti Lo Pro Sd 4mm 400.834 - [id number] Implanted:Qty : 7 on 06/24/2020 by Madi [...] on File Name Relationship Healthcare Agent [facility] Communication Aimee Lam Spouse Health Care Agent Care Teams Wool Fleece Sorter Relationship Specialty Start Date End Date Apolinar Wayne DO 293 [place] [address] PCP - General Internal Medicine 11/15/23 documented as of this encounter
--- OUTSIDE RECORDS SUMMARY | 2024-04-27 23:16 | External Medical Summary | Summary of Care ---
Author Name Unknown Organization [facility] Address [address] [place] [address] Phone [phone] Care Team Providers Care Stick Roller Name Role Phone Apolinar Wayne DO Primary Care Provider [phone] Reason for Visit * Reason Onset Date Comments Information 04/05/202404/05, 04/06 Encounter Details Date Type Department Care Team (Late st Contact Info) Description 04/05/2024 Telephone Family Practice [address] [place] [address] [place] [address] Apolinar Wayne DO [address] [place] [address] Information (04/05, 04/06 ) Allergies [...] mRNA, LNP-s, No Pre serve, 2-Dose Series ([employer]) 03/10/2021,06/07/2020,05/17/2020 COVID-19, LNP-s, No Preserve , Chandler-sucrose, [...] Assessment Author No 06/29/2020 5:01 AM Sa valetnine Morse RN * Do you have serious [...] Left VM with medial records from [facility] to get recent PT, OT, ST records to submit to [facility] for short term inpatient rehab stay. Gave [...] are refusing to have him at the [place] [facility] [place]-- had a friend who was there and did not get good care- per patient. PT from [facility] is going out to the home tomorrow [...] picking up the tab of whatever [facility] does not cover. She said that happened for a long time, and then all of a sudden, nothing. She is going to contact the [place] rep in [place] tomorrow to discuss this. She wanted advice on what facilities to look at- they are not interested in looking very far from their home. I told them both I would work on this tomorrow morning- to get recent PT/OT/ST evals from [facility] homehealth- as 1730 on a afternoon I cannot do much. I also discussed about bed availability and the upcoming holiday as limiting factors. They verbalized understanding. I will be following up tomorrow. Any other ideas/recs? * Telephone Encounter - Sadie Madera LPN - 04/05/2024 4:43 PM EST Dany with speech therapy calling, Dany is with Onur and spouse. derrick worker consult has been placed. Family is [...] - 04/05/2024 4:39 PM EST Dany from [facility] Speech Therapy calling regarding Denis. documented in this encounter Plan of Treatment Upcoming Encounters Date Type Department Care Team (Late st Contact Info) Description 04/11/2024 3:45 PM EST Pharmacy Pharmacy Hematology Oncology [address] [place] [address] [facility] Hem/Onc [address] [place] [facility] [place] [address] 04/16/2024 7:10 AM EST Laboratory Lab Mobile Phlebotomy [facility] [address] [place], [place] [address] Mvmg, Gml Mobile Home Draw [address] [facility] [place], [place] [address] 04/17/2024 2:20 PM EST Office Visit [address] 293 [facility], [place] [phone] Apolinar Wayne, 293 [facility], [place] [address] 04/19/2024 10:30 AM EST Imaging Radiology [address] [facility] [place] [address] 04/23/2024 7:10 AM EST Laboratory Lab Mobile Phlebotomy [facility] [address] [facility], [place] [address] Mvmg, Gml Mobile Home Draw [address] [facility], [place] [address] 04/26/2024 9:00 AM EST Office Visit Hematology/Oncology [facility] [address] [place], [place] [phone] Fernando Solo MD 200 [facility] [address] [place], [place] [address] 04/27/2024 3:00 PM EST Office Visit [address] 293 [facility], [place] [phone] Apolinar Wayne, 293 [facility], [place] [address] 04/30/2024 7:10 AM EST Laboratory Lab Mobile Phlebotomy [facility] [address] [place] [address] Mvmg, Gml Mobile Home Draw [address] [facility] [address] 05/07/2024 7:10 AM EST Laboratory Lab Mobile Phlebotomy [facility] [address] [facility] [address] Mvmg, Gml Mobile Home Draw [address] [place] [address] 05/14/2024 7:10 AM EST Laboratory Lab Mobile Phlebotomy [facility] [address] [place] [address] Mvmg, Gml Mobile Home Draw [address] [facility] [address] 05/21/2024 7:10 AM EST Laboratory Lab Mobile Phlebotomy [facility] [address] [place] [address] Mvmg, Gml Mobile Home Draw [address] [facility] [address] 05/21/2024 2:30 PM EST Office Visit Urology Garima Meyers [address] [place] [address] Michelle Rodriguez PA-C [address] [place] [address] 05/28/2024 7:10 AM EDT Laboratory Lab Mobile Phlebotomy [facility] [address] [facility] [address] Mvmg, Gml Mobile Home Draw [address] [facility] [address] 06/04/2024 7:10 AM EDT Laboratory Lab Mobile Phlebotomy [facility] [address] [facility] [place] [address] Mvmg, Gml Mobile Home Draw [address] [facility] [place] [address] 06/11/2024 7:10 AM EDT Laboratory Lab Mobile Phlebotomy [facility] [address] [facility] [place] [address] Mvmg, Gml Mobile Home Draw [address] [facility] [place] [address] 06/18/2024 7:10 AM EDT Laboratory Lab Mobile Phlebotomy [facility] [address] [facility] [place] [address] Mvmg, Gml Mobile Home Draw [address] [facility] [place] [address] Scheduled Procedures Name Priority Associated Diagnoses Date/Ti [...] this encounter Medical Devices Implanted Type Area Architectural Sales Consultant Device Identifier Shelf Expiration Date Model / Serial / Lot Graft Lyoplant 5.0x5.0cm 2x2 - [id number] Implanted:Qty : 1 on 06/24/2020 by Madi Kaur MD [place] [facility] [place]: Head B ALICEA : AESCULAP 11/18/2024 [id number] / / [id number] Graft Lyoplant 5.0x5.0cm 2x2 - [id number] Implanted:Qty : 1 on 06/24/2020 by Madi Kaur MD at [place] [facility] B ALICEA : AESCULAP [id number] 11/18/2024 [id number] / [id number] / [id number] Graft Lyoplant 5.0x5.0cm 2x2 - [id number] Implanted:Qty : 1 on 06/24/2020 by Madi Kaur MD at [place] [facility] Right: Head B ALICEA : AESCULAP 06/24/2020 [id number] / / [id number] Graft Lyoplant 5.0x5.0cm 2x2 - [id number] Implanted:Qty : 1 on 06/24/2020 by Madi Kaur MD at [place] [facility] B ALICEA : AESCULAP [id number] 11/18/2024 [id number] / [id number] / [id number] Plate Ti Lo Pro Str 2h 421.502 - [id number] Implanted:Qty : 2 on 06/24/2020 by Madi Kaur MD at [place] [facility] Right: Head SYNTHES MAXILLOFACIAL 421.502 / / Plate Bx Ti [id number] 4h 421.521 - [id number] Implanted:Qty : 1 on 06/24/2020 by Madi Kaur MD at [place] [facility] Right: Head SYNTHES MAXILLOFACIAL 421.521 / / Screw Ti Lo Pro Sd 4mm 400.834 - [id number] Implanted:Qty : 7 on 06/24/2020 by Madi Kaur MD at [place] [facility] Right: Head SYNTHES MAXILLOFACIAL 400.834 / / [...] Lam Spouse Health Care Agent Care Teams Stick Roller Relationship Specialty Start Date End Date Apolinar Wayne DO [address] [place] [address] PCP - General Internal Medicine 11/15/23 documented as of this encounter
[2024-04-28] MEDS: levETIRAcetam 250 MG TAB PO SCH (00:02)
[2024-04-28] MEDS ORDERED: GLUCOSE 10 TAB/TUBE PO PRN (00:46)
[2024-04-28] MEDS ORDERED: DEXTROSE 50% 50 ML SYRINGE IV PRN (00:46)
[2024-04-28] MEDS ORDERED: GLUCOSE 40% GEL 15 GM TUBE PO PRN (00:46)
[2024-04-28] MEDS ORDERED: GLUCAGON FOR INJ 1 MG VIAL SQ PRN (00:46)
[2024-04-28] MEDS ORDERED: CARBOHYDRATES FOR HYPOGLYCEMIA PO PRN (00:46)
[2024-04-28] MEDS: INSULIN ASPART PER UNIT CHARGE SC SCH ×2 (01:13→12:06)
[2024-04-28] MEDS: carvediloL 3.125 MG TAB PO ONE (02:14)
[2024-04-28] MEDS: ACETAMINOPHEN 325 MG TAB PO PRN (07:37)
[2024-04-28] MEDS: SERTRALINE HCL 100 MG TABLET PO SCH (07:38)
[2024-04-28] MEDS: PANTOprazole 40 MG TAB PO SCH (07:38)
[2024-04-28] MEDS: ATORVASTATIN 40 MG TAB PO SCH (07:38)
[2024-04-28] MEDS: MULTIVITAMIN TAB PO SCH (07:38)
[2024-04-28] MEDS: GABAPENTIN 300 MG CAP PO SCH (07:38)
[2024-04-28] MEDS: amLODIPine BESYLATE 5 MG TAB PO SCH (07:38)
[2024-04-28] MEDS: carvediloL 3.125 MG TAB PO SCH (07:39)
[2024-04-28] MEDS: LANTUS PER UNIT CHARGE SC SCH (08:04)
[2024-04-28] MEDS ORDERED: hydrALAZINE HCL 20 MG/ML VIAL IV PRN (10:55)
[2024-04-28] MEDS: D5W AND NSS 1,000 ML IV SCH (11:22)
[2024-04-28] MEDS ORDERED: Nursing to Pharmacy Communication SCH (11:30)
--- NOTE | 2024-04-28 15:03 | Hospitalist Progress Note ---
Date of Service April 28, 2024 Assessment & Plan (1) Generalized weakness: (2) Ambulatory dysfunction: (3) Glioblastoma of temporal lobe: (4) H/O craniotomy: (5) DM type 2 (diabetes mellitus, type 2): (6) History of pulmonary embolism: (7) History of seizure: Plan: Weakness, deconditioning History recurrent glioblastoma status post surgery/chemoradiation, progressive disease Clinical dehydration contributory 04/28 CT head: No CT evidence of an acute intracranial abnormality. drowsy today continue IV fluids Aspiration concerns 04/28 evaluated by Speech, recommend NPO for now patient drowsy today, will request for re-assessment tomorrow Seizure disorder secondary to brain tumor, stable on regimen Hypertension, slightly elevated -- prn hydralazine Hyperlipidemia on statin Rx Pulmonary hypertension as per records GERD on PPI DM2, insulin requiring, suboptimal control as of recent hemoglobin A1c of 8.8 last February 2024 Chronic anemia, hemoglobin better than baseline likely secondary to hemoconcentration BPH status post surgery History of PE/DVT, off Xarelto due to fall risk. New onset thrombocytopenia Past tobacco abuse OBS Admit to medical IVF Aspiration precautions, TIPPLE SUPERVISOR evaluation PT OT eval DVT prophylaxis. SCDs re: thrombocytopenia Full code Admission and Anticipated Discharge Date Admission Date: April 27, 2024 Subjective ff up for weakness, etc seen resting in bed, in deep sleep eventually awakened with tactile stimuli states he is very tired no chest pain, dyspnea, palpitations, dizziness no abdominal pain no other symptoms mentioned Review of Systems Review of Systems: all noted and negative except for above Physical Exam Physical Exam: General- drowsy, not in distress, speaks in sentences with no effort or accessory muscle use Eyes- anicteric Neck- no JVD Lungs- clear breath sounds bilaterally, no rales/wheezes Heart- normal rate, regular rhythm; no murmurs Abdomen- normal bowel sounds, nondistended, soft, nontender Extremities- no pretibial edema, no calf tenderness Neuro- drowsy, no new gross focal neurologic deficits Skin- warm & dry Results & Data Results & Data Vital Signs (Past 12 Hours) Vital Signs Temp Pulse Resp BP Pulse Ox O2 Del Method 04/28/24 11:27 Room Air 04/28/24 07:11 36.4 C L 70 15 165/91 H 96 Room Air all noted and reviewed including below
--- OUTSIDE RECORDS SUMMARY | 2024-04-28 15:38 | External Medical Summary | Summary of Care ---
Author Name Unknown Organization [facility] Address [address] [place] [address] Phone [phone] Care Team Providers Care Hydramatic Mechanic Name Role Phone Apolinar Wayne DO Primary Care Provider [phone] Reason for Visit * Reason Onset Date Comments FYI 04/23/2024 Encounter Details Date Type Department Care Team (Late st Contact Info) Description 04/23/2024 Telephone Family Practice [address] [place] [address] [place] [address] Apolinar Wayne DO [address] [place], [place] [phone] FYI Allergies Active Allergy Reactions Criticality Noted Date Comments Erythromycin 07/02/1998 GI upset Guaifenesin & Derivatives 03/18/1997 nucofed documented as of this encounter (statuses as of 04/27/2024) Medications BD Pen Needle Altagracia U/F 32G [...] depressive disorder without prior episode ([facility]),PTSD (post-traumatic stress disorder) Take 1 Tablet by [...] as of this encounter (statuses as of 04/27/2024) Active Problems Problem Noted Date Diagnosed Date [...] as of this encounter (statuses as of 04/27/2024) Resolved Problems Problem Noted Date Diagnosed Date [...] as of this encounter (statuses as of 04/27/2024) Immunizations Name Administration Dates Next Due COVID-19 mRNA, LNP-s, No Pre serve, 2-Dose Series ([employer]) 03/10/2021,06/07/2020,05/17/2020 COVID-19, LNP-s, No Preserve , Chandler-sucrose, Ages 12+ (Pfizer) 11/17/2021 COVID-19, MRNA-LNP, PF, 30 M CG/0.3 mL, 12 YRS AND ABOVE, IM (PFIZER-Comirnaty) 01/17/2024,03/08/2023 Covid-19, Mrna, Lnp-s, Pf, B ivalent, 30 Mcg, IM, 12 yrs and above ([employer]) 04/13/2022 H1N1 2009 Influenza, IM 12/10/2019,04/01/2009 Pneumococcal [...] Telephone Encounter - Rain Yañez RN - 04/27/2024 1:30 PM EST Called and spoke to Aimee, patient's . [facility] has started for additional personal care aides. She is angry with care Gilbert received at [facility]. I validated her feelings. She states they "dropped the ball" and he was walking and then falling and now he is not able to sit up in bed even. She wantsphysical therapy to come to the house. I had already previously told patient's son that this was not possible as it does not align with hospice services. She wanted me to talk to Ulysses/family on Speakerphone and I did. Denis seems to understand diagnosis and its poor prognosis. Gilbert states he is comfortable at home; enjoys having his family around him. Did not know that his reached out to [facility]. Aimee said they have not told [facility] about reaching out to [facility] and looking intoalternative therapies. Denis says he wants to be able to get out of bed and enjoy weather outside. Of note, he sounds very poor and sickly. I told family we continue to have concerns of Gilbert's potential for falls if he were to get up out of bed and try walking and this is because 1. He has been in bed for a couple weeks, but also that his balance is not good due to the brain surgeries and the recurrence of the brain tumor for the 3rd time. They understood, but "want him to be able to sit up in bed" and not just lay in bed. In the background, it was heard that one son was frustrated with how things are going and the care his dad is receiving. They asked if hospice would charge them for the care and equipment he received the last couple weeks- states hospice nurse would know more than I do. Advised Aimee to contact [facility]- she states she will. I advised Aimee that if they stopped hospice, Denis would have to come back to see Dr. Wayne in person to get new Home Health PT/OT eval. Aimee said she has no way to get Gilbert into the office and was not keen; curious if this could be done with telehealth. Told aimee it is an insurance requirement, so unsure if telehealth is an option, but if it would be private pay that might not be a concern- but she would have to contact the outpatient nursing agency to discuss this; she verbalized understanding. CM to ask Dr. Wayne about telehealth for PT eval. Asked if they had reached out for spiritual care-- Denis said he did not like the marketing account manager that came form hospice. No answer given if they had reached out to their person sikh person. Spoke to Dr. Wayne- gave update on phone call; advised Mike BANEGAS might be able to do in person eval, but unsure if that can happen when hospice is involved. Aimee then called back to speak to at approx [phone]. This CM called Aimee back; she said her sons left because they were angry with her. They want to take him to the ER to get IV fluids and mandate that he stay for inpatient PT. I was then put on speaker phone and spoke with Gilbert. I told Denis, "you are cognitively aware enough and with it enough to make your own decisions you need to decide if you want continue to be on hospice or if you want tocontinue treatment and stop hospice, and according to hospice, that includes just getting physical therapy. He understood. He said "well, let's just go and get it over with." I said., "Gilbert, your prognosis is very poor, I do not know if your goals of getting outside and walking are realistic. We could get you in the wheelchair to go outside, probably, but walking again no matter the amount of physical therapy you do, will happen again. I am sorry you have to hear this again, and I know it is hard every time you hear it, but vary rarely does anyone live after one glioblastoma, let it coming back a 3rd time. You need to think about quality of life now. If you want to go to the hospital- OK, but please, make it be what you want and your decision only. " Aimee confirmed patient heard what I said and said she does understanding. I asked if Aimee has contacted hospice, she said "yes and they said they would cover the admission if we decide to take him to the ER" Aimee asked how is the best way to get him to the ER, I said since we are not sending him from the office, like we have in the past, you will just have to call 911 and tell them he is not mobile and why you need to take him to the ER. She verbalized understanding. Denis asked "why did Dr. Wayne order hospice for me?" Told patient Dr. Wayne did not order hospice for you, it was decided while you were in the hospital last time. And I spoke to both your hospitalist doctor and your son personally and said exactly "hospice has to be Gilbert's decision and no one elses." Aimee commented "oh, that is interesting." [As if she was not aware?] Gilbert asked, "Do you think I will get physical therapy if I go to the hospital. I want to get stronger. I want to walk again." I said, "Gilbert what procedures and tests etc they do to you once you go to the hospital is completely up to the doctors at the hospital. There is no guarantee they will admit you. There is no guarantee you will get physical therapy." He understood. At the time of hanging up the phone, Aimee knew to call 911 if Denis wished to go to the ER and that she should not try to take hime by herself. She understood. CM updated PCP & office staff. * Telephone Encounter - Sadie Madera LPN - 04/26/2024 1:19 PM EST Called son and Aimee, Please sign will send email * Telephone Encounter - Rain Yañez RN - 04/23/2024 3:11 PM EST [facility] [[email or web address]] Aimee; left voicemail. * Telephone Encounter - Apolinar Wayne DO - 04/23/2024 3:05 PM EST Start Zofran ODT 4 mg three times a day as needed for Nausea * Telephone Encounter - Rain Yañez RN - 04/23/2024 2:46 PM EST CM call to mahin Arora. [facility]iana [employer] [facility] [employer] [facility] care will be coming to [...] this encounter Medical Devices Implanted Type Area Therapy Assistant Device Identifier Shelf Expiration Date Model / Serial / Lot Graft Lyoplant 5.0x5.0cm 2x2 - [id number] Implanted:Qty : 1 on 06/24/2020 by Madi Kaur MD at OR [facility] [place] Right: Head B ALICEA : AESCULAP 11/18/2024 [id number] / / [id number] Graft Lyoplant 5.0x5.0cm 2x2 - [id number] Implanted:Qty : 1 on 06/24/2020 by Madi Kaur MD at OR [facility] B ALICEA : AESCULAP [id number] 11/18/2024 [id number] / [id number] / [id number] Graft Lyoplant 5.0x5.0cm 2x2 - [id number] Implanted:Qty : 1 on 06/24/2020 by Madi Kaur MD at OR [facility] Right: Head B ALICEA : AESCULAP 06/24/2020 [id number] / / [id number] Graft Lyoplant 5.0x5.0cm 2x2 - [id number] Implanted:Qty : 1 on 06/24/2020 by Madi Kaur MD at OR [facility] B ALICEA : AESCULAP [id number] 11/18/2024 [id number] / [id number] / [id number] Plate Ti Lo Pro Str 2h 421.502 - [id number] Implanted:Qty : 2 on 06/24/2020 by Madi Kaur MD at OR [facility] Right: Head SYNTHES MAXILLOFACIAL 421.502 / / Plate Bx Ti [id number] 4h 421.521 - [id number] Implanted:Qty : 1 on 06/24/2020 by Madi Kaur MD at OR [facility] Right: Head SYNTHES MAXILLOFACIAL 421.521 / / Screw Ti Lo Pro Sd 4mm 400.834 - [id number] Implanted:Qty : 7 on 06/24/2020 by Madi Kaur MD at OR [facility] Right: Head SYNTHES MAXILLOFACIAL 400.834 / / [...] Care Agent [phone] [id number] (Home) Care Teams Hydramatic Mechanic Relationship Specialty Start Date End Date Apolinar Wayne DO [address] [place] [address] PCP - General Internal Medicine 11/15/23 documented as of this encounter
--- OUTSIDE RECORDS SUMMARY | 2024-04-28 15:38 | External Medical Summary | Summary of Care ---
Author Name Unknown Organization [facility] Address [address] [place] [address] Phone [phone] Care Team Providers Care Social Science Research Assistant Name Role Phone Apolinar Wayne DO Primary Care Provider [phone] Reason for Visit * Reason Onset Date Comments FYI 04/23/2024 Encounter Details Date Type Department Care Team (Late st Contact Info) Description 04/23/2024 Telephone Family Practice [address] [place] [address] [place] [address] Apolinar Wayne DO [address] [place], [place] [phone] FYI Allergies Active Allergy Reactions Criticality Noted [...] mRNA, LNP-s, No Pre serve, 2-Dose Series ([employer]) 03/10/2021,06/07/2020,05/17/2020 COVID-19, LNP-s, No Preserve , Chandler-sucrose, Ages 12+ (Pfizer) 11/17/2021 COVID-19, MRNA-LNP, PF, 30 M CG/0.3 mL, 12 YRS AND ABOVE, IM (PFIZER-Comirnaty) 01/17/2024,03/08/2023 Covid-19, Mrna, Lnp-s, Pf, B ivalent, 30 Mcg, IM, 12 yrs and above ([employer]) 04/13/2022 H1N1 2009 Influenza, IM 12/10/2019,04/01/2009 Pneumococcal [...] Called and spoke to Aimee, patient's . [facility] has started for additional personal care aides. She is angry with care Gilbert received at [facility]. I validated her feelings. She states they [...] not know that his reached out to [facility]. Aimee said they have not told [facility] about reaching out to [facility] and looking intoalternative therapies. Denis says he [...] than I do. Advised Aimee to contact [facility]- she states she will. I advised Aimee [...] Denis said he did not like the die finisher that came form hospice. No answer given if they had reached out to their person gnosticist person. Spoke to Dr. Wayne- gave update [...] Yañez RN - 04/23/2024 3:11 PM EST [facility] Aimee; left voicemail. * Telephone Encounter - Apolinar Wayne DO - 04/23/2024 3:05 PM EST Start Zofran ODT 4 mg three times a day as needed for Nausea * Telephone Encounter - Rain Yañez RN - 04/23/2024 2:46 PM EST CM call to mahin Arora. Giuliana [employer] [facility] care will be coming to [...] encounter Medical Devices Implanted Type Area Supervisor Tank Cleaning Device Identifier Shelf Expiration Date Model / Serial / Lot Graft Lyoplant 5.0x5.0cm 2x2 - [id number] Implanted:Qty : 1 on 06/24/2020 by Madi Kaur [place] [facility] [place]: Head B ALICEA : AESCULAP 11/18/2024 [id number] / / [id number] Graft Lyoplant 5.0x5.0cm 2x2 - [id number] Implanted:Qty : 1 on 06/24/2020 by Madi Kaur MD [place] [facility] B ALICEA : AESCULAP [id number] 11/18/2024 [id number] / [id number] / [id number] Graft Lyoplant 5.0x5.0cm 2x2 - [id number] Implanted:Qty : 1 on 06/24/2020 by Madi Kaur MD [place] [facility] [place]: Head B ALICEA : AESCULAP 06/24/2020 [id number] / / [id number] Graft Lyoplant 5.0x5.0cm 2x2 - [id number] Implanted:Qty : 1 on 06/24/2020 by Madi Kaur MD [place] [facility] B ALICEA : AESCULAP [id number] 11/18/2024 [id number] / [id number] / [id number] Plate Ti Lo Pro Str 2h 421.502 - [id number] Implanted:Qty : 2 on 06/24/2020 by Madi Kaur MD [place] [facility] [place]: Head SYNTHES MAXILLOFACIAL 421.502 / / Plate Bx Ti [id number] 4h 421.521 - [id number] Implanted:Qty : 1 on 06/24/2020 by Madi Kaur MD [place] [facility] [place]: Head SYNTHES MAXILLOFACIAL 421.521 / / Screw Ti Lo Pro Sd 4mm 400.834 - [id number] Implanted:Qty : 7 on 06/24/2020 by Madi Kaur MD [place] [facility] [place]: Head SYNTHES MAXILLOFACIAL 400.834 / / [...] on File Name Relationship Healthcare Agent [facility] Communication Aimee Lam Spouse Health Care Agent [phone] (Home) Care Teams Social Science Research Assistant Relationship Specialty Start Date End Date Apolinar Wayne DO [address] [place] [address] PCP - General Internal Medicine 11/15/23 documented as of this encounter
--- OUTSIDE RECORDS SUMMARY | 2024-04-28 15:39 | External Medical Summary | Summary of Care ---
Author Name Unknown Organization [facility] Address [address] [place] [address] Phone [phone] Care Team Providers Care Industrial/Organizational Psychologist Name Role Phone Apolinar Wayne DO Primary Care Provider [phone] Reason for Visit * Reason Onset Date Comments FYI 04/23/2024 Encounter Details Date Type Department Care Team (Late st Contact Info) Description 04/23/2024 Telephone Family Practice [address] [place] [address] Apolinar Wayne DO [address] [place], [place] [id number] FYI Allergies Active Allergy Reactions Criticality Noted [...] mRNA, LNP-s, No Pre serve, 2-Dose Series ([employer]) 03/10/2021,06/07/2020,05/17/2020 COVID-19, LNP-s, No Preserve , Chandler-sucrose, Ages 12+ (Pfizer) 11/17/2021 COVID-19, MRNA-LNP, PF, 30 M CG/0.3 mL, 12 YRS AND ABOVE, IM (PFIZER-Comirnaty) 01/17/2024,03/08/2023 Covid-19, Mrna, Lnp-s, Pf, B ivalent, 30 Mcg, IM, 12 yrs and above ([employer]) 04/13/2022 H1N1 2009 Influenza, IM 12/10/2019,04/01/2009 Pneumococcal [...] Called and spoke to Aimee, patient's . [facility] has started for additional personal care aides. She is angry with care Gilbert received at [facility]. I validated her feelings. She states [...] not know that his reached out to [facility]. Aimee said they have not told [facility] about reaching out to [facility] and looking intoalternative therapies. Denis [...] than I do. Advised Aimee to contact [facility]- she states she will. I advised Aimee [...] Denis said he did not like the maple products maker that came form hospice. No answer given if they had reached out to their person sabianist person. Spoke to Dr. Wayne- gave update [...] Yañez RN - 04/23/2024 3:11 PM EST [facility] Aimee; left voicemail. * Telephone Encounter - Apolinar Wayne DO - 04/23/2024 3:05 PM EST Start Zofran ODT 4 mg three times a day as needed for Nausea * Telephone Encounter - Rain Yañez RN - 04/23/2024 2:46 PM EST CM call to mahin Arora. [facility] will be coming to [...] encounter Medical Devices Implanted Type Area Senior Production Planner Device Identifier Shelf Expiration Date Model / Serial / Lot Graft Lyoplant 5.0x5.0cm 2x2 - [id number] Implanted:Qty : 1 on 06/24/2020 by Madi Kaur MD [place] [facility] [place]: Head B ALICEA : AESCULAP 11/18/2024 [id number] / / [id number] Graft Lyoplant 5.0x5.0cm 2x2 - [id number] Implanted:Qty : 1 on 06/24/2020 by Madi Kaur MD [place] [facility] [place] B ALICEA : AESCULAP [id number] 11/18/2024 [id number] / [id number] / [id number] Graft Lyoplant 5.0x5.0cm 2x2 - [id number] Implanted:Qty : 1 on 06/24/2020 by Madi Kaur MD at [place] [facility] [place] Right: Head B ALICEA : AESCULAP 06/24/2020 [id number] / / [id number] Graft Lyoplant 5.0x5.0cm 2x2 - [id number] Implanted:Qty : 1 on 06/24/2020 by Madi Kaur MD at [place] [facility] B ALICEA : AESCULAP [id number] 11/18/2024 [id number] / [id number] / [id number] Plate Ti Lo Pro Str 2h 421.502 - [id number] Implanted:Qty : 2 on 06/24/2020 by Madi Kaur MD at [place] [facility] [place] Right: Head SYNTHES MAXILLOFACIAL 421.502 / / Plate Bx Ti [id number] 4h 421.521 - [id number] Implanted:Qty : 1 on 06/24/2020 by Madi Kaur MD at [place] [facility] [place] Right: Head SYNTHES MAXILLOFACIAL 421.521 / / Screw Ti Lo Pro Sd 4mm 400.834 - [id number] Implanted:Qty : 7 on 06/24/2020 by Madi Kaur MD at [place] [facility] Right: Head SYNTHES MAXILLOFACIAL 400.834 / [...] Healthcare Agent [facility] Communication Aimee Lam Spouse Health Care Agent [phone] (Home) Care Teams Industrial/Organizational Psychologist Relationship Specialty Start Date End Date Apolinar Wayne DO [address] [place] [address] PCP - General Internal Medicine 11/15/23 documented as of this encounter
--- OUTSIDE RECORDS SUMMARY | 2024-04-28 15:39 | External Medical Summary | Summary of Care ---
Author Name Unknown Organization [facility] Address [address] [place] [address] Phone [phone] Care Team Providers Care Aviation All Source Intelligence Name Role Phone Apolinar Wayne DO Primary Care Provider [phone] Reason for Visit * Reason Onset Date Comments FYI 04/23/2024 Encounter Details Date Type Department Care Team (Late st Contact Info) Description 04/23/2024 Telephone Family Practice [address] [place] [address] [place] [address] Apolinar aWyne DO [address] [place], [place] [id number] FYI Allergies Active Allergy Reactions Criticality Noted [...] of less than 7.0% ([facility]) Use as directed every 14 days [...] disorder without prior episode ([facility]),PTSD (post-traumatic stress disorder) Take 1 Tablet [...] mRNA, LNP-s, No Pre serve, 2-Dose Series ([employer]) 03/10/2021,06/07/2020,05/17/2020 COVID-19, LNP-s, No Preserve , Chandler-sucrose, Ages 12+ (Pfizer) 11/17/2021 COVID-19, MRNA-LNP, PF, 30 M CG/0.3 mL, 12 YRS AND ABOVE, IM (PFIZER-Comirnaty) 01/17/2024,03/08/2023 Covid-19, Mrna, Lnp-s, Pf, B ivalent, 30 Mcg, IM, 12 yrs and above ([employer]) 04/13/2022 H1N1 2009 Influenza, IM 12/10/2019,04/01/2009 Pneumococcal [...] Called and spoke to Aimee, patient's . [facility] has started for additional personal care aides. She is angry with care Gilbert received at [facility]. I validated her feelings. She [...] not know that his reached out to [facility]. Aimee said they have not told [facility] about reaching out to [facility] and looking intoalternative therapies. Denis says he [...] than I do. Advised Aimee to contact [facility]- she states she will. I [...] Denis said he did not like the traffic counter that came form hospice. No answer given if they had reached out to their person evangelical person. Spoke to Dr. Wayne- gave update [...] RN - 04/23/2024 3:11 PM EST [facility] Aimee; left voicemail. * Telephone Encounter - Apolinar Wayne DO - 04/23/2024 3:05 PM EST Start Zofran ODT 4 mg three times a day as needed for Nausea * Telephone Encounter - Rain Yañez RN - 04/23/2024 2:46 PM EST CM call to mahin Arora. [facility] will be coming to [...] this encounter Medical Devices Implanted Type Area Box Spring Upholsterer Device Identifier Shelf Expiration Date Model / Serial / Lot Graft Lyoplant 5.0x5.0cm 2x2 - [id number] Implanted:Qty : 1 on 06/24/2020 by Madi Kaur MD at OR [facility] [place] Right: Head B ALICEA : AESCULAP 11/18/2024 [id number] / / [id number] Graft Lyoplant 5.0x5.0cm 2x2 - [id number] Implanted:Qty : 1 on 06/24/2020 by Madi Kaur MD at OR [facility] [place] B ALICEA : AESCULAP [id number] 11/18/2024 [id number] / [id number] / [id number] Graft Lyoplant 5.0x5.0cm 2x2 - [id number] Implanted:Qty : 1 on 06/24/2020 by Madi Kaur MD at OR [facility] [place] Right: Head B ALICEA : AESCULAP 06/24/2020 [id number] / / [id number] Graft Lyoplant 5.0x5.0cm 2x2 - [id number] Implanted:Qty : 1 on 06/24/2020 by Madi Kaur MD at OR [facility] [place] B ALICEA : AESCULAP [id number] 11/18/2024 [id number] / [id number] / [id number] Plate Ti Lo Pro Str 2h 421.502 - [id number] Implanted:Qty : 2 on 06/24/2020 by Madi Kaur MD at OR [facility] [place] Right: Head SYNTHES MAXILLOFACIAL 421.502 / / Plate Bx Ti [id number] 4h 421.521 - [id number] Implanted:Qty : 1 on 06/24/2020 by Madi Kaur MD at OR [facility] [place] Right: Head SYNTHES MAXILLOFACIAL 421.521 / / Screw Ti Lo Pro Sd 4mm 400.834 - [id number] Implanted:Qty : 7 on 06/24/2020 by Madi [...] Agents on File Name Relationship Healthcare Agent [facility] Communication Aimee Lam Spouse Health Care Agent [phone] (Home) Care Teams Aviation All Source Intelligence Relationship Specialty Start Date End Date Apolinar Wayne DO [address] [place] [place] [address] PCP - General Internal Medicine 11/15/23 documented as of this encounter
[2024-04-28] MEDS: FINASTERIDE 5 MG TAB PO SCH (19:15)
[2024-04-28] MEDS: TAMSULOSIN HCL 0.4 MG CAP PO SCH (19:15)
[2024-04-28] MEDS ORDERED: levETIRAcetam 500 MG/5 ML VIAL IV SCH (20:00)
[2024-04-28] MEDS: levETIRAcetam 500 MG/5 ML VIAL IV SCH (21:27)
[2024-04-29 05:55] LABS: Appearance Urine Clear (Clear); Bacteria Urine Automated None Seen (None Seen); Bilirubin Urine Negative (Negative); Blood Urine Trace (Negative); Cast Urine Automated 0-2 /lpf (0-2); Color Urine Yellow; Epithelial Cell Urine Auto 0-2 /hpf (0-2); Glucose Urine UA Negative (Negative); Ketones Urine 1+ (Negative); Leukocyte Esterase Urine Negative (Negative); Nitrite Urine Negative (Negative); Protein Urine Negative (Negative); RBC Urine Automated 0-2 /hpf (0-2); Specific Gravity Urine 1.019 (1.000-1.030); Urobilinogen Urine Negative (Negative); WBC Urine Automated 0-5 /hpf (0-5); pH Urine 5.5 (4.5-7.5)
[2024-04-29] MEDS ORDERED: Nursing to Pharmacy Communication SCH (11:45)
--- NOTE | 2024-04-29 15:30 | Hospitalist Progress Note ---
Date of Service April 29, 2024 Assessment & Plan (1) Generalized weakness: (2) Ambulatory dysfunction: (3) Glioblastoma of temporal lobe: (4) H/O craniotomy: (5) DM type 2 (diabetes mellitus, type 2): (6) History of pulmonary embolism: (7) History of seizure: Plan: Weakness, deconditioning History recurrent glioblastoma status post surgery/chemoradiation, progressive disease Clinical dehydration contributory 04/28 CT head: No CT evidence of an acute intracranial abnormality. drowsy today continue IV fluids 04/29 Keppra reduced from 750 to 500 mg twice daily in case this is playing a role with his drowsiness Recent chemotherapy drug may also be contributing to his presentation including ataxia, dysarthria, lethargy Also discussed with neurologist Dr. Miller, feels patient's overall presentation is secondary to his glioblastoma Significantly better today Patient is now awake and alert, conversant Encouraged to increase oral fluid intake PT OT evaluation will be ordered Aspiration concerns 04/28 evaluated by Speech, recommend NPO for now patient drowsy today, will request for re-assessment tomorrow 04/29 More awake and alert today Diet advanced Continue to monitor closely Seizure disorder secondary to brain tumor, stable on regimen Hypertension, slightly elevated -- prn hydralazine Hyperlipidemia on statin Rx Pulmonary hypertension as per records GERD on PPI DM2, insulin requiring, suboptimal control as of recent hemoglobin A1c of 8.8 last February 2024 Chronic anemia, hemoglobin better than baseline likely secondary to hemoconcentration BPH status post surgery History of PE/DVT, off Xarelto due to fall risk. New onset thrombocytopenia Past tobacco abuse OBS Admit to medical IVF Aspiration precautions, CAR LOT ATTENDANT evaluation PT OT eval DVT prophylaxis. SCDs re: thrombocytopenia Full code Admission and Anticipated Discharge Date Admission Date: April 29, 2024 Subjective Follow-up for weakness, etc. Seen resting in bed, comfortable, sitting up, awake, alert, oriented x 3 Conversant States he feels much better today than yesterday Was able to eat his meals today with no issues as per patient Denies headache, dizziness, chest pain, shortness of breath, cough, abdominal pain, nausea or vomiting No other new symptoms Review of Systems Review of Systems: all noted and negative except for above Physical Exam Physical Exam: General- oriented x 3, not in distress, speaks in sentences with no effort or accessory muscle use Eyes- anicteric Neck- no JVD Lungs- clear breath sounds bilaterally, no rales/wheezes Heart- normal rate, regular rhythm; no murmurs Abdomen- normal bowel sounds, nondistended, soft, nontender Extremities- no pretibial edema, no calf tenderness Neuro- alert, oriented x 3; no gross focal neurologic deficits Skin- warm & dry Results & Data Results & Data Vital Signs (Past 12 Hours) Vital Signs Temp Pulse Resp BP BP Pulse Ox O2 Del Method 04/29/24 14:39 36.8 C 69 16 164/88 H 98 Room Air 04/29/24 07:11 36.7 C 64 16 174/100 H 179/81 H 96 Room Air all noted and reviewed including below
[2024-04-29] MEDS: INSULIN ASPART PER UNIT CHARGE SC SCH (16:39)
[2024-04-29 17:06] LABS: BUN Creatinine Ratio 27.1 (10-20); Creatinine Clr Calc Pharmacy 108.2 ml/min
[2024-04-29 17:38] LABS: Basophils # (auto) 0.03 K/uL (0.00-0.20); Basophils % (auto) 0.6 %; Eosinophils # (auto) 0.16 K/uL (0.00-0.50); Hematocrit (blood only) 39.2 % (42.0-52.0); Hemoglobin 13.4 g/dl (14.0-18.0); Immature Granulocytes # (auto) 0.02 K/uL (0.01-0.20); Immature Granulocytes % (auto) 0.4 %; Lymphocytes # (auto) 1.19 K/uL (1.20-3.40); Lymphocytes % (auto) 22.6 %; Mean Corpuscular Hemoglobin 30.8 pg (25.0-34.0); Mean Corpuscular Hgb Conc 34.2 g/dL (32.0-36.0); Mean Corpuscular Volume 90.1 fL (80.0-100.0); Mean Platelet Volume 9.9 fL (9.4-12.4); Monocytes # (auto) 0.62 K/uL (0.11-0.59); Monocytes % (auto) 11.8 %; Neutrophils # (auto) 3.24 K/uL (1.40-6.50); Neutrophils % (auto) 61.6 %; Platelet Count 101 K/uL (130-400); RDW Coefficient of Variation 13.5 % (11.5-14.5); Red Blood Count 4.35 M/uL (4.70-6.10); White Blood Count 5.26 K/ul (4.8-10.8)
--- NOTE | 2024-04-30 06:26 | Electrocardiogram Report ---
Test Reason : Blood Pressure : */* mmHG Vent. Rate : 78 BPM Atrial Rate : 78 BPM P-R Int : 186 ms QRS Dur : 66 ms QT Int : 424 ms P-R-T Axes : 53 35 64 degrees QTcB Int : 483 ms Normal sinus rhythm Prolonged QT Abnormal ECG When compared with ECG of 02-Mar-2024 17:16, QT has lengthened Confirmed by Marco Valencia ([id number]) on 04/30/2024 6:26:06 AM Referred By: REFERRED SELF Confirmed By: Marco Valencia
--- NOTE | 2024-04-30 15:45 | Fluoroscopy Report ---
FL video swallow CLINICAL HISTORY: 73 years-old Male with assess for aspiration. Dysphagia with possible aspiration TECHNIQUE: Video fluoroscopic evaluation of swallowing was performed in the AP and lateral projection s by the speech pathology staff. The patient is fed varying consistencies of barium. FLUOROSCOPY TIME: 2.16 minutes. 3912 images were submitted. 12.5 mGy. COMPARISON STUDY: None. FINDINGS: There is abnormal hyoid excursion and epiglottic deflection. Silent aspiration with thin li quid and nectar consistencies. IMPRESSION: 1. Aspiration as above. 2. Please see the speech pathologist report for detailed findings and recommendations. ACT 112: Negative or not required by law. Electronically signed by: Flash Flores M.D. 04/30/2024 3:44 PM
[2024-04-30] MEDS: D5W AND NSS 1,000 ML IV SCH (17:26)
[2024-04-30 17:37] LABS: BUN Creatinine Ratio 26.7 (10-20); Calcium 9.1 mg/dl (8.6-10.3); Creatinine Clr Calc Pharmacy 85.1 ml/min
[2024-04-30 17:49] LABS: Hematocrit (blood only) 41.2 % (42.0-52.0); Mean Corpuscular Hemoglobin 30.8 pg (25.0-34.0); Mean Corpuscular Volume 90.5 fL (80.0-100.0); Mean Platelet Volume 10.2 fL (9.4-12.4); Platelet Count 86 K/uL (130-400); RDW Coefficient of Variation 13.7 % (11.5-14.5); RDW Standard Deviation 45.7 fL (36.4-46.3); Red Blood Count 4.55 M/uL (4.70-6.10)
--- NOTE | 2024-04-30 18:11 | Hospitalist Progress Note ---
Date of Service April 30, 2024 Assessment & Plan (1) Generalized weakness: (2) Ambulatory dysfunction: (3) Glioblastoma of temporal lobe: (4) H/O craniotomy: (5) DM type 2 (diabetes mellitus, type 2): (6) History of pulmonary embolism: (7) History of seizure: Plan: Weakness, deconditioning History recurrent glioblastoma status post surgery/chemoradiation, progressive disease Clinical dehydration contributory 04/28 CT head: No CT evidence of an acute intracranial abnormality. drowsy today continue IV fluids 04/29 Keppra reduced from 750 to 500 mg twice daily in case this is playing a role with his drowsiness Recent chemotherapy drug may also be contributing to his presentation including ataxia, dysarthria, lethargy Also discussed with neurologist Dr. Miller, feels patient's overall presentation is secondary to his glioblastoma Significantly better today Patient is now awake and alert, conversant Encouraged to increase oral fluid intake PT OT evaluation will be ordered 04/30 Awake alert, conversant PT OT evaluation in progress Aspiration concerns 04/28 evaluated by Speech, recommend NPO for now patient drowsy today, will request for re-assessment tomorrow 04/29 More awake and alert today Diet advanced Continue to monitor closely 04/30 Status post video swallow study today Discussed with speech therapy service, Minda Patient showed silent aspiration with thin and thick liquids She had a conversation with the patient and patient prefers to continue with oral feeding for now, permissive aspiration Discussed with patient myself, he confirms that he would like to continue with oral feeds at this time, he is accepting of the risks involved including aspiration, choking, pneumonia, etc. 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 New onset thrombocytopenia Past tobacco abuse PT OT eval DVT prophylaxis. SCDs re: thrombocytopenia Full code Admission and Anticipated Discharge Date Admission Date: April 29, 2024 Subjective Follow-up for dysphagia, weakness, etc. Status post swallow study today Seen sitting up in bed, comfortable, watching TV, awake and alert, conversant, oriented x 3 States he feels okay overall Feeling better compared to yesterday No shortness of breath, sputum production, cough No other new symptoms Review of Systems Review of Systems: all noted and negative except for above Physical Exam Physical Exam: General- oriented x 3, not in distress, speaks in sentences with no effort or accessory muscle use Eyes- anicteric Neck- no JVD Lungs- clear breath sounds bilaterally, No crackles or wheezing noted Heart- normal rate, regular rhythm; no murmurs Abdomen- normal bowel sounds, nondistended, soft, nontender Extremities- no pretibial edema, no calf tenderness Neuro- alert, oriented x 3; no gross focal neurologic deficits Skin- warm & dry Results & Data Results & Data Vital Signs (Past 12 Hours) Vital Signs Temp Pulse Resp BP Pulse Ox O2 Del Method 04/30/24 15:46 36.7 C 74 18 144/91 H 95 Room Air 04/30/24 07:54 36.5 C 73 18 155/97 H 92 Room Air all noted and reviewed including below
[2024-04-30 18:32] LABS: Basophils # (auto) 0.03 K/uL (0.00-0.20); Basophils % (auto) 0.5 %; Eosinophils # (auto) 0.13 K/uL (0.00-0.50); Eosinophils % (auto) 2.3 %; Immature Granulocytes # (auto) 0.03 K/uL (0.01-0.20); Immature Granulocytes % (auto) 0.5 %; Lymphocytes # (auto) 1.02 K/uL (1.20-3.40); Lymphocytes % (auto) 18.2 %; Monocytes # (auto) 0.73 K/uL (0.11-0.59); Neutrophils # (auto) 3.66 K/uL (1.40-6.50); Neutrophils % (auto) 65.5 %; RBC Morphology Unremarkable
[2024-04-30] MEDS: POTASSIUM CHLORIDE 20 MEQ/15 ML UDC PO STA (19:13)
[2024-04-30] MEDS: D5NSS + 20MEQ KCL 20 MEQ/1,000 ML BAG IV SCH (19:14)
[2024-04-30] MEDS: POTASSIUM CHLORIDE 20 MEQ/15 ML UDC PO ONE (20:19)
[2024-05-01 07:51] LABS: Basophils # (auto) 0.03 K/uL (0.00-0.20); Basophils % (auto) 0.5 %; Eosinophils # (auto) 0.15 K/uL (0.00-0.50); Eosinophils % (auto) 2.6 %; Hemoglobin 12.8 g/dl (14.0-18.0); Immature Granulocytes # (auto) 0.03 K/uL (0.01-0.20); Immature Granulocytes % (auto) 0.5 %; Lymphocytes # (auto) 0.94 K/uL (1.20-3.40); Lymphocytes % (auto) 16.5 %; Mean Corpuscular Hgb Conc 33.7 g/dL (32.0-36.0); Mean Platelet Volume 10.3 fL (9.4-12.4); Monocytes # (auto) 0.64 K/uL (0.11-0.59); Monocytes % (auto) 11.2 %; Neutrophils # (auto) 3.91 K/uL (1.40-6.50); Neutrophils % (auto) 68.7 %; Platelet Count 73 K/uL (130-400); RDW Coefficient of Variation 13.6 % (11.5-14.5); RDW Standard Deviation 46.2 fL (36.4-46.3); Red Blood Count 4.13 M/uL (4.70-6.10)
[2024-05-01 08:06] LABS: BUN Creatinine Ratio 28.4 (10-20); Calcium 8.6 mg/dl (8.6-10.3); Creatinine Clr Calc Pharmacy 86.3 ml/min; Potassium 3.2 mmol/L (3.5-5.1)
[2024-05-01 15:36] LABS: Albumin Level 3.3 gm/dl (3.4-5.0); Bilirubin Direct 0.1 mg/dl (0-0.2); Bilirubin,Total 0.6 mg/dl (0.2-1.0); Total Protein 6.1 gm/dl (6.0-8.3)
--- NOTE | 2024-05-01 16:18 | Hospitalist Progress Note ---
Date of Service May 01, 2024 Assessment & Plan (1) Generalized weakness: (2) Ambulatory dysfunction: (3) Glioblastoma of temporal lobe: (4) H/O craniotomy: (5) DM type 2 (diabetes mellitus, type 2): (6) History of pulmonary embolism: (7) History of seizure: Plan: Weakness, ataxia, dysphagia History recurrent glioblastoma status post surgery/chemoradiation, progressive disease Dehydration 04/28 CT head: No CT evidence of an acute intracranial abnormality. drowsy today continue IV fluids 04/29 Keppra reduced from 750 to 500 mg twice daily in case this is playing a role with his drowsiness Recent chemotherapy drug may also be contributing to his presentation including ataxia, dysarthria, lethargy Also discussed with neurologist Dr. Miller, feels patient's overall presentation is secondary to his glioblastoma Significantly better today Patient is now awake and alert, conversant Encouraged to increase oral fluid intake PT OT evaluation will be ordered 04/30 Awake alert, conversant PT OT evaluation in progress 05/01 Alert, conversant per family Continue PT OT evaluation Repeat brain MRI with and without contrast advised by revenue settlements administrator Dr. Solo Dysphagia Silent aspiration 04/28 evaluated by Speech, recommend NPO for now patient drowsy today, will request for re-assessment tomorrow 04/29 More awake and alert today Diet advanced Continue to monitor closely 04/30 Status post video swallow study today Discussed with speech therapy service, Minda Patient showed silent aspiration with thin and thick liquids She had a conversation with the patient and patient prefers to continue with oral feeding for now, permissive aspiration Discussed with patient myself, he confirms that he would like to continue with oral feeds at this time, he is accepting of the risks involved including aspiration, choking, pneumonia, etc. Patient declines tube feeding at this point Also discussed with patient's over the phone in detail and at length Dysphagia most likely secondary to glioblastoma, and will likely be progressive 05/01 Doing well with oral meds and oral intake today as per family at the bedside Thrombocytopenia Platelet levels trending down No signs of bleeding Possibly related to recent oral chemotherapy Discussed with Dr. Fernando Solo Continue to monitor for now Seizure disorder secondary to brain tumor -- stable on regimen --Keppra decreased to 500 mg twice daily in light of lethargy Tolerating well so far Hypertension, slightly elevated -- prn hydralazine Hypokalemia --Replace Hyperlipidemia on statin Rx Pulmonary hypertension as per records GERD on PPI DM2, insulin requiring, suboptimal control as of recent hemoglobin A1c of 8.8 last February 2024 Chronic anemia, hemoglobin better than baseline likely secondary to hemoconcentration BPH status post surgery History of PE/DVT, off Xarelto due to fall risk. Past tobacco abuse PT OT eval DVT prophylaxis. SCDs re: thrombocytopenia Full code Admission and Anticipated Discharge Date Admission Date: April 29, 2024 Subjective ff up for weakness, dysphagia, etc seen resting in bed, comfortable sleeping patient's Aimee and grandson at bedside visiting as per grandson, patient had breakfast and lunch today, no signs of aspiration Patient is alert, conversant as per family Review of Systems Review of Systems: all noted and negative except for above Physical Exam Physical Exam: General- sleeping, not in distress Eyes- anicteric Neck- no JVD Lungs- clear breath sounds bilaterally, no rales/wheezes Heart- normal rate, regular rhythm; no murmurs Abdomen- normal bowel sounds, nondistended, soft, nontender Extremities- no pretibial edema, no calf tenderness Neuro- sleeping Skin- warm & dry Results & Data Results & Data Vital Signs (Past 12 Hours) Vital Signs Temp Pulse Resp BP Pulse Ox O2 Del Method 05/01/24 14:24 36.6 C 74 18 154/99 H 94 Room Air 05/01/24 07:41 36.5 C 74 16 162/89 H 96 Room Air all noted and reviewed including below
[2024-05-01] MEDS: LORazepam 0.5 MG TAB PO ONE (16:40)
[2024-05-01] MEDS: GADOBUTROL 65ML VIAL IV ONE (18:09)
--- NOTE | 2024-05-01 19:28 | Magnetic Resonance Report ---
Exam: MRI of the brain without then with contrast Reason for exam: History of glioblastoma with craniotomy x2. Patient is claustrophobic. TECHNIQUE: Magnetic resonance imaging of the brain with and without gadolinium contrast were obtained. COMPARISON: CT head 04/27/2024; MRI brain 04/11/2024 FINDINGS: Note that this study is a limited due to the patient's claustrophobic reaction and motion throughout the examination. With these considerations in mind, the following are observed: Again the large area of encephalomalacia in the right middle cranial fossa consistent with the tumor resection at this level is noted and replacement by CSF signal material. There is some diffuse atrophy as well as diffuse ventricular enlargement which is stable when compared to the old study. No midline shift or extra-axial blood/fluid collection is seen. No area of acute ischemia is seen on the diffusion-weighted images. Again diffuse bright signal is seen surrounding the ventricles and in the deep white matter tracks, greater in the right hemisphere. Following the administration of intravenous contrast material again the area of irregular enhancement along the posterior medial and posterior margins of previous tumor resection are noted. These remain quite similar in size to the previous study of 04/11/2024 the larger body of enhancement measuring 3.3 x 1.6 x 1.1 cm and a smaller body of enhancement along the posterior margin of the tumor resection measuring 0.9 cm in diameter. No other evidence of abnormal enhancement is identified at this time. The ventricular enlargement is stable. IMPRESSION: 1. Abnormal enhancing tissue at the margins of the previously resected glioma in the right middle cranial fossa suggest recurrent neoplasm. This remains quite similar in size and extent to the most recent previous study of 04/11/2024. 2. Otherwise no acute intracranial process. Ventricular enlargement and atrophy are stable. No evidence of acute ischemia or hemorrhage. 3. Note that this examination was limited by the clinician patient's claustrophobic response and motion throughout the examination. Electronically signed by Reji Anthony 05-01-2024 7:28 PM
[2024-05-02 11:28] LABS: Calcium 8.5 mg/dl (8.6-10.3); Magnesium 1.6 mg/dl (1.7-2.4); Potassium 3.6 mmol/L (3.5-5.1)
[2024-05-02 11:34] LABS: BUN Creatinine Ratio 21.2 (10-20); Creatinine Clr Calc Pharmacy 96.7 ml/min; Phosphorus 3.5 mg/dl (2.5-4.9)
--- NOTE | 2024-05-02 13:19 | Hospitalist Progress Note ---
Date of Service May 02, 2024 Assessment & Plan (1) Generalized weakness: (2) Ambulatory dysfunction: (3) Glioblastoma of temporal lobe: (4) H/O craniotomy: (5) DM type 2 (diabetes mellitus, type 2): (6) History of pulmonary embolism: (7) History of seizure: Plan: Weakness, ataxia, dysphagia, likely secondary to Glioblastoma, Dehydration History recurrent glioblastoma status post surgery/chemoradiation, progressive disease initial CT head: No CT evidence of an acute intracranial abnormality. very lethargic on admission, could not even participate with bedside swallow evaluation Given IV fluids Keppra decreased from 750 to 500 mg twice daily Recent chemotherapy drug Lamustine given mid-March may also be contributing to his presentation including ataxia, dysarthria, lethargy Also discussed with neurologist Dr. Miller, feels patient's overall presentation is secondary to his glioblastoma Significantly better on hospital day 3 awake and alert, conversant Encouraged to increase oral fluid intake PT OT evaluation : patient requiring a lot of assistance Brain MRI ordered per Discussion with oncologist Dr. Fernando Solo: 1. Abnormal enhancing tissue at the margins of the previously resected glioma in the right middle cranial fossa suggest recurrent neoplasm. This remains quite similar in size and extent to the most recent previous study of 04/11/2024. 2. Otherwise no acute intracranial process. Ventricular enlargement and atrophy are stable. No evidence of acute ischemia or hemorrhage. 3. Note that this examination was limited by the clinician patient's claustrophobic response and motion throughout the examination. Discharge plan: Home with home health, physical therapy Patient's will also provide 24-hour care for the patient Will also need speech therapy evaluation Dysphagia Silent aspiration 04/30 Status post video swallow study Discussed with speech therapy service, Minda Patient showed silent aspiration with thin and thick liquids She had a conversation with the patient and patient prefers to continue with oral feeding for now, permissive aspiration Discussed with patient myself, he confirms that he would like to continue with oral feeds at this time, he is accepting of the risks involved including aspiration, choking, pneumonia, etc. Patient declines tube feeding at this point Also discussed with patient's over the phone in detail and at length Dysphagia most likely secondary to glioblastoma, and will likely be progressive 05/01 Doing well with oral meds and oral intake today as per family at the bedside Continue speech therapy as outpatient Strict aspiration precautions Thrombocytopenia Platelet levels trending down No signs of bleeding Possibly related to recent oral chemotherapy Discussed with Dr. Fernando Solo Continue to monitor for now 05/02 CBC today pending HIT antibody also ordered No signs of bleeding Monitor closely Seizure disorder secondary to brain tumor --Keppra decreased to 500 mg twice daily in light of lethargy Tolerating well so far Hypertension -- prn hydralazine Hypokalemia --Replace Hyperlipidemia on statin Rx Pulmonary hypertension as per records GERD on PPI DM2, insulin requiring, suboptimal control as of recent hemoglobin A1c of 8.8 last February 2024 BPH status post surgery History of PE/DVT, off Xarelto due to fall risk. Past tobacco abuse DVT prophylaxis. SCDs re: thrombocytopenia Full code Disposition: Anticipate discharge to home tomorrow with family support, home health service PCP follow-up in 1 week Follow-up with oncologist Dr. Solo Admission and Anticipated Discharge Date Admission Date: April 29, 2024 Subjective ff up for weakness, dysphagia, ataxia in the setting of glioblastoma, s/p resection 02/11, etc seen resting in bed, awake, alert, oriented x 3 conversant, in good spirits states he feels fine overall no problems with swallowing pills today no other new symptoms Review of Systems Review of Systems: all noted and negative except for above Physical Exam Physical Exam: General- oriented x 3, not in distress, speaks in sentences with no effort or accessory muscle use Eyes- anicteric Neck- no JVD Lungs- clear breath sounds bilaterally, no rales/wheezes Heart- normal rate, regular rhythm; no murmurs Abdomen- normal bowel sounds, nondistended, soft, nontender Extremities- no pretibial edema, no calf tenderness Neuro- alert, oriented x 3; no gross focal neurologic deficits Skin- warm & dry Results & Data Results & Data Vital Signs (Past 12 Hours) Vital Signs Temp Pulse Resp BP Pulse Ox O2 Del Method 05/02/24 07:45 36.3 C L 68 16 156/90 H 97 Room Air all noted and reviewed including below
[2024-05-02 13:26] LABS: Basophils # (auto) 0.02 K/uL (0.00-0.20); Basophils % (auto) 0.4 %; Eosinophils # (auto) 0.13 K/uL (0.00-0.50); Eosinophils % (auto) 2.3 %; Hematocrit (blood only) 36.8 % (42.0-52.0); Hemoglobin 12.4 g/dl (14.0-18.0); Immature Granulocytes # (auto) 0.02 K/uL (0.01-0.20); Immature Granulocytes % (auto) 0.4 %; Lymphocytes # (auto) 0.94 K/uL (1.20-3.40); Lymphocytes % (auto) 16.8 %; Mean Corpuscular Hemoglobin 30.6 pg (25.0-34.0); Mean Corpuscular Hgb Conc 33.7 g/dL (32.0-36.0); Mean Corpuscular Volume 90.9 fL (80.0-100.0); Mean Platelet Volume 10.7 fL (9.4-12.4); Monocytes # (auto) 0.58 K/uL (0.11-0.59); Monocytes % (auto) 10.4 %; Neutrophils # (auto) 3.91 K/uL (1.40-6.50); Neutrophils % (auto) 69.7 %; Platelet Count 63 K/uL (130-400); RDW Coefficient of Variation 13.6 % (11.5-14.5); RDW Standard Deviation 45.5 fL (36.4-46.3); Red Blood Count 4.05 M/uL (4.70-6.10)
[2024-05-02] MEDS: MAGNESIUM SULFATE / D5W 1 GM/100 ML BAG IV ONE (23:42)
[2024-05-03 08:22] VITALS: RESP 16
[2024-05-03 08:59] LABS: BUN Creatinine Ratio 22.2 (10-20); Calcium 8.7 mg/dl (8.6-10.3); Creatinine Clr Calc Pharmacy 101.3 ml/min; Magnesium 1.9 mg/dl (1.7-2.4); Phosphorus 3.4 mg/dl (2.5-4.9); Potassium 3.2 mmol/L (3.5-5.1)
[2024-05-03] MEDS: levETIRAcetam 250 MG TAB PO SCH (10:03)
[2024-05-03 10:33] LABS: Basophils # (auto) 0.04 K/uL (0.00-0.20); Basophils % (auto) 0.7 %; Eosinophils # (auto) 0.12 K/uL (0.00-0.50); Eosinophils % (auto) 2.1 %; Hematocrit (blood only) 39.7 % (42.0-52.0); Hemoglobin 13.3 g/dl (14.0-18.0); Immature Granulocytes # (auto) 0.03 K/uL (0.01-0.20); Immature Granulocytes % (auto) 0.5 %; Lymphocytes # (auto) 0.83 K/uL (1.20-3.40); Lymphocytes % (auto) 14.3 %; Mean Corpuscular Hemoglobin 30.6 pg (25.0-34.0); Mean Corpuscular Hgb Conc 33.5 g/dL (32.0-36.0); Mean Corpuscular Volume 91.3 fL (80.0-100.0); Mean Platelet Volume 10.8 fL (9.4-12.4); Monocytes % (auto) 8.6 %; Neutrophils # (auto) 4.27 K/uL (1.40-6.50); Neutrophils % (auto) 73.8 %; Platelet Count 68 K/uL (130-400); RDW Coefficient of Variation 13.2 % (11.5-14.5); RDW Standard Deviation 44.8 fL (36.4-46.3); Red Blood Count 4.35 M/uL (4.70-6.10); White Blood Count 5.79 K/ul (4.8-10.8)
[2024-05-03 12:11] VITALS: BP 121/72; TEMP 97.9; O2SAT 94
[2024-05-03] MEDS: POTASSIUM CHLORIDE PWD 20 MEQ PACK PO SCH (13:07)
[2024-05-03 13:55] VITALS: PULSE 75
--- NOTE | 2024-05-03 14:54 | Discharge Summary ---
Date of Service May 03, 2024 Admission HPI Per Admitting Provider Patient is 73-year-old male with PMH glioblastoma s/p surgical resection in 2020, with recurrence glioblastoma and s/p surgery 01/31/[address] [facility], history seizure with first glioblastoma without any recurrent seizures, HTN, dyslipidemia, history DVT/PE, anticoagulated on Xarelto, DM II, pulmonary hypertension, PTSD, depression, GERD, BPH presented to ER with weakness. Per inpatient chart review history of [facility] hospitalization 03/02/2024-03/05/2024 for weakness, OROPEZA and recurrent [facility] hospitalization 04/11/24-04/17/24 for weakness and frequent falls and there was initial consideration about trying rehab. Discussion with palliative services took place. Ultimately decision was made for patient to go home with hospice services. Patient states since being home he has had continued weakness and is not able to get out of bed. He states he continues with daily OROPEZA's and takes Tylenol with moderate relief. Patient reports not eating and is attempting fluids through a straw but reports choking and coughs and sometimes near vomiting. Denies diarrhea, abdominal pain, CP, SOB, fever/chills, urinary symptoms. Per review of outpatient disease case manager rn note from 04/27/24 it seems there has been some varying opinions between patient, patient's and patient's son about patients prognosis and goals. Per outpatient CM note today patient's wants PT to come to the house, however PT is not covered by [facility]. has attempted reaching out to [facility] for possible alternative therapies and states hospice services did not know about this. Family has decided today they want to see if patient can have PT and rehab so brought patient to the hospital. When I evaluated patient in the ER his and son were not at bedside as they had just stepped out. Patient states that his goal is to be able to walk. He states that his family have stated that they want more aggressive treatments for him and he reports they have made statements that they are not ready for him to . Patient reports that he is aware his family are trying to get him to be evaluated at [facility]. He states he told his today that he does not want any more procedures or surgeries. He does state that he is trying to do what his family wishes. I had discussion with him that he is in charge of his body and his medical decision making as well and he voices understanding but states it is hard to see his family like this and he is trying to do things to make them happy. He states he has enjoyed that his family has been visiting him at home this past week. Patient states that he has not been on prior prescribed medications since being on hospice. Admission Exam Per Admitting Provider General: no acute distress, +chronic ill appearing, WDWN Head: normocephalic, atraumatic Eyes: conjunctiva non-injected, anicteric ENT: normal inspection external ears, nose, mucous membranes moist Neck: supple, trachea midline Lungs: clear, no respiratory distress, no wheezing/rhonchi/rales noted CV: RRR, no murmur, no pretibial edema Abd: normal BS, soft, non-tender Ext: no cyanosis, no calf tenderness Neuro: A&O x 3, normal affect, +diffuse weakness. able to actively raise bilateral arms to approximately 90 degrees and hold for 8 seconds. able to actively flex and extend hips and knees but unable to keep legs raised off bed Skin: warm, dry Principal Diagnosis Weakness, ataxia, dysphagia, likely secondary to Glioblastoma, Dehydration History recurrent glioblastoma status post surgery/chemoradiation, progressive diseas Discharge Exam General- oriented x 3, not in distress, speaks in sentences with no effort or accessory muscle use Eyes- anicteric Neck- no JVD Lungs- clear breath sounds bilaterally, no rales/wheezes Heart- normal rate, regular rhythm; no murmurs Abdomen- normal bowel sounds, nondistended, soft, nontender Extremities- no pretibial edema, no calf tenderness Neuro- alert, oriented x 3; no gross focal neurologic deficits Skin- warm & dry Discharge Data Allergies Allergy/AdvReac Type Severity Reaction Status Date / Time erythromycin base AdvReac Unknown nausea/vomi Verified 12/11/21 09:20 ting Consultations 04/27/24 21:03 ED Decision to Admit Stat 04/28/24 16:54 Consult Neurology Routine Ordered Studies 04/27/24 18:19 CT head/brain wo con Stat 04/30/24 10:00 FL video swallow Routine 05/01/24 16:21 MRI Brain [MR brain wo/w con] Routine Hospital Course (1) Generalized weakness: (2) Ambulatory dysfunction: (3) Glioblastoma of temporal lobe: (4) H/O craniotomy: (5) DM type 2 (diabetes mellitus, type 2): (6) History of pulmonary embolism: (7) History of seizure: Weakness, ataxia, dysphagia, likely secondary to Glioblastoma, Dehydration History recurrent glioblastoma status post surgery/chemoradiation, progressive disease Patient presented to the hospital with significant weakness and lethargy. Recent chemotherapy drug Lamustine given mid-March may also be contributing to his presentation including ataxia, dysarthria, lethargy Patient's mentation improved gradually throughout the hospitalization. He was supported with IV fluids during the hospitalization. PT OT evaluation was done. Initially, dose of Keppra was decreased to 500 mg twice daily but increased to home dose on the day of the discharge. Patient did not have any change in mentation and was alert, oriented and conversant. PT OT evaluation was done; recommended home health and 24-hour care. Patient discharged home Dysphagia Silent aspiration Patient underwent video swallow; found to have silent aspiration with thick and thick liquids. It was discussed with the patient during the hospitalization; reported that he would like to continue oral feed and is excepting any risks involved with aspiration, choking and pneumonia. Patient declined tube feeds. Dysphagia likely secondary to glioblastoma which will be progressive. Previous attending discussed the finding with patient's over the phone as well. Thrombocytopenia Platelet levels trending down No signs of bleeding Possibly related to recent oral chemotherapy Discussed with Dr. Fernando Solo No signs of bleeding Patient to follow-up with PCP and oncology after discharge. Please note the above document was generated using voice recognition software. It may contain grammatical, syntax or spelling errors. Any formal questions or concerns about the content, text or information contained within the body of this dictation should be directly addressed to the provider for clarification Total Time Total Time Spent Total Time Spent (In Minutes): 45 Total Time Includes: Examination of the Patient, Discharge Planning, Medication Reconciliation, Communication With Other Providers and Other Discharge Plan Discharge Items Patient Disposition: Home - Self-Care Reason For Visit: WEAKNESS Discharge Diagnosis: Generalized weakness Activity: Resume your previous activity Non-emergency contact: Primary Care Provider Call non-emergency contact if: you have any medication questions and your symptoms worsen Follow-up/Referrals: Apolinar Wayne, [Primary Care Provider] - Diet: Regular Addtl Attending Provider Instructions: Continue to do home physical therapy and Occupational Therapy at home. No medication changes have been made. Minimize the use of Ativan as it can cause change in mentation. Pending Studies at Discharge: No Stand-Alone Forms: [facility], Smoking Cessation Medications and DC Order Prescriptions: Continued diclofenac sodium 1 % gel 2 g topical QID PRN (Reason: Pain) Rx Instructions: apply to single elbow, wrist or hand; for hand includes palm/fingers/back of hand polyethylene glycol 3350 [Miralax] 17 gram/dose powder 17 g PO DAILY PRN (Reason: constipation ) sertraline [Zoloft] 100 mg tablet 100 mg PO DAILY ergocalciferol (vitamin D2) 10 mcg (400 unit) tablet 10 mcg PO DAILY multivitamin Tablet 1 tab PO DAILY pantoprazole 40 mg Tablet,Delayed Release (Dr/Ec) 40 mg PO QAM carvedilol 3.125 mg tablet 3.125 mg PO BID atorvastatin 80 mg tablet 80 mg PO DAILY lomustine 40 mg Capsule See Rx Instructions .ROUTE .COMPLEX Hold Instructions: Resume on 04/26/24. Hold until further discussion with your cancer doctor as outpatient. Rx Instructions: Take 4 Capsules by mouth every 6 weeks. Take on an empty stomach lorazepam 0.5 mg tablet 0.5 mg PO TID PRN (Reason: Anxiety) docusate sodium 100 mg Tablet 100 mg PO BID PRN (Reason: Constipation) insulin glargine 100 unit/mL (3 mL) insulin pen 12 unit SUBCUT DAILY amlodipine [Norvasc] 5 mg Tablet 5 mg PO QAM Qty: 30 0RF magnesium oxide 420 mg Tablet 420 mg PO HS gabapentin 300 mg capsule 300 mg PO TID levetiracetam 750 mg tablet 750 mg PO BID tamsulosin 0.4 mg Capsule 0.4 mg PO HS Qty: 0 0RF finasteride 5 mg Tablet 5 mg PO HS Qty: 0 0RF Discharge Orders: Discharge Order (Routine); Ordered 05/03/24 Ordered By: [place] Admission Data Admit Date/Time: 04/29/24 07:24 Attending Provider: [place] Admit Provider: Berry Luke Primary Care Provider: Apolinar Wayne Other Providers: Berry Luke; Lis Reynoso; Adarsh Jackson; Lis Martinez; Reji Chandra; Marques Torres; Chaka Avila; Inocencio Mcfarland; Rosie Kwon; Edouard Borrero; Serafin Bowens; Maame Bauer; Apolinar Kirk; Danitza Cannon; Yanci Capps; Inocencio Miller; Veronika Ferguson Other Interventions: Discharge Summary Assessment (RN) Last Done: 05/03/24 13:48
[2024-05-05 12:42] LABS: Plt Ab, Heparin Induced Negative (Negative)
== END 2024-05-03 14:46 | disposition home or self-care (01) | DRG 641 ==
LOC: ED 16:09 → 3W 16:09 → SUATTDRO 04-29 07:24 → 3N 04-29 22:34

== ENCOUNTER 2024-05-06 12:13 | Inpatient (IN) ==
--- OUTSIDE RECORDS SUMMARY | 2024-05-06 12:22 | External Medical Summary | Summary of Care ---
Author Name Unknown Organization [facility] Address [address] [place] [address] Phone [phone] Care Team Providers Care Manufacturing Systems Engineer Name Role Phone Apolinar Wayne DO Primary Care Provider [phone] Reason for Visit * Reason Onset Date Comments [facility]: Maintenance 05/04/2024 Encounter Details Date Type Department Care Team (Late st Contact Info) Description 05/04/2024 Telephone [facility], [facility] [address] [place] [address] Judith Rios, RN [address] [place] [address] [facility]: Maintenance Allergies Active Allergy Reactions Criticality Noted Date Comments Erythromycin 07/02/1998 GI upset Guaifenesin & Derivatives 03/18/1997 nucofed documented as of this encounter (statuses as of 05/04/2024) Medications BD Pen Needle Altagracia U/F 32G [...] 02/04/2024 2:51 PM EST 04/15/19 24 Active Pantoprazole Sodium 40 MG Oral Tablet [...] as of this encounter (statuses as of 05/04/2024) Active Problems Problem Noted Date Diagnosed Date [...] 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 06/27/2018 technician terminal and repeater (current) use of insulin 10/27/2017 History of [...] as of this encounter (statuses as of 05/04/2024) Resolved Problems Problem Noted Date Diagnosed Date [...] as of this encounter (statuses as of 05/04/2024) Immunizations Name Administration Dates Next Due COVID-19 mRNA, LNP-s, No Pre serve, 2-Dose Series (Heartbeat) 03/10/2021,06/07/2020,05/17/2020 COVID-19, LNP-s, No Preserve , Chandler-sucrose, [...] encounter Miscellaneous Notes * Telephone Encounter - Judith Rios RN - 05/04/2024 10:05 AM EST Spoke with RAMIREZ Fuentes Patient D/C from [facility] yesterday,reoccurring glioblastoma,2 brain surgeries, spouse only caregiver currently (family supposed to obtain additional caregiver services from [facility]) Patient unable to get out to PCP office for follow up Patient new [facility] (RNCM HV scheduled 05/08 , provider scheduled 06/25/24 Rain requesting earlier [facility] provider for JOSELIN TT to oliver romero will also send to scheduling FYI care teams Please contact scheduling with appt requests...thank you documented in this encounter Plan of Treatment Upcoming Encounters Date Type Department Care Team (Late st Contact Info) Description 05/05/2024 9:45 AM EST Scheduled Telephone [facility] [place], [address] [place] [address] [facility], Nurse [address] [place] [address] 05/08/2024 12:30 PM EST Home Visit [facility], [facility] [address] [place] [address] Betzy Vega, HECTOR [address] [place] [address] 06/25/2024 9:00 AM EDT Home Visit [facility] [place], [facility] [address] [place] [address] Oliver Romero PA-C [address] [place] [address] Scheduled Procedures Name Priority Associated Diagnoses Date/Ti me COLONOSCOPY FLEXIBLE PROXIMAL DIAGNOSTIC Recall History of colonic polyps ESOPHAGOGASTRODUODENOSCOPY ( EGD), FLEXIBLE, TRANSORAL, DIAGNOSTIC Recall Hedrcik's esophagus Health Maintenance Due Date Last Done Comments Adult Wellness Visit 2014 Hedrick's Esophagus Surveilance 09/27/2021 09/27/2018, 09/27/2018, 06/06/2015, Additional history exists Diabetic Eye Exam 05/17/2024 05/17/2023, , 03/15/2023, Additional history exists Diabetic Foot Exam 05/18/2024 05/18/2023, 0 06/11/2022, 08/12/2021, Additional history exists COVID-19 Vaccine ( season) 2024 01/17/2024, 03/08/2023, 04/13/2022, Additional history exists HbA1c 07/30/2024 01/31/2024, 10/20, [...] Completed 12/29/2023, 12/07/2022, 12/10/2021, Additional history exists HPV (Gardasil) Vaccine Aged Out No lo nger eligible based on patient's age to complete this topic Hepatitis B Vaccine Aged Out No longe r eligible based on patient's age to complete this topic MENINGOCOCCAL (MENACTRA/MENVEO) Aged Out No longer eligible based on patient's age to complete this topic Meningitis B Vaccine (Bexsero/Trumemba) Aged Out No longer eligible based on patient's age to complete this topic documented as of this encounter Medical Devices Implanted Type Area Api Product Manager Device Identifier Shelf Expiration Date Model / Serial / Lot Graft Lyoplant 5.0x5.0cm 2x2 - [id number] Implanted:Qty : 1 on 06/24/2020 by Madi Kaur MD at OR [facility] Right: Head B ALICEA : AUTUMNCUSHIVANI 11/18/2024 [id number] / / [id number] Graft Lyoplant 5.0x5.0cm 2x2 - [id number] Implanted:Qty : 1 on 06/24/2020 by Madi Kaur MD at OR [facility] B ALICEA : AUTUMNCULACleo [id number] 11/18/2024 [id number] / [id number] / [id number] Graft Lyoplant 5.0x5.0cm 2x2 - [id number] Implanted:Qty : 1 on 06/24/2020 by Madi Kaur MD at OR [facility] Right: Head B ALICEA : AESCULACleo 06/24/2020 [id number] / / [id number] Graft Lyoplant 5.0x5.0cm 2x2 - [id number] Implanted:Qty : 1 on 06/24/2020 by Madi Kaur MD at OR [facility] B ALICEA : AUTUMNJOANN [id number] 11/18/2024 [id number] / [id number] / [id number] Plate Ti Lo Pro Str 2h 421.502 - [id number] Implanted:Qty : 2 on 06/24/2020 by Madi Kaur MD at OR [facility] Right: Head SYNTHES MAXILLOFACIAL 421.502 / / Plate Bx Ti [id number] 421.521 - [id number] Implanted:Qty : 1 on 06/24/2020 by Madi Kaur MD at OR [facility] Right: Head SYNTHES MAXILLOFACIAL 421.521 / / Screw Ti Lo Pro Sd 4mm 400.834 - [id number] Implanted:Qty : 7 on 06/24/2020 by Madi Kaur MD at OR [facility] Right: Head SYNTHES MAXILLOFACIAL 400.834 / / [...] Agents on File Name Relationship Healthcare Agent [facility] Shira Lam Spouse Health Care Agent Care Teams Manufacturing Systems Engineer Relationship Specialty Start Date End Date Apolinar Wayne DO [address] [place] [address] PCP - General Internal Medicine 11/15/23 documented as of this encounter
--- OUTSIDE RECORDS SUMMARY | 2024-05-06 12:22 | External Medical Summary | Summary of Care ---
Author Name Unknown Organization [facility] Address [address] [place] [address] Phone [phone] Care Team Providers Care Interactive Media Marketing Director Name Role Phone Apolinar aWyne DO Primary Care Provider [phone] Reason for Visit * Reason Onset Date Comments Hospital Follow-Up 05/05/2024 Encounter Details Date Type Department Care Team (Late st Contact Info) Description 05/05/2024 9:45 AM EST Scheduled Telephone [facility], [address] [address] [facility], Nurse [address] [address] Allergies Active Allergy Reactions Criticality Noted Date Comments Erythromycin 07/02/1998 GI upset Guaifenesin & Derivatives 03/18/1997 nucofed documented as of this encounter (statuses as of 05/05/2024) Medications BD Pen Needle Altagracia U/F 32G [...] as of this encounter (statuses as of 05/05/2024) Active Problems Problem Noted Date Diagnosed Date [...] 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 06/27/2018 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 Outbound call to patient for hospital follow up. Admitted to [facility] 04/29 - 05/03/24 Spoke with patient's spouse Aimee extensively. She is tearful and expresses concern with caregiving responsibilities. Reports sons have hired caregivers but hours are limited. Pt was on hospice briefly prior to most recent hospital admission but family did not feel hospice was appropriate at this time. Discussed patient's wishes and encouraged spouse to involve pt and children in a conversation to help pt express his wishes. Pt is in bed with limited mobility. Aimee reports "bed sores" on buttocks. Educated on use of barrier cream and q2 hour repositioning. Declined visit today due to weather and poor travel conditions. Offered home visit for 05/06/2024, spouse states she will call if she feels an acute visit is neededbut does not want to schedule at this time. Provided with [facility] contact information. Aware home visit with RAMIREZ Bo is scheduled for 05/08 @ 1230pm for re-enrollment. documented in this encounter Plan of Treatment Upcoming Encounters Date Type Department Care Team (Late st Contact Info) Description 05/08/2024 8:00 AM EST Telemedicine Hematology/Oncology [facility] [address] [place] [address] Fernando Solo MD [address] [place] [address] 05/08/2024 12:30 PM EST [facility] Visit [facility] [place], [facility] [address] [facility] [place] [address] Betzy Vega, HECTOR [address] [place] [address] 06/25/2024 9:00 AM EDT [facility] Visit [facility] [place], [facility] [address] [place] [address] Franck Romero PA-C [address] [place] [address] Scheduled Procedures Name Priority Associated Diagnoses Date/Ti [...] this encounter Medical Devices Implanted Type Area Real Estate Services Coordinator Device Identifier Shelf Expiration Date Model / Serial / Lot Graft Lyoplant 5.0x5.0cm 2x2 - [id number] Implanted:Qty : 1 on 06/24/2020 by Madi Kaur MD at [place] [facility] [place] [facility] Right: Head B ALICEA : AUTUMNCULACleo 11/18/2024 [id number] / / [id number] Graft Lyoplant 5.0x5.0cm 2x2 - [id number] Implanted:Qty : 1 on 06/24/2020 by Madi Kaur MD at OR [facility] [place] B ALICEA : AESCULACleo [id number] 11/18/2024 [id number] / [id number] / [id number] Graft Lyoplant 5.0x5.0cm 2x2 - [id number] Implanted:Qty : 1 on 06/24/2020 by Madi Kaur MD at OR [facility] [place] Right: Head B ALICEA : AESCULAP 06/24/2020 [id number] / / [id number] Graft Lyoplant 5.0x5.0cm 2x2 - [id number] Implanted:Qty : 1 on 06/24/2020 by Madi Kaur MD at OR [facility] [place] B ALICEA : AESCULAP [id number] 11/18/2024 [id number] / [id number] / [id number] Plate Ti Lo Pro Str 2h 421.502 - [id number] Implanted:Qty : 2 on 06/24/2020 by Madi Kaur MD at OR [facility] [place] Right: Head SYNTHES MAXILLOFACIAL 421.502 / / Plate Bx Ti [id number] 4h 421.521 - [id number] Implanted:Qty : 1 on 06/24/2020 by Madi Kaur MD at OR [facility] [place] Right: Head SYNTHES MAXILLOFACIAL 421.521 / / Screw Ti Lo Pro Sd 4mm 400.834 - [id number] Implanted:Qty : 7 on 06/24/2020 by Madi [...] Agents on File Name Relationship Healthcare Agent Replaced By [facility] Communication Aimee Lam Spouse Health Care Agent Care Teams Interactive Media Marketing Director Relationship Specialty Start Date End Date Apolinar Wayne DO [address] [place] [address] PCP - General Internal Medicine 11/15/23 documented as of this encounter
--- OUTSIDE RECORDS SUMMARY | 2024-05-06 12:22 | External Medical Summary | Summary of Care ---
Author Name Unknown Organization [facility] Address [address] [place] [address] Phone [phone] Care Team Providers Care Termite Treater Helper Name Role Phone Apolinar Wayne DO Primary Care Provider Reason for Visit * Reason Onset Date Comments [facility]: Maintenance 05/04/2024 Encounter Details Date Type Department Care Team (Late st Contact Info) Description 05/04/2024 Telephone [facility], [place] [address] [place] [address] Judith Rios, RN [address] [place] [address] [facility]: Maintenance Allergies [...] 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 yesterday,reoccurring glioblastoma,2 brain surgeries, spouse only caregiver currently (family supposed to obtain additional caregiver services from [facility]) Patient unable to get out to PCP office for follow up Patient new [facility] (RNCM HV scheduled 05/08 , provider scheduled 06/25/24 Rain requesting earlier [facility] provider for JOSELIN TT to oliver romero will also send to scheduling FYI care teams Please contact scheduling with appt requests...thank you documented in this encounter Plan of Treatment Upcoming Encounters Date Type Department Care Team (Late st Contact Info) Description 05/05/2024 9:45 AM EST Scheduled Telephone [facility] [place], [address] [place] [address] [facility], Nurse [address] [place] [address] 05/08/2024 12:30 PM EST [facility] Visit [facility], [facility] [address] [place] [address] Betzy Vega, HECTOR [address] [place] [address] 06/25/2024 9:00 AM EDT [facility] [place], [facility] [address] [place] [address] Oliver Romero PA-C [address] [place] [address] Scheduled Procedures Name Priority Associated Diagnoses Date/Ti [...] this encounter Medical Devices Implanted Type Area Line Repairer Device Identifier Shelf Expiration Date Model / Serial / Lot Graft Lyoplant 5.0x5.0cm 2x2 - [id number] Implanted:Qty : 1 on 06/24/2020 by Madi Kaur MD [place] [facility] [place]: Head B ALICEA : AUTUMNCUSHIVANI 11/18/2024 [id number] / / [id number] Graft Lyoplant 5.0x5.0cm 2x2 - [id number] Implanted:Qty : 1 on 06/24/2020 by Madi Kaur MD at [place] [facility] B ALICEA : AUTUMNCULACleo [id number] 11/18/2024 [id number] / [id number] / [id number] Graft Lyoplant 5.0x5.0cm 2x2 - [id number] Implanted:Qty : 1 on 06/24/2020 by Madi Kaur MD at [place] [facility] Right: Head B ALICEA : AESCULACleo 06/24/2020 [id number] / / [id number] Graft Lyoplant 5.0x5.0cm 2x2 - [id number] Implanted:Qty : 1 on 06/24/2020 by Madi Kaur MD at [place] [facility] B ALICEA : AUTUMNJOANN [id number] 11/18/2024 [id number] / [id number] / [id number] Plate Ti Lo Pro Str 2h 421.502 - [id number] Implanted:Qty : 2 on 06/24/2020 by Madi Kaur MD at [place] [facility] Right: Head SYNTHES MAXILLOFACIAL 421.502 / / Plate Bx Ti [id number] 4h 421.521 - [id number] Implanted:Qty : 1 on 06/24/2020 by Madi Kaur MD at [place] [facility] Right: Head SYNTHES MAXILLOFACIAL 421.521 / / Screw Ti Lo Pro Sd 4mm 400.834 - [id number] Implanted:Qty : 7 on 06/24/2020 by Madi [...] Agents on File Name Relationship Healthcare Agent [facility] Shira Lam Spouse Health Care Agent Care Teams Termite Treater Helper Relationship Specialty Start Date End Date Apolinar Wayne DO [address] [facility] [place] [address] PCP - General Internal Medicine 11/15/23 documented as of this encounter
--- OUTSIDE RECORDS SUMMARY | 2024-05-06 12:22 | External Medical Summary | Summary of Care ---
Author Name Unknown Organization [facility] Address [address] [place] [address] Phone [phone] Care Team Providers Care Network Control Operators Supervisor Name Role Phone Apolinar Wayne DO Primary Care Provider [phone] Reason for Visit * Reason Onset Date Comments FYI 04/23/2024 Encounter Details Date Type Department Care Team (Late st Contact Info) Description 04/23/2024 Telephone Family Practice [address], [place] [address] [place] [address] Apolinar Wayne DO [address] [place], [place] [id number] FYI Allergies Active Allergy Reactions Criticality Noted [...] depressive disorder without prior episode ([facility]),PTSD (post-traumatic stress disorder) Take 1 Tablet by mouth in the morning. 100 Tablet 3 02/04/20 24 2:51 PM EST Active Pantoprazole Sodium 40 MG Oral Tablet [...] 10 mL 02/20/20 24 4:13 PM EST 12/02/2 024 Active Multiple Vitamins Oral Tablet Take [...] by mouth 2 times a day. Active Diclofenac Sodium 1 % External Gel (Voltaren) APPLY TOPICALLY TO AFFECTED AREA 3 TIMES A DAY -- TO HANDS, BILATERALLY FOR ARTHRITIC PAIN 200 g 5 10/26/19 24 11:48 AM EDT 024 2024 Ondansetron 4 MG Oral Tablet Disintegrating (Zofran) [...] mRNA, LNP-s, No Pre serve, 2-Dose Series ([employer]) 03/10/2021,06/07/2020,05/17/2020 COVID-19, LNP-s, No Preserve , Chandler-sucrose, Ages 12+ (Pfizer) 11/17/2021 COVID-19, MRNA-LNP, PF, 30 M CG/0.3 mL, 12 YRS AND ABOVE, IM (PFIZER-Comirnaty) 01/17/2024,03/08/2023 Covid-19, Mrna, Lnp-s, Pf, B ivalent, 30 Mcg, IM, 12 yrs and above ([employer]) 04/13/2022 H1N1 2009 Influenza, IM 12/10/2019,04/01/2009 Pneumococcal [...] Telephone Encounter - Amber Noe OSA - 05/04/2024 9:26 AM EST Called unable to leave MV * Telephone Encounter - Rain Yañez RN - 05/04/2024 9:13 AM EST Pt DC from [facility] yesterday, 05/03/24. Home with home health. NOT hospice * Telephone Encounter - Fernando Solo MD - 05/02/2024 12:28 PM EST I reviewed brain MRI on 05/01/2024 at [facility] and it was compared with the previous brain MRI done at [facility] on 04/11/2024. -abnormal enhancing tissue at the margin of the previously resected glioma in the right middle cranial fossa measuring about 3.3 x 1.6 x 1.1 cm another smaller enhancement measuring about 9 mm. Overall it is in the similar in the size in the extent when compared with the recent MRI on 04/11/2024. No other new findings noted. I can see him upon his discharge from the hospital. (telemedicine visit would be okay). * Telephone Encounter - Jefferson Alvarado RN - 05/01/2024 12:[address] Vinay cochran regarding update on patient, when would you like follow up scheduled once he is discharged from [facility]. This will likely need to be via telehealth if you're agreeable to that. * Telephone Encounter - Rain Yañez RN - 05/01/2024 12:03 PM EST Spoke to youngest son, Ulysses, at length: Ulysses gave update on his father. Doing well at [facility] per son. Has "really perked up." He is having episodes of confusion and disorientation, but is also perfectly lucid at other times. Per [facility] nurse notes, he is A&O x1-4 dependent on the time of day. Discussed updated plan of care and discussed swallowing study. Reported to Ulysses that a feeding tubewas discussed with Denis because he is having silent aspiration as per the video study done. Educated of risk of aspiration and potential complications. He verbalized understanding and states that his dad does not want a feeding tube at this point, but that may change. He was curious what he heard from other family members about MRI from Apr 11 showing swelling/scar tissues vs. Tumor re growth. Reported to Ulysses that the report from [facility] in March states tumor regrowth. I advised Ulysses that if they would want another brain MRI to rule out tumor re-growth vs. Swelling of tissue, that it is easier to get it done while he is an inpatient at [facility] vs in the outpatient setting. Advised him to discuss this with doctors at [facility]. PT met with patient in hospital yesterday (04/30/24); did PT in the bed only for approx 45 minutes. Ulysses said his father tolerated it well. [facility] states 15 minutes of PT was performed, marshanote, "Supine B LE TE performed c AAROM required on R LE due to poor tolerance and overall weakness. Pt. performs 10x2 on left and 8x1 on R before unable to redirect to focus on task at hand...dependent x1 person assist for sitting up at side of bed and max dependence to maintain seated position onend of bed. Pt felt unsafe/unable to attempt any transfer at that time" Patient was to have an appt at [facility] tomorrow- which he will not be attending- and Ulysses is unsure at this point if it will be rescheduled. I did advise that if they continue to seek a 3rd opinion, out of the [facility] network, so confirm it would be covered by Denis's insurance. Told Ulysses that registration at any facility would be able to determine if the insurance is taken there or not; he verbalized understanding. Ulysses is working on coordinating home care with [facility]--ideally they would want: two nurse visits/week, aide visits a couple times a week, PT to be coming twice a week. He did not say if additional caregivers would be hired. Per Ulysses, IP CM is working with [employer] to change out paperwork on equipment that Denis has at home from hospice, and just transfer it to [facility]'s name. This is being managed by [facility] and [facility]. Dr. Solo- no follow up plan as of now. Ulysses states he will follow up with oncology office after DCfrom [facility]. Reported they will plan to do a telehealth appt to discuss with Dr. Solo about next steps (continue chemo, other/alternative therapies, etc.) He said he does realize his father has a terminal illness, but that hospice is not appropriate at this time. States his father agrees with this. He did state that his mother will frequently change her mind, and that can make things more difficult. For example, they were definite on using [facility], and then this morning she suggested using [facility] home health again. Once discharged from [facility], patient will be transported via litter van (Ulysses aware this is OOP expense). Referral was officially placed to [facility] by IP CM. In addition, a referral to [facility] has beenplaced. Ulysses was appreciative for all the coordination being done for his dad. This CM will continue to follow. Ulysses will update [address] office if/when new appts are made for a 3rd opinion. * Telephone Encounter - Rain Yañez RN - 04/30/2024 10:10 AM EST Spoke to Aimee at length. She confirmed that patient is not to be enrolled in hospice any longer. Denis is still at [facility], awaiting PT/OT evals. Still on aspiration precautions and thickened liquids. He has not gotten out of bed since admission on Thursday 04/27. PT has been around to talk to Denis,but not fully evaluate him. Aimee says "Gilbert is doing much better." Aimee said that Ulysses, their youngest son, spoke to [facility] to stop all hospice services. Aimee and the hospitalist are stating all that Gilbert has undergone in the last 10 days-2 weeks is results of the chemo, Lumostine, he received. "Everything the doctor at the hospital listed as possible side effect from that chemo, Gilbert had." Aimee is fully aware she is no longer able to care for Gilbert at home. Her children are not able to care for him "they have to work. They can stop in every day or so, but no they cannot help." Aimee is still defiant in no shelter placement. Ideally, she wants (and states her boys and Gilbert wants) to get him back into [facility]. At this time, no referral has been made to [facility]. I did reeducate Aimee the requirements for insurance to cover inpatient rehab stays. At this time, I said, Gilbert does not meet those requirements if he stays at this status of not being able to get out of bed. If he does not progress with PT/OT in the hospital, he will most likely not qualify for inpatient rehab services. At that point, Aimee said she is not sure what they would do. States Ulysses has been in contact with [facility] care to get more additional care givers. She does not think she would need care givers over night, just help in the mornings and during the day. Aimee was told that the brain MRI from March only showed swelling from the tumor site, not actualregrowth of the tumor. She said the hospitalist at [facility] would get another [facility] neurologist to re-read the scan and interpret it. 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 I told her that hospice has been stopped, [facility] would be contacting her to set pharmacy picking tech of equipment. I told Aimee that if he is discharged home, at that point new DME can be arranged to be sent to the house and it would be covered by insurance at that time. She verbalized understanding. Aimee was curious if Dr. Wayne was getting the updates about Gilbert and I said, yes, I am keeping him and the clinic staff abreast of the situation. Aimee was given my direct phone # and she knows to contact me with any additional questions/concerns. This CM called [facility] with consent of Aimee to let them know he is to be off hospice. [employer] Operator said they would contact family to arrange pharmacy picking tech of DME. * Telephone Encounter - Nelsy Almanzar LPN - 04/30/2024 8:27 AM EST Please see MyG. * Telephone Encounter - Rain Yañez RN - 04/27/2024 1:30 PM EST Called and spoke to Aimee, patient's . [facility] health agency has started for additional personal care aides. She is angry with care Gilbert received at [facility]. I validated her feelings. She states they [...] not know that his reached out to [facility]. Aimee said they have not told [facility] about reaching out to [facility] and looking intoalternative therapies. Denis says [...] than I do. Advised Aimee to contact [facility]- she states she will. I advised [...] Denis said he did not like the fan installer that came form hospice. No answer given if they had reached out to their person holiness person. Spoke to Dr. Wayne- gave update on phone call; advised Mike BANEGAS might be able to do in person eval, but unsure if that can happen when hospice is involved. Aimee then called back to speak to at approx [phone]. This called Aimee back; she said her sons [...] to take hime by herself. She understood. VITA updated PCP & office staff. * Telephone Encounter - Sadie Madera LPN - 04/26/2024 1:19 PM EST Called son and Aimee, Please sign will send email * Telephone Encounter - Rain Yañez RN - 04/23/2024 3:11 PM EST [facility] Aimee; left voicemail. * Telephone Encounter - Apolinar Wayne DO - 04/23/2024 3:05 PM EST Start Zofran ODT 4 mg three times a day as needed for Nausea * Telephone Encounter - Rain Yañez RN - 04/23/2024 2:46 PM EST CM call to mahin Arora. [facility] care will be coming [...] Team (Late st Contact Info) Description 05/08/2024 12:30 PM EST [facility] [place], [facility] [address] [place] [address] Betzy Vega RN [address] [place] [address] 06/25/2024 9:00 AM EDT [facility] [address] [place] [address] Franck Romero PA-C [address] [place] [address] Scheduled Procedures Name Priority Associated Diagnoses Date/Ti [...] this encounter Medical Devices Implanted Type Area Pulmonary Specialist Device Identifier Shelf Expiration Date Model / Serial / Lot Graft Lyoplant 5.0x5.0cm 2x2 - [id number] Implanted:Qty : 1 on 06/24/2020 by Madi Kaur MD at [facility] Right: Head B ALICEA : AESCULAP 11/18/2024 [id number] / / [id number] Graft Lyoplant 5.0x5.0cm 2x2 - [id number] Implanted:Qty : 1 on 06/24/2020 by Madi Kaur MD at [place] [facility] [place] B ALICEA : AESCULAP [id number] 11/18/2024 [id number] / [id number] / [id number] Graft Lyoplant 5.0x5.0cm 2x2 - [id number] Implanted:Qty : 1 on 06/24/2020 by Madi Kaur MD at OR [facility] [place] Right: Head B ALICEA : AESCULAP 06/24/2020 [id number] / / [id number] Graft Lyoplant 5.0x5.0cm 2x2 - [id number] Implanted:Qty : 1 on 06/24/2020 by Madi Kaur MD at OR [facility] [place] B ALICEA : AESCULAP [id number] 11/18/2024 [id number] / [id number] / [id number] Plate Ti Lo Pro Str 2h 421.502 - [id number] Implanted:Qty : 2 on 06/24/2020 by Madi Kaur MD at OR [facility] [place] Right: Head SYNTHES MAXILLOFACIAL 421.502 / / Plate Bx Ti [id number] 4h 421.521 - [id number] Implanted:Qty : 1 on 06/24/2020 by Madi Kaur MD at OR [facility] [place] Right: Head SYNTHES MAXILLOFACIAL 421.521 / / Screw Ti Lo Pro Sd 4mm 400.834 - [id number] Implanted:Qty : 7 on 06/24/2020 by Madi Kaur MD at OR [facility] [place] Right: Head SYNTHES MAXILLOFACIAL [...] Agents on File Name Relationship Healthcare Agent Relationspr p Communication Aimee Lam Spouse Health Care Agent Care Teams Network Control Operators Supervisor Relationship Specialty Start Date End Date Apolinar Wayne DO [address] [place] [place] [address] PCP - General Internal Medicine 11/15/23 documented as of this encounter
--- OUTSIDE RECORDS SUMMARY | 2024-05-06 12:22 | External Medical Summary | Summary of Care ---
Author Name Unknown Organization [facility] Address [address] [place] [address] Phone [phone] Care Team Providers Care Route Manager Name Role Phone Apolinar Wayne DO Primary Care Provider [phone] Reason for Visit * Reason Onset Date Comments Appointment 05/03/2024 Encounter Details Date Type Department Care Team (Late st Contact Info) Description 05/03/2024 Telephone [facility] [place] [address] [place] [address] Christiano Ladd, KODY [address] [place] [address] Appointment (/) Allergies Active Allergy Reactions Criticality Noted Date Comments Erythromycin 07/02/1998 GI upset Guaifenesin & Derivatives 03/18/1997 nucofed documented as of this encounter (statuses as of 05/03/2024) Medications BD Pen Needle Altagracia U/F 32G [...] as of this encounter (statuses as of 05/03/2024) Active Problems Problem Noted Date Diagnosed Date [...] as of this encounter (statuses as of 05/03/2024) Resolved Problems Problem Noted Date Diagnosed Date [...] as of this encounter (statuses as of 05/03/2024) Immunizations Name Administration Dates Next Due COVID-19 mRNA, LNP-s, No Pre serve, 2-Dose Series (KiteDesk) 03/10/2021,06/07/2020,05/17/2020 COVID-19, LNP-s, No Preserve , Chandler-sucrose, [...] encounter Miscellaneous Notes * Telephone Encounter - Christiano Ladd OSA - 05/03/2024 1:12 PM EST Date Scheduled: 05/03 Time: 1pm In Person RNCM Special Instructions: enrollment appts scheduled documented in this encounter Plan of Treatment Upcoming Encounters Date Type Department Care Team (Late st Contact Info) Description 05/08/2024 12:30 PM EST Home Visit [facility] [address] [address] Betzy Vega RN [address] [address] 06/25/2024 9:00 AM EDT Home Visit [facility] [address] [address] Franck Romero PA-C [address] [address] Scheduled Procedures Name Priority Associated Diagnoses Date/Ti [...] encounter Medical Devices Implanted Type Area Sales Solutions Associate Device Identifier Shelf Expiration Date Model / Serial / Lot Graft Lyoplant 5.0x5.0cm 2x2 - [id number] Implanted:Qty : 1 on 06/24/2020 by Madi Kaur MD at [place] [facility] Right: Head B ALICEA : AESCULAP 11/18/2024 [id number] / / [id number] Graft Lyoplant 5.0x5.0cm 2x2 - [id number] Implanted:Qty : 1 on 06/24/2020 by Madi Kaur MD at [place] [facility] B ALICEA : AESCULAP [id number] 11/18/2024 [id number] / [id number] / [id number] Graft Lyoplant 5.0x5.0cm 2x2 - [id number] Implanted:Qty : 1 on 06/24/2020 by Madi Kaur MD at [place] [facility] [place] Right: Head B ALICEA : AESCULAP 06/24/2020 [id number] / / [id number] Graft Lyoplant 5.0x5.0cm 2x2 - [id number] Implanted:Qty : 1 on 06/24/2020 by Madi Kaur MD at [place] [facility] [place] B ALICEA : AESCULAP [id number] 11/18/2024 [id number] / [id number] / [id number] Plate Ti Lo Pro Str 2h 421.502 - [id number] Implanted:Qty : 2 on 06/24/2020 by Madi Kaur MD at [place] [facility] [place] Right: Head SYNTHES MAXILLOFACIAL 421.502 / / Plate Bx Ti [id number] 4h 421.521 - [id number] Implanted:Qty : 1 on 06/24/2020 by Madi Kaur MD at [place] [facility] [place] Right: Head SYNTHES MAXILLOFACIAL 421.521 / / Screw Ti Lo Pro Sd 4mm 400.834 - [id number] Implanted:Qty : 7 on 06/24/2020 by Madi Kaur MD at [place] [facility] [place] Right: Head SYNTHES MAXILLOFACIAL 400.834 [...] Relationship Healthcare Agent [facility] Communication Aimee Lam Spouse Health Care Agent Care Teams Route Manager Relationship Specialty Start Date End Date Apolinar Wayne DO [address] [place] [address] PCP - General Internal Medicine 11/15/23 documented as of this encounter
--- OUTSIDE RECORDS SUMMARY | 2024-05-06 12:22 | External Medical Summary | Summary of Care ---
Author Name Unknown Organization [facility] Address [address] [place] [address] Phone [phone] Care Team Providers Care Machine Fixer Name Role Phone Apolinar Wayne DO Primary Care Provider [phone] Reason for Visit * Reason Onset Date Comments Hospital Follow-Up 05/05/2024 Encounter Details Date Type Department Care Team (Late st Contact Info) Description 05/05/2024 9:45 AM EST Scheduled Telephone [facility], [address] [address] [facility], Nurse [address] [address] Allergies Active Allergy Reactions Criticality Noted Date [...] mRNA, LNP-s, No Pre serve, 2-Dose Series (COPsync) 03/10/2021,06/07/2020,05/17/2020 COVID-19, LNP-s, No Preserve , Chandler-sucrose, [...] patient for hospital follow up. Admitted to [facility] 04/29 - 05/03/24 Spoke with patient's [...] to schedule at this time. Provided with [facility] contact information. Aware home visit with RAMIREZ Bo is scheduled for 05/08 @ 1230pm for re-enrollment. documented in this encounter Plan of Treatment Upcoming Encounters Date Type Department Care Team (Late st Contact Info) Description 05/08/2024 8:00 AM EST Telemedicine Hematology/Oncology [facility] [address] [facility] [place] [address] Fernando Solo MD [address] [facility] [place] [address] 05/08/2024 12:30 PM EST Home Visit [facility] [place] [address] [facility] [address] [address] Betzy Vega, HECTOR [address] [place] [address] 06/25/2024 9:00 AM EDT Home Visit [facility] [place] [address] [address] Franck Romero PA-C [address] [place] [address] Scheduled Procedures Name Priority Associated Diagnoses Date/Ti [...] this encounter Medical Devices Implanted Type Area Automotive Leasing Sales Representative Device Identifier Shelf Expiration Date Model / Serial / Lot Graft Lyoplant 5.0x5.0cm 2x2 - [id number] Implanted:Qty : 1 on 06/24/2020 by Madi Kaur MD [place] [facility] [place]: Head B ALICEA : AUTUMNCULACleo 11/18/2024 [id number] / / [id number] Graft Lyoplant 5.0x5.0cm 2x2 - [id number] Implanted:Qty : 1 on 06/24/2020 by Madi Kaur MD at [place] [facility] [place] B ALICEA : AESCULACleo [id number] 11/18/2024 [id number] / [id number] / [id number] Graft Lyoplant 5.0x5.0cm 2x2 - [id number] Implanted:Qty : 1 on 06/24/2020 by Madi Kaur MD at [place] [facility] [place] Right: Head B ALICEA : AESCULAP 06/24/2020 [id number] / / [id number] Graft Lyoplant 5.0x5.0cm 2x2 - [id number] Implanted:Qty : 1 on 06/24/2020 by Madi Kaur MD at [place] [facility] B ALICEA : AESCULAP [id number] 11/18/2024 [id number] / [id number] / [id number] Plate Ti Lo Pro Str 2h 421.502 - [id number] Implanted:Qty : 2 on 06/24/2020 by Madi Kaur MD at [place] [facility] [place] Right: Head SYNTHES MAXILLOFACIAL 421.502 / / Plate Bx Ti [id number] 4h 421.521 - [id number] Implanted:Qty : 1 on 06/24/2020 by Madi Kaur MD at [place] [facility] [place] Right: Head SYNTHES MAXILLOFACIAL 421.521 / / Screw Ti Lo Pro Sd 4mm 400.834 - [id number] Implanted:Qty : 7 on 06/24/2020 by Madi [...] on File Name Relationship [facility] Communication Aimee Lam Spouse Health Care Agent Care Teams Machine Fixer Relationship Specialty Start Date End Date Apolinar Wayne DO [address] [place] [address] PCP - General Internal Medicine 11/15/23 documented as of this encounter
--- OUTSIDE RECORDS SUMMARY | 2024-05-06 12:22 | External Medical Summary | Summary of Care ---
Author Name Unknown Organization [facility] Address [address] [place] [address] Phone [phone] Care Team Providers Care Platemaker Name Role Phone Apolinar Wayne DO Primary Care Provider [phone] Reason for Visit * Reason Onset Date Comments FYI 04/23/2024 Encounter Details Date Type Department Care Team (Late st Contact Info) Description 04/23/2024 Telephone Family Practice [address], [place] [address] [place] [address] Apolinar Wayne DO [address], [place] [id number] FYI Allergies Active Allergy Reactions Criticality Noted Date Comments Erythromycin 07/02/1998 GI upset Guaifenesin & Derivatives 03/18/1997 nucofed documented as of this encounter (statuses as of 05/02/2024) Medications BD Pen Needle Altagracia U/F 32G [...] as of this encounter (statuses as of 05/02/2024) Active Problems Problem Noted Date Diagnosed Date [...] as of this encounter (statuses as of 05/02/2024) Resolved Problems Problem Noted Date Diagnosed Date [...] as of this encounter (statuses as of 05/02/2024) Immunizations Name Administration Dates Next Due COVID-19 mRNA, LNP-s, No Pre serve, 2-Dose Series (Onaro) 03/10/2021,06/07/2020,05/17/2020 COVID-19, LNP-s, No Preserve , Chandler-sucrose, Ages 12+ (Pfizer) 11/17/2021 COVID-19, MRNA-LNP, PF, 30 M CG/0.3 mL, 12 YRS AND ABOVE, IM (PFIZER-Comirnaty) 01/17/2024,03/08/2023 Covid-19, Mrna, Lnp-s, Pf, B ivalent, 30 Mcg, IM, 12 yrs and above (Onaro) 04/13/2022 H1N1 2009 Influenza, IM 12/10/2019,04/01/2009 Pneumococcal [...] I reviewed brain MRI on 05/01/2024 at [facility] and it was compared with the previous brain MRI done at [facility] on 04/11/2024. -abnormal enhancing tissue at the [...] up scheduled once he is discharged from [facility]. This will likely need to be via telehealth if you're agreeable to that. * Telephone Encounter - Rain Yañez RN - 05/01/2024 12:03 PM EST Spoke to youngest son, Ulysses, at length: Ulysses gave update on his father. Doing well at [facility] per son. Has "really perked up." He is having episodes of confusion and disorientation, but is also perfectly lucid at other times. 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 I advised Ulysses that if they would want another brain MRI to rule out tumor re-growth vs. Swelling of tissue, that it is easier to get it done while he is an inpatient at [facility] vs in the outpatient setting. Advised him to discuss this with doctors at [facility]. PT met with patient in hospital yesterday (04/30/24); did PT in the bed only for approx 45 minutes. Ulysses said his father tolerated it well. Report in [employer] states 15 minutes of PT was performed, ofnote, "Supine B LE TE performed c AAROM [...] Patient was to have an appt at [facility] tomorrow- which he will not be attending- and Ulysses is unsure at this point if it will be rescheduled. I did advise that if they continue to seek a 3rd opinion, out of the [facility] network, so confirm it would be covered [...] Per Ulysses, IP CM is working with [facility] to change out paperwork on equipment that Denis has at home from hospice, and just transfer it to [place] [facility] name. This is being managed by [facility] and [facility]. Dr. Solo- no follow up plan as of now. Ulysses states he will follow up with oncology office after DCfrom [facility]. Reported they will plan to do a [...] For example, they were definite on using [facility], and then this morning she suggested using [facility] home health again. Once discharged from [facility], patient will be transported via litter van (Ulysses aware this is OOP expense). Referral was officially placed to [facility] by IP CM. In addition, a referral to [facility] has beenplaced. Ulysses was appreciative for [...] hospice any longer. Denis is still at [facility], awaiting PT/OT evals. Still on aspiration precautions and thickened liquids. He has not gotten out of bed since admission on Thursday 04/27. PT has been around to talk to Denis,but not fully evaluate him. Aimee says "Gilbert is doing much better." Aieme said that Ulysses, their youngest son, spoke to [facility] to stop all hospice services. Aimee and the hospitalist are stating all that Gilbret has undergone in the last 10 days-2 [...] help." Aimee is still defiant in no prison placement. Ideally, she wants (and states her boys and Gilbert wants) to get him back into [facility]. At this time, no referral has been made to [facility]. I did reeducate Aimee the requirements [...] States Ulysses has been in contact with [facility] care to get more additional care givers. She does not think she would need care givers over night, just help in the mornings and during the day. Aimee was told that the brain MRI from March only showed swelling from the tumor site, not actualregrowth of the tumor. She said the hospitalist at [facility] would get another [facility] neurologist to re-read the scan and interpret it. 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 I told her that hospice has been stopped, [facility] would be contacting her to set metal pickling equipment operator of equipment. I told Aimee that if [...] with any additional questions/concerns. This CM called [facility] with consent of Aimee to let them know he is to be off hospice. Orthotics Technician said they would contact family to arrange metal pickling equipment operator of DME. * Telephone Encounter - Nelsy Almanzar LPN - 04/30/2024 8:27 AM EST Please see MyG. * Telephone Encounter - Rain Yañez RN - 04/27/2024 1:30 PM EST Called and spoke to Aimee, patient's . [facility] has started for additional personal care aides. She is angry with care Gilbert received at [facility]. I validated her feelings. She states [...] not know that his reached out to [facility]. Aimee said they have not told [facility] about reaching out to [facility] and looking intoalternative therapies. Denis says he [...] than I do. Advised Aimee to contact [facility]- she states she will. I advised [...] agency to discuss this; she verbalized understanding. to ask Dr. Wayne about telehealth for PT eval. Asked if they had reached out for spiritual care-- Denis said he did not like the rip saw operator that came form hospice. No answer given if they had reached out to their person christianity person. Spoke to Dr. Wayne- gave update on phone call; advised [facility] [place]IE might be able to do in person [...] LPN - 04/26/2024 1:19 PM EST Called mahin and Aimee, Please sign will send email * Telephone Encounter - Rain Yañez RN - 04/23/2024 3:11 PM EST [facility] Aimee; left voicemail. * Telephone Encounter - Apolinar Wayne DO - 04/23/2024 3:05 PM EST Start Zofran ODT 4 mg three times a day as needed for Nausea * Telephone Encounter - Rain Yañez RN - 04/23/2024 2:46 PM EST CM call to mahin Ar[facility]. [facility] care will be coming [...] this encounter Medical Devices Implanted Type Area Transportation Manager Device Identifier Shelf Expiration Date Model / Serial / Lot Graft Lyoplant 5.0x5.0cm 2x2 - [id number] Implanted:Qty : 1 on 06/24/2020 by Madi Kaur MD at [place] [facility] [place] Right: Head B ALICEA : AESCULAP 11/18/2024 [id number] / / [id number] Graft Lyoplant 5.0x5.0cm 2x2 - [id number] Implanted:Qty : 1 on 06/24/2020 by Madi Kaur MD at [place] [facility] B ALICEA : AESCULAP [id number] 11/18/2024 [id number] / [id number] / [id number] Graft Lyoplant 5.0x5.0cm 2x2 - [id number] Implanted:Qty : 1 on 06/24/2020 by Madi Kaur MD at [place] [facility] [place] Right: Head B ALICEA : AESCULAP 06/24/2020 [id number] / / [id number] Graft Lyoplant 5.0x5.0cm 2x2 - [id number] Implanted:Qty : 1 on 06/24/2020 by Madi Kaur MD at [place] [facility] [place] B ALICEA : AESCULAP [id number] 11/18/2024 [id number] / [id number] / [id number] Plate Ti Lo Pro Str 2h 421.502 - [id number] Implanted:Qty : 2 on 06/24/2020 by Madi Kaur MD at [place] [facility] [place] Right: Head SYNTHES MAXILLOFACIAL 421.502 / / Plate Bx Ti [id number] 4h 421.521 - [id number] Implanted:Qty : 1 on 06/24/2020 by Madi Kaur MD at [place] [facility] [place] Right: Head SYNTHES MAXILLOFACIAL 421.521 / / Screw Ti Lo Pro Sd 4mm 400.834 - [id number] Implanted:Qty : 7 on 06/24/2020 by Madi [...] on File Name Relationship Healthcare Agent [facility] Communication Aimee Lam Spouse Health Care Agent Care Teams Platemaker Relationship Specialty Start Date End Date Apolinar Wayne DO [address] [place] [address] PCP - General Internal Medicine 11/15/23 documented as of this encounter
--- OUTSIDE RECORDS SUMMARY | 2024-05-06 12:22 | External Medical Summary | Summary of Care ---
Author Name Unknown Organization [facility] Address [address] [place] [address] Phone [phone] Care Team Providers Care Coutierier Name Role Phone Apolinar Wayne DO Primary Care Provider [phone] Reason for Visit * Reason Onset Date Comments FYI 04/23/2024 Encounter Details Date Type Department Care Team (Late st Contact Info) Description 04/23/2024 Telephone Family Practice [address], [place] [address] [place] [address] Apolinar Wayne DO [address] [place], [place] [phone] FYI Allergies Active Allergy Reactions Criticality Noted [...] mRNA, LNP-s, No Pre serve, 2-Dose Series ([facility]) 03/10/2021,06/07/2020,05/17/2020 COVID-19, LNP-s, No Preserve , Chandler-sucrose, Ages 12+ (Pfizer) 11/17/2021 COVID-19, MRNA-LNP, PF, 30 M CG/0.3 mL, 12 YRS AND ABOVE, IM (PFIZER-Comirnaty) 01/17/2024,03/08/2023 Covid-19, Mrna, Lnp-s, Pf, B ivalent, 30 Mcg, IM, 12 yrs and above ([facility]) 04/13/2022 H1N1 2009 Influenza, IM 12/10/2019,04/01/2009 Pneumococcal [...] Encounter - Rain Yañez RN - 05/04/2024 11:32 AM EST STEPHANIE-- Spoke to [facility] traffic coordinator via [employer] text and phone. Franck Quiroscompa is off today and unable to see patient in near future. She is still trying to coordinate a home provider/ JOSELIN visit due to patient requiring stretcher for transportation. This CM attempted to call home phone- unable to leave VM. * Telephone Encounter - Amber Noe OSA - 05/04/2024 9:26 AM EST Called unable to leave MV * Telephone Encounter - Rain Yañez RN - 05/04/2024 9:13 AM EST Pt DC from [facility] yesterday, 05/03/24. Home with home health. NOT hospice * Telephone Encounter - Fernando Solo MD - 05/02/2024 12:28 PM EST I reviewed brain MRI on 05/01/[address] [facility] and it was compared with the previous brain MRI done at [facility] on 04/11/2024. -abnormal enhancing tissue at the [...] RN - 05/01/2024 12:[address] Solo- stephanie regarding update on patient, when would you like follow up scheduled once he is discharged from [facility]. This will likely need to be via telehealth if you're agreeable to that. * Telephone Encounter - Rain Yañez RN - 05/01/2024 12:03 PM EST Spoke to youngest son, Ulysses, at length: Ulysses gave update on his father. Doing well at [facility] per son. Has "really perked up." He is having episodes of confusion and disorientation, but is also perfectly lucid at other times. Per [facility] nurse notes, he is A&O x1-4 dependent [...] Reported to Ulysses that the report from [facility] in March states tumor regrowth. I advised Ulysses that if they would want another brain MRI to rule out tumor re-growth vs. Swelling of tissue, that it is easier to get it done while he is an inpatient at [facility] vs in the outpatient setting. Advised him to discuss this with doctors at [facility]. PT met with patient in hospital yesterday (04/30/24); did PT in the bed only for approx 45 minutes. Ulysses said his father tolerated it well. Report in [facility] states 15 minutes of PT was performed, [...] Patient was to have an appt at [facility] tomorrow- which he will not be attending- and Ulysses is unsure at this point if it will be rescheduled. I did advise that if they continue to seek a 3rd opinion, out of the [employer] network, so confirm it would be covered by Denis's insurance. Told Ulysses that registration at any facility would be able to determine if the insurance is taken there or not; he verbalized understanding. Ulysses is working on coordinating home care with [facility]--ideally they would want: two nurse visits/week, aide visits a couple times a week, PT to be coming twice a week. He did not say if additional caregivers would be hired. Per Ulysses, ANNMARIE GORMAN is working with [facility] to change out paperwork on equipment that Denis has at home from hospice, and just [facility]. This is being managed by [facility] and [facility]. Dr. Solo- no follow up plan as of now. Ulysses states he will follow up with oncology office after DCfrom [facility]. Reported they will plan to do a [...] For example, they were definite on using [facility], and then this morning she suggested using [facility] home health again. Once discharged from [facility], patient will be transported via litter van (Ulysses aware this is OOP expense). Referral was officially placed to [facility] by IP CM. In addition, a referral to [facility] has beenplaced. Ulysses was appreciative for all [...] hospice any longer. Denis is still at [facility], awaiting PT/OT evals. Still on aspiration precautions and thickened liquids. He has not gotten out of bed since admission on Thursday 04/27. PT has been around to talk to Denis,but not fully evaluate him. Aimee says "Gilbert is doing much better." Aimee said that Ulysses, their youngest son, spoke to [facility] to stop all hospice services. Aimee [...] help." Aimee is still defiant in no detention placement. Ideally, she wants (and states her boys and Gilbert wants) to get him back into [facility]. At this time, no referral has been made to [facility]. I did reeducate Aimee the [...] not sure what they would do. States Arora has been in contact with [facility] care to get more additional care givers. She does not think she would need care givers over night, just help in the mornings and during the day. Aimee was told that the brain MRI from March only showed swelling from the tumor site, not actualregrowth of the tumor. She said the hospitalist at [facility] would get another [facility] neurologist to re-read the scan and interpret it. 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 I told her that hospice has been stopped, [facility] would be contacting her to set hot die picker of equipment. I told Aimee that if [...] with any additional questions/concerns. This CM called [facility] with consent of Aimee to let them know he is to be off hospice. Assistant Manager said they would contact family to arrange hot die picker of DME. * Telephone Encounter - Nelsy Almanzar LPN - 04/30/2024 8:27 AM EST Please see MyG. * Telephone Encounter - Rain Yañez, HECTOR - 04/27/2024 1:30 PM EST Called and spoke to Aimee, patient's . [facility] for additional personal care aides. She is angry with care Gilbert received at [facility]. I validated her feelings. She [...] that his reached out to [facility]. Aimee said they have not told [facility] about reaching out to [facility] and looking intoalternative therapies. Denis says [...] than I do. Advised Aimee to contact [facility]- she states she will. I [...] Denis said he did not like the transformer coil winder that came form hospice. No answer given if they had reached out to their person confucianism person. Spoke to Dr. Wayne- gave update on phone call; advised [facility] [place] might be able to do in person [...] Yañez RN - 04/23/2024 3:11 PM EST [facility] Aimee; left voicemail. * Telephone Encounter - Apolinar Wayne DO - 04/23/2024 3:05 PM EST Start Zofran ODT 4 mg three times a day as needed for Nausea * Telephone Encounter - Rain Yañez RN - 04/23/2024 2:46 PM EST CM call to Ulysses, mahin. [facility] care will be coming to [...] 9:45 AM EST Scheduled Telephone [facility] [place], [facility] [address] [address] [facility] [place] [address] [facility], Nurse [facility] [address] [place] [address] 05/08/2024 8:00 AM EST Telemedicine Hematology/Oncology [facility] [address] [facility] [place] [id number] Fernando Solo MD [address] [facility] [place] [address] 05/08/2024 12:30 PM EST Home Visit [facility] [place], [facility] [address] [place] [address] Betzy Vega, HECTOR [address] [facility] [place] [address] 06/25/2024 9:00 AM EDT Home Visit [facility], [facility] [address] [place] [address] Franck Romero PA-C [address] [place] [address] Scheduled Procedures Name Priority Associated Diagnoses Date/Ti [...] this encounter Medical Devices Implanted Type Area Workforce Management Coordinator Device Identifier Shelf Expiration Date Model / Serial / Lot Graft Lyoplant 5.0x5.0cm 2x2 - [id number] Implanted:Qty : 1 on 06/24/2020 by Madi Kaur MD at [facility] Right: Head B ALICEA : AUTUMNCULAP 11/18/2024 [id number] / / [id number] Graft Lyoplant 5.0x5.0cm 2x2 - [id number] Implanted:Qty : 1 on 06/24/2020 by Madi Kaur MD at [place] [facility] B ALICEA : AESCULAP [id number] 11/18/2024 [id number] / [id number] / [id number] Graft Lyoplant 5.0x5.0cm 2x2 - [id number] Implanted:Qty : 1 on 06/24/2020 by Madi Kaur MD at [place] [facility] Right: Head B ALICEA : AESCULAP 06/24/2020 [id number] / / [id number] Graft Lyoplant 5.0x5.0cm 2x2 - [id number] Implanted:Qty : 1 on 06/24/2020 by Madi Kaur MD at [place] [facility] B ALICEA : AESCULAP [id number] 11/18/2024 [id number] / [id number] / [id number] Plate Ti Lo Pro Str 2h 421.502 - [id number] Implanted:Qty : 2 on 06/24/2020 by Madi Kaur MD at [place] [facility] Right: Head SYNTHES MAXILLOFACIAL 421.502 / / Plate Bx Ti [id number] 4h 421.521 - [id number] Implanted:Qty : 1 on 06/24/2020 by Madi Kaur MD at [place] [facility] Right: Head SYNTHES MAXILLOFACIAL 421.521 / / Screw Ti Lo Pro Sd 4mm 400.834 - [id number] Implanted:Qty : 7 on 06/24/2020 by Madi [...] Lam Spouse Health Care Agent Care Teams Coutierier Relationship Specialty Start Date End Date Apolinar Wayne DO [address] [place] [address] PCP - General Internal Medicine 11/15/23 documented as of this encounter
--- OUTSIDE RECORDS SUMMARY | 2024-05-06 12:22 | External Medical Summary | Summary of Care ---
Author Name Unknown Organization [facility] Address [address] [place] [address] Phone [phone] Care Team Providers Care Small Animal Caretaker Name Role Phone Apolinar Wayne DO Primary Care Provider [phone] Reason for Visit * Reason Onset Date Comments FYI 04/23/2024 Encounter Details Date Type Department Care Team (Late st Contact Info) Description 04/23/2024 Telephone Family Practice [address], [place] [address] [place] [address] Apolinar Wayne DO [address] [place], [place] [phone] FYI Allergies Active Allergy Reactions Criticality Noted [...] goal of less than 7.0% ([facility]) Use as directed every 14 days [...] depressive disorder without prior episode ([facility]),PTSD (post-traumatic stress disorder) Take 1 Tablet [...] mRNA, LNP-s, No Pre serve, 2-Dose Series ([facility]) 03/10/2021,06/07/2020,05/17/2020 COVID-19, LNP-s, No Preserve , Chandler-sucrose, Ages 12+ (Pfizer) 11/17/2021 COVID-19, MRNA-LNP, PF, 30 M CG/0.3 mL, 12 YRS AND ABOVE, IM (PFIZER-Comirnaty) 01/17/2024,03/08/2023 Covid-19, Mrna, Lnp-s, Pf, B ivalent, 30 Mcg, IM, 12 yrs and above ([facility]) 04/13/2022 H1N1 2009 Influenza, IM 12/10/2019,04/01/2009 Pneumococcal [...] I reviewed brain MRI on 05/01/2024 at [facility] and it was compared with the previous brain MRI done at [facility] on 04/11/2024. -abnormal enhancing tissue at [...] his father tolerated it well. [facility] states 15 minutes of PT was performed, [...] Patient was to have an appt at [facility] tomorrow- which he will not be attending- and Ulysses is unsure at this point if it will be rescheduled. I did advise that if they continue to seek a 3rd opinion, out of the [employer] network, so confirm it would be covered [...] Per Ulysses, IP CM is working with [facility] to change out paperwork on equipment that Denis has at home from hospice, and just transfer it to [facility]'s name. This is being managed by [facility] and [facility]. Dr. Solo- no follow up plan [...] For example, they were definite on using [facility], and then this morning she suggested using [facility] home health again. Once discharged from [facility], patient will be transported via litter van (Ulysses aware this is OOP expense). Referral was officially placed to [facility] by IP CM. In addition, a referral to [facility] has beenplaced. Ulysses was appreciative for [...] that Ulysses, their youngest son, spoke to [facility] to stop all hospice services. Aimee [...] help." Aimee is still defiant in no long term placement. Ideally, she wants (and states her boys and Gilbert wants) to get him back into [facility]. At this time, no referral has been made to [facility]. I did reeducate Aimee the requirements [...] States Ulysses has been in contact with [facility] care to get more additional care givers. She does not think she would need care givers over night, just help in the mornings and during the day. Aimee was told that the brain MRI from March only showed swelling from the tumor site, not actualregrowth of the tumor. She said the hospitalist at [facility] would get another [facility] neurologist to re-read the scan and interpret it. 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 I told her that hospice has been stopped, [facility] would be contacting her to set supervisor metal placing of equipment. I told Aimee that if [...] with any additional questions/concerns. This CM called [facility] with consent of Aimee to let them know he is to be off hospice. [employer] said they would contact family to arrange supervisor metal placing of DME. * Telephone Encounter - Nelsy Almanzar LPN - 04/30/2024 8:27 AM EST Please see MyG. * Telephone Encounter - Rain Yañez RN - 04/27/2024 1:30 PM EST Called and spoke to Aimee, patient's . [facility] health agency has started for additional [...] not know that his reached out to [facility]. Aimee said they have not told [facility] about reaching out to [facility] and looking intoalternative therapies. Denis says [...] than I do. Advised Aimee to contact [facility]- she states she will. I advised Aimee [...] Denis said he did not like the procurement specialist that came form hospice. No answer given if they had reached out to their person jewish person. Spoke to Dr. Wayne- gave update [...] Yañez RN - 04/23/2024 3:[address] [facility] Aimee; left voicemail. * Telephone Encounter - Apolinar Wayne DO - 04/23/2024 3:05 PM EST Start Zofran ODT 4 mg three times a day as needed for Nausea * Telephone Encounter - Rain Yañez RN - 04/23/2024 2:46 PM EST CM call to mahin Arora. [facility] care will be coming [...] 12:30 PM EST Home Visit [facility] [place], [facility] [address] [place] [address] Betzy Vega RN [address] [place] [address] 06/25/2024 9:00 AM EDT [facility] Visit [facility] [address] [place] [address] Franck Romero PA-C [address] [place] [address] Scheduled Procedures Name Priority Associated Diagnoses Date/Ti [...] this encounter Medical Devices Implanted Type Area Therapeutic Radiologist Device Identifier Shelf Expiration Date Model / Serial / Lot Graft Lyoplant 5.0x5.0cm 2x2 - [id number] Implanted:Qty : 1 on 06/24/2020 by Madi Kaur MD at [facility] Right: Head B ALICEA : AESCULAP 11/18/2024 [id number] / / [id number] Graft Lyoplant 5.0x5.0cm 2x2 - [id number] Implanted:Qty : 1 on 06/24/2020 by Madi Kaur MD at [place] [facility] B ALICEA : AESCULAP [id number] 11/18/2024 [id number] / [id number] / [id number] Graft Lyoplant 5.0x5.0cm 2x2 - [id number] Implanted:Qty : 1 on 06/24/2020 by Madi Kaur MD at [place] [facility] Right: Head B ALICEA : AESCULAP 06/24/2020 [id number] / / [id number] Graft Lyoplant 5.0x5.0cm 2x2 - [id number] Implanted:Qty : 1 on 06/24/2020 by Madi Kaur MD at [place] [facility] B ALICEA : AESCULAP [id number] 11/18/2024 [id number] / [id number] / [id number] Plate Ti Lo Pro Str 2h 421.502 - [id number] Implanted:Qty : 2 on 06/24/2020 by Madi Kaur MD at [place] [facility] Right: Head SYNTHES MAXILLOFACIAL 421.502 / / Plate Bx Ti [id number] 4h 421.521 - [id number] Implanted:Qty : 1 on 06/24/2020 by Madi Kaur MD at [place] [facility] Right: Head SYNTHES MAXILLOFACIAL 421.521 / / Screw Ti Lo Pro Sd 4mm 400.834 - [id number] Implanted:Qty : 7 on 06/24/2020 by Madi Kaur MD at [place] [facility] Right: Head SYNTHES [...] Agents on File Name Relationship Healthcare Agent Relationsnd p Communication Aimee Lam Spouse Health Care Agent Care Teams Small Animal Caretaker Relationship Specialty Start Date End Date Apolinar Wayne DO [address] [place] [facility] [place] [address] PCP - General Internal Medicine 11/15/23 documented as of this encounter
--- OUTSIDE RECORDS SUMMARY | 2024-05-06 12:23 | External Medical Summary | Summary of Care ---
Author Name Unknown Organization [facility] Address [address] [place] [address] Phone [phone] Care Team Providers Care Helicopter Specialist Name Role Phone Apolinar Wayne DO Primary Care Provider [phone] Reason for Visit * Reason Onset Date Comments FYI 04/23/2024 Encounter Details Date Type Department Care Team (Late st Contact Info) Description 04/23/2024 Telephone Family Practice [address] [place] [address] [place] [address] Apolinar Wayne DO [address] [place], [place] [id number] FYI Allergies Active Allergy Reactions Criticality Noted Date Comments Erythromycin 07/02/1998 GI upset Guaifenesin & Derivatives 03/18/1997 nucofed documented as of this encounter (statuses as of 05/01/2024) Medications BD Pen Needle Altagracia U/F 32G [...] of major depressive disorder without prior episode ([facility]),PTSD (post-traumatic stress disorder) Take [...] as of this encounter (statuses as of 05/01/2024) Active Problems Problem Noted Date Diagnosed Date [...] as of this encounter (statuses as of 05/01/2024) Resolved Problems Problem Noted Date Diagnosed Date [...] as of this encounter (statuses as of 05/01/2024) Immunizations Name Administration Dates Next Due COVID-19 mRNA, LNP-s, No Pre serve, 2-Dose Series ([facility]) 03/10/2021,06/07/2020,05/17/2020 COVID-19, LNP-s, No Preserve , Chandler-sucrose, Ages 12+ (Pfizer) 11/17/2021 COVID-19, MRNA-LNP, PF, 30 M CG/0.3 mL, 12 YRS AND ABOVE, IM ([facility]ER-Comirnaty) 01/17/2024,03/08/2023 Covid-19, Mrna, Lnp-s, Pf, B ivalent, 30 Mcg, IM, 12 yrs and above ([facility]) 04/13/2022 H1N1 2009 Influenza, IM 12/10/2019,04/01/2009 [...] up scheduled once he is discharged from [facility]. This will likely need to be via telehealth if you're agreeable to that. * Telephone Encounter - Rain Yañez RN - 05/01/2024 12:03 PM EST Spoke to youngest son, Ulysses, at length: Ulysses gave update on his father. Doing well at [facility] per son. Has "really perked up." He is having episodes of confusion and disorientation, but is also perfectly lucid at other times. Per [facility] nurse notes, he is A&O x1-4 dependent [...] Reported to Ulysses that the report from [facility] in March states tumor regrowth. I advised Ulysses that if they would want another brain MRI to rule out tumor re-growth vs. Swelling of tissue, that it is easier to get it done while he is an inpatient at [facility] vs in the outpatient setting. Advised him to discuss this with doctors at [facility]. PT met with patient in hospital yesterday (04/30/24); did PT in the bed only for approx 45 minutes. Ulysses said his father tolerated it well. Report in [facility] states 15 minutes of PT [...] Patient was to have an appt at [facility] tomorrow- which he will not be attending- and Ulysses is unsure at this point if it will be rescheduled. I did advise that if they continue to seek a 3rd opinion, out of the [employer] network, so confirm it would be covered by Denis's insurance. Told Ulysses that registration at any facility would be able to determine if the insurance is taken there or not; he verbalized understanding. Ulysses is working on coordinating home care with [facility]--ideally they would want: two nurse visits/week, aide visits a couple times a week, PT to be coming twice a week. He did not say if additional caregivers would be hired. Per Ulysses, ANNMARIE GORMAN is working with [facility] to change out paperwork on equipment that Denis has at home from hospice, and just transfer it to [employer]'s name. This is being managed by [facility] and [facility]. Dr. Solo- no follow up plan as of now. Ulysses states he will follow up with oncology office after DCfrom [facility]. Reported they will plan to do a [...] For example, they were definite on using [facility], and then this morning she suggested using [facility] home health again. Once discharged from [facility], patient will be transported via litter van (Ulysses aware this is OOP expense). Referral was officially placed to [facility] by IP CM. In addition, a referral to [facility] has beenplaced. Ulysses was appreciative for [...] hospice any longer. Denis is still at [facility], awaiting PT/OT evals. Still on aspiration precautions and thickened liquids. He has not gotten out of bed since admission on Thursday 04/27. PT has been around to talk to Denis,but not fully evaluate him. Aimee says "Gilbert is doing much better." Aimee said that Ulysses, their youngest son, spoke to [facility] to stop all hospice [...] help." Aimee is still defiant in no mcfp placement. Ideally, she wants (and states her boys and Gilbert wants) to get him back into [facility]. At this time, no referral has been made to [facility]. I did reeducate Aimee the requirements [...] States Ulysses has been in contact with [facility] care to get more additional care givers. She does not think she would need care givers over night, just help in the mornings and during the day. Aimee was told that the brain MRI from March only showed swelling from the tumor site, not actualregrowth of the tumor. She said the hospitalist at [facility] would get another [facility] neurologist to re-read the scan and interpret it. 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 I told her that hospice has been stopped, [facility] would be contacting her to set lemon picker of equipment. I told Aimee that [...] with any additional questions/concerns. This CM called [facility] hospice with consent of Aimee to let them know he is to be off hospice. Assistant Pastry Chef said they would contact family to arrange lemon picker of DME. * Telephone Encounter - Nelsy Almanzar LPN - 04/30/2024 8:27 AM EST Please see MyG. * Telephone Encounter - Rain Yañez, RN - 04/27/2024 1:30 PM EST Called and spoke to Aimee, patient's . [facility] [place] has started for additional personal care aides. She is angry with care Gilbert received at [facility]. I validated her feelings. She states they [...] not know that his reached out to [facility]. Aimee said they have not told [facility] about reaching out to [facility] and looking intoalternative therapies. Denis says [...] than I do. Advised Aimee to contact [facility]- she states she will. I advised [...] Denis said he did not like the business writer that came form hospice. No answer given if they had reached out to their person jew person. Spoke to Dr. Wayne- gave update on phone call; advised [facility] [place] might be able to do in [...] Yañez RN - 04/23/2024 3:11 PM EST [facility] Aimee; left voicemail. * Telephone Encounter - Apolinar Wayne DO - 04/23/2024 3:05 PM EST Start Zofran ODT 4 mg three times a day as needed for Nausea * Telephone Encounter - Rain Yañez RN - 04/23/2024 2:46 PM EST CM call to Ulysses, son. [facility] will be coming to [...] Medical Devices Implanted Type Area Director Of Assessment Device Identifier Shelf Expiration Date Model / Serial / Lot Graft Lyoplant 5.0x5.0cm 2x2 - [id number] Implanted:Qty : 1 on 06/24/2020 by Madi Kaur MD at [place] [facility] [place] Right: Head B ALICEA : ARIAN 11/18/2024 [id number] / / [id number] Graft Lyoplant 5.0x5.0cm 2x2 - [id number] Implanted:Qty : 1 on 06/24/2020 by Madi Kaur MD at [place] [facility] [facility] B ALICEA : AESCULACleo [id number] 11/18/2024 [id number] / [id number] / [id number] Graft Lyoplant 5.0x5.0cm 2x2 - [id number] Implanted:Qty : 1 on 06/24/2020 by Madi Kaur MD at [place] [facility] [place] Right: Head B ALICEA : AESCULAP 06/24/2020 [id number] / / [id number] Graft Lyoplant 5.0x5.0cm 2x2 - [id number] Implanted:Qty : 1 on 06/24/2020 by Madi Kaur MD at [place] [facility] [place] B ALICEA : AESCULAP [id number] 11/18/2024 [id number] / [id number] / [id number] Plate Ti Lo Pro Str 2h 421.502 - [id number] Implanted:Qty : 2 on 06/24/2020 by Madi Kaur MD at OR [facility] [place] Right: Head SYNTHES MAXILLOFACIAL 421.502 / / Plate Bx Ti [id number] 4h 421.521 - [id number] Implanted:Qty : 1 on 06/24/2020 by Madi Kaur MD at [place] [facility] [place] Right: Head SYNTHES MAXILLOFACIAL 421.521 / / Screw Ti Lo Pro Sd 4mm 400.834 - [id number] Implanted:Qty : 7 on 06/24/2020 by Madi [...] Agents on File Name Relationship Healthcare Agent [facility] Shira Lam Spouse Health Care Agent Care Teams Helicopter Specialist Relationship Specialty Start Date End Date Apolinar Wayne DO [address] [place] [address] PCP - General Internal Medicine 11/15/23 documented as of this encounter
--- OUTSIDE RECORDS SUMMARY | 2024-05-06 12:23 | External Medical Summary | Summary of Care ---
Author Name Unknown Organization [facility] Address [address] [place] [address] Phone [phone] Care Team Providers Care Machine Hamper Maker Name Role Phone Apolinar Wayne DO Primary Care Provider [phone] Reason for Visit * Reason Onset Date Comments FYI 04/23/2024 Encounter Details Date Type Department Care Team (Late st Contact Info) Description 04/23/2024 Telephone Family Practice [address] [place] [address] [place] [address] Apolinar Wayne DO [address] [place], [place] [id number] FYI Allergies Active Allergy Reactions Criticality Noted [...] hemoglobin A1c goal of less than 7.0% ([facility]) Use as directed every 14 days . [...] of major depressive disorder without prior episode ([facility]),PTSD (post-traumatic stress disorder) Take 1 Tablet by [...] mRNA, LNP-s, No Pre serve, 2-Dose Series ([facility]) 03/10/2021,06/07/2020,05/17/2020 COVID-19, LNP-s, No Preserve , Chandler-sucrose, Ages 12+ (Pfizer) 11/17/2021 COVID-19, MRNA-LNP, PF, 30 M CG/0.3 mL, 12 YRS AND ABOVE, IM ([facility]ER-Comirnaty) 01/17/2024,03/08/2023 Covid-19, Mrna, Lnp-s, Pf, B ivalent, 30 Mcg, IM, 12 yrs and above ([facility]) 04/13/2022 H1N1 2009 Influenza, IM 12/10/2019,04/01/2009 Pneumococcal [...] up scheduled once he is discharged from [facility]. This will likely need to be via telehealth if you're agreeable to that. * Telephone Encounter - Rain Yañez RN - 05/01/2024 12:03 PM EST Spoke to youngest son, Ulysses, at length: Ulysses gave update on his father. Doing well at [facility] per son. Has "really perked up." He is having episodes of confusion and disorientation, but is also perfectly lucid at other times. Per [facility] nurse notes, he is A&O [...] Reported to Ulysses that the report from [facility] in March states tumor regrowth. I advised Ulysses that if they would want another brain MRI to rule out tumor re-growth vs. Swelling of tissue, that it is easier to get it done while he is an inpatient at [facility] vs in the outpatient setting. Advised him to discuss this with doctors at [facility]. PT met with patient in hospital yesterday (04/30/24); did PT in the bed only for approx 45 minutes. Ulysses said his father tolerated it well. Report in [facility] states 15 minutes of PT was [...] Patient was to have an appt at [facility] tomorrow- which he will not be attending- and Ulysses is unsure at this point if it will be rescheduled. I did advise that if they continue to seek a 3rd opinion, out of the [employer] network, so confirm it would be covered by Denis's insurance. Told Ulysses that registration at any facility would be able to determine if the insurance is taken there or not; he verbalized understanding. Ulysses is working on coordinating home care with [facility]--ideally they would want: two nurse visits/week, aide visits a couple times a week, PT to be coming twice a week. He did not say if additional caregivers would be hired. Per Ulysses, ANNMARIE GORMAN is working with [employer] [facility] to change out paperwork on equipment that Denis has at home from hospice, and just transfer it to [employer]'s name. This is being managed by [facility] and [facility]. Dr. Solo- no follow up plan as of now. Ulysses states he will follow up with oncology office after DCfrom [facility]. Reported they will plan to [...] For example, they were definite on using [facility], and then this morning she suggested using [facility] home health again. Once discharged from [facility], patient will be transported via litter van (Ulysses aware this is OOP expense). Referral was officially placed to [facility] by IP CM. In addition, a referral to [facility] has beenplaced. Ulysses was appreciative for [...] hospice any longer. Denis is still at [facility], awaiting PT/OT evals. Still on aspiration precautions and thickened liquids. He has not gotten out of bed since admission on Thursday 04/27. PT has been around to talk to Denis,but not fully evaluate him. Aimee says "Gilbert is doing much better." Aimee said that Ulysses, their youngest son, spoke to [facility] to stop all hospice [...] help." Aimee is still defiant in no group home placement. Ideally, she wants (and states her boys and Gilbert wants) to get him back into [facility]. At this time, no referral has been made to [facility]. I did reeducate Aimee the requirements for [...] States Ulysses has been in contact with [facility] care to get more additional care givers. She does not think she would need care givers over night, just help in the mornings and during the day. Aimee was told that the brain MRI from March only showed swelling from the tumor site, not actualregrowth of the tumor. She said the hospitalist at [facility] would get another [facility] neurologist to re-read the scan and interpret it. 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 I told her that hospice has been stopped, [facility] would be contacting her to set orange picker machine operator of equipment. I told Aimee that [...] with any additional questions/concerns. This CM called [facility] hospice with consent of Aimee to let them know he is to be off hospice. Machine Buffer said they would contact family to arrange orange picker machine operator of DME. * Telephone Encounter - Nelsy Almanzar LPN - 04/30/2024 8:27 AM EST Please see MyG. * Telephone Encounter - Rain Yañez, RN - 04/27/2024 1:30 PM EST Called and spoke to Aimee, patient's . [facility] [place] has started for additional personal care aides. She is angry with care Gilbert received at [facility]. I validated her feelings. [...] not know that [facility]. Aimee said they have not told [facility] about reaching out to [facility] and looking intoalternative therapies. Denis says he [...] than I do. Advised Aimee to contact [facility]- she states she will. I advised Aimee [...] Denis said he did not like the supervisor asphalt paving that came form hospice. No answer given if they had reached out to their person mandaen person. Spoke to Dr. Wayne- gave update on phone call; advised [facility] [place] might be able to do [...] Yañez RN - 04/23/2024 3:11 PM EST [facility] Aimee; left voicemail. * Telephone Encounter - [...] this encounter Medical Devices Implanted Type Area Cloth Stock Sorter Device Identifier Shelf Expiration Date Model / Serial / Lot Graft Lyoplant 5.0x5.0cm 2x2 - [id number] Implanted:Qty : 1 on 06/24/2020 by Madi Kaur [place] [facility] [place]: Head B ALICEA : ARIAN 11/18/2024 [id number] / / [id number] Graft Lyoplant 5.0x5.0cm 2x2 - [id number] Implanted:Qty : 1 on 06/24/2020 by Madi Kaur MD [place] [facility] B ALICEA : AESCULACleo [id number] 11/18/2024 [id number] / [id number] / [id number] Graft Lyoplant 5.0x5.0cm 2x2 - [id number] Implanted:Qty : 1 on 06/24/2020 by Madi Kaur MD [place] [facility] [place]: Head B ALICEA : AESCULAP 06/24/2020 [id number] / / [id number] Graft Lyoplant 5.0x5.0cm 2x2 - [id number] Implanted:Qty : 1 on 06/24/2020 by Madi Kaur MD [place] [facility] B ALICEA : AESCULAP [id number] 11/18/2024 [id number] / [id number] / [id number] Plate Ti Lo Pro Str 2h 421.502 - [id number] Implanted:Qty : 2 on 06/24/2020 by Madi Kaur MD [place] [facility] Right: Head SYNTHES MAXILLOFACIAL 421.502 / / Plate Bx Ti [id number] 4h 421.521 - [id number] Implanted:Qty : 1 on 06/24/2020 by Madi Kaur MD [place] [facility] Right: Head SYNTHES MAXILLOFACIAL 421.521 / / Screw Ti Lo Pro Sd 4mm 400.834 - [id number] Implanted:Qty : 7 on 06/24/2020 by Madi [...] Relationship Healthcare Agent [facility] Shira Lam Spouse Health Care Agent Care Teams Machine Hamper Maker Relationship Specialty Start Date End Date Apolinar Wayne DO [address] [place] [facility] [place] [address] PCP - General Internal Medicine 11/15/23 documented as of this encounter
--- OUTSIDE RECORDS SUMMARY | 2024-05-06 12:23 | External Medical Summary | Summary of Care ---
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 10/27/2017 History [...] mRNA, LNP-s, No Pre serve, 2-Dose Series ([facility]) 03/10/2021,06/07/2020,05/17/2020 COVID-19, LNP-s, No Preserve , Chandler-sucrose, Ages 12+ (Pfizer) 11/17/2021 COVID-19, MRNA-LNP, PF, 30 M CG/0.3 mL, 12 YRS AND ABOVE, IM ([facility]) 01/17/2024,03/08/2023 Covid-19, Mrna, Lnp-s, Pf, B ivalent, 30 Mcg, IM, 12 yrs and above ([facility]) 04/13/2022 H1N1 2009 Influenza, IM 12/10/2019,04/01/2009 Pneumococcal [...] this encounter Medical Devices Implanted Type Area Overhead Cleaner Device Identifier Shelf Expiration Date Model / Serial / Lot Graft Lyoplant 5.0x5.0cm 2x2 - [id number] Implanted:Qty : 1 on 06/24/2020 by Madi Kaur MD [place] [facility] [place]: Head B ALICEA : AUTUMNCULAP 11/18/2024 [id number] / / [id number] Graft Lyoplant 5.0x5.0cm 2x2 - [id number] Implanted:Qty : 1 on 06/24/2020 by Madi Kaur MD at [place] [facility] [place] B ALICEA : AESCULAP [id number] 11/18/2024 [id number] / [id number] / [id number] Graft Lyoplant 5.0x5.0cm 2x2 - [id number] Implanted:Qty : 1 on 06/24/2020 by Madi Kaur MD at [place] [facility] [place] Right: Head B ALICEA : AESCULAP 06/24/2020 [id number] / / [id number] Graft Lyoplant 5.0x5.0cm 2x2 - [id number] Implanted:Qty : 1 on 06/24/2020 by Madi Kaur MD at [place] [facility] [place] B ALICEA : AESCULACleo [id number] 11/18/2024 [id number] / [id number] / [id number] Plate Ti Lo Pro Str 2h 421.502 - [id number] Implanted:Qty : 2 on 06/24/2020 by Madi Kaur MD at [place] [facility] [place] Right: Head SYNTHES MAXILLOFACIAL 421.502 / / Plate Bx Ti [id number] 4h 421.521 - [id number] Implanted:Qty : 1 on 06/24/2020 by Madi Kaur MD at [place] [facility] [place] Right: Head SYNTHES MAXILLOFACIAL 421.521 / / Screw Ti Lo Pro Sd 4mm 400.834 - [id number] Implanted:Qty : 7 on 06/24/2020 by Madi [...] Communication Aimee Lam Spouse Health Care Agent [phone] (Home) Care Teams Manager Game Relationship Specialty Start Date End Date Apolinar Wayne DO [address] [place] [address] PCP - General Internal Medicine 11/15/23 documented as of this encounter
--- OUTSIDE RECORDS SUMMARY | 2024-05-06 12:23 | External Medical Summary | Summary of Care ---
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 This will likely need to be via telehealth if you're agreeable to that. * Telephone Encounter - Rain Yañez RN - 05/01/2024 12:03 PM EST Spoke to youngest son, Ulysses, at length: Ulysses gave update on his father. Doing well at [facility] per son. Has "really perked up." He is having episodes of confusion and disorientation, but is also perfectly lucid at other times. Per [facility] nurse notes, he is A&O [...] Reported to Ulysses that the report from [facility] in March states tumor regrowth. I advised Ulysses that if they would want another brain MRI to rule out tumor re-growth vs. Swelling of tissue, that it is easier to get it done while he is an inpatient at [facility] vs in the outpatient setting. Advised him to discuss this with doctors at [facility]. PT met with patient in hospital yesterday (04/30/24); did PT in the bed only for approx 45 minutes. Ulysses said his father tolerated it well. Report in [facility] states 15 minutes of PT was performed, [...] to have an appt at [facility] tomorrow- which he will not be attending- and Ulysses is unsure at this point if it will be rescheduled. I did advise that if they continue to seek a 3rd opinion, out of the [employer]er network, so confirm it would be covered by Denis's insurance. Told Ulysses that registration at any facility would be able to determine if the insurance is taken there or not; he verbalized understanding. Ulysses is working on coordinating home care with [facility]--ideally they would want: two nurse visits/week, aide visits a couple times a week, PT to be coming twice a week. He did not say if additional caregivers would be hired. Per Ulysses, ANNMARIE GORMAN is working with [facility] to change out paperwork on equipment that Denis has at home from hospice, and just transfer it to [facility]'s name. This is being managed by [facility] and [facility]. Dr. Solo- no follow up plan as of now. Ulysses states he will follow up with oncology office after DCfrom [facility]. Reported they will plan to [...] For example, they were definite on using [facility], and then this morning she suggested using [facility] home health again. Once discharged from [facility], patient will be transported via litter van (Ulysses aware this is OOP expense). Referral was officially placed to [facility] by IP CM. In addition, a referral to [facility] has beenplaced. Ulysses was appreciative for [...] hospice any longer. Denis is still at [facility], awaiting PT/OT evals. Still on aspiration precautions and thickened liquids. He has not gotten out of bed since admission on Thursday 04/27. PT has been around to talk to Denis,but not fully evaluate him. Aimee says "Gilbert is doing much better." Aimee said that Ulysses, their youngest son, spoke to [facility] to stop all hospice [...] help." Aimee is still defiant in no retirement placement. Ideally, she wants (and states her boys and Gilbert wants) to get him back into [facility]. At this time, no referral has been made to [facility]. I did reeducate Aimee the requirements for [...] States Ulysses has been in contact with [facility] care to get more additional care givers. She does not think she would need care givers over night, just help in the mornings and during the day. Aimee was told that the brain MRI from March only showed swelling from the tumor site, not actualregrowth of the tumor. She said the hospitalist at [facility] would get another [facility] neurologist to re-read the scan and interpret it. 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 I told her that hospice has been stopped, [facility] would be contacting her to set cotton picker operator of equipment. I told Aimee that [...] any additional questions/concerns. This CM called [facility] hospice with consent of Aimee to let them know he is to be off hospice. [employer] said they would contact family to arrange cotton picker operator of DME. * Telephone Encounter - Nelsy Almanzar LPN - 04/30/2024 8:27 AM EST Please see MyG. * Telephone Encounter - Rain Yañez, RN - 04/27/2024 1:30 PM EST Called and spoke to Aimee, patient's . [facility] [place] has started for additional personal care aides. She is angry with care Gilbert received at [facility]. I validated her feelings. She [...] not know that his reached out to [facility]. Aimee said they have not told [facility] about reaching out to [facility] and looking intoalternative therapies. Denis says he [...] than I do. Advised Aimee to contact [facility]- she states she will. I [...] Denis said he did not like the hvac service technician that came form hospice. No answer given if they had reached out to their person congregation person. Spoke to Dr. Wayne- gave update on phone call; advised [facility] might be able to do [...] Yañez RN - 04/23/2024 3:11 PM EST [facility] Aimee; left voicemail. * Telephone Encounter - Apolinar Wayne DO - 04/23/2024 3:05 PM EST Start Zofran ODT 4 mg three times a day as needed for Nausea * Telephone Encounter - Rain Yañez RN - 04/23/2024 2:46 PM EST CM call to Ulysses, son. [facility] will be coming [...] this encounter Medical Devices Implanted Type Area Wire Mesh Knitter Device Identifier Shelf Expiration Date Model / Serial / Lot Graft Lyoplant 5.0x5.0cm 2x2 - [id number] Implanted:Qty : 1 on 06/24/2020 by Madi Kaur MD [place] [facility] [place]: Head B ALICEA : ARIAN 11/18/2024 [id number] / / [id number] Graft Lyoplant 5.0x5.0cm 2x2 - [id number] Implanted:Qty : 1 on 06/24/2020 by Madi Kaur MD [place] [facility] [place] B ALICEA : AESCULACleo [id number] 11/18/2024 [id number] / [id number] / [id number] Graft Lyoplant 5.0x5.0cm 2x2 - [id number] Implanted:Qty : 1 on 06/24/2020 by Madi Kaur MD [place] [facility] [place] Right: Head B ALICEA : AESCULAP 06/24/2020 [id number] / / [id number] Graft Lyoplant 5.0x5.0cm 2x2 - [id number] Implanted:Qty : 1 on 06/24/2020 by Madi Kaur MD at [place] [facility] [place] B ALICEA : AESCULAP [id number] 11/18/2024 [id number] / [id number] / [id number] Plate Ti Lo Pro Str 2h 421.502 - [id number] Implanted:Qty : 2 on 06/24/2020 by Madi Kaur MD at [place] [facility] [place] Right: Head SYNTHES MAXILLOFACIAL 421.502 / / Plate Bx Ti [id number] 4h 421.521 - [id number] Implanted:Qty : 1 on 06/24/2020 by Madi Kaur MD at [place] [facility] [place] Right: Head SYNTHES MAXILLOFACIAL 421.521 / / Screw Ti Lo Pro Sd 4mm 400.834 - [id number] Implanted:Qty : 7 on 06/24/2020 by Madi [...] on File Name Relationship Healthcare Agent [facility] Shira Lam Spouse Health Care Agent Care Teams Maintenance Shop Clerk Relationship Specialty Start Date End Date Apolinar Wayne DO [address] [facility] [place] [address] PCP - General Internal Medicine 11/15/23 documented as of this encounter
--- OUTSIDE RECORDS SUMMARY | 2024-05-06 12:23 | External Medical Summary | Summary of Care ---
Author Name Unknown Organization [facility] Address [address] [place] [address] Phone [phone] Care Team Providers Care Time Study Engineer Name Role Phone Apolinar Wayne DO Primary Care Provider [phone] Reason for Visit * Reason Onset Date Comments [facility]: Screening 05/01/2024 Encounter Details Date Type Department Care Team (Late st Contact Info) Description 05/01/2024 Telephone [facility], [facility] [address] [facility] [address] Aimee James, J2EE ANDROID DEVELOPER [address] [place] [address] [facility]: Screening Allergies Active Allergy Reactions Criticality Noted Date [...] with nephropathy 06/27/2018 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 06/27/2018 manager long term care (current) use of insulin [...] Per HTN Taxonomy. FAM HX-ISCHEM HEART DIS 08/01/19980 09/2017 PURE HYPERCHOLESTEROLEM 08/01/199802/18 Overview (03/04/2009): Per Lipid Taxonomy. documented as of this encounter (statuses as of 05/02/2024) Immunizations Name Administration Dates Next Due COVID-19 mRNA, LNP-s, No Pre serve, 2-Dose Series ([employer]) 03/10/2021,06/07/2020,05/17/2020 COVID-19, LNP-s, No Preserve , Chandler-sucrose, [...] AM KEMART Sa valentine Onofre RN * Do you have serious difficulty [...] encounter Miscellaneous Notes * Telephone Encounter - Aimee James LPN - 05/01/2024 11:35 AM EST Denis Lam was referred as a potential candidate for enrollment for [facility]. A review of this chart was completed and: Denis meets criteria for [facility]. Jump to Initiation Referring care team was notified via : Epic communication Currently admitted to [facility] Adding to hospital list to follow for d/c documented in this encounter Plan of Treatment [...] this encounter Medical Devices Implanted Type Area Relations Specialist Device Identifier Shelf Expiration Date Model / Serial / Lot Graft Lyoplant 5.0x5.0cm 2x2 - [id number] Implanted:Qty : 1 on 06/24/2020 by Madi Kaur MD at [facility] Right: Head B ALICEA : AESCULAP 11/18/2024 [id number] / / [id number] Graft Lyoplant 5.0x5.0cm 2x2 - [id number] Implanted:Qty : 1 on 06/24/2020 by Madi Kaur [place] [facility] [place] ALICEA : AESCULAP [id number] 11/18/2024 [id number] / [id number] / [id number] Graft Lyoplant 5.0x5.0cm 2x2 - [id number] Implanted:Qty : 1 on 06/24/2020 by Madi Kaur MD [place] [facility] [place]: Head B ALICEA : AESCULAP 06/24/2020 [id number] / / [id number] Graft Lyoplant 5.0x5.0cm 2x2 - [id number] Implanted:Qty : 1 on 06/24/2020 by Madi Kaur MD [place] [facility] [place] B ALICEA : AESCULAP [id number] 11/18/2024 [id number] / [id number] / [id number] Plate Ti Lo Pro Str 2h 421.502 - [id number] Implanted:Qty : 2 on 06/24/2020 by Madi Kaur MD [place] [facility] [place]: Head SYNTHES MAXILLOFACIAL 421.502 / / Plate Bx Ti [id number] 4h 421.521 - [id number] Implanted:Qty : 1 on 06/24/2020 by Madi Kaur MD [place] [facility] [place] Right: Head SYNTHES MAXILLOFACIAL 421.521 / / Screw Ti Lo Pro Sd 4mm 400.834 - [id number] Implanted:Qty : 7 on 06/24/2020 by Madi [...] File Name Relationship Healthcare Agent [facility] Communication Aimee Lam Spouse Health Care Agent Care Teams Time Study Engineer Relationship Specialty Start Date End Date Apolinar Wayne DO [address] [place] [facility] [place] [address] PCP - General Internal Medicine 11/15/23 documented as of this encounter
--- OUTSIDE RECORDS SUMMARY | 2024-05-06 12:23 | External Medical Summary | Summary of Care ---
Author Name Unknown Organization [facility] Address [address] [place] [address] Phone [phone] Care Team Providers Care Frame Stripper And Crusher Name Role Phone Apolinar Wayne DO Primary Care Provider [phone] Reason for Visit * Reason Onset Date Comments Home Monitoring Orders Only 05/01/2024 Encounter Details Date Type Department Care Team (Late st Contact Info) Description 05/01/2024 Home Monitoring Family Practice [address] [place] [id number] Apolinar Wayne DO [address] [place], [place] [phone] Pulmonary hypertension (HCC)* Allergies Active Allergy Reactions [...] mRNA, LNP-s, No Pre serve, 2-Dose Series ([employer]) 03/10/2021,06/07/2020,05/17/2020 COVID-19, LNP-s, No Preserve , Chandler-sucrose, [...] documented in this encounter Progress Notes * Danya Dean OSA - 05/01/2024 5:19 PM EST Patient has been discharged from the [place] [address] home monitoring program due to hospice. documented in this encounter Plan of Treatment [...] this encounter Medical Devices Implanted Type Area Clammer Device Identifier Shelf Expiration Date Model / Serial / Lot Graft Lyoplant 5.0x5.0cm 2x2 - [id number] Implanted:Qty : 1 on 06/24/2020 [place] Mad[place] Kaur [place] [facility] [place] Head B ALICEA : AESCULAP 11/18/2024 [id number] / / [id number] Graft Lyoplant 5.0x5.0cm 2x2 - [id number] Implanted:Qty : 1 on 06/24/2020 by Madi Kaur MD [place] [facility] [place] ALICEA : AESCULAP [id number] 11/18/2024 [id number] / [id number] / [id number] Graft Lyoplant 5.0x5.0cm 2x2 - [id number] Implanted:Qty : 1 on 06/24/2020 by Madi Kaur MD [place] [facility] [place]: Head B ALICEA : AESCULAP 06/24/2020 [id number] / / [id number] Graft Lyoplant 5.0x5.0cm 2x2 - [id number] Implanted:Qty : 1 on 06/24/2020 by Madi Kaur MD [place] [facility] [place] B ALICEA : AESCULAP [id number] 11/18/2024 [id number] / [id number] / [id number] Plate Ti Lo Pro Str 2h 421.502 - [id number] Implanted:Qty : 2 on 06/24/2020 by Madi Kaur MD [place] [facility] [place]: Head SYNTHES MAXILLOFACIAL 421.502 / / Plate Bx Ti [id number] 4h 421.521 - [id number] Implanted:Qty : 1 on 06/24/2020 by Madi Kaur MD [place] [facility] [place]: Head SYNTHES MAXILLOFACIAL 421.521 / / Screw Ti Lo Pro Sd 4mm 400.834 - [id number] Implanted:Qty : 7 on 06/24/2020 by Madi [...] Lam Spouse Health Care Agent Care Teams Frame Stripper And Crusher Relationship Specialty Start Date End Date Apolinar Wayne DO [address] [place] [facility] [place] [address] PCP - General Internal Medicine 11/15/23 documented as of this encounter
--- OUTSIDE RECORDS SUMMARY | 2024-05-06 12:23 | External Medical Summary | Summary of Care ---
Author Name Unknown Organization [facility] Address [address] [place] [address] Phone [phone] Care Team Providers Care Hr Systems Analyst Name Role Phone Apolinar Wayne DO Primary Care Provider [phone] Reason for Visit * Reason Onset Date Comments [facility]: Screening 05/01/2024 Encounter Details Date Type Department Care Team (Late st Contact Info) Description 05/01/2024 Telephone [facility], [facility] [address] [facility] [address] Aimee James, YEAST TENDER [address] [place] [address] [facility]: Screening Allergies [...] hemoglobin A1c goal of less than 7.0% ([facility]) Use as directed every 14 [...] of major depressive disorder without prior episode ([facility]),PTSD (post-traumatic stress disorder) Take 1 [...] 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 06/27/2018 patient monitor (current) use of insulin 10/27/2017 History of [...] mRNA, LNP-s, No Pre serve, 2-Dose Series ([email or web address])) 03/10/2021,06/07/2020,05/17/2020 COVID-19, LNP-s, No Preserve , Chandler-sucrose, [...] Referring care team was notified via : [employer] communication Currently admitted to [facility] Adding to hospital list to follow for [...] this encounter Medical Devices Implanted Type Area Health Coach Device Identifier Shelf Expiration Date Model / Serial / Lot Graft Lyoplant 5.0x5.0cm 2x2 - [id number] Implanted:Qty : 1 on 06/24/2020 by Madi Kaur MD [place] [facility] [place] Right: Head B ALICEA : AESCULAP 11/18/2024 [id number] / / [id number] Graft Lyoplant 5.0x5.0cm 2x2 - [id number] Implanted:Qty : 1 on 06/24/2020 by Madi Kaur MD at [place] [facility] [place] B ALICEA : AESCULAP [id number] 11/18/2024 [id number] / [id number] / [id number] Graft Lyoplant 5.0x5.0cm 2x2 - [id number] Implanted:Qty : 1 on 06/24/2020 by Madi Kaur MD [place] [facility] [place] Right: Head B ALICEA : AESCULAP 06/24/2020 [id number] / / [id number] Graft Lyoplant 5.0x5.0cm 2x2 - [id number] Implanted:Qty : 1 on 06/24/2020 by Madi Kaur MD [place] [facility] [place] B ALICEA : AESCULAP [id number] 11/18/2024 [id number] / [id number] / [id number] Plate Ti Lo Pro Str 2h 421.502 - [id number] Implanted:Qty : 2 on 06/24/2020 by Madi Kaur MD at [place] [facility] [place] Right: Head SYNTHES MAXILLOFACIAL 421.502 / / Plate Bx Ti [id number] 4h 421.521 - [id number] Implanted:Qty : 1 on 06/24/2020 by Madi Kaur MD [place] [facility] [place] Right: Head SYNTHES MAXILLOFACIAL 421.521 / / Screw Ti Lo Pro Sd 4mm 400.834 - [id number] Implanted:Qty : 7 on 06/24/2020 by Madi Kaur MD [place] [facility] [place] Right: Head SYNTHES MAXILLOFACIAL 400.834 / / [...] Agents on File Name Relationship Healthcare Agent [facility] Communication Aimee Lam Spouse Health Care Agent Care Teams Hr Systems Analyst Relationship Specialty Start Date End Date Apolinar Wayne DO [address] [place] [address] PCP - General Internal Medicine 11/15/23 documented as of this encounter
--- OUTSIDE RECORDS SUMMARY | 2024-05-06 12:23 | External Medical Summary | Summary of Care ---
Author Name Unknown Organization [facility] Address [address] [place] [address] Phone [phone] Care Team Providers Care Drag Out Worker Name Role Phone Apolinar Wayne DO Primary Care Provider [phone] Reason for Visit * Reason Onset Date Comments FYI 04/23/2024 Encounter Details Date Type Department Care Team (Late st Contact Info) Description 04/23/2024 Telephone Family Practice [address], [place] [address] [place] [address] Apolinar Wayne DO [address] [place], [place] [id number] FYI Allergies Active Allergy Reactions Criticality Noted [...] mRNA, LNP-s, No Pre serve, 2-Dose Series (Youcruit) 03/10/2021,06/07/2020,05/17/2020 COVID-19, LNP-s, No Preserve , Chandler-sucrose, Ages 12+ (Pfizer) 11/17/2021 COVID-19, MRNA-LNP, PF, 30 M CG/0.3 mL, 12 YRS AND ABOVE, IM (PFIZER-Comirnaty) 01/17/2024,03/08/2023 Covid-19, Mrna, Lnp-s, Pf, B ivalent, 30 Mcg, IM, 12 yrs and above (Youcruit) 04/13/2022 H1N1 2009 Influenza, IM 12/10/2019,04/01/2009 Pneumococcal [...] up scheduled once he is discharged from [facility]. This will likely need to be via telehealth if you're agreeable to that. * Telephone Encounter - Rain Yañez RN - 05/01/2024 12:03 PM EST Spoke to youngest son, Ulysses, at length: Ulysses gave update on his father. Doing well at [facility] per son. Has "really perked up." He is having episodes of confusion and disorientation, but is also perfectly lucid at other times. Per [facility] nurse notes, he is A&O [...] Reported to Ulysses that the report from [facility] in March states tumor regrowth. I advised Ulysses that if they would want another brain MRI to rule out tumor re-growth vs. Swelling of tissue, that it is easier to get it done while he is an inpatient at [facility] vs in the outpatient setting. Advised him to discuss this with doctors at [facility]. PT met with patient in hospital yesterday (04/30/24); did PT in the bed only for approx 45 minutes. Ulysses said his father tolerated it well. Report in [facility] states 15 minutes of PT was [...] Patient was to have an appt at [facility] tomorrow- which he will not be attending- and Ulysses is unsure at this point if it will be rescheduled. I did advise that if they continue to seek a 3rd opinion, out of the [facility] [employer] network, so confirm it would be covered by Denis's insurance. Told Ulysses that registration at any facility would be able to determine if the insurance is taken there or not; he verbalized understanding. Ulysses is working on coordinating home care with [facility]--ideally they would want: two nurse visits/week, aide visits a couple times a week, PT to be coming twice a week. He did not say if additional caregivers would be hired. Per Ulysses, ANNMARIE GORMAN is working with [facility] to change out paperwork on equipment that Denis has at home from hospice, and just transfer it to [facility]'s name. This is being managed by [facility] and [facility]. Dr. Solo- no follow up plan as of now. Ulysses states he will follow up with oncology office after DCfrom [facility]. Reported they will plan to [...] For example, they were definite on using [facility], and then this morning she suggested using [facility] home health again. Once discharged from [facility], patient will be transported via litter van (Ulysses aware this is OOP expense). Referral was officially placed to [facility] by IP CM. In addition, a referral to [facility]. Ulysses was appreciative for [...] hospice any longer. Denis is still at [facility], awaiting PT/OT evals. Still on aspiration precautions and thickened liquids. He has not gotten out of bed since admission on Thursday 04/27. PT has been around to talk to Denis,but not fully evaluate him. Aimee says "Gilbert is doing much better." Aimee said that Ulysses, their youngest son, spoke to [facility] to stop all hospice services. Aimee [...] help." Aimee is still defiant in no fpc placement. Ideally, she wants (and states her [...] States Ulysses has been in contact with [place] care to get more additional care givers. She does not think she would need care givers over night, just help in the mornings and during the day. Aimee was told that the brain MRI from March only showed swelling from the tumor site, not actualregrowth of the tumor. She said the hospitalist at [facility] would get another [facility] neurologist to re-read the scan and interpret it. 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 I told her that hospice has been stopped, [facility] would be contacting her to set mortician supplies sales representative of equipment. I told Aimee that if [...] with any additional questions/concerns. This CM called [facility] hospice with consent of Aimee to let them know he is to be off hospice. Clerk General Office said they would contact family to arrange mortician supplies sales representative of DME. * Telephone Encounter - Nelsy Almanzar LPN - 04/30/2024 8:27 AM EST Please see MyG. * Telephone Encounter - Rain Yañez, RN - 04/27/2024 1:30 PM EST Called and spoke to Aimee, patient's . [facility] health [place] has started for additional personal care aides. She is angry with care Gilbert received at [facility]. I validated her feelings. She [...] not know that his reached out to [facility]. Aimee said they have not told [facility] about reaching out to [facility] and looking intoalternative therapies. Denis says [...] than I do. Advised Aimee to contact [facility]- she states she will. I advised [...] Denis said he did not like the shop steward that came form hospice. No answer given if they had reached out to their person hindu person. Spoke to Dr. Wayne- gave update on phone call; advised [facility] [place] might be able to do [...] Yañez RN - 04/23/2024 3:11 PM EST [facility] Aimee; left voicemail. * Telephone [...] this encounter Medical Devices Implanted Type Area Collator Operator Device Identifier Shelf Expiration Date Model / Serial / Lot Graft Lyoplant 5.0x5.0cm 2x2 - [id number] Implanted:Qty : 1 on 06/24/2020 [place] [facility] Head B ALICEA : ARIAN 11/18/2024 [id number] / / [id number] Graft Lyoplant 5.0x5.0cm 2x2 - [id number] Implanted:Qty : 1 on 06/24/2020 by Madi Kaur [place] [facility] B ALICEA : AESCULACleo [id number] 11/18/2024 [id number] / [id number] / [id number] Graft Lyoplant 5.0x5.0cm 2x2 - [id number] Implanted:Qty : 1 on 06/24/2020 by Madi Kaur [place] [facility] [place]: Head B ALICEA : AESCULAP 06/24/2020 [id number] / / [id number] Graft Lyoplant 5.0x5.0cm 2x2 - [id number] Implanted:Qty : 1 on 06/24/2020 by Madi Kaur MD [place] [facility] B ALICEA : AESCULAP [id number] 11/18/2024 [id number] / [id number] / [id number] Plate Ti Lo Pro Str 2h 421.502 - [id number] Implanted:Qty : 2 on 06/24/2020 by Madi Kaur [place] [facility] [place]: Head SYNTHES MAXILLOFACIAL 421.502 / / Plate Bx Ti [id number] 4h 421.521 - [id number] Implanted:Qty : 1 on 06/24/2020 by Madi Kaur [place] [facility]: Head SYNTHES MAXILLOFACIAL 421.521 / / Screw Ti Lo Pro Sd 4mm 400.834 - [id number] Implanted:Qty : 7 on 06/24/2020 by Madi Kaur MD [place] [facility] [place]: Head SYNTHES MAXILLOFACIAL [...] Lam Spouse Health Care Agent Care Teams Drag Out Worker Relationship Specialty Start Date End Date Apolinar Wayne DO [address] [place] [facility] [place] [address] PCP - General Internal Medicine 11/15/23 documented as of this encounter
--- OUTSIDE RECORDS SUMMARY | 2024-05-06 12:23 | External Medical Summary | Summary of Care ---
Author Name Unknown Organization [facility] Address [address] [place] [address] Phone [phone] Care Team Providers Care Yarn Texture Machine Operator Name Role Phone Apolinar Wayne DO Primary Care Provider [phone] Reason for Visit * Reason Onset Date Comments FYI 04/23/2024 Encounter Details Date Type Department Care Team (Late st Contact Info) Description 04/23/2024 Telephone Family Practice [address], [place] [address] [place] [address] Apolinar aWyne DO [address] [place], [place] [id number] FYI Allergies Active Allergy Reactions Criticality Noted [...] goal of less than 7.0% ([facility]) Use as directed every 14 days [...] depressive disorder without prior episode ([facility]),PTSD (post-traumatic stress disorder) Take 1 Tablet by [...] mRNA, LNP-s, No Pre serve, 2-Dose Series (Twice) 03/10/2021,06/07/2020,05/17/2020 COVID-19, LNP-s, No Preserve , Chandler-sucrose, Ages 12+ (Pfizer) 11/17/2021 COVID-19, MRNA-LNP, PF, 30 M CG/0.3 mL, 12 YRS AND ABOVE, IM (PFIZER-Comirnaty) 01/17/2024,03/08/2023 Covid-19, Mrna, Lnp-s, Pf, B ivalent, 30 Mcg, IM, 12 yrs and above (Twice) 04/13/2022 H1N1 2009 Influenza, IM 12/10/2019,04/01/2009 Pneumococcal [...] scheduled once he is discharged from [facility]. This will likely need to be via telehealth if you're agreeable to that. * Telephone Encounter - Rain Yañez RN - 05/01/2024 12:03 PM EST Spoke to youngest son, Ulysses, at length: Ulysses gave update on his father. Doing well at [facility] per son. Has "really perked up." He is having episodes of confusion and disorientation, but is also perfectly lucid at other times. Per [facility] nurse notes, he is A&O x1-4 [...] to Ulysses that the report from [facility] in March states tumor regrowth. I advised Ulysses that if they would want another brain MRI to rule out tumor re-growth vs. Swelling of tissue, that it is easier to get it done while he is an inpatient at [facility] vs in the outpatient setting. Advised him to discuss this with doctors at [facility]. PT met with patient in hospital yesterday (04/30/24); did PT in the bed only for approx 45 minutes. Ulysses said his father tolerated it well. Report in [facility] states 15 minutes of PT [...] Patient was to have an appt at [facility] tomorrow- which he will not be attending- and Ulysses is unsure at this point if it will be rescheduled. I did advise that if they continue to seek a 3rd opinion, out of the [employer] network, so confirm it would be covered by Denis's insurance. Told Ulysses that registration at any facility would be able to determine if the insurance is taken there or not; he verbalized understanding. Ulysses is working on coordinating home care with [facility]--ideally they would want: two nurse visits/week, aide visits a couple times a week, PT to be coming twice a week. He did not say if additional caregivers would be hired. Per Ulysses, ANNMARIE GORMAN is working with [facility] to change out paperwork on equipment that Denis has at home from hospice, and just transfer it to [employer] name. This is being managed by [facility] and [facility]. Dr. Solo- no follow up plan as of now. Ulysses states he will follow up with oncology office after DCfrom [facility]. Reported they will plan to do [...] For example, they were definite on using [facility], and then this morning she suggested using [facility] home health again. Once discharged from [facility], patient will be transported via litter van (Ulysses aware this is OOP expense). Referral was officially placed to [facility] by IP CM. In addition, a referral to [facility] has been[facility]. Ulysses was appreciative for all [...] any longer. Denis is still at [facility], awaiting PT/OT evals. Still on aspiration precautions and thickened liquids. He has not gotten out of bed since admission on Thursday 04/27. PT has been around to talk to Denis,but not fully evaluate him. Aimee says "Gilbert is doing much better." Aimee said that Ulysses, their youngest son, spoke to [facility] to stop all hospice services. [...] help." Aimee is still defiant in no chcf placement. Ideally, she wants (and states her boys and Gilbert wants) to get him back into [facility]. At this time, no referral has been made to [facility]. I did reeducate Aimee the requirements for [...] Ulysses has been in contact with [facility] care to get more additional care givers. She does not think she would need care givers over night, just help in the mornings and during the day. Aimee was told that the brain MRI from March only showed swelling from the tumor site, not actualregrowth of the tumor. She said the hospitalist at [facility] would get another [facility] neurologist to re-read the scan and interpret it. 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 I told her that hospice has been stopped, [facility] would be contacting her to set pickling solution maker of equipment. I told Aimee that if [...] with any additional questions/concerns. This CM called [facility] hospice with consent of Aimee to let them know he is to be off hospice. [facility] [employer] said they would contact family to arrange pickling solution maker of DME. * Telephone Encounter - Nelsy Almanzar LPN - 04/30/2024 8:27 AM EST Please see MyG. * Telephone Encounter - Rain Yañez, RN - 04/27/2024 1:30 PM EST Called and spoke to Amiee, patient's . [facility] health [place] has started for additional personal care aides. She is angry with care Gilbert received at [facility]. I validated her feelings. She states [...] not know that his reached out to [facility]. Aimee said they have not told [facility] about reaching out to [facility] and looking intoalternative therapies. Denis says [...] than I do. Advised Aimee to contact [facility]- she states she will. I [...] Denis said he did not like the tacker off that came form hospice. No answer given if they had reached out to their person muslim person. Spoke to Dr. Wayne- gave update on phone call; advised [facility] [place] might be able to do in [...] this encounter Medical Devices Implanted Type Area Technical Aide Device Identifier Shelf Expiration Date Model / Serial / Lot Graft Lyoplant 5.0x5.0cm 2x2 - [id number] Implanted:Qty : 1 on 06/24/2020 by Madi Kaur MD at [place] [facility] Right: Head B ALICEA : ARIAN 11/18/2024 [id number] / / [id number] Graft Lyoplant 5.0x5.0cm 2x2 - [id number] Implanted:Qty : 1 on 06/24/2020 by Madi Kaur MD at [place] [facility] B ALICEA : AESCULACleo [id number] 11/18/2024 [id number] / [id number] / [id number] Graft Lyoplant 5.0x5.0cm 2x2 - [id number] Implanted:Qty : 1 on 06/24/2020 by Madi Kaur MD at [place] [facility] Right: Head B ALICEA : AESCULAP 06/24/2020 [id number] / / [id number] Graft Lyoplant 5.0x5.0cm 2x2 - [id number] Implanted:Qty : 1 on 06/24/2020 by Madi Kaur MD at [place] [facility] B ALICEA : AESCULAP [id number] 11/18/2024 [id number] / [id number] / [id number] Plate Ti Lo Pro Str 2h 421.502 - [id number] Implanted:Qty : 2 on 06/24/2020 by Madi Kaur MD at [place] [facility] Right: Head SYNTHES MAXILLOFACIAL 421.502 / / Plate Bx Ti [id number] 4h 421.521 - [id number] Implanted:Qty : 1 on 06/24/2020 by Madi Kaur MD at [place] [facility] Right: Head SYNTHES MAXILLOFACIAL 421.521 / / Screw Ti Lo Pro Sd 4mm 400.834 - [id number] Implanted:Qty : 7 on 06/24/2020 by Madi [...] Name Relationship Healthcare Agent [facility] Shira Lam Spouse Health Care Agent Care Teams Yarn Texture Machine Operator Relationship Specialty Start Date End Date Apolinar Wayne DO [address] [facility] [place] [address] PCP - General Internal Medicine 11/15/23 documented as of this encounter
--- OUTSIDE RECORDS SUMMARY | 2024-05-06 12:24 | External Medical Summary | Summary of Care ---
Author Name Unknown Organization [facility] Address [address] [place] [address] Phone [phone] Care Team Providers Care Medication Care Manager Name Role Phone Apolinar Wayne DO Primary Care Provider [phone] Reason for Visit * Reason Onset Date Comments FYI 04/23/2024 Encounter Details Date Type Department Care Team (Late st Contact Info) Description 04/23/2024 Telephone Family Practice [address], [place] [address] [place] [address] Apolinar Wayne DO [address] [place], [place] [id number] FYI Allergies Active Allergy Reactions Criticality Noted Date Comments Erythromycin 07/02/1998 GI upset Guaifenesin & Derivatives 03/18/1997 nucofed documented as of this encounter (statuses as of 04/30/2024) Medications BD Pen Needle Altagracia U/F 32G [...] as of this encounter (statuses as of 04/30/2024) Active Problems Problem Noted Date Diagnosed Date [...] 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 06/27/2018 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 10/27/2017 History [...] as of this encounter (statuses as of 04/30/2024) Resolved Problems Problem Noted Date Diagnosed Date [...] as of this encounter (statuses as of 04/30/2024) Immunizations Name Administration Dates Next Due COVID-19 mRNA, LNP-s, No Pre serve, 2-Dose Series (enGreet) 03/10/2021,06/07/2020,05/17/2020 COVID-19, LNP-s, No Preserve , Chandler-sucrose, Ages 12+ (Pfizer) 11/17/2021 COVID-19, MRNA-LNP, PF, 30 M CG/0.3 mL, 12 YRS AND ABOVE, IM (PFIZER-Comirnaty) 01/17/2024,03/08/2023 Covid-19, Mrna, Lnp-s, Pf, B ivalent, 30 Mcg, IM, 12 yrs and above (enGreet) 04/13/2022 H1N1 2009 Influenza, IM 12/10/2019,04/01/2009 Pneumococcal [...] encounter Miscellaneous Notes * Telephone Encounter - Nelsy Almanzar LPN - 04/30/2024 8:27 AM EST Please see MyG. * Telephone Encounter - Rain Yañez RN - 04/27/2024 1:30 PM EST Called and spoke to Aimee, patient's . [facility] health [place] has started for additional personal care aides. She is angry with care Gilbert received at [facility]. I validated her feelings. She states [...] that his reached out to [facility]. Aimee said they have not told [facility] about reaching out to [place] and looking intoalternative therapies. Denis says he [...] than I do. Advised Aimee to contact [facility]- she states she will. I advised [...] Denis said he did not like the email engineer that came form hospice. No answer given if they had reached out to their person catholic person. Spoke to Dr. Wayne- gave update [...] Yañez RN - 04/23/2024 3:11 PM EST [facility] Aimee; left voicemail. * Telephone Encounter - Apolinar Wayne DO - 04/23/2024 3:05 PM EST Start Zofran ODT 4 mg three times a day as needed for Nausea * Telephone Encounter - Rain Yañez RN - 04/23/2024 2:46 PM EST CM call to mahin Arora. [facility] care will be coming to house on . Looking for more personal home care aides. Gilbert is vomiting x 24 hours. Hospice nurse concerned it may be GI bug. Drinking water this morning; and some pudding. [facility] hospice nurse cannot do IV fluids in [...] this encounter Medical Devices Implanted Type Area Poker Dealer Device Identifier Shelf Expiration Date Model / Serial / Lot Graft Lyoplant 5.0x5.0cm 2x2 - [id number] Implanted:Qty : 1 on 06/24/2020 by Madi Kaur MD at [place] [facility] [place] Right: Head B ALICEA : AUTUMNCULAP 11/18/2024 [id number] / / [id number] Graft Lyoplant 5.0x5.0cm 2x2 - [id number] Implanted:Qty : 1 on 06/24/2020 by Madi Kaur MD at [place] [facility] [place] B ALICEA : AESCULAP [id number] 11/18/2024 [id number] / [id number] / [id number] Graft Lyoplant 5.0x5.0cm 2x2 - [id number] Implanted:Qty : 1 on 06/24/2020 by Madi Kaur MD at [place] [facility] [place] Right: Head B ALICEA : AESCULAP 06/24/2020 [id number] / / [id number] Graft Lyoplant 5.0x5.0cm 2x2 - [id number] Implanted:Qty : 1 on 06/24/2020 by Madi Kaur MD at [place] [facility] [place] B ALICEA : AESCULAP [id number] 11/18/2024 [id number] / [id number] / [id number] Plate Ti Lo Pro Str 2h 421.502 - [id number] Implanted:Qty : 2 on 06/24/2020 by Madi Kaur MD at [place] [facility] [place] Right: Head SYNTHES MAXILLOFACIAL 421.502 / / Plate Bx Ti [id number] 4h 421.521 - [id number] Implanted:Qty : 1 on 06/24/2020 by Madi Kaur MD at [place] [facility] [place] Right: Head SYNTHES MAXILLOFACIAL 421.521 / / Screw Ti Lo Pro Sd 4mm 400.834 - [id number] Implanted:Qty : 7 on 06/24/2020 by Madi [...] Care Agent [id number] (Home) Care Teams Medication Care Manager Relationship Specialty Start Date End Date Apolinar Wayne DO [address] [place] [address] PCP - General Internal Medicine 11/15/23 documented as of this encounter
--- OUTSIDE RECORDS SUMMARY | 2024-05-06 12:24 | External Medical Summary | Summary of Care ---
Author Name Unknown Organization [facility] Address [address] [place] [address] Phone [phone] Care Team Providers Care Junior Oracle Dba Name Role Phone Apolinar Wayne DO Primary Care Provider [phone] Reason for Visit * Reason Comments Follow Up Encounter Details Date Type Department Care Team (Latest Contact Info) Description 04/03/2024 3:40 PM EST Office Visit Family Practice [address] [facility], [place] [address] [place] [phone] Apolinar Wayne DO [address] [place] [address] Glioblastoma (HCC)*; Gait abnormality; Falls frequently; Acute [...] Tablet 3 02/04/20 24 2:51 PM EST 024 Active Pantoprazole Sodium 40 MG Oral Tablet [...] 12/30/19 24 2:07 PM EDT 024 Active Atorvastatin Calcium [...] 02/20/20 24 4:13 PM EST 024 Active Additional Information Patient taking differently:Subcutaneous,10 units [...] by mouth 2 times a day. Active Rivaroxaban 20 MG Oral Tablet (Xarelto)Indicat ions:blood clot prevention Take 1 Tablet by mouth every afternoon[facility] 2024 Discontinued(M edication/Dose Changed) Diclofenac Sodium 1 % External Gel (Voltaren) APPLY TOPICALLY TO AFFECTED AREA 3 TIMES A DAY -- TO HANDS, BILATERALLY FOR ARTHRITIC PAIN 200 g 5 10/26/19 24 11:48 AM EDT 024 2024 Ondansetron HCl 8 MG Oral Tablet (Zofran)Indicati ons:Glioblastoma (HCC) Take 1 tablet by mouth 30 minutes prior to lomustine and every 8 hours as needed for nausea. Do not exceed 3 tablets per 24 hours. 60 Tablet 1 01/10/20 24 2:49 PM EDT 024 2024 Discontinued Rivaroxaban 20 MG Oral Tablet (Xarelto)Indicat ions:History of deep venous thrombosis (DVT) of distal vein of left lower extremity,Histor y of pulmonary embolism Take 1 Tablet by mouth daily with dinner. 30 Tablet 025 2024 Discontinued(M edication/Dose Changed) documented as of this encounter (statuses [...] mRNA, LNP-s, No Pre serve, 2-Dose Series (Poshly) 03/10/2021,06/07/2020,05/17/2020 COVID-19, LNP-s, No Preserve , Chandler-sucrose, Ages 12+ (Pfizer) 11/17/2021 COVID-19, MRNA-LNP, PF, 30 M CG/0.3 mL, 12 YRS AND ABOVE, IM ([facility]) 01/17/2024,03/08/2023 Covid-19, Mrna, Lnp-s, Pf, B ivalent, 30 Mcg, IM, 12 yrs and above (Poshly) 04/13/2022 H1N1 2009 Influenza, IM 12/10/2019,04/01/2009 Pneumococcal [...] encounter Progress Notes * Apolinar Wayne, - 04/03/2024 4:30 PM EST SUBJECTIVE: Denis aLm is a 73 year old male. Chief Complaint Patient presents with Follow Up HPI: Patient is a 73 year old male with a history of right temporal lobe GBM resection at [facility] on 07/14/2020, resection of recurrent GBM at [...] the brain is scheduled on 04/19/2024 at [facility]. Patient is at the visit with his . Patient Active Problem List Diagnosis Dyslipidemia, goal LDL below 100 HTN, goal below 140/90 Lumbar degenerative disc disease BPH with obstruction/lower urinary tract symptoms History of urinary retention History of pulmonary embolism History of deep venous thrombosis (DVT) of distal vein of left lower extremity residential (current) use of insulin (HCC) Diabetes mellitus [...] hemoglobin A1c goal of less than 8.0% ([facility]) Tremor Current Outpatient Medications Medication Sig Dispense Refill B Complex (Folic Acid) Oral Tablet Take 1 Tablet by mouth in the morning. Vitamin D3 25 MCG (1000 UT) Oral Capsule Take 1 Capsule by mouth every evening. [employer] Aarti 2 Sensor Use as directed every [...] (Protonix) TAKE ONE TABLET BY MOUTH EVERY [id number] Tablet 3 Valtoco 10 MG Dose 10 [...] mouth every afternoon. (get from the [facility]) No current facility-administered medications for this visit. [...] performed by Luana Callahan DO at ENDOSCOPY [facility] COLONOSCOPY, DIAGNOSTIC (RECTUM) 11/02/2019 internal hemorrhoids/biopsies show adenomatous polyps/recall 5 years/COLONOSCOPY FLEXIBLE PROXIMAL DIAGNOSTIC performed by Luana Callahan DO at END[facility]COPY [facility] EGD, FLEXIBLE, DIAGNOSTIC 12/13/2011 Hedrick's-repeat EGD 3 yrs/repeat EUS 3-6 monthsUPPER GI ENDOSCOPY DIAGNOSTIC performed by Luana Diaz DO at ENDOSCOPY [facility] EGD, FLEXIBLE, DIAGNOSTIC 06/06/2015 sm HH, Barretts, repeat 3 yrs/ESOPHAGOGASTRODUODENOSCOPY (EGD), FLEXIBLE, TRANSORAL, DIAGNOSTIC performed by Luana Callahan DO at END[facility]COPY [facility] EGD, FLEXIBLE, DIAGNOSTIC 09/27/2018 mild inflammation on bx, repeat 3 yrs/ESOPHAGOGASTRODUODENOSCOPY (EGD), FLEXIBLE, TRANSORAL, DIAGNOSTIC performed by Luana Callahan DO at END[facility]COPY [facility] EGD, FLEXIBLE, W/BIOPSY 12/11/2009 done bxs done barretts esophagus EGD, W/ENDOSCOPIC US 12/11/2009 done no cyst identified,multiple small stones and sludge in gallbladder pancreas without masses of ductal dilatation barretts esophagus with a small nodule bxs done EGD, W/ENDOSCOPIC US 04/03/2012 UPPER GI ENDOSCOPY ENDOSCOPIC ULTRASOUND performed by Luana Callahan DO at OR [facility] MICROSURGERY ADD-ON Right 06/24/2020 MICROSURGICAL SURGERY REQUIRING MICROSCOPE LISTED SEPARATELY performed by Inés [employer] OR [facility] REMOVAL OF APPENDIX REMOVE CATARACT, INSERT LENS PROSTH Left 08/22/2019 REMOVE CATARACT, INSERT LENS PROSTH Right 09/05/2019 REMOVE SUPRATENTORIAL BRAIN TUMOR Right 06/24/2020 CRANIOTOMY BONE FLAP EXCISION BRAIN TUMOR SUPRATENTORIAL performed by Madi Kaur MD at OR [facility] REMOVE TONSILS & ADENOIDS, UNDER 12 T & A, age<12 REPAIR RUPTURED ROTATOR CUFF, CHRON 06/27/2013 right - Dr. Bryant STEREOTACTIC CRANIAL INTRADURAL NAVIGATION Right 06/24/2020 STEREOTACTIC CRANIAL INTRADURAL NAVIGATION performed by Madi Kaur MD at OR [facility] Review of patient's allergies indicates: Allergen Reactions [...] hemoglobin A1c goal of less than 8.0% ([facility]) Continue Lantus per [facility] Dyslipidemia, goal LDL below 100 Continue [...] in left shoulder. documented in this encounter Miscellaneous Notes * Result Encounter Note - Nelsy Almanzar LPN - 04/05/2024 2:23 PM EST Spoke to patient/spouse - see telephone encounter. documented in this encounter Plan of Treatment [...] this encounter Medical Devices Implanted Type Area Dressage Judge Device Identifier Shelf Expiration Date Model / Serial / Lot Graft Lyoplant 5.0x5.0cm 2x2 - [id number] Implanted:Qty : 1 on 06/24/2020 by Madi Kaur MD at OR [facility] Right: Head B ALICEA : AESCULAP 11/18/2024 [id number] / / [id number] Graft Lyoplant 5.0x5.0cm 2x2 - [id number] Implanted:Qty : 1 on 06/24/2020 by Madi Kaur MD at OR [facility] B ALICEA : AESCULAP [id number] 11/18/2024 [id number] / [id number] / [id number] Graft Lyoplant 5.0x5.0cm 2x2 - [id number] Implanted:Qty : 1 on 06/24/2020 by Madi Kaur MD at OR [facility] Right: Head B ALICEA : AESCULAP 06/24/2020 [id number] / / [id number] Graft Lyoplant 5.0x5.0cm 2x2 - [id number] Implanted:Qty : 1 on 06/24/2020 by Madi Kaur MD at OR [facility] B ALICEA : AESCULAP [id number] 11/18/2024 [id number] / [id number] / [id number] Plate Ti Lo Pro Str 2h 421.502 - [id number] Implanted:Qty : 2 on 06/24/2020 by Madi Kaur MD at OR [facility] Right: Head SYNTHES MAXILLOFACIAL 421.502 / / Plate Bx Ti [id number] 4h 421.521 - [id number] Implanted:Qty : 1 on 06/24/2020 by Madi Kaur MD at OR [facility] Right: Head SYNTHES MAXILLOFACIAL 421.521 / / Screw Ti Lo Pro Sd 4mm 400.834 - [id number] Implanted:Qty : 7 on 06/24/2020 by Madi Kaur MD at OR [facility] Right: Head SYNTHES MAXILLOFACIAL 400.834 / / documented as of this encounter Procedures Procedure Name Priority Date/Time Associated Diagnosis Comments XR SHOULDER, 2 OR MORE VIEWS STAT 04/03/2024 5:04 PM EST Acute pain of left shoulder documented in this encounter Results * XR SHOULDER, 2 OR MORE VIEWS (04/03/2024 5:04 PM EST) Anatomical Region Laterality Modality Upper Extremity, Shoulder Digita l Radiography 04/04/2024 5:03 PM EST Impressions 04/04/2024 5:00 PM EST IMPRESSION No evidence for fracture or dislocation. Osteoarthritis. Narrative 04/04/2024 5:00 PM EST EXAM Left shoulder-04/03/2024 5:04 pm HISTORY pain post fall COMPARISON No Comparison. TECHNIQUE Six views FINDINGS Normal alignment. Moderate acromioclavicular and mild glenohumeral osteoarthritis. No acute fracture. Imaged left lung is clear. Procedure Note Kolby Ruiz, DO - 04/04/2024 EXAM Left shoulder-04/03/2024 5:04 pm HISTORY pain post fall COMPARISON No Comparison. TECHNIQUE Six views FINDINGS Normal alignment. Moderate acromioclavicular and mild glenohumeralosteoarthritis. No acute fracture. Imaged left lung is clear. IMPRESSION IMPRESSION No evidence for fracture or dislocation. Osteoarthritis. Apolinar Wayne DO RADIOLOGY (RAD GENERAL) Final Result documented in this encounter Visit Diagnoses Diagnosis [...] A1c goal of less than 8.0% (HCC) Dyslipidemia, goal LDL below 100 Other and unspecified hyperlipidemia Gastro-esophageal reflux disease without esophagitis Esophageal reflux BPH with obstruction/lower urinary tract symptoms Hypertrophy of prostate with urinary obstruction and other lower urinary tract symptoms (LUTS) Current moderate episode of major depressive disorder without prior episode (HCC) History of pulmonary embolism Personal history [...] on File Name Relationship Healthcare Agent Branden p Communication Aimee Lam Spouse Health Care Agent Care Teams Junior Oracle Dba Relationship Specialty Start Date End Date Apolinar Wayne DO [address] [place] [address] PCP - General Internal Medicine 11/15/23 documented as of this encounter
--- OUTSIDE RECORDS SUMMARY | 2024-05-06 12:24 | External Medical Summary | Summary of Care ---
Author Name Unknown Organization [facility] Address [address] [place] [address] Phone [phone] Care Team Providers Care Harness Builder Name Role Phone Apolinar Wayne DO Primary Care Provider [phone] Reason for Visit * Reason Onset Date Comments FYI 04/23/2024 Encounter Details Date Type Department Care Team (Late st Contact Info) Description 04/23/2024 Telephone Family Practice [address] [place] [address] [place] [address] Apolinar Wayne DO [address] [place], [place] [phone] FYI Allergies Active Allergy Reactions Criticality Noted [...] with nephropathy 06/27/2018 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 06/27/2018 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 Denis is still at [facility], awaiting PT/OT evals. Still on aspiration precautions and thickened liquids. He has not gotten out of bed since admission on Thursday 04/27. PT has been around to talk to Denis,but not fully evaluate him. Aimee says "Gilbert is doing much better." Aimee said that Ulysses, their youngest son, spoke to [facility] to stop all [...] help." Aimee is still defiant in no assisted placement. Ideally, she wants (and states her boys and Gilbert wants) to get him back into [facility]. At this time, no referral has been made to [facility]. I did reeducate Aimee the [...] States Arora has been in contact with [facility] care to get more additional care givers. She does not think she would need care givers over night, just help in the mornings and during the day. Aimee was told that the brain MRI from March only showed swelling from the tumor site, not actualregrowth of the tumor. She said the hospitalist at [facility] would get another [facility] neurologist to re-read the scan and interpret it. 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 I told her that hospice has been stopped, [facility] would be contacting her to set pick pulling machine operator of equipment. I told Aimee [...] with any additional questions/concerns. This CM called [facility] with consent of Aimee to let them know he is to be off hospice. Manager Medical Affairs said they would contact family to arrange pick pulling machine operator of DME. * Telephone Encounter - Nelsy Almanzar LPN - 04/30/2024 8:27 AM EST Please see MyG. * Telephone Encounter - Rain Yañez, RN - 04/27/2024 1:30 PM EST Called and spoke to Aimee, patient's . [facility] has started for additional personal care aides. She is angry with care Gilbert received at [facility]. I validated her feelings. She [...] not know that his reached out to [facility]. Aimee said they have not told [facility] about reaching out to [facility] and looking intoalternative therapies. Denis [...] than I do. Advised Aimee to contact [facility]- she states she will. I [...] Denis said he did not like the diabetes manager that came form hospice. No answer given if they had reached out to their person gnosticism person. Spoke to Dr. Wayne- gave update on phone call; advised [facility] might be able to do [...] Yañez RN - 04/23/2024 3:11 PM EST [facility] Aimee; left voicemail. * Telephone Encounter - Apolinar Wayne DO - 04/23/2024 3:05 PM EST Start Zofran ODT 4 mg three times a day as needed for Nausea * Telephone Encounter - Rain Yañez RN - 04/23/2024 2:46 PM EST CM call to mahin Arora. [facility] care will be coming [...] this encounter Medical Devices Implanted Type Area Etl Analyst Device Identifier Shelf Expiration Date Model / Serial / Lot Graft Lyoplant 5.0x5.0cm 2x2 - [id number] Implanted:Qty : 1 on 06/24/2020 by Madi Kaur MD at OR [facility] Right: Head B ALICEA : AESCULAP 11/18/2024 [id number] / / [id number] Graft Lyoplant 5.0x5.0cm 2x2 - [id number] Implanted:Qty : 1 on 06/24/2020 by Madi Kaur MD at OR [facility] B ALICEA : AESCULAP [id number] 11/18/2024 [id number] / [id number] / [id number] Graft Lyoplant 5.0x5.0cm 2x2 - [id number] Implanted:Qty : 1 on 06/24/2020 by Madi Kaur MD at OR [facility] Right: Head B ALICEA : AESCULAP 06/24/2020 [id number] / / [id number] Graft Lyoplant 5.0x5.0cm 2x2 - [id number] Implanted:Qty : 1 on 06/24/2020 by Madi Kaur MD at OR [facility] B ALICEA : AESCULAP [id number] 11/18/2024 [id number] / [id number] / [id number] Plate Ti Lo Pro Str 2h 421.502 - [id number] Implanted:Qty : 2 on 06/24/2020 by Madi Kaur MD at OR [facility] Right: Head SYNTHES MAXILLOFACIAL 421.502 / / Plate Bx Ti [id number] 4h 421.521 - [id number] Implanted:Qty : 1 on 06/24/2020 by Madi Kaur MD at OR [facility] Right: Head SYNTHES MAXILLOFACIAL 421.521 / / Screw Ti Lo Pro Sd 4mm 400.834 - [id number] Implanted:Qty : 7 on 06/24/2020 by Madi [...] Care Agent [phone] [id number] (Home) Care Teams Harness Builder Relationship Specialty Start Date End Date Apolinar Wayne DO [address] [facility] [place] [facility] [address] PCP - General Internal Medicine 11/15/23 documented as of this encounter
--- OUTSIDE RECORDS SUMMARY | 2024-05-06 12:24 | External Medical Summary | Summary of Care ---
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) 01/17/2024,03/08/2023 Covid-19, Mrna, Lnp-s, Pf, B ivalent, 30 Mcg, IM, 12 yrs and above ([facility]) 04/13/2022 H1N1 2009 Influenza, IM 12/10/2019,04/01/2009 Pneumococcal [...] this encounter Medical Devices Implanted Type Area Band Machine Operator Device Identifier Shelf Expiration Date Model / Serial / Lot Graft Lyoplant 5.0x5.0cm 2x2 - [id number] Implanted:Qty : 1 on 06/24/2020 by Madi [place]aur MD [place] [facility] [place]: Head B ALICEA : AUTUMNCULAP 11/18/2024 [id number] / / [id number] Graft Lyoplant 5.0x5.0cm 2x2 - [id number] Implanted:Qty : 1 on 06/24/2020 by Madi Kaur MD [place] [facility] B ALICEA : AESCULAP [id number] 11/18/2024 [id number] / [id number] / [id number] Graft Lyoplant 5.0x5.0cm 2x2 - [id number] Implanted:Qty : 1 on 06/24/2020 by Madi Kaur MD [place] [facility] [place]: Head B ALICEA : AESCULAP 06/24/2020 [id number] / / [id number] Graft Lyoplant 5.0x5.0cm 2x2 - [id number] Implanted:Qty : 1 on 06/24/2020 by Madi Kaur MD [place] [facility] B ALICEA : AESCULACleo [id number] 11/18/2024 [id number] / [id number] / [id number] Plate Ti Lo Pro Str 2h 421.502 - [id number] Implanted:Qty : 2 on 06/24/2020 by Madi Kaur MD [place] [facility] Right: Head SYNTHES MAXILLOFACIAL 421.502 / / Plate Bx Ti [id number] 4h 421.521 - [id number] Implanted:Qty : 1 on 06/24/2020 by Madi Kaur MD [place] [facility] Right: Head SYNTHES MAXILLOFACIAL 421.521 / / Screw Ti Lo Pro Sd 4mm 400.834 - [id number] Implanted:Qty : 7 on 06/24/2020 by Madi Kaur MD [place] [facility] Right: Head SYNTHES MAXILLOFACIAL 400.834 / / [...] Communication Aimee Lam Spouse Health Care Agent [phone] (Home) Care Teams Integrity Director Relationship Specialty Start Date End Date Apolinar Wayne DO [address] [place] [address] PCP - General Internal Medicine 11/15/23 documented as of this encounter
[2024-05-06] MEDS: SODIUM CHLORIDE 0.9% 1,000 ML IV ONE (12:55)
--- NOTE | 2024-05-06 13:07 | Emergency Department Note ---
Impression & Plan Pneumonia, Acute dehydration, Leukocytosis, Glioblastoma ED Provider Note NAME: JADE VALENCIA AGE: 73 SEX: M : 1950 ARRIVES VIA: Ambulance INFORMANT: [] ED PROVIDER(S): [Bradley Chao MD] CHIEF COMPLAINT: Weakness HISTORY OF PRESENT ILLNESS: The patient is a 73-year-old male with a glioblastoma. He has had surgery and apparently, there is no more that can be done. He was on hospice for some time but is no longer on this service. The patient is brought to the ED today for weakness, dehydration and a worsening overall condition. The patient did leave our hospital 3 days ago. Currently, his is caring for him, she is at the bedside, she no longer is able to provide the care he needs. PMHx/PSHx/Social Hx: See Below PHYSICAL EXAM: GENERAL: Patient is in no acute distress. HEENT: No acute trauma, normocephalic atraumatic, mucous membranes dry, no nasal congestion. NECK: No stridor, no adenopathy, no meningismus, trachea is midline. LUNGS: Clear to auscultation bilaterally when listening anterior, no wheeze, no rhonchi, breath sounds equal. HEART: Without murmurs gallops or rubs, regular rate and rhythm. ABDOMEN: Soft, nontender, no peritonitis. EXTREMITIES: No cyanosis. No significant edema. NEUROLOGIC: Awake but currently nonverbal. SKIN: No jaundice, no diaphoresis. DIFFERENTIAL DIAGNOSIS: Worsening glioblastoma, dehydration, electrolyte imbalance, UTI, aspiration, among others. EMERGENCY DEPARTMENT PROCEDURES: MEDICAL DECISION MAKING: There is a mild leukocytosis, this certainly could be consistent with infection. No worrisome anemia. The platelet count was low at 91. No renal failure or significant electrolyte abnormality. Lactic acid level was not elevated making severe sepsis less likely. There were some subtle liver enzyme elevations found. The patient appeared to be in a euthyroid state. ECG showed a normal sinus rhythm, no acute ischemia. Cardiac enzyme testing x 1 was not consistent with acute cardiac injury. Chest x-ray showed a potential right lung pneumonia. On exam, the patient appeared quite dehydrated. The patient was given IV ceftriaxone as antibiotic coverage. He was given a liter of IV saline for hydration. The patient presents weak and dehydrated. He may have aspiration pneumonia. He has a glioblastoma for which no further care is possible. I spoke to the patient's . The patient is going require some sort of hospice/palliative care. She is no longer able to adequately care for him as he has had a significant decline in his health. He just left the hospital a few days ago. I did speak with case management, the on-call hospitalist has been consulted. Prior/Outside records/notes reviewed: Discharge summary note from 05/03/2024 describing his hospitalization, his course and plan outpatient. ECG per my interpretation: Indication was weakness. The ECG shows a normal sinus rhythm with a rate of 82. There is diffuse nonspecific ST change. There is some baseline artifact. There is no acute ST elevation, no PVCs but the QTc was 476. Continuous Cardiac Monitoring per my interpretation: An order was placed for continuous cardiac monitoring. The monitor shows a rate of 82 with normal sinus rhythm. Imaging/x-ray results per my interpretation: Chest x-ray shows right mid to upper lung congestion, possibly pneumonia. No pneumothorax. Chronic Medical/Social conditions affecting care: History of glioblastoma Care/Management discussed with: Case management, the on-call hospitalist. Level of care consideration(s): After review of the information above and other included data: --I believe the patient requires escalation of care to admission DISPOSITION: Admission Past Med/Surg History Problem List (Updated 05/06/24 @ 15:19 by Bradley Chao MD) Glioblastoma (Acute) Leukocytosis (Acute) Acute dehydration (Acute) Pneumonia (Acute) History of seizure Thrombocytopenia (Acute) Ambulatory dysfunction (Acute) Generalized weakness (Acute) Vision loss, left eye Discussion about advance care planning held with family member Palliative care by specialist Weakness generalized Adult failure to thrive (Acute) Recurrent falls (Acute) Concussion without loss of consciousness (Acute) Diabetes mellitus with hypoglycemia, with long-term current use of insulin Orthostatic hypotension Fall (Acute) Weakness (Acute) Recurrent brain tumor (Chronic 12/06/23) H/O craniotomy 06/24/20 for right temporal GBM 01/31/24 at [facility] 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) Medical History Diabetes Pulmonary hypertension Steroid-induced hyperglycemia Insomnia BPH (benign prostatic hyperplasia) Degenerative disc disease Severe protein-calorie malnutrition Fatigue Acute metabolic encephalopathy DVT prophylaxis Acute alteration in mental status History of pulmonary embolism Seizure History of agent [place] exposure Anxiety Acute deep vein thrombosis (DVT) of left lower extremity Elevated beta-hydroxybutyrate Elevated AST (SGOT) Hyperglycemia due to type 2 diabetes mellitus Acute pulmonary embolism BPH (benign prostatic hyperplasia) Barretts esophagus DM type 2 (diabetes mellitus, type 2) Surgical History H/O prostate biopsy S/P brain surgery History of cataract surgery LEFT History of anesthesia reaction REMOTE HX - WITH ONE SURGERY (PT UNSURE WHAT SURGERY) - SLEPT FOR 2 DAYS AFTER, NO -RE-OCCURENCE History of endoscopy History of colonoscopy History of foot surgery L History of tonsillectomy and adenoidectomy H/O shoulder surgery R X 2 - MOST RECENT: DEC 2018 Family History Father , 72yo Diabetes Hypertension Sister Cancer Brain tumor 42yo Mother , 80yo Myocardial infarction Son No problems noted. Son No problems noted. 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 [employer] Feels Safe at Home: Yes Diet: regular caffeine: Yes (2 cups/day) during the past year weight has: decreased > 10 lbs Assistive Devices: Scooter/Electric Scooter and Walker Allergies Allergies Allergy/AdvReac Type Severity Reaction Status Date / Time erythromycin base AdvReac Unknown nausea/vomi Verified 12/11/21 09:20 ting Home Meds Home Medications Medication Instructions Recorded Confirmed pantoprazole 40 mg tablet,delayed 40 mg PO QAM 06/18/18 05/06/24 release multivitamin 1 tab PO DAILY 08/21/19 05/06/24 carvedilol 3.125 mg tablet 3.125 mg PO BID 07/31/20 05/06/24 diclofenac sodium 1 % topical gel 2 g topical QID PRN Pain 07/31/20 05/06/24 polyethylene glycol 3350 17 17 g PO DAILY PRN constipation 07/31/20 05/06/24 gram/dose oral powder (Miralax) ergocalciferol (vitamin D2) 10 mcg 10 mcg PO DAILY 07/10/21 05/06/24 (400 unit) tablet sertraline 100 mg tablet (Zoloft) 100 mg PO DAILY 12/27/23 05/06/24 gabapentin 300 mg capsule 300 mg PO TID 03/02/24 05/06/24 levetiracetam 750 mg tablet 750 mg PO UD 03/02/24 05/06/24 magnesium oxide 420 mg tablet 420 mg PO HS 03/02/24 05/06/24 atorvastatin 80 mg tablet 80 mg PO DAILY 04/10/24 05/06/24 docusate sodium 100 mg tablet 100 mg PO BID PRN Constipation 04/10/24 05/06/24 insulin glargine 100 unit/mL (3 12 unit subcut UD 04/10/24 05/06/24 mL) subcutaneous pen lomustine 40 mg capsule 40 mg PO UD 04/10/24 05/06/24 lorazepam 0.5 mg tablet 0.5 mg PO TID PRN Anxiety 04/10/24 05/06/24 Previous Rx's Medication Instructions Recorded finasteride 5 mg tablet 5 mg PO HS #0 tabs 03/05/24 tamsulosin 0.4 mg capsule 0.4 mg PO HS #0 caps 03/05/24 amlodipine 5 mg tablet (Norvasc) 5 mg PO QAM #30 tabs 04/17/24 Results & Data (ED) Vital Signs Vital Signs - 24 hr 05/06/24 11:57 05/06/24 12:01 05/06/24 12:01 Temperature 36.5 C Temperature Source Oral Pulse Rate 100 H Pulse Rate [Apical] 79 Pulse Rate from SpO2 Sensor Respiratory Rate 18 18 Blood Pressure 132/98 Blood Pressure Mean 109 Pulse Oximetry 96 95 Oxygen Delivery Method Room Air Room Air Room Air Sepsis Recent Fever Within 48 Hours No Sepsis New/Unexplained Change in Mental Status N/A Sepsis Action Taken by Nursing No Action Required 05/06/24 12:19 05/06/24 12:24 05/06/24 12:25 Temperature Temperature Source Pulse Rate 83 82 Pulse Rate [Apical] Pulse Rate from SpO2 Sensor 80 Respiratory Rate 16 Blood Pressure 132/98 Blood Pressure Mean 111 Pulse Oximetry 96 Oxygen Delivery Method Sepsis Recent Fever Within 48 Hours Sepsis New/Unexplained Change in Mental Status Sepsis Action Taken by Nursing 05/06/24 12:30 05/06/24 12:31 05/06/24 12:31 Temperature Temperature Source Pulse Rate 79 Pulse Rate [Apical] Pulse Rate from SpO2 Sensor 80 Respiratory Rate 11 L Blood Pressure 143/86 H 143/86 H Blood Pressure Mean 104 104 Pulse Oximetry 95 Oxygen Delivery Method Sepsis Recent Fever Within 48 Hours Sepsis New/Unexplained Change in Mental Status Sepsis Action Taken by Nursing 05/06/24 12:31 05/06/24 12:45 05/06/24 12:48 Temperature Temperature Source Pulse Rate 79 74 Pulse Rate [Apical] Pulse Rate from SpO2 Sensor 79 75 Respiratory Rate 13 15 Blood Pressure 143/86 H Blood Pressure Mean 104 Pulse Oximetry 94 94 Oxygen Delivery Method Sepsis Recent Fever Within 48 Hours Sepsis New/Unexplained Change in Mental Status Sepsis Action Taken by Nursing 05/06/24 13:00 05/06/24 13:00 05/06/24 13:00 Temperature Temperature Source Pulse Rate Pulse Rate [Apical] Pulse Rate from SpO2 Sensor Respiratory Rate Blood Pressure 139/81 139/81 139/81 Blood Pressure Mean 108 108 108 Pulse Oximetry Oxygen Delivery Method Sepsis Recent Fever Within 48 Hours Sepsis New/Unexplained Change in Mental Status Sepsis Action Taken by Nursing 05/06/24 13:03 05/06/24 13:18 05/06/24 13:24 Temperature Temperature Source Pulse Rate 76 78 78 Pulse Rate [Apical] Pulse Rate from SpO2 Sensor 77 78 78 Respiratory Rate 15 16 15 Blood Pressure Blood Pressure Mean Pulse Oximetry 92 94 93 Oxygen Delivery Method Sepsis Recent Fever Within 48 Hours Sepsis New/Unexplained Change in Mental Status Sepsis Action Taken by Nursing 05/06/24 13:30 05/06/24 13:36 05/06/24 13:42 Temperature Temperature Source Pulse Rate 80 79 Pulse Rate [Apical] Pulse Rate from SpO2 Sensor 81 79 Respiratory Rate 17 13 Blood Pressure 161/83 H Blood Pressure Mean 118 Pulse Oximetry 96 95 Oxygen Delivery Method Sepsis Recent Fever Within 48 Hours Sepsis New/Unexplained Change in Mental Status Sepsis Action Taken by Nursing 05/06/24 13:51 05/06/24 14:00 05/06/24 14:21 Temperature Temperature Source Pulse Rate 80 76 78 Pulse Rate [Apical] Pulse Rate from SpO2 Sensor 80 77 78 Respiratory Rate 13 12 14 Blood Pressure Blood Pressure Mean Pulse Oximetry 94 95 96 Oxygen Delivery Method Sepsis Recent Fever Within 48 Hours Sepsis New/Unexplained Change in Mental Status Sepsis Action Taken by Nursing 05/06/24 14:30 05/06/24 14:30 05/06/24 14:30 Temperature Temperature Source Pulse Rate Pulse Rate [Apical] Pulse Rate from SpO2 Sensor Respiratory Rate Blood Pressure 149/85 H 149/85 H 149/85 H Blood Pressure Mean 116 116 116 Pulse Oximetry Oxygen Delivery Method Sepsis Recent Fever Within 48 Hours Sepsis New/Unexplained Change in Mental Status Sepsis Action Taken by Nursing 05/06/24 14:36 05/06/24 14:51 05/06/24 14:54 Temperature Temperature Source Pulse Rate 79 78 Pulse Rate [Apical] Pulse Rate from SpO2 Sensor 79 Respiratory Rate 14 9 L Blood Pressure Blood Pressure Mean Pulse Oximetry 94 96 Oxygen Delivery Method Room Air Sepsis Recent Fever Within 48 Hours Sepsis New/Unexplained Change in Mental Status Sepsis Action Taken by Nursing 05/06/24 14:55 Temperature Temperature Source Pulse Rate Pulse Rate [Apical] 77 Pulse Rate from SpO2 Sensor Respiratory Rate 16 Blood Pressure Blood Pressure Mean Pulse Oximetry Oxygen Delivery Method Sepsis Recent Fever Within 48 Hours Sepsis New/Unexplained Change in Mental Status Sepsis Action Taken by Snf Medications Current Medication List: was personally reviewed by me Laboratory Data Attestation: I reviewed the patient's lab results. 05/06/24 12:30 05/06/24 12:30 Lab Results 05/06/24 05/06/24 Range/Units 12:30 13:11 WBC 12.13 H (4.8-10.8) K/ul RBC 4.34 L (4.70-6.10) M/uL Hgb 13.6 L (14.0-18.0) g/dl Hct 39.7 L (42.0-52.0) % MCV 91.5 (80.0-100.0) fL MCH 31.3 (25.0-34.0) pg MCHC 34.3 (32.0-36.0) g/dL RDW Std Deviation 45.1 (36.4-46.3) fL RDW Coeff of Diandra 13.6 (11.5-14.5) % Plt Count 91 L (130-400) K/uL MPV 10.5 (9.4-12.4) fL Immature Gran % (Auto) 0.2 % Neut % (Auto) 83.6 % Lymph % (Auto) 9.9 % [place] % (Auto) 5.6 % Eos % (Auto) 0.5 % Baso % (Auto) 0.2 % Neut # (Auto) 10.14 H (1.40-6.50) K/uL Lymph # (Auto) 1.20 (1.20-3.40) K/uL [place] # (Auto) 0.68 H (0.11-0.59) K/uL Eos # (Auto) 0.06 (0.00-0.50) K/uL Baso # (Auto) 0.03 (0.00-0.20) K/uL Immature Gran # (Auto) 0.02 (0.01-0.20) K/uL Sodium 139 (136-145) mmol/L Potassium 3.8 (3.5-5.1) mmol/L Chloride 100 (98-107) mmol/L Carbon Dioxide 30 (21-32) mmol/L Anion Gap 9 (3-11) BUN 21 (6-23) mg/dl Creatinine 0.77 (0.6-1.4) mg/dl Est Cr Clr Drug Dosing 82.9 ml/min eGFR 93.36 BUN/Creatinine Ratio 27.3 H (10-20) Glucose 129 H (70-99(Fasting)) mg/dl Lactate 1.1 (0.4-2.0) mmol/L Calcium 9.0 (8.6-10.3) mg/dl Magnesium 1.8 (1.7-2.4) mg/dl Total Bilirubin 1.1 H (0.2-1.0) mg/dl AST 42 H (13-39) U/L ALT 38 (7-52) U/L Alkaline Phosphatase 187 H (34-104) U/L Troponin I High Sens 14.1 (0-20) pg/ml Total Protein 6.7 (6.0-8.3) gm/dl Albumin 3.4 (3.4-5.0) gm/dl Globulin 3.3 (2.5-4.0) gm/dl Albumin/Globulin Ratio 1.0 (0.9-2) TSH 0.959 (0.300-4.500) uIu/ml Administered Medications Discontinued Medications Sodium Chloride (Nss) 1,000 mls @ 999 mls/hr IV .Q1H1M ONE Stop: 05/06/24 13:44 Last Infusion: 05/06/24 14:51 Dose: Infused Documented By: Admin: 05/06/24 12:55 Dose: 999 mls/hr Documented By: MERON Ceftriaxone Sodium (Rocephin) 2,000 mg in 50 mls @ 100 mls/hr IV NOW STA Stop: 05/06/24 14:08 Last Infusion: 05/06/24 14:50 Dose: Infused Documented By: Admin: 05/06/24 14:01 Dose: 100 mls/hr Documented By: MERON Imaging Data Radiologist's Impression: Chest X-Ray 05/06/24 12:44 XR chest 1V portable CLINICAL HISTORY: weakness COMPARISON STUDY: Chest CT June 09, 2020. Chest radiograph 04/27/2024. FINDINGS: Lung volumes are normal. Hazy right midlung opacity is present. The left lung is clear. There is no pneumothorax or pleural effusion. Cardiac size is normal. Mediastinal contours are normal. There is no evidence for pulmonary edema. IMPRESSION: Hazy right midlung opacity. This favors a small focus of pneumonia. Radiographic follow-up to ensure resolution is recommended. ACT 112: Negative or not required by law. Electronically signed by: Edmundo Lara M.D. 05/06/2024 1:20 PM Discharge Plan Visit Data Chief Complaint: Weakness Stated Complaint: WEAKNESS, HEAD PAIN ED Provider: Bradley Chao Discharge Problem: Pneumonia, Acute dehydration, Leukocytosis, Glioblastoma Patient Disposition: Admitted As Inpatient Condition: Serious Forms Stand Alone Forms: My [employer] Prescriptions Prescriptions: No Action diclofenac sodium 1 % gel 2 g topical QID PRN (Reason: Pain) Rx Instructions: apply to single elbow, wrist or hand; for hand includes palm/fingers/back of hand polyethylene glycol 3350 [Miralax] 17 gram/dose powder 17 g PO DAILY PRN (Reason: constipation ) sertraline [Zoloft] 100 mg tablet 100 mg PO DAILY ergocalciferol (vitamin D2) 10 mcg (400 unit) tablet 10 mcg PO DAILY multivitamin Tablet 1 tab PO DAILY pantoprazole 40 mg Tablet,Delayed Release (Dr/Ec) 40 mg PO QAM carvedilol 3.125 mg tablet 3.125 mg PO BID atorvastatin 80 mg tablet 80 mg PO DAILY Rx Instructions: last filled 01/15 100 day supply lomustine 40 mg Capsule 40 mg PO UD Hold Instructions: Resume on 04/26/24. Hold until further discussion with your cancer doctor as outpatient. Rx Instructions: Take 4 Capsules by mouth every 6 weeks. Take on an empty stomach. last filled 04/04 42 day supply lorazepam 0.5 mg tablet 0.5 mg PO TID PRN (Reason: Anxiety) docusate sodium 100 mg Tablet 100 mg PO BID PRN (Reason: Constipation) insulin glargine 100 unit/mL (3 mL) insulin pen 12 unit SUBCUT UD Rx Instructions: 12u subcut daily. last filled 02/19 28 day supply amlodipine [Norvasc] 5 mg Tablet 5 mg PO QAM Qty: 30 0RF magnesium oxide 420 mg Tablet 420 mg PO HS gabapentin 300 mg capsule 300 mg PO TID levetiracetam 750 mg tablet 750 mg PO UD Rx Instructions: 750 mg po bid. last filled 02/19 30 day supply tamsulosin 0.4 mg Capsule 0.4 mg PO HS Qty: 0 0RF finasteride 5 mg Tablet 5 mg PO HS Qty: 0 0RF Referrals Referrals: Apolinar Wayne DO [Primary Care Provider] - Discharge Problem: Pneumonia Qualifiers: Pneumonia type: due to unspecified organism Laterality: right Lung location: u nspecified part of lung Qualified Code(s): J18.9 - Pneumonia, unspecified organism Leukocytosis Qualifiers: Leukocytosis type: unspecified Qualified Code(s): D72.829 - Elevated white blood cell count, unspecified
[2024-05-06 13:12] LABS: Basophils # (auto) 0.03 K/uL (0.00-0.20); Basophils % (auto) 0.2 %; Eosinophils # (auto) 0.06 K/uL (0.00-0.50); Eosinophils % (auto) 0.5 %; Hematocrit (blood only) 39.7 % (42.0-52.0); Hemoglobin 13.6 g/dl (14.0-18.0); Immature Granulocytes # (auto) 0.02 K/uL (0.01-0.20); Immature Granulocytes % (auto) 0.2 %; Lymphocytes % (auto) 9.9 %; Mean Corpuscular Hemoglobin 31.3 pg (25.0-34.0); Mean Corpuscular Hgb Conc 34.3 g/dL (32.0-36.0); Mean Corpuscular Volume 91.5 fL (80.0-100.0); Mean Platelet Volume 10.5 fL (9.4-12.4); Monocytes # (auto) 0.68 K/uL (0.11-0.59); Monocytes % (auto) 5.6 %; Neutrophils # (auto) 10.14 K/uL (1.40-6.50); Neutrophils % (auto) 83.6 %; Platelet Count 91 K/uL (130-400); RDW Coefficient of Variation 13.6 % (11.5-14.5); RDW Standard Deviation 45.1 fL (36.4-46.3); Red Blood Count 4.34 M/uL (4.70-6.10); White Blood Count 12.13 K/ul (4.8-10.8)
--- NOTE | 2024-05-06 13:22 | XRay Report ---
XR chest 1V portable CLINICAL HISTORY: weakness COMPARISON STUDY: Chest CT June 09, 2020. Chest radiograph 04/27/2024. FINDINGS: Lung volumes are normal. Hazy right midlung opacity is present. The left lung is clear. The re is no pneumothorax or pleural effusion. Cardiac size is normal. Mediastinal contours are normal. T here is no evidence for pulmonary edema. IMPRESSION: Hazy right midlung opacity. This favors a small focus of pneumonia. Radiographic follow- up to ensure resolution is recommended. ACT 112: Negative or not required by law. Electronically signed by: Edmundo Lara M.D. 05/06/2024 1:20 PM
[2024-05-06 13:39] LABS: Albumin Level 3.4 gm/dl (3.4-5.0); BUN Creatinine Ratio 27.3 (10-20); Bilirubin,Total 1.1 mg/dl (0.2-1.0); Creatinine Clr Calc Pharmacy 82.9 ml/min; Globulin 3.3 gm/dl (2.5-4.0); Magnesium 1.8 mg/dl (1.7-2.4); Potassium 3.8 mmol/L (3.5-5.1); Total Protein 6.7 gm/dl (6.0-8.3)
[2024-05-06 13:45] LABS: Troponin I High Sensitivity 14.1 pg/ml (0-20)
[2024-05-06 13:54] LABS: Thyroid Stimulating Hormone 0.959 uIu/ml (0.300-4.500)
[2024-05-06] MEDS: cefTRIAXone SODIUM 2,000 MG/50 ML BAG IV STA (14:01)
[2024-05-06] MEDS: PIPERACILLIN/TAZOBACTAM 4.5 GM/100 ML BAG IV STA (18:05)
[2024-05-06] MEDS: SODIUM CHLORIDE 0.9% 500 ML IV ONE (18:07)
[2024-05-06 18:28] LABS: Appearance Urine Cloudy (Clear); Bacteria Urine Automated 4+ (None Seen); Bilirubin Urine 1+ (Negative); Blood Urine 1+ (Negative); Cast Urine Automated 0-2 /lpf (0-2); Color Urine Dark Yellow; Glucose Urine UA Negative (Negative); Ketones Urine 1+ (Negative); Leukocyte Esterase Urine 2+ (Negative); Nitrite Urine Positive (Negative); Protein Urine Trace (Negative); RBC Urine Automated 0-2 /hpf (0-2); Specific Gravity Urine 1.024 (1.000-1.030); Urobilinogen Urine Negative (Negative); WBC Urine Automated >50 /hpf (0-5); pH Urine 5.5 (4.5-7.5)
[2024-05-06] MEDS ORDERED: [UNRECOGNIZED DRUG - OTHER] PO SCH (19:10)
[2024-05-06] MEDS ORDERED: POLYETHYLENE (MIRALAX) 17 GM PACK PO PRN (19:10)
[2024-05-06] MEDS ORDERED: MELATONIN 3 MG TAB PO PRN (19:10)
[2024-05-06] MEDS ORDERED: LORazepam 0.5 MG TAB PO PRN (19:10)
[2024-05-06] MEDS ORDERED: ACETAMINOPHEN 325 MG TAB PO PRN (19:10)
[2024-05-06] MEDS: D5W AND LACTATED RINGERS 1,000 ML IV SCH (19:51)
--- NOTE | 2024-05-06 19:59 | History & Physical Report ---
Date of Service May 06, 2024 Assessment & Plan (1) Glioblastoma: Plan: -patient is s/p resection plus adjunct radiation, then recurrent resection, now on lomustine for chemotherapy -see above, patient is showing signs of decline, with prognosis on scale of weeks to months -patient does not want aggressive therapies at this time, goal is to stay out of hospital and be comfortable when he leaves -would like optimized this admission Plan: -case management consult for hospice and placement at discharge, care needs exceed ability to be taken care of at home -hold lomustine -will discuss starting decadron 4mg for improved energy and reduction vasogenic edema in morning (2) Acute dehydration: Plan: -secondary to poor PO intake Plan: -fluid resuscitation -speech therapy for dysphagia -PT/OT -maintenance fluids until discharge (3) Recurrent brain tumor: Plan: -see above (4) Dysphagia: Plan: -2/2 to resections and glioblastoma Plan: -see above (5) Pressure ulcers of skin of multiple topographic sites: Plan: -2/2 bedbound and overall decline Plan: -wound care consult, appreciate recs (6) DM type 2 (diabetes mellitus, type 2): Plan: -hold lantus given change in condition -diabetes protocol (7) Palliative care by specialist: Plan: -see above, DNRDNI -will optimize this admission, discharge to facility with hospice services (8) Anxiety: Plan: -continue ativan tid prn -continue sertraline (9) CAP (community acquired pneumonia): Plan: -haziness in right lung -immunocompromised given chemotherapy, also noted aspiration Plan: -treat with ceftriaxone/doxy (10) UTI (urinary tract infection): Plan: -noted on urinalysis -immunocompromised Plan: -on abx as above Plan Feeding/fluids: minced/moist Analgesia: tylenol Sedation: ativan prn (home med) Thromboprophylaxis: SCD given platlets Head up position: na Ulcer prophylaxis: protonix Glycemic control: insulin protocol Spontaneous breathing trial: na Bowel care: miralax prn Indwelling catheter removal: na Deescalation of antibiotics: ceftriaxone/azithro I spent a total of 80 minutes in direct patient care, including [id number] time with the patient and/or family, reviewing medical records, ordering and reviewing diagnostic tests, and coordinating care with other healthcare providers. This time includes: history taking, physical examination, medical decision making, counseling, ECG interpretation, imaging interpretation, lab interpretation, orders, and education, excluding time spent in the performance of separately billed services. I spent a total of 60 minutes providing advanced care planning to the patient and/or family, including [id number] time discussing the patient's health status, prognosis, and treatment options. This time includes specific activities such as: discussing advance directives, goals of care, prognostication, and end-of-life planning. Admission and Anticipated Discharge Date Admission Date: May 06, 2024 History of Present Illness Chief Complaint: -dehydration Primary Care Provider: Apolinar Wayne, DO 73 yo male with pmhx of glioblastoma s/p surgical resection in 2020, with recurrence glioblastoma and s/p surgery 01/31/24 at [facility], history seizure with first glioblastoma without any recurrent seizures, HTN, dyslipidemia, history DVT/PE, anticoagulated on Xarelto, DM II, pulmonary hypertension, PTSD, depression, GERD, BPH presented to ER with weakness. Per inpatient chart review history of [facility] hospitalization 03/02/2024-03/05/2024 for weakness, [facility] and recurrent [facility] hospitalization 04/11/24-04/17/24 for weakness, recent hospitalization for similar concerns on 04/27-05/03. patient seen and examined at bedside. , son, daughter and grandchildren at bedside as well. Patient is doing okay today. Since discharge, he has been having difficulty with oral intake, and 's been having difficulties meeting his care needs at home. PT OT and home health aide have not been sufficient to help with needs. Patient has been struggling to swallow, choking on many bites and not having sufficient oral intake. He has been having some tremor in his right hand and arm. Advanced Care Plannin hour was spent discussing goals and values with patient, , children, grandchildren. We started off the the meeting by introducing ourselves and our role in the care team and in the family. A long discussion occurred in regards to his glioblastoma treatment, briefly described here as initial surgery and radiation with what appears to be a sustained remission for several years, with recurrent surgical intervention for recurrent glioblastoma this past January. This was not followed with radiation. Currently on boosting as a chemotherapy agent for adjunct treatment for recurrent resistant glioblastoma. I took time to discuss the standard of care for glioblastoma, which includes the above and consideration for immunotherapy to help reduce brain inflammation and swelling postsurgery and radiation. Disc ussed that glioblastoma is an extremely difficult disease, in which patient has long outlived the expected prognosis which is on the scale of 12 to 18 months, usually no further than 24 months with surgery and radiation. We discussed the patient's recurrent hospitalizations and worsening weakness. we discussed the patient's ongoing decline, including having more difficulty swallowing both solids and liquids, and frequent readmissions. When asked about prognosis, I discussed given that the decline has occurred over matter a weeks, patient is having difficulty swallowing, understanding that feeding tubes do not and improve prognosis and terminal cancer, worsening left-sided weakness, worsening deficits, prognosis is likely on the scale of weeks, likely not further than months. 3 care options were offered to the patient and family. 1 care option is to pursue all medical therapies and keep returning to the hospital. Another care path is to do what we can during this hospitalization wi th a discharged to comfort focused care and hospice. Last option is to focus on comfort at this time. Hospice was explained at length. Risks and benefits of hospice were explained. CODE STATUS was also discussed at length risk and benefits were explained at length. Patient indicates that his family is the most important thing to him and spending time with family. He indicates he would not want to return to the hospital. Given that the most important thing to him is family, and given the poor prognosis, I recommended doing what we can do to optimize his condition this admission with discharge to a fdc with hospice on board to focus on comfort would be reasonable. Family agrees that this would be reasonable, and patient states that this is what he wants. We also discussed resuscitation, patient saying he would not want aggressive measures taken. Therefore patient is DNR/DNI, optimizing his condition during this hospitalization, with discharge to a facility with hospice services and focus on comfort. Allergies Allergy/AdvReac Type Severity Reaction Status Date / Time erythromycin base AdvReac Unknown nausea/vomi Verified 12/11/21 09:20 ting Home Medications Medication Instructions Recorded Confirmed Type pantoprazole 40 mg tablet,delayed 40 mg PO QAM 06/18/18 05/06/24 History release multivitamin 1 tab PO DAILY 08/21/19 05/06/24 History carvedilol 3.125 mg tablet 3.125 mg PO BID 07/31/20 05/06/24 History diclofenac sodium 1 % topical gel 2 g topical QID PRN Pain 07/31/20 05/06/24 History polyethylene glycol 3350 17 17 g PO DAILY PRN constipation 07/31/20 05/06/24 History gram/dose oral powder (Miralax) ergocalciferol (vitamin D2) 10 mcg 10 mcg PO DAILY 07/10/21 05/06/24 History (400 unit) tablet sertraline 100 mg tablet (Zoloft) 100 mg PO DAILY 12/27/23 05/06/24 History gabapentin 300 mg capsule 300 mg PO TID 03/02/24 05/06/24 History levetiracetam 750 mg tablet 750 mg PO UD 03/02/24 05/06/24 History magnesium oxide 420 mg tablet 420 mg PO HS 03/02/24 05/06/24 History finasteride 5 mg tablet 5 mg PO HS #0 tabs 03/05/24 05/06/24 Rx tamsulosin 0.4 mg capsule 0.4 mg PO HS #0 caps 03/05/24 05/06/24 Rx atorvastatin 80 mg tablet 80 mg PO DAILY 04/10/24 05/06/24 History docusate sodium 100 mg tablet 100 mg PO BID PRN Constipation 04/10/24 05/06/24 History insulin glargine 100 unit/mL (3 12 unit subcut UD 04/10/24 05/06/24 History mL) subcutaneous pen lomustine 40 mg capsule 40 mg PO UD 04/10/24 05/06/24 History lorazepam 0.5 mg tablet 0.5 mg PO TID PRN Anxiety 04/10/24 05/06/24 History amlodipine 5 mg tablet (Norvasc) 5 mg PO QAM #30 tabs 04/17/24 05/06/24 Rx Past Med/Surg History Problem List (Updated 05/06/24 @ 20:26 by Daniel Martinez MD) UTI (urinary tract infection) CAP (community acquired pneumonia) Dysphagia Pressure ulcers of skin of multiple topographic sites Glioblastoma (Acute) Leukocytosis (Acute) Acute dehydration (Acute) Pneumonia (Acute) History of seizure Thrombocytopenia (Acute) Ambulatory dysfunction (Acute) Generalized weakness (Acute) Vision loss, left eye Discussion about advance care planning held with family member Palliative care by specialist Weakness generalized Adult failure to thrive (Acute) Recurrent falls (Acute) Concussion without loss of consciousness (Acute) Diabetes mellitus with hypoglycemia, with long-term current use of insulin Orthostatic hypotension Fall (Acute) Weakness (Acute) Recurrent brain tumor (Chronic 12/06/23) H/O craniotomy 06/24/20 for right temporal GBM 01/31/24 at [facility] 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) Medical History Diabetes Pulmonary hypertension Steroid-induced hyperglycemia Insomnia BPH (benign prostatic hyperplasia) Degenerative disc disease Severe protein-calorie malnutrition Fatigue Acute metabolic encephalopathy DVT prophylaxis Acute alteration in mental status History of pulmonary embolism Seizure History of agent Hughes exposure Anxiety Acute deep vein thrombosis (DVT) of left lower extremity Elevated beta-hydroxybutyrate Elevated AST (SGOT) Hyperglycemia due to type 2 diabetes mellitus Acute pulmonary embolism BPH (benign prostatic hyperplasia) Barretts esophagus DM type 2 (diabetes mellitus, type 2) Surgical History H/O prostate biopsy S/P brain surgery History of cataract surgery LEFT History of anesthesia reaction REMOTE HX - WITH ONE SURGERY (PT UNSURE WHAT SURGERY) - SLEPT FOR 2 DAYS AFTER, NO -RE-OCCURENCE History of endoscopy History of colonoscopy History of foot surgery L History of tonsillectomy and adenoidectomy H/O shoulder surgery R X 2 - MOST RECENT: DEC 2018 Family History Father , 72yo Diabetes Hypertension Sister Cancer Brain tumor 42yo Mother , 80yo Myocardial infarction Son No problems noted. Son No problems noted. 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 EARS, NOSE, AND THROAT: difficulty swallowing CARDIOVASCULAR: Patient denies chest pains, palpitations, orthopnea and paroxysmal nocturnal dyspnea. RESPIRATORY: No dyspnea on exertion, no wheezing or cough. GI: No nausea, vomiting, diarrhea, constipation, abdominal pain, hematochezia or melena. : No urinary hesitancy or dribbling. No nocturia or urinary frequency. No abnormal urethral discharge. MUSCULOSKELETAL: No myalgias or arthralgias. NEUROLOGIC: No chronic headaches, no seizures. Patient denies numbness, tingling or weakness. PSYCHIATRIC: Patient denies problems with mood disturbance. No problems with anxiety. ENDOCRINE: No excessive urination or excessive thirst. DERMATOLOGIC: pressure ulcers Physical Exam Physical Exam: Gen: A&O 3 NAD HEENT: NCAT, EOMI, not icteric. External ears normal. No rhinorrhea. dry mucous membranes. Noted chronic facial droop Neck: Supple, full range of motion, no observable masses, No meningeal sign. Lungs: rhonchi in RLL, RML CV: RRR, no edema. Abdomen: Soft, nondistended, No rebound tenderness. MSK: No joint swelling, no redness. Skin: No rashes, petechiae, lesions. Normal color per patient. Neuro: chronic left sided deficits noted Psych: Appropriate for situation. Results & Data Results & Data Vital Signs (Past 12 Hours) Vital Signs Temp Pulse Pulse Resp BP BP Pulse Ox 05/06/24 17:00 79 14 153/93 H 95 05/06/24 16:22 79 05/06/24 15:30 77 14 146/79 H 94 05/06/24 14:55 77 16 05/06/24 14:54 96 05/06/24 14:51 78 9 L 05/06/24 14:36 79 14 94 05/06/24 14:30 149/85 H 05/06/24 14:30 149/85 H 05/06/24 14:30 149/85 H 05/06/24 14:21 78 14 96 05/06/24 14:00 76 12 95 05/06/24 13:51 80 13 94 05/06/24 13:42 79 13 95 05/06/24 13:36 80 17 96 05/06/24 13:30 161/83 H 05/06/24 13:24 78 15 93 05/06/24 13:18 78 16 94 05/06/24 13:03 76 15 92 05/06/24 13:00 139/81 05/06/24 13:00 139/81 05/06/24 13:00 139/81 05/06/24 12:48 74 15 94 05/06/24 12:45 79 13 94 05/06/24 12:31 143/86 H 05/06/24 12:31 143/86 H 05/06/24 12:31 143/86 H 05/06/24 12:30 79 11 L 95 05/06/24 12:25 82 05/06/24 12:24 83 16 96 05/06/24 12:19 132/98 05/06/24 12:01 79 18 95 05/06/24 12:01 05/06/24 11:57 36.5 C 100 H 18 132/98 96 O2 Del Method 05/06/24 17:00 Room Air 05/06/24 16:22 05/06/24 15:30 Room Air 05/06/24 14:55 05/06/24 14:54 Room Air 05/06/24 14:51 05/06/24 14:36 05/06/24 14:30 05/06/24 14:30 05/06/24 14:30 05/06/24 14:21 05/06/24 14:00 05/06/24 13:51 05/06/24 13:42 05/06/24 13:36 05/06/24 13:30 05/06/24 13:24 05/06/24 13:18 05/06/24 13:03 05/06/24 13:00 05/06/24 13:00 05/06/24 13:00 05/06/24 12:48 05/06/24 12:45 05/06/24 12:31 05/06/24 12:31 05/06/24 12:31 05/06/24 12:30 05/06/24 12:25 05/06/24 12:24 05/06/24 12:19 05/06/24 12:01 Room Air 05/06/24 12:01 Room Air 05/06/24 11:57 Room Air Laboratory Results -personally reviewed, leukocytosis of 12 noted, elevated alk phos likely in setting of dehydration, UA suggestive of possible UTI, chest xray concerning for aspiriation Diagnostic Findings Chest X-Ray 05/06/24 12:44 XR chest 1V portable CLINICAL HISTORY: weakness COMPARISON STUDY: Chest CT June 09, 2020. Chest radiograph 04/27/2024. FINDINGS: Lung volumes are normal. Hazy right midlung opacity is present. The left lung is clear. There is no pneumothorax or pleural effusion. Cardiac size is normal. Mediastinal contours are normal. There is no evidence for pulmonary edema. IMPRESSION: Hazy right midlung opacity. This favors a small focus of pneumonia. Radiographic follow-up to ensure resolution is recommended. ACT 112: Negative or not required by law. Electronically signed by: Edmundo Lara M.D. 05/06/2024 1:20 PM Medications Administered Carvedilol (Carvedilol 3.125 Mg Tab) 3.125 mg PO BID ALLEY Stop: 06/05/24 20:59 Last Admin: 05/06/24 20:10 Dose: 3.125 mg Documented By: [facility] Finasteride (Finasteride 5 Mg Tab) 5 mg PO HS ALLEY Stop: 06/05/24 20:59 Last Admin: 05/06/24 20:10 Dose: 5 mg Documented By: [facility] Gabapentin (Gabapentin 300 Mg Cap) 300 mg PO TID ALLEY Stop: 06/05/24 20:59 Last Admin: 05/06/24 20:10 Dose: 300 mg Documented By: [facility] Dextrose/Lactated Ringer's (D5w And Lactated Ringers) 1,000 mls @ 125 mls/hr IV .Q8H ALLEY Stop: 05/07/24 17:14 Last Admin: 05/06/24 19:51 Dose: 125 mls/hr Documented By: [facility] Levetiracetam (Levetiracetam 250 Mg Tab) 750 mg PO BID ALLEY Stop: 06/05/24 20:59 Last Admin: 05/06/24 20:10 Dose: 750 mg Documented By: [facility] Tamsulosin HCl (Tamsulosin Hcl 0.4 Mg Cap) 0.4 mg PO HS ALLEY Stop: 06/05/24 20:59 Last Admin: 05/06/24 20:11 Dose: 0.4 mg Documented By: [facility] Code Status & VTE Plan VTE Prophylaxis Plan VTE Prophylaxis will be ordered: Yes (4) Dysphagia Dysphagia type: unspecified Qualified Code(s): R13.10 - Dysphagia, unspecified (6) DM type 2 (diabetes mellitus, type 2) Diabetes mellitus half-way insulin use: with half-way use Diabetes mellitus complication status: without complication Qualified Code(s): E11.9 - Type 2 diabetes mellitus without complications; Z79.4 - intermediate teacher (current) use of insulin (9) CAP (community acquired pneumonia) Laterality: right Lung location: middle lobe of lung Qualified Code(s): J18.9 - Pneumonia, unspecified organism (10) UTI (urinary tract infection) Urinary tract infection type: acute cystitis Hematuria presence: with hematuria Qualified Code(s): N30.01 - Acute cystitis with hematuria
[2024-05-06] MEDS: FINASTERIDE 5 MG TAB PO SCH (20:10)
[2024-05-06] MEDS: GABAPENTIN 300 MG CAP PO SCH (20:10)
[2024-05-06] MEDS: carvediloL 3.125 MG TAB PO SCH (20:10)
[2024-05-06] MEDS: levETIRAcetam 250 MG TAB PO SCH (20:10)
[2024-05-06] MEDS: TAMSULOSIN HCL 0.4 MG CAP PO SCH (20:11)
[2024-05-06] MEDS ORDERED: GLUCOSE 40% GEL 15 GM TUBE PO PRN (20:22)
[2024-05-06] MEDS ORDERED: CARBOHYDRATES FOR HYPOGLYCEMIA PO PRN (20:22)
[2024-05-06] MEDS ORDERED: DEXTROSE 50% 50 ML SYRINGE IV PRN (20:22)
[2024-05-06] MEDS ORDERED: GLUCOSE 10 TAB/TUBE PO PRN (20:22)
[2024-05-06] MEDS ORDERED: GLUCAGON FOR INJ 1 MG VIAL SQ PRN (20:22)
[2024-05-06] MEDS: INSULIN ASPART PER UNIT CHARGE SC SCH (22:03)
[2024-05-06] MEDS: PIPERACILLIN/TAZOBACTAM 4.5 GM/100 ML BAG IV SCH (23:11)
[2024-05-07] MEDS: ACETAMINOPHEN 1,000 MG/100 ML VIAL IV STA (06:13)
[2024-05-07 08:25] LABS: Hematocrit (blood only) 33.5 % (42.0-52.0); Hemoglobin 11.4 g/dl (14.0-18.0); Mean Corpuscular Hemoglobin 30.8 pg (25.0-34.0); Mean Corpuscular Volume 90.5 fL (80.0-100.0); Mean Platelet Volume 9.9 fL (9.4-12.4); Platelet Count 76 K/uL (130-400); RDW Coefficient of Variation 13.4 % (11.5-14.5); RDW Standard Deviation 44.5 fL (36.4-46.3); White Blood Count 6.33 K/ul (4.8-10.8)
[2024-05-07 08:59] LABS: BUN Creatinine Ratio 14.1 (10-20); Calcium 8.1 mg/dl (8.6-10.3); Creatinine Clr Calc Pharmacy 89.9 ml/min; Potassium 3.3 mmol/L (3.5-5.1)
[2024-05-07] MEDS: ATORVASTATIN 40 MG TAB PO SCH (09:36)
[2024-05-07] MEDS: PANTOprazole 40 MG TAB PO SCH (09:36)
[2024-05-07] MEDS: SERTRALINE HCL 100 MG TABLET PO SCH (09:36)
[2024-05-07] MEDS: amLODIPine BESYLATE 5 MG TAB PO SCH (09:36)
[2024-05-07] MEDS: MULTIVITAMIN TAB PO SCH (09:36)
[2024-05-07] MEDS: ONDANSETRON INJ 2 MG/ML 2 ML VIAL IV PRN (09:55)
[2024-05-07] MEDS ORDERED: Nursing to Pharmacy Communication SCH (10:15)
[2024-05-07] MEDS ORDERED: LORazepam 2 MG/1 ML VIAL IV PRN (10:33)
--- NOTE | 2024-05-07 12:57 | Electrocardiogram Report ---
Test Reason : Blood Pressure : */* mmHG Vent. Rate : 82 BPM Atrial Rate : 82 BPM P-R Int : 184 ms QRS Dur : 82 ms QT Int : 408 ms P-R-T Axes : 94 54 53 degrees QTcB Int : 476 ms Normal sinus rhythm Nonspecific ST abnormality When compared with ECG of 27-Apr-2024 16:50, Nonspecific T wave abnormality now evident in Inferior leads Confirmed by Sae Tello ([id number]) on 05/07/2024 12:57:05 PM Referred By: Confirmed By: Sae Tello
--- NOTE | 2024-05-07 13:00 | Hospitalist Progress Note ---
Date of Service May 07, 2024 Assessment & Plan (1) Glioblastoma: Plan: -patient is s/p resection plus adjunct radiation, then recurrent resection, now on lomustine for chemotherapy -see above, patient is showing signs of decline, with prognosis on scale of weeks to months -patient does not want aggressive therapies at this time, goal is to stay out of hospital and be comfortable when he leaves -would like optimized this admission Plan: -case management consult for hospice and placement at discharge, care needs exceed ability to be taken care of at home -hold lomustine indefinitely -start decadron 4mg in AM for energy improvement, decreasing cerebral edema, discussed with son and patient (2) Acute dehydration: Plan: -secondary to poor PO intake Plan: -fluid resuscitation -speech therapy for dysphagia -PT/OT -maintenance fluids until discharge -replenish potassium (3) Recurrent brain tumor: Plan: -see above (4) Dysphagia: Plan: -2/2 to resections and glioblastoma Plan: -see above (5) Pressure ulcers of skin of multiple topographic sites: Plan: -2/2 bedbound and overall decline Plan: -wound care consult, appreciate recs (6) DM type 2 (diabetes mellitus, type 2): Plan: -hold lantus given change in condition -diabetes protocol (7) Palliative care by specialist: Plan: -see above, DNRDNI -will optimize this admission, discharge to facility with hospice services (8) Anxiety: Plan: -continue ativan tid prn -continue sertraline (9) CAP (community acquired pneumonia): Plan: -haziness in right lung -immunocompromised given chemotherapy, also noted aspiration Plan: -treat with ceftriaxone/doxy x7 days (10) UTI (urinary tract infection): Plan: -noted on urinalysis -immunocompromised Plan: -on abx as above Plan Feeding/fluids: minced/moist Analgesia: tylenol Sedation: ativan prn (home med) Thromboprophylaxis: SCD given platelets Head up position: na Ulcer prophylaxis: protonix Glycemic control: insulin protocol Spontaneous breathing trial: na Bowel care: miralax prn Indwelling catheter removal: na Deescalation of antibiotics: ceftriaxone/azithro I spent a total of 60 minutes in direct patient care, including [id number] time with the patient and/or family, reviewing medical records, ordering and reviewing diagnostic tests, and coordinating care with other healthcare providers. This time includes: history taking, physical examination, medical decision making, counseling, ECG interpretation, imaging interpretation, lab interpretation, orders, and education, excluding time spent in the performance of separately billed services. Admission and Anticipated Discharge Date Admission Date: May 06, 2024 Subjective Patient seen and examined at bedside. Patient doing billiard better today. Discussed case at length with primary contact son on the phone, explaining current plan of optimizing his medical condition here for discharge to a medical facility with hospice on board. Also gave him an update on medical condition. Son appreciative of the update. Review of Systems 2 Review of Systems: CONSTITUTIONAL: fatigue, weakness, improving EYES: Patient denies any visual symptoms. EARS, NOSE, AND THROAT: difficulty swallowing CARDIOVASCULAR: Patient denies chest pains, palpitations, orthopnea and paroxysmal nocturnal dyspnea. RESPIRATORY: No dyspnea on exertion, no wheezing or cough. GI: No nausea, vomiting, diarrhea, constipation, abdominal pain, hematochezia or melena. : No urinary hesitancy or dribbling. No nocturia or urinary frequency. No abnormal urethral discharge. MUSCULOSKELETAL: No myalgias or arthralgias. NEUROLOGIC: No chronic headaches, no seizures. Patient denies numbness, tingling or weakness. PSYCHIATRIC: Patient denies problems with mood disturbance. No problems with anxiety. ENDOCRINE: No excessive urination or excessive thirst. DERMATOLOGIC: pressure ulcers Physical Exam Physical Exam: Gen: A&O 3 NAD HEENT: NCAT, EOMI, not icteric. External ears normal. No rhinorrhea. wet mucous membranes. Noted chronic facial droop Neck: Supple, full range of motion, no observable masses, No meningeal sign. Lungs: rhonchi in RLL, RML CV: RRR, no edema. Abdomen: Soft, nondistended, No rebound tenderness. MSK: No joint swelling, no redness. Skin: No rashes, petechiae, lesions. Normal color per patient. Neuro: chronic left sided deficits noted Psych: Appropriate for situation. Results & Data Results & Data Vital Signs (Past 12 Hours) Vital Signs Temp Pulse Pulse Resp BP Pulse Ox O2 Del Method 05/07/24 11:52 Room Air 05/07/24 10:56 36.3 C L 72 16 145/86 H 94 Room Air 05/07/24 07:54 36.4 C 67 18 163/83 H 97 Room Air 05/07/24 06:00 169/93 H 05/07/24 05:43 69 05/07/24 03:55 36.6 C 74 16 168/70 H 95 Room Air Laboratory Results -personally reviewed, leukocytosis has resolved, noted dilutional decrease in all 3 cell lines (4) Dysphagia Dysphagia type: unspecified Qualified Code(s): R13.10 - Dysphagia, unspecified (6) DM type 2 (diabetes mellitus, type 2) Diabetes mellitus terminal worker insulin use: with mcc use Diabetes mellitus complication status: without complication Qualified Code(s): E11.9 - Type 2 diabetes mellitus without complications; Z79.4 - superintendent container terminal (current) use of insulin (9) CAP (community acquired pneumonia) Laterality: right Lung location: middle lobe of lung Qualified Code(s): J18.9 - Pneumonia, unspecified organism (10) UTI (urinary tract infection) Urinary tract infection type: acute cystitis Hematuria presence: with hematuria Qualified Code(s): N30.01 - Acute cystitis with hematuria
[2024-05-07] MEDS: GABAPENTIN 250 MG/5 ML 470 ML BTL PO SCH (14:26)
[2024-05-07] MEDS: POTASSIUM CHLORIDE CRTAB 20 MEQ TABCR PO STA (14:26)
[2024-05-07] MEDS: POTASSIUM CHLORIDE / WTR 10 MEQ/100 ML PLCT IV SCH (14:28)
[2024-05-07] MEDS: LIDOCAINE 5% 1 PATCH TD SCH (18:40)
[2024-05-07] MEDS: ACETAMINOPHEN SUSP 325 MG/10.15 ML UDC PO PRN (21:08)
[2024-05-07] MEDS: LEVETIRACETAM IV SCH (21:10)
[2024-05-08] MEDS: dexAMETHasone 4 MG TAB PO SCH (05:54)
[2024-05-08 07:39] LABS: Hematocrit (blood only) 34.4 % (42.0-52.0); Hemoglobin 11.6 g/dl (14.0-18.0); Mean Corpuscular Hemoglobin 30.9 pg (25.0-34.0); Mean Corpuscular Hgb Conc 33.7 g/dL (32.0-36.0); Mean Corpuscular Volume 91.5 fL (80.0-100.0); Mean Platelet Volume 10.1 fL (9.4-12.4); Platelet Count 89 K/uL (130-400); RDW Coefficient of Variation 13.1 % (11.5-14.5); RDW Standard Deviation 43.8 fL (36.4-46.3); Red Blood Count 3.76 M/uL (4.70-6.10); White Blood Count 5.74 K/ul (4.8-10.8)
[2024-05-08 07:53] LABS: Calcium 8.4 mg/dl (8.6-10.3); Creatinine Clr Calc Pharmacy 85.1 ml/min; Potassium 3.5 mmol/L (3.5-5.1)
[2024-05-08] MEDS ORDERED: LIDOCAINE 5% 1 PATCH TD SCH (09:00)
[2024-05-08] MEDS: MULTI VIT W/MINERALS LIQUID 15 ML UDC PO SCH (09:02)
[2024-05-08] MEDS: PANTOprazole 40 MG in SYRINGE DAILY IV SCH (09:04)
--- NOTE | 2024-05-08 11:15 | Hospitalist Progress Note ---
Date of Service May 08, 2024 Assessment & Plan (1) Glioblastoma: Plan: -patient is s/p resection plus adjunct radiation, then recurrent resection, now on lomustine for chemotherapy -see above, patient is showing signs of decline, with prognosis on scale of weeks to months -patient does not want aggressive therapies at this time, goal is to stay out of hospital and be comfortable when he leaves -would like optimized this admission Plan: -case management consult for hospice and placement at discharge, care needs exceed ability to be taken care of at home -hold lomustine indefinitely -continue decadron 4mg in AM for energy improvement, decreasing cerebral edema (2) Acute dehydration: Plan: -secondary to poor PO intake Plan: -fluid resuscitation -speech therapy for dysphagia -PT/OT -maintenance fluids until discharge (3) Recurrent brain tumor: Plan: -see above (4) Dysphagia: Plan: -2/2 to resections and glioblastoma Plan: -see above (5) Pressure ulcers of skin of multiple topographic sites: Plan: -2/2 bedbound and overall decline Plan: -wound care consult, appreciate recs (6) DM type 2 (diabetes mellitus, type 2): Plan: -hold lantus given change in condition -diabetes protocol (7) Palliative care by specialist: Plan: -see above, DNRDNI -will optimize this admission, discharge to facility with hospice services (8) Anxiety: Plan: -continue ativan tid prn -continue sertraline (9) CAP (community acquired pneumonia): Plan: -haziness in right lung -immunocompromised given chemotherapy, also noted aspiration Plan: -treat with ceftriaxone/doxy x7 days (10) UTI (urinary tract infection): Plan: -noted on urinalysis -immunocompromised Plan: -on abx as above Plan Feeding/fluids: minced/moist Analgesia: tylenol Sedation: ativan prn (home med) Thromboprophylaxis: SCD given platelets Head up position: na Ulcer prophylaxis: protonix Glycemic control: insulin protocol Spontaneous breathing trial: na Bowel care: miralax prn Indwelling catheter removal: na Deescalation of antibiotics: ceftriaxone/azithro I spent a total of 45 minutes in direct patient care, including [id number] time with the patient and/or family, reviewing medical records, ordering and reviewing diagnostic tests, and coordinating care with other healthcare providers. This time includes: history taking, physical examination, medical decision making, counseling, ECG interpretation, imaging interpretation, lab interpretation, orders, and education, excluding time spent in the performance of separately billed services. Admission and Anticipated Discharge Date Admission Date: May 06, 2024 Subjective Patient seen and examined at bedside. Patient feeling better today. DIscussed the current plan of discharge to a nursing facility with hospice services, he states that he does not want to return to the hospital and that this is a good plan. Discussed that we will discuss with his . Review of Systems Review of Systems: CONSTITUTIONAL: fatigue, weakness, improving EYES: Patient denies any visual symptoms. EARS, NOSE, AND THROAT: difficulty swallowing CARDIOVASCULAR: Patient denies chest pains, palpitations, orthopnea and paroxysmal nocturnal dyspnea. RESPIRATORY: No dyspnea on exertion, no wheezing or cough. GI: No nausea, vomiting, diarrhea, constipation, abdominal pain, hematochezia or melena. : No urinary hesitancy or dribbling. No nocturia or urinary frequency. No abnormal urethral discharge. MUSCULOSKELETAL: No myalgias or arthralgias. NEUROLOGIC: No chronic headaches, no seizures. Patient denies numbness, tingling or weakness. PSYCHIATRIC: Patient denies problems with mood disturbance. No problems with anxiety. ENDOCRINE: No excessive urination or excessive thirst. DERMATOLOGIC: pressure ulcers Physical Exam Physical Exam: Gen: A&O 3 NAD HEENT: NCAT, EOMI, not icteric. External ears normal. No rhinorrhea. wet mucous membranes. Noted chronic facial droop Neck: Supple, full range of motion, no observable masses, No meningeal sign. Lungs: rhonchi in RLL, RML CV: RRR, no edema. Abdomen: Soft, nondistended, No rebound tenderness. MSK: No joint swelling, no redness. Skin: No rashes, petechiae, lesions. Normal color per patient. Neuro: chronic left sided deficits noted Psych: Appropriate for situation. Results & Data Results & Data Vital Signs (Past 12 Hours) Vital Signs Temp Pulse Pulse Resp BP Pulse Ox O2 Del Method 05/08/24 08:01 36.9 C 73 16 131/79 93 Room Air 05/08/24 08:00 Room Air 05/08/24 07:25 76 05/08/24 05:33 76 05/08/24 02:56 36.3 C L 75 12 128/77 95 Room Air Laboratory Results -personally reviewed, Hgb/creatinine/platlets are all stable Medications Administered Acetaminophen (Acetaminophen Susp 325 Mg/10.15 Ml Udc) 650 mg PO Q4H PRN PRN Reason: Pain or Fever Stop: 06/06/24 10:28 Last Admin: 05/07/24 21:08 Dose: 650 mg Documented By: ALLISON Amlodipine Besylate (Amlodipine Besylate 5 Mg Tab) 5 mg PO QAM [facility] Stop: 06/06/24 08:59 Last Admin: 05/08/24 09:05 Dose: 5 mg Documented By: Admin: 05/07/24 09:36 Dose: 5 mg Documented By: DEMETRA Atorvastatin Calcium (Atorvastatin 40 Mg Tab) 80 mg PO DAILY [facility] Stop: 06/06/24 08:59 Last Admin: 05/08/24 09:04 Dose: 80 mg Documented By: Admin: 05/07/24 09:36 Dose: 80 mg Documented By: DEMETRA Carvedilol (Carvedilol 3.125 Mg Tab) 3.125 mg PO BID [place] Stop: 06/05/24 20:59 Last Admin: 05/08/24 09:05 Dose: 3.125 mg Documented By: Admin: 05/07/24 21:10 Dose: 3.125 mg Documented By: Admin: 05/07/24 09:36 Dose: 3.125 mg Documented By: Admin: 05/06/24 20:10 Dose: 3.125 mg Documented By: [facility] Dexamethasone (Dexamethasone 4 Mg Tab) 4 mg PO DAILYBB [place] Stop: 06/07/24 06:29 Last Admin: 05/08/24 05:54 Dose: 4 mg Documented By: ALLISON Finasteride (Finasteride 5 Mg Tab) 5 mg PO HS [place] Stop: 06/05/24 20:59 Last Admin: 05/06/24 20:10 Dose: 5 mg Documented By: [facility] Gabapentin (Gabapentin 300 Mg Cap) 300 mg PO TID [place] Stop: 06/05/24 20:59 Last Admin: 05/07/24 09:37 Dose: 300 mg Documented By: Admin: 05/06/24 20:10 Dose: 300 mg Documented By: [facility] Gabapentin (Gabapentin 250 Mg/5 Ml 470 Ml Btl) 300 mg PO TID [place] Stop: 06/06/24 13:59 Last Admin: 05/08/24 09:40 Dose: 300 mg Documented By: Admin: 05/07/24 21:10 Dose: 300 mg Documented By: Admin: 05/07/24 14:26 Dose: 300 mg Documented By: DEMETRA Piperacillin Sod/Tazobactam Sod (Zosyn) 4.5 gm in 100 mls @ 25 mls/hr IV Q8H ALLEY; Protocol Stop: 05/11/24 22:59 Last Infusion: 05/08/24 10:33 Dose: Infused Documented By: Admin: 05/08/24 06:30 Dose: 25 mls/hr Documented By: Infusion: 05/08/24 04:30 Dose: Infused Documented By: Admin: 05/08/24 00:49 Dose: 25 mls/hr Documented By: Infusion: 05/07/24 19:39 Dose: Infused Documented By: Admin: 05/07/24 15:23 Dose: 25 mls/hr Documented By: Infusion: 05/07/24 10:37 Dose: Infused Documented By: Admin: 05/07/24 06:25 Dose: 25 mls/hr Documented By: [facility] Infusion: 05/07/24 03:11 Dose: Infused Documented By: [facility] Admin: 05/06/24 23:11 Dose: 25 mls/hr Documented By: [facility] Pantoprazole Sodium (Protonix) 40 mg in 10 mls @ 5 mls/min IV DAILY [place] Stop: 06/07/24 08:59 Last Admin: 05/08/24 09:04 Dose: 5 mls/min Documented By: JERICHO Insulin Aspart (Insulin Aspart Per Unit Charge) 0 units SC ACHS [place] Stop: 06/05/24 20:59 Last Admin: 05/08/24 09:27 Dose: 2 units Documented By: JERICHO Co-signed By: BARRINGTON Admin: 05/07/24 21:10 Dose: 1 units Documented By: ALLISON Co-signed By: CELIA Admin: 05/07/24 17:49 Dose: 4 units Documented By: DEMETRA Co-signed By: DEVAN Admin: 05/07/24 12:44 Dose: 2 units Documented By: DEMETRA Co-signed By: RRPedrito Admin: 05/07/24 09:55 Dose: 4 units Documented By: DEMETRA Co-signed By: DEVAN Admin: 05/06/24 22:03 Dose: Not Given Documented By: [facility] Levetiracetam (Levetiracetam 250 Mg Tab) 750 mg PO BID [facility] Stop: 06/05/24 20:59 Last Admin: 05/07/24 09:36 Dose: 750 mg Documented By: Admin: 05/06/24 20:10 Dose: 750 mg Documented By: [facility] Levetiracetam (Levetiracetam 500 Mg/5 Ml Vial 750mg) 750 mg IV BID [facility] Stop: 06/06/24 20:59 Last Admin: 05/08/24 09:03 Dose: 750 mg Documented By: Admin: 05/07/24 21:10 Dose: 750 mg Documented By: ALLISON Lidocaine (Lidocaine 5% 1 Patch) 1 patch TD HS [facility] Stop: 06/06/24 18:14 Last Admin: 05/07/24 18:40 Dose: 1 patch Documented By: DEMETRA Miscellaneous (Remove Lidoderm Patch) 1 each N/A DAILY@2100 [facility] Stop: 06/06/24 20:59 Last Admin: 05/07/24 18:13 Dose: Not Given Documented By: DEMETRA Multivitamins (Multivitamin Tab) 1 tab PO [facility] Stop: 06/06/24 08:59 Last Admin: 05/07/24 09:36 Dose: 1 tab Documented By: DEMETRA Multivitamins/Minerals (Multi Vit W/Minerals Liquid 15 Ml Udc) [facility] Stop: 06/07/24 08:59 Last Admin: 05/08/24 09:02 Dose: 15 ml Documented By: JERICHO Ondansetron HCl (Ondansetron Inj 2 Mg/Ml 2 Ml Vial) 4 mg IV Q6H PRN PRN Reason: Nausea Stop: 06/05/24 19:09 Last Admin: 05/08/24 07:54 Dose: 4 mg Documented By: Admin: 05/07/24 09:55 Dose: 4 mg Documented By: DEMETRA Pantoprazole Sodium (Pantoprazole 40 Mg Tab) [facility] [place]: 06/06/24 08:59 Last Admin: 05/07/24 09:36 Dose: 40 mg Documented By: DEMETRA Sertraline HCl (Sertraline Hcl 100 Mg Tablet) 100 mg PO DAILY [facility] Stop: 06/06/24 08:59 Last Admin: 05/08/24 09:05 Dose: 100 mg Documented By: Admin: 05/07/24 09:36 Dose: 100 mg Documented By: DEMETRA Tamsulosin HCl (Tamsulosin Hcl 0.4 Mg Cap) 0.4 mg PO HS [facility] Stop: 06/05/24 20:59 Last Admin: 05/06/24 20:11 Dose: 0.4 mg Documented By: KIA (4) Dysphagia Dysphagia type: unspecified Qualified Code(s): R13.10 - Dysphagia, unspecified (6) DM type 2 (diabetes mellitus, type 2) 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
[2024-05-08] MEDS: D5W AND LACTATED RINGERS 1,000 ML IV SCH (14:41)
[2024-05-09 10:51] LABS: Hematocrit (blood only) 32.8 % (42.0-52.0); Hemoglobin 11.5 g/dl (14.0-18.0); Mean Corpuscular Hemoglobin 31.3 pg (25.0-34.0); Mean Corpuscular Hgb Conc 35.1 g/dL (32.0-36.0); Mean Corpuscular Volume 89.1 fL (80.0-100.0); Mean Platelet Volume 9.9 fL (9.4-12.4); Platelet Count 104 K/uL (130-400); RDW Coefficient of Variation 13.2 % (11.5-14.5); RDW Standard Deviation 43.2 fL (36.4-46.3); Red Blood Count 3.68 M/uL (4.70-6.10); White Blood Count 5.67 K/ul (4.8-10.8)
[2024-05-09 11:06] LABS: BUN Creatinine Ratio 14.5 (10-20); Calcium 8.6 mg/dl (8.6-10.3); Creatinine Clr Calc Pharmacy 101.9 ml/min; Potassium 3.6 mmol/L (3.5-5.1)
--- NOTE | 2024-05-09 16:00 | Hospitalist Progress Note ---
Date of Service May 09, 2024 Assessment & Plan (1) Glioblastoma: Plan Glioblastoma: Recurrent brain tumor: Dysphagia: -2/2 to resections and glioblastoma -patient is s/p resection plus adjunct radiation, then recurrent resection, now on lomustine for chemotherapy -see above, patient is showing signs of decline, with prognosis on scale of weeks to months -patient does not want aggressive therapies at this time, goal is to stay out of hospital and be comfortable when he leaves -would like optimized this admission as able Plan: -case management consult for hospice and placement at discharge, care needs exceed ability to be taken care of at home -hold lomustine indefinitely -continue decadron 4mg in AM for energy improvement, decreasing cerebral edema -will consult palliative given poor prognosis and difficult to navigate [facility] expectation with family members. Possible CAP: Haziness in the right lung in imaging. Continue with Zosyn 05/06. Possible UTI: Noted on urinalysis. Antibiotic as above. Acute dehydration: secondary to poor PO intake. s/p fluid resuscitation. It is going to worsening w/ progressive GBM dz. IVF if /w poor PO intake. Pressure ulcers of skin of multiple topographic sites: -2/2 bedbound and overall decline. wound care consult, appreciate recs Other chronic medical conditions: Continue with/resume home meds as and when able. T2DM: Continue with sliding scale insulin. Anxiety: Continue Ativan 3 times daily as needed and sertraline. Plan Feeding/fluids: minced/moist Analgesia: tylenol Sedation: ativan prn (home med) Thromboprophylaxis: SCD given platelets Head up position: na Ulcer prophylaxis: protonix Glycemic control: insulin protocol Spontaneous breathing trial: na Bowel care: miralax prn Indwelling catheter removal: na Deescalation of antibiotics: ceftriaxone/azithro Admission and Anticipated Discharge Date Admission Date: May 06, 2024 Subjective Patient seen and examined at bedside. Patient sleepy, denies pain. Per RN, pt has been drowsy during breakfast and pt was not able to eat. Woke up later in the day to eat some lunch per RN. Physical Exam Physical Exam: Gen: sleepy, denies pain. HEENT: NCAT, EOMI, not icteric. External ears normal. No rhinorrhea. wet mucous membranes. Noted chronic facial droop Neck: Supple, no observable masses Lungs: rhonchi in RLL, RML CV: RRR, no edema. Abdomen: Soft, nondistended, No rebound tenderness. MSK: No joint swelling, no redness. Skin: No rashes, petechiae, lesions. Normal color. Neuro: chronic left sided deficits noted Psych: Appropriate for situation. Results & Data Results & Data Vital Signs (Past 12 Hours) Vital Signs Temp Pulse Pulse Resp BP Pulse Ox O2 Del Method 05/09/24 15:54 36.6 C 65 18 131/56 L 94 Room Air 05/09/24 13:38 66 05/09/24 11:55 36.7 C 67 18 126/75 93 Room Air 05/09/24 07:52 Room Air 05/09/24 07:48 36.3 C L 64 18 154/89 H 98 Room Air 05/09/24 07:18 72
[2024-05-09] MEDS: SODIUM CHLORIDE 0.9% 1,000 ML IV SCH (16:13)
[2024-05-10 08:28] LABS: BUN Creatinine Ratio 14.1 (10-20); Calcium 8.8 mg/dl (8.6-10.3); Potassium 3.5 mmol/L (3.5-5.1)
--- NOTE | 2024-05-10 10:18 | Palliative Care Consultation ---
Date of Consultation May 10, 2024 Assessment & Plan (1) Palliative care by specialist: Met with pt at bedside, no family present. Introduced Palliative Medicine and explained our role in advanced care planning, symptom management and navigation through the progression of life limiting disease. Patient and/or family were receptive to palliative services for goals of care discussions. Reviewed we are different from hospice, a home health nurse visiting service. (2) Counseling regarding goals of care: Patient has exhibited current decisional capacity based on the ability to convey understanding of personal PMHx, current medical condition, treatment options nor the risks / benefits of those options, and lack of ability to make decisions based on such knowledge. Hospital does have written documentation of patient wishes concerning his chosen proxy for medical decisions. Per PA [id number], in absence of written documentation of patient wishes, pt's proxy for medical decisions would be his . Pt does not require a proxy for medical decisions Spoke with pt at bedside for 30 minutes. No visitors present. Pt immediately expressed that he does not want to be in hospital any longer. He shared that he has spoken with "the doctors" about hospice care and asked how soon he would be leaving. He shared that he does not want to spend any more of his time in the hospital. This is consistent with multiple lengthy family conversations held by Daniel Martinez MD beginning with H&P on 05/06/24. Per H&P discussion was held for more than an hour with patient his and his adult children, resulting in "patient is DNR/DNI, optimizing his condition during this hospitalization, with discharge to a facility with hospice services and focus on comfort." Discussed hospice benefit: an interdisciplinary program offered by nurses, nurses aides, social workers, chaplains and a medical geneticist for patients with a terminal condition and a life expectancy of less than 6 months. This is covered by Medicare at 100%/no out of pocket expense to patient and all meds/supplies needed by patient for the reason they are on hospice are paid for/covered by hospice. The goal is assure quality of life of the patient in their home setting (home, shelter, inpatient hospice setting) by providing symptoms management, psychosocial and spiritual support. However, they cannot offer 24 hours care and if the family is unable to provide that care, they will have to consider personal care with out of pocket cost vs. shelter placement. We discussed the goals of hospice as a patient service and the goals of care; we discussed EOL trajectories and transitions kaia the emotional impact of realizing mortality as a concrete reality from prior abstract considerations. Pt was reassured that no matter where they are along this trajectory, they are not alone - their medical team will remain by their side through their journey. Discussed the pros/cons of accepting help when especially weakened and distressed by pain-which would also help provide relief/decrease caregiver burden/strain. Assured that pt understands the difference between on going life prolonging therapies and transition to comfort directed care/hospice. Patient stated that he just wants to be allowed to live his life without any further hospitals or doctors. Attempted to call sons on pt's request, no answer, general VM left. Per previous notes GOC had been established for PT/OT to optimize strength and health during this admit with plan for SNF placement for hospice care on discharge. Plan see above, Palliative Care will continue to follow to clarify goals with family. History of Present Illness Reason for Consultation: goals of care Requesting Physician: Zenobia Spain MD Attending Physician: Zenobia Spain MD History of Present Illness 73 yo male with pmhx of glioblastoma s/p surgical resection in 2020, with recurrence glioblastoma and s/p surgery 01/31/24 at [facility], history seizure with first glioblastoma without any recurrent seizures, HTN, dyslipidemia, history DVT/PE, anticoagulated on Xarelto, DM II, pulmonary hypertension, PTSD, depression, GERD, BPH presented to ER with weakness. Per inpatient chart review history of [facility] hospitalization 03/02/2024-03/05/2024 for weakness, [facility] and recurrent [facility] hospitalization 04/11/24-04/17/24 for weakness, recent hospitalization for similar concerns on 04/27-05/03. Allergies Allergy/AdvReac Type Severity Reaction Status Date / Time erythromycin base AdvReac Unknown nausea/vomi Verified 12/11/21 09:20 ting Home Medications Medication Instructions Recorded Confirmed Type pantoprazole 40 mg tablet,delayed 40 mg PO QAM 06/18/18 05/06/24 History release multivitamin 1 tab PO DAILY 08/21/19 05/06/24 History carvedilol 3.125 mg tablet 3.125 mg PO BID 07/31/20 05/06/24 History diclofenac sodium 1 % topical gel 2 g topical QID PRN Pain 07/31/20 05/06/24 History polyethylene glycol 3350 17 17 g PO DAILY PRN constipation 07/31/20 05/06/24 History gram/dose oral powder (Miralax) ergocalciferol (vitamin D2) 10 mcg 10 mcg PO DAILY 07/10/21 05/06/24 History (400 unit) tablet sertraline 100 mg tablet (Zoloft) 100 mg PO DAILY 12/27/23 05/06/24 History gabapentin 300 mg capsule 300 mg PO TID 03/02/24 05/06/24 History levetiracetam 750 mg tablet 750 mg PO UD 03/02/24 05/06/24 History magnesium oxide 420 mg tablet 420 mg PO HS 03/02/24 05/06/24 History finasteride 5 mg tablet 5 mg PO HS #0 tabs 03/05/24 05/06/24 Rx tamsulosin 0.4 mg capsule 0.4 mg PO HS #0 caps 03/05/24 05/06/24 Rx atorvastatin 80 mg tablet 80 mg PO DAILY 04/10/24 05/06/24 History docusate sodium 100 mg tablet 100 mg PO BID PRN Constipation 04/10/24 05/06/24 History insulin glargine 100 unit/mL (3 12 unit subcut UD 04/10/24 05/06/24 History mL) subcutaneous pen lomustine 40 mg capsule 40 mg PO UD 04/10/24 05/06/24 History lorazepam 0.5 mg tablet 0.5 mg PO TID PRN Anxiety 04/10/24 05/06/24 History amlodipine 5 mg tablet (Norvasc) 5 mg PO QAM #30 tabs 04/17/24 05/06/24 Rx Patient History Medical History Diabetes Pulmonary hypertension Steroid-induced hyperglycemia Insomnia BPH (benign prostatic hyperplasia) Degenerative disc disease Severe protein-calorie malnutrition Fatigue Acute metabolic encephalopathy DVT prophylaxis Acute alteration in mental status History of pulmonary embolism Seizure History of agent [place] exposure Anxiety Acute deep vein thrombosis (DVT) of left lower extremity Elevated beta-hydroxybutyrate Elevated AST (SGOT) Hyperglycemia due to type 2 diabetes mellitus Acute pulmonary embolism BPH (benign prostatic hyperplasia) Barretts esophagus DM type 2 (diabetes mellitus, type 2) Surgical History H/O prostate biopsy S/P brain surgery History of cataract surgery LEFT History of anesthesia reaction REMOTE HX - WITH ONE SURGERY (PT UNSURE WHAT SURGERY) - SLEPT FOR 2 DAYS AFTER, NO -RE-OCCURENCE History of endoscopy History of colonoscopy History of foot surgery L History of tonsillectomy and adenoidectomy H/O shoulder surgery R X 2 - MOST RECENT: DEC 2018 Family History Father , 72yo Diabetes Hypertension Sister Cancer Brain tumor 42yo Mother , 80yo Myocardial infarction Son No problems noted. Son No problems noted. 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 HEENT: THONY, not icteric. External ears normal. No rhinorrhea.MMM. chronic facial droop Neck: Supple, no observable masses Lungs: rhonchi in RLL, RML CV: RRR, no edema. Abdomen: Soft, nondistended, No rebound tenderness. MSK: No joint swelling, no redness. Skin: No rashes, petechiae, lesions. Normal color. Neuro: chronic left sided deficits noted Results & Data Vital Signs (Past 12 Hours) Vital Signs Temp Pulse Pulse Resp BP Pulse Ox O2 Del Method 05/10/24 07:40 36.4 C L 69 18 182/87 H 97 Room Air 05/10/24 07:21 Room Air 05/10/24 07:06 58 L 05/10/24 03:33 36.8 C 68 18 158/86 H 94 Room Air 05/10/24 00:23 36.8 C 66 18 169/82 H 96 Room Air Laboratory Results Abnormal lab results 05/10/24 05/10/24 05/10/24 Range/Units 07:26 08:13 11:51 Glucose 170 H (70-99(Fasting)) mg/dl POC Glucose 176 H 234 H (70-99) mg/dl 05/10/24 05/10/24 Range/Units 16:44 19:59 Glucose (70-99(Fasting)) mg/dl POC Glucose 219 H 217 H (70-99) mg/dl Diagnostic Findings Chest X-Ray 05/06/24 12:44 XR chest 1V portable CLINICAL HISTORY: weakness COMPARISON STUDY: Chest CT June 09, 2020. Chest radiograph 04/27/2024. FINDINGS: Lung volumes are normal. Hazy right midlung opacity is present. The left lung is clear. There is no pneumothorax or pleural effusion. Cardiac size is normal. Mediastinal contours are normal. There is no evidence for pulmonary edema. IMPRESSION: Hazy right midlung opacity. This favors a small focus of pneumonia. Radiographic follow-up to ensure resolution is recommended. ACT 112: Negative or not required by law. Electronically signed by: Edmundo Lara M.D. 05/06/2024 1:20 PM Medications Administered Current Inpatient Medications Acetaminophen (Acetaminophen 325 Mg Tab) 650 mg PO Q4H PRN PRN Reason: pain/fever Stop: 06/05/24 19:09 Acetaminophen (Acetaminophen Susp 325 Mg/10.15 Ml Udc) 650 mg PO Q4H PRN PRN Reason: Pain or Fever Stop: 06/06/24 10:28 Last Admin: 05/07/24 21:08 Dose: 650 mg Amlodipine Besylate (Amlodipine Besylate 5 Mg Tab) 5 mg PO QAM [facility] Stop: 06/06/24 08:59 Last Admin: 05/10/24 08:11 Dose: 5 mg Atorvastatin Calcium (Atorvastatin 40 Mg Tab) 80 mg PO DAILY [facility] Stop: 06/06/24 08:59 Last Admin: 05/10/24 08:11 Dose: 80 mg Carvedilol (Carvedilol 3.125 Mg Tab) 3.125 mg PO BID [facility] Stop: 06/05/24 20:59 Last Admin: 05/10/24 21:03 Dose: 3.125 mg Dexamethasone (Dexamethasone 4 Mg Tab) 4 mg PO DAILYBB [facility] Stop: 06/07/24 06:29 Last Admin: 05/10/24 06:34 Dose: 4 mg Dextrose (Dextrose 50% 50 Ml Syringe) 25 - 50 ml IV UD PRN; Protocol PRN Reason: Hypoglycemia Protocol Stop: 06/05/24 20:21 Finasteride (Finasteride 5 Mg Tab) 5 mg PO HS [facility] Stop: 06/05/24 20:59 Last Admin: 05/06/24 20:10 Dose: 5 mg Gabapentin (Gabapentin 300 Mg Cap) 300 mg PO TID [facility] Stop: 06/05/24 20:59 Last Admin: 05/07/24 09:37 Dose: 300 mg Gabapentin (Gabapentin 250 Mg/5 Ml 470 Ml Btl) 300 mg PO TID [facility] Stop: 06/06/24 13:59 Last Admin: 05/10/24 21:03 Dose: 300 mg Glucagon (Glucagon For Inj 1 Mg Vial) 1 mg SQ UD PRN; Protocol PRN Reason: Hypoglycemia Protocol Stop: 06/05/24 20:21 Glucose (Glucose 40% Gel 15 Gm Tube) 15 - 30 gm PO UD PRN; Protocol PRN Reason: Hypoglycemia Protocol Stop: 06/05/24 20:21 Glucose (Glucose 10 Tab/Tube) 4 - 8 tab PO UD PRN; Protocol PRN Reason: Hypoglycemia Protocol Stop: 06/05/24 20:21 Piperacillin Sod/Tazobactam Sod (Zosyn) 4.5 gm in 100 mls @ 25 mls/hr IV Q8H [facility]; Protocol Stop: 05/11/24 22:59 Last Infusion: 05/10/24 19:33 Dose: Infused Pantoprazole Sodium (Protonix) 40 mg in 10 mls @ 5 mls/min IV DAILY [facility] Stop: 06/07/24 08:59 Last Admin: 05/10/24 08:10 Dose: 5 mls/min Insulin Aspart (Insulin Aspart Per Unit Charge) 0 units SC ACHS [facility] Stop: 06/05/24 20:59 Last Admin: 05/10/24 21:03 Dose: 2 units Levetiracetam (Levetiracetam 250 Mg Tab) 750 mg PO BID [facility] Stop: 06/05/24 20:59 Last Admin: 05/07/24 09:36 Dose: 750 mg Levetiracetam (Levetiracetam 500 Mg/5 Ml Vial 750mg) 750 mg IV BID [facility] Stop: 06/06/24 20:59 Last Admin: 05/10/24 21:03 Dose: 750 mg Lidocaine (Lidocaine 5% 1 Patch) 1 patch TD HS [facility] Stop: 06/06/24 18:14 Last Admin: 05/10/24 21:03 Dose: 1 patch Lorazepam (Lorazepam 0.5 Mg Tab) 0.5 mg PO TID PRN PRN Reason: Anxiety Stop: 06/05/24 19:09 Lorazepam (Lorazepam 2 Mg/1 Ml Vial) 0.5 mg IV TID PRN PRN Reason: Anxiety Stop: 06/06/24 10:32 Melatonin (Melatonin 3 Mg Tab) 3 mg PO HS PRN PRN Reason: Insomnia Stop: 06/05/24 19:09 Miscellaneous (Carbohydrates For Hypoglycemia ) 15 - 30 gm PO UD PRN PRN Reason: Hypoglycemia Protocol Stop: 06/05/24 20:21 Miscellaneous (Remove Lidoderm Patch) 1 each N/A DAILY@2100 [facility] Stop: 06/06/24 20:59 Last Admin: 05/10/24 21:03 Dose: 1 each Multivitamins (Multivitamin Tab) 1 tab PO QAM [facility] Stop: 06/06/24 08:59 Last Admin: 05/07/24 09:36 Dose: 1 tab Multivitamins/Minerals (Multi Vit W/Minerals Liquid 15 Ml Udc) 15 ml PO QAM [facility] Stop: 06/07/24 08:59 Last Admin: 05/10/24 08:12 Dose: 15 ml Nystatin (Nystatin Powder 15gm Btl) 1 appln EXT BID PRN PRN Reason: skin fungal infection Stop: 06/09/24 11:03 Last Admin: 05/10/24 11:38 Dose: 1 appln Ondansetron HCl (Ondansetron Inj 2 Mg/Ml 2 Ml Vial) 4 mg IV Q6H PRN PRN Reason: Nausea Stop: 06/05/24 19:09 Last Admin: 05/08/24 07:54 Dose: 4 mg Pantoprazole Sodium (Pantoprazole 40 Mg Tab) 40 mg PO QAM [facility] Stop: 06/06/24 08:59 Last Admin: 05/07/24 09:36 Dose: 40 mg Polyethylene Glycol (Polyethylene (Miralax) 17 Gm Pack) 17 gm PO DAILY PRN PRN Reason: constipation Stop: 06/05/24 19:09 Sertraline HCl (Sertraline Hcl 100 Mg Tablet) 100 mg PO DAILY [facility] Stop: 06/06/24 08:59 Last Admin: 05/10/24 08:11 Dose: 100 mg Tamsulosin HCl (Tamsulosin Hcl 0.4 Mg Cap) 0.4 mg PO HS [facility] Stop: 06/05/24 20:59 Last Admin: 05/06/24 20:11 Dose: 0.4 mg PG Care Time/CCT Total # of Minutes Spent Total Time Spent with Patient: Total time spent is greater than 50% in coordination of care (as documented) at patient's floor/unit and/or counseling patient: Advanced Care Planning 80767 Advanced Care Planning 30 [place] [address] IN/OBS CONSULT LVL 2,35M Patient Type New History Problem Focused Exam Problem Focused Medical Decision Making Low Complexity Diagnoses Palliative care by specialist Z51.5 Counseling regarding goals of care Z71.89 Additional Codes Advanced Care Planning - 01814 Advanced Care Planning 30 Min: [id number] Advanced Care Planning 30 Min ([id number])
[2024-05-10] MEDS: NYSTATIN POWDER 15GM BTL EXT PRN (11:38)
--- NOTE | 2024-05-10 15:11 | Hospitalist Progress Note ---
Date of Service May 10, 2024 Assessment & Plan (1) Glioblastoma: Plan Glioblastoma: Recurrent brain tumor: Dysphagia: -2/2 to resections and glioblastoma -patient is s/p resection plus adjunct radiation, then recurrent resection, now on lomustine for chemotherapy -see above, patient is showing signs of decline, with prognosis on scale of weeks to months -patient does not want aggressive therapies at this time, goal is to stay out of hospital and be comfortable when he leaves -would like optimized this admission as able Plan: -case management consult for hospice and placement at discharge, care needs exceed ability to be taken care of at home -hold lomustine indefinitely -continue decadron 4mg in AM for energy improvement, decreasing cerebral edema -Palliative consulted given poor prognosis and difficult to navigate [facility] expectation with family members. Possible CAP: Haziness in the right lung in imaging. Continue with Zosyn 05/06. Possible UTI: Noted on urinalysis. Antibiotic as above. Acute dehydration: secondary to poor PO intake. s/p fluid resuscitation. It is going to worsening w/ progressive GBM dz. IVF if /w poor PO intake. Pressure ulcers of skin of multiple topographic sites/Pressure ulcer of right buttock, stage 3, POA: -2/2 bedbound and overall decline. wound care consult, appreciate recs Other chronic medical conditions: Continue with/resume home meds as and when able. T2DM: Continue with sliding scale insulin. Anxiety: Continue Ativan 3 times daily as needed and sertraline. Plan Feeding/fluids: minced/moist Analgesia: tylenol Sedation: ativan prn (home med) Thromboprophylaxis: SCD given platelets Head up position: na Ulcer prophylaxis: protonix Glycemic control: insulin protocol Spontaneous breathing trial: na Bowel care: miralax prn Indwelling catheter removal: na Deescalation of antibiotics: ceftriaxone/azithro Dispo: pt has poor prognosis. Family navigating hospice home, would like to speak w/ palliative and decide. Admission and Anticipated Discharge Date Admission Date: May 06, 2024 Subjective Patient seen and examined at bedside. Patient awake, denies pain. Per RN, pt had a good BM today. Pt denies complaints. Physical Exam Physical Exam: Gen: awake and alert, denies pain. HEENT: NCAT, EOMI, not icteric. External ears normal. No rhinorrhea. wet mucous membranes. Noted chronic facial droop Neck: Supple, no observable masses Lungs: rhonchi in RLL, RML CV: RRR, no edema. Abdomen: Soft, nondistended, No rebound tenderness. MSK: No joint swelling, no redness. Skin: No rashes, petechiae, lesions. Normal color. Neuro: chronic left sided deficits noted Psych: Appropriate for situation. Results & Data Results & Data Vital Signs (Past 12 Hours) Vital Signs Temp Pulse Pulse Resp BP Pulse Ox O2 Del Method 05/10/24 14:56 36.5 C 64 18 152/88 H 96 Room Air 05/10/24 14:19 66 05/10/24 11:44 36.7 C 62 18 126/77 94 Room Air 05/10/24 07:40 36.4 C L 69 18 182/87 H 97 Room Air 05/10/24 07:21 Room Air 05/10/24 07:06 58 L 05/10/24 03:33 36.8 C 68 18 158/86 H 94 Room Air
[2024-05-11 08:43] LABS: Calcium 8.5 mg/dl (8.6-10.3); Magnesium 1.8 mg/dl (1.7-2.4); Potassium 3.8 mmol/L (3.5-5.1)
[2024-05-11 08:49] LABS: BUN Creatinine Ratio 19.7 (10-20); Creatinine Clr Calc Pharmacy 91.8 ml/min
--- NOTE | 2024-05-11 14:43 | Communication Note ---
Date of Service: May 11, 2024 Evaluated today at bedside with no family present at time of discussion. Pt states he is feeling okay today. He was sitting up in bed watching a court TV show upon entry into the room. Discussed with pt that plan is to discharge him to SNF with hospice and that is still in the process of being done. Pt notes he is aware and agrees with this plan as he notes agreement with optimizing quality of remaining time over quantity and states that he is aware his medical health is declining and incurable. Pt requested we call his Aimee as he is suppose to be getting a stove delivered today and wanted to check in with her. Aimee called in the room with pt present and with speakerphone on for pt to participate if desired. was very pleasant and noted that the stove was about to be delivered and she would have to leave shortly as her dog is barking at the delivery truck. Did let pt know that agreed upon plan for SNF placement with hospice was still in the works. Aimee said "we don't want hospice" and then had a hard time furthering conversation due to dog barking. Advised her we would call back another time. After phone call with Aimee, asked pt again about the plan. Pt agrees that his and sons may not be on the same page about his illness and the plan for him. When asked again if pt would want quality of life over quantity, pt agrees that ultimately he would want quality of life and to not keep returning to the hospital, but when asked if he would want quality of life or to better align with his family's wishes for quantity of life, pt stated that is a hard choice for him. When asked if he had any events he feels he would like to get to before the end of his life he states that he wants to see his sons succeed in business (they work construction businesses and have contracts for projects currently) and also that he would like to see his 18 yo grandson play college football in the fall (currently between [employer] and [employer] for college, has not chosen yet). Did let pt know that his prognosis is poor and that even with optimizing his medical conditions, if he lives to the fall time he may not be well enough to go to a football game at that time. Pt states he would like some more time to think about things and particular the choice between optimizing conditions to prolong life as much as possible even if quality continues to decline versus focusing on quality of life and comfort, and that if another meeting were to happen regarding his GOC he would like his and sons to be present for the conversation.
--- NOTE | 2024-05-11 16:22 | Hospitalist Progress Note ---
Date of Service May 11, 2024 Assessment & Plan (1) Glioblastoma: Plan Glioblastoma: Recurrent brain tumor: Dysphagia: -2/2 to resections and glioblastoma -patient is s/p resection plus adjunct radiation, then recurrent resection, now on lomustine for chemotherapy -see above, patient is showing signs of decline, with prognosis on scale of weeks to months -patient does not want aggressive therapies at this time, goal is to stay out of hospital and be comfortable when he leaves -would like optimized this admission as able Plan: -case management and palliative consult for hospice and placement at discharge --- appears family is now inclined towards snf/rehab. -Pt and family aware of and acceptable of the poor prognosis. -hold lomustine indefinitely -continue decadron 4mg in AM for energy improvement, decreasing cerebral edema -Palliative consulted, appreciate recs. Possible CAP: Haziness in the right lung in imaging. Continue with Zosyn /. plan for 7 days. Possible UTI: Noted on urinalysis. Antibiotic as above. Acute dehydration: secondary to poor PO intake. s/p fluid resuscitation. It is going to worsening w/ progressive GBM dz. IVF if /w poor PO intake. Pressure ulcers of skin of multiple topographic sites/Pressure ulcer of right buttock, stage 3, POA: -2/2 bedbound and overall decline. wound care consult, appreciate recs Other chronic medical conditions: Continue with/resume home meds as and when able. T2DM: Continue with sliding scale insulin. Anxiety: Continue Ativan 3 times daily as needed and sertraline. Plan Feeding/fluids: minced/moist Analgesia: tylenol Sedation: ativan prn (home med) Thromboprophylaxis: SCD given platelets Head up position: na Ulcer prophylaxis: protonix Glycemic control: insulin protocol Spontaneous breathing trial: na Bowel care: miralax prn Indwelling catheter removal: na Deescalation of antibiotics: ceftriaxone/azithro Dispo: pt has poor prognosis. Family navigating hospice home vs rehab/snf. Admission and Anticipated Discharge Date Admission Date: May 06, 2024 Subjective Patient seen and examined at bedside. Patient awake, denies pain. Pt naseous today, utilize prn zofran communicated to rn. Physical Exam Physical Exam: Gen: awake and alert, denies pain. HEENT: NCAT, EOMI, not icteric. External ears normal. No rhinorrhea. wet mucous membranes. Noted chronic facial droop Neck: Supple, no observable masses Lungs: rhonchi in RLL, RML CV: RRR, no edema. Abdomen: Soft, nondistended, No rebound tenderness. MSK: No joint swelling, no redness. Skin: No rashes, petechiae, lesions. Normal color. Neuro: chronic left sided deficits noted Psych: Appropriate for situation. Results & Data Results & Data Vital Signs (Past 12 Hours) Vital Signs Temp Pulse Pulse Resp BP Pulse Ox O2 Del Method 05/11/24 14:58 36.4 C L 65 16 171/94 H 96 Room Air 05/11/24 14:30 65 05/11/24 10:50 36.5 C 66 16 146/79 H 95 Room Air 05/11/24 09:00 Room Air 05/11/24 07:27 36.5 C 68 20 149/80 H 95 Room Air 05/11/24 07:00 67
--- NOTE | 2024-05-11 18:24 | Palliative Care Progress Note ---
Date of Service May 11, 2024 Assessment & Plan (1) Palliative care by specialist: (2) Quality of life palliative care encounter: Plan: Discussed Goals and quality of life with pt for 30min at bedside, no visitors present.. Discussed with pt possible discharge to SNF with hospice. Pt notes he would like to optimizing quality his time over quantity He shared fear that his health is declining and he does not want further treatments for his Glio. Pt shared that his life has been spent as much in hospital as home over the last year. Pt requested we call his Aimee. Aimee joined discussion via speakerphone. Discussed prior GOC discussions and plan for SNF placement with hospice. Aimee said "we don't want hospice" and then had a hard time furthering conversation due to dog barking. Advised her we would call back another time. After phone call with Aimee, asked pt again about the plan. Pt agrees that his and sons are not be on the same page about his illness and the plan for him. When asked again if pt would want to focus on quality of life over quantity, pt agrees that ultimately he would want quality of life and to not keep returning to the hospital, but when asked if he would want quality of life or to better align with his family's wishes for quantity of life, pt stated that is a hard choice for him. When asked if he had any major events or goals he feels he would like to get to before the end of his life he states that he wants to see his sons succeed in their construction business and to see his 18 yo grandson play college football in the fall. Did let pt know that his prognosis is poor and that even with optimizing his medical conditions, if he lives to the fall time he may not be well enough to go to a football game at that time. Pt states he would like some more time to think about his options of continuing current course of optimizing health to prolong life possible even if quality continues to decline versus focusing on quality of life and comfort. He requests that his be called to schedule a time when his and sons could be present for a GOC discussion. (3) Counseling regarding goals of care: Plan: Incoming call rec"d from pt's Aimee later in day. Spoke with her concerning pt's expressed wishes and goals of care. She shared that she and her sons are aware that the pt is suffering and getting sicker. she is also aware of pt's wishes for comfort directed care. I shared with her the details of above discussions and pt's desire to have family meeting to discuss plan for hospice with her and their sons. Aimee agreed to schedule a time early next week for GOC discussion with pt. (4) Encounter for hospice care discussion: Plan: Reinforced prior teaching about hospice. Discussed hospice benefit: an interdisciplinary program offered by nurses, nurses aides, social workers, chaplains and a medical research scientist for patients with a terminal condition and a life expectancy of less than 6 months. This is covered by Medicare at 100%/no out of pocket expense to patient and all meds/supplies needed by patient for the reason they are on hospice are paid for/covered by hospice. The goal is assure quality of life of the patient in their home setting (home, usp, inpatient hospice setting) by providing symptoms management, psychosocial and spiritual support. However, they cannot offer 24 hours care and if the family is unable to provide that care, they will have to consider personal care with out of pocket cost vs. usp placement. We discussed the goals of hospice as a patient service and the goals of care; we discussed EOL trajectories and transitions kaia the emotional impact of realizing mortality as a concrete reality from prior abstract considerations. Pt was reassured that no matter where they are along this trajectory, they are not alone - their medical team will remain by their side through their journey. Discussed the pros/cons of accepting help when especially weakened and distressed by pain-which would also help provide relief/decrease caregiver burden/strain. Pt shared that he would like to be at home, but he does not want to be a burden on his family. He shared that he is "ok with usp and staying comfortable" and stressed his desire to not return to the hospital after discharge. Plan Pt requesting transition to comfort directed care at [place] and requests SNF with hospicefor family meeting to help them understand his wishes.. Plan for GOC meeting with family and patient early next week, timing TBD by . Admission and Anticipated Discharge Date Admission Date: May 06, 2024 Subjective Assessed pt at bedside, he was sitting up in bed watching a court TV show. He denies pain and is in NAD on NC. No visitors present. Review of Systems Review of Systems: All systems reviewed & are unremarkable except as noted in Subjective Physical Exam Physical Exam: Gen: awake and alert, denies pain. HEENT: THONY, not icteric. External ears normal. No rhinorrhea.MMM. chronic facial droop Neck: Supple, no observable masses Lungs: rhonchi in RLL, RML CV: RRR, no edema. Abdomen: Soft, nondistended, No rebound tenderness. MSK: No joint swelling, no redness. Skin: No rashes, petechiae, lesions. Normal color. Neuro: chronic left sided deficits noted Results & Data Vital Signs (Past 12 Hours) Vital Signs Temp Pulse Pulse Resp BP Pulse Ox O2 Del Method 05/11/24 14:58 36.4 C L 65 16 171/94 H 96 Room Air 05/11/24 14:30 65 05/11/24 10:50 36.5 C 66 16 146/79 H 95 Room Air 05/11/24 09:00 Room Air 05/11/24 07:27 36.5 C 68 20 149/80 H 95 Room Air 05/11/24 07:00 67 Laboratory Results Abnormal lab results 05/11/24 05/11/24 05/11/24 Range/Units 07:11 07:41 11:34 Glucose 192 H (70-99(Fasting)) mg/dl POC Glucose 195 H 234 H (70-99) mg/dl Calcium 8.5 L (8.6-10.3) mg/dl 05/11/24 Range/Units 16:55 Glucose (70-99(Fasting)) mg/dl POC Glucose 215 H (70-99) mg/dl Calcium (8.6-10.3) mg/dl Diagnostic Findings Chest X-Ray 05/06/24 12:44 XR chest 1V portable CLINICAL HISTORY: weakness COMPARISON STUDY: Chest CT June 09, 2020. Chest radiograph 04/27/2024. FINDINGS: Lung volumes are normal. Hazy right midlung opacity is present. The left lung is clear. There is no pneumothorax or pleural effusion. Cardiac size is normal. Mediastinal contours are normal. There is no evidence for pulmonary edema. IMPRESSION: Hazy right midlung opacity. This favors a small focus of pneumonia. Radiographic follow-up to ensure resolution is recommended. ACT 112: Negative or not required by law. Electronically signed by: Edmundo Lara M.D. 05/06/2024 1:20 PM Medications Administered Current Inpatient Medications Acetaminophen (Acetaminophen 325 Mg Tab) 650 mg PO Q4H PRN PRN Reason: pain/fever Stop: 06/05/24 19:09 Acetaminophen (Acetaminophen Susp 325 Mg/10.15 Ml Udc) 650 mg PO Q4H PRN PRN Reason: Pain or Fever Stop: 06/06/24 10:28 Last Admin: 05/07/24 21:08 Dose: 650 mg Amlodipine Besylate (Amlodipine Besylate 5 Mg Tab) 5 mg PO QAM [facility] Stop: 06/06/24 08:59 Last Admin: 05/11/24 08:59 Dose: 5 mg Atorvastatin Calcium (Atorvastatin 40 Mg Tab) 80 mg PO DAILY [facility] Stop: 06/06/24 08:59 Last Admin: 05/11/24 08:59 Dose: 80 mg Carvedilol (Carvedilol 3.125 Mg Tab) 3.125 mg PO BID [facility] Stop: 06/05/24 20:59 Last Admin: 05/11/24 08:59 Dose: 3.125 mg Dexamethasone (Dexamethasone 4 Mg Tab) 4 mg PO DAILYBB [place] Stop: 06/07/24 06:29 Last Admin: 05/11/24 06:09 Dose: 4 mg Dextrose (Dextrose 50% 50 Ml Syringe) 25 - 50 ml IV UD PRN; Protocol PRN Reason: Hypoglycemia Protocol Stop: 06/05/24 20:21 Finasteride (Finasteride 5 Mg Tab) 5 mg PO HS [facility] Stop: 06/05/24 20:59 Last Admin: 05/06/24 20:10 Dose: 5 mg Gabapentin (Gabapentin 300 Mg Cap) 300 mg PO TID [place] Stop: 06/05/24 20:59 Last Admin: 05/07/24 09:37 Dose: 300 mg Glucagon (Glucagon For Inj 1 Mg Vial) 1 mg SQ UD PRN; Protocol PRN Reason: Hypoglycemia Protocol Stop: 06/05/24 20:21 Glucose (Glucose 40% Gel 15 Gm Tube) 15 - 30 gm PO UD PRN; Protocol PRN Reason: Hypoglycemia Protocol Stop: 06/05/24 20:21 Glucose (Glucose 10 Tab/Tube) 4 - 8 tab PO UD PRN; Protocol PRN Reason: Hypoglycemia Protocol Stop: 06/05/24 20:21 Piperacillin Sod/Tazobactam Sod (Zosyn) 4.5 gm in 100 mls @ 25 mls/hr IV Q8H [facility]; Protocol Stop: 05/14/24 22:59 Last Infusion: 05/11/24 19:31 Dose: Infused Pantoprazole Sodium (Protonix) 40 mg in 10 mls @ 5 mls/min IV DAILY [facility] Stop: 06/07/24 08:59 Last Admin: 05/11/24 08:57 Dose: 5 mls/min Insulin Aspart (Insulin Aspart Per Unit Charge) 0 units SC ACHS [facility] Stop: 06/05/24 20:59 Last Admin: 05/11/24 17:47 Dose: 6 units Levetiracetam (Levetiracetam 250 Mg Tab) 750 mg PO BID [facility] Stop: 06/05/24 20:59 Last Admin: 05/07/24 09:36 Dose: 750 mg Levetiracetam (Levetiracetam 500 Mg/5 Ml Vial 750mg) 750 mg IV BID [facility] Stop: 06/06/24 20:59 Last Admin: 05/11/24 08:58 Dose: 750 mg Lidocaine (Lidocaine 5% 1 Patch) 1 patch TD HS [facility] Stop: 06/06/24 18:14 Last Admin: 05/10/24 21:03 Dose: 1 patch Lorazepam (Lorazepam 0.5 Mg Tab) 0.5 mg PO TID PRN PRN Reason: Anxiety Stop: 06/05/24 19:09 Lorazepam (Lorazepam 2 Mg/1 Ml Vial) 0.5 mg IV TID PRN PRN Reason: Anxiety Stop: 06/06/24 10:32 Melatonin (Melatonin 3 Mg Tab) 3 mg PO HS PRN PRN Reason: Insomnia Stop: 06/05/24 19:09 Miscellaneous (Carbohydrates For Hypoglycemia ) 15 - 30 gm PO UD PRN PRN Reason: Hypoglycemia Protocol Stop: 06/05/24 20:21 Miscellaneous (Remove Lidoderm Patch) 1 each N/A DAILY@2100 [facility] Stop: 06/06/24 20:59 Last Admin: 05/10/24 21:03 Dose: 1 each Multivitamins (Multivitamin Tab) 1 tab PO QAM [facility] Stop: 06/06/24 08:59 Last Admin: 05/07/24 09:36 Dose: 1 tab Multivitamins/Minerals (Multi Vit W/Minerals Liquid 15 Ml Udc) 15 ml PO QAM [facility] Stop: 06/07/24 08:59 Last Admin: 05/11/24 08:57 Dose: 15 ml Nystatin (Nystatin Powder 15gm Btl) 1 appln EXT BID PRN PRN Reason: skin fungal infection Stop: 06/09/24 11:03 Last Admin: 05/11/24 09:01 Dose: 1 appln Ondansetron HCl (Ondansetron Inj 2 Mg/Ml 2 Ml Vial) 4 mg IV Q6H PRN PRN Reason: Nausea Stop: 06/05/24 19:09 Last Admin: 05/11/24 09:39 Dose: 4 mg Pantoprazole Sodium (Pantoprazole 40 Mg Tab) 40 mg PO QAM [facility] Stop: 06/06/24 08:59 Last Admin: 05/07/24 09:36 Dose: 40 mg Polyethylene Glycol (Polyethylene (Miralax) 17 Gm Pack) 17 gm PO DAILY PRN PRN Reason: constipation Stop: 06/05/24 19:09 Sertraline HCl (Sertraline Hcl 100 Mg Tablet) 100 mg PO DAILY [place] Stop: 06/06/24 08:59 Last Admin: 05/11/24 08:59 Dose: 100 mg Tamsulosin HCl (Tamsulosin Hcl 0.4 Mg Cap) 0.4 mg PO HS [place] Stop: 06/05/24 20:59 Last Admin: 05/06/24 20:11 Dose: 0.4 mg PG Care Time/CCT Total # of Minutes Spent Total Time Spent with Patient: Total time spent is greater than 50% in coordination of care (as documented) at patient's floor/unit and/or counseling patient: Advanced Care Planning 46706 Advanced Care Planning 30 Min C[place] [id number] SUB INP/OBS CARE 04/14MIN Patient Type Established History Problem Focused Exam Problem Focused Medical Decision Making Low Complexity Diagnoses Palliative care by specialist Z51.5 Quality of life palliative care encounter Z51.5 Counseling regarding goals of care Z71.89 Encounter for hospice care discussion Z71.89 Additional Codes Advanced Care Planning - 10362 Advanced Care Planning 30 Min: 57965 Advanced Care Planning 30 Min ([id number])
[2024-05-12 07:39] LABS: BUN Creatinine Ratio 27.7 (10-20); Calcium 8.6 mg/dl (8.6-10.3); Creatinine Clr Calc Pharmacy 84.1 ml/min; Magnesium 1.8 mg/dl (1.7-2.4); Potassium 3.2 mmol/L (3.5-5.1)
[2024-05-12] MEDS: POTASSIUM CHLORIDE CRTAB 20 MEQ TABCR PO STA (10:46)
[2024-05-12] MEDS: POTASSIUM CHLORIDE 20 MEQ/15 ML UDC PO STA (11:43)
--- NOTE | 2024-05-12 14:48 | Hospitalist Progress Note ---
Date of Service May 12, 2024 Assessment & Plan (1) Glioblastoma: Plan Glioblastoma: Recurrent brain tumor: Dysphagia: -2/2 to resections and glioblastoma -patient is s/p resection plus adjunct radiation, then recurrent resection, now on lomustine for chemotherapy -see above, patient is showing signs of decline, with prognosis on scale of weeks to months -patient does not want aggressive therapies at this time, goal is to stay out of hospital and be comfortable when he leaves -would like optimized this admission as able Plan: -case management and palliative consult for hospice and placement at discharge --- appears family is now inclined towards snf/rehab. -Pt and family aware of and acceptable of the poor prognosis. -hold lomustine indefinitely -continue decadron 4mg in AM for energy improvement, decreasing cerebral edema -Palliative consulted, appreciate recs. Possible CAP: Haziness in the right lung in imaging. Continue with Zosyn /. plan for 7 days. Possible UTI: Noted on urinalysis. Antibiotic as above. Acute dehydration: secondary to poor PO intake. s/p fluid resuscitation. It is going to worsening w/ progressive GBM dz. IVF if /w poor PO intake. Pressure ulcers of skin of multiple topographic sites/Pressure ulcer of right buttock, stage 3, POA: -2/2 bedbound and overall decline. wound care consult, appreciate recs Other chronic medical conditions: Continue with/resume home meds as and when able. T2DM: Continue with sliding scale insulin. Anxiety: Continue Ativan 3 times daily as needed and sertraline. Plan Feeding/fluids: minced/moist Analgesia: tylenol Sedation: ativan prn (home med) Thromboprophylaxis: SCD given platelets Head up position: na Ulcer prophylaxis: protonix Glycemic control: insulin protocol Spontaneous breathing trial: na Bowel care: miralax prn Indwelling catheter removal: na Deescalation of antibiotics: ceftriaxone/azithro Dispo: pt has poor prognosis. Family navigating hospice home vs rehab/snf. further meeting expected early next week. Admission and Anticipated Discharge Date Admission Date: May 06, 2024 Subjective Patient seen and examined at bedside. Patient sleepy, denies pain. Pt denies any new complaints. Physical Exam Physical Exam: Gen: awake and alert, denies pain. HEENT: NCAT, EOMI, not icteric. External ears normal. No rhinorrhea. wet mucous membranes. Noted chronic facial droop Neck: Supple, no observable masses Lungs: rhonchi in RLL, RML CV: RRR, no edema. Abdomen: Soft, nondistended, No rebound tenderness. MSK: No joint swelling, no redness. Skin: No rashes, petechiae, lesions. Normal color. Neuro: chronic left sided deficits noted Psych: Appropriate for situation. Results & Data Results & Data Vital Signs (Past 12 Hours) Vital Signs Temp Pulse Pulse Resp BP Pulse Ox O2 Del Method 05/12/24 12:02 36.4 C L 63 17 157/89 H 93 Room Air 05/12/24 10:31 Room Air 05/12/24 08:27 36.5 C 70 18 172/90 H 95 Room Air 05/12/24 07:14 60 05/12/24 03:00 36.3 C L 61 18 151/90 H 96 Room Air
[2024-05-13 07:25] LABS: BUN Creatinine Ratio 30.8 (10-20); Calcium 8.5 mg/dl (8.6-10.3); Creatinine Clr Calc Pharmacy 107.4 ml/min; Magnesium 1.8 mg/dl (1.7-2.4); Potassium 3.1 mmol/L (3.5-5.1)
[2024-05-13] MEDS: POTASSIUM CHLORIDE 20 MEQ/15 ML UDC PO SCH (08:33)
[2024-05-13] MEDS: POTASSIUM CHLORIDE 20 MEQ/15 ML UDC PO STA (08:43)
[2024-05-13] MEDS: POTASSIUM CHLORIDE / WTR 10 MEQ/100 ML PLCT IV SCH (08:43)
--- NOTE | 2024-05-13 14:21 | Hospitalist Progress Note ---
Date of Service May 13, 2024 Assessment & Plan (1) Glioblastoma: Plan Glioblastoma: Recurrent brain tumor: Dysphagia: -2/2 to resections and glioblastoma -patient is s/p resection plus adjunct radiation, then recurrent resection, now on lomustine for chemotherapy -see above, patient is showing signs of decline, with prognosis on scale of weeks to months -patient does not want aggressive therapies at this time, goal is to stay out of hospital and be comfortable when he leaves -would like optimized this admission as able Plan: -case management and palliative consult for hospice and placement at discharge --- appears family is now inclined towards snf/rehab. -Pt and family aware of and acceptable of the poor prognosis. -hold lomustine indefinitely -continue decadron 4mg in AM for energy improvement, decreasing cerebral edema -Palliative consulted, appreciate recs. Plan for next meeting in next few days. Possible CAP: Haziness in the right lung in imaging. Continue with Zosyn 05/06. plan for 7 days. Possible UTI: Noted on urinalysis. Antibiotic as above. Acute dehydration: secondary to poor PO intake. s/p fluid resuscitation. It is going to worsening w/ progressive GBM dz. IVF if /w poor PO intake. Pressure ulcers of skin of multiple topographic sites/Pressure ulcer of right buttock, stage 3, POA: -2/2 bedbound and overall decline. wound care consult, appreciate recs Other chronic medical conditions: Continue with/resume home meds as and when able. T2DM: Continue with sliding scale insulin. Anxiety: Continue Ativan 3 times daily as needed and sertraline. Plan Feeding/fluids: minced/moist Analgesia: tylenol Sedation: ativan prn (home med) Thromboprophylaxis: SCD given platelets Head up position: na Ulcer prophylaxis: protonix Glycemic control: insulin protocol Spontaneous breathing trial: na Bowel care: miralax prn Indwelling catheter removal: na Deescalation of antibiotics: ceftriaxone/azithro Dispo: pt has poor prognosis. Family navigating hospice home vs rehab/snf. further meeting expected early next week. Admission and Anticipated Discharge Date Admission Date: May 06, 2024 Subjective Patient seen and examined at bedside. Patient awake, denies pain. Pt denies any new complaints. Physical Exam Physical Exam: Gen: awake and alert, denies pain. HEENT: NCAT, EOMI, not icteric. External ears normal. No rhinorrhea. wet mucous membranes. Noted chronic facial droop Neck: Supple, no observable masses Lungs: rhonchi in RLL, RML CV: RRR, no edema. Abdomen: Soft, nondistended, No rebound tenderness. MSK: No joint swelling, no redness. Skin: No rashes, petechiae, lesions. Normal color. Neuro: chronic left sided deficits noted Psych: Appropriate for situation. Results & Data Results & Data Vital Signs (Past 12 Hours) Vital Signs Temp Pulse Pulse Resp BP Pulse Ox O2 Del Method 05/13/24 13:47 71 05/13/24 12:28 36.5 C 69 20 155/89 H 95 Room Air 05/13/24 10:09 Room Air 05/13/24 07:48 36.4 C L 61 20 145/81 H 96 Room Air 05/13/24 06:31 63 05/13/24 03:48 36.4 C L 65 18 152/84 H 94 Room Air
[2024-05-14 06:56] LABS: BUN Creatinine Ratio 31.3 (10-20); Calcium 8.6 mg/dl (8.6-10.3); Creatinine Clr Calc Pharmacy 87.2 ml/min; Magnesium 1.8 mg/dl (1.7-2.4); Phosphorus 3.2 mg/dl (2.5-4.9); Potassium 3.7 mmol/L (3.5-5.1)
--- NOTE | 2024-05-14 16:08 | Hospitalist Progress Note ---
Date of Service May 14, 2024 Assessment & Plan (1) Glioblastoma: Plan Glioblastoma: Recurrent brain tumor: Dysphagia: -2/2 to resections and glioblastoma -patient is s/p resection plus adjunct radiation, then recurrent resection, now on lomustine for chemotherapy -see above, patient is showing signs of decline, with prognosis on scale of weeks to months -patient does not want aggressive therapies at this time, goal is to stay out of hospital and be comfortable when he leaves -would like optimized this admission as able Plan: -case management and palliative consult for hospice and placement at discharge --- appears family is now inclined towards snf/rehab. -Pt and family aware of and acceptable of the poor prognosis. -hold lomustine indefinitely -continue decadron 4mg in AM for energy improvement, decreasing cerebral edema -Palliative consulted, appreciate recs. Plan for next meeting in next few days, tbd per preference. Possible CAP: Haziness in the right lung in imaging. Continue with Zosyn 05/06. plan for 7 days. will complete today. Possible UTI: Noted on urinalysis. Antibiotic as above. Acute dehydration: secondary to poor PO intake. s/p fluid resuscitation. It is going to worsening w/ progressive GBM dz. IVF if /w poor PO intake. Pressure ulcers of skin of multiple topographic sites/Pressure ulcer of right buttock, stage 3, POA: -2/2 bedbound and overall decline. wound care consult, appreciate recs Other chronic medical conditions: Continue with/resume home meds as and when able. T2DM: Continue with sliding scale insulin. Anxiety: Continue Ativan 3 times daily as needed and sertraline. Plan Feeding/fluids: minced/moist Analgesia: tylenol Sedation: ativan prn (home med) Thromboprophylaxis: SCD given platelets Head up position: na Ulcer prophylaxis: protonix Glycemic control: insulin protocol Spontaneous breathing trial: na Bowel care: miralax prn Indwelling catheter removal: na Deescalation of antibiotics: ceftriaxone/azithro Dispo: pt has poor prognosis. Family navigating hospice home vs rehab/snf. further meeting expected within few days Admission and Anticipated Discharge Date Admission Date: May 06, 2024 Subjective Patient seen and examined at bedside. Patient awake, denies pain. Pt denies any new complaints. Physical Exam Physical Exam: Gen: awake and alert, denies pain. HEENT: NCAT, EOMI, not icteric. External ears normal. No rhinorrhea. wet mucous membranes. Noted chronic facial droop Neck: Supple, no observable masses Lungs: rhonchi in RLL, RML CV: RRR, no edema. Abdomen: Soft, nondistended, No rebound tenderness. MSK: No joint swelling, no redness. Skin: No rashes, petechiae, lesions. Normal color. Neuro: chronic left sided deficits noted Psych: Appropriate for situation. Results & Data Results & Data Vital Signs (Past 12 Hours) Vital Signs Temp Pulse Pulse Resp BP Pulse Ox O2 Del Method 05/14/24 13:52 67 05/14/24 12:29 37.0 C 63 20 123/75 94 Room Air 05/14/24 08:50 Room Air 05/14/24 07:46 36.5 C 61 20 138/77 94 Room Air 05/14/24 07:12 65
--- NOTE | 2024-05-15 00:25 | Communication Note ---
Date of Service: May 15, 2024 Multiple attempts made to contact pt's by phone, no answer, no VM capacity. No visitors at bedside today.
[2024-05-15 06:08] LABS: BUN Creatinine Ratio 34.7 (10-20); Calcium 8.3 mg/dl (8.6-10.3); Potassium 3.8 mmol/L (3.5-5.1)
--- NOTE | 2024-05-15 13:03 | Communication Note ---
Date of Service: May 15, 2024 Brief phone conversation held with pt's son Ulysses, he requests a GOC meeting tomorrow at 13:00 with CM, palliative care and pt's and other son. is very sick today and david only be able to join by phone. Ulysses is requesting pt be dc'd home with hospice, he is planning on moving in to be pt's 24hr electronics recycler. ACP/GOC Meeting at 13:00 on 05-16-24
--- NOTE | 2024-05-15 15:20 | Hospitalist Progress Note ---
Date of Service May 15, 2024 Assessment & Plan (1) Glioblastoma: Plan Glioblastoma: Recurrent brain tumor: Dysphagia: -2/2 to resections and glioblastoma -patient is s/p resection plus adjunct radiation, then recurrent resection, now on lomustine for chemotherapy -see above, patient is showing signs of decline, with prognosis on scale of weeks to months -patient does not want aggressive therapies at this time, goal is to stay out of hospital and be comfortable when he leaves -would like optimized this admission as able Plan: -case management and palliative consult for hospice and placement at discharge --- family changing discharge options very frequently making it difficult to predict how to help them. -Pt and family aware of and acceptable of the poor prognosis. -hold lomustine indefinitely -continue decadron 4mg in AM for energy improvement, decreasing cerebral edema -Palliative consulted, appreciate recs. Plan for next meeting likely sherie at 1 pm. -called pt's son Ulysses, he states that they are working w/ [facility] health and [facility] to bring nursing care to home, pt's has bronchitis and they don't want to bring pt home now because of that, they are looking into bringing him home in next few days. Possible CAP: Haziness in the right lung in imaging. Continue with Zosyn /16. s/p 7 days rx course. Possible UTI: Noted on urinalysis. Antibiotic as above. Acute dehydration: secondary to poor PO intake. s/p fluid resuscitation. It is going to worsening w/ progressive GBM dz. IVF if /w poor PO intake. Pressure ulcers of skin of multiple topographic sites/Pressure ulcer of right buttock, stage 3, POA: -2/2 bedbound and overall decline. wound care consult, appreciate recs Other chronic medical conditions: Continue with/resume home meds as and when able. T2DM: Continue with sliding scale insulin. Anxiety: Continue Ativan 3 times daily as needed and sertraline. Plan Feeding/fluids: minced/moist Analgesia: tylenol Sedation: ativan prn (home med) Thromboprophylaxis: SCD given platelets Head up position: na Ulcer prophylaxis: protonix Glycemic control: insulin protocol Spontaneous breathing trial: na Bowel care: miralax prn Indwelling catheter removal: na Deescalation of antibiotics: ceftriaxone/azithro Dispo: pt has poor prognosis. Family navigating hospice home vs rehab/snf vs home care. further meeting expected likely sherie at 1 pm w/ palliative. Admission and Anticipated Discharge Date Admission Date: May 06, 2024 Subjective Patient seen and examined at bedside. Patient awake, denies pain. Pt denies any new complaints. Physical Exam Physical Exam: Gen: awake and alert, denies pain. HEENT: NCAT, EOMI, not icteric. External ears normal. No rhinorrhea. wet mucous membranes. Noted chronic facial droop Neck: Supple, no observable masses Lungs: rhonchi in RLL, RML CV: RRR, no edema. Abdomen: Soft, nondistended, No rebound tenderness. MSK: No joint swelling, no redness. Skin: No rashes, petechiae, lesions. Normal color. Neuro: chronic left sided deficits noted Psych: Appropriate for situation. Results & Data Results & Data Vital Signs (Past 12 Hours) Vital Signs Temp Pulse Pulse Resp BP Pulse Ox O2 Del Method 05/15/24 14:10 64 05/15/24 11:08 36.4 C 65 18 106/66 93 Room Air 05/15/24 07:43 36.5 C 61 16 127/81 92 Room Air 05/15/24 06:45 62
[2024-05-15] MEDS: GABAPENTIN 300 MG CAP PO SCH (20:38)
[2024-05-16 06:30] LABS: BUN Creatinine Ratio 34.4 (10-20); Calcium 8.2 mg/dl (8.6-10.3); Creatinine Clr Calc Pharmacy 99.7 ml/min; Magnesium 1.9 mg/dl (1.7-2.4); Phosphorus 3.1 mg/dl (2.5-4.9); Potassium 3.5 mmol/L (3.5-5.1)
--- NOTE | 2024-05-16 16:30 | Palliative Family Discussion ---
Date of Service May 16, 2024 Patient Directed Conference Time of Meetin:00 - 13:45 Participants: Beata Echeverria AGACNP Patient participation: yes Patient Support System: no family present Other Healthcare Provider Participation: ASYARVITA [place] Meeting Location: bedside Advanced Directive available: No If yes, descriptors: The patient's surrogate medical decision maker participated: no Legally authorized health care proxy: Spouse Aimee Valencia Other surrogate: n/a A family meeting was held for JADE VALENCIA. This meeting was necessary for determining the appropriate course of treatment. Topics of Discussion Topics of Discussion: 1. goals of care 2. hospice care 3. values/end of life planning and anticipatory guidance. Met with pt at bedside for scheduled meeting with pt, his sons and . No visitors present despite the fact that the son (Ulysses) had requested a 13:00 ACP meeting. Multiple attempts made to add sons Ulysses and Lan as well as Aimee to conversation by phone, no answer for each x2. Pt does not require a proxy for medical decisions. Patient currently exhibits decisional capacity based on the ability to convey understanding of personal PMHx, current medical condition, treatment options nor the risks / benefits of those options, and lack of ability to make decisions based on such knowledge. Hospital does not have written documentation of patient wishes concerning his chosen proxy for medical decisions. Per PA [id number], in absence of written documentation of patient wishes, pt's proxy for medical decisions would be his . Discussed goals of care, EOL planning and greatest wish/biggest fears with pt. He shared that he places most value on being home with family, although he did share acceptance that this may not be possible and accepts placement in SNF for hospice, but "would rather not". He shard his greatest wish as being home and biggest fear as "not seeing my family again". He shared that he understands that he is "getting sicker and may in months". He shared desire to go home and "never come back to hospital". He shared that he prefers home, but would accept spending his last days in SNF, "just not the hospital". Discussed hospice benefit: an interdisciplinary program offered by nurses, nurses aides, social workers, chaplains and a emergency medical tech for patients with a terminal condition and a life expectancy of less than 6 months. This is covered by Medicare at 100%/no out of pocket expense to patient and all meds/supplies needed by patient for the reason they are on hospice are paid for/covered by hospice. The goal is assure quality of life of the patient in their home setting (home, group home, inpatient hospice setting) by providing symptoms management, psychosocial and spiritual support. However, they cannot offer 24 hours care and if the family is unable to provide that care, they will have to consider personal care with out of pocket cost vs. group home placement. We discussed the goals of hospice as a patient service and the goals of care; we discussed EOL trajectories and transitions kaia the emotional impact of realizing mortality as a concrete reality from prior abstract considerations. Pt was reassured that no matter where they are along this trajectory, they are not alone - their medical team will remain by their side through their journey. Discussed the pros/cons of accepting help when especially weakened and distressed by pain-which would also help provide relief/decrease caregiver burden/strain. Pt shared that he would most like to go home with hospice care, but his family "feels differently" and have strong opinions that do not align with his own wishes. CM discussed the pt's VA benefits as an additional resource for financial support or power system operator support. Pt shared that he would like to try to home with the extra assistance of both hospice team and VA, to lessen the "burden of my family". Pt shared that he would like to at least go home for a few days to spend time with his two yorkies and his . He shared that his son Ulysses had offered to move into pt's home to offer care required. Pt is aware and understands options for future treatment vs [facility] and shared that he is "ready for hospice" and "no more doctors or hospitals". While still in pt's room again attempted to contact pt's spouse unsuccessfully. Pt reinforced wishes for [facility], with dc home for hospice, but wishes to verify plan with his before changing anything. Palliative care and CM will continue to attempt to contact pt's son and . Other Content of Meetin. Opportunity given for participants to speak and ask questions. 2. Participants were assured of attention to patient comfort. 3. Reassurance provided. 4. Support was provided for informed, good-jr decisions. 5. Emotions expressed by family were acknowledged and addressed. 6. Follow-up Outpatient: n/a 7. Plan of Care: continue current level of care through discussion with spouse and sons. Time Involved in Meeting: I spent 50 minutes overall addressing this case: 10 in medical data review/discussion with referring provider(s) and/or preparation for the visit 30 in direct interaction with the patient 20 Advance Care Planning/Goals of Care discussions as detailed above in note (must be >16min) 5 in subsequent review and synthesis of assessment and plan 5 in communicating with other providers regarding the patient's case: []
--- NOTE | 2024-05-16 19:10 | Hospitalist Progress Note ---
Date of Service May 16, 2024 Assessment & Plan (1) Glioblastoma: Plan Mr. 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 Per inpatient chart review history of [facility] hospitalization 03/02/2024-03/05/2024 for weakness, [facility] and recurrent [facility] hospitalization 04/11/24-04/17/24 for weakness, recent hospitalization for similar concerns on 04/27-05/03. Patients course prolonged due to family and patient's plan for discharge not being congruent with [facility] Palliative attempted family meeting today; however, family members did not attend. Patient expressed desire for home hospice but wishes to await 's thoughts #Recurrent Glioblastoma: #Dysphagia: -2/2 to resections and glioblastoma -patient is s/p resection plus adjunct radiation, then recurrent resection, now on lomustine for chemotherapy -see above, patient is showing signs of decline, with prognosis on scale of weeks to months -patient does not want aggressive therapies at this time, goal is to stay out of hospital and be comfortable when he leaves -would like optimized this admission as able Plan: -case management and palliative consult for hospice and placement at discharge --- family changing discharge options very frequently making it difficult to predict how to help them. -Pt and family aware of and acceptable of the poor prognosis. -hold lomustine indefinitely -continue decadron 4mg in AM for energy improvement, decreasing cerebral edema -Palliative consulted, appreciate recs. Pending final conversations with /family for dispo planning Possible CAP: Haziness in the right lung in imaging. Continue with Zosyn 05/06. s/p 7 days rx course. Possible UTI: Noted on urinalysis. Antibiotic as above. Acute dehydration: secondary to poor PO intake. s/p fluid resuscitation. It is going to worsening w/ progressive GBM dz. IVF if /w poor PO intake. Pressure ulcers of skin of multiple topographic sites/Pressure ulcer of right buttock, stage 3, POA: -2/2 bedbound and overall decline. wound care consult, appreciate recs Other chronic medical conditions: Continue with/resume home meds as and when able. T2DM: Continue with sliding scale insulin. Anxiety: Continue Ativan 3 times daily as needed and sertraline. Dispo: pt has poor prognosis. Family navigating hospice home vs rehab/snf vs home care. Admission and Anticipated Discharge Date Admission Date: May 06, 2024 Subjective NAEO patient states he just feels tired and wishes to go home Physical Exam Constitutional: lethargic, chronically ill appearing gentleman Respiratory: normal respiratory effort, lungs clear to auscultation Cardiovascular: RRR, no murmur, no edema Results & Data Results & Data Vital Signs (Past 12 Hours) Vital Signs Temp Pulse Pulse Resp BP Pulse Ox O2 Del Method 05/16/24 16:02 36.5 C 63 16 123/78 96 Room Air 05/16/24 13:00 66 05/16/24 11:32 36.7 C 70 16 115/76 95 Room Air 05/16/24 07:59 36.4 C L 58 L 16 169/91 H 97 Room Air Laboratory Results BMP 05/16/24 05:56 Sodium 133 L Potassium 3.5 Chloride 99 Carbon Dioxide 28 BUN 22 Creatinine 0.64 Glucose 166 H Calcium 8.2 L Medications Administered Home Medications Medication Instructions Recorded Confirmed Last Taken pantoprazole 40 mg tablet,delayed 40 mg PO QAM 06/18/18 05/06/24 04/17/24 release multivitamin 1 tab PO DAILY 08/21/19 05/06/24 04/17/24 carvedilol 3.125 mg tablet 3.125 mg PO BID 07/31/20 05/06/24 04/17/24 diclofenac sodium 1 % topical gel 2 g topical QID PRN Pain 07/31/20 05/06/24 04/17/24 polyethylene glycol 3350 17 17 g PO DAILY PRN constipation 07/31/20 05/06/24 04/17/24 gram/dose oral powder (Miralax) ergocalciferol (vitamin D2) 10 mcg 10 mcg PO DAILY 07/10/21 05/06/24 04/17/24 (400 unit) tablet sertraline 100 mg tablet (Zoloft) 100 mg PO DAILY 12/27/23 05/06/24 04/17/24 gabapentin 300 mg capsule 300 mg PO TID 03/02/24 05/06/24 04/17/24 levetiracetam 750 mg tablet 750 mg PO UD 03/02/24 05/06/24 04/17/24 magnesium oxide 420 mg tablet 420 mg PO HS 03/02/24 05/06/24 04/17/24 finasteride 5 mg tablet 5 mg PO HS #0 tabs 03/05/24 05/06/24 04/17/24 tamsulosin 0.4 mg capsule 0.4 mg PO HS #0 caps 03/05/24 05/06/24 04/17/24 atorvastatin 80 mg tablet 80 mg PO DAILY 04/10/24 05/06/24 04/17/24 docusate sodium 100 mg tablet 100 mg PO BID PRN Constipation 04/10/24 05/06/24 04/17/24 insulin glargine 100 unit/mL (3 12 unit subcut UD 04/10/24 05/06/24 04/17/24 mL) subcutaneous pen lomustine 40 mg capsule 40 mg PO UD 04/10/24 05/06/24 Unknown lorazepam 0.5 mg tablet 0.5 mg PO TID PRN Anxiety 04/10/24 05/06/24 04/17/24 amlodipine 5 mg tablet (Norvasc) 5 mg PO QAM #30 tabs 04/17/24 05/06/24 04/17/24 Active Medications Generic Name Dose Route Start Last Admin Trade Name Freq PRN Reason Stop Dose Admin Acetaminophen 650 mg 05/07/24 10:29 05/07/24 21:08 Acetaminophen Susp 325 Mg/10.15 Ml Udc PO 06/06/24 10:28 650 mg Q4H PRN Administration Pain or Fever Amlodipine Besylate 5 mg 05/07/24 09:00 05/16/24 08:39 Amlodipine Besylate 5 Mg Tab PO 06/06/24 08:59 5 mg QAM ALLEY Administration Atorvastatin Calcium 80 mg 05/07/24 09:00 05/16/24 08:39 Atorvastatin 40 Mg Tab PO 06/06/24 08:59 80 mg DAILY ALLEY Administration Carvedilol 3.125 mg 05/06/24 21:00 05/16/24 08:39 Carvedilol 3.125 Mg Tab PO 06/05/24 20:59 3.125 mg BID ALLEY Administration Dexamethasone 4 mg 05/08/24 06:30 05/16/24 05:48 Dexamethasone 4 Mg Tab PO 06/07/24 06:29 4 mg DAILYBB ALLEY Administration Finasteride 5 mg 05/06/24 21:00 05/15/24 20:37 Finasteride 5 Mg Tab PO 06/05/24 20:59 5 mg HS ALLEY Administration Gabapentin 300 mg 05/15/24 21:00 05/15/24 20:38 Gabapentin 300 Mg Cap PO 06/14/24 20:59 Not Given HS ALLEY Pantoprazole Sodium 40 mg in 10 mls @ 5 mls/min 05/08/24 09:00 05/16/24 08:39 Protonix IV 06/07/24 08:59 5 mls/min DAILY ALLEY Administration Insulin Aspart 0 units 05/06/24 21:00 05/16/24 18:24 Insulin Aspart Per Unit Charge SC 06/05/24 20:59 7 units ACHS ALLEY Administration Levetiracetam 750 mg 05/06/24 21:00 05/07/24 09:36 Levetiracetam 250 Mg Tab PO 06/05/24 20:59 750 mg BID ALLEY Administration Levetiracetam 750 mg 05/07/24 21:00 05/16/24 08:39 Levetiracetam 500 Mg/5 Ml Vial 750mg IV 06/06/24 20:59 750 mg BID ALLEY Administration Lidocaine 1 patch 05/07/24 18:15 05/15/24 20:36 Lidocaine 5% 1 Patch TD 06/06/24 18:14 1 patch HS ALLEY Administration Miscellaneous 1 each 05/07/24 21:00 05/15/24 20:40 Remove Lidoderm Patch N/A 06/06/24 20:59 Not Given DAILY@2100 ALLEY Multivitamins 1 tab 05/07/24 09:00 05/07/24 09:36 Multivitamin Tab PO 06/06/24 08:59 1 tab QAM ALLEY Administration Multivitamins/Minerals 15 ml 05/08/24 09:00 05/16/24 08:39 Multi Vit W/Minerals Liquid 15 Ml Udc PO 06/07/24 08:59 15 ml QAM ALLEY Administration Nystatin 1 appln 05/10/24 11:04 05/13/24 08:47 Nystatin Powder 15gm Btl EXT 06/09/24 11:03 1 appln BID PRN Administration skin fungal infection Ondansetron HCl 4 mg 05/06/24 19:10 05/11/24 09:39 Ondansetron Inj 2 Mg/Ml 2 Ml Vial IV 06/05/24 19:09 4 mg Q6H PRN Administration Nausea Pantoprazole Sodium 40 mg 05/07/24 09:00 05/07/24 09:36 Pantoprazole 40 Mg Tab PO 06/06/24 08:59 40 mg QAM ALLEY Administration Sertraline HCl 100 mg 05/07/24 09:00 05/16/24 08:39 Sertraline Hcl 100 Mg Tablet PO 06/06/24 08:59 100 mg DAILY ALLEY Administration Tamsulosin HCl 0.4 mg 05/06/24 21:00 05/15/24 20:39 Tamsulosin Hcl 0.4 Mg Cap PO 06/05/24 20:59 0.4 mg HS ALLEY Administration
[2024-05-17 09:49] LABS: Hematocrit (blood only) 37.7 % (42.0-52.0); Hemoglobin 13.2 g/dl (14.0-18.0); Mean Corpuscular Hemoglobin 31.4 pg (25.0-34.0); Mean Corpuscular Volume 89.5 fL (80.0-100.0); Mean Platelet Volume 9.1 fL (9.4-12.4); Platelet Count 152 K/uL (130-400); RDW Coefficient of Variation 13.9 % (11.5-14.5); RDW Standard Deviation 44.1 fL (36.4-46.3); Red Blood Count 4.21 M/uL (4.70-6.10); White Blood Count 8.34 K/ul (4.8-10.8)
[2024-05-17 10:05] LABS: BUN Creatinine Ratio 32.9 (10-20); Calcium 8.6 mg/dl (8.6-10.3); Creatinine Clr Calc Pharmacy 75.1 ml/min; Magnesium 2.1 mg/dl (1.7-2.4); Phosphorus 3.7 mg/dl (2.5-4.9); Potassium 3.7 mmol/L (3.5-5.1)
--- NOTE | 2024-05-17 11:28 | Hospitalist Progress Note ---
Date of Service May 17, 2024 Assessment & Plan (1) Glioblastoma: Plan Mr. Lam is a 73 yo male with pmhx of glioblastoma s/p surgical resection in 2020, with recurrence glioblastoma and s/p surgery 01/31/24 at [facility], history seizure with first glioblastoma without any recurrent seizures, HTN, dyslipidemia, history DVT/PE, anticoagulated on Xarelto, DM II, pulmonary hypertension, PTSD, depression, GERD, BPH presented to ER with weakness. Per inpatient chart review history of [facility] hospitalization 03/02/2024-03/05/2024 for weakness, [facility] and recurrent [facility] hospitalization 04/11/24-04/17/24 for weakness, recent hospitalization for similar concerns on 04/27-05/03. Group discussion with Case management and son, Ulysses, was had for 30 minutes. Ultimately, Ulysses wishes to bring patient home--hesitant to state pallitaive v hospice at this time, but the goal was stated to prioritize quality of life and to get patient home. Case management working to see what other resources are available to aid in support at home. Patient expressed desire for home hospice but wishes to await 's thoughts on dispo planning #Recurrent Glioblastoma: #Dysphagia: -2/ to resections and glioblastoma -patient is s/p resection plus adjunct radiation, then recurrent resection, now on lomustine for chemotherapy -see above, patient is showing signs of decline, with prognosis on scale of weeks to months -patient does not want aggressive therapies at this time, goal is to stay out of hospital and be comfortable when he leaves -would like optimized this admission as able Plan: -case management and palliative consult for hospice and placement at discharge --- family changing discharge options very frequently making it difficult to predict how to help them. -Pt and family aware of and acceptable of the poor prognosis. -hold lomustine indefinitely -continue decadron 4mg in AM for energy improvement, decreasing cerebral edema -Palliative consulted, appreciate recs. Pending final conversations with /family for dispo planning Possible CAP: Haziness in the right lung in imaging. Continue with Zosyn 05/06. s/p 7 days rx course. Possible UTI: Noted on urinalysis. Antibiotic as above. Acute dehydration: secondary to poor PO intake. s/p fluid resuscitation. It is going to worsening w/ progressive GBM dz. IVF if /w poor PO intake. Pressure ulcers of skin of multiple topographic sites/Pressure ulcer of right buttock, stage 3, POA: -2/2 bedbound and overall decline. wound care consult, appreciate recs Other chronic medical conditions: Continue with/resume home meds as and when able. T2DM: Continue with sliding scale insulin. Anxiety: Continue Ativan 3 times daily as needed and sertraline. Dispo: pt has poor prognosis. Family navigating what discharge home in coming days may look like Admission and Anticipated Discharge Date Admission Date: May 06, 2024 Subjective Denies any new symptoms this morning no chest pain, sob or other acute concerns Physical Exam Constitutional: WD/WN, vitals as above Respiratory: normal respiratory effort, lungs clear to auscultation Cardiovascular: RRR, no murmur, no edema Gastrointestinal (Abdomen): normal bowel sounds, soft, nontender, no hepatosplenomegaly Results & Data Results & Data Vital Signs (Past 12 Hours) Vital Signs Temp Pulse Pulse Resp BP BP Pulse Ox 05/17/24 08:14 36.6 C 60 18 147/91 H 95 05/17/24 08:00 05/17/24 07:00 57 L 05/17/24 02:37 36.6 C 64 18 155/92 H 96 05/16/24 23:52 O2 Del Method 05/17/24 08:14 Room Air 05/17/24 08:00 Room Air 05/17/24 07:00 05/17/24 02:37 Room Air 05/16/24 23:52 Room Air Laboratory Results Short CBC 05/17/24 Range/Units 09:30 WBC 8.34 (4.8-10.8) K/ul Hgb 13.2 L (14.0-18.0) g/dl Hct 37.7 L (42.0-52.0) % Plt Count 152 (130-400) K/uL BMP 05/17/24 09:30 Sodium 132 L Potassium 3.7 Chloride 97 L Carbon Dioxide 30 BUN 28 H Creatinine 0.85 Glucose 219 H Calcium 8.6 Medications Administered Home Medications Medication Instructions Recorded Confirmed Last Taken pantoprazole 40 mg tablet,delayed 40 mg PO QAM 06/18/18 05/06/24 04/17/24 release multivitamin 1 tab PO DAILY 08/21/19 05/06/2425 carvedilol 3.125 mg tablet 3.125 mg PO BID 07/31/20 05/06/24 04/17/24 diclofenac sodium 1 % topical gel 2 g topical QID PRN Pain 07/31/20 05/06/24 04/17/24 polyethylene glycol 3350 17 17 g PO DAILY PRN constipation 07/31/20 05/06/24 04/17/24 gram/dose oral powder (Miralax) ergocalciferol (vitamin D2) 10 mcg 10 mcg PO DAILY 07/10/21 05/06/24 04/17/24 (400 unit) tablet sertraline 100 mg tablet (Zoloft) 100 mg PO DAILY 12/27/23 05/06/24 04/17/24 gabapentin 300 mg capsule 300 mg PO TID 03/02/24 05/06/24 04/17/24 levetiracetam 750 mg tablet 750 mg PO UD 03/02/24 05/06/24 04/17/24 magnesium oxide 420 mg tablet 420 mg PO HS 03/02/24 05/06/24 04/17/24 finasteride 5 mg tablet 5 mg PO HS #0 tabs 03/05/24 05/06/24 04/17/24 tamsulosin 0.4 mg capsule 0.4 mg PO HS #0 caps 03/05/24 05/06/24 04/17/24 atorvastatin 80 mg tablet 80 mg PO DAILY 04/10/24 05/06/24 04/17/24 docusate sodium 100 mg tablet 100 mg PO BID PRN Constipation 04/10/24 05/06/24 04/17/24 insulin glargine 100 unit/mL (3 12 unit subcut UD 04/10/24 05/06/24 04/17/24 mL) subcutaneous pen lomustine 40 mg capsule 40 mg PO UD 04/10/24 05/06/24 Unknown lorazepam 0.5 mg tablet 0.5 mg PO TID PRN Anxiety 04/10/24 05/06/24 04/17/24 amlodipine 5 mg tablet (Norvasc) 5 mg PO QAM #30 tabs 04/17/24 05/06/24 04/17/24 Active Medications Generic Name Dose Route Start Last Admin Trade Name Freq PRN Reason Stop Dose Admin Acetaminophen 650 mg 05/07/24 10:29 05/07/24 21:08 Acetaminophen Susp 325 Mg/10.15 Ml Udc PO 06/06/24 10:28 650 mg Q4H PRN Administration Pain or Fever Amlodipine Besylate 5 mg 05/07/24 09:00 05/17/24 10:34 Amlodipine Besylate 5 Mg Tab PO 06/06/24 08:59 5 mg QAM ALLEY Administration Atorvastatin Calcium 80 mg 05/07/24 09:00 05/17/24 10:34 Atorvastatin 40 Mg Tab PO 06/06/24 08:59 80 mg DAILY ALLEY Administration Carvedilol 3.125 mg 05/06/24 21:00 05/17/24 10:33 Carvedilol 3.125 Mg Tab PO 06/05/24 20:59 3.125 mg BID ALLEY Administration Dexamethasone 4 mg 05/08/24 06:30 05/17/24 06:10 Dexamethasone 4 Mg Tab PO 06/07/24 06:29 4 mg DAILYBB ALLEY Administration Finasteride 5 mg 05/06/24 21:00 05/16/24 21:39 Finasteride 5 Mg Tab PO 06/05/24 20:59 5 mg HS ALLEY Administration Gabapentin 300 mg 05/15/24 21:00 05/16/24 21:39 Gabapentin 300 Mg Cap PO 06/14/24 20:59 300 mg HS ALLEY Administration Pantoprazole Sodium 40 mg in 10 mls @ 5 mls/min 05/08/24 09:00 05/17/24 10:36 Protonix IV 06/07/24 08:59 5 mls/min DAILY ALLEY Administration Insulin Aspart 0 units 05/06/24 21:00 05/17/24 13:03 Insulin Aspart Per Unit Charge SC 06/05/24 20:59 4 units ACHS ALLEY Administration Levetiracetam 750 mg 05/06/24 21:00 05/07/24 09:36 Levetiracetam 250 Mg Tab PO 06/05/24 20:59 750 mg BID ALLEY Administration Levetiracetam 750 mg 05/07/24 21:00 05/17/24 10:37 Levetiracetam 500 Mg/5 Ml Vial 750mg IV 06/06/24 20:59 750 mg BID ALLEY Administration Lidocaine 1 patch 05/07/24 18:15 05/16/24 21:39 Lidocaine 5% 1 Patch TD 06/06/24 18:14 1 patch HS ALLEY Administration Miscellaneous 1 each 05/07/24 21:00 05/16/24 21:40 Remove Lidoderm Patch N/A 06/06/24 20:59 1 each DAILY@2100 ALLEY Administration Multivitamins 1 tab 05/07/24 09:00 05/07/24 09:36 Multivitamin Tab PO 06/06/24 08:59 1 tab QAM ALLEY Administration Multivitamins/Minerals 15 ml 05/08/24 09:00 05/17/24 10:36 Multi Vit W/Minerals Liquid 15 Ml Udc PO 06/07/24 08:59 15 ml QAM ALLEY Administration Nystatin 1 appln 05/10/24 11:04 05/13/24 08:47 Nystatin Powder 15gm Btl EXT 06/09/24 11:03 1 appln BID PRN Administration skin fungal infection Ondansetron HCl 4 mg 05/06/24 19:10 05/11/24 09:39 Ondansetron Inj 2 Mg/Ml 2 Ml Vial IV 06/05/24 19:09 4 mg Q6H PRN Administration Nausea Pantoprazole Sodium 40 mg 05/07/24 09:00 05/07/24 09:36 Pantoprazole 40 Mg Tab PO 06/06/24 08:59 40 mg QAM ALLEY Administration Sertraline HCl 100 mg 05/07/24 09:00 05/17/24 10:34 Sertraline Hcl 100 Mg Tablet PO 06/06/24 08:59 100 mg DAILY ALLEY Administration Tamsulosin HCl 0.4 mg 05/06/24 21:00 05/16/24 21:41 Tamsulosin Hcl 0.4 Mg Cap PO 06/05/24 20:59 0.4 mg HS ALLEY Administration
--- NOTE | 2024-05-18 16:27 | Hospitalist Progress Note ---
Date of Service May 18, 2024 Assessment & Plan (1) Glioblastoma: Plan Mr. Lam is a 73 yo male with pmhx of glioblastoma s/p surgical resection in 2020, with recurrence glioblastoma and s/p surgery 01/31/24 at [facility], history seizure with first glioblastoma without any recurrent seizures, HTN, dyslipidemia, history DVT/PE, anticoagulated on Xarelto, DM II, pulmonary hypertension, PTSD, depression, GERD, BPH presented to ER with weakness. Per inpatient chart review history of [facility] hospitalization 03/02/2024-03/05/2024 for weakness, [facility] and recurrent [facility] hospitalization 04/11/24-04/17/24 for weakness, recent hospitalization for similar concerns on 04/27-05/03. Group discussion with Case management and son, Ulysses, was had for 30 minutes. Ultimately, Ulysses wishes to bring patient home--hesitant to state pallitaive v hospice at this time, but the goal was stated to prioritize quality of life and to get patient home. Case management working to see what other resources are available to aid in support at home. Patient expressed desire for home hospice but wishes to await 's thoughts on dispo planning #Recurrent Glioblastoma: #Dysphagia: -2/2 to resections and glioblastoma -patient is s/p resection plus adjunct radiation, then recurrent resection, now on lomustine for chemotherapy -see above, patient is showing signs of decline, with prognosis on scale of weeks to months -patient does not want aggressive therapies at this time, goal is to stay out of hospital and be comfortable when he leaves -would like optimized this admission as able Plan: -case management and palliative consult for hospice and placement at discharge --- family changing discharge options very frequently making it difficult to predict how to help them. -Pt and family aware of and acceptable of the poor prognosis. -hold lomustine indefinitely -continue decadron 4mg in AM for energy improvement, decreasing cerebral edema -Palliative consulted, appreciate recs. Pending final conversations with /family for dispo planning #Possible CAP: Haziness in the right lung in imaging. Zosyn 05/06. s/p 7 days rx course. # UTI: Noted on urinalysis. Antibiotic as above. #Acute dehydration: secondary to poor PO intake. s/p fluid resuscitation. It is going to worsening w/ progressive GBM dz. IVF if /w poor PO intake. Pressure ulcers of skin of multiple topographic sites/Pressure ulcer of right buttock, stage 3, POA: -2/2 bedbound and overall decline. wound care consult, appreciate recs Other chronic medical conditions: Continue with/resume home meds as and when able. T2DM: Continue with sliding scale insulin. Anxiety: Continue Ativan 3 times daily as needed and sertraline. Dispo: pt has poor prognosis. Family navigating what discharge home in coming days may look like; perhaps discharge on Tuesday Admission and Anticipated Discharge Date Admission Date: May 06, 2024 Subjective NAEO Patient requesting tea and communicative at bedside Denies any acute concerns at this time Physical Exam Constitutional: WD/WN, vitals as above Respiratory: normal respiratory effort, lungs clear to auscultation Cardiovascular: RRR, no murmur, no edema Results & Data Results & Data Vital Signs (Past 12 Hours) Vital Signs Temp Pulse Pulse Pulse Resp BP BP 05/18/24 15:48 36.3 C L 63 18 113/66 05/18/24 14:00 59 L 05/18/24 11:46 36.4 C L 61 16 124/78 05/18/24 09:03 62 05/18/24 08:54 62 144/84 H 05/18/24 08:20 05/18/24 07:37 36.4 C L 58 L 20 128/76 05/18/24 07:00 54 L Pulse Ox O2 Del Method 05/18/24 15:48 95 Room Air 05/18/24 14:00 05/18/24 11:46 95 Room Air 05/18/24 09:03 05/18/24 08:54 05/18/24 08:20 Room Air 05/18/24 07:37 94 Room Air 05/18/24 07:00 Medications Administered Home Medications Medication Instructions Recorded Confirmed Last Taken pantoprazole 40 mg tablet,delayed 40 mg PO QAM 06/18/18 05/06/24 04/17/24 release multivitamin 1 tab PO DAILY 08/21/19 05/06/24 04/17/24 carvedilol 3.125 mg tablet 3.125 mg PO BID 07/31/20 05/06/24 04/17/24 diclofenac sodium 1 % topical gel 2 g topical QID PRN Pain 07/31/20 05/06/24 04/17/24 polyethylene glycol 3350 17 17 g PO DAILY PRN constipation 07/31/20 05/06/24 04/17/24 gram/dose oral powder (Miralax) ergocalciferol (vitamin D2) 10 mcg 10 mcg PO DAILY 07/10/21 05/06/24 04/17/24 (400 unit) tablet sertraline 100 mg tablet (Zoloft) 100 mg PO DAILY 12/27/23 05/06/24 04/17/24 gabapentin 300 mg capsule 300 mg PO TID 03/02/24 05/06/24 04/17/24 levetiracetam 750 mg tablet 750 mg PO UD 03/02/24 05/06/24 04/17/24 magnesium oxide 420 mg tablet 420 mg PO HS 03/02/24 05/06/24 04/17/24 finasteride 5 mg tablet 5 mg PO HS #0 tabs 03/05/24 05/06/24 04/17/24 tamsulosin 0.4 mg capsule 0.4 mg PO HS #0 caps 03/05/24 05/06/24 04/17/24 atorvastatin 80 mg tablet 80 mg PO DAILY 04/10/24 05/06/24 04/17/24 docusate sodium 100 mg tablet 100 mg PO BID PRN Constipation 04/10/24 05/06/24 04/17/24 insulin glargine 100 unit/mL (3 12 unit subcut UD 04/10/24 05/06/24 04/17/24 mL) subcutaneous pen lomustine 40 mg capsule 40 mg PO UD 04/10/24 05/06/24 Unknown lorazepam 0.5 mg tablet 0.5 mg PO TID PRN Anxiety 04/10/24 05/06/24 04/17/24 amlodipine 5 mg tablet (Norvasc) 5 mg PO QAM #30 tabs 04/17/24 05/06/24 04/17/24 Active Medications Generic Name Dose Route Start Last Admin Trade Name Freq PRN Reason Stop Dose Admin Acetaminophen 650 mg 05/07/24 10:29 05/07/24 21:08 Acetaminophen Susp 325 Mg/10.15 Ml Udc PO 06/06/24 10:28 650 mg Q4H PRN Administration Pain or Fever Amlodipine Besylate 5 mg 05/07/24 09:00 05/18/24 08:41 Amlodipine Besylate 5 Mg Tab PO 06/06/24 08:59 5 mg QAM ALLEY Administration Atorvastatin Calcium 80 mg 05/07/24 09:00 05/18/24 08:42 Atorvastatin 40 Mg Tab PO 06/06/24 08:59 80 mg DAILY ALLEY Administration Carvedilol 3.125 mg 05/06/24 21:00 05/18/24 09:03 Carvedilol 3.125 Mg Tab PO 06/05/24 20:59 3.125 mg BID ALLEY Administration Dexamethasone 4 mg 05/08/24 06:30 05/18/24 06:08 Dexamethasone 4 Mg Tab PO 06/07/24 06:29 4 mg DAILYBB ALLEY Administration Finasteride 5 mg 05/06/24 21:00 05/17/24 20:57 Finasteride 5 Mg Tab PO 06/05/24 20:59 5 mg HS ALLEY Administration Gabapentin 300 mg 05/15/24 21:00 05/17/24 20:58 Gabapentin 300 Mg Cap PO 06/14/24 20:59 300 mg HS ALLEY Administration Insulin Aspart 0 units 05/06/24 21:00 05/18/24 12:37 Insulin Aspart Per Unit Charge SC 06/05/24 20:59 1 units ACHS ALLEY Administration Levetiracetam 750 mg 05/06/24 21:00 05/07/24 09:36 Levetiracetam 250 Mg Tab PO 06/05/24 20:59 750 mg BID ALLEY Administration Levetiracetam 750 mg 05/07/24 21:00 05/18/24 08:20 Levetiracetam 500 Mg/5 Ml Vial 750mg IV 06/06/24 20:59 750 mg BID ALLEY Administration Lidocaine 1 patch 05/07/24 18:15 05/17/24 20:58 Lidocaine 5% 1 Patch TD 06/06/24 18:14 1 patch HS ALLEY Administration Miscellaneous 1 each 05/07/24 21:00 05/17/24 20:58 Remove Lidoderm Patch N/A 06/06/24 20:59 1 each DAILY@2100 ALLEY Administration Multivitamins 1 tab 05/07/24 09:00 05/07/24 09:36 Multivitamin Tab PO 06/06/24 08:59 1 tab QAM ALLEY Administration Multivitamins/Minerals 15 ml 05/08/24 09:00 05/18/24 08:53 Multi Vit W/Minerals Liquid 15 Ml Udc PO 06/07/24 08:59 15 ml QAM ALLEY Administration Nystatin 1 appln 05/10/24 11:04 05/13/24 08:47 Nystatin Powder 15gm Btl EXT 06/09/24 11:03 1 appln BID PRN Administration skin fungal infection Ondansetron HCl 4 mg 05/06/24 19:10 05/11/24 09:39 Ondansetron Inj 2 Mg/Ml 2 Ml Vial IV 06/05/24 19:09 4 mg Q6H PRN Administration Nausea Sertraline HCl 100 mg 05/07/24 09:00 05/18/24 08:53 Sertraline Hcl 100 Mg Tablet PO 06/06/24 08:59 100 mg DAILY ALLEY Administration Tamsulosin HCl 0.4 mg 05/06/24 21:00 05/17/24 20:57 Tamsulosin Hcl 0.4 Mg Cap PO 06/05/24 20:59 0.4 mg HS ALLEY Administration
[2024-05-19 10:05] LABS: Hematocrit (blood only) 38.5 % (42.0-52.0); Hemoglobin 13.1 g/dl (14.0-18.0); Mean Corpuscular Hemoglobin 30.6 pg (25.0-34.0); Mean Platelet Volume 9.5 fL (9.4-12.4); Platelet Count 131 K/uL (130-400); RDW Coefficient of Variation 14.5 % (11.5-14.5); RDW Standard Deviation 46.4 fL (36.4-46.3); Red Blood Count 4.28 M/uL (4.70-6.10); White Blood Count 7.18 K/ul (4.8-10.8)
[2024-05-19 10:29] LABS: BUN Creatinine Ratio 34.8 (10-20); Calcium 8.1 mg/dl (8.6-10.3); Creatinine Clr Calc Pharmacy 69.4 ml/min; Potassium 3.8 mmol/L (3.5-5.1)
[2024-05-19] MEDS: PANTOprazole 40 MG TAB PO SCH (11:22)
--- NOTE | 2024-05-19 12:10 | Hospitalist Progress Note ---
Date of Service May 19, 2024 Assessment & Plan (1) Glioblastoma: Plan Mr. Lam is a 73 yo male with pmhx of glioblastoma s/p surgical resection in 2020, with recurrence glioblastoma and s/p surgery 01/31/24 at [facility], history seizure with first glioblastoma without any recurrent seizures, HTN, dyslipidemia, history DVT/PE, anticoagulated on Xarelto, DM II, pulmonary hypertension, PTSD, depression, GERD, BPH presented to ER with weakness. Per inpatient chart review history of [facility] hospitalization 03/02/2024-03/05/2024 for weakness, [facility] and recurrent [facility] hospitalization 04/11/24-04/17/24 for weakness, recent hospitalization for similar concerns on 04/27-05/03. Group discussion with Case management and son, Ulysses, was had for 30 minutes. Ultimately, Ulysses wishes to bring patient home--hesitant to state pallitaive v hospice at this time, but the goal was stated to prioritize quality of life and to get patient home on 05/17 Awaiting coordination of IVF and evening caregivers for discharge #Recurrent Glioblastoma: #Dysphagia: -2/2 to resections and glioblastoma -patient is s/p resection plus adjunct radiation, then recurrent resection, now on lomustine for chemotherapy -see above, patient is showing signs of decline, with prognosis on scale of weeks to months -patient does not want aggressive therapies at this time, goal is to stay out of hospital and be comfortable when he leaves -would like optimized this admission as able Plan: -case management and palliative consult for hospice and placement at discharge --- family changing discharge options very frequently making it difficult to predict how to help them. -Pt and family aware of and acceptable of the poor prognosis. -hold lomustine indefinitely -continue decadron 4mg in AM for energy improvement, decreasing cerebral edema -Palliative consulted, appreciate recs. Pending final conversations with /family for dispo planning #Possible CAP: Haziness in the right lung in imaging. Zosyn 05/06. s/p 7 days rx course. # UTI: Noted on urinalysis. Antibiotic as above. #Acute dehydration: secondary to poor PO intake. s/p fluid resuscitation. It is going to worsening w/ progressive GBM dz. IVF if /w poor PO intake. Pressure ulcers of skin of multiple topographic sites/Pressure ulcer of right buttock, stage 3, POA: -2/2 bedbound and overall decline. wound care consult, appreciate recs Other chronic medical conditions: Continue with/resume home meds as and when able. T2DM: Continue with sliding scale insulin. Anxiety: Continue Ativan 3 times daily as needed and sertraline. Dispo: pt has poor prognosis. Family navigating what discharge home in coming days may look like; perhaps discharge on Tuesday Admission and Anticipated Discharge Date Admission Date: May 06, 2024 Subjective NAEO Eating breakfast this am, reports no active concerns Physical Exam Constitutional: WD/WN, vitals as above Respiratory: no distress, diminished 2/2 effort Cardiovascular: RRR, no murmur, no edema Results & Data Results & Data Vital Signs (Past 12 Hours) Vital Signs Temp Pulse Pulse Pulse Resp BP BP 05/19/24 07:30 36.3 C L 55 L 18 112/76 05/19/24 07:29 55 L 05/19/24 03:52 36.6 C 59 L 18 107/66 Pulse Ox O2 Del Method 05/19/24 07:30 93 Room Air 05/19/24 07:29 05/19/24 03:52 92 Room Air
[2024-05-19] MEDS: LANSOPRAZOLE 30 MG SOLTAB PO SCH (18:43)
--- NOTE | 2024-05-20 11:34 | Hospitalist Progress Note ---
Date of Service May 20, 2024 Assessment & Plan (1) Glioblastoma: Plan Mr. Lam is a 73 yo male with pmhx of glioblastoma s/p surgical resection in 2020, with recurrence glioblastoma and s/p surgery 01/31/24 at [facility], history seizure with first glioblastoma without any recurrent seizures, HTN, dyslipidemia, history DVT/PE, anticoagulated on Xarelto, DM II, pulmonary hypertension, PTSD, depression, GERD, BPH presented to ER with weakness. Per inpatient chart review history of [facility] hospitalization 03/02/2024-03/05/2024 for weakness, OROPEZA and recurrent [facility] hospitalization 04/11/24-04/17/24 for weakness, recent hospitalization for similar concerns on 04/27-05/03. Group discussion with Case management and son, Ulysses, was had for 30 minutes. Ultimately, Ulysses wishes to bring patient home--hesitant to state palliative v hospice at this time, but the goal was stated to prioritize quality of life and to get patient home on 05/17. No events from the 05/17 onward until 05/20 when monitor noted signs concerning for cardiac pause and questionable block. Cardiology to review and aid in discussion. Discussed with on phone that patient is likely no candidate for any intervention to any degree. Expressed to that patient continues to exp ress wish to at home and that if we continue to keep ongoing medical efforts, patient will not get his wish for end of life. It was also verbalized understanding and requests call back at later time in day. 60 minutes spent discussing case with , nurses, and case management. #Goals of care continue discussion about patient's wishes and final dispo plans patient wishes to at home, this has been verbalized to staff and confirmed by demonstrates reluctance for hospice given past experiences with hospice and her mother working to finalize plan to honor patient's wishes, attempted to coordinate family meeting however unsuccessful to date #Cardiac pause #Sinus bradycardia noted on telemetry, reports concern and given complicated discharge situation Cardiology consulted discontinued coreg await cards recommendations #Recurrent Glioblastoma: #Dysphagia: -2/2 to resections and glioblastoma -patient is s/p resection plus adjunct radiation, then recurrent resection, now on lomustine for chemotherapy -see above, patient is showing signs of decline, with prognosis on scale of weeks to months -patient does not want aggressive therapies at this time, goal is to stay out of hospital and be comfortable when he leaves -would like optimized this admission as able Plan: -case management and palliative consult for hospice and placement at discharge --- family changing discharge options very frequently making it difficult to predict how to help them. -Pt and family aware of and acceptable of the poor prognosis. -hold lomustine indefinitely -continue decadron 4mg in AM for energy improvement, decreasing cerebral edema -Palliative consulted, appreciate recs. Pending final conversations with /family for dispo planning #Possible CAP: Haziness in the right lung in imaging. Zosyn 05/06. s/p 7 days rx course. # UTI: Noted on urinalysis. Antibiotic as above. #Acute dehydration resolved: secondary to poor PO intake. s/p fluid resuscitation. It is going to worsening w/ progressive GBM dz. IVF if /w poor PO intake. Pressure ulcers of skin of multiple topographic sites/Pressure ulcer of right buttock, stage 3, POA: -2/2 bedbound and overall decline. wound care consult, appreciate recs Other chronic medical conditions: Continue with/resume home meds as and when able. T2DM: Continue with sliding scale insulin. Anxiety: Continue Ativan 3 times daily as needed and sertraline. Dispo: pt has poor prognosis. Family navigating what discharge home in coming days may look like; no discharge today Admission and Anticipated Discharge Date Admission Date: May 06, 2024 Subjective Patient evaluated after being cleaned up alert and oriented but minimal engagement denies any headache, dizziness, chest pain, vision changes Physical Exam Constitutional: kept eyes closed for majority of exam, but responds appropriately Respiratory: dimished 2/2 effort Cardiovascular: regular, bradycardic, no murmur Results & Data Results & Data Vital Signs (Past 12 Hours) Vital Signs Temp Pulse Pulse Pulse Resp BP BP 05/20/24 09:01 61 05/20/24 07:28 36.4 C L 54 L 18 118/70 05/20/24 07:08 57 L 05/20/24 03:27 36.1 C L 54 L 18 120/72 Pulse Ox O2 Del Method 05/20/24 09:01 05/20/24 07:28 94 Room Air 05/20/24 07:08 05/20/24 03:27 94 Room Air Medications Administered Home Medications Medication Instructions Recorded Confirmed Last Taken pantoprazole 40 mg tablet,delayed 40 mg PO QAM 06/18/18 05/06/24 04/17/24 release multivitamin 1 tab PO DAILY 08/21/19 05/06/24 04/17/24 carvedilol 3.125 mg tablet 3.125 mg PO BID 07/31/20 05/06/24 04/17/24 diclofenac sodium 1 % topical gel 2 g topical QID PRN Pain 07/31/20 05/06/24 04/17/24 polyethylene glycol 3350 17 17 g PO DAILY PRN constipation 07/31/20 05/06/24 04/17/24 gram/dose oral powder (Miralax) ergocalciferol (vitamin D2) 10 mcg 10 mcg PO DAILY 07/10/21 05/06/24 04/17/24 (400 unit) tablet sertraline 100 mg tablet (Zoloft) 100 mg PO DAILY 12/27/23 05/06/24 04/17/24 gabapentin 300 mg capsule 300 mg PO TID 03/02/24 05/06/24 04/17/24 levetiracetam 750 mg tablet 750 mg PO UD 03/02/24 05/06/24 04/17/24 magnesium oxide 420 mg tablet 420 mg PO HS 03/02/24 05/06/24 04/17/24 finasteride 5 mg tablet 5 mg PO HS #0 tabs 03/05/24 05/06/24 04/17/24 tamsulosin 0.4 mg capsule 0.4 mg PO HS #0 caps 03/05/24 05/06/24 04/17/24 atorvastatin 80 mg tablet 80 mg PO DAILY 04/10/24 05/06/24 04/17/24 docusate sodium 100 mg tablet 100 mg PO BID PRN Constipation 04/10/24 05/06/24 04/17/24 insulin glargine 100 unit/mL (3 12 unit subcut UD 04/10/24 05/06/24 04/17/24 mL) subcutaneous pen lomustine 40 mg capsule 40 mg PO UD 04/10/24 05/06/24 Unknown lorazepam 0.5 mg tablet 0.5 mg PO TID PRN Anxiety 04/10/24 05/06/24 04/17/24 amlodipine 5 mg tablet (Norvasc) 5 mg PO QAM #30 tabs 04/17/24 05/06/24 04/17/24 Active Medications Generic Name Dose Route Start Last Admin Trade Name Frematthew PRN Reason Stop Dose Admin Acetaminophen 650 mg 05/07/24 10:29 05/20/24 10:07 Acetaminophen Susp 325 Mg/10.15 Ml Udc PO 06/06/24 10:28 650 mg Q4H PRN Administration Pain or Fever Amlodipine Besylate 5 mg 05/07/24 09:00 05/20/24 08:31 Amlodipine Besylate 5 Mg Tab PO 06/06/24 08:59 5 mg QAM ALLEY Administration Atorvastatin Calcium 80 mg 05/07/24 09:00 05/20/24 08:31 Atorvastatin 40 Mg Tab PO 06/06/24 08:59 80 mg DAILY ALLEY Administration Dexamethasone 4 mg 05/08/24 06:30 05/20/24 05:30 Dexamethasone 4 Mg Tab PO 06/07/24 06:29 4 mg DAILYBB ALLEY Administration Finasteride 5 mg 05/06/24 21:00 05/19/24 21:47 Finasteride 5 Mg Tab PO 06/05/24 20:59 5 mg HS ALLEY Administration Gabapentin 300 mg 05/15/24 21:00 05/19/24 21:47 Gabapentin 300 Mg Cap PO 06/14/24 20:59 300 mg HS ALLEY Administration Insulin Aspart 0 units 05/06/24 21:00 05/20/24 09:37 Insulin Aspart Per Unit Charge SC 06/05/24 20:59 Not Given ACHS ALLEY Lansoprazole 30 mg 05/19/24 12:15 05/20/24 08:32 Lansoprazole 30 Mg Soltab PO 06/18/24 12:14 30 mg QAM ALLEY Administration Levetiracetam 750 mg 05/06/24 21:00 05/07/24 09:36 Levetiracetam 250 Mg Tab PO 06/05/24 20:59 750 mg BID ALLEY Administration Levetiracetam 750 mg 05/07/24 21:00 05/20/24 10:07 Levetiracetam 500 Mg/5 Ml Vial 750mg IV 06/06/24 20:59 750 mg BID ALLEY Administration Lidocaine 1 patch 05/07/24 18:15 05/19/24 21:47 Lidocaine 5% 1 Patch TD 06/06/24 18:14 1 patch HS ALLEY Administration Miscellaneous 1 each 05/07/24 21:00 05/19/24 21:49 Remove Lidoderm Patch N/A 06/06/24 20:59 1 each DAILY@2100 ALLEY Administration Multivitamins 1 tab 05/07/24 09:00 05/07/24 09:36 Multivitamin Tab PO 06/06/24 08:59 1 tab QAM ALLEY Administration Multivitamins/Minerals 15 ml 05/08/24 09:00 05/20/24 08:32 Multi Vit W/Minerals Liquid 15 Ml Udc PO 06/07/24 08:59 15 ml QAM ALLEY Administration Nystatin 1 appln 05/10/24 11:04 05/13/24 08:47 Nystatin Powder 15gm Btl EXT 06/09/24 11:03 1 appln BID PRN Administration skin fungal infection Ondansetron HCl 4 mg 05/06/24 19:10 05/11/24 09:39 Ondansetron Inj 2 Mg/Ml 2 Ml Vial IV 06/05/24 19:09 4 mg Q6H PRN Administration Nausea Sertraline HCl 100 mg 05/07/24 09:00 05/20/24 08:33 Sertraline Hcl 100 Mg Tablet PO 06/06/24 08:59 100 mg DAILY ALLEY Administration Tamsulosin HCl 0.4 mg 05/06/24 21:00 05/19/24 21:47 Tamsulosin Hcl 0.4 Mg Cap PO 06/05/24 20:59 0.4 mg HS ALLEY Administration
--- NOTE | 2024-05-20 12:46 | Cardiology Consultation ---
<Statement entered by Lis Avina, - 05/20/24 14:25> I have reviewed the advanced practitioner's documentation and agree with the plan of care. I accept the responsibility for the associated risk. pt seen in cardiology consultation due to pause and intermittent 2nd degree AV block; asymptomatic pt has advance glioblastoma and is considering hospice discussed options of doing nothing vs a pacemaker; pt does not want any procedures at this juncture which i think is reasonable given his advanced cancer and he was not symptomatic with the bradycardia I would consider taking pt off telemetry since he declines any procedures please reconsult as necessary Date of Consultation May 20, 2024 Assessment & Plan (1) Mobitz (type) I (Wenckebach's) atrioventricular block: (2) Mobitz (type) II atrioventricular block: (3) Sinus pause: (4) Recurrent brain tumor: Plan 73-year-old male seen at the request of as well as [facility] service after patient was noted to have a transient episode of Mobitz type I and probably Mobitz type II second-degree AV block with two pauses on 05/20/2024 at 9:43:28, the longest of which lasted 3.7-seconds in duration. Low dose carvedilol (3.125 mg BID) discontinued. Options of management discussed. Causes of bradycardia, heart block, pauses reviewed. Further evaluation of underlying cause(s) as well as treatment options discussed including permanent pacemaker implantation, all of which were declined by the patient. Multiple times patient stated "no more, no surgeries." Proceeding with appropriate end of life measures appears more appropriate. History of Present Illness Reason for Consultation: Pauses Requesting Physician: Dr. Trang Russell MD Attending Physician: Dr. Trang Russell MD History of Present Illness Mr. Denis Hester is a pleasant 73-year-old male [place] with agent orange exposure and history of recurrent glioblastoma. Patient rehospitalized at [facility] on May 06, 2024 after presenting to the ER via ambulance with main complaint of weakness, difficulty with oral intake, generalized decline and inability to be cared for at home. Case Management has been consulted for hospice and placement at discharge. This (05/20/2024) morning patient was noted to have Mobitz type I and type II second-degree AV block on telemetry as well as a 3.7-second pause at 9:43:28. Cardiology consultation requested by and [facility] service. Patient resting comfortably. No family members at bedside. It does not appear that the patient had any symptoms with the above. He denies dizziness, syncope, chest pain, palpitations, or unusual shortness of breath. Allergies Allergy/AdvReac Type Severity Reaction Status Date / Time erythromycin base AdvReac Unknown nausea/vomi Verified 12/11/21 09:20 ting Home Medications Medication Instructions Recorded Confirmed Type pantoprazole 40 mg tablet,delayed 40 mg PO QAM 06/18/18 05/06/24 History release multivitamin 1 tab PO DAILY 08/21/19 05/06/24 History carvedilol 3.125 mg tablet 3.125 mg PO BID 07/31/20 05/06/24 History diclofenac sodium 1 % topical gel 2 g topical QID PRN Pain 07/31/20 05/06/24 History polyethylene glycol 3350 17 17 g PO DAILY PRN constipation 07/31/20 05/06/24 History gram/dose oral powder (Miralax) ergocalciferol (vitamin D2) 10 mcg 10 mcg PO DAILY 07/10/21 05/06/24 History (400 unit) tablet sertraline 100 mg tablet (Zoloft) 100 mg PO DAILY 12/27/23 05/06/24 History gabapentin 300 mg capsule 300 mg PO TID 03/02/24 05/06/24 History levetiracetam 750 mg tablet 750 mg PO UD 03/02/24 05/06/24 History magnesium oxide 420 mg tablet 420 mg PO HS 03/02/24 05/06/24 History finasteride 5 mg tablet 5 mg PO HS #0 tabs 03/05/24 05/06/24 Rx tamsulosin 0.4 mg capsule 0.4 mg PO HS #0 caps 03/05/24 05/06/24 Rx atorvastatin 80 mg tablet 80 mg PO DAILY 04/10/24 05/06/24 History docusate sodium 100 mg tablet 100 mg PO BID PRN Constipation 04/10/24 05/06/24 History insulin glargine 100 unit/mL (3 12 unit subcut UD 04/10/24 05/06/24 History mL) subcutaneous pen lomustine 40 mg capsule 40 mg PO UD 04/10/24 05/06/24 History lorazepam 0.5 mg tablet 0.5 mg PO TID PRN Anxiety 04/10/24 05/06/24 History amlodipine 5 mg tablet (Norvasc) 5 mg PO QAM #30 tabs 04/17/24 05/06/24 Rx Patient History Medical History Diabetes Pulmonary hypertension Steroid-induced hyperglycemia Insomnia BPH (benign prostatic hyperplasia) Degenerative disc disease Severe protein-calorie malnutrition Fatigue Acute metabolic encephalopathy DVT prophylaxis Acute alteration in mental status History of pulmonary embolism Seizure History of agent [place] exposure Anxiety Acute deep vein thrombosis (DVT) of left lower extremity Elevated beta-hydroxybutyrate Elevated AST (SGOT) Hyperglycemia due to type 2 diabetes mellitus Acute pulmonary embolism BPH (benign prostatic hyperplasia) Barretts esophagus DM type 2 (diabetes mellitus, type 2) Surgical History H/O prostate biopsy S/P brain surgery History of cataract surgery LEFT History of anesthesia reaction REMOTE HX - WITH ONE SURGERY (PT UNSURE WHAT SURGERY) - SLEPT FOR 2 DAYS AFTER, NO -RE-OCCURENCE History of endoscopy History of colonoscopy History of foot surgery L History of tonsillectomy and adenoidectomy H/O shoulder surgery R X 2 - MOST RECENT: DEC 2018 Family History Father , 72yo Diabetes Hypertension Sister Cancer Brain tumor 42yo Mother , 80yo Myocardial infarction Son No problems noted. Son No problems noted. 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 Results & Data Vital Signs (Past 12 Hours) Vital Signs Temp Pulse Pulse Pulse Resp BP BP 05/20/24 11:49 36.4 C L 60 18 99/60 L 05/20/24 09:01 61 05/20/24 07:28 36.4 C L 54 L 18 118/70 05/20/24 07:08 57 L 05/20/24 03:27 36.1 C L 54 L 18 120/72 Pulse Ox O2 Del Method 05/20/24 11:49 94 Room Air 05/20/24 09:01 05/20/24 07:28 94 Room Air 05/20/24 07:08 05/20/24 03:27 94 Room Air Laboratory Results Intake and Output 05/19/24 05/20/24 05/20/24 22:59 06:59 14:59 Intake Total 100 / 340 250 / 250 Output Total 225 / 625 10 10 Balance -125 / -285 240 / 240 Intake: Oral 100 / 340 250 / 250 Output: Urine 10 Urine Amount (Catheter) 225 / 225 External 225 / 225 Other: # Unmeasured Voids 1 Weight 81.1 kg Weight Measurement Method Built in [facility] Diagnostic Findings Last available resting echocardiogram was performed on June 09, 2020, demonstrating the following: Normal LV chamber size with mild concentric LVH Normal LV systolic function without regional wall motion abnormalities, ejection fraction 50 to 55% Grade 1 diastolic dysfunction Aortic valve sclerosis mild, without significant aortic valve stenosis A small PFO is present Injection of contrast documented an interatrial shunt Continuous telemetry personally reviewed. This morning there is transient Mobitz type I and Mobitz type II second-degree AV block. There was a 3.7-second pause at 9:43:28 followed shortly thereafter by a 2-second pause. Current rate and rhythm is sinus bradycardia at 56 bpm. Frequent premature ventricular complexes noted.
--- NOTE | 2024-05-21 11:14 | Hospitalist Progress Note ---
Date of Service May 21, 2024 Assessment & Plan (1) Glioblastoma: Plan Mr. Lam is a 73 yo male with pmhx of glioblastoma s/p surgical resection in 2020, with recurrence glioblastoma and s/p surgery 01/31/24 at [facility], history seizure with first glioblastoma without any recurrent seizures, HTN, dyslipidemia, history DVT/PE, anticoagulated on Xarelto, DM II, pulmonary hypertension, PTSD, depression, GERD, BPH presented to ER with weakness. Per inpatient chart review history of [facility] hospitalization 03/02/2024-03/05/2024 for weakness, [facility]OPEZA and recurrent [facility] hospitalization 04/11/24-04/17/24 for weakness, recent hospitalization for similar concerns on 04/27-05/03. Group discussion with Case management and son, Ulysses, was had for 30 minutes. Ultimately, Ulysses wishes to bring patient home--hesitant to state palliative v hospice at this time, but the goal was stated to prioritize quality of life and to get patient home on 05/17. No events from the 05/17 onward until 05/20 when monitor noted signs concerning for cardiac pause and questionable block. Cardiology to review and aid in discussion. Discussed with on phone that patient is likely no candidate for any intervention to any degree. Expressed to that patient continues to exp ress wish to at home and that if we continue to keep ongoing medical efforts, patient will not get his wish for end of life. It was also verbalized understanding and requests call back at later time in day. Attempted to discharge to Home hospice today but and son do not agree with discharge plan. Will work to coordinate transition to CUSTOMER ACCOUNT COORDINATOR as patient is rapidly declining. #Goals of care continue discussion about patient's wishes and final dispo plans patient wishes to at home, this has been verbalized to staff and confirmed by demonstrates reluctance for hospice given past experiences with hospice and her mother working to finalize plan to honor patient's wishes, attempted to coordinate family meeting however unsuccessful to date #Cardiac pause #Sinus bradycardia noted on telemetry, reports concern and given complicated discharge situation Cardiology consulted discontinued coreg no further interventions #Recurrent Glioblastoma: #Dysphagia: -2/2 to resections and glioblastoma -patient is s/p resection plus adjunct radiation, then recurrent resection, now on lomustine for chemotherapy -see above, patient is showing signs of decline, with prognosis on scale of weeks to months -patient does not want aggressive therapies at this time, goal is to stay out of hospital and be comfortable when he leaves -would like optimized this admission as able Plan: -case management and palliative consult for hospice and placement at discharge --- family changing discharge options very frequently making it difficult to predict how to help them. -Pt and family aware of and acceptable of the poor prognosis. -hold lomustine indefinitely -continue decadron 4mg in AM for energy improvement, decreasing cerebral edema -Palliative consulted, appreciate recs. Pending final conversations with /family for dispo planning #Possible CAP: Haziness in the right lung in imaging. Zosyn 05/06. s/p 7 days rx course. # UTI: Noted on urinalysis. Antibiotic as above. #Acute dehydration resolved: secondary to poor PO intake. s/p fluid resuscitation. It is going to worsening w/ progressive GBM dz. IVF if /w poor PO intake. Pressure ulcers of skin of multiple topographic sites/Pressure ulcer of right buttock, stage 3, POA: -2/2 bedbound and overall decline. wound care consult, appreciate recs Other chronic medical conditions: Continue with/resume home meds as and when able. T2DM: Continue with sliding scale insulin. Anxiety: Continue Ativan 3 times daily as needed and sertraline. Dispo: pt has poor prognosis. will work to transition to comfort measures Admission and Anticipated Discharge Date Admission Date: May 06, 2024 Subjective fatigued, awake, but lethargic denies any concerns, but did not vocalize--just nodded Physical Exam Constitutional: extremely lethargic Respiratory: diminshed Cardiovascular: bradycardic Results & Data Results & Data Vital Signs (Past 12 Hours) Vital Signs Temp Pulse Pulse Resp BP Pulse Ox O2 Del Method 05/21/24 09:56 Room Air 05/21/24 07:23 36.9 C 59 L 18 155/67 H 97 Room Air 05/21/24 07:21 64 05/21/24 03:46 36.5 C 54 L 16 112/62 93 Room Air 05/20/24 23:32 36.5 C 62 16 117/66 93 Room Air
--- NOTE | 2024-05-21 14:23 | Communication Note ---
Date of Service: May 21, 2024 60 minutes spent at bedside with Aimee, 2 sons, 1 daughter, and daughter in law. Discussed that patient wishes to go home. To facilitate home, patient would best be a candidate for hospice. Discussed how fluid and antibiotics at end of life often do not ease suffering, but can contribute. Discussed how patient also now has heart block and cardiac pauses--which complicate his prognosis as well. Patient verbalized desire to go home. Explained patient is not eating or drinking on his own and that further nutrition/hydration should be patient driven rather than artificial Family seemingly in agreement that hospice is appropriate. Received consensus that extraneous medications can be discontinued. Plan to continue sertraline, decardron, gabapentin, and keppra. will discontinue surveillance system monitor
[2024-05-22 07:32] VITALS: RESP 18; TEMP 97.5; O2SAT 95
--- NOTE | 2024-05-22 09:13 | Discharge Summary ---
Discharge Summary Date of Service May 22, 2024 Principal Dx & Hospital Course #1 = Principal Diagnosis (1) Glioblastoma: Plan Mr. Lam is a 73 yo male with pmhx of glioblastoma s/p surgical resection in 2020, with recurrence glioblastoma and s/p surgery 01/31/24 at [facility], history seizure with first glioblastoma without any recurrent seizures, HTN, dyslipidemia, history DVT/PE, anticoagulated on Xarelto, DM II, pulmonary hypertension, PTSD, depression, GERD, BPH presented to ER with weakness. Per inpatient chart review history of [facility] hospitalization 03/02/2024-03/05/2024 for weakness, [facility] and recurrent [facility] hospitalization 04/11/24-04/17/24 for weakness, recent hospitalization for similar concerns on 04/27-05/03. Group discussion with Case management and son, Ulysses, was had for 30 minutes. Ultimately, Ulysses wishes to bring patient home--hesitant to state palliative v hospice at this time, but the goal was stated to prioritize quality of life and to get patient home on 05/17. No events from the 05/17 onward until 05/20 when monitor noted signs concerning for cardiac pause and questionable block. Cardiology to review and aid in discussion. Discussed with on phone that patient is likely no candidate for any intervention to any degree. Expressed to that patient continues to express wish to at home and that if we continue to keep ongoing medical efforts, patient will not get his wish for end of life. 05/22, there was a prolonged discussion with sons/, and ultimately it was agreed upon that patient was appropriate for hospice. On 05/23, patient was weak and lethargic, however, no increased prns necessary. Discharged with home hospice. #Goals of care continue discussion about patient's wishes and final dispo plans patient wishes to at home, this has been verbalized to staff and confirmed by #Cardiac pause #Sinus bradycardia noted on telemetry, reports concern and given complicated discharge situation Cardiology consulted discontinued coreg no further interventions #Recurrent Glioblastoma: #Dysphagia: -2/2 to resections and glioblastoma -patient is s/p resection plus adjunct radiation, then recurrent resection, now on lomustine for chemotherapy -see above, patient is showing signs of decline, with prognosis on scale of wee ks to months -patient does not want aggressive therapies at this time, goal is to stay out of hospital and be comfortable when he leaves -would like optimized this admission as able Plan: -case management and palliative consult for hospice and placement at discharge --- family changing discharge options very frequently making it difficult to predict how to help them. -Pt and family aware of and acceptable of the poor prognosis. -hold lomustine indefinitely -continue decadron 4mg in AM for energy improvement, decreasing cerebral edema #Possible CAP: Haziness in the right lung in imaging. Zosyn 05/06. s/p 7 days rx course. # UTI: Noted on urinalysis. Antibiotic as above. #Acute dehydration resolved: secondary to poor PO intake. s/p fluid resuscitation. It is going to worsening w/ progressive GBM dz. IVF if /w poor PO intake. Pressure ulcers of skin of multiple topographic sites/Pressure ulcer of right buttock, stage 3, POA: -2/2 bedbound and overall decline. wound care consult, appreciate recs Notes For Next Care Provider Medication Changes From Visit Discontinue antihypertensives Discontinued statin Discontinued finasteride/tamsulosin Started Decardon 4mg Admission HPI Per Admitting Provider 73 yo male with pmhx of glioblastoma s/p surgical resection in 2020, with recurrence glioblastoma and s/p surgery 01/31/24 at [facility], history seizure with first glioblastoma without any recurrent seizures, HTN, dyslipidemia, history DVT/PE, anticoagulated on Xarelto, DM II, pulmonary hypertension, PTSD, depression, GERD, BPH presented to ER with weakness. Per inpatient chart review history of [facility] hospitalization 03/02/2024-03/05/2024 for weakness, [facility] and recurrent [facility] hospitalization 04/11/24-04/17/24 for weakness, recent hospitalization for similar concerns on 04/27-05/03. patient seen and examined at bedside. , son, daughter and grandchildren at bedside as well. Patient is doing okay today. Since discharge, he has been having difficulty with oral intake, and 's been having difficulties meeting his care needs at home. PT OT and home health aide have not been sufficient to help with needs. Patient has been struggling to swallow, choking on many bites and not having sufficient oral intake. He has been having some tremor in his right hand and arm. [facility] hour was spent discussing goals and values with patient, , children, grandchildren. We started off the the meeting by introducing ourselves and our role in the care team and in the family. A long discussion occurred in regards to his glioblastoma treatment, briefly described here as initial surgery and radiation with what appears to be a sustained remission for several years, with recurrent surgical intervention for recurrent glioblastoma this past January. This was not followed with radiation. Currently on boosting as a chemotherapy agent for adjunct treatment for recurrent resistant glioblastoma. I took time to discuss the standard of care for glioblastoma, which includes the above and consideration for immunotherapy to help reduce brain inflammation and swelling postsurgery and radiation. Discussed that glioblastoma is an extremely difficult disease, in which patient has long outlived the expected prognosis which is on the scale of 12 to 18 months, usually no further than 24 months with surgery and radiation. We discussed the patient's recurrent hospitalizations and worsening weakness. we discussed the patient's ongoing decline, including having more difficulty swa llowing both solids and liquids, and frequent readmissions. When asked about prognosis, I discussed given that the decline has occurred over matter a weeks, patient is having difficulty swallowing, understanding that feeding tubes do not and improve prognosis and terminal cancer, worsening left-sided weakness, worsening deficits, prognosis is likely on the scale of weeks, likely not further than months. 3 care options were offered to the patient and family. 1 care option is to pursue all medical therapies and keep returning to the hospital. Another care path is to do what we can during this hospitalization with a discharged to comfort focused care and hospice. Last option is to focus on comfort at this time. Hospice was explained at length. Risks and benefits of hospice were explained. CODE STATUS was also discussed at length risk and benefits were explained at length. Patient indicates that his family is the most important thing to him and spending time with family. He indicates he would not want to return to the hospital. Given that the most important thing to him is family, and given the poor prognosis, I recommended doing what we can do to optimize his condition this admission with discharge to a [place] [facility] facility with hospice on board to focus on comfort would be reasonable. Family agrees that this would be reasonable, and patient states that this is what he wants. We also discussed resuscitation, patient saying he would not want aggressive measures taken. Therefore patient is DNR/DNI, optimizing his condition during this hospitalization, with discharge to a facility with hospice services and focus on comfort. Admission Exam Per Admitting Provider Exam: Gen: A&O 3 NAD HEENT: NCAT, EOMI, not icteric. External ears normal. No rhinorrhea. dry mucous membranes. Noted chronic facial droop Neck: Supple, full range of motion, no observable masses, No meningeal sign. Lungs: rhonchi in RLL, RML CV: RRR, no edema. Abdomen: Soft, nondistended, No rebound tenderness. MSK: No joint swelling, no redness. Skin: No rashes, petechiae, lesions. Normal color per patient. Neuro: chronic left sided deficits noted Psych: Appropriate for situation. Discharge Exam Constitutional lethargic weak Respiratory diminshed Cardiovascular bradycardic Gastrointestinal (Abdomen) normal bowel sounds, soft, nontender, no hepatosplenomegaly Updated Medication List Medication Instructions Recorded Confirmed Type pantoprazole 40 mg tablet,delayed 40 mg PO QAM 06/18/18 05/06/24 History release polyethylene glycol 3350 17 17 g PO DAILY PRN constipation 07/31/20 05/06/24 History gram/dose oral powder (Miralax) sertraline 100 mg tablet (Zoloft) 100 mg PO DAILY 12/27/23 05/06/24 History gabapentin 300 mg capsule 300 mg PO TID 03/02/24 05/06/24 History levetiracetam 750 mg tablet 750 mg PO UD 03/02/24 05/06/24 History magnesium oxide 420 mg tablet 420 mg PO HS 03/02/24 05/06/24 History docusate sodium 100 mg tablet 100 mg PO BID PRN Constipation 04/10/24 05/06/24 History lomustine 40 mg capsule 40 mg PO UD 04/10/24 05/06/24 History lorazepam 0.5 mg tablet 0.5 mg PO TID PRN Anxiety 04/10/24 05/06/24 History dexamethasone 4 mg tablet 4 mg PO DAILYBB 30 days #30 tabs 05/21/24 Rx Hospital Stay Data Consultations 05/06/24 13:50 ED Decision to Admit Stat 05/09/24 16:19 Consult Palliative Care Routine 05/20/24 09:56 Consult Cardiology Routine Pending Results Patient Have Any Pending Studies at Discharge: No Discharge Instructions Given to Patient (Per Discharging Provider) You were admitted for dehydration and treated for pneumonia and UTI. Ultimately, given progressive weakness and wishes to return home, you were discharged with plans for home hospice To minimize pill burden due to swallowing difficulty, please consider disco ntinuing blood pressure medications and cholesterol medications. Dexamethsone was added to aid in pain management and swelling around tumor burden. Hospice will follow closely. Total Time Total Time Spent Total Time Spent (In Minutes): 35
[2024-05-22 09:27] VITALS: BP 145/77; PULSE 60
--- NOTE | 2024-05-23 16:02 | Electrocardiogram Report ---
Test Reason : Blood Pressure : */* mmHG Vent. Rate : 53 BPM Atrial Rate : 53 BPM P-R Int : 230 ms QRS Dur : 98 ms QT Int : 500 ms P-R-T Axes : 44 16 26 degrees QTcB Int : 469 ms Sinus bradycardia with 1st degree A-V block Possible Inferior infarct , age undetermined Abnormal ECG When compared with ECG of 06-May-2024 12:27, NM interval has increased Vent. rate has decreased by 29 bpm Confirmed by Clifford Crenshaw ([id number]) on 05/23/2024 4:02:28 PM Referred By: REFERRED SELF Confirmed By: Clifford Crenshaw
== END 2024-05-22 10:45 | disposition hospice, home (50) | DRG 54 ==
LOC: ED 12:13 → SUATTDRO 17:00 → 2W 17:00